=== PATIENT | female | born 1955 | race Caucasian/White ===

== ENCOUNTER 2017-08-18 11:45 | Emergency (ER) | payer OTHER ==
--- OUTSIDE RECORDS SUMMARY | 2017-08-18 11:47 | XMS REPORT | Clinical Summary ---
:1955 Author Organization [facility] Address [address] [place] [address] Care Team Providers Name Role Phone Rob Alonzo MD Primary Care Provider Allergies Active Allergy Reactions Severity Noted Date Comments Morphine 01/16/2016 Diazepam 01/16/2016 Midazolam 01/16/2016 Current Medications Prescription Sig. Disp. Refills Start End Date Status Date omeprazole (PriLOSEC) 20 Take by 3 Active MG capsule mouth once 6 daily. PREMARIN 0.3 mg tablet Take 0.3 mg 3 Active by mouth 6 once daily. clorazepate (TRANXENE) TAKE 1 1 Active 7.5 MG tablet TABLET EVERY 6 DAY NEEDED FOR ANXIETY3 linaclotide (LINZESS) Take 290 mcg Active 290 mcg capsule by mouth daily. magnesium oxide (MAG-OX) Take 400 mg Active 400 mg tablet by mouth daily. ascorbic acid, vitamin Take 1,500 Active C, (vitamin C) 100 MG mg by mouth tablet daily. omega-3 fatty acids Take 300 mg Active (FISH OIL) 300 mg by mouth capsule daily. CHOLECALCIFEROL, VITAMIN Take 2,000 Active D3, (D3-2000 ORAL) Units by mouth daily. multivitamin with Take 1 Active minerals tablet tablet by mouth daily. hydroCHLOROthiazide Take 12.5 mg 3 Active (HYDRODIURIL) 12.5 MG by mouth 7 tablet once daily. potassium chloride Take 10 mEq 0 Active (K-DUR,KLOR-CON) 10 MEQ by mouth 7 CR tablet daily. traMADol (ULTRAM) 50 mg Take 50 mg 1 Active tablet by mouth 2 7 (two) times a day as needed. CREON 12,000-38,000 TAKE ONE 270 capsule 2 Active -60,000 unit CAPSULE BY 8 capsule,delayed MOUTH 3 release(DR/EC) capsule TIMES A DAY WITH A MEAL pancrelipase, Take 1 270 capsule 3 10/12/19 [id number], capsule by 7 17 (CREON) 12,000-38,000 mouth 3 -60,000 unit (three) capsule,delayed times a day release(DR/EC) capsule with meals for 90 days. SUPREP BOWEL PREP KIT 1 bottle at 2 Bottle 0 04/14/20 Discontinued 17.5-3.13-1.6 gram recon 6PM, 1 7 17 soln bottle at 12AM (midnight) ondansetron (ZOFRAN) 4 Take 1 60 tablet 1 02/11/20 MG tablet tablet (4 mg 7 17 total) by mouth every 8 (eight) hours as needed for nausea or vomiting for up to 30 days. cholestyramine Take 1 05/24/19 Discontinued (QUESTRAN) 4 gram packet packet by 18 mouth as needed. chlordiazepoxide-clidini Take 1 60 capsule 0 06/23/19 um (LIBRAX, WITH capsule by 8 18 CLIDINIUM,) 5-2.5 mg per mouth 2 capsule (two) times a day for 30 days. Active Problems Problem Noted Date Right upper quadrant pain 07/26/2017 Left upper quadrant pain 07/26/2017 Epigastric pain 07/26/2017 Slow transit constipation 07/26/2017 History of cholecystectomy 07/26/2017 Essential hypertension 07/26/2017 Splenic artery aneurysm 07/26/2017 Anxiety 07/26/2017 Encounters Date Type Specialty Care Team Description 08/01/2017 Refill Gastroenterology Ky De Guzman MD 07/28/2017 Hospital Radiology Jose Heath Slow transit constipation; Encounter MD Diane Right upper quadrant pain; Left upper quadrant pain; Epigastric pain 07/26/2017 Lab Lab Jose Heath Slow transit constipation; MD Diane Right upper quadrant pain; Left upper quadrant pain; Epigastric pain 07/26/2017 Office Visit Gastroenterology Jose Heath Slow transit constipation (Primary Dx); MD Diane Right upper quadrant pain; Left upper quadrant pain; Epigastric pain; History of cholecystectomy; Splenic artery aneurysm 05/24/2017 Office Visit Gastroenterology Gege, Adenomatous polyp of colon, unspecified part of colon (Primary Dx); Ky Contreras MD Family history of colon cancer; Diverticulosis of large intestine without hemorrhage; Epigastric pain; Pancreatitis, recurrent; Splenic artery aneurysm; Essential hypertension; Nonulcer dyspepsia; Slow transit constipation; Calculus of gallbladder without cholecystitis without obstruction 05/13/2017 Telephone Gastroenterology Linnea Olguin MA 05/06/2017 Telephone Gastroenterology Ky De Guzman MD 05/05/2017 Telephone Gastroenterology Linnea Olguin MA 04/14/2017 Office Visit Gastroenterology Gege, Splenic artery aneurysm ( Primary Dx); Ky Contreras MD Slow transit constipation; Gastroesophageal reflux disease, esophagitis presence not specified; Essential hypertension; History of colon polyps; History of pancreatitis; Family history of colon cancer; Calculus of gallbladder without cholecystitis without obstruction 04/13/2017 Telephone Gastroenterology Doris Haas RN 01/11/2017 Office Visit Gastroenterology [place], Colon polyp (Primary Dx); Ky Contreras MD Calculus of gallbladder without cholecystitis without obstruction; Essential hypertension; Family history of colon cancer; Idiopathic acute pancreatitis without infection or necrosis; Dyspepsia after 08/17/2016 Family History Medical History Relation Name Comments Liver cancer Father Alona Kwong Liver disease Father Alona Kwong Lung cancer Father Alona Colon cancer Mother Herminia Ovarian cancer Mother Herminia Stomach cancer Mother Herminia Kwong Relation Name Status Comments Father Alona Hope Social History Tobacco Use Types Packs/Day Years Used Date Never Smoker Smokeless Tobacco: Never Used Alcohol Use Drinks/Week oz/Week Comments No Sex Assigned at Date Recorded Not on file Last Filed Vital Signs Vital Sign Reading Time Taken Blood Pressure 137/71 05/24/2017 3:23 PM [employer]LTRY [employer]TER Pulse 63 05/24/2017 3:23 PM [employer]OUL[employer] Temperature 36.6 C (97.8 F) 01/11/2017 11:04 AM CDT Respiratory Rate - - Oxygen Saturation - - Inhaled Oxygen Concentration - - Weight 69.9 kg (154 lb) 07/28/2017 12:04 PM CDT Height 167.6 cm (5' 6") 07/28/2017 12:04 PM CDT Body Mass Index 24.86 07/28/2017 12:04 PM CDT Plan of Treatment Date Type Specialty Care Team Description 08/30/2017 Office Visit Gastroenterology Jose Heath MD [address] [facility] [address] [place] [address] Health Maintenance Due Date Last Done Comments PAP SMEAR 1974 COLONOSCOPY 12/10/2003 MAMMOGRAM 12/10/2003 ZOSTER VACCINE 2013 INFLUENZA VACCINE 12/01/[address] Enterography (07/28/2017 1:16 PM) [facility]imen [facility] [address] [place] [address] Narrative EXAMINATION:CT ENTEROGRAPHY CLINICAL HISTORY:K59.01 Slow transit constipation, R10.11 Right upper quadrant pain, abdominal painanorexia and weight loss TECHNIQUE: Multiple axial images of the abdomen and pelvis were obtained during intravenous administration of iodinated contrast. Low density oral contrast was administered (CT enterography protocol). Sagittal and coronal computerized reformatted images were also obtained. Radiation dose reduction technique was utilized. COMPARISON:None. FINDINGS: Abdomen: 1. Bowel loops are not dilated. No areas of bowel wall thickening or abnormal enhancement noted. No extraluminal fluid collections or significant inflammatory changes identified. 2.There has been a cholecystectomy. No focal lesions are noted in the liver , spleen, pancreas, kidneys, or adrenal glands. 3.The abdominal aorta is of normal caliber. There are no enlarged retroperitoneal lymph nodes. Pelvis: 1. No mass, fluid collection, or adenopathy isn't 5 the pelvis. 2.There are no CT findings of acute diverticulitis. IMPRESSION: Unremarkable CT enterography examination. [facility]-[id number] Procedure Note Interface, Radiology Results Incoming - 07/28/2017 3:19 PM CDT EXAMINATION: CT ENTEROGRAPHY CLINICAL HISTORY: K59.01 Slow transit constipation, R10.11 Right upper quadrant pain, abdominal pain anorexia and weight loss TECHNIQUE: Multiple axial images of the abdomen and pelvis were obtained during intravenous administration of iodinated contrast. Low density oral contrast was administered (CT enterography protocol). Sagittal and coronal computerized reformatted images were also obtained. Radiation dose reduction technique was utilized. COMPARISON: None. FINDINGS: Abdomen: 1. Bowel loops are not dilated. No areas of bowel wall thickening or abnormal enhancement noted. No extraluminal fluid collections or significant inflammatory changes identified. 2. There has been a cholecystectomy. No focal lesions are noted in the liver, spleen, pancreas, kidneys, or adrenal glands. 3. The abdominal aorta is of normal caliber. There are no enlarged retroperitoneal lymph nodes. Pelvis: 1. No mass, fluid collection, or adenopathy isn't 5 the pelvis. 2. There are no CT findings of acute diverticulitis. IMPRESSION: Unremarkable CT enterography examination. [facility]-[id number] CBC with platelet and differential (07/26/2017 11:59 AM) Component Value Ref Range WBC 6.4 3.8 - 10.8 Thousand/uL RBC 4.63 3.80 - 5.10 Million/uL HGB 14.4 11.7 - 15.5 g/dL HCT 42.7 35.0 - 45.0 % MCV 92.2 80.0 - 100.0 fL MCH 31.1 27.0 - 33.0 pg MCHC 33.7 32.0 - 36.0 g/dL RDW 12.0 11.0 - 15.0 % Platelet count 305 140 - 400 Thousand/uL MPV 10.1 7.5 - 12.5 fL Neutrophils, absolute 3,334 1,500 - 7,800 cells/uL Lymphocytes, absolute 2,502 850 - 3,900 cells/uL Monocytes, absolute 493 200 - 950 cells/uL Eosinophils, absolute 38 15 - 500 cells/uL Basophils, absolute 32 0 - 200 cells/uL Neutrophils 52.1 % Lymphocytes 39.1 % Monocytes 7.7 % Eosinophils 0.6 % Basophils + RC 0.5 % Specimen Performing Laboratory [facility] CRP high sensitivity (07/26/2017 11:59 AM) Component Value Ref Range CRP, high sensitivity 7.4 (H) mg/L Comment: Higher relative cardiovascular risk according to AHA/CDC guidelines. Consider retesting in 1 to 2 weeks to exclude a benign transient elevation in the baseline CRP value secondary to infection or inflammation. For ages >17 Years: hs-CRP mg/LRisk According to AHA/CDC Guidelines <1.0 Lower relative cardiovascular risk. 1.0-3.0Average relative cardiovascular risk. 3.1-10.0 Higher relative cardiovascular risk. Consider retesting in 1 to 2 weeks to exclude a benign transient elevation in the baseline CRP value secondary to infection or inflammation. >10.0Persistent elevation, upon retesting, may be associated with infection and inflammation. Specimen Performing Laboratory [facility] Comprehensive metabolic panel (07/26/2017 11:59 AM) Component Value Ref Range Glucose 90 65 - 99 mg/dL Comment: Fasting reference interval BUN, whole blood 20 7 - 25 mg/dL Creatinine 0.89 0.50 - 0.99 mg/dL Comment: For patients >49 years of age, the reference limit for Creatinine is approximately 13% higher for people identified as -[place]. EGFR Non-Afr. [place] 69 > OR=60 mL/min/1.73m2 EGFR 80 > OR=60 mL/min/1.73m2 BUN/creatinine ratio NOT APPLICABLE 6 - 22 (calc) Sodium 141 135 - 146 mmol/L Potassium 4.7 3.5 - 5.3 mmol/L Chloride 101 98 - 110 mmol/L CO2 31 20 - 31 mmol/L Calcium 9.8 8.6 - 10.4 mg/dL Protein 7.6 6.1 - 8.1 g/dL Albumin, S 4.7 3.6 - 5.1 g/dL Globulin, total 2.9 1.9 - 3.7 g/dL (calc) Albumin/globulin ratio 1.6 1.0 - 2.5 (calc) Total bilirubin 0.5 0.2 - 1.2 mg/dL Alkaline phosphatase 96 33 - 130 U/L AST 14 10 - 35 U/L ALT 12 6 - 29 U/L Specimen Performing Laboratory [facility] after 08/17/2016 Insurance Payer Benefit Plan / Group Subscriber ID Type Phone Address [facility] xxxxxxxxxxx O Home: [address] [phone] [place], [place] [id number]
[2017-08-18] MEDS ORDERED: FENTANYL CITR 100 MCG/2 ML ONE ×2 (12:40→14:42)
[2017-08-18] MEDS ORDERED: ONDANSETRON 4 MG/2 ML VIAL ONE (12:41)
[2017-08-18 12:56] LABS: Absolute Lymphocytes (CBC) 1.9 K/uL (0.7-4.9); Absolute Monocytes 0.5 K/uL (0.1-1.3); Absolute Neutrophil 3.6 K/uL (1.8-8.0); Basophils % 1.5 % (0-1.3); Eosinophils % 0.5 % (0-4.4); Hematocrit 41.8 % (36.0-45.0); Lymphocytes % 31.2 % (15.3-44.8); MPV 8.7 fL (7.6-11.3); Monocytes % 7.9 % (3.3-12.3); RBC Red Blood Cell Count 4.65 M/uL (3.86-4.86)
[2017-08-18 13:07] LABS: Potassium 3.7 mEq/L (3.6-5.0)
[2017-08-18 13:13] LABS: Albumin 4.5 g/dL (3.2-5.5); Bilirubin Direct 0.1 mg/dL (0-0.2); Bilirubin Total 0.7 mg/dL (0.3-1.2)
--- NOTE | 2017-08-18 16:00 | RAD REPORT ---
EXAM DESCRIPTION: CT - Abdomen Pelvis W Contrast - 08/18/2017 3:32 pm CLINICAL HISTORY: Abdominal pain, fever COMPARISON: April 2017 TECHNIQUE: Biphasic, helical CT imaging of the abdomen and pelvis was performed following 100 ml non -ionic IV contrast. Oral contrast was given. All CT scans are performed using dose optimization technique as appropriate and may include automated exposure control or mA/KV adjustment according to patient size. FINDINGS: No suspicious findings in the lung bases. The liver, spleen, and pancreas show no suspicious findings. Liver shows a mild fatty infiltration pa ttern similar to April study. Cholecystectomy clips are present. No biliary tree dilatation. Symmetric renal function is seen with no hydronephrosis or suspicious renal mass. No pyelonephritis o r acute renal parenchymal process. No acute findings seen in a contracted urinary bladder. Uterus is absent. Ovaries are absent or atrophic. No dilated bowel loops or bowel wall thickening. No diverticulitis, appendicitis or other acute proce ss identifiable. No free air, free fluid or inflammatory stranding. No hernia, mass or bulky lymphad enopathy. No adrenal abnormality. Bony degenerative changes are present. No acute bone finding. IMPRESSION: Contrast enhanced CT abdomen and pelvis showing no acute finding. No abnormality seen t o explain patient's pain and fever pattern. CT findings are not substantially different from April 2017.
--- NOTE | 2017-08-18 16:40 | ER ---
Nurse's Notes [facility] Name: Haley Porter Age: 61 yrs Sex: Female : 1955 Arrival Date: 08/18/2017 Time: 11:46 Bed 16 Private MD: Rob Alonzo Diagnosis: Abdominal and pelvic pain Presentation: 08/18 11:56 Presenting complaint: Patient states: last Wednesday i started having abd pain all over hj and is moving to the back; reports nausea, vomiting, diarrhea; reports fever;. Transition of care: patient was not received from another setting of care. Onset of symptoms was August 18, 2017. Care prior to arrival: None. 11:56 Method Of Arrival: Ambulatory 11:56 Acuity: RADHA 3 15:05 Initial Sepsis Screen: Does the patient meet any 2 criteria? No. Patient's initial aj1 sepsis screen is negative. Does the patient have a suspected source of infection? No. Patient's initial sepsis screen is negative. Triage Assessment: 12:00 General: Appears in no apparent distress. uncomfortable, Behavior is cooperative, hj appropriate for age, crying. Pain: Complains of pain in abdomen. GI: Reports lower abdominal pain, upper abdominal pain, nausea, vomiting. Historical: - Allergies: 12:00 Morphine; hj 12:00 Valium; 12:00 Versed; hj - Home Meds: 12:05 Tramadol Oral [Active]; Zofran Oral [Active]; hydrochlorothiazide Oral [Active]; hj quinalapril [Active]; Clonazepam Oral [Active]; Potassium Chloride Oral [Active]; Premarin Oral [Active]; Ursodiol Oral [Active]; Omeprazole Oral [Active]; Voltaren Oral [Active]; - PMHx: 12:00 Anxiety; Hypertension; Pancreatitis; TMJ; hj - PSHx: 12:00 TMJ; Disc surgery; Bladder suspension; wrist; hj - Immunization history:: Adult Immunizations up to date. - Social history:: Smoking status: unknown. Screenin:34 Abuse screen: Denies threats or abuse. Denies injuries from another. Nutritional aj1 screening: No deficits noted. Tuberculosis screening: No symptoms or risk factors identified. 18:09 Fall Risk None identified. aj1 Assessment: 12:00 GI: Bowel sounds present X 4 quads. 12:34 General: Appears distressed, uncomfortable, Behavior is anxious, crying, restless. aj1 Pain: Complains of pain in abdomen diffusely Pain radiates to back Pain currently is 10 out of 10 on a pain scale. Quality of pain is described as stabbing, Pain began one week ago Is intermittent, Alleviated by nothing. Aggravated by eating, drinking, Noted to be crying, moaning, restless. Neuro: Level of Consciousness is awake, alert, obeys commands, Oriented to person, place, time, situation. Cardiovascular: Patient's skin is warm and dry. Respiratory: Airway is patent Respiratory effort is even, unlabored, Respiratory pattern is regular, symmetrical. GI: Abdomen is flat, non-distended, Bowel sounds present X 4 quads. Abd is soft X 4 quads Abdomen is tender to palpation X 4 quads. Reports nausea, Patient currently denies diarrhea, vomiting. : No signs and/or symptoms were reported regarding the genitourinary system. EENT: No signs and/or symptoms were reported regarding the EENT system. Derm: No signs and/or symptoms reported regarding the dermatologic system. Skin is pink, warm \T\ dry. normal. Musculoskeletal: No signs and/or symptoms reported regarding the musculoskeletal system. Circulation, motion, and sensation intact. 13:54 Reassessment: Patient appears in no apparent distress at this time. No changes from aj1 previously documented assessment. Patient and/or family updated on plan of care and expected duration. Pain level reassessed. Patient is alert, oriented x 3, equal unlabored respirations, skin warm/dry/pink. 14:40 Reassessment: Patient states that her pain has returned and is getting worse. Notified aj1 ELPIDIO Alvarez Order received. 15:04 Reassessment: Patient appears in no apparent distress at this time. No changes from aj1 previously documented assessment. Patient and/or family updated on plan of care and expected duration. Pain level reassessed. Patient is alert, oriented x 3, equal unlabored respirations, skin warm/dry/pink. Patient states that she is feeling better. 16:00 Reassessment: Patient appears in no apparent distress at this time. No changes from aj1 previously documented assessment. Patient and/or family updated on plan of care and expected duration. Pain level reassessed. Patient is alert, oriented x 3, equal unlabored respirations, skin warm/dry/pink. 16:55 Reassessment: Patient discharge pending finishing IV fluids. aj1 17:03 Reassessment: Patient appears in no apparent distress at this time. No changes from 1 previously documented assessment. Patient and/or family updated on plan of care and expected duration. Pain level reassessed. Patient is alert, oriented x 3, equal unlabored respirations, skin warm/dry/pink. 17:51 Reassessment: Patient appears in no apparent distress at this time. No changes from aj1 previously documented assessment. Patient and/or family updated on plan of care and expected duration. Pain level reassessed. Patient is alert, oriented x 3, equal unlabored respirations, skin warm/dry/pink. Vital Signs: 12:01 BP 140 / 76; Pulse 89; Resp 18; Temp 98.2; Pulse Ox 98% on R/A; Weight 68.04 kg; Height 5 ft. 6 in. (167.64 cm); Pain 10/10; 12:34 BP 144 / 96; Pulse 86; Resp 20; Pulse Ox 98% on R/A; aj1 13:44 BP 128 / 74; Pulse 65; Resp 20; Pulse Ox 98% ; 5 15:06 BP 130 / 73; Pulse 59; Resp 16; Pulse Ox 100% on R/A; aj1 16:00 BP 130 / 73; Pulse 61; Resp 18; Pulse Ox 98% on R/A; aj1 17:03 BP 126 / 75; Pulse 53; Resp 18; Pulse Ox 100% on R/A; aj1 12:01 Body Mass Index 24.21 (68.04 kg, 167.64 cm) ED Course: 11:46 Patient arrived in ED. mr 11:46 Rob Alonzo MD is Private Physician. mr 11:58 Triage completed. hj 12:00 Arm band placed on right wrist. hj 12:20 Marilee Talbot RN is Primary Nurse. aj1 12:26 Gray Ovalle PA is PHCP. jr8 12:26 Cisco Wayne MD is Attending Physician. jr8 12:34 Patient has correct armband on for positive identification. Bed in low position. Call [facility] light in reach. Side rails up X 1. 12:34 No provider procedures requiring assistance completed. Initial lab(s) drawn, by , ajSol sent to lab. Inserted saline lock: 22 gauge in right forearm, using aseptic technique. Blood collected. 15:[address] via wheelchair. jj2 15:27 CT completed. Patient tolerated procedure well. Patient moved back from CT. jj2 15:32 CT Abd/Pelvis - W/Contrast In Process Unspecified. EDMS 16:39 Rob Alonzo MD is Referral Physician. jr8 17:52 IV discontinued, intact, bleeding controlled, No redness/swelling at site. Pressure aj1 dressing applied. Administered Medications: 12:46 Drug: fentaNYL (PF) 75 mcg Route: IVP; Site: right forearm; aj1 15:17 Follow up: Response: No adverse reaction aj1 12:48 Drug: Zofran 4 mg Route: IVP; Site: right forearm; aj1 15:18 Follow up: Response: No adverse reaction aj1 14:45 Drug: fentaNYL (PF) 50 mcg Route: IVP; Site: right antecubital; aj1 15:18 Follow up: Response: No adverse reaction aj1 16:54 Drug: NS 0.9% 500 ml Route: IV; Rate: bolus; Site: right forearm; aj1 18:07 Follow up: IV Status: Completed infusion; IV Intake: 500ml aj1 Intake: 18:07 IV: 500ml; Total: 500ml. aj1 Outcome: 16:39 Discharge ordered by . jr8 18:08 Discharged to home ambulatory. aj1 18:08 Condition: good 18:08 Discharge instructions given to patient, Instructed on discharge instructions, follow up and referral plans. no drinking with medication, no driving heavy equipment, medication usage, Demonstrated understanding of instructions, follow-up care, medications, Prescriptions given X 1. 18:10 Patient left the ED. aj1 Signatures: Dispatcher [employer] EDID Marilee Talbot RN RN aj1 Rivera, Maria Cottrell, Gray Llamas PA PA jr8 Joaquin, Henry, RN RN hj Martinez, Maria [facility] Corrections: (The following items were deleted from the chart) 12:01 12:00 General: Appears in no apparent distress. uncomfortable, Behavior is calm, hj cooperative, appropriate for age, hj 12:02 12:01 68.04 kg; Height 5 ft. 6 in.; BMI: 24.2; Pain 10/10; hj hj
--- NOTE | 2017-08-18 16:40 | EDPHYS ---
Physician Documentation [facility] Name: Haley Porter Age: 61 yrs Sex: Female : 1955 Arrival Date: 08/18/2017 Time: 11:46 Bed 16 Private MD: Rob Alonzo ED Physician Cisco Wayne HPI: 08/18 16:33 This 61 yrs old Female presents to ER via Ambulatory with complaints of jr8 Abdominal Pain, Back Pain. 16:33 The patient presents with abdominal pain in the lower abdomen. Onset: The jr8 symptoms/episode began/occurred acutely, yesterday. The symptoms radiate to back. Associated signs and symptoms: Pertinent positives: nausea, vomiting, and diarrhea. The symptoms are described as vague. Modifying factors: The symptoms are alleviated by nothing, the symptoms are aggravated by food. Severity of pain: At its worst the pain was moderate in the emergency department the pain is unchanged. The patient has experienced similar episodes in the past, chronically. The patient has been recently seen by a physician:. Patient was at PCP's office earlier today in pain from abdomen. Was sent to ED for further evaluation. Stated that she has had abdominal pain for about 6 years. Has seen a couple of GI doctors with no findings. Suppose to see another GI for second opinion on Wednesday but could not control her pain . Historical: - Allergies: 12:00 Morphine; hj 12:00 Valium; hj 12:00 Versed; hj - Home Meds: 12:05 Tramadol Oral [Active]; Zofran Oral [Active]; hydrochlorothiazide Oral [Active]; hj quinalapril [Active]; Clonazepam Oral [Active]; Potassium Chloride Oral [Active]; Premarin Oral [Active]; Ursodiol Oral [Active]; Omeprazole Oral [Active]; Voltaren Oral [Active]; - PMHx: 12:00 Anxiety; Hypertension; Pancreatitis; TMJ; hj - PSHx: 12:00 TMJ; Disc surgery; Bladder suspension; wrist; hj - Immunization history:: Adult Immunizations up to date. - Social history:: Smoking status: unknown. ROS: 16:33 Eyes: Negative for injury, pain, redness, and discharge, ENT: Negative for injury, jr8 pain, and discharge, Neck: Negative for injury, pain, and swelling, Cardiovascular: Negative for chest pain, palpitations, and edema, Respiratory: Negative for shortness of breath, cough, wheezing, and pleuritic chest pain, Back: Negative for injury and pain, MS/Extremity: Negative for injury and deformity, Skin: Negative for injury, rash, and discoloration, Neuro: Negative for headache, weakness, numbness, tingling, and seizure. 16:33 Abdomen/GI: Positive for abdominal pain, nausea, vomiting, and diarrhea, Negative for abdominal cramps, abdominal distension, anorexia, dysphagia, hematemesis, black/tarry stool, rectal pain, rectal bleeding, bowel incontinence, flatulence. Exam: 16:33 Eyes: Pupils equal round and reactive to light, extra-ocular motions intact. Lids and jr8 lashes normal. Conjunctiva and sclera are non-icteric and not injected. Cornea within normal limits. Periorbital areas with no swelling, redness, or edema. ENT: Nares patent. No nasal discharge, no septal abnormalities noted. Tympanic membranes are normal and external auditory canals are clear. Oropharynx with no redness, swelling, or masses, exudates, or evidence of obstruction, uvula midline. Mucous membranes moist. Neck: Trachea midline, no thyromegaly or masses palpated, and no cervical lymphadenopathy. Supple, full range of motion without nuchal rigidity, or vertebral point tenderness. No Meningismus. Cardiovascular: Regular rate and rhythm with a normal S1 and S2. No gallops, murmurs, or rubs. Normal PMI, no JVD. No pulse deficits. Respiratory: Lungs have equal breath sounds bilaterally, clear to auscultation and percussion. No rales, rhonchi or wheezes noted. No increased work of breathing, no retractions or nasal flaring. Back: No spinal tenderness. No costovertebral tenderness. Full range of motion. Skin: Warm, dry with normal turgor. Normal color with no rashes, no lesions, and no evidence of cellulitis. MS/ Extremity: Pulses equal, no cyanosis. Neurovascular intact. Full, normal range of motion. Neuro: Awake and alert, GCS 15, oriented to person, place, time, and situation. Cranial nerves II-XII grossly intact. Motor strength 5/5 in all extremities. Sensory grossly intact. Cerebellar exam normal. Normal gait. 16:33 Abdomen/GI: Inspection: abdomen appears normal, Bowel sounds: active, all quadrants, Palpation: soft, in all quadrants, mild abdominal tenderness, in the right lower quadrant and mid abdomen , mass, is not appreciated, rebound tenderness, is not appreciated, voluntary guarding, is not appreciated, involuntary guarding, is not appreciated, no appreciated organomegaly, Indicators: McBurney's point is not tender, Lainez's sign is negative, Rovsing's sign is negative, Liver: no appreciated palpable abnormalities, tenderness, is not appreciated. Vital Signs: 12:01 BP 140 / 76; Pulse 89; Resp 18; Temp 98.2; Pulse Ox 98% on R/A; Weight 68.04 kg; Height 5 ft. 6 in. (167.64 cm); Pain 10/10; 12:34 BP 144 / 96; Pulse 86; Resp 20; Pulse Ox 98% on R/A; aj1 13:44 BP 128 / 74; Pulse 65; Resp 20; Pulse Ox 98% ; mh5 15:06 BP 130 / 73; Pulse 59; Resp 16; Pulse Ox 100% on R/A; aj1 16:00 BP 130 / 73; Pulse 61; Resp 18; Pulse Ox 98% on R/A; aj1 17:03 BP 126 / 75; Pulse 53; Resp 18; Pulse Ox 100% on R/A; aj1 12:01 Body Mass Index 24.21 (68.04 kg, 167.64 cm) MDM: 12:26 Patient medically screened. [facility] 16:38 Data reviewed: vital signs, nurses notes, lab test result(s), radiologic studies, CT jr scan, and as a result, I will discharge patient. Data interpreted: Pulse oximetry: on room air is 100 %. Interpretation: normal. 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 ED course: Patient with normal vital signs. In no acute distress. No acute abdomen noted on physical exam. After talking with Dr. Alonzo after results recommended discharge and she can follow up with new GI on Wednesday . 08/18 12:29 Order name: Basic Metabolic Panel; Complete Time: 13:52 jr8 08/18 12:29 Order name: CBC with Diff; Complete Time: 13:52 08/18 12:29 Order name: Creatinine for Radiology; Complete Time: 13:52 08/18 12:29 Order name: Hepatic Function; Complete Time: 13:52 08/18 12:29 Order name: Lipase; Complete Time: 13:52 08/18 15:14 Order name: CT Abd/Pelvis - W/Contrast; Complete Time: 16:08 08/18 12:29 Order name: IV Saline Lock; Complete Time: 12:33 08/18 12:29 Order name: Labs collected and sent; Complete Time: 12:33 Administered Medications: 12:46 Drug: fentaNYL (PF) 75 mcg Route: IVP; Site: right forearm; aj1 15:17 Follow up: Response: No adverse reaction aj1 12:48 Drug: Zofran 4 mg Route: IVP; Site: right forearm; aj1 15:18 Follow up: Response: No adverse reaction aj1 14:45 Drug: fentaNYL (PF) 50 mcg Route: IVP; Site: right antecubital; aj1 15:18 Follow up: Response: No adverse reaction aj1 16:54 Drug: NS 0.9% 500 ml Route: IV; Rate: bolus; Site: right forearm; aj1 18:07 Follow up: IV Status: Completed infusion; IV Intake: 500ml aj Disposition: 08/18/17 16:39 Discharged to Home. Impression: Abdominal and pelvic pain. - Condition is Stable. - Discharge Instructions: Abdominal Pain, Adult. - Prescriptions for Tylenol- Codeine #3 300-30 mg Oral Tablet - take 2 tablet by ORAL route every 6 hours As needed; 30 tablet. - Medication Reconciliation Form, Thank You Letter, Antibiotic Education, Prescription Opioid Use form. - Follow up: Rob Alonzo MD; When: 10 - 14 days; Reason: Recheck today's complaints, Continuance of care, Re-evaluation by your physician. - Problem is new. - Symptoms have improved. Addendum: 08/21/2017 06:17 Co-signature as Attending Physician, Cisco Wayne MD Available for consultation at p s1 all times. . Signatures: Dispatcher [employer] EDMarilee Corral RN RN aj1 Gray Ovalle PA PA jr8 Alec Rodas RN RN Cisco Dumas MD MD ps1
[2017-08-18] MEDS ORDERED: NA CHLORIDE 0.9% 500 ML ONE (16:45)
[2017-08-18 18:16] VITALS: TEMP 98.2
[2017-08-18 18:22] VITALS: BP 126/75; O2SAT 100
== END 2017-08-18 18:10 | disposition home or self-care (01) ==
LOC: ER 11:45
DX: R10.2 Pelvic and perineal pain (principal); I10 Essential (primary) hypertension; F41.9 Anxiety disorder, unspecified; Z88.5 Allergy status to narcotic agent; Z88.8 Allergy status to other drugs, medicaments and biological substances
CPT/HCPCS: 36415; 74177; 80048; 80076; 83690; 85025; 99284; J2405; J3010; Q9967

== ENCOUNTER 2017-09-30 00:47 | Emergency (ER) | payer OTHER ==
--- OUTSIDE RECORDS SUMMARY | 2017-09-30 00:49 | XMS REPORT | Clinical Summary ---
:1955 Author Organization [facility] Address [address] [place] [address] Care Team Providers Name Role Phone Rob [...] TABLET EVERY 6 DAY NEEDED FOR ANXIETY3 magnesium oxide (MAG-OX) Take 400 mg Active [...] MEQ by mouth 7 CR tablet daily. CREON 12,000-38,000 TAKE ONE 270 capsule 2 Active -60,000 unit CAPSULE BY 8 capsule,delayed MOUTH 3 release(DR/EC) capsule TIMES A DAY WITH A MEAL acetaminophen-codeine Take 1-2 Active (TYLENOL WITH CODEINE tablets by #4) 300-60 mg per tablet mouth every 6 (six) hours as needed for moderate pain. amitriptyline (ELAVIL) Take 1 30 tablet 11 08/31/19 Active 10 MG tablet tablet (10 8 19 mg total) by mouth nightly. plecanatide (TRULANCE) 3 Take 1 30 tablet 3 08/31/19 Active mg tablet tablet (3 mg 8 19 total) by mouth daily. Can be taken with or without food. linaclotide (LINZESS) Take 290 mcg 08/31/19 Discontinued 290 mcg capsule by mouth 18 daily. pancrelipase, Take 1 270 capsule 3 10/12/19 axvxad-zuedpjtr-vzijnrp, capsule by 7 17 (CREON) 12,000-38,000 mouth [...] packet packet by 18 mouth as needed. traMADol (ULTRAM) 50 mg Take 50 mg 1 08/31/19 Discontinued tablet by mouth 2 7 18 (two) times a day as needed. chlordiazepoxide-clidini Take 1 60 capsule 0 06/23/19 um (LIBRAX, WITH capsule by 8 18 CLIDINIUM,) 5-2.5 mg per mouth 2 capsule (two) times a day for 30 days. Active Problems Problem Noted Date Generalized abdominal pain 08/30/2017 Right upper quadrant pain 07/26/2017 Slow transit constipation 07/26/2017 History of cholecystectomy 07/26/2017 Essential hypertension 07/26/2017 Splenic artery aneurysm 07/26/2017 Anxiety 07/26/2017 Resolved Problems Problem Noted Date Resolved Date Left upper quadrant pain 07/26/2017 08/30/2017 Epigastric pain 07/26/2017 08/30/2017 Encounters Date Type Specialty Care Team Description 09/23/2017 [facility] Radiology Jose Heath Elevated C-reactive Encounter MD Diane protein (CRP) 09/23/2017 Orders Only Jose Arreola MD 09/23/2017 Telephone GastroenterJose Almaguer MD 09/21/2017 Orders Only GastroenterRobert Aguilera LVN 09/21/2017 Orders Only Jose Arreola Elevated C-reactive MD Diane protein (CRP) (Primary Dx) 09/07/2017 Orders Only Jose Arreola Elevated C-reactive MD Diane protein (CRP) (Primary Dx) 08/30/2017 Lab Lab Jose Heath Generalized abdominal pain; MD Diane Right upper quadrant pain 08/30/2017 Office Visit GastroenterJose Almaguer Slow transit constipation (Primary Dx); MD Diane Generalized abdominal pain; History of cholecystectomy; Right upper quadrant pain; Anxiety 08/19/2017 Telephone GastroenterRobert Aguilera LVN 08/01/2017 Refill Gastroenterology Ky De Guzman MD 07/28/2017 [facility] Radiology Jose Heath Slow transit constipation; Encounter MD Diane Right upper quadrant pain; Left upper quadrant pain; Epigastric pain 07/26/2017 Lab Lab Jose Heath Slow transit constipation; MD Diane Right upper quadrant pain; Left upper quadrant pain; Epigastric pain 07/26/2017 Office Visit Jose Arreola Slow transit constipation (Primary Dx); MD Diane Right upper quadrant pain; Left upper quadrant pain; Epigastric pain; History of cholecystectomy; Splenic artery aneurysm 05/24/2017 Office Visit Cisco De Guzman, Adenomatous polyp of colon, unspecified part of [...] pancreatitis without infection or necrosis; Dyspepsia after 09/29/2016 Family History Medical History Relation Name Comments Liver cancer Father Alona Kwong Liver disease Father Alona Kwong Lung cancer Father Alona Colon cancer Mother Herminia Ovarian cancer Mother Herminia Stomach cancer Mother Herminia Kwong Relation Name Status Comments Father Alona Mother Herminia Social History Tobacco Use Types Packs/Day Years Used Date Never Smoker Smokeless Tobacco: Never Used Alcohol Use Drinks/Week oz/Week Comments No Sex Assigned at Date Recorded Not on file Last Filed Vital Signs Vital Sign Reading Time Taken Blood Pressure 152/79 08/30/2017 9:05 AM CDT Pulse 62 08/30/2017 9:05 AM CDT Temperature 36.6 C (97.8 F) 08/30/2017 9:05 AM CDT Respiratory Rate - - Oxygen Saturation - - Inhaled Oxygen Concentration - - Weight 66.7 kg (147 lb) 08/30/2017 9:05 AM CDT Height 167.6 cm (5' 6") 08/30/2017 9:05 AM CDT Body Mass Index 23.73 08/30/2017 9:05 AM CDT Plan of Treatment Date Type Specialty Care Team Description 10/26/2017 Office Visit Gastroenterology Jose Heath MD [address] [facility] [address] [place] [id number] Health Maintenance Due Date Last Done Comments CERVICAL CANCER SCREENING 1974 BREAST CANCER SCREENING 12/10/2003 COLON CANCER SCREENING 12/10/2003 SHINGRIX VACCINE (#1) 12/10/2003 ZOSTER VACCINE 2013 INFLUENZA VACCINE 12/01/2017 Results XR Chest 2 Vw (09/23/2017 2:52 PM) Specimen Performing Laboratory [facility] [address] [place] [address] Narrative EXAMINATION:XR CHEST 2 VW CLINICAL HISTORY: R79.82 Elevated C-reactive protein (CRP), chest pain elevated CRP COMPARISON:None IMPRESSION: No active disease in the chest. Lungs are clear. Cardiomediastinal silhouette is within normal limits. No effusion or pneumothorax noted. There is hardware in the cervical spine. There are spondylotic changes in the thoracic spine. [facility]-[id number] Procedure Note Interface, Radiology Results Incoming - 09/23/2017 2:57 PM CDT EXAMINATION: XR CHEST 2 VW CLINICAL HISTORY: R79.82 Elevated C-reactive protein (CRP), chest pain elevated CRP COMPARISON: None IMPRESSION: No active disease in the chest. Lungs are clear. Cardiomediastinal silhouette is within normal limits. No effusion or pneumothorax noted. There is hardware in the cervical spine. There are spondylotic changes in the thoracic spine. [facility]-[id number] ARLENE SCREEN W IFA W REFLEX TO TITER (09/23/2017 1:28 PM) Component Value Ref Range ARLENE screen NEGATIVE NEGATIVE Comment: ARLENE IFA is a first line screen for detecting the presence of up to approximately 150 autoantibodies in various autoimmune diseases. A negative ARLENE IFA result suggests ARLENE-associated autoimmune diseases are not present at this time. Visit Physician FAQs for interpretation of all antibodies in the [place], prevalence, and association with diseases at http://education.Phenomix/ faq/APF622 Specimen Performing Laboratory [facility] Narrative FASTING:NO FASTING: NO CRP high sensitivity (09/15/2017 8:19 AM)Only the most recent of3 resultswithin the time period is included. Component Value Ref Range CRP, high sensitivity 9.6 (H) mg/L Comment: Higher relative cardiovascular risk [...] and inflammation. Specimen Performing Laboratory [facility] Narrative FASTING:YES FASTING: YES Cortisol level, AM (08/30/2017 9:54 AM) Component Value Ref Range Cortisol, AM 15.0 mcg/dL Comment: Reference Range 8 a.m. (7-9 a.m.) Specimen: 4.0-22.0 Specimen Performing Laboratory [facility] Chromogranin A (08/30/2017 9:54 AM) Component Value Ref Range Chromogranin A 124 25 - 140 ng/mL Comment: This test was performed using a laboratory developed DANICA method. Values obtained with different assay methods cannot be used interchangeably. Chromogranin A levels, regardless of value, should not be interpreted as absolute evidence of the presence or absence of disease. This test was developed and its analytical performance characteristics have been determined by [facility]. It has not been cleared or approved by FDA. This assay has been validated pursuant to the CLIA regulations and is used for clinical purposes. Specimen Performing Laboratory [facility] CT Enterography (07/28/2017 1:16 PM) Specimen Performing Laboratory [address] [address] Narrative EXAMINATION:CT ENTEROGRAPHY CLINICAL HISTORY:K59.01 Slow transit [...] acute diverticulitis. IMPRESSION: Unremarkable CT enterography examination. [facility]-[id number] Procedure Note [facility], Radiology Results Incoming - 07/28/2017 3:19 PM [...] acute diverticulitis. IMPRESSION: Unremarkable CT enterography examination. [facility]-[id number] CBC with platelet and differential (07/26/2017 11:59 [...] 0.5 % Specimen Performing Laboratory [facility] Comprehensive metabolic panel (07/26/2017 11:59 AM) Component Value Ref Range Glucose 90 65 - 99 mg/dL Comment: Fasting reference interval BUN, whole blood 20 7 - 25 mg/dL Creatinine 0.89 0.50 - 0.99 mg/dL Comment: For patients >49 years of age, the reference limit for Creatinine is approximately 13% higher for people identified as -Gibral[place]arian. EGFR Non-Afr. [place]arian 69 > OR=60 mL/min/1.73m2 EGFR 80 > [...] U/L Specimen Performing Laboratory [facility] after 09/29/2016 Insurance Payer Benefit Plan / Group Subscriber ID Type Phone Address [facility] xxxxxxxxxxx O Home: [place] ZAFAR [phone] [place], [place] [phone]
[2017-09-30] MEDS ORDERED: MAGNE/ALUM HYDROXD 30 ML UCUP ONE (01:12)
[2017-09-30] MEDS ORDERED: LIDOCAINE VISCOUS 2% SOLN 15 ML UDC ONE (01:12)
[2017-09-30] MEDS ORDERED: MEPERIDINE HCL 50 MG/ML AMP ONE ×2 (01:17→03:36)
[2017-09-30] MEDS ORDERED: ONDANSETRON 4 MG/2 ML VIAL ONE (01:17)
[2017-09-30 01:42] LABS: Absolute Lymphocytes (CBC) 2.8 K/uL (0.7-4.9); Absolute Monocytes 0.7 K/uL (0.1-1.3); Absolute Neutrophil 2.8 K/uL (1.8-8.0); Basophils % 0.5 % (0-1.3); Eosinophils % 1.7 % (0-4.4); Hematocrit 38.7 % (36.0-45.0); Lymphocytes % 43.3 % (15.3-44.8); MCH 30.9 pg (27.0-35.0); MCV 93.4 fL (80-100); MPV 8.5 fL (7.6-11.3); Monocytes % 10.5 % (3.3-12.3); RBC Red Blood Cell Count 4.14 M/uL (3.86-4.86)
[2017-09-30 01:51] LABS: Bicarbonate 28 mEq/L (21-31); Glucose Level 169 mg/dL (65-120); Lipase 26 U/L (22-51); Potassium 3.2 mEq/L (3.6-5.0); Sodium Level 138 mEq/L (135-145)
[2017-09-30 01:58] LABS: ALT/SGPT 24 IU/L (10-60); AST/SGOT 26 IU/L (10-42); Albumin 4.1 g/dL (3.2-5.5); Alkaline Phosphatase 62 IU/L (42-121); BUN Blood Urea Nitrogen 17 mg/dL (6-20); Bilirubin Direct < 0.1 mg/dL (0-0.2); Bilirubin Total 0.6 mg/dL (0.3-1.2); Protein, Total 6.6 g/dL (6.0-8.3)
--- NOTE | 2017-09-30 03:33 | ER ---
Nurse's Notes [facility] Name: Haley Porter Age: 61 yrs Sex: Female : 1955 Arrival Date: 09/30/2017 Time: 00:48 Bed 5 Private MD: Diagnosis: Upper abdominal pain, unspecified Presentation: 09/30 01:02 Presenting complaint: Patient states: I've had chronic stomach problems for 6 years and tl2 no one can ever tell me what's wrong. Report RUQ pain that feels like a knife stabbing through to her back. Reports nausea and pain after eating. Transition of care: patient was not received from another setting of care. Onset of symptoms was September 30, 2017. Risk Assessment: Do you want to hurt yourself or someone else? Patient reports no desire to harm self or others. Initial Sepsis Screen: Does the patient meet any 2 criteria? No. Patient's initial sepsis screen is negative. Does the patient have a suspected source of infection? No. Patient's initial sepsis screen is negative. Care prior to arrival: None. 01:02 Method Of Arrival: Ambulatory tl2 01:02 Acuity: RADHA 3 tl2 Triage Assessment: 01:05 General: Appears in no apparent distress. uncomfortable, Behavior is anxious, crying. tl2 Pain: Complains of pain in right upper quadrant Pain radiates to back Pain currently is 10 out of 10 on a pain scale. Quality of pain is described as sharp, stabbing, Aggravated by eating, drinking. GI: Abdomen is flat, non-distended, Abd is soft Abdomen is tender to palpation in right upper quadrant. Historical: - Allergies: 01:05 Morphine; tl2 01:05 Valium; tl2 01:05 Versed; tl2 - Home Meds: 01:05 Hydrochlorothiazide Oral [Active]; Omeprazole Oral [Active]; Premarin Oral [Active]; tl2 quinalapril [Active]; Clonazepam Oral [Active]; Potassium Chloride Oral [Active]; Tramadol Oral [Active]; Ursodiol Oral [Active]; Voltaren Oral [Active]; Zofran Oral [Active]; gabapentin 100 mg oral cap 3 caps 3 times per day [Active]; - PMHx: 01:05 Anxiety; Hypertension; Pancreatitis; TMJ; tl2 - PSHx: 01:05 Cholecystectomy; tl2 - Immunization history:: Adult Immunizations up to date. - Social history:: Smoking status: Patient/guardian denies using tobacco. - Family history:: not pertinent. - Ebola Screening: : No symptoms or risks identified at this time. - Hospitalizations: : No recent hospitalization is reported. Screenin:06 Abuse screen: Denies threats or abuse. Nutritional screening: No deficits noted. tl2 Tuberculosis screening: No symptoms or risk factors identified. Fall Risk None identified. Assessment: 01:00 General: Appears uncomfortable, Behavior is crying. Pain: Complains of pain in right lp1 upper quadrant Pain radiates to back Pain currently is 10 out of 10 on a pain scale. Quality of pain is described as sharp, stabbing. Neuro: Level of Consciousness is awake, alert, obeys commands, Oriented to person, place, time, situation. Cardiovascular: Patient's skin is warm and dry. Respiratory: Respiratory effort is even, unlabored, Respiratory pattern is regular, Breath sounds are clear bilaterally. GI: Abdomen is non-distended, Bowel sounds present X 4 quads. Abdomen is tender to palpation in right upper quadrant Reports upper abdominal pain, nausea, Patient currently denies constipation, diarrhea. : No signs and/or symptoms were reported regarding the genitourinary system. EENT: No signs and/or symptoms were reported regarding the EENT system. Derm: Skin is pink, warm \T\ dry. Musculoskeletal: Circulation, motion, and sensation intact. 01:15 Reassessment: CT notified of patient completing oral contrast at this time. lp1 02:30 Reassessment: Patient resting, eyes closed, respirations unlabored. lp1 03:30 Reassessment: Patient states pain returning at this time; Provider notified. lp1 Vital Signs: 01:05 BP 160 / 85; Pulse 74; Resp 18; Temp 99.2(O); Pulse Ox 96% on R/A; Weight 72.57 kg; tl2 Height 5 ft. 6 in. (167.64 cm); Pain 10/10; 02:00 BP 124 / 71; Pulse 64; Resp 18; Pulse Ox 97% on R/A; lp1 02:30 BP 118 / 59; Pulse 60; Resp 18; Pulse Ox 98% on R/A; lp1 03:30 BP 124 / 71; Pulse 58; Resp 16; Pulse Ox 97% on R/A; lp1 01:05 Body Mass Index 25.82 (72.57 kg, 167.64 cm) tl2 ED Course: 00:48 Patient arrived in ED. ds1 00:50 Jatin Greenberg MD is Attending Physician. rn 01:04 Triage completed. tl2 01:05 Arm band placed on right wrist. tl2 01:05 Inserted saline lock: 20 gauge in right forearm, using aseptic technique. Blood lp1 collected. 01:06 Patient has correct armband on for positive identification. Placed in gown. Bed in low tl2 position. Call light in reach. Side rails up X 1. Adult w/ patient. 01:21 Asiya Hernandez RN is Primary Nurse. lp1 02:[address] via wheelchair. lp1 03:02 CT completed. Patient tolerated procedure well. Patient moved back from CT. kw1 03:08 CT Abd/Pelvis - W/Contrast In Process Unspecified. EDMS 03:46 No provider procedures requiring assistance completed. lp1 04:11 IV discontinued, No redness/swelling at site. Pressure dressing applied. lp1 Administered Medications: 01:22 Drug: Zofran 4 mg Route: IVP; Site: right forearm; lp1 02:14 Follow up: Response: Nausea is decreased lp1 01:22 Drug: GI Cocktail without - (Maalox Suspension 30 ml, Lidocaine Liquid 2 % 15 lp1 ml) Route: PO; 02:14 Follow up: Response: No adverse reaction lp1 01:22 Drug: Demerol 50 mg Route: IVP; Site: right forearm; lp1 02:14 Follow up: Response: Pain is decreased lp1 03:45 Drug: Demerol 50 mg Route: IVP; Site: right forearm; lp1 04:12 Follow up: Response: Pain is decreased lp1 Outcome: 03:33 Discharge ordered by . rn 04:11 Discharged to home ambulatory, with significant other. lp1 04:11 Condition: stable 04:11 Discharge instructions given to patient, significant other, Instructed on discharge instructions, follow up and referral plans. Demonstrated understanding of instructions, follow-up care. 04:12 Patient left the ED. lp1 Signatures: Dispatcher [facility] Swapna Fung ds1 Jatin Greenberg MD MD rn Asiya Hernandez RN RN lp1 Joanne Yao RN RN tl2 Pricila Louise [facility]
--- NOTE | 2017-09-30 03:34 | EDPHYS ---
Physician Documentation [facility] Name: Haley Porter Age: 61 yrs Sex: Female : 1955 Arrival Date: 09/30/2017 Time: 00:48 Bed 5 Private MD: ED Physician Jatin Greenberg HPI: 09/30 01:00 This 61 yrs old Female presents to ER via Unassigned with complaints of rn Abdominal Pain. 01:00 The patient presents with abdominal pain in the upper abdomen. Onset: The rn symptoms/episode began/occurred at an unknown time. The symptoms do not radiate. Severity of pain: At its worst the pain was moderate in the emergency department the pain is unchanged. The patient has experienced similar episodes in the past, chronically. The patient has been recently seen at the [facility] Emergency Department. Reports 6 years of abd pain, states daily, worse if eats certain foods, has seen multiple GI doctors in past as well as pcp, no clear diagnosis, on antacids, no fever, + nausea and vomiting, states worse today when ate chex and ice cream. Pain identical to previous episodes. . Historical: - Allergies: 01:05 Morphine; tl2 01:05 Valium; tl2 01:05 Versed; tl2 - Home Meds: 01:05 Hydrochlorothiazide Oral [Active]; Omeprazole Oral [Active]; Premarin Oral [Active]; tl2 quinalapril [Active]; Clonazepam Oral [Active]; Potassium Chloride Oral [Active]; Tramadol Oral [Active]; Ursodiol Oral [Active]; Voltaren Oral [Active]; Zofran Oral [Active]; gabapentin 100 mg oral cap 3 caps 3 times per day [Active]; - PMHx: 01:05 Anxiety; Hypertension; Pancreatitis; TMJ; tl2 - PSHx: 01:05 Cholecystectomy; tl2 - Immunization history:: Adult Immunizations up to date. - Social history:: Smoking status: Patient/guardian denies using tobacco. - Family history:: not pertinent. - Ebola Screening: : No symptoms or risks identified at this time. - Hospitalizations: : No recent hospitalization is reported. ROS: 01:00 Constitutional: Negative for fever, chills, and weight loss, Eyes: Negative for injury, rn pain, redness, and discharge, Cardiovascular: Negative for chest pain, palpitations, and edema, Respiratory: Negative for shortness of breath, cough, wheezing, and pleuritic chest pain, Abdomen/GI: Negative for diarrhea, and constipation, MS/Extremity: Negative for injury and deformity, Skin: Negative for injury, rash, and discoloration, Neuro: Negative for headache, weakness, numbness, tingling, and seizure. Exam: 01:00 Constitutional: This is a well developed, well nourished patient who is awake, alert, rn crying Head/Face: Normocephalic, atraumatic. Eyes: Pupils equal round and reactive to light, extra-ocular motions intact. Lids and lashes normal. Conjunctiva and sclera are non-icteric and not injected. Cornea within normal limits. Periorbital areas with no swelling, redness, or edema. Cardiovascular: Regular rate and rhythm with a normal S1 and S2. No gallops, murmurs, or rubs. Normal PMI, no JVD. No pulse deficits. Respiratory: Lungs have equal breath sounds bilaterally, clear to auscultation and percussion. No rales, rhonchi or wheezes noted. No increased work of breathing, no retractions or nasal flaring. Abdomen/GI: soft, + mild epigastric and ruq tenderness, no rebound MS/ Extremity: Pulses equal, no cyanosis. Neurovascular intact. Full, normal range of motion. Equal circumference. Neuro: Awake and alert, GCS 15, oriented to person, place, time, and situation. Cranial nerves II-XII grossly intact. Motor strength 5/5 in all extremities. Sensory grossly intact. Vital Signs: 01:05 BP 160 / 85; Pulse 74; Resp 18; Temp 99.2(O); Pulse Ox 96% on R/A; Weight 72.57 kg; tl2 Height 5 ft. 6 in. (167.64 cm); Pain 10/10; 02:00 BP 124 / 71; Pulse 64; Resp 18; Pulse Ox 97% on R/A; lp1 02:30 BP 118 / 59; Pulse 60; Resp 18; Pulse Ox 98% on R/A; lp1 03:30 BP 124 / 71; Pulse 58; Resp 16; Pulse Ox 97% on R/A; lp1 01:05 Body Mass Index 25.82 (72.57 kg, 167.64 cm) tl2 MDM: 00:51 Patient medically screened. rn 01:58 Response to treatment: the patient's symptoms have mildly improved after treatment. rn 03:31 Differential diagnosis: gastritis, gastroesophageal reflux disease, non-specific abd rn pain, pancreatitis, Peptic Ulcer Disease, urinary tract infection. Data reviewed: vital signs, nurses notes, lab test result(s), radiologic studies, CT scan, and as a result, I will discharge patient. Counseling: I had a detailed discussion with the patient and/or guardian regarding: the historical points, exam findings, and any diagnostic results supporting the discharge/admit diagnosis, lab results, radiology results, the need for outpatient follow up, to return to the emergency department if symptoms worsen or persist or if there are any questions or concerns that arise at home. Special discussion: I discussed with the patient/guardian in detail that at this point there is no indication for admission to the hospital. It is understood, however, that if the symptoms persist or worsen the patient needs to return immediately for re-evaluation. 09/30 01:00 Order name: Basic Metabolic Panel; Complete Time: 02:12 rn 09/30 01:00 Order name: CBC with Diff; Complete Time: 01:51 rn 09/30 01:00 Order name: Hepatic Function; Complete Time: 02:12 rn 09/30 01:00 Order name: Lipase; Complete Time: 02:12 rn 09/30 01:00 Order name: Urine Microscopic Only 09/30 03:16 Order name: Urine Dipstick--Ancillary (enter results) eb 09/30 01:00 Order name: IV Saline Lock; Complete Time: :22 rn 09/30 01:00 Order name: Labs collected and sent; Complete Time: :22 rn 09/30 01:00 Order name: Urine Dipstick-Ancillary (obtain specimen); Complete Time: 03:52 rn 09/30 01:00 Order name: CT Abd/Pelvis - W/Contrast rn Administered Medications: :22 Drug: Zofran 4 mg Route: IVP; Site: right forearm; lp1 02:14 Follow up: Response: Nausea is decreased lp1 01:22 Drug: GI Cocktail without - (Maalox Suspension 30 ml, Lidocaine Liquid 2 % 15 lp1 ml) Route: PO; 02:14 Follow up: Response: No adverse reaction lp1 01:22 Drug: Demerol 50 mg Route: IVP; Site: right forearm; lp1 02:14 Follow up: Response: Pain is decreased lp1 03:45 Drug: Demerol 50 mg Route: IVP; Site: right forearm; lp1 04:12 Follow up: Response: Pain is decreased lp1 Disposition: 09/30/17 03:33 Discharged to Home. Impression: Upper abdominal pain, unspecified. - Condition is Stable. - Discharge Instructions: Abdominal Pain, Adult, Pain Without a Known Cause. - Medication Reconciliation Form, Thank You Letter, Antibiotic Education, Prescription Opioid Use form. - Follow up: Private Physician; When: As needed; Reason: Recheck today's complaints, Re-evaluation by your physician. - Problem is new. - Symptoms have improved. Signatures: Dispatcher [employer] EDMS Jatin Greenberg MD MD rn Pena, Laura, RN RN lp1 Joanne Yao RN RN tl2 Corrections: (The following items were deleted from the chart) 04:12 03:33 09/30/2017 03:33 Discharged to Home. Impression: Upper abdominal pain, lp1 unspecified. Condition is Stable. Forms are Medication Reconciliation Form, Thank You Letter, Antibiotic Education, Prescription Opioid Use. Follow up: Private Physician; When: As needed; Reason: Recheck today's complaints, Re-evaluation by your physician. Problem is new. Symptoms have improved. rn
[2017-09-30 04:03] LABS: Urine Bacteria <20 /HPF (<20); Urine Culture Reflex Order NOT NEEDED; Urine RBC NONE SEEN /HPF (NONE SEEN)
[2017-09-30 04:04] LABS: Urine Blood NEGATIVE (NEG); Urine Glucose NEGATIVE (NEG); Urine Protein NEGATIVE (NEG); Urine pH 6.5 (5.0-7.0)
[2017-09-30 04:16] VITALS: TEMP 99.2
[2017-09-30 04:19] VITALS: BP 124/71; O2SAT 97
--- NOTE | 2017-09-30 08:14 | RAD REPORT ---
EXAM DESCRIPTION: CT - Abdomen Pelvis W Contrast - 09/30/2017 7:48 am CLINICAL HISTORY: Abdominal pain./epigastric pain COMPARISON: August 2017 TECHNIQUE: Computed axial tomography of the abdomen and pelvis was obtained. 100 cc Isovue-300 is ad ministered intravenously. Oral contrast was given.A preliminary report was generated by [employer] and reviewed prior to this dictation All CT scans are performed using dose optimization technique as appropriate and may include automated exposure control or mA/KV adjustment according to patient size. FINDINGS: The liver, spleen, pancreas, adrenals and kidneys appear unremarkable. The gallbladder has been removed. There is no evidence of diverticulitis An adnexal mass is not visualized. A hysterectomy has been performed IMPRESSION: No acute abnormality is displayed
== END 2017-09-30 04:12 | disposition home or self-care (01) ==
LOC: ER 00:47
DX: R10.10 Upper abdominal pain, unspecified (principal); I10 Essential (primary) hypertension; F41.9 Anxiety disorder, unspecified; Z88.5 Allergy status to narcotic agent; Z88.8 Allergy status to other drugs, medicaments and biological substances
CPT/HCPCS: 36415; 74177; 80048; 80076; 81003; 81015; 83690; 85025; 96374; 96375; 99284; J2175; J2405; Q9967

== ENCOUNTER 2018-01-26 10:01 | Emergency (ER) | payer OTHER ==
--- OUTSIDE RECORDS SUMMARY | 2018-01-26 10:04 | XMS REPORT | Clinical Summary ---
:1955 Author Organization [facility] Address [address] [place] [address] Care Team Providers Name Role Phone Rob [...] capsule TIMES A DAY WITH A MEAL amitriptyline (ELAVIL) Take 1 30 tablet 11 08/31/19 Active 10 MG tablet tablet (10 8 19 mg total) by mouth nightly. plecanatide (TRULANCE) 3 Take 1 30 tablet 3 08/31/19 Active mg tablet tablet (3 mg 8 19 total) by mouth daily. Can be taken with or without food. linaclotide (LINZESS) Take 145 mcg Active 145 mcg capsule by mouth as needed. linaclotide (LINZESS) Take 290 mcg 08/31/19 Discontinued 290 mcg capsule by mouth 18 daily. SUPREP BOWEL PREP KIT 1 bottle at [...] (two) times a day for 30 days. acetaminophen-codeine Take 1-2 10/07/19 Discontinued (TYLENOL WITH CODEINE tablets by 18 #4) 300-60 mg per tablet mouth every 6 (six) hours as needed for moderate pain. acetaminophen-codeine Take 1-2 30 tablet 0 11/06/19 (TYLENOL WITH CODEINE tablets by 8 18 #4) 300-60 mg per tablet mouth every 6 (six) hours as needed for moderate pain for up to 30 days. Active Problems Problem Noted Date Chronic back pain 10/05/2017 Generalized abdominal pain 08/30/2017 Right upper quadrant pain 07/26/2017 Slow transit constipation 07/26/2017 History of cholecystectomy 07/26/2017 Essential hypertension 07/26/2017 Splenic artery aneurysm 07/26/2017 Anxiety 07/26/2017 Resolved Problems Problem Noted Date Resolved Date Left upper quadrant pain 07/26/2017 08/30/2017 Epigastric pain 07/26/2017 08/30/2017 Encounters Date Type Specialty Care Team Description 10/14/2017 Orders Only Gastroenterology Shae, Lower abdominal pain LAI Jones (Primary Dx) 10/13/2017 [facility] Radiology Jose Heath Right upper quadrant pain; Encounter MD Diane Generalized abdominal pain 10/12/2017 Telephone GastroenterJose Almaguer MD 10/06/2017 Orders Only GastroenterRobert Aguilera LVN 10/05/2017 Office Visit GastroenterJose Almaguer Slow transit constipation (Primary Dx); MD Diane Right upper quadrant pain; Generalized abdominal pain; History of cholecystectomy; Anxiety 10/05/2017 Procedure Pass Radiology 10/04/2017 Telephone Gastroenterology Doris Haas RN 09/23/2017 [facility] Radiology Jose Heath Elevated C-reactive Encounter MD Diane protein (CRP) 09/23/2017 Orders Only Jose Arreola MD 09/23/2017 Telephone Jose Arreola MD 09/21/2017 Orders Only GastroenterRobert Aguilera LVN 09/21/2017 Orders Only Jose Arreola Elevated C-reactive MD Diane protein (CRP) (Primary Dx) 09/07/2017 Orders Only Jose Arreola Elevated C-reactive MD Diane protein (CRP) (Primary Dx) 08/30/2017 Lab Lab Jose Heath Generalized abdominal pain; MD Daine Right upper quadrant pain 08/30/2017 Office Visit Jose Arreola Slow transit constipation (Primary Dx); MD Diane Generalized abdominal pain; History of cholecystectomy; Right upper quadrant pain; Anxiety 08/19/2017 Telephone Gastroenterology Robert Kaufman LVN 08/01/2017 Refill Ky Aviles MD 07/28/2017 Hospital Radiology Jose Heath Slow [...] Linnea Olguin MA 04/14/2017 Office Visit Gastroenterology Gege Splenic artery aneurysm ( Primary Dx); Ky Contreras MD Slow transit constipation; Gastroesophageal reflux disease, esophagitis presence not specified; Essential hypertension; History of colon polyps; History of pancreatitis; Family history of colon cancer; Calculus of gallbladder without cholecystitis without obstruction 04/13/2017 Telephone Gastroenterology Doris Haas RN after 01/25/2017 Family History Medical History Relation Name Comments [...] - Inhaled Oxygen Concentration - - Weight 68.9 kg (152 lb) 10/13/2017 10:55 AM CDT Height 167.6 cm (5' 6") 10/13/2017 10:55 AM CDT Body Mass Index 24.53 10/13/2017 10:55 AM CDT Plan of Treatment Health Maintenance Due Date Last Done Comments CERVICAL CANCER SCREENING 1974 BREAST CANCER SCREENING 12/10/2003 COLON CANCER SCREENING 12/10/2003 SHINGRIX VACCINE (#1) 12/10/2003 ZOSTER VACCINE 2013 INFLUENZA VACCINE 12/01/2017 Procedures Procedure Name Priority Date/Time Associated Comments Diagnosis MRI THORACIC SPINE W Routine 10/13/2017 11:40 Right upper Results for this WO CONTRAST AM CDT quadrant pain procedure are in Generalized the results abdominal pain section. ESTIMATED GFR Routine 10/13/2017 11:00 Results for this AM CDT procedure are in the results section. POC CREATININE Routine 10/13/2017 11:00 Results for this AM CDT procedure are in the results section. XR CHEST 2 VW Routine 09/23/2017 2:52 Elevated C-reactive Results for this PM CDT protein (CRP) procedure are in the results section. ARLENE SCREEN W IFA W Routine 09/23/2017 1:28 Results for this REFLEX TO TITER PM CDT procedure are in the results section. CRP HIGH SENSITIVITY Routine 09/15/2017 8:19 Elevated C-reactive Results for this AM CDT protein (CRP) procedure are in the results section. CORTISOL LEVEL, AM Routine 08/30/2017 9:54 Generalized Results for this AM CDT abdominal pain procedure are in Right upper the results quadrant pain section. CRP HIGH SENSITIVITY Routine 08/30/2017 9:54 Generalized Results for this AM CDT abdominal pain procedure are in Right upper the results quadrant pain section. CHROMOGRANIN A Routine 08/30/2017 9:54 Generalized Results for this AM CDT abdominal pain procedure are in Right upper the results quadrant pain section. CT ENTEROGRAPHY Routine 07/28/2017 1:16 Slow transit Results for this PM CDT constipation procedure are in Right upper the results quadrant pain section. Left upper quadrant pain Epigastric pain CRP HIGH SENSITIVITY Routine 07/26/2017 11:59 Slow transit Results for this AM CDT constipation procedure are in Right upper the results quadrant pain section. Left upper quadrant pain Epigastric pain COMPREHENSIVE Routine 07/26/2017 11:59 Slow transit Results for this METABOLIC PANEL AM CDT constipation procedure are in Right upper the results quadrant pain section. Left upper quadrant pain Epigastric pain CBC WITH PLATELET AND Routine 07/26/2017 11:59 Slow transit Results for this DIFFERENTIAL AM CDT constipation procedure are in Right upper the results quadrant pain section. Left upper quadrant pain Epigastric pain after 01/25/2017 Results MRI Thoracic Spine W Wo Contrast (10/13/2017 11:40 AM) Narrative Performed At EXAMINATION: MRI THORACIC SPINE W WO CONTRAST [facility] CLINICAL HISTORY: R10.11 Right upper quadrant pain, R10.84 Generalized abdominal pain, back pain radiating to abdomen COMPARISON:None TECHNIQUE: Multiplanar multisequence pre and post contrast enhanced examination was performed of the thoracic spine. FINDINGS: No vertebral fracture. No subluxation. No suspicious osseous lesions. No degenerative marrow signal abnormality. No suspicious enhancement. No abnormal spinal cord signal. Disc desiccation and small anterior endplate osteophytes throughout the mid to upper thoracic spine, without evidence of significant posterior disc disease. No significant spinal canal or neural foraminal stenosis throughout the thoracic spine. There is no mass, adenopathy or aneurysm of the visualized soft tissues. Azygos lobe is present. IMPRESSION: 1. Minimal degenerative change without significant spinal canal or neural foraminal stenosis. [id number] Procedure Note Hm Interface, Radiology Results Incoming - 10/13/2017 1:07 PM CDT EXAMINATION: MRI THORACIC SPINE W WO CONTRAST CLINICAL HISTORY: R10.11 Right upper quadrant pain, R10.84 Generalized abdominal pain, back pain radiating to abdomen COMPARISON: None TECHNIQUE: Multiplanar multisequence pre and post contrast enhanced examination was performed of the thoracic spine. FINDINGS: No vertebral fracture. No subluxation. No suspicious osseous lesions. No degenerative marrow signal abnormality. No suspicious enhancement. No abnormal spinal cord signal. Disc desiccation and small anterior endplate osteophytes throughout the mid to upper thoracic spine, without evidence of significant posterior disc disease. No significant spinal canal or neural foraminal stenosis throughout the thoracic spine. There is no mass, adenopathy or aneurysm of the visualized soft tissues. Azygos lobe is present. IMPRESSION: 1. Minimal degenerative change without significant spinal canal or neural foraminal stenosis. [id number] Performing Organization Address City/State/[facility] Phone Number [facility] [address] [place] [phone] Estimated GFR (10/13/2017 11:00 AM) GFR Non Af Amer 84 mL/min/1.73 m2 [facility] DEPARTMENT OF PATHOLOGY AND GENOMIC MEDICINE GFR Af Amer >90 mL/min/1.73 m2 [facility] DEPARTMENT OF Comment: PATHOLOGY AND GENOMIC Chronic kidney disease: <60 mL/min/1.73m2 MEDICINE Kidney failure: <15 mL/min/1.73m2 The estimated GFR is calculated from the IDMS-traceable Modification of Diet in Renal Disease Equation. The accuracy of the calculation is poor when the creatinine is normal. Calculated values >90 mL/min/1.73m2 are not reported. This equation has not been validated in children (<18 years), women, the elderly (>70 years), or ethnic groups other than Caucasians and Americans. Specimen Blood Performing Organization Address [facility] Phone Number [facility] DEPARTMENT OF PATHOLOGY AND [address] [place], [place] [id number] [facility] POC creatinine (10/13/2017 11:00 AM) POC creatinine 0.7 0.5 - 0.9 mg/dl [facility] DEPARTMENT OF PATHOLOGY Comment: AND [facility] Meter ID: [id number] Coordinator Of Evaluation: Kiarra Regalado Specimen Blood Performing Organization Address [facility] Phone Number [facility] DEPARTMENT OF PATHOLOGY AND [address] [place] [phone] [facility] MEDICINE XR Chest 2 Vw (09/23/2017 2:52 PM) Narrative Performed At EXAMINATION:XR CHEST 2 VW [facility] CLINICAL HISTORY: R79.82 Elevated C-reactive protein (CRP), chest painelevated CRP COMPARISON:None IMPRESSION: No active disease in the chest. Lungs are clear. Cardiomediastinal silhouette is within normal limits. No effusion or pneumothorax noted. There is hardware in the cervical spine. There are spondylotic changes in the thoracic spine. [facility]-[id number] Procedure Note Hm Interface, Radiology Results Incoming - 09/23/2017 2:57 PM CDT EXAMINATION: XR CHEST 2 VW CLINICAL HISTORY: R79.82 Elevated C-reactive protein (CRP), chest pain elevated CRP COMPARISON: None IMPRESSION: No active disease in the chest. Lungs are clear. Cardiomediastinal silhouette is within normal limits. No effusion or pneumothorax noted. There is hardware in the cervical spine. There are spondylotic changes in the thoracic spine. [facility]-[id number] Performing Organization Address City/State/Zipcode Phone Number [facility] [address] [place] [address] ARLENE SCREEN W IFA W REFLEX TO TITER (09/23/2017 1:28 PM) ARLENE screen NEGATIVE NEGATIVE [employer] [employer] Comment: ARLENE IFA is a first line screen for detecting the presence of up to approximately 150 autoantibodies in various autoimmune diseases. A negative ARLENE IFA result suggests ARLENE-associated autoimmune diseases are not present at this time. Visit Physician FAQs for interpretation of all antibodies in the [place], prevalence, and association with diseases at http://education.[employer]/ faq/QAL366 Narrative Performed At FASTING:NO [facility] FASTING: NO Other Results Text Performing Organization Information: Site ID: [id number] Name: [facility] Address: [address] [place] [phone] Director: Dr. Bryan Carpenter Performing Organization Address [facility]code Phone Number [employer] [address] [place] [phone] CRP high sensitivity (09/15/2017 8:19 AM)Only the most recent of3 resultswithin the time period is included. CRP, high sensitivity 9.6 (H) mg/L [employer] Comment: II Higher relative cardiovascular risk according to AHA/CDC [...] be associated with infection and inflammation. Specimen Blood Narrative Performed At FASTING:YES [facility] FASTING: YES Other Results Text Performing Organization Information: Site ID: [id number] Name: [facility] Address: [address] [place] [address] Director: Dr. Bryan Carpenter Performing Organization Address [facility]code Phone Number [facility] [address] [place] [address] Cortisol level, AM (08/30/2017 9:54 AM) Cortisol, AM 15.0 mcg/dL [facility] [place] Comment: Reference Range 8 a.m. (7-9 a.m.) Specimen: 4.0-22.0 Specimen Blood Other Results Text Performing Organization Information: Site ID: [id number] Name: [facility] Address: [address] [place] [address] Director: Monika Alicea Performing Organization Address [facility] Phone Number [employer] [address] [address] Chromogranin A (08/30/2017 9:54 AM) Chromogranin A 124 25 - 140 ng/mL [facility] Comment: DIAGNOSTICS/[facility] This test was performed using a laboratory developed DANICA method. Values obtained with different assay methods cannot be used interchangeably. Chromogranin A levels, regardless of value, should not be interpreted as absolute evidence of the presence or absence of disease. This test was developed and its analytical performance characteristics have been determined by [facility]. It has not been cleared or approved by FDA. This assay has been validated pursuant to the CLIA regulations and is used for clinical purposes. Specimen Blood Other Results Text Performing Organization Information: Site ID: [id number] Name: [facility], Address: [address] [place] [phone] Director: Ena Gallego MD,PhD,LILIANE Performing Organization Address City/[facility] Phone Number [facility] [address] [place] [address] [phone] [facility] [place] Enterography (07/28/2017 1:16 PM) Narrative Performed At EXAMINATION:CT ENTEROGRAPHY [facility] CLINICAL HISTORY:K59.01 Slow transit constipation, R10.11 Right [...] liver, spleen, pancreas, kidneys, or adrenal glands. 3.The abdominal aorta is of normal caliber. There are no enlarged retroperitoneal lymph nodes. Pelvis: 1. No mass, fluid collection, or adenopathy isn't 5 the pelvis. 2.There are no CT findings of acute diverticulitis. IMPRESSION: Unremarkable CT enterography examination. [facility]-[id number] Procedure Note Interface, Radiology Results Incoming - [...] acute diverticulitis. IMPRESSION: Unremarkable CT enterography examination. [facility]-[id number] Performing Organization Address City/State/Zipcode Phone Number [facility] [address] [place] [address] CBC with platelet and differential (07/26/2017 11:59 AM) WBC 6.4 3.8 - 10.8 Thousand/uL [facility] [place] RBC 4.63 3.80 - 5.10 Million/uL [facility] [place] HGB 14.4 11.7 - 15.5 g/dL [facility] [place] HCT 42.7 35.0 - 45.0 % [facility] [place] MCV 92.2 80.0 - 100.0 fL [facility] [place] MCH 31.1 27.0 - 33.0 pg [facility] [place] MCHC 33.7 32.0 - 36.0 g/dL [facility] [place] RDW 12.0 11.0 - 15.0 % [facility] [place] Platelet count 305 140 - 400 Thousand/uL [facility] [place] MPV 10.1 7.5 - 12.5 fL [facility] [place] Neutrophils, absolute 3,334 1,500 - 7,800 cells/uL [facility] [place] Lymphocytes, absolute 2,502 850 - 3,900 cells/uL [facility] [place] Monocytes, absolute 493 200 - 950 cells/uL [facility] [place] Eosinophils, absolute 38 15 - 500 cells/uL [facility] [place] Basophils, absolute 32 0 - 200 cells/uL [facility] [place] Neutrophils 52.1 % [facility] [place] Lymphocytes 39.1 % [facility] [place] Monocytes 7.7 % [facility] [place] Eosinophils 0.6 % [facility] [place] Basophils + RC 0.5 % [facility] [place] Specimen Blood Other Results Text Performing Organization Information: Site ID: [id number] Name: [facility] Address: [address] [place] [phone] Director: Monika Alicea MD Performing Organization Address City/State/Zipcode Phone Number [facility] [employer] [place] [phone] Comprehensive metabolic panel (07/26/2017 11:59 AM) Glucose 90 65 - 99 mg/dL [facility] Comment: [place] Fasting reference interval BUN, whole blood 20 7 - 25 mg/dL [facility] [place] Creatinine 0.89 0.50 - 0.99 [facility] Comment: mg/dL [place] For patients >49 years of age, the reference limit for Creatinine is approximately 13% higher for people identified as -Moroccan. EGFR Non-Afr. Moroccan 69 > OR=60 [facility] mL/min/1.73m2 [place] EGFR 80 > OR=60 [facility] mL/min/1.73m2 [place] BUN/creatinine ratio NOT APPLICABLE 6 - 22 (calc) [facility] [place] Sodium 141 135 - 146 mmol/L [facility] [place] Potassium 4.7 3.5 - 5.3 mmol/L [facility] [place] Chloride 101 98 - 110 mmol/L [facility] [place] CO2 31 20 - 31 mmol/L [facility] [place] Calcium 9.8 8.6 - 10.4 mg/dL [facility] [place] Protein 7.6 6.1 - 8.1 g/dL [facility] [place] Albumin, S 4.7 3.6 - 5.1 g/dL [facility] [place] Globulin, total 2.9 1.9 - 3.7 g/dL [facility] [employer] (calc) [place] Albumin/globulin ratio 1.6 1.0 - 2.5 (calc) [facility] [place] Total bilirubin 0.5 0.2 - 1.2 mg/dL [facility] [place] Alkaline phosphatase 96 33 - 130 U/L [facility] [place] AST 14 10 - 35 U/L [facility] [place] ALT 12 6 - 29 U/L [facility] [place] Specimen Blood Other Results Text Performing Organization Information: Site ID: [id number] Name: [facility] Address: [address] [place] [phone] Director: Monika Alicea MD Performing Organization Address City/State/Zipcode Phone Number [facility] [place] [address] [place] [address] [phone] after 01/25/2017 Insurance Payer Benefit Plan / Group Subscriber ID Type Phone Address [facility] xxxxxxxxxxx HMO Work: [address] [phone] [place], [place] [address] Home:
[2018-01-26] MEDS ORDERED: NA CHLORIDE 0.9% 1,000 ML ONE (10:25)
[2018-01-26 10:27] LABS: Absolute Lymphocytes (CBC) 1.8 K/uL (0.7-4.9); Absolute Monocytes 0.4 K/uL (0.1-1.3); Basophils % 0.7 % (0-1.3); Eosinophils % 0.3 % (0-4.4); Lymphocytes % 28.2 % (15.3-44.8); MCV 92.4 fL (80-100); MPV 8.4 fL (7.6-11.3); RBC Red Blood Cell Count 4.44 M/uL (3.86-4.86)
--- NOTE | 2018-01-26 10:29 | RAD REPORT ---
EXAM DESCRIPTION: CT - Head Brain Wo Cont - 01/26/2018 10:19 am CLINICAL HISTORY: SYNCOPE Head injury COMPARISON: SINUS W O CONTRAST dated 01/21/2012 TECHNIQUE: All CT scans are performed using dose optimization technique as appropriate and may inclu de automated exposure control or mA/KV adjustment according to patient size. FINDINGS: No intracranial hemorrhage, hydrocephalus or extra-axial fluid collection.No areas of brai n edema or evidence of midline shift. The paranasal sinuses and mastoids are clear with postsurgical changes evident. The calvarium is inta ct. IMPRESSION: No acute intracranial abnormality.
[2018-01-26 10:33] LABS: Protime INR 0.99
[2018-01-26 10:49] LABS: BUN Blood Urea Nitrogen 18 mg/dL (7-18); Bicarbonate 21 mmol/L (21-32); CKMB Creatine Kinase MB < 1.0 ng/mL (0.3-3.6); Creatine Phosphokinase 70 U/L (26-192); Glucose Level 169 mg/dL (74-106); Potassium 3.4 mmol/L (3.5-5.1); Sodium Level 136 mmol/L (136-145); Troponin (Emerg Dept Use Only) < 0.02 ng/mL (0.0-0.045)
[2018-01-26] MEDS ORDERED: POTASSIUM CL SA 10 MEQ TAB PO ONE (11:19)
[2018-01-26] MEDS ORDERED: MAGNESIUM SULFATE 1 gm IVPB 1 GM/100 ML BAG IV ONE (11:32)
--- NOTE | 2018-01-26 11:44 | EDPHYS ---
Physician Documentation [facility] Name: Haley Porter Age: 62 yrs Sex: Female : 1955 Arrival Date: 01/26/2018 Time: 10:03 Bed 8 Private MD: ED Physician Jatin Greenberg HPI: 01/26 11:18 This 62 yrs old Female presents to ER via Ambulatory with complaints of rn Anxiety. 11:18 The patient has experienced syncope. Onset: The symptoms/episode began/occurred just rn prior to arrival. Duration: This was a single episode. Associated injury: The patient did not suffer any apparent associated injury. The patient has experienced similar episodes in the past. The patient has not recently seen a physician. Reports working outside, passed out, single episode, no trauma injuries, when woke up took a shower, then began to panic, breathing fast, tingling of both arms with cramps, didn't want to call 911 or bring her to hospital so patient drove herself. . 11:18 Reports chronic GI issues with chronically low potassium and magnesium. . rn Historical: - Allergies: 10:07 Morphine; sg 10:07 Valium; sg 10:07 Versed; sg - Home Meds: 10:07 Clonazepam Oral [Active]; gabapentin 100 mg Oral cap 3 caps 3 times per day [Active]; sg Hydrochlorothiazide Oral [Active]; Omeprazole Oral [Active]; Potassium Chloride Oral [Active]; Premarin Oral [Active]; quinalapril [Active]; Tramadol Oral [Active]; Ursodiol Oral [Active]; Voltaren Oral [Active]; Zofran Oral [Active]; - PMHx: 10:07 Anxiety; Hypertension; Pancreatitis; TMJ; sg - PSHx: 10:07 Cholecystectomy; sg - Immunization history:: Adult Immunizations up to date. - Social history:: Smoking status: Patient/guardian denies using tobacco. - Ebola Screening: : Patient negative for fever greater than or equal to 101.5 degrees Fahrenheit, and additional compatible Ebola Virus Disease symptoms Patient denies exposure to infectious person Patient denies travel to an Ebola-affected area in the 21 days before illness onset No symptoms or risks identified at this time. - Family history:: not pertinent. - Hospitalizations: : No recent hospitalization is reported. ROS: 11:18 Constitutional: Negative for fever, chills, and weight loss, Eyes: Negative for injury, rn pain, redness, and discharge, Neck: Negative for injury, pain, and swelling, Cardiovascular: + palpitations, no chest pain Respiratory: + sob, no cough Abdomen/GI: Negative for abdominal pain, nausea, vomiting, diarrhea, and constipation, MS/Extremity: Negative for injury and deformity, Skin: Negative for injury, rash, and discoloration, Neuro: + tingling and headache Exam: 11:18 Constitutional: This is a well developed, well nourished patient who is awake, alert, rn + hyperventilating and tearful Head/Face: Normocephalic, atraumatic. Eyes: Pupils equal round and reactive to light, extra-ocular motions intact. Lids and lashes normal. Conjunctiva and sclera are non-icteric and not injected. Cornea within normal limits. Periorbital areas with no swelling, redness, or edema. ENT: dry MM, no stridor Cardiovascular: tachycardic, regular, no murmur Respiratory: + clear bilaterla breath sounds, + tachypnea, no retractions, crying Abdomen/GI: Soft, non-tender, with normal bowel sounds. No distension or tympany. No guarding or rebound. No evidence of tenderness throughout. Skin: Warm, dry with normal turgor. Normal color with no rashes, no lesions, and no evidence of cellulitis. MS/ Extremity: Pulses equal, no cyanosis. Neurovascular intact. Full, normal range of motion. Equal circumference. Neuro: Awake and alert, GCS 15, oriented to person, place, time, and situation. Cranial nerves II-XII grossly intact. Motor strength 5/5 in all extremities. Sensory grossly intact. Cerebellar exam normal. Vital Signs: 10:08 Pulse 97; Resp 36 S; Temp 97.4; Pulse Ox 100% on R/A; Pain 0/10; sg 10:14 BP 132 / 76; Resp 19; sg 10:14 Pulse 78 MON; sg 10:40 BP 129 / 77; Pulse 66; Resp 19; Pulse Ox 100% on R/A; Pain 0/10; sg 10:14 Sinus Rhythm sg MDM: 10:07 Patient medically screened. rn 11:42 Differential Diagnosis: idiopathic syncope, vasovagal episode, dehydration, electrolyte rn disorder. Data reviewed: vital signs, nurses notes, lab test result(s), EKG, radiologic studies, CT scan, and as a result, I will discharge patient. Counseling: I had a detailed discussion with the patient and/or guardian regarding: the historical points, exam findings, and any diagnostic results supporting the discharge/admit diagnosis, lab results, radiology results, the need for outpatient follow up, to return to the emergency department if symptoms worsen or persist or if there are any questions or concerns that arise at home. Response to treatment: the patient's condition has returned to base line, the patient is now symptom free, and as a result, I will discharge patient. Special discussion: I discussed with the patient/guardian in detail that at this point there is no indication for admission to the hospital. It is understood, however, that if the symptoms persist or worsen the patient needs to return immediately for re-evaluation. 01/26 10:08 Order name: Basic Metabolic Panel; Complete Time: :01/26 10:08 Order name: CBC with Diff; Complete Time: 01/26 10:08 Order name: Ckmb; Complete Time: 01/26 10:08 Order name: CPK; Complete Time: 01/26 10:08 Order name: Protime (+inr); Complete Time: 01/26 10:08 Order name: Ptt, Activated; Complete Time: 01/26 10:08 Order name: CT Head Brain wo Cont; Complete Time: :01/26 10:08 Order name: Troponin (emerg Dept Use Only); Complete Time: :01/26 10:08 Order name: EKG; Complete Time: :01/26 10:08 Order name: Cardiac monitoring; Complete Time: :01/26 10:08 Order name: EKG - Nurse/Tech; Complete Time: 01/26 10:08 Order name: IV Saline Lock; Complete Time: 01/26 10:08 Order name: Labs collected and sent; Complete Time: 01/26 10:08 Order name: NPO; Complete Time: 01/26 10:08 Order name: O2 Per Protocol; Complete Time: 10: rn 01/26 10:08 Order name: O2 Sat Monitoring; Complete Time: 10:10 rn Administered Medications: 10:34 Drug: NS 0.9% 1000 ml Route: IV; Rate: 1000 ml; Site: right antecubital; sg 11:20 Drug: Potassium Chloride 40 mEq Route: PO; sg 11:32 Follow up: Response: No adverse reaction sg 11:32 Drug: Magnesium Sulfate 1 grams Route: IVPB; Infused Over: 1 hrs; Site: right sg antecubital; Disposition: 01/26/18 11:43 Discharged to Home. Impression: Hyperventilation, Syncope and collapse. - Condition is Stable. - Discharge Instructions: Hyperventilation, Syncope, Hypokalemia. - Medication Reconciliation Form, Thank You Letter, Antibiotic Education, Prescription Opioid Use form. - Follow up: Private Physician; When: As needed; Reason: Recheck today's complaints, Re-evaluation by your physician. - Problem is new. - Symptoms have improved. Signatures: Dispatcher [employer] EDJuanjo Bunn RN RN Jatin Greenberg MD MD boat garnisher: (The following items were deleted from the chart) 13:58 11:43 01/26/2018 11:43 Discharged to Home. Impression: Hyperventilation; Syncope and sg collapse. Condition is Stable. Forms are Medication Reconciliation Form, Thank You Letter, Antibiotic Education, Prescription Opioid Use. Follow up: Private Physician; When: As needed; Reason: Recheck today's complaints, Re-evaluation by your physician. Problem is new. Symptoms have improved. rn
--- NOTE | 2018-01-26 11:44 | ER ---
Nurse's Notes [facility] Name: Haley Porter Age: 62 yrs Sex: Female : 1955 Arrival Date: 01/26/2018 Time: 10:03 Bed 8 Private MD: Diagnosis: Hyperventilation;Syncope and collapse Presentation: 01/26 10:09 Presenting complaint: Patient states: I was out doing yard work, and I guess I got too sg hot or something. So I went inside the house and told my I need to go to the hospital because I didn't feel right, but then I took a shower. I drove here and now my head still feels funny and my hands feel like they have aaron horses in them. Transition of care: patient was not received from another setting of care. Onset of symptoms was January 26, 2018. Risk Assessment: Do you want to hurt yourself or someone else? Patient reports no desire to harm self or others. Initial Sepsis Screen: Does the patient meet any 2 criteria? RR > 20 per min. HR > 90 bpm. Does the patient have a suspected source of infection? No. Patient's initial sepsis screen is negative. Care prior to arrival: None. 10:09 Method Of Arrival: Ambulatory sg 10:09 Acuity: RADHA 4 sg Historical: - Allergies: 10:07 Morphine; sg 10:07 Valium; sg 10:07 Versed; sg - Home Meds: 10:07 Clonazepam Oral [Active]; gabapentin 100 mg Oral cap 3 caps 3 times per day [Active]; sg Hydrochlorothiazide Oral [Active]; Omeprazole Oral [Active]; Potassium Chloride Oral [Active]; Premarin Oral [Active]; quinalapril [Active]; Tramadol Oral [Active]; Ursodiol Oral [Active]; Voltaren Oral [Active]; Zofran Oral [Active]; - PMHx: 10:07 Anxiety; Hypertension; Pancreatitis; TMJ; sg - PSHx: 10:07 Cholecystectomy; sg - Immunization history:: Adult Immunizations up to date. - Social history:: Smoking status: Patient/guardian denies using tobacco. - Ebola Screening: : Patient negative for fever greater than or equal to 101.5 degrees Fahrenheit, and additional compatible Ebola Virus Disease symptoms Patient denies exposure to infectious person Patient denies travel to an Ebola-affected area in the 21 days before illness onset No symptoms or risks identified at this time. - Family history:: not pertinent. - Hospitalizations: : No recent hospitalization is reported. Screenin:14 Abuse screen: Denies threats or abuse. Denies injuries from another. Nutritional sg screening: No deficits noted. Tuberculosis screening: No symptoms or risk factors identified. Never had TB. Fall Risk None identified. Assessment: 10:05 General: Appears in no apparent distress. well developed, well nourished, Behavior is sg cooperative, agitated, anxious, crying, fussy. 10:11 Reassessment: pt placed to NRB, resp rate encouraged to slow down, now RR 17 02 remains sg 100 percent, HR of 78 bpm Sinus Rhythm pt appears more calm at this time. IV access established. Neuro: Level of Consciousness is awake, alert, obeys commands, Oriented to person, place, time, situation, [employer] T[employer] are equal bilaterally Moves all extremities. Full function Speech is normal, Facial symmetry appears normal. Respiratory: Airway is patent Respiratory effort is even, unlabored, shallow, Respiratory pattern is tachypnea. Derm: Skin is pink, warm \T\ dry. 10:38 Reassessment: Patient appears in no apparent distress at this time. Patient and/or sg family updated on plan of care and expected duration. Pain level reassessed. Patient states feeling better. Patient states symptoms have improved. Respiratory: Airway is patent Respiratory effort is even, unlabored, Respiratory pattern is regular, symmetrical. Vital Signs: 10:08 Pulse 97; Resp 36 S; Temp 97.4; Pulse Ox 100% on R/A; Pain 0/10; sg 10:14 BP 132 / 76; Resp 19; sg 10:14 Pulse 78 MON; sg 10:40 BP 129 / 77; Pulse 66; Resp 19; Pulse Ox 100% on R/A; Pain 0/10; sg 10:14 Sinus Rhythm sg ED Course: 10:03 Patient arrived in ED. bd 10:07 Jatin Greenberg MD is Attending Physician. rn 10:08 Arm band placed on. sg 10:11 Triage completed. sg 10:15 Initial lab(s) drawn, by ED staff, sent to lab. Inserted saline lock: 20 gauge in right sg antecubital area, using aseptic technique. Blood collected. IV inserted by Deedee RAVI. 10:16 Juanjo Kay, RN is Primary Nurse. sg 10:17 Patient has correct armband on for positive identification. Bed in low position. Call sg light in reach. Side rails up X2. potline monitor on. Pulse ox on. NIBP on. Warm blanket given. Head of bed elevated. 10:18 CT completed. Patient tolerated procedure well. Patient moved to CT via stretcher. Patient moved back from CT. 10:19 CT Head Brain wo Cont In Process Unspecified. EDMS 10:27 EKG done, by mechanical technical service specialist. reviewed by Jatin Greenberg MD. at1 13:55 No provider procedures requiring assistance completed. sg 13:56 IV discontinued, intact, bleeding controlled, No redness/swelling at site. Pressure sg dressing applied. Administered Medications: 10:34 Drug: NS 0.9% 1000 ml Route: IV; Rate: 1000 ml; Site: right antecubital; sg 11:20 Drug: Potassium Chloride 40 mEq Route: PO; sg 11:32 Follow up: Response: No adverse reaction sg 11:32 Drug: Magnesium Sulfate 1 grams Route: IVPB; Infused Over: 1 hrs; Site: right sg antecubital; Outcome: 11:43 Discharge ordered by . rn 13:55 Admitted to Med/surg accompanied by tech, via stretcher, room 408, with chart. sg 13:55 Condition: stable 13:55 Instructed on the need for admit, safety practices, Demonstrated understanding of instructions, follow-up care. 13:58 Patient left the ED. sg Signatures: Dispatcher [employer] EDDE Lauryn Walker Steven, RN Debra Raymundo Roman, MD MD rn Gonzales, Amanda, stage driver EKG Tat1 Corrections: (The following items were deleted from the chart) 10:39 10:11 Respiratory: Airway is patent Respiratory effort is even, unlabored, shallow, sg Respiratory pattern is regular, tachypnea sg
--- NOTE | 2018-01-26 13:31 | EKG ---
Test Date: 2018-01-26 Test Time: 10:26:14 Director Strategic Account Management: KACEY MEASUREMENT RESULTS: Intervals: Rate: 67 [place]: 168 QRSD: 86 QT: 394 QTc: 416 [place]: P: 36 [place]: 168 QRS: 67 T: 61 INTERPRETIVE STATEMENTS: Normal sinus rhythm Normal ECG Compared to ECG 04/06/2017 17:39:57 Sinus bradycardia no longer present Electronically Signed On 01-26-18 13:30:37 CDT by Bob Avalos
[2018-01-26 14:23] VITALS: TEMP 97.4; O2SAT 100
[2018-01-26 14:25] VITALS: BP 129/77
== END 2018-01-26 13:58 | disposition home or self-care (01) ==
LOC: ER 10:01
DX: R06.4 Hyperventilation (principal); I10 Essential (primary) hypertension; Z88.5 Allergy status to narcotic agent; Z88.8 Allergy status to other drugs, medicaments and biological substances
CPT/HCPCS: 36415; 70450; 80048; 82550; 82553; 84484; 85025; 85610; 85730; 93005; 96374; 99285; J3475; J7030

== ENCOUNTER 2018-04-01 10:23 | Emergency (ER) | payer OTHER ==
--- OUTSIDE RECORDS SUMMARY | 2018-04-01 10:26 | XMS REPORT ---
:1955 Author [facility] Address [address] [place] [address] Care Team Providers Name Role Phone Unavailable Unavailable Unavailable Payers Payer Name Policy Type Policy Number Effective Date Expiration Date Problems This patient has no known problems. Allergies, Adverse Reactions, Alerts Allergy Allergy Status Severity Reaction(s) Onset Inactive Treating Comments Name Type Date Date Clinician midazolam DA Active SV 2010-03 00:00:0 0 diazepam DA Active SV 2010-03 00:00:0 0 morphine DA Active MO 2010-03 00:00:0 0 Medications This patient has no known medications.
--- OUTSIDE RECORDS SUMMARY | 2018-04-01 10:26 | XMS REPORT | Clinical Summary ---
:1955 Author Organization [facility] Address [address] [place] [address] Care Team Providers Name Role Phone Rob Alonzo MD Primary Care Provider Allergies Active Allergy Reactions Severity Noted Date Comments Morphine 01/16/2016 Diazepam 01/16/2016 Midazolam 01/16/2016 Medications Medication Sig Dispensed Refills Start End Date Status Date omeprazole (PriLOSEC) Take by 3 Active 20 MG capsule mouth once 6 daily. PREMARIN 0.3 mg tablet Take 0.3 mg 3 Active by mouth 6 once daily. clorazepate (TRANXENE) TAKE 1 1 Active 7.5 MG tablet TABLET EVERY 6 DAY NEEDED FOR ANXIETY3 magnesium oxide Take 400 mg 0 Active (MAG-OX) 400 mg tablet by mouth daily. ascorbic acid, vitamin Take 1,500 0 Active C, (vitamin C) 100 MG mg by mouth tablet daily. omega-3 fatty acids Take 300 mg 0 Active (FISH OIL) 300 mg by mouth capsule daily. CHOLECALCIFEROL, Take 2,000 0 Active VITAMIN D3, (D3-2000 Units by ORAL) mouth daily. multivitamin with Take 1 0 Active minerals tablet tablet by mouth daily. [...] mg total) by mouth nightly. plecanatide (TRULANCE) Take 1 30 tablet 3 08/31/19 Active 3 mg tablet tablet (3 mg 8 19 total) by mouth daily. Can be taken with or without food. linaclotide (LINZESS) Take 145 mcg 0 Active 145 mcg capsule by mouth as needed. linaclotide (LINZESS) Take 290 mcg 0 08/31/19 Discontinued 290 mcg capsule by mouth 18 daily. SUPREP BOWEL PREP KIT 1 bottle at 2 Bottle 0 04/14/20 Discontinued 17.5-3.13-1.6 gram 6PM, 1 7 17 recon soln bottle at 12AM (midnight) cholestyramine Take 1 0 05/24/19 Discontinued (QUESTRAN) 4 gram packet by 18 packet mouth as needed. traMADol (ULTRAM) 50 mg Take 50 mg 1 08/31/19 Discontinued tablet by mouth 2 7 18 (two) times a day as needed. chlordiazepoxide-clidin Take 1 60 capsule 0 06/23/19 ium (LIBRAX, WITH capsule by 8 18 CLIDINIUM,) 5-2.5 mg mouth 2 per capsule (two) times a day for 30 days. acetaminophen-codeine Take 1-2 0 10/07/19 Discontinued (TYLENOL WITH CODEINE tablets by 18 #4) 300-60 mg per mouth every tablet 6 (six) hours as needed for moderate pain. acetaminophen-codeine Take 1-2 30 tablet 0 11/06/19 (TYLENOL WITH CODEINE tablets by 8 18 #4) 300-60 mg per mouth every tablet 6 (six) hours as needed for moderate [...] abdominal pain LAI Jones (Primary Dx) 10/13/2017 Hospital Radiology Jose Heath Right upper quadrant pain; Encounter MD Diane Generalized abdominal pain 10/12/2017 Telephone GastroenterJose Almaguer MD 10/06/2017 Orders Only Gastroenterology Robert Kaufman LVN 10/05/2017 Office Visit Gastroenterology Jose Heath Slow transit constipation (Primary Dx); MD Diane Right upper quadrant pain; Generalized abdominal pain; History of cholecystectomy; Anxiety 10/04/2017 Telephone Gastroenterology Doris Haas RN 09/23/2017 [facility] Radiology Jose Heath Elevated C-reactive Encounter MD Diane protein (CRP) 09/23/2017 Orders Only Jose Arreola MD 09/23/2017 Telephone Jose Arreola MD 09/21/2017 Orders Only Gastroenterology Robert Kaufman LVN 09/21/2017 Orders Only GastroenterJose Almgauer Elevated C-reactive MD Diane protein (CRP) (Primary [...] Telephone Gastroenterology Robert Kaufman LVN 08/01/2017 Refill Gastroenterology Ky De Guzman [...] cholecystitis without obstruction 04/13/2017 Telephone Gastroenterology Doris Haas, TRAV after 03/31/2017 Family History Medical History Relation Name Comments [...] Assigned at Date Recorded Not on file Job Start Date Occupation Industry Not on file Not on file Not on file Travel History Travel Start Travel End No recent travel history available. Last Filed Vital Signs Vital Sign Reading [...] 12/10/2003 COLON CANCER SCREENING 12/10/2003 SHINGRIX VACCINE (1 of 2) 12/10/2003 ZOSTER VACCINE 2013 INFLUENZA VACCINE 12/01/2017 [...] Left upper quadrant pain Epigastric pain after 03/31/2017 Results MRI Thoracic Spine W Wo Contrast (10/13/2017 11:40 AM CDT) Narrative Performed At EXAMINATION: MRI THORACIC SPINE W WO CONTRAST [facility] CLINICAL HISTORY: R10.11 Right upper quadrant [...] significant spinal canal or neural foraminal stenosis. [id number] Procedure Note Hm Interface, Radiology Results Incoming [...] significant spinal canal or neural foraminal stenosis. [id number] Performing Organization Address City/State/Zipcode Phone Number [facility] [address] [place] [address] Estimated GFR (10/13/2017 11:00 AM CDT) GFR Non Af Amer 84 mL/min/1.73 m2 [facility] DEPARTMENT OF PATHOLOGY AND GENOMIC MEDICINE GFR Af Amer >90 mL/min/1.73 m2 [facility] DEPARTMENT OF Comment: PATHOLOGY AND GENOMIC [...] and Americans. Specimen Blood Performing Organization Address City/State/Zipcode Phone Number [facility] DEPARTMENT OF PATHOLOGY AND [address] [place] [address] [employer] MEDICINE POC creatinine (10/13/2017 11:00 AM CDT) POC creatinine 0.7 0.5 - 0.9 mg/dl [facility] DEPARTMENT OF PATHOLOGY Comment: AND [employer] MEDICINE Meter ID: [id number] Computing Tutor: Kiarra Regalado Specimen Blood Performing Organization Address City/[facility]/Zipcode Phone Number [facility] DEPARTMENT OF PATHOLOGY AND [address] [phone] [employer] XR Chest 2 Vw (09/23/2017 2:52 PM CDT) Narrative Performed At EXAMINATION:XR CHEST 2 VW [facility] CLINICAL HISTORY: R79.82 Elevated C-reactive protein (CRP), chest painelevated CRP COMPARISON:None IMPRESSION: No active disease in the chest. Lungs are clear. Cardiomediastinal silhouette is within normal limits. No effusion or pneumothorax noted. There is hardware in the cervical spine. There are spondylotic changes in the thoracic spine. [facility]-[id number] Procedure Note Hm Interface, Radiology Results Incoming [...] are spondylotic changes in the thoracic spine. [facility]-[id number] Performing Organization Address City/State/Zipcode Phone Number [facility] [address] [place] [address] ARLENE SCREEN W IFA W REFLEX TO TITER (09/23/2017 1:28 PM CDT) ARLENE screen NEGATIVE NEGATIVE [facility] Comment: ARLENE IFA is a first line screen for detecting the presence of up to approximately 150 autoantibodies in various autoimmune diseases. A negative ARLENE IFA result suggests ARLENE-associated autoimmune diseases are not present at this time. Visit Physician FAQs for interpretation of all antibodies in the [place], prevalence, and association with diseases at http://education.[employer]/ faq/NCD674 Narrative Performed At FASTING:NO [facility] FASTING: NO Resulting Agency Comment Performing Organization Information: Site ID: [id number] Name: [facility] Address: [address] [place] [phone] Director: Dr. Bryan Carpenter Performing Organization Address City/[facility] Phone Number [facility] [address] [place] [phone] CRP high sensitivity (09/15/2017 8:19 AM CDT)Only the most recent of3 resultswithin the time period is included. CRP, high sensitivity 9.6 (H) mg/L [facility] Comment: II Higher relative cardiovascular risk according [...] Narrative Performed At FASTING:YES [facility] FASTING: YES Resulting Agency Comment Performing Organization Information: Site ID: [id number] Name: [facility] Address: [address] [place] [phone] Director: Dr. Bryan Carpenter Performing Organization Address [facility]/Zipcode Phone Number [facility] [address] [place] [address] Cortisol level, AM (08/30/2017 9:54 AM CDT) Cortisol, AM 15.0 mcg/dL [facility] [place] Comment: Reference Range 8 a.m. (7-9 a.m.) Specimen: 4.0-22.0 Specimen Blood Resulting Agency Comment Performing Organization Information: Site ID: [id number] Name: [facility] Address: [address] [place] [phone] Director: Monika Alicea Performing Organization Address [facility] Hospitalcon[facility] Phone Number [facility] [address] [address] Chromogranin A (08/30/2017 9:54 AM CDT) Chromogranin A 124 25 - 140 ng/mL [facility] Comment: [facility] This test was performed using a laboratory developed DANICA method. Values obtained with different assay methods cannot be used interchangeably. Chromogranin A levels, regardless of value, should not be interpreted as absolute evidence of the presence or absence of disease. This test was developed and its analytical performance characteristics have been determined by [facility]. It has not been cleared or approved by FDA. This assay has been validated pursuant to the CLIA regulations and is used for clinical purposes. Specimen Blood Resulting Agency Comment Performing Organization Information: Site ID: [id number] Name: [facility], Address: [address] [place] [phone] Director: Ena Gallego MD,PhD,LILIANE Performing Organization Address [facility] Hospitalcode Phone Number [facility] [address] [place] [address] [facility] CT Enterography (07/28/2017 1:16 PM CDT) Narrative Performed At EXAMINATION:CT ENTEROGRAPHY HM [facility] [...] acute diverticulitis. IMPRESSION: Unremarkable CT enterography examination. [facility]-[id number] Procedure Note Interface, Radiology Results Incoming - [...] acute diverticulitis. IMPRESSION: Unremarkable CT enterography examination. [facility]-[id number] Performing Organization Address City/State/Zipcode Phone Number [facility] [address] [place] [address] CBC with platelet and differential (07/26/2017 11:59 AM CDT) WBC 6.4 3.8 - 10.8 Thousand/uL [facility] [place] RBC 4.63 3.80 - 5.10 Million/uL [facility] [place] HGB 14.4 11.7 - 15.5 g/dL [facility] [place] HCT 42.7 35.0 - 45.0 % [facility] [place] MCV 92.2 80.0 - 100.0 fL [facility] [place] MCH 31.1 27.0 - 33.0 pg [facility] [place] MCHC 33.7 32.0 - 36.0 g/dL [facility] [place] RDW 12.0 11.0 - 15.0 % [facility] [place] Platelet count 305 140 - 400 Thousand/uL [facility] [place] MPV 10.1 7.5 - 12.5 fL [facility] [place] Neutrophils, absolute 3,334 1,500 - 7,800 cells/uL [facility] [place] Lymphocytes, absolute 2,502 850 - 3,900 cells/uL [facility] [place] Monocytes, absolute 493 200 - 950 cells/uL [facility] [place] Eosinophils, absolute 38 15 - 500 cells/uL [facility] [place] Basophils, absolute 32 0 - 200 cells/uL [facility] [place] Neutrophils 52.1 % [facility] [place] Lymphocytes 39.1 % [facility] [place] Monocytes 7.7 % [facility] [place] Eosinophils 0.6 % [facility] [place] Basophils + RC 0.5 % [facility] [place] Specimen Blood Resulting Agency Comment Performing Organization Information: Site ID: [id number] Name: [facility] Address: [address] [place] [phone] Director: Monika Alicea MD Performing Organization Address City/State/Zipcode Phone Number [facility] [address] [address] Comprehensive metabolic panel (07/26/2017 11:59 AM CDT) Glucose 90 65 - 99 mg/dL [facility] Comment: [place] Fasting reference interval BUN, whole blood 20 7 - 25 mg/dL [facility] [place] Creatinine 0.89 0.50 - 0.99 [facility] Comment: mg/dL [place] For patients >49 years of age, the reference limit for Creatinine is approximately 13% higher for people identified as -Togolese. EGFR Non-Afr. Togolese 69 > OR=60 [facility] mL/min/1.73m2 [place] EGFR 80 > OR=60 [facility] mL/min/1.73m2 [place] BUN/creatinine ratio NOT APPLICABLE 6 - 22 (calc) [facility] [place] Sodium 141 135 - 146 mmol/L [facility] [place] Potassium 4.7 3.5 - 5.3 mmol/L [facility] [place] Chloride 101 98 - 110 mmol/L [facility] [place] CO2 31 20 - 31 mmol/L [facility] [place] Calcium 9.8 8.6 - 10.4 mg/dL [facility] [place] Protein 7.6 6.1 - 8.1 g/dL [facility] [place] Albumin, S 4.7 3.6 - 5.1 g/dL [facility] [place] Globulin, total 2.9 1.9 - 3.7 g/dL [facility] (calc) [place] Albumin/globulin ratio 1.6 1.0 - 2.5 (calc) [facility] [place] Total bilirubin 0.5 0.2 - 1.2 mg/dL [facility] Alkaline phosphatase 96 33 - 130 U/L [facility] AST 14 10 - 35 U/L [facility] ALT 12 6 - 29 U/L [facility] [place] Specimen Blood Resulting Agency Comment Performing Organization Information: Site ID: [id number] Name: [facility] Address: [address] [place] [phone] Director: Monika Alicea MD Performing Organization Address City/State/Zipcode Phone Number [facility] [place] [address] [place] [address] after 03/31/2017 Insurance Payer Benefit Plan / Group Subscriber ID Type Phone Address [facility] xxxxxxxxxxx HMO [phone] (Work) Advance Directives Patient has advance care planning documents on file. For more information, please contact:Yoo Iex[address] [place] [phone]
--- NOTE | 2018-04-01 10:52 | EDPHYS ---
Physician Documentation [facility] Name: Haley Porter Age: 62 yrs Sex: Female : 1955 Arrival Date: 04/01/2018 Time: 10:24 Bed 2 Private MD: Kevin Alonzo C ED Physician Arsen Lewis HPI: 04/01 10:44 This 62 yrs old Female presents to ER via Ambulatory with complaints of kb Numbness - Took wrong medication. 10:44 The patient presents to the emergency department with a known poisoning, aspercreme kb with lidocaine . Context: Method: the patient has a confirmed or suspected ingestion, aspercreme with lidocaine, Time: 30 minute(s) ago. Associated signs and symptoms: Pertinent positives: anxiety, numbness , Pertinent negatives: apnea, auditory hallucinations, burning of skin, decreased level of consciousness, depression, diaphoresis, diarrhea, dizziness, incontinence, loss of consciousness, nausea, palpitations, shortness of breath, tearfulness, visual hallucinations, vomiting. Severity of symptoms: At their worst the symptoms were moderate in the emergency department the symptoms are unchanged. The patient has not experienced similar symptoms in the past. The patient has not recently seen a physician. Pt reports she has a tooth that needs a root canal done on it. States she normally puts anbesol on it when it hurts. Today grabbed what she thought was anbesol and placed it in her mouth all around the bad tooth. States she noticed that it felt and tasted different so she checked the bottle and it was aspercreme with lidocaine. Reports she rinsed her mouth out and called the pharmacy. They told her to come to the ER right away. Reports numbness to mouth, esophagus, chest and right side of head. Pt appears anxious. States "the pharmacist scared me.". Historical: - Allergies: 10:36 Morphine; ph 10:36 Valium; ph 10:36 Versed; ph - PMHx: 10:46 Anxiety; Hypertension; Pancreatitis; TMJ; sv - PSHx: 10:46 Cholecystectomy; sv - Immunization history:: Adult Immunizations up to date. - Social history:: Smoking status: Patient/guardian denies using tobacco. - Ebola Screening: : No symptoms or risks identified at this time. ROS: 10:42 Constitutional: Negative for fever, chills, and weight loss, Eyes: Negative for injury, kb pain, redness, and discharge, ENT: Negative for injury, pain, and discharge, Neck: Negative for injury, pain, and swelling, Cardiovascular: Negative for chest pain, palpitations, and edema, Respiratory: Negative for shortness of breath, cough, wheezing, and pleuritic chest pain, Abdomen/GI: Negative for abdominal pain, nausea, vomiting, diarrhea, and constipation, MS/Extremity: Negative for injury and deformity, Skin: Negative for injury, rash, and discoloration, Neuro: Negative for headache, weakness, tingling, and seizure. numbness of mouth and esophagus after applying aspercreme with lidocaine to tooth Exam: 10:43 Head/Face: Normocephalic, atraumatic. Eyes: Pupils equal round and reactive to light, kb extra-ocular motions intact. Lids and lashes normal. Conjunctiva and sclera are non-icteric and not injected. Cornea within normal limits. Periorbital areas with no swelling, redness, or edema. ENT: Nares patent. No nasal discharge, no septal abnormalities noted. Tympanic membranes are normal and external auditory canals are clear. Oropharynx with no redness, swelling, or masses, exudates, or evidence of obstruction, uvula midline. Mucous membranes moist. Neck: Trachea midline, no thyromegaly or masses palpated, and no cervical lymphadenopathy. Supple, full range of motion without nuchal rigidity, or vertebral point tenderness. No Meningismus. Chest/axilla: Normal chest wall appearance and motion. Nontender with no deformity. No lesions are appreciated. Cardiovascular: Regular rate and rhythm with a normal S1 and S2. No gallops, murmurs, or rubs. Normal PMI, no JVD. No pulse deficits. Respiratory: Lungs have equal breath sounds bilaterally, clear to auscultation and percussion. No rales, rhonchi or wheezes noted. No increased work of breathing, no retractions or nasal flaring. Abdomen/GI: Soft, non-tender, with normal bowel sounds. No distension or tympany. No guarding or rebound. No evidence of tenderness throughout. Skin: Warm, dry with normal turgor. Normal color with no rashes, no lesions, and no evidence of cellulitis. MS/ Extremity: Pulses equal, no cyanosis. Neurovascular intact. Full, normal range of motion. Neuro: Awake and alert, GCS 15, oriented to person, place, time, and situation. Cranial nerves II-XII grossly intact. Motor strength 5/5 in all extremities. Sensory grossly intact. Cerebellar exam normal. Normal gait. 10:43 Constitutional: The patient appears alert, awake, anxious. kb Vital Signs: 10:35 BP 139 / 72; Pulse 73; Resp 18; Temp 97.8; Pulse Ox 100% on R/A; Weight 72.57 kg; ph Height 5 ft. 6 in. (167.64 cm); 10:58 BP 115 / 56; Pulse 72; Resp 17; Pulse Ox 100% on R/A; mh5 10:35 Body Mass Index 25.82 (72.57 kg, 167.64 cm) ph MDM: 10:28 Patient medically screened. kb 10:42 Data reviewed: vital signs, nurses notes. Data interpreted: Pulse oximetry: on room air kb is 100 %. Interpretation: normal. Counseling: I had a detailed discussion with the patient and/or guardian regarding: the historical points, exam findings, and any diagnostic results supporting the discharge/admit diagnosis, the need for outpatient follow up, a family practitioner, to return to the emergency department if symptoms worsen or persist or if there are any questions or concerns that arise at home. 04/01 10:34 Order [place]: [facility] Order: Consult Poison Control; Complete Time: 10:43 kb Administered Medications: No medications were administered Disposition: 16:04 Co-signature as Attending Physician, Arsen Lewis MD I agree with the assessment and kdr plan of care. Disposition: 04/01/18 10:51 Discharged to Home. Impression: Numbness s/p lidocaine use. - Condition is Stable. - Medication Reconciliation Form, Thank You Letter, Antibiotic Education, Prescription Opioid Use form. - Follow up: Emergency Department; When: As needed; Reason: Worsening of condition. Follow up: Private Physician; When: 2 - 3 days; Reason: Recheck today's complaints, Continuance of care, Re-evaluation by your physician. - Notes: Poison Control Signatures: Bonita Victor, NURYS-C NURYS-Deedee Brenner RN RN sv Rittger, Kevin, MD MD [facility] Flor Licona RN RN ss [place], Patricia, RN RN ph Corrections: (The following items were deleted from the chart) 10:43 10:43 Constitutional: This is a well developed, well nourished patient who is awake, kb alert, and in no acute distress. Head/Face: Normocephalic, atraumatic. Eyes: Pupils equal round and reactive to light, extra-ocular motions intact. Lids and lashes normal. Conjunctiva and sclera are non-icteric and not injected. Cornea within normal limits. Periorbital areas with no swelling, redness, or edema. ENT: Nares patent. No nasal discharge, no septal abnormalities noted. Tympanic membranes are normal and external auditory canals are clear. Oropharynx with no redness, swelling, or masses, exudates, or evidence of obstruction, uvula midline. Mucous membranes moist. Neck: Trachea midline, no thyromegaly or masses palpated, and no cervical lymphadenopathy. Supple, full range of motion without nuchal rigidity, or vertebral point tenderness. No Meningismus. Chest/axilla: Normal chest wall appearance and motion. Nontender with no deformity. No lesions are appreciated. Cardiovascular: Regular rate and rhythm with a normal S1 and S2. No gallops, murmurs, or rubs. Normal PMI, no JVD. No pulse deficits. Respiratory: Lungs have equal breath sounds bilaterally, clear to auscultation and percussion. No rales, rhonchi or wheezes noted. No increased work of breathing, no retractions or nasal flaring. Abdomen/GI: Soft, non-tender, with normal bowel sounds. No distension or tympany. No guarding or rebound. No evidence of tenderness throughout. Skin: Warm, dry with normal turgor. Normal color with no rashes, no lesions, and no evidence of cellulitis. MS/ Extremity: Pulses equal, no cyanosis. Neurovascular intact. Full, normal range of motion. Neuro: Awake and alert, GCS 15, oriented to person, place, time, and situation. Cranial nerves II-XII grossly intact. Motor strength 5/5 in all extremities. Sensory grossly intact. Cerebellar exam normal. Normal gait. kb 11:11 10:51 04/01/2018 10:51 Discharged to Home. Impression: Numbness s/p lidocaine use. ss Condition is Stable. Forms are Medication Reconciliation Form, Thank You Letter, Antibiotic Education, Prescription Opioid Use. Follow up: Emergency Department; When: As needed; Reason: Worsening of condition. Follow up: Private Physician; When: 2 - 3 days; Reason: Recheck today's complaints, Continuance of care, Re-evaluation by your physician. kb
--- NOTE | 2018-04-01 10:52 | ER ---
Nurse's Notes [facility] Name: Haley Porter Age: 62 yrs Sex: Female : 1955 Arrival Date: 04/01/2018 Time: 10:24 Bed 2 Private MD: Kevin Alonzo C Diagnosis: Numbness s/p lidocaine use Presentation: 04/01 10:30 Initial Sepsis Screen: Does the patient meet any 2 criteria? No. Patient's initial sv sepsis screen is negative. Does the patient have a suspected source of infection? No. Patient's initial sepsis screen is negative. 10:32 Presenting complaint: Patient states: " I thought I had grabbed to Anbesol to put on my ph tooth but I accidentally grabbed Aspercreme and didn't realize it until I put it in my mouth. I called the pharmacy and they said to come to the ED." Pt reports numbness in chest, face, and head, denies SOB, dizziness or N/V. Transition of care: patient was not received from another setting of care. Onset of symptoms was April 01, 2018. Risk Assessment: Do you want to hurt yourself or someone else? Patient reports no desire to harm self or others. Care prior to arrival: None. 10:32 Method Of Arrival: Ambulatory ph 10:32 Acuity: RADHA 3 ph Triage Assessment: 10:30 General: Appears uncomfortable, well developed, Behavior is cooperative, appropriate sv for age, anxious. General: Reports "I feel weird in my head and in my chest.". Pain: Denies pain. Neuro: Level of Consciousness is awake, alert, obeys commands, Oriented to person, place, time, situation, Moves all extremities. Full function Gait is steady. Respiratory: Airway is patent Respiratory effort is even, unlabored, Respiratory pattern is regular, symmetrical. Derm: Skin is pink, warm \\T\\ dry. Historical: - Allergies: 10:36 Morphine; ph 10:36 Valium; ph 10:36 Versed; ph - PMHx: 10:46 Anxiety; Hypertension; Pancreatitis; TMJ; sv - PSHx: 10:46 Cholecystectomy; sv - Immunization history:: Adult Immunizations up to date. - Social history:: Smoking status: Patient/guardian denies using tobacco. - Ebola Screening: : No symptoms or risks identified at this time. Screenin:30 Abuse screen: Denies threats or abuse. Denies injuries from another. Nutritional sv screening: No deficits noted. Tuberculosis screening: No symptoms or risk factors identified. Fall Risk None identified. Assessment: 10:38 Reassessment: Spoke with Michelle at [facility] poison control. Recommend rinsing sv her mouth, not eating until the numbness goes away, sips of fluids. May cause mild drowsiness, nausea and anxiety. Give reassurance. Vital Signs: 10:35 BP 139 / 72; Pulse 73; Resp 18; Temp 97.8; Pulse Ox 100% on R/A; Weight 72.57 kg; ph Height 5 ft. 6 in. (167.64 cm); 10:58 BP 115 / 56; Pulse 72; Resp 17; Pulse Ox 100% on R/A; mh5 10:35 Body Mass Index 25.82 (72.57 kg, 167.64 cm) ph ED Course: 10:24 Patient arrived in ED. as 10:24 Kevin Alonzo MD is Private Physician. as 10:28 Bonita Victor FNP-C is [facility]. kb 10:28 Arsen Lewis MD is Attending Physician. kb 10:30 Patient has correct armband on for positive identification. Bed in low position. Door sv closed. Head of bed elevated. 10:33 Deedee Max RN is Primary Nurse. sv 10:35 Triage completed. ph 10:36 Arm band placed on Patient placed in an exam room, on a stretcher, on oxygen, on pulse ph oximetry. 10:45 No provider procedures requiring assistance completed. Patient did not have IV access sv during this emergency room visit. Administered Medications: No medications were administered Outcome: 10:51 Discharge ordered by MD. kb 11:10 Discharged to home ambulatory, with family. sv 11:10 Condition: stable 11:10 Discharge instructions given to patient, Instructed on discharge instructions, follow up and referral plans. Demonstrated understanding of instructions, follow-up care. 11:11 Patient left the ED. Signatures: Bonita Victor FNP-C FNP-Ckb Verde, Stephanie, RN RN sv Martinez, Amelia as Smirch, Shelby, RN RN Kayla Alfonso RN RN Connie Olguin [facility]
[2018-04-01 11:17] VITALS: TEMP 97.8; O2SAT 100
[2018-04-01 11:18] VITALS: BP 115/56
== END 2018-04-01 11:11 | disposition home or self-care (01) ==
LOC: ER 10:23
DX: R20.0 Anesthesia of skin (principal); T41.3X5A Adverse effect of local anesthetics, initial encounter; I10 Essential (primary) hypertension; Z88.5 Allergy status to narcotic agent; Z88.8 Allergy status to other drugs, medicaments and biological substances
CPT/HCPCS: 99284

== ENCOUNTER 2019-04-14 13:03 | Emergency (ER) | payer OTHER ==
--- OUTSIDE RECORDS SUMMARY | 2019-04-14 13:06 | XMS REPORT ---
:1955 [facility] Address [address] [place] [address] Care Team Providers Name Role Phone Unavailable [...]
[2019-04-14] MEDS ORDERED: MEPERIDINE HCL 50 MG/ML ONE (15:05)
[2019-04-14] MEDS ORDERED: ONDANSETRON 4 MG (ODT) TAB ONE (15:06)
--- NOTE | 2019-04-14 15:46 | RAD REPORT ---
EXAM DESCRIPTION: RAD - Humerus Right - 04/14/2019 3:11 pm CLINICAL HISTORY: Right arm and shoulder pain, trauma COMPARISON: None. FINDINGS: No fracture is identified. There is no dislocation or periosteal reaction noted. No foreig n body or other soft tissue abnormality. Mild degenerative change seen along the undersurface of the AC joint and undersurface of the acromion. Faint curvilinear calcifications at the greater tuberosity may be chronic tendon or rotator cuff calcifications. No suspicious soft tissue finding. IMPRESSION: Degenerative change as detailed at shoulder joint. No acute right humerus finding.
[2019-04-14] MEDS ORDERED: LORazepam 2 MG/ML VIAL ONE (16:00)
--- NOTE | 2019-04-14 17:02 | RAD REPORT ---
EXAM DESCRIPTION: MRI - Shoulder Rt Wo Cont - 04/14/2019 4:44 pm CLINICAL HISTORY: Right shoulder pain COMPARISON: None. TECHNIQUE: Axial proton density fat saturation, parasagittal T1 weighted and para coronal proton den sity, T2 and T2 fat saturation weighted sequences were obtained. FINDINGS: No fracture or dislocation. No pathologic bone process. A 15 millimeter area of hypointens e T1 and hyperintense T2 signal is present in the anterior aspect of the humeral head. Subcortical fo cus is most likely degenerative cystic change. Overlying cortex is intact. AC joint degenerative changes are present. Edema is seen in the clavicle and acromion at the joint wi th an inferiorly directed spur. This 6 millimeter spur contacts the supraspinatus musculotendinous ju nction. Glenoid labrum degenerative change present. Labrum tear is not confirmed. Exam has motion degradation which limits assessment. No biceps tendon abnormality seen. Infraspinatus tendon is intact. subscapularis degenerative changes are present. An acute tear is not seen. Fluid is seen in the subacromion-subdeltoid bursa. There is heterogeneous signal in the supraspinatus tendon with suspected small full-thickness tear along the anterior leading edge. No large tear or te ndon retraction. No muscle belly atrophy. No abnormal joint effusion or loose body. IMPRESSION: Small anterior leading edge supraspinatus tendon rotator cuff tear. AC joint degenerative change with a 6 millimeter size spur flattening the superior contour of the sup raspinatus musculotendinous junction.
--- NOTE | 2019-04-14 17:24 | EDPHYS ---
Physician Documentation [facility] Name: Haley Porter Age: 63 yrs Sex: Female : 1955 Arrival Date: 04/14/2019 Time: 13:06 Bed 28 Private MD: Rob Alonzo ED Physician Leland Roa HPI: 04/14 14:55 This 63 yrs old Female presents to ER via Ambulatory with complaints of Arm pkl Pain. 14:55 The patient or guardian complains of pain, that is acute. The complaints affect the pkl right sroulder and arm. Context: Patient said she make 70 baskets with the basketball yesterday and today she complained of severe pain in her right shoulder and arm. Seen at Urgent Care and was sent here for MRI of the right shoulder. Onset: The symptoms/episode began/occurred today. Historical: - Allergies: 13:26 Morphine; ss 13:26 Valium; ss 13:26 Versed; ss - PMHx: 13:26 Anxiety; Hypertension; Pancreatitis; TMJ; ss - PSHx: 13:26 Cholecystectomy; ss - Immunization history:: Adult Immunizations up to date. - Social history:: Smoking status: Patient/guardian denies using tobacco. - Ebola Screening: : Patient denies exposure to infectious person Patient denies travel to an Ebola-affected area in the 21 days before illness onset. ROS: 14:55 Eyes: Negative for injury, pain, redness, and discharge, ENT: Negative for injury, pkl pain, and discharge, Neck: Negative for injury, pain, and swelling, Cardiovascular: Negative for chest pain, palpitations, and edema, Respiratory: Negative for shortness of breath, cough, wheezing, and pleuritic chest pain, Abdomen/GI: Negative for abdominal pain, nausea, vomiting, diarrhea, and constipation, Back: Negative for injury and pain, : Negative for injury, bleeding, discharge, and swelling. 14:55 MS/extremity: Positive for decreased range of motion, pain, of the right shoulder. 14:55 Skin: Negative for acute changes. 14:55 Neuro: Negative for altered mental status, loss of consciousness. Exam: 14:55 Head/Face: Normocephalic, atraumatic. Eyes: Pupils equal round and reactive to light, pkl extra-ocular motions intact. Lids and lashes normal. Conjunctiva and sclera are non-icteric and not injected. Cornea within normal limits. Periorbital areas with no swelling, redness, or edema. ENT: Nares patent. No nasal discharge, no septal abnormalities noted. Tympanic membranes are normal and external auditory canals are clear. Oropharynx with no redness, swelling, or masses, exudates, or evidence of obstruction, uvula midline. Mucous membranes moist. Neck: Trachea midline, no thyromegaly or masses palpated, and no cervical lymphadenopathy. Supple, full range of motion without nuchal rigidity, or vertebral point tenderness. No Meningismus. Chest/axilla: Normal chest wall appearance and motion. Nontender with no deformity. No lesions are appreciated. Cardiovascular: Regular rate and rhythm with a normal S1 and S2. No gallops, murmurs, or rubs. Normal PMI, no JVD. No pulse deficits. Respiratory: Lungs have equal breath sounds bilaterally, clear to auscultation and percussion. No rales, rhonchi or wheezes noted. No increased work of breathing, no retractions or nasal flaring. Abdomen/GI: Soft, non-tender, with normal bowel sounds. No distension or tympany. No guarding or rebound. No evidence of tenderness throughout. Back: No spinal tenderness. No costovertebral tenderness. Full range of motion. Skin: Warm, dry with normal turgor. Normal color with no rashes, no lesions, and no evidence of cellulitis. Neuro: Awake and alert, GCS 15, oriented to person, place, time, and situation. Cranial nerves II-XII grossly intact. Motor strength 5/5 in all extremities. Sensory grossly intact. Cerebellar exam normal. Normal gait. 14:55 Musculoskeletal/extremity: Extremities: grossly normal except: noted in the right shoulder: decreased ROM, pain. Vital Signs: 13:26 BP 143 / 81; Pulse 87; Resp 16; Temp 98.4(TE); Pulse Ox 95% on R/A; Weight 85.28 kg; ss Height 5 ft. 5 in. (165.10 cm); Pain 3/10; 15:00 BP 144 / 78; Pulse 84; Resp 18; Pulse Ox 96% on R/A; rv 16:30 BP 148 / 84; Pulse 88; Resp 16; Pulse Ox 96% on R/A; rv 17:45 BP 146 / 75; Pulse 76; Resp 16; Pulse Ox 97% on R/A; rv 13:26 Body Mass Index 31.28 (85.28 kg, 165.10 cm) MDM: 14:36 Patient medically screened. pkl 17:22 Data reviewed: vital signs, nurses notes, radiologic studies, MRI, plain films. pkl 17:23 ED course: Discussed MRI result with patient. Advised to follow up with Dr. Schwab in 2 pkl to 3 days. Patient understood instructions. Advised patient to take her Hydrocodone for pain. 04/14 14:55 Order name: Humerus Right XRAY; Complete Time: 15:56 pkl 04/14 15:02 Order name: Shoulder Rt Wo Cont; Complete Time: 17:15 EDMS 04/14 17:21 Order name: Shoulder Immobilizer; Complete Time: 17:34 pkl Administered Medications: 15:07 Drug: Demerol 50 mg {Note: rass 0.} Route: IM; Site: left deltoid; rv 17:34 Follow up: Response: No adverse reaction; Pain is decreased; RASS: Alert and Calm (0) rv 15:07 Drug: Zofran 4 mg Route: PO; rv 17:34 Follow up: Response: No adverse reaction; Marked relief of symptoms rv 16:15 Drug: Ativan 1 mg Route: IVP; Site: left antecubital; rv 17:34 Follow up: Response: No adverse reaction rv Disposition: 04/14/19 17:23 Discharged to Home. Impression: Rotater cuff tear right shoulder. - Condition is Stable. - Medication Reconciliation Form, Thank You Letter, Antibiotic Education, Prescription Opioid Use form. - Follow up: Cecil Schwab MD; When: 2 - 3 days; Reason: Re-evaluation by your physician. - Problem is new. - Symptoms have improved. Signatures: Dispatcher [employer] EDMS Leland Roa MD MD pkl Flor Licona RN RN Juan Hassan RN RN rv Corrections: (The following items were deleted from the chart) 17:55 17:23 04/14/2019 17:23 Discharged to Home. Impression: Rotater cuff tear right rv shoulder. Condition is Stable. Forms are Medication Reconciliation Form, Thank You Letter, Antibiotic Education, Prescription Opioid Use. Follow up: Dr. Cecil Schwab; When: 2 - 3 days; Reason: Re-evaluation by your physician. Problem is new. Symptoms have improved. pkl
--- NOTE | 2019-04-14 17:24 | ER ---
Nurse's Notes [facility] Name: Haley Porter Age: 63 yrs Sex: Female : 1955 Arrival Date: 04/14/2019 Time: 13:06 Bed 28 Private MD: Rob Alonzo Diagnosis: Rotater cuff tear right shoulder Presentation: 04/14 13:24 Presenting complaint: Patient states: "I have two grandsons that were doing science ss experiments Wednesday that have to do with basketball. We had to make 70 baskets and the next morning my R arm hurt so bad." Pt c/o R shoulder pain that radiates towards R upper back and down to R elbow as well as decreased ROM to R shoulder. Sent by urgent care for possible MRI of R shoulder. Transition of care: patient was not received from another setting of care. Onset of symptoms was April 09, 2019. Risk Assessment: Do you want to hurt yourself or someone else? Patient reports no desire to harm self or others. Initial Sepsis Screen: Does the patient meet any 2 criteria? No. Patient's initial sepsis screen is negative. Does the patient have a suspected source of infection? No. Patient's initial sepsis screen is negative. Care prior to arrival: None. 13:24 Method Of Arrival: Ambulatory ss 13:24 Acuity: RADHA 4 ss Historical: - Allergies: 13:26 Morphine; ss 13:26 Valium; ss 13:26 Versed; ss - PMHx: 13:26 Anxiety; Hypertension; Pancreatitis; TMJ; ss - PSHx: 13:26 Cholecystectomy; ss - Immunization history:: Adult Immunizations up to date. - Social history:: Smoking status: Patient/guardian denies using tobacco. - Ebola Screening: : Patient denies exposure to infectious person Patient denies travel to an Ebola-affected area in the 21 days before illness onset. Screenin:56 Abuse screen: Denies threats or abuse. Denies injuries from another. Nutritional rv screening: No deficits noted. Tuberculosis screening: No symptoms or risk factors identified. Fall Risk None identified. Assessment: 14:55 General: Appears in no apparent distress. comfortable, Behavior is calm, cooperative. rv Pain: Complains of pain in right arm. Neuro: Level of Consciousness is awake, alert, obeys commands, Oriented to person, place, time, situation. Cardiovascular: Patient's skin is warm and dry. Respiratory: Reports. Respiratory: Airway is patent. GI: No signs and/or symptoms were reported involving the gastrointestinal system. : No signs and/or symptoms were reported regarding the genitourinary system. EENT: No signs and/or symptoms were reported regarding the EENT system. Derm: Skin is intact. Musculoskeletal: Swelling absent. 16:19 Reassessment: patinet is in MRI and unable to keep the arm still for the procedure. rv referred to Dr Roa and ordered Ativan IV. Vital Signs: 13:26 BP 143 / 81; Pulse 87; Resp 16; Temp 98.4(TE); Pulse Ox 95% on R/A; Weight 85.28 kg; ss Height 5 ft. 5 in. (165.10 cm); Pain 3/10; 15:00 BP 144 / 78; Pulse 84; Resp 18; Pulse Ox 96% on R/A; rv 16:30 BP 148 / 84; Pulse 88; Resp 16; Pulse Ox 96% on R/A; rv 17:45 BP 146 / 75; Pulse 76; Resp 16; Pulse Ox 97% on R/A; rv 13:26 Body Mass Index 31.28 (85.28 kg, 165.10 cm) ss ED Course: 13:06 Patient arrived in ED. as 13:06 Rob Alonzo MD is Private Physician. as 13:26 Triage completed. ss 13:26 Arm band placed on right wrist. ss 14:36 Leland Roa MD is Attending Physician. pkl 14:53 Juan Hassan, TRAV is Primary Nurse. rv 14:57 Patient has correct armband on for positive identification. Call light in reach. Side rv rails up X 1. Pulse ox on. NIBP on. 14:59 No provider procedures requiring assistance completed. rv 15:12 Humerus Right XRAY In Process Unspecified. EDMS 15:34 Shoulder Rt Wo Cont In Process Unspecified. EDMS 16:17 Inserted saline lock: 24 gauge in left antecubital area, using aseptic technique. rv Missed attempt(s): 22 gauge in left forearm. 17:22 Cecil Schwab MD is Referral Physician. pkl 17:53 IV discontinued, intact, bleeding controlled, No redness/swelling at site. Pressure rv dressing applied. Administered Medications: 15:07 Drug: Demerol 50 mg {Note: rass 0.} Route: IM; Site: left deltoid; rv 17:34 Follow up: Response: No adverse reaction; Pain is decreased; RASS: Alert and Calm (0) rv 15:07 Drug: Zofran 4 mg Route: PO; rv 17:34 Follow up: Response: No adverse reaction; Marked relief of symptoms rv 16:15 Drug: Ativan 1 mg Route: IVP; Site: left antecubital; rv 17:34 Follow up: Response: No adverse reaction rv Outcome: 17:23 Discharge ordered by . vikki 17:53 Discharged to home ambulatory, with family. rv 17:53 Condition: good 17:53 Discharge instructions given to patient, family, Instructed on discharge instructions, follow up and referral plans. Demonstrated understanding of instructions, follow-up care. 17:55 Patient left the ED. rv Signatures: Dispatcher [employer] EDMS Leland Roa MD MD pkl Martinez, Amelia as Smirch, Shelby, TRAV RN Juan Hassan RN RN rv
[2019-04-14 18:16] VITALS: TEMP 98.4
[2019-04-14 18:22] VITALS: BP 146/75; O2SAT 97
== END 2019-04-14 17:55 | disposition home or self-care (01) ==
LOC: ER 13:03
DX: M75.101 Unspecified rotator cuff tear or rupture of right shoulder, not specified as traumatic (principal); Z88.6 Allergy status to analgesic agent; X50.3XXA Overexertion from repetitive movements, initial encounter; Y93.67 Activity, basketball
CPT/HCPCS: 73060; 73221; 96372; 96374; 99284; J2175

== ENCOUNTER 2019-10-30 16:33 | Emergency (ER) | payer OTHER ==
--- OUTSIDE RECORDS SUMMARY | 2019-10-30 17:17 | XMS REPORT | Clinical Summary ---
:1955 Author Organization [facility] Address [address] [place] [address] Care Team Providers Name Role Phone Nayla Alonzo MD Primary Care Provider Allergies Active Allergy Reactions Severity Noted Date Comments Morphine Other (See Comments) 01/16/2016 Makes h er loud and crazy Diazepam Other (See Comments) 01/16/2016 Makes h er crazy and wild Midazolam Other (See Comments) 01/16/2016 Makes h er crazy and loud Medications Medication Sig Dispensed Refills Start End Status Date Date omeprazole (PriLOSEC) Take by 3 12/16/19 Active 20 MG capsule mouth once 16 daily. clorazepate (TRANXENE) TAKE 1 1 11/21/19 Active 7.5 MG tablet TABLET EVERY 16 DAY NEEDED FOR ANXIETY3 hydroCHLOROthiazide Take 12.5 mg 3 06/18/19 Active (HYDRODIURIL) 12.5 MG by mouth 17 tablet once daily. pregabalin (LYRICA) 100 Take 100 mg 0 Active MG capsule by mouth 3 (three) times a day. quinapril (ACCUPRIL) 20 Take 20 mg 0 Active MG tablet by mouth nightly. HYDROcodone-acetaminoph Take 1 0 Active en (NORCO) 10-325 mg tablet by per tabletIndications: mouth 3 acute pain (three) times a day .acute pain. MELATONIN ORAL Take 5 mg by 0 Ac tive mouth daily. estrogens, conjugated, Take 0.3 mg 0 Active (PREMARIN) 0.3 MG by mouth tablet daily. Take daily for 21 days then do not take for 7 days. oxyCODone-acetaminophen Take 1 0 Active (LYNOX) 7.5-300 mg per tablet by tabletIndications: mouth every acute pain 4 (four) hours as needed for moderate pain .acute pain. tiZANidine (ZANAFLEX) 4 Take 4 mg by 0 Active MG tablet mouth 2 (two) times a day as needed for muscle spasms. PREMARIN 0.3 mg tablet Take 0.3 mg 3 10/31/1908/01 Discontinued by mouth 16 020 once daily. magnesium oxide Take 400 mg 0 Di scontinued (MAG-OX) 400 mg tablet by mouth 020 (Therapy daily. completed) ascorbic acid, vitamin Take 1,500 0 Discontinued C, (vitamin C) 100 MG mg by mouth 020 (Therapy tablet daily. completed) omega-3 fatty acids Take 300 mg 0 Discontinued (FISH OIL) 300 mg by mouth 020 (T herapy capsule daily. completed) CHOLECALCIFEROL, Take 2,000 0 Di scontinued VITAMIN D3, (D3-2000 Units by 020 (Therapy ORAL) mouth daily. complet ed) multivitamin with Take 1 0 Di scontinued minerals tablet tablet by 020 (The rapy mouth daily. complet ed) potassium chloride Take 10 mEq 0 04/09/20 Discontinued (K-DUR,KLOR-CON) 10 MEQ by mouth 17 020 (Therapy CR tablet daily. completed) CREON 12,000-38,000 TAKE ONE 270 capsule 2 08/03/19 Discontinued -60,000 unit CAPSULE BY 18 020 (Thera py capsule,delayed MOUTH 3 comp leted) release(DR/EC) capsule TIMES A DAY WITH A MEAL linaclotide (LINZESS) Take 145 mcg 0 08/01 Discontinued 145 mcg capsule by mouth as 020 needed. doxycycline Take 100 mg 0 Discon tinued (VIBRAMYCIN) 100 MG by mouth 020 (Stop Taking at capsule daily. Discharge) amitriptyline (ELAVIL) 20 mg = 2 0 08/19/19 Discontinued 10 MG tablet tab, PO, Bedtime, # 180 tab, 3 Refill(s), Pharmacy: [facility]/pharmacy #[id number] buprenorphine (BELBUCA) 150 0 10/20/19 Discontinued 150 mcg film buccal microgram = 19 020 film 1 ea, BUC, BID, 0 Refill(s) ondansetron (Zofran) 4 FOUR TIMES 0 01/13/20 Discontinued MG tablet DAILY PRN 16 020 For Nausea / Vomiting Active Problems Problem Noted Date Follow-up examination following surgery 10/19/2019 S/P lumbar laminectomy 09/19/2019 DDD (degenerative disc disease), lumbar 08/14/2019 Spinal stenosis of lumbar region with neurogenic julieth ication 08/14/2019 Thoracic radiculopathy 08/14/2019 Claudication 07/04/2019 Bilateral carotid artery stenosis 06/06/2019 PAD (peripheral artery disease) 06/06/2019 Chronic back pain 10/05/2017 Generalized abdominal pain 08/30/2017 Right upper quadrant pain 07/26/2017 Slow transit constipation 07/26/2017 History of cholecystectomy 07/26/2017 Essential hypertension 07/26/2017 Splenic artery aneurysm 07/26/2017 Anxiety 07/26/2017 Encounters Date Type Specialty Care Team Description 10/19/2019 Office Visit Neurosurgery Triston Noel Follow-up exami nation following surgery (Primary Dx); MD Cehl S/P lumbar lami nectomy 10/19/2019 Travel 09/26/2019 Travel 09/19/2019 Anesthesia Event General Surgery Douglas [place]more MD [place], Stacy Joan, VIK 09/19/2019 Surgery General Surgery Triston Noel LUMBAR JAQUI ECTOMY MD Chel FOR DECOMRESSIO N, POSSIBLE DISCEC JAH, BILATERAL L3-S1 09/19/2019 - Hospital Encounter Neurosurgery Triston Noel S/Maryjane lumba r laminectomy; 09/22/2019 MD Chel Spinal stenosis , lumbar region with neurogenic claudication 09/11/2019 Pre-Admit Testing Pre-Admission Triston Noel Preop mary ting Appointment Testing MD Chel (Primary Dx) 09/11/2019 Office Visit Neurosurgery Triston Noel Spinal stenosis of lumbar region with neurogenic claudication (Primary Dx); MD Chel DDD (degenerati ve disc disease), lumbar 09/11/2019 Travel 09/08/2019 Telephone Radiology Torrie Cobb BUSINESS ANALYTICS ANALYST 09/06/2019 Hospital Encounter Radiology Triston Noel Thoracic MD Chel radiculopathy 09/06/2019 Hospital Encounter Radiology Triston Noel Spinal st enosis of G., MD lumbar region, unspecified whe ther neurogenic claudication pr esent 09/06/2019 Hospital Encounter Radiology Triston Noel Lumbar st enosis with neurogenic claudication; MD Chel Radiculopathy o f thoracic region 09/06/2019 Travel 09/04/2019 Travel 09/04/2019 Telephone Radiology Sonam Arroyo RN 08/30/2019 Telephone Radiology Sonam Arroyo RN 08/29/2019 Telephone Radiology Sonam Arroyo RN 08/29/2019 Orders Only Neurosurgery Wanda Cotter, Lumbar stenosis with neurogenic claudication (Primary Dx); ENGINE DESIGNER Radiculopathy o f thoracic region 08/22/2019 Orders Only Neurosurgery Wanda Cotter, Thoracic radicu lopathy (Primary Dx); ENGINE DESIGNER Spinal stenosis of lumbar region, unspecified whether neurogenic claudication present 08/14/2019 Hospital Encounter Radiology Triston Noel MD 08/14/2019 Hospital Encounter Radiology Triston Noel MD 08/14/2019 Office Visit Triston Brown 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 (Primary Dx); MD Chel DDD (degenerati ve disc disease), lumbar; Spinal stenosis of lumbar region with neurogenic claudication; Claudication (H CC); Thoracic radicu lopathy 08/14/2019 Hospital Encounter Triston Harper Lumbar ra diculopathy MD Chel 08/14/2019 Hospital Encounter Radiology Triston Noel Lumbar ra diculbessie Milligan MD 08/14/2019 Travel 08/10/2019 Travel 08/07/2019 Travel 08/02/2019 Abstract Neurosurgery Wanda Cotter, ENGINE DESIGNER 07/27/2019 Travel 07/04/2019 Office Visit Cardiology Ibis Torres Essential hyper tension (Primary Dx); MD Danitza Claudication (H CC) 07/04/2019 Orders Only Triston Brown Lumbar radiculo tr MD Chel (Primary Dx) 06/06/2019 Lab Lab Ibis Torres PAD (peripheral R., MD artery disease) (HCC) 06/06/2019 Office Visit Cardiology Ibis Torres PAD (peripheral artery disease) (HCC) (Primary Dx); MD Danitza Bilateral carot id artery stenosis after 10/29/2018 Family History Medical History Relation Name Comments Cancer Father Alona Liver cancer Father Alona Kwong Liver disease Father Alona Kwong Lung cancer Father Alona Heart disease Maternal Grandfather Hypertension Maternal Grandfather Heart disease Maternal Grandmother Hypertension Maternal Grandmother Cancer Mother Herminia Colon cancer Mother Herminia Ovarian cancer Mother Herminia Stomach cancer Mother Herminia Kwong Relation Name Status Comments Father Alona Maternal Grandfather Maternal Grandmother Mother Herminia Social History Tobacco Use Types Packs/Day Years Used Date Never Smoker 0 0 Smokeless Tobacco: Never Used Alcohol Use Drinks/Week oz/Week Comments No Sex Assigned at Date Recorded Not on file Job Start Date Occupation Industry Not on file Not on file Not on file Travel History Travel Start Travel End No recent travel history available. COVID-19 Exposure Response Date Recorded In the last month, have you been in contact with No / Unsure 10/19/2019 10:11 AM CDT someone who was confirmed or suspected to have Coronavirus / COVID-19? Last Filed Vital Signs Vital Sign Reading Time Taken Comments Blood Pressure 153/70 09/22/2019 7:44 AM CDT Pulse 65 09/22/2019 7:44 AM CDT Temperature 36.8 C (98.2 F) 09/22/2019 7:44 AM CDT Respiratory Rate 18 09/22/2019 7:44 AM CDT Oxygen Saturation 97% 09/22/2019 7:44 AM CDT Inhaled Oxygen Concentration - - Weight 80.2 kg (176 lb 14.4 oz) 09/19/2019 10:00 AM CDT Height 167.6 cm (5' 6") 09/19/2019 10:00 AM CDT Body Mass Index 28.55 09/19/2019 10:00 AM CDT Plan of Treatment Health Maintenance Due Date Last Done Comments CERVICAL CANCER SCREENING 1974 BREAST CANCER SCREENING 12/10/2003 COLONOSCOPY SCREENING 12/10/2003 SHINGLES VACCINES (#1) 12/10/2003 65+ PNEUMOCOCCAL VACCINE (1 of 2 - PCV13) 2018 INFLUENZA VACCINE 12/02/2019 Implants Implanted Type Area Language Assistant Device Shelf Model / Identifier Expiration Serial / Date Lot System Spine Selnt For Dural Selng Exact 5ml Duraseal - [id number] Cardiovascular N/A: [employer] 11/[id number] / Implanted: Qty: 1 on 09/19/2019 by Triston Noel MD at [facility] Implants N/A [employer] / NEURO [id number] Procedures Procedure Name Priority Date/Time Associated Diagnosis Comme nts URINE CULTURE STAT 09/20/2019 7:30 Results fo r this PM CDT procedure are i n the results section. CT CERVICAL SPINE WO Routine 09/20/2019 6:46 Res ults for this CONTRAST PM CDT procedure are i n the results section. CT HEAD WO CONTRAST STAT 09/20/2019 6:45 Resu lts for this PM CDT procedure are i n the results section. CT LUMBAR SPINE WO Routine 09/20/2019 6:43 Resul ts for this CONTRAST PM CDT procedure are i n the results section. HC COMPLETE BLD COUNT Routine 09/20/2019 5:36 Re sults for this W/AUTO DIFF PM CDT procedure are i n the results section. AMMONIA LEVEL Routine 09/20/2019 5:36 Results fo r this PM CDT procedure are i n the results section. URINALYSIS SCREEN AND STAT 09/20/2019 5:30 Re sults for this MICROSCOPY, WITH PM CDT procedure a re in REFLEX TO CULTURE the result s section. URINE DRUGS OF ABUSE Routine 09/20/2019 5:30 Res ults for this SCREEN PM CDT procedure are i n the results section. ESTIMATED GFR STAT 09/20/2019 5:20 Results fo r this PM CDT procedure are i n the results section. TROPONIN STAT 09/20/2019 5:20 Results for this PM CDT procedure are i n the results section. PHOSPHORUS LEVEL STAT 09/20/2019 5:20 Results for this PM CDT procedure are i n the results section. MAGNESIUM LEVEL STAT 09/20/2019 5:20 Results for this PM CDT procedure are i n the results section. IONIZED CALCIUM STAT 09/20/2019 5:20 Results for this PM CDT procedure are i n the results section. BASIC METABOLIC PANEL STAT 09/20/2019 5:20 Re sults for this PM CDT procedure are i n the results section. PARTIAL THROMBOPLASTIN STAT 09/20/2019 5:20 R esults for this TIME (PTT) PM CDT procedure are i n the results section. PROTHROMBIN TIME WITH STAT 09/20/2019 5:20 Re sults for this INR PM CDT procedure are i n the results section. ECG 12-LEAD STAT 09/20/2019 4:27 Results for this PM CDT procedure are i n the results section. POC GLUCOSE Routine 09/20/2019 4:25 Results for this PM CDT procedure are i n the results section. ANESTHESIA INTUBATION Routine 09/19/2019 3:59 Re sults for this PM CDT procedure are i n the results section. FL AN ELECTIVE Routine 09/19/2019 3:51 Results f or this ENDOTRACHEAL AIRWAY PM CDT procedur e are in the results section. ARTERIAL LINE Routine 09/19/2019 3:50 Results fo r this PM CDT procedure are i n the results section. XR LUMBAR SPINE 1 VW Routine 09/19/2019 3:40 S/P lumbar Res ults for this PM CDT laminectomy procedure are i n the results section. LAMINECTOMY, LUMBAR 09/19/2019 1:55 Spinal stenosis, PM CDT lumbar region with neurogenic claudication Case Notes EXTENDED RECOVERY NEEDED, MT CROSCOPE, KARISHMA FRAME Special Needs EXTENDED RECOVERY NEEDED, MT CROSCOPE, KARISHMA FRAME SURGICAL PATHOLOGY Routine 09/19/2019 8:26 Resul ts for this REQUEST AM CDT procedure are i n the results section. COVID BIOREF (NCOVB) Routine 09/11/2019 12:19 Preop testing Re sults for this PM CDT procedure are i n the results section. ESTIMATED GFR Routine 09/11/2019 12:11 Results fo r this PM CDT procedure are i n the results section. COMPREHENSIVE Routine 09/11/2019 12:11 Preop testing Results f or this METABOLIC PANEL PM CDT procedure ar e in the results section. HC COMPLETE BLD COUNT Routine 09/11/2019 12:01 Preop testing R esults for this W/AUTO DIFF PM CDT procedure are i n the results section. CT POST MYELOGRAM Routine 09/06/2019 12:33 Thoracic Result s for this THORACIC PM CDT radiculopathy procedure are in the results section. CT POST MYELOGRAM Routine 09/06/2019 12:32 Spinal stenosis of Results for this LUMBAR PM CDT lumbar region, procedure are in unspecified whether the resu lts neurogenic section. claudication present IR MYELOGRAM 2+REG Routine 09/06/2019 11:12 Lumbar stenosis wi th Results for this INCL INJ W S&I AM CDT neurogenic procedure are in claudication the results Radiculopathy of section. thoracic region XR LUMBAR SPINE Routine 08/14/2019 11:06 Lumbar radiculopathy Results for this COMPLETE W BENDING AM CDT procedure are in the results section. XR SPINE SCOLIOSIS Routine 08/14/2019 11:06 Lumbar radiculopat hy Results for this 2-3 VIEWS AM CDT procedure are i n the results section. US CAROTID DUPLEX Routine 06/13/2019 10:00 PAD (peripheral Res ults for this BILATERAL AM MANAGER TAX artery disease) ([facility]) proced ure are in the results section. CT ANGIOGRAM Routine 06/06/2019 5:02 PAD (peripheral Results for this ABDOMINAL AORTA AND PM MANAGER TAX artery disease) ([facility]) procedure are in BILATERAL ILIOFEMORAL the re sults RUNOFF W WO CONTRAST section . ESTIMATED GFR Routine 06/06/2019 3:21 Results fo r this PM MANAGER TAX procedure are i n the results section. POC CREATININE Routine 06/06/2019 3:21 Results f or this PM MANAGER TAX procedure are i n the results section. COPY RECEIVED FROM: Routine 06/06/2019 11:02 Resu lts for this AM MANAGER TAX procedure are i n the results section. COPY(IES) SENT TO: Routine 06/06/2019 11:02 Resul ts for this AM MANAGER TAX procedure are i n the results section. BASIC METABOLIC PANEL Routine 06/06/2019 11:02 PAD (peripheral Results for this AM MANAGER TAX artery disease) ([facility]) proced ure are in the results section. ECG 12-LEAD Routine 06/06/2019 9:55 Bilateral carotid Result s for this AM MANAGER TAX artery stenosis procedure ar e in the results section. MRI SPINE EXTERNAL Routine 03/06/2019 3:47 Resul ts for this STUDY PM MANAGER TAX procedure are i n the results section. after 10/29/2018 Results Urine culture (09/20/2019 7:30 PM CDT) Pathologist Sig nature Urine culture SEE COMMENTComment: [facility] Bacteriuria screen HOSPITAL negative. Specimen Performing Organization Address City/State/Zipcode Phone Number [facility] DEPARTMENT OF PATHOLOGY AND [address] [place], [place] [address] GENOMIC MEDICINE [facility] [address] [place] [id number] Cervical Spine Wo Contrast (09/20/2019 6:46 PM CDT) Specimen Narrative Performed At EXAMINATION: CT CERVICAL SPINE WO CONT RAST [facility] CLINICAL HISTORY: postop mechanical fa ll COMPARISON: None. TECHNIQUE: CT imaging was performed with iterative rec onstruction technique and/or automated exposure cont rol to reduce radiation dose. Findings: Spinal canal contents and ligamentous structures are s uboptimally evaluated on CT. No acute fractures of the cervical spine . Grade 1 anterolisthesis at C4-5. C6-C7 anterior fusion with interbody screws, surgical plate and disc spacer. No evidence of hardware loosenin g or failure. No moderate or severe central canal narr owing. IMPRESSION: No acute fractures of the cervical spine . [facility] Procedure Note Interface, Radiology Results Incoming - 09/20/2019 7:16 PM CDT EXAMINATION: CT CERVICAL SPINE WO CONTRAST CLINICAL HISTORY: postop mechanical fal l COMPARISON: None. TECHNIQUE: CT imaging was performed with iterative reconstruction technique and/or automated exposure control to reduce radiation dose. Findings: Spinal canal contents and ligamentous st ructures are suboptimally evaluated on CT. No acute fractures of the cervical spine . Grade 1 anterolisthesis at C4-5. C6-C7 anterior fusion with interbody scr ews, surgical plate and disc spacer. No evidence of hardware loosening or failure. No moderate or severe central canal narr owing. IMPRESSION: No acute fractures of the cervical spine . [facility] Performing Organization Address City/State/Zipcode Phone Number [facility] [address] [place] [address] CT Head Wo Contrast (09/20/2019 6:45 PM CDT) Specimen Narrative Performed At EXAMINATION: CT HEAD WO CONTRAST [facility] CLINICAL HISTORY: Altered level of consc iousness (LOC) unexplained COMPARISON: None TECHNIQUE: Noncontrast CT of the brain was performed f rom the skull base to the vertex. Both soft tissue and bone reconstructio n algorithms are interpreted. CT imaging was performed with iterative reconstruction techniques and/or automated exposure control to reduce rad iation dose. FINDINGS: No intracranial hemorrhage, extra-axial collection, or mass-effect is seen. No acute cortical infarct is identified. No hy perdense vessel is seen. Mild chronic small vessel ischemic changes are noted i n the cerebral white matter. No air-fluid level is seen in the visualized portions of the paranasal sinuses. Mastoid air cells are clear. IMPRESSION: No acute intracranial abnormality identi fied. [id number] Procedure Note Interface, Radiology Results Incoming - 09/20/2019 6:52 PM CDT EXAMINATION: CT HEAD WO CONTRAST CLINICAL HISTORY: Altered level of consc iousness (LOC) unexplained COMPARISON: None TECHNIQUE: Noncontrast CT of the brain w as performed from the skull base to the vertex. Both soft tissue and bone reconstruction algorithms are interpreted. CT imaging was performed with iterative reconstruction techniques and/or automated exposure control to reduce radiation dose. FINDINGS: No intracranial hemorrhage, extra-axial collection, or mass-effect is seen. No acute cortical infarct is identified. No hyperdense vessel is seen. Mild chronic small vessel ischemic chatman es are noted in the cerebral white matter. No air-fluid level is seen in the visual ized portions of the paranasal sinuses. Mastoid air cells are clear. IMPRESSION: No acute intracranial abnormality identi fied. [id number] Performing Organization Address City/State/Zipcode Phone Number [facility] [address] [facility] [place] [address] CT Lumbar Spine Wo Contrast (09/20/2019 6:43 PM CDT) Specimen Narrative Performed At EXAMINATION: CT LUMBAR SPINE WO CONTRA ST [facility] CLINICAL HISTORY: postop mechanical fa ll COMPARISON: September 06, 2019 TECHNIQUE: CT imaging was performed with iterative rec onstruction technique and/or automated exposure cont rol to reduce radiation dose. IMPRESSION: 5 nonrib-bearing lumbar type vertebrae. Lumbar spine alignment is within normal limits. No fractures or aggressive bony lesions. Interval laminectomy changes at L4 and L5 with recent postsurgical changes in the epidural space and overly ing soft tissues. No moderate or severe central canal narr owing. Stable spondylotic foraminal narrowing a t L5-S1 bilaterally. [facility] Procedure Note Interface, Radiology Results Incoming - 09/20/2019 7:20 PM CDT EXAMINATION: CT LUMBAR SPINE WO CONTRAST CLINICAL HISTORY: postop mechanical fal l COMPARISON: September 06, 2019 TECHNIQUE: CT imaging was performed with iterative reconstruction technique and/or automated exposure control to reduce radiation dose. IMPRESSION: 5 nonrib-bearing lumbar type vertebrae. Lumbar spine alignment is within normal limits. No fractures or aggressive bony lesions. Interval laminectomy changes at L4 and L 5 with recent postsurgical changes in the epidural space and overlying soft tissues. No moderate or severe central canal narr owing. Stable spondylotic foraminal narrowing a t L5-S1 bilaterally. [facility] Performing Organization Address City/[facility]/Zipcode Phone Number [facility] [address] [place] [address] CBC with platelet and differential (09/20/2019 5:36 PM CDT)Only the most recent of2 resultswithin the time period is included. WBC 13.52 (H) 4.50 - 11.00 [facility] k/uL HOSPITAL RBC 4.10 (L) 4.20 - 5.50 [facility] m/uL HOSPITAL HGB 12.9 12.0 - 16.0 [facility] g/dL HOSPITAL HCT 39.3 37.0 - 47.0 % [facility] MCV 95.9 82.0 - 100.0 [facility] MCH 31.5 27.0 - 34.0 pg [facility] MCHC 32.8 31.0 - 37.0 [facility] gdL [facility] RDW - [place] 42.5 37.0 - 55.0 fL [facility] MPV 10.4 8.8 - 13.2 fL [facility] Platelet count 229 150 - 400 k/uL [facility] Nucleated RBC 0.00 /100 WBC [facility] Neutrophils 78.5 (H) 39.0 - 69.0 % [facility] Lymphocytes 11.5 (L) 25.0 - 45.0 % [facility] Monocytes 9.4 0.0 - 10.0 % [facility] Eosinophils 0.0 0.0 - 5.0 % [facility] Basophils 0.2 0.0 - 1.0 % [facility] Immature granulocytes 0.4Comment: 0.0 - 1.0 % [facility] "Immature HOSPITAL granulocytes" (promyelocytes , myelocytes, metamyelocytes ) Specimen Blood Performing Organization Address City/[facility]/Zipcode Phone Number [facility] DEPARTMENT OF PATHOLOGY AND [address] [place] [phone] GENOMIC MEDICINE [address] [address] Ammonia level (09/20/2019 5:36 PM CDT) Pathologist Sig nature Ammonia 19 11 - 51 umol/L [facility] Specimen Blood Performing Organization Address City/[facility]/Zipcode Phone Number [facility] DEPARTMENT OF PATHOLOGY AND [address] [place] [phone] [place] [id number] [place] [address] Urinalysis screen and microscopy, with reflex to culture (09/20/2019 5:30 PM CDT) Specimen site Clean catch [facility] Color, UA Straw [facility] Appearance, UA Clear [facility] Specific gravity, UA 1.003 1.001 - 1.035 [facility] pH, UA 7.0 5.0 - 8.5 [facility] Protein, UA Negative Negative [facility] Glucose, UA Negative Negative [facility] Ketones, UA Negative Negative [facility] Bilirubin, UA Negative Negative [facility] Blood, UA Negative Negative [facility] Nitrite, UA Negative Negative [facility] Urobilinogen, UA <2.0 <2.0 [facility] Leukocyte esterase, Negative Negative [facility] Epithelial cells, UA 5 /HPF [facility] WBC, UA 1 0 - 4 /HPF [facility] RBC, UA 1 0 - 5 /HPF [facility] Bacteria, UA Few None seen [facility] Yeast, UA None seen [facility] Yeast with None seen [facility] pseudohyphae, HOSPITAL Specimen Urine Performing Organization Address City/State/Zipcode Phone Number [facility] DEPARTMENT OF PATHOLOGY AND [address] [place], [place] [phone] [address] [address] Urine drugs of abuse screen (09/20/2019 5:30 PM CDT) Amphetamine screen, Negative [place] urine [facility] Barbiturate screen, Negative [place] urine [facility] Benzodiazepine Negative [place] screen, urine [facility] Cocaine screen, urine Negative [facility] Methadone metabolite Negative [place] (EDDP), urine [facility] Opiates screen, urine Negative [facility] Oxycodone screen, Positive (A) [place] urine [facility] Phencyclidine screen, Negative [place] [facility] Tricyclic screen, Negative [place] [facility] Cannabinoid screen, Negative [place] urine Comment: [facility] Drug screen minimum concentration of detectability HOSPITAL Amphetamines 1000 ng/mL Barbiturates 200 ng/mL Benzodiazepines 300 ng/mL Cocaine 300 ng/mL Methadone 300 ng/mL Opiates 300 ng/mL Oxycodone 300 ng/mL Phencyclidine 25 ng/mL Cannabinoids 50 ng/mL Tricyclics 1000 ng/mL Results are from screening tests and should only be used for medical evaluation. Drug testing for legal purposes requires definitive (or confirmatory) testing methods, which are available upon request. Contact the laboratory if definitive testing is requir ed. Specimen Urine Performing Organization Address City/State/Zipcode Phone Number [facility] DEPARTMENT OF PATHOLOGY AND [address] [phone] [address] Estimated GFR (09/20/2019 5:20 PM CDT)Only the most recent of3 resultswithin the time period is included. Estimated GFR 82 mL/min/1.73 [facility] Comment: m2 HOSPITAL Catergory Units Interpretation G1 >=90 Normal or high G2 60-89 Mildly decreased G3a 45-59 Mildly to moderately decreas ed G3b 30-44 Moderately to severely decre ased G4 15-29 Severely decreased G5 <15 Kidney failure The eGFR was calculated using the Chronic Kidney Disea se Epidemiology Collaboration (CKD-EPI) equation. Interpretation is based on recommendations of the National Kidney Foundation-Kidney Disease Outcomes Mike lity Initiative (NKF-KDOQI) published in 2014. Specimen Performing Organization Address City/State/Zipcode Phone Number [facility] DEPARTMENT OF PATHOLOGY AND [phone] [address] Troponin (09/20/2019 5:20 PM CDT) Troponin 0.013 0.000 - 0.040 [facility] Comment: ng/mL HOSPITAL In patients suspected of having a myocardial infarctio n, along with all other appropriate clinical measures and actions includ ing ECG and other diagnostics as appropriate, measure Ultra TnI at 0 hrs and at 3 hrs. Myocardial infarction VERY LIKELY The 0 hr TnI level is > 0.10 ng/mL Myocardial infarction LIKELY The 0 hr TnI level is > 0.04 ng/mL and 3 hr level is i ncreased or decreased by at least 0.020 ng/mL Myocardial infarction VERY UNLIKELY Both the 0 hr and 3 hr TnI levels <= 0.04 ng/mL(within normal limits) OR 0 hr is > 0.04 ng/mL and 3 hr is increased OR decreased by less than 0.020 ng/mL Specimen Blood Performing Organization Address City/[facility] Phone Number [facility] DEPARTMENT OF PATHOLOGY AND [address] [place], [place] [phone] [address] [place] [phone] Partial thromboplastin time, activated (09/20/2019 5:20 PM CDT) [facility] PTT 24.7 23.0 - 36.0 [facility] Comment: [facility] PTT therapeutic range for unfractionated heparin is 61.0-112.0 seconds which corresponds to Anti-Xa 0.3-0.7 U/ml. Specimen Blood Performing Organization Address [facility] Phone Number [facility] DEPARTMENT OF PATHOLOGY AND [address] [place] [address] [phone] [address] Prothrombin time with INR (09/20/2019 5:20 PM CDT) [facility] Prothrombin time 13.3 11.5 - 14.5 [facility] INR 1.0 [place] Comment: [facility] International Normalized Ratio (INR) is a therapeu [facility] HOSPITAL monitoring tool for patients who are stable on oral anticoagulant therapy. An INR of 2.0-3.0 is suggested for deep vein thrombosis/pulmonary embolism. Specimen Blood Performing Organization Address City/[facility] [place] [facility] Cent[facility] Phone Number [facility] DEPARTMENT OF PATHOLOGY AND [address] [place] [address] [phone] [address] Phosphorus level (09/20/2019 5:20 PM CDT) Pathologist Sig nature Phosphorus 2.6 2.4 - 4.5 mg/dL [facility] Specimen Blood Performing Organization Address City/[facility] [place] [facility] Cent[facility]ode Phone Number [facility] DEPARTMENT OF PATHOLOGY AND [address] [place] [address] [phone] [address] Magnesium level (09/20/2019 5:20 PM CDT) Pathologist Sig nature Magnesium 1.8 1.6 - 2.4 mg/dL [facility] Specimen Blood Performing Organization Address City/[facility] [place] [facility] Cent[facility]ode Phone Number [facility] DEPARTMENT OF PATHOLOGY AND [address] [place] [address] [phone] [address] Ionized calcium (09/20/2019 5:20 PM CDT) Pathologist Sig [facility] pH 7.52 [facility] Ionized calcium 1.13 1.11 - 1.32 mmol/L [facility] Specimen Blood Performing Organization Address [facility] Phone Number [facility] DEPARTMENT OF PATHOLOGY AND [address] [place] [address] [phone] [address] Basic metabolic panel (09/20/2019 5:20 PM CDT)Only the most recent of2 results within the time period is included. Pathologist Sig nature Sodium 145 135 - 148 mEq/L [facility] Potassium 3.5 3.5 - 5.0 mEq/L [facility] Chloride 105 98 - 112 mEq/L [facility] CO2 23 (L) 24 - 31 mEq/L [facility] Anion gap 17@ANIO (H) 7 - 15 mEq/L [facility] BUN 9 8 - 23 mg/dL [facility] Creatinine 0.76 0.50 - 0.90 mg/dL [facility] Glucose 142 (H) 65 - 99 mg/dL [facility] Calcium 9.5 8.8 - 10.2 mg/dL [facility] Specimen Blood Performing Organization Address City/[facility] [place] [facility] Phone Number [facility] DEPARTMENT OF PATHOLOGY AND [address] [place] [address] [phone] [address] ECG 12 lead (09/20/2019 4:27 PM CDT)Only the most recent of2 resultswithin the time period is included. Pathologist Sig nature Ventricular rate 88 [facility] Atrial rate 88 [facility] FL interval 164 [facility] QRSD interval 90 [facility] QT interval 356 [facility] QTC interval 430 [facility] P axis 1 58 [facility] QRS axis 1 64 [facility] T wave axis 59 [facility] EKG impression Normal sinus [facility] rhythm-Normal ECG-In automated comparison with ECG of 06-JUN-2019 09:55,-No significant change was found- Specimen Narrative Performed At This result has an attachment that is no t available. Performing Organization Address City/State/Zipcode Phone Number [facility] MUSE [address] [place] [address] POC glucose (09/20/2019 4:25 PM CDT) Pathologist Sig nature POC glucose 133 (H) 65 - 99 mg/dL [facility] Comment: HOSPITAL Bevel Operator Name: Zion Crump Device ID: [id number] Chartable: [facility] Notified RN Specimen Blood Performing Organization Address City/State/Zipcode Phone Number [facility] DEPARTMENT OF PATHOLOGY AND [address] [place] [phone] GENOMIC MEDICINE [address] [address] Airway (09/19/2019 3:59 PM CDT) Narrative Performed At Douglas Gilmore MD 09/19/2019 4:00 PM Airway Performed by: Douglas Gilmore MD Authorized by: Douglas Gilmore MD Duplicate note Airway (09/19/2019 3:51 PM CDT) Narrative Performed At Douglas Gilmore MD 09/19/2019 3:59 PM Airway Date/Time: 09/19/2019 3:51 PM Performed by: Douglas Gilmore MD Authorized by: Douglas Gilmore MD Location: OR Urgency: Elective Difficult Airway: Yes Anesthesiologist: Douglas Gilmore MD Performed by: anesthesiologist Preoxygenated with 100% O2: Yes Mask Ventilation: Easy mask Final Airway Type: Endotracheal airway Technique Used: Flexible bronchoscopy (intubated suc cessfully using FOB. ) Insertion Site: Oral Blade Type: Olson (attempt by Dr gilmore and dr Jose guzman, with Olson 2 and cricoid pressure could not visualize glottis, only abl e to see epiglottis. ) Laryngoscope Blade/Videolaryngoscope Jerardo de Size: 2 Measured from: Lips ETT to Lips (cm): 23 Placement Verified by: CO2 detection, direct visualiza tion, equal breath sounds and fiber optic visualization Number of Attempts at Approach: 2 Arterial line (09/19/2019 3:50 PM CDT) Narrative Performed At Douglas Gilmore MD 09/19/2019 3:51 PM Arterial line Performed by: Douglas Gilmore MD Authorized by: Douglas Gilmore MD Start Time: 09/19/2019 2:21 PM End Time: 09/19/2019 2:25 PM Staff: Anesthesiologist: Bo Gilmore MD Performed by: Anesthesiologist Pre-procedure: patient identified, IV ch ecked, site and side verified, risks and benefits discussed, procedure verified, surgical consent complete, patient position confirmed, mo nitors and equipment checked, pre-op evaluation complete and timeout p erformed prior to procedure MSBT: antiseptic used, all elements of maximal sterile barrier technique followed, hand hygiene performed, cap/go wn used by other personnel and solutions labeled Indications: Indications: hemodynamic monitoring Anesthesia: Anesthesia: General Procedure Details: Arterial Line placement: Placed pos t induction Line placement site: Radial Line placement side: Left Arterial line gauge: 20 G Number of attempts: 1 Ultrasound guidance used: No Post-procedure: Post-procedure: Sterile dressing ap plied Post procedure circulation, sensation , movement: Unchanged Patient tolerance: Patient tolerate d the procedure well with no immediate complications XR Lumbar Spine 1 Vw (09/19/2019 3:40 PM CDT) Specimen Narrative Performed At EXAMINATION: XR LUMBAR SPINE 1 [facility] CLINICAL HISTORY: Z98.890 Other specifie d postprocedural states COMPARISON: Lumbar radiograph 0 IMPRESSION: Single lateral intraoperative radiograph of the lumbar spine in bone and soft tissue filters demonstrates a posterior approach surgical instrument tip directed towards the L4-L5 level with t ip projecting along the inferior aspect of the L4 spin ous process. [id number] Procedure Note Hm Interface, Radiology Results Incoming - 09/19/2019 3:51 PM CDT EXAMINATION: XR LUMBAR SPINE 1 VW CLINICAL HISTORY: Z98.890 Other specifie d postprocedural states COMPARISON: Lumbar radiograph 08/14/2019 IMPRESSION: Single lateral intraoperative radiograph of the lumbar spine in bone and soft tissue filters demonstrates a posterior approach surgical instrument tip directed towards the L4-L5 level with tip projecting along the inferior aspect of the L4 spinous process. [id number] Performing Organization Address City/[facility]/Zipcode Phone Number [facility] [address] [place] [address] Surgical pathology request (09/19/2019 8:26 AM CDT) [facility] DEPARTMENT OF PATHOLOGY AND GENOMIC MEDICINE Surgical pathology See link below [facility] DEPARTMENT OF report for PDF Lab PATHOLOGY AND Report GENOMIC MEDICINE Result status This is Final [facility] DEPARTMENT OF Report for PATHOLOGY AND [id number] GENOMIC MEDICINE Specimen Performing Organization Address [facility] [place] [facility] Cent[facility]ode Phone Number [facility] DEPARTMENT OF PATHOLOGY AND [address] [place] [phone] GENOMIC MEDICINE COVID BioRef (NCOVB) (09/11/2019 12:19 PM CDT) COVID BioRef Not Detected Not Detected [facility] ([facility]OV[facility]) Comment: Source Nasopharyngeal Swab Testing performed at [facility] [address] [place] [id number] NOTE: Please consider re-collection of a new specimen, if clinically indicated. NOTE: The COVID-19 assay has been cleared by the U.S. Food and Drug Administration under the Emergency Use Authorization ( EUA). [employer] is designated as a high complexity labora tory by the Clinical Laboratory Improvement Amendments of 1988(CLIA) and is qualified to perform this test. ASSAY INFORMATION: Real Time RT-PCR REVISED REPORT, Previously reported as: NOTE: Please c onsider re-collection of a new specimen, if clinically indicated. NOTE: The COVID-19 assay has been cleared by the U.S. Food and Drug Administration under the Emergency Use Authorization ( EUA). [facility] is designated as a high complexity labora tory by the Clinical Laboratory Improvement Amendments of 1988(CLIA) and is qualified to perform this test. ASSAY INFORMATION: Real Time RT-PCR (Reported 2019 12:29) Specimen Nasopharyngeal Performing Organization Address City/[facility]/Zipcode Phone Number [facility] DEPARTMENT OF PATHOLOGY [address] [place] [address] AND [email or web address] [facility] [address] [address] Comprehensive metabolic panel (09/11/2019 12:11 PM CDT) Sodium 142 135 - 148 [facility] mEq/L [facility] Potassium 4.0 3.5 - 5.0 [facility] mEq/L [facility] Chloride 100 98 - 112 [facility] mEq/L [facility] CO2 26 24 - 31 mEq/L [facility] Anion gap 16@ANIO (H) 7 - 15 mEq/L [facility] BUN 26 (H) 8 - 23 mg/dL [facility] Creatinine 0.90 0.50 - 0.90 [facility] mg/dL HOSPITAL Glucose 111 (H) 65 - 99 mg/dL [facility] Calcium 10.5 (H) 8.8 - 10.2 [facility] mg/dL [facility] Protein 7.6 6.3 - 8.3 [facility] Comment: g/dL HOSPITAL - 4.6-7.0 g/dL 1 week 4.4-7.6 g/dL 7 months-1year 5.1-7.3 g/dL 1-2 years 5.6-7.5 g/dL >3 years 6.0-8.0 g/dL 18-150 6.3-8.3 g/dL Albumin 4.0 3.5 - 5.0 [facility] g/dL HOSPITAL A/G ratio 1.1 0.7 - 3.8 [facility] Alkaline phosphatase 82 35 - 104 U/L [facility] AST 20 10 - 35 U/L [facility] ALT 17 5 - 50 U/L [facility] Total bilirubin 0.3 0.0 - 1.2 [facility] mg/dL HOSPITAL Specimen Blood Performing Organization Address City/[facility]/Zipcode Phone Number [facility] DEPARTMENT OF PATHOLOGY AND [address] [place] [address] [place] [address] CT Post Myelogram Thoracic (09/06/2019 12:33 PM CDT) Specimen Narrative Performed At EXAMINATION: CT POST MYELOGRAM THORACI C [facility] CLINICAL HISTORY: M54.14 Radiculopathy thoracic re gion, thoracic radiculopathy COMPARISON: None. TECHNIQUE: Axial helical CT images throughout the THORACIC spin e were performed after intrathecal contrast. Sagittal and coronal ref ormatted images were generated. CT scans are performed using radiation dose reduction techniques. Technical factors are evaluated and adjusted to ensure appropriate moderation of exposure. Automated dose management rep nology is applied to adjust radiation exposure while achie ving a highly diagnostic quality image. FINDINGS: Sagittal and coronal image reconstructions demonstrate mild disc space narrowing with anterior. There is no significant central canal st enosis. There is no cord compression. T8-9: There is a shallow right paracentral protrusion without cord compression. There is no definite nerve root impingement. The remainder of the thoracic subarachnoid space shows no extrinsic compression or root sleeve defects. There are no paravertebral abnormalities . IMPRESSION: Shallow right paracentral protrusion at T8-9 without d efinite cord compression or nerve root impingement. However clinica l correlation for right C6 radiculopathy is recommended. [facility]-[id number] Procedure Note Interface, Radiology Results [facility] - 09/06/2019 12:44 PM CDT EXAMINATION: CT POST MYELOGRAM THORACIC CLINICAL HISTORY: M54.14 Radiculopathy thoracic region, thoracic radiculopathy COMPARISON: None. TECHNIQUE: Axial helical CT images throughout the THORACIC spine were performed after intrathecal contrast. Sagittal and coronal reformatted images were generated. CT scans are performed using radiation dose reduction techniques. Technical factors are evaluated and adjusted to ensure appropriate moderation of exposure. Automated dose management technology is applied to adjust radiation exposure while achievin g a highly diagnostic quality image. FINDINGS: Sagittal and coronal image reconstructio ns demonstrate mild disc space narrowing with anterior. There is no significant central canal st enosis. There is no cord compression. T8-9: There is a shallow right paracentr al protrusion without cord compression. There is no definite nerve root impingement. The remainder of the thoracic subarachno id space shows no extrinsic compression or root sleeve defects. There are no paravertebral abnormalities . IMPRESSION: Shallow right paracentral protrusion at T8-9 without definite cord compression or nerve root impingement. However clinical correlation for right C6 radiculopathy is recommended. [facility]-[id number] Performing Organization Address City/State/Zipcode Phone Number [facility] [address] [place] [address] CT Post Myelogram Lumbar (09/06/2019 12:32 PM CDT) Specimen Addenda Addendum by Ally Leong MD on 2019 5:14 PM ADDENDUM #1 Correction of typographical error Foraminal protrusion at L3-4 on the left with impingement on the left L3 nerve root Narrative Performed At EXAMINATION: CT POST MYELOGRAM LUMBAR [facility] CLINICAL HISTORY: M48.061 Spinal stenosis lumbar r egion without neurogenic claudication, lumbar stenosis COMPARISON: None. TECHNIQUE: Axial helical CT images throughout the LUMBAR spine were performed after intrathecal contrast. Sagittal and coronal ref ormatted images were generated. CT scans are performed using radiation dose reduction techniques. Technical factors are evaluated and adjusted to ensure appropriate moderation of exposure. Automated dose management rep nology is applied to adjust radiation exposure while achie ving a highly diagnostic quality image. FINDINGS: Sagittal and coronal image reconstructions demonstrate degenerative disc space narrowing at L5-S1 and to lesser extent at L3-4 and L4-5 with separation of the lordotic curvature. There is no sign ificant spondylolisthesis or compression fractur e. Sacroiliac joint: There are bilateral sacroiliac degen erative changes worse on the right. L5-S1: There is narrowing of the disc space. There are bilateral facet joint hypertrophic and sclerotic changes in the right bulging with bilateral foraminal stenosis with suspected impingemen t on the bilateral foraminal. L4-5: There is disc bulging with annular bulging, sukhdev tment flavum thickening and facet hypertrophic changes. There is bi lateral foraminal stenosis slightly more pronounced on the left. There i s no significant central canal stenosis. L3-4 there is annular bulging. There is extra foramina l protrusion on the left impinging on the left L3 nerve root. Facet adela int degenerative changes and ligamentum flavum thickening without signi ficant central canal stenosis. L2-3: There is no significant disc bulge or stenosis. L1-2: There is no significant disc bulge or stenosis. T12-L1: There is no significant disc bul ge or stenosis. T11-12: There is no significant disc bul ge or stenosis. IMPRESSION: Relatively severe disc space narrowing at L5-S1 with s pondylotic changes and bilateral foraminal stenosis likely relevant for b ilateral L5 radiculopathy. Annular bulging and spondylotic changes at L4-5 with f oraminal stenosis slightly more pronounced on the left. Extraforaminal protrusion at L3-4 on the left with imp ingement on the right L3 nerve root. [facility]-[id number] Procedure Note Hm Interface, Radiology Results - 09/06/2019 12:43 PM CDT EXAMINATION: CT POST MYELOGRAM LUMBAR CLINICAL HISTORY: M48.061 Spinal stenos is lumbar region without neurogenic claudication, lumbar stenosis COMPARISON: None. TECHNIQUE: Axial helical CT images throughout the LUMBAR spine were performed after intrathecal contrast. Sagittal and coronal reformatted images were generated. CT scans are performed using radiation dose reduction techniques. Technical factors are evaluated and adjusted to ensure appropriate moderation of exposure. Automated dose management technology is applied to adjust radiation exposure while achievin g a highly diagnostic quality image. FINDINGS: Sagittal and coronal image reconstructio ns demonstrate degenerative disc space narrowing at L5-S1 and to lesser extent at L3-4 and L4-5 with separation of the lordotic curvature. There is no significant spondylolisthesis or compression fracture. Sacroiliac joint: There are bilateral sa croiliac degenerative changes worse on the right. L5-S1: There is narrowing of the disc sp brian. There are bilateral facet joint hypertrophic and sclerotic changes in the right bulging with bilateral foraminal stenosis with suspected impingement on the bilateral foraminal. L4-5: There is disc bulging with annular bulging, treatment flavum thickening and facet hypertrophic changes. There is bilateral foraminal stenosis slightly more pronounced on the left. There is no significant central canal stenosis. L3-4 there is annular bulging. There is extra foraminal protrusion on the left impinging on the left L3 nerve root. Facet joint degenerative changes and ligamentum flavum thickening without significant central canal stenosis. L2-3: There is no significant disc bulge or stenosis. L1-2: There is no significant disc bulge or stenosis. T12-L1: There is no significant disc bul ge or stenosis. T11-12: There is no significant disc bul ge or stenosis. IMPRESSION: Relatively severe disc space narrowing a t L5-S1 with spondylotic changes and bilateral foraminal stenosis likely relevant for bilateral L5 radiculopathy. Annular bulging and spondylotic changes at L4-5 with foraminal stenosis slightly more pronounced on the left. Extraforaminal protrusion at L3-4 on the left with impingement on the right L3 nerve root. [facility]-[id number] Performing Organization Address City/State/Zipcode Phone Number [facility] [address] [place] [address] IR Myelogram 2+Reg Incl Inj W S&I (09/06/2019 11:12 AM CDT) Specimen Narrative Performed At EXAMINATION: IR MYELOGRAM 2 REG INCL I NJ W S&I [facility] CLINICAL HISTORY: M48.062 Spinal stenosis lumbar r egion with neurogenic claudication, M54.14 Radiculopathy thorac ic region, lumbar stenosis COMPARISON: None. PROCEDURE After informed consent was obtained, the patient was p laced in the prone position on the fluoroscopy table. The low back was prepped and draped in usual manner an d local anesthesia was made by infiltration with 1% Xylocai ne. Under sterile technique and utilizing fluoroscopic linda dance, lumbar puncture was made at the level of the L2-3 level , uti lizing a 22 Gauge spinal needle. After confirming the subarachnoid locat ion of the tip of the needle by obtaining small amount of CSF the hub of the needle, approximately 10 ml of Omni paque 240 were injected intrathecally. The following findings were noted: 1. Lumbar: Lateral view demonstrates small ventral ext radural indentations on the thecal sac at L3-4 a nd L4-5. There is no significant lumbar thecal sac compression or obvious root sleeve defects. 2. Thoracic: There is no gross extrinsic compression o f the thecal sac. The thoracic area was however not well evaluated and w ill be better evaluated with CT examination. Contrast flowed into the cervical region showing post ACDF changes at C6-7. The root sleeves opacified normally on the right . There is some blunting of the left C6 root sleeve. There were no side effects or competitio ns. 16 images were saved. IMPRESSION: Uneventful thoracolumbar myelography. Mild ventral indentations at L3-4 to L5-S1 without sig nificant stenosis or obvious root sleeve defects. No gross thoracic abnormalities. Mild blunting of the left C6 root sleeve . [facility]-[id number] Procedure Note Interface, Radiology Results Incoming - 09/08/2019 2:49 PM CDT EXAMINATION: IR MYELOGRAM 2 REG INCL INJ W S&I CLINICAL HISTORY: M48.062 Spinal stenos is lumbar region with neurogenic claudication, M54.14 Radiculopathy thoracic region, lumbar stenosis COMPARISON: None. PROCEDURE After informed consent was obtained, the patient was placed in the prone position on the fluoroscopy table. The low back was prepped and draped in u sual manner and local anesthesia was made by infiltration with 1% Xylocaine. Under sterile technique and utilizing fl uoroscopic guidance, lumbar puncture was made at the level of the L2-3 level , utilizing a 22 Gauge spinal needle. After confirming the subarachnoid location of the tip of the needle by obtaining small amount of CSF the hub of the needle, approximately 10 ml of Omnipaque 240 were injected intrathecally. The following findings were noted: 1. Lumbar: Lateral view demonstrates sma ll ventral extradural indentations on the thecal sac at L3-4 and L4-5. There is no significant lumbar thecal sa c compression or obvious root sleeve defects. 2. Thoracic: There is no gross extrinsic compression of the thecal sac. The thoracic area was however not well evaluated and will be better evaluated with CT examination. Contrast flowed into the cervical region showing post ACDF changes at C6-7. The root sleeves opacified normally on the right. There is some blunting of the left C6 root sleeve. There were no side effects or competitio ns. 16 images were saved. IMPRESSION: Uneventful thoracolumbar myelography. Mild ventral indentations at L3-4 to L5- S1 without significant stenosis or obvious root sleeve defects. No gross thoracic abnormalities. Mild blunting of the left C6 root sleeve . [facility]-[id number] Performing Organization Address City/State/Zipcode Phone Number [facility] [address] [place] [address] XR Lumbar Spine Complete W Flex and Ext (08/14/2019 11:06 AM CDT) Specimen Narrative Performed At EXAMINATION: XR LUMBAR SPINE COMPLETE W FLEX & EXTEND [facility] CLINICAL HISTORY: M54.16 Radiculopathy lumbar region, radiculopathy COMPARISON: CTA abdominal aorta 06/06/19 20. FINDINGS:: 6 views of the lumbar spine are obtained, including fl exion and extension images. The lowest functional disc space is assumed to be L5-S1. No evidence of acute fracture or suspici ous osseous lesion. There is minimal grade 1 anterolisthesis at L3-4 on th e neutral view which is very slightly accentuated in flexion but not significant changed in extension. There is also slight retrolisthesis at L2-3 and L1-2 o n the neutral view which are minimally reduced in flexion. There is marked disc space narrowing, mild spondylosis and degenerative change in the disc at L5-S1. . Moderate facet arthropathy at L3-4, L4 -L5 and L5-S1. There are multiple small coils projected anterior to t he spine at L5-S1 on the left. There are surgical clips in the right upper quadrant. IMPRESSION: Degenerative changes without acute abnor mality. [facility]-[id number] Dictated and approved by radiology resid ent/fellow: Cari Thomson M.D. I, Marilyn Charles MD, personally reviewed the images and resident's/fellow's findings and agree with the final report. Procedure Note [facility], Radiology Results Incoming - 08/14/2019 11:37 AM CDT EXAMINATION: XR LUMBAR SPINE COMPLETE W FLEX & EXTEND CLINICAL HISTORY: M54.16 Radiculopathy lumbar region, radiculopathy COMPARISON: CTA abdominal aorta 0. FINDINGS:: 6 views of the lumbar spine are obtained , including flexion and extension images. The lowest functional disc space is assumed to be L5-S1. No evidence of acute fracture or suspici ous osseous lesion. There is minimal grade 1 anterolisthesis at L3-4 on the neutral view which is very slightly accentuated in flexion but not significant changed in extension. There is also slight retrolisthesis at L 2-3 and L1-2 on the neutral view which are minimally reduced in flexion. There is marked disc space narrowing, mi ld spondylosis and degenerative change in the disc at L5-S1. . Moderate facet arthropathy at L3-4, L4 -L5 and L5-S1. There are multiple small coils projected anterior to the spine at L5-S1 on the left. There are surgical clips in the right upper quadrant. IMPRESSION: Degenerative changes without acute abnor mality. [facility]-[id number] Dictated and approved by radiology resid ent/fellow: Cari Thomson M.D. I, Marilyn Charles MD, personally review ed the images and resident's/fellow's findings and agree with the final report. Performing Organization Address City/State/Zipcode Phone Number [facility] [address] [place] [address] XR Spine Scoliosos 2-3 Views (08/14/2019 11:06 AM CDT) Specimen Narrative Performed At EXAMINATION: XR SPINE [facility]OSIS 2-3 [facility] CLINICAL HISTORY: M54.16 Radiculopathy lumbar region, radiculopathy COMPARISON: None IMPRESSION: 12 rib-bearing thoracic vertebrae and 5 lumbar vertebrae. Mild left convex upper thoracic curvature with Luong an gle measuring 9 degrees from the superior endplate of T1 to the inferior endplate of T4. Minor curvatures of the remainder of the thoracic and lumbar spine with Luong angles measuring 5 degrees or less. A coronal benjie line drawn inferiorly from the mid C7 vertebral body terminates approximately 8 mm to the rig ht of the mid S1 level. A sagittal benjie line drawn inferiorly from the mid C7 vertebral body terminates approximately 3 cm anterior to the posterio r aspect of the superior endplate of S1. Mild thoracic kyphosis and mild exaggeration of the carine mbar lordosis superiorly. No significant pelvic tilt. Anterior spinal fusion C6-C7 with anterior plate and s crew fixation and interbody graft. [id number] Procedure Note Interface, Radiology Results Incoming - 08/14/2019 11:14 AM CDT EXAMINATION: XR SPINE SCOLIOSIS 2-3 VIEWS CLINICAL HISTORY: M54.16 Radiculopathy lumbar region, radiculopathy COMPARISON: None IMPRESSION: 12 rib-bearing thoracic vertebrae and 5 lumbar vertebrae. Mild left convex upper thoracic curvatur e with Luong angle measuring 9 degrees from the superior endplate of T1 to the inferior endplate of T4. Minor curvatures of the remainder of the thoracic and lumbar spine with Luong angles measuring 5 degrees or less. A coronal benjie line drawn inferiorly fr om the mid C7 vertebral body terminates approximately 8 mm to the right of the mid S1 level. A sagittal benjie line drawn inferiorly f rom the mid C7 vertebral body terminates approximately 3 cm anterior to the posterior aspect of the superior endplate of S1. Mild thoracic kyphosis and mild exaggera tion of the lumbar lordosis superiorly. No significant pelvic tilt. Anterior spinal fusion C6-C7 with anteri or plate and screw fixation and interbody graft. [id number] Performing Organization Address City/State/Zipcode Phone Number [facility] [address] [place] [address] Us carotid duplex (06/13/2019 10:00 AM MANAGER TAX) Specimen Narrative Performed At [facility] Carotid Tonya ry Ultrasound Report Pat.Name: HALEY PORTER Pat.ID: [id number] .Date: 06/13/2019 Refer.MD: IBIS TORRES MD Exam Time: 9:13:00 AM Study Type:C arotid Age: 8 1955,63Y Sex: FEMALE Sonogrphr: Cyn Montoya RVT Pat. Stat.:[facility] ol: SD, CPT - 4: 07316 Echo Shira nt ID:[id number] Order ID: [id number] Reason for Study:Carotid artery disease, Hx of PAD, Essential HTN SUMMARY: CAROTID ARTERY SCAN RIGHT: There is smooth intimal lining in the common carotid artery. There is hard and calcified plaque not ed in the bulb extending into the proximal internal carotid artery. Colorflow is undisturbed. There is antegrade flow in the vertebral artery. LEFT: There is smooth intimal lining in the common carotid artery. There is hard and calcified plaque not ed in the bulb extending into the proximal internal carotid artery. Colorflow is undisturbed. There is antegrade flow in the vertebral artery. PRELIMINARY FINDINGS 1. <50% stenosis in the bulb/internal carotid artery, bilaterally. 2. There is antegrade flow in the bilate ral vertebral artery. PHYSICIAN INTERPRETATION Bilateral carotid duplex examination dem onstrated atherosclerotic plaques in the bulbs/internal carotid ar teries. Less than 50% stenosis in the bulb and i nternal carotid artery, bilaterally. Both vertebral arteries are antegrade. FINDINGS: Carotid Findings: Right Left Verteb.Flw Antegrade Antegrade Subclavian Triphasic Biphasic MEASUREMENTS: DOPPLER Right CCA Dist CCA Dist PSV 59.1 cm/s CCA Dist EDV 18.6 cm/s Right CCA Mid CCA Mid PSV 73.9 cm/s CCA Mid EDV 15.3 cm/s Right CCA Prox CCA Prox PSV 93.3 cm/s CCA Prox EDV 13.1 cm/s Right Bulb Bulb PSV 52.5 cm/s Bulb EDV 18.6 cm/s Right ECA Prox ECA Prox PSV 68.9 cm/s ECA Prox EDV 5.47 cm/s Right ICA Dist ICA Dist PSV 77.5 cm/s ICA Dist EDV 27.7 cm/s Right ICA Mid ICA Mid PSV 86.6 cm/s ICA Mid EDV 35.6 cm/s Right ICA Prox ICA Prox PSV 48.5 cm/s ICA Prox EDV 17.7 cm/s Right Vertebral Vertebral PSV 50.3 cm/s Vertebral EDV 13.1 cm/s Right SCA Prox SCA Prox PSV 109 cm/s SCA Prox EDV 0 cm/s Left CCA Dist CCA Dist PSV 64.5 cm/s CCA Dist EDV 19.7 cm/s Left CCA Mid CCA Mid PSV 77.1 cm/s CCA Mid EDV 20.6 cm/s Left CCA Prox CCA Prox PSV 103 cm/s CCA Prox EDV 18.9 cm/s Left Bulb Bulb PSV 84.2 cm/s Bulb EDV 24.1 cm/s Left ECA Prox ECA Prox PSV 78.9 cm/s ECA Prox EDV 8.57 cm/s Left ICA Dist ICA Dist PSV 94.9 cm/s ICA Dist EDV 34.9 cm/s Left ICA Mid ICA Mid PSV 69.6 cm/s ICA Mid EDV 22.3 cm/s Left ICA Prox ICA Prox PSV 64.5 cm/s ICA Prox EDV 18.6 cm/s Left Vertebral Vertebral PSV 47.1 cm/s Vertebral EDV 10.9 cm/s Left SCA Prox SCA Prox PSV 147 cm/s SCA Prox EDV 0 cm/s Right ICA/CCA Ratio ICA/CCA PSV 0.656 Left ICA/CCA Ratio ICA/CCA PSV 0.837 Signed 06/14/2019 06:00 AM Ibis Torres MD Procedure Note Interface, Radiology Results In - 2019 6:01 AM MANAGER TAX [facility] Carotid Artery Ultras ound Report Pat.Name: HALEY PORTER Pat.I D: [id number] .Date: 06/13/2019 Refer .MD: IBIS TORRES MD Exam Time: 9:13:00 AM Study Type:Carotid Age: 8 1955,63Y Sex: FEMALE Sonogrphr: Cyn Montoya RVT Pat. Stat.:Outpatient Room: [facility] Vol: SD, CPT - 4: 98847 Echo Event ID:[id number] Order ID: [id number] Reason for Study:Carotid artery disease, Hx of PAD, Essential HTN SUMMARY: CAROTID ARTERY SCAN RIGHT: There is smooth intimal lining i n the common carotid artery. There is hard and calcified plaque note d in the bulb extending into the proximal internal carotid artery. C olorflow is undisturbed. There is antegrade flow in the vertebral artery. LEFT: There is smooth intimal lining i n the common carotid artery. There is hard and calcified plaque note d in the bulb extending into the proximal internal carotid artery. C olorflow is undisturbed. There is antegrade flow in the vertebral artery. PRELIMINARY FINDINGS 1. <50% stenosis in the bulb/internal c arotid artery, bilaterally. 2. There is antegrade flow in the bilate ral vertebral artery. PHYSICIAN INTERPRETATION Bilateral carotid duplex examination dem onstrated atherosclerotic plaques in the bulbs/internal carotid ar teries. Less than 50% stenosis in the bulb and i nternal carotid artery, bilaterally. Both vertebral arteries are antegrade. FINDINGS: Carotid Findings: Right Left Verteb.Flw Antegrade Antegrade Subclavian Triphasic Biphasic MEASUREMENTS: DOPPLER Right CCA Dist CCA Dist PSV 59.1 cm/s CCA Dist EDV 18.6 cm/s Right CCA Mid CCA Mid PSV 73.9 cm/s CCA Mid EDV 15.3 cm/s Right CCA Prox CCA Prox PSV 93.3 cm/s CCA Prox EDV 13.1 cm/s Right Bulb Bulb PSV 52.5 cm/s Bulb EDV 18.6 cm/s Right ECA Prox ECA Prox PSV 68.9 cm/s ECA Prox EDV 5.47 cm/s Right ICA Dist ICA Dist PSV 77.5 cm/s ICA Dist EDV 27.7 cm/s Right ICA Mid ICA Mid PSV 86.6 cm/s ICA Mid EDV 35.6 cm/s Right ICA Prox ICA Prox PSV 48.5 cm/s ICA Prox EDV 17.7 cm/s Right Vertebral Vertebral PSV 50.3 cm/s Vert ebral EDV 13.1 cm/s Right SCA Prox SCA Prox PSV 109 cm/s SCA Prox EDV 0 cm/s Left CCA Dist CCA Dist PSV 64.5 cm/s CCA Dist EDV 19.7 cm/s Left CCA Mid CCA Mid PSV 77.1 cm/s CCA Mid EDV 20.6 cm/s Left CCA Prox CCA Prox PSV 103 cm/s CCA Prox EDV 18.9 cm/s Left Bulb Bulb PSV 84.2 cm/s Bulb EDV 24.1 cm/s Left ECA Prox ECA Prox PSV 78.9 cm/s ECA Prox EDV 8.57 cm/s Left ICA Dist ICA Dist PSV 94.9 cm/s ICA Dist EDV 34.9 cm/s Left ICA Mid ICA Mid PSV 69.6 cm/s ICA Mid EDV 22.3 cm/s Left ICA Prox ICA Prox PSV 64.5 cm/s ICA Prox EDV 18.6 cm/s Left Vertebral Vertebral PSV 47.1 cm/s Vert ebral EDV 10.9 cm/s Left SCA Prox SCA Prox PSV 147 cm/s SCA Prox EDV 0 cm/s Right ICA/CCA Ratio ICA/CCA PSV 0.656 Left ICA/CCA Ratio ICA/CCA PSV 0.837 Signed 06/14/2019 06:00 AM Ibis Torres MD Performing Organization Address City/State/Zipcode Phone Number [facility] [address] [place] [address] CTA Abdominal Aorta And Bilateral Iliofemoral Runoff W Wo Contrast (06/06/2019 5:02 PM MANAGER TAX) Specimen Narrative Performed At EXAMINATION: CT ANGIOGRAM ABDOMINAL AORTA AND BILATE RAL ILIOFEMORAL [facility] RUNOFF W WO CONTRAST CLINICAL HISTORY: I73.9 Peripheral vas cular disease unspecified, PAD TECHNIQUE: Multiple CT angiographic images of the abdo men, pelvis, and bilateral lower extremities were obtained during intra venous administration of iodinated contrast. Multiple compute rized reformatted images as well as 3-D volume rendered im ages were also obtained. CT imaging was performed with iterative reconstruction techniques and/or automated exposure control to reduce rad iation dose. COMPARISON: None. FINDINGS: Abdomen/Pelvis CTA: Status post cholecystectomy and hystere ctomy. Small hiatal hernia is noted. Moderate amount of retained stool is not ed throughout the colon. Abdominal aorta is of normal course, caliber, and cont our without aneurysmal dilatation or focal dissection. A few scatt ered vascular calcifications are seen. The immediate aortic branch vessels to include the yarelis iac, superior mesenteric, bilateral renal, and inferior mesenteric a rteries are well-opacified. Mild stenosis may be present at the le asia of the SMA origin. The pelvic vasculature to include the bilateral common iliac, internal iliac, and external iliac arteries are also normal js meter with additional scattered vascular calcificat ions. The remainder of the visualized aspects of the lung ba ses, liver, stomach, pancreas, adrenals, kidneys, spleen, GI tract , bony and soft tissue structures is unremarkable, apart from degenera tive changes of the spine. Right lower extremity CTA: The right common femoral, superficial femoral, profund a femoris, popliteal, anterior tibialis, posterior tibialis, and peroneal arteries are well-opacified to the level of the a nkle. Left lower extremity CTA: The left common femoral, superficial femoral, profunda femoris, popliteal, anterior tibialis, posterior tibialis, and peroneal arteries are well-opacified to the level of the a nkle. IMPRESSION: Negative exam without identification of an acute intra -abdominal or pelvic process. Intact three-vessel runoff of the bilate ral lower extremities. [facility]-[id number] Procedure Note Hm Interface, Radiology Results Incoming - 06/06/2019 5:24 PM MANAGER TAX EXAMINATION: CT ANGIOGRAM ABDOMINAL AORTA AND BILATERAL ILIOFEMORAL RUNOFF W WO CONTRAST CLINICAL HISTORY: I73.9 Peripheral vasc ular disease unspecified, PAD TECHNIQUE: Multiple CT angiographic imag es of the abdomen, pelvis, and bilateral lower extremities were obtained during intravenous administration of iodinated contrast. Multiple computerized reformatted images as well as 3-D volume rendered im ages were also obtained. CT imaging was performed with iterative reconstruction techniques and/or automated exposure control to reduce radiation dose. COMPARISON: None. FINDINGS: Abdomen/Pelvis CTA: Status post cholecystectomy and hystere ctomy. Small hiatal hernia is noted. Moderate amount of retained stool is not ed throughout the colon. Abdominal aorta is of normal course, ion iber, and contour without aneurysmal dilatation or focal dissection. A few scattered vascular calcifications are seen. The immediate aortic branch vessels to i nclude the celiac, superior mesenteric, bilateral renal, and inferior mesenteric arteries are well-opacified. Mild stenosis may be present at the level of the SMA origin. The pelvic vasculature to include the bi lateral common iliac, internal iliac, and external iliac arteries are also normal diameter with additional scattered vascular calcifications. The remainder of the visualized aspects of the lung bases, liver, stomach, pancreas, adrenals, kidneys, spleen, GI tract, bony and soft tissue structures is unremarkable, apart from degenerative changes of the spine. Right lower extremity CTA: The right common femoral, superficial fe moral, profunda femoris, popliteal, anterior tibialis, posterior tibialis, and peroneal arteries are well-opacified to the level of the ankle. Left lower extremity CTA: The left common femoral, superficial fem oral, profunda femoris, popliteal, anterior tibialis, posterior tibialis, and peroneal arteries are well-opacified to the level of the ankle. IMPRESSION: Negative exam without identification of an acute intra-abdominal or pelvic process. Intact three-vessel runoff of the bilate ral lower extremities. [facility]-[id number] Performing Organization Address City/[facility]/Zipcode Phone Number [facility] [address] [place] [address] POC creatinine (06/06/2019 3:21 PM MANAGER TAX) Pathologist [facility] POC creatinine 0.8 0.5 - 0.9 [facility] Comment: mg/dl HOSPITAL Meter ID: [id number] Bevel Operator ID: Bayron Valencia Specimen Blood - Antecubital, left Performing Organization Address City/[facility]/Zipcode Phone Number [facility] DEPARTMENT OF PATHOLOGY AND [address] [place], [place] [address] GENOMIC MEDICINE [facility] [address] [place] [address] COPY RECEIVED FROM: (06/06/2019 11:02 AM MANAGER TAX) Pathologist Sig nature Copy received from: [facility] Comment: [address] [facility] [address] [place] [address] Specimen Performing Organization Address City/[facility]/Zipcode Phone Number [facility] COPY(IES) SENT TO: (06/06/2019 11:02 AM MANAGER TAX) Pathologist Sig nature Copies/mL [facility] Comment: [address] [facility] [address] [place] [address] Specimen Performing Organization Address City/[facility]/Zipcode Phone Number [facility] MRI Spine External Study (03/06/2019 3:47 PM MANAGER TAX) Specimen Narrative Performed At This exam was not acquired at a [facility] facility and has not been [facility] interpreted by a [facility] Provider. T he exam was imported into our imaging system. Performing Organization Address City/State/Zipcode Phone Number [facility] [address] [place] [address] after 10/29/2018 Insurance Payer Benefit Plan / Subscriber ID Effective Phone Address T ype Group Dates MEDICARE MEDICARE PART A xxxxxxxxxxx 2018-[employer] [place], [place] Medicare AND B ent COMMERCIAL MISC MISC COMMERCIAL xxxxxxxxx 2009-[facility] Commercial ent [phone] (Work) Advance Directives For more information, please contact: [phone] Type Date Recorded Patient Operation Agent Explanati on Advance Directives, Living Will and Medical Power of Regional Sales Associate
--- OUTSIDE RECORDS SUMMARY | 2019-10-30 17:20 | XMS REPORT | Continuity of Care Document ---
:1955 Author Organization [facility] Information [place] Care Team Providers Name Role Phone [facility] Unavailable Un available Problems Problem Status Onset Classification Date Comments Sourc e Date Reported Unspecified 05/09/2017 abdominal pain 018 Radha and ABDOMINAL PAIN/LOSS Active [facility] 018 Agus SURGERY THIS Active [facility] MORNING, PROBLEMS 013 Ga dical BREATHING Center POST FOLLOW UP Active [address] BDDC-WEIGHT LOSS Active [address] 783.21 - ABNORMAL Active OPID LOSS O 576.0 - 013 Radha and POSTCHO ABD PAIN Active [address] Gastroesophageal Resolved Problem 08/06/2019 [place] reflux disease Neuro , (disorder) [place] 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 Cervical Active Problem 08/06/2019 [place] spondylosis Neuro (disorder) Acid reflux Resolved Problem 01/25/2013 [facility] HTN - Hypertension Resolved Problem 01/25/2013 [facility] Ulcer of lower Active Problem 08/06/2019 [facility] her extremity Neuro (disorder) ABDMNAL PAIN UNSPCF Active [facility] Medications Medication Details Route Status Patient Ordering Order Source Instructions Provider Date Aspirin 81 MG 81 mg = 1 tab, Active 05/05/ Mis mckenzie Enteric Coated PO, Daily, # 2020 Neur o Tablet 90 tab, 3 Refill(s) cefdinir 300 MG 300 mg = 1 Active 05/05/ Misch er Oral Capsule cap, PO, BID, 2020 Neuro # 20 cap, 0 Refill(s) Estrogens, 0.3 mg = 1 Active cher Conjugated tab, PO, 2019 Neuro (LONG-TERM) 0.3 MG Daily, # 30 Oral Tablet tab, 0 [Premarin] Refill(s) Acetaminophen 1 tab, PO, Active 12/22/ Mischer 325 MG / Q6H, 0 2019 Neuro Hydrocodone Refill(s) Bitartrate 10 MG Oral Tablet Belbuca BUC, Q12H, 0 Active cher Refill(s) 2019 Neuro Buprenorphine 150 microgram Active c her 0.15 MG Buccal = 1 ea, BUC, 2019 Neur o Film [Belbuca] BID, 0 Refill(s) amitriptyline 20 mg = 2 tab, Active mckenzie 10 mg oral PO, Bedtime, # 2019 Neuro tablet 180 tab, 3 Refill(s), Pharmacy: [facility]/pharmacy #[id number] Acetaminophen 1 tab, PO, Active 300 MG / TID, PRN Pain, 2017 [place] Codeine X 4 day, # 12 Phosphate 30 MG tab, 0 Oral Tablet Refill(s) [Tylenol with Codeine #3] acetaminophen-c Notes: Do not Inactive 01// M H odeine #3 exceed 4gm/day [facility] (Same as: Tylenol with Codeine # 3) Ondansetron Notes: (Same Inactive as: Zofran) 2017 [place] MEDICATION WASTE Product Size: 4 mg Product Wasted: ___ mg Sodium Chloride 1,000 mL, 1000 Inactive 0.9% (Bolus) IV ml/hr, Infuse 2017 [facility] Over: 1 hr, Route: IV, 1,000, Drug form: INJ, ONCE, Priority: STAT, Dosing Weight 61.364 kg, Start date: 05/06/17 12:46:00 MC KAY STITCHER, Stop date: 05/06/17 12:46:00 MC KAY STITCHER Saline Flush Notes: (Same Inactive 0.9% as: BD 2017 [place] Posiflush) hyoscyamine 0.125 mg, 1 PO No Longer Sajja Monster as tab, Route: Active 2012 Medical PO, Drug form: [place] TAB, QID-Before Meals, Dosing Weight 65, kg, Start date: 01/23/13 11:30:00, Duration: 30 day, Stop date: 02/22/13 7:30:00 tramadol 50 mg 50 mg, 1 tab, PO Active [facility] [place] oral tablet PO, Q8H, PRN, 2012 Medica l 30 tab, as Center needed for pain, Substitution Allowed, TAB tramadol 50 mg 50 mg, 1 tab, PO No Longer [facility] [place] oral tablet PO, Q8H, PRN, Active 2012 Medica l 10 tab, as Center needed for pain, Substitution Allowed, TAB [place] 10/325 1 tab, Route: PO No Longer [facility] oral tablet PO, Drug Form: Active 2012 Medic al TAB, Dosing Center Weight 65, kg, Q6H, PRN Pain, Start date: 01/22/13 21:22:00, Duration: 30 day, Stop date: 02/21/13 21:21:00 Omnipaque 100 mL, Route: IVP No Longer [facility] [place] 350mg/ml IVP, Drug Active 2012 Medical Form: SOLN, [place] Dosing Weight 65, kg, ONCALL, STAT, Start date: 01/22/13 13:12:00, Duration: 1 doses or times, Dose = 2.2ml/kg, Max dose = 100ml -- "To be infused by Radiology Staff ONLY"Dose = 2.2ml/kg, Max dose = 100ml -- "To be infused by Radiology Staff ONLY" Dilaudid 0.5 mg, 0.25 IV No Longer [facility] [place] mL, Route: IV, Active 2012 Medical Drug form: Center INJ, Q4H, Dosing Weight 65, kg, PRN as needed for pain, Start date: 01/22/13 12:17:00, Duration: 30 day, Stop date: 02/21/13 12:16:00 [place] 10/325 1 tab, Route: PO No Longer [facility] [place] oral tablet PO, Drug Form: Active 2012 Medic al TAB, Dosing Center Weight 65, kg, Q4H, PRN Pain, NOW, Start date: 01/22/13 2:14:00, Duration: 30 day, Stop date: 02/21/13 2:13:00 Remeron 15 mg, 1 tab, PO No Longer [facility] Route: PO, Active 2012 Medical Drug form: [place] TAB, Bedtime, Dosing Weight 65, kg, Start date: 01/21/13 21:00:00, Duration: 30 day, Stop date: 02/19/13 21:00:00 hyoscyamine 0.125 mg, 1 PO No Longer [facility] [place] tab, Route: Active 2012 Medical PO, Drug form: [place] TAB, TID, Dosing Weight 65, kg, Start date: 01/21/13 17:00:00, Duration: 30 day, Stop date: 02/20/13 13:00:00 D5W 1/2NS 1,000 1,000 mL, IV No Longer [facility] [place] mL Rate: 75 Active 2012 Medical ml/hr, Infuse Center over: 13.3 hr, Route: IV, Dosing Weight 65 kg, Total Volume: 1,000, Start date: 01/21/13 15:44:00, Duration: 30 day, Stop date: 02/20/13 15:43:00 Dilaudid 0.5 mg, 0.25 IV No Longer [facility] 01/21[facility] mL, Route: IV, 2012 Medical Drug form: [place] INJ, ONCE, Dosing Weight 65, kg, Start date: 01/21/13 14:32:00, Stop date: 01/21/13 14:32:00 Dilaudid 0.5 mg, 0.25 IV No Longer [facility] 01/21[facility] mL, Route: IV, Active 2012 Medical Drug form: [place] INJ, Q8H, Dosing Weight 65, kg, PRN as needed for pain, Start date: 01/21/13 9:39:00, Duration: 30 day, Stop date: 02/20/13 9:38:00 senna 8.6 mg 8.6 mg, 1 tab, PO No Longer [facility] oral tablet Route: PO, Active 2012 Medical Drug Form: [place] TAB, Dosing Weight 65, kg, BID, PRN as needed for constipation, Start date: 01/21/13 9:39:00, Duration: 30 day, Stop date: 02/20/13 9:38:00 MiraLax 17 gm, 1 pkt, PO No Longer [facility] 01/21[facility] Route: PO, Active 2012 Medical Drug form: [place] PWDR, Daily, Dosing Weight 65, kg, PRN Constipation, Start date: 01/21/13 9:38:00, Duration: 30 day, Stop date: 02/20/13 9:37:00 tramadol 50 mg 50 mg, 1 tab, PO No Longer [facility] 01/21[facility] oral tablet Route: PO, Active 2012 Medical Drug form: [place] TAB, Q8H, Dosing Weight 65, kg, PRN as needed for pain, Start date: 01/21/13 9:38:00, Duration: 30 day, Stop date: 02/20/13 9:37:00 Protonix 40 mg, 1 tab, PO No Longer [facility] Route: PO, Active 2012 Medical Drug form: [place] ECTAB, Daily, Dosing Weight 65, kg, Start date: 01/21/13 9:00:00, Duration: 30 day, Stop date: 02/19/13 9:00:00 Dilaudid 0.5 mg, 0.25 IV No Longer [place] 01/21[facility] s mL, Route: IV, Active 2012 Medical Drug form: [place] INJ, ONCE, Dosing Weight 65, kg, PRN as needed for pain, Start date: 01/20/13 22:21:00 Zosyn 3.375 gm, IVPB No Longer [facility] 01/20[facility] Route: IVPB, Active 2012 Medical Drug form: [place] PDR/INJ, [id number], Start date: 01/20/13 11:00:00, Stop date: 02/19/13 2:00:00 enoxaparin 40 mg, 0.4 mL, SUB-Q No Longer [place] [facility] Route: SUB-Q, Active 2012 Medical Drug form: [place] INJ, [id number], Dosing Weight 65, kg, Start date: 01/20/13 6:00:00, Duration: 30 day, Stop date: 02/18/13 6:00:00 NS + KCL 1,000 mL, IV No Longer [place] [facility] 20mEq/L 1000ml Rate: 125 Active 2012 Medical (Premix) 1,000 ml/hr, Infuse Reva ter mL over: 8 hr, Route: IV, Dosing Weight 65 kg, Total Volume: 1,000, Start date: 01/20/13 5:25:00, Duration: 30 day, Stop date: 02/19/13 5:24:00 Zosyn 3.375 gm, IVPB No Longer [place] [facility] Route: IVPB, Active 2012 Medical Drug form: [place] INJ, Q6H, Dosing Weight 65, kg, Priority: STAT, Start date: 01/20/13 5:24:00, Duration: 30 day, Stop date: 02/19/13 0:00:00 Dilaudid 0.5 mg, 0.25 IV No Longer [facility] mL, Route: IV, Active 2012 Medical Drug form: [place] INJ, Q4H, Dosing Weight 65, kg, PRN as needed for pain, Start date: 01/20/13 5:23:00, Duration: 30 day, Stop date: 02/19/13 5:22:00 docusate Substitution Active [place] Allowed 2012 Medical [place] ondansetron 4 mg, 2 mL, IVP No Longer [place] Route: IVP, Active 2012 Medical Drug form: [place] INJ, Q8H, Dosing Weight 65, kg, PRN Nausea & Vomiting, Start date: 01/20/13 5:15:00, Duration: 30 day, Stop date: 02/19/13 5:14:00 NS 1,000 mL 1,000 mL, IV No Longer [facility] Rate: 75 Active 2012 Medical ml/hr, Infuse Center over: 13.3 hr, Route: IV, Dosing Weight 65 kg, Total Volume: 1,000, Start date: 01/20/13 4:41:00, Duration: 30 day, Stop date: 02/19/13 4:40:00 Zosyn 3.375 gm, IVPB No Longer [facility] Route: IVPB, Active 2012 Medical Drug form: [place] PDR/INJ, ONCE, Dosing Weight 65, kg, Priority: STAT, Start date: 01/20/13 3:51:00, Stop date: 01/20/13 3:51:00 fentanyl 50 microgram, IVP No Longer Catherine Monstera s Route: IVP, Active 2012 Medical ONCE, Dosing Center Weight 65, kg, Priority: STAT, Start date: 01/20/13 3:43:00, Stop date: 01/20/13 3:43:00 Zofran 4 mg, 2 mL, IVP No Longer [facility] Route: IVP, Active 2012 Medical Drug form: Center INJ, ONCE, Dosing Weight 65, kg, Priority: STAT, Start date: 01/20/13 1:32:00, Stop date: 01/20/13 1:32:00 fentanyl 50 microgram, IVP No Longer Catherine Monstera s Route: IVP, Active 2012 Medical ONCE, Dosing Center Weight 65, kg, Priority: STAT, Start date: 01/19/13 23:31:00, Stop date: 01/19/13 23:31:00 Omnipaque 78 mL, Route: IVP No Longer Catherine [place] 350mg/ml IVP, Drug Active 2012 Medical Form: SOL, [place] Dosing Weight 65, kg, ONCALL, STAT, Start date: 01/19/13 22:40:00, Duration: 1 doses or times, Weight = 60 - 74kg -- "To be infused by Radiology Staff ONLY"Weight = 60 - 74kg -- "To be infused by Radiology Staff ONLY" NS (Bolus) IV 1,000 mL, IV No Longer Catherine Monster as 1000 mL Rate: 1,000 2012 [facility] ml/hr, Infuse Center over: 1 hr, Route: IV, Dosing Weight 65 kg, Total Volume: 1,000, Priority: STAT, Start date: 01/19/13 22:38:00, Duration: 1 doses or times, Stop date: 01/19/13 23:37:00, Bolus DoseBolus Dose fentanyl 50 microgram, IVP No Longer [place] 1 mL, Route: Active 2012 Medical IVP, Drug Center form: INJ, ONCE, Dosing Weight 65, kg, Priority: STAT, Start date: 01/19/13 22:13:00, Stop date: 01/19/13 22:13:00 Caltrate 600 + Substitution Active [place] Allowed, 2012 [facility] clorazepate Substitution [place] [facility] Symax Duotab Substitution Active [place] as Allowed 2012 [facility] Prilosec Substitution Active [place] Allowed 2012 [facility] Premarin Substitution Active [place] Allowed 2012 [facility] Allergies, Adverse Reactions, Alerts Substance Category Reaction Severity Reaction Status Date Comments S ource type Reported diazepam<dove Assertion Drug Active Data [place] p>1</sup> allergy 2 migrated Neuro from [facility] on 12/24/14. Originally documented as VALIUM. midazolam<s Assertion Drug Active Data [place] up>2</sup> allergy 2 migrated Neur o from [facility] on 12/24/14. Originally documented as VERSED. morphine<dove Assertion Drug Active Data [place] p>3</sup> allergy 2 migrated Neuro from [facility] on 12/24/14. Originally documented as MORPHINE. Valium Assertion Drug Active [place] allergy Neuro morphine drug Allergy [place] [facility] cortisone drug Allergy Active [facility] as allergy Medical Center Immunizations No Data Provided for This Section Results Order Name Results Value Reference Date Interpretation Comments [facility] [facility] HEMATOLOGY Sed Rate 2 < OR = 30 03/15 Result [place] mm/hr /2018 Comment: Neuro
Lab test performed by:
[facility]
[address]
[place] [address]
Bryan Carpenter HEMATOLOGY SS-A (Ro) Ab <1.0 NEG <1.0 NEG 03/15 Result Mische r Comment: Neuro
Lab test performed by:
[facility]
[address]
[place] [address]
Dr. Bryan Carpenter HEMATOLOGY SS-B ([place]) Ab <1.0 NEG <1.0 NEG 03/15 M[place] Neuro HEMATOLOGY Varicella 775.20 03/15 Result [place] IgG Comment: Neuro Index Interpretatio n
--------- ---------<br/ > <135.00 Negative - Antibody not detected
135.00 - 164.99 Equivocal<br/ > > or = 165.00 Positive - Antibody detected

A positive result indicates that the patient
has antibody to VZV but does not differentiate
between an active or past infection.
The clinical diagnosis must be interpreted in
conjunction with the clinical signs and symptoms of
the patient. This assay reliably measures immunity
due to previous infection but may not be
sensitive enough to detect antibodies induced by
vaccination. Thus, a negative result in a vaccinated
individual does not necessarily indicate
susceptibilit y to VZV infection. A more sensitive<br/ > test for vaccination-i nduced immunity is Varicella<br/ > Zoster Virus Antibody Immunity Screen, ACIF.

Lab test performed by:
[facility]
[place] [id number]
[address] Bryan Carpenter HEMATOLOGY EBV VCA IgM 62.60 03/15 Result Mischer /2018 Comment: Neuro U/mL Interpretatio n
---- -
<36.00 Negative
36.00-43.99 Equivocal<br/ > >43.99 Positive

Lab test performed by:
[facility]
[address]
[place] [address]
[address]. Bryan Carpenter HEMATOLOGY ANGIOTENSIN 9 9 - 67 03/15 Result [place] CONVERTING Comment: Neuro ENZYME
Lab test performed by:
[facility]
[address]
[place] [address]
Dr. Bryan Carpenter HEMATOLOGY Varicella 0.69 03/15 Result [place] IgM /2018 Comment: Neuro Value Interpretatio n
-
0.00-0.90 Negative
0.91-1.09 Equivocal
>=1.10 Positive

Results from any one IgM assay should not be used
as a sole determinant of a current or recent
in fection. Because an IgM test can yield false
pos itive results and low levels of IgM antibody may
persi st for more than 12 months post infection,
reliance on a single test result could be misleading.<b r/>If an acute infection is suspected, consider
obtaining a new specimen and submit for both
IgG and IgM testing in two or more weeks.

FASTING: YES
<br/& gt;FASTING: YES

Lab test performed by:
[facility]
[address]
[place] [address]
Dr. Bryan Carpenter URINE AND UA Blood Negative Negative 05/06 [place] (05/06/17 3:21 PM) [place] URINE AND UA Nitrite Negative Negative 05/06 [place] (05/06/17 3:21 PM) [place] URINE AND UA Bili Negative Negative 05/06 [facility] *NA* /2017 [place] (05/06/17 3:21 PM) URINE AND UA Leuk Est Negative Negative 05/06 [place] (05/06/17 3:21 PM) [place] URINE AND UA Sq Epi Few /LPF Few /LPF 05/06 STOOL [place] URINE AND UA Protein 30 mg/dL Negative 05/06 [facility] mg/dL /2017 [place] URINE AND UA Ketones 20 mg/dL Negative 05/06 [facility] mg/dL [place] URINE AND UA Glucose Negative Negative 05/06 [facility] mg/dL mg/dL [place] URINE AND UA <=1.0 0.1 - 1.0 05/06 [facility] Urobilinogen mg/dL [place] URINE AND UA RBC 1 0 - 2 05/06 STOOL [place] URINE AND UA Mucus Few /LPF None Seen 05/06 MH STOOL /LPF [place] URINE AND UA WBC 2 0 - 5 05/06 STOOL [place] URINE AND UA Color Yellow Yellow 05/06 [facility] *NA* /2017 [place] (05/06/17 3:21 PM) URINE AND UA Spec Grav 1.019 <=1.030 05/06 STOOL [place] URINE AND UA pH 5.0 5.0 - 8.0 05/06 STOOL [place] URINE AND UA Turbidity Slight Clear 05/06 [facility] *ABN* [place] (05/06/17 3:21 PM) CHEM PANEL Lipase Lvl 166 73 - 393 05/06 [place] CHEM PANEL Amylase Lvl 42 25 - 115 05/06 [place] ELECTROLYTE Chloride Lvl 100 95 - 109 05/06 S [place] ELECTROLYTE Sodium Lvl 139 135 - 145 05/06 S [place] ELECTROLYTE Potassium 4.0 3.5 - 5.1 05/06 S Lvl [place] ELECTROLYTE eGFR 41 05/06 Result S Comment: The [place] eGFR is calculated using the CKD-EPI formula. In most young, healthy individuals the eGFR will be >90 mL/min/1.73m2 . The eGFR declines with age. An eGFR of 60-89 may be normal in some populations, particularly the elderly, for whom the CKD-EPI formula has not been extensively validated. Use of the eGFR is not recommended in the following populations:< br/>
Rain viduals with unstable creatinine concentration s, including patients and those with serious co-morbid conditions.<b r/>
Patie nts with extremes in muscle mass or diet.

The data above are obtained from the National Kidney Disease Education Program (NKDEP) which additionally recommends that when the eGFR is used in patients with extremes of body mass index for purposes of drug dosing, the eGFR should be multiplied by the estimated BMI. ELECTROLYTE Bili Total 0.7 0.2 - 1.3 05/06 S [place] ELECTROLYTE Alk Phos 82 39 - 136 05/06 MH S [place] ELECTROLYTE A/G Ratio 1.0 0.7 - 1.6 05/06 S [place] ELECTROLYTE ALT 19 0 - 65 05/06 S [place] ELECTROLYTE AST 15 0 - 37 05/06 S [place] ELECTROLYTE Globulin 4.1 2.7 - 4.2 05/06 S [place] ELECTROLYTE Albumin Lvl 4.3 3.5 - 5.0 05/06 S [place] ELECTROLYTE B/C Ratio 18 6 - 25 05/06 S [place] ELECTROLYTE Calcium Lvl 9.4 8.5 - 10.5 05/06 S [place] ELECTROLYTE Total 8.4 6.4 - 8.4 05/06 MH S [place] ELECTROLYTE CO2 27 24 - 32 05/06 MH S [place] ELECTROLYTE AGAP 16.0 10.0 - 05/06 MH S 20.0 [place] ELECTROLYTE Creatinine 1.36 0.50 - 05/06 MH S Lvl 1.40 /2017 [place] ELECTROLYTE BUN 24 7 - 22 05/06 S [place] ELECTROLYTE Glucose Lvl 77 70 - 99 05/06 S [place] HEMATOLOGY Lymphocytes 2.3 1.0 - 5.5 05/06 MH # [place] HEMATOLOGY Monocytes # 0.8 0.0 - 0.8 05/06 [place] HEMATOLOGY Eosinophils 0.2 0.0 - 4.0 05/06 [place] HEMATOLOGY Basophils 0.4 0.0 - 1.0 05/06 [place] HEMATOLOGY Segs-Bands # 6.4 1.5 - 8.1 05/06 [place] HEMATOLOGY Lymphocytes 24.4 20.0 - 05/06 MH 40.0 [place] HEMATOLOGY Monocytes 8.1 2.0 - 12.0 05/06 [place] HEMATOLOGY Segs 66.9 45.0 - 05/06 MH 75.0 [place] HEMATOLOGY MPV 8.4 7.4 - 10.4 05/06 [place] HEMATOLOGY Platelet 287 133 - 450 05/06 [place] HEMATOLOGY MCH 32.4 27.0 - 05/06 31.0 [place] HEMATOLOGY RDW 12.5 11.5 - 05/06 14.5 [place] HEMATOLOGY MCV 91.5 80.0 - 05/06 98.0 [place] HEMATOLOGY MCHC 35.4 32.0 - 05/06 36.0 [place] HEMATOLOGY Hct 42.5 36.0 - 05/06 48.0 [place] HEMATOLOGY WBC 9.6 3.7 - 10.4 05/06 [place] HEMATOLOGY Hgb 15.1 12.0 - 05/06 16.0 [place] HEMATOLOGY RBC 4.65 4.20 - 05/06 5.40 [place] CHEMISTRY eGFR 95 01/23 NA <sup>1</sup>R esult Medical Comment: The Center eGFR is calculated using the CKD-EPI formula. In most young, healthy individuals the eGFR will be >90 mL/min/1.73m2 . The eGFR declines with age. An eGFR of 60-89 may be normal in some populations, particularly the elderly, for whom the CKD-EPI formula has not been extensively validated. Use of the eGFR is not recommended in the following populations:& lt;br/>
I ndividuals with unstable creatinine concentration s, including patients and those with serious co-morbid conditions.<b r/>
Patie nts with extremes in muscle mass or diet.

The data above are obtained from the National Kidney Disease Education Program (NKDEP) which additionally recommends that when the eGFR is used in patients with extremes of body mass index for purposes of drug dosing, the eGFR should be multiplied by the estimated BMI. CHEMISTRY AGAP 12.9 10.0 - 01/23 Normal 20. [facility] CHEMISTRY Calcium Lvl 8.5 8.5 - 10.5 01/23 Normal [facility] CHEMISTRY Glucose Lvl 75 70 - 99 01/23 Normal <sup>4</sup>I T ex nterpretive Medical Data: Adult Center reference range values reflect the clinical guidelines
of the [place] [employer]. CHEMISTRY CO2 28 24 - 32 01/23 Normal [facility] CHEMISTRY Chloride Lvl 106 95 - 109 01/23 Normal [facility] CHEMISTRY Potassium 3.9 3.5 - 5.1 01/23 Normal [place] [facility] CHEMISTRY BUN 5 7 - 22 01/23 LOW [facility] CHEMISTRY Creatinine 0.7 0.5 - 1.4 01/23 Normal [place] [facility] CHEMISTRY Sodium Lvl 143 135 - 145 01/23 Normal [facility] HEMATOLOGY MPV 8.4 7.4 - 10.4 01/23 Normal [facility] HEMATOLOGY RBC 3.95 4.20 - 01/23 LOW [place] 5.40 /2012 [facility] HEMATOLOGY WBC 5.7 3.7 - 10.4 01/23 Normal [facility] HEMATOLOGY MCH 33.0 27.0 - 01/23 HI [place] 31.0 /2012 [facility] HEMATOLOGY Hct 37.4 36.0 - 01/23 Normal [place] 48.0 /2012 [facility] HEMATOLOGY Hgb 13.0 12.0 - 01/23 Normal [place] 16.0 /2012 [facility] HEMATOLOGY MCV 94.8 81.0 - 01/23 Normal [place] 99.0 /2012 [facility] HEMATOLOGY RDW 12.6 11.5 - 01/23 Normal [place] 14.5 /2012 [facility] HEMATOLOGY MCHC 34.8 32.0 - 01/23 Normal [place] 36.0 /2012 [facility] HEMATOLOGY Platelet 203 133 - 450 01/23 Normal [facility] HEMATOLOGY Segs 50.9 45.0 - 01/23 Normal [place] 75.0 /2012 [facility] HEMATOLOGY Lymphocytes 36.5 20.0 - 01/23 Normal [place] 40.0 /2012 [facility] HEMATOLOGY Monocytes 10.0 2.0 - 12.0 01/23 Normal [facility] HEMATOLOGY Monocytes # 0.6 0.0 - 0.8 01/23 [place] HEMATOLOGY Eosinophils 0.1 0.0 - 0.5 01/23 [place] # /2012 [facility] HEMATOLOGY Segs-Bands # 2.9 1.5 - 8.1 01/23 Normal [place] [facility] /2012 [facility] HEMATOLOGY Lymphocytes 2.1 1.0 - 5.5 01/23 [place] # /2012 [facility] HEMATOLOGY Eosinophils 2.2 0.0 - 4.0 01/23 [facility] HEMATOLOGY Basophils 0.4 0.0 - 1.0 01/23 [facility] CHEMISTRY Lipase Lvl 109 73 - 393 01/22 [facility] CHEMISTRY Globulin 3.1 2.0 - 4.0 01/22 Normal [facility] CHEMISTRY A/G Ratio 1.0 0.7 - 1.6 01/22 [facility] CHEMISTRY B/C Ratio 4 6 - 25 01/22 [facility] CHEMISTRY AGAP 11.9 10.0 - 01/22 [facility] 20.0 [facility] CHEMISTRY eGFR 95 01/22 NA <sup>2</sup>R esult Medical Comment: The Center eGFR is calculated using the CKD-EPI formula. In most young, healthy individuals the eGFR will be >90 mL/min/1.73m2 . The eGFR declines with age. An eGFR of 60-89 may be normal in some populations, particularly the elderly, for whom the CKD-EPI formula has not been extensively validated. Use of the eGFR is not recommended in the following populations:& lt;br/>
I ndividuals with unstable creatinine concentration s, including patients and those with serious co-morbid conditions.<b r/>
Patie nts with extremes in muscle mass or diet.

The data above are obtained from the National Kidney Disease Education Program (NKDEP) which additionally recommends that when the eGFR is used in patients with extremes of body mass index for purposes of drug dosing, the eGFR should be multiplied by the estimated BMI. CHEMISTRY AST 16 0 - 37 01/22 Normal [facility] CHEMISTRY CO2 26 24 - 32 01/22 [facility] CHEMISTRY Calcium Lvl 8.0 8.5 - 10.5 01/22 [facility] CHEMISTRY Total 6.1 6.4 - 8.4 01/22 [facility] Protein [facility] CHEMISTRY Bili Total 0.5 0.2 - 1.3 01/22 [facility] CHEMISTRY Creatinine 0.7 0.5 - 1.4 01/22 Normal [facility] Lvl [facility] CHEMISTRY Sodium Lvl 140 135 - 145 01/22 Normal [facility] CHEMISTRY Chloride Lvl 106 95 - 109 01/22 Normal [facility] CHEMISTRY Potassium 3.9 3.5 - 5.1 01/22 Normal [facility] [place] Lvl /2012 [facility] CHEMISTRY ALT 20 0 - 65 01/22 Normal [facility] CHEMISTRY BUN 3 7 - 22 01/22 LOW [facility] CHEMISTRY Glucose Lvl 115 70 - 99 01/22 [place] <sup>5</sup>I [facility] [place] nterpretive Medical Data: Adult Center reference range values reflect the clinical guidelines
of the [place] [employer]. CHEMISTRY Alk Phos 74 39 - 136 01/22 Normal [facility] CHEMISTRY Albumin Lvl 3.0 3.5 - 5.0 01/22 LOW [facility] Center HEMATOLOGY Eosinophils 0.1 0.0 - 0.5 01/22 [place] [facility] HEMATOLOGY Basophils 0.3 0.0 - 1.0 01/22 Normal [facility] HEMATOLOGY Segs-Bands # 2.8 1.5 - 8.1 01/22 Normal [place] /2012 [facility] HEMATOLOGY Lymphocytes 2.0 1.0 - 5.5 01/22 [place] # /[place] [facility] HEMATOLOGY Monocytes # 0.6 0.0 - 0.8 01/22 [place] [facility] HEMATOLOGY Lymphocytes 35.5 20.0 - 01/22 Normal [place] 40.0 /2012 [facility] Center HEMATOLOGY Monocytes 11.0 2.0 - 12.0 01/22 Normal [facility] HEMATOLOGY Eosinophils 2.1 0.0 - 4.0 01/22 [place] [facility] HEMATOLOGY Segs 51.1 45.0 - 01/22 Normal [place] 75.0 /2012 [facility] Center HEMATOLOGY Sed Rate 15 0 - 20 01/22 Normal [facility] HEMATOLOGY MCHC 34.6 32.0 - 01/22 Normal [place] 36.0 /2012 Medical Center HEMATOLOGY MCH 32.8 27.0 - 01/22 HI [facility] [place] 31.0 /2012 Medical Center HEMATOLOGY RDW 12.3 11.5 - 01/22 Normal [place] 14.5 /2012 Medical Center HEMATOLOGY MPV 8.2 7.4 - 10.4 01/22 Normal [facility] HEMATOLOGY Platelet 189 133 - 450 01/22 Normal [facility] HEMATOLOGY RBC 3.63 4.20 - 01/22 [facility] 5.40 /2012 [facility] HEMATOLOGY WBC 5.5 3.7 - 10.4 01/22 Normal [facility] HEMATOLOGY Hgb 11.9 12.0 - 01/22 [facility] 16.0 [facility] HEMATOLOGY Hct 34.5 36.0 - 01/22 [facility] 48.0 [facility] HEMATOLOGY MCV 94.9 81.0 - 01/22 [facility] 99.0 [facility] TUMOR CA 19-9 7.0 0.0 - 35.0 01/22 [facility] CHEMISTRY Lactic Acid 0.9 0.5 - 2.2 01/21 [facility] l [facility] CHEMISTRY eGFR 95 01/21 NA <sup>3</sup>R esult Medical Comment: The Center eGFR is calculated using the CKD-EPI formula. In most young, healthy individuals the eGFR will be >90 mL/min/1.73m2 . The eGFR declines with age. An eGFR of 60-89 may be normal in some populations, particularly the elderly, for whom the CKD-EPI formula has not been extensively validated. Use of the eGFR is not recommended in the following populations:& lt;br/>
I ndividuals with unstable creatinine concentration s, including patients and those with serious co-morbid conditions.<b r/>
Patie nts with extremes in muscle mass or diet.

The data above are obtained from the National Kidney Disease Education Program (NKDEP) which additionally recommends that when the eGFR is used in patients with extremes of body mass index for purposes of drug dosing, the eGFR should be multiplied by the estimated BMI. CHEMISTRY Potassium 4.1 3.5 - 5.1 01/21 Normal [facility] Lvl [facility] CHEMISTRY Chloride Lvl 107 95 - 109 01/21 Normal [facility] CHEMISTRY Sodium Lvl 140 135 - 145 01/21 [facility] CHEMISTRY Glucose Lvl 102 70 - 99 01/21 [place] <sup>6</sup>I T ex nterpretive Medical Data: Adult Center reference range values reflect the clinical guidelines
of the [place] [employer]. CHEMISTRY BUN 7 7 - 22 01/21 Normal [facility] CHEMISTRY CO2 25 24 - 32 01/21 Normal [facility] CHEMISTRY Calcium Lvl 8.2 8.5 - 10.5 01/21 LOW [facility] CHEMISTRY Creatinine 0.7 0.5 - 1.4 01/21 Normal [facility] CHEMISTRY AGAP 12.1 10.0 - 01/21 Normal [place] 20.0 [facility] Center CHEMISTRY Ketone 1.38 <=0.27 01/21 [facility] CHEMISTRY Magnesium 1.8 1.8 - 2.4 01/21 Normal [facility] CHEMISTRY Lipase Lvl 119 73 - 393 01/21 Normal [facility] CHEMISTRY Alk Phos 66 39 - 136 01/21 Normal [facility] CHEMISTRY ALT 18 0 - 65 01/21 Normal [facility] CHEMISTRY Albumin Lvl 2.9 3.5 - 5.0 01/21 LOW [facility] CHEMISTRY AST 24 0 - 37 01/21 Normal [facility] CHEMISTRY Bili Total 0.7 0.2 - 1.3 01/21 Normal [facility] CHEMISTRY Total 5.7 6.4 - 8.4 01/21 LOW Protein [facility] Center CHEMISTRY B/C Ratio 22 6 - 25 01/21 Normal [facility] CHEMISTRY A/G Ratio 1.0 0.7 - 1.6 01/21 Normal [facility] CHEMISTRY Globulin 2.8 2.0 - 4.0 01/21 Normal [facility] HEMATOLOGY Monocytes 8.6 2.0 - 12.0 01/21 Normal [facility] HEMATOLOGY Lymphocytes 23.8 20.0 - 01/21 Normal [place] 40.0 Medical Center HEMATOLOGY Eosinophils 0.6 0.0 - 4.0 01/21 Normal [facility] HEMATOLOGY Segs 66.4 45.0 - 01/21 Normal [place] 75.0 Medical Center HEMATOLOGY Monocytes # 0.8 0.0 - 0.8 01/[place] [facility] HEMATOLOGY Lymphocytes 2.1 1.0 - 5.5 01/21 [place] # /2012 [facility] HEMATOLOGY Basophils 0.6 0.0 - 1.0 01/21 Normal [place] /2012 [facility] Center HEMATOLOGY Segs-Bands # 5.9 1.5 - 8.1 01/21 Normal [place] /2012 [facility] HEMATOLOGY Eosinophils 0.1 0.0 - 0.5 01/21 [place] # /2012 [facility] HEMATOLOGY Basophils # 0.1 0.0 - 0.2 01/21 [place] [facility] HEMATOLOGY RDW 12.7 11.5 - 01/21 Normal [place] 14.5 /2012 Medical Center HEMATOLOGY MCHC 34.1 32.0 - 01/21 Normal [place] 36.0 /2012 Medical Center HEMATOLOGY MCV 95.7 81.0 - 01/21 Normal [place] 99.0 /2012 Medical Center HEMATOLOGY Hgb 11.5 12.0 - 01/21 LOW [place] 16.0 /2012 [facility] HEMATOLOGY Hct 33.6 36.0 - 01/21 LOW [place] 48.0 /2012 [facility] Center HEMATOLOGY MCH 32.6 27.0 - 01/21 HI [place] 31.0 /2012 Medical Center HEMATOLOGY MPV 8.5 7.4 - 10.4 01/21 Normal /2012 Medical Center HEMATOLOGY Platelet 168 133 - 450 01/21 Normal /2012 Medical Center HEMATOLOGY RBC 3.52 4.20 - 01/21 LOW [place] 5.40 /2012 Medical Center HEMATOLOGY WBC 8.9 3.7 - 10.4 01/21 Normal /2012 Medical Center URINALYSIS Micro? Performed 01/20 Normal [facility] (01/19/2013 23:30:05) Ga dical Center URINALYSIS UA WBC None Seen None Seen 01/20 Normal [facility] (01/19/2013 23:30:05) Ga dical Center URINALYSIS UA Sq Epi Few /LPF Few 01/20 Normal [facility] (01/19/2013 23:30:05) Ga dical Center URINALYSIS UA RBC None Seen 0 - 2 01/20 Normal [facility] (01/19/2013 23:30:05) Ga dical Center URINALYSIS UA Blood Negative Negative 01/20 Normal [facility] (01/19/2013 23:30:05) Ga dical Center URINALYSIS UA 0.2 0.1 - 1.0 01/20 Normal [facility] Urobilinogen /2012 Medical Center URINALYSIS UA Bili Negative Negative 01/20 NA *NA* Medical (01/19/2013 23:30:05) Ce nter URINALYSIS UA Nitrite Negative Negative 01/20 Normal [facility] (01/19/2013 23:30:05) Ga dical Center URINALYSIS UA Leuk Est Negative Negative [place]19[place] 23:30:05[place] Ga dical Center URINALYSIS UA Glucose Negative mg/dL Negative 01/20 Normal [facility] (01/19/2013 23:30:05) Ga dical Center URINALYSIS UA Ketones Negative mg/dL Negative 01/20 NA *NA* Medical (01/19/2013 23:30:05) Ce nter URINALYSIS UA pH 8.0 5.0 - 8.0 01/20 Normal [facility] Center URINALYSIS UA Protein Negative mg/dL Negative 01/20 Normal [facility] (01/19/2013 23:30:05) Ga dical Center URINALYSIS UA Turbidity Clear Clear 01/20 Normal [facility] (01/19/2013 23:30:05) Ga dical Center URINALYSIS UA Spec Grav 1.015 <=1.030 01/20 Normal [facility] Center URINALYSIS UA Color Yellow Yellow 01/20 NA *NA* Medical (01/19/2013 23:30:05) Ce nter CHEMISTRY Lipase Lvl 345 73 - 393 01/20 Normal [facility] CHEMISTRY Total 7.3 6.4 - 8.4 01/20 Normal [facility] Center CHEMISTRY Bili Total 0.5 0.2 - 1.3 01/20 Normal [facility] CHEMISTRY Albumin Lvl 3.8 3.5 - 5.0 01/20 Normal [facility] CHEMISTRY ALT 30 0 - 65 01/20 Normal [facility] Center CHEMISTRY Alk Phos 81 39 - 136 01/20 Normal [facility] CHEMISTRY Bili Direct 0.1 0.0 - 0.3 01/20 Normal [facility] CHEMISTRY AST 23 0 - 37 01/20 Normal [facility] CHEMISTRY Globulin 3.5 2.0 - 4.0 01/20 Normal [facility] CHEMISTRY A/G Ratio 1.1 0.7 - 1.6 01/20 Normal [facility] CHEMISTRY Bili 0.4 0.0 - 1.0 01/20 Normal [facility] HEMATOLOGY Basophils # 0.1 0.0 - 0.2 01/20 [place] [facility] Pathology Reports No Data Provided for This Section Diagnostic Reports Report Value Date Source ED Abdomen/Pelvis IV Clinical indication: - hx o f pancreatitis, unable to tolerate pain since last admission in DLP:1306.16mGy-cm 05/06/2017 [facility] contrast only CT Comparison: CT abdomen pelvis 01/22/2013 TECHNIQUE: Volumetric CT acq uisition of the abdomen and pelvis after the intravenous administration contrast. Axial, coronal and sagittal reconstructions. IV contrast: Visipaque 320 Enteric contrast: None. CT Dose: DLP= 1306.16 mGy-cm FINDINGS: LOWER THORAX: Clear. LIVER: The liver is unremarkable. BILIARY TREE: No intra- or extrahepatic biliary ductal dilation. GALLBLADDER: The gallbladder is surgically absen t. PANCREAS: Normal CT appearan ce of the pancreas. No evidence of peripancreatic inflammatory change. SPLEEN: The spleen is normal in size and enhance ment ADRENALS: Normal. KIDNEYS AND URETERS: The lef t kidney is asymmetrically small, not significantly changed. No hydronephrosis. GASTROINTESTINAL TRACT: The stomach is unremarkable. The small bowel is normal in caliber. Normal CT appearance of the colon. APPENDIX: The appendix is not definitively visua lized. PELVIS: The urinary bladder is unremarkable. The uterus is surgically absent. PERITONEUM AND RETROPERITONE UM: No ascites or free air. No other fluid collection. LYMPH NODES: No abdominal or pelvic lymphadenopa thy. VASCULATURE: Mild atheromato us changes are present in the abdominal aorta, without evidence of aneurysm. BONES: No acute abnormality. Degenerative disc disease is present at L5-S1. Multilevel facet arthropathy is present in the lumbar spine. SOFT TISSUES: Normal. IMPRESSION: 1. No acute abnormality visualized in the abdom en or pelvis. 2. Unchanged mild asymmetry in the renal size. SL: [id number] Abdomen/Pelvis CTA EXAM: CTA ABDOMEN. 01/22/2013 [facility] edical EXAM: CTA PELVIS. Center DATE: January 22, 2013 at 1426 hours. INDICATION: Acute on chroni c abdominal pain of unknown etiology, history of ERCP . TECHNIQUE: Rapid acquisition axially oriented images were obtained from the level of the upper abdomen through ischial tuberosities during the infusion of intravenous contrast the purposes of angiograph y. Venous phase imaging was also performed. Sagittal and coronal reformat images are provided in multiple series. The intravenous contrast administration was without complication. FINDINGS: The abdominal and pelvic aor ta is normal in caliber and contour, measuring 2.3 cm at the aortic hiatus, 1.7 cm at the renal arteries, and 1.4 cm just proximal to the iliac bifurcation. 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 There is a small amount of atherosclerotic plaqu e. There is a small hiatal myles ia. The left kidney is noted to be smaller compared to the right and exhibits cortical thinning with a lobulated contour. The gallbladder is surgicall y absent. The liver, spleen, pancreas, adrenal glands, and right kidney are otherwise unremarkable. The bowel is unremarkable. No acute pulmonary or cardia c abnormality is identified in the visualized portions of the lungs and heart. No acute osseous abnormality is identified. IMPRESSION: 1. No acute abnormality. 2. Mild atherosclerotic disease. 3. Asymmetric renal size. Abdomen/Pelvis wo EXAM: CT ABDOMEN AND PELVIS, W/O CONTRAST 01/02 [facility] contrast CT Center DATE: 01/20/2013 at 0314hours INDICATION: Concern for duod enal perforation on the prior study. To look for contrast extravasation from the duodenum. COMPARISON: 01/20/2013 at 12:09 a.m. Without administration of in travenous contrast, axially oriented images were obtained from the lung bases through the ischial tuberosities. Sagittal and coronal reformat images of the entire torso are p rovided in multiple series. Positive oral contra st was administered. FINDINGS: Positive oral contrast was administered to opaci fy the bowel loops. There is adequate opacificat ion of the duodenum. No active extravasation of contrast seen into the retroperitoneum. Small pocket of gas posteromedial to the second portion of the duodenum, image 34 on s eries 3, is unchanged from t he prior study. There may be mild wall thickening at the junction of the second and third portions of the duodenum. Rest of the findings are unchanged from the prio r study. IMPRESSION: No active extravasation of c ontrast from the duodenum is identified. Rest of the findings are unchanged from the prior study. Abdomen/Pelvis w EXAM: CT ABDOMEN AND PELVIS, W/ CONTRAST, 01/19 [facility] contrast CT Center DATE: 01/20/2013 at 12 09 a.m. INDICATION: Acute abdominal pain. Patient had ER CP yesterday. Following intravenous admini stration of 86 cc of Omnipaque 350 mg/mL , axially oriented images were obtained from the lung bases through the ischial tuberosities. Delayed imaging was then performed thr ough the kidneys, using a ra diation reduction technique. Sagittal and coronal reformat images of the entire torso are provided in multiple series. The intravenous contrast administration was without c omplication. No positive oral contrast was admin istered. FINDINGS: Visualized lung bases show n o acute abnormality. No basilar pneumothorax or pleural effusion or pericardial effusion present. Liver: Normal size and atte nuation. A tiny hypodense lesion is seen in the dome of the liver, on image 7 on series 5, which is too small to characterize on this study. Hepatic veins and portal veins are unremarkable. Gallbladder: Surgically absent.. Common bile duct and intrahe patic biliary radicles: Minimal prominence of intrahepatic biliary radicals is probably secondary to post cholecystectomy status. Pancreas: Pancreatic head ap pears slightly bulky. However, there is normal enhancement with no pancreatic necrosis. A small pocket of gas is see n in the pancreaticoduodenal groove, posteromedial to the second portion of duodenum, image 37 on series 5, image 37 on series 6 B, image 53 on series 7 be. There is a small amount of fluid (does this a ttenuation values up to 26 Hounsfield units) in the anterior pararenal space, along the a posterior aspect of the second portion of duodenum, and posterior and inferior aspect of the third portion of the duodenum. Small bowel and colon: No raultio wel dilatation is seen. Appendix is not identified. Spleen: Normal size and attenuation . Adrenals: Unremarkable . Intra-abdominal aorta and IV C and other vascular structures: Scattered atherosclerotic calcification noted. Kidneys: The left kidney is slightly smaller and has a lobulated contour. However, both kidneys show symmetric enhancement and excretion of contrast. The right ureter is mildly dilated, and shows urothelial enhancement. Urinary bladder: Not well-distended. Uterus and adnexa: Uterus is not visualized. Free intraperitoneal fluid: None.. Free intraperitoneal air: None.. Abdominal wall and soft tissues: Unremarkable . Bony pelvis and spine: No ac manzanita abnormality . L5-S1 disc degenerative change and facet arthropathy noted, with bilateral neuroforaminal narrowing. IMPRESSION: 1. A small pocket of gas is seen in the pancreaticoduodenal groove, posteromedial to the second portion of duodenum, probably extraluminal. There is a small amount of low-intermediate density fluid surr ounding the third and the di stal second portions of the duodenum. Findings concern for a duodenal perforation. Study with positive oral contrast is recommended for more definitive evaluation. 2. Slight bulkiness of the p ancreatic head is questionable for early focal pancreatitis. Correlation with pancreatic enzymes recommended. 3. The right ureter is mildl y dilated, and shows urothelial enhancement. This could be reactive in nature or unrelated in etiology. 4. Tiny hypodense lesion in the dome of the liver is too small to characterize. 5. L5-S1 degenerative change with bilateral neur oforaminal narrowing. Chest 1view EXAM: CHEST 1 VIEW 01/19/2013 [facility] DATE: January 19, 2013 at 2244 INDICATION: Dyspnea COMPARISON: None TECHNIQUE: A single AP radiograph of the chest w as obtained. FINDINGS: There is no focal consolidation. The costophrenic sulci are clear without evidence of pleural effusion. The cardiomediastinal silhouette is unremarkable. Cervical fusion hardware is partially seen. IMPRESSION: No acute cardiopulmonary abnormality. Consultation Notes No Data Provided for This Section Discharge Summaries No Data Provided for This Section History and Physicals No Data Provided for This Section Vital Signs Vital Sign Value Date Comments Source Systolic (mm Hg) 118 05/05/2019 [facility] [place] [facility] Diastolic (mm Hg) 70 05/05/2019 [facility] [place] [place] Heart Rate 96 05/05/2019 [facility] Respitory Rate 16 05/05/2019 [facility] Height 165.1 cm 05/05/2019 [facility] Weight 83.636 05/05/2019 [facility] BMI Calculated 30.68 05/05/2019 [facility] Systolic (mm Hg) 135 03/22/2019 [facility] [place] Diastolic (mm Hg) 86 03/22/2019 [facility] [place] [place] Heart Rate 81 03/22/2019 [facility] Respitory Rate 16 03/22/2019 [facility] Height 165.1 cm 03/22/2019 [facility] Weight 84.545 03/22/2019 [facility] BMI Calculated 31.02 03/22/2019 [facility] Systolic (mm Hg) 136 03/15/2019 [facility] [place] Diastolic (mm Hg) 84 03/15/2019 [facility] Heart Rate 73 03/15/2019 [facility] Respitory Rate 16 03/15/2019 [facility] Height 165.1 cm 03/15/2019 [facility] Weight 85.455 03/15/2019 [facility] BMI Calculated 31.35 03/15/2019 [facility] Systolic (mm Hg) 125 12/21/2018 [facility] [place] Diastolic (mm Hg) 76 12/21/2018 [facility] Heart Rate 75 [facility]21[facility] Resp[facility] Rate 16 12/21/2018 [facility] Height 165.1 cm 12/21/2018 [facility] Weight 85 12/21/2018 [facility] BMI Calculated 31.18 12/21/2018 [facility] BMI Calculated 29.6 10/19/2018 [facility] Height 167.64 cm 10/19/2018 [facility] Weight 83.182 10/19/2018 [facility] Systolic (mm Hg) 106 10/19/2018 [facility] [place] Diastolic (mm Hg) 70 10/19/2018 [facility] Respitory Rate 16 10/19/2018 [facility] Heart Rate 74 10/19/2018 [facility] BMI Calculated 27.5 09/08/2018 [facility] Weight 77.273 09/08/2018 [facility] Height 167.64 cm 09/08/2018 [facility] Respitory Rate 16 09/08/2018 [facility] Heart Rate 87 09/08/2018 [facility] Systolic (mm Hg) 105 09/08/2018 [facility] [place] Diastolic (mm Hg) 68 09/08/2018 [facility] [place] Rate 72 05/07/2017 [place] Systolic (mm Hg) 115 05/07/2017 [place] Diastolic (mm Hg) 68 05/07/2017 [place] Respitory Rate 16 05/07/2017 [place] Temperature Oral (F) 98.0 F 05/07/2017 [place] Temperature Oral (F) 97.7 F 05/07/2017 [place] Systolic (mm Hg) 111 05/07/2017 [facility] [place] Diastolic (mm Hg) 65 05/07/2017 [place] Heart Rate 70 05/07/2017 [place] Respitory Rate 17 05/07/2017 [facility] [place] Weight 61.364 05/06/2017 [place] Temperature Oral (F) 98.2 F 05/06/2017 [place] Heart Rate 83 05/06/2017 [place] Respitory Rate 18 05/06/2017 [facility] [place] Systolic (mm Hg) 102 05/06/2017 [place] Diastolic (mm Hg) 55 05/06/2017 [place] Heart [facility] Temperature Oral (F) 98.1 F 01/23/2013 [facility] Respitory Rate 18 01/23/2013 [facility] ion Center Systolic (mm Hg) 133 01/23/2013 [facility] dical Center Diastolic (mm Hg) 69 01/23/2013 [facility] edical Center Diastolic (mm Hg) 68 01/23/2013 [facility] edical Center Systolic (mm Hg) 129 01/23/2013 [facility] dical Center Heart Rate 67 01/23/2013 [facility] Center Respitory Rate 18 01/23/[address] [facility] Center Temperature Oral (F) 98.4 F 01/23/2013 [facility] Heart Rate 65 01/[facility] Systolic (mm Hg) 106 01/23/2013 [facility] dical Center Respitory Rate 18 01/23/2013 [facility] ion Center Diastolic (mm Hg) 59 01/23/2013 [facility] edical Center Temperature Oral (F) 98.5 F 01/23/2013 [facility] Height 158.4 cm [facility] Height 160.02 cm 01/20/2013 [place] [facility] Weight 65 01/20/2013 [facility] l Center Weight 65 01/16/2013 [facility] Center Diastolic (mm Hg) 78 01/16/2013 [facility] edical Center Systolic (mm Hg) 119 01/16/2013 [facility] dical Center Temperature Oral (F) 98.5 F 01/16/2013 [facility] Center Respitory Rate 18 01/16/2013 [facility] Heart Rate 87 01/16/2013 [facility] Encounters Location Location Encounter Encounter Reason Attending ADM DC Stat us Source Details Type Number For Provider Date Date Visit [facility] Outpatient [id number] ABD ATILLA 01/16 Activ e [facility] Medical PAIN ERTAN /2012 [facility] RAULITO [id number] ATILLA 01/19 01/19 Discharg [facility] Medical ERTAN /2012 ed [facility] Inpatient [id number] HILARY 01/20 01/23 Discha rg [facility] Medical SAJJA /2012 ed [facility] Emergency [id number] Bryan 05/06 05/07 [facility] [id number] ANGELA 07/15 Active [facility] Agus Outpatient [id number] ANGELA 07/15 Active [facility] [place] [facility] [id number] Angela 08/03 Active [facility] Agus Outpatient [id number] ANGELA 08/03 Active [facility] [place] MNA Phone [id number] 08/18 08/20 [facility] [place] [id number] Angela 09/08 Active [facility] Agus MNA Outpatient [id number] Angela 09/08 09/09 [facility] [place] [id number] Angela 10/19 Active [facility] Agus [facility]NA Outpatient [id number] Angela 10/19 10/20 [facility] [place] [facility] [id number] Angela 12/21 Active [facility] [place] [facility] [id number] Angela 12/21 12/22 [facility] [place] [facility] [id number] Angela 03/15 Active [facility] [place] [facility] [id number] Angela 03/15 03/16 [facility] [place] [facility] [id number] Angela 03/22 Active [facility] [place] [facility] [id number] Angela 03/22 03/23 [facility] [place] [facility] [id number] Angela 05/05 [facility] [place] [facility] [id number] Angela 05/05 05/06 [facility]2019 [facility] [place] [facility] [id number] Angela 08/03 [facility] [place] [facility] [id number] Angela 08/03 08/03 [facility] [place] [facility] Outpatient [id number] POST CONNIE Bain larry [facility] Procedures Procedure Code Date Perfomer Comments Source cholecys<sup>1< [id number] gall bladder 2012 [place] /sup> minicus in right knee 201 1 Neuro, bladder repair [place] appendectomy 1992 total hysterectomy 1980 reptured disk 2003 C6-C7 TMJ both jaw cholecys [id number] 1gall bladder 2012 [facility] <sup>1</sup> minicus in right knee 2 011 Medical bladder repair [place] appendectomy 1992 total hysterectomy 1979 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 Assessment and Plan No Data Provided for This Section Plan of Care No Data Provided for This Section Social History Social History Date Source Social History TypeResponse 07/18/2018 [facility] Employment/School 1 Smoking Status Never smoker; Exposure to Tobacco Smoke None; Cigarette Smoking Last 365 Days No; Reg Smoking Cessation Counseling No entered on: 05/05/19 1May reledase medical information to Tao Hernandez ouse No data available for this 05/07/2017 [facility] section Family History No Data Provided for This Section Advance Directives No Data Provided for This Section Functional Status No Data Provided for This Section
--- OUTSIDE RECORDS SUMMARY | 2019-10-30 17:21 | XMS REPORT | Summary of Care ---
:1955 Author Organization [facility] [place] Address [address] [place] [address]- phone Encounter [facility] [employer]_chey(FIN) [id number] Date(s): 08/04/19 - 08/04/19 [facility] [address] [place] [address]- [phone] Attending Physician: Felice Palacios MD Referring Physician: Felice Palacios MD Vital Signs No data available for this section Problem List Condition Effective Dates Status Health Status Informant Acid reflux(Confirmed) Resolved Cervical spondylosis(Confirmed) Active HTN - Hypertension(Confirmed) Active Lumbosacral plexopathy(Confirmed) Resolved Meralgia paresthetica(Confirmed) Active Pituitary adenoma1 Active Leg ulcer(Confirmed) Active 1Data migrated from [employer] on 12/25/14. Allergies, Adverse Reactions, Alerts Substance Reaction Severity Status diazepam1 Active midazolam2 Active morphine3 Active Valium Active 1Data migrated from [employer] on 12/24/14. Originally documented as VALIUM.[email or web address] Data migrated from [employer] on 12/24/14. Originally documented as VERSED.[email or web address] Data migrated from [employer] on 12/24/14. Originally documented as MORPHINE. Medications No data available for this section Results No data available for this section Immunizations No data available for this section Procedures Procedure Date Related Diagnosis Body Site Status cholecys1 Completed 1gall bladder 2012 minicus in right knee 2011 bladder repair appendectomy 1992 total hysterectomy 1979 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 Social History Social History Type Response Employment/School 1 Smoking Status Never smoker; Exposure to To bacco Smoke None; Cigarette Smoking Last 365 Days No; Reg Smoking Cessation Counseling No entered on: 05/05/19 1May reledase medical information to Tao Porter-Spouse Assessment and Plan No data available for this section
--- OUTSIDE RECORDS SUMMARY | 2019-10-30 17:24 | XMS REPORT | Continuity of Care Document ---
:1955 Author Organization [facility] t Address [address] [place] [place] [address] Care Team Providers Name Role Phone Nayla Alonzo MD Primary Care Physician Chel Florian MD Attending Clinician Danae TAYLOR Attending Clinician Wanda Suarez NP Attending Clinician Reza CHERY, S. Attending Clinician Chaparro RAVI Attending Clinician Unavailable Vahe HOYT Attending Clinician Unavailable Tulio Palacios Attending Clinician Kevin Stiles Attending Clinician [address] Attending Clinician Unavailable Danitza Sotelo MD Attending Clinician Tima Melton Jr Attending Clinician ANIVAL Admitting Clinician Unavailable Payers Payer Name Policy Policy Number Effective Expiration Source Type Date Date MEDICAREMEDICARE PART xxxxxxxxxxx 2018 Francisco J Brown AND 00:00:00 Adrian Bernabexxxxxxxxxx2018- ANGELICA BellMediliban COMMERCIAL MISCMISC xxxxxxxxx 2009 [place] COMMERCIALxxxxxxxxx1/ 00:00:00 Met alba 05/2009-PresentCommerc ial Problems Condition Condition Condition Status Onset Resolution Last Treating Co mments Source Name Details Category Date Date Treatment Clinician Date Follow-up Follow-up Disease Active Lacho romero examinatio examinatio 6-18 Me thodi n n 00:00: st following following 00 surgery surgery S/P lumbar S/P lumbar Disease Active H dany laminectom laminectom 5-19 Me thodi y y 00:00: st 00 DDD DDD Disease Active [facility] (degenerat (degenerat 4-13 Me odi jhon disc jhon disc 00:00: st disease), disease), 00 lumbar lumbar Spinal Spinal Disease Active [facility] stenosis stenosis 4-13 Method i of lumbar of lumbar 00:00: st region region 00 with with neurogenic neurogenic claudicati claudicati on on Thor[facility] Me odi thy thy 00:00: st 00 Claudicati Claudicati Disease Active H dany on on 3-03 Methodi 00:00: st 00 Bilateral Bilateral Disease Active Lacho romero carotid carotid 2-04 Methodi artery artery 00:00: st stenosis stenosis 00 PAD PAD Disease Active [facility] (periphera (periphera 2-04 Me odi l artery l artery 00:00: st disease) disease) 00 Chronic Chronic Disease Active [facility] back pain back pain 6-05 Meth nik 00:00: st 00 Generalize Generalize Disease Active H dany d d 4-30 Methodi abdominal abdominal 00:00: st pain pain 00 Right Right Disease Active [facility] upper upper 3-26 Methodi quadrant quadrant 00:00: st pain pain 00 Slow Slow Disease Active [facility] transit transit 3-26 Methodi constipati constipati 00:00: st on on 00 History of History of Disease Active H dany cholecyste cholecyste 3-26 Me odi ctomy ctomy 00:00: st 00 Essential Essential Disease Active Lacho romero hypertensi hypertensi 3-26 Me thodi on on 00:00: st 00 Splenic Splenic Disease Active [facility] artery artery 3-26 Methodi aneurysm aneurysm 00:00: st 00 Anxiety Anxiety Disease Active [facility] 3-26 Methodi 00:00: st 00 ABDOMINAL Diagnosis Active 2017-05-06 Memoria PAIN/LOSS 1-04 18:11:00 l OF 00:00: Cross APPETITE ABDOMINAL 00 PAIN/LOSS OF APPETITE Active 05/06/2017 [facility] SURGERY Diagnosis Active 2013-01-20 Me moria THIS 01-19 08:28:00 l MORNING, SURGERY 00:00: Maria E nn PROBLEMS THIS 00 BREATHING MORNING, PROBLEMS BREATHING Active 01/19/2013 [facility] POST Diagnosis Active 2013-03-05 Mem oria FOLLOW UP 01-19 15:20:00 l POST 00:00: Cross FOLLOW UP 00 Active 01/19/2013 [facility] BDDC-WEIGH Diagnosis Active 2013-01-19 Memoria T LOSS 01-17 08:37:00 l 00:00: Cross BDDC-WEIGH 00 T LOSS Active 01/17/2013 [facility] 783.21 - Diagnosis Active 2013-12-25 M emoria ABNORMAL 01-16 02:47:00 l LOSS O 783.21 - 00:01: Dwight n 576.0 - ABNORMAL 00 POSTCHO LOSS O 576.0 - POSTCHO Active 01/16/2013 FARHANAD Walton ABD PAIN Diagnosis Active 2013-01-16 M emoria 01-11 13:45:00 l ABD PAIN 00:00: Dwight n 00 Active 01/11/2013 [facility] Gastroesop Problem Resolve 2019-08-06 Memoria hageal d 21:13:32 l reflux Cross disease Gastroesop (disorder) hageal reflux disease (disorder) Resolved Problem 08/06/2019 [facility] Lumbosacra Problem Resolve 2019-08-06 Memoria l plexus d 21:13:32 l neuropathy Dwight n (disorder) Lumbosacra l plexus neuropathy (disorder) Resolved Problem 08/06/2019 [facility] Acid Problem Resolve 2013-01-25 Abdiel leigh ann reflux d 21:01:15 l Acid Cross reflux Resolved Problem 01/25/2013 [facility] HTN - Problem Resolve 2013-01-25 Abdiel leigh ann Hypertensi d 21:01:15 l on HTN - Cross Hypertensi on Resolved Problem 01/25/2013 [facility] Hypertensi Problem Active 2019-08-06 M emoria ve 21:13:32 l disorder, Cross systemic Hypertensi arterial ve (disorder) disorder, systemic arterial (disorder) Active Problem 08/06/2019 [facility] Meralgia Problem Active 2019-08-06 Mem oria parestheti 21:13:32 l ca Meralgia Dwight n (disorder) parestheti ca (disorder) Active Problem 08/06/2019 [facility] Pituitary Problem Active 2019-08-06 Me moria adenoma 21:13:32 l (disorder) Dwight n Pituitary adenoma (disorder) Active Problem 08/06/2019 Data migrated from [facility] on 12/25/14. [facility] Cervical Problem Active 2019-08-06 Mem oria spondylosi 21:13:32 l s Cervical Dwight n (disorder) spondylosi s (disorder) Active [facility] Ulcer of Problem Active 2019-08-06 Mem oria lower 21:13:32 l extremity Ulcer of Her melendez (disorder) lower extremity (disorder) Active Problem 08/06/2019 [facility] ABDMNAL Diagnosis Active 2013-01-20 Me moria PAIN 08:28:00 l UNSPCF ABDMNAL Agus SITE PAIN UNSPCF SITE Active [facility] Unspecifie Problem 2017-05-09 2017-05-09 Memoria d 1-04 05:06:50 05:06:50 l abdominal 06:00: Cross pain Unspecifie 00 d abdominal pain 05/06/2017 05/09/2017 [facility] Allergies, Adverse Reactions, Alerts Allergy Allergy Status Severity Reaction(s) Onset Inactive Treating Comm ents Source Name Type Date Date Clinician Morphine Propensi Active Other (See Makes her Yoo ty to Comments) 01-15 loud and Metho di adverse 00:00: crazy st reaction 00 s to drug Diazepam Propensi Active Other (See Makes her Yoo ty to Comments) 01-15 crazy and Meth nik adverse 00:00: wild st reaction 00 s to drug Midazola Propensi Active Other (See Makes her Yoo m ty to Comments) 01-15 crazy and Meth nik adverse 00:00: loud st reaction 00 s to drug midazola midazola Active 2011-05 Memori a m<sup>2< m<sup>2< 0-23 l /sup> /sup> 05:00: morphine morphine Active 2011-05 Memori a <sup>3</ <sup>3</ 0-23 l sup> sup> 05:00: midazola DA Active SV 2009-05 [facility] m HCl 05-13 00:00: [address] diazepam DA Active SV 2009-05 [facility] 05-13 00:00: [address] morphine DA Active MO 2009-05 [facility] 05-13 00:00: [address] Valium Valium Active Sung Goldsmith morphine morphine Active Eldon Goldsmith cortison cortison Active Memdakota a e e l Agus Family History Family Member Diagnosis Comments Start Date Stop Date Source Natural father Cancer [facility] thodist Natural father Liver cancer [facility] Natural father Liver disease [facility] Natural father Lung cancer [facility] ethodist Maternal grandfather Heart disease [place] Maternal grandfather Hypertension [place] Maternal grandmother Heart disease [place] Maternal grandmother Hypertension [place] Natural mother Cancer [facility] thodist Natural mother Colon cancer [place] Natural mother Ovarian cancer [place] Natural mother Stomach cancer [place] Social History Social Habit Start Date Stop Date Quantity Comments Source Sex Assigned At [facility] ethodist Exposure to Not sure [facility] Metho dist SARS-CoV-2 (event) Alcohol intake 2019-09-20 2019-09-20 Current [facility] thodist 00:00:00 00:00:00 non-drinker of alcohol (finding) Social History 2017-05-07 2017-05-07 [facility] 04:13:00 04:13:00 Smoking Status Start Date Stop Date Source Never smoker [facility] Methodis t Medications Ordered Filled Start Stop Current Ordering Indication Dosage Frequency Signature Comments Components Source Medication Medication Date Date Medication? Clinician (SIG) Name Name doxycycline 2020 No 100mg QD Take 100 Yoo (VIBRAMYCIN 5-22 05-22 mg by Method i ) 100 MG 11:10: 00:[address] capsule 38 :00 daily. pregabalin Yes 100mg Q.[id number] Take 100 Yoo (LYRICA) 5-22 [id number] mg by Meth nik 100 MG 11:10: 3D mouth 3 st capsule 32 (three) times a day. quinapril 2020-0 Yes 20mg QD Take 20 mg [place] (ACCUPRIL) 5-22 by mouth Metho di 20 MG 11:10: nightly. st tablet 32 HYDROcodone 2020-0 Yes acute pain 1{tbl} Q.[id number] Take 1 Yoo -acetaminop 5-22 [id number] tablet by Methodpatt hen (NORCO) 11:10: 3D mouth 3 st 10-325 mg 32 (three) per tablet times a day .acute pain. MELATONIN 2020-0 Yes 5mg QD Take 5 mg Lacho ston ORAL 5-22 by mouth Methodi 11:10: daily. st 32 estrogens, 2020-0 Yes .3mg QD Take 0.3 Lacho ston conjugated, 5-22 mg by Methodi (PREMARIN) 11:10: mouth st 0.3 MG 32 daily. tablet Take daily for 21 days then do not take for 7 days. oxyCODone-a 2020-0 Yes acute pain 1{tbl} Q4H Take 1 Yoo cetaminophe 5-22 tablet by Met hina n (LYNOX) 11:10: mouth st 7.5-300 mg 32 every 4 per tablet (four) hours as needed for moderate pain .acute pain. tiZANidine 2020-0 Yes 4mg Q.5D Take 4 mg [place] (ZANAFLEX) 5-22 by mouth 2 Met hodi 4 MG tablet 11:10: (two) st 32 times a day as needed for muscle spasms. linaclotide 2020-0 2020- No 145ug Take 145 Yoo (LINZESS) 4-01 04-01 mcg by Methodi 145 mcg 15:15: 00:[address] capsule 12 :00 needed. omega-3 2020-0 2020- No 300mg QD Take 300 [place] fatty acids 2-04 02-04 mg by Method i (FISH OIL) 09:49: 00:[address] 300 mg 29 :00 daily. capsule magnesium 2019-0 2020- No 400mg QD Take 400 [place] oxide 2-04 02-04 mg by Methodi (MAG-OX) 09:49: 00:[address] 400 mg 25 :00 daily. tablet CHOLECALCIF 2020-0 2020- No 2000U QD Take 2,000 Yoo MONICA, 2- 02-04 Units by Methodi VITAMIN D3, 09:48: 00:[address] (D3-2000 48 :00 daily. ORAL) multivitami 2019- No 1{tbl} QD Take 1 [place] with 2-04 02-04 tablet by Methodi minerals 09:48: 00:[address] tablet 21 :00 daily. ascorbic 2019- No 1500mg QD Take 1,500 Yoo acid, 2- 02-04 mg by Methodi vitamin C, 09:48: 00:[address] (vitamin C) 17 :00 daily. 100 MG tablet Aspirin 81 Yes 81 mg = 1 Me moria MG Enteric 1-03 tab, PO, l Coated 17:17: Daily, # Agus Tablet 00 90 tab, 3 Refill(s) cefdinir Yes 300 mg = 1 Mem oria 300 MG Oral 1-03 cap, PO, l Capsule 16:58: BID, # 20 Maria E nn 00 cap, 0 Refill(s) Estrogens, Yes 0.3 mg = 1 M emoria Conjugated 8-22 tab, PO, l (ALF) 0.3 13:52: Daily, # Herm emmett MG Oral 00 30 tab, 0 Tablet Refill(s) [Premarin] Acetaminoph Yes 1 tab, PO, Memoria en 325 MG / 8-22 Q6H, 0 l Hydrocodone 13:52: Refill(s) [facility] Bitartrate 00 10 MG Oral Tablet Belbuca Yes BUC, Q12H, Abdiel leigh ann 6-19 0 l 16:41: Refill(s) Agus 00 Buprenorphi Yes 150 Memori a ne 0.15 MG 6-19 microgram l Buccal Film 16:41: = 1 ea, Her melendez [Belbuca] 00 BUC, BID, 0 Refill(s) buprenorphi No 150 [place] ne 6-19 04-01 microgram Methodi (BELBUCA) 00:00: 00:00 = 1 ea, st 150 mcg 00 :00 BUC, BID, film buccal 0 film Refill(s) amitriptyli Yes 20 mg = 2 M emoria ne 10 mg 4-18 tab, PO, l oral tablet 15:16: Bedtime, # Cross 24 180 tab, 3 Refill(s), Pharmacy: [id number] amitriptyli 2019- No 20 mg = 2 Yoo ne (ELAVIL) 4-18 05-11 tab, PO, Met hodi 10 MG 00:00: 00:00 Bedtime, # st tablet 00 :00 180 tab, 3 Refill(s), Pharmacy: [facility] #[id number] CREON 2019- No TAKE ONE [facility] 12,000-38,0 02 -04 CAPSULE BY Fabian domingo 00 -60,000 00:00: 00:[address] unit 00 :00 TIMES A capsule,del DAY WITH A ayed MEAL release(DR/ EC) capsule Acetaminoph Yes 1 tab, PO, Memoria en 300 MG / 1-05 TID, PRN l Codeine 03:39: Pain, X 4 Maria E nn Phosphate 00 day, # 12 30 MG Oral tab, 0 Tablet Refill(s) [Tylenol with Codeine #3] acetaminoph No Notes: Do M emoria en-codeine 1-05 not exceed l #3 03:38: 4gm/day of acetaminop hen. 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 MEQ CR tablet hydroCHLORO Yes 12.5mg QD Take 12.5 Yoo thiazide 2-16 mg by Methodi (HYDRODIURI 00:00: mouth once st L) 12.5 MG 00 daily. tablet ondansetron 2019- No FOUR TIMES Yoo (Zofran) 4 9-12 05-11 DAILY PRN Met hodi MG tablet 00:00: 00:00 For Nausea s t 00 :00 / Vomiting omeprazole Yes QD Take by [place] (PriLOSEC) 8-15 mouth once Met hodi 20 MG 00:00: daily. st capsule 00 clorazepate Yes TAKE 1 [place] (TRANXENE) 7-21 TABLET Methodi 7.5 MG 00:00: EVERY DAY st tablet 00 NEEDED FOR ANXIETY3 PREMARIN 2019- No .3mg QD Take 0.3 [place] 0.3 mg 6-30 04-01 mg by Methodi tablet 00:00: 00:[address] 00 :00 daily. hyoscyamine No [place] 0.125 mg, Memoria 01-23 Sajja 1 tab, l 16:30: Route: PO, Cross 00 Drug form: TAB, QID-Before Meals, Dosing Weight 65, kg, Start date: 01/23/13 11:30:00, Duration: 30 day, Stop date: 02/22/13 7:30:00 tramadol 50 Yes [place] 50 mg, 1 Memoria mg oral 01-23 Sajja tab, PO, l tablet 16:09: Q8H, PRN, Dw[place] n 57 30 tab, as needed for pain, Substituti on Allowed, TAB tramadol 50 No [place] 50 mg, 1 Memoria mg oral - Sajja tab, PO, l tablet 16:02: Q8H, PRN, Dwight n 01 10 tab, as needed for pain, Substituti on Allowed, TAB [place] No [place] 1 tab, Memoria 10/325 oral 01-23 Sajja Route: PO, l tablet 02:22: Drug Form: Maria E nn 00 TAB, Dosing Weight 65, kg, Q6H, PRN Pain, Start date: 01/22/13 21:22:00, Duration: 30 day, Stop date: 02/21/13 21:21:00 Omnipaque 2012- No [place] 100 mL, Mem oria 350mg/ml 01-22 Route: l 18:12: IVP, Drug Form: SOLN, Dosing Weight 65, kg, ONCALL, STAT, Start date: 01/22/13 13:12:00, Duration: 1 doses or times, Dose = 2.2ml/kg, Max dose = 100ml -- "To be infused by Radiology Staff ONLY"Dose = 2.2ml/kg, Max dose = 100ml -- "To be infused by Radiology Staff ONLY" Dilaudid No [place] 0.5 mg, Abdiel leigh ann 01-22 Sajja 0.25 mL, l 17:17: Route: IV, Drug form: INJ, Q4H, Dosing Weight 65, kg, PRN as needed for pain, Start date: 01/22/13 12:17:00, Duration: 30 day, Stop date: 02/21/13 12:16:00 [place] 2012-0 No [place] 1 tab, Memoria 10/325 oral 01-22 Route: PO, l tablet 07:14: Drug Form: Maria E nn 00 TAB, Dosing Weight 65, kg, Q4H, PRN Pain, NOW, Start date: 01/22/13 2:14:00, Duration: 30 day, Stop date: 02/21/13 2:13:00 Remeron 2012- No [place] 15 mg, 1 Abdiel leigh ann 01-22 Sajja tab, l 02:00: Route: PO, Drug form: TAB, Bedtime, Dosing Weight 65, kg, Start date: 01/21/13 21:00:00, Duration: 30 day, Stop date: 02/19/13 21:00:00 hyoscyamine 0 No [place] 0.125 mg, Memoria 01-21 Sajja 1 tab, l 22:00: Route: PO, Drug form: TAB, TID, Dosing Weight 65, kg, Start date: 01/21/13 17:00:00, Duration: 30 day, Stop date: 02/20/13 13:00:00 D5W 1/2NS No [place] 1,000 mL, M emoria 1,000 mL 01-21 Sajja Rate: 75 l 20:44: ml/hr, Infuse over: 13.3 hr, Route: IV, Dosing Weight 65 kg, Total Volume: 1,000, Start date: 01/21/13 15:44:00, Duration: 30 day, Stop date: 02/20/13 15:43:00 Dilaudid 2012- No [place] 0.5 mg, Abdiel leigh ann 01-21 Sajja 0.25 mL, l 19:32: Route: IV, Drug form: INJ, ONCE, Dosing Weight 65, kg, Start date: 01/21/13 14:32:00, Stop date: 01/21/13 14:32:00 Dilaudid 2012- No [place] 0.5 mg, Abdiel leigh ann 01-21 Sajja 0.25 mL, l 14:39: Route: IV, Drug form: INJ, Q8H, Dosing Weight 65, kg, PRN as needed for pain, Start date: 01/21/13 9:39:00, Duration: 30 day, Stop date: 02/20/13 9:38:00 senna 8.6 No [place] 8.6 mg, 1 M emoria mg oral 01-21 Sajja tab, l tablet 14:39: Route: PO, Drug Form: TAB, Dosing Weight 65, kg, BID, PRN as needed for constipati on, Start date: 01/21/13 9:39:00, Duration: 30 day, Stop date: 02/20/13 9:38:00 MiraLax 2012- No [place] 17 gm, 1 Abdiel leigh ann 01-21 Sajja pkt, l 14:38: Route: PO, Agus 00 Drug form: PWDR, Daily, Dosing Weight 65, kg, PRN Constipati on, Start date: 01/21/13 9:38:00, Duration: 30 day, Stop date: 02/20/13 9:37:00 tramadol 50 2013-0 No [place] 50 mg, 1 Memoria mg oral 01-21 Sajja tab, l tablet 14:38: Route: PO, Maria E nn Drug form: TAB, Q8H, Dosing Weight 65, kg, PRN as needed for pain, Start date: 01/21/13 9:38:00, Duration: 30 day, Stop date: 02/20/13 9:37:00 Protonix 2012-0 No [place] 40 mg, 1 Mem oria 01-21 Sajja tab, l 14:00: Route: PO, Cross Drug form: ECTAB, Daily, Dosing Weight 65, kg, Start date: 01/21/13 9:00:00, Duration: 30 day, Stop date: 02/19/13 9:00:00 Dilaudid 2012-0 No Elyssa 0.5 mg, Abdiel leigh ann 01-21 Luis 0.25 mL, l 03:21: Route: IV, Cross 00 Drug form: INJ, ONCE, Dosing Weight 65, kg, PRN as needed for pain, Start date: 01/20/13 22:21:00 Zosyn 2012-0 No [place] 3.375 gm, Memor ia 01-20 Sajja Route: l 16:00: IVPB, Drug form: PDR/INJ, ABXQ8H, Start date: 01/20/13 11:00:00, Stop date: 02/19/13 2:00:00 enoxaparin 2012- No Elyssa 40 mg, 0.4 Memoria -20 Luis mL, Route: l 11:00: SUB-Q, Cross 00 Drug form: INJ, [id number], Dosing Weight 65, kg, Start date: 01/20/13 6:00:00, Duration: 30 day, Stop date: 02/18/13 6:00:00 NS + KCL 2012-0 No Elyssa 1,000 mL, Me moria 20mEq/L 01-20 Luis Rate: 125 l 1000ml 10:25: ml/hr, Agus (Premix) 00 Infuse 1,000 mL over: 8 hr, Route: IV, Dosing Weight 65 kg, Total Volume: 1,000, Start date: 01/20/13 5:25:00, Duration: 30 day, Stop date: 02/19/13 5:24:00 Zosyn No Elyssa 3.375 gm, Memor ia 9-20 Luis Route: l 10:24: IVPB, Drug form: INJ, Q6H, Dosing Weight 65, kg, Priority: STAT, Start date: 01/20/13 5:24:00, Duration: 30 day, Stop date: 02/19/13 0:00:00 Dilaudid No [place] 0.5 mg, Abdiel leigh ann 9-20 Sajja 0.25 mL, l 10:23: Route: IV, Drug form: INJ, Q4H, Dosing Weight 65, kg, PRN as needed for pain, Start date: 01/20/13 5:23:00, Duration: 30 day, Stop date: 02/19/13 5:22:00 docusate Yes Substituti Mem oria -20 on Allowed l 10:21: Cross 15 ondansetron No Elyssa 4 mg, 2 M emoria 9-20 Luis mL, Route: l 10:15: IVP, Drug form: INJ, Q8H, Dosing Weight 65, kg, PRN Nausea & Vomiting, Start date: 01/20/13 5:15:00, Duration: 30 day, Stop date: 02/19/13 5:14:00 NS 1,000 mL No Willian 1,000 mL, Memoria -20 Hardeep Rate: 75 l 09:41: Catherine ml/hr, Infuse over: 13.3 hr, Route: IV, Dosing Weight 65 kg, Total Volume: 1,000, Start date: 01/20/13 4:41:00, Duration: 30 day, Stop date: 02/19/13 4:40:00 Zosyn No [place] 3.375 gm, Memor ia 9-20 Sajja Route: l 08:51: IVPB, Drug form: PDR/INJ, ONCE, Dosing Weight 65, kg, Priority: STAT, Start date: 01/20/13 3:51:00, Stop date: 01/20/13 3:51:00 fentanyl No Willian 50 Memoria 9-20 Hardeep microgram, l 08:43: Catherine Route: Cross 00 IVP, ONCE, Dosing Weight 65, kg, Priority: STAT, Start date: 01/20/13 3:43:00, Stop date: 01/20/13 3:43:00 Zofran No Willian 4 mg, 2 Memoria 9-20 Hardeep mL, Route: l 06:32: Catherine IVP, Drug Maria E nn 00 form: INJ, ONCE, Dosing Weight 65, kg, Priority: STAT, Start date: 01/20/13 1:32:00, Stop date: 01/20/13 1:32:00 fentanyl No Willian 50 Memoria 9-20 Hardeep microgram, l 04:31: Catherine Route: Agus 00 IVP, ONCE, Dosing Weight 65, kg, Priority: STAT, Start date: 01/19/13 23:31:00, Stop date: 01/19/13 23:31:00 Omnipaque No Willian 78 mL, Memor ia 350mg/ml 01-20 Hardeep Route: l 03:40: Catherine IVP, Drug Maria E nn 00 Form: SOLN, Dosing Weight 65, kg, ONCALL, STAT, Start date: 01/19/13 22:40:00, Duration: 1 doses or times, Weight = 60 - 74kg -- "To be infused by Radiology Staff ONLY"Weigh t = 60 - 74kg -- "To be infused by Radiology Staff ONLY" NS (Bolus) Cinthya Dorsey 1,000 mL, Fabian chavezria IV 1000 mL -20 Hardeep Rate: l 03:38: Catherine 1,000 Agus 00 ml/hr, Infuse over: 1 hr, Route: IV, Dosing Weight 65 kg, Total Volume: 1,000, Priority: STAT, Start date: 01/19/13 22:38:00, Duration: 1 doses or times, Stop date: 01/19/13 23:37:00, Bolus DoseBolus Dose fentanyl No Willian 50 Memoria 9-20 Hardeep microgram, l 03:13: Catherine 1 mL, Agus 00 Route: IVP, Drug form: INJ, ONCE, Dosing Weight 65, kg, Priority: STAT, Start date: 01/19/13 22:13:00, Stop date: 01/19/13 22:13:00 Caltrate Yes Substituti Mem oria 600 + D 9-16 on l 19:03: Allowed, Agus 12 Maintenanc e clorazepate Yes Substituti Memoria 9-16 on Allowed l 19:03: Agus 02 Symax Yes Substituti Memori a Duotab 9-16 on Allowed l 19:02: Agus 52 Prilosec Yes Substituti Mem oria 9-16 on Allowed l 19:02: Agus 32 Premarin Yes Substituti Mem oria 9-16 on Allowed l 19:02: Agus 20 Vital Signs Vital Name Observation Time Observation Value Comments Source Systolic blood 2019-09-22 07:44:14 153 mm[Hg] [place] [facility] pressure Diastolic blood 2019-09-22 07:44:14 70 mm[Hg] [place] [facility] pressure Heart rate 2019-09-22 07:44:14 65 /min [place] [facility] Body temperature 2019-09-22 07:44:14 36.78 Radha [place] Respiratory rate 2019-09-22 07:44:14 18 /min [place] [facility] Oxygen saturation in 2019-09-22 07:44:14 97 /min [facility] Arterial blood by Pulse oximetry Body height 2019-09-19 10:00:00 167.6 cm [facility] Body weight 2019-09-19 10:00:00 80.241 kg [facility] BMI 2019-09-19 10:00:00 28.55 kg/m2 [facility] Systolic (mm Hg) 2019-05-05 16:51:00 Abdiel rial Agus Diastolic (mm Hg) 2019-05-05 16:51:00 Mem orial Agus Heart Rate 2019-05-05 16:51:00 [facility] Respitory Rate 2019-05-05 16:51:00 Memori al Agus Height 2019-05-05 16:51:00 [facility] Weight 2019-05-05 16:51:00 [facility] BMI Calculated 2019-05-05 16:51:00 Memori al Cross Systolic (mm Hg) 2019-03-22 17:27:00 Abdiel rial Agus Diastolic (mm Hg) 2019-03-22 17:27:00 Mem orial Agus Heart Rate 2019-03-22 17:27:00 [facility] Agus Respitory Rate 2019-03-22 17:27:00 Memori al Cross Height 2019-03-22 17:27:00 165.1 cm [facility] Agus Weight 2019-03-22 17:27:00 [facility] BMI Calculated 2019-03-22 17:27:00 Memori al Agus Systolic (mm Hg) 2019-03-15 17:56:00 Abdiel rial Agus Diastolic (mm Hg) 2019-03-15 17:56:00 Mem orial Cross Heart Rate 2019-03-15 17:56:00 [facility] Respitory Rate 2019-03-15 17:56:00 Memori al Cross Height 2019-03-15 17:56:00 165.1 cm [facility] Weight 2019-03-15 17:56:00 [facility] Agus BMI Calculated 2019-03-15 17:56:00 Memori al Agus Systolic (mm Hg) 2018-12-21 16:44:00 Abdiel rial Cross Diastolic (mm Hg) 2018-12-21 16:44:00 Mem orial Cross Heart Rate 2018-12-21 16:44:00 [facility] Agus Respitory Rate 2018-12-21 16:44:00 Memori al Cross Height 2018-12-21 16:44:00 165.1 cm [facility] Agus Weight 2018-12-21 16:44:00 [facility] BMI Calculated 2018-12-21 16:44:00 Memori al Cross BMI Calculated 2018-10-19 16:19:00 Memori al Cross Height 2018-10-19 16:19:00 167.64 cm [facility] Weight 2018-10-19 16:19:00 [facility] Systolic (mm Hg) 2018-10-19 16:19:00 Abdiel rial Cross Diastolic (mm Hg) 2018-10-19 16:19:00 Mem orial Agus Respitory Rate 2018-10-19 16:19:00 Memori al Agus Heart Rate 2018-10-19 16:19:00 [facility] BMI Calculated 2018-09-08 19:24:00 Memori al Agus Weight 2018-09-08 19:24:00 [facility] Height 2018-09-08 19:24:00 167.64 cm [facility] Respitory Rate 2018-09-08 19:24:00 Memori al Cross Heart Rate 2018-09-08 19:24:00 [facility] Agus Systolic (mm Hg) 2018-09-08 19:24:00 Abdiel rial Agus Diastolic (mm Hg) 2018-09-08 19:24:00 Mem orial Cross Heart Rate 2017-05-07 04:11:00 [facility] Agus Systolic (mm Hg) 2017-05-07 04:11:00 Abdiel rial Agus Diastolic (mm Hg) 2017-05-07 04:11:00 Mem orial Agus Respitory Rate 2017-05-07 04:11:00 [facility] Temperature Oral (F) 2017-05-07 04:11:00 98.0 F [facility] Temperature Oral (F) 2017-05-07 02:30:00 97.7 F [facility] Systolic (mm Hg) 2017-05-07 02:30:00 Abdiel [facility] Diastolic (mm Hg) 2017-05-07 02:30:00 [facility] Heart Rate 2017-05-07 02:30:00 [facility] Respitory Rate 2017-05-07 02:30:00 [facility] Weight 2017-05-06 18:43:00 [facility] Temperature Oral (F) 2017-05-06 18:43:00 98.2 F [facility] Heart Rate 2017-05-06 18:43:00 [facility] Respitory Rate 2017-05-06 18:43:00 [facility] Systolic (mm Hg) 2017-05-06 18:43:00 Abdiel [facility] Cross Diastolic (mm Hg) 2017-05-06 18:43:00 [facility] Heart Rate 2013-01-23 12:37:00 [facility] Temperature Oral (F) 2013-01-23 12:37:00 98.1 F [facility] Respitory Rate 2013-01-23 12:37:00 [facility] Systolic (mm Hg) 2013-01-23 12:37:00 Abdiel [facility] Cross Diastolic (mm Hg) 2013-01-23 12:37:00 [facility] Diastolic (mm Hg) 2013-01-23 10:13:00 [facility] Systolic (mm Hg) 2013-01-23 10:13:00 Abdiel [facility] Heart Rate 2013-01-23 10:13:00 [facility] Respitory Rate 2013-01-23 10:13:00 [facility] Temperature Oral (F) 2013-01-23 10:13:00 98.4 F [facility] Heart Rate 2013-01-23 00:10:00 [facility] Systolic (mm Hg) 2013-01-23 00:10:00 [facility]iel [facility] Respitory Rate 2013-01-23 00:10:00 [facility] Diastolic (mm Hg) 2013-01-23 00:10:00 [facility] Temperature Oral (F) 2013-01-23 00:10:00 98.5 F [facility] Height 2013-01-20 14:20:00 158.4 cm [facility] Height 2013-01-20 01:53:00 160.02 cm [facility] Weight 2013-01-20 01:53:00 [facility] Weight 2013-01-16 19:03:00 [facility] Diastolic (mm Hg) 2013-01-16 19:03:00 [facility] Systolic (mm Hg) 2013-01-16 19:03:00 Abdiel [facility] Temperature Oral (F) 2013-01-16 19:03:00 98.5 F [facility] Respitory Rate 2013-01-16 19:03:00 [facility] Heart Rate 2013-01-16 19:03:00 [facility] Procedures Procedure Date / Time Performing Clinician Source Performed URINE CULTURE 2019-09-20 19:30:[address] CERVICAL SPINE WO 2019-09-20 18:46:[address] HEAD WO CONTRAST 2019-09-20 18:45:[address] LUMBAR SPINE WO 2019-09-20 18:43:36 Jose White ethodist CONTRAST AMMONIA LEVEL 2019-09-20 17:36:00 Moni Holm Meth odist HC COMPLETE BLD COUNT 2019-09-20 17:36:00 Moni Holm n [facility] W/AUTO DIFF URINE DRUGS OF ABUSE 2019-09-20 17:30:00 MihaiMoni [facility] SCREEN URINALYSIS SCREEN AND 2019-09-20 17:30:00 Lucy Gonzalez [facility] MICROSCOPY, WITH REFLEX TO CULTURE PROTHROMBIN TIME WITH INR 2019-09-20 17:20:00 CoraBenita Fredo Campbell PARTIAL THROMBOPLASTIN 2019-09-20 17:20:00 Benita Shepherdu stotalita [facility] TIME (PTT) BASIC METABOLIC PANEL 2019-09-20 17:20:00 Benita Shepherd b[place]on [facility] IONIZED CALCIUM 2019-09-20 17:20:00 Candicebenitomegan Benita Yoo Me thodist MAGNESIUM LEVEL 2019-09-20 17:20:00 Benita Shepherd Me th[facility]ist PHOSPHORUS LEVEL 2019-09-20 17:20:00 Benita Shepherd M ethodist TROPONIN 2019-09-20 17:20:00 Cora Benita Yoo Me [facility]ist ESTIMATED GFR 2019-09-20 17:20:00 Benita Shepherd [facility] ECG 12-LEAD 2019-09-20 16:27:56 CandicebenitoeBnita guzman Me thodist POC GLUCOSE 2019-09-20 16:25:00 Raffi Florian odist ANESTHESIA INTUBATION 2019-09-19 15:59:28 Douglas Gilmore [place] [facility] ME AN ELECTIVE 2019-09-19 15:51:07 Douglas Gilmore ENDOTRACHEAL AIRWAY ARTERIAL LINE 2019-09-19 15:50:10 Douglas Gilmore XR LUMBAR SPINE 1 VW 2019-09-19 15:40:00 Raffi Florian LAMINECTOMY, LUMBAR 2019-09-19 13:55:00 Raffi Florian SURGICAL PATHOLOGY 2019-09-19 08:26:00 Raffi Florian ethodist REQUEST COVID BIOREF (NCOVB) 2019-09-11 12:19:00 Raffi Florian COMPREHENSIVE METABOLIC 2019-09-11 12:11:00 Gabrielle Suarez PANEL ESTIMATED GFR 2019-09-11 12:11:00 Gabrielle Suarez HC COMPLETE BLD COUNT 2019-09-11 12:01:00 Raffi Florian W/AUTO DIFF CT POST MYELOGRAM 2019-09-06 12:33:08 Raffi Florian Me thodist THORACIC CT POST MYELOGRAM LUMBAR 2019-09-06 12:32:32 Raffi Florian IR MYELOGRAM 2+REG INCL 2019-09-06 11:12:24 Raffi Florian INJ W S&I XR LUMBAR SPINE COMPLETE 2019-08-14 11:06:30 Raffi Florian W BENDING XR SPINE SCOLIOSIS 2-3 2019-08-14 11:06:00 Raffi Florian on [facility] VIEWS US CAROTID DUPLEX 2019-06-13 10:00:00 Silvio Sotelo Dc thodist BILATERAL CT ANGIOGRAM ABDOMINAL 2019-06-06 17:02:20 Silvio Sotelo on [facility] AORTA AND BILATERAL ILIOFEMORAL RUNOFF W WO CONTRAST POC CREATININE 2019-06-06 15:21:00 Jose Moreno ESTIMATED GFR 2019-06-06 15:21:00 Jose Moreno BASIC METABOLIC PANEL 2019-06-06 11:02:00 Silvio Sotelo COPY(IES) SENT TO: 2019-06-06 11:02:00 Silvio Sotelo M ethodist COPY RECEIVED FROM: 2019-06-06 11:02:00 Silvio Sotelo ECG 12-LEAD 2019-06-06 09:55:18 Silvio Sotelo Meth odist MRI SPINE EXTERNAL STUDY 2019-03-06 15:47:00 Raffi Florian cholecys<sup>1</sup> [facility] rmann cholecys <sup>1</sup> [facility] ermann Plan of Care Planned Activity Planned Date Details Comments Source Future Scheduled 2019-12-02 INFLUENZA VACCINE [facility] Test 00:00:00 [code = INFLUENZA VACCINE] Future Scheduled 2018 65+ PNEUMOCOCCAL [place] [facility] Test 00:00:00 VACCINE (1 of 2 - PCV13) [code = 65+ PNEUMOCOCCAL VACCINE (1 of 2 - PCV13)] Future Scheduled 2003-12-10 BREAST CANCER [facility] thodist Test 00:00:00 SCREENING [code = BREAST CANCER SCREENING] Future Scheduled 2003-12-10 COLONOSCOPY SCREENING Ho alex [facility] Test 00:00:00 [code = COLONOSCOPY SCREENING] Future Scheduled 2003-12-10 SHINGLES VACCINES (#1) H dany [facility] Test 00:00:00 [code = SHINGLES VACCINES (#1)] Future Scheduled 1976 [facility]00 malignant neoplasm of cervix (procedure) [code = 163613083] Encounters Start End Encounter Admission Attending Care Care Encounter Source Date/Time Date/Time Type Type Clinicians Facility Department ID 2019-10-19 2019-10-19 Outpatient [facility] [id number] [place] 00:00:00 00:00:00 RAFFI [address] 2019-09-19 2019-09-22 Inpatient [facility] [id number] [place] 00:00:00 00:00:00 RAFFI [address] 2019-09-11 2019-09-11 Outpatient [facility] [id number] [place] 00:00:00 00:00:00 RAFFI [address] 2019-09-11 2019-09-11 Outpatient [facility] [id number] [place] 00:00:00 00:00:00 RAFFI [address] 2019-09-06 2019-09-06 Outpatient [facility] [id number] [place] 00:00:00 00:00:00 RAFFI [address] 2019-09-06 2019-09-06 Outpatient [facility] [id number] [place] 00:00:00 00:00:00 RAFFI [address] 2019-09-06 2019-09-06 Outpatient [facility] [id number] [place] 00:00:00 00:00:00 RAFFI [address] 2019-08-14 2019-08-14 Outpatient [facility] [id number] [place] 00:00:00 00:00:00 RAFFI 894 [facility] 2019-08-14 2019-08-14 Outpatient FLORIAN, [facility] [id number] [place] 00:00:00 00:00:00 RAFFI 895 [facility] 2019-08-14 2019-08-14 Outpatient FLORIAN, [facility] [id number] [place] 00:00:00 00:00:00 RAFFI 630 [facility] 2019-08-14 2019-08-14 Outpatient FLORIAN, [facility] [id number] [place] 00:00:00 00:00:00 RAFFI 198 [facility] 2019-08-14 2019-08-14 Outpatient FLORIAN, [facility] [id number] [place] 00:00:00 00:00:00 RAFFI 226 [facility] 2019-08-04 2019-08-04 Outpatient ALEJA PalaciosSCHER MHMISCHER [id number] 09:15:00 09:15:00 Felice 10 [facility] 2019-07-28 2019-07-28 [facility] [id number] 17:09:00 23:59:00 Encounter [place] [id number] [place] 4.2.7.2.686 [place] [id number] 2019-07-28 2019-07-28 Urgent Pob1, Acute [facility] [id number] 15:30:08 17:04:14 [facility] [id number] [place] 4.2.7.2.686 [facility] [id number] [address]al [address] 2019-07-04 2019-07-04 Outpatient MELISSA, [facility] [id number] [place] 00:00:00 00:00:00 SILVIO 741 [facility] 2019-05-05 2019-05-05 Outpatient ALEJA PalaciosSCHER MHMISCHER [id number] 11:45:00 23:59:59 Felice 09 [facility] 2019-03-22 2019-03-22 Outpatient ALEJA PalaciosSCHER MHMISCHER [id number] 11:30:00 23:59:59 Felice 08 [facility] 2019-03-15 2019-03-15 Outpatient ALEJA PalaciosSCHER MISCHER [id number] 11:15:00 23:59:59 Felice 07 [place] 2018-12-21 2018-12-21 Outpatient ALEJA PalaciosSCHER MISCHER [id number] 11:30:00 23:59:59 Felice 06 [place] 2018-10-19 2018-10-19 Outpatient Suzanne ALKASCHER ALKASCHER [id number] 11:45:00 23:59:59 Felice 05 [place] 2018-09-08 2018-09-08 Outpatient ALEJA PalaciosSCHER MISCHER [id number] 14:30:00 23:59:59 Felice Tulio 2018-08-18 2018-08-19 Outpatient MHMISCHER MHMISCHER [id number] 10:14:00 23:59:59 00 2017-05-06 2017-05-06 Outpatient Linh, [place] [id number] 12:16:00 22:13:00 Bryan Alfred Results Test Description Test Time Test Comments Results Result Comments Source Surgical pathology request 2019-09-21 17:07:26 Test Item Value Reference Range Interpretation Comme nts Case number (test code = [id number]) [id number] Surgical pathology report (test code = See link below for PDF Lab R eport 5115) Result status (test code = 4954005) This is Final Report for [id number] [id number] 15:18:08 Test Item Value Reference Range Interpretation Comments Ventricular rate (test 88 code = 253) Atrial rate (test code 88 = 255) ME interval (test code 164 = 266) QRSD interval (test 90 code = 260) QT interval (test code 356 = 264) QTC interval (test code 430 = 265) P axis 1 (test code = 58 267) QRS axis 1 (test code = 64 268) T wave axis (test code 59 = 270) EKG impression (test Normal sinus code = 273) rhythm-Normal ECG-In automated comparison with ECG of 06-JUN-2019 09:55,-No significant change was found- Fredo Becerra drugs of abuse [id number] 22:23:33 Test Item Value Reference Interpretation Comments Range Amphetamine screen, Negative urine (test code = 3349-8) Barbiturate screen, Negative urine (test code = 3377-9) Benzodiazepine Negative screen, urine (test code = 3390-2) Cocaine screen, Negative urine (test code = 3397-7) Methadone Negative metabolite (EDDP), urine (test code = 26227-3) Opiates screen, Negative urine (test code = 3879-4) Oxycodone screen, Positive A urine (test code = 39446-1) Phencyclidine Negative screen, urine (test code = 3936-2) Tricyclic screen, Negative urine (test code = 96213-7) Cannabinoid screen, Negative Drug scr een minimum urine (test code = concentra tion of 3427-2) detectabilityAm phetamines 1000 ng/mLBarbiturat es 200 ng/mLBe nzodiazepines 300 ng/mLCocaine 300 ng/mLMethadone 300 ng/mLOp iates 300 ng/mLOxycodone 300 ng/mLPh encyclidine 25 ng/mLCannabinoi ds 50 ng/mLTr icyclics 1000 ng/mLResults are from screen ing tests and should only be used for medical evaluat ion. Drug testing for leg al purposes requires defini tive (or confirmatory) t esting methods, which are available upon request. C ontact the laboratory if d efinitive testing is requ ired. Lab Interpretation Abnormal (test code = 19939-9) Yoo MethodistUrinalysis screen and microscopy, with reflex to culture 2019-09-20 20:48:08 Test Item Value Reference Range Interpretation Comments Specimen site (test code = Clean catch 0164645) Color, UA (test code = 5778-6) Straw Appearance, UA (test code = Clear 5767-9) Specific gravity, UA (test code = 1.003 1.001-1.035 5811-5) pH, UA (test code = 5803-2) 7.0 5.0-8.5 Protein, UA (test code = 38750-8) Negative Negative Glucose, UA (test code = 26214-5) Negative Negative Ketones, UA (test code = 2514-8) Negative Negative Bilirubin, UA (test code = Negative Negative 5770-3) Blood, UA (test code = 5794-3) Negative Negative Nitrite, UA (test code = 5802-4) Negative Negative Urobilinogen, UA (test code = <2.0 <2.0 85628-8) Leukocyte esterase, UA (test code Negative Negative = 5799-2) Epithelial cells, UA (test code = 5 /HPF 5787-7) WBC, UA (test code = 5821-4) 1 0- 4 /HPF RBC, UA (test code = 37394-5) 1 0- 5 /HPF Bacteria, UA (test code = Few None seen 08136-3) Yeast, UA (test code = 34138-4) None seen Yeast with pseudohyphae, UA (test None seen code = 24144-1) [place] MethodistUrine [id number] 20:45:55 Test Item Value Reference Range Interpretation Comments Urine culture (test SEE COMMENT Bacteriu leigh ann screen code = 9991921) negative. [place] MethodistCT Lumbar Spine Wo [id number] 19:17:16Hm Interface, Radiology Results 09/20/2019 7:20 PM CDTEXAMINATION: CT LUMBAR SPINE WO CONTRASTCLINICAL HISTORY: postop mechanical fallCOMPARISON: September 06, 2019TECHNIQUE: CT imaging was performed with iterative reconstruction technique and/or automated exposure control to reduce radiation dose.IMPRESSION:5 nonrib- bearing lumbar type vertebrae.Lumbar spine alignment is within normal limits.No fractures or aggressive bony lesions.Interval laminectomy changes at L4 and L5 with recent postsurgical changes in the epidural space and overlying soft tissues.No moderate or severe central canal narrowing.Stable spondylotic foraminal narrowing at L5-S1 bilaterally.[facility]WPHYRRSH[facility] MethodistCT Cervical Spine Wo Vouhaqwf9642-07-09 19:13:36Hm Interface, Radiology Results 09/20/2019 7:16 PM CDTEXAMINATION: CT CERVICAL SPINE WO CONTRASTCLINICAL HISTORY: postop mechanical fallCOMPARISON: None.TECHNIQUE: CT imaging was performed with iterative reconstruction technique and/or automated exposure control to reduce radiation dose.Findings:Spinal canal contents and ligamentous structures are suboptimally evaluated on CT.No acute fractures of the cervical spine.Grade 1 anterolisthesis at C4-5.C6-C7 anterior fusion with interbody screws, surgical plate and disc spacer. No evidence of hardware loosening or failure.No moderate or severe central canal narrowing.IMPRESSION:No acute fractures of the cervical spine.HMRM-WPHYRRSHouston MethodistAmmonia level 2019-09-20 19:03:26 Test Item Value Reference Range Interpretation Comments Ammonia (test code = 1841-6) 19 umol/L 11-51 [place] MethodistCT Head Wo [id number] 18:49:46Hm Interface, Radiology Results 09/20/2019 6:52 PM CDTEXAMINATION: CT HEAD WO CONTRASTCLI NICAL HISTORY: Altered level of consciousness (LOC) unexplainedCOMPARISON: NoneTECHNIQUE: Noncontrast CT of the brain was performed from the skull base to the vertex. Both soft tissue and bone reconstruction algorithms are interpreted.CT imaging was performed with iterative reconstruction techniques and/or automated exposure control to reduce radiation dose.FINDINGS:No intracranial hemorrhage, extra-axial collection, or mass-effect is seen. No acute cortical infarct is identified. No hyperdense vessel is seen.Mild chronic small vessel ischemic changes are noted in the cerebral white matter.No air- fluid level is seen in the visualized portions of the paranasal sinuses. Mastoid air cells are clear.IMPRESSION:No acute intracranial abnormality identified.[id number] MethodistIonized [id number] 18:34:40 Test Item Value Reference Range Interpretation Comments pH (test code = 2753-2) 7.52 Ionized calcium (test code = 1.13 mmol/L 1.11-1.32 ) [place] ZlkopurhuSgkhhprx4004-39-07 18:28:56 Test Item Value Reference Range Interpretation Comments Troponin (test code 0.013 ng/mL 0-0.04 In patie nts suspected = 96337-2) of having a alpa cardial infarction, eder farrell with all other appro priate clinical measur es and actions includi ng ECG and other diagn ostics as appropriate, measure Ultra TnI at 0 hrs and at 3 hrs.Myocar dial infarction VERY LIKELYThe 0 hr TnI level is > 0.10 ng/mL -------- -------- -------- --------Myocard ial infarction LIKE LYThe 0 hr TnI level is > 0.04 ng/mL and 3 hr level is increased or de creased by at least 0.0 20 ng/mL -------- -------- -------- ---Myocardial infarction VERY UNLIKELYBoth th e 0 hr and 3 hr TnI le vels <= 0.04 ng/mL(with in normal limits) OR 0 hr is > 0.04 ng/mL and 3 hr is increased OR decreased by le ss than 0.020 ng/mL [place] MethodistBasic metabolic [id number] 18:27:26 Test Item Value Reference Range Interpretation Comments Sodium (test code = 2951-2) 145 135- 148 mEq/L Potassium (test code = 2823-3) 3.5 3.5- 5.0 mEq/L Chloride (test code = 2075-0) 105 98- 112 mEq/L CO2 (test code = 2027-9) 23 24- 31 mEq/L L Anion gap (test code = 06979-9) 17@ANIO 7- 15 mEq/L H BUN (test code = 3094-0) 9 mg/dL 8-23 Creatinine (test code = 2160-0) 0.76 mg/dL 0.5-0.9 Glucose (test code = 2345-7) 142 mg/dL 65-99 H Calcium (test code = 57395-5) 9.5 mg/dL 8.8-10.2 Lab Interpretation (test code = Abnormal 50266-2) [place] MethodistMagnesium [id number] 18:27:26 Test Item Value Reference Range Interpretation Comments Magnesium (test code = 51193-7) 1.8 mg/dL 1.6-2.4 [place] MethodistEstimated [id number] 18:27:25 Test Item Value Reference Range Interpretation Comments Estimated GFR (test 82 mL/min/1.73 m2 Caterg ory Units code = 5488) InterpretationG 1 >=90 Normal or highG2 60-89 Mildly iwwmvtmysT7v 45-59 Mildly to mode rately ewhyehnoeW9p 30-44 Moderately to severely decreasedG4 15-29 Severely decre asedG5 <15 Kidn ey failureThe eGFR was calculated usin g the Chronic Kidney Disease Epidemiology Co llaboration (CKD-EPI) equat ion. Interpretation is based on recommendations of the National Kidney Foundation-Kidn ey Disease Outcomes Qualit y Initiative (NKF-KDOQI) pub lished in 2014. [facility] MethodistPhosphorus [id number] 18:27:24 Test Item Value Reference Range Interpretation Comments Phosphorus (test code = 2777-1) 2.6 mg/dL 2.4-4.5 [place] MethodistPartial thromboplastin time, [id number] 18:15:11 Test Item Value Reference Range Interpretation Comments PTT (test code = 24.7 23.0- 36.0 [place] [address]-3) unfractionated heparin is61.0-112.0 se conds which corresponds to Anti-Xa0.3-0.7 U/ml. [place] MethodistProthrombin time with [id number] 18:13:49 Test Item Value Reference Range Interpretation Comments Prothrombin time (test 13.3 11.5- 14.5 sec code = 5902-2) INR (test code = 1.0 The Interna tional 82194-8) Normalized Rati o (INR) is a therapeutic m onitoring tool for patien ts who are stable on oral anticoagulant t herapy. An INR of 2.0-3.0 is suggested for d eep vein thrombosis/pulm onary embolism. [place] MethodistCBC with platelet and zdxehczwyyjq2986-06-79 18:04:23 Test Item Value Reference Range Interpretation Comments WBC (test code = 71162-8) 13.52 4.50- 11.00 k/uL H RBC (test code = 71816-2) 4.10 m/uL 4.2-5.5 L HGB (test code = 718-7) 12.9 g/dL 12-16 HCT (test code = 4544-3) 39.3 % 37-47 MCV (test code = 787-2) 95.9 fL 82-100 MCH (test code = 785-6) 31.5 pg 27-34 MCHC (test code = 786-4) 32.8 g/dL 31-37 RDW - SD (test code = 42.5 fL 37-55 64327-0) MPV (test code = 81162-2) 10.4 fL 8.8-13.2 Platelet count (test code 229 150- 400 k/uL = 06016-1) Nucleated RBC (test code 0.00 /100 WBC = 87139-8) Neutrophils (test code = 78.5 % 39-69 H 47515-6) Lymphocytes (test code = 11.5 % 25-45 L 09680-2) Monocytes (test code = 9.4 % 0-10 22170-9) Eosinophils (test code = 0.0 % 0-5 97793-5) Basophils (test code = 0.2 % 0-1 99898-9) Immature granulocytes 0.4 % 0-1 "Immat ure (test code = 41265-6) granul ocytes" (promyelocytes, myelocytes, metamyelocytes) Lab Interpretation (test Abnormal code = 77809-5) [facility] [id number] 16:26:11 Test Item Value Reference Range Interpretation Comments POC glucose (test code = 133 mg/dL 65-99 H Ope rator Name: Zion 28035-8) HeidiDevice ID: [id number] able: [facility] 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 Interpretation (test Abnormal code = 88022-8) [facility]EfzxwxoaiMdkfbe5185-77-04 15:59:28Douglas Gilmore MD 09/19/2019 4:00 PMAirwayPerformed by: Douglas Gilmore MDAuthorized by: Douglas Gilmore MD Duplicate noteFairview MgfhtjlbnRpdyfb7457-71-04 15:51:07 Douglas Gilmore MD 09/19/2019 3:59 PMAirwayDate/Time: 09/19/2019 3:51 PMPerformed by: Douglas Gilmore MDAuthorized by: Douglas Gilmore MD Location: ORUrgency: ElectiveDifficult Airway: Yes Anesthesiologist: Douglas Gilmore MDPerformed by: anesthesiologistPreoxygenated with 100% O2: Yes Mask Ventilation: Easy maskFinal Airway Type: Endotracheal airwayTechnique Used: Flexible bronchoscopy (intubated successfully using FOB. )Insertion Site: OralBlade Type: Olson (attempt by Dr gilmore and dr Pitts, with Olson 2 and cricoid pressure could not visualize glottis, only able to see epiglottis. )Laryngoscope Blade/Videolaryngoscope Blade Size: 2Measured from: LipsETT to Lips (cm): 23Placement Verified by: CO2 detection, direct visualization, equal breath sounds and fiber optic visualization Number of Attempts at Approach: 2 [facility] MethodistArterial [id number] 15:50:10Douglas Gilmore MD 09/19/2019 3:51 PMArterial linePerformed by: Douglas Gilmore MDAuthorized by: Douglas Gilmore MD Start Time: 09/19/2019 2:21 PMEnd Time: 09/19/2019 2:25 PMStaff: Anesthesiologist: Douglas Gilmore MD Performed by: AnesthesiologistPre-procedure: patient identified, IV checked, site and side verified, risks and benefits discussed, procedure verified, surgical consent complete, patient position confirmed, monitors and equipment checked, pre-op evaluation complete and timeout performed prior to procedure MSBT: antiseptic used, all elements of maximal sterile barrier technique followed, hand hygiene performed, cap/gown used by other personnel and solutions labeled Indications: Indications: hemodynamic monitoring Anesthesia: Anesthesia: GeneralProc edure Details: Arterial Line placement: Placed post induction Line placement site: RadialLine placement side: Left Arterial line gauge: 20 GNumber of attempts: 1Ultrasound guidance used: No Post-procedure: Post-procedure: Sterile dressing applied Post procedure circulation, sensation, movement: Unchanged Patient tolerance: Patient tolerated the procedure well with no immediate complicationsFredo CardosoistXR Lumbar Spine 1 [id number] 15:48:20 Hm Interface, Radiology Results - 09/19/2019 3:51 PM CDTEXAMINATION: XR LUMBAR SPINE 1 VWCLINICAL HISTORY: Z98.890 Other specified postprocedural statesCOMPARISON: Lumbar radiograph 08/14/2019IMPRESSION:Single lateral intraoperative radiograph of the lumbar spine in bone and soft tissue filters demonstrates a posterior approach surgical instrument tip directed towards the L4-L5 level with tip projecting along the inferior aspect of the L4 spinous process.[id number] MethodistCOVID BioRef (NCOVB)2019-09-13 13:20:03 Test Item Value Reference Range Interpretation Comments COVID BioRef Not Detected Not Detected Source Nasophar yngeal (NCOVB) SwabTesting per formed at (test code = [facility] [address] [address]-1) [place] [address] NOTE: Ple ase consider re-collection o f a new specimen, if cl inically indicated. NOTE : The COVID-19 assay has been cleared by the U.S. Food and DrugAdministrat ion under the Emergency Use A uthorization (EUA). [employer] CompanyLE[facility] HospitalCldi Inc[facility] is designated as a high complexity labo ratory by the ClinicalLaborat ory Improvement Amendments of 1 988(CLIA) and is qualified to performthis test. ASSAY INF ORMATION: Real Time RT-PCRREVI SED REPORT, Previously repo rted as: NOTE: Please consider re-collection of a new specim en, if clinically ceferino cated. NOTE: The COVID-19 as say has been cleared by the U.S. Food and Drug Administra tion under the Emergency Use A uthorization (EUA). [facility] is designated as a high complexi ty laboratory by the Clinical Laboratory Improvement Nina ndments of 1988(CLIA) and is qualified to perform this te st. ASSAY INFORMATION: Re al Time RT-PCR (Reported 09/12 12:29) Fredo MethodistComprehensive metabolic [id number] 13:47:39 Test Item Value Reference Range Interpretation Comments Sodium (test code = 142 135- 148 mEq/L 2951-2) Potassium (test code = 4.0 3.5- 5.0 mEq/L 2823-3) Chloride (test code = 100 98- 112 mEq/L 5-0) CO2 (test code = 2028-9) 26 24- 31 mEq/L Anion gap (test code = 16@ANIO 7- 15 mEq/L H 55714-8) BUN (test code = 3094-0) 26 mg/dL 8-23 H Creatinine (test code = 0.90 mg/dL 0.5-0.9 2160-0) Glucose (test code = 111 mg/dL 65-99 H 2345-7) Calcium (test code = 10.5 mg/dL 8.8-10.2 H 70923-2) Protein (test code = 7.6 g/dL 6.3-8.3 -[place] n 2885-2) 4.6-7.0 g/dL1 week 4.4-7 .6 g/dL7 months-1y ear 5.1-7 .3 g/dL1-2 years 5.6-7 .5 g/dL>3 years 6.0-8 .0 g/dS89-681 6.3-8 .3 g/dL Albumin (test code = 4.0 g/dL 3.5-5 1751-7) A/G ratio (test code = 1.1 0.7-3.8 1759-0) Alkaline phosphatase 82 U/L 35-104 (test code = 6768-6) AST (test code = 1920-8) 20 U/L 10-35 ALT (test code = 1742-6) 17 U/L 5-50 Total bilirubin (test 0.3 mg/dL 0-1.2 code = 1975-2) Lab Interpretation (test Abnormal code = 22042-9) [facility] Myelogram 2+Reg Incl Inj W S&U3735-02-86 14:46:39Hm Interface, Radiology Results 09/08/2019 2:49 PM CDTEXAMINATION: IR MYELOGRAM 2 REG INCL INJ W S&ICLINICAL HISTORY: M48.062 Spinal stenosis lumbar region with neurogenic claudication, M54.14 Radiculopathy thoracic region, lumbar stenosisCOMPARISON: None.PROCEDUREAfter informed consent was obtained, the patient was placed in the prone position on the fluoroscopy table.The low back was prepped and draped in usual manner and local anesthesia was made by infiltration with 1% Xylocaine.Under sterile technique and utilizing fluoroscopic guidance, lumbar puncture was made at the level of the L2-3 level , utilizing a 22 Gauge spinal needle. After confirming the subarachnoid locationof the tip of the needle by obtaining small amount of CSF the hub of the needle, approximately 10 mlof Omnipaque 240 were injected intrathecally.The following findings were noted:1. Lumbar: Lateral view demonstrates small ventral extradural indentations on the thecal sac at L3-4 and L4-5.There is no s ignificant lumbar thecal sac compression or obvious root sleeve defects.2. Thoracic: There is no gross extrinsic compression of the thecal sac. The thoracic area was however not well evaluated and willbe better evaluated with CT examination.Contrast flowed into the cervical region showing post ACDF changes at C6-7. The root sleeves opacified normally on the right. There is some blunting of the left C6 root sleeve.There were no side effects or competitions.16 images were saved.IMPRESSION:Uneventful thoracolumbar myelography.Mild ventral indentations at L3-4 to L5-S1 without significant stenosis or obvious root sleeve defects.No gross thoracic abnormalities.Mild blunting of the left C6 root sleeve.[facility]-[id number] MethodistCT Post Myelogram Ttisugqw1762-04-86 12:41:37Hm Interface, Radiology Results 09/06/2019 12:44 PM CDTEXAMINATION: CT POST MYELOGRAM THORACICCLINICAL HISTORY: M54.14 Radiculopathy thoracic region, thoracic radiculopathyCOMPARISON: Non e.TECHNIQUE:Axial helical CT images throughout the THORACIC spine were performed after intrathecalcontrast. Sagittal and coronal reformatted images were generated. CT scans are performed using radiation dose reduction techniques. Technical factors are evaluated and adjusted to ensure appropriate moderation of exposure. Automated dose management technology is applied to adjust radiation exposure while achieving a highly diagnostic quality image.FINDINGS:Sagittal and coronal image reconstructions demonstrate mild disc space narrowing with anterior.There is no significant central canal stenosis.There is no cord compression.T8-9: There is a shallow right paracentral protrusion without cord compression. There is no definite nerve root impingement.The remainder of the thoracic subarachnoid space shows no extrinsic compression or root sleeve defects.There are no paravertebral abnormalities.IMPRESSION:Shallow right paracentral protrusion at T8-9 without definite cord compression or nerve root impingement. However clinical correlation for right C6 radiculopathy is recommended. [facility]-[id number] MethodistCT Post Myelogram Xbylec5229-75-02 12:39:59Addendum by Ally Leong MD on 09/06/2019 5:14 PM ADDENDUM #1 Correctionof typographical error Foraminal protrusion at L3-4 on the left with impingement on the left L3 nerve rootHm Interface, Radiology Results 09/06/2019 12:43 PM CDTEXAMINATION: CT POST MYELOGRAM LUMBARCLINICAL HISTORY: M48.061 Spinal stenosis lumbar region without neurogenic claudication, lumbar stenosisCOMPARISON: None.TECHNIQUE:Axial helical CT images throughout the LUMBAR spine were performed after intrathecal contrast. Sagittal and coronal reformatted images were generated. CT scans are performed using radiation dose reduction techniques. Technical factors are evaluated and adjusted to ensure appropriate moderation of exposure. Automated dose management technology is applied to adjust radiation exposure while achieving a highly diagnostic quality image.FINDINGS:Sagittal and coronal image reconstructions demonstrate degenerative disc space narrowing at L5-S1 and to lesser extentat L3-4 and L4-5 with separation of the lordotic curvature. There is no significant spondylolisthesis or compression fracture.Sacroiliac joint: There are bilateral sacroiliac degenerative changes worseon the right.L5-S1: There is narrowing of the disc space. There are bilateral facet joint hypertrophic and sclerotic changes in the right bulging with bilateral foraminal stenosis with suspected impingement on the bilateral foraminal.L4-5: There is disc bulging with annular bulging, treatment flavum thickening and facet hypertrophic changes. There is bilateral foraminal stenosis slightly more pronounced on the left. There is no significant central canal stenosis.L3-4 there is annular bulging. There is extra foraminal protrusion on the left impinging on the left L3 nerve root. Facet joint degenerative changes and ligamentum flavum thickening without significant central canal stenosis.L2-3: There isno significant disc bulge or stenosis.L1-2: There is no significant disc bulge or stenosis.T12-L1: There is no significant disc bulge or stenosis.T11-12: There is no significant disc bulge or stenosis.I MPRESSION:Relatively severe disc space narrowing at L5-S1 with spondylotic changes and bilateral foraminal stenosis likely relevant for bilateral L5 radiculopathy.Annular bulging and spondylotic changes at L4-5 with foraminal stenosis slightly more pronounced on the left.Extraforaminal protrusion at L3-4 on the left with impingement on the right L3 nerve root. [facility]-[id number] Medical Center Spine External Gyrgy8858-28-49 12:29:05This exam was not acquired at a Protestant facility and has not been interpreted by a Protestant Provider. The exam was imported into our imaging system.[facility] MethodistXR Lumbar Spine Complete W Flex and Dyo4144-13-16 11:34:25Hm Interface, Radiology Results 08/14/2019 11:37 AM CDTEXAMINATION: XR LUMBAR SPINE COMPLETE W FLEX & EXTENDCLINICAL HISTORY: M54.16 Radiculopathy lumbar region, radiculopathyCOMPARISON: CTA abdominal aorta 06/06/2019.FINDINGS::6 views of the lumbar spine are obtained, including flexion and extension images. The lowest functional disc space is assumed to be L5-S1.No evidence of acutefracture or suspicious osseous lesion.There is minimal grade 1 anterolisthesis at L3-4 on the neutral view which is very slightly accentuated in flexion but not significant changed in extension.There is also slight retrolisthesis at L2-3 and L1-2 on the neutral view which are minimally reduced in flexion.There is marked disc space narrowing, mild spondylosis and degenerative change in the disc at L5-S1.. Moderate facet arthropathy at L3-4, L4-L5 and L5-S1.There are multiple small coils projected anterior to the spine at L5-S1 on the left. There are surgical clips in the right upper quadrant.IMPRESSION:Degenerative changes without acute abnormality.[facility]-[id number] and approved by radiology re sident/fellow: Cari Thomson M.D.I, Marilyn Charles MD, personally reviewed the images and resident's/fellow's findings and agree with the final report.[facility] MethodistXR Spine Scoliosos 2-3 Licbo4039-89-13 11:11:25Hm Interface, Radiology Results 08/14/2019 11:14 AM CDTEXAMINATION: XR SPINE SCOLIOSIS 2-3 VIEWSCLINICAL HISTORY: M54.16 Radiculopathy lumbar region, radiculopathyCOMPARISON: NoneIMPRESSION:12 rib-bearing thoracic vertebrae and 5 lumbar vertebrae.Mild left convex upper thoracic curvature with Luong angle measuring 9 degrees from the superior endplate of T1 to the inferior endplate of T4.Minor curvatures of the remainder of the thoracic and lumbar spine with Luong angles measuring 5 degrees or less.A coronal benjie line drawn inferiorly from the mid C7 vertebral body terminates approximately 8 mm to the right of the mid S1 level. A sagittal benjie line drawn inferiorly from the mid C7 vertebral body terminates approximately 3 cm anterior to the posterior aspect of the superior endplate ofS1. Mild thoracic kyphosis and mild exaggeration of the lumbar lordosis superiorly.No significant pelvic tilt.Anterior spinal fusion C6-C7 with anterior plate and screw fixation and interbody graft.[id number] MethodistCOPY(IES) SENT TO:2019-06-07 05:40:00Copies/mLComment: TEVIN CARRASCO CARDIO [address] [facility] [address] [place] [address] [facility] MethodistCOPY RECEIVED FROM:2019-06-07 05:40:00Copy received from:Comment: TEVIN CARLOSAILEEN CARDIO [address] [facility] [address] [place] [address] [facility] EtwbfflduEGIWSTTGTA7259-50-22 18:52:002 [facility] EbenoupFTJXFXXULO5766-64-79 18:52:79761.20[facility]ann[facility]MATOLOGY 2019-03-15 18:52:0062.60[facility] WlmdfnhBRJAHZMVHI3499-85-60 18:52:009[facility] MscsfvvDAKYVTQOPZ0980-13-69 18:52:00 Test Item Value Reference Range Interpretation Comments Varicella IgM (test code = Varicella 0.69 1 IgM) [facility] AND NGZUU9428-73-26 21:21:00Negative (05/06/17 3:21 PM) [facility] AND JJEBA9458-37-40 21:21:00Negative (05/06/17 3:21 PM) [facility] GWFIQ8832-60-69 21:21:00Negative *NA*(05/06/17 3:21 PM) [facility] ADBRJ6256-59-90 21:21:00Negative (05/06/17 3:21 PM) [facility] PDGXV0022-75-56 21:21:001[facility] PGJGD1100-96-71 21:21:002[facility] DJAPF0587-28-06 21:21:00 Yellow *NA*(05/06/17 3:21 PM)[facility] WGDNS0810-03-35 21:21:00 1.019[facility] AND FZGPZ4647-50-76 21:21:005.0[facility] AND EVVGA7756-03-94 21:21:00Slight *ABN*(05/06/17 3:21 PM)[facility]annCHEM JLSVT5459-33-56 20:57:53517Ovxcgszl HermannCHEM XWPCD8504-55-46 20:57:0042 [facility] UwwmrjvNCRUXFBUFORR2712-33-76 20:57:72950Wmijmhip HermannELECTROLYTES 2017-05-06 20:57:85393Anfvqwfv EurcmteKTQVFSTWIJLG0154-04-79 20:57:004.0[facility] SrmsiufTGLCNXLPZIYU3677-03-67 20:57:0041[facility] MgmomhkMOBPKRJFRMGY3334-57-47 20:57:000.7[facility] PlmnwcqQNWBNVEVMTBJ4699-59-32 20:57:0082[facility] SUQWJMRNXANJ5043-50-22 20:57:001.0[facility] NvywnoiQLJVFWBJNPZN8573-08-22 20:57:0019[facility] IggbwioUKFHRMUFFSOE9884-53-59 20:57:0015[facility] MXOAUZFGWQBG8953-81-30 20:57:004.1[facility] RdallzuFWNGBXDHAYAU0553-62-42 20:57:004.3[facility] PxmakvlSEMMGLUHLTCK4427-05-51 20:57:0018[facility] INLKEEVUXNIN4092-06-99 20:57:009.4[facility] GfkyyzbEPEFTBGPQNEI0702-06-49 20:57:008.4[facility] IrcxljmRMNONNRPBLFG5264-48-86 20:57:0027[facility] IBXMEIORZGHX3205-81-46 20:57:0016.0[facility] GgkdetxSSEUQEUUYCHG6038-95-72 20:57:001.36[facility] SdcbrrjDSJMXACHFNNM2612-17-83 20:57:0024[facility] OVPGVSIENAWR0727-09-22 20:57:0077[facility] JxpatjuBGGVZYFBEF5617-19-64 20:57:00 2.3[facility] QpeelfmVWQMWUQCAK9031-68-94 20:57:000.8[facility]annHEMATOLOGY 2017-05-06 20:57:000.2[facility] WxxrorsJLSUVICASO3627-68-06 20:57:000.4[facility] HhbmbrtNIZIZJSLJY8253-18-42 20:57:006.4[facility] AlmtskjYNZWLSACDO9478-02-44 20:57:0024.4[facility] EzgrurtAXYXGFKMIH5573-50-28 20:57:008.1[facility] XVXEZDUKGI0438-38-36 20:57:0066.9[facility] RqjsysoBUVXAZGPJK7947-90-29 20:57:00 8.4[facility] LrdkxvfZOJLGGYGKJ4449-64-35 20:57:83731Nvamjhtj HermannHEMATOLOGY 2017-05-06 20:57:00 Test Item Value Reference Range Interpretation Comments MCH (test code = MCH) 32.4 pg 27.0-31.0 [facility] HjezcibCOPMCDPLIU7687-83-00 20:57:0012.5[facility] HermannHEMATOLOGY 2017-05-06 20:57:0091.5[facility] UsijkirHCJEBFHODS5330-46-33 20:57:0035.4[facility] GepmyuoJHFTIAEKSE1580-85-55 20:57:0042.5[facility] EcbtxftELZXPUFNFW7506-21-51 20:57:009.6[facility] NzjtfnbXJUVGUEKUS8996-62-05 20:57:0015.1[facility] NZKTFPPJQU6113-99-58 20:57:004.65[facility] WutnfptBOGHPJALJ9518-62-45 05:00:0095 [facility] CkwdhjcIDHUQLFEM7436-72-27 05:00:0012.9[facility] HermannCHEMISTRY 2013-01-23 05:00:008.5[facility] DspoqzrOFEOJHOXB5034-77-88 05:00:0075[facility] ShtajghSQJQJIPNI0048-66-02 05:00:0028[facility] UccemkbIJVYXOQEY2337-94-57 05:00:05036Crtvbxlx XcshctxPCGUPVUTL1299-02-97 05:00:003.9[facility] GLZGTMBHD2035-00-31 05:00:005[facility] OhkthebRMFBFMGDR6483-57-14 05:00:000.7 [facility] OoggmzwCJSCCZPTW7767-38-37 05:00:47141Awiahxaa HermannHEMATOLOGY 2013-01-23 05:00:008.4[facility] CvbmqszFMMUZRTICO1458-39-53 05:00:003.95[facility] CanyhdqIBNZHZODIQ8988-98-36 05:00:005.7[facility] EyudewiQVTOJNWHKT1099-90-31 05:00:00 Test Item Value Reference Range Interpretation Comments MCH (test code = MCH) 33.0 pg 27.0-31.0 H [facility] IepfvnoXVWWNCWYCP4922-85-42 05:00:0037.4[facility] HermannHEMATOLOGY 2013-01-23 05:00:0013.0[facility] TfejmwtHREWPEFZZE5885-26-00 05:00:0094.8[facility] UzpazzmPGPHJTCWMZ2225-39-83 05:00:0012.6[facility] OojqrjcIVNOENPZOA7302-45-12 05:00:0034.8[facility] JpzgfbcEMKLNSRSRP4313-71-76 05:00:44383Iehdmkwf Cross IIZADFILQZ8227-26-13 05:00:0050.9[facility] KjqfgzgJTDBTYILMP8894-88-97 05:00:00 36.5[facility] YzguszzIUSUHLSKOK9764-58-17 05:00:0010.0[facility] HermannHEMATOLOGY 2013-01-23 05:00:000.6[facility] XgiqhzxAJUMJHOHFP8893-28-73 05:00:000.1[facility] ZgxyjenDBIDAMBDSP9579-16-21 05:00:002.9[facility] MnrazimPMULUEFAUR1556-44-06 05:00:002.1[facility] XfynaleODIMJIOVNU5106-60-60 05:00:002.2[facility] NGVNRDDZGS0699-62-13 05:00:000.4[facility] AkujwvdRSNZGBVLU9475-89-68 08:45:67568 [facility] PockwmvFOOIAVQBW8258-67-10 08:45:003.1[facility] HermannCHEMISTRY 2013-01-22 08:45:001.0[facility] MdqblfmKUPRQDTAP5769-75-91 08:45:004[facility] MkfluedAUPCNHZNA3619-88-71 08:45:0011.9[facility] TgfqbxcGRVMKZXAD0803-88-40 08:45:0095[facility] OqnsjqiDNHLESTTP4084-92-76 08:45:0016[facility] QDCPKZXOW1124-71-06 08:45:0026[facility] MlnpfeiHSZHLFUOO8625-53-64 08:45:008.0 [facility] IqrxbwsPHLBGSESO0375-19-18 08:45:006.1[facility] HermannCHEMISTRY 2013-01-22 08:45:000.5[facility] BvkqswhAFICMJORC8531-19-34 08:45:000.7[facility] MfximxdMLZARNQCH3278-91-09 08:45:02069Wdbyshcu KgqqcmaVROUYVGSM8774-92-17 08:45:39908Kotkwgnl HzzoxjjSQYMVYGDL6976-73-69 08:45:003.9[facility] CFLZJZKJN1074-12-28 08:45:0020[facility] PhswummVMOFCSPFF2315-00-00 08:45:003 [facility] UllxzduGPXIFIGGR2322-96-10 08:45:89608Waemqgyf HermannCHEMISTRY 2013-01-22 08:45:0074[facility] HwngvbxUPMRFXUYL1229-24-56 08:45:003.0[facility] YnajfdeJSMUNHDRTH9892-85-96 08:45:000.1[facility] OrtwurtFIVLGERNHO8340-28-11 08:45:000.3[facility] JwafxqvPXLJFEEZXG5493-12-61 08:45:002.8[facility] CNMLEDKWFP5726-70-70 08:45:002.0[facility] XsnibphGBSSWIOLBE9728-42-03 08:45:000.6 [facility] KgemwfpQGGRGAXITQ2657-45-96 08:45:0035.5[facility] HermannHEMATOLOGY 2013-01-22 08:45:0011.0[facility] YqpmlocLHOQRARWYS8338-02-76 08:45:002.1[facility] QaaqlfaECGHYJYWUI8901-72-03 08:45:0051.1[facility] YsqvxjjHRTSSLTDOO8816-92-91 08:45:0015[facility] WrxbtuqGCFNXEAAEN5349-33-17 08:45:0034.6[facility] DOWKVLGFBK0167-74-63 08:45:00 Test Item Value Reference Range Interpretation Comments MCH (test code = MCH) 32.8 pg 27.0-31.0 H [facility] HgjwnuoESAISRKBXE3995-33-78 08:45:0012.3[facility] HermannHEMATOLOGY 2013-01-22 08:45:008.2[facility] FynnikxEOFSBAKAQB7109-70-95 08:45:46420Akvexfpe BubnxbnJSTMOBHLRF6033-79-81 08:45:003.63[facility] EbceevoGQWKMKUWPI2681-77-15 08:45:005.5[facility] BvgapvnQSYEXNGIQU2599-43-61 08:45:0011.9[facility] SLJCTWXQRE1446-41-84 08:45:0034.5[facility] UkqwgsjGUFJCTWSYN3708-94-22 08:45:00 94.9[facility] HermannTUMOR ZEZABQY3370-59-76 08:45:007.0[facility] HermannCHEMISTRY 2013-01-21 16:51:550.9[facility] QwbrazdXIABDHJZT8742-87-10 16:51:0095[facility] GbvhorwJNKRQUYRI9663-82-00 16:51:004.1[facility] YnupqmqDXOTHOVJJ5572-69-04 16:51:55210Finzmudv XptvjpzORDQHDLNV1354-41-51 16:51:38055Gkioajvs Cross IKMLAKZQA8514-11-76 16:51:22278Bygslrht LvdxbohSVPJMNNWW0164-64-59 16:51:007 [facility] VijbglwHZQMYJRBB7544-28-50 16:51:0025[facility] HermannCHEMISTRY 2013-01-21 16:51:008.2[facility] EbdezjrNPTSUFLCU6269-98-65 16:51:000.7[facility] FhkiwpeFVCVDEVZM8034-59-44 16:51:0012.1[facility] ZwvmvueHMKFHAUUP1761-56-80 16:51:001.38[facility] UoeloyaZVFGCTQGE3209-24-45 07:55:001.8[facility] LGXNEHHGL7519-08-62 07:55:96282Uuxcuuyu BzgoluxVAOBZAEMY1991-48-48 07:55:0066 [facility] PbzhaejYCNYBGAAG2625-26-25 07:55:0018[facility] HermannCHEMISTRY 2013-01-21 07:55:002.9[facility] MbuhrobWMQHMGOCQ7305-33-07 07:55:0024[facility] VxxqsclTHNDKLIFF8570-41-22 07:55:000.7[facility] EygzvnqWSSSTKPBK3318-88-88 07:55:005.7[facility] TayfioqZNORTSJDA4323-61-58 07:55:0022[facility] IVEQNPFOW0097-77-28 07:55:001.0[facility] RpktphxDLQQIFLIG0705-53-20 07:55:002.8 [facility] TsaywvlJKKQJJEWCF2021-61-97 07:55:008.6[facility] HermannHEMATOLOGY 2013-01-21 07:55:0023.8[facility] FfvllrxDQIBBSKYSY0534-57-51 07:55:000.6[facility] UdzqqcoUAKNLKRZIH4307-70-30 07:55:0066.4[facility] ArwseyfWEEMZLTZQV1301-09-07 07:55:000.8[facility] PtzkttkHQVPHUWWHG1657-70-55 07:55:002.1[facility] BLKDTFWVTJ8513-32-26 07:55:000.6[facility] UedfewbGPIEVXMWMO0621-65-71 07:55:005.9 [facility] TcifupaDFAJORTXLJ6544-86-82 07:55:000.1[facility] HermannHEMATOLOGY 2013-01-21 07:55:000.1[facility] VsnkmdaRLIQSMCXKL9344-62-75 07:55:0012.7[facility] ZemftmmBTRIVTGCNO5052-95-42 07:55:0034.1[facility] KetznitXXKPKCNGUS0554-80-45 07:55:0095.7[facility] PbxqenrRGUDXBBQSE9808-27-59 07:55:0011.5[facility] ELLPFADOJX8976-93-81 07:55:0033.6[facility] VllcwfsEKRPQQHWJW8536-00-58 07:55:00 Test Item Value Reference Range Interpretation Comments MCH (test code = MCH) 32.6 pg 27.0-31.0 H [facility] LzaorddPVPMXHRRQD9011-53-17 07:55:008.5[facility] HermannHEMATOLOGY 2013-01-21 07:55:41895Cexuxrai QlovryaUMJPBQQPUE4243-66-04 07:55:003.52[facility] HhfurtjSXPRHUIRYA8073-17-29 07:55:008.9[facility] LhyyyjcDDVSGDFTLA7433-64-75 04:30:05Performed (01/19/2013 23:30:05)[facility] UhfmolwJHULRIHQSQ1657-14-14 04:30:05None Seen (01/19/2013 23:30:05)[facility] IfkehwlMGATNSTZZO2190-31-58 04:30:05Few /LPF (01/19/2013 23:30:05)[facility] VekuaolHWTZWNZRII6408-12-35 04:30:05None Seen (01/19/2013 23:30:05)[facility] NeessgmGMYZNRZZHB4417-07-42 04:30:05Negative (01/19/2013 23:30:05)[facility] RbvvvkqSHSMHXNIJN3667-48-34 04:30:050.2[facility] MdyfkbyOGIKIGYKAG9138-11-57 04:30:05Negative *NA*(01/19/2013 23:30:05)[facility] IckaunaOMPGWRBNLG9485-87-10 04:30:05Negative (01/19/2013 23:30:05)[facility] NwdilgdJKJZRGNZAJ8460-53-15 04:30:05Negative (01/19/2013 23:30:05)[facility] BpnlbzwGKKGBWWPRB1420-11-13 04:30:05Negative mg/dL (01/19/2013 23:30:05)[facility] BiwdvpzBUXXNSRZCE7388-45-52 04:30:05Negative mg/dL *NA*(01/19/2013 23:30:05)[facility] GnhrvcdDJJOGUCQIA9665-69-22 04:30:05 Test Item Value Reference Range Interpretation Comments UA pH (test code = UA pH) 8.0 1 5.0-8.0 N [facility] GhfqxxwKGATRNOSMS7521-01-83 04:30:05Negative mg/dL (01/19/2013 23:30:05)[facility] JbcziwxPPFEBUDSOE8351-54-88 04:30:05Clear (01/19/2013 23:30:05)[facility] RgpoeapKJOGIJCHID8805-07-89 04:30:05 Test Item Value Reference Range Interpretation Comments UA Spec Grav (test code = UA Spec 1.015 1 N Grav) [facility] KhkjdvrXTPSHDAQVA7283-22-45 04:30:05Yellow *NA*(01/19/2013 23:30:05) [facility] IzssubhLMTASQXUM4901-85-95 03:30:98757Qhknkoyy HermannCHEMISTRY 2013-01-20 03:30:007.3[facility] YrncpusABYDFWKBX2485-58-33 03:30:000.5[facility] YvgjgqpWQGYZGAKR9977-30-96 03:30:003.8[facility] WqgcbfiNNUOAEGUG8009-93-64 03:30:0030[facility] GdqwtnyNFPGDQBOF3879-57-11 03:30:0081[facility] TQWEJKVCR8650-24-65 03:30:000.1[facility] IyamkqwPZZAFCXDJ2322-00-07 03:30:0023 [facility] EucqstaCCQFABKYA1976-64-49 03:30:003.5[facility] HermannCHEMISTRY 2013-01-20 03:30:001.1[facility] FulnczpKKBLOODJH5756-84-57 03:30:000.4[facility] JoxlpmzTJIKUTGMTB9334-60-04 03:30:000.1[facility]
[2019-10-30] MEDS ORDERED: ASPIRIN EC 81 MG TAB PO ONE (18:07)
[2019-10-30] MEDS ORDERED: NA CHLORIDE 0.9% 1,000 ML ONE (18:07)
[2019-10-30 18:40] LABS: Absolute Lymphocytes (CBC) 2.1 K/uL (0.7-4.9); Basophils % 1.1 % (0-1.3); Hematocrit 38.8 % (36.0-45.0); MPV 8.7 fL (7.6-11.3); RBC Red Blood Cell Count 4.17 M/uL (3.86-4.86)
[2019-10-30 18:47] LABS: Urine Blood NEGATIVE (NEG); Urine Glucose NEGATIVE (NEG); Urine Protein NEGATIVE (NEG); Urine pH 5.5 (5.0-7.0)
[2019-10-30 19:03] LABS: ALT/SGPT 20 U/L (12-78); AST/SGOT 19 U/L (15-37); Albumin 3.7 g/dL (3.4-5.0); Alkaline Phosphatase 108 U/L (45-117); BUN Blood Urea Nitrogen 18 mg/dL (7-18); Bicarbonate 28 mmol/L (21-32); Bilirubin Direct < 0.1 mg/dL (0-0.2); Bilirubin Total 0.3 mg/dL (0.2-1.0); Glucose Level 103 mg/dL (74-106); Lipase 119 U/L (73-393); Magnesium 2.2 mg/dL (1.8-2.4); NT PRO-BNP 182 pg/mL (<125); Potassium 3.8 mmol/L (3.5-5.1); Protein, Total 7.6 g/dL (6.4-8.2); Sodium Level 141 mmol/L (136-145); Troponin (Emerg Dept Use Only) < 0.02 ng/mL (0.0-0.045)
--- NOTE | 2019-10-30 19:16 | RAD REPORT ---
EXAM DESCRIPTION: RAD - Chest Single View - 10/30/2019 6:37 pm CLINICAL HISTORY: Chest pain;Dyspnea COMPARISON: Portable January 2016 TECHNIQUE: AP portable chest image was obtained 10/30/2019 6:37 pm . FINDINGS: Lung volumes are decreased. Focal airspace infiltrate is present in the mid right lung fie ld. Lung markings are accentuated by the lower lung volumes than comparison. Heart and vasculature ar e normal. No measurable pleural effusion and no pneumothorax. No acute bony abnormality seen. No acut e aortic findings suspected. IMPRESSION: Right midlung field pneumonia
--- NOTE | 2019-10-30 19:20 | RAD REPORT ---
EXAM DESCRIPTION: CT - Chest For Pe Angio - 10/30/2019 6:59 pm CLINICAL HISTORY: DYSPNEA COMPARISON: Chest Single View dated 10/30/2019 TECHNIQUE: Dynamically enhanced 3 mm thick images of the chest were obtained during administration o f approximately 150mL Isovue 370 IV contrast. Coronal and oblique MIP reconstruction images were gene rated and reviewed. Exam utilizes a protocol to evaluate the pulmonary arterial tree. All CT scans are performed using dose optimization technique as appropriate and may include automated exposure control or mA/KV adjustment according to patient size. FINDINGS: Large pulmonary emboli filled the right lower lobe pulmonary artery and several segmental branches. In the posterolateral mid portion of the right lower lobe there is airspace opacification. This is in the distribution of 1 of the involve segmental pulmonary arteries. This is most likely pul monary hemorrhage related to the embolus rather than an pneumonia. No cavitation is present. Emboli e xtend into the right middle lobe as well. No right upper lobe embolic disease confirmed. Left lung fi eld is clear. No suspicious mass of the lung parenchyma. There is scattered hazy areas of ground-glass opacificatio n that are probably atelectasis rather than infiltrate. The aorta as imaged shows no acute or suspicious finding. No pericardial thickening or effusion. No pleural effusion or pleural thickening. No mediastinal or hilar suspicious masses. No chest wall masses or abnormal axillary lymphadenopathy. IMPRESSION: Right lower lobe and right middle lobe pulmonary emboli with a 5 centimeter area of pulm onary hemorrhage in the midportion of the right lower lobe. Hazy ground-glass opacities scattered elsewhere in the lung gay believed to be atelectasis. Infilt rate etiologies are not suspected. There is no classic COVID infection pattern.
--- NOTE | 2019-10-30 19:24 | RAD REPORT ---
EXAM DESCRIPTION: CT - Soft Tissue Neck W/Contr - 10/30/2019 6:59 pm CLINICAL HISTORY: PAIN COMPARISON: SOFT TISSUE NECK W CONTRAST dated 02/18/2014 TECHNIQUE: During dynamic enhancement using 100 milliliters nonionic IV contrast, axial 5 millimeter thick images of the neck were obtained. All CT scans are performed using dose optimization technique as appropriate and may include automated exposure control or mA/KV adjustment according to patient size. FINDINGS: Intracranial portion of the examination is unremarkable. Mastoid air cells and paranasal s inuses as imaged are clear. Globes and orbits are too obscured to allow assessment. No pharyngeal mucosal mass or asymmetry. No tonsillar or tongue base mass. Dental spray artifact is s omewhat limiting. Epiglottis is normal. No laryngeal abnormality. The parotid and submandibular glands show no suspicious findings. The thyroid suspicious finding. No vascular abnormality. No mass or lymphadenopathy in the neck soft tissues. C6-7 fusion changes are present appearing well h ealed. Significant degenerative disc disease at C5-6. IMPRESSION: CT neck imaging shows no acute or suspicious finding. Nonacute findings detailed in the body of the report.
--- NOTE | 2019-10-30 19:49 | ER ---
Nurse's Notes [facility] Name: Haley Porter Age: 63 yrs Sex: Female : 1955 Arrival Date: 10/30/2019 Time: 16:37 Bed 19 Private MD: Rob Alonzo Diagnosis: Other chest pain;Chest pain on breathing;Pulmonary embolism-right lower and right middle lower, associated 5 cm pulmonary hemorrhage;Acute embolism and thrombosis of deep veins of lower extremity-left leg, superificial femoral Presentation: 10/29 16:38 Chief complaint: Patient states: chest pain, sore throat, SOB with exertion, headache x sv 1 month. Reports that she had surgery a month ago and since waking up from the surgery she has had these problems. Coronavirus screen: Surgical mask placed on patient. Patient moved to private room, placed in contact and droplet isolation with eye protection until further assessment. Patient denies a cough. Patient reports shortness of breath or difficulty breathing. Patient denies measured and/or subjective temperature greater than 100.4F prior to today's visit. Patient denies travel on a cruise ship or to a country [facility] currently lists as an affected area. Patient denies contact with known and/or suspected case of COVID-19. Ebola Screen: No symptoms or risks identified at this time. Risk Assessment: Do you want to hurt yourself or someone else? Patient reports no desire to harm self or others. Onset of symptoms was September 2019. 16:38 Method Of Arrival: Ambulatory sv 16:38 Acuity: RADHA 3 sv 16:40 Initial Sepsis Screen: Does the patient meet any 2 criteria? No. Patient's initial sv sepsis screen is negative. Does the patient have a suspected source of infection? No. Patient's initial sepsis screen is negative. Triage Assessment: 16:40 General: Appears in no apparent distress. uncomfortable, Behavior is cooperative, sv appropriate for age, anxious. Pain: Complains of pain in chest. Neuro: Level of Consciousness is awake, alert, obeys commands, Oriented to person, place, time, situation, Gait is steady. Respiratory: Respiratory effort is even, unlabored. Derm: Skin is normal. Historical: - Allergies: 16:40 Morphine; sv 16:40 Valium; sv 16:40 Versed; sv 16:40 Oral steroids; sv - PMHx: 16:40 Anxiety; Hypertension; Pancreatitis; TMJ; sv - PSHx: 16:40 Cholecystectomy; sv - Immunization history:: Adult Immunizations unknown. - Family history:: not pertinent. - Social history:: Smoking status: Patient/guardian denies using. Screenin:36 Abuse screen: Denies threats or abuse. Nutritional screening: No deficits noted. Tuberculosis screening: No symptoms or risk factors identified. 22:15 Fall Risk None identified. Assessment: 17:00 General: Appears uncomfortable, Behavior is calm, cooperative, appropriate for age. Pain: Complains of pain in chest and throat Pain does not radiate. Pain began 1 month. Neuro: Level of Consciousness is awake, alert, obeys commands, Oriented to person, place, time, situation, Appropriate for age. Cardiovascular: Reports chest pain, Capillary refill < 3 seconds Patient's skin is warm and dry. Rhythm is sinus rhythm Chest pain is described as mild, is located in substernal area. Respiratory: Airway is patent Respiratory effort is even, unlabored, Respiratory pattern is regular, symmetrical, Breath sounds are clear bilaterally. GI: Bowel sounds present X 4 quads. Derm: Skin is intact, is healthy with good turgor. 18:00 Reassessment: pt sitting in bed resting with no needs voiced at this time. 18:53 Reassessment: Pt to radiology via for CT scan. 19:15 Reassessment: Pt returned from CT and c/o pain when she takes a deep breath to her right side. Unable to get Pt comfortable at this time. notified. 19:40 Reassessment: Dr Sanchez in room to explain findings on CT scan. Pt is tearful and anxious at this time. 20:00 Reassessment: Pt medicated for pain at this time. 21:00 Reassessment: Ultrasound in room at this time for bilateral LE dopplers. 21:51 Reassessment: [facility]. Man states that he does not have bed assignment yet and cannot take report at this time. He states they will call back. 22:15 Reassessment: Patient appears in no apparent distress at this time. Patient and/or family updated on plan of care and expected duration. Pain level reassessed. Patient is alert, oriented x 3, equal unlabored respirations, skin warm/dry/pink. 22:49 Reassessment: 3rd time recollect requested by Lab, notified Charge Nurse. 10/30 00:00 Reassessment: Patient appears in no apparent distress at this time. No changes from previously documented assessment. Patient and/or family updated on plan of care and expected duration. Pain level reassessed. Patient is alert, oriented x 3, equal unlabored respirations, skin warm/dry/pink. 01:15 Reassessment: Patient appears in no apparent distress at this time. No changes from previously documented assessment. Patient and/or family updated on plan of care and expected duration. Pain level reassessed. Patient is alert, oriented x 3, equal unlabored respirations, skin warm/dry/pink. Vital Signs: 10/29 16:40 BP 129 / 72; Pulse 73; Resp 18; Temp 98.1; Pulse Ox 98% ; Weight 78.93 kg; Height 5 ft. sv 6 in. (167.64 cm); 18:12 BP 140 / 81; Pulse 103; Resp 18; Pulse Ox 99% ; ah 19:15 BP 136 / 73; Pulse 64; Resp 18; Pulse Ox 100% ; ah 20:15 BP 152 / 89; Pulse 66; Resp 20; Pulse Ox 96% ; ah 21:15 BP 141 / 69; Pulse 61; Resp 21; Pulse Ox 97% ; ah 22:00 BP 152 / 70; Pulse 66; Resp 18; Pulse Ox 94% on R/A; 23:30 BP 150 / 72; Pulse 62; Resp 18; Pulse Ox 98% on R/A; 10/30 01:00 BP 151 / 69; Pulse 66; Resp 18; Pulse Ox 98% on R/A; 10/29 16:40 Body Mass Index 28.09 (78.93 kg, 167.64 cm) sv ED Course: 10/29 16:37 Patient arrived in ED. mr 16:37 Rob Alonzo MD is Private Physician. mr 16:40 Triage completed. sv 16:40 Arm band placed on. sv 16:55 Zain Sanchez MD is Attending Physician. [facility] 17:55 Fernanda Avalos, RN is Primary Nurse. ah 18:15 Placed in gown. Bed in low position. Call light in reach. Side rails up X 1. Warm jp3 blanket given. Verbal reassurance given. phototypesetting equipment monitor on. Pulse ox on. NIBP on. 18:30 Initial lab(s) drawn, by me, sent to lab. Inserted saline lock: 20 gauge in right jp3 antecubital area, using aseptic technique. Blood collected. 18:30 Patient maintains SpO2 saturation greater than 95% on room air. jp3 18:37 XRAY Chest (1 view) In Process Unspecified. EDMS 18:59 CT Soft Tissue Neck W/contr In Process Unspecified. EDMS 18:59 CT Chest For PE Angio In Process Unspecified. EDMS 20:30 Inserted POWERGLIDE 18 X 10, MIDLINE, LEFT UPPER ARM. rv 21:06 US Extremity Venous W Compression Rolly In Process Unspecified. EDMS 21:30 Dr. Sanchez spoke with Kristy Osorio at [facility] in regards to tt3 transferring a pt. Kristy Osorio gave admin approval at [id number]. The accepting physician is Dr. Mihir Hannah. Report to be called to . Face Sheet and MOT to be faxed to [phone]. 10/30 01:21 No provider procedures requiring assistance completed. Patient transferred, IV remains wh in place. 02:07 Attending Physician role handed off by Zain Sanchez MD tt3 02:07 Primary Nurse role handed off by Fernanda Avalos RN tt3 Administered Medications: 10/29 18:27 Drug: Aspirin 81 mg Route: PO; 20:29 Follow up: Response: No adverse reaction ah 19:00 Drug: NS 0.9% 1000 ml Route: IV; Rate: 1 bolus; Site: right antecubital; ah 21:22 Follow up: Response: No adverse reaction; IV Status: Completed infusion ah 22:24 Follow up: Response: No adverse reaction; IV Status: Completed infusion ah 20:05 Drug: fentaNYL (PF) 25 mcg Route: IVP; Site: right antecubital; ah 21:21 Follow up: Response: No adverse reaction ah 20:05 Drug: Zofran (Ondansetron) 4 mg Route: IVP; Site: right antecubital; 21:21 Follow up: Response: No adverse reaction 20:50 Drug: fentaNYL (PF) 25 mcg Route: IVP; Site: right antecubital; 21:21 Follow up: Response: No adverse reaction 20:54 CANCELLED (Duplicate Order): Heparin (HI-Bolus No thrombolytic) - HEParin 60 units/kg dorian IVP once; Max 5000 units 21:00 Drug: levofloxacin 500 mg Volume: 100 ml; Route: IVPB; Infused Over: 60 mins; Site: right antecubital; 22:02 Follow up: Response: No adverse reaction; IV Status: Completed infusion 21:30 Drug: fentaNYL (PF) 25 mcg Route: IVP; Site: right antecubital; 22:02 Follow up: Response: No adverse reaction 22:23 Follow up: Response: No adverse reaction 21:35 Drug: Pepcid 20 mg Route: IVP; Site: left antecubital; 22:24 Follow up: Response: No adverse reaction 10/30 00:12 Drug: Heparin (HI-Bolus No thrombolytic) - HEParin 60 units/kg {Co-Signature: vc (Sanjuana Jeffrey RN).} Route: IVP; Site: right antecubital; : Follow up: Response: No adverse reaction 00:14 Drug: Heparin (HI Drip) 12 units/kg/hr - (HEParin 39740 units, D5W 500 ml) {Co-Signature: vc (Sanjuana Jeffrey RN).} Route: IV; Rate: calculated rate; Site: right antecubital; 01:25 Follow up: Response: No adverse reaction; IV Status: Infusion continued upon transfer 01:00 Drug: fentaNYL (PF) 25 mcg {Note: RASS 0.} Route: IVP; Site: right antecubital; 01:25 Follow up: Response: No adverse reaction; Pain is decreased; RASS: Alert and Calm (0) Outcome: 10/29 19:48 ER care complete, transfer ordered by . dorian 10/30 01:21 Transferred by ground EMS to [facility], Transfer form completed. X-rays sent w/ patient. Note: Report given to [facility] and Mark Preciado RN Condition: stable Instructed on the need for transfer, Demonstrated understanding of instructions. 01:26 Patient left the ED. 02:09 Patient left the ED. lp1 Signatures: [facility] Deedee Maharaj RN RN sv Anderson, Corey, MD MD cha Rivera, Lakia mr David, Asiya, RN RN lp1 Tee Benitez Ronaldo, RN RN rv Jamie Garrett jp3 Fernanda Avalos RN RN ah Trim, Tyler tt3 Sanjuana Jeffrey RN vc Corrections: (The following items were deleted from the chart) 10/29 16:43 16:38 Chief complaint: Patient states: chest pain, sore throat, SOB with exertion x 1 sv month. Reports that she had surgery a month ago and since waking up from the surgery she has had these problems. sv 16:43 16:40 Pulse 73bpm; Resp 18bpm; Pulse Ox 98%; Temp 98.1F; 78.93 kg; Height 5 ft. 6 in.; sv BMI: 28.0; sv
--- NOTE | 2019-10-30 19:49 | EDPHYS ---
Physician Documentation [facility] Name: Haley Porter Age: 63 yrs Sex: Female : 1955 Arrival Date: 10/30/2019 Time: 16:37 Bed 19 Private MD: Rob Alonzo ED Physician HPI: 10/29 17:48 This 63 yrs old Female presents to ER via Ambulatory with complaints of Chest dorian Pain, Sore Throat. 17:48 The patient or guardian reports chest pain that is located primarily in the substernal dorian area, anterior chest wall, bilaterally. Onset: 1 day(s) ago. The pain does not radiate. Associated signs and symptoms: The patient has no apparent associated signs or symptoms. The chest pain is described as a heaviness. Duration: The patient or guardian reports a single episode, that is still ongoing. Modifying factors: The symptoms are alleviated by nothing. the symptoms are aggravated by nothing. Severity of pain: At its worst the pain was mild moderate in the emergency department the pain is unchanged. 17:51 The patient has shortness of breath at rest, with light activity. Onset: The dorian symptoms/episode began/occurred 1 month(s) ago. Duration: The symptoms are continuous, and are steadily getting worse. The patient's shortness of breath has no apparent modifying factors. The patient or guardian complains of decreased range of motion, an injury, pain. The symptoms are located on the chin, right jaw and left jaw. Context: The problem was sustained at an unknown location, at a possible with intubation related. Historical: - Allergies: 16:40 Morphine; sv 16:40 Valium; sv 16:40 Versed; sv 16:40 Oral steroids; sv - PMHx: 16:40 Anxiety; Hypertension; Pancreatitis; TMJ; sv - PSHx: 16:40 Cholecystectomy; sv - Immunization history:: Adult Immunizations unknown. - Family history:: not pertinent. - Social history:: Smoking status: Patient/guardian denies using. ROS: 17:51 Constitutional: Negative for fever, chills, and weight loss, Eyes: Negative for injury, dorian pain, redness, and discharge, Neck: Negative for injury, pain, and swelling, Respiratory: Negative for shortness of breath, cough, wheezing, and pleuritic chest pain, Abdomen/GI: Negative for abdominal pain, nausea, vomiting, diarrhea, and constipation, Back: Negative for injury and pain, : Negative for injury, bleeding, discharge, and swelling, MS/Extremity: Negative for injury and deformity, Skin: Negative for injury, rash, and discoloration, Neuro: Negative for headache, weakness, numbness, tingling, and seizure. 17:51 ENT: Positive for sore throat. 17:51 Cardiovascular: Positive for chest pain, of the chest. Exam: 17:51 Constitutional: This is a well developed, well nourished patient who is awake, alert, dorian and in no acute distress. Head/Face: Normocephalic, atraumatic. Eyes: Pupils equal round and reactive to light, extra-ocular motions intact. Lids and lashes normal. Conjunctiva and sclera are non-icteric and not injected. Cornea within normal limits. Periorbital areas with no swelling, redness, or edema. Neck: Trachea midline, no thyromegaly or masses palpated, and no cervical lymphadenopathy. Supple, full range of motion without nuchal rigidity, or vertebral point tenderness. No Meningismus. Chest/axilla: Normal chest wall appearance and motion. Nontender with no deformity. No lesions are appreciated. Cardiovascular: Regular rate and rhythm with a normal S1 and S2. No gallops, murmurs, or rubs. Normal PMI, no JVD. No pulse deficits. Respiratory: Lungs have equal breath sounds bilaterally, clear to auscultation and percussion. No rales, rhonchi or wheezes noted. No increased work of breathing, no retractions or nasal flaring. Abdomen/GI: Soft, non-tender, with normal bowel sounds. No distension or tympany. No guarding or rebound. No evidence of tenderness throughout. Back: No spinal tenderness. No costovertebral tenderness. Full range of motion. Female : Normal external genitalia. Skin: Warm, dry with normal turgor. Normal color with no rashes, no lesions, and no evidence of cellulitis. MS/ Extremity: Pulses equal, no cyanosis. Neurovascular intact. Full, normal range of motion. Neuro: Awake and alert, GCS 15, oriented to person, place, time, and situation. Cranial nerves II-XII grossly intact. Motor strength 5/5 in all extremities. Sensory grossly intact. Cerebellar exam normal. Normal gait. Psych: Awake, alert, with orientation to person, place and time. Behavior, mood, and affect are within normal limits. 17:51 ENT: Mouth: Lips: normal, moist, Oral mucosa: normal, pink and intact, moist, Gums: normal with healthy appearance, Tongue: is normal, drooling, is not appreciated, that is mild, Posterior pharynx: Airway: normal, no evidence of obstruction, Tonsils: are normal in appearance, Uvula: normal, midline, swelling, is not appreciated. Vital Signs: 16:40 BP 129 / 72; Pulse 73; Resp 18; Temp 98.1; Pulse Ox 98% ; Weight 78.93 kg; Height 5 ft. sv 6 in. (167.64 cm); 18:12 BP 140 / 81; Pulse 103; Resp 18; Pulse Ox 99% ; ah 19:15 BP 136 / 73; Pulse 64; Resp 18; Pulse Ox 100% ; ah 20:15 BP 152 / 89; Pulse 66; Resp 20; Pulse Ox 96% ; ah 21:15 BP 141 / 69; Pulse 61; Resp 21; Pulse Ox 97% ; ah 22:00 BP 152 / 70; Pulse 66; Resp 18; Pulse Ox 94% on R/A; wh 23:30 BP 150 / 72; Pulse 62; Resp 18; Pulse Ox 98% on R/A; 10/30 01:00 BP 151 / 69; Pulse 66; Resp 18; Pulse Ox 98% on R/A; 10/29 16:40 Body Mass Index 28.09 (78.93 kg, 167.64 cm) sv MDM: 10/29 16:55 Patient medically screened. [facility] 17:55 Data reviewed: vital signs, nurses notes, lab test result(s), EKG, radiologic studies. [facility] 17:55 Antibiotic administration: Not indicated. Differential diagnosis: CHF exacerbation, dorian abnormal EKG, acute pericarditis, anxiety, coronary artery disease costochondritis, esophagitis, hiatal hernia, peptic ulcer disease, stable angina, cervical strain, Neck Contusion pulmonary edema, Pulmonary Embolism Unstable Angina. HEART Score: History: Slightly Suspicious (0), ECG: Age: > or = 65 years (2), Risk Factors: 1 or 2 risk factors (1), [Hypertension] Troponin: < or = 1 x Normal Limit (0). The patient was given aspirin in the Emergency Department. The patient's deep vein thrombosis risk score was calculated as follows: Total Score: 0. This patient was found to be at low risk for a deep vein thrombosis by using the Well's assessment criteria Imm/Surg in last 4 wks (1.5 Pts) Total Score: 0-2 Pts- Low Risk. The patient's pulmonary embolism risk score was calculated as follows: patient has experienced immobilization or surgery in the last four weeks (1.5 Pts) Total Score: 0-2 points. This patient was found to be at low risk for a pulmonary embolism by using the Well's assessment criteria Total Score: 0-2 points. This patient was found to be at low risk for a pulmonary embolism by using the Well's assessment criteria. PRAVEENA Risk Score: TOTAL SCORE = 0. 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 20:51 Physician consultation: Roberto Mckeon MD was called at 20:50, regarding patient's dorian condition, heparin vs no heparin in light of pe's, hepairn unfractionated ok, not contraindicated. 21:01 ED course: pt pain is better controlled, heparin 5000/[address] rigoberto cha awaiting transfer to [facility], pt aware of diagnosis and plan to transfer. 21:51 ED course: pt going to [facility], no beds at [facility]. pt ok with plan. [facility] 10/29 17:48 Order name: Basic Metabolic Panel; Complete Time: 19:33 [facility] 10/29 17:48 Order name: CBC with Diff; Complete Time: 19:33 [facility] 10/29 17:48 Order name: LFT's; Complete Time: 19:33 [facility] 10/29 17:48 Order name: Magnesium; Complete Time: 19:33 [facility] 10/29 17:48 Order name: NT PRO-BNP; Complete Time: 19:33 [facility] 10/29 17:48 Order name: Troponin (emerg Dept Use Only); Complete Time: 19:33 [facility] 10/29 17:48 Order name: XRAY Chest (1 view); Complete Time: 19:33 [facility] 10/29 17:48 Order name: Lipase; Complete Time: 19:33 [facility] 10/29 17:48 Order name: CT Soft Tissue Neck W/contr; Complete Time: 19:33 [facility] 10/29 18:40 Order name: Urine Dipstick--Ancillary (enter results); Complete Time: 19:33 10/29 19:36 Order name: Blood Culture Adult (2) [facility] 10/29 21:01 Order name: Ptt, Activated [facility] 10/29 21:01 Order name: PT-INR [facility] 10/29 22:14 Order name: CREATININE WHOLE BLOOD [facility] 10/29 17:48 Order name: EKG; Complete Time: 17:49 [facility] 10/29 17:48 Order name: Cardiac monitoring; Complete Time: 18:36 [facility] 10/29 17:48 Order name: CT Chest For PE Angio; Complete Time: 19:33 [facility] 10/29 20:10 Order name: US Extremity Venous W Compression Rolly [facility] 10/29 17:48 Order name: EKG - Nurse/Tech; Complete Time: 18:36 [facility] 10/29 17:48 Order name: IV Saline Lock; Complete Time: 18:36 [facility] 10/29 17:48 Order name: Labs collected and sent; Complete Time: 18:36 [facility] 10/29 17:48 Order name: O2 Per Protocol; Complete Time: 18:36 [facility] 10/29 17:48 Order name: O2 Sat Monitoring; Complete Time: 18:36 [facility] 10/29 17:48 Order name: Urine Dipstick-Ancillary (obtain specimen); Complete Time: 18:35 [facility] Administered Medications: 18:27 Drug: Aspirin 81 mg Route: PO; 20:29 Follow up: Response: No adverse reaction 19:00 Drug: NS 0.9% 1000 ml Route: IV; Rate: 1 bolus; Site: right antecubital; 21:22 Follow up: Response: No adverse reaction; IV Status: Completed infusion 22:24 Follow up: Response: No adverse reaction; IV Status: Completed infusion 20:05 Drug: fentaNYL (PF) 25 mcg Route: IVP; Site: right antecubital; 21:21 Follow up: Response: No adverse reaction 20:05 Drug: Zofran (Ondansetron) 4 mg Route: IVP; Site: right antecubital; 21:21 Follow up: Response: No adverse reaction 20:50 Drug: fentaNYL (PF) 25 mcg Route: IVP; Site: right antecubital; 21:21 Follow up: Response: No adverse reaction 20:54 CANCELLED (Duplicate Order): Heparin (SD-Bolus No thrombolytic) - HEParin 60 units/kg dorian IVP once; Max 5000 units 21:00 Drug: levofloxacin 500 mg Volume: 100 ml; Route: IVPB; Infused Over: 60 mins; Site: right antecubital; 22:02 Follow up: Response: No adverse reaction; IV Status: Completed infusion 21:30 Drug: fentaNYL (PF) 25 mcg Route: IVP; Site: right antecubital; 22:02 Follow up: Response: No adverse reaction 22:23 Follow up: Response: No adverse reaction 21:35 Drug: Pepcid 20 mg Route: IVP; Site: left antecubital; 22:24 Follow up: Response: No adverse reaction 10/30 00:12 Drug: Heparin (SD-Bolus No thrombolytic) - HEParin 60 units/kg {Co-Signature: vc (Sanjuana Jeffrey RN).} Route: IVP; Site: right antecubital; 01:26 Follow up: Response: No adverse reaction 00:14 Drug: Heparin (SD Drip) 12 units/kg/hr - (HEParin 55497 units, D5W 500 ml) {Co-Signature: vc (Sanjuana Jeffrey RN).} Route: IV; Rate: calculated rate; Site: right antecubital; 01:25 Follow up: Response: No adverse reaction; IV Status: Infusion continued upon transfer 01:00 Drug: fentaNYL (PF) 25 mcg {Note: RASS 0.} Route: IVP; Site: right antecubital; 01:25 Follow up: Response: No adverse reaction; Pain is decreased; RASS: Alert and Calm (0) Disposition: 10/29 21:51 Critical Care:. [facility] Disposition: 10/30/19 19:48 Transfer ordered to [facility]. Diagnosis are Other chest pain, Chest pain on breathing, Pulmonary embolism - right lower and right middle lower, associated 5 cm pulmonary hemorrhage, Acute embolism and thrombosis of deep veins of lower extremity - left leg, superificial femoral. - Reason for transfer: Higher level of care. - Accepting physician is Niotaze. - Condition is Fair. - Problem is new. - Symptoms have improved. Critical care time excluding procedures: 21:51 Critical care time: Bedside Care: 30 minutes, Consultation: 15 minutes, Family dorian Intervention: 10 minutes. Total time: 55 minutes Signatures: Dispatcher [employer] Deedee Maharaj RN RN sv Anderson, Corey, MD MD cha Pena, Laura, RN RN lp1 Yamile, Gray, PA PA jr8 Tee Benitez Sanjuana Jeffrey RN RN vc Harris, Amy, RN RN Sanjuana Jeffrey RN, vc Corrections: (The following items were deleted from the chart) 20:54 20:51 Heparin (SD-Bolus No thrombolytic) - HEParin 60 units/kg IVP once; Max 5000 units dorian ordered. [facility] 21:05 19:48 10/30/2019 19:[address] [facility]. [facility] Diagnosis is Other chest pain; Chest pain on breathing; Pulmonary embolism - right lower and right middle lower, associated 5 cm pulmonary hemorrhage. Reason for transfer: Higher level of care. Accepting physician is to [facility]. Condition is Fair. Problem is new. Symptoms have improved. [facility] 10/30 01:26 10/29 21:05 10/30/2019 19:[address] [facility]. Diagnosis is Other chest pain; Chest pain on breathing; Pulmonary embolism - right lower and right middle lower, associated 5 cm pulmonary hemorrhage; Acute embolism and thrombosis of deep veins of lower extremity - left leg, superificial femoral. Reason for transfer: Higher level of care. Accepting physician is to [facility]. Condition is Fair. Problem is new. Symptoms have improved. [facility] 10/30 02:07 01:26 10/30/2019 19:[address] [facility]. jr8 Diagnosis is Other chest pain; Chest pain on breathing; Pulmonary embolism - right lower and right middle lower, associated 5 cm pulmonary hemorrhage; Acute embolism and thrombosis of deep veins of lower extremity - left leg, superificial femoral. Reason for transfer: Higher level of care. Accepting physician is to [facility]. Condition is Fair. Problem is new. Symptoms have improved. 02:09 02:07 10/30/2019 19:48 Transfer ordered to [facility]. Diagnosis is Other lp1 chest pain; Chest pain on breathing; Pulmonary embolism - right lower and right middle lower, associated 5 cm pulmonary hemorrhage; Acute embolism and thrombosis of deep veins of lower extremity - left leg, superificial femoral. Reason for transfer: Higher level of care. Accepting physician is Agus. Condition is Fair. Problem is new. Symptoms have improved. jr8
[2019-10-30] MEDS ORDERED: FENTANYL CITR 100 MCG/2 ML ONE ×3 (20:06→21:33)
[2019-10-30] MEDS ORDERED: ONDANSETRON 4 MG/2 ML VIAL ONE (20:06)
[2019-10-30] MEDS ORDERED: Levofloxacin500mg IV 500 MG/100 ML BAG IV ONE (20:47)
--- NOTE | 2019-10-30 21:19 | RAD REPORT ---
EXAM DESCRIPTION: US - Extrem Venous W Compress Rolly - 10/30/2019 9:06 pm CLINICAL HISTORY: Pain;Swelling COMPARISON: None. TECHNIQUE: Real-time sonographic evaluation of the bilateral lower extremity common femoral, superfi cial femoral, popliteal and posterior tibial veins was performed. FINDINGS: Normal compressibility, flow augmentation, phasic flow and spontaneous flow are identified in the right lower extremity common femoral, superficial femoral, popliteal and posterior tibial vei ns. No intraluminal filling defects seen. Normal compressibility seen in the left common femoral vein. Thrombus is present in the left superfic ial femoral vein from proximal to distal. Left posterior tibial and popliteal vein show good compress ion. IMPRESSION: Acute deep venous thrombosis in the left femoral vein.
[2019-10-30] MEDS ORDERED: FAMOTIDINE 20 MG/2 ML VIAL IV ONE (21:33)
[2019-10-30] MEDS ORDERED: LACTULOSE 20 GM/30 ML UCUP ONE (21:49)
[2019-10-30 23:08] LABS: Protime INR 0.94
[2019-10-30] MEDS ORDERED: HEPARIN/D5W 25,000 UNIT/500 ML BAG IV ONE (23:59)
[2019-10-30] MEDS ORDERED: HEPARIN 5000 UNIT/ML 1 ML VIAL ONE (23:59)
[2019-10-31] MEDS ORDERED: FENTANYL CITR 100 MCG/2 ML ONE (01:01)
[2019-10-31 01:48] VITALS: TEMP 98.1
[2019-10-31 02:36] VITALS: BP 152/70; O2SAT 94
--- NOTE | 2019-11-01 07:20 | EKG ---
Test Date: 2019-10-30 Test Time: 18:09:03 Restaurant Line Server: SRINI MEASUREMENT RESULTS: Intervals: Rate: 60 MN: 168 QRSD: 80 QT: 410 QTc: 410 [place]: P: 20 MN: 168 QRS: 25 T: 24 INTERPRETIVE STATEMENTS: Normal sinus rhythm Normal ECG Compared to ECG 01/26/2018 10:26:14 No significant changes Electronically Signed On 11-01-19 07:16:11 CDT by Miguelito Hidalgo
== END 2019-10-31 02:09 | disposition short-term general hospital (02) ==
LOC: ER 16:33
DX: I26.99 Other pulmonary embolism without acute cor pulmonale (principal); I82.412 Acute embolism and thrombosis of left femoral vein; R07.1 Chest pain on breathing; I10 Essential (primary) hypertension; Z88.5 Allergy status to narcotic agent; Z88.8 Allergy status to other drugs, medicaments and biological substances
CPT/HCPCS: 96365; 96367; 96361; 93005; 87040 ×2; 85025; 80048; 36415; 83735; 85610; 82565; 80076; 85730; 81003; 84484; 83690; 83880; 70491; 71275; 71045; 93970; 96375; 99285; Q9967; J1644; J3010 ×4; J7030; J2405

== ENCOUNTER 2019-11-02 09:46 | Emergency (ER) | payer OTHER ==
[2019-11-02 11:02] LABS: Absolute Lymphocytes (CBC) 1.5 K/uL (0.7-4.9); Basophils % 1.3 % (0-1.3); Hematocrit 36.3 % (36.0-45.0); Lymphocytes % 18.6 % (15.3-44.8); MPV 8.8 fL (7.6-11.3); RBC Red Blood Cell Count 3.94 M/uL (3.86-4.86)
[2019-11-02 11:06] LABS: Arterial Blood Carboxyhemoglob 1.5 % (0-1.5); Blood Gas Oxyhemoglobin 93.2 % (94-97); Blood O2 Saturation 95.2 % (92-98.5)
[2019-11-02 11:07] LABS: Protime INR 1.49
[2019-11-02 11:22] LABS: ALT/SGPT 15 U/L (12-78); AST/SGOT 15 U/L (15-37); Albumin 3.3 g/dL (3.4-5.0); Alkaline Phosphatase 110 U/L (45-117); BUN Blood Urea Nitrogen 17 mg/dL (7-18); Bicarbonate 26 mmol/L (21-32); Bilirubin Direct < 0.1 mg/dL (0-0.2); Bilirubin Total 0.2 mg/dL (0.2-1.0); Glucose Level 118 mg/dL (74-106); NT PRO-BNP 197 pg/mL (<125); Potassium 3.9 mmol/L (3.5-5.1); Protein, Total 6.9 g/dL (6.4-8.2); Sodium Level 141 mmol/L (136-145); Troponin (Emerg Dept Use Only) < 0.02 ng/mL (0.0-0.045)
--- NOTE | 2019-11-02 11:27 | RAD REPORT ---
EXAM DESCRIPTION: RAD - Chest Single View - 11/02/2019 11:16 am CLINICAL HISTORY: shortness of breath, history of pulmonary embolism COMPARISON: CT chest October 29, portable chest October 29 TECHNIQUE: AP portable chest image was obtained 11/02/2019 11:16 am . FINDINGS: The right midlung field airspace opacification, believed to be pulmonary hemorrhage relate d to known pulmonary embolism, has not clearly changed since October 29. There is been no progression. Elsewhere in the right lung field there is no new or progressive lung parenchymal process. Interstiti al pattern is fractionally improved. Trachea is midline. Heart and vasculature are normal. No measura ble pleural effusion and no pneumothorax. No acute bony abnormality seen. No acute aortic findings dove spected. IMPRESSION: Right midlung field opacification, believed to be pulmonary hemorrhage rather than pneum onia due to the right-side pulmonary embolism, has not change from October 29. No new or progressive finding.
--- OUTSIDE RECORDS SUMMARY | 2019-11-02 12:22 | XMS REPORT | Clinical Summary ---
:1955 Author Organization [facility] Address [address] [place] [address] Care Team Providers Name Role Phone Nayla Alonzo MD Primary Care Provider Allergies Not on File Medications Not on file Active Problems Not on file Encounters Date Type Specialty Care Team Description 10/30/2019 Telephone Critical Care Medicine Jan Fountain MD 10/30/2019 Hospital Encounter after 11/01/2018 Social History Tobacco Use Types Packs/Day Years Used Date Never Assessed Sex Assigned at Date Recorded Not on file Job Start Date Occupation Industry Not on file Not on file Not on file Travel History Travel Start Travel End No recent travel history available. Last Filed Vital Signs Not on file Plan of Treatment Not on file Results Not on fileafter 11/01/2018 Insurance Payer Benefit Plan / Group Subscriber ID Type Phone A ddress [employer] - [employer] CARE CIGNA HMO/POS/OPEN ACCESS xxxxxxxxx HMO/POS [phone] [id number] (Work)
--- OUTSIDE RECORDS SUMMARY | 2019-11-02 12:22 | XMS REPORT | Clinical Summary ---
:1955 Author Organization [facility] Address [address] [place] [address] Care Team Providers Name Role Phone Nayla [...] Bedtime, # 180 tab, 3 Refill(s), Pharmacy: [facility]/pharmacy #[id number] buprenorphine (BELBUCA) 150 0 10/20/19 Discontinued 150 [...] exami nation following surgery (Primary Dx); MD Chel S/P lumbar lami nectomy 10/19/2019 Travel 09/26/2019 [...] 09/11/2019 Travel 09/08/2019 Telephone Radiology Torrie Cobb PILLAR MAN 09/06/2019 Hospital Encounter Radiology Triston Noel Thoracic [...] Lumbar stenosis with neurogenic claudication (Primary Dx); DIRECTOR OF SCIENTIFIC RESEARCH Radiculopathy o f thoracic region 08/22/2019 Orders Only Neurosurgery Wanda Cotter, Thoracic radicu lopathy (Primary Dx); DIRECTOR OF SCIENTIFIC RESEARCH Spinal stenosis of lumbar region, unspecified whether [...] 08/07/2019 Travel 08/02/2019 Abstract Neurosurgery Wanda Cotter, DIRECTOR OF SCIENTIFIC RESEARCH 07/27/2019 Travel 07/04/2019 Office Visit Cardiology Ibis Torres Essential hyper tension (Primary Dx); MD Danitza Claudication (H CC) 07/04/2019 Orders Only Triston Brown Lumbar radiculo tr MD Chel (Primary Dx) 06/06/2019 Lab Lab Ibis Torres PAD (peripheral R., MD artery disease) (HCC) 06/06/2019 Office Visit Cardiology Ibis Torres PAD (peripheral artery disease) (HCC) (Primary Dx); MD Danitza Bilateral carot id artery stenosis after 11/01/2018 Family History Medical History Relation Name Comments [...] INFLUENZA VACCINE 12/02/2019 Implants Implanted Type Area Mental Health Assistant Device Shelf Model / Identifier Expiration Serial / Date Lot System Spine Selnt For Dural Selng Exact 5ml Duraseal - [id number] Cardiovascular N/A: [employer] [id number] / Implanted: Qty: 1 on 09/19/2019 by Triston Noel MD at [facility] Implants N/A [employer] / NEURO [id number] Procedures Procedure Name Priority Date/Time Associated Diagnosis [...] procedure are i n the results section. HI AN ELECTIVE Routine 09/19/2019 3:51 Results f [...] (peripheral Res ults for this BILATERAL AM BOOK PUBLISHER artery disease) ([facility]) proced ure are in the results section. CT ANGIOGRAM Routine 06/06/2019 5:02 PAD (peripheral Results for this ABDOMINAL AORTA AND PM BOOK PUBLISHER artery disease) ([facility]) procedure are in BILATERAL ILIOFEMORAL the re sults RUNOFF W WO CONTRAST section . ESTIMATED GFR Routine 06/06/2019 3:21 Results fo r this PM BOOK PUBLISHER procedure are i n the results section. POC CREATININE Routine 06/06/2019 3:21 Results f or this PM BOOK PUBLISHER procedure are i n the results section. COPY RECEIVED FROM: Routine 06/06/2019 11:02 Resu lts for this AM BOOK PUBLISHER procedure are i n the results section. COPY(IES) SENT TO: Routine 06/06/2019 11:02 Resul ts for this AM BOOK PUBLISHER procedure are i n the results section. BASIC METABOLIC PANEL Routine 06/06/2019 11:02 PAD (peripheral Results for this AM BOOK PUBLISHER artery disease) ([facility]) proced ure are in the results section. ECG 12-LEAD Routine 06/06/2019 9:55 Bilateral carotid Result s for this AM BOOK PUBLISHER artery stenosis procedure ar e in the results section. MRI SPINE EXTERNAL Routine 03/06/2019 3:47 Resul ts for this STUDY PM BOOK PUBLISHER procedure are i n the results section. after 11/01/2018 Results Urine culture (09/20/2019 7:30 PM CDT) Pathologist Sig nature Urine culture SEE COMMENTComment: [facility] Bacteriuria screen HOSPITAL negative. Specimen Performing Organization Address City/State/Zipcode Phone Number [facility] DEPARTMENT OF PATHOLOGY AND [address] [place], [place] [address] GENOMIC MEDICINE [facility] [address] [place] [address] Cervical Spine Wo Contrast (09/20/2019 6:46 [...] acute fractures of the cervical spine . [facility] Procedure Note Interface, Radiology Results Incoming - [...] acute fractures of the cervical spine . [facility] Performing Organization Address City/State/Zipcode Phone Number [facility] [address] [place] [address] CT Head Wo Contrast (09/20/2019 6:45 PM [...] IMPRESSION: No acute intracranial abnormality identi fied. [id number] Procedure Note Interface, Radiology Results Incoming - [...] IMPRESSION: No acute intracranial abnormality identi fied. [id number] Performing Organization Address City/State/Zipcode Phone Number [facility] [address] [place] [address] CT Lumbar Spine Wo Contrast (09/20/2019 6:43 [...] t L5-S1 bilaterally. [id number] Performing Organization Address City/[facility]/Zipcode Phone Number [facility] [address] [place] [address] CBC with platelet and differential (09/20/2019 5:36 PM CDT)Only the most recent of2 resultswithin the time period is included. WBC 13.52 (H) 4.50 - 11.00 [facility] k/uL HOSPITAL RBC 4.10 (L) 4.20 - 5.50 [facility] m/uL HOSPITAL HGB 12.9 12.0 - 16.0 [facility] g/dL HOSPITAL HCT 39.3 37.0 - 47.0 % [facility] MCV 95.9 82.0 - 100.0 [facility] MCH 31.5 27.0 - 34.0 pg [facility] MCHC 32.8 31.0 - 37.0 [facility] gdL [facility] RDW - SD 42.5 37.0 - 55.0 fL [facility] MPV 10.4 8.8 - 13.2 fL [facility] Platelet count 229 150 - 400 k/uL [facility] Nucleated RBC 0.00 /100 WBC [facility] Neutrophils 78.5 (H) 39.0 - 69.0 % [facility] Lymphocytes 11.5 (L) 25.0 - 45.0 % [facility] Monocytes 9.4 0.0 - 10.0 % [facility] Eosinophils 0.0 0.0 - 5.0 % [facility] Basophils 0.2 0.0 - 1.0 % [facility] Immature granulocytes 0.4Comment: 0.0 - 1.0 % [facility] "Immature HOSPITAL granulocytes" (promyelocytes , myelocytes, metamyelocytes ) Specimen Blood Performing Organization Address City/[facility]/Zipcode Phone Number [facility] DEPARTMENT OF PATHOLOGY AND [address] [place] [phone] GENOMIC MEDICINE [address] [address] Ammonia level (09/20/2019 5:36 PM CDT) Pathologist Sig nature Ammonia 19 11 - 51 umol/L [facility] Specimen Blood Performing Organization Address City/[facility]/Zipcode Phone Number [facility] DEPARTMENT OF PATHOLOGY AND [address] [place] [address] [id number] [place] [address] Urinalysis screen and microscopy, with reflex to culture (09/20/2019 5:30 PM CDT) Specimen site Clean catch [facility] Color, UA Straw [facility] Appearance, UA Clear [facility] Specific gravity, UA 1.003 1.001 - 1.035 [facility] pH, UA 7.0 5.0 - 8.5 [facility] Protein, UA Negative Negative [facility] Glucose, UA Negative Negative [facility] Ketones, UA Negative Negative [facility] Bilirubin, UA Negative Negative [facility] Blood, UA Negative Negative [facility] Nitrite, UA Negative Negative [facility] Urobilinogen, UA <2.0 <2.0 [facility] Leukocyte esterase, Negative Negative [facility] Epithelial cells, UA 5 /HPF [facility] WBC, UA 1 0 - 4 /HPF [facility] RBC, UA 1 0 - 5 /HPF [facility] Bacteria, UA Few None seen [facility] Yeast, UA None seen [facility] Yeast with None seen [facility] pseudohyphae, HOSPITAL Specimen Urine Performing Organization Address City/State/Zipcode Phone Number [facility] DEPARTMENT OF PATHOLOGY AND [address] [place], [place] [phone] [address] [address] Urine drugs of abuse screen (09/20/2019 5:30 PM CDT) Amphetamine screen, Negative [place] urine [facility] Barbiturate screen, Negative [place] urine [facility] Benzodiazepine Negative [place] screen, urine [facility] Cocaine screen, urine Negative [facility] Methadone metabolite Negative [place] (EDDP), urine [facility] Opiates screen, urine Negative [facility] Oxycodone screen, Positive (A) [place] urine [facility] Phencyclidine screen, Negative [place] urine [facility] Tricyclic screen, Negative [place] urine [facility] Cannabinoid screen, Negative [place] urine Comment: [facility] Drug screen minimum concentration of detectability HOSPITAL [...] Urine Performing Organization Address City/State/Zipcode Phone Number [facility] DEPARTMENT OF PATHOLOGY AND [address] [phone] [address] Estimated GFR (09/20/2019 5:20 PM CDT)Only the [...] Specimen Performing Organization Address City/State/Zipcode Phone Number [facility] DEPARTMENT OF PATHOLOGY AND [address] [address] Troponin (09/20/2019 5:20 PM CDT) Troponin 0.013 [...] 0.020 ng/mL Specimen Blood Performing Organization Address City/[facility] Phone Number [facility] DEPARTMENT OF PATHOLOGY AND [address] [place], [place] [phone] [address] [place] [address] Partial thromboplastin time, activated (09/20/2019 5:20 PM CDT) [facility] PTT 24.7 23.0 - 36.0 [facility] Comment: [place] [facility] PTT therapeutic range for unfractionated heparin is 61.0-112.0 seconds which corresponds to Anti-Xa 0.3-0.7 U/ml. Specimen Blood Performing Organization Address [facility] Phone Number [facility] DEPARTMENT OF PATHOLOGY AND [address] [place] [address] [phone] [address] Prothrombin time with INR (09/20/2019 5:20 PM CDT) [facility] Prothrombin time 13.3 11.5 - 14.5 [facility] INR 1.0 [place] Comment: [facility] International Normalized Ratio (INR) is a therapeu [facility] HOSPITAL monitoring tool for patients who are stable on oral anticoagulant therapy. An INR of 2.0-3.0 is suggested for deep vein thrombosis/pulmonary embolism. Specimen Blood Performing Organization Address City/[facility] Phone Number [facility] DEPARTMENT OF PATHOLOGY AND [address] [place] [address] [phone] [address] Phosphorus level (09/20/2019 5:20 PM CDT) Pathologist Sig nature Phosphorus 2.6 2.4 - 4.5 mg/dL [facility] Specimen Blood Performing Organization Address City/[facility] Phone Number [facility] DEPARTMENT OF PATHOLOGY AND [address] [place] [address] [phone] [address] Magnesium level (09/20/2019 5:20 PM CDT) Pathologist Sig nature Magnesium 1.8 1.6 - 2.4 mg/dL [facility] Specimen Blood Performing Organization Address City/[facility] Phone Number [facility] DEPARTMENT OF PATHOLOGY AND [address] [place] [address] [phone] [address] Ionized calcium (09/20/2019 5:20 PM CDT) Pathologist Sig [facility] pH 7.52 [facility] Ionized calcium 1.13 1.11 - 1.32 mmol/L [facility] Specimen Blood Performing Organization Address [facility] Phone Number [facility] DEPARTMENT OF PATHOLOGY AND [address] [place] [address] [phone] [address] Basic metabolic panel (09/20/2019 5:20 PM CDT)Only the most recent of2 results within the time period is included. Pathologist Sig nature Sodium 145 135 - 148 mEq/L [facility] Potassium 3.5 3.5 - 5.0 mEq/L [facility] Chloride 105 98 - 112 mEq/L [facility] CO2 23 (L) 24 - 31 mEq/L [facility] Anion gap 17@ANIO (H) 7 - 15 mEq/L [facility] BUN 9 8 - 23 mg/dL [facility] Creatinine 0.76 0.50 - 0.90 mg/dL [facility] Glucose 142 (H) 65 - 99 mg/dL [facility] Calcium 9.5 8.8 - 10.2 mg/dL [facility] Specimen Blood Performing Organization Address City/[facility] Phone Number [facility] DEPARTMENT OF PATHOLOGY AND [address] [place] [address] [phone] [address] ECG 12 lead (09/20/2019 4:27 PM CDT)Only the most recent of2 resultswithin the time period is included. Pathologist Sig nature Ventricular rate 88 [facility] Atrial rate 88 [facility] HI interval 164 [facility] QRSD interval 90 [...] available. Performing Organization Address City/State/Zipcode Phone Number [facility] MUSE [address] [place] [address] POC glucose (09/20/2019 4:25 PM CDT) Pathologist Sig nature POC glucose 133 (H) 65 - 99 mg/dL [facility] Comment: HOSPITAL Mold Breaker Name: Zion Crump Device ID: [id number] Chartable: [facility] Notified RN Specimen Blood Performing Organization Address City/State/Zipcode Phone Number [facility] DEPARTMENT OF PATHOLOGY AND [address] [place] [phone] GENOMIC MEDICINE [address] [address] Airway (09/19/2019 3:59 PM CDT) Narrative Performed [...] aspect of the L4 spin ous process. [id number] Procedure Note Hm Interface, Radiology Results Incoming [...] inferior aspect of the L4 spinous process. [id number] Performing Organization Address City/[facility]/Zipcode Phone Number [facility] [address] [place] [address] Surgical pathology request (09/19/2019 8:26 AM CDT) [facility] DEPARTMENT OF PATHOLOGY AND GENOMIC MEDICINE Surgical pathology See link below [facility] DEPARTMENT OF report for PDF Lab PATHOLOGY AND Report GENOMIC MEDICINE Result status This is Final [facility] DEPARTMENT OF Report for PATHOLOGY AND [id number] GENOMIC MEDICINE Specimen Performing Organization Address [facility] Phone Number [facility] DEPARTMENT OF PATHOLOGY AND [address] [place] [phone] GENOMIC MEDICINE COVID BioRef (NCOVB) (09/11/2019 12:19 PM CDT) COVID BioRef Not Detected Not Detected [facility] (NCOVB) Comment: Source Nasopharyngeal Swab Testing performed at [facility] [address] [place] [address] NOTE: Please consider re-collection of a new specimen, if clinically indicated. NOTE: The COVID-19 assay has been cleared by the U.S. Food and Drug Administration under the Emergency Use Authorization ( EUA). [employer] is designated as a high complexity labora [...] under the Emergency Use Authorization ( EUA). [facility] is designated as a high complexity labora tory by the Clinical Laboratory Improvement Amendments of 1988(CLIA) and is qualified to perform this test. ASSAY INFORMATION: Real Time RT-PCR (Reported 2019 12:29) Specimen Nasopharyngeal Performing Organization Address City/[facility]/Zipcode Phone Number [facility] DEPARTMENT OF PATHOLOGY [address] [place] [address] AND [employer] [facility] [address] [address] Comprehensive metabolic panel (09/11/2019 12:11 PM CDT) Sodium 142 135 - 148 [facility] mEq/L [facility] Potassium 4.0 3.5 - 5.0 [facility] mEq/L [facility] Chloride 100 98 - 112 [facility] mEq/L [facility] CO2 26 24 - 31 mEq/L [facility] Anion gap 16@ANIO (H) 7 - 15 mEq/L [facility] BUN 26 (H) 8 - 23 mg/dL [facility] Creatinine 0.90 0.50 - 0.90 [facility] mg/dL HOSPITAL Glucose 111 (H) 65 - 99 mg/dL [facility] Calcium 10.5 (H) 8.8 - 10.2 [facility] mg/dL [facility] Protein 7.6 6.3 - 8.3 [facility] Comment: g/dL [facility] [place] 4.6-7.0 g/dL 1 week 4.4-7.6 g/dL 7 months-1year 5.1-7.3 g/dL 1-2 years 5.6-7.5 g/dL >3 years 6.0-8.0 g/dL 18-150 6.3-8.3 g/dL Albumin 4.0 3.5 - 5.0 [facility] g/dL HOSPITAL A/G ratio 1.1 0.7 - 3.8 [facility] Alkaline phosphatase 82 35 - 104 U/L [facility] AST 20 10 - 35 U/L [facility] ALT 17 5 - 50 U/L [facility] Total bilirubin 0.3 0.0 - 1.2 [facility] mg/dL HOSPITAL Specimen Blood Performing Organization Address City/[facility]/Zipcode Phone Number [facility] DEPARTMENT OF PATHOLOGY AND [address] [place], [place] [address] [place] [address] CT Post Myelogram Thoracic (09/06/2019 12:33 PM [...] ensure appropriate moderation of exposure. Automated dose waste management recycling technician nology is applied to adjust radiation exposure [...] for right C6 radiculopathy is recommended. [id number] Procedure Note Interface, Radiology Results [facility] - 09/06/2019 12:44 PM CDT EXAMINATION: CT [...] for right C6 radiculopathy is recommended. [id number] Performing Organization Address City/State/Zipcode Phone Number [facility] [address] [place] [address] CT Post Myelogram Lumbar (09/06/2019 12:32 PM [...] ensure appropriate moderation of exposure. Automated dose waste management recycling technician nology is applied to adjust radiation exposure [...] ingement on the right L3 nerve root. [id number] Procedure Note Hm Interface, Radiology Results - [...] on the right L3 nerve root. [id number] Performing Organization Address City/State/Zipcode Phone Number [facility] [address] [place] [address] IR Myelogram 2+Reg Incl Inj W S&I [...] of the left C6 root sleeve . [id number] Procedure Note Interface, Radiology Results Incoming - [...] of the left C6 root sleeve . [id number] Performing Organization Address City/State/Zipcode Phone Number [facility] [address] [place] [address] XR Lumbar Spine Complete W Flex and [...] IMPRESSION: Degenerative changes without acute abnor mality. [id number] Dictated and approved by radiology resid ent/fellow: Cari Thomson M.D. I, Marilyn Charles MD, personally reviewed the images and resident's/fellow's findings and agree with the final report. Procedure Note [facility], Radiology Results Incoming - 08/14/2019 11:37 AM [...] IMPRESSION: Degenerative changes without acute abnor mality. [id number] Dictated and approved by radiology resid ent/fellow: Cari Thomson M.D. I, Marilyn Charles MD, personally review ed the images and resident's/fellow's findings and agree with the final report. Performing Organization Address City/State/Zipcode Phone Number [facility] [address] [place] [address] XR Spine Scoliosos 2-3 Views (08/14/2019 11:06 AM CDT) Specimen Narrative Performed At EXAMINATION: XR SPINE SCOLIOSIS 2-3 VIEW S [facility] CLINICAL HISTORY: M54.16 Radiculopathy lumbar region, radiculopathy [...] and s crew fixation and interbody graft. [id number] Procedure Note Interface, Radiology Results Incoming - [...] plate and screw fixation and interbody graft. [id number] Performing Organization Address City/State/Zipcode Phone Number [facility] [address] [place] [address] Us carotid duplex (06/13/2019 10:00 AM BOOK PUBLISHER) Specimen Narrative Performed At [facility] Carotid Tonya ry Ultrasound Report Pat.Name: HALEY PORTER Pat.ID: [id number] .Date: 06/13/2019 Refer.MD: IBIS TORRES MD Exam Time: 9:13:00 AM Study Type:C arotid Age: 8 1955,63Y Sex: FEMALE Sonogrphr: Cyn Montoya RVT Pat. Stat.:[facility]p [facility] Room: [facility] ol: SD, CPT - 4: 13784 Echo Shira nt ID:[id number] Order ID: [id number] Reason for Study:Carotid artery disease, Hx of [...] Radiology Results In - 2019 6:01 AM BOOK PUBLISHER [facility] Carotid Artery Ultras ound Report Pat.Name: HALEY PORTER Pat.I D: [id number] .Date: 06/13/2019 Refer .MD: IBIS TORRES MD Exam Time: 9:13:00 AM Study Type:Carotid Age: 8 1955,63Y Sex: FEMALE Sonogrphr: Cyn Montoya RVT Pat. Stat.:Outpatient Room: [facility] Vol: SD, CPT - 4: 65788 Echo Event ID:[id number] Order ID: [id number] Reason for Study:Carotid artery disease, Hx of [...] Organization Address City/State/Zipcode Phone Number [facility] [address] [place] [address] CTA Abdominal Aorta And Bilateral Iliofemoral Runoff W Wo Contrast (06/06/2019 5:02 PM BOOK PUBLISHER) Specimen Narrative Performed At EXAMINATION: CT ANGIOGRAM [...] runoff of the bilate ral lower extremities. [id number] Procedure Note Hm Interface, Radiology Results Incoming - 06/06/2019 5:24 PM BOOK PUBLISHER EXAMINATION: CT ANGIOGRAM ABDOMINAL AORTA AND BILATERAL [...] runoff of the bilate ral lower extremities. [id number] Performing Organization Address City/[facility]/Zipcode Phone Number [facility] [address] [place] [address] POC creatinine (06/06/2019 3:21 PM BOOK PUBLISHER) Pathologist [facility] POC creatinine 0.8 0.5 - 0.9 [facility] Comment: mg/dl HOSPITAL Meter ID: [id number] Mold Breaker ID: Bayron Valencia Specimen Blood - Antecubital, left Performing Organization Address City/[facility]/Zipcode Phone Number [facility] DEPARTMENT OF PATHOLOGY AND [address] [place], [place] [address] GENOMIC MEDICINE [facility] [address] [place] [address] COPY RECEIVED FROM: (06/06/2019 11:02 AM BOOK PUBLISHER) Pathologist Sig nature Copy received from: [facility] Comment: [address] [facility] [address] [place] [address] Specimen Performing Organization Address City/[facility]/Zipcode Phone Number [facility] COPY(IES) SENT TO: (06/06/2019 11:02 AM BOOK PUBLISHER) Pathologist Sig nature Copies/mL [facility] Comment: [address] [facility] [address] [place] [address] Specimen Performing Organization Address City/[facility]/Zipcode Phone Number [facility] MRI Spine External Study (03/06/2019 3:47 PM BOOK PUBLISHER) Specimen Narrative Performed At This exam was not acquired at a Methodis t facility and has not been [facility] interpreted by a [facility] Provider. T he exam was imported into our imaging system. Performing Organization Address City/State/Zipcode Phone Number [facility] [address] [place] [address] after 11/01/2018 Insurance Payer Benefit Plan / Subscriber ID Effective Phone Address T ype Group Dates MEDICARE MEDICARE PART A xxxxxxxxxxx 2018-Pres [place], [place] Medicare AND B ent COMMERCIAL MISC MISC COMMERCIAL xxxxxxxxx 2009-[facility] Commercial ent [phone] [id number] (Work) Advance Directives For more information, please contact: [phone] Type Date Recorded Patient Kinder Teacher Explanati on Advance Directives, Living Will and Medical Power of Mica Inspector
--- OUTSIDE RECORDS SUMMARY | 2019-11-02 12:25 | XMS REPORT | Continuity of Care Document ---
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 [address] [place] [address] Unspecified 05/09/2017 abdominal pain 018 Radha and ABDOMINAL PAIN/LOSS Active [place] [address] [place] SURGERY THIS Active Melanie duque MORNING, PROBLEMS 013 [place] dical BREATHING Center POST FOLLOW UP Active [address] BDDC-WEIGHT LOSS Active [address] 783.21 - ABNORMAL Active OPID LOSS O 576.0 - 013 Radha and POSTCHO ABD PAIN Active [address] Gastroesophageal Resolved Problem 08/06/2019 Mi elizabeth reflux disease Neuro , (disorder) [facility] 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 Cervical Active Problem 08/06/2019 [facility] spondylosis Neuro (disorder) Acid reflux Resolved Problem 01/25/2013 [facility] [place] HTN - Hypertension Resolved Problem 01/25/2013 [facility] Ulcer of lower Active Problem 08/06/2019 [facility] her extremity Neuro (disorder) ABDMNAL PAIN UNSPCF Active [facility] Medications Medication Details Route Status Patient Ordering Order Source Instructions Provider Date Aspirin 81 MG 81 mg = 1 tab, Active mckenzie Enteric Coated PO, Daily, # 2020 Neur o Tablet 90 tab, 3 Refill(s) cefdinir 300 MG 300 mg = 1 Active ch er Oral Capsule cap, PO, BID, 2019 Neuro # 20 cap, 0 Refill(s) Estrogens, 0.3 mg = 1 Active cher Conjugated tab, PO, 2019 Neuro (FCI) 0.3 MG Daily, # 30 Oral Tablet tab, 0 [Premarin] Refill(s) Acetaminophen 1 tab, PO, Active cher 325 MG / Q6H, 0 2019 Neuro [...] Neuro tablet 180 tab, 3 Refill(s), Pharmacy: [facility]/pharmacy #[id number] Acetaminophen 1 tab, PO, Active 300 MG / TID, PRN Pain, 2017 [facility] Codeine X 4 day, # 12 Phosphate 30 MG tab, 0 Oral Tablet Refill(s) [Tylenol with Codeine #3] acetaminophen-c Notes: Do not Inactive 05/07/ M H odeine #3 exceed 4gm/day 2017 [facility] d of acetaminophen. 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[employer] Saline Flush Notes: (Same Inactive 0.9% as: BD 2017 [facility] Posiflush) hyoscyamine 0.125 mg, 1 PO No Longer Sajja Mnoster as tab, Route: Active 2012 Medical PO, Drug form: [place] TAB, QID-Before Meals, Dosing Weight 65, kg, Start date: 01/23/13 11:30:00, Duration: 30 day, Stop date: 02/22/13 7:30:00 tramadol 50 mg 50 mg, 1 tab, PO Active [facility] [place] oral tablet PO, Q8H, PRN, 2012 Medica l 30 tab, as Center needed for pain, Substitution Allowed, TAB tramadol 50 mg 50 mg, 1 tab, PO No Longer [facility] [place] oral tablet PO, Q8H, PRN, Active 2012 Medica l 10 tab, as Center needed for pain, Substitution Allowed, TAB Mckean 10/325 1 tab, Route: PO No Longer [facility] [place] oral tablet PO, Drug Form: Active 2012 Medic al TAB, Dosing Center Weight 65, kg, Q6H, PRN Pain, Start date: 01/22/13 21:22:00, Duration: 30 day, Stop date: 02/21/13 21:21:00 Omnipaque 100 mL, Route: IVP No Longer [facility] [place] 350mg/ml IVP, Drug Active 2012 Medical Form: SOL, [place] Dosing Weight 65, kg, ONCALL, STAT, Start date: 01/22/13 13:12:00, Duration: 1 doses or times, Dose = 2.2ml/kg, Max dose = 100ml -- "To be infused by Radiology Staff ONLY"Dose = 2.2ml/kg, Max dose = 100ml -- "To be infused by Radiology Staff ONLY" Dilaudid 0.5 mg, 0.25 IV No Longer [facility] [place] mL, Route: IV, Active 2012 Medical Drug form: Center INJ, Q4H, Dosing Weight 65, kg, PRN as needed for pain, Start date: 01/22/13 12:17:00, Duration: 30 day, Stop date: 02/21/13 12:16:00 Mckean 10/325 1 tab, Route: PO No Longer [facility] [place] oral tablet PO, Drug Form: Active 2012 Medic al TAB, Dosing Center Weight 65, kg, Q4H, PRN Pain, NOW, Start date: 01/22/13 2:14:00, Duration: 30 day, Stop date: 02/21/13 2:13:00 Remeron 15 mg, 1 tab, PO No Longer [facility] Route: PO, Active 2012 Medical Drug form: [place] TAB, Bedtime, Dosing Weight 65, kg, Start date: 01/21/13 21:00:00, Duration: 30 day, Stop date: 02/19/13 21:00:00 hyoscyamine 0.125 mg, 1 PO No Longer [facility] [place] tab, Route: Active 2012 Medical PO, Drug form: [place] TAB, TID, Dosing Weight 65, kg, Start date: 01/21/13 17:00:00, Duration: 30 day, Stop date: 02/20/13 13:00:00 D5W 1/2NS 1,000 1,000 mL, IV No Longer [facility] [place] mL Rate: 75 Active 2012 Medical ml/hr, Infuse [place] over: 13.3 hr, Route: IV, Dosing Weight 65 kg, Total Volume: 1,000, Start date: 01/21/13 15:44:00, Duration: 30 day, Stop date: 02/20/13 15:43:00 Dilaudid 0.5 mg, 0.25 IV No Longer [facility] 01/21[facility] mL, Route: IV, Active 2012 Medical Drug form: [place] INJ, ONCE, Dosing Weight 65, kg, Start date: 01/21/13 14:32:00, Stop date: 01/21/13 14:32:00 Dilaudid 0.5 mg, 0.25 IV No Longer [facility] 01/21[facility] mL, Route: IV, Active 2012 Medical Drug form: [place] INJ, Q8H, Dosing Weight 65, kg, PRN as needed for pain, Start date: 01/21/13 9:39:00, Duration: 30 day, Stop date: 02/20/13 9:38:00 senna 8.6 mg 8.6 mg, 1 tab, PO No Longer [facility] oral tablet Route: PO, Active 2012 Medical Drug Form: [place] TAB, Dosing Weight 65, kg, BID, PRN as needed for constipation, Start date: 01/21/13 9:39:00, Duration: 30 day, Stop date: 02/20/13 9:38:00 MiraLax 17 gm, 1 pkt, PO No Longer [facility] Route: PO, Active 2012 Medical Drug form: [place] PWDR, Daily, Dosing Weight 65, kg, PRN Constipation, Start date: 01/21/13 9:38:00, Duration: 30 day, Stop date: 02/20/13 9:37:00 tramadol 50 mg 50 mg, 1 tab, PO No Longer [facility] 01/21[facility] oral tablet Route: PO, Active 2012 Medical Drug form: [place] TAB, Q8H, Dosing Weight 65, kg, PRN as needed for pain, Start date: 01/21/13 9:38:00, Duration: 30 day, Stop date: 02/20/13 9:37:00 Protonix 40 mg, 1 tab, PO No Longer [facility] Route: PO, Active 2012 Medical Drug form: [place] ECTAB, Daily, Dosing Weight 65, kg, Start date: 01/21/13 9:00:00, Duration: 30 day, Stop date: 02/19/13 9:00:00 Dilaudid 0.5 mg, 0.25 IV No Longer [facility] s mL, Route: IV, Active 2012 Medical Drug form: [place] INJ, ONCE, Dosing Weight 65, kg, PRN as needed for pain, Start date: 01/20/13 22:21:00 Zosyn 3.375 gm, IVPB No Longer [facility] 01/20[facility] Route: IVPB, Active 2012 Medical Drug form: [place] PDR/INJ, ABXQ8H, Start date: 01/20/13 11:00:00, Stop date: 02/19/13 2:00:00 enoxaparin 40 mg, 0.4 mL, SUB-Q No Longer [place] [facility] Route: SUB-Q, Active 2012 Medical Drug form: [place] INJ, [id number], Dosing Weight 65, kg, Start date: 01/20/13 6:00:00, Duration: 30 day, Stop date: 02/18/13 6:00:00 NS + KCL 1,000 mL, IV No Longer [place] [facility] 20mEq/L 1000ml Rate: 125 Active 2012 Medical (Premix) 1,000 ml/hr, Infuse Reva ter mL over: 8 hr, Route: IV, Dosing Weight 65 kg, Total Volume: 1,000, Start date: 01/20/13 5:25:00, Duration: 30 day, Stop date: 02/19/13 5:24:00 Zosyn 3.375 gm, IVPB No Longer [place] [facility] Route: IVPB, Active 2012 Medical Drug form: [place] INJ, Q6H, Dosing Weight 65, kg, Priority: STAT, Start date: 01/20/13 5:24:00, Duration: 30 day, Stop date: 02/19/13 0:00:00 Dilaudid 0.5 mg, 0.25 IV No Longer [facility] mL, Route: IV, Active 2012 Medical Drug form: [place] INJ, Q4H, Dosing Weight 65, kg, PRN as needed for pain, Start date: 01/20/13 5:23:00, Duration: 30 day, Stop date: 02/19/13 5:22:00 docusate Substitution Active [place] Allowed 2012 Medical [place] ondansetron 4 mg, 2 mL, IVP No Longer [place] Route: IVP, Active 2012 Medical Drug form: [place] INJ, Q8H, Dosing Weight 65, kg, PRN Nausea & Vomiting, Start date: 01/20/13 5:15:00, Duration: 30 day, Stop date: 02/19/13 5:14:00 NS 1,000 mL 1,000 mL, IV No Longer [facility] Rate: 75 Active 2012 Medical ml/hr, Infuse Center over: 13.3 hr, Route: IV, Dosing Weight 65 kg, Total Volume: 1,000, Start date: 01/20/13 4:41:00, Duration: 30 day, Stop date: 02/19/13 4:40:00 Zosyn 3.375 gm, IVPB No Longer [facility] Route: IVPB, Active 2012 Medical Drug form: Center PDR/INJ, ONCE, Dosing Weight 65, kg, Priority: STAT, Start date: 01/20/13 3:51:00, Stop date: 01/20/13 3:51:00 fentanyl 50 microgram, IVP No Longer [place] Route: IVP, Active 2012 Medical ONCE, Dosing Center Weight 65, kg, Priority: STAT, Start date: 01/20/13 3:43:00, Stop date: 01/20/13 3:43:00 Zofran 4 mg, 2 mL, IVP No Longer [facility] Route: IVP, Active 2012 Medical Drug form: Center INJ, ONCE, Dosing Weight 65, kg, Priority: STAT, Start date: 01/20/13 1:32:00, Stop date: 01/20/13 1:32:00 fentanyl 50 microgram, IVP No Longer [place] Route: IVP, Active 2012 Medical ONCE, Dosing Center Weight 65, kg, Priority: STAT, Start date: 01/19/13 23:31:00, Stop date: 01/19/13 23:31:00 Omnipaque 78 mL, Route: IVP No Longer [place] 350mg/ml IVP, Drug Active 2012 Medical Form: [facility] Dosing Weight 65, kg, ONCALL, STAT, Start date: 01/19/13 22:40:00, Duration: 1 doses or times, Weight = 60 - 74kg -- "To be infused by Radiology Staff ONLY"Weight = 60 - 74kg -- "To be infused by Radiology Staff ONLY" NS (Bolus) IV 1,000 mL, IV No Longer [place] 1000 mL Rate: 1,000 Active 2012 Medical ml/hr, Infuse Center over: 1 hr, Route: [...] Active [place] Allowed, 2012 Medical [facility] clorazepate Substitution [place] 2012 [facility] Symax Duotab Substitution Active [place] Allowed 2012 Medical Center Prilosec Substitution Active [place] Allowed 2012 [facility] Center Premarin Substitution Active [place] Allowed 2012 [facility] Allergies, Adverse Reactions, Alerts Substance Category Reaction Severity Reaction Status Date Comments S ource type Reported diazepam<dove Assertion Drug Active Data Mischer p>1</sup> allergy 2 migrated Neuro from [employer] on 12/24/14. Originally documented as VALIUM. midazolam<s Assertion Drug Active Data Mischer up>2</sup> allergy 2 migrated Neur o from [employer] on 12/24/14. Originally documented as VERSED. morphine<dove Assertion Drug Active Data Mischer p>3</sup> allergy 2 migrated Neuro from [employer] on 12/24/14. Originally documented as MORPHINE. Valium Assertion Drug Active [place] r allergy Neuro morphine drug Allergy [place] [facility] cortisone drug Allergy Active [place] as allergy Medical Center Immunizations No Data Provided for This Section Results Order Name Results Value Reference Date Interpretation Comments Chi[place] Range HEMATOLOGY Sed Rate 2 < OR = 30 03/15 Result Mischer mm/hr Comment: Neuro
Lab test performed by:
[facility]
[address]
[place] [address]
Bryan Carpenter HEMATOLOGY SS-A (Ro) Ab <1.0 NEG <1.0 NEG 03/15 Result Mische r Comment: Neuro
Lab test performed by:
[facility]
[address]
[place] [address]
Dr. Bryan Carpenter HEMATOLOGY SS-B (La) Ab <1.0 NEG <1.0 NEG 03/15che r Neuro HEMATOLOGY Varicella 775.20 03/15 Result [...] Immunity Screen, ACIF.

Lab test performed by:
[email or web address]
[place] [id number]
[address] Bryan Carpenter HEMATOLOGY EBV VCA IgM 62.60 03/15 Result Mischer /2018 Comment: Neuro U/mL Interpretatio n
---- -
<36.00 Negative
36.00-43.99 Equivocal<br/ > >43.99 Positive

Lab test performed by:
[facility]
[id number]
[place] [address]
Dr. Bryan Carpenter HEMATOLOGY ANGIOTENSIN 9 9 - 67 03/15 Result Mischer CONVERTING Comment: Neuro ENZYME
Lab test performed by:
[facility]
[address]
[place] [address]
Dr. Bryan Carpenter HEMATOLOGY Varicella 0.69 03/15 [...]
<br/& gt;FASTING: YES

Lab test performed by:
[facility]
[address]
[place] [address]
Dr. Bryan Carpenter URINE AND UA Blood Negative Negative 05/06 STOOL (05/06/17 3:21 PM) [place] URINE AND UA Nitrite Negative Negative 05/06 STOOL (05/06/17 3:21 PM) [place] URINE AND UA Bili Negative Negative 05/06 STOOL *NA* /2017 [place] (05/06/17 3:21 PM) URINE AND UA Leuk Est Negative Negative 05/06 STOOL (05/06/17 3:21 PM) [place] URINE AND UA Sq Epi Few /LPF Few /LPF 05/06 STOOL /2017 [place] URINE AND UA Protein 30 mg/dL Negative 05/06 STOOL mg/dL [place] URINE AND UA Ketones 20 mg/dL Negative 05/06 STOOL mg/dL [place] URINE AND UA Glucose Negative Negative 05/06 STOOL mg/dL mg/dL [place] URINE AND UA <=1.0 0.1 - 1.0 05/06 STOOL Urobilinogen mg/dL [place] URINE AND UA RBC 1 0 - 2 05/06 STOOL [place] URINE AND UA Mucus Few /LPF None Seen 05/06 MH STOOL /LPF [place] URINE AND UA WBC 2 0 - 5 05/06 STOOL [place] URINE AND UA Color Yellow Yellow 05/06 STOOL *NA* [place] (05/06/17 3:21 PM) URINE AND UA Spec Grav 1.019 <=1.030 05/06 STOOL [place] URINE AND UA pH 5.0 5.0 - 8.0 05/06 STOOL [place] URINE AND UA Turbidity Slight Clear 05/06 STOOL *ABN* [place] (05/06/17 3:21 PM) CHEM PANEL Lipase Lvl 166 73 - 393 05/06 [facility] CHEM PANEL Amylase Lvl 42 25 - 115 05/06 [facility] ELECTROLYTE Chloride Lvl 100 95 - 109 05/06 S [place] ELECTROLYTE Sodium Lvl 139 135 - 145 05/06 S [place] ELECTROLYTE Potassium 4.0 3.5 - 5.1 05/06 S Lvl [place] ELECTROLYTE eGFR 41 05/06 Result Comment: The [facility] eGFR is calculated using the CKD-EPI formula. [...] Bili Total 0.7 0.2 - 1.3 05/06 MH S [place] ELECTROLYTE Alk Phos 82 39 - 136 05/06 MH S [place] ELECTROLYTE A/G Ratio 1.0 0.7 - 1.6 05/06 S [place] ELECTROLYTE ALT 19 0 - 65 05/06 MH S [place] ELECTROLYTE AST 15 0 - 37 05/06 MH S [place] ELECTROLYTE Globulin 4.1 2.7 - 4.2 05/06 MH S [place] ELECTROLYTE Albumin Lvl 4.3 3.5 - 5.0 05/06 MH S [place] ELECTROLYTE B/C Ratio 18 6 - 25 05/06 MH S [place] ELECTROLYTE Calcium Lvl 9.4 8.5 - 10.5 05/06 S [place] ELECTROLYTE Total 8.4 6.4 - 8.4 05/06 MH S [place] ELECTROLYTE CO2 27 24 - 32 05/06 MH S [place] ELECTROLYTE AGAP 16.0 10.0 - 05/06 MH S 20.0 [place] ELECTROLYTE Creatinine 1.36 0.50 - 05/06 MH S Lvl 1.40 /2017 [place] ELECTROLYTE BUN 24 7 - 22 05/06 MH S [place] ELECTROLYTE Glucose Lvl 77 70 - 99 05/06 MH S [place] HEMATOLOGY Lymphocytes 2.3 1.0 - 5.5 05/06 MH # /2017 [place] HEMATOLOGY Monocytes # 0.8 0.0 - 0.8 05/06 [place] HEMATOLOGY Eosinophils 0.2 0.0 - 4.0 05/06 MH [place] HEMATOLOGY Basophils 0.4 0.0 - 1.0 05/06 MH [place] HEMATOLOGY Segs-Bands # 6.4 1.5 - 8.1 05/06 [place] HEMATOLOGY Lymphocytes 24.4 20.0 - 05/06 MH 40.0 [place] HEMATOLOGY Monocytes 8.1 2.0 - 12.0 05/06 [place] HEMATOLOGY Segs 66.9 45.0 - 05/06 MH 75.0 [place] HEMATOLOGY MPV 8.4 7.4 - 10.4 05/06 [place] HEMATOLOGY Platelet 287 133 - 450 05/06 [place] HEMATOLOGY MCH 32.4 27.0 - 05/06 31.0 [place] HEMATOLOGY RDW 12.5 11.5 - 05/06 14.5 [place] HEMATOLOGY MCV 91.5 80.0 - 05/06 98.0 [place] HEMATOLOGY MCHC 35.4 32.0 - 05/06 36.0 [place] HEMATOLOGY Hct 42.5 36.0 - 05/06 48.0 [facility] HEMATOLOGY WBC 9.6 3.7 - 10.4 05/06 [facility] HEMATOLOGY Hgb 15.1 12.0 - 05/06 16.0 [facility] HEMATOLOGY RBC 4.65 4.20 - 05/06 5.40 [facility] CHEMISTRY eGFR 95 01/23 NA <sup>1</sup>R esult [...] CHEMISTRY AGAP 12.9 10.0 - 01/23 Normal . [facility] CHEMISTRY Calcium Lvl 8.5 8.5 - 10.5 01/23 Normal [facility] CHEMISTRY Glucose Lvl 75 70 - 99 01/23 Normal <sup>4</sup>I T ex nterpretive Medical Data: Adult Center reference range values reflect the clinical guidelines
of the [place] [employer]. CHEMISTRY CO2 28 24 - 32 01/23 Normal [facility] CHEMISTRY Chloride Lvl 106 95 - 109 01/23 Normal Medical [facility] CHEMISTRY Potassium 3.9 3.5 - 5.1 01/23 Normal [place] [facility] CHEMISTRY BUN 5 7 - 22 01/23 LOW [facility] CHEMISTRY Creatinine 0.7 0.5 - 1.4 01/23 Normal [place] [facility] CHEMISTRY Sodium Lvl 143 135 - 145 01/23 Normal [facility] HEMATOLOGY MPV 8.4 7.4 - 10.4 01/23 Normal [facility] HEMATOLOGY RBC 3.95 4.20 - 01/23 LOW [place] 5.40 /2012 Medical [facility] HEMATOLOGY WBC 5.7 3.7 - 10.4 01/23 Normal [facility] HEMATOLOGY MCH 33.0 27.0 - 01/23 HI [place] 31.0 Medical Center HEMATOLOGY Hct 37.4 36.0 - [...] Lymphocytes 2.1 1.0 - 5.5 01/23 [facility] HEMATOLOGY Eosinophils 2.2 0.0 - 4.0 01/23 Normal [facility] HEMATOLOGY Basophils 0.4 0.0 - 1.0 01/23 Normal [facility] CHEMISTRY Lipase Lvl 109 73 - 393 01/22 Normal [facility] CHEMISTRY Globulin 3.1 2.0 - 4.0 01/22 Normal [facility] CHEMISTRY A/G Ratio 1.0 0.7 - 1.6 01/22 Normal [facility] CHEMISTRY B/C Ratio 4 6 - 25 01/22 LOW [facility] CHEMISTRY AGAP 11.9 10.0 - 01/22 Normal [facility] 20.0 [facility] CHEMISTRY eGFR 95 01/22 NA <sup>2</sup>R esult [...] AST 16 0 - 37 01/22 Normal [facility] CHEMISTRY CO2 26 24 - 32 01/22 Normal [facility] CHEMISTRY Calcium Lvl 8.0 8.5 - 10.5 01/22 LOW [facility] CHEMISTRY Total 6.1 6.4 - 8.4 01/22 LOW [facility] CHEMISTRY Bili Total 0.5 0.2 - 1.3 01/22 Normal [facility] CHEMISTRY Creatinine 0.7 0.5 - 1.4 01/22 Normal [place] Lvl /2012 Medical Center CHEMISTRY Sodium Lvl 140 135 - 145 01/22 Normal Medical [facility] CHEMISTRY Chloride Lvl 106 95 - 109 01/22 Normal [facility] CHEMISTRY Potassium 3.9 3.5 - 5.1 01/22 Normal [place] [facility] CHEMISTRY ALT 20 0 - 65 01/22 Normal [facility] CHEMISTRY BUN 3 7 - 22 01/22 LOW [facility] CHEMISTRY Glucose Lvl 115 70 - 99 01/22 [place] <sup>5</sup>I [place] nterpretive Medical Data: Adult Center reference range values reflect the clinical guidelines
of the [place] [employer]. CHEMISTRY Alk Phos 74 39 - 136 01/22 Normal [facility] Center CHEMISTRY Albumin Lvl 3.0 3.5 - 5.0 01/22 LOW Medical [facility] HEMATOLOGY Eosinophils 0.1 0.0 - 0.5 01/22 [place] # /2012 [facility] HEMATOLOGY Basophils 0.3 0.0 - 1.0 01/22 Normal [facility] HEMATOLOGY Segs-Bands # 2.8 1.5 - 8.1 01/22 Normal [facility] HEMATOLOGY Lymphocytes 2.0 1.0 - 5.5 01/22 Normal [place] # /2012 [facility] HEMATOLOGY Monocytes # 0.6 0.0 - 0.8 01/22 [place] /2012 [facility] HEMATOLOGY Lymphocytes 35.5 20.0 - 01/22 Normal [place] 40.0 Medical Center HEMATOLOGY Monocytes 11.0 2.0 - 12.0 01/22 Normal [facility] HEMATOLOGY Eosinophils 2.1 0.0 - 4.0 01/22 [place] /2012 [facility] HEMATOLOGY Segs 51.1 45.0 - 01/22 Normal [place] 75.0 /2012 Medical Center HEMATOLOGY Sed Rate 15 0 - 20 01/22 Normal [facility] HEMATOLOGY MCHC 34.6 32.0 - 01/22 Normal [place] 36.0 Medical Center HEMATOLOGY MCH 32.8 27.0 - 01/22 HI [place] 31.0 Medical Center HEMATOLOGY RDW 12.3 11.5 - 01/22 Normal [place] 14.5 /2012 Medical Center HEMATOLOGY MPV 8.2 7.4 - 10.4 01/22 Normal [facility] HEMATOLOGY Platelet 189 133 - 450 01/22 Normal [facility] HEMATOLOGY RBC 3.63 4.20 - 01/22 [facility] [place] 5.40 /2012 [facility] HEMATOLOGY WBC 5.5 3.7 - 10.4 01/22 Normal [facility] HEMATOLOGY Hgb 11.9 12.0 - 01/22 [facility] 16.0 /2012 [facility] HEMATOLOGY Hct 34.5 36.0 - 01/22 [facility] 48.0 /2012 [facility] HEMATOLOGY MCV 94.9 81.0 - 01/22 [facility] 99.0 [facility] TUMOR CA 19-9 7.0 0.0 - 35.0 01/22 [facility] CHEMISTRY Lactic Acid 0.9 0.5 - 2.2 01/21 Normal [facility] CHEMISTRY eGFR 95 01/21 NA <sup>3</sup>R esult [...] Potassium 4.1 3.5 - 5.1 01/21 Normal [facility] CHEMISTRY Chloride Lvl 107 95 - 109 01/21 Normal [facility] CHEMISTRY Sodium Lvl 140 135 - 145 01/21 [facility] CHEMISTRY Glucose Lvl 102 70 - 99 01/21 [place] <sup>6</sup>I [place] /2013 nterpretive Medical Data: Adult Center reference range values reflect the clinical guidelines
of the [place] [employer]. CHEMISTRY BUN 7 7 - 22 01/21 Normal [facility] CHEMISTRY CO2 25 24 - 32 01/21 Normal [facility] CHEMISTRY Calcium Lvl 8.2 8.5 - 10.5 01/21 LOW [facility] CHEMISTRY Creatinine 0.7 0.5 - 1.4 01/21 Normal l [facility] CHEMISTRY AGAP 12.1 10.0 - 01/21 Normal [place] 20.0 Medical Center CHEMISTRY Ketone 1.38 <=0.27 01/21 HI [facility] CHEMISTRY Magnesium 1.8 1.8 - 2.4 01/21 Normal Medical [facility] CHEMISTRY Lipase Lvl 119 73 [...] Total 0.7 0.2 - 1.3 01/21 Normal [facility] Center CHEMISTRY Total 5.7 6.4 - 8.4 01/21 LOW [facility] CHEMISTRY B/C Ratio 22 6 - [...] # 0.8 0.0 - 0.8 01/21 [place] [facility] HEMATOLOGY Lymphocytes 2.1 1.0 - 5.5 01/21 [place] # /2012 [facility] HEMATOLOGY Basophils 0.6 0.0 - 1.0 01/21 Normal /2012 Medical [place] HEMATOLOGY Segs-Bands # 5.9 1.5 - 8.1 [...] WBC 8.9 3.7 - 10.4 01/21 Normal Medical Center URINALYSIS Micro? Performed 01/20 Normal [facility] (01/19/2013 23:30:05) [facility] URINALYSIS UA WBC None Seen None Seen 01/20 Normal [facility] (01/19/2013 23:30:05) [facility] URINALYSIS UA Sq Epi Few /LPF Few 01/20 Normal [facility] (01/19/2013 23:30:05) [facility] URINALYSIS UA RBC None Seen 0 - 2 01/20 Normal [facility] (01/19/2013 23:30:05) [facility] URINALYSIS UA Blood Negative Negative 01/20 Normal [facility] (01/19/2013 23:30:05) [facility] URINALYSIS UA 0.2 0.1 - 1.0 01/20 Normal [facility] Urobilinogen /2012 Medical Center URINALYSIS UA Bili Negative Negative 01/20 NA *NA* Medical (01/19/2013 23:30:05) Ce nter URINALYSIS UA Nitrite Negative Negative 01/20 Normal [facility] (01/19/2013 23:30:05) [facility] Center URINALYSIS UA Leuk Est Negative Negative 01/20 [place] (01/19/2013 23:30:05) [facility] URINALYSIS UA Glucose Negative mg/dL Negative 01/20 Normal [facility] (01/19/2013 23:30:05) Wa dical Center URINALYSIS UA Ketones Negative mg/dL Negative 01/20 NA *NA* Medical (01/19/2013 23:30:05) Ce nter URINALYSIS UA pH 8.0 5.0 - 8.0 01/20 [facility] URINALYSIS UA Protein Negative mg/dL Negative 01/20 Normal [facility] (01/19/2013 23:30:05) [facility] URINALYSIS UA Turbidity Clear Clear 01/20 Normal [facility] (01/19/2013 23:30:05) [facility] URINALYSIS UA Spec Grav 1.015 <=1.030 01/20 [facility] URINALYSIS UA Color Yellow Yellow 01/20 NA Medical (01/19/2013 23:30:05) Ce nter CHEMISTRY Lipase Lvl 345 73 - 393 01/20 Normal [facility] CHEMISTRY Total 7.3 6.4 - 8.4 01/20 Normal [facility] [place] CHEMISTRY Bili Total 0.5 0.2 - 1.3 01/20 [facility] CHEMISTRY Albumin Lvl 3.8 3.5 - 5.0 01/20 Normal [facility] [place] CHEMISTRY ALT 30 0 - 65 01/20 Normal [facility] [place] CHEMISTRY Alk Phos 81 39 - 136 01/20 Normal [facility] [place] CHEMISTRY Bili Direct 0.1 0.0 - 0.3 01/20 [facility] CHEMISTRY AST 23 0 - 37 01/20 Normal [facility] CHEMISTRY Globulin 3.5 2.0 - 4.0 01/20 Normal [facility] CHEMISTRY A/G Ratio 1.1 0.7 - 1.6 01/20 Normal [facility] CHEMISTRY Bili 0.4 0.0 - 1.0 01/20 Normal [facility] Indirect [facility] HEMATOLOGY Basophils # 0.1 0.0 - 0.2 01/20 [place] [facility] Pathology Reports No Data Provided for This Section Diagnostic Reports Report Value Date Source Chest 1 v for EXAM: XR CHEST 1 VIEW 10/30/2019 [facility] edical Placement DX DATE: 10/31/2019 3:29 CDT Center INDICATION: Line Placement - Chest 1 view for li ne placement COMPARISON: 10/30/2019 TECHNIQUE: AP chest IMPRESSION: 1. No definite lines or tubes identified in the current field of view. 2. Minimal left basilar ate lectatic changes. Otherwise, lungs are clear. Costophrenic recesses are sharp. Cardiomediastinal silhouette within normal limits. 3. Osseous structures are s table. Again seen is hardware fixation of the lower cervical spine. ED Abdomen/Pelvis IV Clinical indication: - hx o f pancreatitis, unable to tolerate pain since last admission in march/DLP:1306.16mGy-cm 05/06/2017 [facility] contrast only CT Comparison: CT abdomen pelvis [...] mild asymmetry in the renal size. SL: [id number] Abdomen/Pelvis CTA EXAM: CTA ABDOMEN. 01/22/2013 [facility] edical EXAM: CTA PELVIS. Center DATE: [...] CT ABDOMEN AND PELVIS, W/O CONTRAST 01/02 [facility] contrast CT Center DATE: 01/20/2013 at [...] CT ABDOMEN AND PELVIS, W/ CONTRAST, 01/[address] [facility] [address] Center DATE: 01/20/2013 at 12 09 [...] the duodenum. Small bowel and colon: No raulito wel dilatation is seen. Appendix is not [...] . Bony pelvis and spine: No ac [place] abnormality . L5-S1 disc degenerative change and [...] Chest 1view EXAM: CHEST 1 VIEW 01/19/2013 [facility] DATE: January 19, 2013 at 2244 INDICATION: [...] Comments Source Systolic (mm Hg) 118 05/05/2019 [facility] Diastolic (mm Hg) 70 05/05/2019 [facility] Heart Rate 96 05/05/2019 [facility] Respitory Rate 16 05/05/2019 [facility] Height 165.1 cm 05/05/2019 [facility] Weight 83.636 05/05/2019 [facility] BMI Calculated 30.68 05/05/2019 [facility] Systolic (mm Hg) 135 03/22/2019 [facility] [place] [facility] Diastolic (mm Hg) 86 03/22/2019 [facility] Heart Rate 81 03/22/2019 [facility] Respitory Rate 16 03/22/2019 [facility] Height 165.1 cm 03/22/2019 [facility] Weight 84.545 03/22/2019 [facility] BMI Calculated 31.02 03/22/2019 [facility] Systolic (mm Hg) 136 03/15/2019 [facility] [place] [facility] Diastolic (mm Hg) 84 03/15/2019 [facility] Heart Rate 73 03/15/2019 [facility] Respitory Rate 16 03/15/2019 [facility] Height 165.1 cm 03/15/2019 [facility] Weight 85.455 03/15/2019 [facility] BMI Calculated 31.35 03/15/2019 [facility] Systolic (mm Hg) 125 12/21/2018 [facility] Diastolic (mm Hg) 76 12/21/2018 [facility] Heart Rate 75 12/21/2018 [facility] Respitory Rate 16 12/21/2018 [facility] Height 165.1 cm 12/21/2018 [facility] Weight 85 12/21/2018 [facility] BMI Calculated 31.18 12/21/2018 [facility] BMI Calculated 29.6 10/19/2018 [facility] Height 167.64 cm 10/19/2018 [facility] Weight 83.182 10/19/2018 [facility] Systolic (mm Hg) 106 10/19/2018 [facility] Diastolic (mm Hg) 70 10/19/2018 [facility] Respitory Rate 16 10/19/2018 [facility] Heart Rate 74 10/19/2018 [facility] BMI Calculated 27.5 09/08/2018 [facility] Weight 77.273 09/08/2018 [facility] Height 167.64 cm 09/08/2018 [facility] Respitory Rate 16 09/08/2018 [facility] Heart Rate 87 09/08/2018 [facility] Systolic (mm Hg) 105 09/08/2018 [facility] Diastolic (mm Hg) 68 09/08/2018 [facility] Heart Rate 72 05/07/2017 [place] Systolic (mm Hg) 115 05/07/2017 [facility] Diastolic (mm Hg) 68 05/07/2017 [facility] [place] Respitory Rate 16 05/07/2017 [facility] [place] Temperature Oral (F) 98.0 F 05/07/2017 [place] Temperature Oral (F) 97.7 F 05/07/2017 [facility] [place] Systolic (mm Hg) 111 05/07/2017 [facility] Diastolic (mm Hg) 65 05/07/2017 [facility] [place] Heart Rate 70 05/07/2017 [facility] Respitory Rate 17 05/07/2017 [facility] Weight 61.364 05/06/2017 [facility] Temperature Oral (F) 98.2 F 05/06/2017 [place] Heart Rate 83 05/06/2017 [facility] Respitory Rate 18 05/06/2017 [facility] Systolic (mm Hg) 102 05/06/2017 [facility] Diastolic (mm Hg) 55 05/06/2017 [place] Heart Rate 79 01/23/2013 [facility] Temperature Oral (F) 98.1 F 01/23/2013 [facility] Respitory Rate 18 01/23/2013 [facility] Systolic (mm Hg) 133 01/23/2013 [facility] dical Center Diastolic (mm Hg) 69 01/23/2013 [facility] edical Center Diastolic (mm Hg) 68 01/23/2013 [facility] edical Center Systolic (mm Hg) 129 01/23/2013 [facility] dical Center Heart Rate 67 01/23/2013 [facility] Respitory Rate 18 01/23/2013 [facility] Temperature Oral (F) 98.4 F 01/23/2013 [facility] Heart Rate 65 01/23/2013 [facility] Systolic (mm Hg) 106 01/23/2013 [facility] dical Center Respitory Rate 18 01/23/2013 [facility] ion Center Diastolic (mm Hg) 59 [facility]/23/[facility] [place] Temperature Oral (F) 98.5 F 01/23/2013 [facility] Height 158.4 cm 01/20/2013 [facility] Height 160.02 cm 01/20/2013 [facility] Weight 65 01/20/2013 [facility] [place] Weight 65 01/16/2013 [facility] [place] Diastolic (mm Hg) 78 01/16/2013 [facility] Systolic (mm Hg) 119 01/16/2013 [facility] dical [place] Temperature Oral (F) 98.5 F 01/16/2013 [facility] Respitory Rate 18 01/16/2013 [facility] Heart Rate 87 01/16/2013 [facility] Encounters Location Location Encounter Encounter Reason Attending ADM DC Stat us Source Details Type Number For Provider Date Date Visit [facility] Outpatient [id number] ABD ATILLA 01/16 Activ e [facility] PAIN ERT [facility] RAULITO [id number] ATILLA 01/19 01/19 Discharg [facility] Medical ERTAN [facility]2012 [facility] Inpatient [id number] HILARY 01/20 01/23 Discha rg [facility] SAJJA /2012 ed [facility] Emergency [id number] [place] 05/06 05/07 [place] /2017 [facility] maty [facility] Outpatient [id number] ANGELA 07/15 Active [facility] [place] Outpatient [id number] ANGELA 07/15 [facility] Outpatient [id number] Angela 08/03 [facility] Outpatient [id number] ANGELA 08/03 Active [facility]NA Phone [id number] 08/18 08/20 Misc her [facility] [place] [facility] [id number] Angela 09/[address] [facility] [place] [facility] Outpatient [id number] Angela 09/08 09/09 [facility] [place] Outpatient [id number] Angela 10/[address] [facility] [place] [facility] Outpatient [id number] Angela 10/19 10/20 [facility] [place] Outpatient [id number] Angela 12/21 [facility] [place] [facility] [id number] Angela 12/21 12/22 [facility] [place] Outpatient [id number] Angela 03/15 [facility] [place] [facility] [id number] Angela 03/15 03/16 [facility] [place] Outpatient [id number] Angela 03/22 [facility] [place] [facility] Outpatient [id number] Angela 03/22 03/23 [facility] [place] Outpatient [id number] Angela 05/05 [facility] [place] [facility]patient [id number] Angela 05/05 05/06 [facility] [place] [facility]2019 [facility] [place] Outpatient [id number] Angela 08/03 [facility] [place] [facility] Ambulatory [id number] Angela 08/03 08/03 [facility] Pre-Reg [facility] [place] [facility] Outpatient [id number] POST CONNIE juarez [facility] Center Procedures Procedure Code Date Perfomer Comments Source cholecys<sup>1< [id number] gall bladder 2012 [place] elizabeth /sup> minicus in right knee 201 1 Neuro, bladder repair [place] appendectomy 1992 total hysterectomy 1979 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 cholecys [id number] 1gall bladder 2012 [facility] <sup>1</sup> minicus in right knee 2 011 Medical bladder repair [place] appendectomy 1992 total hysterectomy 1979 reptured disk [...] ouse No data available for this 05/07/2017 [facility] [place] section Family History No Data Provided for This Section Advance Directives No Data Provided for This Section Functional Status No Data Provided for This Section
--- OUTSIDE RECORDS SUMMARY | 2019-11-02 12:30 | XMS REPORT | Continuity of Care Document ---
:1955 Author Organization [facility] t Address [address] [place] [address] Care Team Providers Name Role Phone Nayla Alonzo MD Primary Care Physician Lauryn Fountain MD Attending Clinician Chel Florian MD Attending Clinician Danae TAYLOR Attending Clinician Wanda Suarez NP Attending Clinician Reza CHERY SManjit Attending Clinician Chaparro RAVI Attending Clinician Unavailable Vahe HOYT Attending Clinician Unavailable Tulio Palacios Attending Clinician Kevin Stiles Attending Clinician [facility] Attending Clinician Unavailable Danitza Sotelo MD Attending Clinician Tima Melton Jr Attending Clinician ANIVAL Admitting Clinician Unavailable Payers Payer Name Policy Policy Number Effective Expiration Source Type Date Date CIGNA - MGD CARECIGNA xxxxxxxxx [facility] HMO/POS/OPEN - Medical ACCESSxxxxxxxxxHMO/PO Reva ter S MEDICAREMEDICARE PART xxxxxxxxxxx 2018 Francisco J Brown AND 00:00:00 [place] Bxxxxxxxxxxx2018- ANGELICA BlelMedicare COMMERCIAL MISCMISC xxxxxxxxx 2009 [place] COMMERCIALxxxxxxxxx1/ 00:00:00 Met anjali 05/2009-Liam ial Problems Condition Condition Condition Status Onset Resolution Last Treating Co mments Source Name Details Category Date Date Treatment Clinician Date PE, Diagnosis Active 2019-11-01 Mem oria PULMONARY 10-29 14:09:00 l DVT LEFT PE, 00:00: Agus LEG PULMONARY 00 DVT LEFT LEG Active 10/30/2019 [facility] Follow-up Follow-up Disease Active Lacho romero examinatio examinatio 6-18 Me thodi n n 00:00: st following following 00 surgery surgery S/P lumbar S/P lumbar Disease Active H dany laminectom laminectom 5-19 Me thodi y y 00:00: st 00 DDD DDD Disease Active [place] (degenerat (degenerat 4-13 Me thodi jhon disc jhon disc 00:00: st disease), disease), 00 lumbar lumbar Spinal Spinal Disease Active [place] stenosis stenosis 4-13 Method i of lumbar of lumbar 00:00: st region region 00 with with neurogenic neurogenic claudicati claudicati on on Thoracic Thoracic Disease Active [place] radiculopa radiculopa 4-13 Me thodi thy thy 00:00: st 00 Claudicati Claudicati Disease Active H dany on on 3-03 Methodi 00:00: st 00 Bilateral Bilateral Disease Active Lacho romero carotid carotid 2-04 Methodi artery artery 00:00: st stenosis stenosis 00 PAD PAD Disease Active [place] (periphera (periphera 2-04 Me thodi l artery l artery 00:00: st disease) disease) 00 Chronic Chronic Disease Active [place] back pain back pain 6-05 Meth nik 00:00: st 00 Generalize Generalize Disease Active H dany d d 4-30 Methodi abdominal abdominal 00:00: st pain pain 00 Right Right Disease Active [place] upper upper 3-26 Methodi quadrant quadrant 00:00: st pain pain 00 Slow Slow Disease Active [place] transit transit 3-26 Methodi constipati constipati 00:00: st on on 00 History of History of Disease Active [place] cholecyste cholecyste - Me odi ctomy ctomy 00:00: st 00 Essential Essential Disease Active Lacho ston hypertensi hypertensi - Me thodi on on 00:00: st 00 Splenic Splenic Disease Active [place] artery artery - Methodi aneurysm aneurysm 00:00: st 00 Anxiety Anxiety Disease Active Yoo - Methodi 00:00: st 00 ABDOMINAL Diagnosis Active 2017-05-06 Memoria PAIN/LOSS 1-04 18:11:00 l OF 00:00: Agus APPETITE ABDOMINAL 00 PAIN/LOSS OF APPETITE Active 05/06/2017 [facility] SURGERY Diagnosis Active 2013-01-20 Me moria THIS 01-19 08:28:00 l MORNING, SURGERY 00:00: Maria E nn PROBLEMS THIS 00 BREATHING MORNING, PROBLEMS BREATHING Active 01/19/2013 [facility] POST Diagnosis Active 2013-03-05 Mem oria FOLLOW UP 01-19 15:20:00 l POST 00:00: Agus FOLLOW UP 00 Active 01/19/2013 [facility] BDDC-WEIGH Diagnosis Active 2013-01-19 Memoria T LOSS 01-17 08:37:00 l 00:00: [place] BDDC-WEIGH 00 T LOSS Active 01/17/2013 [facility] 783.21 - Diagnosis Active 2013-12-25 M emoria ABNORMAL 01-16 02:47:00 l LOSS O 783.21 - 00:01: Dwight sanon 576.0 - ABNORMAL 00 POSTCHO LOSS O 576.0 - POSTCHO Active 01/16/2013 MARIA VICTORIA Leland ABD PAIN Diagnosis Active 2013-01-16 M emoria 01-11 13:45:00 l ABD PAIN 00:00: Dwight n 00 Active 01/11/2013 [facility] Gastroesop Problem Resolve 2019-08-06 Memoria hageal d 21:13:32 l reflux [place] disease Gastroesop (disorder) hageal reflux disease (disorder) Resolved Problem 08/06/2019 [facility] Lumbosacra Problem Resolve 2019-08-06 Memoria l plexus d 21:13:32 l neuropathy Dwight n (disorder) Lumbosacra l plexus neuropathy (disorder) [facility] Acid Problem Resolve 2013-01-25 Abdiel leigh ann reflux d 21:01:15 l Acid Agus reflux Resolved Problem 01/25/2013 [facility] HTN - Problem Resolve 2013-01-25 Abdiel leigh ann Hypertensi d 21:01:15 l on HTN - Agus Hypertensi on Resolved Problem 01/25/2013 [facility] Hypertensi Problem Active 2019-08-06 M emoria ve 21:13:32 l disorder, [place] systemic Hypertensi arterial ve (disorder) disorder, systemic arterial (disorder) Active [facility] Meralgia Problem Active 2019-08-06 Mem oria parestheti 21:13:32 l ca Meralgia Dwight n (disorder) parestheti ca (disorder) Active [facility] Pituitary Problem Active 2019-08-06 Me moria adenoma 21:13:32 l (disorder) Dwight n Pituitary adenoma (disorder) Active Problem 08/06/2019 Data migrated from [facility] on 12/25/14. [facility] Cervical Problem Active 2019-08-06 Mem oria spondylosi 21:13:32 l s Cervical Dwight n (disorder) spondylosi s (disorder) Active Problem 08/06/2019 [facility] Ulcer of Problem Active 2019-08-06 Mem oria lower 21:13:32 l extremity Ulcer of Her melendez (disorder) lower extremity (disorder) Active Problem 08/06/2019 [facility] ABDMNAL Diagnosis Active 2013-01-20 Me moria PAIN 08:28:00 l UNSPCF ABDMNAL Agus SITE PAIN UNSPCF SITE Active [facility] Unspecifie Problem 2017-05-09 2017-05-09 Memoria d 1-04 05:06:50 05:06:50 l abdominal 06:00: [place] pain Unspecifie 00 d abdominal pain 05/06/2017 05/09/2017 [facility] Allergies, Adverse Reactions, Alerts Allergy Allergy Status Severity Reaction(s) Onset Inactive Treating Comm ents Source Name Type Date Date Clinician Morphine Propensi Active Other (See Makes her Yoo ty to Comments) 9-15 loud and Metho di adverse 00:00: crazy st reaction 00 s to drug Diazepam Propensi Active Other (See Makes her [place] ty to Comments) 01-15 crazy and Meth nik adverse 00:00: wild st reaction 00 s to drug Midazola Propensi Active Other (See Makes her [facility] ty to Comments) 01-15 crazy and Meth nik adverse 00:00: loud st reaction 00 s to drug midazola midazola Active 2011-05 Memori a m<sup>2< m<sup>2< 0-23 l /sup> /sup> 05:00: Agus 00 morphine morphine Active 2011-05 Memori a <sup>3</ <sup>3</ 0-23 l sup> sup> 05:00: [place] 00 midazola DA Active SV 2009-05 [facility] m HCl 05-13 00:00: [address] diazepam DA Active SV 2009-05 [facility] 05-13 00:00: [address] morphine DA Active MO 2009-05 [facility] 05-13 00:00: [address] Valium Valium Active Memoria l Agus morphine morphine Active Memori a l [place] cortison cortison Active Memori a e e l [place] Family History Family Member Diagnosis Comments Start Date Stop Date Source Natural father Cancer [facility] thodist Natural father Liver cancer [place] [facility] Natural father Liver disease [place] [facility] Natural father Lung cancer [facility] ethodist Maternal grandfather Heart disease [place] Maternal grandfather Hypertension [place] Maternal grandmother Heart disease [place] Maternal grandmother Hypertension [place] Natural mother Cancer [facility]odist Natural mother Colon cancer [place] [facility] Natural mother Ovarian cancer [place] Natural mother Stomach cancer [place] Social History Social Habit Start Date Stop Date Quantity Comments Source Sex Assigned At [facility] ethodist Exposure to Not sure [place] Metho dist SARS-CoV-2 (event) Alcohol intake 2019-09-20 2019-09-20 Current [facility] thodist 00:00:00 00:00:00 non-drinker of alcohol (finding) Social History 2017-05-07 2017-05-07 [facility] 04:13:00 04:13:00 Smoking Status Start Date Stop Date Source Never smoker [place] Methodis t Medications Ordered Filled Start Stop Current Ordering Indication Dosage Frequency Signature Comments Components Source Medication Medication Date Date Medication? Clinician (SIG) Name Name doxycycline 2020-0 2020- No 100mg QD Take 100 Yoo (VIBRAMYCIN 5-22 05-22 mg by Method i ) 100 MG 11:10: 00:[address] capsule 38 :00 daily. pregabalin 2020-0 Yes 100mg [id number] Take 100 Yoo (LYRICA) 5-22 [id number] mg by Meth nik 100 MG 11:10: 3D mouth 3 st capsule 32 (three) times a day. quinapril 2020-0 Yes 20mg QD Take 20 mg [place] (ACCUPRIL) 5-22 by mouth Metho di 20 MG 11:10: nightly. st tablet 32 HYDROcodone 2020-0 Yes acute pain 1{tbl} [id number] Take 1 Yoo -acetaminop 5-22 [id number] tablet by Methodpatt hen (NORCO) 11:10: 3D [...] Yoo cetaminophe 5-22 tablet by Met hina sanon (LYNOX) 11:10: mouth st 7.5-300 mg 32 every 4 per tablet (four) hours as needed for moderate pain .acute pain. tiZANidine 2020-0 Yes 4mg Q.5D Take 4 mg [place] (ZANAFLEX) 5-22 by mouth 2 Met hina 4 MG tablet 11:10: (two) st 32 times a day as needed for muscle spasms. linaclotide 2020-0 2020- No 145ug Take 145 Yoo (LINZESS) 4-01 04-01 mcg by Methodi 145 mcg 15:15: 00:[address] capsule 12 :00 needed. omega-3 2020- 2020- No 300mg QD Take 300 [place] fatty acids 2-04 02-04 mg by Method i (FISH OIL) 09:49: 00:[address] 300 mg 29 :00 daily. capsule magnesium 2019-2019- No 400mg QD Take 400 [place] oxide 2-04 02-04 mg by Methodi (MAG-OX) 09:49: 00:[address] 400 mg 25 :00 daily. tablet CHOLECALCIF 2019-2019- No 2000U QD Take 2,000 Yoo MONICA, 2-04 02-04 Units by Methodi VITAMIN D3, 09:48: 00:[address] (D3-2000 48 :00 daily. ORAL) multivitami 2019- 2020- No 1{tbl} QD Take 1 [place] with 2-04 02-04 tablet by Methodi minerals 09:48: 00:[address] tablet 21 :00 daily. ascorbic 2019-2019- No 1500mg QD Take 1,500 Yoo acid, 2-04 02-04 mg by Methodi vitamin C, 09:48: [...] M emoria Conjugated 8-22 tab, PO, l (FCI) 0.3 13:52: Daily, # Herm emmett MG Oral 00 30 tab, 0 Tablet Refill(s) [Premarin] Acetaminoph Yes 1 tab, PO, Memoria en 325 MG / 8-22 Q6H, 0 l Hydrocodone 13:52: Refill(s) H ermann Bitartrate 00 10 MG Oral Tablet Belbuca Yes BUC, Q12H, Abdiel leigh ann 6-19 0 l 16:41: Refill(s) [place] 00 Buprenorphi Yes 150 Memori a ne 0.15 MG 6-19 microgram l Buccal Film 16:41: = 1 belem, Her melendez [Belbuca] 00 BUC, BID, 0 Refill(s) buprenorphi 2019- No 150 [place] ne 10-19 04-01 microgram Methodi (BELBUCA) 00:00: 00:00 = 1 ea, st 150 mcg 00 :00 BUC, BID, film buccal 0 film Refill(s) amitriptyli Yes 20 mg = 2 Fabian grier ne 10 mg 4-18 tab, PO, l oral tablet 15:16: Bedtime, # [place] 24 180 tab, 3 Refill(s), Pharmacy: [facility] #[id number] amitriptyli 2019- No 20 mg = 2 Fredo rosales (ELAVIL) 4-18 05-11 tab, PO, Met hodi 10 MG 00:00: 00:00 Bedtime, # st tablet 00 :00 180 tab, 3 Refill(s), Pharmacy: [facility] #[id number] CREON 2020- No TAKE ONE [place] 12,000-38,0 02 02-04 CAPSULE BY Fabian domingo 00 60,000 00:00: 00:[address] unit 00 :00 TIMES A capsule,del DAY WITH A ayed MEAL release(DR/ EC) capsule Acetaminoph Yes 1 tab, PO, Memoria en 300 MG / 1-05 TID, PRN l Codeine 03:39: Pain, X 4 Maria E nn Phosphate 00 day, # 12 30 MG Oral tab, 0 Tablet Refill(s) [Tylenol with Codeine #3] acetaminoph No Notes: Do M chavezrikevin en-codeine -05 not exceed l #3 03:38: 4gm/day of acetaminop hen. (Same as: Tylenol with Codeine # 3) Ondansetron No Notes: Abdiel leigh ann -04 (Same as: l 18:46: Zofran) MEDICATION WASTE Product Size: 4 mg Product Wasted: ___ mg Sodium No 1,000 mL, Memori a Chloride 04 1000 l 0.9% 18:46: ml/hr, [place] (Bolus) IV 00 Infuse Over: 1 hr, Route: IV, 1,000, Drug form: INJ, ONCE, Priority: STAT, Dosing Weight 61.364 kg, Start date: 05/06/17 12:46:00 RESOURCE FORESTER, Stop date: 05/06/17 12:46:00 RESOURCE FORESTER Saline No Notes: Memoria Flush 0.9% 05-06 [...] Sajja 1 tab, l 16:30: Route: PO, Agus 00 Drug form: TAB, QID-Before Meals, Dosing Weight 65, kg, Start date: 01/23/13 11:30:00, Duration: 30 day, Stop date: 02/22/13 7:30:00 tramadol 50 Yes [place] 50 mg, 1 Memoria mg oral 01-23 Sajja tab, PO, l tablet 16:09: Q8H, PRN, Wdight n 57 30 tab, as needed for pain, Substituti on Allowed, TAB tramadol 50 No [place]on 50 mg, 1 Memoria mg oral 01-23 Sajja tab, PO, l tablet 16:02: Q8H, PRN, Dwight n 01 10 tab, as needed for pain, Substituti on Allowed, TAB Yale No Weston 1 tab, Memoria 10/325 oral 01-23 Sajja Route: PO, l tablet 02:22: Drug Form: Maria E nn 00 TAB, Dosing Weight 65, kg, Q6H, PRN Pain, Start date: 01/22/13 21:22:00, Duration: 30 day, Stop date: 02/21/13 21:21:00 Omnipaque 2012- No [place]on 100 mL, Mem oria 350mg/ml 01-22 Sajja Route: l 18:12: IVP, Drug Form: SOLN, [...] Duration: 30 day, Stop date: 02/21/13 12:16:00 Yale 0 No Weston 1 tab, Memoria 10/325 oral 01-22 Sajja Route: PO, l tablet 07:14: Drug Form: Maria E nn 00 TAB, Dosing Weight 65, kg, Q4H, PRN Pain, NOW, Start date: 01/22/13 2:14:00, Duration: 30 day, Stop date: 02/21/13 2:13:00 Remeron 0 No [place] 15 mg, 1 Abdiel leigh ann 01-22 Sajja tab, l 02:00: Route: PO, Drug form: TAB, Bedtime, Dosing Weight 65, kg, Start date: 01/21/13 21:00:00, Duration: 30 day, Stop date: 02/19/13 21:00:00 hyoscyamine No [place] 0.125 mg, Memoria 01-21 Sajja [...] 30 day, Stop date: 02/20/13 15:43:00 Dilaudid No [place] 0.5 mg, Abdiel leigh ann 01-21 Sajja 0.25 mL, l 19:32: Route: IV, Drug form: INJ, ONCE, Dosing Weight 65, kg, Start date: 01/21/13 14:32:00, Stop date: 01/21/13 14:32:00 Dilaudid No [place] 0.5 mg, Abdiel leigh ann 01-21 Sajja 0.25 mL, l 14:39: Route: IV, Drug form: INJ, Q8H, Dosing Weight 65, kg, PRN as needed for pain, Start date: 01/21/13 9:39:00, Duration: 30 day, Stop date: 02/20/13 9:38:00 senna 8.6 2012- No [place]on 8.6 mg, 1 M emoria mg oral 01-21 Sajja tab, l tablet 14:39: Route: PO, Drug Form: TAB, Dosing Weight 65, kg, BID, PRN as needed for constipati on, Start date: 01/21/13 9:39:00, Duration: 30 day, Stop date: 02/20/13 9:38:00 MiraLax 2012-0 No [place]on 17 gm, 1 Abdiel leigh ann 01-21 Sajja pkt, l 14:38: Route: PO, [place] 00 Drug form: PWDR, Daily, Dosing Weight 65, kg, PRN Constipati on, Start date: 01/21/13 9:38:00, Duration: 30 day, Stop date: 02/20/13 9:37:00 tramadol 50 2012-0 No [place] 50 mg, 1 Memoria mg oral 01-21 Sajja tab, l tablet 14:38: Route: PO, Maria E nn Drug form: TAB, Q8H, Dosing Weight 65, kg, PRN as needed for pain, Start date: 01/21/13 9:38:00, Duration: 30 day, Stop date: 02/20/13 9:37:00 Protonix 2012- No [place] 40 mg, 1 Mem oria 01-21 Sajja tab, l 14:00: Route: PO, Drug form: ECTAB, Daily, Dosing Weight 65, kg, Start date: 01/21/13 9:00:00, Duration: 30 day, Stop date: 02/19/13 9:00:00 Dilaudid 2012-0 No Elyssa 0.5 mg, Abdiel leigh ann 01-21 Luis 0.25 mL, l 03:21: Route: IV, Drug form: INJ, ONCE, Dosing Weight 65, kg, PRN as needed for pain, Start date: 01/20/13 22:21:00 Zosyn 2012-0 No [place] 3.375 gm, Memor ia 01-20 Sajja Route: l 16:00: IVPB, Drug form: PDR/INJ, [id number], Start date: 01/20/13 11:00:00, Stop date: 02/19/13 2:00:00 enoxaparin 2012-0 No Elyssa 40 mg, 0.4 Memoria - Luis mL, Route: l 11:00: SUB-Q, Drug form: INJ, [id number], Dosing Weight 65, kg, Start date: 01/20/13 6:00:00, Duration: 30 day, Stop date: 02/18/13 6:00:00 NS + KCL No Elyssa 1,000 mL, Me moria 20mEq/L 01-20 Luis Rate: 125 l 1000ml 10:25: ml/hr, Agus (Premix) Infuse 1,000 mL over: 8 hr, Route: IV, Dosing Weight 65 kg, Total Volume: 1,000, Start date: 01/20/13 5:25:00, Duration: 30 day, Stop date: 02/19/13 5:24:00 Zosyn No Elyssa 3.375 gm, Memor ia 01-20 Luis Route: l 10:24: IVPB, Drug form: INJ, Q6H, Dosing Weight 65, kg, Priority: STAT, Start date: 01/20/13 5:24:00, Duration: 30 day, Stop date: 02/19/13 0:00:00 Dilaudid No [place] 0.5 mg, Abdiel leigh ann 01-20 Sajja 0.25 mL, l 10:23: Route: IV, Drug form: INJ, Q4H, Dosing Weight 65, kg, PRN as needed for pain, Start date: 01/20/13 5:23:00, Duration: 30 day, Stop date: 02/19/13 5:22:00 docusate Yes Substituti Mem oria -20 on Allowed l 10:21: [place] 15 ondansetron No Elyssa 4 mg, 2 M emoria 20 Luis mL, Route: l 10:15: IVP, Drug form: INJ, Q8H, Dosing Weight 65, kg, PRN Nausea & Vomiting, Start date: 01/20/13 5:15:00, Duration: 30 day, Stop date: 02/19/13 5:14:00 NS 1,000 mL No Peter 1,000 mL, Memoria 9-20 Hardeep Rate: 75 l 09:41: Catherine ml/hr, [place] Infuse over: 13.3 hr, Route: IV, Dosing Weight 65 kg, Total Volume: 1,000, Start date: 01/20/13 4:41:00, Duration: 30 day, Stop date: 02/19/13 4:40:00 Zosyn No [place] 3.375 gm, Memor ia 01-20 Sajja Route: l 08:51: IVPB, Drug [place] 00 form: PDR/INJ, ONCE, Dosing Weight 65, kg, Priority: STAT, Start date: 01/20/13 3:51:00, Stop date: 01/20/13 3:51:00 fentanyl No Willian 50 Memoria 9-20 Hardeep microgram, l 08:43: Catherine Route: [place] 00 IVP, ONCE, Dosing Weight 65, kg, Priority: STAT, Start date: 01/20/13 3:43:00, Stop date: 01/20/13 3:43:00 Zofran No Willian 4 mg, 2 Memoria -20 Hardeep mL, Route: l 06:32: Catherine IVP, Drug Maria E nn form: INJ, ONCE, Dosing Weight 65, kg, Priority: STAT, Start date: 01/20/13 1:32:00, Stop date: 01/20/13 1:32:00 fentanyl No Willian 50 Memoria -20 Hardeep microgram, l 04:31: Catherine Route: Agus [...] infused by Radiology Staff ONLY" NS (Bolus) No Willian 1,000 mL, M emoria IV 1000 mL -20 Hardeep Rate: l 03:38: Florin 1,000 [place] 00 ml/hr, Infuse over: 1 hr, Route: [...] blood 2019-09-22 07:44:14 153 mm[Hg] Baoto n Moravian pressure Diastolic blood 2019-09-22 07:44:14 70 mm[Hg] Baot on Moravian pressure Heart rate 2019-09-22 07:44:14 65 /min Fredo Cardosoist Body temperature 2019-09-22 07:44:14 36.78 Radha Bao [place] Respiratory rate 2019-09-22 07:44:14 18 /min [place] Oxygen saturation in 2019-09-22 07:44:14 97 /min Fredo Campbell Arterial blood by Pulse oximetry Body height 2019-09-19 10:00:00 167.6 cm Fredo Campbell Body weight 2019-09-19 10:00:00 80.241 kg Fredo Campbell BMI 2019-09-19 10:00:00 28.55 kg/m2 Fredo Campbell Systolic (mm Hg) 2019-05-05 16:51:00 Abdiel Goldsmith Diastolic (mm Hg) 2019-05-05 16:51:00 Mem orial Agus Heart Rate 2019-05-05 16:51:00 Memorial Agus Respitory Rate 2019-05-05 16:51:00 Memori al Agus Height 2019-05-05 16:51:00 165.1 cm Memorial Agus Weight 2019-05-05 16:51:00 Memorial [place] BMI Calculated 2019-05-05 16:51:00 Memori al Agus Systolic (mm Hg) 2019-03-22 17:27:00 Abdiel rial Agus Diastolic (mm Hg) 2019-03-22 17:27:00 Mem orial [place] Heart Rate 2019-03-22 17:27:00 Memorial [place] Respitory Rate 2019-03-22 17:27:00 Memori al [place] Height 2019-03-22 17:27:00 165.1 cm Memorial Agus Weight 2019-03-22 17:27:00 Memorial Agus BMI Calculated 2019-03-22 17:27:00 Memori al [place] Systolic (mm Hg) 2019-03-15 17:56:00 Abdiel rial [place] Diastolic (mm Hg) 2019-03-15 17:56:00 Mem orial Agus Heart Rate 2019-03-15 17:56:00 Memorial Agus Respitory Rate 2019-03-15 17:56:00 Memori al Agus Height 2019-03-15 17:56:00 165.1 cm Memorial [place] Weight 2019-03-15 17:56:00 Memorial Agus BMI Calculated 2019-03-15 17:56:00 Memori al [place] Systolic (mm Hg) 2018-12-21 16:44:00 Abdiel rial [place] Diastolic (mm Hg) 2018-12-21 16:44:00 Mem orial [place] Heart Rate 2018-12-21 16:44:00 Memorial [place] Respitory Rate 2018-12-21 16:44:00 Memori al [place] Height 2018-12-21 16:44:00 165.1 cm Memorial Agus Weight 2018-12-21 16:44:00 Memorial [place] BMI Calculated 2018-12-21 16:44:00 Memori al Agus BMI Calculated 2018-10-19 16:19:00 Memori al [place] Height 2018-10-19 16:19:00 167.64 cm Memorial Agus Weight 2018-10-19 16:19:00 Memorial Agus Systolic (mm Hg) 2018-10-19 16:19:00 Abdiel rial Agus Diastolic (mm Hg) 2018-10-19 16:19:00 Mem orial Agus Respitory Rate 2018-10-19 16:19:00 Memori al [place] Heart Rate 2018-10-19 16:19:00 Memorial Agus BMI Calculated 2018-09-08 19:24:00 Memori al Agus Weight 2018-09-08 19:24:00 Memorial [place] Height 2018-09-08 19:24:00 167.64 cm Memorial [place] Respitory Rate 2018-09-08 19:24:00 Memori al Agus Heart Rate 2018-09-08 19:24:00 Memorial [place] Systolic (mm Hg) 2018-09-08 19:24:00 Abdiel rial Agus Diastolic (mm Hg) 2018-09-08 19:24:00 Mem orial Agus Heart Rate 2017-05-07 04:11:00 Memorial [place] Systolic (mm Hg) 2017-05-07 04:11:00 Abdiel rial Agus Diastolic (mm Hg) 2017-05-07 04:11:00 Mem orial Agus Respitory Rate 2017-05-07 04:11:00 Memori al [place] Temperature Oral (F) 2017-05-07 04:11:00 98.0 F Memorial [place] Temperature Oral (F) 2017-05-07 02:30:00 97.7 F Memorial [place] Systolic (mm Hg) 2017-05-07 02:30:00 Abdiel rial Agus Diastolic (mm Hg) 2017-05-07 02:30:00 Mem orial [place] Heart Rate 2017-05-07 02:30:00 Memorial Agus Respitory Rate 2017-05-07 02:30:00 Memori al [place] Weight 2017-05-06 18:43:00 Memorial [place] Temperature Oral (F) 2017-05-06 18:43:00 98.2 F Memorial [place] Heart Rate 2017-05-06 18:43:00 Memorial [place] Respitory Rate 2017-05-06 18:43:00 Memori al Agus Systolic (mm Hg) 2017-05-06 18:43:00 Abdiel rial [place] Diastolic (mm Hg) 2017-05-06 18:43:00 Mem orial [place] Heart Rate 2013-01-23 12:37:00 Memorial Agus Temperature Oral (F) 2013-01-23 12:37:00 98.1 F [facility] [place] Respitory Rate 2013-01-23 12:37:00 Memori al [place] Systolic (mm Hg) 2013-01-23 12:37:00 Abdiel rial [place] Diastolic (mm Hg) 2013-01-23 12:37:00 Mem orial [place] Diastolic (mm Hg) 2013-01-23 10:13:00 Mem orial Agus Systolic (mm Hg) 2013-01-23 10:13:00 Abdiel rial [place] Heart Rate 2013-01-23 10:13:00 Memorial Agus Respitory Rate 2013-01-23 10:13:00 Memori al [place] Temperature Oral (F) 2013-01-23 10:13:00 98.4 F Memorial Agus Heart Rate 2013-01-23 00:10:00 [facility] [place] Systolic (mm Hg) 2013-01-23 00:10:00 Abdiel rial [place] Respitory Rate 2013-01-23 00:10:00 Memori al [place] Diastolic (mm Hg) 2013-01-23 00:10:00 Mem orial Agus Temperature Oral (F) 2013-01-23 00:10:00 98.5 F Memorial Agus Height 2013-01-20 14:20:00 158.4 cm Memorial Agus Height 2013-01-20 01:53:00 160.02 cm [facility] [place] Weight 2013-01-20 01:53:00 [facility] [place] Weight 2013-01-16 19:03:00 Memorial Agus Diastolic (mm Hg) 2013-01-16 19:03:00 Mem orial [place] Systolic (mm Hg) 2013-01-16 19:03:00 Abdiel rial [place] Temperature Oral (F) 2013-01-16 19:03:00 98.5 F [facility] [place] Respitory Rate 2013-01-16 19:03:00 Memori al Agus Heart Rate 2013-01-16 19:03:00 [facility] [place] Procedures Procedure Date / Time Performing Clinician Source Performed URINE CULTURE 2019-09-20 19:30:[address] odist CT CERVICAL SPINE WO 2019-09-20 18:46:[address] HEAD WO CONTRAST 2019-09-20 18:45:[address] LUMBAR SPINE WO 2019-09-20 18:43:36 Jose White M ethodist CONTRAST AMMONIA LEVEL 2019-09-20 17:36:00 Moni Holm Yoo Meth odist HC COMPLETE BLD COUNT 2019-09-20 17:36:00 Veenaimelda Moni sanon [facility]avian W/AUTO DIFF URINE DRUGS OF ABUSE 2019-09-20 17:30:00 Moni Holm Fredo Campbell SCREEN URINALYSIS SCREEN AND 2019-09-20 17:30:00 Lucy Gonzalez MICROSCOPY, WITH REFLEX TO CULTURE PROTHROMBIN TIME WITH INR 2019-09-20 17:20:00 Cora Benitablessing Campbell PARTIAL THROMBOPLASTIN 2019-09-20 17:20:00 Cora Benita Lacho stotalita [facility] TIME (PTT) BASIC METABOLIC PANEL 2019-09-20 17:20:00 Ananyamegan Benita Bao farris [facility] IONIZED CALCIUM 2019-09-20 17:20[facility] MAGNESI[facility] LEV[facility] 2019-09-20 17:20:00 [facility] [facility] Me thodist PHOSPHORUS LEVEL 2019-09-20 17:20:00 [facility] TROPONIN 2019-09-20 17:20:00 [facility] ESTIMATED GFR 2019-09-20 17:20:00 [facility] ECG 12-LEAD 2019-09-20 16:27:56 [facility] POC GLUCOSE 2019-09-20 16:25:00 Raffi Florian odist ANESTHESIA INTUBATION 2019-09-19 15:59:28 Douglas Gilmore NE AN ELECTIVE 2019-09-19 15:51:07 Douglas Gilmore ENDOTRACHEAL [...] SCOLIOSIS 2-3 2019-08-14 11:06:00 Raffi Florian on [facility] VIEWS US CAROTID DUPLEX 2019-06-13 10:00:00 Silvio Sotelo Il thodist BILATERAL CT ANGIOGRAM ABDOMINAL 2019-06-06 17:02:20 Silvio Sotelo on [facility] AORTA AND BILATERAL ILIOFEMORAL RUNOFF W WO CONTRAST POC CREATININE 2019-06-06 15:21:00 Jose Moreno ESTIMATED GFR 2019-06-06 15:21:00 Jose Moreno BASIC METABOLIC PANEL 2019-06-06 11:02:00 Silvio Sotelo [facility] COPY(IES) SENT TO: 2019-06-06 11:02:00 Silvio Sotelo ethodist COPY RECEIVED FROM: 2019-06-06 11:02:00 Silvio Sotelo [facility] ECG 12-LEAD 2019-06-06 09:55:18 Sivlio Sotelo Meth odist MRI SPINE EXTERNAL STUDY 2019-03-06 15:47:00 Raffi Florian [facility] cholecys<sup>1</sup> [facility] rmann cholecys <sup>1</sup> [facility] Plan of Care Planned Activity Planned Date Details Comments Source Future Scheduled 2019-12-02 INFLUENZA VACCINE [place] [facility] Test 00:00:00 [code = INFLUENZA VACCINE] Future Scheduled 2018 65+ PNEUMOCOCCAL [place] [facility] Test 00:00:00 VACCINE (1 of 2 - PCV13) [code = 65+ PNEUMOCOCCAL VACCINE (1 of 2 - PCV13)] Future Scheduled 2003-12-10 BREAST CANCER [facility] thodist Test 00:00:00 SCREENING [code = BREAST CANCER SCREENING] Future Scheduled 2003-12-10 COLONOSCOPY SCREENING [facility] Test 00:00:00 [code = COLONOSCOPY SCREENING] Future Scheduled 2003-12-10 SHINGLES VACCINES (#1) [place] [facility] Test 00:00:00 [code = SHINGLES VACCINES (#1)] Future Scheduled 1974 Screening for [facility] thodist Test 00:00:00 malignant neoplasm of cervix (procedure) [code = 021110397] Encounters Start End Encounter Admission Attending Care Care Encounter Source Date/Time Date/Time Type Type Clinicians Facility Department ID 2019-10-31 2019-10-31 Outpatient [facility] MED [id number] [facility] 02:06:00 02:06:00 2019-10-19 2019-10-19 Outpatient [facility] [id number] [place] 00:00:00 00:00:00 RAFFI [address] 2019-09-19 2019-09-22 Inpatient [facility] [id number] [place] 00:00:00 00:00:00 RAFFI [address] 2019-09-11 2019-09-11 Outpatient [facility] [id number] [place] 00:00:00 00:00:00 RAFFI [address] 2019-09-11 2019-09-11 Outpatient [facility] [id number] [place] 00:00:00 00:00:00 RAFFI [address] 2019-09-06 2019-09-06 Outpatient FLORIAN, [facility] [id number] [place] 00:00:00 00:00:00 RAFFI 828 Method i 2019-09-06 2019-09-06 Outpatient FLORIAN, [facility] [id number] [place] 00:00:00 00:00:00 RAFFI 475 Method i 2019-09-06 2019-09-06 Outpatient FLORIAN, [facility] [id number] [place] 00:00:00 00:00:00 RAFFI 226 Method i 2019-08-14 2019-08-14 Outpatient FLORIAN, [facility] [id number] [place] 00:00:00 00:00:00 RAFFI 894 Method i 2019-08-14 2019-08-14 Outpatient FLORIAN, [facility] [id number] [place] 00:00:00 00:00:00 RAFFI 895 Method i 2019-08-14 2019-08-14 Outpatient FLORIAN, [facility] [id number] [place] 00:00:00 00:00:00 RAFFI 630 Method i 2019-08-14 2019-08-14 Outpatient FLORIAN, [facility] [id number] [place] 00:00:00 00:00:00 RAFFI 198 Method i 2019-08-14 2019-08-14 Outpatient FLORIAN, [facility] [id number] [place] 00:00:00 00:00:00 RAFFI 226 Method i 2019-08-04 2019-08-[address] [facility] [id number] 09:15:00 09:15:00 Felice Antunez 2019-07-28 2019-07-28 [facility] [id number] 17:09:00 23:59:00 Encounter Gila [place] [id number] [place] [id number] [place] [id number] 2019-07-28 2019-07-28 Urgent Pob1, Acute [facility] [id number] 15:30:08 17:04:14 [facility] [id number] [place] 4.2.7.2.686 [facility] [id number] nal [address] 2019-07-04 2019-07-04 Outpatient MELISSA [facility] [id number] [place] 00:00:00 00:00:00 SILVIO Benjamin[address] [facility] 2019-05-05 2019-05-05 Outpatient Melvninathan, MHMISCHER MHMISCHER [id number] 11:45:00 23:59:59 Felice Tulio 2019-03-22 2019-03-22 Outpatient Suzanne, MHMISCHER MHMISCHER [id number] 11:30:00 23:59:59 Felice 08 Tulio 2019-03-15 2019-03-15 Outpatient Suzanne, MHMISCHER MHMISCHER [id number] 11:15:00 23:59:59 Felice 07 Tulio 2018-12-21 2018-12-21 Outpatient Suzanne, MHMISCHER MHMISCHER [id number] 11:30:00 23:59:59 Felice [facility] 2018-10-19 2018-10-19 Outpatient Suzanne, MHMISCHER MHMISCHER [id number] 11:45:00 23:59:59 Felice 05 Tulio 2018-09-08 2018-09-08 Outpatient Suzanne, MHMISCHER MHMISCHER [id number] 14:30:00 23:59:59 Felice 04 [facility] 2018-08-18 2018-08-19 Outpatient MHMISCHER MHMISCHER [id number] 10:14:00 23:59:59 2017-05-06 2017-05-06 Outpatient Linh, JOSELUISPL [facility] [id number] 12:16:00 22:13:00 Bryan Alfred Results Test Description Test Time Test Comments Results Result Comments Source Surgical pathology request 2019-09-21 17:07:26 Test Item Value Reference Range Interpretation Comme nts Case number (test code = 8386092) [id number] Surgical pathology report (test code = See link below for PDF Lab R eport 0220) Result status (test code = 5056861) This is Final Report for [id number] 5282-3 [place] [facility] 12 biat9686-80-42 15:18:08 Test Item Value Reference Range Interpretation Comments Ventricular rate (test 88 code = 253) Atrial rate (test code 88 = 255) NE interval (test code 164 = 266) QRSD [...] was found- Fredo Becerra drugs of abuse mzhwly7401-74-71 22:23:33 Test Item Value Reference Interpretation Comments Range Amphetamine screen, Negative urine (test code = 3349-8) Barbiturate screen, Negative urine (test code = 3377-9) Benzodiazepine Negative screen, urine (test code = 3390-2) Cocaine screen, Negative urine (test code = 3397-7) Methadone Negative metabolite (EDDP), urine (test code = 18866-4) Opiates screen, Negative urine (test code = 3879-4) Oxycodone screen, Positive A urine (test code = 25535-7) Phencyclidine Negative screen, urine (test code = 3936-2) Tricyclic screen, Negative urine (test code = 43567-1) Cannabinoid screen, Negative Drug scr een minimum [...] ired. Lab Interpretation Abnormal (test code = 49013-8) Fredo MethodistUrinalysis screen and microscopy, with reflex to culture 2019-09-20 20:48:08 Test Item Value Reference Range Interpretation Comments Specimen site (test code = Clean catch 3835311) Color, UA (test code = 5778-6) Straw Appearance, UA (test code = Clear 5767-9) Specific gravity, UA (test code = 1.003 1.001-1.035 5811-5) pH, UA (test code = 5803-2) 7.0 5.0-8.5 Protein, UA (test code = 74961-6) Negative Negative Glucose, UA (test code = 01700-3) Negative Negative Ketones, UA (test code = 2514-8) Negative Negative Bilirubin, UA (test code = Negative Negative 5770-3) Blood, UA (test code = 5794-3) Negative Negative Nitrite, UA (test code = 5802-4) Negative Negative Urobilinogen, UA (test code = <2.0 <2.0 96594-3) Leukocyte esterase, UA (test code Negative Negative = 5799-2) Epithelial cells, UA (test code = 5 /HPF 5787-7) WBC, UA (test code = 5821-4) 1 0- 4 /HPF RBC, UA (test code = 44061-5) 1 0- 5 /HPF Bacteria, UA (test code = Few None seen 94906-2) Yeast, UA (test code = 64203-1) None seen Yeast with pseudohyphae, UA (test None seen code = 27988-8) [facility] nqssrsn6450-34-60 20:45:55 Test Item Value Reference Range Interpretation Comments Urine culture (test SEE COMMENT Bacteriu leigh ann screen code = 3526853) negative. Fredo Wallace Lumbar Spine Wo Bquwmpnu5315-17-84 19:17:16Hm Interface, Radiology Results 09/20/2019 7:20 PM [...] canal narrowing.Stable spondylotic foraminal narrowing at L5-S1 bilaterally.HMRM-WPHYRRSHouston MethodistCT Cervical Spine Wo Mhwnbwun1263-32-24 19:13:36Hm Interface, Radiology Results 09/20/2019 7:16 PM [...] canal narrowing.IMPRESSION:No acute fractures of the cervical spine.[facility]-WPHYRRSHouston MethodistAmmonia level 2019-09-20 19:03:26 Test Item Value Reference Range Interpretation Comments Ammonia (test code = 1841-6) 19 umol/L 11-51 [place] MethodistCT Head Wo Ygnabxga6436-94-87 18:49:46Hm Interface, Radiology Results 09/20/2019 6:52 PM [...] air cells are clear.IMPRESSION:No acute intracranial abnormality identified.[id number] MethodistIonized lfyikvg3557-98-77 18:34:40 Test Item Value Reference Range Interpretation Comments pH (test code = 2753-2) 7.52 Ionized calcium (test code = 1.13 mmol/L 1.11-1.32 ) [place] SndihboecKczuhxgy6348-24-88 18:28:56 Test Item Value Reference Range Interpretation Comments Troponin (test code 0.013 ng/mL 0-0.04 In patie nts suspected = 91891-9) of having a alpa cardial infarction, eder [...] decreased by le ss than 0.020 ng/mL Fredo MethodistBasic metabolic otdgd4320-15-38 18:27:26 Test Item Value Reference Range Interpretation Comments Sodium (test code = 2951-2) 145 135- 148 mEq/L Potassium (test code = 2823-3) 3.5 3.5- 5.0 mEq/L Chloride (test code = 5-0) 105 98- 112 mEq/L CO2 (test code = 2027-) 23 24- 31 mEq/L L Anion gap (test code = 13109-1) 17@ANIO 7- 15 mEq/L H BUN (test code = 3094-0) 9 mg/dL 8-23 Creatinine (test code = 2160-0) 0.76 mg/dL 0.5-0.9 Glucose (test code = 2345-7) 142 mg/dL 65-99 H Calcium (test code = 60394-7) 9.5 mg/dL 8.8-10.2 Lab Interpretation (test code = Abnormal 87924-4) Fredo MethodistMagnesium brzlp2715-56-80 18:27:26 Test Item Value Reference Range Interpretation Comments Magnesium (test code = 31682-5) 1.8 mg/dL 1.6-2.4 Yoo MethodistEstimated ULS7850-18-66 18:27:25 Test Item Value Reference Range Interpretation Comments Estimated GFR (test 82 mL/min/1.73 m2 [facility] code = 5488) InterpretationG 1 >=90 Normal or highG2 60-89 Mildly cdmgjikboT6n 45-59 Mildly to mode rately trctooatdM0b 30-44 Moderately to severely decreasedG4 15-29 Severely decre asedG5 <15 Kidn ey failureThe eGFR was calculated adam killian the Chronic Kidney Disease Epidemiology Co llaboration (CKD-EPI) equat ion. Interpretation is based on recommendations of the National Kidney Foundation-Kidn ey Disease Outcomes Qualit y Initiative (NKF-KDOQI) pub lished in 2014. Yoo MethodistPhosphorus baqql9443-52-08 18:27:24 Test Item Value Reference Range Interpretation Comments Phosphorus (test code = 2777-1) 2.6 mg/dL 2.4-4.5 [place] MethodistPartial thromboplastin time, zasnjtnrl3241-10-01 18:15:11 Test Item Value Reference Range Interpretation Comments PTT (test code = 24.7 23.0- 36.0 [place] [address]-5) unfractionated heparin is61.0-112.0 se conds which corresponds to Anti-Xa0.3-0.7 U/ml. [place] MethodistProthrombin time with YDK3039-37-60 18:13:49 Test Item Value Reference Range Interpretation Comments Prothrombin time (test 13.3 11.5- 14.5 sec code = 5902-2) INR (test code = 1.0 The Interna tional 08795-0) Normalized Rati o (INR) is a therapeutic m onitoring tool for patien ts who are stable on oral anticoagulant t herapy. An INR of 2.0-3.0 is suggested for d eep vein thrombosis/pulm onary embolism. [facility] with platelet and trymbipapgzh4011-51-88 18:04:23 Test Item Value Reference Range Interpretation Comments WBC (test code = 11634-3) 13.52 4.50- 11.00 k/uL H RBC (test code = 84990-8) 4.10 m/uL 4.2-5.5 L HGB (test code = 718-7) 12.9 g/dL 12-16 HCT (test code = 4544-3) 39.3 % 37-47 MCV (test code = 787-2) 95.9 fL 82-100 MCH (test code = 785-6) 31.5 pg 27-34 MCHC (test code = 786-4) 32.8 g/dL 31-37 RDW - SD (test code = 42.5 fL 37-55 68084-8) MPV (test code = 80878-1) 10.4 fL 8.8-13.2 Platelet count (test code 229 150- 400 k/uL = 74118-1) Nucleated RBC (test code 0.00 /100 WBC = 03809-0) Neutrophils (test code = 78.5 % 39-69 H 73095-8) Lymphocytes (test code = 11.5 % 25-45 L 56308-0) Monocytes (test code = 9.4 % 0-10 70045-8) Eosinophils (test code = 0.0 % 0-5 86287-6) Basophils (test code = 0.2 % 0-1 46938-9) Immature granulocytes 0.4 % 0-1 "Immat ure (test code = 88416-5) granul ocytes" (promyelocytes, myelocytes, metamyelocytes) Lab Interpretation (test Abnormal code = 89608-2) [facility] cagengo6666-68-37 16:26:11 Test Item Value Reference Range Interpretation Comments POC glucose (test code = 133 mg/dL 65-99 H Ope rator Name: Zion 78159-9) HeidiDevice ID: [id number] able: [facility] Notified process mechanic Interpretation (test Abnormal code = 70390-7) [facility] StationSrbpjroawXfnsjc2625-63-05 15:59:28Douglas Gilmore MD 09/19/2019 4:00 PMAirwayPerformed by: Douglas Gilmore MDAuthorized by: Douglas Gilmore MD [facility] HcnrsbkzdCvvzun6277-87-85 15:51:07 Douglas Gilmore MD 09/19/2019 3:59 PMAirwayDate/Time: [...] of Attempts at Approach: 2 Yoo MethodistArterial miqp6775-92-66 15:50:10Douglas Gilmore MD 09/19/2019 3:51 PMArterial linePerformed [...] tolerated the procedure well with no immediate complicationsHoulahey hospital & medical center MethodistXR Lumbar Spine 1 Xz2415-23-74 15:48:20 Hm Interface, Radiology Results 09/19/2019 3:51 PM CDTEXAMINATION: XR LUMBAR SPINE 1 VWCLINICAL HISTORY: Z98.890 Other specified postprocedural statesCOMPARISON: Lumbar radiograph 08/14/2019IMPRESSION:Single lateral intraoperative radiograph of the lumbar spine in bone and soft tissue filters demonstrates a posterior approach surgical instrument tip directed towards the L4-L5 level with tip projecting along the inferior aspect of the L4 spinous process.[id number] MethodistCOVID BioRef (NCOVB)2019-09-13 13:20:03 Test Item Value Reference Range Interpretation Comments COVID BioRef Not Detected Not Detected Source Nasophar yngeal (NCOVB) SwabTesting per formed at (test code = [address] [facility] [facility] [address]-8) [place] [address] NOTE: Ple ase consider re-collection o f a new specimen, if cl inically indicated. NOTE : The COVID-19 assay has been cleared by the U.S. Food and DrugAdministrat ion under the Emergency Use A uthorization (EUA). [employer] is designated as a high complexity labo [...] under the Emergency Use A uthorization (EUA). [employer] is designated as a high complexi ty laboratory by the Clinical Laboratory Improvement Nina ndments of 1987(CLIA) and is qualified to perform this te st. ASSAY INFORMATION: Re al Time RT-PCR (Reported 09/12 12:29) Fredo CardosoistComprehensive metabolic proqa4852-85-97 13:47:39 Test Item Value Reference Range Interpretation Comments Sodium (test code = 142 135- 148 mEq/L 2951-2) Potassium (test code = 4.0 3.5- 5.0 mEq/L 2823-3) Chloride (test code = 100 98- 112 mEq/L 2074-0) CO2 (test code = 2027-9) 26 24- 31 mEq/L Anion gap (test code = 16@ANIO 7- 15 mEq/L H 32084-8) BUN (test code = 3094-0) 26 mg/dL 8-23 H Creatinine (test code = 0.90 mg/dL 0.5-0.9 2160-0) Glucose (test code = 111 mg/dL 65-99 H 2345-7) Calcium (test code = 10.5 mg/dL 8.8-10.2 H 10949-7) Protein (test code = 7.6 g/dL 6.3-8.3 -[place] n 2885-2) 4.6-7.0 g/dL1 week 4.4-7 .6 g/dL7 months-1y ear 5.1-7 .3 g/dL1-2 years 5.6-7 .5 g/dL>3 years 6.0-8 .0 g/lF67-041 6.3-8 .3 g/dL Albumin (test code = 4.0 g/dL 3.5-5 1751-7) A/G ratio (test code = 1.1 0.7-3.8 1759-0) Alkaline phosphatase 82 U/L 35-104 (test code = 6768-6) AST (test code = 1920-8) 20 U/L 10-35 ALT (test code = 1742-6) 17 U/L 5-50 Total bilirubin (test 0.3 mg/dL 0-1.2 code = 1974-2) Lab Interpretation (test Abnormal code = 58807-7) Fredo MethodistIR Myelogram 2+Reg Incl Inj W S&H4446-09-69 14:46:39Hm Interface, Radiology Results 09/08/2019 2:49 PM [...] abnormalities.Mild blunting of the left C6 root sleeve.[facility]-[id number] MethodistCT Post Myelogram Techirqa8239-70-78 12:41:37Hm Interface, Radiology Results 09/06/2019 12:44 PM [...] correlation for right C6 radiculopathy is recommended. [facility]-[id number] MethodistCT Post Myelogram Dvazuf7229-01-44 12:39:59Addendum by Ally Leong MD on 09/06/2019 5:14 PM ADDENDUM #1 Correctionof typographical error Foraminal protrusion at L3-4 on the left with impingement on the left L3 nerve rootHm Interface, Radiology Results [facility] 09/06/2019 12:43 PM CDTEXAMINATION: CT POST MYELOGRAM [...] impingement on the right L3 nerve root. [facility]-[id number] [facility] Spine External Ahhmf8642-94-64 12:29:05This exam was not acquired at a [facility] facility and has not been interpreted by a [facility] Provider. The exam was imported into our imaging system.[place] MethodistXR Lumbar Spine Complete W Flex and Qfm6524-58-87 11:34:25Hm Interface, Radiology Results 08/14/2019 11:37 AM [...] the right upper quadrant.IMPRESSION:Degenerative changes without acute abnormality.[facility]-[id number] and approved by radiology re sident/fellow: Cari Thomson M.D.I, Marilyn Charles MD, personally reviewed the images and resident's/fellow's findings and agree with the final report.[place] MethodistXR Spine Scoliosos 2-3 Swbmq1426-40-24 11:11:25Hm Interface, Radiology Results 08/14/2019 11:14 AM [...] anterior plate and screw fixation and interbody graft.[id number] MethodistCOPY(IES) SENT TO:2019-06-07 05:40:00Copies/mLComment: TEVIN CARRASCO CARDIO [address] [facility] [address] [place] [address] Critical access hospital MethodistCOPY RECEIVED FROM:2019-06-07 05:40:00Copy received from:Comment: TEVIN [address] [facility] [address] [place] [address] Critical access hospital UcbxbiohrYIPNZGOUDR9482-25-51 18:52:002 [facility] QhcxgbdZXRPGNHAIV3784-33-87 18:52:71661.20Metnrial HermannHEMATOLOGY 2019-03-15 18:52:0062.60Memorial PzdanlmPWEYTOHUWG7552-22-60 18:52:009Memorial VktcwjlVCCZMMZJQC9126-11-40 18:52:00 Test Item Value Reference Range Interpretation Comments Varicella IgM (test code = Varicella 0.69 1 IgM) [facility]annUR[facility] AND DGOCA6900-80-32 21:21:00Negative (05/06/17 3:21 PM) [facility] PRRWC3647-36-63 21:21:00Negative (05/06/17 3:21 PM) [facility] GBUCO0308-46-22 21:21:00Negative *NA*(05/06/17 3:21 PM) [facility] SRWIK2163-09-94 21:21:00Negative (05/06/17 3:21 PM) [facility] JIVWG0973-98-03 21:21:001[facility] HermannURINE AND YVURG1173-58-21 21:21:002[facility]annURINE AND CMSDD7167-45-42 21:21:00 Yellow *NA*(05/06/17 3:21 PM)[facility] AND VGYGW3621-37-08 21:21:00 1.019Mem[facility] HermannURINE AND VCISK4219-21-25 21:21:005.0[facility]annURINE AND IGEDY8853-43-06 21:21:00Slight *ABN*(05/06/17 3:21 PM)Memorial HermannCHEM BOODN3170-26-51 20:57:54327Jxtjgmay HermannCHEM OJXLB3692-57-16 20:57:0042 Memorial WunzyrdMIKDIKQBTXHH1079-15-09 20:57:12945Hhjdwvgj HermannELECTROLYTES 2017-05-06 20:57:83524Dtjiyxgo RqskxaoWCNCFUUIYBXQ9382-97-64 20:57:004.0Memorial RwbvzraPDZXACOZIDNO6408-89-69 20:57:0041Memorial RcokjejHFGEGVUWJJES8340-92-14 20:57:000.7Memorial AlxzsvnDJWSQARFIRRK8488-76-35 20:57:0082[facility] UVWATRHDZHIK7112-21-15 20:57:001.0Memorial AxivjvoHVMRYODZRRQC2099-49-18 20:57:0019Memorial IxvzbwvCOODNAQDWIXC3414-79-30 20:57:0015[facility] EWUAPRBXCTSB9027-47-96 20:57:004.1Memorial RtmbsosLOXVAQIQTJOX3110-18-20 20:57:004.3Memorial DtywsahYUDJYEBRJFSB3945-16-72 20:57:0018Mem[facility] Agus JTTPWPCVKRII4838-98-66 20:57:009.4Memorial XktinzqRQNXDOPBMGES2191-94-41 20:57:008.4Memorial JipgdarXFWOCEHRFDTR9740-22-95 20:57:0027[facility] TTQIGVLRPJNM0795-48-74 20:57:0016.0Memorial IurktcuEXILMRTUYHAG4762-71-40 20:57:001.36Memorial GijsaczSXIZEMRYQIVM6900-90-37 20:57:0024[facility] DXOVMTCIRAUH1818-02-41 20:57:0077Memorial ZohpbykNJHJSOREWI2670-41-06 20:57:00 2.3Memorial CndkbosOGVKUIGLXO6448-94-88 20:57:000.8Memorial HermannHEMATOLOGY 2017-05-06 20:57:000.2Memorial VydcbwtTQTUZGKCRH3134-22-43 20:57:000.4Memorial XwgfltpNFJMFYSUDE3083-52-44 20:57:006.4Memorial LfkusbmWFVHCGHLKS7535-63-93 20:57:0024.4Memorial LlptneaKUVELKYFMH6880-65-57 20:57:008.1[facility] MNDTBKGUUS9063-94-19 20:57:0066.9Memorial NljkkatAINBXBPYSI2235-15-72 20:57:00 8.4Memorial XksijoyQKUTSOJFVJ0214-57-55 20:57:44224Utwosjbb HermannHEMATOLOGY 2017-05-06 20:57:00 Test Item Value Reference Range Interpretation Comments MCH (test code = MCH) 32.4 pg 27.0-31.0 Memorial MnigggbOJKDEXYJMU2904-14-20 20:57:0012.5Memorial HermannHEMATOLOGY 2017-05-06 20:57:0091.5Memorial RgvkrcpNJANPKTUTE1307-92-28 20:57:0035.4Memorial BtptustUGHFHAHPZN5329-35-82 20:57:0042.5Memorial LqiqbvjOZXCFSLTSO2342-94-15 20:57:009.6Memorial NkkprhcPXBZCDPTAB0103-61-74 20:57:0015.1[facility] BAMCAHAVOF0454-21-13 20:57:004.65Memorial WlwxfgrPPUSBFIRP3291-11-00 05:00:0095 Memorial JyxmofrQJCARVFWE8361-71-70 05:00:0012.9Memorial HermannCHEMISTRY 2013-01-23 05:00:008.5Memorial JncpoczSFJJZKHKG0755-52-31 05:00:0075Memorial VwwbpotKYUZCGZHE3849-83-59 05:00:0028Memorial SxzjbkjTGXUSAJLT2029-64-39 05:00:72766Sjzahcwt AdwipvpSQFFEIWWM0854-97-56 05:00:003.9[facility] Agus KQVVCJEJH5333-12-55 05:00:005Memorial UawathlHZKVYXJNY8816-43-41 05:00:000.7 Memorial PriusadWRNBUHNTX5490-17-55 05:00:05818Tgkdvgjl HermannHEMATOLOGY 2013-01-23 05:00:008.4Memorial WluzwhmGXVCWTBKMM7551-23-32 05:00:003.95Memorial IbkyzxhDPTNJGDKMU0287-40-87 05:00:005.7Memorial ShtbkraAZLXEYIGAD8475-60-56 05:00:00 Test Item Value Reference Range Interpretation Comments MCH (test code = MCH) 33.0 pg 27.0-31.0 H Memorial BbrzjbgTMWXQHRCOQ3629-86-20 05:00:0037.4[facility]HEMATOLOGY 2013-01-23 05:00:0013.0[facility] MxucekcYEOQIXSYVQ6237-49-44 05:00:0094.8[facility] BhjijlvJTQRWRQMNG7436-41-25 05:00:0012.6[facility] RashpsbGQEMCZTUHL1951-29-81 05:00:0034.8[facility] HomqpeaMTORJEIWPP2055-76-24 05:00:47287Cwdjqqhu Alzada GQESLEBZCZ5863-08-43 05:00:0050.9[facility] HdpaikzIAEAIFMGQB1602-80-32 05:00:00 36.5[facility] HypyfnjVEMSUIETRE3104-33-45 05:00:0010.0[facility]annHEMATOLOGY 2013-01-23 05:00:000.6[facility] NaoaznkFBBQEQRHNP3602-29-58 05:00:000.1[facility] YinosbkCKYQMQPSCH2544-30-73 05:00:002.9[facility] PftsoicRMVNEPRNJW7567-95-17 05:00:002.1[facility] CpbwsorTZKTSOEMSC2898-96-42 05:00:002.2[facility] VIWANWFLGH4476-55-21 05:00:000.4[facility] HzeycraCZOAGTDJJ0250-63-42 08:45:20336 [facility] UldbthlQPBYZUBUW3112-90-81 08:45:003.1[facility]annCHEMISTRY 2013-01-22 08:45:001.0[facility] AnhcdzsHDTREMHQU5056-66-08 08:45:004[facility] KfhvkdjHYBTXMWEH8300-87-48 08:45:0011.9[facility] MhjaxvtXKKJQLMCA8097-80-47 08:45:0095[facility] RtjbexdIUCQTVBDY3604-50-68 08:45:0016[facility] JGNZCFGRE5647-28-60 08:45:0026[facility] OnuiwyqVMPTPKPXJ3886-37-16 08:45:008.0 [facility] LzltvixRRCVGGMWD9417-76-78 08:45:006.1[facility]annCHEMISTRY 2013-01-22 08:45:000.5[facility] RotbgsmRONYRSFUZ0816-59-35 08:45:000.7[facility] TawtkalYBOJEBKVP6642-21-94 08:45:72981Vpyjxnra CehqfppFEASVOSVN1058-14-13 08:45:85572Wevmmbjk UnujogeLIXLYPTDT3232-36-23 08:45:003.9[facility] GXTJIFIOG1524-35-34 08:45:0020[facility] PnbnfioCSJJYHHKX7342-79-35 08:45:003 [facility] LvgfhznNDVKCWCHQ2252-03-30 08:45:25371Cowtsceu HermannCHEMISTRY 2013-01-22 08:45:0074[facility] RdqcnpsSPJQLOTWE7504-85-88 08:45:003.0[facility] AykzmslRKKSBGFMCV0620-17-68 08:45:000.1[facility] MpzfquvWLTXXDCWAQ9457-56-01 08:45:000.3[facility] ChtwhptLCDHMTUVDG7499-40-00 08:45:002.8[facility] VWNWEYYTAV5943-40-38 08:45:002.0[facility] TrdbugsJFNLBNNEQU8338-45-94 08:45:000.6 [facility] RfhmkicDKUSKYASXL5720-94-07 08:45:0035.5[facility] HermannHEMATOLOGY 2013-01-22 08:45:0011.0[facility] OghtynqKZOGOIRUFW5435-80-85 08:45:002.1[facility] NqsbxasSCLKCJBVKR1570-54-21 08:45:0051.1[facility] ZfmqryjKQOSPWVBTI4445-82-78 08:45:0015[facility] EmhudpoUHRTAVNWQC9419-46-09 08:45:0034.6[facility] KIFIEFRVCV1895-46-56 08:45:00 Test Item Value Reference Range Interpretation Comments MCH (test code = MCH) 32.8 pg 27.0-31.0 H [facility] GxmngajKIYIGRLGBI2189-67-63 08:45:0012.3[facility] HermannHEMATOLOGY 2013-01-22 08:45:008.2[facility] KfeqnfmLOZZUNTNCV4102-75-87 08:45:55742Ytderlzn DeabwjcPFHNPIOKZR9981-82-61 08:45:003.63[facility] GhapqiqTDGORXZFFX2723-79-04 08:45:005.5[facility] XrbjoigGIDZBCHPNG2898-99-59 08:45:0011.9[facility] UYWKTYOBOZ9255-20-93 08:45:0034.5[facility] NyfliotGOXVUGVOGH8664-17-63 08:45:00 94.9[facility] HermannTUMOR CWDRUDP6069-27-42 08:45:007.0[facility] HermannCHEMISTRY 2013-01-21 16:51:550.9[facility] HrwfsgzRZAAAQKII0887-52-81 16:51:0095[facility] UdtgkxhZQNJJIDLJ7983-67-63 16:51:004.1[facility] IlzsblcSHONEKLHN8825-65-98 16:51:47203Dmqsvrqq BunhmqrATIUBRNBE5405-46-48 16:51:96407Rfywhvxk Agus CUPDGBOXM2347-42-31 16:51:09377Gzcncenp ClvbxssBCRVSZGUZ6124-34-20 16:51:007 [facility] WaaakacYQGKMRTQD4436-77-60 16:51:0025[facility] HermannCHEMISTRY 2013-01-21 16:51:008.2[facility] PwenbqqMDFNAVULU6070-07-65 16:51:000.7[facility] MpxjkobHXOEZQYAO0594-67-14 16:51:0012.1[facility] KkqvdlcSPDIRGSKS0610-10-34 16:51:001.38[facility] TptcgygZWJXDXSHS6640-98-32 07:55:001.8[facility] QGRYDRQID0706-90-92 07:55:65706Quozrjji XueustyVVLABFIDK6272-05-49 07:55:0066 [facility] GmdqvcrERXIBMJML6574-51-26 07:55:0018[facility] HermannCHEMISTRY 2013-01-21 07:55:002.9[facility] MmbajrxKBOHZUXEN1476-67-62 07:55:0024[facility] TuedecnECNEBPPNJ0393-44-26 07:55:000.7[facility] DfmsshyADNSHYBIH0577-18-30 07:55:005.7[facility] HrpsophHMUFCZSAG6551-09-63 07:55:0022[facility] KRSNFCVMM0510-33-62 07:55:001.0[facility] NpeczydZDUWUWOTT9756-42-28 07:55:002.8 [facility] PcbrgjvUIOBJADJEY0881-85-36 07:55:008.6[facility] HermannHEMATOLOGY 2013-01-21 07:55:0023.8[facility] MbsswnmBKYQRWTRJD8831-39-78 07:55:000.6[facility] EdbamsgWLPUWNLUPO6776-66-65 07:55:0066.4[facility] GhbwwggCIWNZGFIDU7252-94-50 07:55:000.8[facility] XhnruheYSHJXWHYNW2815-61-09 07:55:002.1[facility] OEXKAVDKEI2999-22-79 07:55:000.6[facility] NjccfctWPMNEXKHQM4800-33-73 07:55:005.9 [facility] JsvssciMYWBCPXKEZ0335-11-46 07:55:000.1[facility] HermannHEMATOLOGY 2013-01-21 07:55:000.1[facility] BnffskbKLIXCXAZHK6481-64-41 07:55:0012.7[facility] WmqewdmVELVNVAZTW3938-46-78 07:55:0034.1[facility] DxxaxrwDKKIMBQDGD4676-97-70 07:55:0095.7[facility] KwmktufUVMZHXXGOU9907-99-70 07:55:0011.5[facility] WCFMBQPGGJ6071-86-95 07:55:0033.6[facility] HpmtdhuCLWKNWCDVK2359-36-86 07:55:00 Test Item Value Reference Range Interpretation Comments MCH (test code = MCH) 32.6 pg 27.0-31.0 H [facility] LlyefwoGWXYDUMZFL9187-79-59 07:55:008.5[facility] HermannHEMATOLOGY 2013-01-21 07:55:11398Mtkmmhsv UjhmvbzEGBBDVWBAU3782-39-23 07:55:003.52[facility] EjbjoruJLHULQDDPO7479-92-44 07:55:008.9[facility] PrjduleWAQSYBZNRH3054-89-71 04:30:05Performed (01/19/2013 23:30:05)[facility]WbsmhseRMWGCYBYMB6811-53-65 04:30:05None Seen (01/19/2013 23:30:05)[facility] SystemXuzpsigBEOYWWLKEF8169-93-34 04:30:05Few /LPF (01/19/2013 23:30:05)[facility] SystemTbhdyqbLDYOZJIBEN6112-26-52 04:30:05None Seen (01/19/2013 23:30:05)[facility] SystemSgqwpryRZCVITNMZS3628-25-95 04:30:05Negative (01/19/2013 23:30:05)[facility] SystemLkwpfotBLFZBOTLON5441-43-27 04:30:050.2[facility] DhvjryeQLJHCUYEMQ6321-86-84 04:30:05Negative *NA*(01/19/2013 23:30:05)[facility] SystemQahfapiQMCJIEKDDW3402-03-80 04:30:05Negative (01/19/2013 23:30:05)[facility] SystemSxnxunzOXHLMTMOOY4474-51-98 04:30:05Negative (01/19/2013 23:30:05)[facility] SystemSfwbidiAHMBFVTWGU0495-83-86 04:30:05Negative mg/dL (01/19/2013 23:30:05)[facility] SystemIghysvlWXWTSUCQNU9467-83-75 04:30:05Negative mg/dL *NA*(01/19/2013 23:30:05)[facility] SystemRwfmndkMIFXOHRPMT8544-46-35 04:30:05 Test Item Value Reference Range Interpretation Comments UA pH (test code = UA pH) 8.0 1 5.0-8.0 N [facility] SystemKyybbybSOHVWJAZYK9293-55-29 04:30:05Negative mg/dL (01/19/2013 23:30:05)[facility]ilhwxpNWWQBWFXGA3793-57-25 04:30:05Clear (01/19/2013 23:30:05)[facility] CenterJcfuhzuXGEJRMFXVU7848-08-79 04:30:05 Test Item Value Reference Range Interpretation Comments UA Spec Grav (test code = UA Spec 1.015 1 N Grav) [facility] SystemXzcrryoHRHMVYQBMV2384-07-52 04:30:05Yellow *NA*(01/19/2013 23:30:05) [facility] OjwyjrkTVWZBDJRR8132-75-22 03:30:57558Qkphavsy HermannCHEMISTRY 2013-01-20 03:30:007.3[facility] GvdzxqiNIRVDWJMX7640-64-06 03:30:000.5[facility] MxkzvxdAGMEJCKAE0445-02-60 03:30:003.8[facility] DsmhewiMZVSATVKU7278-56-73 03:30:0030[facility] EhjkhnkYSXWYTXYL5787-21-87 03:30:0081[facility] FYHIJFQII2319-54-14 03:30:000.1[facility] FzqdbgrYPSVSAJFR3075-15-66 03:30:0023 [facility] BdlvuxkLJGTAYFDE0762-44-20 03:30:003.5[facility] HermannCHEMISTRY 2013-01-20 03:30:001.1[facility] CqcwqmcXFQURZGAX5680-88-60 03:30:000.4[facility] LguvvnnRAFEBTFCLG6831-69-97 03:30:000.1[facility]
--- NOTE | 2019-11-02 12:42 | RAD REPORT ---
EXAM DESCRIPTION: CT - Chest For Pe Angio - 11/02/2019 12:30 pm CLINICAL HISTORY: Chest pain. shortness of breath COMPARISON: Chest For Pe Angio dated 10/30/2019; Abdomen Pelvis W Contrast dated 11/02/2019 TECHNIQUE: CT angiogram of the pulmonary arteries was performed with MIP. All CT scans are performed using dose optimization technique as appropriate and may include automated exposure control or mA/KV adjustment according to patient size. FINDINGS: The previously described pulmonary embolism in the with posterior right lower lobe and rig ht middle lobe pulmonary arterial tree remains present although slightly reduced in size since compar ative study. No new pulmonary embolism is seen. No acute aortic finding demonstrated. Patchy opacity in the superior segment right lower lobe is again seen, unchanged. A small right pleur al effusion has developed. A mild interstitial pulmonary edema pattern is present. No concerning bony finding. IMPRESSION: Fractional decrease in size of right-sided pulmonary emboli since prior study. No significant change in patchy opacity in the superior segment right lower lobe which may represent pulmonary hemorrhage or infarct. Mild interstitial pulmonary edema seen with development of a small right pleural effusion.
--- NOTE | 2019-11-02 12:51 | RAD REPORT ---
EXAM DESCRIPTION: CTAbdomen Pelvis W Contrast - 11/02/2019 12:30 pm CLINICAL HISTORY: Abdominal pain. PAIN COMPARISON: Abdomen Pelvis W Contrast dated 09/30/2017; Abdomen Pelvis W Contrast dated 08/18/2017 ; Abdomen Pelvis W Contrast dated 04/06/2017; CT ABD PELVIS W CONTRAST dated 02/24/2012 TECHNIQUE: Biphasic CT imaging of the abdomen and pelvis was performed with 100 ml non-ionic IV cont rast. All CT scans are performed using dose optimization technique as appropriate and may include automated exposure control or mA/KV adjustment according to patient size. FINDINGS: Mild linear atelectasis is present in the left lung base. A small right pleural effusion.C holecystectomy. The liver, spleen, pancreas, adrenal glands and kidneys are within normal limits. No bowel obstruction, free air, free fluid or abscess. The appendix is not identified as a discrete structure, however, no secondary findings of appendicitis are identified. No evidence of significan t lymphadenopathy. No suspicious bony findings. IMPRESSION: No acute intra-abdominal or pelvic finding.
--- NOTE | 2019-11-02 13:09 | EDPHYS ---
Physician Documentation [facility] Name: Haley Porter Age: 63 yrs Sex: Female : 1955 Arrival Date: 11/02/2019 Time: 09:48 Bed 8 Private MD: Rob Alonzo ED Physician Zain Sanchez HPI: 11/01 10:40 This 63 yrs old Female presents to ER via Ambulatory with complaints of jmm Breathing Difficulty, Pain, Blood Clots. 10:40 The patient has shortness of breath at rest, with light activity. Onset: The jmm symptoms/episode began/occurred gradually, 2 week(s) ago. Duration: The symptoms are continuous. The patient's shortness of breath is aggravated by light activity. Associated signs and symptoms: Pertinent positives: chest pain. This is a 63 year old female with a history of htn that presents to the ED with complaints of worsening chest pain, shortness of breath beginning approx 2 weeks ago. Patient was evaluated in the ED on 10/29 and diagnosed with PE and DVT. Patient was discharged after transfer with rx for eliquis. Patient states today she developed increased shortness of breath. . Historical: - Allergies: 10:16 Morphine; jl7 10:16 Oral steroids; jl7 10:16 Valium; jl7 10:16 Versed; jl7 - Home Meds: 10:16 Eliquis oral oral [Active]; jl7 - PMHx: 10:16 Anxiety; Hypertension; Pancreatitis; TMJ; jl7 - PSHx: 10:16 Cholecystectomy; jl7 - Immunization history:: Adult Immunizations not up to date. - Social history:: Smoking status: Patient denies any tobacco usage or history of. ROS: 10:40 Abdomen/GI: Negative for abdominal pain, nausea, vomiting, diarrhea, and constipation, jmm Back: Negative for injury and pain. 10:40 Cardiovascular: Positive for chest pain. 10:40 Respiratory: Positive for shortness of breath. 10:40 All other systems are negative. Exam: 10:40 Constitutional: This is a well developed, well nourished patient who is awake, alert, jmm and in no acute distress. Head/Face: atraumatic. Eyes: EOMI, no conjunctival erythema appreciated ENT: Moist Mucus Membranes Neck: Trachea midline, Supple Chest/axilla: Normal chest wall appearance and motion. Cardiovascular: Regular rate and rhythm. No edema appreciated Respiratory: Normal respirations, no respiratory distress appreciated Abdomen/GI: Non distended, soft Back: Normal ROM Skin: General appearance color normal MS/ Extremity: Moves all extremities, no obvious deformities appreciated, no edema noted to the lower extremities Neuro: Awake and alert, normal gait Psych: Behavior is normal, Mood is normal, Patient is cooperative and pleasant 10:52 ECG was reviewed by the Attending Physician. [facility] Vital Signs: 10:11 BP 110 / 56; Pulse 71; Resp 15; Temp 98.2; Pulse Ox 98% ; Weight 78.47 kg; Height 5 ft. jl7 6 in. (167.64 cm); Pain 10/10; 11:27 BP 112 / 58; Pulse 60; Resp 17; Pulse Ox 100% ; bp 12:12 BP 114 / 62; Pulse 60; Resp 13; Pulse Ox 97% ; bp 13:12 BP 117 / 67; Pulse 61; Resp 16; Pulse Ox 100% ; rb1 10:11 Body Mass Index 27.92 (78.47 kg, 167.64 cm) 7 MDM: 10:25 Patient medically screened. [facility] 13:06 Data reviewed: vital signs, nurses notes. Counseling: I had a detailed discussion with [facility] the patient and/or guardian regarding: the historical points, exam findings, and any diagnostic results supporting the discharge/admit diagnosis, lab results, radiology results, the need for outpatient follow up, to return to the emergency department if symptoms worsen or persist or if there are any questions or concerns that arise at home. ED course: I discussed the patient with Dr. Mckeon whom will follow up with the patient. Patient was also discussed with Dr. Alonzo whom recommened reimaging. CT reveals improving PE. Results were discussed with Dr. Alonzo whom recommended lasix daily along with potassium supplementation. . 11/01 10:30 Order name: Basic Metabolic Panel; Complete Time: 11:24 [facility] 11/01 10:30 Order name: CBC with Diff; Complete Time: 11:08 [facility] 11/01 10:30 Order name: LFT's; Complete Time: 11:24 [facility] 11/01 10:30 Order name: Magnesium; Complete Time: 11:24 [facility] 11/01 10:30 Order name: NT PRO-BNP; Complete Time: 11:24 [facility] 11/01 10:30 Order name: PT-INR; Complete Time: 11:24 [facility] 11/01 10:30 Order name: Troponin (emerg Dept Use Only); Complete Time: 11:24 [facility] 11/01 10:30 Order name: XRAY Chest (1 view); Complete Time: 11:28 [facility] 11/01 10:30 Order name: EKG; Complete Time: 10:31 [facility] 11/01 10:30 Order name: Cardiac monitoring; Complete Time: 10:53 [facility] 11/01 10:30 Order name: EKG - Nurse/Tech; Complete Time: 10:53 [facility] 11/01 10:33 Order name: ABG; Complete Time: 11:24 [facility] 11/01 12:09 Order name: CT Chest For PE Angio; Complete Time: 12:46 [facility] 11/01 12:24 Order name: Abdomen ; Complete Time: 12:53 [facility] 11/01 10:30 Order name: IV Saline Lock; Complete Time: 10:53 [facility] 11/01 10:30 Order name: Labs collected and sent; Complete Time: 10:53 [facility] 11/01 10:30 Order name: O2 Per Protocol; Complete Time: 10:53 [facility] 11/01 10:30 Order name: O2 Sat Monitoring; Complete Time: 10:54 [facility] 11/01 11:25 Order name: Misc. Order: ambulate with pulse ox reading; Complete Time: 12:03 jmm EC:52 Rate is 74 beats/min. Rhythm is regular. QRS [place] is Normal. [place] interval is normal. QRS jmm interval is normal. QT interval is normal. No Q waves. T waves are Normal. No ST changes noted. Reviewed by me. Administered Medications: No medications were administered Disposition: 11/02 08:49 Co-signature as Attending Physician, Zain Sanchez MD I agree with the assessment and dorian plan of care. Disposition: 11/02/19 13:08 Discharged to Home. Impression: Pulmonary embolism. - Condition is Stable. - Discharge Instructions: Pulmonary Embolism. - Prescriptions for Lasix 40 mg Oral Tablet - take 1 tablet by ORAL route once daily for 7 days; 7 tablet. Potassium Chloride 20 meq Oral Packet - take 1 packet by ORAL route once daily for 7 days 1 packet in 6 (six) ounces of water or juice; Take after meal; 7 packet. - Medication Reconciliation Form, Thank You Letter, Antibiotic Education, Prescription Opioid Use form. - Follow up: Rob Alonzo MD; When: 1 week; Reason: Recheck today's complaints, Continuance of care, Re-evaluation by your physician. Signatures: Dispatcher [employer] EDMS Zain Sanchez MD MD cha Mickail, Joel, PA PA jmm Barber, Rebecca, RN RN rb1 Sam Enriquez RN RN jl7 Corrections: (The following items were deleted from the chart) 11/01 13:33 13:08 11/02/2019 13:08 Discharged to Home. Impression: Pulmonary embolism. Condition is rb1 Stable. Forms are Medication Reconciliation Form, Thank You Letter, Antibiotic Education, Prescription Opioid Use. Follow up: Rob Alonzo; When: 1 week; Reason: Recheck today's complaints, Continuance of care, Re-evaluation by your physician. kristi
--- NOTE | 2019-11-02 13:09 | ER ---
Nurse's Notes [facility] Name: Haley Porter Age: 63 yrs Sex: Female : 1955 Arrival Date: 11/02/2019 Time: 09:48 Bed 8 Private MD: Rob Alonzo Diagnosis: Pulmonary embolism Presentation: 11/01 10:11 Chief complaint: Patient states: "Transferred from here on Wednesday to [place], jl7 discharged on Wednesday and was told they needed the floor for the virus and that if I got worse to go back to the hospital." Reports difficulty breathing, dx with 3 PE's and DVT in left leg, and constant right sided sharp chest pain, non radiating, rated 10/10. Coronavirus screen: Proceed with normal triage. Patient denies a cough. Patient reports shortness of breath or difficulty breathing. Patient denies measured and/or subjective temperature greater than 100.4F prior to today's visit. Patient denies travel on a cruise ship or to a country the [facility] currently lists as an affected area. Patient denies contact with known and/or suspected case of COVID-19. Ebola Screen: No symptoms or risks identified at this time. Initial Sepsis Screen: Does the patient meet any 2 criteria? No. Patient's initial sepsis screen is negative. Does the patient have a suspected source of infection? No. Patient's initial sepsis screen is negative. Risk Assessment: Do you want to hurt yourself or someone else? Patient reports no desire to harm self or others. Onset of symptoms was October 30, 2019. Care prior to arrival: None. 10:11 Method Of Arrival: Ambulatory [facility] 10:11 Acuity: RADHA 2 jl7 Triage Assessment: 10:16 General: Appears in no apparent distress. uncomfortable, ill, Behavior is cooperative, jl7 anxious. Pain: Complains of pain in anterior aspect of right upper chest Pain does not radiate. Pain currently is 10 out of 10 on a pain scale. Quality of pain is described as sharp, Pain began 2-3 days ago. Is continuous. Respiratory: Reports shortness of breath Onset: The symptoms/episode began/occurred gradually, the patient has mild shortness of breath. Historical: - Allergies: 10:16 Morphine; jl7 10:16 Oral steroids; jl7 10:16 Valium; jl7 10:16 Versed; jl7 - Home Meds: 10:16 Eliquis oral oral [Active]; jl7 - PMHx: 10:16 Anxiety; Hypertension; Pancreatitis; TMJ; jl7 - PSHx: 10:16 Cholecystectomy; jl7 - Immunization history:: Adult Immunizations not up to date. - Social history:: Smoking status: Patient denies any tobacco usage or history of. Screenin:15 Abuse screen: Denies threats or abuse. Denies injuries from another. Nutritional bp screening: No deficits noted. Tuberculosis screening: No symptoms or risk factors identified. Fall Risk None identified. Assessment: 10:15 General: SEE TRIAGE NOTE. bp 11:28 Reassessment: ORDERS IN PROCESS. Cardiovascular: Rhythm is sinus rhythm. Respiratory: bp Airway is patent Respiratory effort is even, unlabored, Breath sounds are clear bilaterally. 12:12 Reassessment: PT AMBULATED ON ROOM AIR. SPO2 REMAINED ABOVE 96. bp 13:12 Reassessment: Patient appears in no apparent distress at this time. Patient and/or rb1 family updated on plan of care and expected duration. Pain level reassessed. Patient is alert, oriented x 3, equal unlabored respirations, skin warm/dry/pink. Vital Signs: 10:11 BP 110 / 56; Pulse 71; Resp 15; Temp 98.2; Pulse Ox 98% ; Weight 78.47 kg; Height 5 ft. jl7 6 in. (167.64 cm); Pain 10/10; 11:27 BP 112 / 58; Pulse 60; Resp 17; Pulse Ox 100% ; bp 12:12 BP 114 / 62; Pulse 60; Resp 13; Pulse Ox 97% ; bp 13:12 BP 117 / 67; Pulse 61; Resp 16; Pulse Ox 100% ; rb1 10:11 Body Mass Index 27.92 (78.47 kg, 167.64 cm) jl7 ED Course: 09:48 Patient arrived in ED. ag5 09:49 Rob Alonzo MD is Private Physician. ag5 10:15 Triage completed. jl7 10:15 Patient has correct armband on for positive identification. Bed in low position. Call bp light in reach. Side rails up X2. 10:16 Arm band placed on right wrist. jl7 10:20 Hesham Gomez PA is PHCP. conradm 10:20 Zain Sanchez MD is Attending Physician. [facility] 10:21 Trey Peñaloza, RN is Primary Nurse. bp 10:39 EKG done, by ED staff, reviewed by Hesham MAGALLANES. [facility] 10:49 Initial lab(s) drawn, by wa. Inserted saline lock: 20 gauge in right forearm, using 3 aseptic technique. Blood collected. 11:17 XRAY Chest (1 view) In Process Unspecified. EDMS 12:[address] Scan. 12:30 CT Chest For PE Angio In Process Unspecified. EDMS 12:31 Abdomen In Process Unspecified. EDMS 13:08 oRb Alonzo MD is Referral Physician. [facility] 13:32 No provider procedures requiring assistance completed. IV discontinued, intact, rb1 bleeding controlled, No redness/swelling at site. Pressure dressing applied. Administered Medications: No medications were administered Outcome: 13:08 Discharge ordered by MD. [facility] 13:32 Discharged to home ambulatory. rb1 13:32 Condition: stable 13:32 Discharge instructions given to patient, Instructed on discharge instructions, follow up and referral plans. medication usage, Demonstrated understanding of instructions, follow-up care, medications, Prescriptions given X 2. 13:33 Patient left the ED. rb1 Signatures: Dispatcher [employer] EDAZ Deedee Max RN Hesham Wasserman PA PA [facility] Xochitl Vergara, RN RN rb1 Sam Enriquez RN RN jlRegina Witt [facility] Trey Peñaloza, RN RN Virgen Denney 5
[2019-11-02 13:42] VITALS: TEMP 98.2
[2019-11-02 13:57] VITALS: BP 117/67; O2SAT 100
== END 2019-11-02 13:33 | disposition home or self-care (01) ==
LOC: ER 09:46
DX: I26.99 Other pulmonary embolism without acute cor pulmonale (principal); I10 Essential (primary) hypertension; F41.9 Anxiety disorder, unspecified; Z88.5 Allergy status to narcotic agent; Z88.8 Allergy status to other drugs, medicaments and biological substances; Z79.01 Long term (current) use of anticoagulants
CPT/HCPCS: 93005; 85025; 80048; 36415; 83735; 85610; 80076; 84484; 83880; 71275; 74177; 71045; 82805; 99284; Q9967

== ENCOUNTER 2019-11-04 07:57 | Emergency (ER) | payer OTHER ==
--- OUTSIDE RECORDS SUMMARY | 2019-11-04 08:02 | XMS REPORT | Clinical Summary ---
:1955 Author Organization [facility] Address [address] [place] [address] Care Team Providers Name Role Phone Nayla Alonzo MD Primary Care Provider Allergies Not on File Medications Not on file Active Problems Not on file Encounters Date Type Specialty Care Team Description 10/30/2019 Telephone Critical Care Medicine Jan Fountain MD 10/30/2019 Hospital Encounter after 11/03/2018 Social History Tobacco Use Types Packs/Day Years Used Date Never Assessed Sex Assigned at Date Recorded Not on file Job Start Date Occupation Industry Not on file Not on file Not on file Travel History Travel Start Travel End No recent travel history available. Last Filed Vital Signs Not on file Plan of Treatment Not on file Results Not on fileafter 11/03/2018 Insurance Payer Benefit Plan / Group Subscriber ID Type Phone A ddress [employer] - [employer] CARE C[employer] HMO/POS/OPEN ACCESS xxxxxxxxx HMO/POS [phone] [id number] (Work)
--- OUTSIDE RECORDS SUMMARY | 2019-11-04 08:02 | XMS REPORT | Clinical Summary ---
:1955 Author Organization [facility] Address [address] [place] [address] Care Team Providers Name Role Phone Nayla [...] Bedtime, # 180 tab, 3 Refill(s), Pharmacy: [facility]/pharmacy #[id number] buprenorphine (BELBUCA) 150 0 10/20/19 Discontinued 150 [...] 09/11/2019 Travel 09/08/2019 Telephone Radiology Torrie Cobb SUBWAREHOUSE SUPERVISOR 09/06/2019 Hospital Encounter Radiology Triston Noel Thoracic [...] Radiology Sonam Arroyo RN 08/29/2019 Telephone Radiology Sonma Arroyo RN 08/29/2019 Orders Only Neurosurgery Wanda Cotter, Lumbar stenosis with neurogenic claudication (Primary Dx); DEXIGRAPH OPERATOR Radiculopathy o f thoracic region 08/22/2019 Orders Only Neurosurgery Wanda Cotter, Thoracic radicu lopathy (Primary Dx); DEXIGRAPH OPERATOR Spinal stenosis of lumbar region, unspecified whether [...] 08/07/2019 Travel 08/02/2019 Abstract Neurosurgery Wanda Cotter, DEXIGRAPH OPERATOR 07/27/2019 Travel 07/04/2019 Office Visit Cardiology Ibis Torres Essential hyper tension (Primary Dx); MD Danitza Claudication (H CC) 07/04/2019 Orders Only Triston Brown Lumbar radiculo tr MD Chel (Primary Dx) 06/06/2019 Lab Lab Ibis Torres PAD (peripheral R., MD artery disease) (HCC) 06/06/2019 Office Visit Cardiology Ibis Torres PAD (peripheral artery disease) (HCC) (Primary Dx); MD Danitza Bilateral carot id artery stenosis after 11/03/2018 Family History Medical History Relation Name Comments [...] INFLUENZA VACCINE 12/02/2019 Implants Implanted Type Area Internet Database Specialist Device Shelf Model / Identifier Expiration Serial / Date Lot System Spine Selnt For Dural Selng Exact 5ml Duraseal - [id number] Cardiovascular N/A: [employer] 11/30/[id number] / Implanted: Qty: 1 on 09/19/2019 by Triston Noel MD at [facility] Implants N/A LIFESCIENCE / NEURO [id number] Procedures Procedure Name Priority Date/Time Associated Diagnosis [...] procedure are i n the results section. [place] AN ELECTIVE Routine 09/19/2019 3:51 Results f [...] neurogenic claudication Case Notes EXTENDED RECOVERY NEEDED, SD CROSCOPE, KARISHMA FRAME Special Needs EXTENDED RECOVERY NEEDED, SD CROSCOPE, KARISHMA FRAME SURGICAL PATHOLOGY Routine 09/19/2019 [...] (peripheral Res ults for this BILATERAL AM COMMERCIAL HVAC SERVICE TECHNICIAN artery disease) ([facility]LY [facility]) proced ure are in the results section. CT ANGIOGRAM Routine 06/06/2019 5:02 PAD (peripheral Results for this ABDOMINAL AORTA AND PM COMMERCIAL HVAC SERVICE TECHNICIAN artery disease) ([facility]) procedure are in BILATERAL ILIOFEMORAL the re sults RUNOFF W WO CONTRAST section . ESTIMATED GFR Routine 06/06/2019 3:21 Results fo r this PM COMMERCIAL HVAC SERVICE TECHNICIAN procedure are i n the results section. POC CREATININE Routine 06/06/2019 3:21 Results f or this PM COMMERCIAL HVAC SERVICE TECHNICIAN procedure are i n the results section. COPY RECEIVED FROM: Routine 06/06/2019 11:02 Resu lts for this AM COMMERCIAL HVAC SERVICE TECHNICIAN procedure are i n the results section. COPY(IES) SENT TO: Routine 06/06/2019 11:02 Resul ts for this AM COMMERCIAL HVAC SERVICE TECHNICIAN procedure are i n the results section. BASIC METABOLIC PANEL Routine 06/06/2019 11:02 PAD (peripheral Results for this AM COMMERCIAL HVAC SERVICE TECHNICIAN artery disease) ([facility]) proced ure are in the results section. ECG 12-LEAD Routine 06/06/2019 9:55 Bilateral carotid Result s for this AM COMMERCIAL HVAC SERVICE TECHNICIAN artery stenosis procedure ar e in the results section. MRI SPINE EXTERNAL Routine 03/06/2019 3:47 Resul ts for this STUDY PM COMMERCIAL HVAC SERVICE TECHNICIAN procedure are i n the results section. after 11/03/2018 Results Urine culture (09/20/2019 7:30 PM CDT) Pathologist Sig nature Urine culture SEE COMMENTComment: [facility] Bacteriuria screen HOSPITAL negative. Specimen Performing Organization Address City/State/Zipcode Phone Number [facility] DEPARTMENT OF PATHOLOGY AND [address] [place], [place] [address] GENOMIC MEDICINE [facility] [address] [place] [address] Cervical Spine Wo Contrast (09/20/2019 6:46 [...] of the cervical spine . [facility] Performing Organization Address City/State/Zipcode Phone Number [facility] [address] [place] [address] CT Head Wo Contrast (09/20/2019 6:45 PM [...] IMPRESSION: No acute intracranial abnormality identi fied. [id number] Procedure Note Interface, Radiology Results Incoming - [...] IMPRESSION: No acute intracranial abnormality identi fied. [id number] Performing Organization Address City/State/Zipcode Phone Number [facility] [address] [facility] [place] [address] CT Lumbar Spine Wo Contrast (09/20/2019 6:43 [...] t L5-S1 bilaterally. [id number]-[id number] Performing Organization Address City/[facility]/Zipcode Phone Number [facility] [address] [place] [address] CBC with platelet and differential (09/20/2019 5:36 PM CDT)Only the most recent of2 resultswithin the time period is included. WBC 13.52 (H) 4.50 - 11.00 [facility] k/uL HOSPITAL RBC 4.10 (L) 4.20 - 5.50 [facility] m/uL HOSPITAL HGB 12.9 12.0 - 16.0 [facility] g/dL HOSPITAL HCT 39.3 37.0 - 47.0 % [facility] MCV 95.9 82.0 - 100.0 [facility] MCH 31.5 27.0 - 34.0 pg [facility] MCHC 32.8 31.0 - 37.0 [facility] gdL [facility] RDW - SD 42.5 37.0 - 55.0 fL [facility] MPV 10.4 8.8 - 13.2 fL [facility] Platelet count 229 150 - 400 k/uL [facility] Nucleated RBC 0.00 /100 WBC [facility] Neutrophils 78.5 (H) 39.0 - 69.0 % [facility] Lymphocytes 11.5 (L) 25.0 - 45.0 % [facility] Monocytes 9.4 0.0 - 10.0 % [facility] Eosinophils 0.0 0.0 - 5.0 % [facility] Basophils 0.2 0.0 - 1.0 % [facility] Immature granulocytes 0.4Comment: 0.0 - 1.0 % [facility] "Immature HOSPITAL granulocytes" (promyelocytes , myelocytes, metamyelocytes ) Specimen Blood Performing Organization Address City/[facility]/Zipcode Phone Number [facility] DEPARTMENT OF PATHOLOGY AND [address] [place] [phone] GENOMIC MEDICINE [address] [address] Ammonia level (09/20/2019 5:36 PM CDT) Pathologist Sig nature Ammonia 19 11 - 51 umol/L [facility] Specimen Blood Performing Organization Address City/[facility]/Zipcode Phone Number [facility] DEPARTMENT OF PATHOLOGY AND [address] [place] [phone] [place] [id number] [place] [address] Urinalysis screen and microscopy, with reflex to culture (09/20/2019 5:30 PM CDT) Specimen site Clean catch [facility] Color, UA Straw [facility] Appearance, UA Clear [facility] Specific gravity, UA 1.003 1.001 - 1.035 [facility] pH, UA 7.0 5.0 - 8.5 [facility] Protein, UA Negative Negative [facility] Glucose, UA Negative Negative [facility] Ketones, UA Negative Negative [facility] Bilirubin, UA Negative Negative [facility] Blood, UA Negative Negative [facility] Nitrite, UA Negative Negative [facility] Urobilinogen, UA <2.0 <2.0 [facility] Leukocyte esterase, Negative Negative [facility] Epithelial cells, UA 5 /HPF [facility] WBC, UA 1 0 - 4 /HPF [facility] RBC, UA 1 0 - 5 /HPF [facility] Bacteria, UA Few None seen [facility] Yeast, UA None seen [facility] Yeast with None seen [facility] pseudohyphae, HOSPITAL Specimen Urine Performing Organization Address City/State/Zipcode Phone Number [facility] DEPARTMENT OF PATHOLOGY AND [address] [place], [place] [address] [address] [address] Urine drugs of abuse screen (09/20/2019 5:30 PM CDT) Amphetamine screen, Negative [place] urine [facility] Barbiturate screen, Negative [place] urine [facility] Benzodiazepine Negative [place] screen, urine [facility] Cocaine screen, urine Negative [facility] Methadone metabolite Negative [place] (EDDP), urine [facility] Opiates screen, urine Negative [facility] Oxycodone screen, Positive (A) [place] urine [facility] Phencyclidine screen, Negative [place] urine [facility] Tricyclic screen, Negative [place] urine [facility] Cannabinoid screen, Negative [place] urine Comment: DENOMINATIONAL Drug screen minimum concentration of detectability HOSPITAL [...] Urine Performing Organization Address City/State/Zipcode Phone Number [facility] DEPARTMENT OF PATHOLOGY AND [phone] [address] Estimated GFR (09/20/2019 5:20 PM CDT)Only the [...] Specimen Performing Organization Address City/State/Zipcode Phone Number [facility] DEPARTMENT OF PATHOLOGY AND [phone] [address] Troponin (09/20/2019 5:20 PM CDT) Troponin 0.013 [...] 0.020 ng/mL Specimen Blood Performing Organization Address City/[facility] Cent[facility] Phone Number [facility] DEPARTMENT OF PATHOLOGY AND [address] [place], [place] [address] [address] [place] [address] Partial thromboplastin time, activated (09/20/2019 5:20 PM CDT) [facility] PTT 24.7 23.0 - 36.0 [facility] Comment: [facility] PTT therapeutic range for unfractionated heparin is 61.0-112.0 seconds which corresponds to Anti-Xa 0.3-0.7 U/ml. Specimen Blood Performing Organization Address [facility] Phone Number [facility] DEPARTMENT OF PATHOLOGY AND [address] [place] [address] [phone] [address] Prothrombin time with INR (09/20/2019 5:20 PM CDT) [facility] Prothrombin time 13.3 11.5 - 14.5 [facility] INR 1.0 [place] Comment: [facility] International Normalized Ratio (INR) is a therapeu [facility] HOSPITAL monitoring tool for patients who are stable on oral anticoagulant therapy. An INR of 2.0-3.0 is suggested for deep vein thrombosis/pulmonary embolism. Specimen Blood Performing Organization Address City/[facility] Centercode Phone Number [facility] DEPARTMENT OF PATHOLOGY AND [address] [place] [address] [phone] [address] Phosphorus level (09/20/2019 5:20 PM CDT) Pathologist Sig nature Phosphorus 2.6 2.4 - 4.5 mg/dL [facility] Specimen Blood Performing Organization Address City/[facility] Cent[facility]ode Phone Number [facility] DEPARTMENT OF PATHOLOGY AND [address] [place] [address] [phone] [address] Magnesium level (09/20/2019 5:20 PM CDT) Pathologist Sig nature Magnesium 1.8 1.6 - 2.4 mg/dL [facility] Specimen Blood Performing Organization Address City/[facility] Cent[facility]ode Phone Number [facility] DEPARTMENT OF PATHOLOGY AND [address] [place] [address] [phone] [address] Ionized calcium (09/20/2019 5:20 PM CDT) Pathologist Sig [facility] pH 7.52 [facility] Ionized calcium 1.13 1.11 - 1.32 mmol/L [facility] Specimen Blood Performing Organization Address [facility] Phone Number [facility] DEPARTMENT OF PATHOLOGY AND [address] [place] [address] [phone] [address] Basic metabolic panel (09/20/2019 5:20 PM CDT)Only the most recent of2 results within the time period is included. Pathologist Sig nature Sodium 145 135 - 148 mEq/L [facility] Potassium 3.5 3.5 - 5.0 mEq/L [facility] Chloride 105 98 - 112 mEq/L [facility] CO2 23 (L) 24 - 31 mEq/L [facility] Anion gap 17@ANIO (H) 7 - 15 mEq/L [facility] BUN 9 8 - 23 mg/dL [facility] Creatinine 0.76 0.50 - 0.90 mg/dL [facility] Glucose 142 (H) 65 - 99 mg/dL [facility] Calcium 9.5 8.8 - 10.2 mg/dL [facility] Specimen Blood Performing Organization Address City/[facility] Centerconh Phone Number [facility] DEPARTMENT OF PATHOLOGY AND [address] [place] [address] [phone] [address] ECG 12 lead (09/20/2019 4:27 PM CDT)Only the most recent of2 resultswithin the time period is included. Pathologist Sig nature Ventricular rate 88 [facility] Atrial rate 88 [facility] M[facility] [place] interval 164 [facility] QRSD interval 90 [...] available. Performing Organization Address City/State/Zipcode Phone Number [facility] MUSE [address] [place] [address] POC glucose (09/20/2019 4:25 PM CDT) Pathologist Sig nature POC glucose 133 (H) 65 - 99 mg/dL [facility] Comment: HOSPITAL Egg Producer Name: Zion Crump Device ID: [id number] Chartable: [facility] Notified RN Specimen Blood Performing Organization Address City/State/Zipcode Phone Number [facility] DEPARTMENT OF PATHOLOGY AND [address] [place] [phone] GENOMIC MEDICINE [address] [address] Airway (09/19/2019 3:59 PM CDT) Narrative Performed [...] aspect of the L4 spin ous process. [id number] Procedure Note Hm Interface, Radiology Results Incoming [...] inferior aspect of the L4 spinous process. [id number] Performing Organization Address City/[facility]/Zipcode Phone Number [facility] [address] [place] [address] Surgical pathology request (09/19/2019 8:26 AM CDT) [facility] DEPARTMENT OF PATHOLOGY AND GENOMIC MEDICINE Surgical pathology See link below [facility] DEPARTMENT OF report for PDF Lab PATHOLOGY AND Report GENOMIC MEDICINE Result status This is Final [facility] DEPARTMENT OF Report for PATHOLOGY AND [id number] GENOMIC MEDICINE Specimen Performing Organization Address [facility] Centercode Phone Number [facility] DEPARTMENT OF PATHOLOGY AND [address] [place] [phone] GENOMIC MEDICINE COVID BioRef (NCOVB) (09/11/2019 12:19 PM CDT) COVID BioRef Not Detected Not Detected [facility] (NCOVB) Comment: Source Nasopharyngeal Swab Testing performed at [facility] [address] [place] [address] NOTE: Please consider re-collection of a new specimen, if clinically indicated. NOTE: The COVID-19 assay has been cleared by the U.S. Food and Drug Administration under the Emergency Use Authorization ( EUA). [employer] is designated as a high complexity labora [...] under the Emergency Use Authorization ( EUA). [employer] is designated as a high complexity labora tory by the Clinical Laboratory Improvement Amendments of 1988(CLIA) and is qualified to perform this test. ASSAY INFORMATION: Real Time RT-PCR (Reported 2019 12:29) Specimen Nasopharyngeal Performing Organization Address City/[facility]/Zipcode Phone Number [facility] DEPARTMENT OF PATHOLOGY [address] [place] [address] AND [facility] [address] [address] Comprehensive metabolic panel (09/11/2019 12:11 PM CDT) Sodium 142 135 - 148 [facility] mEq/L [facility] Potassium 4.0 3.5 - 5.0 [facility] mEq/L [facility] Chloride 100 98 - 112 [facility] mEq/L [facility] CO2 26 24 - 31 mEq/L [facility] Anion gap 16@ANIO (H) 7 - 15 mEq/L [facility] BUN 26 (H) 8 - 23 mg/dL [facility] Creatinine 0.90 0.50 - 0.90 [facility] mg/dL HOSPITAL Glucose 111 (H) 65 - 99 mg/dL [facility] Calcium 10.5 (H) 8.8 - 10.2 [facility] mg/dL [facility] Protein 7.6 6.3 - 8.3 [facility] Comment: g/dL [facility] [place] 4.6-7.0 g/dL 1 week 4.4-7.6 g/dL 7 months-1year 5.1-7.3 g/dL 1-2 years 5.6-7.5 g/dL >3 years 6.0-8.0 g/dL 18-150 6.3-8.3 g/dL Albumin 4.0 3.5 - 5.0 [facility] g/dL HOSPITAL A/G ratio 1.1 0.7 - 3.8 [facility] Alkaline phosphatase 82 35 - 104 U/L [facility] AST 20 10 - 35 U/L [facility] ALT 17 5 - 50 U/L [facility] Total bilirubin 0.3 0.0 - 1.2 [facility] mg/dL HOSPITAL Specimen Blood Performing Organization Address City/[facility]/Zipcode Phone Number [facility] DEPARTMENT OF PATHOLOGY AND [address], [place] [address] [place] [address] CT Post Myelogram Thoracic (09/06/2019 12:33 PM [...] ensure appropriate moderation of exposure. Automated dose agency sales management assistant nology is applied to adjust radiation exposure [...] correlation for right C6 radiculopathy is recommended. [facility]-[id number] Procedure Note Interface, Radiology Results [facility] - 09/06/2019 12:44 PM CDT EXAMINATION: [...] correlation for right C6 radiculopathy is recommended. [facility]-[id number] Performing Organization Address City/State/Zipcode Phone Number [facility] [address] [place] [address] CT Post Myelogram Lumbar (09/06/2019 12:32 PM [...] ensure appropriate moderation of exposure. Automated dose agency sales management assistant nology is applied to adjust radiation exposure [...] ingement on the right L3 nerve root. [facility]-[id number] Procedure Note Hm Interface, Radiology Results - [...] impingement on the right L3 nerve root. [facility]-[id number] Performing Organization Address City/State/Zipcode Phone Number [facility] [address] [place] [address] IR Myelogram 2+Reg Incl Inj W S&I [...] of the left C6 root sleeve . [id number] Procedure Note Interface, Radiology Results Incoming - [...] of the left C6 root sleeve . [facility]-[id number] Performing Organization Address City/State/Zipcode Phone Number [facility] [address] [place] [address] XR Lumbar Spine Complete W Flex and [...] IMPRESSION: Degenerative changes without acute abnor mality. [facility]-[id number] Dictated and approved by radiology resid ent/fellow: Cari Thomson M.D. I, Marilyn Charles MD, personally reviewed the images and resident's/fellow's findings and agree with the final report. Procedure Note [facility], Radiology Results Incoming - 08/14/2019 11:37 [...] IMPRESSION: Degenerative changes without acute abnor mality. [facility]-[id number] Dictated and approved by radiology resid ent/fellow: Cari Thomson M.D. I, Marilyn Charles MD, personally review ed the images and resident's/fellow's findings and agree with the final report. Performing Organization Address City/State/Zipcode Phone Number [facility] [address] [place] [address] XR Spine Scoliosos 2-3 Views (08/14/2019 11:06 AM CDT) Specimen Narrative Performed At EXAMINATION: XR SPINE SCOLIOSIS 2-3 VIEW S [facility] CLINICAL H[facility]ORY: M54.16 Radiculopathy lumbar region, radiculopathy [...] and s crew fixation and interbody graft. [id number] Procedure Note Interface, Radiology Results Incoming - [...] plate and screw fixation and interbody graft. [id number] Performing Organization Address City/State/Zipcode Phone Number [facility] [address] [place] [address] Us carotid duplex (06/13/2019 10:00 AM COMMERCIAL HVAC SERVICE TECHNICIAN) Specimen Narrative Performed At [facility] Carotid Tonya ry Ultrasound Report Pat.Name: HALEY PORTER Pat.ID: [id number] .Date: 06/13/2019 Refer.MD: IBIS TORRES MD Exam Time: 9:13:00 AM Study Type:C arotid Age: 8 1955,63Y Sex: FEMALE Sonogrphr: Cyn Montoya RVT Pat. Stat.:[facility] ol: SD, CPT - 4: 14563 Echo Shira nt ID:[id number] Order ID: [id number] Reason for Study:Carotid artery disease, Hx of [...] Radiology Results In - 2019 6:01 AM COMMERCIAL HVAC SERVICE TECHNICIAN [facility] Carotid Artery Ultras ound Report Pat.Name: HALEY PORTER Pat.I D: [id number] .Date: 06/13/2019 Refer .MD: IBIS TORRES MD Exam Time: 9:13:00 AM Study Type:Carotid Age: 8 1955,63Y Sex: FEMALE Sonogrphr: Cyn Montoya RVT Pat. Stat.:Outpatient Room: [facility] Vol: SD, CPT - 4: 52556 Echo Event ID:[id number] Order ID: [id number] Reason for Study:Carotid artery disease, Hx of [...] Organization Address City/State/Zipcode Phone Number [facility] [address] [place] [address] CTA Abdominal Aorta And Bilateral Iliofemoral Runoff W Wo Contrast (06/06/2019 5:02 PM COMMERCIAL HVAC SERVICE TECHNICIAN) Specimen Narrative Performed At EXAMINATION: CT ANGIOGRAM [...] runoff of the bilate ral lower extremities. [facility]-[id number] Procedure Note Hm Interface, Radiology Results Incoming - 06/06/2019 5:24 PM COMMERCIAL HVAC SERVICE TECHNICIAN EXAMINATION: CT ANGIOGRAM ABDOMINAL AORTA AND BILATERAL [...] runoff of the bilate ral lower extremities. [facility]-[id number] Performing Organization Address City/[facility]/Zipcode Phone Number [facility] [address] [place] [address] POC creatinine (06/06/2019 3:21 PM COMMERCIAL HVAC SERVICE TECHNICIAN) Pathologist [facility] POC creatinine 0.8 0.5 - 0.9 [facility] Comment: mg/dl HOSPITAL Meter ID: [id number] Egg Producer ID: Bayron Valencia Specimen Blood - Antecubital, left Performing Organization Address City/[facility]/Zipcode Phone Number [facility] DEPARTMENT OF PATHOLOGY AND [address] [place], [place] [address] GENOMIC MEDICINE [facility] [address] [place] [address] COPY RECEIVED FROM: (06/06/2019 11:02 AM COMMERCIAL HVAC SERVICE TECHNICIAN) Pathologist Sig nature Copy received from: [facility] Comment: [address] [facility] [address] [place] [address] Specimen Performing Organization Address City/[facility]/Zipcode Phone Number [facility] COPY(IES) SENT TO: (06/06/2019 11:02 AM COMMERCIAL HVAC SERVICE TECHNICIAN) Pathologist Sig nature Copies/mL [facility] Comment: [address] [facility] [address] [place] [address] Specimen Performing Organization Address City/[facility]/Zipcode Phone Number [facility] MRI Spine External Study (03/06/2019 3:47 PM COMMERCIAL HVAC SERVICE TECHNICIAN) Specimen Narrative Performed At This exam was not acquired at a Methodis t facility and has not been [facility] interpreted by a Christian Provider. T he exam was imported into our imaging system. Performing Organization Address City/State/Zipcode Phone Number [facility] [address] [place] [address] after 11/03/2018 Insurance Payer Benefit Plan / Subscriber ID Effective Phone Address T ype Group Dates MEDICARE MEDICARE PART A xxxxxxxxxxx 2018-[facility] [place], [place] Medicare AND B ent COMMERCIAL MISC MISC COMMERCIAL xxxxxxxxx 2009-[facility] Commercial ent Guarantor Name Account Type Relation to Date of Phone Billing Patient Address Haley Porter Personal/Family Self 1955 [address] (Home) [place], [place] [phone] [id number] (Work) Advance Directives For more information, please contact: [phone] Type Date Recorded 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
--- OUTSIDE RECORDS SUMMARY | 2019-11-04 08:07 | XMS REPORT | Continuity of Care Document ---
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 018 [place] SURGERY THIS Active [facility] MORNING, PROBLEMS 013 Al dical BREATHING Center POST FOLLOW UP Active [address] BDDC-WEIGHT LOSS Active [address] 783.21 - ABNORMAL Active OPID LOSS O 576.0 - 013 Radha and POSTCHO ABD PAIN Active [address] Acid reflux Resolved Problem 01/25/2013 [facility] HTN - Hypertension Resolved Problem 01/25/2013 [facility] Gastroesophageal Resolved Problem 11/02/2019 [facility] reflux disease Neuro , (disorder) [facility] Cervical Active Problem 11/02/2019 [facility] spondylosis Neuro, (disorder) [facility] 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 Fabian Barrera [place] Ulcer of lower Active Problem 11/02/2019 [facility] her extremity Neuro, (disorder) [facility] ABDMNAL PAIN UNSPCF Active [facility] Medications Medication Details Route Status Patient Ordering Order Source Instructions Provider Date remove patch Notes: Remove No Longer [place] patch 12 hours Active 2019 Medical after Center application each day. edwina, RETIREMENT Notes: (Same Inactive [place] as: [place]) [address] [place] [address] Center tramadol Notes: Not to Inactive [place] hydrochloride exceed 2020 Medical 50 MG Oral 400mg/day. Center Tablet (Same As: Ultram) Lidocaine 1 patch, TOP, Active [place] Hydrochloride Daily, Remove 2020 Medi ion 0.05 MG/MG after 12 hours, Cente r Transdermal # 30 patch, 0 Patch Refill(s), [Lidoderm] [id number], 167.64, cm, 10/31/19 2:23:00 CDT, Height, 79.091, kg, 10/31/19 2:23:00 CDT, Weight {74 (apixaban 5 5 mg = 1 tab, Active [place] MG Oral Tablet PO, BID, # 60 2019 Med ical [Eliquis]) } tab, 0 Center Pack [Eliquis Refill(s), 30-Day Starter Pharmacy: Pack] [facility]/pharmacy #[id number], 167.64, cm, 10/31/19 2:23:00 CDT, Height, 79.091, kg, 10/31/19 2:23:00 CDT, Weight Lidocaine Notes: Apply Inactive [place] Hydrochloride only once for 2019 Medi ion 0.05 MG/MG up to 12 hours Center Transdermal in a 24-hour Patch period (12 [Lidoderm] hours on and 12 hours off). (Same as: Lidoderm) "Remove old patch before application of new patch" clorazepate 7.5 7.5 mg = 1 tab, Active [place] mg oral tablet PO, Daily, 0 2019 Medi ion Refill(s) Center omeprazole 20 20 mg = 1 cap, Active [place] mg oral delayed PO, Daily, 0 2019 Med ical release capsule Refill(s) Center Acetaminophen 1 tab, PO, Q6H, Active [place] 325 MG / PRN for pain, 0 2020 Medical Oxycodone Refill(s) Center Hydrochloride 10 MG Oral Tablet POLYETHYLENE Notes: Dissolve Inactive [facility] GLYCOL 3350 in 8 oz of [address] [place] [address] water or juice. Center (Same as: Miralax) Aspirin 81 MG Notes: Do not Inactive [facility] Enteric Coated crush or chew. [facility] Me dical Tablet (Same As: Center Ecotrin) Prilosec 20 mg, Route: Inactive Cecilia PO, Daily, [facility] Medical Dosing Weight Center 83.636, kg, Start date: 10/31/19 9:00:00 CDT, Duration: 30 day, Stop date: 11/29/19 9:00:00 CDT pregabalin Notes: (Same Inactive [place] as: Lyrica) [address] [place] [address] quinapril 20 mg, 1 tab, Inactive Monstera s Route: PO, Drug [facility] Medical form: TAB, Center Daily, Dosing Weight 83.636, kg, Start date: 10/31/19 9:00:00 CDT, Duration: 30 day, Stop date: 11/29/19 9:00:00 CDT Protonix Notes: Tablet Inactive [facility] should not be [address] [place] [address] chewed or [place] crushed. (Same as: Protonix) Acetaminophen Notes: (Same Inactive [place] 325 MG / as: Mul[place] [address] [place] [address] Hydrocodone 325/5) Do not Cente r Bitartrate 5 MG exceed 4gm/day Oral Tablet of [Mulga 5/325] acetaminophen. Hydromorphone Notes: Same as Inactive [facility] Dilaudid [address] [place] [address] Heparin 80 Route: IVP, Inactive [facility] unit/kg Bolus PRN, 5,400 2019 [facility] (Heparin Dosing unit, 5.4 mL, Ce nter Weight) Drug form: INJ, PRN, Heparin Protocol, Start date: 10/31/19 2:25:00 CDT Stop date: 11/30/19 2:24:00 CDT, 30 day, 0 Heparin 40 Route: IVP, Inactive Cecilia unit/kg Bolus PRN, 2,[address] [place] [address] (Heparin Dosing unit, 2.7 mL, Ce nter Weight) Drug form: INJ, PRN, Heparin Protocol, Start date: 10/31/19 2:25:00 CDT Stop date: 11/30/19 2:24:00 CDT, 30 day, 0 heparin Notes: Total Inactive [facility] additive 25,000 Concentration = 2019 Medical unit [18 50 unit/ ml Center unit/kg/hr] + Total volume = Premix Diluent 500 ml Send [facility] Sodium Chloride Request 2 hours 0.45% 500 mL prior to next bag Acetaminophen Notes: Do not Inactive [facility] 325 MG / exceed 4gm/day 2019 Medical Hydrocodone of [place] Bitartrate 10 acetaminophen. MG Oral Tablet (Same as: Mulga 325/10) clorazepate Notes: (Same Inactive Monster as As: Tranxene-T) [address] [place] [address] tizanidine Notes: (Same Inactive [place] As: Zanaflex) [address] [place] [address] pregabalin 100 100 mg = 1 cap, Active [place] mg oral capsule PO, QID, # 90 2019 Al dical cap, 0 Center Refill(s) tizanidine 4 mg 4 mg = 1 tab, Inactive [facility] oral tablet PO, Q8H, PRN 2019 [facility] for muscle [place] spasms, # 90 tab, 0 Refill(s) clorazepate 7.5 7.5 mg = 1 tab, Inactive [facility] mg oral tablet PO, TID, PRN 2019 [facility] ion Anxiety, 0 Center Refill(s) linaclotide 145 microgram = Active [facility] exas 0.145 MG Oral 1 cap, PO, 2019 Medical Capsule Daily, 30 Center [Linzess] minutes prior to the first meal of the day, # 30 cap, 0 Refill(s) Dextrose 50% 12.5 gm, 25 mL, Inactive [facility] Syringe (D50W) Route: IVP, 2019 Medic al Drug Form: INJ, Center Dosing Weight 83.636, kg, PRN, PRN Blood Glucose Results, Start date: 10/31/19 2:06:00 CDT, Duration: 30 day, Stop date: 11/30/19 2:05:00 CDT, 0 Glucagon 1 mg, Route: Inactive [facility] IM, Drug form: [facility] Medical PDR/INJ, PRN, Center Dosing Weight 83.636, kg, PRN Blood Glucose Results, Start date: 10/31/19 2:06:00 CDT, Duration: 30 day, Stop date: 11/30/19 2:05:00 CDT, 0 Ondansetron Notes: (Same Inactive [place] as as: Zofran) 2019 Medical MEDICATION Center WASTE Product Size: 4 mg Product Wasted: ___ mg Melatonin Notes: (Same Inactive [place] as: Melatonin) 2019 [facility] Aspirin 81 MG 81 mg = 1 tab, Active 05/05/ mckenzie Enteric Coated PO, Daily, # 90 2019 N euro Tablet tab, 3 Refill(s) cefdinir 300 MG 300 mg = 1 cap, Active 05/05/ cher Oral Capsule PO, BID, # 20 2019 Neuro cap, 0 Refill(s) Estrogens, 0.3 mg = 1 tab, Active 12/22/ ch er Conjugated PO, Daily, # 30 2019 Neuro (RETIREMENT) 0.3 MG tab, 0 Oral Tablet Refill(s) [Premarin] Acetaminophen 1 tab, PO, Q6H, Active elizabeth 325 MG / 0 Refill(s) 2019 Neuro Hydrocodone Bitartrate 10 MG Oral Tablet [place] BUC, Q12H, 0 Active cher Refill(s) 2019 Neuro Buprenorphine 150 microgram = Active elizabeth 0.15 MG Buccal 1 ea, BUC, BID, 2019 N euro Film [Belbuca] 0 Refill(s) amitriptyline 20 mg = 2 tab, Active 08/18/ mckenzie 10 mg oral PO, Bedtime, # 2019 Neuro tablet 180 tab, 3 Refill(s), Pharmacy: [facility]/pharmacy #[id number] Acetaminophen 1 tab, PO, TID, Active 300 MG / PRN Pain, X 4 2017 [place] Codeine day, # 12 tab, Phosphate 30 MG 0 Refill(s) Oral Tablet [Tylenol with Codeine #3] acetaminophen-c Notes: Do not Inactive 05/07/ M H odeine #3 exceed 4gm/day 2018 [place] of acetaminophen. (Same as: Tylenol with Codeine # 3) Ondansetron Notes: (Same Inactive as: Evita) 2017 [place] MEDICATION WASTE Product Size: 4 mg Product Wasted: ___ mg Sodium Chloride 1,000 mL, 1000 Inactive 0.9% (Bolus) IV ml/hr, [facility]: 1 hr, Route: IV, 1,000, Drug form: INJ, ONCE, Priority: STAT, Dosing Weight 61.364 kg, Start date: 05/06/17 12:46:00 OFFICE ASSISTANCE, Stop date: 05/06/17 12:46:00 OFFICE ASSISTANCE Saline Flush Notes: (Same Inactive 0.9% as: BD 2017 [place] Posiflush) hyoscyamine 0.125 mg, 1 PO No Longer [facility] Monster as tab, Route: PO, Active 2012 Medical Drug form: TAB, Center QID-Before Meals, Dosing Weight 65, kg, Start date: 01/23/13 11:30:00, Duration: 30 day, Stop date: 02/22/13 7:30:00 tramadol 50 mg 50 mg, 1 tab, PO Active [place] oral tablet PO, Q8H, PRN, 2012 Medica l 30 tab, as Center needed for pain, Substitution Allowed, TAB tramadol 50 mg 50 mg, 1 tab, PO No Longer [facility] H [place] oral tablet PO, Q8H, PRN, Active 2012 Medica l 10 tab, as Center needed for pain, Substitution Allowed, TAB Mulga 10/325 1 tab, Route: PO No Longer [place] oral tablet PO, Drug Form: Active 2012 Medic al TAB, Dosing Center Weight 65, kg, Q6H, PRN Pain, Start date: 01/22/13 21:22:00, Duration: 30 day, Stop date: 02/21/13 21:21:00 Omnipaque 100 mL, Route: IVP No Longer [facility] [place] 350mg/ml IVP, Drug Form: Active 2012 Medical SOLN, Dosing Center Weight 65, kg, ONCALL, STAT, Start date: 01/22/13 13:12:00, Duration: 1 doses or times, Dose = 2.2ml/kg, Max dose = 100ml -- "To be infused by Radiology Staff ONLY"Dose = 2.2ml/kg, Max dose = 100ml -- "To be infused by Radiology Staff ONLY" Dilaudid 0.5 mg, 0.25 IV No Longer [facility] mL, Route: IV, 2012 Medical Drug form: INJ, Center Q4H, Dosing Weight 65, kg, PRN as needed for pain, Start date: 01/22/13 12:17:00, Duration: 30 day, Stop date: 02/21/13 12:16:00 Mulga 10/325 1 tab, Route: PO No Longer [facility] oral tablet PO, Drug Form: 2012 Medic al TAB, Dosing Center Weight 65, kg, Q4H, PRN Pain, NOW, Start date: 01/22/13 2:14:00, Duration: 30 day, Stop date: 02/21/13 2:13:00 Remeron 15 mg, 1 tab, PO No Longer [facility] Route: PO, Drug Active 2012 Medical form: TAB, Center Bedtime, Dosing Weight 65, kg, Start date: 01/21/13 21:00:00, Duration: 30 day, Stop date: 02/19/13 21:00:00 hyoscyamine 0.125 mg, 1 PO No Longer [facility] Monster as tab, Route: PO, 2012 Medical Drug form: TAB, Center TID, Dosing Weight 65, kg, Start date: 01/21/13 17:00:00, Duration: 30 day, Stop date: 02/20/13 13:00:00 D5W 1/2NS 1,000 1,000 mL, Rate: IV No Longer [facility] mL 75 ml/hr, Active 2012 Medical Infuse over: Center 13.3 hr, Route: IV, Dosing Weight 65 kg, Total Volume: 1,000, Start date: 01/21/13 15:44:00, Duration: 30 day, Stop date: 02/20/13 15:43:00 Dilaudid 0.5 mg, 0.25 IV No Longer [facility] mL, Route: IV, Active 2012 Medical Drug form: INJ, Center ONCE, Dosing Weight 65, kg, Start date: 01/21/13 14:32:00, Stop date: 01/21/13 14:32:00 Dilaudid 0.5 mg, 0.25 IV No Longer [facility] mL, Route: IV, Active 2012 Medical Drug form: INJ, Center Q8H, Dosing Weight 65, kg, PRN as needed for pain, Start date: 01/21/13 9:39:00, Duration: 30 day, Stop date: 02/20/13 9:38:00 senna 8.6 mg 8.6 mg, 1 tab, PO No Longer [facility] oral tablet Route: PO, Drug Active 2012 [facility] ion Form: TAB, Center Dosing Weight 65, kg, BID, PRN as needed for constipation, Start date: 01/21/13 9:39:00, Duration: 30 day, Stop date: 02/20/13 9:38:00 MiraLax 17 gm, 1 pkt, PO No Longer [facility] Route: PO, Drug Active 2012 Medical form: PWDR, Center Daily, Dosing Weight 65, kg, PRN Constipation, Start date: 01/21/13 9:38:00, Duration: 30 day, Stop date: 02/20/13 9:37:00 tramadol 50 mg 50 mg, 1 tab, PO No Longer [facility] oral tablet Route: PO, Drug Active 2012 Medi ion form: TAB, Q8H, Center Dosing Weight 65, kg, PRN as needed for pain, Start date: 01/21/13 9:38:00, Duration: 30 day, Stop date: 02/20/13 9:37:00 Protonix 40 mg, 1 tab, PO No Longer [facility] Route: PO, Drug Active 2012 Medical form: ECTAB, Center Daily, Dosing Weight 65, kg, Start date: 01/21/13 9:00:00, Duration: 30 day, Stop date: 02/19/13 9:00:00 Dilaudid 0.5 mg, 0.25 IV [facility] Long[facility], [facility]: IV, Active 2012 Medical Drug form: INJ, Center ONCE, Dosing Weight 65, kg, PRN as needed for pain, Start date: 01/20/13 22:21:00 Zosyn 3.375 gm, IVPB No Longer [facility] Route: IVPB, Active 2012 Medical Drug form: Center PDR/INJ, ABXQ8H, Start date: 01/20/13 11:00:00, Stop date: 02/19/13 2:00:00 enoxaparin 40 mg, 0.4 mL, SUB-Q No Longer [place] Route: SUB-Q, Active 2012 Medical Drug form: INJ, Center [id number], Dosing Weight 65, kg, Start date: 01/20/13 6:00:00, Duration: 30 day, Stop date: 02/18/13 6:00:00 NS + KCL 1,000 mL, Rate: IV No Longer [place] 20mEq/L 1000ml 125 ml/hr, Active 2012 Medica l (Premix) 1,000 Infuse over: 8 Ce nter mL hr, Route: IV, Dosing Weight 65 kg, Total Volume: 1,000, Start date: 01/20/13 5:25:00, Duration: 30 day, Stop date: 02/19/13 5:24:00 Zosyn 3.375 gm, IVPB No Longer [place] [facility] Route: IVPB, Active 2012 Medical Drug form: INJ, Center Q6H, Dosing Weight 65, kg, Priority: STAT, Start date: 01/20/13 5:24:00, Duration: 30 day, Stop date: 02/19/13 0:00:00 Dilaudid 0.5 mg, 0.25 IV No Longer [facility] mL, Route: IV, Active 2012 Medical Drug form: INJ, Center Q4H, Dosing Weight 65, kg, PRN as needed for pain, Start date: 01/20/13 5:23:00, Duration: 30 day, Stop date: 02/19/13 5:22:00 docusate Substitution Active [place] Allowed 2012 Medical Center ondansetron 4 mg, 2 mL, IVP No Longer [place] Route: IVP, Active 2012 Medical Drug form: INJ, Center Q8H, Dosing Weight 65, kg, PRN Nausea & Vomiting, Start date: 01/20/13 5:15:00, Duration: 30 day, Stop date: 02/19/13 5:14:00 NS 1,000 mL 1,000 mL, Rate: IV No Longer Catherine Cecilia 75 ml/hr, Active 2012 Medical Infuse over: Center 13.3 hr, Route: IV, Dosing Weight 65 kg, Total Volume: 1,000, Start date: 01/20/13 4:41:00, Duration: 30 day, Stop date: 02/19/13 4:40:00 Zosyn 3.375 gm, IVPB No Longer Sajja [place] Route: IVPB, Active 2012 Medical Drug form: Center PDR/INJ, ONCE, Dosing Weight 65, kg, Priority: STAT, Start date: 01/20/13 3:51:00, Stop date: 01/20/13 3:51:00 fentanyl 50 microgram, IVP No Longer Catherine Monstera s Route: IVP, Active 2012 Medical ONCE, Dosing Center Weight 65, kg, Priority: STAT, Start date: 01/20/13 3:43:00, Stop date: 01/20/13 3:43:00 Zofran 4 mg, 2 mL, IVP No Longer Catherine Cecilia Route: IVP, Active 2012 Medical Drug form: INJ, Center ONCE, Dosing Weight 65, kg, Priority: STAT, Start date: 01/20/13 1:32:00, Stop date: 01/20/13 1:32:00 fentanyl 50 microgram, IVP No Longer Catherine Monstera s Route: IVP, Active 2012 Medical ONCE, Dosing Center Weight 65, kg, Priority: STAT, Start date: 01/19/13 23:31:00, Stop date: 01/19/13 23:31:00 Omnipaque 78 mL, Route: IVP No Longer Catherine Monster as 350mg/ml IVP, Drug Form: Active 2012 Medical SOLN, Dosing Center Weight 65, kg, ONCALL, STAT, Start date: 01/19/13 22:40:00, Duration: 1 doses or times, Weight = 60 - 74kg -- "To be infused by Radiology Staff ONLY"Weight = 60 - 74kg -- "To be infused by Radiology Staff ONLY" NS (Bolus) IV 1,000 mL, Rate: IV No Longer [facility] 1000 mL 1,000 ml/hr, Active 2012 Medical Infuse over: 1 Center hr, Route: IV, Dosing Weight 65 kg, Total Volume: 1,000, Priority: STAT, Start date: 01/19/13 22:38:00, Duration: 1 doses or times, Stop date: 01/19/13 23:37:00, Bolus DoseBolus Dose fentanyl 50 microgram, 1 IVP No Longer [place] mL, Route: IVP, Active 2012 Medical Drug form: INJ, Center ONCE, Dosing Weight 65, kg, Priority: STAT, Start date: 01/19/13 22:13:00, Stop date: 01/19/13 22:13:00 Caltrate 600 + Substitution Active [place] Allowed, 2012 [facility] clorazepate Substitution Active [place] Allowed 2012 [facility] Symax Duotab Substitution Active Monster as Allowed 2012 [facility] Prilosec Substitution Active [place] Allowed 2012 [facility] Premarin Substitution Active [place] Allowed 2012 [facility] Center Allergies, Adverse Reactions, Alerts Substance Category Reaction Severity Reaction Status Date Comments S ource type Reported diazepam<dove Assertion Drug Active Data [facility] p>1</sup> allergy 2 migrated Medic al from [facility] on 12/24/14. Originally documented as VALIUM. midazolam<s Assertion Drug Active Data [facility] up>2</sup> allergy 2 migrated Medi ion from [facility] on 12/24/14. Originally documented as VERSED. morphine<dove Assertion Drug Active Data [facility] p>3</sup> allergy 2 migrated Medic al from [facility] on 12/24/14. Originally documented as MORPHINE. Valium Assertion Drug Active [place] as allergy [facility] morphine drug Allergy Active [place] allergy [facility] cortisone drug Allergy Active [place] as allergy Medical [place] Immunizations No Data Provided for This Section Results Order Name Results Value Reference Date Interpretation Comments Chioma rce Range HEMATOLOGY PT 14.3 12.0 - 10/30 [facility] 14.7 /2019 [facility] HEMATOLOGY INR 1.11 0.85 - 10/30 [facility] 1.17 [facility] HEMATOLOGY PTT 94.8 22.9 - 10/30 [facility] 35.8 /2019 [facility] HEMATOLOGY PT 14.4 12.0 - 10/30 [facility] 14.7 /2019 [facility] HEMATOLOGY INR 1.11 0.85 - 10/30 [facility] 1.17 [facility] HEMATOLOGY PTT 86.8 22.9 - 10/30 [facility] 35.8 /2019 [facility] BLOOD BANK ABO/Rh O POS 10/30 [facility] RESULTS /2019 [facility] BLOOD BANK Antibody Negative 10/30 [facility] RESULTS Scrn (10/31/19 2:51 AM) /2019 [facility] CHEM PANEL Glucose Lvl 91 70 - 99 10/[address] CHEM PANEL BUN 13 7 - 22 10/[address] CHEM PANEL Creatinine 0.70 0.50 - 10/30 [facility] Lvl 1.40 [facility] CHEM PANEL Sodium Lvl 142 135 - 145 10/[address] CHEM PANEL Potassium 4.0 3.5 - 5.1 10/30 [facility] [place] [address] CHEM PANEL Chloride Lvl 108 95 - 109 10/[address] CHEM PANEL CO2 24 24 - 32 10/[address] CHEM PANEL Calcium Lvl 8.5 8.5 - 10.5 10/30 [facility] /[address] [place] [address] CHEM PANEL Total 6.6 6.4 - 8.4 10/30 [facility] Protein [address] CHEM PANEL Albumin Lvl 3.0 3.5 - 5.0 10/[address] CHEM PANEL ALT 16 0 - 65 10/[address] CHEM PANEL AST 20 0 - 37 10/[address] CHEM PANEL Alk Phos 102 39 - 136 10/[address] CHEM PANEL Bili Total 0.4 0.2 - 1.3 10/[address] CHEM PANEL AGAP 14.0 10.0 - 10/30 [place] 20.0 /2019 [facility] CHEM PANEL B/C Ratio 19 6 - 25 10/[address] CHEM PANEL Globulin 3.6 2.7 - 4.2 10/[address] CHEM PANEL A/G Ratio 0.8 0.7 - 1.6 10/[address] CHEM PANEL eGFR 91 10/30 Result [facility] Comment: The Medical eGFR is Center calculated using the CKD-EPI formula. In most [...] should be multiplied by the estimated BMI. HEMATOLOGY WBC 8.0 3.7 - 10.4 10/[address] HEMATOLOGY RBC 3.97 4.20 - 10/30 [place] 5.40 [facility] HEMATOLOGY Hgb 12.5 12.0 - 10/30 [facility] 16.0 [facility] HEMATOLOGY Hct 37.6 36.0 - 10/30 [facility] 48.0 [facility] HEMATOLOGY MCV 94.8 80.0 - 10/30 [facility] 98.0 [facility] HEMATOLOGY MCH 31.4 27.0 - 10/30 [facility] 31.0 [facility] HEMATOLOGY MCHC 33.1 32.0 - 10/30 [place] 36.0 [facility] HEMATOLOGY RDW 13.0 11.5 - 10/30 [facility] 14.5 [facility] HEMATOLOGY Platelet 229 133 - 450 10/[address] HEMATOLOGY MPV 8.8 7.4 - 10.4 10/[address] HEMATOLOGY PT 14.2 12.0 - 10/30 [facility] 14.7 /2019 [facility] HEMATOLOGY INR 1.10 0.85 - 10/30 [place] 1.17 [facility] HEMATOLOGY PTT 64.7 22.9 - 10/30 [facility] 35.8 /2020 [facility] HEMATOLOGY Segs 63.4 45.0 - 10/30 [facility] 75.0 /2020 [facility] Center HEMATOLOGY Lymphocytes 26.0 20.0 - 10/30 [facility] 40.0 /2020 [facility] Center HEMATOLOGY Monocytes 8.5 2.0 - 12.0 10/30 [employer] HEMATOLOGY Eosinophils 1.6 0.0 - 4.0 10/30 [place] /2020 [facility] Center HEMATOLOGY Basophils 0.5 0.0 - 1.0 10/30 [employer]2020 [facility] HEMATOLOGY Neutrophils 5.1 1.5 - 8.1 10/30 [place] # /2020 [facility] HEMATOLOGY Lymphocytes 2.1 1.0 - 5.5 10/30 [facility] # /2020 [facility] HEMATOLOGY Monocytes # 0.7 0.0 - 0.8 10/30 [facility] HEMATOLOGY Eosinophils 0.1 0.0 - 0.5 10/30 [facility] # /2020 [facility] Center HEMATOLOGY Sed Rate 2 < OR = 30 03/15 Result June mm/hr Comment: Neuro
Lab test performed by:
[facility]
[address]
[place] [address]
Bryan Carpenter HEMATOLOGY SS-A (Ro) Ab <1.0 NEG <1.0 NEG 03/15 [facility] Comment: [facility]
Lab test performed by:
[facility]
[address]
[place] [address]
[address]. Bryan Carpenter HEMATOLOGY SS-B ([place]) Ab <1.0 NEG <1.0 NEG 03/15 Mische r Neuro HEMATOLOGY Varicella 775.20 03/15 Result June IgG Comment: Neuro Index Interpretatio n
--------- [...] Immunity Screen, ACIF.

Lab test performed by:
[facility]
[address]
[place] [address]
Dr. Bryan Carpenter HEMATOLOGY EBV VCA IgM 62.60 03/15 Result [facility] Comment: Neuro U/mL Interpretatio n
---- -
<36.00 Negative
36.00-43.99 Equivocal<br/ > >43.99 Positive

Lab test performed by:
[facility]
[address]
[place] [address]
Dr. Bryan Carpenter HEMATOLOGY ANGIOTENSIN 9 9 - 67 03/15 Result [facility] CONVERTING Comment: Neuro ENZYME
Lab test performed by:
[facility]
[address]
[place] [address]
Dr. Bryan Carpenter HEMATOLOGY Varicella 0.69 03/15 Result [facility] Comment: Neuro Value Interpretatio n
-
0.00-0.90 [...]
<br/& gt;FASTING: YES

Lab test performed by:
[facility]
[address]
[place] [id number]
[address] Bryan Carpenter URINE AND UA Blood Negative Negative 05/06 STOOL (05/06/17 3:21 PM) [place] URINE AND UA Nitrite Negative Negative 05/06 STOOL (05/06/17 3:21 PM) [place] URINE AND UA Bili Negative Negative 05/06 STOOL *NA* /2017 [place] (05/06/17 3:21 PM) URINE AND UA Leuk Est Negative Negative 05/06 [facility] (05/06/17 3:21 PM) [place] URINE AND UA Sq Epi Few /LPF Few /LPF 05/06 STOOL [facility] URINE AND UA Protein 30 mg/dL Negative 05/06 [facility]OOL mg/dL [place] URINE AND UA Ketones 20 mg/dL Negative 05/06 STOOL mg/dL [place] URINE AND UA Glucose Negative Negative 05/06 [facility] mg/dL mg/dL [place] URINE AND UA <=1.0 0.1 - 1.0 05/06 STOOL Urobilinogen mg/dL [place] URINE AND UA RBC 1 0 - 2 05/06 STOOL [place] URINE AND UA Mucus Few /LPF None Seen 05/06 MH STOOL /LPF [place] URINE AND UA WBC 2 0 - 5 05/06 STOOL [place] URINE AND UA Color Yellow Yellow 05/06 [facility] *NA* /2017 [facility] (05/06/17 3:21 PM) URINE AND UA Spec Grav 1.019 <=1.030 05/06 STOOL [place] URINE AND UA pH 5.0 5.0 - 8.0 05/06 STOOL [place] URINE AND UA Turbidity Slight Clear 05/06 STOOL *ABN* /2017 [facility] (05/06/17 3:21 PM) CHEM PANEL Lipase Lvl 166 73 - 393 05/06 [facility] CHEM PANEL Amylase Lvl 42 25 - 115 05/06 [facility] ELECTROLYTE Chloride Lvl 100 95 - 109 05/06 S [facility] ELECTROLYTE Sodium Lvl 139 135 - 145 05/06 S [place] ELECTROLYTE Potassium 4.0 3.5 - 5.1 05/06 S Lvl [place] ELECTROLYTE eGFR 41 05/06 MH Comment: The [facility] eGFR is calculated using the CKD-EPI formula. [...] Total 0.7 0.2 - 1.3 05/06 S [place] ELECTROLYTE Alk Phos 82 39 - 136 05/06 S [place] ELECTROLYTE A/G Ratio 1.0 0.7 - 1.6 05/06 S [place] ELECTROLYTE ALT 19 0 - 65 05/06 S [place] ELECTROLYTE AST 15 0 - 37 / MH S [place] ELECTROLYTE Globulin 4.1 2.7 - 4.2 01/ MH S /2017 [facility] ELECTROLYTE Albumin Lvl 4.3 3.5 - 5.0 05/06 MH S [place] ELECTROLYTE B/C Ratio 18 6 - 25 01 MH S [place] ELECTROLYTE Calcium Lvl 9.4 8.5 - 10.5 01 MH S [place] ELECTROLYTE Total 8.4 6.4 - 8.4 05/06 MH S [place] ELECTROLYTE CO2 27 24 - 32 05/06 MH S [place] ELECTROLYTE AGAP 16.0 10.0 - 05/06 MH S 20.0 [place] ELECTROLYTE Creatinine 1.36 0.50 - 05/06 MH S Lvl 1.40 [place] ELECTROLYTE BUN 24 7 - 22 05/06 MH S [place] ELECTROLYTE Glucose Lvl 77 70 - 99 05/06 MH S [place] HEMATOLOGY Lymphocytes 2.3 1.0 - 5.5 05/06 MH # /2017 [facility] HEMATOLOGY Monocytes # 0.8 0.0 - 0.8 05/06 [facility] HEMATOLOGY Eosinophils 0.2 0.0 - 4.0 05/06 MH [place] HEMATOLOGY Basophils 0.4 0.0 - 1.0 05/06 [facility] HEMATOLOGY Segs-Bands # 6.4 1.5 - 8.1 05/06 [facility] HEMATOLOGY Lymphocytes 24.4 20.0 - 05/06 MH 40.0 [facility] HEMATOLOGY Monocytes 8.1 2.0 - 12.0 05/06 [facility] HEMATOLOGY Segs 66.9 45.0 - 05/06 MH 75.0 [facility] HEMATOLOGY MPV 8.4 7.4 - 10.4 05/06 [facility] HEMATOLOGY Platelet 287 133 - 450 05/06 [facility] HEMATOLOGY MCH 32.4 27.0 - 05/06 MH 31.0 [facility] HEMATOLOGY RDW 12.5 11.5 - 05/06 MH 14.5 [facility] HEMATOLOGY MCV 91.5 80.0 - 05/06 MH 98.0 [facility] HEMATOLOGY MCHC 35.4 32.0 - 05/06 MH 36.0 [facility] HEMATOLOGY Hct 42.5 36.0 - 01 48.0 /2017 [facility] HEMATOLOGY WBC 9.6 3.7 - 10.4 05/06 [facility] HEMATOLOGY Hgb 15.1 12.0 - 05/06 16.0 [facility] HEMATOLOGY RBC 4.65 4.20 - 05/06 5.40 /2017 [facility] CHEMISTRY eGFR 95 01/23 NA <sup>1</sup>R esult [...] CHEMISTRY AGAP 12.9 10.0 - 01/23 Normal [facility] 20.0 [facility] CHEMISTRY Calcium Lvl 8.5 8.5 - 10.5 01/23 Normal a [facility] CHEMISTRY Glucose Lvl 75 70 - 99 01/23 Normal <sup>4</sup>I T nterpretive Medical Data: Adult Center reference range values reflect the clinical guidelines
of the [place] [employer]. CHEMISTRY CO2 28 24 - 32 01/23 Normal [facility] CHEMISTRY Chloride Lvl 106 95 - 109 01/23 Normal [facility] CHEMISTRY Potassium 3.9 3.5 - 5.1 01/23 Normal [facility] CHEMISTRY BUN 5 7 - 22 01/23 LOW [facility] CHEMISTRY Creatinine 0.7 0.5 - 1.4 01/23 Normal [facility] CHEMISTRY Sodium Lvl 143 135 - 145 01/23 Normal [facility] HEMATOLOGY MPV 8.4 7.4 - 10.4 01/23 Normal [facility] HEMATOLOGY RBC 3.95 4.20 - 01/23 LOW [facility] [place] 5.40 /2012 [facility] HEMATOLOGY WBC [...] 36.5 20.0 - 01/23 Normal [place] 40.0 [facility] Center HEMATOLOGY Monocytes 10.0 2.0 - 12.0 01/23 Normal Medical [facility] HEMATOLOGY Monocytes # 0.6 0.0 - 0.8 01/23 Normal a [facility] HEMATOLOGY Eosinophils 0.1 0.0 - 0.5 01/23 [place] [facility] HEMATOLOGY Segs-Bands # 2.9 1.5 - 8.1 01/23 Normal [facility] /2012 [facility] HEMATOLOGY Lymphocytes 2.1 1.0 - 5.5 01/23 [place] # /2012 [facility] HEMATOLOGY Eosinophils 2.2 0.0 - 4.0 01/23 [place] [facility] HEMATOLOGY Basophils 0.4 0.0 - 1.0 01/23 Normal [facility] CHEMISTRY Lipase Lvl 109 73 - 393 01/22 Normal [facility] CHEMISTRY Globulin 3.1 2.0 - 4.0 01/22 Normal [facility] CHEMISTRY A/G Ratio 1.0 0.7 - 1.6 01/22 [facility] CHEMISTRY B/C Ratio 4 6 - 25 01/22 [facility] CHEMISTRY AGAP 11.9 10.0 - 01/22 [facility] 20.0 [facility] CHEMISTRY eGFR 95 01/22 NA <sup>2</sup>R esult [...] CHEMISTRY AST 16 0 - 37 01/22 [facility] CHEMISTRY CO2 26 24 - 32 01/22 [facility] CHEMISTRY Calcium Lvl 8.0 8.5 - 10.5 01/22 [facility] [place] [facility] CHEMISTRY Total 6.1 6.4 - 8.4 01/22 [facility] Protein [facility] CHEMISTRY Bili Total 0.5 0.2 - 1.3 01/22 [facility] CHEMISTRY Creatinine 0.7 0.5 - 1.4 01/22 [facility] CHEMISTRY Sodium Lvl 140 135 - 145 01/22 [facility] CHEMISTRY Chloride Lvl 106 95 - 109 01/22 [facility] CHEMISTRY Potassium 3.9 3.5 - 5.1 01/22 [facility] CHEMISTRY ALT 20 0 - 65 01/22 [facility] CHEMISTRY BUN 3 7 - 22 01/22 [facility] CHEMISTRY Glucose Lvl 115 70 - 99 01/22 [place] <sup>5</sup>I MH T ex nterpretive Medical Data: Adult Center reference range values reflect the clinical guidelines
of the [place] [employer]. CHEMISTRY Alk Phos 74 39 - 136 01/22 Normal [facility] CHEMISTRY Albumin Lvl 3.0 3.5 - 5.0 01/22 LOW [facility] HEMATOLOGY Eosinophils 0.1 0.0 - 0.5 01/22 [place] HEMATOLOGY Basophils 0.3 0.0 - 1.0 01/22 Normal [facility] HEMATOLOGY Segs-Bands # 2.8 1.5 - 8.1 01/22 Normal [facility] HEMATOLOGY Lymphocytes 2.0 1.0 - 5.5 01/22 [place] # /2012 [facility] HEMATOLOGY Monocytes # 0.6 0.0 - 0.8 01/22 [place] [facility] HEMATOLOGY Lymphocytes 35.5 20.0 - 01/22 Normal [place] 40.0 Medical Center HEMATOLOGY Monocytes 11.0 2.0 - 12.0 01/22 Normal [facility] HEMATOLOGY Eosinophils 2.1 0.0 - 4.0 01/22 Normal a s [facility] HEMATOLOGY Segs 51.1 45.0 - 01/22 Normal [place] 75.0 /2012 Medical Center HEMATOLOGY Sed Rate 15 0 - 20 01/22 Normal [facility] HEMATOLOGY MCHC 34.6 32.0 - 01/22 Normal [place] 36.0 /2012 [facility] Center HEMATOLOGY MCH 32.8 27.0 - 01/22 HI [place] 31.0 /2012 [facility] HEMATOLOGY RDW 12.3 11.5 - 01/22 Normal [place] 14.5 /2012 Medical Center HEMATOLOGY MPV 8.2 7.4 - 10.4 01/22 Normal [facility] HEMATOLOGY Platelet 189 133 - 450 01/22 Normal [facility] HEMATOLOGY RBC 3.63 4.20 - 01/22 LOW [place] 5.40 /2012 Medical Center HEMATOLOGY WBC 5.5 3.7 - 10.4 01/22 Normal [facility] HEMATOLOGY Hgb 11.9 12.0 - 01/22 LOW [place] 16.0 /2012 Medical Center HEMATOLOGY Hct 34.5 36.0 - 09/22 LOW [facility] 48.0 [facility] HEMATOLOGY MCV 94.9 81.0 - 01/22 Normal [facility] 99.0 [facility] TUMOR CA 19-9 7.0 0.0 - 35.0 01/22 Normal [facility] CHEMISTRY Lactic Acid 0.9 0.5 - 2.2 01/21 Normal [facility] CHEMISTRY eGFR 95 01/21 NA <sup>3</sup>R esult [...] Potassium 4.1 3.5 - 5.1 01/21 Normal [facility] CHEMISTRY Chloride Lvl 107 95 - 109 01/21 [facility] CHEMISTRY Sodium Lvl 140 135 - 145 01/21 [facility] CHEMISTRY Glucose Lvl 102 70 - 99 01/21 [place] <sup>6</sup>I T ex nterpretive Medical Data: Adult Center reference range values reflect the clinical guidelines
of the [place] [employer]. CHEMISTRY BUN 7 7 - 22 01/21 Normal [facility] CHEMISTRY CO2 25 24 - 32 01/21 Normal [facility] CHEMISTRY Calcium Lvl 8.2 8.5 - 10.5 01/21 [place] [facility] CHEMISTRY Creatinine 0.7 0.5 - 1.4 01/21 Normal [facility] CHEMISTRY AGAP 12.1 10.0 - 01/21 Normal [place] 20.0 /2012 Medical Center CHEMISTRY Ketone 1.38 <=0.27 01/21 [facility] [place] [facility] CHEMISTRY Magnesium 1.8 1.8 - 2.4 01/21 Normal [place] Lvl [facility] CHEMISTRY Lipase Lvl 119 73 - 393 01/21 Normal [facility] CHEMISTRY Alk Phos 66 39 - 136 01/21 Normal [facility] CHEMISTRY ALT 18 0 - 65 01/21 Normal [facility] CHEMISTRY Albumin Lvl 2.9 3.5 - 5.0 01/21 LOW [facility] CHEMISTRY AST 24 0 - 37 01/21 Normal [facility] CHEMISTRY Bili Total 0.7 0.2 - 1.3 01/21 Normal [facility] CHEMISTRY Total 5.7 6.4 - 8.4 01/21 LOW [facility] CHEMISTRY B/C Ratio 22 6 - 25 01/21 Normal [facility] CHEMISTRY A/G Ratio 1.0 0.7 - 1.6 01/21 Normal [facility] CHEMISTRY Globulin 2.8 2.0 - 4.0 01/21 Normal [facility] HEMATOLOGY Monocytes 8.6 2.0 - 12.0 01/21 Normal [facility] HEMATOLOGY Lymphocytes 23.8 20.0 - 01/21 Normal [place] 40.0 /2012 Medical Center HEMATOLOGY Eosinophils 0.6 0.0 - 4.0 01/21 Normal s [facility] HEMATOLOGY Segs 66.4 45.0 - 01/21 Normal [place] 75.0 Medical Center HEMATOLOGY Monocytes # 0.8 0.0 - 0.8 01/21 Normal a s [facility] HEMATOLOGY Lymphocytes 2.1 1.0 - 5.5 01/21 [place] # /2012 [facility] HEMATOLOGY Basophils 0.6 0.0 - 1.0 01/21 Normal [facility] HEMATOLOGY Segs-Bands # 5.9 1.5 - 8.1 01/21 Normal [facility] HEMATOLOGY Eosinophils 0.1 0.0 - [...] MPV 8.5 7.4 - 10.4 01/21 Normal [facility] HEMATOLOGY Platelet 168 133 - 450 01/21 Normal /2012 [facility] Center HEMATOLOGY RBC 3.52 4.20 - 01/21 LOW [place] 5.40 /2012 Medical Center HEMATOLOGY WBC 8.9 3.7 - 10.4 01/21 Normal Medical [facility] URINALYSIS Micro? Performed 01/20 Normal [facility] (01/19/2013 23:30:05) Al dical Center URINALYSIS UA WBC None Seen None Seen 01/20 Normal [facility] (01/19/2013 23:30:05) Al dical Center URINALYSIS UA Sq Epi Few /LPF Few 01/20 Normal [facility] (01/19/2013 23:30:05) Al dical Center URINALYSIS UA RBC None Seen 0 - 2 01/20 Normal [facility] (01/19/2013 23:30:05) Me dical Center URINALYSIS UA Blood Negative Negative 01/20 Normal [facility] (01/19/2013 23:30:05) Al dical Center URINALYSIS UA 0.2 0.1 - 1.0 01/20 Normal [facility] Urobilinogen /2012 Medical Center URINALYSIS UA Bili Negative Negative 01/20 NA [place] *NA* /2012 Medical (01/19/2013 23:30:05) Ce nter URINALYSIS UA Nitrite Negative Negative 01/20 Normal [facility] (01/19/2013 23:30:05) Me dical Center URINALYSIS UA Leuk Est Negative Negative 01/20 Normal [facility] (01/19/2013 23:30:05) Al dical Center URINALYSIS UA Glucose Negative mg/dL Negative 01/20 Normal [facility] (01/19/2013 23:30:05) Al dical Center URINALYSIS UA Ketones Negative mg/dL Negative 01/20 NA *NA* Medical (01/19/2013 23:30:05) Ce nter URINALYSIS UA pH 8.0 5.0 - 8.0 01/20 Normal [facility] URINALYSIS UA Protein Negative mg/dL Negative 01/20 Normal [facility] (01/19/2013 23:30:05) Al dical Center URINALYSIS UA Turbidity Clear Clear 01/20 Normal [facility] (01/19/2013 23:30:05) Al dical Center URINALYSIS UA Spec Grav 1.015 <=1.030 01/20 Normal [facility] URINALYSIS UA Color Yellow Yellow 01/20 NA /2012 Medical (01/19/2013 23:30:05) Ce nter CHEMISTRY Lipase Lvl 345 73 - 393 01/20 Normal [facility] CHEMISTRY Total 7.3 6.4 - 8.4 01/20 Normal [facility] CHEMISTRY Bili Total 0.5 0.2 - 1.3 01/20 Normal [facility] CHEMISTRY Albumin Lvl 3.8 3.5 - 5.0 01/20 Normal [facility] CHEMISTRY ALT 30 0 - 65 01/20 Normal [facility] CHEMISTRY Alk Phos 81 39 - 136 01/20 Normal [facility] CHEMISTRY Bili Direct 0.1 0.0 - 0.3 01/20 Normal [facility] CHEMISTRY AST 23 0 - 37 01/20 Normal [facility] CHEMISTRY Globulin 3.5 2.0 - 4.0 01/20 Normal [facility] CHEMISTRY A/G Ratio 1.1 0.7 - 1.6 01/20 Normal [facility] CHEMISTRY Bili 0.4 0.0 - 1.0 01/20 Normal [facility] HEMATOLOGY Basophils # 0.1 0.0 - 0.2 01/20 Normal [place] [facility] /2012 Medical Center Pathology Reports No Data Provided for This Section Diagnostic Reports Report Value Date Source Chest 1 v for EXAM: XR CHEST 1 VIEW 10/30/2019 Cecilia Peralta edical Placement DX DATE: 10/31/2019 3:29 CDT [...] pain since last admission in march/DLP:1306.16mGy-cm 05/06/2017 [facility] contrast only CT Comparison: [...] mild asymmetry in the renal size. SL: [id number] Abdomen/Pelvis CTA EXAM: CTA ABDOMEN. 01/22/2013 [facility] edical EXAM: CTA PELVIS. Center DATE: January [...] CT ABDOMEN AND PELVIS, W/O CONTRAST 01/02 [facility] contrast CT Center DATE: 01/20/2013 at 0314hours [...] CT ABDOMEN AND PELVIS, W/ CONTRAST, 01/19 [facility] contrast CT Center DATE: 01/20/2013 at 12 [...] . Bony pelvis and spine: No ac [place] abnormality . L5-S1 disc degenerative change and [...] Chest 1view EXAM: CHEST 1 VIEW 01/19/2013 [facility] DATE: January 19, 2013 at [...] Signs Vital Sign Value Date Comments Source Temperature Oral (F) 98.1 F 10/31/2019 [facility] Heart Rate 73 10/31/2019 [facility] Respitory Rate 20 10/31/2019 [facility] Systolic (mm Hg) 140 10/31/2019 [facility] dical [facility] Diastolic (mm Hg) 84 10/31/2019 [facility] Temperature Oral (F) 98.2 F 10/31/2019 [facility] Heart Rate 80 10/31/2019 [facility] Respitory Rate 20 10/31/2019 [facility] ion Center Systolic (mm Hg) 160 10/31/2019 [facility] dical Center Diastolic (mm Hg) 90 10/[facility] Temperature Oral (F) 97.9 F 10/31/2019 [facility] Heart Rate 66 10/31/2019 [facility] Respitory Rate 20 10/31/2019 [facility] Center Systolic (mm Hg) 137 10/31/2019 [facility] dical Center Diastolic (mm Hg) 70 10/31/2019 [facility] Height 167.64 cm 10/31/2019 [facility] Weight 79.091 10/31/2019 [facility] BMI Calculated 28.14 10/31/2019 [facility] ion Center Systolic (mm Hg) 118 05/05/2019 [facility] [...] [facility] Heart Rate 81 03/22/2019 [facility] [...] [facility] Heart Rate 75 12/21/2018 [facility] Respitory Rate 16 12/21/2018 [facility] Height 165.1 cm 12/21/2018 [facility] Weight 85 12/21/2018 [facility] BMI Calculated 31.18 12/21/2018 [facility] BMI Calculated 29.6 10/19/2018 [facility] Height 167.64 cm 10/19/2018 [facility] Weight 83.182 10/19/2018 [facility] Systolic (mm Hg) 106 10/19/2018 [facility] Diastolic (mm Hg) 70 10/19/2018 [facility] Respitory Rate 16 10/19/2018 [facility] Heart Rate 74 10/19/2018 [facility] BMI Calculated 27.5 09/08/2018 [facility] Weight 77.273 09/08/2018 [facility] Height 167.64 cm 09/08/2018 [facility] Respitory Rate 16 09/08/2018 [facility] Heart Rate 87 09/08/2018 [facility] Systolic (mm Hg) 105 09/08/2018 [facility] Diastolic (mm Hg) 68 09/08/2018 [facility] Heart Rate 72 05/07/2017 [facility] Systolic (mm Hg) 115 05/07/2017 [facility] [place] Diastolic (mm Hg) 68 05/07/2017 [facility] [place] Respitory Rate 16 05/07/2017 [facility] [place] Temperature Oral (F) 98.0 F 05/07/2017 [facility] [place] Temperature Oral (F) 97.7 F 05/07/2017 [facility] [place] Systolic (mm Hg) 111 05/07/2017 [facility] [place] Diastolic (mm Hg) 65 05/07/2017 [facility] [place] Heart Rate 70 05/07/2017 [facility] [place] Respitory Rate 17 05/07/2017 [facility] Weight 61.364 05/06/2017 [facility] Temperature Oral (F) 98.2 F 05/06/2017 [facility] [place] Heart Rate 83 05/06/2017 [facility] [place] Respitory Rate 18 05/06/2017 [facility] [place] Systolic (mm Hg) 102 05/06/2017 [facility] [place] Diastolic (mm Hg) 55 05/06/2017 [facility] [place] Heart Rate 79 01/23/2013 [facility] Temperature Oral (F) 98.1 F 01/23/2013 [facility] Respitory Rate 18 01/23/2013 [facility] ion Center Systolic (mm Hg) 133 01/23/2013 [facility] dical Center Diastolic (mm Hg) 69 01/23/2013 [facility] edical Center Diastolic (mm Hg) 68 01/23/2013 [facility] edical Center Systolic (mm Hg) 129 01/23/2013 [facility] dical Center Heart Rate 67 01/23/2013 [facility] Medica l Center Respitory Rate 18 01/23/2013 [facility] ion Center Temperature Oral (F) 98.4 F 01/23/2013 [facility] Heart Rate 65 01/23/2013 [facility] Systolic (mm Hg) 106 01/23/2013 [facility] dical Center Respitory Rate 18 01/23/2013 [facility] ion Center Diastolic (mm Hg) 59 01/23/2013 [facility] edical Center Temperature Oral (F) 98.5 F 01/23/2013 [facility] Center Height 158.4 cm 01/20/2013 [facility] Height 160.02 cm 01/20/2013 [facility] Center Weight 65 01/20/2013 [facility] Weight 65 01/16/2013 [facility] Diastolic (mm Hg) 78 01/16/2013 [facility] edical Center Systolic (mm Hg) 119 01/16/2013 [facility] dical Center Temperature Oral (F) 98.5 F 01/16/2013 [facility] Center Respitory Rate 18 01/16/2013 [facility] ion Center Heart Rate 87 01/16/2013 [facility] Encounters Location Location Encounter Encounter Reason Attending ADM SD Stat us Source Details Type Number For Provider Date Date Visit [facility] Outpatient [id number] ABD ATILLA 01/16 Active [facility] 0 [facility]IN [facility] RAULITO [id number] ATILLA 01/19 01/19 Discharg [facility] 1 ERTAN /2012 [facility] Center [facility] Inpatient [id number] HILARY 01/20 01/23 Dischar g [facility] Medical 3 SAJJA /2012 [facility] Emergency [id number] [place] 05/06 05/07 [facility] 4 [place] /2017 [place] [facility] Outpatient [id number] ANGELA 07/15 [facility] [id number] ANGELA 07/15 [facility] [place] [facility] [id number] Angela 08/03 [facility] [id number] ANGELA / Active [facility] Phone [id number] 08/18 08/20 [facility] [place] Out[facility] [id number] Angela 09/08 [facility] Outpatient [id number] Angela 09/08 09/09 [facility] 4 [facility] [place] Outpatient [id number] Angela 10/19 [facility] Outpatient [id number] Angela 10/19 10/20 [facility] 5 [facility] [place] Outpatient [id number] Angela 12/21 Active [facility] Outpatient [id number] Angela 12/21 12/22 [facility] 6 [facility] [place] Outpatient [id number] Angela 03/15 Active [facility] [place] [facility] Outpatient [id number] Angela 03/15 03/16 [facility] 7 [facility] [place] Outpatient [id number] Angela 03/22 Active [facility] Outpatient [id number] Angela 03/22 03/23 [facility] 8 [facility] [place] Outpatient [id number] Angela 05/05 Active [facility] Outpatient [id number] Angela 05/05 05/06 [facility] 9 [facility] [place] Outpatient [id number] Angela 08/03 Active [facility] 0 [facility] Ambulatory [id number] Angela 08/03 08/03 [facility] Pre-Reg 0 [facility] [place] [facility] [id number] Afnan 10/30 10/[address] /2019 [facility] Outpatient [id number] POST ATILLA Cancel [facility] [address] 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 Patient likely has provoked PE with pulm onary infarction and hemorrhage, DVT in setting of recent lumbosacral plexopathy. Patient also noted to be on estrogen for her history of menopausal symptoms. PES I score is 65, reflecting class I (very low risk group) with a 30 day mortality of 0-1.6%. 1.Pulmonary embolus and infarction(I26.99) Ordered: Admit/Condition, 10/31/19 2:06:00 Alf DOE: Out Patient with Observation Services, Telemetry Capable Location, Location: [address] [place] [address], Expected LOS: 2 Midnights, Yung Busch DO, Admit Review /Approve Yes, Isolation: No Isolation/Standard Precautions, Acute... 2.DVT of lower limb, acute(I82.409) -provoked in setting of recent surgery and estrogen use -hold estrogen for now -c/w heparin gtt given pulmonary infarct ion, transition to NOAC if demonstrates further clinical stability -PESI score as above -patient counseled on risks/benefits of anticoagulation which she expressed understanding of, will need at least 3-6 months of AC as no prior history of VTE 3.Cervical spondylosis(M47.812) -CT neck at OSH without acute abnormalities 4.HTN - Hypertension(I10) -hold quinapril for now as normotensive 5.Meralgia paresthetica(G57.10) -resume home pain medications including 6.Acute pain(R52) -already on MMP, add IV dilaudid for breakthrough pain 7.Menopause syndrome(N95.1) -hold estrogen, patient counseled on increased risk of throm bosis heparin gtt Monitor overnight due to pulmonary inf arction and hemorrhage, patient is very low risk category so she can potentially be discharged later in the day versus next day pending clinical stabililty Addendum by Smith Estevez DO on 10/31/2019 06:18 CDT Patient has LUE midline. Not PICC. Plan of Care No Data Provided for This Section Social History Social History Date Source Social History TypeResponse 10/31/2019 [facility] Alcohol Never Employment/School 1 Substance Abuse Use: None. Smoking Status Never smoker; Exposure to Tobacco Smoke None; Cigarette Smoking Last 365 Days No; Reg Smoking Cessation Counseling No entered on: 10/31/19 1May reledase medical information to Tao Hernandez ouse Social History TypeResponse 07/18/2018 [employer] [facility] o Employment/School 1 Smoking Status Never smoker; Exposure to Tobacco Smoke None; Cigarette Smoking Last 365 Days No; Reg Smoking Cessation Counseling No entered on: 05/05/19 1May reledase medical information to Tao Hernandez ouse No data available for this 05/07/2017 [place] section Family History No Data Provided for This Section Advance Directives No Data Provided for This Section Functional Status No Data Provided for This Section
--- OUTSIDE RECORDS SUMMARY | 2019-11-04 08:07 | XMS REPORT | Summary of Care ---
:1955 Author Organization [facility] Address [address] [place] [id number]- Encounter HQ Jam_chey(DAVID) [id number] Date(s): 10/31/19 - 10/31/[address] Professional Services provided by [facility] [place] [address]- Discharge Disposition: Home or Self Care Attending Physician: Yung Busch DO Admitting Physician: Mihir Hannah MD Referring Physician: Zain Sanchez MD Vital Signs Most recent to oldest 1 2 3 [Reference Range]: Height 167.64 cm (10/31/19 2:23 AM) Temperature Oral [96.4-99.1 98.1 DegF 98.2 DegF 97.9 DegF DegF] (10/31/19 3:24 PM) (10/31/19 11:12 AM) (10/31/19 7: 25 AM) Blood Pressure [90-140/60-90 140/84 mmHg 160/90 mmHg 137 /70 mmHg mmHg] (10/31/19 3:24 PM) *HI* (10/31/19 7:25 AM) (10/31/19 11:12 AM) Respiratory Rate [14-20 BRMIN] 20 BRMIN 20 BRMIN 2 0 BRMIN (10/31/19 3:24 PM) (10/31/19 11:12 AM) (10/31/19 7: 25 AM) Peripheral Pulse Rate [60-100 73 bpm 80 bpm 66 bpm bpm] (10/31/19 3:24 PM) (10/31/19 11:12 AM) (10/31/19 7: 25 AM) Weight 79.091 kg (10/31/19 2:23 AM) Body Mass Index 28.14 m2 (10/31/19 2:23 AM) Problem List Condition Effective Dates Status Health Status Informant Acid reflux(Confirmed) Resolved Cervical spondylosis(Confirmed) Active HTN - Hypertension(Confirmed) Active Lumbosacral plexopathy(Confirmed) Resolved Menopause syndrome(Confirmed) Active Meralgia paresthetica(Confirmed) Active Pituitary adenoma1 Active Leg ulcer(Confirmed) Active 1Data migrated from Surgient on 12/25/14. Allergies, Adverse Reactions, Alerts Substance Reaction Severity Status diazepam1 Active midazolam2 Active morphine3 Active Valium Active 1Data migrated from Surgient on 12/24/14. Originally documented as VALIUM.2 Data migrated from Surgient on 12/24/14. Originally documented as VERSED.3 Data migrated from Surgient on 12/24/14. Originally documented as MORPHINE. Medications acetaminophen-hydrocodone 325 mg-10 mg oral tablet 1 tab, Route: PO, Drug Form: TAB, Dosing Weight 83.636, kg, Q6H, PRN Pain Score 7-10, Start date: 10/31/19 2:17:00 CDT, Duration: 30 day, Stop date: 11/30/19 2:16:00 CDT, 0 Notes: Do not exceed 4gm/day of acetaminophen. (Same as: [place] 325/10) Start Date: 10/31/19 Stop Date: 10/31/19 Status: Discontinuedacetaminophen-oxycodone 325 mg-10 mg oral tablet 1 tab, PO, Q6H, PRN for pain, 0 Refill(s) Start Date: 10/31/19 Status: Orderedaspirin 81 mg tablet, enteric coated 81 mg, 1 tab, Route: PO, Drug form: ECTAB, Daily, Dosing Weight 83.636, kg, Start date: 10/31/19 9:00:00 CDT, Duration: 30 day, Stop date: 11/29/19 9:00:00 CDT, 0 Notes: Do not crush or chew.(Same As: Ecotrin) Start Date: 10/31/19 Stop Date: 10/31/19 Status: Discontinuedclorazepate 7.5 mg, 2 tab, Route: PO, Drug form: TAB, TID, Dosing Weight 83.636, kg, PRN Anxiety, Start date: 10/31/19 2:17:00 CDT, Duration: 30 day, Stop date: 11/30/19 2:16:00 CDT, 0 Notes: (Same As: Tranxene-T) Start Date: 10/31/19 Stop Date: 10/31/19 Status: Discontinuedclorazepate 7.5 mg oral tablet 7.5 mg = 1 tab, PO, Daily, 0 Refill(s) Start Date: 10/31/19 Status: Orderedclorazepate 7.5 mg oral tablet 7.5 mg = 1 tab, PO, TID, PRN Anxiety, 0 Refill(s) Start Date: 10/31/19 Stop Date: 10/31/19 Status: DiscontinuedDextrose 50% Syringe (D50W) 12.5 gm, 25 mL, Route: IVP, Drug Form: INJ, Dosing Weight 83.636, kg, PRN, PRN Blood Glucose Results, Start date: 10/31/19 2:06:00 CDT, Duration: 30 day, Stop date: 11/30/19 2:05:00 CDT, 0 Start Date: 10/31/19 Stop Date: 10/31/19 Status: DiscontinuedDextrose 50% Syringe (D50W) 25 gm, 50 mL, Route: IVP, Drug Form: INJ, Dosing Weight 83.636, kg, PRN, PRN Blood Glucose Results, Start date: 10/31/19 2:06:00 CDT, Duration: 30 day, Stop date: 11/30/19 2:05:00 CDT, 0 Start Date: 10/31/19 Stop Date: 10/31/19 Status: DiscontinuedEliquis Starter Pack 5 mg oral tablet 5 mg = 1 tab, PO, BID, # 60 tab, 0 Refill(s), Pharmacy: [facility]/pharmacy #[id number], 167.64, cm, 10/31/19 2:23:00 CDT, Height, 79.091, kg, 10/31/19 2:23:00 CDT, Weight Start Date: 10/31/19 Stop Date: 11/30/19 Status: Orderedglucagon 1 mg, Route: IM, Drug form: PDR/INJ, PRN, Dosing Weight 83.636, kg, PRN Blood Glucose Results, Startdate: 10/31/19 2:06:00 CDT, Duration: 30 day, Stop date: 11/30/19 2:05:00 CDT, 0 Start Date: 10/31/19 Stop Date: 10/31/19 Status: DiscontinuedHeparin 40 unit/kg Bolus (Heparin Dosing Weight) Route: IVP, PRN, 2,700 unit, 2.7 mL, Drug form: INJ, PRN, Heparin Protocol, Start date: 10/31/19 2:25:00 CDT Stop date: 11/30/19 2:24:00 CDT, 30 day, 0 Start Date: 10/31/19 Stop Date: 10/31/19 Status: DiscontinuedHeparin 80 unit/kg Bolus (Heparin Dosing Weight) Route: IVP, PRN, 5,400 unit, 5.4 mL, Drug form: INJ, PRN, Heparin Protocol, Start date: 10/31/19 2:25:00 CDT Stop date: 11/30/19 2:24:00 CDT, 30 day, 0 Start Date: 10/31/19 Stop Date: 10/31/19 Status: Discontinuedheparin additive 25,000 unit [18 unit/kg/hr] + Premix Diluent Sodium Chloride 0.45% 500 mL 500 mL, Rate: 24.2 ml/hr, Infuse over: 20.7 hr, Route: IV, Dosing Weight 67.22 kg, Total Volume: 500mL, Start date: 10/31/19 2:25:00 CDT, Duration: 30 day, Stop date: 11/30/19 2:24:00 CDT, 1.78, m2, 0 Notes: Total Concentration = 50 unit/ ml Total volume = 500 mlSend Med Request 2 hours prior to next bag Start Date: 10/31/19 Stop Date: 10/31/19 Status: Discontinuedhydromorphone 0.5 mg, 0.25 mL, Route: IVP, Drug form: INJ, Q4H, Dosing Weight 79.091, kg, PRN Pain Score 7-10, Start date: 10/31/19 3:16:00 CDT, Duration: 5 day, Stop date: 11/05/19 3:15:00 CDT, 0 Notes: Same as Dilaudid Start Date: 10/31/19 Stop Date: 10/31/19 Status: DiscontinuedLidoderm 5% topical film (patch) 1 patch, Route: TOP, Daily, Drug form: FILM, Start date: 10/31/19 12:40:00 CDT, Duration: 30 day, Stop date: 11/30/19 9:00:00 CDT, Remove after 12 hours, 0 Notes: Apply only once for up to 12 hours in [id number] period (12 hours on and 12 hours off).(Same as: Lidoderm)"Remove old patch before application of new patch" Start Date: 10/31/19 Stop Date: 10/31/19 Status: DiscontinuedLidoderm 5% topical film (patch) 1 patch, TOP, Daily, Remove after 12 hours, # 30 patch, 0 Refill(s), Pharmacy: [facility]/pharmacy #[id number], 167.64, cm, 10/31/19 2:23:00 CDT, Height, 79.091, kg, 10/31/19 2:23:00 CDT, Weight Start Date: 10/31/19 Stop Date: 11/30/19 Status: OrderedLinzess 145 mcg oral capsule 145 microgram = 1 cap, PO, Daily, 30 minutes prior to the first meal of the day, # 30 cap, 0 Refill(s) Start Date: 10/31/19 Status: Orderedmelatonin 3 mg, 1 tab, Route: PO, Drug form: TAB, Bedtime, Dosing Weight 83.636, kg, PRN Insomnia, Start date:10/31/19 2:06:00 CDT, Duration: 30 day, Stop date: 11/30/19 2:05:00 CDT, 0 Notes: (Same as: Melatonin) Start Date: 10/31/19 Stop Date: 10/31/19 Status: DiscontinuedNorco 5/325 oral tablet 1 tab, Route: PO, Drug Form: TAB, Dosing Weight 79.091, kg, Q4H, PRN Pain Score 4-6, Start date: 10/31/19 3:17:00 CDT, Duration: 30 day, Stop date: 11/30/19 3:16:00 CDT, 0 Notes: (Same as: [place] 325/5) Do not exceed 4gm/day of acetaminophen. Start Date: 10/31/19 Stop Date: 10/31/19 Status: Discontinuedomeprazole 20 mg oral delayed release capsule 20 mg = 1 cap, PO, Daily, 0 Refill(s) Start Date: 10/31/19 Status: Orderedondansetron 4 mg, 2 mL, Route: IVP, Drug form: INJ, Q8H, Dosing Weight 83.636, kg, PRN Nausea & Vomiting, Start date: 10/31/19 2:06:00 CDT, Duration: 30 day, Stop date: 11/30/19 2:05:00 CDT, 0 Notes: (Same as: Evita) MEDICATION WASTE Product Size: 4 mgProduct Wasted: ___ mg Start Date: 10/31/19 Stop Date: 10/31/19 Status: Discontinuedpolyethylene glycol 3350 17 gm, Route: PO, Drug form: PWDR, Daily, Dosing Weight 83.636, kg, Start date: 10/31/19 9:00:00 CDT, Duration: 30 day, Stop date: 11/29/19 9:00:00 CDT, 0 Notes: Dissolve in 8 oz of water or juice.(Same as: Miralax) Start Date: 10/31/19 Stop Date: 10/31/19 Status: Discontinuedpregabalin 100 mg, 1 cap, Route: PO, Drug form: CAP, QID, Dosing Weight 83.636, kg, Start date: 10/31/19 9:00:00 CDT, Duration: 30 day, Stop date: 11/29/19 21:00:00 CDT, 0 Notes: (Same as: Lyrica) Start Date: 10/31/19 Stop Date: 10/31/19 Status: Discontinuedpregabalin 100 mg oral capsule 100 mg = 1 cap, PO, QID, # 90 cap, 0 Refill(s) Start Date: 10/31/19 Status: OrderedPrilosec 20 mg, Route: PO, Daily, Dosing Weight 83.636, kg, Start date: 10/31/19 9:00:00 CDT, Duration: 30 day, Stop date: 11/29/19 9:00:00 CDT Start Date: 10/31/19 Stop Date: 10/31/19 Status: DeletedProtonix 40 mg, 1 tab, Route: PO, Drug form: ECTAB, Daily, Start date: 10/31/19 9:00:00 CDT, Duration: 30 day, Stop date: 11/29/19 9:00:00 CDT, 0 Notes: Tablet should not be chewed or crushed.(Same as: Protonix) Start Date: 10/31/19 Stop Date: 10/31/19 Status: Discontinuedquinapril 20 mg, 1 tab, Route: PO, Drug form: TAB, Daily, Dosing Weight 83.636, kg, Start date: 10/31/19 9:00:00 CDT, Duration: 30 day, Stop date: 11/29/19 9:00:00 CDT Start Date: 10/31/19 Stop Date: 10/31/19 Status: Discontinuedremove patch 1 patch, Route: TOP, Bedtime, Drug form: ERFILM, Start date: 11/01/19 0:40:00 CDT, Duration: 30 day,Stop date: 11/30/19 0:40:00 CDT, 0 Notes: Remove patch 12 hours after application each day. Start Date: 11/01/19 Stop Date: 10/31/19 Status: Canceledsenna 17.2 mg, 2 tab, Route: PO, Drug Form: TAB, Dosing Weight 83.636, kg, Bedtime, Start date: 10/31/19 21:00:00 CDT, Duration: 30 day, Stop date: 11/29/19 21:00:00 CDT, 0 Notes: (Same as: Senokot) Start Date: 10/31/19 Stop Date: 10/31/19 Status: Canceledtizanidine 4 mg, 1 tab, Route: PO, Drug form: TAB, Q8H, Dosing Weight 83.636, kg, PRN Muscle Spasms, Start date: 10/31/19 2:17:00 CDT, Duration: 30 day, Stop date: 11/30/19 2:16:00 CDT, 0 Notes: (Same As: Zanaflex) Start Date: 10/31/19 Stop Date: 10/31/19 Status: Discontinuedtizanidine 4 mg oral tablet 4 mg = 1 tab, PO, Q8H, PRN for muscle spasms, # 90 tab, 0 Refill(s) Start Date: 10/31/19 Stop Date: 10/31/19 Status: Discontinuedtramadol 50 mg oral tablet 50 mg, 1 tab, Route: PO, Drug form: TAB, Q6H-02, Dosing Weight 79.091, kg, Start date: 10/31/19 14:00:00 CDT, Duration: 30 day, Stop date: 11/30/19 8:00:00 CDT, 0 Notes: Not to exceed 400mg/day. (Same As: Ultram) Start Date: 10/31/19 Stop Date: 10/31/19 Status: Discontinued Results Most recent to oldest 1 2 3 [Reference Range]: Neutrophils # [1.5-8.1 5.1 K/CMM K/CMM] (10/31/19 2:51 AM) Lymphocytes # [1.0-5.5 2.1 K/CMM K/CMM] (10/31/19 2:51 AM) Monocytes # [0.0-0.8 K/CMM] 0.7 K/CMM (10/31/19 2:51 AM) Eosinophils # [0.0-0.5 0.1 K/CMM K/CMM] (10/31/19 2:51 AM) eGFR 91 mL/min/1.73m2 1 *NA* (10/31/19 2:51 AM) ABO/Rh O POS *Unknown* (10/31/19 2:51 AM) A/G Ratio [0.7-1.6] 0.8 (10/31/19 2:51 AM) Antibody Scrn Negative (10/31/19 2:51 AM) Albumin Lvl [3.5-5.0 g/dL] 3.0 g/dL *LOW* (10/31/19 2:51 AM) Alk Phos [39-136 unit/L] 102 unit/L (10/31/19 2:51 AM) ALT [0-65 unit/L] 16 unit/L (10/31/19 2:51 AM) AGAP [10.0-20.0 mEq/L] 14.0 mEq/L (10/31/19 2:51 AM) AST [0-37 unit/L] 20 unit/L (10/31/19 2:51 AM) B/C Ratio [6-25] 19 (10/31/19 2:51 AM) Basophils [0.0-1.0 %] 0.5 % (10/31/19 2:51 AM) BUN [7-22 mg/dL] 13 mg/dL (10/31/19 2:51 AM) Calcium Lvl [8.5-10.5 mg/dL] 8.5 mg/dL (10/31/19 2:51 AM) Chloride Lvl [95-109 mEq/L] 108 mEq/L (10/31/19 2:51 AM) CO2 [24-32 mEq/L] 24 mEq/L (10/31/19 2:51 AM) Creatinine Lvl [0.50-1.40 0.70 mg/dL mg/dL] (10/31/19 2:51 AM) Eosinophils [0.0-4.0 %] 1.6 % (10/31/19 2:51 AM) Globulin [2.7-4.2 g/dL] 3.6 g/dL (10/31/19 2:51 AM) Glucose Lvl [70-99 mg/dL] 91 mg/dL (10/31/19 2:51 AM) Hct [36.0-48.0 %] 37.6 % (10/31/19 2:51 AM) Hgb [12.0-16.0 g/dL] 12.5 g/dL (10/31/19 2:51 AM) INR [0.85-1.17] 1.11 1.11 1.10 (10/31/19 3:36 PM) (10/31/19 9:58 AM) (10/31/19 2:5 1 AM) Potassium Lvl [3.5-5.1 4.0 mEq/L mEq/L] (10/31/19 2:51 AM) Lymphocytes [20.0-40.0 %] 26.0 % (10/31/19 2:51 AM) MCH [27.0-31.0 pg] 31.4 pg *HI* (10/31/19 2:51 AM) MCHC [32.0-36.0 g/dL] 33.1 g/dL (10/31/19 2:51 AM) MCV [80.0-98.0 fL] 94.8 fL (10/31/19 2:51 AM) Monocytes [2.0-12.0 %] 8.5 % (10/31/19 2:51 AM) MPV [7.4-10.4 fL] 8.8 fL (10/31/19 2:51 AM) Sodium Lvl [135-145 mEq/L] 142 mEq/L (10/31/19 2:51 AM) Platelet [133-450 K/CMM] 229 K/CMM (10/31/19 2:51 AM) Segs [45.0-75.0 %] 63.4 % (10/31/19 2:51 AM) Total Protein [6.4-8.4 g/dL] 6.6 g/dL (10/31/19 2:51 AM) PT [12.0-14.7 seconds] 14.3 seconds 14.4 seconds 14.2 seco nds (10/31/19 3:36 PM) (10/31/19 9:58 AM) (10/31/19 2:5 1 AM) PTT [22.9-35.8 seconds] 94.8 seconds 86.8 seconds 64.7 sec onds *HI* *HI* *HI* (10/31/19 3:36 PM) (10/31/19 9:58 AM) (10/31/19 2:5 1 AM) RBC [4.20-5.40 M/CMM] 3.97 M/CMM *LOW* (10/31/19 2:51 AM) RDW [11.5-14.5 %] 13.0 % (10/31/19 2:51 AM) Bili Total [0.2-1.3 mg/dL] 0.4 mg/dL (10/31/19 2:51 AM) WBC [3.7-10.4 K/CMM] 8.0 K/CMM (10/31/19 2:51 AM) 1Result Comment: The eGFR is calculated using the CKD-EPI formula. In most young, healthy individualsthe eGFR will be >90 mL/min/1.73m2. The eGFR declines with age. An eGFR of 60-89 may be normal insome populations, particularly the elderly, for whom the CKD-EPI formula has not been extensively validated. Use of the eGFR is not recommended in the following populations: Individuals with unstable creatinine concentrations, including patients and those with serious co-morbid conditions. Patients with extremes in muscle mass or diet. The data above are obtained from the National Kidney Disease Education Program (NKDEP) which additionally recommends that when the eGFR is used in patients with extremes of body mass index for purposesof drug dosing, the eGFR should be multiplied by the estimated BMI. Immunizations No data available for this section Procedures Procedure Date Related Diagnosis Body Site Status [email or web address] Completed 1gall bladder 2011 minicus in right knee 2011 bladder repair appendectomy 1992 total hysterectomy 1979 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 Social History Social History Type Response Alcohol Never Employment/School 1 Substance Abuse Use: None. Smoking Status Never smoker; Exposure to To bacco Smoke None; Cigarette Smoking Last 365 Days No; Reg Smoking Cessation Counseling No entered on: 10/31/19 1May reledase medical information to Tao Porter-Spouse Assessment and Plan Extracted from: Title: History and Physical Author: Smith Estevez DO Date: 10/31/19 The patient is a 63 year old woman with PMH of HTN, meralgia paresthetica s/p recent lumbosacral plexopathy on 08/2019, cervical spondylosis who was transferred from [facility] to findings of PE and pulmonary infarction [...] day mortality of 0-1.6%. 1.Pulmonary embolus and infarction(I 26.99) Ordered: Admit/Condition, 10/31/19 2:06:00 Alf DOE tatus: Out Patient with Observation Services, Telemetry Capable Location, Location: [address] [place] [address], Expected LOS: 2 Midnights, Ynug Busch DO, Admit Review /Approve Yes, Isolation: No Isolation/St andard Precautions, Acute... 2.DVT of lower limb, acute(I82.409) -provoked in setting of recent surgery a nd estrogen use -hold estrogen for now -c/w heparin gtt given pulmonary infarct ion, transition to NOAC if demonstrates further clinical stability -PESI score as above -patient counseled on risks/benefits of anticoagulation which she expressed understanding of, will need at least 3-6 months of AC as no prior history of VTE 3.Cervical spondylosis(M47.812) -CT neck at OSH without acute abnormalit ies 4.HTN - Hypertension(I10) -hold quinapril for now as normotensive 5.Meralgia paresthetica(G57.10) -resume home pain medications including 6.Acute pain(R52) -already on MMP, add IV dilaudid for eliza akthrough pain 7.Menopause syndrome(N95.1) -hold estrogen, patient counseled on inc reased risk of thrombosis heparin gtt Monitor overnight due to pulmonary inf arction and hemorrhage, patient is very low risk category so she can potentially be discharged later in the day versus next day pending clinical stabililty Addendum by Smith Estevez DO on 10/31/2019 06:18 CDT Patient has LUE midline. Not PICC.
--- OUTSIDE RECORDS SUMMARY | 2019-11-04 08:13 | XMS REPORT | Continuity of Care Document ---
:1955 Author Organization [facility] t Address [address] [place] [address] Care Team Providers Name Role Phone Nayla Alonzo MD Primary Care Physician Florentin Busch Attending Clinician Lauryn Fountain MD Attending Clinician Chel Florian MD Attending Clinician Danae TAYLOR Attending Clinician Wanda Suarez NP Attending Clinician Reza CHERY, S. Attending Clinician Chaparro RAVI Attending Clinician Unavailable Vahe HOYT Attending Clinician Unavailable Tulio Palacios Attending Clinician Kevin Stiles Attending Clinician [facility] Attending Clinician Unavailable Danitza Torres MD Attending Clinician Tima Melton Jr Attending Clinician Mike Hannah Admitting Clinician ANIVAL Admitting Clinician Unavailable Payers Payer Name Policy Policy Number Effective Expiration Source Type Date Date CIGNA - MGD CARECIGNA xxxxxxxxx [facility] HMO/POS/OPEN - Medical ACCESSxxxxxxxxxHMO/PO Reva ter S MEDICAREMEDICARE PART xxxxxxxxxxx 2018 Francisco J alex Brown AND 00:00:00 Yarsani Bxxxxxxxxxxx2018- [place] COMMERCIAL MISCMISC xxxxxxxxx 2009 [place] COMMERCIALxxxxxxxxx1/ 00:00:00 Met anjali 05/2009-PresentCommerc ial Problems Condition Condition Condition Status Onset Resolution Last Treating Co mments Source Name Details Category Date Date Treatment Clinician Date PE, Diagnosis Active 2019-11-01 Mem oria PULMONARY 10-29 14:09:00 l DVT LEFT PE, 00:00: [place] LEG PULMONARY 00 DVT LEFT LEG Active 10/30/2019 [facility] Follow-up Follow-up Disease Active Lacho romero examinatio examinatio 6-18 Me thodi n n 00:00: st following following 00 surgery surgery S/P lumbar S/P lumbar Disease Active H dany laminectom laminectom 5-19 Me thodi y y 00:00: st 00 DDD DDD Disease Active [place] (degenerat (degenerat 4-13 Me thodi jhon disc jhon disc 00:00: st disease), disease), 00 lumbar lumbar Spinal Spinal Disease Active [place] stenosis stenosis 4-13 Method i of lumbar of lumbar 00:00: st region region 00 with with neurogenic neurogenic claudicati claudicati on on Thoracic Thoracic Disease Active [place] on radiculopa radiculopa 4-13 Me thodi thy thy 00:00: st 00 Claudicati Claudicati Disease Active H dany on on 3-03 Methodi 00:00: st 00 Bilateral Bilateral Disease Active Lacho romero carotid carotid 2-04 Methodi artery artery 00:00: st stenosis stenosis 00 PAD PAD Disease Active [place] (periphera (periphera 2-04 Me thodi l artery l artery 00:00: st disease) disease) 00 Chronic Chronic Disease Active [place] back pain back pain 6-05 Meth nik 00:00: st 00 Generalize Generalize Disease Active H dany d d 4-30 Methodi abdominal abdominal 00:00: st pain pain 00 Right Right Disease Active [place] upper upper 07-26 Methodi quadrant quadrant 00:00: st pain pain 00 Slow Slow Disease Active [place] transit transit 07-26 Methodi constipati constipati 00:00: st on on 00 History of History of Disease Active H dany cholecyste cholecyste 07-26 Me thodi ctomy ctomy 00:00: st 00 Essential Essential Disease Active Lacho ston hypertensi hypertensi 07-26 Me thodi on on 00:00: st 00 Splenic Splenic Disease Active [place] artery artery 07-26 Methodi aneurysm aneurysm 00:00: st 00 Anxiety Anxiety Disease Active [place] 07-26 Methodi 00:00: st 00 ABDOMINAL Diagnosis Active 2017-05-06 Memoria PAIN/LOSS 05-06 18:11:00 l OF 00:00: Agus APPETITE ABDOMINAL 00 PAIN/LOSS OF APPETITE Active 05/06/2017 [facility] SURGERY Diagnosis Active 2013-01-20 Me moria THIS 01-19 08:28:00 l MORNING, SURGERY 00:00: Maria E nn PROBLEMS THIS 00 BREATHING MORNING, PROBLEMS BREATHING Active 01/19/2013 [facility] POST Diagnosis Active 2013-03-05 Mem oria FOLLOW UP 01-19 15:20:00 l POST 00:00: Agus FOLLOW UP 00 Active 01/19/2013 [facility] BDDC-WEIGH Diagnosis Active 2013-01-19 Memoria T LOSS 01-17 08:37:00 l 00:00: Agus BDDC-WEIGH 00 T LOSS Active 01/17/2013 [facility] 783.21 - Diagnosis Active 2013-12-25 M emoria ABNORMAL 01-16 02:47:00 l LOSS O 783.21 - 00:01: Dwight n 576.0 - ABNORMAL 00 POSTCHO LOSS O 576.0 - POSTCHO Active 01/16/2013 MARIA VICTORIA Sauer ABD PAIN Diagnosis Active 2013-01-16 M emoria 01-11 13:45:00 l ABD PAIN 00:00: Dwight n 00 Active 01/11/2013 [facility] Acid Problem Resolve 2013-01-25 Abdiel leigh ann reflux d 21:01:15 l Acid [place] reflux Resolved Problem 01/25/2013 [facility] HTN - Problem Resolve 2013-01-25 Abdiel leigh ann Hypertensi d 21:01:15 l on HTN - [place] Hypertensi on Resolved Problem 01/25/2013 [facility] Gastroesop Problem Resolve 2019-11-02 Memoria hageal d 22:38:04 l reflux Agus disease Gastroesop (disorder) hageal reflux disease (disorder) Resolved Problem 11/02/2019 [facility] Lumbosacra Problem Resolve 2019-11-02 Memoria l plexus d 22:38:04 l neuropathy Dwight n (disorder) Lumbosacra l plexus neuropathy (disorder) Resolved Problem 11/02/2019 [facility] Cervical Problem Active 2019-11-02 Mem oria spondylosi 22:38:04 l s Cervical Dwight n (disorder) spondylosi s (disorder) Active Problem 11/02/2019 [facility] Hypertensi Problem Active 2019-11-02 M emoria ve 22:38:04 l disorder, Agus systemic Hypertensi arterial ve (disorder) disorder, systemic arterial (disorder) Active Problem 11/02/2019 [facility] Menopausal Problem Active 2019-11-02 M emoria syndrome 22:38:04 l (disorder) Dwight n Menopausal syndrome (disorder) Active Problem 11/02/2019 [facility] Meralgia Problem Active 2019-11-02 Mem oria parestheti 22:38:04 l ca Meralgia Dwight n (disorder) parestheti ca (disorder) Active Problem 11/02/2019 [facility] Pituitary Problem Active 2019-11-02 Me moria adenoma 22:38:04 l (disorder) Dwight n Pituitary adenoma (disorder) Active Problem 11/02/2019 Data migrated from [facility] on 12/25/14. [facility] Ulcer of Problem Active 2019-11-02 Mem oria lower 22:38:04 l extremity Ulcer of Her melendez (disorder) lower extremity (disorder) Active Problem 11/02/2019 [facility] ABDMNAL Diagnosis Active 2013-01-20 Me moria PAIN 08:28:00 l UNSPCF ABDMNAL [place] SITE PAIN UNSPCF SITE Active [facility] Unspecifie Problem 2017-2017-05-09 2017-05-09 Memoria d 1-04 05:06:50 05:06:50 l abdominal 06:00: Agus pain Unspecifie 00 d abdominal pain 05/06/2017 05/09/2017 [facility] Allergies, Adverse Reactions, Alerts Allergy Allergy Status Severity Reaction(s) Onset Inactive Treating Comm ents Source Name Type Date Date Clinician Morphine Propensi Active Other (See Makes her [place] ty to Comments) 01-15 loud and Metho di adverse 00:00: crazy st reaction 00 s to drug Diazepam Propensi Active Other (See Makes her [place] ty to Comments) 01-15 crazy and Meth nik adverse 00:00: wild st reaction 00 s to drug Midazola Propensi Active Other (See Makes her [facility] ty to Comments) 01-15 crazy and Meth nik adverse 00:00: loud st reaction 00 s to drug midazola midazola Active 2011-05 Memori a m<sup>2< m<sup>2< 0-23 l /sup> /sup> 05:00: morphine morphine Active 2011-05 Memori a <sup>3</ <sup>3</ 0-23 l sup> sup> 05:00: 00 midazola DA Active SV 2009-05 [facility] 05-13 00:00: [address] diazepam DA Active SV 2009-05 [facility] 05-13 00:00: [address] morphine DA Active MO 2009-05 [facility] 05-13 00:00: [address] Valium Valium Active Memoria l [place] morphine morphine Active Memori a l Agus cortison cortison Active Memori a e e l Agus Family History Family Member Diagnosis Comments Start Date Stop Date Source Natural father Cancer [place] [facility] Natural father Liver cancer [place] Yarsani Natural father Liver disease [place] Yarsani Natural father Lung cancer [facility] ethodist Maternal grandfather Heart disease H dany Yarsani Maternal grandfather Hypertension [place] Yarsani Maternal grandmother Heart disease H dany Yarsani Maternal grandmother Hypertension Ho a[place] Yarsani Natural mother Cancer [place] [facility] Natural mother Colon cancer [place] Yarsani Natural mother Ovarian cancer [place] Yarsani Natural mother Stomach cancer [place] Yarsani Social History Social Habit Start Date Stop Date Quantity Comments Source Sex Assigned At [place] M ethodist Exposure to Not sure [place] Metho dist SARS-CoV-2 (event) Alcohol intake 2019-09-20 2019-09-20 Current [facility] thodist 00:00:00 00:00:00 non-drinker of alcohol (finding) Social History 2017-05-07 2017-05-07 [facility] ermann 04:13:00 04:13:00 Smoking Status Start Date Stop Date Source Never smoker [place] Methodis t Medications Ordered Filled Start Stop Current Ordering Indication Dosage Frequency Signature Comments Components Source Medication Medication Date Date Medication? Clinician (SIG) Name Name remove No Notes: Memoria patch 10-31 Remove l 05:40: patch 12 [place] 00 hours after applicatio n each day. sennosides, No Notes: Abdiel leigh ann MCC 10-31 (Same as: l 02:00: Senokot) [place] 00 tramadol No Notes: Not Mem oria hydrochlori 6-30 to exceed l de 50 MG 19:00: 400mg/day. Her melendez Oral Tablet 00 (Same As: Ultram) Lidocaine Yes 1 patch, Abdiel leigh ann Hydrochlori 6-30 TOP, l de 0.05 17:45: Daily, Agus MG/MG 00 Remove Transdermal after 12 Patch hours, # [Lidoderm] 30 patch, 0 Refill(s), Pharmacy: [facility] #[id number], 167.64, cm, 10/31/19 2:23:00 CDT, Height, 79.091, kg, 10/31/19 2:23:00 CDT, Weight {74 Yes 5 mg = 1 Memoria (apixaban 5 6-30 tab, PO, l MG Oral 17:45: BID, # 60 Maria E nn Tablet 00 tab, 0 [Eliquis]) Refill(s), } Pack Pharmacy: [Eliquis [facility] #[id number], Starter 167.64, Pack] cm, 10/31/19 2:23:00 CDT, Height, 79.091, kg, 10/31/19 2:23:00 CDT, Weight Lidocaine 2020-0 No Notes: Memori a Hydrochlori 6-30 Apply only l de 0.05 17:40: once for Dwight n MG/MG 00 up to 12 Transdermal hours in a Patch 24-hour [Lidoderm] period (12 hours on and 12 hours off). (Same as: Lidoderm) "Remove old patch before applicatio n of new patch" clorazepate 2020-0 Yes 7.5 mg = 1 Memoria 7.5 mg oral 6-30 tab, PO, l tablet 16:11: Daily, 0 [place] 00 Refill(s) omeprazole 2020-0 Yes 20 mg = 1 Me moria 20 mg oral 6-30 cap, PO, l delayed 16:11: Daily, 0 Dwight n release 00 Refill(s) capsule Acetaminoph 2019-0 Yes 1 tab, PO, Memoria en 325 MG / 6-30 Q6H, PRN l Oxycodone 16:11: for pain, Her melendez Hydrochlori 00 0 de 10 MG Refill(s) Oral Tablet POLYETHYLEN 2019-0 No Notes: Abdiel leigh ann E GLYCOL 6-30 Dissolve l 3350 14:00: in 8 oz of water or juice. (Same as: Miralax) Aspirin 81 2019-0 No Notes: Do Me moria MG Enteric 6-30 not crush l Coated 14:00: or chew. [place] Tablet 00 (Same As: Ecotrin) Prilosec 2019-0 No 20 mg, Memoria 6-30 Route: PO, l 14:00: Daily, Dosing Weight 83.636, kg, Start date: 10/31/19 9:00:00 CDT, Duration: 30 day, Stop date: 11/29/19 9:00:00 CDT pregabalin 2019-0 No Notes: Memor ia 6-30 (Same as: l 14:00: Lyrica) quinapril 2019-0 No 20 mg, 1 Abdiel leigh ann 6-30 tab, l 14:00: Route: PO, Agus 00 Drug form: TAB, Daily, Dosing Weight 83.636, kg, Start date: 10/31/19 9:00:00 CDT, Duration: 30 day, Stop date: 11/29/19 9:00:00 CDT Protonix No Notes: Memoria 6-30 Tablet l 14:00: should not [place] 00 be chewed or crushed. (Same as: Protonix) Acetaminoph No Notes: Abdiel leigh ann en 325 MG / 6-30 (Same as: l Hydrocodone 08:17: Paton Maria E nn Bitartrate 00 325/5) Do 5 MG Oral not exceed Tablet 4gm/day of [Paton acetaminop 5/325] hen. Hydromorpho No Notes: Abdiel leigh ann ne 6-30 Same as l 08:16: Dilaudid Agus 00 Heparin 80 No Route: Memor ia unit/kg 6-30 IVP, PRN, l Bolus 07:25: 5,400 [place] (Heparin 00 unit, 5.4 Dosing mL, Drug Weight) form: INJ, PRN, Heparin Protocol, Start date: 10/31/19 2:25:00 CDT Stop date: 11/30/19 2:24:00 CDT, 30 day, 0 Heparin 40 No Route: Memor ia unit/kg 6-30 IVP, PRN, l Bolus 07:25: 2,700 Agus (Heparin 00 unit, 2.7 Dosing mL, Drug Weight) form: INJ, PRN, Heparin Protocol, Start date: 10/31/19 2:25:00 CDT Stop date: 11/30/19 2:24:00 CDT, 30 day, 0 heparin No Notes: Memoria additive 6-30 Total l 25,000 unit 07:25: Concentrat Agus [18 00 ion = 50 unit/kg/hr] unit/ ml + Premix Total Diluent volume = Sodium 500 ml Chloride Send Med 0.45% 500 Request 2 mL hours prior to next bag Acetaminoph No Notes: Do M emoria en 325 MG / 6-30 not exceed l Hydrocodone 07:17: 4gm/day of [place] Bitartrate 00 acetaminop 10 MG Oral hen. Tablet (Same as: Paton 325/10) clorazepate No Notes: Abdiel leigh ann 6-30 (Same As: l 07:17: Tranxene-T Agus 00 ) tizanidine 2020-0 No Notes: Memor ia 6-30 (Same As: l 07:17: Zanaflex) pregabalin 2020-0 Yes 100 mg = 1 M emoria 100 mg oral 6-30 cap, PO, l capsule 07:11: QID, # 90 Maria E nn 00 cap, 0 Refill(s) tizanidine 2020-0 No 4 mg = 1 Mem oria 4 mg oral 6-30 tab, PO, l tablet 07:11: Q8H, PRN for muscle spasms, # 90 tab, 0 Refill(s) clorazepate 2020-0 No 7.5 mg = 1 Memoria 7.5 mg oral 6-30 tab, PO, l tablet 07:11: TID, PRN Anxiety, 0 Refill(s) linaclotide 2019-0 Yes 145 Memori a 0.145 MG 6-30 microgram l Oral 07:11: = 1 cap, [place] Capsule 00 PO, Daily, [Linzess] 30 minutes prior to the first meal of the day, # 30 cap, 0 Refill(s) Dextrose 2020-0 No 12.5 gm, Memor ia 50% Syringe 6-30 25 mL, l (D50W) 07:06: Route: IVP, Drug Form: INJ, Dosing Weight 83.636, kg, PRN, PRN Blood Glucose Results, Start date: 10/31/19 2:06:00 CDT, Duration: 30 day, Stop date: 11/30/19 2:05:00 CDT, 0 Glucagon 2019-0 No 1 mg, Memoria 6-30 Route: IM, l 07:06: Drug form: PDR/INJ, PRN, Dosing Weight 83.636, kg, PRN Blood Glucose Results, Start date: 10/31/19 2:06:00 CDT, Duration: 30 day, Stop date: 11/30/19 2:05:00 CDT, 0 Ondansetron 2019-0 No Notes: Abdiel leigh ann 6-30 (Same as: l 07:06: Zofran) MEDICATION WASTE Product Size: 4 mg Product Wasted: ___ mg Melatonin 2019-0 No Notes: Memori a 6-30 (Same as: l 07:06: Melatonin) Agus 00 doxycycline 2020-0 2020- No 100mg QD Take 100 Yoo (VIBRAMYCIN 5-22 05-22 mg by Method i ) 100 MG 11:10: 00:[address] capsule 38 :00 daily. pregabalin 2020-0 Yes 100mg [id number] Take 100 Yoo (LYRICA) 5-22 [id number] mg by Meth nik 100 MG 11:10: 3D mouth 3 st capsule 32 (three) times a day. quinapril 2020-0 Yes 20mg QD Take 20 mg [place] (ACCUPRIL) 5-22 by mouth Metho di 20 MG 11:10: nightly. st tablet 32 HYDROcodone 2020-0 Yes acute pain 1{tbl} Q.[id number] Take 1 Yoo -acetaminop 5-22 [id number] tablet by Methodi hen (NORCO) 11:10: 3D mouth 3 st [...] M emoria Conjugated 8-22 tab, PO, l (MCC) 0.3 13:52: Daily, # Herm emmett MG Oral 00 30 tab, 0 Tablet Refill(s) [Premarin] Acetaminoph Yes 1 tab, PO, Memoria en 325 MG / 8-22 Q6H, 0 l Hydrocodone 13:52: Refill(s) H ermann Bitartrate 00 10 MG Oral Tablet Belbuca Yes BUC, Q12H, Abdiel leigh ann 6-19 0 l 16:41: Refill(s) [place] 00 Buprenorphi Yes 150 Memori a ne 0.15 MG 6-19 microgram l Buccal Film 16:41: = 1 Her nora patricia [Belbuca] 00 BUC, BID, 0 Refill(s) buprenorphi 2019- No 150 [place] ne 10-19 04-01 microgram Methodi (BELBUCA) 00:00: 00:00 = 1 ea, st 150 mcg 00 :00 BUC, BID, film buccal 0 film Refill(s) amitriptyli Yes 20 mg = 2 M cherrie ne 10 mg 4-18 tab, PO, l oral tablet 15:16: Bedtime, # Agus 24 180 tab, 3 Refill(s), Pharmacy: [facility] #[id number] amitriptyli 2019- No 20 mg = 2 [place] ne (ELAVIL) 4-18 05-11 tab, PO, Met hodi 10 MG 00:00: 00:00 Bedtime, # st tablet 00 :00 180 tab, 3 Refill(s), Pharmacy: [facility] #[id number] CREON 2020- No TAKE ONE [place] 12,000-38,0 08-02 02-04 CAPSULE BY Fabian domingo 60 00:00: 00:[address] unit 00 :00 TIMES A capsule, DAY WITH A ayed MEAL release(DR/ EC) capsule Acetaminoph Yes 1 tab, PO, Memoria en 300 MG / 1-05 TID, PRN l Codeine 03:39: Pain, X 4 Maria E nn Phosphate 00 day, # 12 30 MG Oral tab, 0 Tablet Refill(s) [Tylenol with Codeine #3] acetaminoph No Notes: Do M emoria en-codeine -05 not exceed l #3 03:38: 4gm/day of acetaminop hen. 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, Stop date: 05/06/17 12:46:00 LOSS PREVENTION SUPERVISOR Saline No Notes: Memoria Flush 0.9% -04 (Same as: l 18:46: BD [place] 00 Posiflush) potassium 2016-05- No 10meq QD [...] needed for pain, Substituti on Allowed, TAB Paton No Weston 1 tab, Memoria 10/325 oral 01-23 Sajja Route: PO, l tablet 02:22: Drug Form: Maria E nn 00 TAB, Dosing Weight 65, kg, Q6H, PRN Pain, Start date: 01/22/13 21:22:00, Duration: 30 day, Stop date: 02/21/13 21:21:00 Omnipaque No Weston 100 mL, Mem oria 350mg/ml [...] Duration: 30 day, Stop date: 02/21/13 12:16:00 Paton No Weston 1 tab, Memoria 10/325 oral 01-22jja Route: PO, l tablet 07:14: Drug Form: Maria E nn 00 TAB, Dosing Weight 65, kg, Q4H, PRN Pain, NOW, Start date: 01/22/13 2:14:00, Duration: 30 day, Stop date: 02/21/13 2:13:00 Remeron No Weston 15 mg, 1 Abdiel leigh ann 01-22 Sajja tab, l 02:00: Route: PO, [place] Drug form: TAB, Bedtime, Dosing Weight 65, kg, Start date: 01/21/13 21:00:00, Duration: 30 day, Stop date: 02/19/13 21:00:00 hyoscyamine 2012- No Weston 0.125 mg, Memoria 01-21 Sajja [...] 30 day, Stop date: 02/20/13 9:38:00 MiraLax No Weston 17 gm, 1 Abdiel leigh ann 01-21 Sajja pkt, l 14:38: Route: PO, [place] 00 Drug form: PWDR, Daily, Dosing Weight 65, kg, PRN Constipati on, Start date: 01/21/13 9:38:00, Duration: 30 day, Stop date: 02/20/13 9:37:00 tramadol 50 2012- No Weston 50 mg, 1 Memoria mg oral 01-21 Sajja tab, l tablet 14:38: Route: PO, Maria E Drug form: TAB, Q8H, Dosing Weight 65, kg, PRN as needed for pain, Start date: 01/21/13 9:38:00, Duration: 30 day, Stop date: 02/20/13 9:37:00 Protonix 2012- No Weston 40 mg, 1 Mem oria 01-21 Sajja tab, l 14:00: Route: PO, [place] 00 Drug form: ECTAB, Daily, Dosing Weight 65, kg, Start date: 01/21/13 9:00:00, Duration: 30 day, Stop date: 02/19/13 9:00:00 Dilaudid 2012- No Elyssa 0.5 mg, Abdiel leigh ann 01-21 Luis 0.25 mL, l 03:21: Route: IV, Drug form: INJ, ONCE, Dosing Weight 65, kg, PRN as needed for pain, Start date: 01/20/13 22:21:00 Zosyn 2012-0 No Weston 3.375 gm, Memor ia 01-20j Route: l 16:00: IVPB, Drug form: PDR/INJ, ABXQ8H, Start date: 01/20/13 11:00:00, Stop date: 02/19/13 2:00:00 enoxaparin 2012- No Elyssa 40 mg, 0.4 Memoria - Luis mL, Route: l 11:00: SUB-Q, Drug form: INJ, [id number], Dosing Weight 65, kg, Start date: 01/20/13 [...] Sajja 0.25 mL, l 10:23: Route: IV, Agus 00 Drug form: INJ, Q4H, Dosing Weight 65, kg, PRN as needed for pain, Start date: 01/20/13 5:23:00, Duration: 30 day, Stop date: 02/19/13 5:22:00 docusate Yes Substituti Mem oria 20 on Allowed l 10:21: Agus 15 ondansetron No Elyssa 4 mg, 2 M emoria 20 Luis mL, Route: l 10:15: IVP, Drug form: INJ, Q8H, Dosing Weight 65, kg, PRN Nausea & Vomiting, Start date: 01/20/13 5:15:00, Duration: 30 day, Stop date: 02/19/13 5:14:00 NS 1,000 mL No Peter 1,000 mL, Memoria 01-20 Hardeep Rate: 75 l 09:41: Catherine ml/hr, [place] 00 Infuse over: 13.3 hr, Route: IV, Dosing Weight 65 kg, Total Volume: 1,000, Start date: 01/20/13 4:41:00, Duration: 30 day, Stop date: 02/19/13 4:40:00 Zosyn No Weston 3.375 gm, Memor ia 01-20 Sajja Route: l 08:51: IVPB, Drug [place] 00 form: PDR/INJ, ONCE, Dosing Weight 65, kg, Priority: STAT, Start date: 01/20/13 3:51:00, Stop date: 01/20/13 3:51:00 fentanyl No Willian 50 Memoria 9-20 Hardeep microgram, l 08:43: Catherine Route: Agus 00 IVP, ONCE, Dosing Weight 65, kg, Priority: STAT, Start date: 01/20/13 3:43:00, Stop date: 01/20/13 3:43:00 Zofran No Willian 4 mg, 2 Memoria 20 Hardeep mL, Route: l 06:32: Catherine IVP, Drug Maria E nn form: INJ, ONCE, Dosing Weight 65, kg, Priority: STAT, Start date: 01/20/13 1:32:00, Stop date: 01/20/13 1:32:00 fentanyl No Willian 50 Memoria -20 Hardeep microgram, l 04:31: Catherine Route: [place] 00 IVP, ONCE, Dosing Weight 65, kg, Priority: STAT, Start date: 01/19/13 23:31:00, Stop date: 01/19/13 23:31:00 Omnipaque No Willian 78 mL, Memor ia 350mg/ml 01-20 Hardeep Route: l 03:40: Catherine IVP, Drug Maria E nn Form: SOLN, Dosing Weight 65, kg, ONCALL, STAT, Start date: 01/19/13 22:40:00, Duration: 1 doses or times, Weight = 60 - 74kg -- "To be infused by Radiology Staff ONLY"Weigh t = 60 - 74kg -- "To be infused by Radiology Staff ONLY" NS (Bolus) Cinthya Dorsey 1,000 mL, Fabian emoria IV 1000 mL 01-20 Hardeep Rate: l 03:38: Florin 1,000 S[place]ry 00 ml/hr, Infuse over: 1 hr, Route: IV, Dosing Weight 65 kg, Total Volume: 1,000, Priority: STAT, Start date: 01/19/13 22:38:00, Duration: 1 doses or times, Stop date: 01/19/13 23:37:00, Bolus DoseBolus Dose fentanyl No Willian 50 Memoria -20 Hardeep microgram, l 03:13: Catherine 1 mL, [place] 00 Route: IVP, Drug form: INJ, ONCE, [...] Name Observation Time Observation Value Comments Source Temperature Oral (F) 2019-10-31 20:24:00 98.1 F [facility] [place] Heart Rate 2019-10-31 20:24:00 [facility] Agus Respitory Rate 2019-10-31 20:24:00 Memori al [place] Systolic (mm Hg) 2019-10-31 20:24:00 Abdiel rial [place] Diastolic (mm Hg) 2019-10-31 20:24:00 Mem orial [place] Temperature Oral (F) 2019-10-31 16:12:00 98.2 F [facility] Agus Heart Rate 2019-10-31 16:12:00 [facility] Agus Respitory Rate 2019-10-31 16:12:00 Memori al Agus Systolic (mm Hg) 2019-10-31 16:12:00 Abdiel rial [place] Diastolic (mm Hg) 2019-10-31 16:12:00 Mem orial Agus Temperature Oral (F) 2019-10-31 12:25:00 97.9 F [facility] [place] Heart Rate 2019-10-31 12:25:00 [facility] Agus Respitory Rate 2019-10-31 12:25:00 Memori al Agus Systolic (mm Hg) 2019-10-31 12:25:00 Abdiel rial [place] Diastolic (mm Hg) 2019-10-31 12:25:00 Mem orial Agus Height 2019-10-31 07:23:00 167.64 cm [facility] Agus Weight 2019-10-31 07:23:00 [facility] [place] BMI Calculated 2019-10-31 07:23:00 Memori al Agus Systolic blood 2019-09-22 07:44:14 153 mm[Hg] [place] Yarsani pressure Diastolic blood 2019-09-22 07:44:14 70 mm[Hg] [place] Yarsani pressure Heart rate 2019-09-22 07:44:14 65 /min [place] Yarsani Body temperature 2019-09-22 07:44:14 36.78 Radha [place] Yarsani Respiratory rate 2019-09-22 07:44:14 18 /min [place] Yarsani Oxygen saturation in 2019-09-22 07:44:14 97 /min [place] Yarsani Arterial blood by Pulse oximetry Body height 2019-09-19 10:00:00 167.6 cm [place] Yarsani Body weight 2019-09-19 10:00:00 80.241 kg Yoo Yarsani BMI 2019-09-19 10:00:00 28.55 kg/m2 Yoo Yarsani Systolic (mm Hg) 2019-05-05 16:51:00 Abdiel rial [place] Diastolic (mm Hg) 2019-05-05 16:51:00 Mem orial [place] Heart Rate 2019-05-05 16:51:00 [facility] [place] Respitory Rate 2019-05-05 16:51:00 Memori al Agus Height 2019-05-05 16:51:00 165.1 cm [facility] Agus Weight 2019-05-05 16:51:00 [facility] Agus BMI Calculated 2019-05-05 16:51:00 Memori al [place] Systolic (mm Hg) 2019-03-22 17:27:00 Abdiel rial [place] Diastolic (mm Hg) 2019-03-22 17:27:00 Mem orial [place] Heart Rate 2019-03-22 17:27:00 [facility] [place] Respitory Rate 2019-03-22 17:27:00 Memori al [place] Height 2019-03-22 17:27:00 165.1 cm [facility] [place] Weight 2019-03-22 17:27:00 [facility] [place] BMI Calculated 2019-03-22 17:27:00 Memori al [place] Systolic (mm Hg) 2019-03-15 17:56:00 Abdiel rial [place] Diastolic (mm Hg) 2019-03-15 17:56:00 Mem orial [place] Heart Rate 2019-03-15 17:56:00 [facility] Agus Respitory Rate 2019-03-15 17:56:00 Memori al Agus Height 2019-03-15 17:56:00 165.1 cm [facility] Agus Weight 2019-03-15 17:56:00 [facility] [place] BMI Calculated 2019-03-15 17:56:00 Memori al Agus Systolic (mm Hg) 2018-12-21 16:44:00 Abdiel rial Sper[facility] Diastolic (mm Hg) 2018-12-21 16:44:00 [facility] Heart Rate 2018-12-21 16:44:00 [facility] Respitory Rate 2018-12-21 16:44:00 [facility] Height 2018-12-21 16:44:00 165.1 cm [facility] Weight 2018-12-21 16:44:00 [facility] BMI Calculated 2018-12-21 16:44:00 [facility] BMI Calculated 2018-10-19 16:19:00 [facility] Height 2018-10-19 16:19:00 167.64 cm [facility] Weight 2018-10-19 16:19:00 [facility] Systolic (mm Hg) 2018-10-19 16:19:00 Abdiel rial Sperry Diastolic (mm Hg) 2018-10-19 16:19:00 Mem o[facility] Respitory Rate 2018-10-19 16:19:00 [facility] Heart Rate 2018-10-19 16:19:00 [facility] BMI Calculated 2018-09-08 19:24:00 [facility] Weight 2018-09-08 19:24:00 [facility] Height 2018-09-08 19:24:00 167.64 cm [facility] Respitory Rate 2018-09-08 19:24:00 [facility] Heart Rate 2018-09-08 19:24:00 [facility] Systolic (mm Hg) 2018-09-08 19:24:00 Abdiel rial Sper[place] Diastolic (mm Hg) 2018-09-08 19:24:00 [facility] Heart Rate 2017-05-07 04:11:00 [facility] Systolic (mm Hg) 2017-05-07 04:11:00 Abdiel rial Agus Diastolic (mm Hg) 2017-05-07 04:11:00 [facility] Respitory Rate 2017-05-07 04:11:00 [facility] Temperature Oral (F) 2017-05-07 04:11:00 98.0 F [facility] Temperature Oral (F) 2017-05-07 02:30:00 97.7 F [facility] Systolic (mm Hg) 2017-05-07 02:30:00 Abdiel rial [place] Diastolic (mm Hg) 2017-05-07 02:30:00 [facility] Heart Rate 2017-05-07 02:30:00 [facility] Respitory Rate 2017-05-07 02:30:00 [facility] Weight 2017-05-06 18:43:00 [facility] Temperature Oral (F) 2017-05-06 18:43:00 98.2 F [facility] Heart Rate 2017-05-06 18:43:00 [facility] Respitory Rate 2017-05-06 18:43:00 [facility] Systolic (mm Hg) 2017-05-06 18:43:00 Abdiel rial Sper[place] Diastolic (mm Hg) 2017-05-06 18:43:00 [facility] Heart Rate 2013-01-23 12:37:00 [facility] Temperature Oral (F) 2013-01-23 12:37:00 98.1 F [facility] Respitory Rate 2013-01-23 12:37:00 [facility] Systolic (mm Hg) 2013-01-23 12:37:00 Abdiel rial Agus Diastolic (mm Hg) 2013-01-23 12:37:00 [facility] Diastolic (mm Hg) 2013-01-23 10:13:00 [facility] Systolic (mm Hg) 2013-01-23 10:13:00 Abdiel rial [place] Heart Rate 2013-01-23 10:13:00 [facility] Respitory Rate 2013-01-23 10:13:00 Memori al [place] Temperature Oral (F) 2013-01-23 10:13:00 98.4 F [facility] Heart Rate 2013-01-23 00:10:00 [facility] Systolic (mm Hg) 2013-01-23 00:10:00 Abdiel rial S[facility] Respitory Rate 2013-01-23 00:10:00 Memori al [facility] Diastolic (mm Hg) 2013-01-23 00:10:00 [facility] Temperature Oral (F) 2013-01-23 00:10:00 98.5 F [facility] Height 2013-01-20 14:20:00 158.4 cm [facility] Height 2013-01-20 01:53:00 160.02 cm [facility] Weight 2013-01-20 01:53:00 [facility] Weight 2013-01-16 19:03:00 [facility] Diastolic (mm Hg) 2013-01-16 19:03:00 [facility] Systolic (mm Hg) 2013-01-16 19:03:00 Abdiel rial Agus Temperature Oral (F) 2013-01-16 19:03:00 98.5 F [facility] Respitory Rate 2013-01-16 19:03:00 [facility] Heart Rate 2013-01-16 19:03:00 [facility] Procedures Procedure Date / Time Performing Clinician Source Performed URINE CULTURE 2019-09-20 19:30:[address] CERVICAL SPINE WO 2019-09-20 18:46:[address] HEAD WO CONTRAST 2019-09-20 18:45:[address] LUMBAR SPINE WO 2019-09-20 18:43:36 Jose White ethodist CONTRAST AMMONIA LEVEL 2019-09-20 17:36:00 Moni Holm Meth odist HC COMPLETE BLD COUNT 2019-09-20 17:36:00 Moni Holm W/AUTO DIFF URINE DRUGS OF ABUSE 2019-09-20 17:30:00 Moni Holm SCREEN URINALYSIS SCREEN AND 2019-09-20 17:30:00 Lucy Gonzalez MICROSCOPY, WITH REFLEX TO CULTURE PROTHROMBIN TIME WITH INR 2019-09-20 17:20:00 Benita Shepherd Yarsani PARTIAL THROMBOPLASTIN 2019-09-20 17:20:00 Benita Shepherd Yarsani TIME (PTT) BASIC METABOLIC PANEL 2019-09-20 17:20:00 Benita Shepherd brenton Campbell IONIZED CALCIUM 2019-09-20 17:20:00 Benita Shepherd Me thodist MAGNESIUM LEVEL 2019-09-20 17:20:00 Benita Shepherd Me thodist PHOSPHORUS LEVEL 2019-09-20 17:20:00 Benita Shepherd M ethodist TROPONIN 2019-09-20 17:20:00 Benita Shepherd Me [facility]odist ESTIMATED GFR 2019-09-20 17:20:00 Benita Shepherd Me thodist ECG 12-LEAD 2019-09-20 16:27:56 Benita Shepherd Me thodist POC GLUCOSE 2019-09-20 16:25:00 Raffi Florian Meth odist ANESTHESIA INTUBATION 2019-09-19 15:59:28 Douglas Gilmore uston Yarsani ID AN ELECTIVE 2019-09-19 15:51:07 Douglas Gilmore ENDOTRACHEAL [...] CT POST MYELOGRAM 2019-09-06 12:33:08 Raffi Florian Sc thodist THORACIC CT POST MYELOGRAM LUMBAR 2019-09-06 12:32:32 Raffi Florian IR MYELOGRAM 2+REG INCL 2019-09-06 11:12:24 Raffi Florian INJ W S&I XR LUMBAR SPINE COMPLETE 2019-08-14 11:06:30 Raffi Florian W BENDING XR SPINE SCOLIOSIS 2-3 2019-08-14 11:06:00 Raffi Florian on Yarsani VIEWS US CAROTID DUPLEX 2019-06-13 10:00:00 Silvio Torres Sc thodist BILATERAL CT ANGIOGRAM ABDOMINAL 2019-06-06 17:02:20 Silvio Torrse on Yarsani AORTA AND BILATERAL ILIOFEMORAL RUNOFF W WO CONTRAST POC CREATININE 2019-06-06 15:21:00 Jose Moreno ESTIMATED GFR 2019-06-06 15:21:00 Jose Moreno BASIC METABOLIC PANEL 2019-06-06 11:02:00 Silvio Torres COPY(IES) SENT TO: 2019-06-06 11:02:00 Silvio Torres ethodist COPY RECEIVED FROM: 2019-06-06 11:02:00 Silvio Torres ECG 12-LEAD 2019-06-06 09:55:18 Silvio Torres Meth odist MRI SPINE EXTERNAL STUDY 2019-03-06 15:47:00 Raffi Florian cholecys <sup>1</sup> [facility] ermann cholecys<sup>1</sup> [facility] Plan of Care Planned Activity Planned Date Details Comments Source Future Scheduled 2019-12-02 INFLUENZA VACCINE Anita Campbell Test 00:00:00 [code = INFLUENZA VACCINE] Future Scheduled 2018 65+ PNEUMOCOCCAL Fredo Campbell Test 00:00:00 VACCINE (1 of 2 - PCV13) [code = 65+ PNEUMOCOCCAL VACCINE (1 of 2 - PCV13)] Future Scheduled 2003-12-10 BREAST CANCER [facility] thodist Test 00:00:00 SCREENING [code = BREAST CANCER SCREENING] Future Scheduled 2003-12-10 COLONOSCOPY SCREENING Ho alxe Yarsani Test 00:00:00 [code = COLONOSCOPY SCREENING] Future Scheduled 2003-12-10 SHINGLES VACCINES (#1) H dany Yarsani Test 00:00:00 [code = SHINGLES VACCINES (#1)] Future Scheduled 1974 Screening for [place] [facility]odist Test 00:00:00 malignant neoplasm of cervix (procedure) [code = 911361525] Encounters Start End Encounter Admission Attending Care Care Encounter Source Date/Time Date/Time Type Type Clinicians Facility Department ID 2019-10-31 2019-10-31 Outpatient Guid[place]rie, [facility] [id number] 02:06:00 16:58:00 Yung Lerma 2019-10-31 2019-10-31 Outpatient U [facility] MED [id number] [facility] 02:06:00 02:06:00 2019-10-19 2019-10-19 Outpatient [facility] [id number] [place] 00:00:00 00:00:00 RAFFI [address] 2019-09-19 2019-09-22 Inpatient [facility] [id number] [place] 00:00:00 00:00:00 RAFFI [address] 2019-09-11 2019-09-11 Outpatient [facility] [id number] [place] 00:00:00 00:00:00 RAFFI [address] 2019-09-11 2019-09-11 Outpatient [facility] [id number] [place] 00:00:00 00:00:00 RAFFI [address] 2019-09-06 2019-09-06 [facility] [id number] [place] 00:00:00 00:00:00 RAFFI [address] 2019-09-06 2019-09-06 Outpatient [facility] [id number] [place] 00:00:00 00:00:00 RAFFI [address] 2019-09-06 2019-09-06 [facility] [id number] [place] 00:00:00 00:00:00 RAFFI [address] 2019-08-14 2019-08-14 Outpatient [facility] [id number] [place] 00:00:00 00:00:00 RAFFI [address] 2019-08-14 2019-08-14 Outpatient FLORIAN, [facility] [id number] [place] 00:00:00 00:00:00 RAFFI [address] 2019-08-14 2019-08-14 Outpatient FLORIAN, [facility] [id number] [place] 00:00:00 00:00:00 RAFFI [address] 2019-08-14 2019-08-14 Outpatient FLORIAN, [facility] [id number] [place] 00:00:00 00:00:00 RAFFI [address] 2019-08-14 2019-08-14 Outpatient FLORIAN, [facility] [id number] [place] 00:00:00 00:00:00 RAFFI [address] 2019-08-04 2019-08-04 Outpatient JOSELUIS PalaciosMISCHER MHMISCHER [id number] 09:15:00 09:15:00 Felice 10 [facility] 2019-07-28 2019-07-28 [facility] [id number] 17:09:00 23:59:00 Encounter Gila [place] [id number] [place] 4.2.7.2.686 [place] [id number] 2019-07-28 2019-07-28 Urgent Pob1, Acute [facility] [id number] 15:30:08 17:04:14 [facility] [id number] [place] 4.2.7.2.686 Profess [id number] nal [address] 2019-07-04 2019-07-04 Outpatient TORRES, [facility] [id number] [place] 00:00:00 00:00:[address] SILVIO [address] 2019-05-05 2019-05-05 Outpatient ALEJA PalaciosSCHER MHMISCHER [id number] 11:45:00 23:59:59 Felice 09 [facility] 2019-03-22 2019-03-22 Outpatient ALEJA PalaciosSCHER MHMISCHER [id number] 11:30:00 23:59:59 Felice 08 [facility] 2019-03-15 2019-03-15 Outpatient Krell, MHMISCHER MHMISCHER [id number] 11:15:00 23:59:59 Felice 07 [facility] 2018-12-21 2018-12-21 Outpatient JOSELUIS PalaciosMISCHER MHMISCHER [id number] 11:30:00 23:59:59 Felice 06 Tulio 2018-10-19 2018-10-19 Outpatient ALEJA PalaciosSCHER MHMISCHER [id number] 11:45:00 23:59:59 Felice 05 Tul[place] 2018-09-08 2018-09-08 Outpatient JOSELUIS PalaciosMISCHER MHMISCHER [id number] 14:30:00 23:59:59 Felice 04 [facility] 2018-08-18 2018-08-19 Outpatient MHMISCHER MHMISCHER [id number] 10:14:00 23:59:59 00 2017-05-06 2017-05-06 Outpatient Linh, [facility] [id number] 12:16:00 22:13:00 Bryan Alfred Results Test Description Test Time Test Comments Results Result Comments Source HEMATOLOGY 2019-10-31 20:36:00 Test Item Value Reference Range Interpretation Comme nts PT (test code = PT) 14.3 s 12.0-14.7 [facility]NH[facility]IVTAJL2244-03-00 20:36:00 Test Item Value Reference Range Interpretation Comments INR (test code = INR) 1.11 1 0.85-1.17 [facility] 20:36:00 Test Item Value Reference Range Interpretation Comments PTT (test code = PTT) 94.8 s 22.9-35.8 [facility] CenterFuedjzpCMXDTHKVVD1941-60-21 14:58:00 Test Item Value Reference Range Interpretation Comments PT (test code = PT) 14.4 s 12.0-14.7 [facility] CenterOjltgtzIOYRCVPANS4320-96-37 14:58:00 Test Item Value Reference Range Interpretation Comments INR (test code = INR) 1.11 1 0.85-1.17 [facility]PsnjuhlWAUQFPYVJB3732-46-27 14:58:00 Test Item Value Reference Range Interpretation Comments PTT (test code = PTT) 86.8 s 22.9-35.8 [facility] Ge.tt [facility] QRXKOGS2338-45-17 07:51:00Negative (10/31/19 2:51 AM) [facility] EYMSX2470-14-02 07:51:0091[facility]annCHEM PANEL 2019-10-31 07:51:0013[facility]annCHEM MEJCZ4144-28-62 07:51:000.70[facility]annCHEM XTCHW6759-39-61 07:51:02283Vlpmatuh HermannCHEM UGXID8135-99-48 07:51:004.0[facility]annCHEM NDUAI7193-29-79 07:51:98508Qnpqrgps HermannCHEM ILIGE0887-26-89 07:51:0024[facility]annCHEM DIJML8787-75-78 07:51:008.5 [facility]ann[facility] STMVL7076-80-51 07:51:006.[facility] HermannCHEM PANEL 2019-10-31 07:51:003.0[facility]annCHEM JWNAR9445-79-90 07:51:0016[facility]annCHEM EUCAQ9904-50-01 07:51:0020[facility]annCHEM MGOXA1994-86-55 07:51:15978Vapwoyzz HermannCHEM OBVCX2551-30-97 07:51:000.4[facility]annCHEM KTYLQ8134-71-95 07:51:0014.0[facility]annCHEM VCLNT9441-54-48 07:51:00 Test Item Value Reference Range Interpretation Comments B/C Ratio (test code = B/C Ratio) 19 1 6-25 [facility] DHRNZ4282-88-53 07:51:003.[facility] HermannCHEM PANEL 2019-10-31 07:51:00 Test Item Value Reference Range Interpretation Comments A/G Ratio (test code = A/G Ratio) 0.8 1 0.7-1.6 [facility] WADRH0323-37-02 07:51:0091[facility] HermannHEMATOLOGY 2019-10-31 07:51:008.0[facility] UsaiwccJWKJRELTUM8508-15-53 07:51:003.97[facility]orial ZjzzjvpQCODGBPPZP9259-35-36 07:51:0012.5[facility]orial QrenrbhWORJTLKJHN1640-20-45 07:51:0037.6[facility]orial JboentfVUHUDUMFSR0903-48-61 07:51:0094.8[facility] JHYFQVIBTL6067-09-01 07:51:00 Test Item Value Reference Range Interpretation Comments MCH (test code = MCH) 31.4 pg 27.0-31.0 [facility] LzhbbpaEKWVZIIWTR4079-42-43 07:51:0033.1[facility] HermannHEMATOLOGY 2019-10-31 07:51:0013.0[facility]orial GbehbipRLLRUNBAFB5819-49-96 07:51:04279Gpvtgojz IblnsaxYHPMDPVKBU8656-28-64 07:51:008.8[facility]orial MblnqofMQHLLMMNSJ0166-14-85 07:51:00 Test Item Value Reference Range Interpretation Comments PT (test code = PT) 14.2 s 12.0-14.7 [facility] QzaoobtFSYTUCMOEV1367-55-25 07:51:00 Test Item Value Reference Range Interpretation Comments INR (test code = INR) 1.10 1 0.85-1.17 [facility] YlotmkzURQNCVBCZV5949-42-98 07:51:00 Test Item Value Reference Range Interpretation Comments PTT (test code = PTT) 64.7 s 22.9-35.8 [facility] YvlquxbJUMOOKEVGN2514-57-35 07:51:0063.4[facility] HermannHEMATOLOGY 2019-10-31 07:51:0026.0[facility]orial WqlmorxBILQVKMWSJ3735-73-85 07:51:008.5[facility]orial VusrsvfAGJAMGYZBL0980-03-40 07:51:001.6[facility] KddbpbwUHSQQOCTGB4317-61-51 07:51:000.5[facility]orial QndwufqDMHWSCNDLK7069-99-28 07:51:005.1[facility] XFETZIZPIQ6490-22-99 07:51:002.1[facility]orial JjpxmsrFXVIYBZUHK3399-42-14 07:51:000.7 Memorial BjiodzcNAYMKBUZEN8495-05-25 07:51:000.1[facility] HermannSurgical pathology krzdvom0367-46-22 17:07:26 Test Item Value Reference Range Interpretation Comments Case number (test code = [id number]) Surgical pathology See link below for report (test code = PDF Lab Report 2253) Result status (test code This is Final Report = [id number]) for [id number] Fredo BrockG 12 egzf7109-34-96 15:18:08 Test Item Value Reference Range Interpretation Comments Ventricular rate (test 88 code = 253) Atrial rate (test code 88 = 255) ID interval (test code 164 = 266) QRSD [...] was found- Fredo Becerra drugs of abuse kszqyh4758-13-26 22:23:33 Test Item Value Reference Interpretation Comments Range Amphetamine screen, Negative urine (test code = 3349-8) Barbiturate screen, Negative urine (test code = 3377-9) Benzodiazepine Negative screen, urine (test code = 3390-2) Cocaine screen, Negative urine (test code = 3397-7) Methadone Negative metabolite (EDDP), urine (test code = 02528-2) Opiates screen, Negative urine (test code = 3879-4) Oxycodone screen, Positive A urine (test code = 66396-4) Phencyclidine Negative screen, urine (test code = 3936-2) Tricyclic screen, Negative urine (test code = 34256-7) Cannabinoid screen, Negative Drug scr een minimum [...] ired. Lab Interpretation Abnormal (test code = 21560-8) Fredo MethodistUrinalysis screen and microscopy, with reflex to culture 2019-09-20 20:48:08 Test Item Value Reference Range Interpretation Comments Specimen site (test code = Clean catch 4600987) Color, UA (test code = 5778-6) Straw Appearance, UA (test code = Clear 5767-9) Specific gravity, UA (test code = 1.003 1.001-1.035 5811-5) pH, UA (test code = 5803-2) 7.0 5.0-8.5 Protein, UA (test code = 63747-3) Negative Negative Glucose, UA (test code = 89297-5) Negative Negative Ketones, UA (test code = 2514-8) Negative Negative Bilirubin, UA (test code = Negative Negative 5770-3) Blood, UA (test code = 5794-3) Negative Negative Nitrite, UA (test code = 5802-4) Negative Negative Urobilinogen, UA (test code = <2.0 <2.0 23153-3) Leukocyte esterase, UA (test code Negative Negative = 5799-2) Epithelial cells, UA (test code = 5 /HPF 5787-7) WBC, UA (test code = 5821-4) 1 0- 4 /HPF RBC, UA (test code = 62254-4) 1 0- 5 /HPF Bacteria, UA (test code = Few None seen 05215-2) Yeast, UA (test code = 17424-8) None seen Yeast with pseudohyphae, UA (test None seen code = 88304-8) Fredo MethodistUrine tmkckvz6180-03-61 20:45:55 Test Item Value Reference Range Interpretation Comments Urine culture (test SEE COMMENT Bacteriu leigh ann screen code = 4721293) negative. Fredo MethodistCT Lumbar Spine Wo Rrceiyny5405-07-71 19:17:16Hm Interface, Radiology Results 09/20/2019 7:20 PM [...] canal narrowing.Stable spondylotic foraminal narrowing at L5-S1 bilaterally.[facility]-WPHYRRSHouston MethodistCT Cervical Spine Wo Thsogiqm0665-40-80 19:13:36Hm Interface, Radiology Results 09/20/2019 7:16 PM [...] canal narrowing.IMPRESSION:No acute fractures of the cervical spine.[facility]-WPHYRRSHouston MethodistAmmonia level 2019-09-20 19:03:26 Test Item Value Reference Range Interpretation Comments Ammonia (test code = 1841-6) 19 umol/L 11-51 [place] MethodistCT Head Wo Jbocluvq7618-05-72 18:49:46Hm Interface, Radiology Results 09/20/2019 6:52 PM [...] air cells are clear.IMPRESSION:No acute intracranial abnormality identified.[id number] MethodistIonized fkzpukk5725-66-57 18:34:40 Test Item Value Reference Range Interpretation Comments pH (test code = 2753-2) 7.52 Ionized calcium (test code = 1.13 mmol/L 1.11-1.32 ) Yoo LdkcygjloAqyqksef2505-54-81 18:28:56 Test Item Value Reference Range Interpretation Comments Troponin (test code 0.013 ng/mL 0-0.04 In patie nts suspected = 22289-2) of having a alpa cardial infarction, eder ng with all other appro priate clinical measur [...] decreased by le ss than 0.020 ng/mL [facility] metabolic iwjmt0810-09-77 18:27:26 Test Item Value Reference Range Interpretation Comments Sodium (test code = 2951-2) 145 135- 148 mEq/L Potassium (test code = 2823-3) 3.5 3.5- 5.0 mEq/L Chloride (test code = 2075-0) 105 98- 112 mEq/L CO2 (test code = 8-9) 23 24- 31 mEq/L L Anion gap (test code = 43529-2) 17@ANIO 7- 15 mEq/L H BUN (test code = 3094-0) 9 mg/dL 8-23 Creatinine (test code = 2160-0) 0.76 mg/dL 0.5-0.9 Glucose (test code = 2345-7) 142 mg/dL 65-99 H Calcium (test code = 21941-1) 9.5 mg/dL 8.8-10.2 Lab Interpretation (test code = Abnormal 12177-5) Yoo MethodistMagnesium nbgeh4755-25-98 18:27:26 Test Item Value Reference Range Interpretation Comments Magnesium (test code = 40431-5) 1.8 mg/dL 1.6-2.4 Yoo MethodistEstimated SRC3054-37-41 18:27:25 Test Item Value Reference Range Interpretation Comments Estimated GFR (test 82 mL/min/1.73 m2 [facility] code = 5488) InterpretationG 1 >=90 Normal or highG2 60-89 Mildly egnhlrloxK1d 45-59 Mildly to mode rately ywaaxfaccW8l 30-44 Moderately to severely decreasedG4 15-29 Severely decre asedG5 <15 Kidn ey failureThe eGFR was calculated adam killian the Chronic Kidney Disease Epidemiology Co llaboration (CKD-EPI) equat ion. Interpretation is based on recommendations of the National Kidney Foundation-Kidn ey Disease Outcomes Qualit y Initiative (NKF-KDOQI) pub lished in 2014. Fredo MethodistPhosphorus frdoi2752-55-96 18:27:24 Test Item Value Reference Range Interpretation Comments Phosphorus (test code = 2777-1) 2.6 mg/dL 2.4-4.5 Fredo MethodistPartial thromboplastin time, vibltqrgt6301-16-24 18:15:11 Test Item Value Reference Range Interpretation Comments PTT (test code = 24.7 23.0- 36.0 [place] [address]-2) unfractionated heparin is61.0-112.0 se conds which corresponds to Anti-Xa0.3-0.7 U/ml. Fredo MethodistProthrombin time with MBG7595 18:13:49 Test Item Value Reference Range Interpretation Comments Prothrombin time (test 13.3 11.5- 14.5 sec code = 5902-2) INR (test code = 1.0 The Interna tional 68332-4) Normalized Rati o (INR) is a therapeutic m onitoring tool for patien ts who are stable on oral anticoagulant t herapy. An INR of 2.0-3.0 is suggested for d eep vein thrombosis/pulm onary embolism. [place] MethodistCBC with platelet and znqxglvfjlzb4285-47-01 18:04:23 Test Item Value Reference Range Interpretation Comments WBC (test code = 69169-1) 13.52 4.50- 11.00 k/uL H RBC (test code = 87620-1) 4.10 m/uL 4.2-5.5 L HGB (test code = 718-7) 12.9 g/dL 12-16 HCT (test code = 4544-3) 39.3 % 37-47 MCV (test code = 787-2) 95.9 fL 82-100 MCH (test code = 785-6) 31.5 pg 27-34 MCHC (test code = 786-4) 32.8 g/dL 31-37 RDW - SD (test code = 42.5 fL 37-55 25609-0) MPV (test code = 20585-0) 10.4 fL 8.8-13.2 Platelet count (test code 229 150- 400 k/uL = 55529-3) Nucleated RBC (test code 0.00 /100 WBC = 78520-3) Neutrophils (test code = 78.5 % 39-69 H 89042-2) Lymphocytes (test code = 11.5 % 25-45 L 40516-2) Monocytes (test code = 9.4 % 0-10 01396-9) Eosinophils (test code = 0.0 % 0-5 77151-0) Basophils (test code = 0.2 % 0-1 42834-8) Immature granulocytes 0.4 % 0-1 "Immat ure (test code = 37031-0) granul ocytes" (promyelocytes, myelocytes, metamyelocytes) Lab Interpretation (test Abnormal code = 40834-5) Yoo [facility] ilhgmhg1469-35-17 16:26:11 Test Item Value Reference Range Interpretation Comments POC glucose (test code = 133 mg/dL 65-99 H Ope rator Name: Zion [id number]) HeidiDevice ID: [id number] able: [facility] Notified is project manager Interpretation (test Abnormal code = 03085-3) Fredo TybubazroIuwxla1034-83-29 15:59:28Douglas Gilmore MD 09/19/2019 4:00 PMAirwayPerformed by: Douglas Gilmore MDAuthorized by: Douglas Gilmore MD Duplicate noteHoutaravista behavioral health center AufujpmoyKcangc3352-93-85 15:51:07 Douglas Gilmore MD 09/19/2019 3:59 PMAirwayDate/Time: [...] visualization Number of Attempts at Approach: 2 Fredo MethodistArterial aita6886-33-41 15:50:10Douglas Gilmore MD 09/19/2019 3:51 PMArterial linePerformed [...] tolerated the procedure well with no immediate complicationsHouston MethodistXR Lumbar Spine 1 Rc8894-31-46 15:48:20 Hm Interface, Radiology Results 09/19/2019 3:51 PM CDTEXAMINATION: XR LUMBAR SPINE 1 VWCLINICAL HISTORY: Z98.890 Other specified postprocedural statesCOMPARISON: Lumbar radiograph 08/14/2019IMPRESSION:Single lateral intraoperative radiograph of the lumbar spine in bone and soft tissue filters demonstrates a posterior approach surgical instrument tip directed towards the L4-L5 level with tip projecting along the inferior aspect of the L4 spinous process.[id number] MethodistCOVID BioRef (NCOVB)2019-09-13 13:20:03 Test Item Value Reference Range Interpretation Comments COVID BioRef Not Detected Not Detected Source Nasophar yngeal (NCOVB) SwabTesting per formed at (test code = [facility] [address] [id number]) [place] [address] NOTE: Ple ase consider re-collection o f a new specimen, if cl inically indicated. NOTE : The COVID-19 assay has been cleared by the U.[place]. Food and DrugAdministrat ion under the Emergency Use A uthorization (EUA). [facility] is designated as a high complexity labo [...] under the Emergency Use A uthorization (EUA). [facility] is designated as a high complexi ty laboratory by the Clinical Laboratory Improvement Nina ndments of 1987(CLIA) and is qualified to perform this te st. ASSAY INFORMATION: Re al Time RT-PCR (Reported 09/12 12:29) [place] [id number] 13:47:39 Test Item Value Reference Range Interpretation Comments Sodium (test code = 142 135- 148 mEq/L 2951-2) Potassium (test code = 4.0 3.5- 5.0 mEq/L 2823-3) Chloride (test code = 100 98- 112 mEq/L 2075-0) CO2 (test code = 2027-9) 26 24- 31 mEq/L Anion gap (test code = 16@ANIO 7- 15 mEq/L H 33721-6) BUN (test code = 3094-0) 26 mg/dL 8-23 H Creatinine (test code = 0.90 mg/dL 0.5-0.9 2160-0) Glucose (test code = 111 mg/dL 65-99 H 2345-7) Calcium (test code = 10.5 mg/dL 8.8-10.2 H 76112-4) Protein (test code = 7.6 g/dL 6.3-8.3 -[place] n 2885-2) 4.6-7.0 g/dL1 week 4.4-7 .6 g/dL7 months-1y ear 5.1-7 .3 g/dL1-2 years 5.6-7 .5 g/dL>3 years 6.0-8 .0 g/uW20-434 6.3-8 .3 g/dL Albumin (test code = 4.0 g/dL 3.5-5 1751-7) A/G ratio (test code = 1.1 0.7-3.8 1759-0) Alkaline phosphatase 82 U/L 35-104 (test code = 6768-6) AST (test code = 1920-8) 20 U/L 10-35 ALT (test code = 1742-6) 17 U/L 5-50 Total bilirubin (test 0.3 mg/dL 0-1.2 code = 1975-2) Lab Interpretation (test Abnormal code = 15973-8) [facility]+Reg Incl Inj W S&C2571-94-36 14:46:39Hm Interface, Radiology Results 09/08/2019 2:49 PM [...] abnormalities.Mild blunting of the left C6 root sleeve.[facility]-[id number] MethodistCT Post Myelogram Ezvhbmga1681-98-75 12:41:37Hm Interface, Radiology Results 09/06/2019 12:44 PM [...] correlation for right C6 radiculopathy is recommended. [facility]-[id number] MethodistCT Post Myelogram Qecsgj4162-03-59 12:39:59Addendum by Ally Leong MD on 09/06/2019 5:14 PM ADDENDUM #1 Correctionof typographical error Foraminal protrusion at L3-4 on the left with impingement on the left L3 nerve root Interface, Radiology Results 09/06/2019 12:43 PM CDTEXAMINATION: [...] impingement on the right L3 nerve root. [facility]-[id number] External Mvtnb5547-91-63 12:29:05This exam was not acquired at a [facility] facility and has not been interpreted by a [facility] Provider. The exam was imported into our imaging system.[facility] W Flex and Ssl9577-00-60 11:34:25Hm Interface, Radiology Results 08/14/2019 11:37 AM [...] the right upper quadrant.IMPRESSION:Degenerative changes without acute abnormality.[facility]-[id number] and approved by radiology re sident/fellow: Aaron Garcia, Marilyn Charles MD, personally reviewed the images and resident's/fellow's findings and agree with the final report.[facility]ine Scoliosos 2-3 Extrv7189-40-13 11:11:25Hm Interface, Radiology Results 08/14/2019 11:14 AM [...] anterior plate and screw fixation and interbody graft.[id number] MethodistCOPY(IES) SENT TO:2019-06-07 05:40:00Copies/mLComment: TEVIN CARRASCO [address]ARD[address] [facility] [address] [place] [address] [facility] MethodistCOPY RECEIVED FROM:2019-06-07 05:40:00Copy received from:Comment: TEVIN [address]ARRASCO [address] [facility] [address] [place] [address] [facility] MdnoosimsMNEWAGXXJK0443-61-38 18:52:002 [facility] QqbhrbxDOWOOVRVMR3608-54-01 18:52:59244.20[facility]annHEMATOLOGY 2019-03-15 18:52:0062.60[facility] QklyeicEKUZOYKTQS6852-81-76 18:52:009[facility] LbxurnqIAYJBZHRGT5158-91-01 18:52:00 Test Item Value Reference Range Interpretation Comments Varicella IgM (test code = Varicella 0.69 1 IgM) [facility] GCRFA1965-42-15 21:21:00Negative (05/06/17 3:21 PM) [facility] LGAGX9449-26-60 21:21:00Negative (05/06/17 3:21 PM) [facility] KMKTZ3305-69-84 21:21:00Negative *NA*(05/06/17 3:21 PM) [facility] NCMXE0795-00-44 21:21:00Negative (05/06/17 3:21 PM) [facility] QVXDX9745-41-18 21:21:001[facility] KFJEH3715-84-90 21:21:002[facility] HBYJO2517-91-21 21:21:00 Yellow *NA*(05/06/17 3:21 PM)[facility] WOFQF7742-04-36 21:21:00 1.019[facility] BMWTQ8763-62-29 21:21:005.0[facility] AND QFQEJ5683-09-12 21:21:00Slight *ABN*(05/06/17 3:21 PM)[facility] HermannCHEM OGRDU0862-18-50 20:57:23252Uitpeltr HermannCHEM MEVVY8565-02-46 20:57:0042 [facility] GacomgpEEWHUUVLZNNC2091-43-99 20:57:27446Oenbzwse HermannELECTROLYTES 2017-05-06 20:57:11162Mdiugwcd UzmgjbyJLZKBDENIGVC5288-41-45 20:57:004.0[facility] CypnsyvVEPEUXHALJWT9070-83-11 20:57:0041[facility] KfbhwdgYGIVQPKZZIQI7390-39-84 20:57:000.7[facility] MegnwxtKNVUNYYYMLEZ5671-47-41 20:57:0082[facility] UALOUPDROQMI3686-85-24 20:57:001.0[facility] CaprzogFILRTCBZACFV2764-13-62 20:57:0019[facility] CttskteJPVMHWCXYGWD0181-84-54 20:57:0015[facility] MQDHLUSWTIUZ5150-94-87 20:57:004.1[facility] JjevewqUVSWXFDJYTJT6594-94-40 20:57:004.3[facility] CrdnlwqJAVGWROHHCLQ5377-40-73 20:57:0018[facility] RRVHCDXNSYPH4497-63-76 20:57:009.4[facility] UvinwuuJNFOEMNQYWVT1365-42-35 20:57:008.4[facility] XrigwdxMNAXJFIHNWXP8926-28-83 20:57:0027[facility] OPUOMCEPOLBY1697-04-96 20:57:0016.0[facility] CraupfvUDPCWTSQQGKO4589-11-25 20:57:001.36[facility] TrylkemJXATBTEPHITK0701-29-52 20:57:0024[facility] QXRTDSAIZLOY0453-92-09 20:57:0077[facility] WtbdgoeNXWEXUUUZX8686-38-24 20:57:00 2.3[facility] NmfjcpxSCGGXGOOYE4932-57-48 20:57:000.8[facility] HermannHEMATOLOGY 2017-05-06 20:57:000.2[facility] OvqvqloFJFPLRLYFL3909-25-89 20:57:000.4[facility] GuxsdzxVTUVGUAACV8900-84-90 20:57:006.4[facility] QmnypnqRGZYMMWMIY3588-54-54 20:57:0024.4[facility] EsifluvCIJYURTNXZ5637-86-39 20:57:008.1[facility] WBJWEMFSEX3050-36-82 20:57:0066.9[facility] MprublpPVJCOPWUOK7603-12-86 20:57:00 8.4[facility] DburkrpCDNHKECKWX7836-96-00 20:57:63534Lkgjqgtg HermannHEMATOLOGY 2017-05-06 20:57:00 Test Item Value Reference Range Interpretation Comments MCH (test code = MCH) 32.4 pg 27.0-31.0 [facility] ZqchfeeXNEWDXAJCY0332-43-02 20:57:0012.5[facility] HermannHEMATOLOGY 2017-05-06 20:57:0091.5[facility] KilgrbiHDVYJDGQUS3953-49-96 20:57:0035.4[facility] UunaluzFOBGCOYARP0109-72-84 20:57:0042.5[facility] MbosvtvIBTKZGRIVQ9265-09-12 20:57:009.6[facility] RhzjrddNVVTRFAMPC9467-22-61 20:57:0015.1[facility] MCIVDIXBTV8095-01-95 20:57:004.65[facility] NcnzupaAAZXBRJUH9415-85-47 05:00:0095 [facility] MsgbamvETOISHKAH1113-19-15 05:00:0012.9[facility] HermannCHEMISTRY 2013-01-23 05:00:008.5[facility] KrmijsoBSRZKFNXA1169-14-62 05:00:0075[facility] VsbtbjzSONXBCOMF4036-02-90 05:00:0028[facility] NmqrjkeOETONUTLX8717-62-27 05:00:00629Hcnxgunp QtudtemCNWDADTOS3652-33-33 05:00:003.9[facility] SRKDXZWNP2865-59-80 05:00:005[facility] GeinufbCWZAXADCM6863-52-33 05:00:000.7 [facility] YyfzxsfMCWNYCTOZ9770-29-02 05:00:61828Jclwgyxu HermannHEMATOLOGY 2013-01-23 05:00:008.4[facility] YthuluvVLZQHGBEQX9204-33-13 05:00:003.95[facility] FszmstwHPQDFHRZKM0930-45-01 05:00:005.7[facility] XdxmywoFMBBFDETHW4014-92-66 05:00:00 Test Item Value Reference Range Interpretation Comments MCH (test code = MCH) 33.0 pg 27.0-31.0 H Memorial PtcldqsEYKVWVSKAT5607-13-85 05:00:0037.4[facility] HermannHEMATOLOGY 2013-01-23 05:00:0013.0[facility] BguycjkJSVMIPUIVN2922-78-01 05:00:0094.8[facility] QxstgmjAGURPSHXIX4654-62-70 05:00:0012.6[facility] QohpynsHHEJONVZBP4687-96-48 05:00:0034.8[facility] QjsephhMKDYRQHSCV0046-27-71 05:00:26685Kwclevnh [facility] RIHYHCHQJW0550-29-11 05:00:0050.9[facility] LhhljnaPSKZQCUWUQ3160-76-05 05:00:00 36.5[facility] SgsmvatJSEIDOXUBQ6941-11-44 05:00:0010.0[facility] HermannHEMATOLOGY 2013-01-23 05:00:000.6[facility] MehbbzgNKWIJQWOOA5538-97-20 05:00:000.1[facility] CyeltkjFKOXUITXUP8450-23-16 05:00:002.9[facility] FstsuskBVYFUCDUEL0233-43-40 05:00:002.1[facility] FnlepnlZAXLANLZMA5895-80-12 05:00:002.2[facility] BIAJEQYJEK1244-32-37 05:00:000.4[facility] RhyeyqqEWMFMENPC4765-55-15 08:45:31481 [facility] JiwideoWJQLDPXBQ7236-03-15 08:45:003.1[facility] HermannCHEMISTRY 2013-01-22 08:45:001.0[facility] OgxvuifCOPOCKUTQ2600-39-30 08:45:004[facility] ApdmtstBZTLKZFPU0806-02-96 08:45:0011.9[facility] CzmrwfrYUUCZRLKE6900-75-73 08:45:0095[facility] NcleytuHPWBLBFYA1469-82-03 08:45:0016[facility] NWELDBXMR6268-33-21 08:45:0026[facility] UodlfgvDRVOGTKTX6860-58-83 08:45:008.0 [facility] FgdvrupWLUQQZLWT8851-89-93 08:45:006.1[facility] HermannCHEMISTRY 2013-01-22 08:45:000.5[facility] OhdbsbsAXXTMFQSC2490-00-90 08:45:000.7[facility] FjucljbZWJIPLBXS6144-30-61 08:45:60713Lrrlimno TgayvrfKGXZEBIIR0797-48-91 08:45:72197Mnggrgkc IaasjcdVVPXBWZGG3208-14-04 08:45:003.9[facility] XJVIOMJQC0332-87-96 08:45:0020[facility] QcittckHJKVBCBWD9781-17-92 08:45:003 [facility] ZkmniahHEXIGZMLG0296-03-96 08:45:93037Werbvuso HermannCHEMISTRY 2013-01-22 08:45:0074[facility] JozhxwvLDZSYODYQ8654-03-80 08:45:003.0[facility] RmbyzdkOPLPHBAVED8003-58-62 08:45:000.1[facility] JjbjndtBITCRRHWKV4143-31-49 08:45:000.3[facility] XfewtuuQAZWABGELW3280-50-76 08:45:002.8[facility] SKPGVREYXR3589-20-55 08:45:002.0[facility] QdjumjnMNYUPWXSQB1316-33-35 08:45:000.6 [facility] YkkkduoWJVITDIEBL6618-81-84 08:45:0035.5[facility] HermannHEMATOLOGY 2013-01-22 08:45:0011.0[facility] DpifufrDGWTSSYKLJ7343-98-35 08:45:002.1[facility] HkzvmxoSXQOSKZZPO1005-11-14 08:45:0051.1[facility] IjjaiqvAWGSNVWWOA8905-97-73 08:45:0015[facility] OtbugdfNVVXLWSGIS9748-66-84 08:45:0034.6[facility] ZFFCLSWVVO7080-20-90 08:45:00 Test Item Value Reference Range Interpretation Comments MCH (test code = MCH) 32.8 pg 27.0-31.0 H [facility] GdhovzuVZNEJTYDXM2410-23-85 08:45:0012.3[facility] HermannHEMATOLOGY 2013-01-22 08:45:008.2[facility] KfmfhftDAUTYAXDID6474-33-86 08:45:54175Pyuryyhv YfqevkkCAQQUITXZD5470-53-00 08:45:003.63[facility] MtndvjnYOPDJKFZCX9508-73-64 08:45:005.5[facility] FsxzqlmFEPDHJQPUW0234-01-95 08:45:0011.9[facility] JTBMQPVERK5008-87-78 08:45:0034.5[facility] TmfnjfiYLOCNZWIBQ8333-29-39 08:45:00 94.9[facility] HermannTUMOR KTMNIYB8907-60-55 08:45:007.0[facility] HermannCHEMISTRY 2013-01-21 16:51:550.9[facility] YbtlbkvGHFUIYTOK5637-27-80 16:51:0095[facility] MyvuzhiQLBKPMMXV2592-30-99 16:51:004.1[facility] DrlrwbdQPACMZZLG4897-18-34 16:51:78253Msqqivqc JsoapusJYDJMNJOE4739-43-96 16:51:41438Hivwiefs Agus ZVXPGMSPE9265-76-86 16:51:06045Tikxbrwj OcttjilZOTFRPIVZ6233-57-60 16:51:007 [facility] BknlcxwNMZIICQBY3145-83-77 16:51:0025[facility] HermannCHEMISTRY 2013-01-21 16:51:008.2[facility] WnzizewZZZHFOUDD8502-90-17 16:51:000.7[facility] SfwdqzzGQUXGJLVZ0838-10-79 16:51:0012.1[facility] AjrygugNLTFQBGNH1190-16-87 16:51:001.38[facility] HqnoiymWZMYWEMDG4022-03-37 07:55:001.8[facility] SWVSOIHOA4222-14-50 07:55:82306Scndzlbs RkjrpvlMVYQCJFGX7437-73-26 07:55:0066 [facility] IezjdiuKWIVMODVT1901-91-10 07:55:0018[facility] HermannCHEMISTRY 2013-01-21 07:55:002.9[facility] NxjpnkvXWTVZLVSB2421-33-35 07:55:0024[facility] KqvyxvxWUPGQTZBZ3066-50-91 07:55:000.7[facility] WfgwpdiWIRLBZLBI8285-73-77 07:55:005.7[facility] BggpgqzNYFHQHOUM8355-37-88 07:55:0022[facility] VUUWRFEKC8154-21-68 07:55:001.0[facility] AwwarxwUZJEHMCUY7169-48-83 07:55:002.8 [facility] VllqvxgBKAVKIALYG0677-49-18 07:55:008.6[facility]annHEMATOLOGY 2013-01-21 07:55:0023.8[facility] KbpxtzhVECECTZHOL3424-24-70 07:55:000.6[facility] EjzzfbnTFSWPIJRYN1241-58-27 07:55:0066.4[facility] KtqjrnzUJZXPINXFF1621-43-39 07:55:000.8[facility] JhqvffsLGUIMFLDKZ7692-92-19 07:55:002.1[facility] FZRGYBBXJU5297-63-23 07:55:000.6[facility] CixeowtIYNPDTKQWC9754-81-33 07:55:005.9 [facility] UvomfrkUFSTREGZQU4982-25-47 07:55:000.1[facility] HermannHEMATOLOGY 2013-01-21 07:55:000.1[facility] CdrkfqnXDCMAATKAH9785-11-96 07:55:0012.7[facility] JqqbhayEZKVUPZFVO7659-25-96 07:55:0034.1[facility] VymqrrzAEYRPYODVY5814-99-74 07:55:0095.7[facility] HiilftgZXKGCBSAVC2312-82-90 07:55:0011.5[facility] DZQBNWIAUZ7369-52-23 07:55:0033.6[facility] OadfplsXQGGTFPXYD4975-17-42 07:55:00 Test Item Value Reference Range Interpretation Comments MCH (test code = MCH) 32.6 pg 27.0-31.0 H [facility] KemwspjOPLGAXTCEZ9605-76-52 07:55:008.5[facility] HermannHEMATOLOGY 2013-01-21 07:55:52173Kinrwwiv ZbwqgkbPAEMBHEWRI4924-34-37 07:55:003.52[facility] UjxfevkNNANPSBOOX7244-34-75 07:55:008.9[facility] AlitbczPCJGIDNLVM4083-44-48 04:30:05Performed (01/19/2013 23:30:05)[facility] UmpvpngECPAHHKYWD5418-11-02 04:30:05None Seen (01/19/2013 23:30:05)[facility]nnjmffNVULHAXBGB5207-80-78 04:30:05Few /LPF (01/19/2013 23:30:05)[facility] CenterUhoifujXOWZRFHBEN8042-92-59 04:30:05None Seen (01/19/2013 23:30:05)[facility] CenterNcalpuvWDNJAGQNMG1547-04-97 04:30:05Negative (01/19/2013 23:30:05)[facility] CenterGhknxcfUFQJIOJNEX8547-15-76 04:30:050.2[facility] CezryhjWIYZADWFZL3095-49-10 04:30:05Negative *NA*(01/19/2013 23:30:05)[facility] CenterQqplfpyXEILYNEYNN0916-50-19 04:30:05Negative (01/19/2013 23:30:05)[facility] CenterGidqwzcGSZVZHEWBY7933-99-25 04:30:05Negative (01/19/2013 23:30:05)[facility] CenterKduqlrkMTMBGXYIFT1760-92-04 04:30:05Negative mg/dL (01/19/2013 23:30:05)[facility] CenterKkeipyaVYBJCFQTKK4480-28-47 04:30:05Negative mg/dL *NA*(01/19/2013 23:30:05)[facility] CenterExbdujpOVBFSJNTRM1404-51-96 04:30:05 Test Item Value Reference Range Interpretation Comments UA pH (test code = UA pH) 8.0 1 5.0-8.0 N [facility] CenterHtczjpeUIABVEJJCC6654-33-72 04:30:05Negative mg/dL (01/19/2013 23:30:05)[facility] CenterOdqouvmLQEWTSMPFW6970-86-97 04:30:05Clear (01/19/2013 23:30:05)[facility] XyrvjkdCYBGPKSAIG6726-89-03 04:30:05 Test Item Value Reference Range Interpretation Comments UA Spec Grav (test code = UA Spec 1.015 1 N Grav) [facility] OioxrgtYGHRAUEBXC5126-42-18 04:30:05Yellow *NA*(01/19/2013 23:30:05) [facility] YbwrpccCQEVMLDOK5383-72-65 03:30:73916Dgnlesia HermannCHEMISTRY 2013-01-20 03:30:007.3[facility] DiccfljZUPFHYCFE8664-04-80 03:30:000.5[facility] NrdiheoHAIHOFWXV0663-08-67 03:30:003.8[facility] SfvitliJGGMSQNAU3661-07-23 03:30:0030[facility] HwwvbymEKRKICXOU7732-22-44 03:30:0081[facility] CHSOGVFUU7304-70-87 03:30:000.1[facility] EphpumrCKFLLTUYH2227-61-96 03:30:0023 [facility] GoumgqgOTEQFZPMO2347-64-29 03:30:003.5[facility] HermannCHEMISTRY 2013-01-20 03:30:001.1[facility] MsvpreaZOFNTPVRD7526-27-27 03:30:000.4[facility] NbhhoelRIFJHOJGAQ5296-44-88 03:30:000.1[facility]
[2019-11-04 08:47] LABS: Absolute Lymphocytes (CBC) 1.8 K/uL (0.7-4.9); Basophils % 0.9 % (0-1.3); Lymphocytes % 22.5 % (15.3-44.8); Protime INR 1.73; RBC Red Blood Cell Count 4.32 M/uL (3.86-4.86)
--- NOTE | 2019-11-04 08:55 | EKG ---
Test Date: 2019-11-04 Test Time: 08:10:48 Agricultural Production Engineer: MARISSA MEASUREMENT RESULTS: Intervals: Rate: 79 WV: 128 QRSD: 84 QT: 380 QTc: 435 Lutz: P: 46 WV: 128 QRS: 18 T: 14 INTERPRETIVE STATEMENTS: Normal sinus rhythm Normal ECG Compared to ECG 11/02/2019 10:39:35 No significant changes Electronically Signed On 11-04-19 08:55:05 CDT by Miguelito Hidalgo
[2019-11-04 09:04] LABS: ALT/SGPT 18 U/L (12-78); AST/SGOT 15 U/L (15-37); Albumin 3.6 g/dL (3.4-5.0); Alkaline Phosphatase 117 U/L (45-117); BUN Blood Urea Nitrogen 16 mg/dL (7-18); Bicarbonate 28 mmol/L (21-32); Bilirubin Direct < 0.1 mg/dL (0-0.2); Bilirubin Total 0.3 mg/dL (0.2-1.0); Glucose Level 158 mg/dL (74-106); Magnesium 1.7 mg/dL (1.8-2.4); NT PRO-BNP 66 pg/mL (<125); Potassium 3.6 mmol/L (3.5-5.1); Protein, Total 7.8 g/dL (6.4-8.2); Sodium Level 140 mmol/L (136-145); Troponin (Emerg Dept Use Only) < 0.02 ng/mL (0.0-0.045)
[2019-11-04] MEDS ORDERED: ONDANSETRON 4 MG/2 ML VIAL ONE (09:57)
[2019-11-04] MEDS ORDERED: HYDROMORPHONE HCL 1 MG/ML INJ ONE (09:57)
--- NOTE | 2019-11-04 11:28 | EDPHYS ---
Physician Documentation [facility] Name: Haley Porter Age: 63 yrs Sex: Female : 1955 Arrival Date: 11/04/2019 Time: 08:00 Bed 4 Private MD: Rob Alonzo ED Physician Suzy Goss HPI: 11/03 08:50 This 63 yrs old Female presents to ER via Ambulatory with complaints of Chest pm1 Pain. 08:50 The patient or guardian reports chest pain that is located primarily in the anterior pm1 aspect of right lower chest. 08:50 Onset: 6 day(s) ago. The pain does not radiate. Associated signs and symptoms: pm1 Pertinent positives: dizziness, shortness of breath, Pertinent negatives: abdominal pain, cough, nausea, near syncope, vomiting. The chest pain is described as sharp. Duration: The patient or guardian reports a single episode, that is still ongoing. Modifying factors: the symptoms are aggravated by activity, deep breath, running. Severity of pain: in the emergency department the pain is unchanged despite patient's prescription oxycodone. The patient has been recently seen at the [facility] Emergency Department, for similar complaints 10/30 diagnosed with PE and transferred to [facility]. Patient was discharged home the following day. On 11/19 patient was seen here for the same complaint and had cardiac work up with CT chest, abdomen, pelvis. 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 Historical: - Allergies: 08:16 Morphine; ph 08:16 Oral steroids; ph 08:16 Valium; ph 08:16 Versed; ph - Home Meds: 08:16 omeprazole 20 mg Oral TbEC [Active]; quinapril 20 mg Oral tab 1 tab once daily ph [Active]; clorazepate dipotassium 7.5 mg oral tab 1 tab daily [Active]; Lyrica 100 mg oral cap 1 cap four times a day [Active]; oxycodone-acetaminophen 10-325 mg Oral tab 1 tab every 6 hours [Active]; furosemide 40 mg Oral tab 1 tab once daily [Active]; Eliquis oral oral instructed to take 10 mg BID for 1 week, then decrease to 5 mg [Active]; potassium chloride 20 mEq Oral TbTQ 1 tab once daily [Active]; Linzess 290 mcg oral cap 2 cap as needed [Active]; - PMHx: 08:16 Anxiety; Hypertension; Pancreatitis; TMJ; pulmonary emboli; ph - Immunization history:: Adult Immunizations unknown. - Social history:: Smoking status: Patient denies any tobacco usage or history of. ROS: 08:50 Constitutional: Negative for fever, chills, and weight loss, Neck: Negative for injury, pm1 pain, and swelling. 08:50 Abdomen/GI: Negative for abdominal pain, nausea, vomiting, diarrhea, and constipation, Back: Negative for injury and pain, : Negative for injury, bleeding, discharge, and swelling, MS/Extremity: Negative for injury and deformity, Skin: Negative for injury, rash, and discoloration, Neuro: Negative for headache, weakness, numbness, tingling, and seizure. 08:50 Cardiovascular: Positive for chest pain, of the anterior aspect of right lower chest, Negative for edema, palpitations. 08:50 Respiratory: Positive for shortness of breath, Negative for cough, sputum production, wheezing. Exam: 08:50 Constitutional: This is a well developed, well nourished patient who is awake, alert, pm1 and in no acute distress. Head/Face: Normocephalic, atraumatic. 08:50 Back: No spinal tenderness. No costovertebral tenderness. Full range of motion. Skin: Warm, dry with normal turgor. Normal color with no rashes, no lesions, and no evidence of cellulitis. MS/ Extremity: Pulses equal, no cyanosis. Neurovascular intact. Full, normal range of motion. 08:50 Chest/axilla: Inspection: normal, Palpation: tenderness, of the anterior aspect of right lower chest below breat. 08:50 Cardiovascular: Rate: normal, Rhythm: regular, Pulses: no pulse deficits are appreciated, Edema: is not appreciated. 08:50 Respiratory: Exam negative for acute changes, respiratory distress, shortness of breath, wheezing. 08:50 Abdomen/GI: Exam negative for acute changes, Inspection: abdomen appears normal, Palpation: abdomen is soft and non-tender, in all quadrants, mass, is not appreciated, rebound tenderness, is not appreciated. 08:50 Neuro: Exam negative for acute changes, Orientation: is normal, Motor: is normal, moves all fours, Sensation: is normal, no obvious gross deficits. Vital Signs: 08:09 BP 95 / 56; Pulse 84; Resp 20; Temp 97.3(TE); Pulse Ox 95% on R/A; Weight 81.19 kg; ph Height 5 ft. 6 in. (167.64 cm); Pain 10/10; 09:04 BP 104 / 60; Pulse 78; Resp 15; Pulse Ox 96% ; sv 10:17 BP 101 / 65; Pulse 64; Resp 12; Pulse Ox 94% on R/A; ph 11:30 BP 106 / 65; Pulse 67; Resp 18; Temp 97.6; Pulse Ox 96% on R/A; ph 08:09 Body Mass Index 28.89 (81.19 kg, 167.64 cm) ph MDM: 08:09 Patient medically screened. pm1 09:20 Counseling: I had a detailed discussion with the patient and/or guardian regarding: the pm1 historical points, exam findings, and any diagnostic results supporting the discharge/admit diagnosis, lab results, the need for outpatient follow up. 09:20 Special discussion: I discussed with the patient/guardian in detail that at this point pm1 there is no indication for admission to the hospital. It is understood, however, that if the symptoms persist or worsen the patient needs to return immediately for re-evaluation. Dr. Campbell and I discussed with the patient her labs, ECG, x-ray results and excepted course of treatment together. Patient requested for an additional CT chest, but we explain to her that it is not medically necessary. Patient is on the appropriate blood thinners and her prior CT on 11/02/2019 revealed improving PE. She wanted to be admitted but we explained to here that there is no indications for admission. 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 09:34 Data reviewed: vital signs. Data interpreted: Pulse oximetry: on room air is 96 %. pm1 Interpretation: normal. 11/03 08:16 Order name: Basic Metabolic Panel pm1 11/03 08:16 Order name: CBC with Diff; Complete Time: 08:50 pm1 11/03 08:16 Order name: LFT's; Complete Time: 09:06 pm1 11/03 08:16 Order name: Magnesium; Complete Time: 09:06 pm1 11/03 08:16 Order name: NT PRO-BNP; Complete Time: 09:06 pm1 11/03 08:16 Order name: PT-INR; Complete Time: 08:50 pm1 11/03 08:16 Order name: Troponin (emerg Dept Use Only); Complete Time: 09:06 pm1 11/03 08:16 Order name: XRAY Chest (1 view); Complete Time: 11:53 pm1 11/03 08:16 Order name: EKG; Complete Time: 08:17 pm1 11/03 08:16 Order name: Cardiac monitoring; Complete Time: 08:20 pm1 11/03 08:16 Order name: EKG - Nurse/Tech; Complete Time: 08:20 pm1 11/03 08:17 Order name: Basic Metabolic Panel; Complete Time: 09:06 EDMS 11/03 08:16 Order name: IV Saline Lock; Complete Time: 08:23 pm1 11/03 08:16 Order name: Labs collected and sent; Complete Time: 08:23 pm1 11/03 08:16 Order name: O2 Per Protocol; Complete Time: 08:20 pm1 11/03 08:16 Order name: O2 Sat Monitoring; Complete Time: 08:20 pm1 Administered Medications: 09:49 Drug: Zofran (Ondansetron) 4 mg Route: IVP; Site: left antecubital; ph 12:01 Follow up: Response: No adverse reaction ph 09:52 Drug: Dilaudid 1 mg Route: IVP; Site: left antecubital; ph 10:30 Follow up: Response: No adverse reaction; Pain is decreased; RASS: Alert and Calm (0) ph Disposition: 18:35 Co-signature as Attending Physician, Suzy Goss MD. ma2 Disposition: 11/04/19 11:28 Discharged to Home. Impression: Pulmonary embolism. - Condition is Stable. - Discharge Instructions: Pulmonary Embolism. - Medication Reconciliation Form, Thank You Letter, Antibiotic Education, Prescription Opioid Use form. - Follow up: Emergency Department; When: As needed; Reason: Worsening of condition. Follow up: Private Physician; When: 2 - 3 days; Reason: Recheck today's complaints, Continuance of care, Re-evaluation by your physician. - Problem is new. - Symptoms have improved. Signatures: Dispatcher [employer] Kayla Toledo RN RN ph Lenny Andres, CORROSION CONTROL TECHNICIAN CORROSION CONTROL TECHNICIAN pm1 Suzy Goss MD MD ma2 Corrections: (The following items were deleted from the chart) 12:01 11:28 11/04/2019 11:28 Discharged to Home. Impression: Pulmonary embolism. Condition is ph Stable. Discharge Instructions: Pulmonary Embolism. Forms are Medication Reconciliation Form, Thank You Letter, Antibiotic Education, Prescription Opioid Use. Follow up: Emergency Department; When: As needed; Reason: Worsening of condition. Follow up: Private Physician; When: 2 - 3 days; Reason: Recheck today's complaints, Continuance of care, Re-evaluation by your physician. Problem is new. Symptoms have improved. pm1
--- NOTE | 2019-11-04 11:28 | ER ---
Nurse's Notes [facility] Name: Haley Porter Age: 63 yrs Sex: Female : 1955 Arrival Date: 11/04/2019 Time: 08:00 Bed 4 Private MD: Rob Alonzo Diagnosis: Pulmonary embolism Presentation: 11/03 08:09 Chief complaint: Patient states: Mid sternal chest pain radiating to R chest, also c/o ph SOB, recently seen in [place] and dx w/ blood clots in R lung, is currently taking Eliquis, denies fever, N/V. Coronavirus screen: Patient denies a cough. Patient reports shortness of breath or difficulty breathing. Patient denies measured and/or subjective temperature greater than 100.4F prior to today's visit. Patient denies travel on a cruise ship or to a country the [facility] currently lists as an affected area. Patient denies contact with known and/or suspected case of COVID-19. Ebola Screen: No symptoms or risks identified at this time. Initial Sepsis Screen: Does the patient meet any 2 criteria? No. Patient's initial sepsis screen is negative. Does the patient have a suspected source of infection? No. Patient's initial sepsis screen is negative. Risk Assessment: Do you want to hurt yourself or someone else? Patient reports no desire to harm self or others. Onset of symptoms was November 04, 2019. 08:09 Method Of Arrival: Ambulatory ph 08:09 Acuity: RADHA 3 ph Historical: - Allergies: 08:16 Morphine; ph 08:16 Oral steroids; ph 08:16 Valium; ph 08:16 Versed; ph - Home Meds: 08:16 omeprazole 20 mg Oral TbEC [Active]; quinapril 20 mg Oral tab 1 tab once daily ph [Active]; clorazepate dipotassium 7.5 mg oral tab 1 tab daily [Active]; Lyrica 100 mg oral cap 1 cap four times a day [Active]; oxycodone-acetaminophen 10-325 mg Oral tab 1 tab every 6 hours [Active]; furosemide 40 mg Oral tab 1 tab once daily [Active]; Eliquis oral oral instructed to take 10 mg BID for 1 week, then decrease to 5 mg [Active]; potassium chloride 20 mEq Oral TbTQ 1 tab once daily [Active]; Linzess 290 mcg oral cap 2 cap as needed [Active]; - PMHx: 08:16 Anxiety; Hypertension; Pancreatitis; TMJ; pulmonary emboli; ph - Immunization history:: Adult Immunizations unknown. - Social history:: Smoking status: Patient denies any tobacco usage or history of. Screenin:17 Abuse screen: Denies threats or abuse. Denies injuries from another. Nutritional ph screening: No deficits noted. Tuberculosis screening: No symptoms or risk factors identified. Fall Risk None identified. Assessment: 08:18 General: Appears in no apparent distress. uncomfortable, Behavior is cooperative, ph appropriate for age, anxious, Denies fever, feeling ill. Pain: Complains of pain in mid-sternal area Pain radiates to anterior aspect of right upper chest Pain currently is 10 out of 10 on a pain scale. Neuro: Level of Consciousness is awake, alert, obeys commands, Oriented to person, place, time, situation. Cardiovascular: Reports chest pain, shortness of breath, Denies nausea, palpitations, vomiting, Capillary refill < 3 seconds in bilateral fingers Patient's skin is warm and dry. Rhythm is sinus rhythm Chest pain is located in right anterior chest wall substernal area. Respiratory: Reports shortness of breath at rest Airway is patent Respiratory effort is even, unlabored, Respiratory pattern is regular, symmetrical, Denies cough. GI: No signs and/or symptoms were reported involving the gastrointestinal system. Derm: Skin is intact, is healthy with good turgor, Skin is pink, warm \\T\\ dry. Musculoskeletal: Circulation, motion, and sensation intact. Range of motion: intact in all extremities. 10:35 Reassessment: Patient appears in no apparent distress at this time. Patient and/or ph family updated on plan of care and expected duration. Pain level reassessed. Patient is alert, oriented x 3, equal unlabored respirations, skin warm/dry/pink. Pt states that pain has decreased after IV Dilaudid, rates pain 6/10, down from 10/10, denies nausea at at this time. 11:54 Reassessment: Patient appears in no apparent distress at this time. Patient and/or ph family updated on plan of care and expected duration. Pain level reassessed. Patient is alert, oriented x 3, equal unlabored respirations, skin warm/dry/pink. Pt tearful upon d/c, asked pt if she was worried about being d/c pt states " I'm not worried about that, I'm just still in pain." Pt states that she does have pain medication at home. Asked pt if she would like to speak w/ provider again, pt states, " No, I'm just going to go home, don't worry, y'all won't see me again." Pt offered wheelchair, pt declined, states, " I can walk out.". Vital Signs: 08:09 BP 95 / 56; Pulse 84; Resp 20; Temp 97.3(TE); Pulse Ox 95% on R/A; Weight 81.19 kg; ph Height 5 ft. 6 in. (167.64 cm); Pain 10/10; 09:04 BP 104 / 60; Pulse 78; Resp 15; Pulse Ox 96% ; sv 10:17 BP 101 / 65; Pulse 64; Resp 12; Pulse Ox 94% on R/A; ph 11:30 BP 106 / 65; Pulse 67; Resp 18; Temp 97.6; Pulse Ox 96% on R/A; ph 08:09 Body Mass Index 28.89 (81.19 kg, 167.64 cm) ph ED Course: 08:00 Patient arrived in ED. mr 08:00 Rob Alonzo MD is Private Physician. mr 08:07 Lenny Andres NP is PHCP. pm1 08:07 Suzy Goss MD is Attending Physician. pm1 08:10 Triage completed. ph 08:13 EKG done, by ED staff, reviewed by Lenny Andres NP. em1 08:17 Arm band placed on Patient placed in an exam room, on a stretcher, on cafeteria monitor, ph on pulse oximetry. 08:17 Patient has correct armband on for positive identification. Placed in gown. Bed in low ph position. Call light in reach. Side rails up X 1. cafeteria monitor on. Pulse ox on. NIBP on. Door closed. Noise minimized. Warm blanket given. 08:19 Patient maintains SpO2 saturation greater than 95% on room air. ph 08:20 Kayla Alfonso RN is Primary Nurse. ph 08:22 Basic Metabolic Panel Sent. sv 08:28 Initial lab(s) drawn, by me, sent to lab. Inserted saline lock: 20 gauge in left kj1 antecubital area, using aseptic technique. Blood collected. 08:42 Basic Metabolic Panel Sent. [email or web address] 08:42 CBC with Diff Sent. kj1 08:42 LFT's Sent. kj1 08:42 Magnesium Sent. kj1 08:42 NT PRO-BNP Sent. kj1 08:45 X-ray(s) taken. 08:57 XRAY Chest (1 view) In Process Unspecified. EDMS 10:17 No provider procedures requiring assistance completed. ph 12:01 IV discontinued, intact, bleeding controlled, No redness/swelling at site. Pressure ph dressing applied. Administered Medications: 09:49 Drug: Zofran (Ondansetron) 4 mg Route: IVP; Site: left antecubital; ph 12:01 Follow up: Response: No adverse reaction ph 09:52 Drug: Dilaudid 1 mg Route: IVP; Site: left antecubital; ph 10:30 Follow up: Response: No adverse reaction; Pain is decreased; RASS: Alert and Calm (0) ph Outcome: 11:28 Discharge ordered by MD. pm1 12:00 Discharged to home ambulatory. ph 12:00 Condition: good 12:00 Discharge instructions given to patient, Instructed on discharge instructions, follow up and referral plans. Demonstrated understanding of instructions, follow-up care. 12:01 Patient left the ED. ph Signatures: Dispatcher [employer] Deedee Maharaj RN RN sv Rivera, Prabhakar Sánchez em1 Kayla Alfonso RN RN ph Marinas, Patrick, VIK PHOTO FINISHER pm1 Radha Victor kj1
--- NOTE | 2019-11-04 11:50 | RAD REPORT ---
EXAM DESCRIPTION: RAD - Chest Single View - 11/04/2019 8:57 am CLINICAL HISTORY: CHEST PAIN Chest pain. COMPARISON: Chest Single View dated 11/02/2019; Chest Single View dated 10/30/2019; Chest Single View d ated 01/11/2016; Chest Single View dated 09/19/2015 FINDINGS: Portable technique limits examination quality. Right mid lung opacity is again noted, unchanged. The lungs are otherwise clear. The heart is normal in size. Cervical spine hardware noted. IMPRESSION: Stable chest since 11/02/2019.
[2019-11-04 12:10] VITALS: BP 106/65; TEMP 97.6; O2SAT 96
== END 2019-11-04 12:01 | disposition home or self-care (01) ==
LOC: ER 07:57
DX: I26.99 Other pulmonary embolism without acute cor pulmonale (principal); I10 Essential (primary) hypertension; F41.9 Anxiety disorder, unspecified; Z88.5 Allergy status to narcotic agent; Z88.8 Allergy status to other drugs, medicaments and biological substances
CPT/HCPCS: 93005; 85025; 80048; 36415; 83735; 85610; 80076; 84484; 83880; 71045; 96375; 96374; 99285; J1170; J2405

== ENCOUNTER 2019-11-16 10:17 | Emergency (ER) | payer OTHER ==
--- OUTSIDE RECORDS SUMMARY | 2019-11-16 11:00 | XMS REPORT | Clinical Summary ---
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 Radiculopathy o f thoracic region 08/22/2019 Orders Only Neurosurgery Wanda Cotter, Thoracic radicu lopathy (Primary Dx); [employer]ACILITY OPERATOR Spinal stenosis of lumbar region, unspecified [...] 08/07/2019 Travel 08/02/2019 Abstract Neurosurgery Wanda Cotter, [employer]ILITY OPERATOR 07/27/2019 Travel 07/04/2019 Office Visit Cardiology [...] Danitza Bilateral carot id artery stenosis after 11/15/2018 Family History Medical History Relation Name Comments [...] INFLUENZA VACCINE 12/02/2019 Implants Implanted Type Area Software Developer Consultant Device Shelf Model / Identifier Expiration Serial / Date Lot System Spine Selnt For Dural Selng Exact 5ml Duraseal - [id number] Cardiovascular N/A: [employer] 11/30/[id number] / Implanted: Qty: 1 on 09/19/2019 by Triston Noel MD at [facility] Implants N/A LIFESCIENCE / NEURO [id number] Procedures Procedure Name Priority Date/Time Associated Diagnosis [...] procedure are i n the results section. MT AN ELECTIVE Routine 09/19/2019 3:51 Results f [...] neurogenic claudication Case Notes EXTENDED RECOVERY NEEDED, SC CROSCOPE, KARISHMA FRAME Special Needs EXTENDED RECOVERY NEEDED, SC CROSCOPE, KARISHMA FRAME SURGICAL PATHOLOGY Routine 09/19/2019 [...] (peripheral Res ults for this BILATERAL AM [facility]ICE artery disease) ([facility] proced ure are in the results section. CT ANGIOGRAM Routine 06/06/2019 5:02 PAD (peripheral Results for this ABDOMINAL AORTA AND PM [facility] JUSTICE artery disease) ([facility]) procedure are in BILATERAL ILIOFEMORAL the re sults RUNOFF W WO CONTRAST section . ESTIMATED GFR Routine 06/06/2019 3:21 Results fo r this PM [facility] procedure are i n the results section. POC CREATININE Routine 06/06/2019 3:21 Results f or this PM [facility] procedure are i n the results section. COPY RECEIVED FROM: Routine 06/06/2019 11:02 Resu lts for this AM [facility] procedure are i n the results section. COPY(IES) SENT TO: Routine 06/06/2019 11:02 Resul ts for this AM [facility] procedure are i n the results section. BASIC METABOLIC PANEL Routine 06/06/2019 11:02 PAD (peripheral Results for this AM [facility] artery disease) ([facility]) proced ure are in the results section. ECG 12-LEAD Routine 06/06/2019 9:55 Bilateral carotid Result s for this AM [facility] artery stenosis procedure ar e in the results section. MRI SPINE EXTERNAL Routine 03/06/2019 3:47 Resul ts for this STUDY [facility] procedure are i n the results section. after 11/15/2018 Results Urine culture (09/20/2019 7:30 PM CDT) Pathologist Sig nature Urine culture SEE COMMENTComment: [facility] Bacteriuria screen HOSPITAL negative. Specimen Performing Organization Address City/State/Zipcode Phone Number [facility] DEPARTMENT OF PATHOLOGY AND [address], [place] [address] GENOMIC MEDICINE [facility] [address] [place] [address] Cervical Spine Wo Contrast (09/20/2019 6:46 [...] acute fractures of the cervical spine . [facility] Procedure Note Interface, Radiology Results Incoming [...] acute fractures of the cervical spine . [facility] Performing Organization Address City/State/Zipcode Phone Number [facility] [address] [place] [address] CT Head Wo Contrast (09/20/2019 6:45 PM [...] IMPRESSION: No acute intracranial abnormality identi fied. [id number] Procedure Note Interface, Radiology Results Incoming - [...] IMPRESSION: No acute intracranial abnormality identi fied. [id number] Performing Organization Address City/State/Zipcode Phone Number [facility] [address] [facility] [place] [address] CT Lumbar Spine Wo Contrast (09/20/2019 6:43 [...] t L5-S1 bilaterally. [facility] Performing Organization Address City/[facility]/Zipcode Phone Number [facility] [address] [place] [address] CBC with platelet and differential (09/20/2019 5:36 PM CDT)Only the most recent of2 resultswithin the time period is included. WBC 13.52 (H) 4.50 - 11.00 [facility] k/uL HOSPITAL RBC 4.10 (L) 4.20 - 5.50 [facility] m/uL HOSPITAL HGB 12.9 12.0 - 16.0 [facility] g/dL HOSPITAL HCT 39.3 37.0 - 47.0 % [facility] MCV 95.9 82.0 - 100.0 [facility] MCH 31.5 27.0 - 34.0 pg [facility] MCHC 32.8 31.0 - 37.0 [facility] gdL [facility] RDW - SD 42.5 37.0 - 55.0 fL [facility] MPV 10.4 8.8 - 13.2 fL [facility] Platelet count 229 150 - 400 k/uL [facility] Nucleated RBC 0.00 /100 WBC [facility] Neutrophils 78.5 (H) 39.0 - 69.0 % [facility] Lymphocytes 11.5 (L) 25.0 - 45.0 % [facility] Monocytes 9.4 0.0 - 10.0 % [facility] Eosinophils 0.0 0.0 - 5.0 % [facility] Basophils 0.2 0.0 - 1.0 % [facility] Immature granulocytes 0.4Comment: 0.0 - 1.0 % [facility] "Immature HOSPITAL granulocytes" (promyelocytes , myelocytes, metamyelocytes ) Specimen Blood Performing Organization Address City/[facility]/Zipcode Phone Number [facility] DEPARTMENT OF PATHOLOGY AND [address] [place] [phone] GENOMIC MEDICINE [address] [address] Ammonia level (09/20/2019 5:36 PM CDT) Pathologist Sig nature Ammonia 19 11 - 51 umol/L [facility] Specimen Blood Performing Organization Address City/[facility]/Zipcode Phone Number [facility] DEPARTMENT OF PATHOLOGY AND [address] [place] [id number] [place] [address] Urinalysis screen and microscopy, with reflex to culture (09/20/2019 5:30 PM CDT) Specimen site Clean catch [facility] Color, UA Straw [facility] Appearance, UA Clear [facility] Specific gravity, UA 1.003 1.001 - 1.035 [facility] pH, UA 7.0 5.0 - 8.5 [facility] Protein, UA Negative Negative [facility] Glucose, UA Negative Negative [facility] Ketones, UA Negative Negative [facility] Bilirubin, UA Negative Negative [facility] Blood, UA Negative Negative [facility] Nitrite, UA Negative Negative [facility] Urobilinogen, UA <2.0 <2.0 [facility] Leukocyte esterase, Negative Negative [facility] Epithelial cells, UA 5 /HPF [facility] WBC, UA 1 0 - 4 /HPF [facility] RBC, UA 1 0 - 5 /HPF [facility] Bacteria, UA Few None seen [facility] Yeast, UA None seen [facility] Yeast with None seen [facility] pseudohyphae, HOSPITAL Specimen Urine Performing Organization Address City/State/Zipcode Phone Number [facility] DEPARTMENT OF PATHOLOGY AND [address] [place], [place] [address] [address] [address] Urine drugs of abuse screen (09/20/2019 5:30 PM CDT) Amphetamine screen, Negative [facility] urine [facility] Barbiturate screen, Negative PRUDEN urine [facility] Benzodiazepine Negative [facility] screen, urine [facility] Cocaine screen, urine Negative [facility] Methadone metabolite Negative [facility]UDEN (EDDP), urine [facility] Opiates screen, urine Negative [facility] Oxycodone screen, Positive (A) [facility]UDEN urine [facility] Phencyclidine screen, Negative [facility]UDEN urine [facility] Tricyclic screen, Negative [facility]UDEN urine [facility] Cannabinoid screen, Negative [facility]UD[facility] urine Comment: [facility] Drug screen minimum concentration of detectability HOSPITAL [...] Organization Address City/State/Zipcode Phone Number [facility] DEPARTMENT OF PATHOLOGY AND [address] [phone] [address] Estimated GFR (09/20/2019 5:20 PM CDT)Only the [...] Organization Address City/State/Zipcode Phone Number [facility] DEPARTMENT OF PATHOLOGY AND [address] [address] Troponin (09/20/2019 5:20 PM CDT) Troponin 0.013 [...] 0.020 ng/mL Specimen Blood Performing Organization Address City/[facility] Phone Number [facility] DEPARTMENT OF PATHOLOGY AND [address] [place], [place] [address] [address] [place] [address] Partial thromboplastin time, activated (09/20/2019 5:20 PM CDT) [facility] PTT 24.7 23.0 - 36.0 [facility] Comment: [facility] PTT therapeutic range for unfractionated heparin is 61.0-112.0 seconds which corresponds to Anti-Xa 0.3-0.7 U/ml. Specimen Blood Performing Organization Address [facility] Phone Number [facility] DEPARTMENT OF PATHOLOGY AND [address] [place] [address] [phone] [address] Prothrombin time with INR (09/20/2019 5:20 PM CDT) [facility] Prothrombin time 13.3 11.5 - 14.5 [facility] INR 1.0 [facility] Comment: [facility] International Normalized Ratio (INR) is a therapeu [facility] monitoring tool for patients who are stable on oral anticoagulant therapy. An INR of 2.0-3.0 is suggested for deep vein thrombosis/pulmonary embolism. Specimen Blood Performing Organization Address City/[facility] Phone Number [facility] DEPARTMENT OF PATHOLOGY AND [address] [place] [address] [phone] [address] Phosphorus level (09/20/2019 5:20 PM CDT) Pathologist Sig nature Phosphorus 2.6 2.4 - 4.5 mg/dL [facility] Specimen Blood Performing Organization Address City/[facility] Phone Number [facility] DEPARTMENT OF PATHOLOGY AND [address] [place] [address] [phone] [address] Magnesium level (09/20/2019 5:20 PM CDT) Pathologist Sig nature Magnesium 1.8 1.6 - 2.4 mg/dL [facility] Specimen Blood Performing Organization Address City/[facility] Phone Number [facility] DEPARTMENT OF PATHOLOGY AND [address] [place] [address] [phone] [address] Ionized calcium (09/20/2019 5:20 PM CDT) Pathologist Sig [facility] pH 7.52 [facility] Ionized calcium 1.13 1.11 - 1.32 mmol/L [facility] Specimen Blood Performing Organization Address [facility] Phone Number [facility] DEPARTMENT OF PATHOLOGY AND [address] [place] [address] [phone] [address] Basic metabolic panel (09/20/2019 5:20 PM CDT)Only the most recent of2 results within the time period is included. Pathologist Sig nature Sodium 145 135 - 148 mEq/L [facility] Potassium 3.5 3.5 - 5.0 mEq/L [facility] Chloride 105 98 - 112 mEq/L [facility] CO2 23 (L) 24 - 31 mEq/L [facility] Anion gap 17@ANIO (H) 7 - 15 mEq/L [facility] BUN 9 8 - 23 mg/dL [facility] Creatinine 0.76 0.50 - 0.90 mg/dL [facility] Glucose 142 (H) 65 - 99 mg/dL [facility] Calcium 9.5 8.8 - 10.2 mg/dL [facility] Specimen Blood Performing Organization Address City/[facility] Phone Number [facility] DEPARTMENT OF PATHOLOGY AND [address] [place] [address] [phone] [address] ECG 12 lead (09/20/2019 4:27 PM CDT)Only the most recent of2 resultswithin the time period is included. Pathologist Sig nature Ventricular rate 88 [facility] Atrial rate 88 [facility] MT interval 164 [facility] QRSD interval 90 [...] Organization Address City/State/Zipcode Phone Number [facility] MUSE [address] [place] [address] POC glucose (09/20/2019 4:25 PM CDT) Pathologist Sig nature POC glucose 133 (H) 65 - 99 mg/dL [facility] Comment: HOSPITAL Curbing Stonecutter Name: Zion Crump Device ID: [id number] Chartable: [facility] Notified RN Specimen Blood Performing Organization Address City/State/Zipcode Phone Number [facility] DEPARTMENT OF PATHOLOGY AND [address] [place] [phone] GENOMIC MEDICINE [address] [address] Airway (09/19/2019 3:59 PM CDT) Narrative Performed [...] aspect of the L4 spin ous process. [id number] Procedure Note Hm Interface, Radiology Results Incoming [...] inferior aspect of the L4 spinous process. [id number] Performing Organization Address City/[facility]/Zipcode Phone Number [facility] [address] [place] [address] Surgical pathology request (09/19/2019 8:26 AM CDT) [facility] DEPARTMENT OF PATHOLOGY AND GENOMIC MEDICINE Surgical pathology See link below [facility] DEPARTMENT OF report for PDF Lab PATHOLOGY AND Report GENOMIC MEDICINE Result status This is Final [facility] DEPARTMENT OF Report for PATHOLOGY AND [id number] GENOMIC MEDICINE Specimen Performing Organization Address [facility] Phone Number [facility] DEPARTMENT OF PATHOLOGY AND [address] [place] [phone] GENOMIC MEDICINE COVID BioRef (NCOVB) (09/11/2019 12:19 PM CDT) COVID BioRef Not Detected Not Detected [facility] (NCOVB) Comment: Source Nasopharyngeal Swab Testing performed at [facility] [address] [place] [address] NOTE: Please consider re-collection of a new specimen, if clinically indicated. NOTE: The COVID-19 assay has been cleared by the U.S. Food and Drug Administration under the Emergency Use Authorization ( EUA). [employer] is designated as a high complexity labora [...] under the Emergency Use Authorization ( EUA). [employer] is designated as a high complexity labora tory by the Clinical Laboratory Improvement Amendments of 1988(CLIA) and is qualified to perform this test. ASSAY INFORMATION: Real Time RT-PCR (Reported 2019 12:29) Specimen Nasopharyngeal Performing Organization Address City/[facility]/Zipcode Phone Number [facility] DEPARTMENT OF PATHOLOGY [address] [place] [address] AND [facility] [address] [address] Comprehensive metabolic panel (09/11/2019 12:11 PM CDT) Sodium 142 135 - 148 [facility] mEq/L [facility] Potassium 4.0 3.5 - 5.0 [facility] mEq/L [facility] Chloride 100 98 - 112 [facility] mEq/L [facility] CO2 26 24 - 31 mEq/L [facility] Anion gap 16@ANIO (H) 7 - 15 mEq/L [facility] BUN 26 (H) 8 - 23 mg/dL [facility] Creatinine 0.90 0.50 - 0.90 [facility] mg/dL HOSPITAL Glucose 111 (H) 65 - 99 mg/dL [facility] Calcium 10.5 (H) 8.8 - 10.2 [facility] mg/dL [facility] Protein 7.6 6.3 - 8.3 [facility] Comment: g/dL HOSPITAL - 4.6-7.0 g/dL 1 week 4.4-7.6 g/dL 7 months-1year 5.1-7.3 g/dL 1-2 years 5.6-7.5 g/dL >3 years 6.0-8.0 g/dL 18-150 6.3-8.3 g/dL Albumin 4.0 3.5 - 5.0 [facility] g/dL HOSPITAL A/G ratio 1.1 0.7 - 3.8 [facility] Alkaline phosphatase 82 35 - 104 U/L [facility] AST 20 10 - 35 U/L [facility] ALT 17 5 - 50 U/L [facility] Total bilirubin 0.3 0.0 - 1.2 [facility] mg/dL HOSPITAL Specimen Blood Performing Organization Address City/[facility]/Zipcode Phone Number [facility] DEPARTMENT OF PATHOLOGY AND [address], [place] [address] [place] [address] CT Post Myelogram Thoracic (09/06/2019 12:33 PM [...] ensure appropriate moderation of exposure. Automated dose vendor management specialist nology is applied to adjust radiation exposure [...] right C6 radiculopathy is recommended. [id number] Procedure Note Interface, Radiology Results [facility] - 09/06/2019 12:44 PM CDT EXAMINATION: [...] right C6 radiculopathy is recommended. [id number] Performing Organization Address City/State/Zipcode Phone Number [facility] [address] [place] [address] CT Post Myelogram Lumbar (09/06/2019 12:32 PM [...] ensure appropriate moderation of exposure. Automated dose vendor management specialist nology is applied to adjust radiation exposure [...] the right L3 nerve root. [id number] Procedure Note Hm Interface, Radiology Results - [...] the right L3 nerve root. [id number] Performing Organization Address City/State/Zipcode Phone Number [facility] [address] [place] [address] IR Myelogram 2+Reg Incl Inj W S&I [...] of the left C6 root sleeve . [id number] Procedure Note Interface, Radiology Results Incoming - [...] of the left C6 root sleeve . [id number] Performing Organization Address City/State/Zipcode Phone Number [facility] [address] [place] [address] XR Lumbar Spine Complete W Flex and [...] changes without acute abnor mality. [id number] Dictated and approved by radiology resid ent/fellow: Cari Thomson M.D. I, Marilyn Charles MD, personally reviewed the images and resident's/fellow's findings and agree with the final report. Procedure Note [facility], Radiology Results Incoming - 08/14/2019 11:37 AM [...] changes without acute abnor mality. [id number] Dictated and approved by radiology resid ent/fellow: Cari Thomson M.D. I, Marilyn Charles MD, personally review ed the images and resident's/fellow's findings and agree with the final report. Performing Organization Address City/State/Zipcode Phone Number [facility] [address] [place] [address] XR Spine Scoliosos 2-3 Views (08/14/2019 11:06 AM CDT) Specimen Narrative Performed At EXAMINATION: XR SPINE SCOLIOSIS 2-3 [facility]: M54.16 Radiculopathy lumbar region, [...] and s crew fixation and interbody graft. [id number] Procedure Note Interface, Radiology Results Incoming - [...] plate and screw fixation and interbody graft. [id number] Performing Organization Address City/State/Zipcode Phone Number [facility] [address] [place] [address] Us carotid duplex (06/13/2019 10:[address] JUSTICE) Specimen Narrative Performed At [facility] Carotid Tonya ry Ultrasound Report Pat.Name: HALEY PORTER Pat.ID: [id number] .Date: 06/13/2019 Refer.MD: IBIS TORRES MD Exam Time: 9:13:00 AM Study Type:C arotid Age: 8 1955,63Y Sex: FEMALE Sonogrphr: Cyn Montoya RVT Pat. Stat.:[facility] ol: SD, CPT - 4: 99073 Echo Shira nt ID:[id number] Order ID: [id number] Reason for Study:Carotid artery disease, Hx of [...] Radiology Results In - 2019 6:[address] JUSTICE [facility] Carotid Artery Ultras ound Report Pat.Name: HALEY PORTER Pat.I D: [id number] .Date: 06/13/2019 Refer .MD: IBIS TORRES MD Exam Time: 9:13:00 AM Study Type:Carotid Age: 8 1955,63Y Sex: FEMALE Sonogrphr: Cyn Montoya RVT Pat. Stat.:Outpatient Room: [facility] Vol: SD, CPT - 4: 47179 Echo Event ID:[id number] Order ID: [id number] Reason for Study:Carotid artery disease, Hx of [...] Organization Address City/State/Zipcode Phone Number [facility] [address] [place] [address] CTA Abdominal Aorta And Bilateral Iliofemoral Runoff W Wo Contrast (06/06/2019 5:[address] JUSTICE) Specimen Narrative Performed At EXAMINATION: CT ANGIOGRAM [...] runoff of the bilate ral lower extremities. [facility]-[id number] Procedure Note Hm Interface, Radiology Results Incoming - 06/06/2019 5:[address] JUSTICE EXAMINATION: CT ANGIOGRAM ABDOMINAL AORTA AND BILATERAL [...] runoff of the bilate ral lower extremities. [facility]-[id number] Performing Organization Address City/[facility]/Zipcode Phone Number [facility] [address] [place] [address] POC creatinine (06/06/2019 3:[address] JUSTICE) Pathologist [facility] POC creatinine 0.8 0.5 - 0.9 [facility] Comment: mg/dl HOSPITAL Meter ID: [id number] Curbing Stonecutter ID: Bayron Valencia Specimen Blood - Antecubital, left Performing Organization Address City/[facility]/Zipcode Phone Number [facility] DEPARTMENT OF PATHOLOGY AND [address] [place], [place] [address] GENOMIC MEDICINE [facility] [address] [place] [address] COPY RECEIVED FROM: (06/06/2019 11:[address] JUSTICE) Pathologist Sig nature Copy received from: [facility] Comment: [address] [facility] [address] [place] [address] Specimen Performing Organization Address City/[facility]/Zipcode Phone Number [facility] COPY(IES) SENT TO: (06/06/2019 11:[address] JUSTICE) Pathologist Sig nature Copies/mL [facility] Comment: [address] [facility] [address] [place] [address] Specimen Performing Organization Address City/[facility]/Zipcode Phone Number [facility] MRI Spine External Study (03/06/2019 3:[address] JUSTICE) Specimen Narrative Performed At This exam was not acquired at a Methodis t facility and has not been [facility] interpreted by a [facility] Provider. T he exam was imported into our imaging system. Performing Organization Address City/State/Zipcode Phone Number [facility] [address] [place] [address] after 11/15/2018 Insurance Payer Benefit Plan / Subscriber ID Effective Phone Address T ype Group Dates MEDICARE MEDICARE PART A xxxxxxxxxxx 2018-[facility] [place] Medicare AND B ent COMMERCIAL MISC MISC COMMERCIAL xxxxxxxxx 2009-[facility] Commercial ent [phone] [id number] (Work) Advance Directives For more information, please contact: [phone] Type Date Recorded Patient Telecom Engineer Explanati on Advance Directives, Living Will and Medical Power of Block Breaker Operator
--- OUTSIDE RECORDS SUMMARY | 2019-11-16 11:00 | XMS REPORT | Clinical Summary ---
:1955 Author Organization [facility] Address [address] [place] [address] Care Team Providers Name Role Phone Nayla Alonzo MD Primary Care Provider Allergies Not on File Medications Not on file Active Problems Not on file Encounters Date Type Specialty Care Team Description 10/30/2019 Telephone Critical Care Medicine Jan Fountain MD 10/30/2019 Hospital Encounter after 11/15/2018 Social History Tobacco Use Types Packs/Day Years Used Date Never Assessed Sex Assigned at Date Recorded Not on file Job Start Date Occupation Industry Not on file Not on file Not on file Travel History Travel Start Travel End No recent travel history available. Last Filed Vital Signs Not on file Plan of Treatment Not on file Results Not on fileafter 11/15/2018 Insurance Payer Benefit Plan / Group Subscriber ID Type Phone A ddress [employer] - [employer] CARE C[employer] HMO/POS/OPEN ACCESS xxxxxxxxx HMO/POS [phone] (Work)
[2019-11-16 11:03] LABS: Absolute Lymphocytes (CBC) 2.2 K/uL (0.7-4.9); Basophils % 0.9 % (0-1.3); RBC Red Blood Cell Count 4.07 M/uL (3.86-4.86)
--- OUTSIDE RECORDS SUMMARY | 2019-11-16 11:04 | XMS REPORT | Continuity of Care Document ---
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 [address] [place] [address] Unspecified 05/09/2017 abdominal pain 018 Radha and ABDOMINAL PAIN/LOSS Active [facility] 018 Agus SURGERY THIS Active [facility] MORNING, PROBLEMS 013 Ut dical BREATHING Center POST FOLLOW UP Active [address] BDDC-WEIGHT LOSS Active [address] 783.21 - ABNORMAL Active OPID LOSS O 576.0 - 013 Radha and POSTCHO ABD PAIN Active [address] Acid reflux Resolved Problem 01/25/2013 [facility] HTN - Hypertension Resolved Problem 01/25/2013 [facility] Gastroesophageal Resolved Problem 11/02/2019 Me elizabeth reflux disease Neuro , (disorder) 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 Lumbosacral plexus Resolved Problem 11/02/2019 [facility] neuropathy Neuro, (disorder) [facility] Menopausal syndrome Active Problem 11/02/2019 [facility] (disorder) [facility] Meralgia Active Problem 11/02/2019 [facility] paresthetica Neuro,M H (disorder) [facility] Pituitary adenoma Active Problem 11/02/2019 Data M sandeep (disorder) migrated Neuro, from [facility] on 12/25/14. Fabian Barrera [place] Ulcer of lower Active Problem 11/02/2019 [facility] her extremity Neuro, (disorder) [facility] ABDMNAL PAIN UNSPCF Active [facility] Medications Medication Details Route Status Patient Ordering Order Source Instructions Provider Date remove patch Notes: Remove No Longer [place] patch 12 hours Active 2019 Medical after Center application each day. edwina, FDC Notes: (Same Inactive [place] as: [place]) [address] [place] [address] Center tramadol Notes: Not to Inactive [place] hydrochloride exceed 2020 Medical 50 MG Oral 400mg/day. Center Tablet (Same As: Ultram) Lidocaine 1 patch, TOP, Active [place] Hydrochloride Daily, Remove 2020 Medi ion 0.05 MG/MG after 12 hours, Cente r Transdermal # 30 patch, 0 Patch Refill(s), [Lidoderm] [id number], 167.64, cm, 10/31/19 2:23:00 CDT, Height, 79.091, kg, 10/31/19 2:23:00 CDT, Weight {74 (apixaban 5 5 mg = 1 tab, Active [place] MG Oral Tablet PO, BID, # 60 2019 Med ical [Eliquis]) } tab, 0 Center Pack [Eliquis Refill(s), 30-Day Starter Pharmacy: Pack] [facility]/pharmacy #[id number], 167.64, cm, 10/31/19 2:23:00 CDT, Height, [...] MG Oral Tablet POLYETHYLENE Notes: Dissolve Inactive [facility] GLYCOL 3350 in 8 oz of [address] [place] [address] water or juice. Center (Same as: Miralax) Aspirin 81 MG Notes: Do not Inactive [facility] Enteric Coated crush or chew. [facility] Me dical Tablet (Same As: Center Ecotrin) Prilosec 20 mg, Route: Inactive [place] PO, Daily, [facility] Medical Dosing Weight Center 83.636, kg, Start date: 10/31/19 9:00:00 CDT, Duration: 30 day, Stop date: 11/29/19 9:00:00 CDT pregabalin Notes: (Same Inactive Monster[place] s as: Lyrica) [address] [place] [address] quinapril 20 mg, 1 tab, Inactive Monstera s Route: PO, Drug [facility] Medical form: TAB, Center Daily, Dosing Weight 83.636, kg, Start date: 10/31/19 9:00:00 CDT, Duration: 30 day, Stop date: 11/29/19 9:00:00 CDT Protonix Notes: Tablet Inactive [facility] should not be [address] [place] [address] chewed or [place] crushed. (Same as: Protonix) Acetaminophen Notes: (Same Inactive [place] 325 MG / as: Icard [address] [place] [address] Hydrocodone 325/5) Do not Cente r Bitartrate 5 MG exceed 4gm/day Oral Tablet of [Icard 5/325] acetaminophen. Hydromorphone Notes: Same as Inactive [facility] Dilaudid [address] [place] [address] Heparin 80 Route: IVP, Inactive [facility] unit/kg Bolus PRN, 5,400 2019 [facility] (Heparin Dosing unit, 5.4 mL, Ce nter Weight) Drug form: INJ, PRN, Heparin Protocol, Start date: 10/31/19 2:25:00 CDT Stop date: 11/30/19 2:24:00 CDT, 30 day, 0 Heparin 40 Route: IVP, Inactive [place] unit/kg Bolus PRN, 2,[address] [place] [address] (Heparin Dosing unit, 2.7 mL, Ce nter Weight) Drug form: INJ, PRN, Heparin Protocol, Start date: 10/31/19 2:25:00 CDT Stop date: 11/30/19 2:24:00 CDT, 30 day, 0 heparin Notes: Total Inactive [facility] additive 25,000 Concentration = 2019 Medical unit [18 50 unit/ ml Center unit/kg/hr] + Total volume = Premix Diluent 500 ml Send [facility] Sodium Chloride Request 2 hours 0.45% 500 mL prior to next bag Acetaminophen Notes: Do not Inactive [facility] 325 MG / exceed 4gm/day 2019 Medical Hydrocodone of [place] Bitartrate 10 acetaminophen. MG Oral Tablet (Same as: Icard 325/10) clorazepate Notes: (Same Inactive [place] as As: Tranxene-T) [address] [place] [address] tizanidine Notes: (Same [place]active [place] As: Zanaflex) [address] [place] [address] pregabalin 100 100 mg = 1 cap, Active H [place] mg oral capsule PO, QID, # 90 2019 [address] cap, 0 Center Refill(s) tizanidine 4 mg 4 mg = 1 tab, Inactive [facility] oral tablet PO, Q8H, PRN 2019 [facility] for muscle [place] spasms, # 90 tab, 0 Refill(s) clorazepate 7.5 7.5 mg = 1 tab, Inactive [facility] mg oral tablet PO, TID, PRN 2019 [facility] ion Anxiety, 0 Center Refill(s) linaclotide 145 microgram = Active [facility] exas 0.145 MG Oral 1 cap, PO, 2019 Medical Capsule Daily, 30 Center [Linzess] minutes prior to the first meal of the day, # 30 cap, 0 Refill(s) Dextrose 50% 12.5 gm, 25 mL, Inactive [facility] Syringe (D50W) Route: IVP, 2019 Medic al Drug Form: INJ, Center Dosing Weight 83.636, kg, PRN, PRN Blood Glucose Results, Start date: 10/31/19 2:06:00 CDT, Duration: 30 day, Stop date: 11/30/19 2:05:00 CDT, 0 Glucagon 1 mg, Route: Inactive [facility] IM, Drug form: [facility] Medical PDR/INJ, PRN, Center Dosing Weight 83.636, kg, PRN Blood Glucose Results, Start date: 10/31/19 2:06:00 CDT, Duration: 30 day, Stop date: 11/30/19 2:05:00 CDT, 0 Ondansetron Notes: (Same Inactive [place] as as: Zofran) 2019 Medical MEDICATION Center WASTE Product Size: 4 mg Product Wasted: ___ mg Melatonin Notes: (Same Inactive [place] as: Melatonin) 2019 [facility] Aspirin 81 MG 81 mg = 1 tab, Active 05/05/ [facility] Coated PO, Daily, # 90 2019 N euro Tablet tab, 3 Refill(s) cefdinir 300 MG 300 mg = 1 cap, Active 05/05/ cher Oral Capsule PO, BID, # 20 2019 Neuro cap, 0 Refill(s) Estrogens, 0.3 mg = 1 tab, Active 12/22/ ch er Conjugated PO, Daily, # 30 2019 Neuro (FDC) 0.3 MG tab, 0 Oral Tablet Refill(s) [...] 180 tab, 3 Refill(s), Pharmacy: [facility]/pharmacy #[id number] Acetaminophen 1 tab, PO, TID, Active 300 MG / PRN Pain, X 4 2017 [place] Codeine day, # 12 tab, Phosphate 30 MG 0 Refill(s) Oral Tablet [Tylenol with Codeine #3] acetaminophen-c Notes: Do not Inactive 05/07/ M H odeine #3 exceed 4gm/day 2018 [place] of acetaminophen. (Same as: Tylenol with Codeine # 3) Ondansetron Notes: (Same Inactive as: Evita) 2017 [place] MEDICATION WASTE Product Size: 4 mg Product Wasted: ___ mg Sodium Chloride 1,000 mL, 1000 Inactive 0.9% (Bolus) IV ml/hr, Infuse 2017 [facility] Over: 1 hr, Route: IV, 1,000, Drug form: INJ, ONCE, Priority: STAT, Dosing Weight 61.364 kg, Start date: 05/06/17 12:46:00 CRYSTALIZER TENDER, Stop date: 05/06/17 12:46:00 CRYSTALIZER TENDER Saline Flush Notes: (Same Inactive 0.9% as: BD 2017 [place] Posiflush) hyoscyamine 0.125 mg, 1 PO No Longer [facility] Monster as tab, Route: PO, Active 2012 [...] 50 mg, 1 tab, PO No Longer [facility] [place] oral tablet PO, Q8H, PRN, Active 2012 Medica l 10 tab, as Center needed for pain, Substitution Allowed, TAB Icard 10/325 1 tab, Route: PO No Longer [place] oral tablet PO, Drug Form: Active 2012 Medic al TAB, Dosing Center Weight 65, kg, Q6H, PRN Pain, Start date: 01/22/13 21:22:00, Duration: 30 day, Stop date: 02/21/13 21:21:00 Omnipaque 100 mL, Route: IVP No Longer [facility] [place] 350mg/ml IVP, Drug Form: Active 2012 Medical SOLN, Dosing Center Weight 65, kg, ONCALL, STAT, Start date: 01/22/13 13:12:00, Duration: 1 doses or times, Dose = 2.2ml/kg, Max dose = 100ml -- "To be infused by Radiology Staff ONLY"Dose = 2.2ml/kg, Max dose = 100ml -- "To be infused by Radiology Staff ONLY" Dilaudid 0.5 mg, 0.25 IV No Longer [facility] mL, Route: IV, 2012 Medical Drug form: INJ, Center Q4H, Dosing Weight 65, kg, PRN as needed for pain, Start date: 01/22/13 12:17:00, Duration: 30 day, Stop date: 02/21/13 12:16:00 Icard 10/325 1 tab, Route: PO No Longer [facility] oral tablet PO, Drug Form: 2012 Medic al TAB, Dosing Center Weight 65, kg, Q4H, PRN Pain, NOW, Start date: 01/22/13 2:14:00, Duration: 30 day, Stop date: 02/21/13 2:13:00 Remeron 15 mg, 1 tab, PO No Longer [facility] Route: PO, Drug Active 2012 Medical form: TAB, Center Bedtime, Dosing Weight 65, kg, Start date: 01/21/13 21:00:00, Duration: 30 day, Stop date: 02/19/13 21:00:00 hyoscyamine 0.125 mg, 1 PO No Longer [facility] Monster as tab, Route: PO, 2012 Medical Drug form: TAB, Center TID, Dosing Weight 65, kg, Start date: 01/21/13 17:00:00, Duration: 30 day, Stop date: 02/20/13 13:00:00 D5W 1/2NS 1,000 1,000 mL, Rate: IV No Longer [facility] mL 75 ml/hr, Active 2012 Medical Infuse over: Center 13.3 hr, Route: IV, Dosing Weight 65 kg, Total Volume: 1,000, Start date: 01/21/13 15:44:00, Duration: 30 day, Stop date: 02/20/13 15:43:00 Dilaudid 0.5 mg, 0.25 IV No Longer [facility] mL, Route: IV, Active 2012 Medical Drug form: INJ, Center ONCE, Dosing Weight 65, kg, Start date: 01/21/13 14:32:00, Stop date: 01/21/13 14:32:00 Dilaudid 0.5 mg, 0.25 IV No Longer [facility] mL, Route: IV, Active 2012 Medical Drug form: INJ, Center Q8H, Dosing Weight 65, kg, PRN as needed for pain, Start date: 01/21/13 9:39:00, Duration: 30 day, Stop date: 02/20/13 9:38:00 senna 8.6 mg 8.6 mg, 1 tab, PO No Longer [facility] oral tablet Route: PO, Drug Active 2012 [facility] ion Form: TAB, Center Dosing Weight 65, kg, BID, PRN as needed for constipation, Start date: 01/21/13 9:39:00, Duration: 30 day, Stop date: 02/20/13 9:38:00 MiraLax 17 gm, 1 pkt, PO No Longer [facility] Route: PO, Drug Active 2012 Medical form: PWDR, Center Daily, Dosing Weight 65, kg, PRN Constipation, Start date: 01/21/13 9:38:00, Duration: 30 day, Stop date: 02/20/13 9:37:00 tramadol 50 mg 50 mg, 1 tab, PO No Longer [facility] oral tablet Route: PO, Drug Active 2012 Medi ion form: TAB, Q8H, Center Dosing Weight 65, kg, PRN as needed for pain, Start date: 01/21/13 9:38:00, Duration: 30 day, Stop date: 02/20/13 9:37:00 Protonix 40 mg, 1 tab, PO No Longer [facility] Route: PO, Drug Active 2012 Medical form: ECTAB, Center Daily, Dosing Weight 65, kg, Start date: 01/21/13 9:00:00, Duration: 30 day, Stop date: 02/19/13 9:00:00 Dilaudid 0.5 mg, 0.25 IV [facility], [facility]: IV, Active 2012 Medical Drug form: INJ, Center ONCE, Dosing Weight 65, kg, PRN as needed for pain, Start date: 01/20/13 22:21:00 Zosyn 3.375 gm, IVPB No Longer [facility] Route: IVPB, Active 2012 Medical Drug form: Center PDR/INJ, ABXQ8H, Start date: 01/20/13 11:00:00, Stop date: 02/19/13 2:00:00 enoxaparin 40 mg, 0.4 mL, SUB-Q No Longer [facility] [place] Route: SUB-Q, Active 2012 Medical Drug form: INJ, Center [id number], Dosing Weight 65, kg, Start date: 01/20/13 6:00:00, Duration: 30 day, Stop date: 02/18/13 6:00:00 NS + KCL 1,000 mL, Rate: IV No Longer [facility] [place] 20mEq/L 1000ml 125 ml/hr, Active 2012 Medica l (Premix) 1,000 Infuse over: 8 Ce nter mL hr, Route: IV, Dosing Weight 65 kg, Total Volume: 1,000, Start date: 01/20/13 5:25:00, Duration: 30 day, Stop date: 02/19/13 5:24:00 Zosyn 3.375 gm, IVPB No Longer [facility] Route: IVPB, Active 2012 Medical Drug form: INJ, Center Q6H, Dosing Weight 65, kg, Priority: STAT, Start date: 01/20/13 5:24:00, Duration: 30 day, Stop date: 02/19/13 0:00:00 Dilaudid 0.5 mg, 0.25 IV No Longer [facility] mL, Route: IV, Active 2012 Medical Drug form: INJ, Center Q4H, Dosing Weight 65, kg, PRN as needed for pain, Start date: 01/20/13 5:23:00, Duration: 30 day, Stop date: 02/19/13 5:22:00 docusate Substitution Active [place] Allowed 2012 [facility] Center ondansetron 4 mg, 2 mL, IVP No Longer [facility] [place] Route: IVP, Active 2012 Medical [...] Zosyn 3.375 gm, IVPB No Longer Saj[facility] [place] Route: IVPB, Active 2012 Medical Drug form: [...] IV 1,000 mL, Rate: IV No Longer [facility] 1000 mL 1,000 ml/hr, Active 2012 Medical [...] Substitution Active [place] Allowed, 2012 [facility] clorazepate Substitution [place] Allowed 2012 [facility] Symax Duotab Substitution Active Monster as Allowed 2012 [facility] Prilosec Substitution Active [place] Allowed 2012 [facility] Premarin Substitution Active [place] Allowed 2012 [facility] Center Allergies, Adverse Reactions, Alerts Substance Category Reaction Severity Reaction Status Date Comments S ource type Reported diazepam<dove Assertion Drug Active Data [facility] p>1</sup> allergy 2 migrated Medic al from [facility] on 12/24/14. Originally documented as VALIUM. midazolam<s Assertion Drug Active Data [facility] up>2</sup> allergy 2 migrated Medi ion from [facility] on 12/24/14. Originally documented as VERSED. morphine<dove Assertion Drug Active Data [facility] p>3</sup> allergy 2 migrated Medic al from [facility] on 12/24/14. Originally documented as MORPHINE. Valium Assertion Drug Active [place] [facility] allergy Medical Center morphine drug Allergy [place] allergy Medical [facility] cortisone drug Allergy Active [place] as allergy Medical [place] Immunizations No Data Provided for This Section Results Order Name Results Value Reference Date Interpretation Comments Chioma rce Range HEMATOLOGY PT 14.3 12.0 - 10/30 [facility] 14.7 /2019 [facility] HEMATOLOGY INR 1.11 0.85 - 10/30 [facility] 1.17 [facility] HEMATOLOGY PTT 94.8 22.9 - 10/30 [facility] 35.8 /2019 [facility] HEMATOLOGY PT 14.4 12.0 - 10/30 [facility] 14.7 /2019 [facility] HEMATOLOGY INR 1.11 0.85 - 10/30 [facility] 1.17 [facility] HEMATOLOGY PTT 86.8 22.9 - 10/30 [facility] 35.8 /2019 [facility] BLOOD BANK ABO/Rh O POS 10/30 [facility] RESULTS /2019 [facility] BLOOD BANK Antibody Negative 10/30 [facility] RESULTS Scrn (10/31/19 2:51 AM) /2019 [facility] CHEM PANEL Glucose Lvl 91 70 - 99 10/[address] CHEM PANEL BUN 13 7 - 22 10/[address] CHEM PANEL Creatinine 0.70 0.50 - 10/30 [facility] Lvl 1.40 [facility] CHEM PANEL Sodium Lvl 142 135 - 145 10/[address] CHEM PANEL Potassium 4.0 3.5 - 5.1 10/30 [facility] [place] [facility] /[address] [place] [address] CHEM PANEL Chloride Lvl 108 95 - 109 10/[address] CHEM PANEL CO2 24 24 - 32 10/[address] CHEM PANEL Calcium Lvl 8.5 8.5 - 10.5 10/30 [facility] /[address] [place] [address] CHEM PANEL Total 6.6 6.4 - 8.4 10/30 [facility] Protein [address] CHEM PANEL Albumin Lvl 3.0 3.5 - 5.0 10/[address] CHEM PANEL ALT 16 0 - 65 10/[address] CHEM PANEL AST 20 0 - 37 10/[address] CHEM PANEL Alk Phos 102 39 - 136 10/[address] CHEM PANEL Bili Total 0.4 0.2 - 1.3 10/[address] CHEM PANEL AGAP 14.0 10.0 - 10/30 [place] 20.0 /2019 [facility] CHEM PANEL B/C Ratio 19 6 - 25 10/[address] CHEM PANEL Globulin 3.6 2.7 - 4.2 10/[address] CHEM PANEL A/G Ratio 0.8 0.7 - 1.6 10/[address] CHEM PANEL eGFR 91 10/30 Result [facility] Comment: The Medical eGFR is Center calculated [...] HEMATOLOGY WBC 8.0 3.7 - 10.4 10/[address] HEMATOLOGY RBC 3.97 4.20 - 10/30 [place] 5.40 [facility] HEMATOLOGY Hgb 12.5 12.0 - 10/30 [facility] 16.0 [facility] HEMATOLOGY Hct 37.6 36.0 - 10/30 [facility] 48.0 [facility] HEMATOLOGY MCV 94.8 80.0 - 10/30 [facility] 98.0 [facility] HEMATOLOGY MCH 31.4 27.0 - 10/30 [facility] 31.0 [facility] HEMATOLOGY MCHC 33.1 32.0 - 10/30 [place] 36.0 [facility] HEMATOLOGY RDW 13.0 11.5 - 10/30 [facility] 14.5 [facility] HEMATOLOGY Platelet 229 133 - 450 10/[address] HEMATOLOGY MPV 8.8 7.4 - 10.4 10/[address] HEMATOLOGY PT 14.2 12.0 - 10/30 [facility] 14.7 /2019 [facility] HEMATOLOGY INR 1.10 0.85 - 10/30 [place] 1.17 [facility] HEMATOLOGY PTT 64.7 22.9 - 10/30 [facility] 35.8 /2020 [facility] HEMATOLOGY Segs 63.4 45.0 - 10/30 [facility] 75.0 /2020 Medical Center HEMATOLOGY Lymphocytes 26.0 20.0 - 10/30 [facility] 40.0 /2020 [facility] HEMATOLOGY Monocytes 8.5 2.0 - 12.0 10/30 [facility]2020 [facility] HEMATOLOGY Eosinophils 1.6 0.0 - 4.0 10/30 [place] /2020 [facility] HEMATOLOGY Basophils 0.5 0.0 - 1.0 10/30 [facility]2020 [facility] HEMATOLOGY Neutrophils 5.1 1.5 - 8.1 10/30 [place] # /2020 [facility] HEMATOLOGY Lymphocytes 2.1 1.0 - 5.5 10/30 [facility] # /2020 [facility] HEMATOLOGY Monocytes # 0.7 0.0 - 0.8 10/30 [facility] HEMATOLOGY Eosinophils 0.1 0.0 - 0.5 10/30 [facility] # /2020 [facility] HEMATOLOGY Sed Rate 2 < OR = 30 03/15 Result June mm/hr Comment: Neuro
Lab test performed by:
[facility]
[address]
[place] [address]
Bryan Carpenter HEMATOLOGY SS-A (Ro) Ab <1.0 NEG <1.0 NEG 03/15 [facility]: [facility]
Lab test performed by:
[facility]
[address]
[place] [address]
Dr. Bryan Carpenter HEMATOLOGY SS-B (La) Ab [...] Immunity Screen, ACIF.

Lab test performed by:
[facility]
[address]
[place] [address]
Dr. Bryan Carpenter HEMATOLOGY EBV VCA IgM 62.60 03/15 Result [facility] Comment: Neuro U/mL Interpretatio n
---- -
<36.00 Negative
36.00-43.99 Equivocal<br/ > >43.99 Positive

Lab test performed by:
[facility]
[address]
[place] [address]
Dr. Bryan Carpenter HEMATOLOGY ANGIOTENSIN 9 9 - 67 03/15 Result [facility] CONVERTING Comment: Neuro ENZYME
Lab test performed by:
[facility]
[address]
[place] [address]
Dr. Bryan Carpenter HEMATOLOGY Varicella 0.69 03/15 [...]
<br/& gt;FASTING: YES

Lab test performed by:
[facility]
[address]
[place] [address]
[address] Bryan Carpenter URINE AND UA Blood Negative Negative 05/06 STOOL (05/06/17 3:21 PM) [place] URINE AND UA Nitrite Negative Negative 05/06 [facility] (05/06/17 3:21 PM) [place] URINE AND UA Bili Negative Negative 05/06 STOOL *NA* /2017 [place] (05/06/17 3:21 PM) URINE AND UA Leuk Est Negative Negative 05/06 [facility] (05/06/17 3:21 PM) [place] URINE AND UA Sq Epi Few /LPF Few /LPF 05/06 STOOL [place] URINE AND UA Protein 30 mg/dL Negative 05/06 STOOL mg/dL [place] URINE AND UA Ketones 20 mg/dL Negative 05/06 STOOL mg/dL [place] URINE AND UA Glucose Negative Negative 05/06 STOOL mg/dL mg/dL [place] URINE AND UA <=1.0 0.1 - 1.0 05/06 STOOL Urobilinogen mg/dL [place] URINE AND UA RBC 1 0 - 2 05/06 STOOL [place] URINE AND UA Mucus Few /LPF None Seen 05/06 MH STOOL /LPF [place] URINE AND UA WBC 2 0 - 5 05/06 STOOL [place] URINE AND UA Color Yellow Yellow 05/06 STOOL *NA* /2017 [place] (05/06/17 3:21 PM) URINE AND UA Spec Grav 1.019 <=1.030 05/06 STOOL [place] URINE AND UA pH 5.0 5.0 - 8.0 05/06 STOOL [place] URINE AND UA Turbidity Slight Clear 05/06 STOOL *ABN* /2017 [place] (05/06/17 3:21 PM) CHEM PANEL Lipase Lvl 166 73 - 393 05/06 [place] CHEM PANEL Amylase Lvl 42 25 - 115 05/06 [place] ELECTROLYTE Chloride Lvl 100 95 - 109 05/06 S [place] ELECTROLYTE Sodium Lvl 139 135 - 145 05/06 S [place] ELECTROLYTE Potassium 4.0 3.5 - 5.1 05/06 S Lvl [place] ELECTROLYTE eGFR 41 05/06 MH Comment: The [place] eGFR is calculated using the CKD-EPI formula. [...] Total 0.7 0.2 - 1.3 05/06 S [place] ELECTROLYTE Alk Phos 82 39 - 136 05/06 S [place] ELECTROLYTE A/G Ratio 1.0 0.7 - 1.6 05/06 S [place] ELECTROLYTE ALT 19 0 - 65 05/06 S [place] ELECTROLYTE AST 15 0 - 37 / MH S [place] ELECTROLYTE Globulin 4.1 2.7 - 4.2 01/ MH S /2017 [place] ELECTROLYTE Albumin Lvl 4.3 3.5 - 5.0 05/06 MH S [place] ELECTROLYTE B/C Ratio 18 6 - 25 01 MH S [place] ELECTROLYTE Calcium Lvl 9.4 8.5 - 10.5 01 MH S [place] ELECTROLYTE Total 8.4 6.4 - 8.4 05/06 MH S [place] ELECTROLYTE CO2 27 24 - 32 05/06 MH S [place] ELECTROLYTE AGAP 16.0 10.0 - 05/06 MH S 20.0 [place] ELECTROLYTE Creatinine 1.36 0.50 - 05/06 MH S Lvl 1.40 [place] ELECTROLYTE BUN 24 7 - 22 05/06 MH S [place] ELECTROLYTE Glucose Lvl 77 70 - 99 05/06 MH S [place] HEMATOLOGY Lymphocytes 2.3 1.0 - 5.5 05/06 MH # /2017 [place] HEMATOLOGY Monocytes # 0.8 0.0 - 0.8 05/06 [place] HEMATOLOGY Eosinophils 0.2 0.0 - 4.0 05/06 MH [place] HEMATOLOGY Basophils 0.4 0.0 - 1.0 05/06 [place] HEMATOLOGY Segs-Bands # 6.4 1.5 - 8.1 05/06 [place] HEMATOLOGY Lymphocytes 24.4 20.0 - 05/06 MH 40.0 [place] HEMATOLOGY Monocytes 8.1 2.0 - 12.0 05/06 [place] HEMATOLOGY Segs 66.9 45.0 - 05/06 MH 75.0 [place] HEMATOLOGY MPV 8.4 7.4 - 10.4 05/06 [place] HEMATOLOGY Platelet 287 133 - 450 05/06 [place] HEMATOLOGY MCH 32.4 27.0 - 05/06 MH 31.0 [place] HEMATOLOGY RDW 12.5 11.5 - 05/06 MH 14.5 [place] HEMATOLOGY MCV 91.5 80.0 - 05/06 MH 98.0 [place] HEMATOLOGY MCHC 35.4 32.0 - 05/06 MH 36.0 [place] HEMATOLOGY Hct 42.5 36.0 - 01 48.0 /2017 [place] HEMATOLOGY WBC 9.6 3.7 - 10.4 05/06 [place] HEMATOLOGY Hgb 15.1 12.0 - 05/06 16.0 [place] HEMATOLOGY RBC 4.65 4.20 - 05/06 5.40 /2017 [place] CHEMISTRY eGFR 95 01/23 NA <sup>1</sup>R esult [...] CHEMISTRY AGAP 12.9 10.0 - 01/23 Normal [facility] 20.0 [facility] CHEMISTRY Calcium Lvl 8.5 8.5 - 10.5 01/23 Normal a [facility] CHEMISTRY Glucose Lvl 75 70 - 99 01/23 Normal <sup>4</sup>I T nterpretive Medical Data: Adult Center reference range values reflect the clinical guidelines
of the Citizen [place] [employer]. CHEMISTRY CO2 28 24 - 32 01/23 Normal [facility] CHEMISTRY Chloride Lvl 106 95 - 109 01/23 Normal [facility] CHEMISTRY Potassium 3.9 3.5 - 5.1 01/23 Normal [facility] CHEMISTRY BUN 5 7 - 22 01/23 LOW [facility] CHEMISTRY Creatinine 0.7 0.5 - 1.4 01/23 Normal [facility] CHEMISTRY Sodium Lvl 143 135 [...] 10.0 2.0 - 12.0 01/23 Normal [facility] [place] HEMATOLOGY Monocytes # 0.6 0.0 - 0.8 [...] Lvl 109 73 - 393 01/22 Normal [facility] CHEMISTRY Globulin 3.1 2.0 - 4.0 01/22 Normal [facility] CHEMISTRY A/G Ratio 1.0 0.7 - 1.6 01/22 [facility] CHEMISTRY B/C Ratio 4 6 - 25 01/22 [facility] CHEMISTRY AGAP 11.9 10.0 - 01/22 [facility] 20.0 [facility] CHEMISTRY eGFR 95 01/22 NA <sup>2</sup>R esult [...] CHEMISTRY AST 16 0 - 37 01/22 [facility] CHEMISTRY CO2 26 24 - 32 01/22 [facility] CHEMISTRY Calcium Lvl 8.0 8.5 - 10.5 01/22 [facility] [place] [facility] CHEMISTRY Total 6.1 6.4 - 8.4 01/22 [facility] Protein [facility] CHEMISTRY Bili Total 0.5 0.2 - 1.3 01/22 [facility] CHEMISTRY Creatinine 0.7 0.5 - 1.4 01/22 [facility] CHEMISTRY Sodium Lvl 140 135 - 145 01/22 [facility] CHEMISTRY Chloride Lvl 106 95 - 109 01/22 [facility] CHEMISTRY Potassium 3.9 3.5 - 5.1 01/22 [facility] CHEMISTRY ALT 20 0 - 65 01/22 [facility] CHEMISTRY BUN 3 7 - 22 01/22 [facility] CHEMISTRY Glucose Lvl 115 70 - 99 01/22 [place] <sup>5</sup>I MH T ex nterpretive Medical Data: Adult Center reference range values reflect the clinical guidelines
of the Citizen [place] [employer]. CHEMISTRY Alk Phos 74 39 - 136 01/22 Normal [facility] CHEMISTRY Albumin Lvl 3.0 3.5 - 5.0 01/22 LOW [facility] HEMATOLOGY Eosinophils 0.1 0.0 - 0.5 01/[place] HEMATOLOGY Basophils 0.3 0.0 - 1.0 01/22 Normal [facility] HEMATOLOGY Segs-Bands # 2.8 1.5 - 8.1 01/22 Normal [place] [facility] HEMATOLOGY Lymphocytes 2.0 1.0 - 5.5 01/[place] /[place] [facility] HEMATOLOGY Monocytes # 0.6 0.0 - 0.8 01/22 [place] [facility] HEMATOLOGY Lymphocytes 35.5 20.0 - 01/22 Normal [place] 40.0 [facility] HEMATOLOGY Monocytes 11.0 2.0 - 12.0 01/22 Normal [facility] HEMATOLOGY Eosinophils 2.1 0.0 - 4.0 01/22 Normal a s [facility] HEMATOLOGY Segs 51.1 45.0 - 01/22 Normal [place] 75.0 /2012 [facility] Center HEMATOLOGY Sed Rate 15 0 - 20 01/22 Normal [facility] HEMATOLOGY MCHC 34.6 32.0 - 01/22 Normal [place] 36.0 /2012 Medical Center HEMATOLOGY MCH 32.8 27.0 - 01/22 HI [place] 31.0 /2012 Medical [facility] HEMATOLOGY RDW 12.3 11.5 - 01/22 Normal [place] 14.5 /2012 Medical Center HEMATOLOGY MPV 8.2 7.4 - 10.4 01/22 Normal [facility] HEMATOLOGY Platelet 189 133 - 450 01/22 Normal [facility] HEMATOLOGY RBC 3.63 4.20 - 01/22 LOW [place] 5.40 /2012 Medical Center HEMATOLOGY WBC 5.5 3.7 - 10.4 01/22 Normal [facility] HEMATOLOGY Hgb 11.9 12.0 - 01/22 LOW [place] 16.0 /2012 Medical Center HEMATOLOGY Hct 34.5 36.0 - 09/22 LOW [facility] 48.0 [facility] HEMATOLOGY MCV 94.9 81.0 - 01/22 Normal [facility] 99.0 [facility] TUMOR CA 19-9 7.0 0.0 - 35.0 01/22 Normal [facility] CHEMISTRY Lactic Acid 0.9 0.5 - 2.2 01/21 Normal [facility] CHEMISTRY eGFR 95 01/21 NA <sup>3</sup>R esult [...] Potassium 4.1 3.5 - 5.1 01/21 Normal [facility] CHEMISTRY Chloride Lvl 107 95 - 109 01/21 [facility] CHEMISTRY Sodium Lvl 140 135 - 145 01/21 [facility] CHEMISTRY Glucose Lvl 102 70 - 99 01/21 [place] <sup>6</sup>I T ex nterpretive Medical Data: Adult Center reference range values reflect the clinical guidelines
of the Citizen [place] [employer]. CHEMISTRY BUN 7 7 - 22 01/21 Normal [facility] CHEMISTRY CO2 25 24 - 32 01/21 Normal [facility] CHEMISTRY Calcium Lvl 8.2 8.5 - 10.5 01/21 [place] [facility] CHEMISTRY Creatinine 0.7 0.5 - 1.4 01/21 Normal [facility] CHEMISTRY AGAP 12.1 10.0 - [...] Lvl 2.9 3.5 - 5.0 01/21 LOW [facility] CHEMISTRY AST 24 0 - 37 01/21 Normal [facility] CHEMISTRY Bili Total 0.7 0.2 - 1.3 01/21 Normal [facility] CHEMISTRY Total 5.7 6.4 - 8.4 01/21 LOW [facility] CHEMISTRY B/C Ratio 22 6 - 25 01/21 Normal [facility] CHEMISTRY A/G Ratio 1.0 0.7 - 1.6 01/21 Normal [facility] CHEMISTRY Globulin 2.8 2.0 - 4.0 01/21 Normal [facility] HEMATOLOGY Monocytes 8.6 2.0 - 12.0 01/21 Normal [facility] HEMATOLOGY Lymphocytes 23.8 20.0 - 01/21 [...] Medical Center URINALYSIS Micro? Performed 01/20 Normal [facility] (01/19/2013 23:30:05) Ut dical Center URINALYSIS UA WBC None Seen None Seen 01/20 Normal [facility] (01/19/2013 23:30:05) Ut dical Center URINALYSIS UA Sq Epi Few /LPF Few 01/20 Normal [facility] (01/19/2013 23:30:05) Ut dical Center URINALYSIS UA RBC None Seen 0 - 2 01/20 Normal [facility] (01/19/2013 23:30:05) Me dical Center URINALYSIS UA Blood Negative Negative 01/20 Normal [facility] (01/19/2013 23:30:05) Ut dical Center URINALYSIS UA 0.2 0.1 - 1.0 01/20 Normal [facility] Urobilinogen /2012 Medical Center URINALYSIS UA Bili Negative Negative 01/20 NA [place] *NA* /2012 Medical (01/19/2013 23:30:05) Ce nter URINALYSIS UA Nitrite Negative Negative 01/20 Normal [facility] (01/19/2013 23:30:05) Me dical Center URINALYSIS UA Leuk Est Negative Negative 01/20 Normal [facility] (01/19/2013 23:30:05) Ut dical Center URINALYSIS UA Glucose Negative mg/dL Negative 01/20 Normal [facility] (01/19/2013 23:30:05) Ut dical Center URINALYSIS UA Ketones Negative mg/dL Negative 01/20 NA *NA* Medical (01/19/2013 23:30:05) Ce nter URINALYSIS UA pH 8.0 5.0 - 8.0 01/20 Normal [facility] URINALYSIS UA Protein Negative mg/dL Negative 01/20 Normal [facility] (01/19/2013 23:30:05) Ut dical Center URINALYSIS UA Turbidity Clear Clear 01/20 Normal [facility] (01/19/2013 23:30:05) Ut dical Center URINALYSIS UA Spec Grav 1.015 <=1.030 01/20 Normal [facility] URINALYSIS UA Color Yellow Yellow 01/20 NA /2012 Medical (01/19/2013 23:30:05) Ce nter CHEMISTRY Lipase Lvl 345 73 - 393 01/20 Normal [facility] CHEMISTRY Total 7.3 6.4 - 8.4 01/20 Normal [facility] CHEMISTRY Bili Total 0.5 0.2 - 1.3 01/20 Normal [facility] CHEMISTRY Albumin Lvl 3.8 3.5 - 5.0 01/20 Normal [facility] CHEMISTRY ALT 30 0 - 65 01/20 Normal [facility] CHEMISTRY Alk Phos 81 39 - 136 01/20 Normal [facility] CHEMISTRY Bili Direct 0.1 0.0 - 0.3 01/20 Normal [facility] CHEMISTRY AST 23 0 - 37 01/20 Normal [facility] CHEMISTRY Globulin 3.5 2.0 - 4.0 01/20 Normal [facility] CHEMISTRY A/G Ratio 1.1 0.7 - 1.6 01/20 Normal [facility] CHEMISTRY Bili 0.4 0.0 - 1.0 01/20 Normal [facility] HEMATOLOGY Basophils # 0.1 0.0 - [...] pain since last admission in march/DLP:1306.16mGy-cm 05/06/2017 [facility] contrast only CT Comparison: CT abdomen pelvis [...] mild asymmetry in the renal size. SL: [id number] Abdomen/Pelvis CTA EXAM: CTA ABDOMEN. 01/22/2013 [facility] edical EXAM: CTA PELVIS. Center DATE: January [...] CT ABDOMEN AND PELVIS, W/O CONTRAST 01/02 [facility] contrast CT Center DATE: 01/20/2013 at 0314hours [...] CT ABDOMEN AND PELVIS, W/ CONTRAST, 01/19 [facility] contrast CT Center DATE: 01/20/2013 at 12 [...] . Bony pelvis and spine: No ac mohegan abnormality . L5-S1 disc degenerative change and [...] Chest 1view EXAM: CHEST 1 VIEW 01/19/2013 [facility] DATE: January 19, 2013 at 2244 INDICATION: [...] Source Temperature Oral (F) 98.1 F 10/31/2019 [facility] Heart Rate 73 10/31/2019 [facility] Respitory Rate 20 10/31/2019 [facility] Systolic (mm Hg) 140 10/31/2019 [facility] dical [place] Diastolic (mm Hg) 84 10/31/2019 [facility] Temperature Oral (F) 98.2 F 10/31/2019 [facility] Heart Rate 80 10/31/2019 [facility] Respitory Rate 20 10/31/[address] [facility] ion Center Systolic (mm Hg) 160 10/31/2019 [facility] dical Center Diastolic (mm Hg) 90 [facility] [place] Temperature Oral (F) 97.9 F 10/31/2019 [facility] Heart Rate 66 10/31/2019 [facility] Respitory Rate 20 10/31/2019 [facility] Systolic (mm Hg) 137 10/31/2019 [facility] dical Center Diastolic (mm Hg) 70 10/31/2019 [facility] Height 167.64 cm 10/31/2019 [facility] Weight 79.091 10/31/2019 [facility] BMI Calculated 28.14 10/31/[address] [facility] ion Center Systolic (mm Hg) 118 [...] 12/21/2018 [facility] BMI Calculated 31.18 12/21/[facility] BMI Calculated 29.6 10/19/2018 [facility] Height 167.64 cm 10/19/2018 [facility] Weight 83.182 10/19/2018 [facility] Systolic (mm Hg) 106 10/19/2018 [facility] Diastolic (mm Hg) 70 10/19/2018 [facility] Respitory Rate 16 10/19/2018 [facility] Heart Rate 74 10/19/2018 [facility] BMI Calculated 27.5 09/08/2018 [facility] Weight 77.273 09/08/2018 [facility] Height 167.64 cm 09/08/2018 [facility] Respitory Rate 16 09/08/2018 [facility] Heart Rate 87 09/08/2018 [facility] Systolic (mm Hg) 105 09/08/2018 [facility] Diastolic (mm Hg) 68 09/08/2018 [facility] Heart Rate 72 05/07/2017 [facility] [place] Systolic (mm Hg) 115 05/07/2017 [facility] [place] Diastolic (mm Hg) 68 05/07/2017 [facility] [place] Respitory Rate 16 05/07/2017 [facility] [place] Temperature Oral (F) 98.0 F 05/07/2017 [facility] [place] Temperature Oral (F) 97.7 F 05/07/2017 [facility] [place] Systolic (mm Hg) 111 05/07/2017 [facility] [place] Diastolic (mm Hg) 65 05/07/2017 [facility] [place] Heart Rate 70 05/07/2017 [facility] [place] Respitory Rate 17 05/07/2017 [facility] [place] Weight 61.364 05/06/2017 [facility] [place] Temperature Oral (F) 98.2 F 05/06/2017 [facility] [place] Heart Rate 83 05/06/2017 [facility] [place] Respitory Rate 18 05/06/2017 [facility] [place] Systolic (mm Hg) 102 05/06/2017 [facility] [place] Diastolic (mm Hg) 55 05/06/2017 [facility] [place] Heart Rate 79 01/23/2013 [facility] Temperature Oral (F) 98.1 F 01/23/2013 [facility] Respitory Rate 18 01/23/[address] [facility] ion Center Systolic (mm Hg) 133 01/23/2013 [facility] dical Center Diastolic (mm Hg) 69 01/23/2013 [facility] edical Center Diastolic (mm Hg) 68 01/23/2013 [facility] edical Center Systolic (mm Hg) 129 01/23/2013 [facility] dical Center Heart Rate 67 01/23/2013 [facility] Respitory Rate 18 01/23/[address] [facility] Center Temperature Oral (F) 98.4 F 01/23/2013 [facility] Heart Rate 65 01/23/2013 [facility] Systolic (mm Hg) 106 01/23/2013 [facility] dical Center Respitory Rate 18 01/23/[address] [facility] Center Diastolic (mm Hg) 59 01/23/2013 [facility] edical Center Temperature Oral (F) 98.5 F 01/23/2013 [facility] Height 158.4 cm 01/20/2013 [facility] Height 160.02 cm 01/20/2013 [facility] Weight 65 01/20/2013 [facility] Weight 65 01/16/2013 [facility] Diastolic (mm Hg) 78 01/16/2013 [facility] edical Center Systolic (mm Hg) 119 01/16/2013 [facility] dical Center Temperature Oral (F) 98.5 F 01/16/2013 [facility] Center Respitory Rate 18 01/16/[address] [facility] Center Heart Rate 87 01/16/2013 [facility] Encounters Location Location Encounter Encounter Reason Attending ADM MO Stat us Source Details Type Number For Provider Date Date Visit [facility] [id number] ABD ATILLA 01/16 Active [facility] RAULITO [id number] ATILLA 01/19 01/19 Discharg [facility] 1 ERTAN [facility] Inpatient [id number] HILARY 01/20 01/23 Dischar g [facility] 3 SAJJA [facility] Emergency [id number] Bryan 05/06 05/07 [facility] 4 Linh /[address] [facility] [facility] Outpatient [id number] ANGELA 07/15 [facility] [place] [facility] [id number] ANGELA 07/15 [facility] [place] [facility] [id number] Angela 08/03 [facility] [id number] ANGELA / Active [facility] Phone [id number] 08/18 08/20 [facility] Message [facility] [facility] [id number] Angela 09/08 [facility] [place] [facility] Outpatient [id number] Angela 09/08 09/09 [facility] 4 [facility] [place] Outpatient [id number] Angela 10/19 Active [facility] Outpatient [id number] Angela 10/19 10/20 [facility] 5 [facility] [place] Outpatient [id number] Angela 12/21 [facility] [place] [facility] Outpatient [id number] Angela 12/21 12/22 [facility] 6 [facility] [place] Outpatient [id number] Angela 03/15 [facility] [place] [facility] Outpatient [id number] Angela 03/15 03/16 [facility] 7 [facility] [place] Outpatient [id number] Angela 03/22 Active [facility] Outpatient [id number] Angela 03/22 03/23 [facility] 8 [facility] [place] Outpatient [id number] Angela 05/05 Active [facility] Outpatient [id number] Angela 05/05 05/06 [facility] 9 [facility] [place] Outpatient [id number] Angela 08/03 Active [facility] Ambulatory [id number] Angela 08/03 08/03 [facility] Pre-Reg 0 [facility] [id number] Afnan 10/30 10/[address] /[address] [facility] Outpatient [id number] POST ATILLA Cancel [facility] 2 FOLLOW [facility] Center Procedures Procedure Code Date Perfomer Comments Source cholecys [id number] 1gall bladder 2011 [facility] as <sup>1</sup> minicus in right knee 2 011 Medical bladder repair [place] appendectomy 1992 total hysterectomy 1979 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 cholecys<sup>1< [id number] gall bladder 2011 Mi elizabeth /sup> minicus in right knee 201 1 Neuro, bladder repair [facility] appendectomy 1992 [place], total hysterectomy 1979 [place] 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 Assessment and Plan Assessment and Plan Date Source Extracted from:Title: History and Physical 10/31/2019 [facility] Author: Smith Estevez DO Date: 10/31/19 The patient is a 63 year old woman with PMH of HTN, meralgia paresthetica s/p recent lumbosacral plexopathy on 08/2019, cervical spondylosis who was transferred from [facility] to findings of PE and pulmonary infarction [...] with Observation Services, Telemetry Capable Location, Location: [address] [place] [address], Expected LOS: 2 Midnights, Yung Busch DO, [...] History Date Source Social History TypeResponse 10/31/2019 [facility] Alcohol Never Employment/School 1 Substance Abuse Use: [...]
[2019-11-16 11:05] LABS: Protime INR 1.16
--- OUTSIDE RECORDS SUMMARY | 2019-11-16 11:10 | XMS REPORT | Continuity of Care Document ---
:1955 Author Organization [facility] t Address [address] [place] [address] Care Team Providers Name Role Phone Nayla Alonzo MD Primary Care Physician Florentin Busch Attending Clinician Lauryn Fountain MD Attending Clinician Chel Florian MD Attending Clinician Danae TAYLOR Attending Clinician Wanda Suarez NP Attending Clinician Reza CHERY, S. Attending Clinician Chaparro RAVI Attending Clinician Unavailable Vahe HOYT Attending Clinician Unavailable Tulio Palacios Attending Clinician Kevin Stiles Attending Clinician [facility] Attending Clinician Unavailable Danitza Torres MD Attending Clinician Tima Melton Jr Attending Clinician Mike Hannah Admitting Clinician ANIVAL Admitting Clinician Unavailable Payers Payer Name Policy Policy Number Effective Expiration Source Type Date Date CIGNA - MGD CARECIGNA xxxxxxxxx [facility] HMO/POS/OPEN - Medical ACCESSxxxxxxxxxHMO/PO Reva ter S MEDICAREMEDICARE PART xxxxxxxxxxx 2018 Francisco J alex Brown AND 00:00:00 Faith Bxxxxxxxxxxx2018- Arabella NEMedicare COMMERCIAL MISCMISC xxxxxxxxx 2009 [place] COMMERCIALxxxxxxxxx1/ 00:00:00 Met anjali 05/2009-PresentCommerc ial Problems Condition Condition Condition Status Onset Resolution Last Treating Co mments Source Name Details Category Date Date Treatment Clinician Date PE, Diagnosis Active 2019-11-01 Mem oria PULMONARY 10-29 14:09:00 l DVT LEFT PE, 00:00: Agus LEG PULMONARY 00 DVT LEFT LEG Active 10/30/2019 [facility] Follow-up Follow-up Disease Active Lacho romero examinatio examinatio 6-18 Me thodi n n 00:00: st following following 00 surgery surgery S/P lumbar S/P lumbar Disease Active H dany laminectom laminectom 5-19 Me thodi y y 00:00: st 00 DDD DDD Disease Active [place] (degenerat (degenerat 4-13 Me thodi jhon disc jhon disc 00:00: st disease), disease), 00 lumbar lumbar Spinal Spinal Disease Active [place] stenosis stenosis 4-13 Method i of lumbar [...] stenosis stenosis 00 PAD PAD Disease Active [place] (periphera (periphera 2-04 Me thodi l artery l artery 00:00: st disease) disease) 00 Chronic Chronic Disease Active [place] back pain back pain 6-05 Meth nik 00:00: st 00 Generalize Generalize Disease Active H dany d d 4-30 Methodi abdominal abdominal 00:00: st pain pain 00 Right Right Disease Active [place] upper upper 07-26 Methodi quadrant quadrant 00:00: st pain pain 00 Slow Slow Disease Active [place] transit transit 07-26 Methodi constipati constipati 00:00: st on on 00 History of History of Disease Active H dany cholecyste cholecyste 07-26 Me thodi ctomy ctomy 00:00: st 00 Essential Essential Disease Active Lacho ston hypertensi hypertensi 07-26 Me thodi on on 00:00: st 00 Splenic Splenic Disease Active [place] artery artery 07-26 Methodi aneurysm aneurysm 00:00: st 00 Anxiety Anxiety Disease Active [place] 07-26 Methodi 00:00: st 00 ABDOMINAL Diagnosis Active 2017-05-06 Memoria PAIN/LOSS 05-06 18:11:00 l OF 00:00: Agus APPETITE ABDOMINAL 00 PAIN/LOSS OF APPETITE Active 05/06/2017 [facility] SURGERY Diagnosis Active 2013-01-20 Me moria THIS 01-19 08:28:00 l MORNING, SURGERY 00:00: Maria E nn PROBLEMS THIS 00 BREATHING MORNING, PROBLEMS BREATHING Active 01/19/2013 [facility] POST Diagnosis Active 2013-03-05 Mem oria FOLLOW UP 01-19 15:20:00 l POST 00:00: Agus FOLLOW UP 00 Active 01/19/2013 [facility] BDDC-WEIGH Diagnosis Active 2013-01-19 Memoria T LOSS 01-17 08:37:00 l 00:00: [place] BDDC-WEIGH 00 T LOSS Active 01/17/2013 [facility] 783.21 - Diagnosis Active 2013-12-25 M emoria ABNORMAL 01-16 02:47:00 l LOSS O 783.21 - 00:01: Dwight n 576.0 - ABNORMAL 00 POSTCHO LOSS O 576.0 - POSTCHO Active 01/16/2013 MARIA VICTORIA Sauer ABD PAIN Diagnosis Active 2013-01-16 M emoria 01-11 13:45:00 l ABD PAIN 00:00: Dwight n 00 Active 01/11/2013 [facility] Acid Problem Resolve 2013-01-25 Abdiel leigh ann reflux d 21:01:15 l Acid Agus reflux Resolved Problem 01/25/2013 [facility] HTN - Problem Resolve 2013-01-25 Abdiel leigh ann Hypertensi d 21:01:15 l on HTN - Agus Hypertensi on Resolved Problem 01/25/2013 [facility] Gastroesop Problem Resolve 2019-11-02 Memoria hageal d 22:38:04 l reflux Agus disease Gastroesop (disorder) hageal reflux disease (disorder) Resolved Problem 11/02/2019 [facility] Lumbosacra Problem Resolve 2019-11-02 Memoria l plexus d 22:38:04 l neuropathy Dwight n (disorder) Lumbosacra l plexus neuropathy (disorder) Resolved Problem 11/02/2019 [facility] Cervical Problem Active 2019-11-02 Mem oria spondylosi 22:38:04 l s Cervical Dwight n (disorder) spondylosi s (disorder) Active Problem 11/02/2019 [facility] Hypertensi Problem Active 2019-11-02 M emoria ve 22:38:04 l disorder, Agus systemic Hypertensi arterial ve (disorder) disorder, systemic arterial (disorder) Active Problem 11/02/2019 [facility] Menopausal Problem Active 2019-11-02 M emoria syndrome 22:38:04 l (disorder) Dwight n Menopausal syndrome (disorder) Active Problem 11/02/2019 [facility] Meralgia Problem Active 2019-11-02 Mem oria parestheti 22:38:04 l ca Meralgia Dwight n (disorder) parestheti ca (disorder) Active Problem 11/02/2019 [facility] Pituitary Problem Active 2019-11-02 Me moria adenoma 22:38:04 l (disorder) Dwight n Pituitary adenoma (disorder) Active Problem 11/02/2019 Data migrated from [facility] on 12/25/14. [facility] Ulcer of Problem Active 2019-11-02 Mem oria lower 22:38:04 l extremity Ulcer of Her melendez (disorder) lower extremity (disorder) Active Problem 11/02/2019 [facility] ABDMNAL Diagnosis Active 2013-01-20 Me moria PAIN 08:28:00 l UNSPCF ABDMNAL Agus SITE PAIN UNSPCF SITE Active [facility] Unspecifie Problem 2017-2017-05-09 2017-05-09 Memoria d 1-04 05:06:50 05:06:50 l abdominal 06:00: Agus pain Unspecifie 00 d abdominal pain 05/06/2017 05/09/2017 [facility] Allergies, Adverse Reactions, Alerts Allergy Allergy Status Severity Reaction(s) Onset Inactive Treating Comm ents Source Name Type Date Date Clinician Morphine Propensi Active Other (See Makes her [place] ty to Comments) 01-15 loud and Metho di adverse 00:00: crazy st reaction 00 s to drug Diazepam Propensi Active Other (See Makes her [place] ty to Comments) 01-15 crazy and Meth nik adverse 00:00: wild st reaction 00 s to drug Midazola Propensi Active Other (See Makes her [facility] ty to Comments) 01-15 crazy and Meth nik adverse 00:00: loud st reaction 00 s to drug midazola midazola Active 2011-05 Memori a m<sup>2< m<sup>2< 0-23 l /sup> /sup> 05:00: morphine morphine Active 2011-05 Memori a <sup>3</ <sup>3</ 0-23 l sup> sup> 05:00: 00 midazola DA Active SV 2009-05 [facility] 05-13 00:00: [address] diazepam DA Active SV 2009-05 [facility] 05-13 00:00: [address] morphine DA Active MO 2009-05 [facility] 05-13 00:00: [address] Valium Valium Active Memoria l [place] morphine morphine Active Memori a l Agsu cortison cortison Active Memori a e e l Agus Family History Family Member Diagnosis Comments Start Date Stop Date Source Natural father Cancer [place] [facility] thodist Natural father Liver cancer [place] Faith Natural father Liver disease [place] Faith Natural father Lung cancer [facility] ethodist Maternal grandfather Heart disease H [place] Faith Maternal grandfather Hypertension Ho a[place] Faith Maternal grandmother Heart disease [place] Faith Maternal grandmother Hypertension Ho a[place] Faith Natural mother Cancer [place] [facility] thodist Natural mother Colon cancer [place] Faith Natural mother Ovarian cancer [place] Natural mother Stomach cancer [place] Social History Social Habit Start Date Stop Date Quantity Comments Source Sex Assigned At [place] M ethodist Exposure to Not sure [place] Metho dist SARS-CoV-2 (event) Alcohol intake 2019-09-20 2019-09-[address] [facility] thodist 00:00:00 00:00:00 non-drinker of alcohol (finding) Social History 2017-05-07 2017-05-07 [facility] ermann 04:13:00 04:13:00 Smoking Status Start Date Stop Date Source Never smoker [place] Methodis t Medications Ordered Filled Start Stop Current Ordering Indication Dosage Frequency Signature Comments Components Source Medication Medication Date Date Medication? Clinician (SIG) Name Name remove No Notes: Memoria patch 10-31 Remove l 05:40: patch 12 Agus 00 hours after applicatio n each day. sennosides, No Notes: Abdiel leigh ann ASSISTED 10-31 (Same as: l 02:00: Senokot) [place] 00 tramadol No Notes: Not Mem oria hydrochlori 6-30 to exceed l de 50 MG 19:00: 400mg/day. Her melendez Oral Tablet 00 (Same As: Ultram) Lidocaine Yes 1 patch, Abdiel leigh ann Hydrochlori 6-30 TOP, l de 0.05 17:45: Daily, [place] MG/MG 00 Remove Transdermal after 12 Patch hours, # [Lidoderm] 30 patch, 0 Refill(s), Pharmacy: [facility] #[id number], 167.64, cm, 10/31/19 2:23:00 CDT, [...] tab, PO, l tablet 16:11: Daily, 0 Agus 00 Refill(s) omeprazole 2020-0 Yes 20 mg [...] not crush l Coated 14:00: or chew. Agus Tablet 00 (Same As: Ecotrin) Prilosec 2019-0 [...] Memoria 6-30 Tablet l 14:00: should not [place] 00 be chewed or crushed. (Same as: Protonix) Acetaminoph No Notes: Abdiel leigh ann en 325 MG / 6-30 (Same as: l Hydrocodone 08:17: [place] Maria E nn Bitartrate 00 325/5) Do 5 MG Oral not exceed Tablet 4gm/day of [[place] acetaminop 5/325] hen. Hydromorpho No Notes: Abdiel leigh ann ne 6-30 Same as l 08:16: Dilaudid [place] 00 Heparin 80 No Route: Memor ia unit/kg 6-30 IVP, PRN, l Bolus 07:25: 5,400 [place] (Heparin 00 unit, 5.4 Dosing mL, Drug [...] not exceed l Hydrocodone 07:17: 4gm/day of Agus Bitartrate 00 acetaminop 10 MG Oral hen. Tablet (Same as: [place] 325/10) clorazepate No Notes: Abdiel leigh ann 6-30 (Same As: l 07:17: Tranxene-T [place] 00 ) tizanidine 2020-0 No Notes: Memor [...] microgram l Oral 07:11: = 1 cap, Agus Capsule 00 PO, Daily, [Linzess] 30 minutes [...] 38 :00 daily. pregabalin 2020-0 Yes 100mg [id number] Take 100 Yoo (LYRICA) 5-22 [id number] mg by Meth nik 100 MG 11:10: 3D mouth 3 st capsule 32 (three) times a day. quinapril 2020-0 Yes 20mg QD Take 20 mg Ho [place] (ACCUPRIL) 5-22 by mouth Metho di 20 MG 11:10: nightly. st tablet 32 HYDROcodone 2020-0 Yes acute pain 1{tbl} [id number] Take 1 Yoo -acetaminop 5-22 [id number] tablet by Methodi hen (NORCO) 11:10: 3D [...] tab, PO, l Coated 17:17: Daily, # [place] Tablet 00 90 tab, 3 Refill(s) cefdinir Yes 300 mg = 1 Mem oria 300 MG Oral 1-03 cap, PO, l Capsule 16:58: BID, # 20 Maria E nn 00 cap, 0 Refill(s) Estrogens, Yes 0.3 mg = 1 M emoria Conjugated 8-22 tab, PO, l (ASSISTED) 0.3 13:52: Daily, # Herm emmett MG Oral 00 30 tab, 0 Tablet Refill(s) [Premarin] Acetaminoph Yes 1 tab, PO, Memoria en 325 MG / 8-22 Q6H, 0 l Hydrocodone 13:52: Refill(s) H ermann Bitartrate 00 10 MG Oral Tablet Belbuca Yes BUC, Q12H, Abdiel leigh ann 6-19 0 l 16:41: Refill(s) [place] 00 Buprenorphi Yes 150 Memori a ne [...] PO, l oral tablet 15:16: Bedtime, # [place] 24 180 tab, 3 Refill(s), Pharmacy: [facility] #[id number] amitriptyli 2019- No 20 mg = 2 [place] ne (ELAVIL) 4-18 05-11 tab, PO, Met hodi 10 MG 00:00: 00:00 Bedtime, # st tablet 00 :00 180 tab, 3 Refill(s), Pharmacy: [facility] #[id number] CREON 2020- No TAKE ONE [place] 12,000-38,0 08-02 02-04 CAPSULE BY Fabian domingo [...] 3) Ondansetron No Notes: Abdiel leigh ann - (Same as: l 18:46: Zofran) MEDICATION WASTE Product Size: 4 mg Product Wasted: ___ mg Sodium No 1,000 mL, Memori a Chloride 04 1000 l 0.9% 18:46: ml/hr, Agus (Bolus) IV 00 Infuse Over: 1 hr, Route: IV, 1,000, Drug form: INJ, ONCE, Priority: STAT, Dosing Weight 61.364 kg, Start date: 05/06/17 12:46:00 PUDDLER HELPER, Stop date: 05/06/17 12:46:00 PUDDLER HELPER Saline No Notes: Memoria Flush 0.9% -04 (Same as: l 18:46: BD [place] 00 Posiflush) potassium 2016-05- No 10meq QD [...] needed for pain, Substituti on Allowed, TAB [place] No Weston 1 tab, Memoria 10/325 oral [...] Duration: 30 day, Stop date: 02/21/13 12:16:00 [place] No Weston 1 tab, Memoria 10/325 oral 01-22jja Route: PO, l tablet 07:14: Drug Form: Maria E nn 00 TAB, Dosing Weight 65, kg, Q4H, PRN Pain, NOW, Start date: 01/22/13 2:14:00, Duration: 30 day, Stop date: 02/21/13 2:13:00 Remeron No Weston 15 mg, 1 Abdiel leigh ann 01-22 Sajja tab, l 02:00: Route: PO, Agus Drug form: TAB, Bedtime, Dosing Weight 65, [...] 01-21 Sajja pkt, l 14:38: Route: PO, Leoti 00 Drug form: PWDR, Daily, Dosing Weight [...] 01-21 Sajja tab, l 14:00: Route: PO, Agus 00 Drug form: ECTAB, Daily, Dosing Weight [...] Route: l 11:00: SUB-Q, Drug form: INJ, [id number], Dosing Weight 65, kg, Start date: 01/20/13 6:00:00, Duration: 30 day, Stop date: 02/18/13 6:00:00 NS + KCL No Elyssa 1,000 mL, Me moria 20mEq/L 01-20 Luis Rate: 125 l 1000ml 10:25: ml/hr, [place] (Premix) Infuse 1,000 mL over: 8 hr, [...] Mem oria 20 on Allowed l 10:21: [place] 15 ondansetron No Elyssa 4 mg, 2 M emoria 20 Luis mL, Route: l 10:15: IVP, Drug form: INJ, Q8H, Dosing Weight 65, kg, PRN Nausea & Vomiting, Start date: 01/20/13 5:15:00, Duration: 30 day, Stop date: 02/19/13 5:14:00 NS 1,000 mL No Peter 1,000 mL, Memoria 01-20 Hardeep Rate: 75 l 09:41: Catherine ml/hr, Agus 00 Infuse over: 13.3 hr, Route: IV, Dosing Weight 65 kg, Total Volume: 1,000, Start date: 01/20/13 4:41:00, Duration: 30 day, Stop date: 02/19/13 4:40:00 Zosyn No Weston 3.375 gm, Memor ia 01-20 Sajja Route: l 08:51: IVPB, Drug [place] 00 form: PDR/INJ, ONCE, Dosing Weight 65, kg, Priority: STAT, Start date: 01/20/13 3:51:00, Stop date: 01/20/13 3:51:00 fentanyl No Willian 50 Memoria 9-20 Hardeep microgram, l 08:43: Catherine Route: [place] 00 IVP, ONCE, Dosing Weight 65, kg, [...] -20 Hardeep microgram, l 04:31: Catherine Route: [place] 00 IVP, ONCE, Dosing Weight 65, kg, [...] 01-20 Hardeep Rate: l 03:38: Florin 1,000 [place] 00 ml/hr, Infuse over: 1 hr, Route: IV, Dosing Weight 65 kg, Total Volume: 1,000, Priority: STAT, Start date: 01/19/13 22:38:00, Duration: 1 doses or times, Stop date: 01/19/13 23:37:00, Bolus DoseBolus Dose fentanyl No Willian 50 Memoria -20 Hardeep microgram, l 03:13: Catherine 1 mL, Le[place] 00 Route: IVP, Drug form: INJ, ONCE, [...] Oral (F) 2019-10-31 20:24:00 98.1 F Memorial Agus Heart Rate 2019-10-31 20:24:00 Memorial Agus Respitory Rate 2019-10-31 20:24:00 Memori al Agus Systolic (mm Hg) 2019-10-31 20:24:00 Abdiel rial [place] Diastolic (mm Hg) 2019-10-31 20:24:00 Mem orial [place] Temperature Oral (F) 2019-10-31 16:12:00 98.2 F [facility] [place] Heart Rate 2019-10-31 16:12:00 Memorial Agus Respitory Rate 2019-10-31 16:12:00 Memori al [place] Systolic (mm Hg) 2019-10-31 16:12:00 Abdiel rial [place] Diastolic (mm Hg) 2019-10-31 16:12:00 Mem orial [place] Temperature Oral (F) 2019-10-31 12:25:00 97.9 F [facility] [place] Heart Rate 2019-10-31 12:25:00 Memorial Agus Respitory Rate 2019-10-31 12:25:00 Memori al Agus Systolic (mm Hg) 2019-10-31 12:25:00 Abdiel rial Agus Diastolic (mm Hg) 2019-10-31 12:25:00 Mem orial [place] Height 2019-10-31 07:23:00 167.64 cm Memorial Agus Weight 2019-10-31 07:23:00 [facility] [place] BMI Calculated 2019-10-31 07:23:00 Memori al Agus Systolic blood 2019-09-22 07:44:14 153 mm[Hg] [place] pressure Diastolic blood 2019-09-22 07:44:14 70 mm[Hg] [place] pressure Heart rate 2019-09-22 07:44:14 65 /min [place] [facility] Body temperature 2019-09-22 07:44:14 36.78 Radha [place] Respiratory rate 2019-09-22 07:44:14 18 /min [place] Oxygen saturation in 2019-09-22 07:44:14 97 /min [place] Faith Arterial blood by Pulse oximetry Body height 2019-09-19 10:00:00 167.6 cm [place] Faith Body weight 2019-09-19 10:00:00 80.241 kg Yoo Faith BMI 2019-09-19 10:00:00 28.55 kg/m2 Yoo Faith Systolic (mm Hg) 2019-05-05 16:51:00 Abdiel rial Agus Diastolic (mm Hg) 2019-05-05 16:51:00 Mem orial [place] Heart Rate 2019-05-05 16:51:00 [facility] [place] Respitory Rate 2019-05-05 16:51:00 Memori al [place] Height 2019-05-05 16:51:00 165.1 cm [facility] [place] Weight 2019-05-05 16:51:00 Memorial Agus BMI Calculated 2019-05-05 16:51:00 Memori al Agus Systolic (mm Hg) 2019-03-22 17:27:00 Abdiel rial Agus Diastolic (mm Hg) 2019-03-22 17:27:00 Mem orial [place] Heart Rate 2019-03-22 17:27:00 [facility] [place] Respitory Rate 2019-03-22 17:27:00 Memori al Agus Height 2019-03-22 17:27:00 165.1 cm [facility] [place] Weight 2019-03-22 17:27:00 [facility] [place] BMI Calculated 2019-03-22 17:27:00 Memori al [place] Systolic (mm Hg) 2019-03-15 17:56:00 Abdiel rial [place] Diastolic (mm Hg) 2019-03-15 17:56:00 Mem orial Agus Heart Rate 2019-03-15 17:56:00 [facility] [place] Respitory Rate 2019-03-15 17:56:00 Memori al [place] Height 2019-03-15 17:56:00 165.1 cm Memorial [place] Weight 2019-03-15 17:56:00 Memorial Agus BMI Calculated 2019-03-15 17:56:00 Memori al [place] Systolic (mm Hg) 2018-12-21 16:44:00 Abdiel rial [place] Diastolic (mm Hg) 2018-12-21 16:44:00 Mem orial [place] Heart Rate 2018-12-21 16:44:00 Memorial Agus Respitory Rate 2018-12-21 16:44:00 Memori al Agus Height 2018-12-21 16:44:00 165.1 cm Memorial Agus Weight 2018-12-21 16:44:00 Memorial Agus BMI Calculated 2018-12-21 16:44:00 Memori al Agus BMI Calculated 2018-10-19 16:19:00 Memori al [place] Height 2018-10-19 16:19:00 167.64 cm Memorial Agus Weight 2018-10-19 16:19:00 [facility] [place] Systolic (mm Hg) 2018-10-19 16:19:00 Abdiel rial [place] Diastolic (mm Hg) 2018-10-19 16:19:00 Mem orial Agus Respitory Rate 2018-10-19 16:19:00 Memori al Agus Heart Rate 2018-10-19 16:19:00 Memorial Agus BMI Calculated 2018-09-08 19:24:00 Memori al [place] Weight 2018-09-08 19:24:00 Memorial Agus Height 2018-09-08 19:24:00 167.64 cm [facility] [place] Respitory Rate 2018-09-08 19:24:00 Memori al [place] Heart Rate 2018-09-08 19:24:00 [facility] [place] Systolic (mm Hg) 2018-09-08 19:24:00 Abdiel rial [place] Diastolic (mm Hg) 2018-09-08 19:24:00 Mem orial [place] Heart Rate 2017-05-07 04:11:00 [facility] [place] Systolic (mm Hg) 2017-05-07 04:11:00 Abdiel rial Agus Diastolic (mm Hg) 2017-05-07 04:11:00 Mem orial [place] Respitory Rate 2017-05-07 04:11:00 Memori al [place] Temperature Oral (F) 2017-05-07 04:11:00 98.0 F [facility] [place] Temperature Oral (F) 2017-05-07 02:30:00 97.7 F Memorial Agus Systolic (mm Hg) 2017-05-07 02:30:00 Abdiel rial [place] Diastolic (mm Hg) 2017-05-07 02:30:00 Mem orial [place] Heart Rate 2017-05-07 02:30:00 [facility] [place] Respitory Rate 2017-05-07 02:30:00 Memori al Agus Weight 2017-05-06 18:43:00 [facility] [place] Temperature Oral (F) 2017-05-06 18:43:00 98.2 F Memorial Agus Heart Rate 2017-05-06 18:43:00 Memorial Agus Respitory Rate 2017-05-06 18:43:00 Memori al Agus Systolic (mm Hg) 2017-05-06 18:43:00 Abdiel rial [place] Diastolic (mm Hg) 2017-05-06 18:43:00 Mem orial Agus Heart Rate 2013-01-23 12:37:00 [facility] [place] Temperature Oral (F) 2013-01-23 12:37:00 98.1 F Memorial Agus Respitory Rate 2013-01-23 12:37:00 Memori al [place] Systolic (mm Hg) 2013-01-23 12:37:00 Abdiel rial [place] Diastolic (mm Hg) 2013-01-23 12:37:00 Mem orial [place] Diastolic (mm Hg) 2013-01-23 10:13:00 Mem orial Agus Systolic (mm Hg) 2013-01-23 10:13:00 Abdiel rial [place] Heart Rate 2013-01-23 10:13:00 [facility] [place] Respitory Rate 2013-01-23 10:13:00 Memori al Agus Temperature Oral (F) 2013-01-23 10:13:00 98.4 F [facility] [place] Heart Rate 2013-01-23 00:10:00 Memorial Agus Systolic (mm Hg) 2013-01-23 00:10:00 Abdiel rial Agus Respitory Rate 2013-01-23 00:10:00 Memori al [place] Diastolic (mm Hg) 2013-01-23 00:10:00 Mem orial [place] Temperature Oral (F) 2013-01-23 00:10:00 98.5 F Memorial Agus Height 2013-01-20 14:20:00 158.4 cm Memorial Agus Height 2013-01-20 01:53:00 160.02 cm [facility] [place] Weight 2013-01-20 01:53:00 [facility] [place] Weight 2013-01-16 19:03:00 [facility] [place] Diastolic (mm Hg) 2013-01-16 19:03:00 Mem orial [place] Systolic (mm Hg) 2013-01-16 19:03:00 Abdiel rial [place] Temperature Oral (F) 2013-01-16 19:03:00 98.5 F [facility] Agus Respitory Rate 2013-01-16 19:03:00 Memori al [place] Heart Rate 2013-01-16 19:03:00 [facility] [place] Procedures Procedure Date / Time Performing Clinician [...] TIME WITH INR 2019-09-20 17:20:00 Benita Shepherd Faith PARTIAL THROMBOPLASTIN 2019-09-20 17:20:00 Benita Shepherd Faith TIME (PTT) BASIC METABOLIC PANEL 2019-09-20 17:20:00 [...] ANESTHESIA INTUBATION 2019-09-19 15:59:28 Douglas Gilmore uston Faith [place] AN ELECTIVE 2019-09-19 15:51:07 Douglas Gilmore ENDOTRACHEAL [...] CT POST MYELOGRAM 2019-09-06 12:33:08 Raffi Florian Or thodist THORACIC CT POST MYELOGRAM LUMBAR 2019-09-06 12:32:32 Raffi Florian IR MYELOGRAM 2+REG INCL 2019-09-06 11:12:24 Raffi Florian INJ W S&I XR LUMBAR SPINE COMPLETE 2019-08-14 11:06:30 Raffi Florian W BENDING XR SPINE SCOLIOSIS 2-3 2019-08-14 11:06:00 Raffi Florian on Faith VIEWS US CAROTID DUPLEX 2019-06-13 10:00:00 Silvio Torres Or thodist BILATERAL CT ANGIOGRAM ABDOMINAL 2019-06-06 17:02:20 Silvio Torres on Faith AORTA AND BILATERAL ILIOFEMORAL RUNOFF W WO CONTRAST POC CREATININE 2019-06-06 15:21:00 Jose Moreno ESTIMATED GFR 2019-06-06 15:21:00 Jose Moreno BASIC METABOLIC PANEL 2019-06-06 11:02:00 Silvio Torres COPY(IES) SENT TO: 2019-06-06 11:02:00 Silvio Torres ethodist COPY RECEIVED FROM: 2019-06-06 11:02:00 Silvio Torres ECG 12-LEAD 2019-06-06 09:55:18 Silvio Torres Meth odist MRI SPINE EXTERNAL STUDY 2019-03-06 15:47:00 Raffi Florian cholecys <sup>1</sup> [facility] ermann cholecys<sup>1</sup> [facility] of Care Planned Activity Planned Date Details Comments Source Future Scheduled 2019-12-02 INFLUENZA VACCINE Anita Campbell Test 00:00:00 [code = INFLUENZA VACCINE] Future Scheduled 2018 65+ PNEUMOCOCCAL Fredo Campbell Test 00:00:00 VACCINE (1 of 2 - PCV13) [code = 65+ PNEUMOCOCCAL VACCINE (1 of 2 - PCV13)] Future Scheduled 2003-12-[address] [facility] thodist Test 00:00:00 SCREENING [code = BREAST CANCER SCREENING] Future Scheduled 2003-12-10 COLONOSCOPY SCREENING Ho alex Faith Test 00:00:00 [code = COLONOSCOPY SCREENING] Future Scheduled 2003-12-10 SHINGLES VACCINES (#1) H dany Faith Test 00:00:00 [code = SHINGLES VACCINES (#1)] Future Scheduled 1974 Screening for [place] [facility]ist Test 00:00:00 malignant neoplasm of cervix (procedure) [code = 387488982] Encounters Start End Encounter Admission Attending Care Care Encounter Source Date/Time Date/Time Type Type Clinicians Facility Department ID 2019-10-31 2019-10-31 Outpatient [place] [id number] 02:06:00 16:58:00 Yung Lerma 2019-10-31 2019-10-31 Outpatient [facility] [id number] 02:06:00 02:06:00 2019-10-19 2019-10-19 Outpatient [facility] [id number] [place] 00:00:00 00:00:[address]FF[address] 2019-09-19 2019-09-22 Inpatient [facility] [id number] [place] 00:00:00 00:00:[address] RAFFI [address] 2019-09-11 2019-09-11 Outpatient [facility] [id number] [place] 00:00:00 00:00:00 RAFFI [address] 2019-09-11 2019-09-11 Outpatient [facility] [id number] [place] 00:00:00 00:00:00 RAFFI [address] 2019-09-06 2019-09-06 [id number] [place] 00:00:00 00:00:00 RAFFI [address] 2019-09-06 2019-09-06 Outpatient [facility] [id number] [place] 00:00:00 00:00:00 RAFFI [address] 2019-09-06 2019-09-06 [facility] [id number] [place] 00:00:00 00:00:00 RAFFI [address] 2019-08-14 2019-08-14 [facility] [facility] [id number] [place] 00:00:00 00:00:00 RAFFI [address] 2019-08-14 2019-08-14 Outpatient FLORIAN, [facility] [id number] [place] 00:00:00 00:00:00 RAFFI [address] 2019-08-14 2019-08-14 Outpatient FLORIAN, [facility] [id number] [place] 00:00:00 00:00:00 RAFFI [address] 2019-08-14 2019-08-14 Outpatient FLORIAN, [facility] [id number] [place] 00:00:00 00:00:00 RAFFI [address] 2019-08-14 2019-08-14 Outpatient FLORIAN, [facility] [id number] [place] 00:00:00 00:00:00 RAFFI [address] 2019-08-04 2019-08-04 Outpatient JOSELUIS PlaaciosMISCHER MHMISCHER [id number] 09:15:00 09:15:00 Felice 10 [facility] 2019-07-28 2019-07-28 [facility] [id number] 17:09:00 23:59:00 Encounter [place] [id number] [place] 4.2.7.2.686 [place] [id number] 2019-07-28 2019-07-28 Urgent Pob1, Acute [facility] [id number] 15:30:08 17:04:14 [facility] [id number] [place] 4.2.7.2.686 Profess [id number] nal [address] 2019-07-04 2019-07-04 Outpatient TORRES, [facility] [id number] [place] 00:00:00 00:00:00 SILVIO [address] 2019-05-05 2019-05-05 Outpatient ALEJA PalaciosSCHER MHMISCHER [id number] 11:45:00 23:59:59 Felice 09 [facility] 2019-03-22 2019-03-22 Outpatient ALEJA PalaciosSCHER MHMISCHER [id number] 11:30:00 23:59:59 Felice 08 [facility] 2019-03-15 2019-03-15 Outpatient Krell, MHMISCHER MHMISCHER [id number] 11:15:00 23:59:59 Felice 07 [facility] 2018-12-21 2018-12-21 Outpatient JOSELUIS PalaciosMISCHER MHMISCHER [id number] 11:30:00 23:59:59 Felice 06 Tulio 2018-10-19 2018-10-19 Outpatient ALEJA PalaciosSCHER MHMISCHER [id number] 11:45:00 23:59:59 Felice 05 Tulio 2018-09-08 2018-09-08 Outpatient JOSELUIS PalaciosMISCHER MHMISCHER [id number] 14:30:00 23:59:59 Felice 04 [facility] 2018-08-18 2018-08-19 Outpatient MHMISCHER MHMISCHER [id number] 10:14:00 23:59:59 00 2017-05-06 2017-05-06 Outpatient Linh, [facility] [id number] 12:16:00 22:13:00 Bryan Alfred Results Test Description Test Time Test Comments Results Result Comments Source HEMATOLOGY 2019-10-31 20:36:00 Test Item Value Reference Range Interpretation Comme nts PT (test code = PT) 14.3 s 12.0-14.7 [facility]QdrqybgPETABTSTVY3360-23-30 20:36:00 Test Item Value Reference Range Interpretation Comments INR (test code = INR) 1.11 1 0.85-1.17 [facility]HW[facility]XZFQ6027-84-23 20:36:00 Test Item Value Reference Range Interpretation Comments PTT (test code = PTT) 94.8 s 22.9-35.8 [facility] ChildrenFtuupknIZOBUUTMIQ7390-04-66 14:58:00 Test Item Value Reference Range Interpretation Comments PT (test code = PT) 14.4 s 12.0-14.7 [facility] ChildrenRlvjqxeHCJYKQKTJX1758-12-19 14:58:00 Test Item Value Reference Range Interpretation Comments INR (test code = INR) 1.11 1 0.85-1.17 [facility] HospitalCngivfvHQEBXMOMCL2672-12-57 14:58:00 Test Item Value Reference Range Interpretation Comments PTT (test code = PTT) 86.8 s 22.9-35.8 [facility] [employer] [facility] JZIABBX0689-00-34 07:51:00Negative (10/31/19 2:51 AM) [facility] VRZOF1881-48-97 07:51:0091[facility]annCHEM PANEL 2019-10-31 07:51:0013[facility]annCHEM MJGZV1650-88-53 07:51:000.70[facility]annCHEM JOXRE5908-00-12 07:51:16731Wocrpdpj HermannCHEM SDCQJ0274-59-05 07:51:004.0[facility]annCHEM EYMQS8292-88-60 07:51:80527Eeagkmvr HermannCHEM VJOJO6266-54-60 07:51:0024[facility]annCHEM TXHDM8060-90-19 07:51:008.5 [facility]annCHE[facility] QTLOR9640-13-48 07:51:006.[facility] HermannCHEM PANEL 2019-10-31 07:51:003.0[facility]annCHEM MZBIZ1902-82-39 07:51:0016[facility]annCHEM PCUMH1910-03-31 07:51:0020[facility] HermannCHEM PMARN5751-53-89 07:51:78100Dhtiwfow HermannCHEM VOTQT5439-37-72 07:51:000.4[facility]annCHEM EZJOH3071-62-38 07:51:0014.0[facility]annCHEM LRZPZ1520-20-03 07:51:00 Test Item Value Reference Range Interpretation Comments B/C Ratio (test code = B/C Ratio) 19 1 6-25 [facility]annCHE[facility] EXMIQ7958-12-01 07:51:003.[facility] HermannCHEM PANEL 2019-10-31 07:51:00 Test Item Value Reference Range Interpretation Comments A/G Ratio (test code = A/G Ratio) 0.8 1 0.7-1.6 [facility]annCHE[facility] PBSZF2635-28-31 07:51:0091[facility] HermannHEMATOLOGY 2019-10-31 07:51:008.0[facility] AylujbfDAXUGNJTBP9847-28-77 07:51:003.97[facility] CwlnuatGURJCZRKCI1452-48-23 07:51:0012.5[facility]orial WzqmfriZAEZBNCTDH1123-36-92 07:51:0037.6[facility] QrkqafrEXWNQNBKPC8334-14-13 07:51:0094.8[facility] MIAUSBBPAA0232-42-79 07:51:00 Test Item Value Reference Range Interpretation Comments MCH (test code = MCH) 31.4 pg 27.0-31.0 [facility] CncjpgsJZBPNCRBES7160-36-01 07:51:0033.1[facility] HermannHEMATOLOGY 2019-10-31 07:51:0013.0[facility] HzasmwtWUQVUWCVJM1169-26-22 07:51:40798Rpkdnbif WxdycyeIFCXRIPYEM6467-62-79 07:51:008.8[facility]orial RjlzxmrCHLZEJBBAJ7767-38-83 07:51:00 Test Item Value Reference Range Interpretation Comments PT (test code = PT) 14.2 s 12.0-14.7 [facility] OhmvtinJBLAIRAIQU8800-28-53 07:51:00 Test Item Value Reference Range Interpretation Comments INR (test code = INR) 1.10 1 0.85-1.17 [facility] VztszchMKHFMXJEIZ3587-72-04 07:51:00 Test Item Value Reference Range Interpretation Comments PTT (test code = PTT) 64.7 s 22.9-35.8 [facility] WeictssASQHZFAEVF5768-15-38 07:51:0063.4[facility] HermannHEMATOLOGY 2019-10-31 07:51:0026.0[facility] HrfidurMMWHMTIKRT4439-74-77 07:51:008.5[facility] SlwtjtpFMYNWPCQUP9093-24-22 07:51:001.6[facility] HjqmsmbCFDHIIAIHX9557-41-55 07:51:000.5[facility] BeiczeeUOFZPESXDF8430-81-95 07:51:005.1[facility] SBJZENZPLH3008-61-59 07:51:002.1[facility] RwrliusANMPRDNVVI9197-32-00 07:51:000.7 Memorial NmiffryTHGXASWUZV8305-31-12 07:51:000.1[facility] HermannSurgical pathology unfvzdt6616-88-17 17:07:26 Test Item Value Reference Range Interpretation Comments Case number (test code = [id number]) Surgical pathology See link below for report (test code = PDF Lab Report [id number]) Result status (test code This is Final Report = [id number]) for [id number] Fredo BrockG 12 yidb0852-09-77 15:18:08 Test Item Value Reference Range Interpretation Comments Ventricular rate (test 88 code = 253) Atrial rate (test code 88 = 255) WA interval (test code 164 = 266) QRSD [...] was found- Fredo Becerra drugs of abuse yrfgps2322-88-28 22:23:33 Test Item Value Reference Interpretation Comments Range Amphetamine screen, Negative urine (test code = 3349-8) Barbiturate screen, Negative urine (test code = 3377-9) Benzodiazepine Negative screen, urine (test code = 3390-2) Cocaine screen, Negative urine (test code = 3397-7) Methadone Negative metabolite (EDDP), urine (test code = 52347-0) Opiates screen, Negative urine (test code = 3879-4) Oxycodone screen, Positive A urine (test code = 53869-6) Phencyclidine Negative screen, urine (test code = 3936-2) Tricyclic screen, Negative urine (test code = 72650-3) Cannabinoid screen, Negative Drug scr een minimum [...] ired. Lab Interpretation Abnormal (test code = 55874-9) Fredo MethodistUrinalysis screen and microscopy, with reflex to culture 2019-09-20 20:48:08 Test Item Value Reference Range Interpretation Comments Specimen site (test code = Clean catch 1533301) Color, UA (test code = 5778-6) Straw Appearance, UA (test code = Clear 5767-9) Specific gravity, UA (test code = 1.003 1.001-1.035 5811-5) pH, UA (test code = 5803-2) 7.0 5.0-8.5 Protein, UA (test code = 87244-7) Negative Negative Glucose, UA (test code = 84592-0) Negative Negative Ketones, UA (test code = 2514-8) Negative Negative Bilirubin, UA (test code = Negative Negative 5770-3) Blood, UA (test code = 5794-3) Negative Negative Nitrite, UA (test code = 5802-4) Negative Negative Urobilinogen, UA (test code = <2.0 <2.0 91889-7) Leukocyte esterase, UA (test code Negative Negative = 5799-2) Epithelial cells, UA (test code = 5 /HPF 5787-7) WBC, UA (test code = 5821-4) 1 0- 4 /HPF RBC, UA (test code = 54520-7) 1 0- 5 /HPF Bacteria, UA (test code = Few None seen 48475-8) Yeast, UA (test code = 71763-5) None seen Yeast with pseudohyphae, UA (test None seen code = 40129-3) Fredo MethodistUrine rnqpgww8173-42-27 20:45:55 Test Item Value Reference Range Interpretation Comments Urine culture (test SEE COMMENT Bacteriu leigh ann screen code = 3845987) negative. Fredo MethodistCT Lumbar Spine Wo Qzpjhptf0756-86-49 19:17:16Hm Interface, Radiology Results 09/20/2019 7:20 PM [...] canal narrowing.Stable spondylotic foraminal narrowing at L5-S1 bilaterally.[facility]-WPHYRRSHouston MethodistCT Cervical Spine Wo Ttwebvhp6492-74-75 19:13:36Hm Interface, Radiology Results 09/20/2019 7:16 PM [...] canal narrowing.IMPRESSION:No acute fractures of the cervical spine.[facility]-WPHYRRSHouston MethodistAmmonia level 2019-09-20 19:03:26 Test Item Value Reference Range Interpretation Comments Ammonia (test code = 1841-6) 19 umol/L 11-51 [place] MethodistCT Head Wo Ikmjlzvy4391-35-37 18:49:46Hm Interface, Radiology Results 09/20/2019 6:52 PM [...] air cells are clear.IMPRESSION:No acute intracranial abnormality identified.[id number] MethodistIonized abngtob4591-11-96 18:34:40 Test Item Value Reference Range Interpretation Comments pH (test code = 2753-2) 7.52 Ionized calcium (test code = 1.13 mmol/L 1.11-1.32 ) Yoo NjvvqgwcmFuyiumug3987-44-59 18:28:56 Test Item Value Reference Range Interpretation Comments Troponin (test code 0.013 ng/mL 0-0.04 In patie nts suspected = 94771-3) of having a alpa cardial infarction, eder [...] decreased by le ss than 0.020 ng/mL [facility] CenterBasic [facility] ofdnr5096-34-65 18:27:26 Test Item Value Reference Range Interpretation Comments Sodium (test code = 2951-2) 145 135- 148 mEq/L Potassium (test code = 2823-3) 3.5 3.5- 5.0 mEq/L Chloride (test code = 2075-0) 105 98- 112 mEq/L CO2 (test code = 8-9) 23 24- 31 mEq/L L Anion gap (test code = 23127-1) 17@ANIO 7- 15 mEq/L H BUN (test code = 3094-0) 9 mg/dL 8-23 Creatinine (test code = 2160-0) 0.76 mg/dL 0.5-0.9 Glucose (test code = 2345-7) 142 mg/dL 65-99 H Calcium (test code = 48466-7) 9.5 mg/dL 8.8-10.2 Lab Interpretation (test code = Abnormal 35317-5) Yoo MethodistMagnesium chqtv9123-06-94 18:27:26 Test Item Value Reference Range Interpretation Comments Magnesium (test code = 17764-5) 1.8 mg/dL 1.6-2.4 Yoo MethodistEstimated XUR5054-39-52 18:27:25 Test Item Value Reference Range Interpretation Comments Estimated GFR (test 82 mL/min/1.73 m2 [facility] Units code = 5488) InterpretationG 1 >=90 Normal or highG2 60-89 Mildly dbwvrwowjH2p 45-59 Mildly to mode rately mknxkgmxoP4a 30-44 Moderately to severely decreasedG4 15-29 Severely decre asedG5 <15 Kidn ey failureThe eGFR was calculated adam killian the Chronic Kidney Disease Epidemiology Co llaboration (CKD-EPI) equat ion. Interpretation is based on recommendations of the National Kidney Foundation-Kidn ey Disease Outcomes Qualit y Initiative (NKF-KDOQI) pub lished in 2014. Fredo MethodistPhosphorus tqloq5674-06-63 18:27:24 Test Item Value Reference Range Interpretation Comments Phosphorus (test code = 2777-1) 2.6 mg/dL 2.4-4.5 Fredo MethodistPartial thromboplastin time, dmhutprcf5452-76-13 18:15:11 Test Item Value Reference Range Interpretation Comments PTT (test code = 24.7 23.0- 36.0 [place] [address]-9) unfractionated heparin is61.0-112.0 se conds which corresponds to Anti-Xa0.3-0.7 U/ml. Fredo MethodistProthrombin time with JHH6683-22-15 18:13:49 Test Item Value Reference Range Interpretation Comments Prothrombin time (test 13.3 11.5- 14.5 sec code = 5902-2) INR (test code = 1.0 The Interna tional 74382-6) Normalized Rati o (INR) is a therapeutic m onitoring tool for patien ts who are stable on oral anticoagulant t herapy. An INR of 2.0-3.0 is suggested for d eep vein thrombosis/pulm onary embolism. [place] MethodistCBC with platelet and pdawyjasnajv3059-78-16 18:04:23 Test Item Value Reference Range Interpretation Comments WBC (test code = 27097-1) 13.52 4.50- 11.00 k/uL H RBC (test code = 81424-1) 4.10 m/uL 4.2-5.5 L HGB (test code = 718-7) 12.9 g/dL 12-16 HCT (test code = 4544-3) 39.3 % 37-47 MCV (test code = 787-2) 95.9 fL 82-100 MCH (test code = 785-6) 31.5 pg 27-34 MCHC (test code = 786-4) 32.8 g/dL 31-37 RDW - SD (test code = 42.5 fL 37-55 35185-4) MPV (test code = 99284-6) 10.4 fL 8.8-13.2 Platelet count (test code 229 150- 400 k/uL = 31733-6) Nucleated RBC (test code 0.00 /100 WBC = 29992-4) Neutrophils (test code = 78.5 % 39-69 H 32108-1) Lymphocytes (test code = 11.5 % 25-45 L 18599-9) Monocytes (test code = 9.4 % 0-10 66735-1) Eosinophils (test code = 0.0 % 0-5 93582-5) Basophils (test code = 0.2 % 0-1 95131-6) Immature granulocytes 0.4 % 0-1 "Immat ure (test code = 00351-9) granul ocytes" (promyelocytes, myelocytes, metamyelocytes) Lab Interpretation (test Abnormal code = 56515-8) 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 Interpretation (test Abnormal code = 13574-3) Fredo CsxvxqieuVahfad3899-26-68 15:59:28Douglas Gilmore MD 09/19/2019 4:00 PMAirwayPerformed by: Douglas Gilmore MDAuthorized by: Douglas Gilmore MD Duplicate noteHoubaldpate hospital GnzspfyjvVoxrpi4414-60-24 15:51:07 Douglas Gilmore MD 09/19/2019 3:59 PMAirwayDate/Time: [...] of Attempts at Approach: 2 Fredo MethodistArterial xeqq4583-19-92 15:50:10Douglas Gilmore MD 09/19/2019 3:51 PMArterial linePerformed [...] no immediate complicationsHouston MethodistXR Lumbar Spine 1 Gk2034-35-11 15:48:20 Hm Interface, Radiology Results 09/19/2019 3:51 PM CDTEXAMINATION: XR LUMBAR SPINE 1 VWCLINICAL HISTORY: Z98.890 Other specified postprocedural statesCOMPARISON: Lumbar radiograph 08/14/2019IMPRESSION:Single lateral intraoperative radiograph of the lumbar spine in bone and soft tissue filters demonstrates a posterior approach surgical instrument tip directed towards the L4-L5 level with tip projecting along the inferior aspect of the L4 spinous process.HMTW-8AS1327OHPKgwudjn MethodistCOVID BioRef (NCOVB)2019-09-13 13:20:03 Test Item Value Reference Range Interpretation Comments COVID BioRef Not Detected Not Detected Source Nasophar yngeal (NCOVB) SwabTesting per formed at (test code = [facility] [address]-5) [place] [address] NOTE: Ple ase consider re-collection o f a new specimen, if cl inically indicated. NOTE : The COVID-19 assay has been cleared by the U.S. Food and DrugAdministrat ion under the Emergency Use A uthorization (EUA). [facility] infirmaryyaima is designated as a high complexity labo [...] under the Emergency Use A uthorization (EUA). [facility] is designated as a high complexi ty laboratory by the Clinical Laboratory Improvement Nina ndments of 1987(CLIA) and is qualified to perform this te st. ASSAY INFORMATION: Re al Time RT-PCR (Reported 09/12 12:29) [place] MethodistComprehensive metabolic nxebu7672-87-74 13:47:39 Test Item Value Reference Range Interpretation Comments Sodium (test code = 142 135- 148 mEq/L 2951-2) Potassium (test code = 4.0 3.5- 5.0 mEq/L 2823-3) Chloride (test code = 100 98- 112 mEq/L 2075-0) CO2 (test code = 2027-9) 26 24- 31 mEq/L Anion gap (test code = 16@ANIO 7- 15 mEq/L H 96695-1) BUN (test code = 3094-0) 26 mg/dL 8-23 H Creatinine (test code = 0.90 mg/dL 0.5-0.9 2160-0) Glucose (test code = 111 mg/dL 65-99 H 2345-7) Calcium (test code = 10.5 mg/dL 8.8-10.2 H 36521-6) Protein (test code = 7.6 g/dL 6.3-8.3 -[place] n 2885-2) 4.6-7.0 g/dL1 week 4.4-7 .6 g/dL7 months-1y ear 5.1-7 .3 g/dL1-2 years 5.6-7 .5 g/dL>3 years 6.0-8 .0 g/jX40-456 6.3-8 .3 g/dL Albumin (test code = 4.0 g/dL 3.5-5 1751-7) A/G ratio (test code = 1.1 0.7-3.8 1759-0) Alkaline phosphatase 82 U/L 35-104 (test code = 6768-6) AST (test code = 1920-8) 20 U/L 10-35 ALT (test code = 1742-6) 17 U/L 5-50 Total bilirubin (test 0.3 mg/dL 0-1.2 code = 1975-2) Lab Interpretation (test Abnormal code = 15937-5) [place] MethodistIR Myelogram 2+Reg Incl Inj W S&I0056-30-05 14:46:39Hm Interface, Radiology Results 09/08/2019 2:49 PM [...] abnormalities.Mild blunting of the left C6 root sleeve.[facility]-[id number] MethodistCT Post Myelogram Kzgdevzn1522-46-36 12:41:37Hm Interface, Radiology Results 09/06/2019 12:44 PM [...] correlation for right C6 radiculopathy is recommended. [facility]-[id number] MethodistCT Post Myelogram Eysnil3288-23-36 12:39:59Addendum by Ally Leong MD on 09/06/2019 [...] impingement on the right L3 nerve root. [facility]-[id number] Children's Hospital Spine External Bjfdc4005-09-89 12:29:05This exam was not acquired at a [facility] facility and has not been interpreted by a [facility] Provider. The exam was imported into our imaging system.[facility] CenterXR Lum[facility] Spine Complete W Flex and Gqm6269-51-81 11:34:25Hm Interface, Radiology Results 08/14/2019 11:37 AM [...] the right upper quadrant.IMPRESSION:Degenerative changes without acute abnormality.[facility]-[id number] and approved by radiology re sident/fellow: Aaron Garcia, Marilyn Charles MD, personally reviewed the images and resident's/fellow's findings and agree with the final report.[place] MethodistXR Spine Scoliosos 2-3 Fixnk1171-83-01 11:11:25Hm Interface, Radiology Results 08/14/2019 11:14 AM [...] anterior plate and screw fixation and interbody graft.[id number] MethodistCOPY(IES) SENT TO:2019-06-07 05:40:00Copies/mLComment: TEVIN CARRASCO [address] [facility] [address] [place] [address] [facility] MethodistCOPY RECEIVED FROM:2019-06-07 05:40:00Copy received from:Comment: TEVIN [address] [facility] [address] [place] [address] [facility] NecngotprUUMCZZSLYO3536-22-06 18:52:002 Memorial JkolputPYMCBQWVPM8621-45-96 18:52:49979.20[facility] HermannHEMATOLOGY 2019-03-15 18:52:0062.60[facility] FpauzacGBYGCKMIDW6221-54-20 18:52:009[facility] ZlphwphPZHGAPUTDW5750-65-59 18:52:00 Test Item Value Reference Range Interpretation Comments Varicella IgM (test code = Varicella 0.69 1 IgM) [facility]annURINE AND DQLZA7673-54-89 21:21:00Negative (05/06/17 3:21 PM) [facility] TQFOP0283-15-15 21:21:00Negative (05/06/17 3:21 PM) [facility] WQGZX6727-42-62 21:21:00Negative *NA*(05/06/17 3:21 PM) [facility] CXXTE9401-08-02 21:21:00Negative (05/06/17 3:21 PM) [facility] PBCRU9363-86-15 21:21:001[facility]annURINE AND YANNW7245-37-27 21:21:002[facility]annURINE AND HLKGA1013-13-84 21:21:00 Yellow *NA*(05/06/17 3:21 PM)[facility] AND WXIZC1183-53-17 21:21:00 1.019[facility]annURINE AND FHMRS8197-21-93 21:21:005.0[facility]annUR[facility] AND HWCJL4843-76-46 21:21:00Slight *ABN*(05/06/17 3:21 PM)[facility] HermannCHEM QNDWI9666-18-98 20:57:15613Oibitdup HermannCHEM SKHEM9368-69-44 20:57:0042 Memorial AklsttpISOFRKGPKYKI2322-63-45 20:57:76990Zjvqkjkk HermannELECTROLYTES 2017-05-06 20:57:77286Jgjgxeda AdyvrygSICGMYOALQTW3997-22-88 20:57:004.0Memorial VrxheuhRORSCRRMDOPF5062-09-29 20:57:0041Memorial QcdztktDMLBVXTXFFHU6342-87-47 20:57:000.7Memorial SrbjcucDTPGSNEFNJLA8015-77-68 20:57:0082[facility] MHSVUFCFSTYO0093-98-91 20:57:001.0Memorial ChzgukoPKNBQNHNZSNA7972-09-54 20:57:0019Memorial UgnzazgROQXVMHTPCVK9399-39-88 20:57:0015[facility] EZEKETNOXSHH1045-26-52 20:57:004.1Memorial AqiaduoERRTLFDPTITJ6063-87-76 20:57:004.3Memorial SbimygyCJDFTSNTHGIK5897-97-71 20:57:0018[facility] QAUSDWOCLYUK1619-73-21 20:57:009.4Memorial QdevzusXGAXUPKNYFSK5884-65-95 20:57:008.4Memorial CyibciaSRDKEFSSRKRT3249-79-47 20:57:0027[facility] AJQKMMPUGZOI4040-27-99 20:57:0016.0Memorial EdvkwnkVZQFOVLGNMZN7773-73-95 20:57:001.36Memorial ZwpnbwhUKZCGUDDWVND6301-03-49 20:57:0024[facility] TFCYGRGUJEKM8473-32-50 20:57:0077Memorial YkvficgPELVGYLGUZ9838-69-36 20:57:00 2.3Memorial ScwxrueRTSYAEGVYC7345-64-89 20:57:000.8[facility] HermannHEMATOLOGY 2017-05-06 20:57:000.2Memorial NxqwxzlEUZOSLTHFD3882-47-74 20:57:000.4Memorial TtjbwccCHPJWFAGVS2296-71-28 20:57:006.4Memorial KqkudvoVBPVVXUPUF4936-83-83 20:57:0024.4Memorial ZeggpkmWQHUTRQZTD3342-38-58 20:57:008.1[facility] TQWAJPUYVZ3509-14-06 20:57:0066.9Memorial PbmqystRGWHHUCJWX9763-83-69 20:57:00 8.4Memorial YxhusiyOFLXVVHJXQ6533-89-69 20:57:50949Vpjencfi HermannHEMATOLOGY 2017-05-06 20:57:00 Test Item Value Reference Range Interpretation Comments MCH (test code = MCH) 32.4 pg 27.0-31.0 Memorial ZknllihQKAUXYJOYQ4984-70-90 20:57:0012.5[facility] HermannHEMATOLOGY 2017-05-06 20:57:0091.5Memorial KikkmpzJZBRCNKVKF3733-30-04 20:57:0035.4Memorial NxqizwxYDAUZCURLG7852-39-48 20:57:0042.5Memorial AbwqewkTIXZWPZAVJ2026-54-01 20:57:009.6Memorial CffdkqxMZDXGLQFXS9185-54-91 20:57:0015.1[facility] SDOHPANAZA3043-30-15 20:57:004.65Memorial WpgxdlgQDZUBGALZ0986-16-56 05:00:0095 Memorial KuddpguPOASXUZXE9541-96-71 05:00:0012.9[facility] HermannCHEMISTRY 2013-01-23 05:00:008.5Memorial GftslumCXLIGPAGR2156-43-80 05:00:0075Memorial KfhhxyiLSBEIIOEL6472-38-45 05:00:0028Memorial NcrbtqdVFJXRKROD4596-84-84 05:00:17412Ozrxhkwl SddbumgOPTBRWZER7124-64-93 05:00:003.9[facility] TXGCLKVOG8529-69-33 05:00:005[facility] GtomitvNDWNDLIYS7150-71-69 05:00:000.7 [facility] MfplgkxILJMISBHC0876-89-87 05:00:79137Tageagrf HermannHEMATOLOGY 2013-01-23 05:00:008.4[facility] LezhvzgEVXGDSHOUD1824-57-57 05:00:003.95[facility] UuqhovfYRFRDXCBMY1803-44-67 05:00:005.7[facility] NiamsasWODSKLZFBP5149-58-18 05:00:00 Test Item Value Reference Range Interpretation Comments MCH (test code = MCH) 33.0 pg 27.0-31.0 H [facility] PffqzmnVTNRRWNKDG6049-38-88 05:00:0037.4[facility] HermannHEMATOLOGY 2013-01-23 05:00:0013.0[facility] UbkzyghZJJZYATWBI6343-18-64 05:00:0094.8[facility] UcaomalDEICEDJBQI5941-33-67 05:00:0012.6[facility] OdmqdgmFVEZBPYRJV0886-20-86 05:00:0034.8[facility] BjyhhcbVKQCQLUBIM5226-44-96 05:00:94448Vyxiiumi Agus RUFUWVZEXU7539-12-63 05:00:0050.9[facility] ZkezfxkPXVZWIDGPR1824-19-78 05:00:00 36.5[facility] SlakssfMIRXUKGGHB2728-92-59 05:00:0010.0[facility] HermannHEMATOLOGY 2013-01-23 05:00:000.6[facility] KvqvghiSYCUSLNWGH9554-53-61 05:00:000.1[facility] UjecchwIYYRUPIREF7127-99-15 05:00:002.9[facility] QcbkffwHWRUPNTFRJ9801-00-65 05:00:002.1[facility] PlbenbeIQKHIHOYFF2368-54-50 05:00:002.2[facility] FWDPKDWWGB0492-56-50 05:00:000.4[facility] KdqhlonFUYDQJCBR1818-98-48 08:45:23403 [facility] BbznmutLFILYMCIN1390-71-90 08:45:003.1[facility] HermannCHEMISTRY 2013-01-22 08:45:001.0[facility] GkeflzmUQVMWUFST7369-76-28 08:45:004[facility] EqiyhprNKHQXTXUU1211-64-99 08:45:0011.9[facility] SsjqezyQBAOTTOQW8183-24-02 08:45:0095[facility] SvwllfkCDCBJODJG3070-42-42 08:45:0016[facility] Agus KZIHDRNBT0518-52-69 08:45:0026[facility] TpkmhraTQCXFYMUF3755-13-15 08:45:008.0 [facility] SxanajbBMCFTYPDB7727-58-89 08:45:006.1[facility] HermannCHEMISTRY 2013-01-22 08:45:000.5[facility] TpncjokRZFLFNNXW2232-92-68 08:45:000.7[facility] NofmdpyHOYZIZIJY7711-04-95 08:45:50932Bxcysciq AkoiyavQVAGCKWRS4604-92-04 08:45:55253Khtspggm RpbfkaaFETPOTPFL3799-40-07 08:45:003.9[facility] KHCWKKUJL7463-25-08 08:45:0020[facility] KpfhjcrMNCWLJGEV2287-06-78 08:45:003 [facility] LhkfptuOPNHMIPNX4554-10-54 08:45:52494Fnlhgcsr HermannCHEMISTRY 2013-01-22 08:45:0074[facility] RpyrcmzUSGFOLOIJ1897-77-23 08:45:003.0[facility] KmqitdsAWKYGDQLLA5794-23-92 08:45:000.1[facility] YirnyuaSMORROWLVP7804-09-06 08:45:000.3[facility] ExqmeetQWHVROMHMV7436-68-21 08:45:002.8[facility] WBDIMVFSIM5720-32-97 08:45:002.0[facility] JvxdlscZUDLVMNIWZ2288-25-92 08:45:000.6 [facility] OakyrbhXZDUDRHOZE7489-77-27 08:45:0035.5[facility]annHEMATOLOGY 2013-01-22 08:45:0011.0[facility] HtrdbnbSCXERRPQXI8824-49-97 08:45:002.1[facility] YameyfrOCVRZFMVRW0473-73-38 08:45:0051.1[facility] HnufunfSBNMFSWWJF8283-15-14 08:45:0015[facility] RcgwaliLTAOJHTGCK0906-26-28 08:45:0034.6[facility] TCVXHSAFAV1331-49-41 08:45:00 Test Item Value Reference Range Interpretation Comments MCH (test code = MCH) 32.8 pg 27.0-31.0 H [facility] QehmspxNFYQWZEJHJ5535-12-69 08:45:0012.3[facility] HermannHEMATOLOGY 2013-01-22 08:45:008.2[facility] SagdwfnDKAAHSWUOG4944-94-71 08:45:35751Dlghfdik WvfehajYTBFOVMELW8245-04-76 08:45:003.63[facility] FutrkaiPAXOZSXEZL5737-40-05 08:45:005.5[facility] KsubicwPOFVTOAOAE6149-24-33 08:45:0011.9[facility] AEXPCTCIRX8863-65-04 08:45:0034.5[facility] MtlijdaGHUKPQCLJI3911-00-67 08:45:00 94.9[facility] HermannTUMOR YFRYBBU9734-54-83 08:45:007.0[facility] HermannCHEMISTRY 2013-01-21 16:51:550.9[facility] DtoibceUBUREKYHC5963-34-33 16:51:0095[facility] ZbbyuopTRMONRKTB0970-64-98 16:51:004.1[facility] TylyqoeUALXDUWMR5532-66-96 16:51:98864Cjbvnuiu BbirucuRULQNZNLU1932-61-00 16:51:68885Kipkzyme Agus DUJHVLUOB3929-82-25 16:51:50177Zozaldom VmoyliyRMPKVLBGZ5108-33-86 16:51:007 [facility] ZjwsbjfSZUTRWFHV3517-39-20 16:51:0025[facility] HermannCHEMISTRY 2013-01-21 16:51:008.2[facility] NztzazeWLLYSETBL1136-06-44 16:51:000.7[facility] OtxkgrtZLTYJZUZP1647-27-90 16:51:0012.1[facility] AsbzkgvLJSTFRFGQ3033-93-80 16:51:001.38[facility] WboqjtdQFCZTBONO6003-09-18 07:55:001.8[facility] JPTIQVRJY9388-17-86 07:55:92311Xrivfngx AemadqpKEYYIHNKQ0238-03-41 07:55:0066 [facility] VnnqbhmSPSTRKGLO6341-16-16 07:55:0018[facility] HermannCHEMISTRY 2013-01-21 07:55:002.9[facility] QjytnyvRLYEFOXNP8895-04-23 07:55:0024[facility] WmrxovhMMTIAXQNK6685-92-63 07:55:000.7[facility] PtuchixRQWGNXOHJ2643-37-73 07:55:005.7[facility] MvogrovTQIIPIRVJ3377-96-88 07:55:0022[facility] INUUAIEDC3558-70-63 07:55:001.0[facility] WzwnznkOAYSXYFJN2378-24-75 07:55:002.8 [facility] WsmcyetKBCYCJGPBV7889-61-87 07:55:008.6[facility]annHEMATOLOGY 2013-01-21 07:55:0023.8[facility] EjazvsvQSJOZUJTTK5130-77-30 07:55:000.6[facility] AllmedfAVCDTAEEZU8984-46-62 07:55:0066.4[facility] TxobktkTPKMYIYBEN9814-47-11 07:55:000.8[facility] RzjgfzaLYEDGKHCBE8820-51-47 07:55:002.1[facility] JANUOJZGCQ8016-97-74 07:55:000.6[facility] UldnltnCSCSWJPXTF7764-25-90 07:55:005.9 [facility] NydgnbaQNVDFKZIFT6173-31-72 07:55:000.1[facility] HermannHEMATOLOGY 2013-01-21 07:55:000.1[facility] UsdlueyTKPXNJIAXM5196 07:55:0012.7[facility] IyircihYVREAUODJE2324-60-38 07:55:0034.1[facility] GwdqrimYMGBVKWVPI1730-07-65 07:55:0095.7[facility] RxclgdlNBOCDDJSXE4266-38-87 07:55:0011.5[facility] KVYBSAERQY6368-04-74 07:55:0033.6[facility] QwbsnmyRTLNNZRHIT8919-67-66 07:55:00 Test Item Value Reference Range Interpretation Comments MCH (test code = MCH) 32.6 pg 27.0-31.0 H [facility] RferrmrQDIQYQFZEP8420-32-68 07:55:008.5[facility] HermannHEMATOLOGY 2013-01-21 07:55:34078Ixlxgtdm KzuvvooWPGNLKHOHM5594-94-47 07:55:003.52[facility] ZlczdrmZPHEMLTXRH8230-86-79 07:55:008.9[facility] RxckndpWZEXLLVEYH1487-42-51 04:30:05Performed (01/19/2013 23:30:05)[facility] SnfktcrVLXZGOIPAW4931-95-23 04:30:05None Seen (01/19/2013 23:30:05)[facility]villeCaxhiocUYBODJQLPG9120-71-06 04:30:05Few /LPF (01/19/2013 23:30:05)[facility]villeSrazhtzQMZAXIEPMV9977-39-16 04:30:05None Seen (01/19/2013 23:30:05)[facility]villeEfgdpujWSYMYIMDKZ3158-65-10 04:30:05Negative (01/19/2013 23:30:05)[facility]villeNdfkhoqSVTHILAFLR0728-80-39 04:30:050.2[facility] HvpzqnxJNLMUKMGPW3481-88-23 04:30:05Negative *NA*(01/19/2013 23:30:05)[facility] GreenvilleLrcqcxpLBJWKQHTIC9851-40-10 04:30:05Negative (01/19/2013 23:30:05)[facility] GreenvilleUucypmcRSNWGWXANP4215-00-75 04:30:05Negative (01/19/2013 23:30:05)[facility]villeDqzvbqyQIAKHGCKHP2255-04-70 04:30:05Negative mg/dL (01/19/2013 23:30:05)[facility]villePvzqtaqTHAMAJXRJE6926-06-27 04:30:05Negative mg/dL *NA*(01/19/2013 23:30:05)[facility]DpuxwfpGGTHXFVYUD9709-05-89 04:30:05 Test Item Value Reference Range Interpretation Comments UA pH (test code = UA pH) 8.0 1 5.0-8.0 N [facility] GreenvilleEmwuriuZQFPQVTAUO6302-13-35 04:30:05Negative mg/dL (01/19/2013 23:30:05)[facility] ChildrenQdghwnjMZNOYTBGTH3509-18-62 04:30:05Clear (01/19/2013 23:30:05)[facility] PlvlitnIXKVMXNFUS0114-58-63 04:30:05 Test Item Value Reference Range Interpretation Comments UA Spec Grav (test code = UA Spec 1.015 1 N Grav) [facility] QwswcvrTJACXHKOGJ5820-56-35 04:30:05Yellow *NA*(01/19/2013 23:30:05) [facility] YzpmgfpLLYMQLRKU0339-61-79 03:30:53962Ehdubqwk HermannCHEMISTRY 2013-01-20 03:30:007.3[facility] WjsicqmNCQDIILPF0220-14-53 03:30:000.5[facility] EhbndxnDICXIQUOL4317-17-12 03:30:003.8[facility] CwscwznFQFIHCVKR0388-30-90 03:30:0030[facility] LbmxeiiQNPQMOYKW5262-61-71 03:30:0081[facility] NNQHAZCTO2458-66-00 03:30:000.1[facility] BfuaesmVHYJYEPYF4980-04-05 03:30:0023 [facility] WwogchkEEYZUIVCJ7257-57-84 03:30:003.5[facility] HermannCHEMISTRY 2013-01-20 03:30:001.1[facility] MijezupWDPDDGJDL3514-98-27 03:30:000.4[facility] ZsbtjdwQNHMCILJUC3275-27-77 03:30:000.1[facility]
[2019-11-16 11:17] LABS: BUN Blood Urea Nitrogen 19 mg/dL (7-18); Bicarbonate 24 mmol/L (21-32); Glucose Level 106 mg/dL (74-106); Potassium 3.7 mmol/L (3.5-5.1); Sodium Level 143 mmol/L (136-145); Troponin (Emerg Dept Use Only) < 0.02 ng/mL (0.0-0.045)
--- NOTE | 2019-11-16 11:58 | RAD REPORT ---
EXAM DESCRIPTION: RAD - Chest Single View - 11/16/2019 11:40 am CLINICAL HISTORY: DYSPNEA COMPARISON: Portable November 03 TECHNIQUE: AP portable chest image was obtained 11/16/2019 11:40 am . FINDINGS: Lung volumes are similar to comparison. Right midlung field opacification has partially re solved. No new lung parenchymal process. No failure or volume overload. Heart and vasculature are normal. No measurable pleural effusion and no pneumothorax. No acute bony abnormality seen. No acute aortic findings suspected. IMPRESSION: Partial clearing of right mid lung field opacification that was believed to be pulmonary hemorrhage from prior pulmonary embolism. No new or progressive finding.
--- NOTE | 2019-11-16 12:12 | RAD REPORT ---
EXAM DESCRIPTION: CT - Chest For Pe Angio - 11/16/2019 11:47 am CLINICAL HISTORY: recent PE, feels worse COMPARISON: Chest For Pe Angio dated 11/02/2019; Chest For Pe Angio dated 10/30/2019 TECHNIQUE: Dynamically enhanced 3 mm thick images of the chest were obtained during administration o f approximately 150mL Isovue 370 IV contrast. Coronal and oblique MIP reconstruction images were gene rated and reviewed. Exam utilizes a protocol to evaluate the pulmonary arterial tree. All CT scans are performed using dose optimization technique as appropriate and may include automated exposure control or mA/KV adjustment according to patient size. FINDINGS: Right middle lobe pulmonary embolism has resolved since the prior imaging. The right lower lobe pulmonary embolic disease has shown continued reduction. There is some remnant thrombus still p resent. No new pulmonary embolic disease. The aorta as imaged shows no acute or suspicious finding. No pericardial thickening or effusion. The superior segment right lower lobe pulmonary hemorrhage has a more consolidated appearance with de crease in overall diameter. No cavitation. No new or progressive lung parenchymal process. No pleural effusion or pleural thickening. No mediastinal or hilar suspicious masses. No chest wall masses or abnormal axillary lymphadenopathy. IMPRESSION: Continued resolution of the pulmonary embolic disease detailed on prior imaging studies. There is no new or progressive pulmonary embolism. Partial resolution of the right lower lobe pulmonary hemorrhage detailed on the prior studies. No new or progressive lung parenchymal process.
--- NOTE | 2019-11-16 13:08 | EDPHYS ---
Physician Documentation [facility] Name: Haley Porter Age: 63 yrs Sex: Female : 1955 Arrival Date: 11/16/2019 Time: 10:19 Bed 6 Private MD: ED Physician Jatin Greenberg HPI: 11/15 12:10 This 63 yrs old Female presents to ER via Wheelchair with complaints of rn Breathing Difficulty. 12:10 The patient has shortness of breath at rest, with light activity. rn 12:10 Onset: The symptoms/episode began/occurred yesterday. Duration: The symptoms are rn continuous. The patient's shortness of breath is aggravated by nothing, is alleviated by focusing on her breathing. Severity of symptoms: At their worst the symptoms were moderate in the emergency department the symptoms have improved. The patient has experienced similar episodes in the past. Reports multiple visits recently after diagnosed with PE, last 2 visits showed improvement of pulmonary hemorrhage assoc with PE, is taking blood thinners, returns today because having trouble breathing once again since yesterday, doesn't know what is causing it, assoc with lightheadedness and tingling of extremities. Reports rapid breathing that she can control when tries to slow it down, but then feels like might forget to breath, so allows herself to breath fast again. No hemoptysis. No fever. Does not feel ill. Has appt this afternoon with Dr. Alonzo.. Historical: - Allergies: 10:33 Morphine; ca1 10:33 Valium; ca1 10:33 Versed; ca1 10:33 Oral steroids; ca1 - Home Meds: 10:39 omeprazole 20 mg Oral TbEC daily [Active]; quinapril 20 mg Oral tab 1 tab once daily iw [Active]; Lyrica 100 mg Oral cap 1 cap four times a day [Active]; oxycodone-acetaminophen 10-325 mg Oral tab 1 tab every 6 hours [Active]; Eliquis 5 mg oral tab 2 times per day [Active]; Linzess 290 mcg Oral cap 2 cap as needed [Active]; clorazepate dipotassium 7.5 mg Oral tab 1 tab daily [Active]; - PMHx: 10:33 Anxiety; Hypertension; Pancreatitis; pulmonary emboli; TMJ; ca1 - Immunization history:: Adult Immunizations not up to date. - Social history:: Smoking status: Patient denies any tobacco usage or history of. - Family history:: not pertinent. - Hospitalizations: : Patient was recently seen at. ROS: 12:10 Constitutional: Negative for fever, chills, and weight loss, Eyes: Negative for injury, rn pain, redness, and discharge, Neck: Negative for injury, pain, and swelling, Cardiovascular: Negative for palpitations, and edema, Respiratory: Negative for wheezing, and pleuritic chest pain, Abdomen/GI: Negative for abdominal pain, nausea, vomiting, diarrhea, and constipation, MS/Extremity: Negative for injury and deformity, Skin: Negative for injury, rash, and discoloration, Neuro: Negative for headache, weakness, numbness, tingling, and seizure. Exam: 12:01 ECG was reviewed by the Attending Physician. rn 12:10 Constitutional: This is a well developed, well nourished patient who is awake, alert, rn hyperventilating Head/Face: Normocephalic, atraumatic. ENT: No stridor, MMM, no swelling, uvula midline and without swelling. Cardiovascular: Regular rate and rhythm. No pulse deficits. Respiratory: + tachypnea, able to slow down breathing, no stridor or wheezing Abdomen/GI: soft, non-tender Skin: Warm, dry MS/ Extremity: Pulses equal, no cyanosis. Neurovascular intact. Full, normal range of motion. Equal circumference. Neuro: Awake and alert, GCS 15, oriented to person, place, time, and situation. Cranial nerves II-XII grossly intact. Motor strength 5/5 in all extremities. Sensory grossly intact. Cerebellar exam normal. Vital Signs: 10:30 BP 172 / 96; Pulse 74; Resp 26 S; Temp 99.6(TE); Pulse Ox 97% on R/A; ca1 10:39 Weight 80.74 kg; Height 5 ft. 6 in. (167.64 cm); iw 11:00 BP 152 / 78; Pulse 74; Resp 20; Pulse Ox 94% ; bp 12:00 BP 162 / 91; Pulse 95; Resp 20; Pulse Ox 96% ; bp 13:00 BP 155 / 78; Pulse 65; Resp 20; Pulse Ox 100% ; bp 10:39 Body Mass Index 28.73 (80.74 kg, 167.64 cm) iw MDM: 10:24 Patient medically screened. rn 13:06 Differential diagnosis: Pulmonary Embolism PE, anxiety, infection. Data reviewed: vital rn signs, nurses notes, lab test result(s), EKG, radiologic studies, CT scan, plain films, and as a result, I will discharge patient. Counseling: I had a detailed discussion with the patient and/or guardian regarding: the historical points, exam findings, and any diagnostic results supporting the discharge/admit diagnosis, lab results, radiology results, the need for outpatient follow up, to return to the emergency department if symptoms worsen or persist or if there are any questions or concerns that arise at home. Response to treatment: the patient's symptoms have mildly improved after treatment, and as a result, I will discharge patient. Special discussion: I discussed with the patient/guardian in detail that at this point there is no indication for admission to the hospital. It is understood, however, that if the symptoms persist or worsen the patient needs to return immediately for re-evaluation. 11/15 10:33 Order name: CBC with Diff; Complete Time: 11:20 rn 11/15 10:33 Order name: Basic Metabolic Panel; Complete Time: 11:20 rn 11/15 10:33 Order name: XRAY Chest (1 view); Complete Time: 12:06 11/15 10:33 Order name: Troponin (emerg Dept Use Only); Complete Time: 11:20 11/15 10:35 Order name: Protime (+inr); Complete Time: 11:20 11/15 10:35 Order name: Ptt, Activated; Complete Time: 11:20 11/15 10:33 Order name: IV Start; Complete Time: 11:23 11/15 10:33 Order name: EKG; Complete Time: 10:33 rn 11/15 10:33 Order name: EKG - Nurse/Tech; Complete Time: 11:59 rn 11/15 11:20 Order name: CT Chest For PE Angio; Complete Time: 13:08 rn EC:01 Rate is 65 beats/min. Rhythm is regular. QRS [place] is Normal. MS interval is normal. QRS rn interval is normal. QT interval is normal. No Q waves. T waves are Normal. No ST changes noted. Clinical impression: Normal ECG. Interpreted by me. Reviewed by me. Administered Medications: No medications were administered Disposition: 11/16/19 13:07 Discharged to Home. Impression: Dyspnea, unspecified, Anxiety disorder, unspecified. - Condition is Stable. - Discharge Instructions: Pulmonary Embolism, Shortness of Breath, Generalized Anxiety Disorder. - Prescriptions for buspirone 5 mg Oral tablet - take 1 tablet by ORAL route 3 times per day; 60 tablet. - Medication Reconciliation Form, Thank You Letter, Antibiotic Education, Prescription Opioid Use form. - Follow up: Private Physician; When: As needed; Reason: Recheck today's complaints, Re-evaluation by your physician. - Problem is an ongoing problem. - Symptoms have improved. Signatures: Dispatcher [employer] EDMS Mya Toth RN RN iw Jatin Greenberg MD MD rn Acob, TRAV Tavarez RN ca1 Corrections: (The following items were deleted from the chart) 13:34 13:07 11/16/2019 13:07 Discharged to Home. Impression: Dyspnea, unspecified; Anxiety iw disorder, unspecified. Condition is Stable. Forms are Medication Reconciliation Form, Thank You Letter, Antibiotic Education, Prescription Opioid Use. Follow up: Private Physician; When: As needed; Reason: Recheck today's complaints, Re-evaluation by your physician. Problem is an ongoing problem. Symptoms have improved. rn
--- NOTE | 2019-11-16 13:08 | ER ---
Nurse's Notes [facility] Name: Haley Porter Age: 63 yrs Sex: Female : 1955 Arrival Date: 11/16/2019 Time: 10:19 Bed 6 Private MD: Diagnosis: Dyspnea, unspecified;Anxiety disorder, unspecified Presentation: 11/15 10:30 Chief complaint: Patient states: Diagnosed with 3 blood clots in lungs on the October. Difficulty breathing and SOB with exertion started yesterday, woke up this morning with worsening SOB. Onset of symptoms was November 16, 2019. 10:30 Method Of Arrival: Wheelchair ca1 10:30 Acuity: RADHA 2 ca1 Triage Assessment: 10:35 General: Appears distressed, comfortable, Behavior is agitated, anxious, crying. Pain: bp Denies pain. EENT: No deficits noted. Neuro: No deficits noted. Cardiovascular: Rhythm is sinus rhythm. Respiratory: Reports shortness of breath Onset: The symptoms/episode began/occurred just prior to arrival, the patient has mild shortness of breath. GI: No signs and/or symptoms were reported involving the gastrointestinal system. : No signs and/or symptoms were reported regarding the genitourinary system. Derm: No deficits noted. Musculoskeletal: No deficits noted. Historical: - Allergies: 10:33 Morphine; ca1 10:33 Valium; ca1 10:33 Versed; ca1 10:33 Oral steroids; ca1 - Home Meds: 10:39 omeprazole 20 mg Oral TbEC daily [Active]; quinapril 20 mg Oral tab 1 tab once daily iw [Active]; Lyrica 100 mg Oral cap 1 cap four times a day [Active]; oxycodone-acetaminophen 10-325 mg Oral tab 1 tab every 6 hours [Active]; Eliquis 5 mg oral tab 2 times per day [Active]; Linzess 290 mcg Oral cap 2 cap as needed [Active]; clorazepate dipotassium 7.5 mg Oral tab 1 tab daily [Active]; - PMHx: 10:33 Anxiety; Hypertension; Pancreatitis; pulmonary emboli; TMJ; ca1 - Immunization history:: Adult Immunizations not up to date. - Social history:: Smoking status: Patient denies any tobacco usage or history of. - Family history:: not pertinent. - Hospitalizations: : Patient was recently seen at. Screenin:52 Abuse screen: Denies threats or abuse. Denies injuries from another. Nutritional bp screening: No deficits noted. Tuberculosis screening: No symptoms or risk factors identified. Fall Risk None identified. Assessment: 10:35 General: SEE TRIAGE NOTE. Cardiovascular: Rhythm is sinus rhythm. Respiratory: Airway bp is patent Respiratory effort is even, unlabored, Respiratory pattern is hyperventilation Breath sounds are clear bilaterally. 12:00 Reassessment: PT RETURNED FROM CT. INSISTING ON USING BEDPAN RATHER THAN AMBULATING TO bp RESTROOM. 13:00 Reassessment: MD AT B/S FOR RE-EVAL. bp Vital Signs: 10:30 BP 172 / 96; Pulse 74; Resp 26 S; Temp 99.6(TE); Pulse Ox 97% on R/A; ca1 10:39 Weight 80.74 kg; Height 5 ft. 6 in. (167.64 cm); iw 11:00 BP 152 / 78; Pulse 74; Resp 20; Pulse Ox 94% ; bp 12:00 BP 162 / 91; Pulse 95; Resp 20; Pulse Ox 96% ; bp 13:00 BP 155 / 78; Pulse 65; Resp 20; Pulse Ox 100% ; bp 10:39 Body Mass Index 28.73 (80.74 kg, 167.64 cm) iw ED Course: 10:19 Patient arrived in ED. ag5 10:24 Trey Peñaloza, RN is Primary Nurse. bp 10:24 Jatin Greenberg MD is Attending Physician. rn 10:32 Triage completed. ca1 10:33 Arm band placed on right wrist. ca1 10:50 Inserted saline lock: 22 gauge in right forearm, using aseptic technique. Blood bp collected. 10:52 Patient has correct armband on for positive identification. Bed in low position. Call bp light in reach. Side rails up X2. 11:40 XRAY Chest (1 view) In Process Unspecified. EDMS 11:47 CT Chest For PE Angio In Process Unspecified. EDMS Administered Medications: No medications were administered Outcome: 13:07 Discharge ordered by MD. rn 13:34 Discharged to home via wheelchair, with family. iw 13:34 Condition: good 13:34 Discharge instructions given to patient, Instructed on discharge instructions, follow up and referral plans. medication usage, Demonstrated understanding of instructions, follow-up care, medications, Prescriptions given X 1. 13:34 Patient left the ED. iw Signatures: Dispatcher [employer] Mya Almeida, Jatin Stiles RN, MD MD rn Peltier, Brian, RN RN bp Acob, Cheryl, RN RN Virgen Harvey ag5
[2019-11-16 15:30] VITALS: TEMP 99.6
[2019-11-16 15:34] VITALS: BP 155/78; O2SAT 100
== END 2019-11-16 13:34 | disposition home or self-care (01) ==
LOC: ER 10:17
DX: F41.9 Anxiety disorder, unspecified (principal); R06.00 Dyspnea, unspecified; I10 Essential (primary) hypertension; Z86.711 Personal history of pulmonary embolism; Z79.01 Long term (current) use of anticoagulants
CPT/HCPCS: 93005; 85025; 80048; 36415; 85610; 85730; 84484; 71275; 71045; 99284; Q9967

== ENCOUNTER 2020-01-07 12:14 | Emergency (ER) | payer OTHER ==
--- OUTSIDE RECORDS SUMMARY | 2020-01-07 12:17 | XMS REPORT | Clinical Summary ---
:1955 Author Organization [facility] Address [address] [place] [address] Care Team Providers Name Role Phone Nayla [...] Bedtime, # 180 tab, 3 Refill(s), Pharmacy: [facility]/pharmacy #[id number] buprenorphine (BELBUCA) 150 0 10/20/19 Discontinued 150 [...] Team Description 10/19/2019 Office Visit Neurosurgery Triston Neol Follow-up exami nation following surgery (Primary Dx); [...] 09/11/2019 Travel 09/08/2019 Telephone Radiology Torrie Cobb [employer]VAS CUTTER HAND 09/06/2019 Hospital Encounter Radiology Triston Noel Thoracic [...] Lumbar stenosis with neurogenic claudication (Primary Dx); APPLIED PSYCHOLOGY TEACHER Radiculopathy o f thoracic region 08/22/2019 Orders Only Neurosurgery Wanda Cotter, Thoracic radicu lopathy (Primary Dx); APPLIED PSYCHOLOGY TEACHER Spinal stenosis of lumbar region, unspecified whether [...] 08/07/2019 Travel 08/02/2019 Abstract Neurosurgery Wanda Cotter, APPLIED PSYCHOLOGY TEACHER 07/27/2019 Travel 07/04/2019 Office Visit Cardiology Ibis Torres Essential hyper tension (Primary Dx); MD Danitza Claudication (H CC) 07/04/2019 Orders Only Triston Brown Lumbar radiculo tr MD Chel (Primary Dx) 06/06/2019 Lab Lab Ibis Torres PAD (peripheral R., MD artery disease) (HCC) 06/06/2019 Office Visit Cardiology Ibis Torres PAD (peripheral artery disease) (HCC) (Primary Dx); MD Danitza Bilateral carot id artery stenosis after 01/06/2019 Family History Medical History Relation Name Comments [...] Health Maintenance Due Date Last Done Comments BREAST CANCER SCREENING 12/10/2003 COLONOSCOPY SCREENING 12/10/2003 SHINGLES VACCINES (#1) 12/10/2003 65+ PNEUMOCOCCAL VACCINE (1 of 2 - PCV13) 2018 INFLUENZA VACCINE 02/01/2020 Implants Implanted Type Area Manager Of Tires Sales Device Shelf Model / Identifier Expiration Serial / Date Lot System Spine Selnt For Dural Selng Exact 5ml Duraseal - [id number] Cardiovascular N/A: [employer] [id number] / Implanted: Qty: 1 on 09/19/2019 by Triston Noel MD at [facility] Implants N/A [employer] / NEURO [id number] Procedures Procedure Name Priority Date/Time Associated Diagnosis [...] procedure are i n the results section. [place] AN ELECTIVE Routine 09/19/2019 3:51 Results f [...] neurogenic claudication Case Notes EXTENDED RECOVERY NEEDED, MA CROSCOPE, KARISHMA FRAME Special Needs EXTENDED RECOVERY NEEDED, MA CROSCOPE, KARISHMA FRAME SURGICAL PATHOLOGY Routine 09/19/2019 [...] (peripheral Res ults for this BILATERAL AM COMPUTER SYSTEMS SECURITY ANALYST artery disease) ([facility]) proced ure are in the results section. CT ANGIOGRAM Routine 06/06/2019 5:02 PAD (peripheral Results for this ABDOMINAL AORTA AND PM COMPUTER SYSTEMS SECURITY ANALYST artery disease) ([facility]) procedure are in BILATERAL ILIOFEMORAL the re sults RUNOFF W WO CONTRAST section . ESTIMATED GFR Routine 06/06/2019 3:21 Results fo r this PM COMPUTER SYSTEMS SECURITY ANALYST procedure are i n the results section. POC CREATININE Routine 06/06/2019 3:21 Results f or this PM COMPUTER SYSTEMS SECURITY ANALYST procedure are i n the results section. COPY RECEIVED FROM: Routine 06/06/2019 11:02 Resu lts for this AM COMPUTER SYSTEMS SECURITY ANALYST procedure are i n the results section. COPY(IES) SENT TO: Routine 06/06/2019 11:02 Resul ts for this AM COMPUTER SYSTEMS SECURITY ANALYST procedure are i n the results section. BASIC METABOLIC PANEL Routine 06/06/2019 11:02 PAD (peripheral Results for this AM COMPUTER SYSTEMS SECURITY ANALYST artery disease) ([facility]) proced ure are in the results section. ECG 12-LEAD Routine 06/06/2019 9:55 Bilateral carotid Result s for this AM COMPUTER SYSTEMS SECURITY ANALYST artery stenosis procedure ar e in the results section. MRI SPINE EXTERNAL Routine 03/06/2019 3:47 Resul ts for this STUDY PM COMPUTER SYSTEMS SECURITY ANALYST procedure are i n the results section. after 01/06/2019 Results Urine culture (09/20/2019 7:30 PM CDT) Pathologist Sig nature Urine culture SEE COMMENTComment: [facility] Bacteriuria screen HOSPITAL negative. Specimen Performing Organization Address City/State/Zipcode Phone Number [facility] DEPARTMENT OF PATHOLOGY AND [address], [place] [address] GENOM[address] [address] [address] Cervical Spine Wo Contrast (09/20/2019 6:46 [...] acute fractures of the cervical spine . [facility] Procedure Note Interface, Radiology Results Incoming 09/20/2019 7:16 PM CDT EXAMINATION: CT CERVICAL [...] acute fractures of the cervical spine . [facility] Performing Organization Address City/State/Zipcode Phone Number [facility] [address] [place] [address] CT Head Wo Contrast (09/20/2019 6:45 PM [...] IMPRESSION: No acute intracranial abnormality identi fied. [id number] Procedure Note Interface, Radiology Results Incoming - [...] IMPRESSION: No acute intracranial abnormality identi fied. [id number] Performing Organization Address [facility]/Zipcode Phone Number [facility] [address] [place] [address] CT Lumbar Spine Wo Contrast (09/20/2019 6:43 [...] spondylotic foraminal narrowing a t L5-S1 bilaterally. [id number] Procedure Note Hm Interface, Radiology Results Incoming - 09/20/2019 7:20 [...] spondylotic foraminal narrowing a t L5-S1 bilaterally. [id number] Performing Organization Address [facility]/Zipcode Phone Number [facility] [address] [place] [address] CBC with platelet and differential (09/20/2019 5:36 PM CDT)Only the most recent of2 resultswithin the time period is included. WBC 13.52 (H) 4.50 - 11.00 [facility] k/uL HOSPITAL RBC 4.10 (L) 4.20 - 5.50 [facility] m/uL HOSPITAL HGB 12.9 12.0 - 16.0 [facility] g/dL [facility] HCT 39.3 37.0 - 47.0 % [facility] MCV 95.9 82.0 - 100.0 [facility] MCH 31.5 27.0 - 34.0 pg [facility] MCHC 32.8 31.0 - 37.0 [facility] gdL [facility] RDW - SD 42.5 37.0 - 55.0 fL [facility] MPV 10.4 8.8 - 13.2 fL [facility] Platelet count 229 150 - 400 k/uL [facility] Nucleated RBC 0.00 /100 WBC [facility] Neutrophils 78.5 (H) 39.0 - 69.0 % [facility] Lymphocytes 11.5 (L) 25.0 - 45.0 % [facility] Monocytes 9.4 0.0 - 10.0 % [facility] Eosinophils 0.0 0.0 - 5.0 % [facility] Basophils 0.2 0.0 - 1.0 % [facility] Immature granulocytes 0.4Comment: 0.0 - 1.0 % [facility] "[facility] granulocytes" (promyelocytes , myelocytes, metamyelocytes ) Specimen Blood Performing Organization Address City/State/Zipcode Phone Number [facility] DEPARTMENT OF PATHOLOGY AND [address] [place] [address] [phone] [address] Ammonia level (09/20/2019 5:36 PM CDT) Pathologist Sig nature Ammonia 19 11 - 51 umol/L [facility] Specimen Blood Performing Organization Address City/[facility]/Zipcode Phone Number [facility] DEPARTMENT OF PATHOLOGY AND [address] [place] [address] [phone] [address] Urinalysis screen and microscopy, with reflex to culture (09/20/2019 5:30 PM CDT) Specimen site Clean catch [facility] Color, UA Straw [facility] Appearance, UA Clear [facility] Specific gravity, UA 1.003 1.001 - 1.035 [facility] pH, UA 7.0 5.0 - 8.5 [facility] Protein, UA Negative Negative [facility] Glucose, UA Negative Negative [facility] Ketones, UA Negative Negative [facility] Bilirubin, UA Negative Negative [facility] Blood, UA Negative Negative [facility] Nitrite, UA Negative Negative [facility] Urobilinogen, UA <2.0 <2.0 [facility] Leukocyte esterase, Negative Negative [facility] Epithelial cells, UA 5 /HPF [facility] WBC, UA 1 0 - 4 /HPF [facility] RBC, UA 1 0 - 5 /HPF [facility] Bacteria, UA Few None seen [facility] Yeast, UA None seen [facility] Yeast with None seen [facility] pseudohyphae, HOSPITAL Specimen Urine Performing Organization Address City/State/Zipcode Phone Number [facility] DEPARTMENT OF PATHOLOGY AND [address] [place] [phone] GENOMIC MEDICINE [address] [address] Urine drugs of abuse screen (09/20/2019 5:30 PM CDT) Amphetamine screen, Negative [facility] urine [facility] Barbiturate screen, Negative [facility] urine [facility] Benzodiazepine Negative [facility] screen, urine [facility] Cocaine screen, urine Negative [facility] Methadone metabolite Negative [facility] (EDDP), urine [facility] Opiates screen, urine Negative [facility] Oxycodone screen, Positive (A) [facility] urine [facility] Phencyclidine screen, Negative [facility] urine [facility] Tricyclic screen, Negative [facility] urine [facility] Cannabinoid screen, Negative [facility] urine Comment: JAIN Drug screen minimum concentration of detectability HOSPITAL [...] Urine Performing Organization Address City/State/Zipcode Phone Number [facility] DEPARTMENT OF PATHOLOGY AND [address], [place] [address] [address] Estimated GFR (09/20/2019 5:20 PM CDT)Only the [...] published in 2014. Specimen Performing Organization Address City/[facility]/Zipcode Phone Number [facility] DEPARTMENT OF PATHOLOGY AND [address] [place] [address] [phone] [address] Troponin (09/20/2019 5:20 PM CDT) Troponin 0.013 [...] 0.020 ng/mL Specimen Blood Performing Organization Address [facility] Phone Number [facility] DEPARTMENT OF PATHOLOGY AND [address] [place] [phone] Partial thromboplastin time, activated (09/20/2019 5:20 PM CDT) Pathologist [facility] PTT 24.7 23.0 - 36.0 [facility] Comment: [facility] PTT therapeutic range for unfractionated heparin is 61.0-112.0 seconds which corresponds to Anti-Xa 0.3-0.7 U/ml. Specimen Blood Performing Organization Address [facility] Phone Number [facility] DEPARTMENT OF PATHOLOGY AND [address] [place] [address] [place] [phone] Prothrombin time with INR (09/20/2019 5:20 PM CDT) [facility] Prothrombin time 13.3 11.5 - 14.5 [facility] INR 1.0 [facility] Comment: JAIN The International Normalized Ratio (INR) is a [facility] HOSPITAL monitoring tool for patients who are stable on oral anticoagulant therapy. An INR of 2.0-3.0 is suggested for deep vein thrombosis/pulmonary embolism. Specimen Blood Performing Organization Address [facility] Centercode Phone Number [facility] DEPARTMENT OF PATHOLOGY AND [address] [place] [phone] [place] [phone] Phosphorus level (09/20/2019 5:20 PM CDT) Pathologist [facility] nature Phosphorus 2.6 2.4 - 4.5 mg/dL [facility] L Specimen Blood Performing Organization Address [facility] Cent[facility]ode Phone Number [facility] DEPARTMENT OF PATHOLOGY AND [address] [place] [address] [phone] [address] Magnesium level (09/20/2019 5:20 PM CDT) Pathologist Sig [facility] Magnesium 1.8 1.6 - 2.4 mg/dL [facility] L Specimen Blood Performing Organization Address [facility] Cent[facility]oky Phone Number [facility] DEPARTMENT OF PATHOLOGY AND [address] [place] [address] [address] Ionized calcium (09/20/2019 5:20 PM CDT) Pathologist Sig [facility] pH 7.52 [facility] Ionized calcium 1.13 1.11 - 1.32 mmol/L [facility] Specimen Blood Performing Organization Address [facility] Phone Number [facility] DEPARTMENT OF PATHOLOGY AND [address] [place] [address] [address] Basic metabolic panel (09/20/2019 5:20 PM CDT)Only the most recent of2 results within the time period is included. Pathologist Sig [facility] Sodium 145 135 - 148 mEq/L [facility] Potassium 3.5 3.5 - 5.0 mEq/L [facility] Chloride 105 98 - 112 mEq/L [facility] CO2 23 (L) 24 - 31 mEq/L [facility] Anion gap 17@ANIO (H) 7 - 15 mEq/L [facility] BUN 9 8 - 23 mg/dL [facility] Creatinine 0.76 0.50 - 0.90 mg/dL [facility] Glucose 142 (H) 65 - 99 mg/dL [facility] Calcium 9.5 8.8 - 10.2 mg/dL [facility] Specimen Blood Performing Organization Address [facility] Phone Number [facility] DEPARTMENT OF PATHOLOGY AND [address] [place] [phone] ECG 12 lead (09/20/2019 4:27 PM CDT)Only the most recent of2 resultswithin the time period is included. Pathologist Sig nature Ventricular rate 88 [facility] MUSE Atrial rate 88 HM MUSE [place] interval 164 [facility] MUSE QRSD interval 90 [facility] MUSE QT interval 356 [facility] MUSE QTC interval 430 [facility] MUSE P axis 1 58 [facility] MUSE QRS axis 1 64 [facility] MUSE T wave axis 59 [facility] MUSE EKG impression Normal sinus [facility] MUSE rhythm-Normal ECG-In automated comparison with ECG of 06-JUN-2019 09:55,-No significant change was found- Specimen Narrative Performed At This result has an attachment that is no t available. Performing Organization Address City/State/Zipcode Phone Number [facility] MUSE [address] [place] [address] POC glucose (09/20/2019 4:25 PM CDT) [facility] POC glucose 133 (H) 65 - 99 mg/dL [facility] Comment: HOSPITAL Greenhouse Laborer Name: Zion Crump Device ID: [id number] Chartable: [facility] Notified RN Specimen Blood Performing Organization Address City/[facility]/Zipcode Phone Number [facility] DEPARTMENT OF PATHOLOGY AND [address] [place] [phone] GENOMIC MEDICINE [facility] [address] [place] [address] Airway (09/19/2019 3:59 PM CDT) Narrative Performed [...] At EXAMINATION: XR LUMBAR SPINE 1 VW [facility] CLINICAL HISTORY: Z98.890 Other specifie d postprocedural states COMPARISON: Lumbar radiograph 0 IMPRESSION: Single lateral intraoperative radiograph of the lumbar spine in bone and soft tissue filters demonstrates a posterior approach surgical instrument tip directed towards the L4-L5 level with t ip projecting along the inferior aspect of the L4 spin ous process. [id number] Procedure Note Hm Interface, Radiology Results Incoming [...] inferior aspect of the L4 spinous process. [id number] Performing Organization Address City/[facility] Phone Number [facility] [address] [place] [address] Surgical pathology request (09/19/2019 8:26 AM CDT) [facility] DEPARTMENT OF PATHOLOGY AND GENOMIC MEDICINE Surgical pathology See link below [facility] DEPARTMENT OF report for PDF Lab PATHOLOGY AND Report GENOMIC MEDICINE Result status This is Final [facility] DEPARTMENT OF Report for PATHOLOGY AND [id number] GENOMIC MEDICINE Specimen Performing Organization Address [facility] Phone Number [facility] DEPARTMENT OF PATHOLOGY AND [address], [place] [address] GENOMIC MEDICINE COVID BioRef (NCOVB) (09/11/2019 12:19 PM CDT) COVID BioRef Not Detected Not Detected [facility] TechnologiesABRA[facility] WEST CAMPUSSass[facility] (NCOV[facility]) Comment: Source Nasopharyngeal Swab Testing performed at [facility] [address] [place] [address] NOTE: Please consider re-collection of a new specimen, if clinically indicated. NOTE: The COVID-19 assay has been cleared by the U.S. Food and Drug Administration under the Emergency Use Authorization ( EUA). [employer] is designated as a high complexity labora [...] under the Emergency Use Authorization ( EUA). [employer] is designated as a high complexity labora tory by the Clinical Laboratory Improvement Amendments of 1988(CLIA) and is qualified to perform this test. ASSAY INFORMATION: Real Time RT-PCR (Reported 2019 12:29) Specimen Nasopharyngeal Performing Organization Address City/State/Zipcode Phone Number [facility] DEPARTMENT OF PATHOLOGY [address] [place] [address] AND [employer] [facility] [address] [place] [address] Comprehensive metabolic panel (09/11/2019 12:11 PM CDT) Sodium 142 135 - 148 [facility] mEq/L [facility] Potassium 4.0 3.5 - 5.0 [facility] mEq/L [facility] Chloride 100 98 - 112 [facility] mEq/L [facility] CO2 26 24 - 31 mEq/L [facility] Anion gap 16@ANIO (H) 7 - 15 mEq/L [facility] BUN 26 (H) 8 - 23 mg/dL [facility] Creatinine 0.90 0.50 - 0.90 [facility] mg/dL [facility] Glucose 111 (H) 65 - 99 mg/dL [facility] Calcium 10.5 (H) 8.8 - 10.2 [facility] mg/dL [facility] Protein 7.6 6.3 - 8.3 [facility] Comment: g/dL [facility] [place] 4.6-7.0 g/dL 1 week 4.4-7.6 g/dL 7 months-1year 5.1-7.3 g/dL 1-2 years 5.6-7.5 g/dL >3 years 6.0-8.0 g/dL 18-150 6.3-8.3 g/dL Albumin 4.0 3.5 - 5.0 [facility] g/dL [facility] A/G ratio 1.1 0.7 - 3.8 [facility] Alkaline phosphatase 82 35 - 104 U/L [facility] AST 20 10 - 35 U/L [facility] ALT 17 5 - 50 U/L [facility] Total bilirubin 0.3 0.0 - 1.2 [facility] mg/dL HOSPITAL Specimen Blood Performing Organization Address City/[facility]/Zipcode Phone Number [facility] DEPARTMENT OF PATHOLOGY AND [address], [place] [address] [address] [address] Post Myelogram Thoracic (09/06/2019 12:33 PM [...] ensure appropriate moderation of exposure. Automated dose business management analyst nology is applied to adjust radiation exposure [...] correlation for right C6 radiculopathy is recommended. [facility]-[id number] Procedure Note Interface, Radiology Results - 09/06/2019 12:44 PM CDT EXAMINATION: CT [...] correlation for right C6 radiculopathy is recommended. [facility]-[id number] Performing Organization Address City/State/Zipcode Phone Number [facility] [address] [place] [address] CT Post Myelogram Lumbar (09/06/2019 12:32 PM [...] ensure appropriate moderation of exposure. Automated dose business management analyst nology is applied to adjust radiation exposure [...] ingement on the right L3 nerve root. [facility]-[id number] Procedure Note Hm Interface, Radiology Results 09/06/2019 12:43 PM CDT EXAMINATION: CT POST [...] impingement on the right L3 nerve root. [facility]-[id number] Performing Organization Address City/State/Zipcode Phone Number [facility] [address] [place] [address] IR Myelogram 2+Reg Incl Inj W S&I (09/06/2019 11:12 AM CDT) Specimen Narrative Performed At EXAMINATION: IR MYELOGRAM 2 REG INCL I [place] W S&I HM [facility] CLINICAL HISTORY: M48.062 Spinal stenosis lumbar [...] of the left C6 root sleeve . [facility]-[id number] Procedure Note Interface, Radiology Results Incoming - [...] of the left C6 root sleeve . [facility]-[id number] Performing Organization Address City/State/Zipcode Phone Number [facility] [address] [place] [address] XR Lumbar Spine Complete W Flex and [...] IMPRESSION: Degenerative changes without acute abnor mality. [facility]-[id number] Dictated and approved by radiology resid ent/fellow: Cari Thomson M.D. I, Marilyn Charles MD, personally reviewed the images and resident's/fellow's findings and agree with the final report. Procedure Note [facility], Radiology Results Incoming - 08/14/2019 11:37 AM [...] IMPRESSION: Degenerative changes without acute abnor mality. [facility]-[id number] Dictated and approved by radiology resid ent/fellow: Cari Thomson M.D. I, Marilyn Charles MD, personally review ed the images and resident's/fellow's findings and agree with the final report. Performing Organization Address City/State/Zipcode Phone Number [facility] [address] [place] [address] XR Spine Scoliosos 2-3 Views (08/14/2019 11:06 AM CDT) Specimen Narrative Performed At EXAMINATION: XR SPINE SCOLIOSIS 2-3 VIEW S [facility] CLINICAL HISTORY: M54.16 Radiculopathy lumbar region, [...] and s crew fixation and interbody graft. [id number] Procedure Note Interface, Radiology Results Incoming - [...] plate and screw fixation and interbody graft. [id number] Performing Organization Address City/State/Zipcode Phone Number [facility] [address] [place] [address] carotid duplex (06/13/2019 10:00 AM COMPUTER SYSTEMS SECURITY ANALYST) Specimen Narrative Performed At [facility] Carotid Tonya ry Ultrasound Report Pat.Name: HALEY PORTER Pat.ID: [id number] .Date: 06/13/2019 Refer.MD: IBIS TORRES MD Exam Time: 9:13:00 AM Study Type:C arotid Age: 8 1955,63Y Sex: FEMALE Sonogrphr: Cyn Montoya RVT Pat. Stat.:Outp atient Room: [facility] ol: LUCINA, CPT - 4: 28642 Echo Shira nt ID:[id number] Order ID: [id number] Reason for Study:Carotid artery disease, Hx of [...] Radiology Results In - 2019 6:01 AM COMPUTER SYSTEMS SECURITY ANALYST [facility] Carotid Artery Ultras ound Report Pat.Name: HALEY PORTER Pat.I D: [id number] St.Date: 06/13/2019 Refer .MD: IBIS TORRES MD Exam Time: 9:13:00 AM Study Type:Carotid Age: 8 1955,63Y Sex: FEMALE Sonogrphr: Cyn Montoya RVT Pat. Stat.:Outpatient Room: [facility] Vol: SD, CPT - 4: 44311 Echo Event ID:[id number] Order ID: [id number] Reason for Study:Carotid artery disease, Hx of [...] Organization Address City/State/Zipcode Phone Number [facility] [address] [place] [address] CTA Abdominal Aorta And Bilateral Iliofemoral Runoff W Wo Contrast (06/06/2019 5:02 PM COMPUTER SYSTEMS SECURITY ANALYST) Specimen Narrative Performed At EXAMINATION: CT ANGIOGRAM [...] runoff of the bilate ral lower extremities. [facility]-[id number] Procedure Note Hm Interface, Radiology Results Incoming - 06/06/2019 5:24 PM COMPUTER SYSTEMS SECURITY ANALYST EXAMINATION: CT ANGIOGRAM ABDOMINAL AORTA AND BILATERAL [...] runoff of the bilate ral lower extremities. [facility]-[id number] Performing Organization Address City/State/Zipcode Phone Number [facility] [address] [place] [address] POC creatinine (06/06/2019 3:21 PM COMPUTER SYSTEMS SECURITY ANALYST) POC creatinine 0.8 0.5 - 0.9 [facility] Comment: mg/dl HOSPITAL Meter ID: [id number] Greenhouse Laborer ID: Bayron Valencia Specimen Blood - Antecubital, left Performing Organization Address City/State/Zipcode Phone Number [facility] DEPARTMENT OF PATHOLOGY AND [address] [place], [place] [address] GENOMIC MEDICINE [facility] [address] [place] [id number] COPY RECEIVED FROM: (06/06/2019 11:02 AM COMPUTER SYSTEMS SECURITY ANALYST) Pathologist Sig nature Copy received from: [facility] Comment: [facility] [place] [address] Specimen Performing Organization Address City/[facility]/Zipcode Phone Number [facility] COPY(IES) SENT TO: (06/06/2019 11:02 AM COMPUTER SYSTEMS SECURITY ANALYST) Pathologist Sig nature Copies/mL [facility] Comment: ALEC [facility] [facility] [address] [place] [address] Specimen Performing Organization Address City/[facility]/Zipcode Phone Number [facility] MRI Spine External Study (03/06/2019 3:47 PM COMPUTER SYSTEMS SECURITY ANALYST) Specimen Narrative Performed At This exam was not acquired at a [facility] t facility and has not been [facility] interpreted by a [facility] Provider. T he exam was imported into our imaging system. Performing Organization Address City/[facility]/Zipcode Phone Number [facility] [address] [place] [address] after 01/06/2019 Insurance Payer Benefit Plan / Subscriber ID Effective Phone Address T ype Group Dates MEDICARE MEDICARE PART A xxxxxxxxxxx 2018-[place], [place] Medicare AND B ent COMMERCIAL MISC MISC COMMERCIAL xxxxxxxxx 2009-[facility] Commercial ent [phone] (Work) Advance Directives For more information, please contact: [phone] Type Date Recorded Patient Taxicab Dispatcher Explanati on Advance Directives, Living Will and Medical Power of Ticket Manager
--- OUTSIDE RECORDS SUMMARY | 2020-01-07 12:17 | XMS REPORT | Clinical Summary ---
:1955 Author Organization [facility] Address [address] [place] [address] Care Team Providers Name Role Phone Nayla Alonzo MD Primary Care Provider Allergies Not on File Medications Not on file Active Problems Not on file Encounters Date Type Specialty Care Team Description 10/30/2019 Telephone Critical Care Medicine Jan Fountain MD 10/30/2019 Hospital Encounter after 01/06/2019 Social History Tobacco Use Types Packs/Day Years Used Date Never Assessed Sex Assigned at Date Recorded Not on file Job Start Date Occupation Industry Not on file Not on file Not on file Travel History Travel Start Travel End No recent travel history available. Last Filed Vital Signs Not on file Plan of Treatment Not on file Results Not on fileafter 01/06/2019 Insurance Payer Benefit Plan / Group Subscriber ID Type Phone A ddress [employer] - [employer] CARE C[employer] HMO/POS/OPEN ACCESS xxxxxxxxx HMO/POS [phone] (Work)
--- OUTSIDE RECORDS SUMMARY | 2020-01-07 12:19 | XMS REPORT | Continuity of Care Document ---
:[address] [facility] Information [place] Care Team Providers Name Role Phone 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 [address] [place] [address] Unspecified 05/09/2017 abdominal pain 018 Radha and ABDOMINAL PAIN/LOSS Active [facility] 018 [place] SURGERY THIS Active [facility] MORNING, PROBLEMS 013 Nh dical BREATHING Center POST FOLLOW UP Active [address] BDDC-WEIGHT LOSS Active [address] 783.21 - ABNORMAL Active OPID LOSS O 576.0 - 013 Radha and POSTCHO ABD PAIN Active [address] Acid reflux Resolved Problem 01/25/2013 [facility] HTN - Hypertension Resolved Problem 01/25/2013 [facility] Gastroesophageal Resolved Problem 11/02/2019 Ne elizabeth reflux disease Neuro , (disorder) [facility] Cervical Active Problem 11/02/2019 [place] spondylosis Neuro, (disorder) 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 Lumbosacral plexus Resolved Problem 11/02/2019 [facility] neuropathy Neuro, (disorder) [facility] Menopausal syndrome Active Problem 11/02/2019 [facility] (disorder) [facility] Meralgia Active Problem 11/02/2019 [facility] paresthetica Neuro,M H (disorder) [facility] Pituitary adenoma Active Problem 11/02/2019 Data M sandeep (disorder) migrated Neuro, from [facility] on 12/25/14. Fabian Barrera [place] Ulcer of lower Active Problem 11/02/2019 [facility] her extremity Neuro, (disorder) [facility] ABDMNAL PAIN UNSPCF Active [facility] Medications Medication Details Route Status Patient Ordering Order Source Instructions Provider Date remove patch Notes: Remove No Longer [place] patch 12 hours Active 2019 Medical after Center application each day. edwina, RESIDENTIAL Notes: (Same Inactive [place] as: [place]) [address] [place] [address] Center tramadol Notes: Not to Inactive [place] hydrochloride exceed 2020 Medical 50 MG Oral 400mg/day. Center Tablet (Same As: Ultram) Lidocaine 1 patch, TOP, Active [place] Hydrochloride Daily, Remove 2020 Medi ion 0.05 MG/MG after 12 hours, Cente r Transdermal # 30 patch, 0 Patch Refill(s), [Lidoderm] [id number], 167.64, cm, 10/31/19 2:23:00 CDT, Height, 79.091, kg, 10/31/19 2:23:00 CDT, Weight {74 (apixaban 5 5 mg = 1 tab, Active [place] MG Oral Tablet PO, BID, # 60 2019 Med ical [Eliquis]) } tab, 0 Center Pack [Eliquis Refill(s), 30-Day Starter Pharmacy: Pack] [facility]/pharmacy #[id number], 167.64, cm, 10/31/19 2:23:00 CDT, Height, [...] MG Oral Tablet POLYETHYLENE Notes: Dissolve Inactive [facility] GLYCOL 3350 in 8 oz of [address] [place] [address] water or juice. Center (Same as: Miralax) Aspirin 81 MG Notes: Do not Inactive [facility] Enteric Coated crush or chew. [facility] Me dical Tablet (Same As: Center Ecotrin) Prilosec 20 mg, Route: Inactive [place] PO, Daily, [facility] Medical Dosing Weight Center 83.636, kg, Start date: 10/31/19 9:00:00 CDT, Duration: 30 day, Stop date: 11/29/19 9:00:00 CDT pregabalin Notes: (Same Inactive [place] as: Lyrica) [address] [place] [address] quinapril 20 mg, 1 tab, Inactive [place] s Route: PO, Drug [facility] Medical form: TAB, Center Daily, Dosing Weight 83.636, kg, Start date: 10/31/19 9:00:00 CDT, Duration: 30 day, Stop date: 11/29/19 9:00:00 CDT Protonix Notes: Tablet Inactive [facility] should not be [address] [place] [address] chewed or [place] crushed. (Same as: Protonix) Acetaminophen Notes: (Same Inactive [place] 325 MG / as: [place] [address] [place] [address] Hydrocodone 325/5) Do not Cente r Bitartrate 5 MG exceed 4gm/day Oral Tablet of [[place] 5/325] acetaminophen. Hydromorphone Notes: Same as Inactive [facility] Dilaudid [address] [place] [address] Heparin 80 Route: IVP, Inactive [facility] unit/kg Bolus PRN, 5,400 2019 [facility] (Heparin Dosing unit, 5.4 mL, Ce nter Weight) Drug form: INJ, PRN, Heparin Protocol, Start date: 10/31/19 2:25:00 CDT Stop date: 11/30/19 2:24:00 CDT, 30 day, 0 Heparin 40 Route: IVP, Inactive [place] unit/kg Bolus PRN, 2,[address] [place] [address] (Heparin Dosing unit, 2.7 mL, Ce nter Weight) Drug form: INJ, PRN, Heparin Protocol, Start date: 10/31/19 2:25:00 CDT Stop date: 11/30/19 2:24:00 CDT, 30 day, 0 heparin Notes: Total Inactive [facility] additive 25,000 Concentration = 2019 Medical unit [18 50 unit/ ml Center unit/kg/hr] + Total volume = Premix Diluent 500 ml Send [facility] Sodium Chloride Request 2 hours 0.45% 500 mL prior to next bag Acetaminophen Notes: Do not Inactive [facility] 325 MG / exceed 4gm/day 2019 Medical Hydrocodone of [place] Bitartrate 10 acetaminophen. MG Oral Tablet (Same as: [place] 325/10) clorazepate Notes: (Same Inactive [place] as As: Tranxene-T) [address] [place] [address] tizanidine Notes: (Same Inactive [place] As: Zanaflex) [address] [place] [address] pregabalin 100 100 mg = 1 cap, Active H [place] mg oral capsule PO, QID, # 90 2019 Nh dical cap, 0 Center Refill(s) tizanidine 4 mg 4 mg = 1 tab, Inactive [facility] oral tablet PO, Q8H, PRN 2019 [facility] for muscle [place] spasms, # 90 tab, 0 Refill(s) clorazepate 7.5 7.5 mg = 1 tab, Inactive [facility] mg oral tablet PO, TID, PRN 2019 [facility] ion Anxiety, 0 Center Refill(s) linaclotide 145 microgram = Active [facility] exas 0.145 MG Oral 1 cap, PO, 2019 Medical Capsule Daily, 30 Center [Linzess] minutes prior to the first meal of the day, # 30 cap, 0 Refill(s) Dextrose 50% 12.5 gm, 25 mL, Inactive [facility] Syringe (D50W) Route: IVP, 2019 Medic al Drug Form: INJ, Center Dosing Weight 83.636, kg, PRN, PRN Blood Glucose Results, Start date: 10/31/19 2:06:00 CDT, Duration: 30 day, Stop date: 11/30/19 2:05:00 CDT, 0 Glucagon 1 mg, Route: Inactive [facility] IM, Drug form: [facility] Medical PDR/INJ, PRN, Center Dosing Weight 83.636, kg, PRN Blood Glucose Results, Start date: 10/31/19 2:06:00 CDT, Duration: 30 day, Stop date: 11/30/19 2:05:00 CDT, 0 Ondansetron Notes: (Same Inactive [place] as: Zofran) 2019 Medical MEDICATION Center WASTE Product Size: 4 mg Product Wasted: ___ mg Melatonin Notes: (Same Inactive [place] as: Melatonin) 2019 [facility] Aspirin 81 MG 81 mg = 1 tab, Active 05/05/ mckenzie Enteric Coated PO, Daily, # 90 2019 N euro Tablet tab, 3 Refill(s) cefdinir 300 MG 300 mg = 1 cap, Active 05/05/ cher Oral Capsule PO, BID, # 20 2019 Neuro cap, 0 Refill(s) Estrogens, 0.3 mg = 1 tab, Active 12/22/ ch er Conjugated PO, Daily, # 30 2019 Neuro (RESIDENTIAL) 0.3 MG tab, 0 Oral Tablet Refill(s) [...] Neuro tablet 180 tab, 3 Refill(s), Pharmacy: [facility]/pharmacy #[id number] Acetaminophen 1 tab, PO, TID, Active 300 MG / PRN Pain, X 4 2017 [place] Codeine day, # 12 tab, Phosphate 30 MG 0 Refill(s) Oral Tablet [Tylenol with Codeine #3] acetaminophen-c Notes: Do not Inactive 05/07/ M H odeine #3 exceed 4gm/day 2018 [place] of acetaminophen. 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 Saline Flush Notes: (Same Inactive 0.9% as: BD 2017 [place] Posiflush) hyoscyamine 0.125 mg, 1 PO No Longer [facility] Monster as tab, Route: PO, Active 2012 [...] 50 mg, 1 tab, PO No Longer [facility] [place] oral tablet PO, Q8H, PRN, Active 2012 Medica l 10 tab, as Center needed for pain, Substitution Allowed, TAB [place] 10/325 1 tab, Route: PO No Longer [place] oral tablet PO, Drug Form: Active 2012 Medic al TAB, Dosing Center Weight 65, kg, Q6H, PRN Pain, Start date: 01/22/13 21:22:00, Duration: 30 day, Stop date: 02/21/13 21:21:00 Omnipaque 100 mL, Route: IVP No Longer [facility] [place] 350mg/ml IVP, Drug Form: Active 2012 Medical SOLN, Dosing Center Weight 65, kg, ONCALL, STAT, Start date: 01/22/13 13:12:00, Duration: 1 doses or times, Dose = 2.2ml/kg, Max dose = 100ml -- "To be infused by Radiology Staff ONLY"Dose = 2.2ml/kg, Max dose = 100ml -- "To be infused by Radiology Staff ONLY" Dilaudid 0.5 mg, 0.25 IV No Longer [facility] mL, Route: IV, 2012 Medical Drug form: INJ, Center Q4H, Dosing Weight 65, kg, PRN as needed for pain, Start date: 01/22/13 12:17:00, Duration: 30 day, Stop date: 02/21/13 12:16:00 [place] 10/325 1 tab, Route: PO No Longer [facility] oral tablet PO, Drug Form: 2012 Medic al TAB, Dosing Center Weight 65, kg, Q4H, PRN Pain, NOW, Start date: 01/22/13 2:14:00, Duration: 30 day, Stop date: 02/21/13 2:13:00 Remeron 15 mg, 1 tab, PO No Longer [facility] Route: PO, Drug Active 2012 Medical form: TAB, Center Bedtime, Dosing Weight 65, kg, Start date: 01/21/13 21:00:00, Duration: 30 day, Stop date: 02/19/13 21:00:00 hyoscyamine 0.125 mg, 1 PO No Longer [facility] Monster as tab, Route: PO, 2012 Medical Drug form: TAB, Center TID, Dosing Weight 65, kg, Start date: 01/21/13 17:00:00, Duration: 30 day, Stop date: 02/20/13 13:00:00 D5W 1/2NS 1,000 1,000 mL, Rate: IV No Longer [facility] mL 75 ml/hr, Active 2012 Medical Infuse over: Center 13.3 hr, Route: IV, Dosing Weight 65 kg, Total Volume: 1,000, Start date: 01/21/13 15:44:00, Duration: 30 day, Stop date: 02/20/13 15:43:00 Dilaudid 0.5 mg, 0.25 IV No Longer [facility] mL, Route: IV, Active 2012 Medical Drug form: INJ, Center ONCE, Dosing Weight 65, kg, Start date: 01/21/13 14:32:00, Stop date: 01/21/13 14:32:00 Dilaudid 0.5 mg, 0.25 IV No Longer [facility] mL, Route: IV, Active 2012 Medical Drug form: INJ, Center Q8H, Dosing Weight 65, kg, PRN as needed for pain, Start date: 01/21/13 9:39:00, Duration: 30 day, Stop date: 02/20/13 9:38:00 senna 8.6 mg 8.6 mg, 1 tab, PO No Longer [facility] oral tablet Route: PO, Drug Active 2012 [facility] ion Form: TAB, Center Dosing Weight 65, kg, BID, PRN as needed for constipation, Start date: 01/21/13 9:39:00, Duration: 30 day, Stop date: 02/20/13 9:38:00 MiraLax 17 gm, 1 pkt, PO No Longer [facility] Route: PO, Drug Active 2012 Medical form: PWDR, Center Daily, Dosing Weight 65, kg, PRN Constipation, Start date: 01/21/13 9:38:00, Duration: 30 day, Stop date: 02/20/13 9:37:00 tramadol 50 mg 50 mg, 1 tab, PO No Longer [facility] oral tablet Route: PO, Drug Active 2012 Medi ion form: TAB, Q8H, Center Dosing Weight 65, kg, PRN as needed for pain, Start date: 01/21/13 9:38:00, Duration: 30 day, Stop date: 02/20/13 9:37:00 Protonix 40 mg, 1 tab, PO No Longer [facility] Route: PO, Drug Active 2012 Medical form: ECTAB, Center Daily, Dosing Weight 65, kg, Start date: 01/21/13 9:00:00, Duration: 30 day, Stop date: 02/19/13 9:00:00 Dilaudid 0.5 mg, 0.25 IV No Long[facility], Route: IV, Active 2012 Medical Drug form: INJ, Center ONCE, Dosing Weight 65, kg, PRN as needed for pain, Start date: 01/20/13 22:21:00 Zosyn 3.375 gm, IVPB No Longer [facility] Route: IVPB, Active 2012 Medical Drug form: Center PDR/INJ, [id number], Start date: 01/20/13 11:00:00, Stop date: 02/19/13 2:00:00 enoxaparin 40 mg, 0.4 mL, SUB-Q No Longer [place] Route: SUB-Q, Active 2012 Medical Drug form: INJ, Center [id number], Dosing Weight 65, kg, Start date: 01/20/13 6:00:00, Duration: 30 day, Stop date: 02/18/13 6:00:00 NS + KCL 1,000 mL, Rate: IV No Longer [place] 20mEq/L 1000ml 125 ml/hr, Active 2012 Medica l (Premix) 1,000 Infuse over: 8 Ce nter mL hr, Route: IV, Dosing Weight 65 kg, Total Volume: 1,000, Start date: 01/20/13 5:25:00, Duration: 30 day, Stop date: 02/19/13 5:24:00 Zosyn 3.375 gm, IVPB No Longer [place] [facility] Route: IVPB, Active 2012 Medical Drug form: INJ, Center Q6H, Dosing Weight 65, kg, Priority: STAT, Start date: 01/20/13 5:24:00, Duration: 30 day, Stop date: 02/19/13 0:00:00 Dilaudid 0.5 mg, 0.25 IV No Longer [facility] mL, Route: IV, Active 2012 Medical Drug form: INJ, Center Q4H, Dosing Weight 65, kg, PRN as needed for pain, Start date: 01/20/13 5:23:00, Duration: 30 day, Stop date: 02/19/13 5:22:00 docusate Substitution Active [place] Allowed 2012 Medical Center ondansetron 4 mg, 2 mL, IVP No Longer [place] Route: IVP, Active 2012 Medical [...] Zosyn 3.375 gm, IVPB No Longer Sajja [place] Route: IVPB, Active 2012 Medical Drug form: [...] IV 1,000 mL, Rate: IV No Longer [facility] 1000 mL 1,000 ml/hr, Active 2012 Medical [...] Substitution Active [place] Allowed, 2012 [facility] clorazepate Substitution [place] Allowed 2012 [facility] Symax Duotab Substitution Active [place] as Allowed 2012 [facility] Prilosec Substitution Active [place] Allowed 2012 [facility] Premarin Substitution Active [place] Allowed 2012 [facility] Allergies, Adverse Reactions, Alerts Substance Category Reaction Severity Reaction Status Date Comments S ource type Reported diazepam<dove Assertion Drug Active Data [facility] p>1</sup> allergy 2 migrated Medic al from [facility] on 12/24/14. Originally documented as VALIUM. midazolam<s Assertion Drug Active Data [facility] up>2</sup> allergy 2 migrated Medi ion from [facility] on 12/24/14. Originally documented as VERSED. morphine<dove Assertion Drug Active Data [facility] p>3</sup> allergy 2 migrated Medic al from [facility] on 12/24/14. Originally documented as MORPHINE. Valium Assertion Drug Active [place] as allergy Medical Center morphine drug Allergy Active [place] allergy Medical Center cortisone drug Allergy Active [place] as allergy Medical [place] Immunizations No Data Provided for This Section Results Order Name Results Value Reference Date Interpretation Comments [facility] [facility] HEMATOLOGY PT 14.3 12.0 - 10/30 [facility] 14.7 /2019 [facility] HEMATOLOGY INR 1.11 0.85 - 10/30 [facility] 1.17 [facility] HEMATOLOGY PTT 94.8 22.9 - 10/30 [facility] 35.8 /2019 [facility] HEMATOLOGY PT 14.4 12.0 - 10/30 [facility] 14.7 /2019 [facility] HEMATOLOGY INR 1.11 0.85 - 10/30 [facility] 1.17 [facility] HEMATOLOGY PTT 86.8 22.9 - 10/30 [facility] 35.8 /2019 [facility] BLOOD BANK ABO/Rh O POS 10/30 [facility] RESULTS /2019 [facility] BLOOD BANK Antibody Negative 10/30 [facility] RESULTS Scrn (10/31/19 2:51 AM) /2019 [facility] CHEM PANEL Glucose Lvl 91 70 - 99 10/[address] CHEM PANEL BUN 13 7 - 22 10/[address] CHEM PANEL Creatinine 0.70 0.50 - 10/30 [facility] Lvl 1.40 [facility] CHEM PANEL Sodium Lvl 142 135 - 145 10/[address] CHEM PANEL Potassium 4.0 3.5 - 5.1 10/30 [facility] /[address] [place] [address] CHEM PANEL Chloride Lvl 108 95 - 109 10/[address] CHEM PANEL CO2 24 24 - 32 10/[address] CHEM PANEL Calcium Lvl 8.5 8.5 - 10.5 10/30 [facility] /[address] [place] [address] CHEM PANEL Total 6.6 6.4 - 8.4 10/30 [facility] Protein [address] CHEM PANEL Albumin Lvl 3.0 3.5 - 5.0 10/[address] CHEM PANEL ALT 16 0 - 65 10/[address] CHEM PANEL AST 20 0 - 37 10/[address] CHEM PANEL Alk Phos 102 39 - 136 10/[address] CHEM PANEL Bili Total 0.4 0.2 - 1.3 10/[address] CHEM PANEL AGAP 14.0 10.0 - 10/30 [place] 20.0 /2019 [facility] CHEM PANEL B/C Ratio 19 6 - 25 10/[address] CHEM PANEL Globulin 3.6 2.7 - 4.2 10/[address] CHEM PANEL A/G Ratio 0.8 0.7 - 1.6 10/[address] CHEM PANEL eGFR 91 10/30 Result [facility] Comment: The Medical eGFR is Center calculated [...] HEMATOLOGY WBC 8.0 3.7 - 10.4 10/[address] HEMATOLOGY RBC 3.97 4.20 - 10/30 [place] 5.40 [facility] HEMATOLOGY Hgb 12.5 12.0 - 10/30 [facility] 16.0 [facility] HEMATOLOGY Hct 37.6 36.0 - 10/30 [facility] 48.0 [facility] HEMATOLOGY MCV 94.8 80.0 - 10/30 [facility] 98.0 [facility] HEMATOLOGY MCH 31.4 27.0 - 10/30 [facility] 31.0 [facility] HEMATOLOGY MCHC 33.1 32.0 - 10/30 [place] 36.0 [facility] HEMATOLOGY RDW 13.0 11.5 - 10/30 [facility] 14.5 [facility] HEMATOLOGY Platelet 229 133 - 450 10/[address] HEMATOLOGY MPV 8.8 7.4 - 10.4 10/[address] HEMATOLOGY PT 14.2 12.0 - 10/30 [facility] 14.7 /2019 [facility] HEMATOLOGY INR 1.10 0.85 - 10/30 [place] 1.17 [facility] HEMATOLOGY PTT 64.7 22.9 - 10/30 [facility] 35.8 /2020 [facility] HEMATOLOGY Segs 63.4 45.0 - 10/30 [facility] 75.0 /2020 Medical Center HEMATOLOGY Lymphocytes 26.0 20.0 - 10/30 [facility] 40.0 /2020 [facility] HEMATOLOGY Monocytes 8.5 2.0 - 12.0 10/30 [facility]2020 [facility] HEMATOLOGY Eosinophils 1.6 0.0 - 4.0 10/30 [place] /2020 [facility] HEMATOLOGY Basophils 0.5 0.0 - 1.0 10/30 [facility]2020 [facility] HEMATOLOGY Neutrophils 5.1 1.5 - 8.1 10/30 [place] # /2020 [facility] HEMATOLOGY Lymphocytes 2.1 1.0 - 5.5 10/30 [facility] # /2020 [facility] HEMATOLOGY Monocytes # 0.7 0.0 - 0.8 10/30 [facility] HEMATOLOGY Eosinophils 0.1 0.0 - 0.5 10/30 [facility] # /2020 [facility] HEMATOLOGY Sed Rate 2 < OR = 30 03/15 Result June mm/hr Comment: Neuro
Lab test performed by:
[facility]
[address]
[place] [address]
Bryan Carpenter HEMATOLOGY SS-A ([place]) Ab <1.0 NEG <1.0 NEG 03/15 Result [facility] Comment: Neuro
Lab test performed by:
[facility]
[address]
[place] [address]
Dr. Bryan Carpenter HEMATOLOGY SS-B ([place]) Ab [...] Immunity Screen, ACIF.

Lab test performed by:
[facility]
[address]
[place] [address]
Dr. Bryan Carpenter HEMATOLOGY EBV VCA IgM 62.60 03/15 Result [facility] Comment: Neuro U/mL Interpretatio n
---- -
<36.00 Negative
36.00-43.99 Equivocal<br/ > >43.99 Positive

Lab test performed by:
[facility]
[address]
[place] [address]
Dr. Bryan Carpenter HEMATOLOGY ANGIOTENSIN 9 9 - 67 03/15 Result [facility] CONVERTING Comment: Neuro ENZYME
Lab test performed by:
[facility]
[address]
[place] [address]
Dr. Bryan Carpenter HEMATOLOGY Varicella 0.69 03/15 [...]
<br/& gt;FASTING: YES

Lab test performed by:
[facility]
[address]
[place] [address]
[address] Bryan Carpenter URINE AND UA Blood Negative Negative 05/06 STO[place] (05/06/17 3:21 PM) [place] URINE AND UA Nitrite Negative Negative 05/06 [place] (05/06/17 3:21 PM) [place] URINE AND UA Bili Negative Negative 05/06 [place]OOL *NA* /2017 [place] (05/06/17 3:21 PM) URINE AND UA Leuk Est Negative Negative 05/06 [place] (05/06/17 3:21 PM) [place] URINE AND UA Sq Epi Few /LPF Few /LPF 05/06 STOOL [place] URINE AND UA Protein 30 mg/dL Negative 05/06 [facility] mg/dL [place] URINE AND UA Ketones 20 mg/dL Negative 05/06 [facility]OOL mg/dL [place] URINE AND UA Glucose Negative Negative 05/06 [facility] mg/dL mg/dL [place] URINE AND UA <=1.0 0.1 - 1.0 05/06 STOOL Urobilinogen mg/dL [place] URINE AND UA RBC 1 0 - 2 05/06 STOOL [place] URINE AND UA Mucus Few /LPF None Seen 05/06 MH STOOL /LPF [place] URINE AND UA WBC 2 0 - 5 05/06 STOOL [place] URINE AND UA Color Yellow Yellow 05/06 STOOL *NA* /2017 [place] (05/06/17 3:21 PM) URINE AND UA Spec Grav 1.019 <=1.030 05/06 STOOL [place] URINE AND UA pH 5.0 5.0 - 8.0 05/06 STOOL [place] URINE AND UA Turbidity Slight Clear 05/06 STOOL *ABN* /2017 [place] (05/06/17 3:21 PM) CHEM PANEL Lipase Lvl 166 73 - 393 05/06 [place] CHEM PANEL Amylase Lvl 42 25 - 115 05/06 [place] ELECTROLYTE Chloride Lvl 100 95 - 109 05/06 S [place] ELECTROLYTE Sodium Lvl 139 135 - 145 05/06 S [place] ELECTROLYTE Potassium 4.0 3.5 - 5.1 05/06 S Lvl [place] ELECTROLYTE eGFR 41 05/06 MH Comment: The [place] eGFR is calculated using the CKD-EPI formula. [...] Total 0.7 0.2 - 1.3 05/06 S [place] ELECTROLYTE Alk Phos 82 39 - 136 05/06 S [place] ELECTROLYTE A/G Ratio 1.0 0.7 - 1.6 05/06 S [place] ELECTROLYTE ALT 19 0 - 65 05/06 S [place] ELECTROLYTE AST 15 0 - 37 / MH S [place] ELECTROLYTE Globulin 4.1 2.7 - 4.2 01/ MH S /2017 [place] ELECTROLYTE Albumin Lvl 4.3 3.5 - 5.0 05/06 MH S [place] ELECTROLYTE B/C Ratio 18 6 - 25 01 MH S [place] ELECTROLYTE Calcium Lvl 9.4 8.5 - 10.5 01 MH S [place] ELECTROLYTE Total 8.4 6.4 - 8.4 05/06 MH S [place] ELECTROLYTE CO2 27 24 - 32 05/06 [facility] [place] ELECTROLYTE AGAP 16.0 10.0 - 05/06 MH S 20.0 [place] ELECTROLYTE Creatinine 1.36 0.50 - 05/06 MH S Lvl 1.40 [place] ELECTROLYTE BUN 24 7 - 22 05/06 [facility] [place] ELECTROLYTE Glucose Lvl 77 70 - 99 05/06 [facility] [place] HEMATOLOGY Lymphocytes 2.3 1.0 - 5.5 05/06 MH # /2017 [place] HEMATOLOGY Monocytes # 0.8 0.0 - 0.8 05/06 [place] HEMATOLOGY Eosinophils 0.2 0.0 - 4.0 05/06 [facility] [place] HEMATOLOGY Basophils 0.4 0.0 - 1.0 05/06 [place] HEMATOLOGY Segs-Bands # 6.4 1.5 - 8.1 05/06 [place] HEMATOLOGY Lymphocytes 24.4 20.0 - 05/06 MH 40.0 [place] HEMATOLOGY Monocytes 8.1 2.0 - 12.0 05/06 [place] HEMATOLOGY Segs 66.9 45.0 - 05/06 MH 75.0 [place] HEMATOLOGY MPV 8.4 7.4 - 10.4 05/06 [place] HEMATOLOGY Platelet 287 133 - 450 05/06 [place] HEMATOLOGY MCH 32.4 27.0 - 05/06 MH 31.0 [place] HEMATOLOGY RDW 12.5 11.5 - 05/06 MH 14.5 [place] HEMATOLOGY MCV 91.5 80.0 - 05/06 MH 98.0 [place] HEMATOLOGY MCHC 35.4 32.0 - 05/06 MH 36.0 [place] HEMATOLOGY Hct 42.5 36.0 - 01 48.0 /2017 [place] HEMATOLOGY WBC 9.6 3.7 - 10.4 05/06 [place] HEMATOLOGY Hgb 15.1 12.0 - 05/06 16.0 [place] HEMATOLOGY RBC 4.65 4.20 - 05/06 5.40 /2017 [place] CHEMISTRY eGFR 95 01/23 NA <sup>1</sup>R esult [...] CHEMISTRY AGAP 12.9 10.0 - 01/23 Normal [facility] 20.0 [facility] CHEMISTRY Calcium Lvl 8.5 8.5 - 10.5 01/23 Normal a [facility] CHEMISTRY Glucose Lvl 75 70 - 99 01/23 Normal <sup>4</sup>I T nterpretive Medical Data: Adult Center reference range values reflect the clinical guidelines
of the [place] [employer]. CHEMISTRY CO2 28 24 - 32 01/23 Normal [facility] CHEMISTRY Chloride Lvl 106 95 - 109 01/23 Normal [facility] CHEMISTRY Potassium 3.9 3.5 - 5.1 01/23 Normal [facility] CHEMISTRY BUN 5 7 - 22 01/23 LOW [facility] CHEMISTRY Creatinine 0.7 0.5 - 1.4 01/23 Normal [facility] CHEMISTRY Sodium Lvl 143 135 [...] 10.0 2.0 - 12.0 01/23 Normal Medical [place] HEMATOLOGY Monocytes # 0.6 0.0 - 0.8 [...] 109 73 - 393 01/22 Normal [facility] CHEMISTRY Globulin 3.1 2.0 - 4.0 01/22 Normal [facility] CHEMISTRY A/G Ratio 1.0 0.7 - 1.6 01/22 [facility] CHEMISTRY B/C Ratio 4 6 - 25 01/22 [facility] CHEMISTRY AGAP 11.9 10.0 - 01/22 [facility] 20.0 [facility] CHEMISTRY eGFR 95 01/22 NA [...] CHEMISTRY AST 16 0 - 37 01/22 [facility] CHEMISTRY CO2 26 24 - 32 01/22 [facility] CHEMISTRY Calcium Lvl 8.0 8.5 - 10.5 01/22 [facility] [place] [facility] CHEMISTRY Total 6.1 6.4 - 8.4 01/22 [facility] Protein [facility] CHEMISTRY Bili Total 0.5 0.2 - 1.3 01/22 [facility] CHEMISTRY Creatinine 0.7 0.5 - 1.4 01/22 [facility] CHEMISTRY Sodium Lvl 140 135 - 145 01/22 [facility] CHEMISTRY Chloride Lvl 106 95 - 109 01/22 [facility] CHEMISTRY Potassium 3.9 3.5 - 5.1 01/22 [facility] CHEMISTRY ALT 20 0 - 65 01/22 [facility] CHEMISTRY BUN 3 7 - 22 01/22 [facility] CHEMISTRY Glucose Lvl 115 70 - 99 01/22 [place] <sup>5</sup>I MH T ex nterpretive Medical Data: Adult Center reference range values reflect the clinical guidelines
of the [place] [employer]. CHEMISTRY Alk Phos 74 39 - 136 01/22 Normal [facility] CHEMISTRY Albumin Lvl 3.0 3.5 - 5.0 01/22 LOW [facility] HEMATOLOGY Eosinophils 0.1 0.0 - 0.5 01/22 [place] [facility] HEMATOLOGY Basophils 0.3 0.0 - 1.0 01/22 Normal [facility] HEMATOLOGY Segs-Bands # 2.8 1.5 - 8.1 01/22 Normal [place] [facility] HEMATOLOGY Lymphocytes 2.0 1.0 - 5.5 01/22 [place] # /2012 [facility] HEMATOLOGY Monocytes # 0.6 0.0 - 0.8 01/22 [place] [facility] HEMATOLOGY Lymphocytes 35.5 20.0 - 01/22 Normal [place] 40.0 Medical Center HEMATOLOGY Monocytes 11.0 2.0 - 12.0 01/22 Normal [facility] HEMATOLOGY Eosinophils 2.1 0.0 - 4.0 01/22 Normal a s [facility] HEMATOLOGY Segs 51.1 45.0 - 01/22 Normal [place] 75.0 /2012 [facility] Center HEMATOLOGY Sed Rate 15 0 - 20 01/22 Normal [facility] HEMATOLOGY MCHC 34.6 32.0 - 01/22 Normal [place] 36.0 /2012 [facility] Center HEMATOLOGY MCH 32.8 27.0 - 01/22 HI [place] 31.0 /2012 [facility] Center HEMATOLOGY RDW 12.3 11.5 - 01/22 Normal [place] 14.5 /2012 Medical Center HEMATOLOGY MPV 8.2 7.4 - 10.4 01/22 Normal [facility] HEMATOLOGY Platelet 189 133 - 450 01/22 Normal [facility] HEMATOLOGY RBC 3.63 4.20 - 01/22 LOW [place] 5.40 /2012 Medical Center HEMATOLOGY WBC 5.5 3.7 - 10.4 01/22 Normal [facility] HEMATOLOGY Hgb 11.9 12.0 - 01/22 LOW [place] 16.0 /2012 Medical Center HEMATOLOGY Hct 34.5 36.0 - 09/22 LOW [facility] 48.0 [facility] HEMATOLOGY MCV 94.9 81.0 - 01/22 Normal [facility] 99.0 [facility] TUMOR CA 19-9 7.0 0.0 - 35.0 01/22 Normal [facility] CHEMISTRY Lactic Acid 0.9 0.5 - 2.2 01/21 Normal [facility] CHEMISTRY eGFR 95 01/21 NA [...] Potassium 4.1 3.5 - 5.1 01/21 Normal [facility] CHEMISTRY Chloride Lvl 107 95 - 109 01/21 [facility] CHEMISTRY Sodium Lvl 140 135 - 145 01/21 [facility] CHEMISTRY Glucose Lvl 102 70 - 99 01/21 [place] <sup>6</sup>I T ex nterpretive Medical Data: Adult Center reference range values reflect the clinical guidelines
of the [place] [employer]. CHEMISTRY BUN 7 7 - 22 01/21 Normal [facility] CHEMISTRY CO2 25 24 - 32 01/21 Normal [facility] CHEMISTRY Calcium Lvl 8.2 8.5 - 10.5 01/21 [place] [facility] CHEMISTRY Creatinine 0.7 0.5 - 1.4 01/21 Normal [facility] CHEMISTRY AGAP 12.1 10.0 - [...] Lvl 2.9 3.5 - 5.0 01/21 LOW [facility] CHEMISTRY AST 24 0 - 37 01/21 Normal [facility] CHEMISTRY Bili Total 0.7 0.2 - 1.3 01/21 Normal [facility] CHEMISTRY Total 5.7 6.4 - 8.4 01/21 [facility]OW [facility] CHEMISTRY B/C Ratio 22 6 - 25 01/21 Normal [facility] CHEMISTRY A/G Ratio 1.0 0.7 - 1.6 01/21 Normal [facility] CHEMISTRY Globulin 2.8 2.0 - 4.0 01/21 Normal [facility] HEMATOLOGY Monocytes 8.6 2.0 - 12.0 01/21 Normal [facility] HEMATOLOGY Lymphocytes 23.8 20.0 - [...] Medical Center URINALYSIS Micro? Performed 01/20 Normal [facility] (01/19/2013 23:30:05) Nh dical Center URINALYSIS UA WBC None Seen None Seen 01/20 Normal [facility] (01/19/2013 23:30:05) Nh dical Center URINALYSIS UA Sq Epi Few /LPF Few 01/20 Normal [facility] (01/19/2013 23:30:05) Nh dical Center URINALYSIS UA RBC None Seen 0 - 2 01/20 Normal [facility] (01/19/2013 23:30:05) Me dical Center URINALYSIS UA Blood Negative Negative 01/20 Normal [facility] (01/19/2013 23:30:05) Nh dical Center URINALYSIS UA 0.2 0.1 - 1.0 01/20 Normal [facility] Urobilinogen /2012 Medical Center URINALYSIS UA Bili Negative Negative 01/20 NA [place] *NA* /2012 Medical (01/19/2013 23:30:05) Ce nter URINALYSIS UA Nitrite Negative Negative 01/20 Normal [facility] (01/19/2013 23:30:05) Me dical Center URINALYSIS UA Leuk Est Negative Negative 01/20 Normal [facility] (01/19/2013 23:30:05) Nh dical Center URINALYSIS UA Glucose Negative mg/dL Negative 01/20 Normal [facility] (01/19/2013 23:30:05) Nh dical Center URINALYSIS UA Ketones Negative mg/dL Negative 01/20 NA *NA* Medical (01/19/2013 23:30:05) Ce nter URINALYSIS UA pH 8.0 5.0 - 8.0 01/20 Normal Medical Center URINALYSIS UA Protein Negative mg/dL Negative 01/20 Normal [facility] (01/19/2013 23:30:05) Nh dical Center URINALYSIS UA Turbidity Clear Clear 01/20 Normal [facility] (01/19/2013 23:30:05) Nh dical Center URINALYSIS UA Spec Grav 1.015 <=1.030 01/20 Normal [facility] URINALYSIS UA Color Yellow Yellow 01/20 NA /2012 Medical (01/19/2013 23:30:05) Ce nter CHEMISTRY Lipase Lvl 345 73 - 393 01/20 Normal [facility] CHEMISTRY Total 7.3 6.4 - 8.4 01/20 Normal [facility] CHEMISTRY Bili Total 0.5 0.2 - 1.3 01/20 Normal [facility] CHEMISTRY Albumin Lvl 3.8 3.5 - 5.0 01/20 Normal [facility] CHEMISTRY ALT 30 0 - 65 01/20 Normal [facility] CHEMISTRY Alk Phos 81 39 - 136 01/20 Normal [facility] CHEMISTRY Bili Direct 0.1 0.0 - 0.3 01/20 Normal [facility] CHEMISTRY AST 23 0 - 37 01/20 Normal [facility] CHEMISTRY Globulin 3.5 2.0 - 4.0 01/20 Normal [facility] CHEMISTRY A/G Ratio 1.1 0.7 - 1.6 01/20 Normal [facility] CHEMISTRY Bili 0.4 0.0 - 1.0 01/20 Normal [facility] HEMATOLOGY Basophils # 0.1 0.0 [...] pain since last admission in march/DLP:1306.16mGy-cm 05/06/[address] [facility] contrast only CT Comparison: CT [...] mild asymmetry in the renal size. SL: [id number] Abdomen/Pelvis CTA EXAM: CTA ABDOMEN. 01/22/2013 [facility] edical EXAM: CTA PELVIS. Center DATE: January [...] CT ABDOMEN AND PELVIS, W/O CONTRAST 01/02 [facility] contrast CT Center DATE: 01/20/2013 at [...] CT ABDOMEN AND PELVIS, W/ CONTRAST, 01/19 [facility] contrast CT Center DATE: 01/20/2013 at [...] . Bony pelvis and spine: No ac nishant abnormality . L5-S1 disc degenerative change and [...] Chest 1view EXAM: CHEST 1 VIEW 01/19/2013 [facility] DATE: January 19, 2013 at 2244 INDICATION: [...] Source Temperature Oral (F) 98.1 F 10/31/2019 [facility] Heart Rate 73 10/31/2019 [facility] Respitory Rate 20 10/31/2019 [facility] Systolic (mm Hg) 140 10/31/2019 [facility] dical [place] Diastolic (mm Hg) 84 10/31/2019 [facility] Temperature Oral (F) 98.2 F 10/31/2019 [facility] Heart Rate 80 10/31/2019 [facility] Respitory Rate 20 10/31/2019 [facility] ion Center Systolic (mm Hg) 160 10/31/2019 [facility] dical Center Diastolic (mm Hg) 90 10/31/2019 [facility] [place] Temperature Oral (F) 97.9 F 10/31/2019 [facility] Heart Rate 66 10/31/2019 [facility] Respitory Rate 20 10/31/2019 [facility] Center Systolic (mm Hg) 137 10/31/2019 [facility] dical Center Diastolic (mm Hg) 70 10/31/2019 [facility] Height 167.64 cm 10/31/2019 [facility] Weight 79.091 10/31/2019 [facility] BMI Calculated 28.14 10/31/2019 [facility] ion Center Systolic (mm Hg) 118 [...] 12/21/2018 [facility] BMI Calculated 31.18 12/21/2018 [facility] BMI Calculated 29.6 10/19/2018 [facility] Height 167.64 cm 10/19/2018 [facility] Weight 83.182 10/19/2018 [facility] Systolic (mm Hg) 106 10/19/2018 [facility] Diastolic (mm Hg) 70 10/19/2018 [facility] Respitory Rate 16 10/19/2018 [facility] Heart Rate 74 10/19/2018 [facility] BMI Calculated 27.5 09/08/2018 [facility] Weight 77.273 09/08/2018 [facility] Height 167.64 cm 09/08/2018 [facility] Respitory Rate 16 09/08/2018 [facility] Heart Rate 87 09/08/2018 [facility] Systolic (mm Hg) 105 09/08/2018 [facility] [place] [facility] Diastolic (mm Hg) 68 09/08/2018 [facility] Heart Rate 72 05/07/2017 [facility] [place] Systolic (mm Hg) 115 05/07/2017 [facility] [place] Diastolic (mm Hg) 68 05/07/2017 [facility] [place] Respitory Rate 16 05/07/2017 [facility] [place] Temperature Oral (F) 98.0 F 05/07/2017 [facility] [place] Temperature Oral (F) 97.7 F 05/07/2017 [facility] [place] Systolic (mm Hg) 111 05/07/2017 [facility] [place] Diastolic (mm Hg) 65 05/07/2017 [facility] [place] Heart Rate 70 05/07/2017 [facility] [place] Respitory Rate 17 05/07/2017 [facility] [place] Weight 61.364 05/06/2017 [facility] [place] Temperature Oral (F) 98.2 F 05/06/2017 [facility] [place] Heart Rate 83 05/06/2017 [facility] [place] Respitory Rate 18 05/06/2017 [facility] [place] Systolic (mm Hg) 102 05/06/2017 [facility] [place] Diastolic (mm Hg) 55 05/06/2017 [facility] [place] Heart Rate 79 01/23/2013 [facility] Temperature Oral (F) 98.1 F 01/23/2013 [facility] Respitory Rate 18 01/23/2013 [facility] ion Center Systolic (mm Hg) 133 01/23/2013 [facility] dical Center Diastolic (mm Hg) 69 01/23/2013 [facility] edical Center Diastolic (mm Hg) 68 01/23/2013 [facility] edical Center Systolic (mm Hg) 129 01/23/2013 [facility] dical Center Heart Rate 67 01/23/2013 [facility] l Center Respitory Rate 18 01/23/2013 [facility] ion Center Temperature Oral (F) 98.4 F 01/23/2013 [facility] Heart Rate 65 01/23/2013 [facility] Systolic (mm Hg) 106 01/23/2013 [facility] dical Center Respitory Rate 18 01/23/2013 [facility] ion Center Diastolic (mm Hg) 59 01/23/2013 [facility] edical Center Temperature Oral (F) 98.5 F 01/23/2013 [facility] Height 158.4 cm 01/20/2013 [facility] Height 160.02 cm 01/20/2013 [facility] Medica l Center Weight 65 01/20/2013 [facility] Weight 65 01/16/2013 [facility] Diastolic (mm Hg) 78 01/16/2013 [facility] edical Center Systolic (mm Hg) 119 01/16/2013 [facility] dical Center Temperature Oral (F) 98.5 F 01/16/2013 [facility] Respitory Rate 18 01/16/2013 [facility] Center Heart Rate 87 01/16/2013 [facility] Encounters Location Location Encounter Encounter Reason Attending ADM RI Stat us Source Details Type Number For Provider Date Date Visit [facility] Outpatient [id number] ABD ATILLA 01/16 Active [facility] Medical 0 [facility] RAULITO [id number] ATILLA 01/19 01/19 Discharg M [facility] Medical 1 ERTAN /2012 [facility] Center [facility] Inpatient [id number] HILARY 01/20 01/23 Dischar g [facility] Medical 3 SAJJA /[facility] [id number] Bryan 05/06 05/07 [facility] 4 [place] /[address] [place] [facility] [place] [id number] ANGELA 07/15 [facility] [place] [facility] [id number] ANGELA 07/15 [facility] [id number] Angela 08/03 Active [facility] [place] Outpatient [id number] ANGELA / Active [facility] Phone [id number] 08/18 08/20 [facility] [place] [facility] [id number] Angela 09/08 [facility] Outpatient [id number] Angela 09/08 09/09 [facility] 4 [facility] [place] Outpatient [id number] Angela 10/19 Active [facility] [place] [facility] Outpatient [id number] Angela 10/19 10/20 [facility] 5 [facility] [place] Outpatient [id number] Angela 12/21 Active [facility] Outpatient [id number] Angela 12/21 12/22 [facility] 6 [facility] [place] Outpatient [id number] Angela 03/15 Active [facility] Outpatient [id number] Angela 03/15 03/16 [facility] [place] Outpatient [id number] Angela 03/22 Active [facility] [place] [facility] Outpatient [id number] Angela 03/22 03/23 [facility] 8 [facility] [place] Outpatient [id number] Angela 05/05 Active [facility] Outpatient [id number] Angela 05/05 05/06 [facility] 9 [facility] [place] Outpatient [id number] Angela 08/03 Active [facility] Ambulatory [id number] Angela 08/03 08/03 [facility] Pre-Reg 0 [facility] [id number] Afnan 10/30 10/[address] /2019 [facility] Outpatient [id number] POST ATILLA Cancel [facility] 2 FOLLOW [facility] Center Procedures Procedure Code Date Perfomer Comments Source cholecys [id number] 1gall bladder 2011 [facility] as <sup>1</sup> minicus in right knee 2 011 Medical bladder repair [place] appendectomy 1992 total hysterectomy 1979 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 cholecys<sup>1< [id number] gall bladder 2011 [place] elizabeth /sup> minicus in right knee 201 1 Neuro, bladder repair [facility] appendectomy 1992 [place], total hysterectomy 1979 P [place] 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 Assessment and Plan Assessment and Plan Date Source Extracted from:Title: History and Physical 10/31/2019 [facility] Author: Smith Estevez DO Date: 10/31/19 The patient is a 63 year old woman with PMH of HTN, meralgia paresthetica s/p recent lumbosacral plexopathy on 08/2019, cervical spondylosis who was transferred from [facility] to findings of PE and pulmonary [...] with Observation Services, Telemetry Capable Location, Location: [address] [place] [address], Expected LOS: 2 Midnights, Yung Busch DO, [...] History Date Source Social History TypeResponse 10/31/2019 [facility] Alcohol Never Employment/School 1 Substance Abuse Use: [...]
--- OUTSIDE RECORDS SUMMARY | 2020-01-07 12:21 | XMS REPORT | Continuity of Care Document ---
:1955 Author Organization [facility] t Address [address] [place] [address] Care Team Providers Name Role Phone Nayla Alonzo MD Primary Care Physician Florentin Busch Attending Clinician Lauryn Fountain MD Attending Clinician Chel Florian MD Attending Clinician Danae TAYLOR Attending Clinician Wanda Suarez NP Attending Clinician Reza CHERY, S. Attending Clinician Chaparro RAVI Attending Clinician Unavailable Vahe HOYT Attending Clinician Unavailable Tulio Palacios Attending Clinician Kevin Stiles Attending Clinician [facility] Attending Clinician Unavailable Danitza Sotelo MD Attending Clinician Tima Melton Jr Attending Clinician Mike Hannah Admitting Clinician ANIVAL Admitting Clinician Unavailable Payers Payer Name Policy Policy Number Effective Expiration Source Type Date Date CIGNA - MGD CARECIGNA xxxxxxxxx [facility] HMO/POS/OPEN - Medical ACCESSxxxxxxxxxHMO/PO Reva ter S MEDICAREMEDICARE PART xxxxxxxxxxx 2018 Francisco J alex Brown AND 00:00:00 Christian Bxxxxxxxxxxx2018- Arabella PAMedicare COMMERCIAL MISCMISC xxxxxxxxx 2009 [place] COMMERCIALxxxxxxxxx1/ 00:00:00 Met anjali 05/2009-PresentCommerc ial Problems Condition Condition Condition Status Onset Resolution Last Treating Co mments Source Name Details Category Date Date Treatment Clinician Date PE, Diagnosis Active 2019-11-01 Mem oria PULMONARY 10-29 14:09:00 l DVT LEFT PE, 00:00: [place] LEG PULMONARY 00 DVT LEFT LEG Active 10/30/2019 [facility] Follow-up Follow-up Disease Active Lacho romero examinatio examinatio 6-18 Me thodi n n 00:00: st following following 00 surgery surgery S/P lumbar S/P lumbar Disease Active H dany laminectom laminectom 5-19 Me thodi y y 00:00: st 00 DDD DDD Disease Active [place] (degenerat (degenerat 4-13 Me thodi jhon disc jhon disc 00:00: st disease), disease), 00 lumbar lumbar Spinal Spinal Disease Active [place] stenosis stenosis 4-13 Method i of lumbar [...] stenosis stenosis 00 PAD PAD Disease Active [place] (periphera (periphera 2-04 Me thodi l artery l artery 00:00: st disease) disease) 00 Chronic Chronic Disease Active [place] back pain back pain 6-05 Meth nik 00:00: st 00 Generalize Generalize Disease Active H dany d d 4-30 Methodi abdominal abdominal 00:00: st pain pain 00 Right Right Disease Active [place] upper upper 07-26 Methodi quadrant quadrant 00:00: st pain pain 00 Slow Slow Disease Active [place] transit transit 07-26 Methodi constipati constipati 00:00: st on on 00 History of History of Disease Active H dany cholecyste cholecyste 07-26 Me thodi ctomy ctomy 00:00: st 00 Essential Essential Disease Active Lacho ston hypertensi hypertensi 07-26 Me thodi on on 00:00: st 00 Splenic Splenic Disease Active [place] artery artery 07-26 Methodi aneurysm aneurysm 00:00: st 00 Anxiety Anxiety Disease Active [place] 07-26 Methodi 00:00: st 00 ABDOMINAL Diagnosis Active 2017-05-06 Memoria PAIN/LOSS 05-06 18:11:00 l OF 00:00: Agus APPETITE ABDOMINAL 00 PAIN/LOSS OF APPETITE Active 05/06/2017 [facility] SURGERY Diagnosis Active 2013-01-20 Me moria THIS 01-19 08:28:00 l MORNING, SURGERY 00:00: Maria E nn PROBLEMS THIS 00 BREATHING MORNING, PROBLEMS BREATHING Active 01/19/2013 [facility] POST Diagnosis Active 2013-03-05 Mem oria FOLLOW UP 01-19 15:20:00 l POST 00:00: [place] FOLLOW UP 00 Active 01/19/2013 [facility] BDDC-WEIGH Diagnosis Active 2013-01-19 Memoria T LOSS 01-17 08:37:00 l 00:00: Agus BDDC-WEIGH 00 T LOSS Active 01/17/2013 [facility] 783.21 - Diagnosis Active 2013-12-25 M emoria ABNORMAL 01-16 02:47:00 l LOSS O 783.21 - 00:01: Dwight n 576.0 - ABNORMAL 00 POSTCHO LOSS O 576.0 - POSTCHO Active 01/16/2013 MARIA VICTORIA Sauer ABD PAIN Diagnosis Active 2013-01-16 M emoria 01-11 13:45:00 l ABD PAIN 00:00: Dwight n 00 Active 01/11/2013 [facility] Acid Problem Resolve 2013-01-25 Abdiel leigh ann reflux d 21:01:15 l Acid [place] reflux Resolved Problem 01/25/2013 [facility] HTN - Problem Resolve 2013-01-25 Abdiel leigh ann Hypertensi d 21:01:15 l on HTN - [place] Hypertensi on Resolved Problem 01/25/2013 [facility] Gastroesop Problem Resolve 2019-11-02 Memoria hageal d 22:38:04 l reflux [place] disease Gastroesop (disorder) hageal reflux disease (disorder) Resolved Problem 11/02/2019 [facility] Lumbosacra Problem Resolve 2019-11-02 Memoria l plexus d 22:38:04 l neuropathy Dwight n (disorder) Lumbosacra l plexus neuropathy (disorder) Resolved Problem 11/02/2019 [facility] Cervical Problem Active 2019-11-02 Mem oria spondylosi 22:38:04 l s Cervical Dwight n (disorder) spondylosi s (disorder) Active Problem 11/02/2019 [facility] Hypertensi Problem Active 2019-11-02 M emoria ve 22:38:04 l disorder, Agus systemic Hypertensi arterial ve (disorder) disorder, systemic arterial (disorder) Active Problem 11/02/2019 [facility] Menopausal Problem Active 2019-11-02 M emoria syndrome 22:38:04 l (disorder) Dwight n Menopausal syndrome (disorder) Active Problem 11/02/2019 [facility] Meralgia Problem Active 2019-11-02 Mem oria parestheti 22:38:04 l ca Meralgia Dwight n (disorder) parestheti ca (disorder) Active Problem 11/02/2019 [facility] Pituitary Problem Active 2019-11-02 Me moria adenoma 22:38:04 l (disorder) Dwight n Pituitary adenoma (disorder) Active Problem 11/02/2019 Data migrated from [facility] on 12/25/14. [facility] Ulcer of Problem Active 2019-11-02 Mem oria lower 22:38:04 l extremity Ulcer of Her melendez (disorder) lower extremity (disorder) Active Problem 11/02/2019 [facility] ABDMNAL Diagnosis Active 2013-01-20 Me moria PAIN 08:28:00 l UNSPCF ABDMNAL Agus SITE PAIN UNSPCF SITE Active [facility] Unspecifie Problem 2017-2017-05-09 2017-05-09 Memoria d 1-04 05:06:50 05:06:50 l abdominal 06:00: Agus pain Unspecifie 00 d abdominal pain 05/06/2017 05/09/2017 [facility] Allergies, Adverse Reactions, Alerts Allergy Allergy Status Severity Reaction(s) Onset Inactive Treating Comm ents Source Name Type Date Date Clinician Morphine Propensi Active Other (See Makes her [place] ty to Comments) 01-15 loud and Metho di adverse 00:00: crazy st reaction 00 s to drug Diazepam Propensi Active Other (See Makes her [place] ty to Comments) 01-15 crazy and Meth [...] midazola DA Active SV 2009-05 [facility] 05-13 00:00: [address] diazepam DA Active SV 2009-05 [facility] 05-13 00:00: [address] morphine DA Active MO 2009-05 [facility] 05-13 00:00: [address] Valium Valium Active Memoria l [place] morphine morphine Active Memori a l Agus cortison cortison Active Memori a e e l Agus Family History Family Member Diagnosis Comments Start Date Stop Date Source Natural father Cancer [place] Me thodist Natural father Liver cancer [place] Christian Natural father Liver disease [place] Christian Natural father Lung cancer [facility] ethodist Maternal grandfather Heart disease H dany Christian Maternal grandfather Hypertension [place] Christian Maternal grandmother Heart disease H dany Christian Maternal grandmother Hypertension Ho a[place] Christian Natural mother Cancer [place] Me thodist Natural mother Colon cancer [place] Natural mother Ovarian cancer [place] Natural mother Stomach cancer [place] Social History Social Habit Start Date Stop Date Quantity Comments Source Sex Assigned At [facility] ethodist Alcohol intake 2019-09-20 2019-09-20 Current [facility] thodist 00:00:00 00:00:00 non-drinker of alcohol (finding) Social History 2017-05-07 2017-05-07 [facility] ermann 04:13:00 04:13:00 Smoking Status Start Date Stop Date Source Never smoker [place] Autumn t Medications Ordered Filled Start Stop Current Ordering Indication Dosage Frequency Signature Comments Components Source Medication Medication Date Date Medication? Clinician (SIG) Name Name remove No Notes: Memoria patch 10-31 Remove l 05:40: patch 12 Agus 00 hours after applicatio n each day. sennosides, No Notes: Abdiel leigh ann [facility] 10-31 (Same as: l 02:00: Senokot) [place] 00 tramadol No Notes: Not Mem oria hydrochlori 6-30 to exceed l de 50 MG 19:00: 400mg/day. Her melendez Oral Tablet 00 (Same As: Ultram) Lidocaine Yes 1 patch, Abdiel leigh ann Hydrochlori 6-30 TOP, l de 0.05 17:45: Daily, [place] MG/MG 00 Remove Transdermal after 12 Patch hours, # [Lidoderm] 30 patch, 0 Refill(s), Pharmacy: [facility] [address] [id number], 167.64, cm, 10/31/19 2:23:00 CDT, [...] 79.091, kg, 10/31/19 2:23:00 CDT, Weight Lidocaine No Notes: Memori a Hydrochlori 6-30 Apply [...] Dwight n release 00 Refill(s) capsule Acetaminoph 2020-0 Yes 1 tab, PO, Memoria en 325 MG / 6-30 Q6H, PRN l Oxycodone 16:11: for pain, Her melendez Hydrochlori 00 0 de 10 MG Refill(s) Oral Tablet POLYETHYLEN 2019-0 No Notes: Abdiel leigh ann E GLYCOL 6-30 Dissolve l 3350 14:00: in 8 oz of water or juice. (Same as: Miralax) Aspirin 81 2020-0 No Notes: Do Me moria MG Enteric 6-30 not crush l Coated 14:00: or chew. [place] Tablet 00 (Same As: Ecotrin) Prilosec 2020-0 No 20 mg, Memoria 6-30 Route: PO, l 14:00: Daily, Agus 00 Dosing Weight 83.636, kg, Start date: 10/31/19 9:00:00 CDT, Duration: 30 day, Stop date: 11/29/19 9:00:00 CDT pregabalin 2020-0 No Notes: Memor ia 6-30 (Same as: l 14:00: Lyrica) [place] 00 quinapril 2020-0 No 20 mg, 1 Abdiel leigh ann 6-30 tab, l 14:00: Route: PO, [place] 00 Drug form: TAB, Daily, Dosing Weight 83.636, kg, Start date: 10/31/19 9:00:00 CDT, Duration: 30 day, Stop date: 11/29/19 9:00:00 CDT Protonix 2019-0 No Notes: Memoria 6-30 Tablet l 14:00: should not Agus 00 be chewed or crushed. (Same as: Protonix) Acetaminoph No Notes: Abdiel leigh ann en 325 MG / 6-30 (Same as: l Hydrocodone 08:17: [place] Maria E nn Bitartrate 00 325/5) Do 5 MG Oral not exceed Tablet 4gm/day of [[place] acetaminop 5/325] hen. Hydromorpho No Notes: Abdiel leigh ann ne 6-30 Same as l 08:16: Dilaudid [place] 00 Heparin 80 No Route: Memor ia unit/kg 6-30 IVP, PRN, l Bolus 07:25: 5,400 [place] (Heparin 00 unit, 5.4 Dosing mL, Drug [...] 6-30 Total l 25,000 unit 07:25: Concentrat [place] [18 00 ion = 50 unit/kg/hr] unit/ ml + Premix Total Diluent volume = Sodium 500 ml Chloride Send Med 0.45% 500 Request 2 mL hours prior to next bag Acetaminoph No Notes: Do M emoria en 325 MG / 6-30 not exceed l Hydrocodone 07:17: 4gm/day of [place] Bitartrate 00 acetaminop 10 MG Oral hen. Tablet (Same as: [place] 325/10) clorazepate No Notes: Abdiel leigh ann 6-30 (Same As: l 07:17: Tranxene-T [place] 00 ) tizanidine No Notes: Memor ia 6-30 (Same As: l 07:17: Zanaflex) [place] 00 pregabalin 2020-0 Yes 100 mg = 1 M emoria 100 mg oral 6-30 cap, PO, l capsule 07:11: QID, # 90 Maria E nn 00 cap, 0 Refill(s) tizanidine 2020-0 No 4 mg = 1 Mem oria 4 mg oral 6-30 tab, PO, l tablet 07:11: Q8H, PRN for muscle spasms, # 90 tab, 0 Refill(s) clorazepate 2019-0 No 7.5 mg = 1 Memoria 7.5 mg oral 6-30 tab, PO, l tablet 07:11: TID, PRN Anxiety, 0 Refill(s) linaclotide 2019-0 Yes 145 Memori a 0.145 MG 6-30 microgram l Oral 07:11: = 1 cap, Agus Capsule 00 PO, Daily, [Linzess] 30 minutes prior to the first meal of the day, # 30 cap, 0 Refill(s) Dextrose 2019-0 No 12.5 gm, Memor ia 50% Syringe [...] Notes: Abdiel leigh ann 6-30 (Same as: larry 07:06: Zofran) MEDICATION WASTE Product Size: 4 mg Product Wasted: ___ mg Melatonin 2019-0 No Notes: Memori a 6-30 (Same as: larry 07:06: Melatonin) doxycycline 2020-0 2020- No 100mg QD Take 100 Yoo (VIBRAMYCIN 5-22 05-22 mg by Method i ) 100 MG 11:10: 00:[address] capsule 38 :00 daily. pregabalin 2020-0 Yes 100mg [id number] Take 100 Yoo (LYRICA) 5-22 [id number] mg by Meth nik 100 MG 11:10: 3D mouth 3 st capsule 32 (three) times a day. quinapril 2020-0 Yes 20mg QD Take 20 mg [place] (ACCUPRIL) 5-22 by mouth Metho di 20 MG 11:10: nightly. st tablet 32 HYDROcodone 2020-0 Yes acute pain 1{tbl} [id number] Take 1 Yoo -acetaminop 5-22 [id number] tablet by Methodi hen (NORCO) 11:10: 3D [...] 300 mg 29 :00 daily. capsule magnesium 2019- No 400mg QD Take 400 [place] oxide 2-04 02-04 mg by Methodi (MAG-OX) 09:49: 00:[address] 400 mg 25 :00 daily. tablet CHOLECALCIF 2019- No 2000U QD Take 2,000 Yoo MONICA, 2-04 02-04 Units by Methodi VITAMIN D3, 09:48: 00:[address] (D3-2000 48 :00 daily. ORAL) multivitami 2019-2019- No 1{tbl} QD Take 1 [place] [...] M emoria Conjugated 8-22 tab, PO, l (CH[facility]) 0.3 13:52: Daily, # Herm emmett MG [...] PO, l oral tablet 15:16: Bedtime, # [place] 24 180 tab, 3 Refill(s), Pharmacy: [facility] #[id number] amitriptyli 2019- No 20 mg = 2 [place] ne (ELAVIL) 4-18 05-11 tab, PO, Met hodi 10 MG 00:00: 00:00 Bedtime, # st tablet 00 :00 180 tab, 3 Refill(s), Pharmacy: [facility] #[id number] CREON 2019- No TAKE ONE [place] 12,000-38,0 4-02 02-04 CAPSULE BY Fabian domingo 00 -60,000 00:00: [...] 3) Ondansetron No Notes: Abdiel leigh ann 05-06 (Same as: l 18:46: Zofran) MEDICATION WASTE Product Size: 4 mg Product Wasted: ___ mg Sodium No 1,000 mL, Memori a Chloride 05-06 1000 l 0.9% 18:46: ml/hr, Agus (Bolus) IV 00 Infuse Over: 1 hr, Route: IV, 1,000, Drug form: INJ, ONCE, Priority: STAT, Dosing Weight 61.364 kg, Start date: 05/06/17 12:46:00 [employer]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, Stop date: 05/06/17 12:46:00 [employer]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 Saline No Notes: Memoria Flush 0.9% -04 (Same as: l 18:46: BD [place] 00 Posiflush) potassium 2016-05- No 10meq QD [...] oral - Sajja tab, PO, l tablet 16:09: Q8H, PRN, Dwight n 57 30 tab, as needed for pain, Substituti on Allowed, TAB tramadol 50 No [place] 50 mg, 1 Memoria mg oral 01-23 Sajja tab, PO, l tablet 16:02: Q8H, PRN, Dwight n 01 10 tab, as needed for pain, Substituti on Allowed, TAB [place] No [place] 1 tab, Memoria 10/325 oral [...] Duration: 30 day, Stop date: 02/21/13 12:16:00 [place] 0 No [place] 1 tab, Memoria 325 oral 01-22 Sajja Route: PO, l tablet 07:14: Drug Form: Maria E nn 00 TAB, Dosing Weight 65, kg, Q4H, PRN Pain, NOW, Start date: 01/22/13 2:14:00, Duration: 30 day, Stop date: 02/21/13 2:13:00 Remeron No [place] 15 mg, 1 Abdiel leigh ann 01-22 Sajja tab, l 02:00: Route: PO, [place] 00 Drug form: TAB, Bedtime, Dosing Weight 65, [...] 30 day, Stop date: 02/20/13 15:43:00 Dilaudid 2012-0 No [place] 0.5 mg, Abdiel leigh ann 01-21 Sajja 0.25 mL, l 19:32: Route: IV, Drug form: INJ, ONCE, Dosing Weight 65, kg, Start date: 01/21/13 14:32:00, Stop date: 01/21/13 14:32:00 Dilaudid 2012-0 No [place] 0.5 mg, Abdiel leigh ann 01-21 Sajja 0.25 mL, l 14:39: Route: IV, Drug form: INJ, Q8H, Dosing Weight 65, kg, PRN as needed for pain, Start date: 01/21/13 9:39:00, Duration: 30 day, Stop date: 02/20/13 9:38:00 senna 8.6 2012-0 No [place] 8.6 mg, 1 M emoria mg oral 01-21 Sajja tab, l tablet 14:39: Route: PO, Drug Form: TAB, Dosing Weight 65, kg, BID, PRN as needed for constipati on, Start date: 01/21/13 9:39:00, Duration: 30 day, Stop date: 02/20/13 9:38:00 MiraLax 2012-0 No [place] 17 gm, 1 Abdiel leigh ann 01-21 Sajja pkt, l 14:38: Route: PO, Drug form: PWDR, Daily, Dosing Weight 65, kg, PRN Constipati on, Start date: 01/21/13 9:38:00, Duration: 30 day, Stop date: 02/20/13 9:37:00 tramadol 50 2012- No [place] 50 mg, 1 Memoria mg oral 01-21 tab, l tablet 14:38: Route: PO, Maria [...] 30 day, Stop date: 02/19/13 9:00:00 Dilaudid No Elyssa 0.5 mg, Abdiel leigh ann 01-21 Luis 0.25 mL, l 03:21: Route: IV, Drug form: INJ, ONCE, Dosing Weight 65, kg, PRN as needed for pain, Start date: 01/20/13 22:21:00 Zosyn 2012- No [place] 3.375 gm, Memor ia 01-20 Route: l 16:00: IVPB, Drug form: PDR/INJ, ABXQ8H, Start date: 01/20/13 11:00:00, Stop date: 02/19/13 2:00:00 enoxaparin No Elyssa 40 mg, 0.4 Memoria 01-20 Luis mL, Route: l 11:00: SUB-Q, Drug form: INJ, [id number], Dosing Weight 65, kg, Start date: 01/20/13 6:00:00, Duration: 30 day, Stop date: 02/18/13 6:00:00 NS + KCL No Elyssa 1,000 mL, Me moria 20mEq/L 9-20 Luis Rate: 125 l 1000ml 10:25: ml/hr, [place] (Premix) 00 Infuse 1,000 mL over: 8 hr, Route: IV, Dosing Weight 65 kg, Total Volume: 1,000, Start date: 01/20/13 5:25:00, Duration: 30 day, Stop date: 02/19/13 5:24:00 Zosyn No Elyssa 3.375 gm, Memor ia -20 Luis Route: l 10:24: IVPB, Drug form: INJ, Q6H, Dosing Weight 65, kg, Priority: STAT, Start date: 01/20/13 5:24:00, Duration: 30 day, Stop date: 02/19/13 0:00:00 Dilaudid No [place] 0.5 mg, Abdiel leigh ann -20 Sajja 0.25 mL, l 10:23: Route: IV, Drug form: INJ, Q4H, Dosing Weight 65, kg, PRN as needed for pain, Start date: 01/20/13 5:23:00, Duration: 30 day, Stop date: 02/19/13 5:22:00 docusate Yes Substituti Mem oria 20 on Allowed l 10:21: Agus 15 ondansetron No Elyssa 4 mg, 2 M emoria -20 Luis mL, Route: l 10:15: IVP, Drug form: INJ, Q8H, Dosing Weight 65, kg, PRN Nausea & Vomiting, Start date: 01/20/13 5:15:00, Duration: 30 day, Stop date: 02/19/13 5:14:00 NS 1,000 mL No Peter 1,000 mL, Memoria 9-20 Hardeep Rate: 75 l 09:41: Catherine ml/hr, Agus Infuse over: 13.3 hr, Route: IV, Dosing Weight 65 kg, Total Volume: 1,000, Start date: 01/20/13 4:41:00, Duration: 30 day, Stop date: 02/19/13 4:40:00 Zosyn No [place] 3.375 gm, Memor ia 9-20 Sajja Route: l 08:51: IVPB, Drug [place] 00 form: PDR/INJ, ONCE, Dosing Weight 65, [...] -20 Hardeep microgram, l 04:31: Catherine Route: [place] 00 IVP, ONCE, Dosing Weight 65, kg, [...] ONLY" NS (Bolus) Cinthya Dorsey 1,000 mL, M emoria IV 1000 mL 01-20 Hardeep Rate: l 03:38: Catherine 1,000 Agus 00 ml/hr, Infuse over: 1 hr, Route: IV, Dosing Weight 65 kg, Total Volume: 1,000, Priority: STAT, Start date: 01/19/13 22:38:00, Duration: 1 doses or times, Stop date: 01/19/13 23:37:00, Bolus DoseBolus Dose fentanyl No Peter 50 Memoria 9-20 Hardeep microgram, l 03:13: Catherine 1 mL, [place] 00 Route: IVP, Drug form: INJ, ONCE, [...] Systolic (mm Hg) 2019-10-31 20:24:00 Abdiel rial Agus Diastolic (mm Hg) 2019-10-31 20:24:00 Mem orial [place] Temperature Oral (F) 2019-10-31 16:12:00 98.2 F Memorial Agus Heart Rate 2019-10-31 16:12:00 Memorial Agus Respitory Rate 2019-10-31 16:12:00 Memori al [place] Systolic (mm Hg) 2019-10-31 16:12:00 Abdiel rial [place] Diastolic (mm Hg) 2019-10-31 16:12:00 Mem orial Agus Temperature Oral (F) 2019-10-31 12:25:00 97.9 F [facility] [place] Heart Rate 2019-10-31 12:25:00 Memorial Agus Respitory Rate 2019-10-31 12:25:00 Memori al Agus Systolic (mm Hg) 2019-10-31 12:25:00 Abdiel rial Agus Diastolic (mm Hg) 2019-10-31 12:25:00 Mem orial [place] Height 2019-10-31 07:23:00 167.64 cm Memorial Agus Weight 2019-10-31 07:23:00 Memorial Agus BMI Calculated 2019-10-31 07:23:00 Memori al [place] Systolic blood 2019-09-22 07:44:14 153 mm[Hg] [place] pressure Diastolic blood 2019-09-22 07:44:14 70 mm[Hg] [place] pressure Heart rate 2019-09-22 07:44:14 65 /min [place] Christian Body temperature 2019-09-22 07:44:14 36.78 Radha [place] Respiratory rate 2019-09-22 07:44:14 18 /min [place] Oxygen saturation in 2019-09-22 07:44:14 97 /min Yoo Christian Arterial blood by Pulse oximetry Body height 2019-09-19 10:00:00 167.6 cm Yoo Christian Body weight 2019-09-19 10:00:00 80.241 kg Yoo Christian BMI 2019-09-19 10:00:00 28.55 kg/m2 Yoo Christian Systolic (mm Hg) 2019-05-05 16:51:00 Abdiel rial [place] Diastolic (mm Hg) 2019-05-05 16:51:00 Mem orial Agus Heart Rate 2019-05-05 16:51:00 Memorial Agus Respitory Rate 2019-05-05 16:51:00 Memori al Agus Height 2019-05-05 16:51:00 165.1 cm [facility] [place] Weight 2019-05-05 16:51:00 Memorial Agus BMI Calculated 2019-05-05 16:51:00 Memori al [place] Systolic (mm Hg) 2019-03-22 17:27:00 Abdiel rial Agus Diastolic (mm Hg) 2019-03-22 17:27:00 Mem orial [place] Heart Rate 2019-03-22 17:27:00 [facility] [place] Respitory Rate 2019-03-22 17:27:00 Memori al Agus Height 2019-03-22 17:27:00 165.1 cm Memorial Agus Weight 2019-03-22 17:27:00 [facility] [place] BMI Calculated 2019-03-22 17:27:00 Memori al Agus Systolic (mm Hg) 2019-03-15 17:56:00 Abdiel rial [place] Diastolic (mm Hg) 2019-03-15 17:56:00 Mem orial [place] Heart Rate 2019-03-15 17:56:00 Memorial Agus Respitory Rate 2019-03-15 17:56:00 Memori al Agus Height 2019-03-15 17:56:00 165.1 cm [facility] Agus Weight 2019-03-15 17:56:00 [facility] [place] BMI Calculated 2019-03-15 17:56:00 Memori al Agus Systolic (mm Hg) 2018-12-21 16:44:00 Abdiel rial [place] Diastolic (mm Hg) 2018-12-21 16:44:00 Mem orial Agus Heart Rate 2018-12-21 16:44:00 [facility] Agus Respitory Rate 2018-12-21 16:44:00 Memori al [place] Height 2018-12-21 16:44:00 165.1 cm Memorial Agus Weight 2018-12-21 16:44:00 [facility] Agus BMI Calculated 2018-12-21 16:44:00 Memori al Agus BMI Calculated 2018-10-19 16:19:00 Memori al [place] Height 2018-10-19 16:19:00 167.64 cm [facility] [place] Weight 2018-10-19 16:19:00 [facility] Agus Systolic (mm Hg) 2018-10-19 16:19:00 Abdiel rial [place] Diastolic (mm Hg) 2018-10-19 16:19:00 Mem orial [place] Respitory Rate 2018-10-19 16:19:00 Memori al Agus Heart Rate 2018-10-19 16:19:00 [facility] Agus BMI Calculated 2018-09-08 19:24:00 Memori al Agus Weight 2018-09-08 19:24:00 [facility] Agus Height 2018-09-08 19:24:00 167.64 cm [facility] Agus Respitory Rate 2018-09-08 19:24:00 Memori al [place] Heart Rate 2018-09-08 19:24:00 [facility] [place] Systolic (mm Hg) 2018-09-08 19:24:00 Abdiel rial [place] Diastolic (mm Hg) 2018-09-08 19:24:00 Mem orial Agus Heart Rate 2017-05-07 04:11:00 [facility] [place] Systolic (mm Hg) 2017-05-07 04:11:00 Abdiel rial [place] Diastolic (mm Hg) 2017-05-07 04:11:00 Mem orial Agus Respitory Rate 2017-05-07 04:11:00 Memori al [place] Temperature Oral (F) 2017-05-07 04:11:00 98.0 F [facility] Agus Temperature Oral (F) 2017-05-07 02:30:00 97.7 F [facility] Agus Systolic (mm Hg) 2017-05-07 02:30:00 Abdiel rial Agus Diastolic (mm Hg) 2017-05-07 02:30:00 Mem orial Agus Heart Rate 2017-05-07 02:30:00 [facility] [place] Respitory Rate 2017-05-07 02:30:00 Memori al Agus Weight 2017-05-06 18:43:00 [facility] [place] Temperature Oral (F) 2017-05-06 18:43:00 98.2 F [facility] Agus Heart Rate 2017-05-06 18:43:00 [facility] Agus Respitory Rate 2017-05-06 18:43:00 Memori al Agus Systolic (mm Hg) 2017-05-06 18:43:00 Abdiel rial Agus Diastolic (mm Hg) 2017-05-06 18:43:00 Mem orial Agus Heart Rate 2013-01-23 12:37:00 [facility] [place] Temperature Oral (F) 2013-01-23 12:37:00 98.1 F [facility] Agus Respitory Rate 2013-01-23 12:37:00 Memori al Agus Systolic (mm Hg) 2013-01-23 12:37:00 Abdiel rial [place] Diastolic (mm Hg) 2013-01-23 12:37:00 Mem orial [place] Diastolic (mm Hg) 2013-01-23 10:13:00 Mem orial [place] Systolic (mm Hg) 2013-01-23 10:13:00 Abdiel rial Agus Heart Rate 2013-01-23 10:13:00 [facility] Agus Respitory Rate 2013-01-23 10:13:00 Memori al Agus Temperature Oral (F) 2013-01-23 10:13:00 98.4 F [facility] [place] Heart Rate 2013-01-23 00:10:00 [facility] [place] Systolic (mm Hg) 2013-01-23 00:10:00 Abdiel rial Agus Respitory Rate 2013-01-23 00:10:00 Memori al [place] Diastolic (mm Hg) 2013-01-23 00:10:00 Mem orial Agus Temperature Oral (F) 2013-01-23 00:10:00 98.5 F [facility] [place] Height 2013-01-20 14:20:00 158.4 cm Memorial Agus Height 2013-01-20 01:53:00 160.02 cm [facility] Agus Weight 2013-01-20 01:53:00 [facility] Agus Weight 2013-01-16 19:03:00 [facility] Agus Diastolic (mm Hg) 2013-01-16 19:03:00 Mem orial Agus Systolic (mm Hg) 2013-01-16 19:03:00 Abdiel rial [place] Temperature Oral (F) 2013-01-16 19:03:00 98.5 F [facility] Agus Respitory Rate 2013-01-16 19:03:00 Memori al [place] Heart Rate 2013-01-16 19:03:00 [facility] Agus Procedures [...] TIME WITH INR 2019-09-20 17:20:00 Benita Shepherd PARTIAL THROMBOPLASTIN 2019-09-20 17:20:00 Benita Shepherd Christian TIME (PTT) BASIC METABOLIC PANEL 2019-09-20 17:20:00 Benita Shepherd brenton Cardosoist IONIZED CALCIUM 2019-09-20 17:20:00 Benita Shepherd Me thodist MAGNESIUM LEVEL 2019-09-20 17:20:00 Benita Shepherd Me thodist PHOSPHORUS LEVEL 2019-09-20 17:20:00 Benita Shepherd M ethodist TROPONIN 2019-09-20 17:20:00 Benita Shepherd [facility] ESTIMATED GFR 2019-09-20 17:20:00 Benita Shepherd [facility] ECG 12-LEAD 2019-09-20 16:27:56 Benita Shepherd [facility] POC GLUCOSE 2019-09-20 16:25:00 Raffi Florian Meth odist ANESTHESIA INTUBATION 2019-09-19 15:59:28 Douglas Gilmore uston Christian [place] AN ELECTIVE 2019-09-19 15:51:07 Douglas Gilmore [...] CT POST MYELOGRAM 2019-09-06 12:33:08 Raffi Florian Dc thodist THORACIC CT POST MYELOGRAM LUMBAR 2019-09-06 12:32:32 Raffi Florian IR MYELOGRAM 2+REG INCL 2019-09-06 11:12:24 Raffi Florian INJ W S&I XR LUMBAR SPINE COMPLETE 2019-08-14 11:06:30 Raffi Florian W BENDING XR SPINE SCOLIOSIS 2-3 2019-08-14 11:06:00 Raffi Florian on Christian VIEWS US CAROTID DUPLEX 2019-06-13 10:00:00 Silvio Sotelo Dc thodist BILATERAL CT ANGIOGRAM ABDOMINAL 2019-06-06 17:02:20 Silvio Sotelo on Christian AORTA AND BILATERAL ILIOFEMORAL RUNOFF W WO CONTRAST POC CREATININE 2019-06-06 15:21:00 Jose Moreno ESTIMATED GFR 2019-06-06 15:21:00 Jose Moreno BASIC METABOLIC PANEL 2019-06-06 11:02:00 Silvio Sotelo COPY(IES) SENT TO: 2019-06-06 11:02:00 Silvio Sotelo M ethodist COPY RECEIVED FROM: 2019-06-06 11:02:00 Silvio Sotelo ECG 12-LEAD 2019-06-06 09:55:18 Silvio Sotelo Meth odist MRI SPINE EXTERNAL STUDY 2019-03-06 15:47:00 Raffi Florian cholecys <sup>1</sup> [facility] ermann cholecys<sup>1</sup> [facility] rmann Plan of Care Planned Activity Planned Date Details Comments Source Future Scheduled 2020-02-01 INFLUENZA VACCINE Anita Campbell Test 00:00:00 [code = INFLUENZA VACCINE] Future Scheduled 2018 65+ PNEUMOCOCCAL Fredo Campbell Test 00:00:00 VACCINE (1 of 2 - PCV13) [code = 65+ PNEUMOCOCCAL VACCINE (1 of 2 - PCV13)] Future Scheduled 2003-12-10 BREAST CANCER Fredo Dc thodist Test 00:00:00 SCREENING [code = BREAST CANCER SCREENING] Future Scheduled 2003-12-10 COLONOSCOPY SCREENING Francisco J johnson Christian Test 00:00:00 [code = COLONOSCOPY SCREENING] Future Scheduled 2003-12-10 SHINGLES VACCINES (#1) Dean saenz Christian Test 00:00:00 [code = SHINGLES VACCINES (#1)] Encounters Start End Encounter Admission Attending Care Care Encounter Source Date/Time Date/Time Type Type Clinicians Facility Department ID 2019-10-31 2019-10-31 Outpatient Narayan, [facility] [id number] 02:06:00 16:58:00 Yung Robert Florentin 2019-10-31 2019-10-31 Outpatient U [facility] MED [id number] [facility] 02:06:00 02:06:00 2019-10-19 2019-10-19 Outpatient FLORIAN, [facility] [id number] [place] 00:00:00 00:00:00 RAFFI [address] 2019-09-19 2019-09-22 Inpatient [facility] [id number] [place] 00:00:00 00:00:00 RAFFI [address] 2019-09-11 2019-09-11 [facility] [id number] [place] 00:00:00 00:00:00 RAFFI [address] 2019-09-11 2019-09-11 [facility] [id number] [place] 00:00:00 00:00:00 RAFFI [address] 2019-09-06 2019-09-06 [facility] [id number] [place] 00:00:00 00:00:00 RAFFI [address] 2019-09-06 2019-09-06 [facility] [id number] [place] 00:00:00 00:00:00 RAFFI [address] 2019-09-06 2019-09-06 Outpatient FLORIAN, [facility] [id number] [place] 00:00:00 00:00:00 RAFFI [address] 2019-08-14 2019-08-14 [facility] [id number] [place] 00:00:00 00:00:00 RAFFI [address] 2019-08-14 2019-08-14 [facility] [id number] [place] 00:00:00 00:00:00 RAFFI [address] 2019-08-14 2019-08-14 Outpatient FLORIAN, [facility] [id number] [place] 00:00:00 00:00:00 RAFFI 630 [facility] 2019-08-14 2019-08-14 Outpatient FLORIAN, [facility] [id number] [place] 00:00:00 00:00:00 RAFFI 198 [facility] 2019-08-14 2019-08-14 Outpatient FLORIAN, [facility] [id number] [place] 00:00:00 00:00:00 RAFFI 226 [facility] 2019-08-04 2019-08-04 Outpatient Suzanne, M[facility] M[facility]ISCH[facility] [id number] 09:15:00 09:15:00 Felice 10 [facility] 2019-07-28 2019-07-28 [facility] [id number] 17:09:00 23:59:00 Encounter [place] [id number] [place] [id number] [place] [id number] 2019-07-28 2019-07-28 Urgent Pob1, Acute [facility] [id number] 15:30:08 17:04:14 [facility] [id number] [place] [id number] [facility] [id number] [address]al [address] 2019-07-04 2019-07-04 Outpatient MELISSA [facility] [id number] [place] 00:00:00 00:00:00 SILVIO 741 [facility] 2019-05-05 2019-05-05 Outpatient Suzanne, M[facility]ISCHER M[facility]ISCHER [id number] 11:45:00 23:59:59 Felice 09 [facility] 2019-03-22 2019-03-22 Outpatient Suzanne [facility] MHMISCHER [id number] 11:30:00 23:59:59 Felice 08 [facility] 2019-03-15 2019-03-15 Outpatient Suzanne, MHMISCHER MHMISCHER [id number] 11:15:00 23:59:59 Felice 07 [facility] 2018-12-21 2018-12-21 Outpatient Suzanne MHMISCHER MHMISCHER [id number] 11:30:00 23:59:59 Felice 06 Tulio 2018-10-19 2018-10-19 Outpatient Suzanne MHMISCHER MHMISCHER [id number] 11:45:00 23:59:59 Felice 05 Tulio 2018-09-08 2018-09-08 Outpatient JOSELUIS PalaciosMISCHER MHMISCHER [id number] 14:30:00 23:59:59 Felice 04 Tulio 2018-08-18 2018-08-19 Outpatient MHMISCHER MHMISCHER [id number] 10:14:00 23:59:59 00 2017-05-06 2017-05-06 Outpatient Linh, [place] [id number] 12:16:00 22:13:00 Bryan Alfred Results Test Description Test Time Test Comments Results Result Comments Source HEMATOLOGY 2019-10-31 20:36:00 Test Item Value Reference Range Interpretation Comme nts PT (test code = PT) 14.3 s 12.0-14.7 [facility]bq[facility]AYN1365-18-43 20:36:00 Test Item Value Reference Range Interpretation Comments INR (test code = INR) 1.11 1 0.85-1.17 [facility]KjpuzqpNYCXZABZMX0977-37-57 20:36:00 Test Item Value Reference Range Interpretation Comments PTT (test code = PTT) 94.8 s 22.9-35.8 [facility] HospitalCbagqzfQEBPDXIUJP6264-74-49 14:58:00 Test Item Value Reference Range Interpretation Comments PT (test code = PT) 14.4 s 12.0-14.7 [facility]NnnwxycOHKBJVHQMM7900-23-98 14:58:00 Test Item Value Reference Range Interpretation Comments INR (test code = INR) 1.11 1 0.85-1.17 [facility] HospitalBilwdwxMNXMYYMEWL9696-84-02 14:58:00 Test Item Value Reference Range Interpretation Comments PTT (test code = PTT) 86.8 s 22.9-35.8 [facility] CenterIdeabove [facility] RPTRKRA6107-82-06 07:51:00Negative (10/31/19 2:51 AM) [facility] Fluentify JZMTD3614-46-33 07:51:0091Memoriwa QterosannCHEM PANEL 2019-10-31 07:51:0013Memorial QterosannCHEM OODGC4793-72-90 07:51:000.70[facility]orial HermannCHEM JSBEF1014-21-26 07:51:00825Eixjdmqv HermannCHEM RPIXH6253-85-22 07:51:004.0Mem[facility] HermannCHEM NBZVC4311-25-09 07:51:08754Ncafgfsr HermannCHEM CGBZQ0963-71-07 07:51:0024Memorial HermannCHEM SBKKY1156-68-76 07:51:008.5 [facility] HermannCHEM VGPPA3654-71-83 07:51:006.6Mem[facility] HermannCHEM PANEL 2019-10-31 07:51:003.0Memorial HermannCHEM RXHNG2445-79-23 07:51:0016Memorial HermannCHEM MXZUW3738-15-95 07:51:0020Mem[facility] HermannCHEM GFDQD7656-08-75 07:51:58592Jmcfyhwl HermannCHEM KSZFW2852-57-77 07:51:000.4Memorial HermannCHEM GLXKO6441-46-25 07:51:0014.0Mem[facility] HermannCHEM JMRES5960-20-23 07:51:00 Test Item Value Reference Range Interpretation Comments B/C Ratio (test code = B/C Ratio) 19 1 -25 [facility] HermannCHEM ZDUOP4295-16-13 07:51:003.6Memorial HermannCHEM PANEL 2019-10-31 07:51:00 Test Item Value Reference Range Interpretation Comments A/G Ratio (test code = A/G Ratio) 0.8 1 0.7-1.6 Memorial HermannCHEM KSOGE7113-94-89 07:51:0091Mem[facility] HermannHEMATOLOGY 2019-10-31 07:51:008.0Memorial PkvihnfHHGAZWHUMA4179-76-78 07:51:003.97Memorial AivzzeaFBTMHLBCEI6366-83-20 07:51:0012.5Memorial UtwevakEOQLLPUJRU2650-56-20 07:51:0037.6Memorial XqnlcpcGRWRNYHBSR2998-50-06 07:51:0094.8[facility]orial Agus SSAHGGNAOR3987-77-52 07:51:00 Test Item Value Reference Range Interpretation Comments MCH (test code = MCH) 31.4 pg 27.0-31.0 [facility] ZjujipxDQPNADZEXN7504-82-01 07:51:0033.1[facility] HermannHEMATOLOGY 2019-10-31 07:51:0013.0Memorial EyfudyyRTKHVDYZVS5483-66-03 07:51:84508Mpimhpuw QkcuozqKBHUDDNMCQ3758-54-56 07:51:008.8Memorial ZduzglcGBOLIVFWGJ8071-72-08 07:51:00 Test Item Value Reference Range Interpretation Comments PT (test code = PT) 14.2 s 12.0-14.7 Memorial VzxoklfCXOSNAIAKD8915-20-81 07:51:00 Test Item Value Reference Range Interpretation Comments INR (test code = INR) 1.10 1 0.85-1.17 [facility] DjegnrfAIWTMFHWYM6362-34-72 07:51:00 Test Item Value Reference Range Interpretation Comments PTT (test code = PTT) 64.7 s 22.9-35.8 Memorial ZwumxkiKPRNOOKWBN0658-41-78 07:51:0063.4Memorial HermannHEMATOLOGY 2019-10-31 07:51:0026.0Memorial UjvgxfyVDMJJNMQPO9297-67-41 07:51:008.5Memorial QnowijxQNHYFMFBKY4344-11-22 07:51:001.6Memorial IrjenlyMUBNCGDSWQ1378-34-71 07:51:000.5Memorial DkhikknKBORXNKUCJ0387-56-79 07:51:005.1[facility] Agus RTJBUZIOHD2651-27-03 07:51:002.1Memorial QreumfoOCLRJAYLDP7604-32-49 07:51:000.7 Memorial YieuivmPBXTQBNQHS2700-43-27 07:51:000.1Memorial HermannSurgical pathology peujzdn1951-[birth year] 17:07:26 Test Item Value Reference Range Interpretation Comments Case number (test code = [id number]) Surgical pathology See link below for report (test code = PDF Lab Report [id number]) Result status (test code This is Final Report = [id number]) for [id number]2020-05-21 15:18:08 Test Item Value Reference Range Interpretation [...] was found- Fredo Becerra drugs of abuse nylqrh8959-55-22 22:23:33 Test Item Value Reference Interpretation Comments Range Amphetamine screen, Negative urine (test code = 3349-8) Barbiturate screen, Negative urine (test code = 3377-9) Benzodiazepine Negative screen, urine (test code = 3390-2) Cocaine screen, Negative urine (test code = 3397-7) Methadone Negative metabolite (EDDP), urine (test code = 48869-8) Opiates screen, Negative urine (test code = 3879-4) Oxycodone screen, Positive A urine (test code = 85675-3) Phencyclidine Negative screen, urine (test code = 3936-2) Tricyclic screen, Negative urine (test code = 71390-7) Cannabinoid screen, Negative Drug scr een minimum [...] ired. Lab Interpretation Abnormal (test code = 99076-9) [place] MethodistUrinalysis screen and microscopy, with reflex to culture 2019-09-20 20:48:08 Test Item Value Reference Range Interpretation Comments Specimen site (test code = Clean catch 3536418) Color, UA (test code = 5778-6) Straw Appearance, UA (test code = Clear 5767-9) Specific gravity, UA (test code = 1.003 1.001-1.035 5811-5) pH, UA (test code = 5803-2) 7.0 5.0-8.5 Protein, UA (test code = 99102-2) Negative Negative Glucose, UA (test code = 57502-0) Negative Negative Ketones, UA (test code = 2514-8) Negative Negative Bilirubin, UA (test code = Negative Negative 5770-3) Blood, UA (test code = 5794-3) Negative Negative Nitrite, UA (test code = 5802-4) Negative Negative Urobilinogen, UA (test code = <2.0 <2.0 72733-9) Leukocyte esterase, UA (test code Negative Negative = 5799-2) Epithelial cells, UA (test code = 5 /HPF 5787-7) WBC, UA (test code = 5821-4) 1 0- 4 /HPF RBC, UA (test code = 87338-4) 1 0- 5 /HPF Bacteria, UA (test code = Few None seen 96252-8) Yeast, UA (test code = 56897-4) None seen Yeast with pseudohyphae, UA (test None seen code = 76515-8) [place] MethodistUrine vibflbv7314-64-15 20:45:55 Test Item Value Reference Range Interpretation Comments Urine culture (test SEE COMMENT Bacteriu leigh ann screen code = 6887614) negative. [place] MethodistCT Lumbar Spine Wo Rkbsoxwb9538-31-80 19:17:16Hm Interface, Radiology Results 09/20/2019 7:20 PM [...] [facility]-WPHYRRSHouston MethodistCT Cervical Spine Wo Wezdfrjk3690-09-26 19:13:36Hm Interface, Radiology Results 09/20/2019 7:16 PM [...] of the cervical spine.[facility]-HYRRSHouston MethodistAmmonia level 2019-09-20 19:03:26 Test Item Value Reference Range Interpretation Comments Ammonia (test code = 1841-6) 19 umol/L 11-51 [place] MethodistCT Head Wo Svjvgsfq1643-69-46 18:49:46Hm Interface, Radiology Results 09/20/2019 6:52 PM [...] air cells are clear.IMPRESSION:No acute intracranial abnormality identified.[id number] MethodistIonized wwdolrn0400-31-65 18:34:40 Test Item Value Reference Range Interpretation Comments pH (test code = 2753-2) 7.52 Ionized calcium (test code = 1.13 mmol/L 1.11-1.32 ) [place] MvrnzpletUprfjuek5607-17-88 18:28:56 Test Item Value Reference Range Interpretation Comments Troponin (test code 0.013 ng/mL 0-0.04 In patie nts suspected = 50058-2) of having a alpa cardial infarction, ederftio farrell with all other appro priate clinical [...] decreased by le ss than 0.020 ng/mL [place] MethodistBasic metabolic vontl8674-75-75 18:27:26 Test Item Value Reference Range Interpretation Comments Sodium (test code = 2951-2) 145 135- 148 mEq/L Potassium (test code = 2823-3) 3.5 3.5- 5.0 mEq/L Chloride (test code = 2075-0) 105 98- 112 mEq/L CO2 (test code = 2027-) 23 24- 31 mEq/L L Anion gap (test code = 08960-2) 17@ANIO 7- 15 mEq/L H BUN (test code = 3094-0) 9 mg/dL 8-23 Creatinine (test code = 2160-0) 0.76 mg/dL 0.5-0.9 Glucose (test code = 2345-7) 142 mg/dL 65-99 H Calcium (test code = 50079-9) 9.5 mg/dL 8.8-10.2 Lab Interpretation (test code = Abnormal 58982-0) Fredo MethodistMagnesium hwwlj6365-56-37 18:27:26 Test Item Value Reference Range Interpretation Comments Magnesium (test code = 80297-6) 1.8 mg/dL 1.6-2.4 Yoo MethodistEstimated XNE7323-74-29 18:27:25 Test Item Value Reference Range Interpretation Comments Estimated GFR (test 82 mL/min/1.73 m2 [facility] Units code = 5488) InterpretationG 1 >=90 Normal or highG2 60-89 Mildly wuykthresH9h 45-59 Mildly to mode rately rgjfglwnoB1x 30-44 Moderately to severely decreasedG4 15-29 Severely decre asedG5 <15 Kidn ey failureThe eGFR was calculated adam killian the Chronic Kidney Disease Epidemiology Co llaboration (CKD-EPI) equat ion. Interpretation is based on recommendations of the National Kidney Foundation-Kidn ey Disease Outcomes Qualit y Initiative (NKF-KDOQI) pub lished in 2014. Fredo MethodistPhosphorus ovmpu5095-10-16 18:27:24 Test Item Value Reference Range Interpretation Comments Phosphorus (test code = 2777-1) 2.6 mg/dL 2.4-4.5 Yoo MethodistPartial thromboplastin time, omacbklem5831-26-70 18:15:11 Test Item Value Reference Range Interpretation Comments PTT (test code = 24.7 23.0- 36.0 [place] [address]-3) unfractionated heparin is61.0-112.0 se conds which corresponds to Anti-Xa0.3-0.7 U/ml. Yoo MethodistProthrombin time with ZXF6865-00-42 18:13:49 Test Item Value Reference Range Interpretation Comments Prothrombin time (test 13.3 11.5- 14.5 sec code = 5902-2) INR (test code = 1.0 The Interna tional 65603-1) Normalized Rati o (INR) is a therapeutic m onitoring tool for patien ts who are stable on oral anticoagulant t herapy. An INR of 2.0-3.0 is suggested for d eep vein thrombosis/pulm onary embolism. [place] [facility] with platelet and pfmkmndqlkae4420-84-38 18:04:23 Test Item Value Reference Range Interpretation Comments WBC (test code = 11831-9) 13.52 4.50- 11.00 k/uL H RBC (test code = 34834-7) 4.10 m/uL 4.2-5.5 L HGB (test code = 718-7) 12.9 g/dL 12-16 HCT (test code = 4544-3) 39.3 % 37-47 MCV (test code = 787-2) 95.9 fL 82-100 MCH (test code = 785-6) 31.5 pg 27-34 MCHC (test code = 786-4) 32.8 g/dL 31-37 RDW - SD (test code = 42.5 fL 37-55 64179-2) MPV (test code = 80882-5) 10.4 fL 8.8-13.2 Platelet count (test code 229 150- 400 k/uL = 33011-8) Nucleated RBC (test code 0.00 /100 WBC = 16001-9) Neutrophils (test code = 78.5 % 39-69 H 43567-3) Lymphocytes (test code = 11.5 % 25-45 L 94725-1) Monocytes (test code = 9.4 % 0-10 88906-8) Eosinophils (test code = 0.0 % 0-5 36690-5) Basophils (test code = 0.2 % 0-1 35873-4) Immature granulocytes 0.4 % 0-1 "Immat ure (test code = 16802-8) granul ocytes" (promyelocytes, myelocytes, metamyelocytes) Lab Interpretation (test Abnormal code = 65761-2) [facility] tgepdlf9087-32-93 16:26:11 Test Item Value Reference Range Interpretation Comments POC glucose (test code = 133 mg/dL 65-99 H Ope rator Name: [place] 07938-5) HeidiDevice ID: [id number] able: [facility] 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 chef & owner Interpretation (test Abnormal code = 59470-7) Fredo VxjcpcbrfSotfcj7514-55-06 15:59:28Douglas Gilmore MD 09/19/2019 4:00 PMAirwayPerformed by: Douglas Gilmore MDAuthorized by: Douglas Gilmore MD Duplicate noteH[facility]hillcrest hospital UeadblybwPnjhgt2461-73-41 15:51:07 Douglas Gilmore MD 09/19/2019 3:59 PMAirwayDate/Time: [...] of Attempts at Approach: 2 Fredo MethodistArterial wlgl1471-54-19 15:50:10Douglas Gilmore MD 09/19/2019 3:51 PMArterial linePerformed [...] no immediate complicationsHouston MethodistXR Lumbar Spine 1 Tk3192-58-08 15:48:20 Hm Interface, Radiology Results 09/19/2019 3:51 PM CDTEXAMINATION: XR LUMBAR SPINE 1 VWCLINICAL HISTORY: Z98.890 Other specified postprocedural statesCOMPARISON: Lumbar radiograph 08/14/2019IMPRESSION:Single lateral intraoperative radiograph of the lumbar spine in bone and soft tissue filters demonstrates a posterior approach surgical instrument tip directed towards the L4-L5 level with tip projecting along the inferior aspect of the L4 spinous process.[id number] MethodistCOVID BioRef (NCOVB)2019-09-13 13:20:03 Test Item Value Reference Range Interpretation Comments COVID BioRef Not Detected Not Detected Source Nasophar yngeal (NCOVB) SwabTesting per formed at (test code = Bioreference [address] [address]-6) [place] [address] NOTE: Ple ase consider re-collection o f a new specimen, if cl inically indicated. NOTE : The COVID-19 assay has been cleared by the U.S. Food and DrugAdministrat ion under the Emergency Use A uthorization (EUA). [facility]mal[facility] hospitalies is designated as a high complexity labo [...] under the Emergency Use A uthorization (EUA). [facility] is designated as a high complexi ty laboratory by the Clinical Laboratory Improvement Nina ndments of 1987(CLIA) and is qualified to perform this te st. ASSAY INFORMATION: Re al Time RT-PCR (Reported 09/12 12:29) Yoo MethodistComprehensive metabolic jfayw2721-44-83 13:47:39 Test Item Value Reference Range Interpretation Comments Sodium (test code = 142 135- 148 mEq/L 2951-2) Potassium (test code = 4.0 3.5- 5.0 mEq/L 2823-3) Chloride (test code = 100 98- 112 mEq/L 2075-0) CO2 (test code = 2027-9) 26 24- 31 mEq/L Anion gap (test code = 16@ANIO 7- 15 mEq/L H 24872-7) BUN (test code = 3094-0) 26 mg/dL 8-23 H Creatinine (test code = 0.90 mg/dL 0.5-0.9 2160-0) Glucose (test code = 111 mg/dL 65-99 H 2345-7) Calcium (test code = 10.5 mg/dL 8.8-10.2 H 99530-2) Protein (test code = 7.6 g/dL 6.3-8.3 -[place] n 2885-2) 4.6-7.0 g/dL1 week 4.4-7 .6 g/dL7 months-1y ear 5.1-7 .3 g/dL1-2 years 5.6-7 .5 g/dL>3 years 6.0-8 .0 g/sY42-220 6.3-8 .3 g/dL Albumin (test code = 4.0 g/dL 3.5-5 1751-7) A/G ratio (test code = 1.1 0.7-3.8 1759-0) Alkaline phosphatase 82 U/L 35-104 (test code = 6768-6) AST (test code = 1920-8) 20 U/L 10-35 ALT (test code = 1742-6) 17 U/L 5-50 Total bilirubin (test 0.3 mg/dL 0-1.2 code = 1974-) Lab Interpretation (test Abnormal code = 88610-3) [place] MethodistIR Myelogram 2+Reg Incl Inj W S&A9916-92-97 14:46:39Hm Interface, Radiology Results Incoming 09/08/2019 2:49 PM CDTEXAMINATION: IR MYELOGRAM 2 [...] abnormalities.Mild blunting of the left C6 root sleeve.[facility]-[id number] MethodistCT Post Myelogram Tuwlwzza2375-64-87 12:41:37Hm Interface, Radiology Results 09/06/2019 12:44 PM [...] correlation for right C6 radiculopathy is recommended. [facility]-[id number] MethodistCT Post Myelogram Lobbcf1469-12-59 12:39:59Addendum by Ally Leong MD on 09/06/2019 [...] impingement on the right L3 nerve root. [facility]-[id number] [facility] Spine External Ibuhw9544-85-17 12:29:05This exam was not acquired at a Christian facility and has not been interpreted by a Christian Provider. The exam was imported into our imaging system.[facility] CenterXR Lumbar Spine Complete W Flex and Kkw7231-41-73 11:34:25Hm Interface, Radiology Results 08/14/2019 11:37 AM [...] the right upper quadrant.IMPRESSION:Degenerative changes without acute abnormality.[facility]-[id number] and approved by radiology re sident/fellow: Aaron Garcia, Marilyn Charles MD, personally reviewed the images and resident's/fellow's findings and agree with the final report.[place] MethodistXR Spine Scoliosos 2-3 Hftvs6686-04-30 11:11:25Hm Interface, Radiology Results 08/14/2019 11:14 AM [...] anterior plate and screw fixation and interbody graft.HMTW-[id number] MethodistCOPY(IES) SENT TO:2019-06-07 05:40:00Copies/mLComment: TEVIN CARRASCO CARDIO [address] [facility] [address] [place] [address] [facility] MethodistCOPY RECEIVED FROM:2019-06-07 05:40:00Copy received from:Comment: TEVIN CARRASCO [address] [place] [address] [facility] CenterWqnapmnzgPDNYWMJEJO9190-15-72 18:52:002 [facility] HospitalLxdcaosWVGXNADSON4167-26-45 18:52:74780.20[facility] HermannHEMATOLOGY 2019-03-15 18:52:0062.60Memorial TaiqmicHZHXBOIQZU7207-48-08 18:52:009Memorial CqvjrezKKYDKHJDNN6829-34-43 18:52:00 Test Item Value Reference Range Interpretation Comments Varicella IgM (test code = Varicella 0.69 1 IgM) [facility]annURINE AND FAZRQ6395-96-87 21:21:00Negative (05/06/17 3:21 PM) [facility] AND TXEVW3133-55-13 21:21:00Negative (05/06/17 3:21 PM) [facility] AND QMFXB6188-73-42 21:21:00Negative *NA*(05/06/17 3:21 PM) [facility] AND FTOTJ7431-85-99 21:21:00Negative (05/06/17 3:21 PM) [facility] AND UJCEJ1042-13-67 21:21:001[facility] HermannURINE AND FYEXK4162-87-21 21:21:002[facility]annURINE AND WNTOT2368-98-29 21:21:00 Yellow *NA*(05/06/17 3:21 PM)[facility]annURINE AND RJXWT4588-99-42 21:21:00 1.019[facility] CWRDS6252-72-99 21:21:005.0[facility] IRQNY1700-84-04 21:21:00Slight *ABN*(05/06/17 3:21 PM)[facility]annCHEM OZNTH7280-42-19 20:57:15726Truogawp HermannCHEM KWPKG9896-48-68 20:57:0042 [facility] PgxuheiXLROYRUFJNSX0584-25-34 20:57:50401Lvupwsuv HermannELECTROLYTES 2017-05-06 20:57:82059Nvxduhoj BtylkfaACDQGWVNXLTF9335-42-69 20:57:004.0[facility] ZeiutxvJXXJAGHGSNPR2205-79-66 20:57:0041[facility] IjqkgngFHGLXHCCGBDR8542-56-74 20:57:000.7[facility] DlrsxshARHNIQRDMEDJ5423-17-42 20:57:0082[facility] THRYRUFWWTKS3966-61-59 20:57:001.0[facility] SxbpyngMFUCNXTJCHQJ8154-12-74 20:57:0019[facility] VvpdjirHUNWRDWHLQYB8075-01-07 20:57:0015[facility] XLFZTVXBXYSJ7342-48-46 20:57:004.1[facility] BqyuumvBBAZUXWQTGDZ3161-24-17 20:57:004.3[facility] OniucrjLVFMDOPJEWJF5653-35-08 20:57:0018[facility] BXHCGVMJUNOH4522-65-81 20:57:009.4[facility] BrwpicpKXSZFFIBANDU0158-42-83 20:57:008.4[facility] TuzxzwyGOJHPOLMIJUF7803-78-73 20:57:0027[facility] TLAFTIOPSMQX0859-53-83 20:57:0016.0[facility] ApbvxzcEODEACWNESPA9579-11-23 20:57:001.36[facility] ArmjdrlSNTIMCDGWXSP0550-62-28 20:57:0024[facility] KEZGADYQAFTZ0504-29-85 20:57:0077[facility] WltxngaKPTXDPAMNS0925-49-06 20:57:00 2.3[facility] BijqvryYUXLDWESPR0205-08-60 20:57:000.8[facility]annHEMATOLOGY 2017-05-06 20:57:000.2[facility] PneobuiQTNSVHZDAF0139-18-82 20:57:000.4[facility] UqgcozaULESUVIIUM3877-77-08 20:57:006.4[facility] WnzwpbeDSIKYNEKWK4295-77-15 20:57:0024.4[facility] DfyiyerGUQETTJXEH4731-91-41 20:57:008.1[facility] JIUXYHOHXO9185-86-03 20:57:0066.9[facility] BvxdamoSJIUOZTBNX4311-15-15 20:57:00 8.4[facility] OxpuqxoJHNFPGNYIH3087-98-70 20:57:42400Vegfsmus HermannHEMATOLOGY 2017-05-06 20:57:00 Test Item Value Reference Range Interpretation Comments MCH (test code = MCH) 32.4 pg 27.0-31.0 [facility] WyiiolgOGTEQEWSON7419-00-30 20:57:0012.5[facility] HermannHEMATOLOGY 2017-05-06 20:57:0091.5[facility] YwkhjmjDAEQJWMUYD0194-11-81 20:57:0035.4[facility] MifsidcJQJAYTICUJ9125-98-08 20:57:0042.5[facility] LhtxnowKMBEEWHREI5736-21-28 20:57:009.6[facility] DtpzstqPRVZFJSZAT0572-41-11 20:57:0015.1[facility] CKLTYHDKSL6629-08-26 20:57:004.65[facility] PwursukXPQNVXJAZ4225-07-28 05:00:0095 [facility] MwfxaqvSVECXDTLI2973-53-06 05:00:0012.9[facility] HermannCHEMISTRY 2013-01-23 05:00:008.5[facility] EsnhfugUBPUMQAPF2740-39-23 05:00:0075[facility] HdleheyTXUPAHIIS5232-69-25 05:00:0028[facility] VfrudqkGIMOQKUWM8495-67-75 05:00:20002Psxeyajw XgkqnmhVXPRGGVCP2582-38-01 05:00:003.9[facility] LQKYORBXO8263-65-57 05:00:005[facility] TldgaocYNPAXKYVV3538-63-41 05:00:000.7 [facility] JsnmsfvRBDVFVDYP5863-57-90 05:00:82284Afuvnpxr HermannHEMATOLOGY 2013-01-23 05:00:008.4[facility] KqlrecjZLVDHTSXNX8237-38-28 05:00:003.95[facility] KybptorPCTWZQVNVJ4099-70-87 05:00:005.7[facility] YztblfdBGVRTSHZDX9110-01-00 05:00:00 Test Item Value Reference Range Interpretation Comments MCH (test code = MCH) 33.0 pg 27.0-31.0 H [facility] OrfdoyePRDGRLNICI5710-20-89 05:00:0037.4[facility] HermannHEMATOLOGY 2013-01-23 05:00:0013.0[facility] HvrvffnHGIQQWBCFH3947-54-93 05:00:0094.8[facility] ImwrhauVZHDYLRHEZ1554-79-65 05:00:0012.6[facility] BtxgfeyNQTLJJUOXN2944-29-81 05:00:0034.8[facility] YpvzzblJLBHJJKRMK1605-93-38 05:00:95925Rkcfdnid [place] ZIGDGFMHLQ9509-70-64 05:00:0050.9[facility] GmubhvlJHQIEGHSSU4793-36-53 05:00:00 36.5[facility] WtvwjlzHXPQLOCBUJ2374-60-47 05:00:0010.0[facility] HermannHEMATOLOGY 2013-01-23 05:00:000.6[facility] CpscalkEPGNQHJCHU6802-56-91 05:00:000.1[facility] OipzsunSXRCAZEWVV6155-17-71 05:00:002.9[facility] HokkyxcCJEKDXHVZY1961-60-58 05:00:002.1[facility] FatmwavGGFALQBYGM9343-02-06 05:00:002.2[facility] IICDQZFHIO9287-51-53 05:00:000.4[facility] YfezxnyBBEBLOANB9473-49-27 08:45:21059 [facility] LzvteqiPQOUUEYCT0520-94-86 08:45:003.1[facility] HermannCHEMISTRY 2013-01-22 08:45:001.0[facility] NczeuvnVHQUDQYPU4570-38-69 08:45:004[facility] RmcxvukAEZYXIZZR8027-11-56 08:45:0011.9[facility] HfauyihXNIKYUBQK7742-69-47 08:45:0095[facility] MvgnnpnIDOGEGFVR7082-52-98 08:45:0016[facility] LADBXZXVB8937-58-97 08:45:0026[facility] ElyzgwuAHUCKWXOF8326-84-46 08:45:008.0 [facility] WbljztnBJVTUHMKV0785-16-67 08:45:006.1[facility] HermannCHEMISTRY 2013-01-22 08:45:000.5[facility] QuemmgrVEGVLUQPQ9483-81-65 08:45:000.7[facility] BkjbvfuSVDPMEVXI6248-44-31 08:45:55980Ujmxofas MjdzpusDOLVFEXED0434-48-82 08:45:55847Rygqhiyn LbnphqxOVYBHPKWD7346-66-09 08:45:003.9[facility] MIGFPYIFE4506-51-87 08:45:0020[facility] VbgxhgxJSVPGDBTX0945-07-70 08:45:003 [facility] LvnsjrzHWGYWMLDR7126-66-63 08:45:12215Gouzzucd HermannCHEMISTRY 2013-01-22 08:45:0074[facility] GjrnewiGRKPVOCPV5391-98-52 08:45:003.0[facility] QtsnspmRBBHRIESTH5648-58-78 08:45:000.1[facility] PntkosmNNRVLAYBIG8249-14-14 08:45:000.3[facility] DpslwjfAFHAAHFVUF5065-01-88 08:45:002.8[facility] HKTOZTUFYV7184-98-81 08:45:002.0[facility] WhmyukrAODOXJAETX7243-32-50 08:45:000.6 [facility] RdvcvowLHQLQQAWIL9130-09-65 08:45:0035.5[facility] HermannHEMATOLOGY 2013-01-22 08:45:0011.0[facility] KnaudsvGUDREVGBKC0767-27-73 08:45:002.1[facility] IgaiazgLMJMAWCZFI2823-15-60 08:45:0051.1[facility] MbcdalcSVEWNETUOV0284-15-99 08:45:0015[facility] HgplzvjZYMRSMZWDB8915-27-72 08:45:0034.6[facility] GWGFVETJVA3205-45-48 08:45:00 Test Item Value Reference Range Interpretation Comments MCH (test code = MCH) 32.8 pg 27.0-31.0 H [facility] YjiozfoZQSQLJMTQL4030-76-26 08:45:0012.3[facility] HermannHEMATOLOGY 2013-01-22 08:45:008.2[facility] QholjxhXMXXTQPDOH0757-56-54 08:45:76540Ythcxgjy DfhhaeeLEDWZZCCPN1699-51-66 08:45:003.63[facility] KdxbtriIKHQMSNQBX7338-15-84 08:45:005.5[facility] FvgmgoqNCHOPLVIRQ2192-28-15 08:45:0011.9[facility] JBJQFRJWHC8031-82-83 08:45:0034.5[facility] BpqpqyxULKYXWXJBE0321-94-30 08:45:00 94.9[facility] HermannTUMOR CZEEBJS0299-23-06 08:45:007.0[facility] HermannCHEMISTRY 2013-01-21 16:51:550.9[facility] LavzpigOSDGGOROZ0106-76-26 16:51:0095[facility] TdgpaodIQLREVUOR0248-27-15 16:51:004.1[facility] InxymnaGBIEOREIH8666-06-22 16:51:63880Usuvtquk NtqdhqbYAIEUNREU6358-30-39 16:51:31719Trqzkpku [facility] LNWRRGIJP0568-45-29 16:51:42702Lsfpvbbp EojmxblBGJGQRCXO7397-69-88 16:51:007 [facility] DdykddcHWPINLOFX4580-36-96 16:51:0025[facility] HermannCHEMISTRY 2013-01-21 16:51:008.2[facility] UcnzauuFYMVMJGRF9072-74-04 16:51:000.7[facility] XqbwbzjCDPXIBFCG9799-89-57 16:51:0012.1[facility] HrwdmoaDJOTZGLMB4291-55-87 16:51:001.38[facility] BdpmjxfZUPNZZNYE5829-90-28 07:55:001.8[facility] CMFITRNUK7205-10-48 07:55:67323Lczgatwd YvcoycjOETYBWKNZ7050-43-57 07:55:0066 [facility] XyqymunXOSEGQTJS4106-79-52 07:55:0018[facility] HermannCHEMISTRY 2013-01-21 07:55:002.9[facility] DwzdszbEWCGPKUJL4755-28-01 07:55:0024[facility] DscflvwQOTYPGNWS1974-48-91 07:55:000.7[facility] OtmxdrqFMZYULHTS9167-45-28 07:55:005.7[facility] ZhsxigfHTJPKUXGS1947-31-58 07:55:0022[facility] QQZSERQAP3015-32-91 07:55:001.0[facility] AbnqgpiQLAQBQXKV3878-84-86 07:55:002.8 [facility] QjqwelvBGZUILZQHK3796-07-52 07:55:008.6[facility] HermannHEMATOLOGY 2013-01-21 07:55:0023.8[facility] OozeahjVFGDKENDNX9603-54-17 07:55:000.6[facility] LcdhvzvIUNFIGWHEX2353-85-21 07:55:0066.4[facility] XcrcmdjSFFSGNVDVJ0265-11-77 07:55:000.8[facility] QweyuddFXMYNNWDNY9909-44-61 07:55:002.1[facility] OTORJQQVNQ1105-44-80 07:55:000.6[facility] FkdgyfqPUZREEBFHI0549-57-65 07:55:005.9 [facility] NcwmnbhPTELFHUEUY2389-65-10 07:55:000.1[facility] HermannHEMATOLOGY 2013-01-21 07:55:000.1[facility] EeqyitmAAQGVYDSKG4289-03-12 07:55:0012.7[facility] ArpcuxqBGLFXVSMGP5153-37-82 07:55:0034.1[facility] SyxgegqLWYYAPXSJE3913-00-02 07:55:0095.7[facility] MviuegtGPMWPNFCHS0194-73-82 07:55:0011.5[facility] SQULHJKUBV3204-72-91 07:55:0033.6[facility] HrrcryeLHCYZDXLOJ9700-80-69 07:55:00 Test Item Value Reference Range Interpretation Comments MCH (test code = MCH) 32.6 pg 27.0-31.0 H [facility] OihayfvZWAFLCMKCF9003-16-69 07:55:008.5[facility] HermannHEMATOLOGY 2013-01-21 07:55:90503Issyjlku BdnglpzPMJCGFRTIQ6443-10-63 07:55:003.52[facility] ScptibxMIRAQDXPNU5050-27-50 07:55:008.9[facility] AhbjdivHOYPKXAXSR0573-41-17 04:30:05Performed (01/19/2013 23:30:05)[facility] TnvikziPGMRVFEXWA8108-11-38 04:30:05None Seen (01/19/2013 23:30:05)[facility] CpjmecxRRILXZCSMP8163-58-14 04:30:05Few /LPF (01/19/2013 23:30:05)[facility] ZokihcwEGVXVFBWIE2606-14-76 04:30:05None Seen (01/19/2013 23:30:05)[facility] QpvqmkiZNQTQDMCGM2661-64-45 04:30:05Negative (01/19/2013 23:30:05)[facility] PulxnllUCTECKRVSU0295-59-85 04:30:050.2[facility] WellfctHLMDIMYASD5574-39-85 04:30:05Negative *NA*(01/19/2013 23:30:05)[facility] AkkqmoiAYLCKHDUCQ2429-52-09 04:30:05Negative (01/19/2013 23:30:05)[facility] BjznsisRLEWNRETZO8772-67-39 04:30:05Negative (01/19/2013 23:30:05)[facility] HqnrhjdPDDXFPNRGV8239-21-95 04:30:05Negative mg/dL (01/19/2013 23:30:05)[facility] LquhsjtESCMRIVTJU9194-89-91 04:30:05Negative mg/dL *NA*(01/19/2013 23:30:05)[facility] IpoaophHXVLKXOAAC7076-17-23 04:30:05 Test Item Value Reference Range Interpretation Comments UA pH (test code = UA pH) 8.0 1 5.0-8.0 N [facility] CshfsmzUDRNMPSDQH3491-14-75 04:30:05Negative mg/dL (01/19/2013 23:30:05)[facility] WsbezmrOFXIEUHTDM5845-21-55 04:30:05Clear (01/19/2013 23:30:05)[facility] MexmfqjVMMISRYDEH8066-57-30 04:30:05 Test Item Value Reference Range Interpretation Comments UA Spec Grav (test code = UA Spec 1.015 1 N Grav) [facility] CenterNkrieisGNNSSHABTS8394-64-63 04:30:05Yellow *NA*(01/19/2013 23:30:05) [facility] DawkhgbOUPIPWJEA3861-83-63 03:30:50496Wnynhqos HermannCHEMISTRY 2013-01-20 03:30:007.3[facility] GogaideNGGKVJIVJ0869-94-59 03:30:000.5[facility] ArewefpGISFCNGQX2595-04-06 03:30:003.8[facility] AhnsiljDHZQFMWDF8551-59-22 03:30:0030[facility] CesziesAOWBBCYAT7916-19-22 03:30:0081[facility] ZPDFZBNLF7130-39-80 03:30:000.1[facility] TmutuaaEIYVSMZNZ8058-76-73 03:30:0023 [facility] GopztvuLEZOHRHSI9460-80-18 03:30:003.5[facility] HermannCHEMISTRY 2013-01-20 03:30:001.1[facility] CsuszkdQPYMSTMBG3928-51-21 03:30:000.4[facility] LkwtxdqVMJLTFMXQY3004-26-60 03:30:000.1[facility]
[2020-01-07] MEDS ORDERED: METOCLOPRAMIDE 10 MG/2mL INJ ONE (13:14)
[2020-01-07] MEDS ORDERED: DIPHENHYDRAMINE 50 MG/ML VIAL ONE (13:15)
[2020-01-07] MEDS ORDERED: KETOROLAC 30 MG/ML INJ ONE ×2 (13:15→14:51)
[2020-01-07] MEDS ORDERED: NA CHLORIDE 0.9% 1,000 ML ONE (13:15)
--- NOTE | 2020-01-07 13:28 | RAD REPORT ---
EXAM DESCRIPTION: CT - Head C Spine Mpr Wo Con - 01/07/2020 1:09 pm CLINICAL HISTORY: Head and neck injury status post fall. Head and neck pain. Headaches COMPARISON: 2012 TECHNIQUE: Computed axial tomography of the head and cervical spine was obtained. Sagittal and coronal reconstruction was performed. All CT scans are performed using dose optimization technique as appropriate and may include automated exposure control or mA/KV adjustment according to patient size. FINDINGS: An intracranial bleed is not seen. Mild to moderate low-density areas within periventricul ar, deep subcortical white matter probably ischemic changes secondary to small vessel disease. The ventricles are normal in caliber. An extra-axial fluid collection is not noted.Fluid within the v isualized sinuses and mastoids is not seen A cervical fracture is not visualized. No dislocation is noted. Anterior fusion C6 and C7. IMPRESSION: No acute intracranial abnormality is seen. A cervical fracture is not visualized. If the patient continues to have symptoms to suggest intracra nial /spinal cord pathology then MRI would be recommended
[2020-01-07 13:35] LABS: Absolute Lymphocytes (CBC) 1.8 K/uL (0.7-4.9); Basophils % 1.3 % (0-1.3); Hematocrit 39.3 % (36.0-45.0); Lymphocytes % 26.4 % (15.3-44.8); MPV 8.2 fL (7.6-11.3); RBC Red Blood Cell Count 4.36 M/uL (3.86-4.86)
[2020-01-07 13:38] LABS: Protime INR 1.16
[2020-01-07 13:56] LABS: ALT/SGPT 29 U/L (12-78); AST/SGOT 18 U/L (15-37); Albumin 3.8 g/dL (3.4-5.0); Alkaline Phosphatase 109 U/L (45-117); BUN Blood Urea Nitrogen 19 mg/dL (7-18); Bicarbonate 27 mmol/L (21-32); Bilirubin Direct < 0.1 mg/dL (0-0.2); Bilirubin Total 0.4 mg/dL (0.2-1.0); CKMB Creatine Kinase MB < 1.0 ng/mL (0.3-3.6); Creatine Phosphokinase 35 U/L (26-192); Glucose Level 93 mg/dL (74-106); Lipase 123 U/L (73-393); Magnesium 2.6 mg/dL (1.8-2.4); Potassium 3.9 mmol/L (3.5-5.1); Protein, Total 7.8 g/dL (6.4-8.2); Sodium Level 142 mmol/L (136-145); Troponin (Emerg Dept Use Only) < 0.02 ng/mL (0.0-0.045)
--- NOTE | 2020-01-07 14:41 | ER ---
Nurse's Notes [facility] Name: Haley Porter Age: 64 yrs Sex: Female : 1955 Arrival Date: 01/07/2020 Time: 12:16 Bed 16 Private MD: Rob Alonzo Diagnosis: Headache Presentation: 01/06 12:38 Chief complaint: Patient states: Headache to top of head "for a long time". Pt states aa5 "It just keeps getting worse and I can't take it anymore". Pt denies fever, denies nausea, denies vomiting. Pt states "they keep telling me that is a side effect from the Eliquis that I am taking for a blood clot in my lung and I keep telling myself I only have one more week on the Eliquis". Pt also reports frequent falls, multiple greenish bruising noted to left arm and farhad legs. No neuro deficits noted in triage. 12:38 Coronavirus screen: Client denies travel out of the [place] in the last 14 days. At this aa5 time, the client does not indicate any symptoms associated with coronavirus-19. Ebola Screen: Patient negative for fever greater than or equal to 101.5 degrees Fahrenheit, and additional compatible Ebola Virus Disease symptoms. Initial Sepsis Screen: Does the patient meet any 2 criteria? No. Patient's initial sepsis screen is negative. Does the patient have a suspected source of infection? No. Patient's initial sepsis screen is negative. Risk Assessment: Do you want to hurt yourself or someone else? Patient reports no desire to harm self or others. Onset of symptoms was 2019. 12:38 Acuity: RADHA 3 aa5 12:38 Method Of Arrival: Ambulatory aa5 Triage Assessment: 12:40 Headache History: The patient has had previous headaches and this one is similar to bp previous episodes, and this one is more severe than previous episodes. General: Appears distressed, uncomfortable, obese, Behavior is cooperative, appropriate for age, anxious, crying. Pain: Complains of pain in head Pain currently is 10 out of 10 on a pain scale. Pain began 2-3 days ago. Also complains of photophobia. EENT: No deficits noted. Neuro: Reports headache. Cardiovascular: No deficits noted. Respiratory: No deficits noted. GI: No signs and/or symptoms were reported involving the gastrointestinal system. : No signs and/or symptoms were reported regarding the genitourinary system. Derm: No deficits noted. Musculoskeletal: No deficits noted. Historical: - Allergies: 12:40 Morphine; aa5 12:40 Oral steroids; aa5 12:40 Valium; aa5 12:40 Versed; aa5 - PMHx: 12:40 Anxiety; Hypertension; Pancreatitis; pulmonary emboli; TMJ; aa5 - Immunization history:: Adult Immunizations up to date. - Social history:: Smoking status: Patient denies any tobacco usage or history of. - Family history:: not pertinent. Screenin:40 Abuse screen: Denies threats or abuse. Denies injuries from another. Nutritional bp screening: No deficits noted. Tuberculosis screening: No symptoms or risk factors identified. Fall Risk None identified. Assessment: 12:40 General: SEE TRIAGE NOTE. bp 13:37 Reassessment: PT RETURNED FROM CT. IVF INFUSING. VS STABLE. bp 14:23 Reassessment: ALL CURRENT ORDERS COMPLETED, VS STABLE ON MONITOR. bp 14:53 Reassessment: D/C ON HOLD FOR DILAUDID REQUESTED BY PT. bp 15:40 Reassessment: PT D/C HOME AMBULATORY, DX WITH HEADACHE. bp Vital Signs: 12:38 BP 151 / 81; Pulse 89; Resp 20 S; Temp 98.6(O); Pulse Ox 97% on R/A; aa5 13:40 BP 133 / 70; Pulse 72; Resp 16; Pulse Ox 98% ; bp 14:23 BP 130 / 74; Pulse 78; Resp 16; Pulse Ox 100% ; bp 15:42 BP 135 / 71; Pulse 72; Resp 16; Temp 98.6; Pulse Ox 100% ; bp ED Course: 12:16 Patient arrived in ED. ag5 12:16 Rob Alonzo MD is Private Physician. ag5 12:38 Arm band placed on. aa5 12:40 Patient has correct armband on for positive identification. Bed in low position. Call bp light in reach. Side rails up X2. 12:42 Trey Peñaloza, TRAV is Primary Nurse. bp 12:49 Triage completed. aa5 12:49 Suzy Goss MD is Attending Physician. ma2 13:09 CT Head C Spine In Process Unspecified. EDMS 13:09 CT completed. Patient tolerated procedure well. Patient moved back from CT. bq 13:10 Inserted saline lock: 20 gauge in left forearm, using aseptic technique. Blood bp collected. 15:42 No provider procedures requiring assistance completed. IV discontinued, intact, bp bleeding controlled, No redness/swelling at site. Pressure dressing applied. Administered Medications: 13:10 Drug: NS 0.9% 1000 ml Route: IV; Rate: 1 bolus; Site: left forearm; bp 13:10 Drug: Reglan 20 mg Route: IVP; Site: left forearm; bp 15:40 Follow up: Response: No adverse reaction bp 13:10 Drug: Benadryl 50 mg Route: IVP; Site: left forearm; bp 14:22 Follow up: Response: Marked relief of symptoms bp 13:10 Drug: TORadol 30 mg Route: IVP; Site: left forearm; bp 14:22 Follow up: Response: No adverse reaction; Marked relief of symptoms bp 14:22 Follow up: Response: Marked relief of symptoms bp 14:30 Drug: TORadol 30 mg Route: IVP; Site: left forearm; bp 14:52 Follow up: Response: No adverse reaction bp 14:59 Drug: HYDROmorphone 1 mg Route: IVP; Site: left forearm; bp 15:40 Follow up: Response: No adverse reaction; Pain is decreased bp Outcome: 14:40 Discharge ordered by MD. diggs 15:41 Discharged to home ambulatory. bp 15:41 Condition: stable 15:41 Discharge instructions given to patient, Instructed on discharge instructions, follow up and referral plans. medication usage, Demonstrated understanding of instructions, follow-up care, medications. 15:43 Patient left the ED. bp Signatures: Dispatcher [employer] EDMS Ignacia Gutierres bq Sierra Carballo RN RN aa5 Trey Peñaloza RN RN bp Suzy Goss MD MD ma2 Virgen Patel ag5 Corrections: (The following items were deleted from the chart) 12:52 12:38 Chief complaint: Patient states: Headache to top of head "for a long time". Pt aa5 states "It just keeps getting worse and I can't take it anymore". Pt denies fever, denies nausea, denies vomiting. Pt states "they keep telling me that is a side effect from the Eliquis that I am taking for a blood clot in my lung and I keep telling myself I only have one more week on the Eliquis". Pt also reports frequent falls, multiple greenish bruising noted to left arm and farhad legs. aa5 13:05 13:03 To radiology for Head Brain Wo Cont+CT.RAD.BRZ. bp EDMS
--- NOTE | 2020-01-07 14:41 | EDPHYS ---
Physician Documentation [facility] Name: Haley Porter Age: 64 yrs Sex: Female : 1955 Arrival Date: 01/07/2020 Time: 12:16 Bed 16 Private MD: Rob Alonzo ED Physician Suzy Goss HPI: 01/06 14:39 This 64 yrs old Female presents to ER via Ambulatory with complaints of ma2 Headache, Worst Ever. 14:39 The patient complains of pain to the forehead. Onset: The symptoms/episode ma2 began/occurred gradually, 2 day(s) ago. Associated signs and symptoms: Pertinent negatives: dizziness, nausea, neck stiffness. Severity of symptoms: At its worst the pain was mild, moderate, in the emergency department the pain is unchanged. Headache History: The patient has had previous headaches and this one is similar to previous episodes. The patient has experienced similar episodes in the past. Historical: - Allergies: 12:40 Morphine; aa5 12:40 Oral steroids; aa5 12:40 Valium; aa5 12:40 Versed; aa5 - PMHx: 12:40 Anxiety; Hypertension; Pancreatitis; pulmonary emboli; TMJ; aa5 - Immunization history:: Adult Immunizations up to date. - Social history:: Smoking status: Patient denies any tobacco usage or history of. - Family history:: not pertinent. ROS: 14:39 Constitutional: Negative for fever, chills, and weight loss. ma2 14:39 All other systems are negative. Exam: 14:39 Constitutional: This is a well developed, well nourished patient who is awake, alert, ma2 and in no acute distress. Head/Face: Normocephalic, atraumatic. Eyes: Pupils equal round and reactive to light, extra-ocular motions intact. Lids and lashes normal. Conjunctiva and sclera are non-icteric and not injected. Cornea within normal limits. Periorbital areas with no swelling, redness, or edema. ENT: Nares patent. No nasal discharge, no septal abnormalities noted. Tympanic membranes are normal and external auditory canals are clear. Oropharynx with no redness, swelling, or masses, exudates, or evidence of obstruction, uvula midline. Mucous membranes moist. Neck: Trachea midline, no thyromegaly or masses palpated, and no cervical lymphadenopathy. Supple, full range of motion without nuchal rigidity, or vertebral point tenderness. No Meningismus. Chest/axilla: Normal chest wall appearance and motion. Nontender with no deformity. No lesions are appreciated. Cardiovascular: Regular rate and rhythm with a normal S1 and S2. No gallops, murmurs, or rubs. Normal PMI, no JVD. No pulse deficits. Respiratory: Lungs have equal breath sounds bilaterally, clear to auscultation and percussion. No rales, rhonchi or wheezes noted. No increased work of breathing, no retractions or nasal flaring. Abdomen/GI: Soft, non-tender, with normal bowel sounds. No distension or tympany. No guarding or rebound. No evidence of tenderness throughout. Back: No spinal tenderness. No costovertebral tenderness. Full range of motion. Skin: Warm, dry with normal turgor. Normal color with no rashes, no lesions, and no evidence of cellulitis. MS/ Extremity: Pulses equal, no cyanosis. Neurovascular intact. Full, normal range of motion. Neuro: Awake and alert, GCS 15, oriented to person, place, time, and situation. Cranial nerves II-XII grossly intact. Motor strength 5/5 in all extremities. Sensory grossly intact. Cerebellar exam normal. Normal gait. Vital Signs: 12:38 BP 151 / 81; Pulse 89; Resp 20 S; Temp 98.6(O); Pulse Ox 97% on R/A; aa5 13:40 BP 133 / 70; Pulse 72; Resp 16; Pulse Ox 98% ; bp 14:23 BP 130 / 74; Pulse 78; Resp 16; Pulse Ox 100% ; bp 15:42 BP 135 / 71; Pulse 72; Resp 16; Temp 98.6; Pulse Ox 100% ; bp MDM: 12:49 Patient medically screened. ma2 14:39 Differential diagnosis: herpes zoster, otitis, sinusitis, uremia. Data reviewed: vital ma2 signs, nurses notes. Counseling: I had a detailed discussion with the patient and/or guardian regarding: the historical points, exam findings, and any diagnostic results supporting the discharge/admit diagnosis, the presence of at least one elevated blood pressure reading (>120/80) during this emergency department visit, the need for outpatient follow up. Response to treatment: the patient's symptoms have resolved after treatment. 01/06 12:59 Order name: Basic Metabolic Panel; Complete Time: 14:37 ma2 01/06 12:59 Order name: CBC with Diff; Complete Time: 14:03 ma2 01/06 12:59 Order name: Ckmb; Complete Time: 14:37 ma2 01/06 12:59 Order name: CPK; Complete Time: 14:37 ma2 01/06 12:59 Order name: Hepatic Function; Complete Time: 14:37 ma2 01/06 12:59 Order name: Lipase; Complete Time: 14:37 ma2 01/06 12:59 Order name: CT Head C Spine; Complete Time: 13:29 ma2 01/06 12:59 Order name: Magnesium; Complete Time: 14:37 ma2 01/06 12:59 Order name: Protime (+inr); Complete Time: 14:03 ma2 01/06 12:59 Order name: Ptt, Activated; Complete Time: 14:03 ma2 01/06 12:59 Order name: Troponin (emerg Dept Use Only); Complete Time: 14:37 ma2 01/06 12:59 Order name: EKG; Complete Time: 13:00 ma2 01/06 12:59 Order name: Cardiac monitoring; Complete Time: 13:33 ma2 01/06 12:59 Order name: EKG - Nurse/Tech; Complete Time: 13:33 ma2 01/06 12:59 Order name: IV Saline Lock; Complete Time: 13:33 ma2 01/06 12:59 Order name: Labs collected and sent; Complete Time: 13:33 ma2 01/06 12:59 Order name: NPO; Complete Time: 13:33 ma2 01/06 12:59 Order name: O2 Per Protocol; Complete Time: 13:33 ma2 01/06 12:59 Order name: O2 Sat Monitoring; Complete Time: 13:33 ma2 Administered Medications: 13:10 Drug: NS 0.9% 1000 ml Route: IV; Rate: 1 bolus; Site: left forearm; bp 13:10 Drug: Reglan 20 mg Route: IVP; Site: left forearm; bp 15:40 Follow up: Response: No adverse reaction bp 13:10 Drug: Benadryl 50 mg Route: IVP; Site: left forearm; bp 14:22 Follow up: Response: Marked relief of symptoms bp 13:10 Drug: TORadol 30 mg Route: IVP; Site: left forearm; bp 14:22 Follow up: Response: No adverse reaction; Marked relief of symptoms bp 14:22 Follow up: Response: Marked relief of symptoms bp 14:30 Drug: TORadol 30 mg Route: IVP; Site: left forearm; bp 14:52 Follow up: Response: No adverse reaction bp 14:59 Drug: HYDROmorphone 1 mg Route: IVP; Site: left forearm; bp 15:40 Follow up: Response: No adverse reaction; Pain is decreased bp Disposition: 01/07/20 14:40 Discharged to Home. Impression: Headache. - Condition is Stable. - Discharge Instructions: General Headache Without Cause. - Prescriptions for Reglan 10 mg Oral Tablet - take 1 tablet by ORAL route every 6 hours . take 30 minutes before meals and at bedtime; 100 tablet. - Medication Reconciliation Form, Thank You Letter, Antibiotic Education, Prescription Opioid Use form. - Follow up: Private Physician; When: Tomorrow; Reason: Continuance of care. Signatures: Dispatcher [employer] [facility] Sierra Carballo RN RN aa5 Trey Peñaloza RN RN bp Suzy Goss MD MD ma2 Corrections: (The following items were deleted from the chart) 13:05 12:17 Head Brain Wo Cont+CT.RAD.BRZ ordered. [facility] 15:43 14:40 01/07/2020 14:40 Discharged to Home. Impression: Headache. Condition is Stable. bp Prescriptions for Reglan 10 mg Oral Tablet - take 1 tablet by ORAL route every 6 hours . take 30 minutes before meals and at bedtime; 100 tablet. and Forms are Medication Reconciliation Form, Thank You Letter, Antibiotic Education, Prescription Opioid Use. Follow up: Private Physician; When: Tomorrow; Reason: Continuance of care. ma2
[2020-01-07] MEDS ORDERED: HYDROMORPHONE HCL 1 MG/ML INJ ONE (15:07)
[2020-01-08 15:03] VITALS: TEMP 98.6
[2020-01-08 15:05] VITALS: O2SAT 100
[2020-01-08 15:07] VITALS: BP 135/71
--- NOTE | 2020-01-09 20:04 | EKG ---
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
== END 2020-01-07 15:43 | disposition home or self-care (01) ==
LOC: ER 12:14
DX: R51 Headache (principal); I10 Essential (primary) hypertension; Z86.711 Personal history of pulmonary embolism; Z88.5 Allergy status to narcotic agent; Z88.8 Allergy status to other drugs, medicaments and biological substances
CPT/HCPCS: 93005; 85025; 80048; 36415; 83735; 82550; 85610; 80076; 85730; 84484; 82553; 83690; 70450; 72125; 96375; 96374; 99284; J2765; J1200; J1170; J7030

== ENCOUNTER 2020-03-11 08:39 | Emergency (ER) | payer OTHER ==
--- OUTSIDE RECORDS SUMMARY | 2020-03-11 09:04 | XMS REPORT | Clinical Summary ---
:1955 Author Organization [facility] Address [address] [place] [address] Care Team Providers Name Role Phone Nayla Alonzo MD Primary Care Provider Allergies Not on File Medications Not on file Active Problems Not on file Encounters Date Type Specialty Care Team Description 10/30/2019 Telephone Critical Care Medicine Jan Fountain MD 10/30/2019 Hospital Encounter after 03/11/2019 Social History Tobacco Use Types Packs/Day Years Used Date Never Assessed Sex Assigned at Date Recorded Not on file Last Filed Vital Signs Not on file Plan of Treatment Not on file Results Not on fileafter 03/11/2019 Insurance Payer Benefit Plan / Subscriber ID Effective Dates Phone Addre ss Type Group [employer] - MGD CIG[employer] [id number] 2012-Present HMO/POS CARE HMO/POS/OPEN ACCESS [phone] (Work)
--- OUTSIDE RECORDS SUMMARY | 2020-03-11 09:04 | XMS REPORT | Clinical Summary ---
:1955 Author Organization [employer] Address [address] [place] [address] Care Team Providers Name Role Phone Nayla [...] Bedtime, # 180 tab, 3 Refill(s), Pharmacy: [facility]/pharmacy #[id number] buprenorphine (BELBUCA) 150 0 10/20/19 Discontinued 150 [...] 09/11/2019 Travel 09/08/2019 Telephone Radiology Torrie Cobb CHIEF TECHNICIAN X RAY 09/06/2019 Hospital Encounter Radiology Triston Noel Thoracic [...] Lumbar stenosis with neurogenic claudication (Primary Dx); SHIP BOAT OR BARGE MATE Radiculopathy o f thoracic region 08/22/2019 Orders Only Neurosurgery Wanda Cotter, Thoracic radicu lopathy (Primary Dx); SHIP [employer]AT [employer] BARGE MATE Spinal stenosis of lumbar region, unspecified whether [...] 08/07/2019 Travel 08/02/2019 Abstract Neurosurgery Wanda Cotter, SHIP BOAT OR BARGE MATE 07/27/2019 Travel 07/04/2019 Office Visit Cardiology Ibis Torres Essential hyper tension (Primary Dx); MD Danitza Claudication (H CC) 07/04/2019 Orders Only Triston Brown Lumbar radiculo tr MD Chel (Primary Dx) 06/06/2019 Lab Lab Ibis Torres PAD (peripheral R., MD artery disease) (HCC) 06/06/2019 Office Visit Cardiology Ibis Torres PAD (peripheral artery disease) (HCC) (Primary Dx); MD Danitza Bilateral carot id artery stenosis after 03/11/2019 Surgical History Surgery Date Site/Laterality Comments HYSTERECTOMY BLADDER REPAIR APPENDECTOMY TMJ DISLOCATION CLOSED MANIPULATION CHOLECYSTECTOMY COLONOSCOPY UPPER GASTROINTESTINAL ENDOSCOPY ERCP US UPPER GI TRACT, ENDOSCOPIC 01/31/2016 N/A Pr ocedure: PANCREATIC EUS; Surgeon: Steve merrill MD; Location: [facility] ENDOSCOPY; Serv ice: Gastroenterology ; Laterality: N/A; HERNIA REPAIR ENDOSCOPIC ULTRASOUND (UPPER) HEMORRHOID SURGERY CERVICAL DISC SURGERY SPINE SURGERY ABDOMINAL SURGERY BACK SURGERY Neck LAMINECTOMY, LUMBAR 09/19/2019 Back/Posterior Procedure: L UMBAR LAMINECTOMY FOR DECOMRESSION, PO SSIBLE DISCECTOMY, BILA TERAL L3-S1; Surgeon: Triston Noel MD; Loc ation: [facility]; Servic e: Neurosurgery; L aterality: Posterior; Medical devices from this surgery are in t he Implants section. Medical History Medical History Date Comments Complication of anesthesia Colon polyp Gall stone Hemorrhoids Hypertension Pancreatitis GERD (gastroesophageal reflux disease) Dyspepsia Family history of colon cancer Splenic artery aneurysm (HCC) Anesthesia no chest pain or sob , no routine exercise ca n not climb 2 flights of stairs npap/nfhap TMJ dysfunction Survey on both jaws Depression ((Pt Qnr Sub: no dep ression has anxiety takes tranx karl)) ((Pt Qnr Sub: no depressi on has anxiety takes tranxe ze)) Neck pain Plate in neck Upper back pain T8 Lower back pain L3-4,l4-5,l5-s1 Vision loss Glasses Decreased ROM of neck Plate in neck can move neck some decrease range of motion Family History Medical History Relation Name Comments Cancer Father Alona Liver cancer Father Alona Kwong Liver disease Father Alona Kwong Lung cancer Father Alona Heart disease Maternal Grandfather Hypertension Maternal Grandfather Heart disease Maternal Grandmother Hypertension Maternal Grandmother Cancer Mother Herminia Colon cancer Mother Herminia Ovarian cancer Mother Herminia Stomach cancer Mother Herminia Kwong Relation Name Status Comments Father Aolna Maternal Grandfather Maternal Grandmother Mother Herminia Social [...] (#1) 12/10/2003 65+ PNEUMOCOCCAL VACCINE (1 of 1 - PPSV23) 2018 INFLUENZA VACCINE 12/02/2019 Implants Implanted Type Area [place]ta Roofer Device Shelf Model / Identifier Expiration Serial / Date Lot System Spine Selnt For Dural Selng Exact 5ml Duraseal - [id number] Cardiovascular N/A: [employer] [id number] / Implanted: Qty: 1 on 09/19/2019 by Triston Noel MD at [facility] Implants N/A [employer] / NEURO [id number] Procedures Procedure Name Priority Date/Time Associated Diagnosis [...] procedure are i n the results section. WY AN ELECTIVE Routine 09/19/2019 3:51 Results f [...] neurogenic claudication Case Notes EXTENDED RECOVERY NEEDED, CO CROSCOPE, KARISHMA FRAME Special Needs EXTENDED RECOVERY NEEDED, CO CROSCOPE, KARISHMA FRAME SURGICAL PATHOLOGY Routine 09/19/2019 [...] (peripheral Res ults for this BILATERAL AM FISHING HAND artery disease) (HCC) proced ure are in the results section. CT ANGIOGRAM Routine 06/06/2019 5:02 PAD (peripheral Results for this ABDOMINAL AORTA AND PM FISHING HAND artery disease) (HCC) procedure are in BILATERAL ILIOFEMORAL the re sults RUNOFF W WO CONTRAST section . ESTIMATED GFR Routine 06/06/2019 3:21 Results fo r this PM [facility] HAND procedure are i n the results section. POC CREATININE Routine 06/06/2019 3:21 Results f or this PM [facility] procedure are i n the results section. COPY RECEIVED FROM: Routine 06/06/2019 11:02 Resu lts for this AM FISHING HAND procedure are i n the results section. COPY(IES) SENT TO: Routine 06/06/2019 11:02 Resul ts for this AM [facility] HAND procedure are i n the results section. BASIC METABOLIC PANEL Routine 06/06/2019 11:02 PAD (peripheral Results for this AM FISHING HAND artery disease) (HCC) proced ure are in the results section. ECG 12-LEAD Routine 06/06/2019 9:55 Bilateral carotid Result s for this AM FISHING HAND artery stenosis procedure ar e in the results section. after 03/11/2019 Results Urine culture (09/20/2019 7:30 PM CDT) Pathologist Sig nature Urine culture SEE COMMENTComment: [facility] Bacteriuria screen [facility] negative. Specimen Performing Organization Address [facility] Code Phon e Number [facility] DEPARTMENT OF PATHOLOGY AND [address], [place] [address] [address] [facility] [address] [place] [address] CT Cervical Spine Wo Contrast (09/20/2019 6:46 [...] acute fractures of the cervical spine . [id number] Procedure Note Hm Interface, Radiology Results Incoming - 09/20/2019 7:16 [...] acute fractures of the cervical spine . [id number] Performing Organization Address City/State/ZIP Code Phon e Number [facility] [address] [place] [address] CT Head Wo Contrast (09/20/2019 6:45 PM CDT) Specimen Narrative Performed At EXAMINATION: CT HEAD WO CONTRAST [facility] CLINICAL HISTORY: Altered level of consc [...] IMPRESSION: No acute intracranial abnormality identi fied. [id number] Procedure Note Hm Interface, Radiology Results Incoming - 09/20/2019 6:52 [...] IMPRESSION: No acute intracranial abnormality identi fied. [id number] Performing Organization Address City/State/ZIP Code Phon e Number [facility] [address] [place] [address] CT Lumbar Spine Wo Contrast (09/20/2019 6:43 PM CDT) Specimen Narrative Performed At EXAMINATION: CT LUMBAR SPINE WO CONTRA ST [facility] CLINICAL HISTORY: postop mechanical fa [...] spondylotic foraminal narrowing a t L5-S1 bilaterally. [facility] Performing Organization Address City/State/ZIP Code Phon e Number [facility] [address] [place] [address] CBC with platelet and differential (09/20/2019 5:36 PM CDT)Only the most recent of2 resultswithin the time period is included. WBC 13.52 (H) 4.50 - 11.00 [facility] k/uL [facility] RBC 4.10 (L) 4.20 - 5.50 [facility] HGB 12.9 12.0 - 16.0 [facility] g/dL [facility] HCT 39.3 37.0 - 47.0 % [facility] MCV 95.9 82.0 - 100.0 [facility] MCH 31.5 27.0 - 34.[address] [facility] MCHC 32.8 31.0 - 37.0 [facility] gdL [facility] RDW - SD 42.5 37.0 - 55.[address] [facility] MPV 10.4 8.8 - 13.[address] [facility] Platelet count 229 150 - 400 k/uL [facility] Nucleated RBC 0.00 /[address] [facility] Neutrophils 78.5 (H) 39.0 - 69.0 % [facility] Lymphocytes 11.5 (L) 25.0 - 45.0 % [facility] Monocytes 9.4 0.0 - 10.0 % [facility] Eosinophils 0.0 0.0 - 5.0 % [facility] Basophils 0.2 0.0 - 1.0 % [facility] Immature granulocytes 0.4Comment: 0.0 - 1.0 % [facility] "Immature HOSPITAL granulocytes" (promyelocytes , myelocytes, metamyelocytes ) Specimen Blood Performing Organization Address [facility] Phon e Number [facility] DEPARTMENT OF PATHOLOGY AND [address] [place] [address] [phone] [address] Ammonia level (09/20/2019 5:36 PM CDT) Pathologist Sig nature Ammonia 19 11 - 51 umol/L [facility] Specimen Blood Performing Organization Address [facility] Phon e Number [facility] DEPARTMENT OF PATHOLOGY AND [address] [place] [address] [phone] [address] Urinalysis screen and microscopy, with reflex to culture (09/20/2019 5:30 PM CDT) Specimen site Clean catch [facility] Color, UA Straw [facility] Appearance, UA Clear [facility] Specific gravity, UA 1.003 1.001 - 1.[address] [facility] pH, UA 7.0 5.0 - 8.[address] [facility] Protein, UA Negative Negative [facility] Glucose, UA Negative Negative [facility] Ketones, UA Negative Negative [facility] Bilirubin, UA Negative Negative [facility] Blood, UA Negative Negative [facility] Nitrite, UA Negative Negative [facility] Urobilinogen, UA <2.0 <2.[address] [facility] Leukocyte esterase, Negative Negative [facility] Epithelial cells, UA 5 /HPF [facility] WBC, UA 1 0 - 4 /HPF [facility] RBC, UA 1 0 - 5 /HPF [facility] Bacteria, UA Few None seen [facility] Yeast, UA None seen [facility] Yeast with None seen [facility] pseudohyphae, UA HOSPITAL Specimen Urine Performing Organization Address [facility]/State/[facility] Phon e Number [facility] DEPARTMENT OF PATHOLOGY AND [address] [place] [address] [phone] [address] Urine drugs of abuse screen (09/20/2019 5:30 PM CDT) Amphetamine screen, Negative [place] urine [facility] Barbiturate screen, Negative [place] urine [facility] Benzodiazepine Negative [place] screen, urine [facility] Cocaine screen, urine Negative [facility] Methadone metabolite Negative [place] (EDDP), urine [facility] Opiates screen, urine Negative [facility] Oxycodone screen, Positive (A) [place] urine [facility] Phencyclidine screen, Negative [place] urine [facility] Tricyclic screen, Negative [place] urine [facility] Cannabinoid screen, Negative [place] urine Comment: JAIN Drug screen minimum concentration [...] requir ed. Specimen Urine Performing Organization Address City/[facility] Phon e Number [facility] DEPARTMENT OF PATHOLOGY AND [address] [place] [address] [phone] [address] Estimated GFR (09/20/2019 5:20 PM CDT)Only the most recent of3 resultswithin the time period is included. Pathologist [facility] Estimated GFR 82 mL/min/1.73 [facility] Comment: m2 HOSPITAL Catergory Units Interpretation G1 [...] published in 2014. Specimen Performing Organization Address City/State/[facility] Phon e Number [facility] DEPARTMENT OF PATHOLOGY AND [address], [place] [address] [facility] [address] [place] [address] Troponin (09/20/2019 5:20 PM CDT) Pathologist [facility] Troponin 0.013 0.000 - 0.040 [facility] Comment: ng/mL HOSPITAL In patients suspected of [...] Organization Address City/[facility] Phon e Number [facility] DEPARTMENT OF PATHOLOGY AND [address], [place] [address] [facility] [address] [place] [address] Partial thromboplastin time, activated (09/20/2019 5:20 PM CDT) Pathologist [facility] PTT 24.7 23.0 - 36.0 [facility] Comment: [facility] HOSPITAL PTT therapeutic range for unfractionated heparin is 61.0-112.0 seconds which corresponds to Anti-Xa 0.3-0.7 U/ml. Specimen Blood Performing Organization Address City/[facility]/ZIP Code Phon e Number [facility] DEPARTMENT OF PATHOLOGY AND [address] [place] [address] [phone] [address] Prothrombin time with INR (09/20/2019 5:20 PM CDT) Prothrombin time 13.3 11.5 - 14.5 [facility] INR 1.0 [place] Comment: [facility] International Normalized Ratio (INR) is a [facility] monitoring tool for patients who are stable on oral anticoagulant therapy. An INR of 2.0-3.0 is suggested for deep vein thrombosis/pulmonary embolism. Specimen Blood Performing Organization Address City/[facility]/ZIP [facility] Phon e Number [facility] DEPARTMENT OF PATHOLOGY AND [address] [place] [address] [phone] [address] Phosphorus level (09/20/2019 5:20 PM CDT) Pathologist Sig nature Phosphorus 2.6 2.4 - 4.5 mg/dL [facility] Specimen Blood Performing Organization Address City/[facility]/ZIP [facility] Phon e Number [facility] DEPARTMENT OF PATHOLOGY AND [address] [place] [address] [phone] [address] Magnesium level (09/20/2019 5:20 PM CDT) Pathologist Sig nature Magnesium 1.8 1.6 - 2.4 mg/dL [facility] Specimen Blood Performing Organization Address City/[facility]/ZIP [facility] Phon e Number [facility] DEPARTMENT OF PATHOLOGY AND [address] [place] [address] [phone] [address] Ionized calcium (09/20/2019 5:20 PM CDT) Pathologist Sig nature pH 7.[address] [facility] Ionized calcium 1.13 1.11 - 1.32 mmol/L [facility] Specimen Blood Performing Organization Address City/[facility]/ZIP Code Phon e Number [facility] DEPARTMENT OF PATHOLOGY AND [address] [place] [address] [phone] [address] Basic metabolic panel (09/20/2019 5:20 PM CDT)Only the most recent of2 results within the time period is included. Pathologist Sig nature Sodium 145 135 - 148 mEq/L [facility] Potassium 3.5 3.5 - 5.0 mEq/L [facility] Chloride 105 98 - 112 mEq/L [facility] CO2 23 (L) 24 - 31 mEq/L [facility] Anion gap 17@ANIO (H) 7 - 15 mEq/L [facility] BUN 9 8 - 23 mg/dL [facility] Creatinine 0.76 0.50 - 0.90 mg/dL [facility] Glucose 142 (H) 65 - 99 mg/dL [facility] Calcium 9.5 8.8 - 10.2 mg/dL [facility] Specimen Blood Performing Organization Address [facility] Phon e Number [facility] DEPARTMENT OF PATHOLOGY AND [address], [place] [address] GENOM[address] [address] ECG 12 lead (09/20/2019 4:27 PM CDT)Only the most recent of2 resultswithin the time period is included. Pathologist Sig nature Ventricular rate 88 [facility] Atrial rate 88 [facility] WY interval 164 [facility] QRSD interval 90 [...] is no t available. Performing Organization Address City/[facility] Phon e Number [facility] MUSE [address] [place] [address] POC glucose (09/20/2019 4:25 PM CDT) Pathologist Sig nature POC glucose 133 (H) 65 - 99 mg/dL [facility] Comment: HOSPITAL Embosser Operator Name: Zion Crump Device ID: [id number] Chartable: [facility] Notified RN Specimen Blood Performing Organization Address City/[facility] Phon e Number [facility] DEPARTMENT OF PATHOLOGY AND [address], [place] [address] [address] [facility] [address] [place] [phone] Airway (09/19/2019 3:59 PM CDT) Narrative Performed [...] aspect of the L4 spin ous process. [id number] Procedure Note Hm Interface, Radiology Results Incoming [...] inferior aspect of the L4 spinous process. [id number] Performing Organization Address City/[facility]/ZIP Code Phon e Number [facility] [address] [place] [address] Surgical pathology request (09/19/2019 8:26 AM CDT) [facility] DEPARTMENT OF PATHOLOGY AND GENOMIC MEDICINE Surgical pathology See link below [facility] DEPARTMENT OF report for PDF Lab PATHOLOGY AND Report GENOMIC MEDICINE Result status This is Final [facility] DEPARTMENT OF Report for PATHOLOGY AND [id number] GENOMIC MEDICINE Specimen Performing Organization Address City/[facility]/ZIP Code Phon e Number [facility] DEPARTMENT OF PATHOLOGY AND [address], [place] [address] GENOMIC MEDICINE COVID BioRef (NCOVB) (09/11/2019 12:19 PM CDT) Pathologist [facility] BioRe Not Detected Not Detected [facility] (NCOVB) Comment: Source Nasopharyngeal [place] [address] NOTE: Please consider re-collection of a new specimen, if clinically indicated. NOTE: The COVID-19 assay has been cleared by the U.S. Food and Drug Administration under the Emergency Use Authorization ( EUA). [facility] [employer] is designated as a high complexity labora [...] under the Emergency Use Authorization ( EUA). [facility] is designated as a high complexity labora tory by the Clinical Laboratory Improvement Amendments of 1988(CLIA) and is qualified to perform this test. ASSAY INFORMATION: Real Time RT-PCR (Reported 2019 12:29) Specimen Nasopharyngeal Performing Organization Address City/State/ZIP Code Phon e Number [facility] DEPARTMENT OF PATHOLOGY [address] [place] [address] [address] [place] [address] [address] Comprehensive metabolic panel (09/11/2019 12:11 PM CDT) [facility] Sodium 142 135 - 148 [facility] mEq/L [facility] Potassium 4.0 3.5 - 5.0 [facility] mEq/L HOSPITAL Chloride 100 98 - 112 [facility] mEq/L HOSPITAL CO2 26 24 - 31 mEq/L [facility] Anion gap 16@ANIO (H) 7 - 15 mEq/L [facility] BUN 26 (H) 8 - 23 mg/dL [facility] Creatinine 0.90 0.50 - 0.90 [facility] mg/dL HOSPITAL Glucose 111 (H) 65 - 99 mg/dL [facility] Calcium 10.5 (H) 8.8 - 10.2 [facility] mg/dL HOSPITAL Protein 7.6 6.3 - 8.3 [facility] Comment: g/dL HOSPITAL - 4.6-7.0 g/dL 1 week 4.4-7.6 g/dL 7 months-1year 5.1-7.3 g/dL 1-2 years 5.6-7.5 g/dL >3 years 6.0-8.0 g/dL 18-150 6.3-8.3 g/dL Albumin 4.0 3.5 - 5.0 [facility] g/dL HOSPITAL A/G ratio 1.1 0.7 - 3.[address] [facility] Alkaline phosphatase 82 35 - 104 U/L [facility] AST 20 10 - 35 U/L [facility] ALT 17 5 - 50 U/L [facility] Total bilirubin 0.3 0.0 - 1.2 [facility] mg/dL HOSPITAL Specimen Blood Performing Organization Address City/State/ZIP Code Phon e Number [facility] DEPARTMENT OF PATHOLOGY AND [address], [place] [address] [address] [facility] [address] [place] [address] CT Post Myelogram Thoracic (09/06/2019 12:33 PM [...] appropriate moderation of exposure. Automated dose management intern nology is applied to adjust radiation exposure [...] correlation for right C6 radiculopathy is recommended. [facility]-[id number] Procedure Note Hm Interface, Radiology Results Incoming - 09/06/2019 12:44 PM CDT EXAMINATION: CT [...] correlation for right C6 radiculopathy is recommended. [facility]-[id number] Performing Organization Address City/State/ZIP Code Phon e Number [facility] [address] [place] [address] CT Post Myelogram Lumbar (09/06/2019 12:32 PM CDT) Specimen Addenda Addendum by Ally Leong MD on 2019 5:14 PM ADDENDUM #1 Correction of typographical error Foraminal protrusion at L3-4 on the left with impingement on the left L3 nerve root Narrative Performed At EXAMINATION: CT POST MYELOGRAM LUMBAR [facility] CLINICAL HISTORY: M48.061 Spinal stenosis lumbar r egion without neurogenic claudication, lumbar stenosis COMPARISON: None. TECHNIQUE: Axial helical CT images throughout the LUMBAR spine were performed after intrathecal contrast. Sagittal and coronal ref ormatted images were generated. CT scans are performed using radiation dose reduction techniques. Technical factors are evaluated and adjusted to ensure appropriate moderation of exposure. Automated dose management intern nology is applied to adjust radiation exposure [...] ingement on the right L3 nerve root. [facility]-[id number] Procedure Note [facility], Radiology Results Incoming - 09/06/2019 12:43 PM CDT EXAMINATION: CT [...] impingement on the right L3 nerve root. [facility]-[id number] Performing Organization Address City/State/ZIP Code Phon e Number [facility] [address] [place] [address] IR Myelogram 2+Reg Incl Inj W S&I [...] of the left C6 root sleeve . [id number] Procedure Note Hm Interface, Radiology Results Incoming - 09/08/2019 2:49 [...] of the left C6 root sleeve . [id number] Performing Organization Address City/State/ZIP Code Phon e Number [facility] [address] [place] [address] XR Lumbar Spine Complete W Flex and Ext (08/14/2019 11:06 AM CDT) Specimen Narrative Performed At EXAMINATION: XR LUMBAR SPINE COMPLETE W FLEX & EXTEND [facility] CLINICAL HISTORY: M54.16 Radiculopathy lumbar region, radiculopathy COMPARISON: CTA abdominal aorta 06/06/19. FINDINGS:: 6 views of the lumbar spine [...] IMPRESSION: Degenerative changes without acute abnor mality. [facility]-[id number] Dictated and approved by radiology resid ent/fellow: Cari Thomson M.D. I, Marilyn Charles MD, personally reviewed the images and resident's/fellow's findings and agree with the final report. Procedure Note Interface, Radiology Results Incoming - 08/14/2019 11:37 AM [...] IMPRESSION: Degenerative changes without acute abnor mality. [facility]-[id number] Dictated and approved by radiology resid ent/fellow: Cari Thomson M.D. I, Marilyn Charles MD, personally review ed the images and resident's/fellow's findings and agree with the final report. Performing Organization Address City/State/ZIP Code Phon e Number [facility] [address] [place] [address] XR Spine Scoliosos 2-3 Views (08/14/2019 11:06 [...] and s crew fixation and interbody graft. [facility]-[id number] Procedure Note Interface, Radiology Results Incoming - [...] plate and screw fixation and interbody graft. [facility]-[id number] Performing Organization Address City/State/ZIP Code Phon e Number [facility] [address] carotid duplex (06/13/2019 10:00 AM FISHING HAND) Specimen Narrative Performed At [facility] Carotid Tonya ry Ultrasound Report Pat.Name: REGINA PORTERKevin Bain Pat.ID: [id number] .Date: 06/13/2019 Refer.MD: IBIS TORRES MD Exam Time: 9:13:00 AM Study Type:C arotid Age: 8 1955,63Y Sex: FEMALE Sonogrphr: Cyn Montoya RVT Pat. Stat.:Outp atient Room: [facility] ol: [place], CPT - 4: 59622 Echo Shira nt ID:[id number] Order ID: [id number] Reason for Study:Carotid artery disease, Hx of [...] Radiology Results In - 2019 6:01 AM FISHING HAND [facility] Carotid Artery Ultras ound Report Pat.Name: HALEY PORTER Pat.I D: [id number] St.Date: 06/13/2019 Refer .MD: IBIS TORRES MD Exam Time: 9:13:00 AM Study Type:Carotid Age: 8 1955,63Y Sex: FEMALE Sonogrphr: Cyn Montoya RVT Pat. Stat.:Outpatient Room: [facility] Vol: [place], [facility] - 4: [address]4635 Echo Event ID:[id number] Order ID: [id number] Reason for Study:Carotid artery disease, Hx of [...] AM Ibis Torres MD Performing Organization Address City/State/ZIP Code Phon e Number [facility] [address] [place] [address] CTA Abdominal Aorta And Bilateral Iliofemoral Runoff W Wo Contrast (06/06/2019 5:02 PM FISHING HAND) Specimen Narrative Performed At EXAMINATION: CT ANGIOGRAM [...] runoff of the bilate ral lower extremities. [id number] Procedure Note Interface, Radiology Results Incoming - 06/06/2019 5:24 PM FISHING HAND EXAMINATION: CT ANGIOGRAM ABDOMINAL AORTA AND BILATERAL [...] runoff of the bilate ral lower extremities. [facility]-[id number] Performing Organization Address City/State/ZIP Code Phon e Number [facility] [address] [place] [address] POC creatinine (06/06/2019 3:21 PM FISHING HAND) POC creatinine 0.8 0.5 - 0.9 [facility] Comment: mg/dl HOSPITAL Meter ID: [id number] Embosser Operator ID: Bayron Valencia Specimen Blood - Antecubital, left Performing Organization Address City/State/ZIP Code Phon e Number [facility] DEPARTMENT OF PATHOLOGY AND [address] [place], [place] [address] [address] [facility] [address] [place] [address] COPY RECEIVED FROM: (06/06/2019 11:02 AM FISHING HAND) Pathologist Sig nature Copy received from: [facility] Comment: [address] [facility] [address] [place] [address] Specimen Performing Organization Address City/State/ZIP Code Phon e Number [facility] COPY(IES) SENT TO: (06/06/2019 11:02 AM FISHING HAND) Pathologist Sig nature Copies/mL [facility] Comment: [facility] [address] [facility] [address] [place] [address] Specimen Performing Organization Address City/[facility]/ZIP Code Phon e Number [facility] after 03/11/2019 Insurance Payer Benefit Plan / Subscriber ID Effective Phone Address T ype Group Dates MEDICARE MEDICARE PART A [id number] 2018-[facility] [place], [place] Medicare AND B ent COMMERCIAL MISC MISC COMMERCIAL [id number] 2009-[facility] Commercial ent Guarantor Name Account Type Relation to Date of Phone Billing Patient Address Haley Porter Personal/Family Self 1955 [address] [place] (Home) [place], [place] [phone] (Work) Advance Directives For more information, please contact: [phone] Type Date Recorded 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
--- OUTSIDE RECORDS SUMMARY | 2020-03-11 09:07 | XMS REPORT | Continuity of Care Document ---
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 [address] [place] [address] Unspecified 05/09/2017 abdominal pain 018 Radha and ABDOMINAL PAIN/LOSS Active [facility] 018 Agus SURGERY THIS Active [facility] MORNING, PROBLEMS 013 Dc dical BREATHING Center POST FOLLOW UP Active [address] BDDC-WEIGHT LOSS Active [address] 783.21 - ABNORMAL Active OPID LOSS O 576.0 - 013 Radha and POSTCHO ABD PAIN Active [address] Acid reflux Resolved Problem 01/25/2013 [facility] HTN - Hypertension Resolved Problem 01/25/2013 [facility] Gastroesophageal Resolved Problem 11/02/2019 Md elizabeth reflux disease Neuro , (disorder) [facility] Cervical Active Problem 11/02/2019 [facility] spondylosis Neuro, (disorder) [facility] 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 Fabian Barrera [place] Ulcer of lower Active Problem 11/02/2019 [facility] her extremity Neuro, (disorder) [facility] ABDMNAL PAIN UNSPCF Active [facility] Medications Medication Details Route Status Patient Ordering Order Source Instructions Provider Date remove patch Notes: Remove No Longer [place] patch 12 hours Active 2019 Medical after Center application each day. edwina, [facility] Notes: (Same Inactive [place] as: [place]) [address] [place] [address] Center tramadol Notes: Not to Inactive [place] hydrochloride exceed 2020 Medical 50 MG Oral 400mg/day. Center Tablet (Same As: Ultram) Lidocaine 1 patch, TOP, Active [place] Hydrochloride Daily, Remove 2020 Medi ion 0.05 MG/MG after 12 hours, Cente r Transdermal # 30 patch, 0 Patch Refill(s), [Lidoderm[id number] 167.64, cm, 10/31/19 2:23:00 CDT, Height, 79.091, kg, 10/31/19 2:23:00 CDT, Weight {74 (apixaban 5 5 mg = 1 tab, Active [place] MG Oral Tablet PO, BID, # 60 2019 Med ical [Eliquis]) } tab, 0 Center Pack [Eliquis Refill(s), 30-Day Starter Pharmacy: Pack] [facility]/pharmacy #[id number], 167.64, cm, 10/31/19 2:23:00 CDT, [...] MG Oral Tablet POLYETHYLENE Notes: Dissolve Inactive [facility] GLYCOL 3350 in 8 oz of [address] [place] [address] water or juice. Center (Same as: Miralax) Aspirin 81 MG Notes: Do not Inactive [facility] Enteric Coated crush or chew. [facility] Me dical Tablet (Same As: Center Ecotrin) Prilosec 20 mg, Route: Inactive [place] PO, Daily, [facility] Medical Dosing Weight Center 83.636, kg, Start date: 10/31/19 9:00:00 CDT, Duration: 30 day, Stop date: 11/29/19 9:00:00 CDT pregabalin Notes: (Same Inactive [place] as: Lyrica) [address] [place] [address] quinapril 20 mg, 1 tab, Inactive [place] Route: PO, Drug [facility] Medical form: TAB, Center Daily, Dosing Weight 83.636, kg, Start date: 10/31/19 9:00:00 CDT, Duration: 30 day, Stop date: 11/29/19 9:00:00 CDT Protonix Notes: Tablet Inactive [facility] should not be [address] [place] [address] chewed or [place] crushed. (Same as: Protonix) Acetaminophen Notes: (Same Inactive [place] 325 MG / as: [place] [address] [place] [address] Hydrocodone 325/5) Do not Cente r Bitartrate 5 MG exceed 4gm/day Oral Tablet of [[place] 5/325] acetaminophen. Hydromorphone Notes: Same as Inactive [facility] Dilaudid [address] [place] [address] Heparin 80 Route: IVP, Inactive [facility] unit/kg Bolus PRN, 5,400 2019 [facility] (Heparin Dosing unit, 5.4 mL, Ce nter Weight) Drug form: INJ, PRN, Heparin Protocol, Start date: 10/31/19 2:25:00 CDT Stop date: 11/30/19 2:24:00 CDT, 30 day, 0 Heparin 40 Route: IVP, Inactive [place] unit/kg Bolus PRN, 2,[address] [place] [address] (Heparin Dosing unit, 2.7 mL, Ce nter Weight) Drug form: INJ, PRN, Heparin Protocol, Start date: 10/31/19 2:25:00 CDT Stop date: 11/30/19 2:24:00 CDT, 30 day, 0 heparin Notes: Total Inactive [facility] additive 25,000 Concentration = 2019 Medical unit [18 50 unit/ ml Center unit/kg/hr] + Total volume = Premix Diluent 500 ml Send [facility] Sodium Chloride Request 2 hours 0.45% 500 mL prior to next bag Acetaminophen Notes: Do not Inactive [facility] 325 MG / exceed 4gm/day 2019 Medical Hydrocodone of [place] Bitartrate 10 acetaminophen. MG Oral Tablet (Same as: [place] 325/10) clorazepate Notes: (Same Inactive [place] as As: Tranxene-T) [address] [place] [address] tizanidine Notes: (Same [place]active [place] As: Zanaflex) [address] [place] [address] pregabalin 100 100 mg = 1 cap, Active H [place] mg oral capsule PO, QID, # 90 2019 Dc dical cap, 0 Center Refill(s) tizanidine 4 mg 4 mg = 1 tab, Inactive [facility] oral tablet PO, Q8H, PRN 2019 [facility] for muscle [place] spasms, # 90 tab, 0 Refill(s) clorazepate 7.5 7.5 mg = 1 tab, Inactive [facility] mg oral tablet PO, TID, PRN 2019 [facility] ion Anxiety, 0 Center Refill(s) linaclotide 145 microgram = Active [facility] exas 0.145 MG Oral 1 cap, PO, 2019 Medical Capsule Daily, 30 Center [Linzess] minutes prior to the first meal of the day, # 30 cap, 0 Refill(s) Dextrose 50% 12.5 gm, 25 mL, Inactive [facility] Syringe (D50W) Route: IVP, 2019 Medic al Drug Form: INJ, Center Dosing Weight 83.636, kg, PRN, PRN Blood Glucose Results, Start date: 10/31/19 2:06:00 CDT, Duration: 30 day, Stop date: 11/30/19 2:05:00 CDT, 0 Glucagon 1 mg, Route: Inactive [facility] IM, Drug form: [facility] Medical PDR/INJ, PRN, Center Dosing Weight 83.636, kg, PRN Blood Glucose Results, Start date: 10/31/19 2:06:00 CDT, Duration: 30 day, Stop date: 11/30/19 2:05:00 CDT, 0 Ondansetron Notes: (Same Inactive [place] as: Zofran) 2019 Medical MEDICATION Center WASTE Product Size: 4 mg Product Wasted: ___ mg Melatonin Notes: (Same Inactive [place] as: Melatonin) 2019 [facility] Aspirin 81 MG 81 mg = 1 tab, Active 05/05/ [place] Enteric Coated PO, Daily, # 90 2019 N euro Tablet tab, 3 Refill(s) cefdinir 300 MG 300 mg = 1 cap, Active 05/05/ cher Oral Capsule PO, BID, # 20 2019 Neuro cap, 0 Refill(s) Estrogens, 0.3 mg = 1 tab, Active 12/22/ ch er Conjugated PO, Daily, # 30 2019 Neuro ([facility]) 0.3 MG tab, 0 Oral Tablet Refill(s) [...] [facility]ENTER/[facility]acy #[id number] Acetaminophen 1 tab, PO, TID, Active 300 MG / PRN Pain, X 4 2017 [place] Codeine day, # 12 tab, Phosphate 30 MG 0 Refill(s) Oral Tablet [Tylenol with Codeine #3] acetaminophen-c Notes: Do not Inactive 05/07/ M H odeine #3 exceed 4gm/day 2018 [place] of acetaminophen. (Same as: Tylenol with Codeine # 3) Ondansetron Notes: (Same Inactive as: Evita) 2017 [place] MEDICATION WASTE Product Size: 4 mg Product Wasted: ___ mg Sodium Chloride 1,000 mL, 1000 Inactive 0.9% (Bolus) IV ml/hr, Infuse [facility] Over: 1 hr, Route: IV, 1,000, Drug form: INJ, ONCE, Priority: STAT, Dosing Weight 61.364 kg, Start date: 05/06/17 12:46:00 GENERAL REPAIRER, Stop date: 05/06/17 12:46:00 GENERAL REPAIRER Saline Flush Notes: (Same Inactive 0.9% as: BD 2017 [place] Posiflush) hyoscyamine 0.125 mg, 1 PO No Longer [facility] Monster as tab, Route: PO, Active 2012 [...] 50 mg, 1 tab, PO No Longer [facility] H [place] oral tablet PO, Q8H, PRN, Active 2012 Medica l 10 tab, as Center needed for pain, Substitution Allowed, TAB [place] 10/325 1 tab, Route: PO No Longer [place] oral tablet PO, Drug Form: Active 2012 Medic al TAB, Dosing Center Weight 65, kg, Q6H, PRN Pain, Start date: 01/22/13 21:22:00, Duration: 30 day, Stop date: 02/21/13 21:21:00 Omnipaque 100 mL, Route: IVP No Longer [facility] [place] 350mg/ml IVP, Drug Form: Active 2012 Medical SOLN, Dosing Center Weight 65, kg, ONCALL, STAT, Start date: 01/22/13 13:12:00, Duration: 1 doses or times, Dose = 2.2ml/kg, Max dose = 100ml -- "To be infused by Radiology Staff ONLY"Dose = 2.2ml/kg, Max dose = 100ml -- "To be infused by Radiology Staff ONLY" Dilaudid 0.5 mg, 0.25 IV No Longer [facility] mL, Route: IV, 2012 Medical Drug form: INJ, Center Q4H, Dosing Weight 65, kg, PRN as needed for pain, Start date: 01/22/13 12:17:00, Duration: 30 day, Stop date: 02/21/13 12:16:00 [place] 10/325 1 tab, Route: PO No Longer [facility] oral tablet PO, Drug Form: 2012 Medic al TAB, Dosing Center Weight 65, kg, Q4H, PRN Pain, NOW, Start date: 01/22/13 2:14:00, Duration: 30 day, Stop date: 02/21/13 2:13:00 Remeron 15 mg, 1 tab, PO No Longer [facility] Route: PO, Drug Active 2012 Medical form: TAB, Center Bedtime, Dosing Weight 65, kg, Start date: 01/21/13 21:00:00, Duration: 30 day, Stop date: 02/19/13 21:00:00 hyoscyamine 0.125 mg, 1 PO No Longer [facility] Monster as tab, Route: PO, 2012 Medical Drug form: TAB, Center TID, Dosing Weight 65, kg, Start date: 01/21/13 17:00:00, Duration: 30 day, Stop date: 02/20/13 13:00:00 D5W 1/2NS 1,000 1,000 mL, Rate: IV No Longer [facility] mL 75 ml/hr, Active 2012 Medical Infuse over: Center 13.3 hr, Route: IV, Dosing Weight 65 kg, Total Volume: 1,000, Start date: 01/21/13 15:44:00, Duration: 30 day, Stop date: 02/20/13 15:43:00 Dilaudid 0.5 mg, 0.25 IV No Longer [facility] mL, Route: IV, Active 2012 Medical Drug form: INJ, Center ONCE, Dosing Weight 65, kg, Start date: 01/21/13 14:32:00, Stop date: 01/21/13 14:32:00 Dilaudid 0.5 mg, 0.25 IV No Longer [facility] mL, Route: IV, Active 2012 Medical Drug form: INJ, Center Q8H, Dosing Weight 65, kg, PRN as needed for pain, Start date: 01/21/13 9:39:00, Duration: 30 day, Stop date: 02/20/13 9:38:00 senna 8.6 mg 8.6 mg, 1 tab, PO No Longer [facility] oral tablet Route: PO, Drug Active 2012 [facility] ion Form: TAB, Center Dosing Weight 65, kg, BID, PRN as needed for constipation, Start date: 01/21/13 9:39:00, Duration: 30 day, Stop date: 02/20/13 9:38:00 MiraLax 17 gm, 1 pkt, PO No Longer [facility] Route: PO, Drug Active 2012 Medical form: PWDR, Center Daily, Dosing Weight 65, kg, PRN Constipation, Start date: 01/21/13 9:38:00, Duration: 30 day, Stop date: 02/20/13 9:37:00 tramadol 50 mg 50 mg, 1 tab, PO No Longer [facility] oral tablet Route: PO, Drug Active 2012 Medi ion form: TAB, Q8H, Center Dosing Weight 65, kg, PRN as needed for pain, Start date: 01/21/13 9:38:00, Duration: 30 day, Stop date: 02/20/13 9:37:00 Protonix 40 mg, 1 tab, PO No Longer [facility] Route: PO, Drug Active 2012 Medical form: ECTAB, Center Daily, Dosing Weight 65, kg, Start date: 01/21/13 9:00:00, Duration: 30 day, Stop date: 02/19/13 9:00:00 Dilaudid 0.5 mg, 0.25 IV No Longer [facility], Route: IV, Active 2012 Medical Drug form: INJ, Center ONCE, Dosing Weight 65, kg, PRN as needed for pain, Start date: 01/20/13 22:21:00 Zosyn 3.375 gm, IVPB No Longer [facility] Route: IVPB, Active 2012 Medical Drug form: Center PDR/INJ, ABXQ8H, Start date: 01/20/13 11:00:00, Stop date: 02/19/13 2:00:00 enoxaparin 40 mg, 0.4 mL, SUB-Q No Longer [place]one [place] Route: SUB-Q, Active 2012 Medical Drug form: INJ, Center [id number], Dosing Weight 65, kg, Start date: 01/20/13 6:00:00, Duration: 30 day, Stop date: 02/18/13 6:00:00 NS + KCL 1,000 mL, Rate: IV No Longer [place] 20mEq/L 1000ml 125 ml/hr, Active 2012 Medica l (Premix) 1,000 Infuse over: 8 Ce nter mL hr, Route: IV, Dosing Weight 65 kg, Total Volume: 1,000, Start date: 01/20/13 5:25:00, Duration: 30 day, Stop date: 02/19/13 5:24:00 Zosyn 3.375 gm, IVPB No Longer Tyrone [facility] Route: IVPB, Active 2012 Medical Drug form: INJ, Center Q6H, Dosing Weight 65, kg, Priority: STAT, Start date: 01/20/13 5:24:00, Duration: 30 day, Stop date: 02/19/13 0:00:00 Dilaudid 0.5 mg, 0.25 IV No Longer [facility] mL, Route: IV, Active 2012 Medical Drug form: INJ, Center Q4H, Dosing Weight 65, kg, PRN as needed for pain, Start date: 01/20/13 5:23:00, Duration: 30 day, Stop date: 02/19/13 5:22:00 docusate Substitution Active [place] Allowed 2012 Medical Center ondansetron 4 mg, 2 mL, IVP No Longer [place] Route: IVP, Active 2012 Medical [...] 3.375 gm, IVPB No Longer Sajja [place] Route: IVPB, Active 2012 Medical Drug form: [...] IV 1,000 mL, Rate: IV No Longer [facility] 1000 mL 1,000 ml/hr, Active 2012 [...] Substitution Active [place] Allowed, 2012 [facility] Center clorazepate Substitution [place]owed 2012 [facility] Symax Duotab Substitution Active [place] as Allowed 2012 [facility] Prilosec Substitution Active [place] Allowed 2012 [facility] Premarin Substitution Active [place] Allowed 2012 [facility] Center Allergies, Adverse Reactions, Alerts Substance Category Reaction Severity Reaction Status Date Comments S ource type Reported diazepam<dove Assertion Drug Active Data [facility] p>1</sup> allergy 2 migrated Medic al from [facility] on 12/24/14. Originally documented as VALIUM. midazolam<s Assertion Drug Active Data [facility] up>2</sup> allergy 2 migrated Medi ion from [facility] on 12/24/14. Originally documented as VERSED. morphine<dove Assertion Drug Active Data [facility] p>3</sup> allergy 2 migrated Medic al from [facility] on 12/24/14. Originally documented as MORPHINE. Valium Assertion Drug Active [place] [facility] allergy Medical Center morphine drug Allergy [place] allergy [facility] cortisone drug Allergy Active [place] as allergy Medical [place] Immunizations No Data Provided for This Section Results Order Name Results Value Reference Date Interpretation Comments [facility] HEMATOLOGY PT 14.3 12.0 - 10/30 [facility] 14.7 /2019 [facility] HEMATOLOGY INR 1.11 0.85 - 10/30 [facility] 1.17 [facility] HEMATOLOGY PTT 94.8 22.9 - 10/30 [facility] 35.8 /2019 [facility] HEMATOLOGY PT 14.4 12.0 - 10/30 [facility] 14.7 /2019 [facility] HEMATOLOGY INR 1.11 0.85 - 10/30 [facility] 1.17 [facility] HEMATOLOGY PTT 86.8 22.9 - 10/30 [facility] 35.8 /2019 [facility] BLOOD BANK ABO/Rh O POS 10/30 [facility] RESULTS /2019 [facility] BLOOD BANK Antibody Negative 10/30 [facility] RESULTS Scrn (10/31/19 2:51 AM) /2019 [facility] CHEM PANEL Glucose Lvl 91 70 - 99 10/[address] CHEM PANEL BUN 13 7 - 22 10/[address] CHEM PANEL Creatinine 0.70 0.50 - 10/30 [facility] Lvl 1.40 [facility] CHEM PANEL Sodium Lvl 142 135 - 145 10/[address] CHEM PANEL Potassium 4.0 3.5 - 5.1 10/30 [facility] [place] [address] CHEM PANEL Chloride Lvl 108 95 - 109 10/[address] CHEM PANEL CO2 24 24 - 32 10/[address] CHEM PANEL Calcium Lvl 8.5 8.5 - 10.5 10/30 [facility] /[address] [place] [address] CHEM PANEL Total 6.6 6.4 - 8.4 10/30 [facility] Protein [address] CHEM PANEL Albumin Lvl 3.0 3.5 - 5.0 10/[address] CHEM PANEL ALT 16 0 - 65 10/[address] CHEM PANEL AST 20 0 - 37 10/[address] CHEM PANEL Alk Phos 102 39 - 136 10/[address] CHEM PANEL Bili Total 0.4 0.2 - 1.3 10/[address] CHEM PANEL AGAP 14.0 10.0 - 10/30 [place] 20.0 /2019 [facility] CHEM PANEL B/C Ratio 19 6 - 25 10/[address] CHEM PANEL Globulin 3.6 2.7 - 4.2 10/[address] CHEM PANEL A/G Ratio 0.8 0.7 - 1.6 10/[address] CHEM PANEL eGFR 91 10/30 Result [facility] Comment: The Medical eGFR is Center [...] HEMATOLOGY WBC 8.0 3.7 - 10.4 10/[address] HEMATOLOGY RBC 3.97 4.20 - 10/30 [place] 5.40 [facility] HEMATOLOGY Hgb 12.5 12.0 - 10/30 [facility] 16.0 [facility] HEMATOLOGY Hct 37.6 36.0 - 10/30 [facility] 48.0 [facility] HEMATOLOGY MCV 94.8 80.0 - 10/30 [facility] 98.0 [facility] HEMATOLOGY MCH 31.4 27.0 - 10/30 [facility] 31.0 [facility] HEMATOLOGY MCHC 33.1 32.0 - 10/30 [place] 36.0 [facility] HEMATOLOGY RDW 13.0 11.5 - 10/30 [facility] 14.5 [facility] HEMATOLOGY Platelet 229 133 - 450 10/[address] HEMATOLOGY MPV 8.8 7.4 - 10.4 10/[address] HEMATOLOGY PT 14.2 12.0 - 10/30 [facility] 14.7 /2019 [facility] HEMATOLOGY INR 1.10 0.85 - 10/30 [place] 1.17 [facility] HEMATOLOGY PTT 64.7 22.9 - 10/30 [facility] 35.8 /2020 [facility] HEMATOLOGY Segs 63.4 45.0 - 10/30 [facility] 75.0 /2020 Medical Center HEMATOLOGY Lymphocytes 26.0 20.0 - 10/30 [facility] 40.0 /2020 [facility] HEMATOLOGY Monocytes 8.5 2.0 - 12.0 10/30 [facility]2020 [facility] HEMATOLOGY Eosinophils 1.6 0.0 - 4.0 10/30 [place] /2020 [facility] HEMATOLOGY Basophils 0.5 0.0 - 1.0 10/30 [facility] HEMATOLOGY Neutrophils 5.1 1.5 - 8.1 10/30 [place] # /2020 [facility] HEMATOLOGY Lymphocytes 2.1 1.0 - 5.5 10/30 [facility] # /2020 [facility] HEMATOLOGY Monocytes # 0.7 0.0 - 0.8 10/30 [facility] HEMATOLOGY Eosinophils 0.1 0.0 - 0.5 10/30 [facility] # /2020 [facility] HEMATOLOGY Sed Rate 2 < OR = 30 03/15 Result June mm/hr Comment: Neuro
Lab test performed by:
[facility]
[address]
[place] [address]
Bryan Carpenter HEMATOLOGY SS-A (Ro) Ab <1.0 NEG <1.0 NEG 03/15 Result [facility] Comment: Neuro
Lab test performed by:
[facility]
[address]
[place] [address]
Dr. Bryan Carpenter HEMATOLOGY SS-B ([place]) Ab [...] Immunity Screen, ACIF.

Lab test performed by:
[id number]
[address]
[place] [address]
Dr. Bryan Carpenter HEMATOLOGY EBV VCA IgM 62.60 03/15 Result [facility] Comment: Neuro U/mL Interpretatio n
---- -
<36.00 Negative
36.00-43.99 Equivocal<br/ > >43.99 Positive

Lab test performed by:
[id number]
[address]
[place] [address]
Dr. Bryan Carpenter HEMATOLOGY ANGIOTENSIN 9 9 - 67 03/15 Result [facility] CONVERTING Comment: Neuro ENZYME
Lab test performed by:
[facility]
[address]
[place] [address]
Dr. Bryan Carpenter HEMATOLOGY Varicella 0.69 03/15 [...]
<br/& gt;FASTING: YES

Lab test performed by:
[email or web address]
[address]
[place] [address]
[address] Bryan Carpenter URINE AND UA Blood Negative Negative 05/06 STOOL (05/06/17 3:21 PM) [place] URINE AND UA Nitrite Negative Negative 05/06 [facility] (05/06/17 3:21 PM) [place] URINE AND UA Bili Negative Negative 05/06 [facility] *NA* /2017 [place] (05/06/17 3:21 PM) URINE AND UA Leuk Est Negative Negative 05/06 [facility] (05/06/17 3:21 PM) [place] URINE AND UA Sq Epi Few /LPF Few /LPF 05/06 STOOL [place] URINE AND UA Protein 30 mg/dL Negative 05/06 [facility] mg/dL [place] URINE AND UA Ketones 20 mg/dL Negative 05/06 [facility] mg/dL [place] URINE AND UA Glucose Negative Negative 05/06 [facility] mg/dL mg/dL [place] URINE AND UA <=1.0 0.1 - 1.0 05/06 [facility] Urobilinogen mg/dL [place] URINE AND UA RBC 1 0 - 2 05/06 STOOL [place] URINE AND UA Mucus Few /LPF None Seen 05/06 MH STOOL /LPF [place] URINE AND UA WBC 2 0 - 5 05/06 STOOL [place] URINE AND UA Color Yellow Yellow 05/06 STOOL *NA* /2017 [place] (05/06/17 3:21 PM) URINE AND UA Spec Grav 1.019 <=1.030 05/06 STOOL [place] URINE AND UA pH 5.0 5.0 - 8.0 05/06 STOOL [place] URINE AND UA Turbidity Slight Clear 05/06 STOOL *ABN* /2017 [place] (05/06/17 3:21 PM) CHEM PANEL Lipase Lvl 166 73 - 393 05/06 [place] CHEM PANEL Amylase Lvl 42 25 - 115 05/06 [place] ELECTROLYTE Chloride Lvl 100 95 - 109 05/06 S [place] ELECTROLYTE Sodium Lvl 139 135 - 145 05/06 S [place] ELECTROLYTE Potassium 4.0 3.5 - 5.1 05/06 S Lvl [place] ELECTROLYTE eGFR 41 05/06 MH Comment: The [place] eGFR is calculated using the CKD-EPI formula. [...] Total 0.7 0.2 - 1.3 05/06 S [place] ELECTROLYTE Alk Phos 82 39 - 136 05/06 S [place] ELECTROLYTE A/G Ratio 1.0 0.7 - 1.6 05/06 S [place] ELECTROLYTE ALT 19 0 - 65 05/06 S [place] ELECTROLYTE AST 15 0 - 37 / MH S [place] ELECTROLYTE Globulin 4.1 2.7 - 4.2 01/ MH S /2017 [place] ELECTROLYTE Albumin Lvl 4.3 3.5 - 5.0 05/06 MH S [place] ELECTROLYTE B/C Ratio 18 6 - 25 01 MH S [place] ELECTROLYTE Calcium Lvl 9.4 8.5 - 10.5 01 MH S [place] ELECTROLYTE Total 8.4 6.4 - 8.4 05/06 MH S [place] ELECTROLYTE CO2 27 24 - 32 05/06 MH S [place] ELECTROLYTE AGAP 16.0 10.0 - 05/06 MH S 20.0 [place] ELECTROLYTE Creatinine 1.36 0.50 - 05/06 MH S Lvl 1.40 [place] ELECTROLYTE BUN 24 7 - 22 05/06 MH S [place] ELECTROLYTE Glucose Lvl 77 70 - 99 05/06 MH S [place] HEMATOLOGY Lymphocytes 2.3 1.0 - 5.5 05/06 MH # /2017 [place] HEMATOLOGY Monocytes # 0.8 0.0 - 0.8 05/06 [place] HEMATOLOGY Eosinophils 0.2 0.0 - 4.0 05/06 MH [place] HEMATOLOGY Basophils 0.4 0.0 - 1.0 05/06 [place] HEMATOLOGY Segs-Bands # 6.4 1.5 - 8.1 05/06 [place] HEMATOLOGY Lymphocytes 24.4 20.0 - 05/06 MH 40.0 [place] HEMATOLOGY Monocytes 8.1 2.0 - 12.0 05/06 [place] HEMATOLOGY Segs 66.9 45.0 - 05/06 MH 75.0 [place] HEMATOLOGY MPV 8.4 7.4 - 10.4 05/06 [place] HEMATOLOGY Platelet 287 133 - 450 05/06 [place] HEMATOLOGY MCH 32.4 27.0 - 05/06 MH 31.0 [place] HEMATOLOGY RDW 12.5 11.5 - 05/06 MH 14.5 [place] HEMATOLOGY MCV 91.5 80.0 - 05/06 MH 98.0 [place] HEMATOLOGY MCHC 35.4 32.0 - 05/06 MH 36.0 [place] HEMATOLOGY Hct 42.5 36.0 - 01 48.0 /2017 [place] HEMATOLOGY WBC 9.6 3.7 - 10.4 05/06 [place] HEMATOLOGY Hgb 15.1 12.0 - 05/06 16.0 [place] HEMATOLOGY RBC 4.65 4.20 - 05/06 5.40 /2017 [place] CHEMISTRY eGFR 95 01/23 NA <sup>1</sup>R esult [...] CHEMISTRY AGAP 12.9 10.0 - 01/23 Normal [facility] 20.0 [facility] CHEMISTRY Calcium Lvl 8.5 8.5 - 10.5 01/23 Normal a [facility] CHEMISTRY Glucose Lvl 75 70 - 99 01/23 Normal <sup>4</sup>I T nterpretive Medical Data: Adult Center reference range values reflect the clinical guidelines
of the [employer]. CHEMISTRY CO2 28 24 - 32 01/23 Normal [facility] CHEMISTRY Chloride Lvl 106 95 - 109 01/23 Normal [facility] CHEMISTRY Potassium 3.9 3.5 - 5.1 01/23 Normal [facility] CHEMISTRY BUN 5 7 - 22 01/23 LOW [facility] CHEMISTRY Creatinine 0.7 0.5 - 1.4 01/23 Normal [facility] CHEMISTRY Sodium Lvl 143 [...] 10.0 2.0 - 12.0 01/23 Normal [facility] [place] HEMATOLOGY Monocytes # 0.6 0.0 - 0.8 [...] Lvl 109 73 - 393 01/22 Normal [facility] CHEMISTRY Globulin 3.1 2.0 - 4.0 01/22 Normal [facility] CHEMISTRY A/G Ratio 1.0 0.7 - 1.6 01/22 [facility] CHEMISTRY B/C Ratio 4 6 - 25 01/22 [facility] CHEMISTRY AGAP 11.9 10.0 - 01/22 [facility] 20.0 [facility] CHEMISTRY eGFR 95 01/22 NA <sup>2</sup>R esult [...] CHEMISTRY AST 16 0 - 37 01/22 [facility] CHEMISTRY CO2 26 24 - 32 01/22 [facility] CHEMISTRY Calcium Lvl 8.0 8.5 - 10.5 01/22 [facility] [place] [facility] CHEMISTRY Total 6.1 6.4 - 8.4 01/22 [facility] Protein [facility] CHEMISTRY Bili Total 0.5 0.2 - 1.3 01/22 [facility] CHEMISTRY Creatinine 0.7 0.5 - 1.4 01/22 [facility] CHEMISTRY Sodium Lvl 140 135 - 145 01/22 [facility] CHEMISTRY Chloride Lvl 106 95 - 109 01/22 [facility] CHEMISTRY Potassium 3.9 3.5 - 5.1 01/22 [facility] CHEMISTRY ALT 20 0 - 65 01/22 [facility] CHEMISTRY BUN 3 7 - 22 01/22 [facility] CHEMISTRY Glucose Lvl 115 70 - 99 01/22 [place] <sup>5</sup>I MH T ex nterpretive Medical Data: Adult Center reference range values reflect the clinical guidelines
of the [employer]. CHEMISTRY Alk Phos 74 39 - 136 01/22 Normal [facility] CHEMISTRY Albumin Lvl 3.0 3.5 - 5.0 01/22 LOW [facility] HEMATOLOGY Eosinophils 0.1 0.0 - 0.5 01[place] HEMATOLOGY Basophils 0.3 0.0 - 1.0 01/22 Normal [facility] HEMATOLOGY Segs-Bands # 2.8 1.5 - 8.1 01/22 Normal [facility] HEMATOLOGY Lymphocytes 2.0 1.0 - 5.5 01/22 [place] [facility] HEMATOLOGY Monocytes # 0.6 0.0 - 0.8 01/22 [place] [facility] HEMATOLOGY Lymphocytes 35.5 20.0 - 01/22 Normal [place] 40.0 [facility] HEMATOLOGY Monocytes 11.0 2.0 - 12.0 01/22 Normal [facility] HEMATOLOGY Eosinophils 2.1 0.0 - 4.0 01/22 Normal a s [facility] HEMATOLOGY Segs 51.1 45.0 - 01/22 Normal [place] 75.0 /2012 [facility] HEMATOLOGY Sed Rate 15 0 - 20 01/22 Normal [facility] HEMATOLOGY MCHC 34.6 32.0 - 01/22 Normal [place] 36.0 /2012 [facility] Center HEMATOLOGY MCH 32.8 27.0 - 01/22 HI [place] 31.0 /2012 Medical Center HEMATOLOGY RDW 12.3 11.5 - 01/22 Normal [place] 14.5 /2012 Medical Center HEMATOLOGY MPV 8.2 7.4 - 10.4 01/22 Normal [facility] HEMATOLOGY Platelet 189 133 - 450 01/22 Normal [facility] HEMATOLOGY RBC 3.63 4.20 - 01/22 LOW [place] 5.40 /2012 Medical Center HEMATOLOGY WBC 5.5 3.7 - 10.4 01/22 Normal [facility] HEMATOLOGY Hgb 11.9 12.0 - 01/22 LOW [place] 16.0 /2012 Medical Center HEMATOLOGY Hct 34.5 36.0 - 09/22 LOW [facility] 48.0 [facility] HEMATOLOGY MCV 94.9 81.0 - 01/22 Normal [facility] 99.0 [facility] TUMOR CA 19-9 7.0 0.0 - 35.0 01/22 Normal [facility] CHEMISTRY Lactic Acid 0.9 0.5 - 2.2 01/21 Normal [facility] CHEMISTRY eGFR 95 01/21 NA <sup>3</sup>R esult [...] Potassium 4.1 3.5 - 5.1 01/21 Normal [facility] CHEMISTRY Chloride Lvl 107 95 - 109 01/21 [facility] CHEMISTRY Sodium Lvl 140 135 - 145 01/21 [facility] CHEMISTRY Glucose Lvl 102 70 - 99 01/21 [place] <sup>6</sup>I T ex nterpretive Medical Data: Adult Center reference range values reflect the clinical guidelines
of the [place] [employer]. CHEMISTRY BUN 7 7 - 22 01/21 Normal [facility] CHEMISTRY CO2 25 24 - 32 01/21 Normal [facility] CHEMISTRY Calcium Lvl 8.2 8.5 - 10.5 01/21 [place] [facility] CHEMISTRY Creatinine 0.7 0.5 - 1.4 01/21 Normal [facility] CHEMISTRY AGAP 12.1 10.0 [...] Lvl 2.9 3.5 - 5.0 01/21 LOW [facility] CHEMISTRY AST 24 0 - 37 01/21 Normal [facility] CHEMISTRY Bili Total 0.7 0.2 - 1.3 01/21 Normal [facility] CHEMISTRY Total 5.7 6.4 - 8.4 01/21 [facility] CHEMISTRY B/C Ratio 22 6 - 25 01/21 [facility] CHEMISTRY A/G Ratio 1.0 0.7 - 1.6 01/21 Normal [facility] CHEMISTRY Globulin 2.8 2.0 - 4.0 01/21 Normal [facility] HEMATOLOGY Monocytes 8.6 2.0 - 12.0 01/21 Normal [facility] HEMATOLOGY Lymphocytes 23.8 20.0 - [...] Medical Center URINALYSIS Micro? Performed 01/20 Normal [facility] (01/19/2013 23:30:05) Dc dical Center URINALYSIS UA WBC None Seen None Seen 01/20 Normal [facility] (01/19/2013 23:30:05) Dc dical Center URINALYSIS UA Sq Epi Few /LPF Few 01/20 Normal [facility] (01/19/2013 23:30:05) Dc dical Center URINALYSIS UA RBC None Seen 0 - 2 01/20 Normal [facility] (01/19/2013 23:30:05) Me dical Center URINALYSIS UA Blood Negative Negative 01/20 Normal [facility] (01/19/2013 23:30:05) Dc dical Center URINALYSIS UA 0.2 0.1 - 1.0 01/20 Normal [facility] Urobilinogen /2012 Medical Center URINALYSIS UA Bili Negative Negative 01/20 NA [place] *NA* /2012 Medical (01/19/2013 23:30:05) Ce nter URINALYSIS UA Nitrite Negative Negative 01/20 Normal [facility] (01/19/2013 23:30:05) Me dical Center URINALYSIS UA Leuk Est Negative Negative 01/20 Normal [facility] (01/19/2013 23:30:05) Dc dical Center URINALYSIS UA Glucose Negative mg/dL Negative 01/20 Normal [facility] (01/19/2013 23:30:05) Dc dical Center URINALYSIS UA Ketones Negative mg/dL Negative 01/20 NA *NA* Medical (01/19/2013 23:30:05) Ce nter URINALYSIS UA pH 8.0 5.0 - 8.0 01/20 Normal [facility] URINALYSIS UA Protein Negative mg/dL Negative 01/20 Normal [facility] (01/19/2013 23:30:05) Dc dical Center URINALYSIS UA Turbidity Clear Clear 01/20 Normal [facility] (01/19/2013 23:30:05) Dc dical Center URINALYSIS UA Spec Grav 1.015 <=1.030 01/20 Normal [facility] URINALYSIS UA Color Yellow Yellow 01/20 NA /2012 Medical (01/19/2013 23:30:05) Ce nter CHEMISTRY Lipase Lvl 345 73 - 393 01/20 Normal [facility] CHEMISTRY Total 7.3 6.4 - 8.4 01/20 Normal [facility] CHEMISTRY Bili Total 0.5 0.2 - 1.3 01/20 Normal [facility] CHEMISTRY Albumin Lvl 3.8 3.5 - 5.0 01/20 Normal [facility] CHEMISTRY ALT 30 0 - 65 01/20 Normal [facility] CHEMISTRY Alk Phos 81 39 - 136 01/20 Normal [facility] CHEMISTRY Bili Direct 0.1 0.0 - 0.3 01/20 Normal [facility] CHEMISTRY AST 23 0 - 37 01/20 Normal [facility] CHEMISTRY Globulin 3.5 2.0 - 4.0 01/20 Normal [facility] CHEMISTRY A/G Ratio 1.1 0.7 - 1.6 01/20 Normal [facility] CHEMISTRY Bili 0.4 0.0 - 1.0 01/20 Normal [facility] HEMATOLOGY Basophils # 0.1 0.0 [...] pain since last admission in march/DLP:1306.16mGy-cm 05/06/2017 [facility] contrast only CT Comparison: CT abdomen pelvis [...] mild asymmetry in the renal size. SL: [id number] Abdomen/Pelvis CTA EXAM: CTA ABDOMEN. 01/22/2013 [facility] edical EXAM: CTA PELVIS. Center DATE: January [...] AND PELVIS, W/O CONTRAST 01/02 [facility] contrast CT Center DATE: 01/20/2013 at 0314hours [...] AND PELVIS, W/ CONTRAST, 01/19 [facility] contrast CT Center DATE: 01/20/2013 at 12 [...] [facility] DATE: January 19, 2013 at 2244 INDICATION: [...] Source Temperature Oral (F) 98.1 F 10/31/2019 [facility] Heart Rate 73 10/31/2019 [facility] Respitory Rate 20 10/31/2019 [facility] Systolic (mm Hg) 140 10/31/2019 [facility] dical [place] Diastolic (mm Hg) 84 10/31/2019 [facility] Temperature Oral (F) 98.2 F 10/31/2019 [facility] Heart Rate 80 10/31/2019 [facility] Respitory Rate 20 10/31/2019 [facility] Systolic (mm Hg) 160 10/31/2019 [facility] dical Center Diastolic (mm Hg) 90 10/31[facility] [place] Temperature Oral (F) 97.9 F 10/31/2019 [facility] Heart Rate 66 10/31/2019 [facility] Respitory Rate 20 10/31/2019 [facility] Systolic (mm Hg) 137 10/31/2019 [facility] dical Center Diastolic (mm Hg) 70 10/31/2019 [facility] Height 167.64 cm 10/31/2019 [facility] Weight 79.091 10/31/2019 [facility] BMI Calculated 28.14 10/31/2019 [facility] Systolic (mm Hg) 118 [...] 12/21/2018 [facility] BMI Calculated 31.18 12/21/2018 [facility] BMI Calculated 29.6 10/19/2018 [facility] Height 167.64 cm 10/19/2018 [facility] Weight 83.182 10/19/2018 [facility] Systolic (mm Hg) 106 10/19/2018 [facility] Diastolic (mm Hg) 70 10/19/2018 [facility] Respitory Rate 16 10/19/2018 [facility] Heart Rate 74 10/19/2018 [facility] BMI Calculated 27.5 09/08/2018 [facility] Weight 77.273 09/08/2018 [facility] Height 167.64 cm 09/08/2018 [facility] Respitory Rate 16 09/08/2018 [facility] Heart Rate 87 09/08/2018 [facility] Systolic (mm Hg) 105 09/08/2018 [facility] Diastolic (mm Hg) 68 09/08/2018 [facility] Heart Rate 72 05/07/2017 [facility] Systolic (mm Hg) 115 05/07/2017 [facility] Diastolic (mm Hg) 68 05/07/2017 [facility] [place] Respitory Rate 16 05/07/2017 [facility] Temperature Oral (F) 98.0 F 05/07/2017 [facility] [place] Temperature Oral (F) 97.7 F 05/07/2017 [facility] [place] Systolic (mm Hg) 111 05/07/2017 [facility] Diastolic (mm Hg) 65 05/07/2017 [facility] [place] Heart Rate 70 05/07/2017 [facility] Respitory Rate 17 05/07/2017 [facility] Weight 61.364 05/06/2017 [facility] Temperature Oral (F) 98.2 F 05/06/2017 [facility] [place] Heart Rate 83 05/06/2017 [facility] Respitory Rate 18 05/06/2017 [facility] [place] Systolic (mm Hg) 102 05/06/2017 [facility] [place] Diastolic (mm Hg) 55 05/06/2017 [facility] [place] Heart Rate 79 01/23/2013 [facility] Temperature Oral (F) 98.1 F 01/23/2013 [facility] Respitory Rate 18 01/23/2013 [facility] Systolic (mm Hg) 133 01/23/2013 [facility] dical Center Diastolic (mm Hg) 69 01/23/2013 [facility] edical Center Diastolic (mm Hg) 68 01/23/2013 [facility] edical Center Systolic (mm Hg) 129 01/23/2013 [facility] dical Center Heart Rate 67 01/23/2013 [facility] l Center Respitory Rate 18 01/23/2013 [facility] Temperature Oral (F) 98.4 F 01/23/2013 [facility] Heart Rate 65 01/23/2013 [facility] Systolic (mm Hg) 106 01/23/2013 [facility] dical Center Respitory Rate 18 01/23/2013 [facility] Diastolic (mm Hg) 59 01/23/2013 [facility] edical Center Temperature Oral (F) 98.5 F 01/23/[address] [facility] Height 158.4 cm 01/20/2013 [facility] Height 160.02 cm 01/20/2013 [facility] Center Weight 65 01/20/2013 [facility] Weight 65 01/16/2013 [facility] Diastolic (mm Hg) 78 01/16/2013 [facility] edical Center Systolic (mm Hg) 119 01/16/2013 [facility] dical Center Temperature Oral (F) 98.5 F 01/16/[address] [facility] Respitory Rate 18 01/16/2013 [facility] Heart Rate 87 01/16/2013 [facility] Encounters Location Location Encounter Encounter Reason Attending ADM NH Stat us Source Details Type Number For Provider Date Date Visit [facility] Outpatient [id number] ABD ATILLA 01/16 Active [facility] Medical 0 PAIN E[facility] Center [facility] RAULITO [id number] ATILLA 01/19 01/19 Discharg M [facility] [place] [facility] 1 ERTAN /2012 ed [facility] Center [facility] Inpatient [id number] HILARY 01/20 01/23 Dischar g [facility] Medical 3 SAJJA /2012 [facility] Emergency [id number] [place] 05/06 05/07 [facility] 4 [place] /2017 [place] [facility] Outpatient [id number] ANGELA 07/15 [facility] [place] [facility] [id number] ANGELA 07/15 [facility] [id number] Angela 08/03 [facility] [place] [facility] [id number] ANGELA / Active [facility] [place] [facility] Phone [id number] 08/18 08/20 [facility] [place] [facility] [id number] Angela 09/08 [facility] Outpatient [id number] Angela 09/08 09/09 [facility] 4 [facility] [place] Outpatient [id number] Angela 10/19 [facility] Outpatient [id number] Angela 10/19 10/20 [facility] 5 [facility] [place] Outpatient [id number] Angela 12/21 [facility] Outpatient [id number] Angela 12/21 12/22 [facility] 6 [facility] [place] Outpatient [id number] Angela 03/15 [facility] [place] [facility] Outpatient [id number] Angela 03/15 03/16 [facility] 7 [facility] [place] Outpatient [id number] Angela 03/22 [facility] Outpatient [id number] Angela 03/22 03/23 [facility] 8 [facility] [place] Outpatient [id number] Angela 05/05 Active [facility] Outpatient [id number] Angela 05/05 05/06 [facility] 9 [facility] [place] Outpatient [id number] Angela 08/03 Active [facility] Ambulatory [id number] Angela 08/03 08/03 [facility] Pre-Reg 0 [facility] [place] [facility]ation [id number] Afnan 10/30 10/[address] /[address] [facility] Outpatient [id number] POST ATILLA Cancel [facility] 2 FOLLOW [facility] Center Procedures Procedure Code Date Perfomer Comments Source cholecys [id number] 1gall bladder 2011 [facility] as <sup>1</sup> minicus in right knee 2 011 Medical bladder repair [place] appendectomy 1992 total hysterectomy 1979 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 cholecys<sup>1< [id number] gall bladder 2011 [place] elizabeth /sup> minicus in right knee 201 1 Neuro, bladder repair [facility] appendectomy 1992 [place], total hysterectomy 1979 P [place] 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 Assessment and Plan Assessment and Plan Date Source Extracted from:Title: History and Physical 10/31/2019 [facility] Author: Smith Estevez DO Date: 10/31/19 The patient is a 63 year old woman with PMH of HTN, meralgia paresthetica s/p recent lumbosacral plexopathy on 08/2019, cervical spondylosis who was transferred from [facility] to findings of PE and [...] with Observation Services, Telemetry Capable Location, Location: [address] [place] [address], Expected LOS: 2 Midnights, Yung Busch DO, [...] History Date Source Social History TypeResponse 10/31/2019 [facility] Alcohol Never Employment/School 1 Substance Abuse Use: [...]
--- OUTSIDE RECORDS SUMMARY | 2020-03-11 09:11 | XMS REPORT | Continuity of Care Document ---
:1955 Author Organization [facility] t Address [address] [place] [address] Care Team Providers Name Role Phone Nayla Alonzo MD Primary Care Physician Florentin Busch Attending Clinician Lauryn Fountain MD Attending Clinician Chel Florian MD Attending Clinician Danae TAYLOR Attending Clinician Wanda Suarez NP Attending Clinician eRza CHERY, SManjit Attending Clinician Chaparro RAVI Attending Clinician Unavailable Vahe HOYT Attending Clinician Unavailable Tulio Palacios Attending Clinician Kevin Stiles Attending Clinician [facility] Attending Clinician Unavailable Danitza Sotelo MD Attending Clinician Tima Melton Jr Attending Clinician Mike Hannah Admitting Clinician ANIVAL Admitting Clinician Unavailable Payers Payer Name Policy Type Policy Effective Date Expiration Date Sour ce Number [facility]IGNA [facility] [id number] [facility] HMO/POS/OPEN 00:00:00 - Medical [id number] Reva harding 013-PresentHMO/POS MEDICAREMEDICARE PART [id number] 2018 [place] J alex Brown AND 00:00:00 Synagogue [id number] 2018- [facility] CARESYDNEE SCMedicare COMMERCIAL MISCMISC [id number] [place] [id number] 00:00:00 Met anjali 05/2009-PresentCommer ial Problems Condition Condition Condition Status Onset Resolution Last Treating Co mments Source Name Details Category Date Date Treatment Clinician Date PE, Diagnosis Active 2019-2019-11-01 Mem oria PULMONARY 10-29 14:09:00 l DVT LEFT PE, 00:00: Agus LEG PULMONARY 00 DVT LEFT LEG Active 10/30/2019 [facility] Follow-up Follow-up Disease Active Lacho romero examinatio examinatio 6-18 Me thodi n n 00:00: st following following 00 surgery surgery S/P lumbar S/P lumbar Disease Active H dany laminectom laminectom 5-19 Me thodi y y 00:00: st 00 DDD DDD Disease Active 2019- [place] (degenerat (degenerat 4-13 Me thodi jhon disc jhon disc 00:00: st disease), disease), 00 lumbar lumbar Spinal Spinal Disease Active 2019- [place] stenosis stenosis 4-13 Method i of lumbar of lumbar 00:00: st region region 00 with with neurogenic neurogenic claudicati claudicati on on Thor[facility] Me thodi thy thy 00:00: st 00 Claudicati Claudicati Disease Active 2020- [place] on on 3-03 Methodi 00:00: st 00 Bilateral Bilateral Disease Active 2019- Lacho ston carotid carotid 2-04 Methodi artery artery 00:00: st stenosis stenosis 00 PAD PAD Disease Active [place] (periphera (periphera 2-04 Me thodi l artery l artery 00:00: st disease) disease) 00 Chronic Chronic Disease Active [place] back pain back pain 6-05 Meth nik 00:00: st 00 Generalize Generalize Disease Active H dany d d 4-30 Methodi abdominal abdominal 00:00: st pain pain 00 Right Right Disease Active [place] upper upper 07-26 Methodi quadrant quadrant 00:00: st pain pain 00 Slow Slow Disease Active [place] transit transit 07-26 Methodi constipati constipati 00:00: st on on History of History of Disease Active H dany cholecyste cholecyste 07-26 Ia thodi ctomy ctomy 00:00: st 00 Essential Essential Disease Active Lacho ston hypertensi hypertensi 07-26 Me thodi on on 00:00: st 00 Splenic Splenic Disease Active [place] artery artery 07-26 Methodi aneurysm aneurysm 00:00: st 00 Anxiety Anxiety Disease Active [place] 07-26 Methodi 00:00: st 00 ABDOMINAL Diagnosis Active 2017-05-06 Memoria PAIN/LOSS 05-06 18:11:00 l OF 00:00: Agus APPETITE ABDOMINAL 00 PAIN/LOSS OF APPETITE Active 05/06/2017 [facility] SURGERY Diagnosis Active 2013-01-20 Ia moria THIS 01-19 08:28:00 l MORNING, SURGERY 00:00: Maria E nn PROBLEMS THIS 00 BREATHING MORNING, PROBLEMS BREATHING Active 01/19/2013 [facility] POST Diagnosis Active 2013-03-05 Mem oria FOLLOW UP 01-19 15:20:00 l POST 00:00: [place] FOLLOW UP 00 Active 01/19/2013 [facility] BDDC-WEIGH Diagnosis Active 2013-01-19 Memoria T LOSS 01-17 08:37:00 l 00:00: Agus BDDC-WEIGH 00 T LOSS Active 01/17/2013 [facility] 783.21 - Diagnosis Active 2013-12-25 M emoria ABNORMAL 01-16 02:47:00 l LOSS O 783.21 - 00:01: Dwight sanon 576.0 - ABNORMAL 00 POSTCHO LOSS O 576.0 - POSTCHO Active 01/16/2013 MARIA VICTORIA Sauer ABD PAIN Diagnosis Active 2013-01-16 M emoria 01-11 13:45:00 l ABD PAIN 00:00: Dwight n 00 Active 01/11/2013 [facility] Acid Problem Resolve 2013-01-25 Abdiel leigh ann reflux d 21:01:15 l Acid Agus reflux Resolved Problem 01/25/2013 [facility] HTN - Problem Resolve 2013-01-25 Abdiel leigh ann Hypertensi d 21:01:15 l on HTN - [place] Hypertensi on Resolved Problem 01/25/2013 [facility] Gastroesop Problem Resolve 2019-11-02 Memoria hageal d 22:38:04 l reflux Agus disease Gastroesop (disorder) hageal reflux disease (disorder) Resolved Problem 11/02/2019 [facility] Lumbosacra Problem Resolve 2019-11-02 Memoria l plexus d 22:38:04 l neuropathy Dwight n (disorder) Lumbosacra l plexus neuropathy (disorder) Resolved Problem 11/02/2019 [facility] Cervical Problem Active 2019-11-02 Mem oria spondylosi 22:38:04 l s Cervical Dwight n (disorder) spondylosi s (disorder) Active Problem 11/02/2019 [facility] Hypertensi Problem Active 2019-11-02 M emoria ve 22:38:04 l disorder, Agus systemic Hypertensi arterial ve (disorder) disorder, systemic arterial (disorder) Active Problem 11/02/2019 [facility] Menopausal Problem Active 2019-11-02 M emoria syndrome 22:38:04 l (disorder) Dwight n Menopausal syndrome (disorder) Active Problem 11/02/2019 [facility] Meralgia Problem Active 2019-11-02 Mem oria parestheti 22:38:04 l ca Meralgia Dwight n (disorder) parestheti ca (disorder) Active Problem 11/02/2019 [facility] Pituitary Problem Active 2019-11-02 Me moria adenoma 22:38:04 l (disorder) Dwight n Pituitary adenoma (disorder) Active Problem 11/02/2019 Data migrated from [facility] on 12/25/14. [facility] Ulcer of Problem Active 2019-11-02 Mem oria lower 22:38:04 l extremity Ulcer of Her melendez (disorder) lower extremity (disorder) Active Problem 11/02/2019 [facility] ABDMNAL Diagnosis Active 2013-01-20 Me moria PAIN 08:28:00 l UNSPCF ABDMNAL [place] SITE PAIN UNSPCF SITE Active [facility] Unspecifie Problem 2017-05-09 2017-05-09 Memoria d 1-04 05:06:50 05:06:50 l abdominal 06:00: [place] pain Unspecifie 00 d abdominal pain 05/06/2017 05/09/2017 [facility] Allergies, Adverse Reactions, Alerts Allergy Allergy Status Severity Reaction(s) Onset Inactive Treating Comm ents Source Name Type Date Date Clinician Morphine Propensi Active Other (See Makes her [place] ty to Comments) 01-15 loud and Metho di adverse 00:00: crazy st reaction 00 s to drug Diazepam Propensi Active Other (See Makes her [place] ty to Comments) 01-15 crazy and Meth nik adverse 00:00: wild st reaction 00 s to drug Midazola Propensi Active Other (See Makes her [place] m ty to Comments) 01-15 crazy and Meth nik adverse 00:00: loud st reaction 00 s to drug midazola midazola Active 2011-05 Memori a m<sup>2< m<sup>2< 0-23 l /sup> /sup> 05:00: morphine morphine Active 2011-05 Memori a <sup>3</ <sup>3</ 0-23 l sup> sup> 05:00: midazola DA Active SV 2009-05 [facility] m HCl 05-13 00:00: [address] diazepam DA Active SV 2009-05 [facility] 05-13 00:00: [address] morphine DA Active MO 2009-05 [facility] 05-13 00:00: [address] Valium Valium Active Sung l Agus morphine morphine Active Eldon a larry Goldsmith cortison cortison Active Memdakota Goldsmith Family History Family Member Diagnosis Comments Start Date Stop Date Source Natural father Cancer [facility] thodist Natural father Liver cancer [place] [facility] Natural father Liver disease [place] [facility] Natural father Lung cancer [facility] ethodist Maternal grandfather Heart disease [facility] [place] [facility] Maternal grandfather [facility] Maternal grandmother Heart disease [place] [facility] Maternal grandmother Hypertension [place] [facility] Natural mother Cancer [facility] thodist Natural mother Colon cancer [place] [facility] Natural mother Ovarian cancer [place] [facility] Natural mother Stomach cancer [place] [facility] Social History Social Habit Start Date Stop Date Quantity Comments Source Sex Assigned At [facility] ethodist Tobacco use and 2019-09-20 2019-09-20 Never used [facility] ethodist exposure 00:00:00 00:00:00 Alcohol intake 2019-09-20 2019-09-20 Current [facility] thodist 00:00:00 00:00:00 non-drinker of alcohol (finding) Social History 2017-05-07 2017-05-07 [facility] ermann 04:13:00 04:13:00 Smoking Status Start Date Stop Date Source Never smoker [place] Autumn t Medications Ordered Filled Start Stop Current Ordering Indication Dosage Frequency Signature Comments Components Source Medication Medication Date Date Medication? Clinician (SIG) Name Name remove No Notes: Memoria patch 10-31 Remove l 05:40: patch 12 [place] 00 hours after applicatio n each day. sennosides, No Notes: Abdiel leigha nn SNF 10-31 (Same as: l 02:00: Senokot) [place] 00 tramadol No Notes: Not Mem oria hydrochlori 6-30 to exceed l de 50 MG 19:00: 400mg/day. Her melendez Oral Tablet 00 (Same As: Ultram) Lidocaine Yes 1 patch, Abdiel leigh ann Hydrochlori 6-30 TOP, l de 0.05 17:45: Daily, [place] MG/MG 00 Remove Transdermal after 12 Patch hours, # [Lidoderm] 30 patch, 0 Refill(s), Pharmacy: [facility] #[id number], 167.64, cm, 10/31/19 2:23:00 CDT, [...] 79.091, kg, 10/31/19 2:23:00 CDT, Weight Lidocaine 2019-0 No Notes: Memori a Hydrochlori 6-30 Apply [...] not crush l Coated 14:00: or chew. [place] Tablet (Same As: Ecotrin) Prilosec 2019-0 No 20 mg, Memoria 6-30 Route: PO, l 14:00: Daily, 00 Dosing Weight 83.636, kg, Start date: 10/31/19 9:00:00 CDT, Duration: 30 day, Stop date: 11/29/19 9:00:00 CDT pregabalin 2019-0 No Notes: Memor ia 6-30 (Same as: l 14:00: Lyrica) quinapril 2019-0 No 20 mg, 1 Abdiel leigh ann 6-30 tab, l 14:00: Route: PO, [place] 00 Drug form: TAB, Daily, Dosing Weight 83.636, kg, Start date: 10/31/19 9:00:00 CDT, Duration: 30 day, Stop date: 11/29/19 9:00:00 CDT Protonix No Notes: Memoria 6-30 Tablet l 14:00: should not [place] 00 be chewed or crushed. (Same as: Protonix) Acetaminoph No Notes: Abdiel leigh ann en 325 MG / 6-30 (Same as: l Hydrocodone 08:17: [place] Maria E nn Bitartrate 00 325/5) Do 5 MG Oral not exceed Tablet 4gm/day of [[place] acetaminop 5/325] hen. Hydromorpho No Notes: Abdiel leigh ann ne 6-30 Same as l 08:16: Dilaudid [place] 00 Heparin 80 No Route: Memor ia unit/kg 6-30 IVP, PRN, l Bolus 07:25: 5,400 Agus (Heparin 00 unit, 5.4 Dosing mL, Drug Weight) form: INJ, PRN, Heparin Protocol, Start date: 10/31/19 2:25:00 CDT Stop date: 11/30/19 2:24:00 CDT, 30 day, 0 Heparin 40 No Route: Memor ia unit/kg 6-30 IVP, PRN, l Bolus 07:25: 2,700 [place] (Heparin 00 unit, 2.7 Dosing mL, Drug [...] 10 MG Oral hen. Tablet (Same as: [place] 325/10) clorazepate No Notes: Abdiel leigh ann 6-30 (Same As: l 07:17: Tranxene-T ) tizanidine 2020-0 No Notes: Memor ia [...] 07:11: TID, PRN Anxiety, 0 Refill(s) linaclotide 2020-0 Yes 145 Memori a 0.145 MG 6-30 microgram l Oral 07:11: = 1 cap, [place] Capsule 00 PO, Daily, [Linzess] 30 minutes [...] Stop date: 11/30/19 2:05:00 CDT, 0 Glucagon 2020-0 No 1 mg, Memoria 6-30 Route: IM, l 07:06: Drug form: PDR/INJ, PRN, Dosing Weight 83.636, kg, PRN Blood Glucose Results, Start date: 10/31/19 2:06:00 CDT, Duration: 30 day, Stop date: 11/30/19 2:05:00 CDT, 0 Ondansetron 2020-0 No Notes: Abdiel leigh ann 6-30 (Same as: l 07:06: Zofran) MEDICATION WASTE Product Size: 4 mg Product Wasted: ___ mg Melatonin 2020-0 No Notes: Memori a 6-30 (Same as: l 07:06: Melatonin) [place] 00 doxycycline 2020-0 2020- No 100mg QD Take 100 [place] (VIBRAMYCIN 5-22 05-22 mg by Method i ) 100 MG 11:10: 00:[address] capsule 38 :00 daily. pregabalin 2020-0 Yes 100mg [id number] Take 100 [place] (LYRICA) 5-22 [id number] mg by Meth nik 100 MG 11:10: 3D mouth 3 st capsule 32 (three) times a day. quinapril 2020-0 Yes 20mg QD Take 20 mg [place] (ACCUPRIL) 5-22 by mouth Metho di 20 MG 11:10: nightly. st tablet 32 HYDROcodone 2020-0 Yes acute pain 1{tbl} [id number] Take 1 [place] -acetaminop 5-22 [id number] tablet by Methodpatt hen (NORCO) 11:10: 3D mouth 3 st 10-325 mg 32 (three) per tablet times a day .acute pain. MELATONIN 2019-0 Yes 5mg QD Take 5 mg Lacho [...] [place] (ZANAFLEX) 5-22 by mouth 2 Met kamari 4 MG tablet 11:10: (two) st 32 times a day as needed for muscle spasms. linaclotide 2020-0 2020- No 145ug Take 145 [place] (LINZESS) 4-01 04-01 mcg by Methodi 145 mcg 15:15: 00:[address] capsule 12 :00 needed. omega-3 2019-0 2020- No 300mg QD Take 300 [place] fatty acids 2-04 02-04 mg by Method i (FISH OIL) 09:49: 00:[address] 300 mg 29 :00 daily. capsule magnesium 2019-0 2019- No 400mg QD Take 400 [place] oxide 2-04 02-04 mg by Methodi (MAG-OX) 09:49: 00:[address] 400 mg 25 :00 daily. tablet CHOLECALCIF 2019-2019- No 2000U QD Take 2,000 Yoo MONICA, 2-04 02-04 Units by Methodi VITAMIN D3, 09:48: 00:[address] (D3-2000 48 :00 daily. ORAL) multivitami 2019-0 2020- No 1{tbl} QD Take 1 H [...] M emoria Conjugated 8-22 tab, PO, l (SNF) 0.3 13:52: Daily, # Herm emmett MG Oral 00 30 tab, 0 Tablet Refill(s) [Premarin] Acetaminoph Yes 1 tab, PO, Memoria en 325 MG / 8-22 Q6H, 0 l Hydrocodone 13:52: Refill(s) H ermann Bitartrate 00 10 MG Oral Tablet Belbuca Yes BUC, Q12H, Abdiel leigh ann 6-19 0 l 16:41: Refill(s) [place] 00 Buprenorphi Yes 150 Memori a ne 0.15 MG 6-19 microgram l Buccal Film 16:41: = 1 ea, Her melendez [[facility]] 00 BUC, BID, 0 Refill(s) buprenorphi 2019- No 150 [place] ne 6-19 04-01 microgram Methodi (BELBUCA) 00:00: 00:00 = 1 ea, st 150 mcg 00 :00 BUC, BID, film buccal 0 film Refill(s) amitriptyli Yes 20 mg = 2 Fabian grier ne 10 mg 4-18 tab, PO, l oral tablet 15:16: Bedtime, # Agus 24 180 tab, 3 Refill(s), Pharmacy: [facility] #[id number] amitriptyli 2019- No 20 mg = 2 Fredo ne (ELAVIL) 4-18 05-11 tab, PO, Met hodi 10 MG 00:00: 00:00 Bedtime, # st tablet 00 :00 180 tab, 3 Refill(s), Pharmacy: [facility] #[id number] CREON 2019- No TAKE ONE [place] 12,000-38,0 4-02 02-04 CAPSULE BY Fabian domingo [...] Weight 61.364 kg, Start date: 05/06/17 12:46:00 TISSUE COORDINATOR, Stop date: 05/06/17 12:46:00 TISSUE COORDINATOR Saline No Notes: Memoria Flush 0.9% 05-06 (Same as: l 18:46: BD [place] Posiflush) potassium 2016-05- No 10meq QD Take [...] Sajja 1 tab, l 16:30: Route: PO, [place] 00 Drug form: TAB, QID-Before Meals, Dosing [...] needed for pain, Substituti on Allowed, TAB [place] No [place] 1 tab, Memoria 10/325 oral 01-23 Sajja Route: PO, l tablet 02:22: Drug Form: Maria E nn 00 TAB, Dosing Weight 65, kg, Q6H, PRN Pain, Start date: 01/22/13 21:22:00, Duration: 30 day, Stop date: 02/21/13 21:21:00 Omnipaque No [place] 100 mL, Mem oria 350mg/ml 01-22j Route: l 18:12: IVP, Drug Form: SOLN, [...] Duration: 30 day, Stop date: 02/21/13 12:16:00 [place] No [place] 1 tab, Memoria 10/325 oral [...] 2012-0 No Elyssa 40 mg, 0.4 Memoria -20 Luis mL, Route: l 11:00: SUB-Q, Drug form: INJ, [id number], Dosing Weight 65, kg, Start date: 01/20/13 6:00:00, Duration: 30 day, Stop date: 02/18/13 6:00:00 NS + KCL No Elyssa 1,000 mL, Me moria 20mEq/L 20 Luis Rate: 125 l 1000ml 10:25: ml/hr, [...] Mem oria -20 on Allowed l 10:21: [place] 15 ondansetron No Elyssa 4 mg, 2 M emoria 20 Luis mL, Route: l 10:15: IVP, Drug form: INJ, Q8H, Dosing Weight 65, kg, PRN Nausea & Vomiting, Start date: 01/20/13 5:15:00, Duration: 30 day, Stop date: 02/19/13 5:14:00 NS 1,000 mL No Peter 1,000 mL, Memoria 9-20 Hardeep Rate: 75 l 09:41: Catherine ml/hr, [place] 00 Infuse over: 13.3 hr, Route: IV, Dosing Weight 65 kg, Total Volume: 1,000, Start date: 01/20/13 4:41:00, Duration: 30 day, Stop date: 02/19/13 4:40:00 Zosyn No [place] 3.375 gm, Memor ia 01-20 Sajja Route: l 08:51: IVPB, Drug Agus 00 form: PDR/INJ, ONCE, Dosing Weight 65, kg, Priority: STAT, Start date: 01/20/13 3:51:00, Stop date: 01/20/13 3:51:00 fentanyl No Willian 50 Memoria -20 Hardeep microgram, l 08:43: Catherine Route: Agus [...] 01-20 Hardeep Rate: l 03:38: Catherine 1,000 [place] 00 ml/hr, Infuse over: 1 hr, Route: [...] Oral (F) 2019-10-31 20:24:00 98.1 F [facility] [place] Heart Rate 2019-10-31 20:24:00 [facility] Agus Respitory Rate 2019-10-31 20:24:00 Memori al [place] Systolic (mm Hg) 2019-10-31 20:24:00 Abdiel rial [place] Diastolic (mm Hg) 2019-10-31 20:24:00 Mem orial [place] Temperature Oral (F) 2019-10-31 16:12:00 98.2 F [facility] [place] Heart Rate 2019-10-31 16:12:00 [facility] [place] Respitory Rate 2019-10-31 16:12:00 Memori al Agus Systolic (mm Hg) 2019-10-31 16:12:00 Abdiel rial [place] Diastolic (mm Hg) 2019-10-31 16:12:00 Mem orial Agus Temperature Oral (F) 2019-10-31 12:25:00 97.9 F [facility] [place] Heart Rate 2019-10-31 12:25:00 [facility] Agus Respitory Rate 2019-10-31 12:25:00 Memori al Agus Systolic (mm Hg) 2019-10-31 12:25:00 Abdiel rial Agus Diastolic (mm Hg) 2019-10-31 12:25:00 Mem orial Agus Height 2019-10-31 07:23:00 167.64 cm [facility] [place] Weight 2019-10-31 07:23:00 [facility] Agus BMI Calculated 2019-10-31 07:23:00 Memori al [place] Systolic blood 2019-09-22 07:44:14 153 mm[Hg] [place] [facility] pressure Diastolic blood 2019-09-22 07:44:14 70 mm[Hg] [place] [facility] pressure Heart rate 2019-09-22 07:44:14 65 /min [place] [facility] Body temperature 2019-09-22 07:44:14 36.78 Radha [place] [facility] Respiratory rate 2019-09-22 07:44:14 18 /min [place] [facility] Oxygen saturation in 2019-09-22 07:44:14 97 /min [place] [facility] Arterial blood by Pulse oximetry Body height 2019-09-19 10:00:00 167.6 cm [place] [facility] Body weight 2019-09-19 10:00:00 80.241 kg [place] [facility] BMI 2019-09-19 10:00:00 28.55 kg/m2 [place] [facility] Systolic (mm Hg) 2019-05-05 16:51:00 Abdiel rial Agus Diastolic (mm Hg) 2019-05-05 16:51:00 Mem orial Agus Heart Rate 2019-05-05 16:51:00 [facility] Respitory Rate 2019-05-05 16:51:00 Memori al Agus Height 2019-05-05 16:51:00 165.1 cm [facility] [place] Weight 2019-05-05 16:51:00 [facility] Agus BMI Calculated 2019-05-05 16:51:00 Memori al [place] Systolic (mm Hg) 2019-03-22 17:27:00 Abdiel rial [place] Diastolic (mm Hg) 2019-03-22 17:27:00 Mem orial [place] Heart Rate 2019-03-22 17:27:00 [facility] Agus Respitory Rate 2019-03-22 17:27:00 Memori al Agus Height 2019-03-22 17:27:00 165.1 cm [facility] Agus Weight 2019-03-22 17:27:00 [facility] [place] BMI Calculated 2019-03-22 17:27:00 Memori al Agus Systolic (mm Hg) 2019-03-15 17:56:00 Abdiel rial [place] Diastolic (mm Hg) 2019-03-15 17:56:00 Mem orial Agus Heart Rate 2019-03-15 17:56:00 [facility] [place] Respitory Rate 2019-03-15 17:56:00 Memori al [place] Height 2019-03-15 17:56:00 165.1 cm [facility] Agus Weight 2019-03-15 17:56:00 [facility] [place] BMI Calculated 2019-03-15 17:56:00 Memori al [place] Systolic (mm Hg) 2018-12-21 16:44:00 Abdiel rial Agus Diastolic (mm Hg) 2018-12-21 16:44:00 Mem orial Agus Heart Rate 2018-12-21 16:44:00 [facility] [place] Respitory Rate 2018-12-21 16:44:00 Memori al [place] Height 2018-12-21 16:44:00 165.1 cm [facility]us Weight 2018-12-21 16:44:00 [facility] [place] BMI Calculated 2018-12-21 16:44:00 Memori al [place] BMI Calculated 2018-10-19 16:19:00 Memori al [place] Height 2018-10-19 16:19:00 167.64 cm [facility] Agus Weight 2018-10-19 16:19:00 [facility] Systolic (mm Hg) 2018-10-19 16:19:00 Abdiel rial [place] Diastolic (mm Hg) 2018-10-19 16:19:00 Mem orial Agus Respitory Rate 2018-10-19 16:19:00 Memori al Agus Heart Rate 2018-10-19 16:19:00 [facility] BMI Calculated 2018-09-08 19:24:00 Memori al Agus Weight 2018-09-08 19:24:00 [facility] Height 2018-09-08 19:24:00 167.64 cm [facility] Respitory Rate 2018-09-08 19:24:00 Memori al Agus Heart Rate 2018-09-08 19:24:00 [facility] [place] Systolic (mm Hg) 2018-09-08 19:24:00 Abdiel rial Agus Diastolic (mm Hg) 2018-09-08 19:24:00 Mem orial [place] Heart Rate 2017-05-07 04:11:00 [facility]us Systolic (mm Hg) 2017-05-07 04:11:00 Abdiel rial [place] Diastolic (mm Hg) 2017-05-07 04:11:00 Mem orial [place] Respitory Rate 2017-05-07 04:11:00 Memori al [place] Temperature Oral (F) 2017-05-07 04:11:00 98.0 F [facility] [place] Temperature Oral (F) 2017-05-07 02:30:00 97.7 F [facility]us Systolic (mm Hg) 2017-05-07 02:30:00 Abdiel rial [place] Diastolic (mm Hg) 2017-05-07 02:30:00 Mem orial Agus Heart Rate 2017-05-07 02:30:00 [facility] [place] Respitory Rate 2017-05-07 02:30:00 Memori al Agus Weight 2017-05-06 18:43:00 [facility] [place] Temperature Oral (F) 2017-05-06 18:43:00 98.2 F [facility] [place] Heart Rate 2017-05-06 18:43:00 [facility] [place] Respitory Rate 2017-05-06 18:43:00 Memori al [place] Systolic (mm Hg) 2017-05-06 18:43:00 Abdiel rial [place] Diastolic (mm Hg) 2017-05-06 18:43:00 Mem orial Agus Heart Rate 2013-01-23 12:37:00 [facility] [place] Temperature Oral (F) 2013-01-23 12:37:00 98.1 F [facility] [place] Respitory Rate 2013-01-23 12:37:00 Memori al Agus Systolic (mm Hg) 2013-01-23 12:37:00 Abdiel rial [place] Diastolic (mm Hg) 2013-01-23 12:37:00 Mem orial [place] Diastolic (mm Hg) 2013-01-23 10:13:00 Mem orial Agus Systolic (mm Hg) 2013-01-23 10:13:00 Abdiel rial [place] Heart Rate 2013-01-23 10:13:00 [facility] [place] Respitory Rate 2013-01-23 10:13:00 Memori al Agus Temperature Oral (F) 2013-01-23 10:13:00 98.4 F [facility] [place] Heart Rate 2013-01-23 00:10:00 [facility] Agus Systolic (mm Hg) 2013-01-23 00:10:00 Abdiel rial [place] Respitory Rate 2013-01-23 00:10:00 Memori al [place] Diastolic (mm Hg) 2013-01-23 00:10:00 Mem orial [place] Temperature Oral (F) 2013-01-23 00:10:00 98.5 F [facility] [place] Height 2013-01-20 14:20:00 158.4 cm [facility] [place] Height 2013-01-20 01:53:00 160.02 cm [facility] Agus Weight 2013-01-20 01:53:00 [facility] [place] Weight 2013-01-16 19:03:00 [facility] Diastolic (mm Hg) 2013-01-16 19:03:00 Mem orial [place] Systolic (mm Hg) 2013-01-16 19:03:00 Abdiel rial Agus Temperature Oral (F) 2013-01-16 19:03:00 98.5 F [facility] Respitory Rate 2013-01-16 19:03:00 Memori al [place] Heart Rate 2013-01-16 19:03:00 [facility] Procedures [...] TIME WITH INR 2019-09-20 17:20:00 [facility] PARTIAL THROMBOPLASTIN 2019-09-20 17:20:00 [facility] TIME (PTT) BASIC METABOLIC PANEL 2019-09-20 17:20:00 Benita Shepherd Bao [place] IONIZED CALCIUM 2019-09-20 17:20:00 Benita Shepherd Me [facility]ist MAGNESIUM LEVEL 2019-09-20 17:20:00 Benita Shepherd [facility] PHOSPHORUS LEVEL 2019-09-20 17:20:00 Benita Shepherd M ethodist TROPONIN 2019-09-20 17:20:00 Benita Shepherd [facility] ESTIMATED GFR 2019-09-20 17:20:00 Benita Shepherd [facility] ECG 12-LEAD 2019-09-20 16:27:56 Benita Shepherd [facility] POC GLUCOSE 2019-09-20 16:25:00 Raffi Florian odist ANESTHESIA INTUBATION 2019-09-19 15:59:28 Douglas Gilmore ME AN ELECTIVE 2019-09-19 15:51:07 Douglas Gilmore ENDOTRACHEAL AIRWAY ARTERIAL LINE 2019-09-19 15:50:10 Douglsa Gilmore XR LUMBAR SPINE 1 VW 2019-09-19 15:40:00 Raffi Florian LAMINECTOMY, LUMBAR 2019-09-19 13:55:00 Raffi Florian SURGICAL PATHOLOGY 2019-09-19 08:26:00 Raffi Florian ethodist REQUEST COVID BIOREF (NCOVB) 2019-09-11 12:19:00 Raffi Florian COMPREHENSIVE METABOLIC 2019-09-11 12:11:00 Gabrielle Suarez PANEL ESTIMATED GFR 2019-09-11 12:11:00 Gabrielle Suarez HC COMPLETE BLD COUNT 2019-09-11 12:01:00 Raffi Florian W/AUTO DIFF CT POST MYELOGRAM 2019-09-06 12:33:08 Raffi Florian Ia thodist THORACIC CT POST MYELOGRAM LUMBAR 2019-09-06 12:32:32 Raffi Florian IR MYELOGRAM 2+REG INCL 2019-09-06 11:12:24 Raffi Florian INJ W S&I XR LUMBAR SPINE COMPLETE 2019-08-14 11:06:30 Raffi Florian W BENDING XR SPINE SCOLIOSIS 2-3 2019-08-14 11:06:00 Raffi Florian on [facility] VIEWS US CAROTID DUPLEX 2019-06-13 10:00:00 Silvio Sotelo Ia thodist BILATERAL CT ANGIOGRAM ABDOMINAL 2019-06-06 17:02:20 Silvio Sotelo AORTA AND BILATERAL ILIOFEMORAL RUNOFF W WO CONTRAST POC CREATININE 2019-06-06 15:21:00 Jose Moreno ESTIMATED GFR 2019-06-06 15:21:00 Jose Moreno BASIC METABOLIC PANEL 2019-06-06 11:02:00 Silvio Sotelo COPY(IES) SENT TO: 2019-06-06 11:02:00 Silvio Sotelo ethodist COPY RECEIVED FROM: 2019-06-06 11:02:00 Silvio Sotelo ECG 12-LEAD 2019-06-06 09:55:18 Silvio Sotelo Meth odist cholecys <sup>1</sup> [facility] ermann cholecys<sup>1</sup> [facility] Plan of Care Planned Activity Planned Date Details Comments Source Future Scheduled 2019-12-02 INFLUENZA VACCINE Anita Campbell Test 00:00:00 [code = INFLUENZA VACCINE] Future Scheduled 2018 65+ PNEUMOCOCCAL Fredo Campbell Test 00:00:00 VACCINE (1 of 1 - PPSV23) [code = 65+ PNEUMOCOCCAL VACCINE (1 of 1 - PPSV23)] Future Scheduled 2003-12-10 BREAST CANCER Yoo Me thodist Test 00:00:00 SCREENING [code = BREAST CANCER SCREENING] Future Scheduled 2003-12-10 COLONOSCOPY SCREENING Ho alex [facility] Test 00:00:00 [code = COLONOSCOPY SCREENING] Future Scheduled 2003-12-10 SHINGLES VACCINES (#1) H dany [facility] Test 00:00:00 [code = SHINGLES VACCINES (#1)] Encounters Start End Encounter Admission Attending Care Care Encounter Source Date/Time Date/Time Type Type Clinicians Facility Department ID 2019-10-31 2019-10-31 Outpatient Narayan [facility] [id number] 02:06:00 16:58:00 Yung Robert Lerma 2019-10-31 2019-10-31 Outpatient U [facility] MED [id number] [facility] 02:06:00 02:06:00 2019-10-19 2019-10-19 [facility] [id number] [place] 00:00:00 00:00:00 RAFFI [address] 2019-09-19 2019-09-22 Inpatient [facility] [id number] [place] 00:00:00 00:00:00 RAFFI [address] 2019-09-11 2019-09-11 [facility] [id number] [place] 00:00:00 00:00:00 RAFFI [address] 2019-09-11 2019-09-11 [facility] [id number] [place] 00:00:00 00:00:00 RAFFI [address] 2019-09-06 2019-09-06 [facility] [id number] [place] 00:00:00 00:00:00 RAFFI [address] 2019-09-06 2019-09-06 [facility] [id number] [place] 00:00:00 00:00:00 RAFFI [address] 2019-09-06 2019-09-06 [facility] [id number] [place] 00:00:00 00:00:00 RAFFI [address] 2019-08-14 2019-08-14 [facility] [id number] [place] 00:00:00 00:00:00 RAFFI [address] 2019-08-14 2019-08-14 [facility] [id number] [place] 00:00:00 00:00:00 RAFFI 895 [facility] i 2019-08-14 2019-08-14 Outpatient ANIVAL [facility] [id number] [place] 00:00:00 00:00:00 RAFFI 630 [facility] i 2019-08-14 2019-08-14 Outpatient ANIVAL [facility] [id number] [place] 00:00:00 00:00:00 RAFFI 198 [facility] i 2019-08-14 2019-08-14 Outpatient FLORIAN, [facility] [id number] [place] 00:00:00 00:00:00 RAFFI 226 Method i 2019-08-04 2019-08-04 Outpatient Suzanne MHMISCHER MHMISCHER [id number] 09:15:00 09:15:00 Felice 10 [facility] 2019-07-28 2019-07-28 [facility], [facility] [id number] 17:09:00 23:59:00 Nisreen [place] [id number] [place] [id number] [place] [id number] 2019-07-28 2019-07-28 Urgent Pob1, Acute [facility] [id number] 15:30:08 17:04:14 [facility] [id number] [place] 4.2.7.2.686 Professio [id number] nal [address] 2019-07-04 2019-07-04 Outpatient MELISSA [facility] [id number] [place] 00:00:00 00:00:00 SILVIO 741 Method i 2019-05-05 2019-05-05 Outpatient Suzanne, MHMISCHER MHMISCHER [id number] 11:45:00 23:59:59 Felice 09 [facility] 2019-03-22 2019-03-22 Outpatient Suzanne, MHMISCHER MHMISCHER [id number] 11:30:00 23:59:59 Felice 08 [facility] 2019-03-15 2019-03-15 Outpatient Suzanne MHMISCHER MHMISCHER [id number] 11:15:00 23:59:59 Felice 07 [facility] 2018-12-21 2018-12-21 Outpatient Suzanne, MHMISCHER MHMISCHER [id number] 11:30:00 23:59:59 Felice Tulio 2018-10-19 2018-10-19 Outpatient JOSELUIS PalaciosMISCHER MHMISCHER [id number] 11:45:00 23:59:59 Felice 05 Tulio 2018-09-08 2018-09-08 Outpatient JOSELUIS PalaciosMISCHER MHMISCHER [id number] 14:30:00 23:59:59 Felice 04 Tulio 2018-08-18 2018-08-19 Outpatient MHMISCHER MHMISCHER [id number] 10:14:00 23:59:59 00 2017-05-06 2017-05-06 Outpatient Linh, [place] [id number] 12:16:00 22:13:00 Bryan Alfred Results Test Description Test Time Test Comments Results Result Comments Source HEMATOLOGY 2019-10-31 20:36:00 Test Item Value Reference Range Interpretation Comme nts PT (test code = PT) 14.3 s 12.0-14.7 [facility] 20:36:00 Test Item Value Reference Range Interpretation Comments INR (test code = INR) 1.11 1 0.85-1.17 [facility]PB[facility]ELTFENR1506-[facility] 20:36:00 Test Item Value Reference Range Interpretation Comments PTT (test code = PTT) 94.8 s 22.9-35.8 [facility] CenterAxotzqdRAYDFTDYKP4888-67-22 14:58:00 Test Item Value Reference Range Interpretation Comments PT (test code = PT) 14.4 s 12.0-14.7 [facility] CenterCrvyfzbFIDIKGREHO4962-96-40 14:58:00 Test Item Value Reference Range Interpretation Comments INR (test code = INR) 1.11 1 0.85-1.17 [facility] CenterZffxclhEHJMGQQJFF6950-31-82 14:58:00 Test Item Value Reference Range Interpretation Comments PTT (test code = PTT) 86.8 s 22.9-35.8 [facility] ZMFDZRM2420-46-05 07:51:00Negative (10/31/19 2:51 AM) [facility] GYYOA8386-36-44 07:51:0091[facility]EL 2019-10-31 07:51:0013[facility] HermannCHEM WCVXW8968-44-98 07:51:000.70[facility] HermannCHEM FKWYZ2825-85-11 07:51:49449Tzstbydv HermannCHEM TFKGI3595-26-88 07:51:004.0[facility] HermannCHEM MBSRK4443-60-45 07:51:48157Bqqsokun HermannCHEM VQKYN3524-00-14 07:51:0024[facility] HermannCHEM WMMMW8560-35-49 07:51:008.5 [facility] HermannCHEM DRHZN5619-37-07 07:51:006.6[facility] HermannCHEM PANEL 2019-10-31 07:51:003.0[facility] HermannCHEM CHWIG8348-59-09 07:51:0016[facility] HermannCHEM CZNBF5307-75-45 07:51:0020[facility] HermannCHEM KNJIW6461-48-58 07:51:79598Pnqzflyq HermannCHEM YHLBZ3874-90-14 07:51:000.4[facility] HermannCHEM WEVIT5606-63-37 07:51:0014.0[facility] HermannCHEM IAWXG5991-15-38 07:51:00 Test Item Value Reference Range Interpretation Comments B/C Ratio (test code = B/C Ratio) 19 1 6-25 [facility] HermannCHEM WRSRY1288-05-22 07:51:003.6[facility] HermannCHEM PANEL 2019-10-31 07:51:00 Test Item Value Reference Range Interpretation Comments A/G Ratio (test code = A/G Ratio) 0.8 1 0.7-1.6 [facility] HermannCHEM PABDC1427-24-09 07:51:0091[facility] HermannHEMATOLOGY 2019-10-31 07:51:008.0[facility] AnnfyegJBHKJYZRZK3193-13-07 07:51:003.97[facility] UnnyeovQLKVWLAIUF5462-05-25 07:51:0012.5[facility] OgaljjmOWXSITCEXG4563-85-61 07:51:0037.6[facility]orial EjuvrdjYTABBINTNV0888-45-02 07:51:0094.8[facility] MQNEKQUIOO4633-66-60 07:51:00 Test Item Value Reference Range Interpretation Comments MCH (test code = MCH) 31.4 pg 27.0-31.0 [facility] UeqbwvcZEFTSOJQQX9349-19-82 07:51:0033.1[facility] HermannHEMATOLOGY 2019-10-31 07:51:0013.0Memorial GqsbozuGJFPXYUGMT4471-49-20 07:51:33213Qhslqyzv PyovcpeZCROJPQSKD3617-65-98 07:51:008.8Memorial QvxexhxGOWKCFLTYY5868-27-91 07:51:00 Test Item Value Reference Range Interpretation Comments PT (test code = PT) 14.2 s 12.0-14.7 Memorial CfmhqywGOAHCJKQCC7966-86-80 07:51:00 Test Item Value Reference Range Interpretation Comments INR (test code = INR) 1.10 1 0.85-1.17 Memorial EpioecxVWEIXYZTHK5991-41-31 07:51:00 Test Item Value Reference Range Interpretation Comments PTT (test code = PTT) 64.7 s 22.9-35.8 [facility] LdzqhedITSKUUSDXM9526-66-50 07:51:0063.4[facility] HermannHEMATOLOGY 2019-10-31 07:51:0026.0[facility]orial PxoucleQTHSACAVMR6499-56-77 07:51:008.5Memorial BkojpbgTXFSRWTHAF2050-98-56 07:51:001.6[facility]orial NprlfevSHSADUWJCW3004-84-97 07:51:000.5[facility]orial SdxpbtlPOVHVTIOPV4713-10-91 07:51:005.1[facility]us QZCXGXCEXF1929-49-09 07:51:002.1[facility]orial JqztqswQFEKPVAGPX1556-53-07 07:51:000.7 Memorial AhpsndiRCAXMTKIQF2401-73-86 07:51:000.1[facility] HermannSurgical pathology vjklnuk8631-12-95 17:07:26 Test Item Value Reference Range Interpretation Comments Case number (test code = [id number]) Surgical pathology See link below for report (test code = PDF Lab Report [id number]) Result status (test code This is Final Report = [id number]) for [id number] Fredo CampbellECG 12 jmtm7292-16-12 15:18:08 Test Item Value Reference Range Interpretation [...] was found- Fredo Becerra drugs of abuse bpljfw0855-67-05 22:23:33 Test Item Value Reference Interpretation Comments Range Amphetamine screen, Negative urine (test code = 3349-8) Barbiturate screen, Negative urine (test code = 3377-9) Benzodiazepine Negative screen, urine (test code = 3390-2) Cocaine screen, Negative urine (test code = 3397-7) Methadone Negative metabolite (EDDP), urine (test code = 77649-3) Opiates screen, Negative urine (test code = 3879-4) Oxycodone screen, Positive A urine (test code = 66999-7) Phencyclidine Negative screen, urine (test code = 3936-2) Tricyclic screen, Negative urine (test code = 47068-4) Cannabinoid screen, Negative Drug scr een minimum [...] ired. Lab Interpretation Abnormal (test code = 56399-6) Fredo MethodistUrinalysis screen and microscopy, with reflex to culture 2019-09-20 20:48:08 Test Item Value Reference Range Interpretation Comments Specimen site (test code = Clean catch 2397376) Color, UA (test code = 5778-6) Straw Appearance, UA (test code = Clear 5767-9) Specific gravity, UA (test code = 1.003 1.001-1.035 5811-5) pH, UA (test code = 5803-2) 7.0 5.0-8.5 Protein, UA (test code = 93004-2) Negative Negative Glucose, UA (test code = 78309-7) Negative Negative Ketones, UA (test code = 2514-8) Negative Negative Bilirubin, UA (test code = Negative Negative 5770-3) Blood, UA (test code = 5794-3) Negative Negative Nitrite, UA (test code = 5802-4) Negative Negative Urobilinogen, UA (test code = <2.0 <2.0 44665-9) Leukocyte esterase, UA (test code Negative Negative = 5799-2) Epithelial cells, UA (test code = 5 /HPF 5787-7) WBC, UA (test code = 5821-4) 1 0- 4 /HPF RBC, UA (test code = 20415-6) 1 0- 5 /HPF Bacteria, UA (test code = Few None seen 67496-2) Yeast, UA (test code = 99172-2) None seen Yeast with pseudohyphae, UA (test None seen code = 18663-8) Fredo CardosoistUrine mnosqdn8070-99-27 20:45:55 Test Item Value Reference Range Interpretation Comments Urine culture (test SEE COMMENT Bacteriu leigh ann screen code = 5277909) negative. Fredo MethodistCT Lumbar Spine Wo Gifqidob3186-37-35 19:17:16Hm Interface, Radiology Results 09/20/2019 7:20 PM [...] canal narrowing.Stable spondylotic foraminal narrowing at L5-S1 bilaterally.[facility]-WPHYRRSHouston MethodistCT Cervical Spine Wo Zvcvysfp3901-69-16 19:13:36Hm Interface, Radiology Results 09/20/2019 7:16 PM [...] canal narrowing.IMPRESSION:No acute fractures of the cervical spine.[facility]-HYRRSHouston MethodistAmmonia level 2019-09-20 19:03:26 Test Item Value Reference Range Interpretation Comments Ammonia (test code = 1841-6) 19 umol/L 11-51 [place] MethodistCT Head Wo Favzfglx3862-39-75 18:49:46Hm Interface, Radiology Results 09/20/2019 6:52 PM [...] air cells are clear.IMPRESSION:No acute intracranial abnormality identified.BOP-[id number] MethodistIonized nixzplr6774-34-23 18:34:40 Test Item Value Reference Range Interpretation Comments pH (test code = 2753-2) 7.52 Ionized calcium (test code = 1.13 mmol/L 1.11-1.32 ) [place] ZhhpctiwfBfstcxsr8711-66-96 18:28:56 Test Item Value Reference Range Interpretation Comments Troponin (test code 0.013 ng/mL 0-0.04 In patie nts suspected = 84308-7) of having a alpa cardial infarction, ederfito farrell with all other appro priate clinical [...] decreased by le ss than 0.020 ng/mL [place] [facility]oBasic metabolic wiiiv8436-36-99 18:27:26 Test Item Value Reference Range Interpretation Comments Sodium (test code = 2951-2) 145 135- 148 mEq/L Potassium (test code = 2823-3) 3.5 3.5- 5.0 mEq/L Chloride (test code = 2075-0) 105 98- 112 mEq/L CO2 (test code = 2027-) 23 24- 31 mEq/L L Anion gap (test code = 62693-6) 17@ANIO 7- 15 mEq/L H BUN (test code = 3094-0) 9 mg/dL 8-23 Creatinine (test code = 2160-0) 0.76 mg/dL 0.5-0.9 Glucose (test code = 2345-7) 142 mg/dL 65-99 H Calcium (test code = 31326-2) 9.5 mg/dL 8.8-10.2 Lab Interpretation (test code = Abnormal 33911-7) Yoo MethodistMagnesium lesld1232-75-21 18:27:26 Test Item Value Reference Range Interpretation Comments Magnesium (test code = 65733-0) 1.8 mg/dL 1.6-2.4 Yoo MethodistEstimated MPL5588-93-97 18:27:25 Test Item Value Reference Range Interpretation Comments Estimated GFR (test 82 mL/min/1.73 m2 [facility] code = 5488) InterpretationG 1 >=90 Normal or highG2 60-89 Mildly rvkhlwxqrR1y 45-59 Mildly to mode rately vbbfxfyyfP7n 30-44 Moderately to severely decreasedG4 15-29 Severely decre asedG5 <15 Kidn ey failureThe eGFR was calculated usjuan carlos g the Chronic Kidney Disease Epidemiology Co llaboration (CKD-EPI) equat ion. Interpretation is based on recommendations of the National Kidney Foundation-Kidn ey Disease Outcomes Qualit y Initiative (NKF-KDOQI) pub lished in 2014. Yoo MethodistPhosphorus cltwz1595-20-19 18:27:24 Test Item Value Reference Range Interpretation Comments Phosphorus (test code = 2777-1) 2.6 mg/dL 2.4-4.5 Fredo MethodistPartial thromboplastin time, topssxrqa8940-10-94 18:15:11 Test Item Value Reference Range Interpretation Comments PTT (test code = 24.7 23.0- 36.0 [place] [address]-8) unfractionated heparin is61.0-112.0 se conds which corresponds to Anti-Xa0.3-0.7 U/ml. Fredo MethodistProthrombin time with RXV7686-75-39 18:13:49 Test Item Value Reference Range Interpretation Comments Prothrombin time (test 13.3 11.5- 14.5 sec code = 5902-2) INR (test code = 1.0 The Interna tional 62636-6) Normalized Rati o (INR) is a therapeutic m onitoring tool for patien ts who are stable on oral anticoagulant t herapy. An INR of 2.0-3.0 is suggested for d eep vein thrombosis/pulm onary embolism. [place] MethodistC with platelet and poraagmwjupn0021-71-72 18:04:23 Test Item Value Reference Range Interpretation Comments WBC (test code = 64002-6) 13.52 4.50- 11.00 k/uL H RBC (test code = 64025-7) 4.10 m/uL 4.2-5.5 L HGB (test code = 718-7) 12.9 g/dL 12-16 HCT (test code = 4544-3) 39.3 % 37-47 MCV (test code = 787-2) 95.9 fL 82-100 MCH (test code = 785-6) 31.5 pg 27-34 MCHC (test code = 786-4) 32.8 g/dL 31-37 RDW - SD (test code = 42.5 fL 37-55 39871-1) MPV (test code = 72273-6) 10.4 fL 8.8-13.2 Platelet count (test code 229 150- 400 k/uL = 83359-8) Nucleated RBC (test code 0.00 /100 WBC = 28370-0) Neutrophils (test code = 78.5 % 39-69 H 46390-0) Lymphocytes (test code = 11.5 % 25-45 L 88996-1) Monocytes (test code = 9.4 % 0-10 17698-5) Eosinophils (test code = 0.0 % 0-5 03224-5) Basophils (test code = 0.2 % 0-1 65294-6) Immature granulocytes 0.4 % 0-1 "Immat ure (test code = 36941-3) granul ocytes" (promyelocytes, myelocytes, metamyelocytes) Lab Interpretation (test Abnormal code = 20443-1) [facility] ialwufk9065-31-95 16:26:11 Test Item Value Reference Range Interpretation Comments POC glucose (test code = 133 mg/dL 65-99 H Ope rator Name: Zion 48137-4) HeidiDevice ID: [id number] able: [facility] Notified supervisory investigative specialist Interpretation (test Abnormal code = 40580-6) Fredo CzmmsecdtHdtdvi7356-12-80 15:59:28Douglas Gilmore MD 09/19/2019 4:00 PMAirwayPerformed by: Douglas Gilmore MDAuthorized by: Douglas Gilmore MD [facility] EzcobdbrpMxaipw0552-59-43 15:51:07 Douglas Gilmore MD 09/19/2019 3:59 PMAirwayDate/Time: 09/19/2019 3:51 PMPerformed by: Douglas Gilmore MDAuthorized by: Douglas Gilmore MD Location: ORUrgency: ElectiveDifficult Airway: Yes Anesthesiologist: Douglas Gilmore MDPerformed by: anesthesiologistPreoxygenated with 100% O2: Yes Mask Ventilation: Easy maskFinal Airway Type: Endotracheal airwayTechnique Used: Flexible bronchoscopy (intubated successfully using FOB. )Insertion Site: OralBlade Type: Olson (attempt by Dr gilmore and dr Pitts, with Olsno 2 and cricoid pressure could not visualize glottis, only able to see epiglottis. )Laryngoscope Blade/Videolaryngoscope Blade Size: 2Measured from: LipsETT to Lips (cm): 23Placement Verified by: CO2 detection, direct visualization, equal breath sounds and fiber optic visualization Number of Attempts at Approach: 2 Fredo MethodistArterial qpgn4025-06-98 15:50:10Douglas Gilmore MD 09/19/2019 3:51 PMArterial linePerformed [...] no immediate complicationsHouston MethodistXR Lumbar Spine 1 Ui9735-97-88 15:48:20 Hm Interface, Radiology Results 09/19/2019 3:51 PM CDTEXAMINATION: XR LUMBAR SPINE 1 VWCLINICAL HISTORY: Z98.890 Other specified postprocedural statesCOMPARISON: Lumbar radiograph 08/14/2019IMPRESSION:Single lateral intraoperative radiograph of the lumbar spine in bone and soft tissue filters demonstrates a posterior approach surgical instrument tip directed towards the L4-L5 level with tip projecting along the inferior aspect of the L4 spinous process.[id number] MethodistCOVID BioRef (NCOVB)2019-09-13 13:20:03 Test Item Value Reference Range Interpretation Comments COVID BioRef Not Detected Not Detected Source Nasophar yngeal (NCOVB) SwabTesting per formed at (test code = [facility] 41 [address]-0) [place] [address] NOTE: Ple ase consider re-collection o f a new specimen, if cl inically indicated. NOTE : The COVID-19 assay has been cleared by the U.S. Food and DrugAdministrat ion under the Emergency Use A uthorization (EUA). [facility] is designated as a high complexity labo [...] under the Emergency Use A uthorization (EUA). [facility] is designated as a high complexi ty laboratory by the Clinical Laboratory Improvement Nina ndments of 1987(CLIA) and is qualified to perform this te st. ASSAY INFORMATION: Re al Time RT-PCR (Reported 09/12 12:29) Yoo MethodistComprehensive metabolic mwpox2164-82-89 13:47:39 Test Item Value Reference Range Interpretation Comments Sodium (test code = 142 135- 148 mEq/L 2951-2) Potassium (test code = 4.0 3.5- 5.0 mEq/L 2823-3) Chloride (test code = 100 98- 112 mEq/L 2075-0) CO2 (test code = 2027-9) 26 24- 31 mEq/L Anion gap (test code = 16@ANIO 7- 15 mEq/L H 52585-6) BUN (test code = 3094-0) 26 mg/dL 8-23 H Creatinine (test code = 0.90 mg/dL 0.5-0.9 2160-0) Glucose (test code = 111 mg/dL 65-99 H 2345-7) Calcium (test code = 10.5 mg/dL 8.8-10.2 H 08494-7) Protein (test code = 7.6 g/dL 6.3-8.3 -[place] n 2885-2) 4.6-7.0 g/dL1 week 4.4-7 .6 g/dL7 months-1y ear 5.1-7 .3 g/dL1-2 years 5.6-7 .5 g/dL>3 years 6.0-8 .0 g/bR45-611 6.3-8 .3 g/dL Albumin (test code = 4.0 g/dL 3.5-5 1751-7) A/G ratio (test code = 1.1 0.7-3.8 1759-0) Alkaline phosphatase 82 U/L 35-104 (test code = 6768-6) AST (test code = 1920-8) 20 U/L 10-35 ALT (test code = 1742-6) 17 U/L 5-50 Total bilirubin (test 0.3 mg/dL 0-1.2 code = 1975-2) Lab Interpretation (test Abnormal code = 70671-0) [place] MethodistIR Myelogram 2+Reg Incl Inj W S&I0595-31-60 14:46:39Hm Interface, Radiology Results 09/08/2019 2:49 PM [...] abnormalities.Mild blunting of the left C6 root sleeve.[facility]-[id number] MethodistCT Post Myelogram Gfusiqsu8458-07-43 12:41:37Hm Interface, Radiology Results 09/06/2019 12:44 PM [...] right C6 radiculopathy is recommended. [facility]-[id number] MethodistCT Post Myelogram Wwfpup1186-65-84 12:39:59Addendum by Ally Leong MD on 09/06/2019 [...] the right L3 nerve root. [facility]-[id number] MethodistXR Lumbar Spine Complete W Flex and Tac8789-89-72 11:34:25Hm Interface, Radiology Results 08/14/2019 11:37 AM [...] the right upper quadrant.IMPRESSION:Degenerative changes without acute abnormality.[facility]- [id number] and approved by radiology supervisor/fellow: Aaron Garcia, Marilyn Charles MD, personally reviewed the images and resident' s/fellow's findings and agree with the final report.[place] MethodistXR Spine Scoliosos 2-3 Jajqb5913-17-41 11:11:25Hm Interface, Radiology Results 08/14/2019 11:14 AM [...] anterior plate and screw fixation and interbody graft.[id number] [facility] COPY(IES) SENT TO:2019-06-07 05:40:00Copies/mLComment: TEVIN LUNA CARDIO [address] [place] [address] [place] [address] [facility] MethodistCOPY RECEIVED FROM:2019-06-07 05:40:00Copy received from:Comment: TEVIN CARLOSAILEEN CARDIO [address] [facility] [address] [place] [address] [facility] KoilardpxHLUAIUEPDS6543-62-48 18:52:002 [facility] SrkgzxnAZOQPKZQGQ4987-00-11 18:52:84930.20Mendriny HermannHEMATOLOGY 2019-03-15 18:52:0062.60Memorial TptczobQLEISKMFUF3052-74-18 18:52:009[facility]orial WxyaeluHOUKTGMENB7791-28-47 18:52:00 Test Item Value Reference Range Interpretation Comments Varicella IgM (test code = Varicella 0.69 1 IgM) [facility] HermannURINE AND QUJUG2802-98-62 21:21:00Negative (05/06/17 3:21 PM) [facility]ann[facility] AND PMFVE1323-98-78 21:21:00Negative (05/06/17 3:21 PM) [facility] AND UMRHA1173-63-60 21:21:00Negative *NA*(05/06/17 3:21 PM) [facility] AND JDRHR2000-18-03 21:21:00Negative (05/06/17 3:21 PM) [facility] AND PKTFY6798-54-44 21:21:001[facility] HermannURINE AND NSLFW0457-95-41 21:21:002Mem[facility] HermannURINE AND LRKAJ9148-29-36 21:21:00 Yellow *NA*(05/06/17 3:21 PM)[facility] HermannURINE AND BXPEH9009-63-91 21:21:00 1.019Mem[facility] HermannURINE AND STQWU5095-37-72 21:21:005.0[facility] HermannURINE AND KQLNR2526-75-73 21:21:00Slight *ABN*(05/06/17 3:21 PM)Memorial HermannCHEM KPPXT3535-14-46 20:57:05220Tzdxlbvt HermannCHEM AZWLP9450-67-06 20:57:0042 Memorial HzvkpmyUYBXBHPLTMOR7724-53-35 20:57:31754Rrbdpqmc HermannELECTROLYTES 2017-05-06 20:57:04856Vwapsbir HpwbhdaJZWEOBWNBMDI9678-70-80 20:57:004.0[facility] HhhditxECPYRNZVRAYR6147-37-66 20:57:0041[facility] OuucgxyQJANPHNIZTLG3056-61-30 20:57:000.7[facility] VruchvxAIMKRNNFXAVL1967-95-66 20:57:0082[facility] UDCEKPEFGFWQ0950-84-77 20:57:001.0[facility] FltfqrkHIZNZBMDPGZJ2396-67-95 20:57:0019[facility] CqirqifPMRUERCVIQJW8051-57-08 20:57:0015[facility] KKNOHYKCFWTJ5481-35-86 20:57:004.1[facility] FwbyfaoCECLFJFMYAYO2884-32-87 20:57:004.3[facility] InxjtidXMYXQWGXUTJW4709-36-43 20:57:0018[facility] XJHLXAZFPOVX3759-22-58 20:57:009.4[facility] YcqszkfJOWOTAFUKBTL0230-28-50 20:57:008.4[facility] MzdkdnjUNUFIRRUWMZL1142-15-58 20:57:0027[facility] RHKQWJNLTZDT3369-85-61 20:57:0016.0[facility] VfdggfpORWIEMZWDINT4442-07-39 20:57:001.36[facility] DmhmwknIWJSYIEEMRZL3138-33-81 20:57:0024[facility] KJVEROVGTLDE3098-96-83 20:57:0077[facility] WgpmzwbYODLEABCZL1181-77-22 20:57:00 2.3[facility] VlvslsfDSFDUHOXGD4905-23-17 20:57:000.8[facility]annHEMATOLOGY 2017-05-06 20:57:000.2[facility] FzslayzWDNRMQAYFE4389-29-23 20:57:000.4[facility] YtwkzrnHTUIWPUXPF4983-06-92 20:57:006.4[facility] VjvaiipRJLKWMQRYT1700-58-24 20:57:0024.4[facility] QfubfpyRZKKCMLWBH5329-90-35 20:57:008.1[facility] ASHCOCXXAA7887-98-83 20:57:0066.9[facility] GhafcllCBTJHPQXKY9087-58-81 20:57:00 8.4[facility] EpcxgadQCVXGCPHMP9442-45-18 20:57:42095Rdjkonqd HermannHEMATOLOGY 2017-05-06 20:57:00 Test Item Value Reference Range Interpretation Comments MCH (test code = MCH) 32.4 pg 27.0-31.0 [facility] TrnkvrfDNGMMYZVLS0024-71-14 20:57:0012.5[facility]annHEMATOLOGY 2017-05-06 20:57:0091.5[facility] OmynsifONVTLKSOJU7346-56-01 20:57:0035.4[facility] ShkelscHAWFOHLIHU8153-93-95 20:57:0042.5[facility] TwvjirfBCEVFRLVMW5676-13-13 20:57:009.6[facility] HnxiywcGGWELEFQHV7021-36-52 20:57:0015.1[facility] GFBVZHQMEN6123-23-28 20:57:004.65[facility] NsndlrcUJGTJHFTP7957-55-05 05:00:0095 [facility] GvrthlnZZXLRGSSV8926-67-00 05:00:0012.9[facility]annCHEMISTRY 2013-01-23 05:00:008.5[facility] XorvbtqERVNCHINM0532-27-27 05:00:0075[facility] FyedotcUHTDQENXV6766-42-13 05:00:0028[facility] XsecgskMRFHCEFVF1133-52-42 05:00:32554Dawaltad UuzjkyuKXTENTIKG3590-76-28 05:00:003.9[facility] DRNPRTSST1542-03-10 05:00:005[facility] SthrikzXQNVEIMAU8874-81-62 05:00:000.7 [facility] FqkhgysNAAMAVHGA5125-53-15 05:00:69975Zlisjkjv HermannHEMATOLOGY 2013-01-23 05:00:008.4[facility] DadfrrcAWQRUHGELT2956-99-42 05:00:003.95[facility] GyzopjeTTIMPKZOBU2158-39-49 05:00:005.7[facility] BlglsinVJLQJRUQTC1215-87-55 05:00:00 Test Item Value Reference Range Interpretation Comments MCH (test code = MCH) 33.0 pg 27.0-31.0 H [facility] AlbjjkqQQPMRLHFPM3742-73-75 05:00:0037.4[facility]annHEMATOLOGY 2013-01-23 05:00:0013.0[facility] HfuvbphBXTBQQIMXL8298-92-46 05:00:0094.8[facility] HxhyxybKAHAJVTUTC1304-67-78 05:00:0012.6[facility] QxriaonCAFQZGMWRQ5018-42-53 05:00:0034.8[facility] YooaihxUEZMHJOVII2938-03-92 05:00:14445Ayotkalg [place] BGYNKSGALX6255-88-69 05:00:0050.9[facility] KgbifygCTWXIAOATQ3169-49-59 05:00:00 36.5[facility] FtkwxrcZFCXJHYOAB5552-74-57 05:00:0010.0[facility]annHEMATOLOGY 2013-01-23 05:00:000.6[facility] ZxzdizlMVRQEAPGGZ6262-39-47 05:00:000.1[facility] OvzizsyPMCNVQUIHN6348-68-82 05:00:002.9[facility] QkeogihAAXQQIQTBL2986-58-05 05:00:002.1[facility] AzgidejAQUAPNGHRF2855-95-63 05:00:002.2[facility] HRKYGLXRAF4832-15-66 05:00:000.4[facility] NxzzxndJRZURIZMD9393-17-16 08:45:93373 [facility] SqvbywjCWIPDXTLE0912-13-64 08:45:003.1[facility] HermannCHEMISTRY 2013-01-22 08:45:001.0[facility] SxglbtyLVTUEULFT1554-29-92 08:45:004[facility] KxbteiiOWIZFWUTR5142-42-91 08:45:0011.9[facility] KsmmbeeQRJTFCHKB1916-71-76 08:45:0095[facility] IvbegstPNJSQJZIA0536-35-29 08:45:0016[facility] ICFKVZJPX9570-08-26 08:45:0026[facility] JfgdyasJKDRXDTBU1513-75-00 08:45:008.0 [facility] WjecojxFWLKOKXQV5143-49-42 08:45:006.1[facility]annCHEMISTRY 2013-01-22 08:45:000.5[facility] DrdhoweAFDJQAFRH1434-11-69 08:45:000.7[facility] FszdmatUIPJHEDQG0364-27-37 08:45:06364Dqzffjuz VenpilrYRAJBGGSV0904-02-29 08:45:47946Cflrfxxi PsvdnwiIPJMDZKQV9423-18-29 08:45:003.9[facility] KTTCCQVWV5690-19-22 08:45:0020[facility] HysspsiOFCBDAELT3998-52-16 08:45:003 [facility] DhofocxDEARZUVMS2876-76-62 08:45:44483Dpzirtcg HermannCHEMISTRY 2013-01-22 08:45:0074[facility] VedqnrsHHHMHLYYJ5997-00-66 08:45:003.0[facility] SdfuvxwAYREVPTLFM8004-40-90 08:45:000.1[facility] AuxsortGFGUKHVSKG7362-41-20 08:45:000.3[facility] TsynschQRDUKIDZTB4211-93-09 08:45:002.8[facility] SRGMHEANMA7783-18-73 08:45:002.0[facility] IdqjogsPJPUJJJABF2436-66-19 08:45:000.6 [facility] NdnccdqRLPQBVOAMJ6293-48-63 08:45:0035.5[facility]annHEMATOLOGY 2013-01-22 08:45:0011.0[facility] KgvlealAWMMYHPLRJ2021-85-61 08:45:002.1[facility] KcfoaqfGZCMYZDHFB8302-47-67 08:45:0051.1[facility] NorykliHNADOSHTOU1990-88-72 08:45:0015[facility] LwthtxwTRPIJGSAQO7436-22-10 08:45:0034.6[facility] LQKPQRQSHK9667-91-16 08:45:00 Test Item Value Reference Range Interpretation Comments MCH (test code = MCH) 32.8 pg 27.0-31.0 H [facility] RvwrdqvLRSZKKUOCO3224-07-45 08:45:0012.3[facility]annHEMATOLOGY 2013-01-22 08:45:008.2[facility] MyiubmdJGSHRFVSJM4217-47-60 08:45:00796Letzicrj ObuwliyRVXZOCNPCH3565-25-47 08:45:003.63[facility] GxsgflgDOTMCNXLMR7517-57-71 08:45:005.5[facility] CghfhliPYIDXQRFGV2265-78-16 08:45:0011.9[facility] YMKUMZMZJJ9795-22-21 08:45:0034.5[facility] HuoyazcZCUJVLBLRP3129-08-34 08:45:00 94.9[facility] HermannTUMOR DZVZLJU8887-69-45 08:45:007.0[facility] HermannCHEMISTRY 2013-01-21 16:51:550.9[facility] GsjrrzcGQNDDPYFT6872-24-75 16:51:0095[facility] OyltwbmMRBXRMHRU5247-80-74 16:51:004.1[facility] YsqlrynNBDUSULFY2897-70-76 16:51:06696Opyjmotm MnrthwkGKMDIIMUM3508-65-43 16:51:32354Xuqqpyzb [place] NZHCWTVYW6080-44-77 16:51:85383Dowvtwrc RsxwizpQVZLMWCRB8427-21-83 16:51:007 [facility] WhopgokEZAMUIHYQ1174-49-21 16:51:0025[facility]annCHEMISTRY 2013-01-21 16:51:008.2[facility] YenmfawRGGCBEMHB4709-55-63 16:51:000.7[facility] VaykbsbCVFFXJJWJ3869-40-77 16:51:0012.1[facility] RcqibxhBGOHWSDER1573-68-21 16:51:001.38[facility] IxdpzwkDUVFVLVTJ7166-46-09 07:55:001.8[facility] XKYQRSTHU8982-64-54 07:55:36803Sqsrtmsv QamjqeiVFLGRSLIN7139-91-94 07:55:0066 [facility] GpwjyarRHRSXMWZZ0364-95-66 07:55:0018[facility] HermannCHEMISTRY 2013-01-21 07:55:002.9[facility] FfrattiQDNNUZWAV1772-78-26 07:55:0024[facility] WezuyjmXQPVPDYBP5383-07-16 07:55:000.7[facility] SqdcczuPXKDSWABW7943-95-44 07:55:005.7[facility] SeuitqxRGJJTIOAH1069-04-44 07:55:0022[facility] LCVIHTAXC9374-42-06 07:55:001.0[facility] KuvztdtTTVAZZMKZ3471-65-50 07:55:002.8 [facility] RsfwbrwHLZXVLVZTU9534-85-42 07:55:008.6[facility]annHEMATOLOGY 2013-01-21 07:55:0023.8[facility] OituuezRHDHOZSZWZ9495-34-72 07:55:000.6[facility] NkrxxepEDNKHOLLQI9929-01-23 07:55:0066.4[facility] XzalgnjCDQTYUPJSH6297-95-63 07:55:000.8[facility] YxycipqMBEAXYVNIP8501-21-53 07:55:002.1[facility] PJOAVCOIKJ3079-92-52 07:55:000.6[facility] LsipwoeQKLDGLCXHE1429-58-13 07:55:005.9 [facility] GrhrdoyEDTTSHUKDB0833-54-71 07:55:000.1[facility]annHEMATOLOGY 2013-01-21 07:55:000.1[facility] DnkrqglFDWFOPIMOV9931-21-31 07:55:0012.7[facility] CemesxkBIEZNOPIAD7150-03-81 07:55:0034.1[facility] LmwupnmTGLEVHDLFL7681-36-19 07:55:0095.7[facility] QtqrksrUNCQIDUIPI5999-56-55 07:55:0011.5[facility] NLOXEBQGBV5163-69-14 07:55:0033.6[facility] LtkveiqGIZRJHJORG5832-80-85 07:55:00 Test Item Value Reference Range Interpretation Comments MCH (test code = MCH) 32.6 pg 27.0-31.0 H [facility] ZvxylgsBQANRXHXWA5194-37-34 07:55:008.5[facility]annHEMATOLOGY 2013-01-21 07:55:99438Gpngmylu OxpozqtOJOCCTQGTY6967-43-53 07:55:003.52[facility] DkslcbfAWPPTLHEMY5879-75-25 07:55:008.9[facility] XgsedazEBJRFBKQDC8311-00-75 04:30:05Performed (01/19/2013 23:30:05)[facility] YsluzugNQGPGLWPLP4763-62-46 04:30:05None Seen (01/19/2013 23:30:05)[facility]ccnhclKJHEQBDWVS6647-59-89 04:30:05Few /LPF (01/19/2013 23:30:05)[facility] HospitalAcmbtubNUTYUYHZPY6090-93-19 04:30:05None Seen (01/19/2013 23:30:05)[facility] HospitalUyfsjsgPGZCMCITNB4127-06-20 04:30:05Negative (01/19/2013 23:30:05)[facility] HospitalUrhylhiXMCMEZUMVQ2014-10-80 04:30:050.2[facility] NsunjsoZVIQENEGRC7944-75-35 04:30:05Negative *NA*(01/19/2013 23:30:05)[facility] HospitalUcgofiiWZDQGQGCAU9643-97-40 04:30:05Negative (01/19/2013 23:30:05)[facility] HospitalGzmpjkrRZMTHPGXEM1300-26-67 04:30:05Negative (01/19/2013 23:30:05)[facility]hlqwocLEASLCNRAZ2394-67-81 04:30:05Negative mg/dL (01/19/2013 23:30:05)[facility] HeightsJxgiyqiBBULHDNVUJ0336-76-25 04:30:05Negative mg/dL *NA*(01/19/2013 23:30:05)[facility] HeightsGmbppskGEFCQWACJW3158-03-93 04:30:05 Test Item Value Reference Range Interpretation Comments UA pH (test code = UA pH) 8.0 1 5.0-8.0 N [facility] HospitalKjtqtizCTGIOEZDLZ9989-78-24 04:30:05Negative mg/dL (01/19/2013 23:30:05)[facility] HeightsCeynknvFYCYMONNSM6416-73-09 04:30:05Clear (01/19/2013 23:30:05)[facility] CenterVooqqjiYEGXEVLIPG7680-90-73 04:30:05 Test Item Value Reference Range Interpretation Comments UA Spec Grav (test code = UA Spec 1.015 1 N Grav) [facility] HospitalDdsagttYCQHKYPHEF5011-82-72 04:30:05Yellow *NA*(01/19/2013 23:30:05) [facility] AiqzyziPHREONOGF3152-92-36 03:30:53079Wclzibkp HermannCHEMISTRY 2013-01-20 03:30:007.3[facility] RbjauhjXFGOLNLJX6966-58-59 03:30:000.5[facility] UglxxrtXFAIVYCFU1080-48-43 03:30:003.8[facility] MmctllqTKALUPUCM5545-77-13 03:30:0030[facility] FlvlpovJJGOBQQIO3329-11-08 03:30:0081[facility] BVTTJYGSO2284-09-35 03:30:000.1[facility] SmsovlrTMLWMWAOG5587-86-47 03:30:0023 [facility] HfxntowYUAMSQULX3156-65-74 03:30:003.5[facility] HermannCHEMISTRY 2013-01-20 03:30:001.1[facility] XxwgqshYQWRUFBDA3781-67-16 03:30:000.4[facility] ShxotrmHCBIGGXGGG0859-75-22 03:30:000.1[facility]
[2020-03-11] MEDS ORDERED: LORAZEPAM 1 MG TABLET ONE (09:24)
--- NOTE | 2020-03-11 10:26 | ER ---
Nurse's Notes [facility] Name: Haley Porter Age: 64 yrs Sex: Female : 1955 Arrival Date: 03/11/2020 Time: 08:41 Bed 7 Private MD: Diagnosis: Viral infection, unspecified Presentation: 03/11 09:05 Chief complaint: Patient states: woke up with a sore throat yesterday, also had a iw headache, dizziness no fever no cough or congestion, denies vomiting or diarrhea. Ebola Screen: Patient negative for fever greater than or equal to 101.5 degrees Fahrenheit, and additional compatible Ebola Virus Disease symptoms Patient denies exposure to infectious person. Patient denies travel to an Ebola-affected area in the 21 days before illness onset. No symptoms or risks identified at this time. Risk Assessment: Do you want to hurt yourself or someone else? Patient reports no desire to harm self or others. Onset of symptoms was March 10, 2020. 09:05 Method Of Arrival: Ambulatory iw 09:05 Acuity: RADHA 3 iw 09:10 Coronavirus screen: At this time, the client does not indicate any symptoms associated bp with coronavirus-19. Initial Sepsis Screen: Does the patient meet any 2 criteria? No. Patient's initial sepsis screen is negative. Does the patient have a suspected source of infection? No. Patient's initial sepsis screen is negative. Triage Assessment: 08:50 General: Appears distressed, Behavior is agitated, anxious, crying. Pain: Denies pain. bp EENT: Reports pain when swallowing. Neuro: Level of Consciousness is awake, alert, obeys commands, Oriented to Appropriate for age. Cardiovascular: No deficits noted. Respiratory: Respiratory pattern is tachypnea. GI: No signs and/or symptoms were reported involving the gastrointestinal system. : No signs and/or symptoms were reported regarding the genitourinary system. Derm: No deficits noted. Musculoskeletal: No deficits noted. Historical: - Allergies: 09:09 Morphine; iw 09:09 Oral steroids; iw 09:09 Valium; iw 09:09 Versed; iw - Home Meds: 09:09 clorazepate dipotassium 7.5 mg Oral tab 1 tab daily [Active]; Eliquis 5 mg Oral tab 2 iw times per day [Active]; Eliquis Oral instructed to take 10 mg BID for 1 week, then decrease to 5 mg [Active]; furosemide 40 mg Oral tab 1 tab once daily [Active]; Linzess 290 mcg Oral cap 2 cap as needed [Active]; Lyrica 100 mg Oral cap 1 cap four times a day [Active]; omeprazole 20 mg Oral TbEC daily [Active]; oxycodone-acetaminophen 10-325 mg Oral tab 1 tab every 6 hours [Active]; potassium chloride 20 mEq Oral TbTQ 1 tab once daily [Active]; quinapril 20 mg Oral tab 1 tab once daily [Active]; - PMHx: 09:09 Anxiety; Hypertension; Pancreatitis; pulmonary emboli; TMJ; iw - Immunization history:: Adult Immunizations not up to date. - Social history:: Smoking status: Patient denies any tobacco usage or history of. Screenin:52 Abuse screen: Denies threats or abuse. Denies injuries from another. Nutritional bp screening: No deficits noted. Tuberculosis screening: No symptoms or risk factors identified. Fall Risk None identified. Assessment: 08:52 General: SEE TRIAGE NOTE. Respiratory: Airway is patent Respiratory effort is even, bp unlabored, Respiratory pattern is tachypnea Breath sounds are clear bilaterally. 09:00 EENT: Throat is clear bilaterally. bp 10:15 Reassessment: PT AMBULATORY TO BATHROOM WITH FAMILY, NO ATAXIA OR GAIT DISTURBANCE bp NOTED. 11:00 Reassessment: PT REMAINS ANXIOUS, STATES "I DON'T WANT ANYTHING ASSOCIATED WITH COVID". bp PT RE-EVALUATED BY LMP AND STAFF. 11:15 Reassessment: PT D/C HOME VIA W/C WITH FAMILY, DX WITH VIRAL URI. bp Vital Signs: 09:05 BP 133 / 84; Pulse 66; Resp 24 S; Temp 97.65; Pulse Ox 98% on R/A; Weight 78.93 kg; iw Height 5 ft. 6 in. (167.64 cm); Pain 8/10; 10:00 BP 118 / 61; Pulse 70; Resp 17; Pulse Ox 98% ; bp 11:15 BP 102 / 90; Pulse 68; Resp 18; Pulse Ox 98% ; bp 09:05 Body Mass Index 28.08 (78.93 kg, 167.64 cm) iw ED Course: 08:41 Patient arrived in ED. as 08:50 Trey Peñaloza, RN is Primary Nurse. bp 08:51 Arm band placed on. bp 08:52 Patient has correct armband on for positive identification. Bed in low position. Call bp light in reach. Side rails up X2. Adult w/ patient. 08:59 Lindsey Borges [facility]-C [facility]. snw 08:59 Arsen Lewis MD is Attending Physician. snw 09:07 Triage completed. iw 11:15 No provider procedures requiring assistance completed. Patient did not have IV access bp during this emergency room visit. Administered Medications: 09:15 Drug: Ativan 1 mg Route: PO; bp 11:13 Follow up: Response: Anxiety unchanged bp 11:00 Drug: Zithromax 500 mg Route: PO; bp 11:14 Follow up: Response: No adverse reaction bp Outcome: 10:25 Discharge ordered by MD. snw 11:16 Discharged to home via wheelchair, with family. bp 11:16 Condition: stable 11:16 Discharge instructions given to patient, family, Instructed on discharge instructions, follow up and referral plans. medication usage, Demonstrated understanding of instructions, follow-up care, medications, Prescriptions given X 3. 11:17 Patient left the ED. bp Addendum: 03/14/2020 12:32 Addendum: COVID-19 Result: Negative result given to RN to notify pt. Contacted by: Mary Lopez. Notified pt of negative COVID 19 swab results. Pt advised that even with a negative test result they should remain in isolation until symptom free for 3 days without medication. Pt also advised to return to the ED for worsening symptoms. Signatures: Pricila Lopez RN RN Lindsey Borges FNP-C FNP-Carola Renita Olguin as Mya Toth RN RN Trey Peñaloza RN RN bp
--- NOTE | 2020-03-11 10:26 | EDPHYS ---
Physician Documentation [facility] Name: Haley Porter Age: 64 yrs Sex: Female : 1955 Arrival Date: 03/11/2020 Time: 08:41 Bed 7 Private MD: ED Physician Arsen Lewis HPI: 03/11 09:11 This 64 yrs old Female presents to ER via Ambulatory with complaints of Sore snw Throat, Dizziness, Anxiety, Shortness Of Breath. 09:11 The patient presents with sore throat. The patient describes throat pain as constant. snw Onset: The symptoms/episode began/occurred suddenly, 1 day(s) ago. Severity of symptoms: At their worst the symptoms were moderate. Associated signs and symptoms: Pertinent positives: Sore throat. The patient has experienced similar episodes in the past. It is unknown whether or not the patient has recently seen a physician, sees Dr. Alonzo. Historical: - Allergies: 09: Morphine; iw 09: Oral steroids; iw 09: Valium; iw 09: Versed; iw - Home Meds: 09:09 clorazepate dipotassium 7.5 mg Oral tab 1 tab daily [Active]; Eliquis 5 mg Oral tab 2 iw times per day [Active]; Eliquis Oral instructed to take 10 mg BID for 1 week, then decrease to 5 mg [Active]; furosemide 40 mg Oral tab 1 tab once daily [Active]; Linzess 290 mcg Oral cap 2 cap as needed [Active]; Lyrica 100 mg Oral cap 1 cap four times a day [Active]; omeprazole 20 mg Oral TbEC daily [Active]; oxycodone-acetaminophen 10-325 mg Oral tab 1 tab every 6 hours [Active]; potassium chloride 20 mEq Oral TbTQ 1 tab once daily [Active]; quinapril 20 mg Oral tab 1 tab once daily [Active]; - PMHx: 09:09 Anxiety; Hypertension; Pancreatitis; pulmonary emboli; TMJ; iw - Immunization history:: Adult Immunizations not up to date. - Social history:: Smoking status: Patient denies any tobacco usage or history of. ROS: 09:10 Constitutional: Negative for fever, chills, and weight loss, Eyes: Negative for injury, snw pain, redness, and discharge, ENT: Negative for injury and discharge, +pain Neck: Negative for injury, pain, and swelling, Cardiovascular: Negative for chest pain, palpitations, and edema, Respiratory: Negative for shortness of breath, cough, wheezing, and pleuritic chest pain, Abdomen/GI: Negative for abdominal pain, nausea, vomiting, diarrhea, and constipation, Back: Negative for injury and pain, : Negative for injury, bleeding, discharge, and swelling, MS/Extremity: Negative for injury and deformity, Skin: Negative for injury, rash, and discoloration, Neuro: Negative for headache, weakness, numbness, tingling, and seizure, Psych: Negative for depression, anxiety, suicide ideation, homicidal ideation, and hallucinations. Exam: 09:09 Head/Face: Normocephalic, atraumatic. Eyes: Pupils equal round and reactive to light, snw extra-ocular motions intact. Lids and lashes normal. Conjunctiva and sclera are non-icteric and not injected. Cornea within normal limits. Periorbital areas with no swelling, redness, or edema. Neck: Trachea midline, no thyromegaly or masses palpated, and no cervical lymphadenopathy. Supple, full range of motion without nuchal rigidity, or vertebral point tenderness. No Meningismus. Chest/axilla: Normal chest wall appearance and motion. Nontender with no deformity. No lesions are appreciated. Cardiovascular: Regular rate and rhythm with a normal S1 and S2. No gallops, murmurs, or rubs. Normal PMI, no JVD. No pulse deficits. Respiratory: Lungs have equal breath sounds bilaterally, clear to auscultation and percussion. No rales, rhonchi or wheezes noted. No increased work of breathing, no retractions or nasal flaring. Hyperventilating Abdomen/GI: Soft, non-tender, with normal bowel sounds. No distension or tympany. No guarding or rebound. No evidence of tenderness throughout. Back: No spinal tenderness. No costovertebral tenderness. Full range of motion. Skin: Warm, dry with normal turgor. Normal color with no rashes, no lesions, and no evidence of cellulitis. MS/ Extremity: Pulses equal, no cyanosis. Neurovascular intact. Full, normal range of motion. Neuro: Awake and alert, GCS 15, oriented to person, place, time, and situation. Cranial nerves II-XII grossly intact. Motor strength 5/5 in all extremities. Sensory grossly intact. Cerebellar exam normal. Normal gait. Psych: Awake, alert, with orientation to person, place and time. Behavior, mood, and affect are within normal limits. 09:09 Constitutional: The patient appears alert, awake, anxious. 09:09 ENT: External ear(s): are unremarkable, Nose: is normal, Mouth: is normal, Posterior pharynx: erythema, that is mild. Vital Signs: 09:05 BP 133 / 84; Pulse 66; Resp 24 S; Temp 97.65; Pulse Ox 98% on R/A; Weight 78.93 kg; iw Height 5 ft. 6 in. (167.64 cm); Pain 8/10; 10:00 BP 118 / 61; Pulse 70; Resp 17; Pulse Ox 98% ; bp 11:15 BP 102 / 90; Pulse 68; Resp 18; Pulse Ox 98% ; bp 09:05 Body Mass Index 28.08 (78.93 kg, 167.64 cm) iw MDM: 09:04 Patient medically screened. snw 10:24 Data reviewed: vital signs, nurses notes. Data interpreted: Pulse oximetry: on room air snw is 98 %. Interpretation: normal. Counseling: I had a detailed discussion with the patient and/or guardian regarding: the historical points, exam findings, and any diagnostic results supporting the discharge/admit diagnosis, lab results, the need for outpatient follow up, to return to the emergency department if symptoms worsen or persist or if there are any questions or concerns that arise at home. Special discussion: Based on the history and exam findings, there is no indication for further emergent testing or inpatient evaluation. I discussed with the patient/guardian the need to see the primary care provider for further evaluation of the symptoms. 03/11 09:00 Order name: Strep snw 03/11 09:00 Order name: Flu; Complete Time: 10:20 snw 03/11 09:00 Order name: COVID-19 snw 03/11 09:01 Order name: Group A Streptococcus Rapid Sc; Complete Time: 10:20 EDMS 03/11 10:21 Order name: Throat Culture EDMS Administered Medications: 09:15 Drug: Ativan 1 mg Route: PO; bp 11:13 Follow up: Response: Anxiety unchanged bp 11:00 Drug: Zithromax 500 mg Route: PO; bp 11:14 Follow up: Response: No adverse reaction bp Disposition: 14:42 Co-signature as Attending Physician, Arsen Lewis MD I agree with the assessment and kdr plan of care. Disposition: 03/11/20 10:25 Discharged to Home. Impression: Viral infection, unspecified. - Condition is Stable. - Discharge Instructions: Viral Respiratory Infection. - Prescriptions for orphenadrine citrate 100 mg Oral Tablet Sustained Release - take 1 tablet by ORAL route 2 times per day As needed; 20 tablet. promethazine 25 mg Oral Tablet - take 1 tablet by ORAL route every 6 hours As needed; 20 tablet. Zithromax 500 mg Oral Tablet - take 1 tablet by ORAL route once daily for 5 days; 5 tablet. - Work release form, Medication Reconciliation Form, Thank You Letter, Antibiotic Education, Prescription Opioid Use form. - Follow up: Emergency Department; When: As needed; Reason: Worsening of condition. Follow up: Private Physician; When: 2 - 3 days; Reason: Recheck today's complaints, Continuance of care, Re-evaluation by your physician. Signatures: Dispatcher [employer] EDVT Arsen Lewis MD MD kdr Waters, Shelly, TRANSMISSION AND COORDINATION ENGINEER-C TRANSMISSION AND COORDINATION ENGINEER-Csnw Mya Toth, TRAV RN iw Trey Peñaloza RN RN bp Corrections: (The following items were deleted from the chart) 11:17 10:25 03/11/2020 10:25 Discharged to Home. Impression: Viral infection, unspecified. bp Condition is Stable. Forms are Medication Reconciliation Form, Thank You Letter, Antibiotic Education, Prescription Opioid Use. Follow up: Emergency Department; When: As needed; Reason: Worsening of condition. Follow up: Private Physician; When: 2 - 3 days; Reason: Recheck today's complaints, Continuance of care, Re-evaluation by your physician. snw
[2020-03-11] MEDS ORDERED: AZITHROMYCIN 250 MG TAB ONE (10:54)
== END 2020-03-11 11:17 | disposition home or self-care (01) ==
LOC: ER 08:39
DX: B34.9 Viral infection, unspecified (principal); Z20.828 Contact with and (suspected) exposure to other viral communicable diseases; I10 Essential (primary) hypertension; F41.9 Anxiety disorder, unspecified; Z86.711 Personal history of pulmonary embolism; Z79.01 Long term (current) use of anticoagulants; Z88.5 Allergy status to narcotic agent; Z88.8 Allergy status to other drugs, medicaments and biological substances
CPT/HCPCS: 87070; 87081; 87804 ×2; 99283; U0002

== ENCOUNTER 2020-04-29 06:25 | Emergency (ER) | payer OTHER ==
--- OUTSIDE RECORDS SUMMARY | 2020-04-29 06:29 | XMS REPORT | Clinical Summary ---
:1955 Author Organization [facility] Address [address] [place] [address] Care Team Providers Name Role Phone Nayla Alonzo MD Primary Care Provider Allergies Not on File Medications Not on file Active Problems Not on file Encounters Date Type Specialty Care Team Description 10/30/2019 Telephone Critical Care Medicine Jan Fountain MD 10/30/2019 Hospital Encounter after 04/29/2019 Social History Tobacco Use Types Packs/Day Years Used Date Never Assessed Sex Assigned at Date Recorded Not on file Last Filed Vital Signs Not on file Plan of Treatment Not on file Results Not on fileafter 04/29/2019 Insurance Payer Benefit Plan / Subscriber ID Effective Dates Phone Addre ss Type Group CIGNA - MGD CIGNA [id number] 2012-Present HMO/POS CARE HMO/POS/OPEN ACCESS [phone] (Work)
--- OUTSIDE RECORDS SUMMARY | 2020-04-29 06:29 | XMS REPORT | Clinical Summary ---
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 Hospital Encounter Radiology Triston Noel Thoracic [...] Lumbar stenosis with neurogenic claudication (Primary Dx); [employer] Radiculopathy o f thoracic region 08/22/2019 Orders Only Neurosurgery Wanda Cotter, Thoracic radicu lopathy (Primary Dx); [employer] Spinal stenosis of lumbar region, unspecified whether [...] 08/07/2019 Travel 08/02/2019 Abstract Neurosurgery Wanda Cotter, [employer] 07/27/2019 Travel 07/04/2019 Office Visit Cardiology Ibis Torres Essential hyper tension (Primary Dx); MD Danitza Claudication (H CC) 07/04/2019 Orders Only Triston Brown Lumbar radiculo tr MD Chel (Primary Dx) 06/06/2019 Lab Lab Ibis Torres PAD (peripheral R., MD artery disease) (HCC) 06/06/2019 Office Visit Cardiology Ibis Torres PAD (peripheral artery disease) (HCC) (Primary Dx); MD Danitza Bilateral carot id artery stenosis after 04/29/2019 Surgical History Surgery Date Site/Laterality Comments HYSTERECTOMY [...] L3-S1; Surgeon: Triston Noel MD; Loc ation: [facility]; Servic e: Neurosurgery; L aterality: Posterior; Medical [...] Health Maintenance Due Date Last Done Comments COVID-19 VACCINE (#1) 1969 BREAST CANCER SCREENING 12/10/2003 COLONOSCOPY SCREENING 12/10/2003 SHINGLES VACCINES (#1) 12/10/2003 65+ PNEUMOCOCCAL VACCINE (1 of 1 - PPSV23) 2018 INFLUENZA VACCINE 12/02/2019 Implants Implanted Type Area National Sales Director Device Shelf Model / Identifier Expiration Serial / Date Lot System Spine Selnt For Dural Selng Exact 5ml Duraseal - [id number] Cardiovascular N/A: [employer] 11/30/2020 [id number] / Implanted: Qty: 1 on 09/19/2019 by Triston Noel MD at [facility] Implants N/A [employer] / NEURO [id number] Procedures Procedure Name Priority Date/Time Associated Diagnosis [...] procedure are i n the results section. [place] AN ELECTIVE Routine 09/19/2019 3:51 Results f [...] neurogenic claudication Case Notes EXTENDED RECOVERY NEEDED, ID CROSCOPE, KARISHMA FRAME Special Needs EXTENDED RECOVERY NEEDED, ID CROSCOPE, KARISHMA FRAME SURGICAL PATHOLOGY Routine 09/19/2019 [...] (peripheral Res ults for this BILATERAL AM GUN EXAMINER artery disease) ([facility]) proced ure are in the results section. CT ANGIOGRAM Routine 06/06/2019 5:02 PAD (peripheral Results for this ABDOMINAL AORTA AND PM GUN EXAMINER artery disease) ([facility]) procedure are in BILATERAL ILIOFEMORAL the re sults RUNOFF W WO CONTRAST section . ESTIMATED GFR Routine 06/06/2019 3:21 Results fo r this PM GUN EXAMINER procedure are i n the results section. POC CREATININE Routine 06/06/2019 3:21 Results f or this PM GUN EXAMINER procedure are i n the results section. COPY RECEIVED FROM: Routine 06/06/2019 11:02 Resu lts for this AM GUN EXAMINER procedure are i n the results section. COPY(IES) SENT TO: Routine 06/06/2019 11:02 Resul ts for this AM GUN EXAMINER procedure are i n the results section. BASIC METABOLIC PANEL Routine 06/06/2019 11:02 PAD (peripheral Results for this AM GUN EXAMINER artery disease) (HCC) proced ure are in the results section. ECG 12-LEAD Routine 06/06/2019 9:55 Bilateral carotid Result s for this AM GUN EXAMINER artery stenosis procedure ar e in the results section. after 04/29/2019 Results Urine culture (09/20/2019 7:30 PM CDT) Pathologist Sig nature Urine culture SEE COMMENTComment: [facility] Bacteriuria screen HOSPITAL negative. Specimen Performing Organization Address City/State/ZIP Code Phon e Number [facility] DEPARTMENT OF PATHOLOGY AND [address] [place], [place] [address] GENOMIC MEDICINE [facility] [address] [place] [address] CT Cervical Spine Wo Contrast (09/20/2019 6:46 [...] acute fractures of the cervical spine . [facility] Procedure Note Interface, Radiology Results Incoming [...] acute fractures of the cervical spine . [facility] Performing Organization Address City/State/ZIP Code Phon e Number [facility] [address] [place] [address] CT Head Wo Contrast (09/20/2019 6:45 PM [...] IMPRESSION: No acute intracranial abnormality identi fied. [id number] Procedure Note Hm Interface, Radiology Results Incoming [...] IMPRESSION: No acute intracranial abnormality identi fied. [id number] Performing Organization Address City/[facility]/ZIP Code Phon e Number [facility] [address] [place] [address] CT Lumbar Spine Wo Contrast (09/20/2019 6:43 [...] spondylotic foraminal narrowing a t L5-S1 bilaterally. [facility] Procedure Note Hm Interface, Radiology Results Incoming [...] spondylotic foraminal narrowing a t L5-S1 bilaterally. [facility] Performing Organization Address City/State/ZIP Code Phon e Number [facility] [address] [place] [address] CBC with platelet and differential (09/20/2019 5:36 PM CDT)Only the most recent of2 resultswithin the time period is included. WBC 13.52 (H) 4.50 - 11.00 [facility] k/uL [facility] RBC 4.10 (L) 4.20 - 5.50 [facility] HGB 12.9 12.0 - 16.0 [facility] g/dL [facility] HCT 39.3 37.0 - 47.0 % [facility] MCV 95.9 82.0 - 100.0 [facility] MCH 31.5 27.0 - 34.0 pg [facility] MCHC 32.8 31.0 - 37.0 [facility] g/dL [facility] RDW - SD 42.5 37.0 - 55.0 fL [facility] MPV 10.4 8.8 - 13.2 fL [facility] Platelet count 229 150 - 400 k/uL [facility] Nucleated RBC 0.00 /100 WBC [facility] Neutrophils 78.5 (H) 39.0 - 69.0 % [facility] Lymphocytes 11.5 (L) 25.0 - 45.0 % [facility] Monocytes 9.4 0.0 - 10.0 % [facility] Eosinophils 0.0 0.0 - 5.0 % [facility] Basophils 0.2 0.0 - 1.0 % [facility] Immature granulocytes 0.4Comment: 0.0 - 1.0 % [facility] "Immature [facility] granulocytes" (promyelocytes , myelocytes, metamyelocytes ) Specimen Blood Performing Organization Address City/[facility] Phon e Number [facility] DEPARTMENT OF PATHOLOGY AND [address] [place] [address] [phone] [address] Ammonia level (09/20/2019 5:36 PM CDT) Pathologist [facility] nature Ammonia 19 11 - 51 umol/L [facility] Specimen Blood Performing Organization Address City/[facility] Phon e Number [facility] DEPARTMENT OF PATHOLOGY AND [address] [place] [address] [phone] [address] Urinalysis screen and microscopy, with reflex to culture (09/20/2019 5:30 PM CDT) Specimen site Clean catch [facility] Color, UA Straw [facility] Appearance, UA Clear [facility] Specific gravity, UA 1.003 1.001 - 1.035 [facility] pH, UA 7.0 5.0 - 8.5 [facility] Protein, UA Negative Negative [facility] Glucose, UA Negative Negative [facility] Ketones, UA Negative Negative [facility] Bilirubin, UA Negative Negative [facility] Blood, UA Negative Negative [facility] Nitrite, UA Negative Negative [facility] Urobilinogen, UA <2.0 <2.0 [facility] Leukocyte esterase, Negative Negative [facility] Epithelial cells, UA 5 /HPF [facility] WBC, UA 1 0 - 4 /HPF [facility] RBC, UA 1 0 - 5 /HPF [facility] Bacteria, UA Few None seen [facility] Yeast, UA None seen [facility] Yeast with None seen [facility] pseudohyphae, UA HOSPITAL Specimen Urine Performing Organization Address City/[facility] Phon e Number [facility] DEPARTMENT OF PATHOLOGY AND [address] [place] [address] [phone] [address] Urine drugs of abuse screen (09/20/2019 5:30 PM CDT) Amphetamine screen, Negative [place] urine [facility] Barbiturate screen, Negative [place] urine [facility] Benzodiazepine Negative [place] screen, urine [facility] Cocaine screen, urine Negative [facility] Methadone metabolite Negative [place] (EDDP), urine [facility] Opiates screen, urine Negative [facility] Oxycodone screen, Positive (A) [place] urine [facility] Phencyclidine screen, Negative [place] urine [facility] Tricyclic screen, Negative [place] urine [facility] Cannabinoid screen, Negative [place] urine Comment: [facility]ST[facility]I Drug screen minimum concentration of detectability [facility] Amphetamines 1000 ng/mL Barbiturates 200 ng/mL Benzodiazepines [...] requir ed. Specimen Urine Performing Organization Address [facility] Phon e Number [facility] DEPARTMENT OF PATHOLOGY AND [address] [place], [place] [address] [address] [address] Estimated GFR (09/20/2019 5:20 PM CDT)Only the most recent of3 resultswithin the time period is included. Estimated GFR 82 mL/min/1.73 [facility] Comment: m2 HOSPITAL Catergory Units Interpretation G1 [...] published in 2014. Specimen Performing Organization Address [facility] Phon e Number [facility] DEPARTMENT OF PATHOLOGY AND [address], [place] [address] [address] Troponin (09/20/2019 5:20 PM CDT) Troponin 0.013 0.000 - 0.040 [facility] Comment: ng/mL HOSPITAL In patients suspected of [...] 0.020 ng/mL Specimen Blood Performing Organization Address City/[facility] Code Phon e Number [facility] DEPARTMENT OF PATHOLOGY AND [address], [place] [address] [facility] [address] [place] [address] Partial thromboplastin time, activated (09/20/2019 5:20 PM CDT) PTT 24.7 23.0 - 36.0 [facility] Comment: [facility] HOSPITAL PTT therapeutic range for unfractionated heparin is 61.0-112.0 seconds which corresponds to Anti-Xa 0.3-0.7 U/ml. Specimen Blood Performing Organization Address City/[facility]/ZIP Code Phon e Number [facility] DEPARTMENT OF PATHOLOGY AND [address] [place] [address] [place] [address] Prothrombin time with INR (09/20/2019 5:20 PM CDT) Prothrombin time 13.3 11.5 - 14.5 [facility] INR 1.0 [place] Comment: [facility] International Normalized Ratio (INR) is a [facility] monitoring tool for patients who are stable on oral anticoagulant therapy. An INR of 2.0-3.0 is suggested for deep vein thrombosis/pulmonary embolism. Specimen Blood Performing Organization Address [facility] Phon e Number [facility] DEPARTMENT OF PATHOLOGY AND [address] [place] [address] [phone] [address] Phosphorus level (09/20/2019 5:20 PM CDT) Pathologist Sig nature Phosphorus 2.6 2.4 - 4.5 mg/dL [facility] Specimen Blood Performing Organization Address City/[facility]/ZIP [facility] Phon e Number [facility] DEPARTMENT OF PATHOLOGY AND [address] [place] [address] [phone] [address] Magnesium level (09/20/2019 5:20 PM CDT) Pathologist Sig nature Magnesium 1.8 1.6 - 2.4 mg/dL [facility] Specimen Blood Performing Organization Address City/[facility]/ZIP [facility] Phon e Number [facility] DEPARTMENT OF PATHOLOGY AND [address] [place] [address] [phone] [address] Ionized calcium (09/20/2019 5:20 PM CDT) Pathologist Sig nature pH 7.52 [facility] Ionized calcium 1.13 1.11 - 1.32 mmol/L [facility] Specimen Blood Performing Organization Address City/[facility]/ZIP [facility] Phon e Number [facility] DEPARTMENT OF PATHOLOGY AND [address] [place] [address] [phone] [place] [address] Basic metabolic panel (09/20/2019 5:20 PM CDT)Only the most recent of2 results within the time period is included. Pathologist Sig nature Sodium 145 135 - 148 mEq/L [facility] Potassium 3.5 3.5 - 5.0 mEq/L [facility] Chloride 105 98 - 112 mEq/L [facility] CO2 23 (L) 24 - 31 mEq/L [facility] Anion gap 17@ANIO (H) 7 - 15 mEq/L [facility] BUN 9 8 - 23 mg/dL [facility] Creatinine 0.76 0.50 - 0.90 mg/dL [facility] Glucose 142 (H) 65 - 99 mg/dL [facility] Calcium 9.5 8.8 - 10.2 mg/dL [facility] Specimen Blood Performing Organization Address [facility] Phon e Number [facility] DEPARTMENT OF PATHOLOGY AND [address] [place] [phone] GENOMIC MEDICINE [address] [address] ECG 12 lead (09/20/2019 4:27 PM CDT)Only the most recent of2 resultswithin the time period is included. Pathologist Sig nature Ventricular rate 88 [facility] Atrial rate 88 [facility] [place] interval 164 [facility] QRSD interval 90 [facility] QT interval 356 [facility] QTC interval 430 [facility] P axis 1 58 [facility] QRS axis 1 64 [facility] T wave axis 59 [facility] EKG impression Normal sinus [facility] MUSE rhythm-Normal ECG-In automated comparison with ECG of 06-JUN-2019 09:55,-No significant change was found- Specimen Narrative Performed At This result has an attachment that is no t available. Performing Organization Address [facility] Phon e Number [address] [address] POC glucose (09/20/2019 4:25 PM CDT) Pathologist Sig nature POC glucose 133 (H) 65 - 99 mg/dL [facility] Comment: HOSPITAL Grader Meat Name: Zion Crump Device ID: [id number] Chartable: [facility] Notified RN Specimen Blood Performing Organization Address City/State/ZIP Code Phon e Number [facility] DEPARTMENT OF PATHOLOGY AND [address], [place] [address] GENOMIC MEDICINE [facility] [address] [place] [address] Airway (09/19/2019 3:59 PM CDT) Narrative Performed [...] aspect of the L4 spin ous process. [id number] Procedure Note Hm Interface, Radiology Results Incoming [...] inferior aspect of the L4 spinous process. [id number] Performing Organization Address City/[facility] Phon e Number [facility] [address] [place] [address] Surgical pathology request (09/19/2019 8:26 AM CDT) [facility] DEPARTMENT OF PATHOLOGY AND GENOMIC MEDICINE Surgical pathology See link below [facility] DEPARTMENT OF report for PDF Lab PATHOLOGY AND Report GENOMIC MEDICINE Result status This is Final [facility] DEPARTMENT OF Report for PATHOLOGY AND [id number] GENOMIC MEDICINE Specimen Performing Organization Address City/[facility] Phon e Number [facility] DEPARTMENT OF PATHOLOGY AND [address], [place] [address] [facility] BioRef (NCOVB) (09/11/2019 12:19 PM CDT) [facility] Not Detected Not Detected [facility] (NCOVB) Comment: Source Nasopharyngeal Swab Testing performed at [address] [address] NOTE: Please consider re-collection of a new specimen, if clinically indicated. NOTE: The COVID-19 assay has been cleared by the U.S. Food and Drug Administration under the Emergency Use Authorization ( EUA). [facility] is designated as a high complexity labora [...] under the Emergency Use Authorization ( EUA). [facility] is designated as a high complexity labora tory by the Clinical Laboratory Improvement Amendments of 1988(CLIA) and is qualified to perform this test. ASSAY INFORMATION: Real Time RT-PCR (Reported 2019 12:29) Specimen Nasopharyngeal Performing Organization Address City/State/ZIP Code Phon e Number [facility] DEPARTMENT OF PATHOLOGY [address] [place] [address] AND [employer] [facility] [address] [place] [address] [place] [address] Comprehensive metabolic panel (09/11/2019 12:11 PM CDT) [facility] Sodium 142 135 - 148 [facility] mEq/L [facility] Potassium 4.0 3.5 - 5.0 [facility] mEq/L [facility] Chloride 100 98 - 112 [facility] mEq/L HOSPITAL CO2 26 24 - 31 mEq/L [facility] Anion gap 16@ANIO (H) 7 - 15 mEq/L [facility] BUN 26 (H) 8 - 23 mg/dL [facility] Creatinine 0.90 0.50 - 0.90 [facility] mg/dL HOSPITAL Glucose 111 (H) 65 - 99 mg/dL [facility] Calcium 10.5 (H) 8.8 - 10.2 [facility] mg/dL HOSPITAL Protein 7.6 6.3 - 8.3 [facility] Comment: g/dL [facility] [place] 4.6-7.0 g/dL 1 week 4.4-7.6 g/dL 7 months-1year 5.1-7.3 g/dL 1-2 years 5.6-7.5 g/dL >3 years 6.0-8.0 g/dL 18-150 6.3-8.3 g/dL Albumin 4.0 3.5 - 5.0 [facility] g/dL [facility] A/G ratio 1.1 0.7 - 3.8 [facility] Alkaline phosphatase 82 35 - 104 U/L [facility] AST 20 10 - 35 U/L [facility] ALT 17 5 - 50 U/L [facility] Total bilirubin 0.3 0.0 - 1.2 [facility] mg/dL HOSPITAL Specimen Blood Performing Organization Address City/State/ZIP Code Phon e Number [facility] DEPARTMENT OF PATHOLOGY AND [address] [place], [place] [address] GENOMIC MEDICINE [facility] [address] [place] [address] CT Post Myelogram Thoracic (09/06/2019 12:33 PM [...] correlation for right C6 radiculopathy is recommended. [id number] Procedure Note Hm Interface, Radiology Results Incoming [...] correlation for right C6 radiculopathy is recommended. [id number] Performing Organization Address City/State/ZIP Code Phon e Number [facility] [address] [place] [address] CT Post Myelogram Lumbar (09/06/2019 12:32 PM CDT) Specimen Addenda Addendum by Ally eLong MD on 2019 5:14 PM ADDENDUM #1 [...] ingement on the right L3 nerve root. [id number] Procedure Note [facility], Radiology Results Incoming - 09/06/2019 12:43 PM [...] impingement on the right L3 nerve root. [id number] Performing Organization Address City/State/ZIP Code Phon e Number [facility] [address] [place] [address] IR Myelogram 2+Reg Incl Inj W S&I [...] of the left C6 root sleeve . [id number] Procedure Note Hm Interface, Radiology Results Incoming [...] of the left C6 root sleeve . [id number] Performing Organization Address City/State/ZIP Code Phon e Number [facility] [address] [place] [address] XR Lumbar Spine Complete W Flex and [...] IMPRESSION: Degenerative changes without acute abnor mality. [id number] Dictated and approved by radiology resid ent/fellow: [...] IMPRESSION: Degenerative changes without acute abnor mality. [facility]-[id number] Dictated and approved by radiology resid ent/fellow: Cari Thomson M.D. I, Marilyn Charles MD, personally review ed the images and resident's/fellow's findings and agree with the final report. Performing Organization Address City/State/ZIP Code Phon e Number [facility] [address] [place] [address] XR Spine Scoliosos 2-3 Views (08/14/2019 11:06 [...] crew fixation and interbody graft. [id number] Procedure Note Interface, Radiology Results Incoming - [...] screw fixation and interbody graft. [id number] Performing Organization Address City/State/ZIP Code Phon e Number [facility] [address] [place] [address] Us carotid duplex (06/13/2019 10:00 AM GUN EXAMINER) Specimen Narrative Performed At [facility] Carotid Tonya ry Ultrasound Report Pat.Name: LORETTAJELLYHALEY K Pat.ID: [id number]Date: 06/13/2019 Refer.MD: IBIS TORRES MD Exam Time: 9:13:00 AM Study Type:C arotid Age: 8 1955,63Y Sex: FEMALE Sonogrphr: Cyn Montoya RVT Pat. Stat.:Outp atient Room: [facility] ol: SD, CPT - 4: 82221 Echo Shira nt ID:[id number] Order ID: [id number] Reason for Study:Carotid artery disease, Hx of [...] Radiology Results In - 2019 6:01 AM GUN EXAMINER [facility] Carotid Artery Ultras ound Report Pat.Name: HALEY PORTER Pat.I D: [id number] St.Date: 06/13/2019 Refer .MD: IBIS TORRES MD Exam Time: 9:13:00 AM Study Type:Carotid Age: 8 1955,63Y Sex: FEMALE Sonogrphr: Cyn Montoya RVT Pat. Stat.:Outpatient Room: [facility] Vol: SD, CPT - 4: 73183 Echo Event ID:[id number] Order ID: [id number] Reason for Study:Carotid artery disease, Hx of [...] 0.656 Left ICA/CCA Ratio ICA/CCA PSV 0.837 [facility] 06/14/2019 06:00 AM Ibis Torres MD Performing Organization Address City/State/ZIP Code Phon e Number [facility] [address] [place] [address] CTA Abdominal Aorta And Bilateral Iliofemoral Runoff W Wo Contrast (06/06/2019 5:02 PM GUN EXAMINER) Specimen Narrative Performed At EXAMINATION: CT ANGIOGRAM [...] runoff of the bilate ral lower extremities. [id number] Procedure Note Hm Interface, Radiology Results Incoming - 06/06/2019 5:24 PM GUN EXAMINER EXAMINATION: CT ANGIOGRAM ABDOMINAL AORTA AND BILATERAL [...] runoff of the bilate ral lower extremities. [facility]-[id number] Performing Organization Address City/State/ZIP Code Phon e Number [facility] [address] [place] [address] POC creatinine (06/06/2019 3:21 PM GUN EXAMINER) POC creatinine 0.8 0.5 - 0.9 GILLIAM RASTAFARI Comment: mg/dl HOSPITAL Meter ID: [id number] Grader Meat ID: Bayron Valencia Specimen Blood - Antecubital, left Performing Organization Address City/[facility]/ZIP Code Phon e Number [facility] DEPARTMENT OF PATHOLOGY AND [address] [place], [place] [address] GENOMIC MEDICINE [facility] [address] [place] [address] COPY RECEIVED FROM: (06/06/2019 11:02 AM GUN EXAMINER) Pathologist Sig nature Copy received from: [facility] Comment: [address] [place] [address] Specimen Performing Organization Address City/State/ZIP Code Phon e Number [facility] COPY(IES) SENT TO: (06/06/2019 11:02 AM GUN EXAMINER) Pathologist Sig nature Copies/mL [facility] Comment: [address] [facility] [address] [place] [address] Specimen Performing Organization Address City/[facility]/ZIP Code Phon e Number [facility] after 04/29/2019 Insurance Payer Benefit Plan / Subscriber ID Effective Phone Address T ype Group Dates MEDICARE MEDICARE PART A [id number] 2018-Pres [place], [place] Medicare AND B ent COMMERCIAL MISC MISC COMMERCIAL [id number] 2009-Pres Commercial ent Guarantor Name Account Type Relation to Date of Phone Billing Patient Address Haley Porter Personal/Family Self 1955 [address] [place] (Home) [place], [place] [phone] (Work) Advance Directives For more information, please contact: [phone] Type Date Recorded 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
--- OUTSIDE RECORDS SUMMARY | 2020-04-29 06:33 | XMS REPORT | Continuity of Care Document ---
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 [address] [place] [address] Unspecified 05/09/2017 abdominal pain 018 Radha and ABDOMINAL PAIN/LOSS Active [facility] 018 [place] SURGERY THIS Active [facility] MORNING, PROBLEMS 013 Oh dical BREATHING Center POST FOLLOW UP Active [address] BDDC-WEIGHT LOSS Active [address] 783.21 - ABNORMAL Active OPID LOSS O 576.0 - 013 Radha and POSTCHO ABD PAIN Active [address] Acid reflux Resolved Problem 01/25/2013 [facility] HTN - Hypertension Resolved Problem 01/25/2013 [facility] Gastroesophageal Resolved Problem 11/02/2019 [place] reflux disease Neuro , (disorder) [facility] Cervical Active Problem 11/02/2019 [place] spondylosis Neuro, (disorder) [facility] 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 Fabian Barrera [place] Ulcer of lower Active Problem 11/02/2019 [facility] her extremity Neuro, (disorder) [facility] ABDMNAL PAIN UNSPCF Active [facility] Medications Medication Details Route Status Patient Ordering Order Source Instructions Provider Date remove patch Notes: Remove No Longer [place] patch 12 hours Active 2019 Medical after Center application each day. edwina, PRISON Notes: (Same Inactive [place] as: [place]) [address] [place] [address] Center tramadol Notes: Not to Inactive [place] hydrochloride exceed 2020 Medical 50 MG Oral 400mg/day. Center Tablet (Same As: Ultram) Lidocaine 1 patch, TOP, Active [place] Hydrochloride Daily, Remove 2020 Medi ion 0.05 MG/MG after 12 hours, Cente r Transdermal # 30 patch, 0 Patch Refill(s), [Lidoderm] [id number] 167.64, cm, 10/31/19 2:23:00 CDT, Height, [...] MG Oral Tablet POLYETHYLENE Notes: Dissolve Inactive [facility] GLYCOL 3350 in 8 oz of [address] [place] [address] water or juice. Center (Same as: Miralax) Aspirin 81 MG Notes: Do not Inactive [facility] Enteric Coated crush or chew. [facility] Me dical Tablet (Same As: Center Ecotrin) Prilosec 20 mg, Route: Inactive [place] PO, Daily, [facility] Medical Dosing Weight Center 83.636, kg, Start date: 10/31/19 9:00:00 CDT, Duration: 30 day, Stop date: 11/29/19 9:00:00 CDT pregabalin Notes: (Same Inactive [place] as: Lyrica) [address] [place] [address] quinapril 20 mg, 1 tab, Inactive [place] Route: PO, Drug [facility] Medical form: TAB, Center Daily, Dosing Weight 83.636, kg, Start date: 10/31/19 9:00:00 CDT, Duration: 30 day, Stop date: 11/29/19 9:00:00 CDT Protonix Notes: Tablet Inactive [facility] should not be [address] [place] [address] chewed or [place] crushed. (Same as: Protonix) Acetaminophen Notes: (Same Inactive [place] 325 MG / as: [place] [address] [place] [address] Hydrocodone 325/5) Do not Cente r Bitartrate 5 MG exceed 4gm/day Oral Tablet of [[place] 5/325] acetaminophen. Hydromorphone Notes: Same as Inactive [facility] Dilaudid [address] [place] [address] Heparin 80 Route: IVP, Inactive [facility] unit/kg Bolus PRN, 5,400 2019 [facility] (Heparin Dosing unit, 5.4 mL, Ce nter Weight) Drug form: INJ, PRN, Heparin Protocol, Start date: 10/31/19 2:25:00 CDT Stop date: 11/30/19 2:24:00 CDT, 30 day, 0 Heparin 40 Route: IVP, Inactive [place] unit/kg Bolus PRN, 2,[address] [place] [address] (Heparin Dosing unit, 2.7 mL, Ce nter Weight) Drug form: INJ, PRN, Heparin Protocol, Start date: 10/31/19 2:25:00 CDT Stop date: 11/30/19 2:24:00 CDT, 30 day, 0 heparin Notes: Total Inactive [facility] additive 25,000 Concentration = 2019 Medical unit [18 50 unit/ ml Center unit/kg/hr] + Total volume = Premix Diluent 500 ml Send [facility] Sodium Chloride Request 2 hours 0.45% 500 mL prior to next bag Acetaminophen Notes: Do not Inactive [facility] 325 MG / exceed 4gm/day 2019 Medical Hydrocodone of [place] Bitartrate 10 acetaminophen. MG Oral Tablet (Same as: [place] 325/10) clorazepate Notes: (Same Inactive [place] As: Tranxene-T) [address] [place] [address] tizanidine Notes: (Same [place]active [place] As: Zanaflex) [address] [place] [address] pregabalin 100 100 mg = 1 cap, Active [place] mg oral capsule PO, QID, # 90 2019 Oh dical cap, 0 Center Refill(s) tizanidine 4 mg 4 mg = 1 tab, Inactive [facility] oral tablet PO, Q8H, PRN 2019 [facility] for muscle [place] spasms, # 90 tab, 0 Refill(s) clorazepate 7.5 7.5 mg = 1 tab, Inactive [facility] mg oral tablet PO, TID, PRN 2019 [facility] ion Anxiety, 0 Center Refill(s) linaclotide 145 microgram = Active [facility] exas 0.145 MG Oral 1 cap, PO, 2019 Medical Capsule Daily, 30 Center [Linzess] minutes prior to the first meal of the day, # 30 cap, 0 Refill(s) Dextrose 50% 12.5 gm, 25 mL, Inactive [facility] Syringe (D50W) Route: IVP, 2019 Medic al Drug Form: INJ, Center Dosing Weight 83.636, kg, PRN, PRN Blood Glucose Results, Start date: 10/31/19 2:06:00 CDT, Duration: 30 day, Stop date: 11/30/19 2:05:00 CDT, 0 Glucagon 1 mg, Route: Inactive [facility] IM, Drug form: [facility] Medical PDR/INJ, PRN, Center Dosing Weight 83.636, kg, PRN Blood Glucose Results, Start date: 10/31/19 2:06:00 CDT, Duration: 30 day, Stop date: 11/30/19 2:05:00 CDT, 0 Ondansetron Notes: (Same Inactive [place] as: Zofran) 2019 Medical MEDICATION Center WASTE Product Size: 4 mg Product Wasted: ___ mg Melatonin Notes: (Same Inactive [place] as: Melatonin) 2019 [facility] Aspirin 81 MG 81 mg = 1 tab, Active 05/05/ [place]enzie Enteric Coated PO, Daily, # 90 2019 N euro Tablet tab, 3 Refill(s) cefdinir 300 MG 300 mg = 1 cap, Active 05/05/ cher Oral Capsule PO, BID, # 20 2019 Neuro cap, 0 Refill(s) Estrogens, 0.3 mg = 1 tab, Active 12/22/ ch er Conjugated PO, Daily, # 30 2019 Neuro (PRISON) 0.3 MG tab, 0 Oral Tablet Refill(s) [...] MG / PRN Pain, X 4 2017 [place] Codeine day, # 12 tab, Phosphate 30 MG 0 Refill(s) Oral Tablet [Tylenol with Codeine #3] acetaminophen-c Notes: Do not Inactive 05/07/ M H odeine #3 exceed 4gm/day 2018 [place] of acetaminophen. (Same as: Tylenol with Codeine # 3) Ondansetron Notes: (Same Inactive as: Evita) 2017 [place] MEDICATION WASTE Product Size: 4 mg Product Wasted: ___ mg Sodium Chloride 1,000 mL, 1000 Inactive 0.9% (Bolus) IV ml/hr, Infuse 2017 [facility] Over: 1 hr, Route: IV, 1,000, Drug form: INJ, ONCE, Priority: STAT, Dosing Weight 61.364 kg, Start date: 05/06/17 12:46:00 NURSE TRANSPLANT, Stop date: 05/06/17 12:46:00 NURSE TRANSPLANT Saline Flush Notes: (Same Inactive 0.9% as: BD 2017 [place] Posiflush) hyoscyamine 0.125 mg, 1 PO No Longer [facility] Monster as tab, Route: PO, Active 2012 [...] 50 mg, 1 tab, PO No Longer [facility] H [place] oral tablet PO, Q8H, PRN, Active 2012 Medica l 10 tab, as Center needed for pain, Substitution Allowed, TAB [place] 10/325 1 tab, Route: PO No Longer [place] oral tablet PO, Drug Form: Active 2012 Medic al TAB, Dosing Center Weight 65, kg, Q6H, PRN Pain, Start date: 01/22/13 21:22:00, Duration: 30 day, Stop date: 02/21/13 21:21:00 Omnipaque 100 mL, Route: IVP No Longer [facility] [place] 350mg/ml IVP, Drug Form: Active 2012 Medical SOLN, Dosing Center Weight 65, kg, ONCALL, STAT, Start date: 01/22/13 13:12:00, Duration: 1 doses or times, Dose = 2.2ml/kg, Max dose = 100ml -- "To be infused by Radiology Staff ONLY"Dose = 2.2ml/kg, Max dose = 100ml -- "To be infused by Radiology Staff ONLY" Dilaudid 0.5 mg, 0.25 IV No Longer [facility] mL, Route: IV, 2012 Medical Drug form: INJ, Center Q4H, Dosing Weight 65, kg, PRN as needed for pain, Start date: 01/22/13 12:17:00, Duration: 30 day, Stop date: 02/21/13 12:16:00 [place] 10/325 1 tab, Route: PO No Longer [facility] oral tablet PO, Drug Form: 2012 Medic al TAB, Dosing Center Weight 65, kg, Q4H, PRN Pain, NOW, Start date: 01/22/13 2:14:00, Duration: 30 day, Stop date: 02/21/13 2:13:00 Remeron 15 mg, 1 tab, PO No Longer [facility] Route: PO, Drug Active 2012 Medical form: TAB, Center Bedtime, Dosing Weight 65, kg, Start date: 01/21/13 21:00:00, Duration: 30 day, Stop date: 02/19/13 21:00:00 hyoscyamine 0.125 mg, 1 PO No Longer [facility] Monster as tab, Route: PO, 2012 Medical Drug form: TAB, Center TID, Dosing Weight 65, kg, Start date: 01/21/13 17:00:00, Duration: 30 day, Stop date: 02/20/13 13:00:00 D5W 1/2NS 1,000 1,000 mL, Rate: IV No Longer [facility] mL 75 ml/hr, Active 2012 Medical Infuse over: Center 13.3 hr, Route: IV, Dosing Weight 65 kg, Total Volume: 1,000, Start date: 01/21/13 15:44:00, Duration: 30 day, Stop date: 02/20/13 15:43:00 Dilaudid 0.5 mg, 0.25 IV No Longer [facility] mL, Route: IV, Active 2012 Medical Drug form: INJ, Center ONCE, Dosing Weight 65, kg, Start date: 01/21/13 14:32:00, Stop date: 01/21/13 14:32:00 Dilaudid 0.5 mg, 0.25 IV No Longer [facility] mL, Route: IV, Active 2012 Medical Drug form: INJ, Center Q8H, Dosing Weight 65, kg, PRN as needed for pain, Start date: 01/21/13 9:39:00, Duration: 30 day, Stop date: 02/20/13 9:38:00 senna 8.6 mg 8.6 mg, 1 tab, PO No Longer [facility] oral tablet Route: PO, Drug Active 2012 [facility] ion Form: TAB, Center Dosing Weight 65, kg, BID, PRN as needed for constipation, Start date: 01/21/13 9:39:00, Duration: 30 day, Stop date: 02/20/13 9:38:00 MiraLax 17 gm, 1 pkt, PO No Longer [facility] Route: PO, Drug Active 2012 Medical form: PWDR, Center Daily, Dosing Weight 65, kg, PRN Constipation, Start date: 01/21/13 9:38:00, Duration: 30 day, Stop date: 02/20/13 9:37:00 tramadol 50 mg 50 mg, 1 tab, PO No Longer [facility] oral tablet Route: PO, Drug Active 2012 Medi ion form: TAB, Q8H, Center Dosing Weight 65, kg, PRN as needed for pain, Start date: 01/21/13 9:38:00, Duration: 30 day, Stop date: 02/20/13 9:37:00 Protonix 40 mg, 1 tab, PO No Longer [facility] Route: PO, Drug Active 2012 Medical form: ECTAB, Center Daily, Dosing Weight 65, kg, Start date: 01/21/13 9:00:00, Duration: 30 day, Stop date: 02/19/13 9:00:00 Dilaudid 0.5 mg, 0.25 [facility], [facility]: IV, Active 2012 Medical Drug form: INJ, Center ONCE, Dosing Weight 65, kg, PRN as needed for pain, Start date: 01/20/13 22:21:00 Zosyn 3.375 gm, IVPB No Longer [facility] Route: IVPB, Active 2012 Medical Drug form: Center PDR/INJ, [id number], Start date: 01/20/13 11:00:00, Stop date: 02/19/13 2:00:00 enoxaparin 40 mg, 0.4 mL, SUB-Q No Longer [place] Route: SUB-Q, Active 2012 Medical Drug form: INJ, Center [id number], Dosing Weight 65, kg, Start date: 01/20/13 6:00:00, Duration: 30 day, Stop date: 02/18/13 6:00:00 NS + KCL 1,000 mL, Rate: IV No Longer [place] 20mEq/L 1000ml 125 ml/hr, Active 2012 Medica l (Premix) 1,000 Infuse over: 8 Ce nter mL hr, Route: IV, Dosing Weight 65 kg, Total Volume: 1,000, Start date: 01/20/13 5:25:00, Duration: 30 day, Stop date: 02/19/13 5:24:00 Zosyn 3.375 gm, IVPB No Longer [place] [facility] Route: IVPB, Active 2012 Medical Drug form: INJ, Center Q6H, Dosing Weight 65, kg, Priority: STAT, Start date: 01/20/13 5:24:00, Duration: 30 day, Stop date: 02/19/13 0:00:00 Dilaudid 0.5 mg, 0.25 IV No Longer [facility] mL, Route: IV, Active 2012 Medical Drug form: INJ, Center Q4H, Dosing Weight 65, kg, PRN as needed for pain, Start date: 01/20/13 5:23:00, Duration: 30 day, Stop date: 02/19/13 5:22:00 docusate Substitution Active [place] Allowed 2012 [facility] Center ondansetron 4 mg, 2 mL, IVP No Longer [place] Route: IVP, Active 2012 Medical [...] Zosyn 3.375 gm, IVPB No Longer Sajja [place] Route: IVPB, Active 2012 Medical Drug form: [...] IV 1,000 mL, Rate: IV No Longer [facility] 1000 mL 1,000 ml/hr, Active 2012 Medical [...] Substitution Active [place] Allowed, 2012 [facility] clorazepate Substitution [place] Allowed 2012 [facility] Symax Duotab Substitution Active [place] as Allowed 2012 [facility] Prilosec Substitution Active [place] Allowed 2012 [facility] Premarin Substitution Active [place] Allowed 2012 [facility] Center Allergies, Adverse Reactions, Alerts Substance Category Reaction Severity Reaction Status Date Comments S ource type Reported diazepam<dove Assertion Drug Active Data [facility] p>1</sup> allergy 2 migrated Medic al from [facility] on 12/24/14. Originally documented as VALIUM. midazolam<s Assertion Drug Active Data [facility] up>2</sup> allergy 2 migrated Medi ion from [facility] on 12/24/14. Originally documented as VERSED. morphine<dove Assertion Drug Active Data [facility] p>3</sup> allergy 2 migrated Medic al from [facility] on 12/24/14. Originally documented as MORPHINE. Valium Assertion Drug Active [place] allergy Medical Center morphine drug Allergy Active [place] allergy Medical Center cortisone drug Allergy Active [place] as allergy Medical [place] Immunizations No Data Provided for This Section Results Order Name Results Value Reference Date Interpretation Comments [facility] [facility] HEMATOLOGY PT 14.3 12.0 - 10/30 [facility] 14.7 /2019 [facility] HEMATOLOGY INR 1.11 0.85 - 10/30 [facility] 1.17 [facility] HEMATOLOGY PTT 94.8 22.9 - 10/30 [facility] 35.8 /2019 [facility] HEMATOLOGY PT 14.4 12.0 - 10/30 [facility] 14.7 /2019 [facility] HEMATOLOGY INR 1.11 0.85 - 10/30 [facility] 1.17 [facility] HEMATOLOGY PTT 86.8 22.9 - 10/30 [facility] 35.8 /2019 [facility] BLOOD BANK ABO/Rh O POS 10/30 [facility] RESULTS /2019 [facility] BLOOD BANK Antibody Negative 10/30 [facility] RESULTS Scrn (10/31/19 2:51 AM) /2019 [facility] CHEM PANEL Glucose Lvl 91 70 - 99 10/[address] CHEM PANEL BUN 13 7 - 22 10/[address] CHEM PANEL Creatinine 0.70 0.50 - 10/30 [facility] Lvl 1.40 [facility] CHEM PANEL Sodium Lvl 142 135 - 145 10/[address] CHEM PANEL Potassium 4.0 3.5 - 5.1 10/30 [facility] [place] [address] CHEM PANEL Chloride Lvl 108 95 - 109 10/[address] CHEM PANEL CO2 24 24 - 32 10/[address] CHEM PANEL Calcium Lvl 8.5 8.5 - 10.5 10/30 [facility] /[address] [place] [address] CHEM PANEL Total 6.6 6.4 - 8.4 10/30 [facility] Protein [address] CHEM PANEL Albumin Lvl 3.0 3.5 - 5.0 10/[address] CHEM PANEL ALT 16 0 - 65 10/[address] CHEM PANEL AST 20 0 - 37 10/[address] CHEM PANEL Alk Phos 102 39 - 136 10/[address] CHEM PANEL Bili Total 0.4 0.2 - 1.3 10/[address] CHEM PANEL AGAP 14.0 10.0 - 10/30 [place] 20.0 /2019 [facility] CHEM PANEL B/C Ratio 19 6 - 25 10/[address] CHEM PANEL Globulin 3.6 2.7 - 4.2 10/[address] CHEM PANEL A/G Ratio 0.8 0.7 - 1.6 10/[address] CHEM PANEL eGFR 91 10/30 Result [facility] Comment: The Medical eGFR is Center calculated [...] HEMATOLOGY WBC 8.0 3.7 - 10.4 10/[address] HEMATOLOGY RBC 3.97 4.20 - 10/30 [place] 5.40 [facility] HEMATOLOGY Hgb 12.5 12.0 - 10/30 [facility] 16.0 [facility] HEMATOLOGY Hct 37.6 36.0 - 10/30 [facility] 48.0 [facility] HEMATOLOGY MCV 94.8 80.0 - 10/30 [facility] 98.0 [facility] HEMATOLOGY MCH 31.4 27.0 - 10/30 [facility] 31.0 [facility] HEMATOLOGY MCHC 33.1 32.0 - 10/30 [place] 36.0 [facility] HEMATOLOGY RDW 13.0 11.5 - 10/30 [facility] 14.5 [facility] HEMATOLOGY Platelet 229 133 - 450 10/[address] HEMATOLOGY MPV 8.8 7.4 - 10.4 10/[address] HEMATOLOGY PT 14.2 12.0 - 10/30 [facility] 14.7 /2019 [facility] HEMATOLOGY INR 1.10 0.85 - 10/30 [place] 1.17 [facility] HEMATOLOGY PTT 64.7 22.9 - 10/30 [facility] 35.8 /2020 [facility] HEMATOLOGY Segs 63.4 45.0 - 10/30 [facility] 75.0 /2020 Medical Center HEMATOLOGY Lymphocytes 26.0 20.0 - 10/30 [facility] 40.0 /2020 [facility] HEMATOLOGY Monocytes 8.5 2.0 - 12.0 10/30 [facility]2020 [facility] HEMATOLOGY Eosinophils 1.6 0.0 - 4.0 10/30 [place] /2020 [facility] HEMATOLOGY Basophils 0.5 0.0 - 1.0 10/30 [facility]2020 [facility] HEMATOLOGY Neutrophils 5.1 1.5 - 8.1 10/30 [place] # /2020 [facility] HEMATOLOGY Lymphocytes 2.1 1.0 - 5.5 10/30 [facility] # /2020 [facility] HEMATOLOGY Monocytes # 0.7 0.0 - 0.8 10/[facility] HEMATOLOGY Eosinophils 0.1 0.0 - 0.5 10/30 [facility] /2020 [facility] HEMATOLOGY Sed Rate 2 < OR = 30 03/15 Result June mm/hr Comment: Neuro
Lab test performed by:
[facility]
[address]
[place] [address]
Bryan Carpenter HEMATOLOGY SS-A (Ro) Ab <1.0 NEG <1.0 NEG 03/15 [facility]: [facility]
Lab test performed by:
[facility]
[address]
[place] [address]
Dr. Bryan Carpenter HEMATOLOGY SS-B (La) Ab [...] Immunity Screen, ACIF.

Lab test performed by:
[facility]
[address]
[place] [address]
Dr. Bryan Carpenter HEMATOLOGY EBV VCA IgM 62.60 03/15 Result [facility] Comment: Neuro U/mL Interpretatio n
---- -
<36.00 Negative
36.00-43.99 Equivocal<br/ > >43.99 Positive

Lab test performed by:
[facility]
[address]
[place] [address]
Dr. Bryan Carpenter HEMATOLOGY ANGIOTENSIN 9 9 - 67 03/15 Result [facility] CONVERTING Comment: Neuro ENZYME
Lab test performed by:
[facility]
[address]
[place] [address]
Dr. Bryan Carpenter HEMATOLOGY Varicella 0.69 03/15 [...]
<br/& gt;FASTING: YES

Lab test performed by:
[facility]
[address]
[place] [address]
[address] Bryan Carpenter URINE AND UA Blood Negative Negative 05/06 STOOL (05/06/17 3:21 PM) [place] URINE AND UA Nitrite Negative Negative 05/06 [facility] (05/06/17 3:21 PM) [place] URINE AND UA Bili Negative Negative 05/06 [facility]OOL *NA* /2017 [place] (05/06/17 3:21 PM) URINE AND UA Leuk Est Negative Negative 05/06 [facility] (05/06/17 3:21 PM) [place] URINE AND UA Sq Epi Few /LPF Few /LPF 05/06 STOOL [place] URINE AND UA Protein 30 mg/dL Negative 05/06 [facility] mg/dL [place] URINE AND UA Ketones 20 mg/dL Negative 05/06 [facility] mg/dL [place] URINE AND UA Glucose Negative Negative 05/06 [facility] mg/dL mg/dL [place] URINE AND UA <=1.0 0.1 - 1.0 05/06 STOOL Urobilinogen mg/dL [place] URINE AND UA RBC 1 0 - 2 05/06 [place]OOL [place] URINE AND UA Mucus Few /LPF None Seen 05/06 MH STOOL /LPF [place] URINE AND UA WBC 2 0 - 5 05/06 [facility]OOL [place] URINE AND UA Color Yellow Yellow 05/06 [facility]OOL *NA* /2017 [place] (05/06/17 3:21 PM) URINE AND UA Spec Grav 1.019 <=1.030 05/06 STOOL [place] URINE AND UA pH 5.0 5.0 - 8.0 05/06 STOOL [place] URINE AND UA Turbidity Slight Clear 05/06 STOOL *ABN* /2017 [place] (05/06/17 3:21 PM) CHEM PANEL Lipase Lvl 166 73 - 393 05/06 [place] CHEM PANEL Amylase Lvl 42 25 - 115 05/06 [place] ELECTROLYTE Chloride Lvl 100 95 - 109 05/06 S [place] ELECTROLYTE Sodium Lvl 139 135 - 145 05/06 S [place] ELECTROLYTE Potassium 4.0 3.5 - 5.1 05/06 S Lvl [place] ELECTROLYTE eGFR 41 05/06 MH Comment: The [place] eGFR is calculated using the CKD-EPI formula. [...] Total 0.7 0.2 - 1.3 05/06 S [place] ELECTROLYTE Alk Phos 82 39 - 136 05/06 S [place] ELECTROLYTE A/G Ratio 1.0 0.7 - 1.6 05/06 S [place] ELECTROLYTE ALT 19 0 - 65 05/06 S [place] ELECTROLYTE AST 15 0 - 37 / MH S [place] ELECTROLYTE Globulin 4.1 2.7 - 4.2 01/ MH S /2017 [place] ELECTROLYTE Albumin Lvl 4.3 3.5 - 5.0 05/06 MH S [place] ELECTROLYTE B/C Ratio 18 6 - 25 01 MH S [place] ELECTROLYTE Calcium Lvl 9.4 8.5 - 10.5 01 MH S [place] ELECTROLYTE Total 8.4 6.4 - 8.4 05/06 MH S [place] ELECTROLYTE CO2 27 24 - 32 05/06 MH S [place] ELECTROLYTE AGAP 16.0 10.0 - 05/06 MH S 20.0 [place] ELECTROLYTE Creatinine 1.36 0.50 - 05/06 MH S Lvl 1.40 [place] ELECTROLYTE BUN 24 7 - 22 05/06 MH S [place] ELECTROLYTE Glucose Lvl 77 70 - 99 05/06 MH S [place] HEMATOLOGY Lymphocytes 2.3 1.0 - 5.5 05/06 MH # /2017 [place] HEMATOLOGY Monocytes # 0.8 0.0 - 0.8 05/06 [place] HEMATOLOGY Eosinophils 0.2 0.0 - 4.0 05/06 MH [place] HEMATOLOGY Basophils 0.4 0.0 - 1.0 05/06 [place] HEMATOLOGY Segs-Bands # 6.4 1.5 - 8.1 05/06 [place] HEMATOLOGY Lymphocytes 24.4 20.0 - 05/06 MH 40.0 [place] HEMATOLOGY Monocytes 8.1 2.0 - 12.0 05/06 [place] HEMATOLOGY Segs 66.9 45.0 - 05/06 MH 75.0 [place] HEMATOLOGY MPV 8.4 7.4 - 10.4 05/06 [place] HEMATOLOGY Platelet 287 133 - 450 05/06 [place] HEMATOLOGY MCH 32.4 27.0 - 05/06 MH 31.0 [place] HEMATOLOGY RDW 12.5 11.5 - 05/06 MH 14.5 [place] HEMATOLOGY MCV 91.5 80.0 - 05/06 MH 98.0 [place] HEMATOLOGY MCHC 35.4 32.0 - 05/06 MH 36.0 [place] HEMATOLOGY Hct 42.5 36.0 - 01 48.0 /2017 [place] HEMATOLOGY WBC 9.6 3.7 - 10.4 05/06 [place] HEMATOLOGY Hgb 15.1 12.0 - 05/06 16.0 [place] HEMATOLOGY RBC 4.65 4.20 - 05/06 5.40 /2017 [place] CHEMISTRY eGFR 95 01/23 NA <sup>1</sup>R esult [...] CHEMISTRY AGAP 12.9 10.0 - 01/23 Normal [facility] 20.0 [facility] CHEMISTRY Calcium Lvl 8.5 8.5 - 10.5 01/23 Normal a [facility] CHEMISTRY Glucose Lvl 75 70 - 99 01/23 Normal <sup>4</sup>I T nterpretive Medical Data: Adult Center reference range values reflect the clinical guidelines
of the [employer]. CHEMISTRY CO2 28 24 - 32 01/23 Normal [facility] CHEMISTRY Chloride Lvl 106 95 - 109 01/23 Normal [facility] CHEMISTRY Potassium 3.9 3.5 - 5.1 01/23 Normal [facility] CHEMISTRY BUN 5 7 - 22 01/23 LOW [facility] CHEMISTRY Creatinine 0.7 0.5 - 1.4 01/23 Normal [facility] CHEMISTRY Sodium Lvl 143 135 [...] 10.0 2.0 - 12.0 01/23 Normal [facility] [place] HEMATOLOGY Monocytes # 0.6 0.0 - 0.8 [...] Lvl 109 73 - 393 01/22 Normal [facility] CHEMISTRY Globulin 3.1 2.0 - 4.0 01/22 Normal [facility] CHEMISTRY A/G Ratio 1.0 0.7 - 1.6 01/22 [facility] CHEMISTRY B/C Ratio 4 6 - 25 01/22 [facility] CHEMISTRY AGAP 11.9 10.0 - 01/22 [facility] 20.0 [facility] CHEMISTRY eGFR 95 01/22 NA <sup>2</sup>R esult [...] CHEMISTRY AST 16 0 - 37 01/22 [facility] CHEMISTRY CO2 26 24 - 32 01/22 [facility] CHEMISTRY Calcium Lvl 8.0 8.5 - 10.5 01/22 [facility] [place] [facility] CHEMISTRY Total 6.1 6.4 - 8.4 01/22 [facility] Protein [facility] CHEMISTRY Bili Total 0.5 0.2 - 1.3 01/22 [facility] CHEMISTRY Creatinine 0.7 0.5 - 1.4 01/22 [facility] CHEMISTRY Sodium Lvl 140 135 - 145 01/22 [facility] CHEMISTRY Chloride Lvl 106 95 - 109 01/22 [facility] CHEMISTRY Potassium 3.9 3.5 - 5.1 01/22 [facility] CHEMISTRY ALT 20 0 - 65 01/22 [facility] CHEMISTRY BUN 3 7 - 22 01/22 [facility] CHEMISTRY Glucose Lvl 115 70 - 99 01/22 [place] <sup>5</sup>I MH T ex nterpretive Medical Data: Adult Center reference range values reflect the clinical guidelines
of the [employer]. CHEMISTRY Alk Phos 74 39 - 136 01/22 Normal [facility] CHEMISTRY Albumin Lvl 3.0 3.5 - 5.0 01/22 LOW [facility] HEMATOLOGY Eosinophils 0.1 0.0 - 0.5 01/[place] [facility] HEMATOLOGY Basophils 0.3 0.0 - 1.0 01/22 Normal [facility] HEMATOLOGY Segs-Bands # 2.8 1.5 - 8.1 01/22 Normal [place] [facility] HEMATOLOGY Lymphocytes 2.0 1.0 - 5.5 01/22 [place] # /2012 [facility] HEMATOLOGY Monocytes # 0.6 0.0 - 0.8 01/22 [place] [facility] HEMATOLOGY Lymphocytes 35.5 20.0 - 01/22 Normal [place] 40.0 [facility] Center HEMATOLOGY Monocytes 11.0 2.0 - 12.0 01/22 Normal [facility] HEMATOLOGY Eosinophils 2.1 0.0 - 4.0 01/22 Normal a s [facility] HEMATOLOGY Segs 51.1 45.0 - 01/22 Normal [place] 75.0 /2012 Medical Center HEMATOLOGY Sed Rate 15 0 - 20 01/22 Normal [facility] HEMATOLOGY MCHC 34.6 32.0 - 01/22 Normal [place] 36.0 /2012 Medical Center HEMATOLOGY MCH 32.8 27.0 - 01/22 HI [place] 31.0 /2012 Medical Center HEMATOLOGY RDW 12.3 11.5 - 01/22 Normal [place] 14.5 /2012 Medical Center HEMATOLOGY MPV 8.2 7.4 - 10.4 01/22 Normal [facility] HEMATOLOGY Platelet 189 133 - 450 01/22 Normal [facility] HEMATOLOGY RBC 3.63 4.20 - 01/22 LOW [place] 5.40 /2012 Medical Center HEMATOLOGY WBC 5.5 3.7 - 10.4 01/22 Normal [facility] HEMATOLOGY Hgb 11.9 12.0 - 01/22 LOW [place] 16.0 /2012 Medical Center HEMATOLOGY Hct 34.5 36.0 - 09/22 LOW [facility] 48.0 [facility] HEMATOLOGY MCV 94.9 81.0 - 01/22 Normal [facility] 99.0 [facility] TUMOR CA 19-9 7.0 0.0 - 35.0 01/22 Normal [facility] CHEMISTRY Lactic Acid 0.9 0.5 - 2.2 01/21 Normal [facility] CHEMISTRY eGFR 95 01/21 NA <sup>3</sup>R esult [...] Potassium 4.1 3.5 - 5.1 01/21 Normal [facility] CHEMISTRY Chloride Lvl 107 95 - 109 01/21 [facility] CHEMISTRY Sodium Lvl 140 135 - 145 01/21 [facility] CHEMISTRY Glucose Lvl 102 70 - 99 01/21 [place] <sup>6</sup>I T ex nterpretive Medical Data: Adult Center reference range values reflect the clinical guidelines
of the [employer]. CHEMISTRY BUN 7 7 - 22 01/21 Normal [facility] CHEMISTRY CO2 25 24 - 32 01/21 Normal [facility] CHEMISTRY Calcium Lvl 8.2 8.5 - 10.5 01/[place] [facility] CHEMISTRY Creatinine 0.7 0.5 - 1.4 01/21 Normal [facility] Center CHEMISTRY AGAP 12.1 10.0 - [...] Lvl 2.9 3.5 - 5.0 01/21 LOW [facility] CHEMISTRY AST 24 0 - 37 01/21 Normal [facility] CHEMISTRY Bili Total 0.7 0.2 - 1.3 01/21 Normal [facility] CHEMISTRY Total 5.7 6.4 - 8.4 01/21 LOW [facility] CHEMISTRY B/C Ratio 22 6 - 25 01/21 Normal [facility] CHEMISTRY A/G Ratio 1.0 0.7 - 1.6 01/21 Normal [facility] CHEMISTRY Globulin 2.8 2.0 - 4.0 01/21 Normal [facility] HEMATOLOGY Monocytes 8.6 2.0 - 12.0 01/21 Normal [facility] HEMATOLOGY Lymphocytes 23.8 20.0 - [...] Medical Center URINALYSIS Micro? Performed 01/20 Normal [facility] (01/19/2013 23:30:05) [place] dical Center URINALYSIS UA WBC None Seen None Seen 01/20 Normal [facility] (01/19/2013 23:30:05) [facility] dical Center URINALYSIS UA Sq Epi Few /LPF Few 01/20 Normal [facility] (01/19/2013 23:30:05) Oh dical Center URINALYSIS UA RBC None Seen 0 - 2 01/20 Normal [facility] (01/19/2013 23:30:05) Me dical Center URINALYSIS UA Blood Negative Negative 01/20 Normal [facility] (01/19/2013 23:30:05) Oh dical Center URINALYSIS UA 0.2 0.1 - 1.0 01/20 Normal [facility] Urobilinogen /2012 Medical Center URINALYSIS UA Bili Negative Negative 01/20 NA [place] *NA* /2012 Medical (01/19/2013 23:30:05) Ce nter URINALYSIS UA Nitrite Negative Negative 01/20 Normal [facility] (01/19/2013 23:30:05) Me dical Center URINALYSIS UA Leuk Est Negative Negative 01/20 Normal [facility] (01/19/2013 23:30:05) Oh dical Center URINALYSIS UA Glucose Negative mg/dL Negative 01/20 Normal [facility] (01/19/2013 23:30:05) Oh dical Center URINALYSIS UA Ketones Negative mg/dL Negative 01/20 NA *NA* Medical (01/19/2013 23:30:05) Ce nter URINALYSIS UA pH 8.0 5.0 - 8.0 01/20 Normal [facility] URINALYSIS UA Protein Negative mg/dL Negative 01/20 Normal [facility] (01/19/2013 23:30:05) Oh dical Center URINALYSIS UA Turbidity Clear Clear 01/20 Normal [facility] (01/19/2013 23:30:05) Oh dical Center URINALYSIS UA Spec Grav 1.015 <=1.030 01/20 Normal [facility] URINALYSIS UA Color Yellow Yellow 01/20 NA /2012 Medical (01/19/2013 23:30:05) Ce nter CHEMISTRY Lipase Lvl 345 73 - 393 01/20 Normal [facility] CHEMISTRY Total 7.3 6.4 - 8.4 01/20 Normal [facility] CHEMISTRY Bili Total 0.5 0.2 - 1.3 01/20 Normal [facility] CHEMISTRY Albumin Lvl 3.8 3.5 - 5.0 01/20 Normal [facility] CHEMISTRY ALT 30 0 - 65 01/20 Normal [facility] CHEMISTRY Alk Phos 81 39 - 136 01/20 Normal [facility] CHEMISTRY Bili Direct 0.1 0.0 - 0.3 01/20 Normal [facility] CHEMISTRY AST 23 0 - 37 01/20 Normal [facility] CHEMISTRY Globulin 3.5 2.0 - 4.0 01/20 Normal [facility] CHEMISTRY A/G Ratio 1.1 0.7 - 1.6 01/20 Normal [facility] CHEMISTRY Bili 0.4 0.0 - 1.0 01/20 Normal [facility] HEMATOLOGY Basophils # 0.1 0.0 [...] pain since last admission in march/DLP:1306.16mGy-cm 05/06/2017 [facility] contrast only CT Comparison: CT abdomen pelvis [...] mild asymmetry in the renal size. SL: [id number] Abdomen/Pelvis CTA EXAM: CTA ABDOMEN. 01/22/2013 [facility] edical EXAM: CTA PELVIS. Center DATE: January [...] AND PELVIS, W/O CONTRAST 01/02 [facility] contrast CT Center DATE: 01/20/2013 [...] CT ABDOMEN AND PELVIS, W/ CONTRAST, 01/19 [facility] contrast CT Center DATE: 01/20/2013 [...] Chest 1view EXAM: CHEST 1 VIEW 01/19/2013 [facility] DATE: January 19, 2013 at 2244 [...] [facility] Heart Rate 73 10/31/2019 [facility] Respitory Rate 20 10/31/2019 [facility] Systolic (mm Hg) 140 10/31/2019 [facility] dical [place] Diastolic (mm Hg) 84 10/31/2019 [facility] Temperature Oral (F) 98.2 F 10/31/2019 [facility] Heart Rate 80 10/31/2019 [facility] Respitory Rate 20 10/31/2019 [facility] ion Center Systolic (mm Hg) 160 10/31/2019 [facility] dical Center Diastolic (mm Hg) 90 10/31/2019 [facility] [place] Temperature Oral (F) 97.9 F 10/31/2019 [facility] Heart Rate 66 10/31/2019 [facility] Respitory Rate 20 10/31/2019 [facility] Center Systolic (mm Hg) 137 10/31/2019 [facility] dical Center Diastolic (mm Hg) 70 10/31/2019 [facility] Height 167.64 cm 10/31/2019 [facility] Weight 79.091 10/31/2019 [facility] BMI Calculated 28.14 10/31/2019 [facility] ion Center Systolic (mm Hg) 118 [...] 12/21/2018 [facility] BMI Calculated 31.18 12/21/[facility] BMI Calculated 29.6 10/19/2018 [facility] Height 167.64 cm 10/19/2018 [facility] Weight 83.182 10/19/2018 [facility] Systolic (mm Hg) 106 10/19/2018 [facility] Diastolic (mm Hg) 70 10/19/2018 [facility] Respitory Rate 16 10/19/2018 [facility] Heart Rate 74 10/19/2018 [facility] BMI Calculated 27.5 09/08/2018 [facility] Weight 77.273 09/08/2018 [facility] Height 167.64 cm 09/08/2018 [facility] Respitory Rate 16 09/08/2018 [facility] Heart Rate 87 09/08/2018 [facility] Systolic (mm Hg) 105 09/08/2018 [facility] [place] [facility] Diastolic (mm Hg) 68 09/08/2018 [facility] Heart Rate 72 05/07/2017 [facility] Systolic (mm Hg) 115 05/07/2017 [facility] Diastolic (mm Hg) 68 05/07/2017 [facility] [place] Respitory Rate 16 05/07/2017 [facility] Temperature Oral (F) 98.0 F 05/07/2017 [facility] [place] Temperature Oral (F) 97.7 F 05/07/2017 [facility] [place] Systolic (mm Hg) 111 05/07/2017 [facility] [place] Diastolic (mm Hg) 65 05/07/2017 [facility] [place] Heart Rate 70 05/07/2017 [facility] [place] Respitory Rate 17 05/07/2017 [facility] [place] Weight 61.364 05/06/2017 [facility] [place] Temperature Oral (F) 98.2 F 05/06/2017 [facility] [place] Heart Rate 83 05/06/2017 [facility] [place] Respitory Rate 18 05/06/2017 [facility] [place] Systolic (mm Hg) 102 05/06/2017 [facility] Diastolic (mm Hg) 55 05/06/2017 [facility] [place] Heart Rate 79 01/23/2013 [facility] Temperature Oral (F) 98.1 F 01/23/2013 [facility] Respitory Rate 18 01/23/2013 [facility] ion Center Systolic (mm Hg) 133 01/23/2013 [facility] dical Center Diastolic (mm Hg) 69 01/23/2013 [facility] edical Center Diastolic (mm Hg) 68 01/23/2013 [facility] edical Center Systolic (mm Hg) 129 01/23/2013 [facility] dical Center Heart Rate 67 01/23/2013 [facility] Medica l Center Respitory Rate 18 01/23/2013 [facility] ion Center Temperature Oral (F) 98.4 F 01/23/2013 [facility] Heart Rate 65 01/23/2013 [facility] Systolic (mm Hg) 106 01/23/2013 [facility] dical Center Respitory Rate 18 01/23/2013 [facility] ion Center Diastolic (mm Hg) 59 01/23/2013 [facility] edical Center Temperature Oral (F) 98.5 F 01/23/2013 [facility] Center Height 158.4 cm 01/20/2013 [facility] Height 160.02 cm 01/20/2013 [facility] Medica l Center Weight 65 01/20/2013 [facility] Weight 65 01/16/2013 [facility] Diastolic (mm Hg) 78 01/16/2013 [facility] edical Center Systolic (mm Hg) 119 01/16/2013 [facility] dical Center Temperature Oral (F) 98.5 F 01/16/2013 [facility] Center Respitory Rate 18 01/16/2013 [facility] ion Center Heart Rate 87 01/16/2013 [facility] Encounters Location Location Encounter Encounter Reason Attending ADM VA Stat us Source Details Type Number For Provider Date Date Visit [facility] Outpatient [id number] ABD ATILLA 01/16 Active [facility] Medical 0 [facility] RAULITO [id number] ATILLA 01/19 01/19 Discharg M [facility] Medical 1 ERTAN [facility] Inpatient [id number] HILARY 01/20 01/23 Dischar g [facility] Medical 3 SAJJA /2012 [facility] Emergency [id number] [place] 05/06 05/07 [facility] 4 [place] /[address] [facility] Outpatient [id number] ANGELA 07/15 [facility] [place] Out[facility] [id number] ANGELA 07/15 [facility] [id number] Angela 08/03 [facility] [place] Out[facility] [id number] ANGELA / Active [facility] Phone [id number] 08/18 08/20 [facility] [place] [facility] [id number] Angela 09/08 [facility] Outpatient [id number] Angela 09/08 09/09 [facility] 4 [facility] [place] [facility] [id number] Angela 10/19 Active [facility] [place] [facility] Outpatient [id number] Angela 10/19 10/20 [facility] 5 [facility] [place] [facility] [id number] Angela 12/21 [facility] Outpatient [id number] Angela 12/21 12/22 [facility] 6 [facility] [place] [facility] [id number] Angela 03/15 Active [facility] Outpatient [id number] Angela 03/15 03/16 [facility] 7 [facility] [place] Out[facility] [id number] Angela 03/22 Active [facility] [place] [facility] Outpatient [id number] Angela 03/22 03/23 [facility] 8 [facility] [place] Outpatient [id number] Angela 05/05 Active [facility] Outpatient [id number] Angela 05/05 05/06 [facility] 9 [facility] [place] Outpatient [id number] Angela 08/03 Active [facility] Ambulatory [id number] Angela 08/03 08/03 [facility] Pre-Reg 0 [facility] [place] [facility] [id number] Afnan 10/30 10/[address] /[address] [facility] Outpatient [id number] POST ATILLA Cancel [facility] 2 FOLLOW 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 Assessment and Plan Assessment and Plan Date Source Extracted from:Title: History and Physical 10/31/2019 [facility] Author: Smith Estevez DO Date: 10/31/19 The patient is a 63 year old woman with PMH of HTN, meralgia paresthetica s/p recent lumbosacral plexopathy on 08/2019, cervical spondylosis who was transferred from [facility] to findings of PE and pulmonary [...] with Observation Services, Telemetry Capable Location, Location: [address] [place] [address], Expected LOS: 2 Midnights, Yung Busch DO, [...] History Date Source Social History TypeResponse 10/31/2019 [facility] Alcohol Never Employment/School 1 Substance Abuse Use: [...]
--- OUTSIDE RECORDS SUMMARY | 2020-04-29 06:36 | XMS REPORT | Continuity of Care Document ---
:1955 Author Organization [facility] t Address [address] [place] [address] Care Team Providers Name Role Phone Nayla Alonzo MD Primary Care Physician Florentin Busch Attending Clinician Lauryn Fountain MD Attending Clinician Chel Florian MD Attending Clinician Danae TAYLOR Attending Clinician Wanda Suarez NP Attending Clinician Reza CHERY, SManjit Attending Clinician Chaparro RAVI Attending Clinician Unavailable Vahe HOYT Attending Clinician Unavailable Tulio Palacios Attending Clinician Kevin Stiles Attending Clinician [facility], [facility] Attending Clinician Unavailable Danitza Sotelo MD Attending Clinician Tima Melton Jr Attending Clinician Mike Hannah Admitting Clinician ANIVAL Admitting Clinician Unavailable Payers Payer Name Policy Type Policy Effective Date Expiration Date Sour ce Number CIGNA - MGD CARECIGNA [id number] [facility] HMO/POS/OPEN 00:00:00 - Medical [id number] Reva mehdi 013-PresentHMO/POS MEDICAREMEDICARE PART [id number] 2018 Francisco J Brown AND 00:00:00 Denominational [id number] 2018- [facility] SDMedicare COMMERCIAL MISCMISC [id number] [place] [id number] 00:00:00 Met anjali 05/2009-PresentCommer ial Problems Condition Condition Condition Status Onset Resolution Last Treating Co mments Source Name Details Category Date Date Treatment Clinician Date PE, Diagnosis Active 2019-2019-11-01 Mem oria PULMONARY 10-29 14:09:00 l DVT LEFT PE, 00:00: Agus LEG PULMONARY 00 DVT LEFT LEG Active 10/30/2019 [facility] Follow-up Follow-up Disease Active Lacho romero examinatio examinatio 6-18 Me thodi n n 00:00: st following following 00 surgery surgery S/P lumbar S/P lumbar Disease Active H dany laminectom laminectom 5-19 Me thodi y y 00:00: st 00 DDD DDD Disease Active [place] (degenerat (degenerat 4-13 Me thodi jhon disc jhon disc 00:00: st disease), disease), 00 lumbar lumbar Spinal Spinal Disease Active 2019- [place] stenosis stenosis 4-13 Method i of lumbar of lumbar 00:00: st region region 00 with with neurogenic neurogenic claudicati claudicati on on Thoracic Thor[facility] Me thodi thy thy 00:00: st 00 Claudicati Claudicati Disease Active 2020- [place] on on 3-03 Methodi 00:00: st 00 Bilateral Bilateral Disease Active 2019- Lacho ston carotid carotid 2-04 Methodi artery artery 00:00: st stenosis stenosis 00 PAD PAD Disease Active [place] (periphera (periphera 2-04 Me thodi l artery l artery 00:00: st disease) disease) 00 Chronic Chronic Disease Active [place] back pain back pain 6-05 Meth nik 00:00: st 00 Generalize Generalize Disease Active H dany d d 4-30 Methodi abdominal abdominal 00:00: st pain pain 00 Right Right Disease Active [place] upper upper 07-26 Methodi quadrant quadrant 00:00: st pain pain 00 Slow Slow Disease Active [place] transit transit 07-26 Methodi constipati constipati 00:00: st on on History of History of Disease Active H dany cholecyste cholecyste 07-26 Ar thodi ctomy ctomy 00:00: st 00 Essential Essential Disease Active Lacho ston hypertensi hypertensi 07-26 Me thodi on on 00:00: st 00 Splenic Splenic Disease Active [place] artery artery 07-26 Methodi aneurysm aneurysm 00:00: st 00 Anxiety Anxiety Disease Active [place] 07-26 Methodi 00:00: st 00 ABDOMINAL Diagnosis Active 2017-05-06 Memoria PAIN/LOSS - 18:11:00 l OF 00:00: Agus APPETITE ABDOMINAL 00 PAIN/LOSS OF APPETITE Active 05/06/2017 [facility] SURGERY Diagnosis Active 2013-01-20 Ar moria THIS 01-19 08:28:00 l MORNING, SURGERY 00:00: Maria E nn PROBLEMS THIS 00 BREATHING MORNING, PROBLEMS BREATHING Active 01/19/2013 [facility] POST Diagnosis Active 2013-03-05 Mem oria FOLLOW UP 01-19 15:20:00 l POST 00:00: Agus FOLLOW UP 00 Active 01/19/2013 [facility] BDDC-WEIGH Diagnosis Active 2013-01-19 Memoria T LOSS 01-17 08:37:00 l 00:00: Agus BDDC-WEIGH 00 T LOSS Active 01/17/2013 [facility] 783.21 - Diagnosis Active 2013-12-25 M emoria ABNORMAL 01-16 02:47:00 l LOSS O 783.21 - 00:01: Dwight sanon 576.0 - ABNORMAL 00 POSTCHO LOSS O 576.0 - POSTCHO Active 01/16/2013 MARIA VICTORIA Sauer ABD PAIN Diagnosis Active 2013-01-16 M emoria 01-11 13:45:00 l ABD PAIN 00:00: Dwight sanon 00 Active 01/11/2013 [facility] Acid Problem Resolve 2013-01-25 Abdiel leigh ann reflux d 21:01:15 l Acid Agus reflux Resolved Problem 01/25/2013 [facility] HTN - Problem Resolve 2013-01-25 Abdiel leigh ann Hypertensi d 21:01:15 l on HTN - Agus Hypertensi on Resolved Problem 01/25/2013 [facility] Gastroesop Problem Resolve 2019-11-02 Memoria hageal d 22:38:04 l reflux [place] disease Gastroesop (disorder) hageal reflux disease (disorder) Resolved Problem 11/02/2019 [facility] Lumbosacra Problem Resolve 2019-11-02 Memoria l plexus d 22:38:04 l neuropathy Dwight n (disorder) Lumbosacra l plexus neuropathy (disorder) Resolved Problem 11/02/2019 [facility] Cervical Problem Active 2019-11-02 Mem oria spondylosi 22:38:04 l s Cervical Dwight n (disorder) spondylosi s (disorder) Active Problem 11/02/2019 [facility] Hypertensi Problem Active 2019-11-02 M emoria ve 22:38:04 l disorder, Agus systemic Hypertensi arterial ve (disorder) disorder, systemic arterial (disorder) Active Problem 11/02/2019 [facility] Menopausal Problem Active 2019-11-02 M emoria syndrome 22:38:04 l (disorder) Dwight n Menopausal syndrome (disorder) Active Problem 11/02/2019 [facility] Meralgia Problem Active 2019-11-02 Mem oria parestheti 22:38:04 l ca Meralgia Dwight n (disorder) parestheti ca (disorder) Active Problem 11/02/2019 [facility] Pituitary Problem Active 2019-11-02 Me moria adenoma 22:38:04 l (disorder) Dwight n Pituitary adenoma (disorder) Active Problem 11/02/2019 Data migrated from [facility] on 12/25/14. [facility] Ulcer of Problem Active 2019-11-02 Mem oria lower 22:38:04 l extremity Ulcer of Her melendez (disorder) lower extremity (disorder) Active Problem 11/02/2019 [facility] ABDMNAL Diagnosis Active 2013-01-20 Me moria PAIN 08:28:00 l UNSPCF ABDMNAL Agus SITE PAIN UNSPCF SITE Active [facility] Unspecifie Problem 2017-05-09 2017-05-09 Memoria d 1-04 05:06:50 05:06:50 l abdominal 06:00: [place] pain Unspecifie 00 d abdominal pain 05/06/2017 05/09/[address] [facility] Allergies, Adverse Reactions, Alerts Allergy Allergy Status Severity Reaction(s) Onset Inactive Treating Comm ents Source Name Type Date Date Clinician Morphine Propensi Active Other (See Makes her [place] ty to Comments) 01-15 loud and Metho di adverse 00:00: crazy st reaction 00 s to drug Diazepam Propensi Active Other (See Makes her [place] ty to Comments) 01-15 crazy and Meth nik adverse 00:00: wild st reaction 00 s to drug Midazola Propensi Active Other (See Makes her [place] m ty to Comments) 01-15 crazy and Meth nik adverse 00:00: loud st reaction 00 s to drug midazola midazola Active 2011-05 Memori a m<sup>2< m<sup>2< 0-23 l /sup> /sup> 05:00: morphine morphine Active 2011-05 Memori a <sup>3</ <sup>3</ 0-23 l sup> sup> 05:00: midazola DA Active SV 2009-05 [facility] m HCl 05-13 00:00: [address] diazepam DA Active SV 2009-05 [facility] 05-13 00:00: [address] morphine DA Active MO 2009-05 [facility] 05-13 00:00: [address] Valium Valium Active Nikooria l Agus morphine morphine Active Eldon a larry Goldsmith cortison cortison Active Memdakota a philomena Goldsmith Family History Family Member Diagnosis Comments Start Date Stop Date Source Natural father Cancer [facility] thodist Natural father Liver cancer [place] Denominational Natural father Liver disease [place] Denominational Natural father Lung cancer [facility] ethodist Maternal grandfather Heart disease H dany Denominational Maternal grandfather Hypertension alex Denominational Maternal grandmother Heart disease H dany Denominational Maternal grandmother Hypertension [place] Denominational Natural mother Cancer [facility] thodist Natural mother Colon cancer [place] Denominational Natural mother Ovarian cancer [place] Denominational Natural mother Stomach cancer [place] Denominational Social History Social Habit Start Date Stop Date Quantity Comments Source Sex Assigned At [facility] ethodist Tobacco use and 2019-09-20 2019-09-20 Never used [facility] ethodist exposure 00:00:00 00:00:00 Alcohol intake 2019-09-20 2019-09-[address] [facility] thodist 00:00:00 00:00:00 non-drinker of alcohol (finding) Social History 2017-05-07 2017-05-07 [facility] ermann 04:13:00 04:13:00 Smoking Status Start Date Stop Date Source Never smoker [place] Autumn t Medications Ordered Filled Start Stop Current Ordering Indication Dosage Frequency Signature Comments Components Source Medication Medication Date Date Medication? Clinician (SIG) Name Name remove No Notes: Memoria patch 10-31 Remove l 05:40: patch 12 Agus 00 hours after applicatio n each day. sennosides, No Notes: Abdiel leigh ann HALF-WAY 10-31 (Same as: l 02:00: Senokot) [place] 00 tramadol No Notes: Not Mem oria hydrochlori 6-30 to exceed l de 50 MG 19:00: 400mg/day. Her melendez Oral Tablet 00 (Same As: Ultram) Lidocaine Yes 1 patch, Abdiel leigh ann Hydrochlori 6-30 TOP, l de 0.05 17:45: Daily, Agus MG/MG 00 Remove Transdermal after 12 Patch hours, # [Lidoderm] 30 patch, 0 Refill(s), Pharmacy: [id number], 167.64, cm, 10/31/19 2:23:00 CDT, [...] tab, PO, l tablet 16:11: Daily, 0 [place] 00 Refill(s) omeprazole 2020-0 Yes 20 mg [...] Memoria 6-30 Route: PO, l 14:00: Daily, [place] 00 Dosing Weight 83.636, kg, Start date: 10/31/19 9:00:00 CDT, Duration: 30 day, Stop date: 11/29/19 9:00:00 CDT pregabalin 2019-0 No Notes: Memor ia 6-30 (Same as: l 14:00: Lyrica) quinapril 2019-0 No 20 mg, 1 Abdiel leigh ann 6-30 tab, l 14:00: Route: PO, [place] Drug form: TAB, Daily, Dosing Weight 83.636, kg, Start date: 10/31/19 9:00:00 CDT, Duration: 30 day, Stop date: 11/29/19 9:00:00 CDT Protonix No Notes: Memoria 6-30 Tablet l 14:00: should not Agus 00 be chewed or crushed. (Same as: Protonix) Acetaminoph No Notes: Abdiel leigh ann en 325 MG / 6-30 (Same as: l Hydrocodone 08:17: [place] Maria E nn Bitartrate 00 325/5) Do 5 MG Oral not exceed Tablet 4gm/day of [[place] acetaminop 5/325] hen. Hydromorpho No Notes: Abdiel leigh ann ne 6-30 Same as l 08:16: Dilaudid [place] 00 Heparin 80 No Route: Memor ia [...] 6-30 Total l 25,000 unit 07:25: Concentrat [place] [18 00 ion = 50 unit/kg/hr] unit/ ml + Premix Total Diluent volume = Sodium 500 ml Chloride Send Med 0.45% 500 Request 2 mL hours prior to next bag Acetaminoph No Notes: Do M emoria en 325 MG / 6-30 not exceed l Hydrocodone 07:17: 4gm/day of Agus Bitartrate 00 acetaminop 10 MG Oral hen. Tablet (Same as: [place] 325/10) clorazepate No Notes: Abdiel leigh ann [...] 38 :00 daily. pregabalin 2020-0 Yes 100mg [id number] Take 100 [place] (LYRICA) 5-22 [id number] mg by Meth nik 100 MG 11:10: 3D mouth 3 st capsule 32 (three) times a day. quinapril 2020-0 Yes 20mg QD Take 20 mg [place] (ACCUPRIL) 5-22 by mouth Metho di 20 MG 11:10: nightly. st tablet 32 HYDROcodone 2020-0 Yes acute pain 1{tbl} [id number] Take 1 [place]oo -acetaminop 5-22 [id number] tablet by Methodpatt hen (NORCO) 11:10: 3D [...] do not take for 7 days. oxyCODone-a 2019-0 Yes acute pain 1{tbl} Q4H Take 1 [...] day as needed for muscle spasms. linaclotide 2019-0 2020- No 145ug Take 145 Yoo (LINZESS) [...] st tablet 21 :00 daily. ascorbic 2019- 2020- No 1500mg QD Take 1,500 [place] acid, 2-04 02-04 mg by Methodi vitamin C, 09:48: 00:[address] (vitamin C) 17 :00 daily. 100 MG tablet Aspirin 81 2019-0 Yes 81 mg = 1 Me moria [...] M emoria Conjugated 8-22 tab, PO, l (HALF-WAY) 0.3 13:52: Daily, # Herm emmett MG Oral 00 30 tab, 0 Tablet Refill(s) [Premarin] Acetaminoph Yes 1 tab, PO, Memoria en 325 MG / 8-22 Q6H, 0 l Hydrocodone 13:52: Refill(s) H ermann Bitartrate 00 10 MG Oral Tablet [place] Yes BUC, Q12H, Abdiel leigh ann 6-19 0 l 16:41: Refill(s) [place] 00 Buprenorphi Yes 150 Memori a ne 0.15 MG 6-19 microgram l Buccal Film 16:41: = 1 ea, Her melendez [[facility]] 00 BUC, BID, 0 Refill(s) buprenorphi 2019- No 150 [place] ne 6-19 04-01 microgram Methodi (BELBUCA) 00:00: 00:00 = 1 ea, st 150 mcg 00 :00 BUC, BID, film buccal 0 film Refill(s) amitriptyli Yes 20 mg = 2 Fabian grier ne 10 mg 4-18 tab, PO, l oral tablet 15:16: Bedtime, # [place] 24 180 tab, 3 Refill(s), Pharmacy: [id number] amitriptyli 2019- No 20 mg = 2 Fredo ne (ELAVIL) 4-18 05-11 tab, PO, Met hodi 10 MG 00:00: 00:00 Bedtime, # st tablet 00 :00 180 tab, 3 Refill(s), Pharmacy: [id number] CREON 2019- No TAKE ONE [place] 12,000-38,0 4-02 02-04 CAPSULE BY Fabian domingo 00 -60,000 00:00: 00:[address] unit 00 :00 TIMES A capsule,del DAY WITH A ayed MEAL release(DR/ EC) capsule Acetaminoph Yes 1 tab, PO, Memoria en 300 MG / 1-05 TID, PRN l Codeine 03:39: Pain, X 4 Maria E nn Phosphate day, # 12 30 MG Oral tab, [...] Sodium No 1,000 mL, Memori a Chloride -04 1000 l 0.9% 18:46: ml/hr, [place] (Bolus) IV 00 Infuse Over: 1 hr, Route: IV, 1,000, Drug form: INJ, ONCE, Priority: STAT, Dosing Weight 61.364 kg, Start date: 05/06/17 12:46:00 LINE AND FRAME POLER, Stop date: 05/06/17 12:46:00 LINE AND FRAME POLER Saline No Notes: Memoria Flush 0.9% 04 (Same as: l 18:46: BD Agus Posiflush) potassium 2016-05- No 10meq QD Take 10 Lacho ston chloride 2-08 02-04 mEq by Methodi (K-DUR,KLOR 00:00: 00:[address] -CON) 10 00 :00 daily. MEQ CR tablet hydroCHLORO Yes 12.5mg QD Take 12.5 [place] thiazide 2-16 mg by Methodi (HYDRODIURI 00:00: mouth once st L) 12.5 MG 00 daily. tablet ondansetron 2019- No FOUR TIMES [place] (Zofran) 4 9-12 05-11 DAILY PRN Met [...] Sajja 1 tab, l 16:30: Route: PO, [place] 00 Drug form: TAB, QID-Before Meals, Dosing [...] needed for pain, Substituti on Allowed, TAB [place] No [place] 1 tab, Memoria 10/325 oral [...] Duration: 30 day, Stop date: 02/21/13 12:16:00 [place] No [place] 1 tab, Memoria 10/325 oral [...] 01-21 Sajja pkt, l 14:38: Route: PO, [place] 00 Drug form: PWDR, Daily, Dosing Weight [...] Route: l 11:00: SUB-Q, Drug form: INJ, [id number], Dosing Weight 65, kg, Start date: 01/20/13 6:00:00, Duration: 30 day, Stop date: 02/18/13 6:00:00 NS + KCL No Elyssa 1,000 mL, Me moria 20mEq/L 20 Luis Rate: 125 l 1000ml 10:25: ml/hr, [place] (Premix) 00 Infuse 1,000 mL over: 8 [...] Mem oria -20 on Allowed l 10:21: Agus 15 ondansetron [...] 01-20 Sajja Route: l 08:51: IVPB, Drug [place] 00 form: PDR/INJ, ONCE, Dosing Weight 65, kg, Priority: STAT, Start date: 01/20/13 3:51:00, Stop date: 01/20/13 3:51:00 fentanyl No Willian 50 Memoria -20 Hardeep microgram, l 08:43: Catherine Route: [place] 00 IVP, ONCE, Dosing Weight 65, kg, [...] -20 Hardeep microgram, l 04:31: Catherine Route: [place] 00 IVP, ONCE, Dosing Weight 65, kg, [...] 01-20 Hardeep Rate: l 03:38: Catherine 1,000 [place] 00 ml/hr, Infuse over: 1 hr, Route: [...] Temperature Oral (F) 2019-10-31 20:24:00 98.1 F [facility] [place] Heart Rate 2019-10-31 20:24:00 [facility] [place] Respitory Rate 2019-10-31 20:24:00 Memori al Agus Systolic (mm Hg) 2019-10-31 20:24:00 Abdiel rial Agus Diastolic (mm Hg) 2019-10-31 20:24:00 Mem orial Agus Temperature Oral (F) 2019-10-31 16:12:00 98.2 F [facility] [place] Heart Rate 2019-10-31 16:12:00 [facility] Agus Respitory Rate 2019-10-31 16:12:00 Memori al Agus Systolic (mm Hg) 2019-10-31 16:12:00 Abdiel rial [place] Diastolic (mm Hg) 2019-10-31 16:12:00 Mem orial [place] Temperature Oral (F) 2019-10-31 12:25:00 97.9 F [facility] Agus Heart Rate 2019-10-31 12:25:00 [facility] [place] Respitory Rate 2019-10-31 12:25:00 Memori al [place] Systolic (mm Hg) 2019-10-31 12:25:00 Abdiel rial Agus Diastolic (mm Hg) 2019-10-31 12:25:00 Mem orial [place] Height 2019-10-31 07:23:00 167.64 cm [facility] Agus Weight 2019-10-31 07:23:00 [facility] Agus BMI Calculated 2019-10-31 07:23:00 Memori al [place] Systolic blood 2019-09-22 07:44:14 153 mm[Hg] [place] Denominational pressure Diastolic blood 2019-09-22 07:44:14 70 mm[Hg] [place] on Denominational pressure Heart rate 2019-09-22 07:44:14 65 /min [place] Denominational Body temperature 2019-09-22 07:44:14 36.78 Radha [place] Denominational Respiratory rate 2019-09-22 07:44:14 18 /min [place] Denominational Oxygen saturation in 2019-09-22 07:44:14 97 /min [place] Denominational Arterial blood by Pulse oximetry Body height 2019-09-19 10:00:00 167.6 cm [place] Denominational Body weight 2019-09-19 10:00:00 80.241 kg [place] Denominational BMI 2019-09-19 10:00:00 28.55 kg/m2 [place] Denominational Systolic (mm Hg) 2019-05-05 16:51:00 Abdiel rial [place] Diastolic (mm Hg) 2019-05-05 16:51:00 Mem orial Agus Heart Rate 2019-05-05 16:51:00 [facility] Agus Respitory Rate 2019-05-05 16:51:00 Memori al Agus Height 2019-05-05 16:51:00 165.1 cm [facility] [place] Weight 2019-05-05 16:51:00 [facility] [place] BMI Calculated 2019-05-05 16:51:00 Memori al Agus Systolic (mm Hg) 2019-03-22 17:27:00 Abdiel rial Agus Diastolic (mm Hg) 2019-03-22 17:27:00 Mem orial [place] Heart Rate 2019-03-22 17:27:00 [facility] [place] Respitory Rate 2019-03-22 17:27:00 Memori al [place] Height 2019-03-22 17:27:00 165.1 cm [facility] Agus Weight 2019-03-22 17:27:00 [facility] [place] BMI Calculated 2019-03-22 17:27:00 Memori al [place] Systolic (mm Hg) 2019-03-15 17:56:00 Abdiel rial [place] Diastolic (mm Hg) 2019-03-15 17:56:00 Mem orial [place] Heart Rate 2019-03-15 17:56:00 [facility] [place] Respitory Rate 2019-03-15 17:56:00 Memori al Agus Height 2019-03-15 17:56:00 165.1 cm [facility] [place] Weight 2019-03-15 17:56:00 [facility] Agus BMI Calculated 2019-03-15 17:56:00 Memori al [place] Systolic (mm Hg) 2018-12-21 16:44:00 Abdiel rial Agus Diastolic (mm Hg) 2018-12-21 16:44:00 Mem orial Agsu Heart Rate 2018-12-21 16:44:00 [facility] Agus Respitory Rate 2018-12-21 16:44:00 Memori al Agus Height 2018-12-21 16:44:00 165.1 cm [facility] [place] Weight 2018-12-21 16:44:00 [facility] Agus BMI Calculated 2018-12-21 16:44:00 Memori al Agus BMI Calculated 2018-10-19 16:19:00 Memori al Agus Height 2018-10-19 16:19:00 167.64 cm [facility] [place] Weight 2018-10-19 16:19:00 [facility] Agus Systolic (mm Hg) 2018-10-19 16:19:00 Abdiel rial Agus Diastolic (mm Hg) 2018-10-19 16:19:00 Mem orial [place] Respitory Rate 2018-10-19 16:19:00 Memori al [place] Heart Rate 2018-10-19 16:19:00 [facility] [place] BMI Calculated 2018-09-08 19:24:00 Memori al [place] Weight 2018-09-08 19:24:00 [facility] Agus Height 2018-09-08 19:24:00 167.64 cm [facility] [place] Respitory Rate 2018-09-08 19:24:00 Memori al [place] Heart Rate 2018-09-08 19:24:00 [facility] [place] Systolic (mm Hg) 2018-09-08 19:24:00 Abdiel rial [place] Diastolic (mm Hg) 2018-09-08 19:24:00 Mem orial Agus Heart Rate 2017-05-07 04:11:00 [facility] Agus Systolic (mm Hg) 2017-05-07 04:11:00 Abdiel rial [place] Diastolic (mm Hg) 2017-05-07 04:11:00 Mem orial [place] Respitory Rate 2017-05-07 04:11:00 Memori al [place] Temperature Oral (F) 2017-05-07 04:11:00 98.0 F [facility] Agus Temperature Oral (F) 2017-05-07 02:30:00 97.7 F [facility] [place] Systolic (mm Hg) 2017-05-07 02:30:00 Abdiel rial [place] Diastolic (mm Hg) 2017-05-07 02:30:00 Mem orial Agus Heart Rate 2017-05-07 02:30:00 [facility] Agus Respitory Rate 2017-05-07 02:30:00 Memori al Agus Weight 2017-05-06 18:43:00 [facility] Agus Temperature Oral (F) 2017-05-06 18:43:00 98.2 F [facility] Agus Heart Rate 2017-05-06 18:43:00 [facility] [place] Respitory Rate 2017-05-06 18:43:00 Memori al Agus Systolic (mm Hg) 2017-05-06 18:43:00 Abdiel rial [place] Diastolic (mm Hg) 2017-05-06 18:43:00 Mem orial [place] Heart Rate 2013-01-23 12:37:00 [facility] Agus Temperature Oral (F) 2013-01-23 12:37:00 98.1 F [facility] Agus Respitory Rate 2013-01-23 12:37:00 Memori al [place] Systolic (mm Hg) 2013-01-23 12:37:00 Abdiel rial Agus Diastolic (mm Hg) 2013-01-23 12:37:00 Mem orial [place] Diastolic (mm Hg) 2013-01-23 10:13:00 Mem orial Agus Systolic (mm Hg) 2013-01-23 10:13:00 Abdiel rial Agus Heart Rate 2013-01-23 10:13:00 [facility] [place] Respitory Rate 2013-01-23 10:13:00 Memori al Agus Temperature Oral (F) 2013-01-23 10:13:00 98.4 F [facility] Agus Heart Rate 2013-01-23 00:10:00 [facility] [place] Systolic (mm Hg) 2013-01-23 00:10:00 Abdiel rial Agus Respitory Rate 2013-01-23 00:10:00 Memori al Agus Diastolic (mm Hg) 2013-01-23 00:10:00 Mem orial [place] Temperature Oral (F) 2013-01-23 00:10:00 98.5 F [facility] Agus Height 2013-01-20 14:20:00 158.4 cm [facility] Agus Height 2013-01-20 01:53:00 160.02 cm [facility] Agus Weight 2013-01-20 01:53:00 [facility] Agus Weight 2013-01-16 19:03:00 [facility] Agus Diastolic (mm Hg) 2013-01-16 19:03:00 Mem orial [place] Systolic (mm Hg) 2013-01-16 19:03:00 Abdiel rial [place] Temperature Oral (F) 2013-01-16 19:03:00 98.5 F [facility] [place] Respitory Rate 2013-01-16 19:03:00 Memori al [place] Heart Rate 2013-01-16 19:03:00 [facility] Agus Procedures [...] TIME WITH INR 2019-09-20 17:20:00 Benita Shepherd Denominational PARTIAL THROMBOPLASTIN 2019-09-20 17:20:00 Benita Shepherd Denominational TIME (PTT) BASIC METABOLIC PANEL 2019-09-20 17:20:00 [...] odist ANESTHESIA INTUBATION 2019-09-19 15:59:28 Douglas Gilmore NC AN ELECTIVE 2019-09-19 15:51:07 Douglas Gilmore ENDOTRACHEAL [...] CT POST MYELOGRAM 2019-09-06 12:33:08 Raffi Florian Ar thodist THORACIC CT POST MYELOGRAM LUMBAR 2019-09-06 12:32:32 Raffi Florian IR MYELOGRAM 2+REG INCL 2019-09-06 11:12:24 Raffi Florian INJ W S&I XR LUMBAR SPINE COMPLETE 2019-08-14 11:06:30 Raffi Florian W BENDING XR SPINE SCOLIOSIS 2-3 2019-08-14 11:06:00 Raffi Florian on Denominational VIEWS US CAROTID DUPLEX 2019-06-13 10:00:00 Silvio Sotelo Ar thodist BILATERAL CT ANGIOGRAM ABDOMINAL 2019-06-06 17:02:20 Silvio Sotelo AORTA AND BILATERAL ILIOFEMORAL RUNOFF W WO CONTRAST POC CREATININE 2019-06-06 15:21:00 Jose Moreno ESTIMATED GFR 2019-06-06 15:21:00 Jose Moreno BASIC METABOLIC PANEL 2019-06-06 11:02:00 Silvio Sotelo COPY(IES) SENT TO: 2019-06-06 11:02:00 Silvio Sotelo ethodist COPY RECEIVED FROM: 2019-06-06 11:02:00 Silvio Sotelo ECG 12-LEAD 2019-06-06 09:55:18 Silvio Sotelo Meth odist cholecys <sup>1</sup> [facility] ermann cholecys<sup>1</sup> [facility] Planned Activity Planned Date Details Comments Source Future Scheduled 2019-12-02 INFLUENZA VACCINE Anita Campbell Test 00:00:00 [code = INFLUENZA VACCINE] Future Scheduled 2018 65+ PNEUMOCOCCAL Fredo Campbell Test 00:00:00 VACCINE (1 of 1 - PPSV23) [code = 65+ PNEUMOCOCCAL VACCINE (1 of 1 - PPSV23)] Future Scheduled 2003-12-[address] [facility] thodist Test 00:00:00 SCREENING [code = BREAST CANCER SCREENING] Future Scheduled 2003-12-10 COLONOSCOPY SCREENING Ho alex Denominational Test 00:00:00 [code = COLONOSCOPY SCREENING] Future Scheduled 2003-12-10 SHINGLES VACCINES (#1) H dany Denominational Test 00:00:00 [code = SHINGLES VACCINES (#1)] Future Scheduled 1969 COVID-19 VACCINE (#1) Ho ton Denominational Test 00:00:00 [code = COVID-19 VACCINE (#1)] Encounters Start End Encounter Admission Attending Care Care Encounter Source Date/Time Date/Time Type Type Clinicians Facility Department ID 2019-10-31 2019-10-31 Outpatient Narayan [facility] [id number] 02:06:00 16:58:00 Yung Lerma 2019-10-31 2019-10-31 Outpatient U [facility] [id number] [facility] 02:06:00 02:06:00 2019-10-19 2019-10-19 Outpatient [facility] [id number] [place] 00:00:00 00:00:00 RAFFI [address] 2019-09-19 2019-09-22 Inpatient [facility] [id number] [place] 00:00:00 00:00:00 RAFFI [address] 2019-09-11 2019-09-11 [facility] [id number] [place] 00:00:00 00:00:00 RAFFI [address] 2019-09-11 2019-09-11 Outpatient [facility] [id number] [place] 00:00:00 00:00:00 RAFFI [address] 2019-09-06 2019-09-06 [facility] [id number] [place] 00:00:00 00:00:00 RAFFI [address] 2019-09-06 2019-09-06 [facility] [id number] [place] 00:00:00 00:00:00 RAFFI [address] 2019-09-06 2019-09-06 [facility] [id number] [place] 00:00:00 00:00:00 RAFFI [address] 2019-08-14 2019-08-14 Outpatient FLORIAN, [facility] [id number] [place] 00:00:00 00:00:00 RAFFI 894 [address] [facility] 2019-08-14 2019-08-14 Outpatient FLORIAN, [facility] [id number] [place] 00:00:00 00:00:00 RAFFI 895 [address] [facility] 2019-08-14 2019-08-14 Outpatient FLORIAN, [facility] [id number] [place] 00:00:00 00:00:00 RAFFI 630 [facility] 2019-08-14 2019-08-14 Outpatient FLORIAN, [facility] [id number] [place] 00:00:00 00:00:00 RAFFI 198 [facility] 2019-08-14 2019-08-14 Outpatient FLORIAN, [facility] [id number] [place] 00:00:00 00:00:00 RAFFI [address] [facility] 2019-08-04 2019-08-04 Outpatient ALEJA PalaciosSCHER MHMISCHER [id number] 09:15:00 09:15:00 Felice 10 [facility] 2019-07-28 2019-07-28 [facility] [id number] 17:09:00 23:59:00 Encounter Gila Brown [place] [id number] [place] [id number] [place] [id number] 2019-07-28 2019-07-28 Urgent Pob1, Acute [facility] [id number] 15:30:08 17:04:14 [facility] [id number] [place] 4.2.7.2.686 [facility] [id number] [address]al [address] 2019-07-04 2019-07-04 Outpatient MELISSA, [facility] [id number] [place] 00:00:00 00:00:00 SILVIO 741 [address] 2019-05-05 2019-05-05 Outpatient ALEJA PalaciosSCHER MHMISCHER [id number] 11:45:00 23:59:59 Felice 09 [facility] 2019-03-22 2019-03-22 Outpatient ALEJA PalaciosSCHER MHMISCHER [id number] 11:30:00 23:59:59 Felice 08 [facility] 2019-03-15 2019-03-15 Outpatient Suzanne, MHMISCHER MHMISCHER [id number] 11:15:00 23:59:59 Felice 07 [facility] 2018-12-21 2018-12-21 Outpatient Suzanne, MHMISCHER MHMISCHER [id number] 11:30:00 23:59:59 Felice 06 [facility] 2018-10-19 2018-10-19 Outpatient Suzanne, MHMISCHER MHMISCHER [id number] 11:45:00 23:59:59 Felice 05 [facility] 2018-09-08 2018-09-08 Outpatient Suzanne, MHMISCHER MHMISCHER [id number] 14:30:00 23:59:59 Felice [facility] 2018-08-18 2018-08-19 Outpatient MHMISCHER MHMISCHER [id number] 10:14:00 23:59:59 00 2017-05-06 2017-05-06 Outpatient Linh, [facility] [id number] 12:16:00 22:13:00 Bryan Thurston [place] Results Test Description Test Time Test Comments Results Result Comments Source HEMATOLOGY 2019-10-31 20:36:00 Test Item Value Reference Range Interpretation Comme nts PT (test code = PT) 14.3 s 12.0-14.7 [facility]BSMUZBQAZA3997-28-49 20:36:00 Test Item Value Reference Range Interpretation Comments INR (test code = INR) 1.11 1 0.85-1.17 [facility] CenterDaqabadOPKBXSHGCU5141-25-15 20:36:00 Test Item Value Reference Range Interpretation Comments PTT (test code = PTT) 94.8 s 22.9-35.8 [facility] CenterBjbcjqySLZVQDINAN9425-90-12 14:58:00 Test Item Value Reference Range Interpretation Comments PT (test code = PT) 14.4 s 12.0-14.7 [facility] CenterVedzzuoALYBSXBGVT2033-02-41 14:58:00 Test Item Value Reference Range Interpretation Comments INR (test code = INR) 1.11 1 0.85-1.17 [facility] CenterVqhzqznIPOQWHCNYJ8884-79-63 14:58:00 Test Item Value Reference Range Interpretation Comments PTT (test code = PTT) 86.8 s 22.9-35.8 [facility] VDFWMWA5441-20-45 07:51:00Negative (10/31/19 2:51 AM) [facility] ZNAKT3134-12-91 07:51:0091[facility]annCHEM PANEL 2019-10-31 07:51:0013[facility]annCHEM WKJUG1547-99-66 07:51:000.70[facility]annCHE[facility] XGXKD5025-96-99 07:51:40203Vhxtimax HermannCHEM KFFWI9727-13-88 07:51:004.0[facility]annCHE[facility] ABHXO5802-61-14 07:51:58913Vyekfrmg HermannCHEM IPOSK6961-90-38 07:51:0024[facility]annCHE[facility] NEOIQ3456-24-53 07:51:008.5 [facility] YHCUQ5070-64-56 07:51:006.6[facility]annCHEM PANEL 2019-10-31 07:51:003.0[facility]annCHEM OJVZG7943-20-20 07:51:0016[facility]annCHEM VIEYH9481-41-66 07:51:0020[facility]annCHE[facility] FNLYD4428-72-63 07:51:29859Cngfaqjm HermannCHEM IEUTB0540-36-56 07:51:000.4[facility]annCHEM PTWIY5501-23-48 07:51:0014.0[facility]annCHEM WXASG9063-72-05 07:51:00 Test Item Value Reference Range Interpretation Comments B/C Ratio (test code = B/C Ratio) 19 1 -25 [facility] SHWGR5206-83-41 07:51:003.6[facility]annCHEM PANEL 2019-10-31 07:51:00 Test Item Value Reference Range Interpretation Comments A/G Ratio (test code = A/G Ratio) 0.8 1 0.7-1.6 [facility] QFNLR6356-19-87 07:51:0091[facility] HermannHEMATOLOGY 2019-10-31 07:51:008.0[facility] DqjnsgxYWLGRLXKHN3501-82-29 07:51:003.97[facility] OmwansuAPSBYGGLNU2790-09-30 07:51:0012.5[facility] PelyunjUAGNVTWLSU8623-75-47 07:51:0037.6[facility] PeqdyljMODGVEMXTQ0284-48-85 07:51:0094.8[facility] PPLLKKHYDB2297-30-55 07:51:00 Test Item Value Reference Range Interpretation Comments MCH (test code = MCH) 31.4 pg 27.0-31.0 [facility] MtmfpkhMLQLWTOHWG3709-72-37 07:51:0033.1[facility] HermannHEMATOLOGY 2019-10-31 07:51:0013.0[facility] JiheequKXUWFEDMNV3985-69-04 07:51:78171Dwjvwqhn FqjxynhZFWOTIOVPZ7536-15-12 07:51:008.8[facility] MyfuasuEDCZZREPNB8125-76-55 07:51:00 Test Item Value Reference Range Interpretation Comments PT (test code = PT) 14.2 s 12.0-14.7 Memorial HcdpvehDKZZBAVZQE1732-66-07 07:51:00 Test Item Value Reference Range Interpretation Comments INR (test code = INR) 1.10 1 0.85-1.17 [facility] SuhygkeJJXWNZPOVW2481-16-06 07:51:00 Test Item Value Reference Range Interpretation Comments PTT (test code = PTT) 64.7 s 22.9-35.8 [facility] GmktgabCSTBFVUUQJ2368-60-47 07:51:0063.4[facility]annHEMATOLOGY 2019-10-31 07:51:0026.0[facility]orial JqfujtxSWUBAXHIDA1272-06-22 07:51:008.5[facility] QhevbssDDLBODDKQD3422-99-90 07:51:001.6[facility]orial EwpmsyuATDZVITTUG7693-92-42 07:51:000.5[facility]orial NtqmppvJBQIDCQTTF2856-54-17 07:51:005.1[facility] VKCBIXHQMR3000-03-22 07:51:002.1[facility] CzqiaznXEMEAEWTOQ2885-43-71 07:51:000.7 Memorial JxewlcjQODWEVWIPF0405-01-61 07:51:000.1[facility] HermannSurgical pathology awilmmi5974-68-77 17:07:26 Test Item Value Reference Range Interpretation Comments Case number (test code = [id number]) Surgical pathology See link below for report (test code = PDF Lab Report 2257) Result status (test code This is Final Report = [id number]) for [id number] Fredo BrockG 12 txye0191-66-17 15:18:08 Test Item Value Reference Range Interpretation Comments Ventricular rate (test 88 code = 253) Atrial rate (test code 88 = 255) NC interval (test code 164 = 266) QRSD [...] was found- Fredo Becerra drugs of abuse inmtaq4552-53-00 22:23:33 Test Item Value Reference Interpretation Comments Range Amphetamine screen, Negative urine (test code = 3349-8) Barbiturate screen, Negative urine (test code = 3377-9) Benzodiazepine Negative screen, urine (test code = 3390-2) Cocaine screen, Negative urine (test code = 3397-7) Methadone Negative metabolite (EDDP), urine (test code = 99784-0) Opiates screen, Negative urine (test code = 3879-4) Oxycodone screen, Positive A urine (test code = 01471-7) Phencyclidine Negative screen, urine (test code = 3936-2) Tricyclic screen, Negative urine (test code = 85636-7) Cannabinoid screen, Negative Drug scr een minimum [...] ired. Lab Interpretation Abnormal (test code = 73485-2) Yoo MethodistUrinalysis screen and microscopy, with reflex to culture 2019-09-20 20:48:08 Test Item Value Reference Range Interpretation Comments Specimen site (test code = Clean catch 3175391) Color, UA (test code = 5778-6) Straw Appearance, UA (test code = Clear 5767-9) Specific gravity, UA (test code = 1.003 1.001-1.035 5811-5) pH, UA (test code = 5803-2) 7.0 5.0-8.5 Protein, UA (test code = 74926-7) Negative Negative Glucose, UA (test code = 75582-9) Negative Negative Ketones, UA (test code = 2514-8) Negative Negative Bilirubin, UA (test code = Negative Negative 5770-3) Blood, UA (test code = 5794-3) Negative Negative Nitrite, UA (test code = 5802-4) Negative Negative Urobilinogen, UA (test code = <2.0 <2.0 51222-5) Leukocyte esterase, UA (test code Negative Negative = 5799-2) Epithelial cells, UA (test code = 5 /HPF 5787-7) WBC, UA (test code = 5821-4) 1 0- 4 /HPF RBC, UA (test code = 85738-1) 1 0- 5 /HPF Bacteria, UA (test code = Few None seen 16383-0) Yeast, UA (test code = 66474-8) None seen Yeast with pseudohyphae, UA (test None seen code = 45636-0) Yoo MethodistUrine uiikcqm7023-25-51 20:45:55 Test Item Value Reference Range Interpretation Comments Urine culture (test SEE COMMENT Bacteriu leigh ann screen code = 0869359) negative. Fredo MethodistCT Lumbar Spine Wo Zokblovw9764-42-17 19:17:16Hm Interface, Radiology Results 09/20/2019 7:20 PM [...] canal narrowing.Stable spondylotic foraminal narrowing at L5-S1 bilaterally.[facility]-WPHYRRSHouston MethodistCT Cervical Spine Wo Gjkxaajs3255-71-49 19:13:36Hm Interface, Radiology Results 09/20/2019 7:16 PM [...] of the cervical spine.[facility]-WPHYRRSHouston MethodistAmmonia level 2019-09-20 19:03:26 Test Item Value Reference Range Interpretation Comments Ammonia (test code = 1841-6) 19 umol/L 11-51 [place] MethodistCT Head Wo Bjxxaega4992-53-18 18:49:46Hm Interface, Radiology Results 09/20/2019 6:52 PM [...] air cells are clear.IMPRESSION:No acute intracranial abnormality identified.BOP-[id number] MethodistIonized xsepwtl3140-51-66 18:34:40 Test Item Value Reference Range Interpretation Comments pH (test code = 2753-2) 7.52 Ionized calcium (test code = 1.13 mmol/L 1.11-1.32 ) Yoo IgnrgkzfxHolvrpjj1234-75-70 18:28:56 Test Item Value Reference Range Interpretation Comments Troponin (test code 0.013 ng/mL 0-0.04 In patie nts suspected = 02209-6) of having a alpa cardial infarction, eder [...] decreased by le ss than 0.020 ng/mL [facility] qtxpe8201-57-49 18:27:26 Test Item Value Reference Range Interpretation Comments Sodium (test code = 2951-2) 145 135- 148 mEq/L Potassium (test code = 2823-3) 3.5 3.5- 5.0 mEq/L Chloride (test code = 2075-0) 105 98- 112 mEq/L CO2 (test code = 2027-9) 23 24- 31 mEq/L L Anion gap (test code = 49426-5) 17@ANIO 7- 15 mEq/L H BUN (test code = 3094-0) 9 mg/dL 8-23 Creatinine (test code = 2160-0) 0.76 mg/dL 0.5-0.9 Glucose (test code = 2345-7) 142 mg/dL 65-99 H Calcium (test code = 18598-0) 9.5 mg/dL 8.8-10.2 Lab Interpretation (test code = Abnormal 92013-6) Fredo MethodistMagnesium tgnlb8991-98-92 18:27:26 Test Item Value Reference Range Interpretation Comments Magnesium (test code = 96517-2) 1.8 mg/dL 1.6-2.4 Fredo MethodistEstimated PAM3055-86-37 18:27:25 Test Item Value Reference Range Interpretation Comments Estimated GFR (test 82 mL/min/1.73 m2 [facility] Units code = 5488) InterpretationG 1 >=90 Normal or highG2 60-89 Mildly vwjpjxguvJ6n 45-59 Mildly to mode rately alkbqfjbmI0v 30-44 Moderately to severely decreasedG4 15-29 Severely decre asedG5 <15 Kidn ey failureThe eGFR was calculated adam killian the Chronic Kidney Disease Epidemiology Co llaboration (CKD-EPI) equat ion. Interpretation is based on recommendations of the National Kidney Foundation-Kidn ey Disease Outcomes Qualit y Initiative (NKF-KDOQI) pub lished in 2013. Fredo MethodistPhosphorus vqnrn6070-58-91 18:27:24 Test Item Value Reference Range Interpretation Comments Phosphorus (test code = 2777-1) 2.6 mg/dL 2.4-4.5 Fredo MethodistPartial thromboplastin time, qmmpqozoj1722-09-80 18:15:11 Test Item Value Reference Range Interpretation Comments PTT (test code = 24.7 23.0- 36.0 [place] [address]-2) unfractionated heparin is61.0-112.0 se conds which corresponds to Anti-Xa0.3-0.7 U/ml. Fredo MethodistProthrombin time with NFL6236-27-44 18:13:49 Test Item Value Reference Range Interpretation Comments Prothrombin time (test 13.3 11.5- 14.5 sec code = 5902-2) INR (test code = 1.0 The Interna tional 79367-7) Normalized Rati o (INR) is a therapeutic m onitoring tool for patien ts who are stable on oral anticoagulant t herapy. An INR of 2.0-3.0 is suggested for d eep vein thrombosis/pulm onary embolism. [place] MethodistCBC with platelet and qxnpdmahobfr2867-41-06 18:04:23 Test Item Value Reference Range Interpretation Comments WBC (test code = 86125-6) 13.52 4.50- 11.00 k/uL H RBC (test code = 29564-3) 4.10 m/uL 4.2-5.5 L HGB (test code = 718-7) 12.9 g/dL 12-16 HCT (test code = 4544-3) 39.3 % 37-47 MCV (test code = 787-2) 95.9 fL 82-100 MCH (test code = 785-6) 31.5 pg 27-34 MCHC (test code = 786-4) 32.8 g/dL 31-37 RDW - SD (test code = 42.5 fL 37-55 09129-8) MPV (test code = 86578-8) 10.4 fL 8.8-13.2 Platelet count (test code 229 150- 400 k/uL = 76179-1) Nucleated RBC (test code 0.00 /100 WBC = 09718-0) Neutrophils (test code = 78.5 % 39-69 H 45176-3) Lymphocytes (test code = 11.5 % 25-45 L 94180-8) Monocytes (test code = 9.4 % 0-10 51459-3) Eosinophils (test code = 0.0 % 0-5 65929-0) Basophils (test code = 0.2 % 0-1 16290-5) Immature granulocytes 0.4 % 0-1 "Immat ure (test code = 84447-6) granul ocytes" (promyelocytes, myelocytes, metamyelocytes) Lab Interpretation (test Abnormal code = 43452-2) Yoo MethodistPOC vajzxxr7195-96-25 16:26:11 Test Item Value Reference Range Interpretation Comments POC glucose (test code = 133 mg/dL 65-99 H Ope rator Name: [place] 34816-6) HeidiDevice ID: [id number] able: [facility] Notified c t tech Interpretation (test Abnormal code = 16573-7) Fredo CtcwpnscqPqzpjn8559-41-82 15:59:28Douglas Gilmore MD 09/19/2019 4:00 PMAirwayPerformed by: Douglas Gilmore MDAuthorized by: Douglas Gilmore MD Duplicate noteHousaint vincent hospital RfbfznepcLuhqpw7241-85-52 15:51:07 Douglas Gilmore MD 09/19/2019 3:59 PMAirwayDate/Time: [...] of Attempts at Approach: 2 Fredo MethodistArterial uhjf7018-45-09 15:50:10Douglas Gilmore MD 09/19/2019 3:51 PMArterial linePerformed [...] tolerated the procedure well with no immediate complicationsHousaint vincent hospital MethodistXR Lumbar Spine 1 Rq6351-65-42 15:48:20 Hm Interface, Radiology Results 09/19/2019 3:51 PM CDTEXAMINATION: XR LUMBAR SPINE 1 VWCLINICAL HISTORY: Z98.890 Other specified postprocedural statesCOMPARISON: Lumbar radiograph 08/14/2019IMPRESSION:Single lateral intraoperative radiograph of the lumbar spine in bone and soft tissue filters demonstrates a posterior approach surgical instrument tip directed towards the L4-L5 level with tip projecting along the inferior aspect of the L4 spinous process.[id number]-[id number] MethodistCOVID BioRef (NCOVB)2019-09-13 13:20:03 Test Item Value Reference Range Interpretation Comments COVID BioRef Not Detected Not Detected Source Nasophar yngeal (NCOVB) SwabTesting per formed at (test code = Bioreference [facility] 41 [address]2061-7) [place] [address] NOTE: Ple ase consider re-collection o f a new specimen, if cl inically indicated. NOTE : The COVID-19 assay has been cleared by the U.S. Food and DrugAdministrat ion under the Emergency Use A uthorization (EUA). [facility] is designated as a high complexity [...] under the Emergency Use A uthorization (EUA). [facility] is designated as a high complexi ty laboratory by the Clinical Laboratory Improvement Nina ndments of 1987(CLIA) and is qualified to perform this te st. ASSAY INFORMATION: Re al Time RT-PCR (Reported 09/12 12:29) [place] MethodistComprehensive metabolic vdvsd0358-48-65 13:47:39 Test Item Value Reference Range Interpretation Comments Sodium (test code = 142 135- 148 mEq/L 2951-2) Potassium (test code = 4.0 3.5- 5.0 mEq/L 2823-3) Chloride (test code = 100 98- 112 mEq/L 2075-0) CO2 (test code = 2027-9) 26 24- 31 mEq/L Anion gap (test code = 16@ANIO 7- 15 mEq/L H 66732-7) BUN (test code = 3094-0) 26 mg/dL 8-23 H Creatinine (test code = 0.90 mg/dL 0.5-0.9 2160-0) Glucose (test code = 111 mg/dL 65-99 H 2345-7) Calcium (test code = 10.5 mg/dL 8.8-10.2 H 33522-6) Protein (test code = 7.6 g/dL 6.3-8.3 -[place] n 2885-2) 4.6-7.0 g/dL1 week 4.4-7 .6 g/dL7 months-1y ear 5.1-7 .3 g/dL1-2 years 5.6-7 .5 g/dL>3 years 6.0-8 .0 g/rA60-381 6.3-8 .3 g/dL Albumin (test code = 4.0 g/dL 3.5-5 1751-7) A/G ratio (test code = 1.1 0.7-3.8 1759-0) Alkaline phosphatase 82 U/L 35-104 (test code = 6768-6) AST (test code = 1920-8) 20 U/L 10-35 ALT (test code = 1742-6) 17 U/L 5-50 Total bilirubin (test 0.3 mg/dL 0-1.2 code = 1975-2) Lab Interpretation (test Abnormal code = 08840-9) [place] MethodistIR Myelogram 2+Reg Incl Inj W S&M9836-36-78 14:46:39Hm Interface, Radiology Results 09/08/2019 2:49 PM [...] abnormalities.Mild blunting of the left C6 root sleeve.[facility]-2AO8720PUUWqlldwi MethodistCT Post Myelogram Leeidwyy5402-35-80 12:41:37Hm Interface, Radiology Results 09/06/2019 12:44 PM [...] correlation for right C6 radiculopathy is recommended. [facility]-[id number] MethodistCT Post Myelogram Sxtxdl9127-45-81 12:39:59Addendum by Ally Leong MD on 09/06/2019 [...] impingement on the right L3 nerve root. [facility]-[id number] MethodistXR Lumbar Spine Complete W Flex and Fso7272-25-72 11:34:25Hm Interface, Radiology Results 08/14/2019 11:37 AM [...] the right upper quadrant.IMPRESSION:Degenerative changes without acute abnormality.[facility]- [id number] and approved by residential remodeling subcontractor/fellow: Aaron Garcia, Marilyn Charles MD, personally reviewed the images and resident' s/fellow's findings and agree with the final report.[place] Methodtuba city regional health care corporationXR Spine Scoliosos 2-3 Xvbyi0081-65-23 11:11:25Hm Interface, Radiology Results 08/14/2019 11:14 AM [...] anterior plate and screw fixation and interbody graft.[id number] Denominational COPY(IES) SENT TO:2019-06-07 05:40:00Copies/mLComment: TEVIN CARRASCO CARDIO [address] [facility] [address] [place] [address] [facility] MethodistCOPY RECEIVED FROM:2019-06-07 05:40:00Copy received from:Comment: TEVIN CARRASCO [address] [place] [address] [facility] WxhfsrlaoUJTATANFGN7257-11-28 18:52:002 Memorial TddtsrdKXIFANMYFO5107-24-48 18:52:34010.20[facility] HermannHEMATOLOGY 2019-03-15 18:52:0062.60Memorial PajfoeyJNHCPJKYOG9340-35-02 18:52:009[facility]orial LximchmLMPJCONSUU9983-77-42 18:52:00 Test Item Value Reference Range Interpretation Comments Varicella IgM (test code = Varicella 0.69 1 IgM) [facility] HermannURINE AND IXFQB4496-28-72 21:21:00Negative (05/06/17 3:21 PM) [facility] AND UWUSM1874-05-75 21:21:00Negative (05/06/17 3:21 PM) [facility] AND OOQWG5652-17-89 21:21:00Negative *NA*(05/06/17 3:21 PM) [facility] AND KUWPR7137-78-90 21:21:00Negative (05/06/17 3:21 PM) [facility] AND NQLZU1054-39-26 21:21:001[facility] HermannURINE AND AOXTB6846-65-03 21:21:002[facility] HermannURINE AND MVNDC9881-33-14 21:21:00 Yellow *NA*(05/06/17 3:21 PM)[facility]annURINE AND BRAMM3483-33-83 21:21:00 1.019[facility] HermannURINE AND FAUAL5315-45-48 21:21:005.0[facility]annURINE AND KAONN8123-69-55 21:21:00Slight *ABN*(05/06/17 3:21 PM)Mem[facility] HermannCHEM GQRDX8969-94-36 20:57:67838Aahppuss HermannCHEM RZMSJ1735-53-96 20:57:0042 Memorial UlgahuqUMHPKEONZBPQ1699-73-34 20:57:46433Gxenpgma HermannELECTROLYTES 2017-05-06 20:57:55698Euzdhsdh KrgngfjWKFAWAHNQKQM2116-36-50 20:57:004.0Memorial ApdtbaqTOHJTKBHOLSD7909-25-26 20:57:0041Memorial IqrscbuHBCKJTCOPRWP1669-80-07 20:57:000.7Memorial KzzhvzePITMCLRMDWVN4906-73-72 20:57:0082[facility] WIMCTFGKOGIB1353-43-86 20:57:001.0Memorial VrtgnjsKDNMZUBRNJYK9865-73-11 20:57:0019Memorial CflhaxmJUTDIHANMSLN4520-90-59 20:57:0015[facility] BHWJEXZCSOOT9868-55-54 20:57:004.1Memorial NhmlakqQNJCZYCKQEIR4334-57-58 20:57:004.3Memorial EagxixqFDLLJWYYEWTF3849-76-57 20:57:0018[facility] BYFWKAKCPYFV2052-89-46 20:57:009.4Memorial AfepibwBDWLLEVZOZFA4559-07-48 20:57:008.4Memorial WceynfkJLUFMGQKZPBB6677-53-24 20:57:0027[facility] AMOZFJCFPIGD6877-97-15 20:57:0016.0Memorial DoklgtgPUHDUEALRMHJ8366-24-50 20:57:001.36Memorial RuovsruSUWCVLHEYRJS6104-75-91 20:57:0024[facility] DEIFIGJWYBCX2619-99-29 20:57:0077Memorial ZpqrfzwKXLQBSMPRZ6211-73-40 20:57:00 2.3Memorial LthcpzgMSPTOYDMZN2395-31-34 20:57:000.8[facility] HermannHEMATOLOGY 2017-05-06 20:57:000.2Memorial UukwfamZZUKZYFTEJ5950-74-07 20:57:000.4Memorial FkrbjodIQOAQWHKXI7544-24-05 20:57:006.4Memorial LryhnoaRPLFCXGJPV6218-31-89 20:57:0024.4Memorial GhvcmbiSJPBSRKDEL2512-91-33 20:57:008.1[facility] KBVLLVPDMA2634-38-49 20:57:0066.9Memorial CzvddwfHNRUZVJGWS4286-72-69 20:57:00 8.4Memorial FmyatenHZVBIPJHPX1538-64-92 20:57:75661Vetrcctz HermannHEMATOLOGY 2017-05-06 20:57:00 Test Item Value Reference Range Interpretation Comments MCH (test code = MCH) 32.4 pg 27.0-31.0 Memorial UljghiiCBDBTZUZNJ9206-11-72 20:57:0012.5[facility] HermannHEMATOLOGY 2017-05-06 20:57:0091.5[facility] MfsiaucARCNUVDFTA9615-24-08 20:57:0035.4[facility] KgkwpfpGGFKKOAHTY9163-40-11 20:57:0042.5[facility] QjrvwalYJIOUPMMFN8837-60-95 20:57:009.6[facility] DqocjaoQVTICOKCZS0193-30-78 20:57:0015.1[facility] AJKSVLOSMC8820-80-92 20:57:004.65[facility] NbuuvdrGCQUMPQBW1417-47-09 05:00:0095 [facility] NafbcsgJONLDVFWF9528-81-12 05:00:0012.9[facility] HermannCHEMISTRY 2013-01-23 05:00:008.5[facility] YkosjyrHAOEMHTGM8995-31-83 05:00:0075[facility] KfuuwgkEYGJBWUGW3228-43-06 05:00:0028[facility] InvzxufMJONZZAVN5745-44-98 05:00:52806Ojubscqv FgpkswjSMYFDOXZB9930-72-38 05:00:003.9[facility] DTZDTFCUB3832-90-91 05:00:005[facility] AjnhezcYFPMZAOZO1959-92-37 05:00:000.7 [facility] NttykrpJUUVIXEML9434-52-81 05:00:33974Rpbewjxa HermannHEMATOLOGY 2013-01-23 05:00:008.4[facility] QdhrehtWQDCNGRZRM1201-20-48 05:00:003.95[facility] NfwdatfXRTYEEORNJ6484-62-06 05:00:005.7[facility] QouwsopHECPCCMOCZ1459-27-90 05:00:00 Test Item Value Reference Range Interpretation Comments MCH (test code = MCH) 33.0 pg 27.0-31.0 H [facility] JxcaukiKXNYSTQQBT6184-45-88 05:00:0037.4[facility] HermannHEMATOLOGY 2013-01-23 05:00:0013.0[facility] HtkwkfhIHQZTONWUU3981-70-23 05:00:0094.8[facility] BsvcwjzZCMAUMKTFU2215-12-59 05:00:0012.6[facility] RiqijghNQZHDWJCBC1549-75-75 05:00:0034.8[facility] LeiuwnuLXZIWDXJZH0315-96-77 05:00:08384Hpnnmdbo [place] BGGCHQUFZX6999-08-21 05:00:0050.9[facility] SikjfjdZQOEYWIVAD7821-95-82 05:00:00 36.5[facility] EilbfkuTMOXCKIRXM6235-01-53 05:00:0010.0[facility]annHEMATOLOGY 2013-01-23 05:00:000.6[facility] FgatwuyLQLZFAVIYO0327-49-77 05:00:000.1[facility] JyyjfycXZQHWMFOYR4689-78-43 05:00:002.9[facility] ZyhhqjdQIBWXLIFVG2473-74-86 05:00:002.1[facility] IxvrlddPZDBJZWMMF0035-33-89 05:00:002.2[facility] [place] RPWKKBWSTT3378-09-69 05:00:000.4[facility] SmrfkktSAZDWLTPQ7027-62-82 08:45:38508 [facility] DwjkooxHSCKKNBLQ6018-80-04 08:45:003.1[facility] HermannCHEMISTRY 2013-01-22 08:45:001.0[facility] VqzpfylNDLNOXXQD2877-75-70 08:45:004[facility] EzlbphdXMPISIPLF1075-78-28 08:45:0011.9[facility] JttfhuuEVVXBWOFV0946-81-37 08:45:0095[facility] RqbxzznJJLGWBUSK3147-72-67 08:45:0016[facility] MONTGBNNM4165-06-55 08:45:0026[facility] DgcqjdeTNBIJJVXB0437-48-38 08:45:008.0 [facility] DfkugjyMKBUBMEJS3841-29-57 08:45:006.1[facility] HermannCHEMISTRY 2013-01-22 08:45:000.5[facility] EpaqrfkLVBJIEBXW0494-72-93 08:45:000.7[facility] CssjeviXYCCICBQK1840-57-37 08:45:06307Hpmyhzdq AlcvvdqCCGXFIVLF1843-70-46 08:45:86207Apjxvmqq AsundhgERRJGVSVR9670-13-83 08:45:003.9[facility] MCOCRDBOE5129-92-47 08:45:0020[facility] KvwzqxeLEFGDHBZE1152-38-78 08:45:003 [facility] ThapjfeYROOBPUWR4652-38-19 08:45:03718Iplwfdkh HermannCHEMISTRY 2013-01-22 08:45:0074[facility] AhypyamCDCMETEMX2438-04-19 08:45:003.0[facility] TtdjnrmUPYLBBCJKG0875-95-85 08:45:000.1[facility] UdiivhrNBALKDZGOI7302-24-06 08:45:000.3[facility] OajnvajEJKNHJYCKW5608-23-80 08:45:002.8[facility] XEPXWYBEWM6242-19-07 08:45:002.0[facility] OgxqwgfRGYDRRIUFH6939-25-55 08:45:000.6 [facility] GjgkfvhDIICAXTCRY8641-46-79 08:45:0035.5[facility] HermannHEMATOLOGY 2013-01-22 08:45:0011.0[facility] GkccrjqQIKKLPUBGH7159-69-06 08:45:002.1[facility] FzgzkuoAKMAJYRMKK6056-57-41 08:45:0051.1[facility] DlotdxeVKISQHGAND7624-52-13 08:45:0015[facility] BlghcugDYWZMOSTOI2549-51-46 08:45:0034.6[facility] UQVYRNOYUA8387-30-67 08:45:00 Test Item Value Reference Range Interpretation Comments MCH (test code = MCH) 32.8 pg 27.0-31.0 H [facility] WxdrhxpGKUBHUYDPA9817-00-38 08:45:0012.3[facility] HermannHEMATOLOGY 2013-01-22 08:45:008.2[facility] JzttnqzLVBDVKWKCB2644-87-17 08:45:27475Qliypjeu UtiujwnILDXTXOJAQ6550-15-77 08:45:003.63[facility] VwfqociBBBZMAWOIE4788-80-96 08:45:005.5[facility] MsdbqhzNZTGYYLJDB0912-51-84 08:45:0011.9[facility] VYZWFVRSAV9969-63-32 08:45:0034.5[facility] KtllsvaNWLFGXBCZA4048-78-18 08:45:00 94.9[facility] HermannTUMOR CWNDLVC1145-18-78 08:45:007.0[facility] HermannCHEMISTRY 2013-01-21 16:51:550.9[facility] IfkpzpkYNEFFPQEK7829-19-88 16:51:0095[facility] LiqhcmmYLPVFCSOZ3749-08-86 16:51:004.1[facility] DqzawhtHUDOTHRDG6548-85-61 16:51:73908Zsmaxwro XrlcumiQNHLZKZNO7377-04-45 16:51:34108Mjdrbndj [place] IJHOQKFBW5903-05-37 16:51:45232Yjzecnov YweftgfJPCIBRKCC7100-30-37 16:51:007 [facility] XpqvpfmVSBSVZVFP0417-74-89 16:51:0025[facility] HermannCHEMISTRY 2013-01-21 16:51:008.2[facility] GlhrsuvRFTZEHNTT4655-12-02 16:51:000.7[facility] TvyzzukEZUVBQTYQ6299-62-57 16:51:0012.1[facility] WnprvshHBJFMHYRC7357-84-95 16:51:001.38[facility] NrphoosQZWIQJSUR1650-10-34 07:55:001.8[facility] BRKDMHCNT4240-18-64 07:55:38020Ylchhvsr NetikgdVVRZBABOE8798-80-95 07:55:0066 [facility] QrryktuWOYVHLJNQ1234-58-17 07:55:0018[facility] HermannCHEMISTRY 2013-01-21 07:55:002.9[facility] YcfsbmaCFMDJALNM2569-01-55 07:55:0024[facility] XosctwqYZXWROCNA2537-36-41 07:55:000.7[facility] LanjfwzYTFFFXBFM2050-32-86 07:55:005.7[facility] GbimstfLLNZZRIAG3382-68-18 07:55:0022[facility] SGSULDCGF9332-69-65 07:55:001.0[facility] KcdesaqWXUPGXFWN7256-77-25 07:55:002.8 [facility] VeoqfpdDCOJPENSBD3432-98-34 07:55:008.6[facility] HermannHEMATOLOGY 2013-01-21 07:55:0023.8[facility] FqbpwetBWGCEPGDSZ7788-96-63 07:55:000.6[facility] LpolbbdPZVNPPGOJY6440-04-68 07:55:0066.4[facility] LcjptotHXSQLLNYHK6728-95-70 07:55:000.8[facility] FzqgrfqMCLJDYJKQN8839-77-74 07:55:002.1[facility] KNWECNNNPC5434-50-64 07:55:000.6[facility] TxnvepvSYSBJABHOA8089-97-21 07:55:005.9 [facility] ZtfrrryEGAGYRKDAD1765-32-97 07:55:000.1[facility] HermannHEMATOLOGY 2013-01-21 07:55:000.1[facility] SzjikdgXUQAQGJFDZ3705-64-22 07:55:0012.7[facility] VddcfltWPAHMNNMKN4460-94-13 07:55:0034.1[facility] UbbxompBFBQGJJFVI7057-44-66 07:55:0095.7[facility] WikjymhVNYSBFJDET8115-73-07 07:55:0011.5[facility] PNOHVXDYAF2641-92-27 07:55:0033.6[facility] EodvkmeUDSHQWYZLF8492-75-65 07:55:00 Test Item Value Reference Range Interpretation Comments MCH (test code = MCH) 32.6 pg 27.0-31.0 H [facility] JtpzjssMJPDVYLBXI1260-41-43 07:55:008.5[facility] HermannHEMATOLOGY 2013-01-21 07:55:36222Dbppavxf BtgtrvgCRSYHNYRIB0265-77-22 07:55:003.52[facility] YsekvxnSFOBYGMWWS7417-85-01 07:55:008.9[facility] ZwctlppZDWGPATJSH5133-56-73 04:30:05Performed (01/19/2013 23:30:05)[facility] CprvmevIUWNAHGEJX0310-34-48 04:30:05None Seen (01/19/2013 23:30:05)[facility]GCODMHGST8559[facility]56-49 04:30:05Few /LPF (01/19/2013 23:30:05)[facility] VyxswjxVEMASSGULM0761-68-87 04:30:05None Seen (01/19/2013 23:30:05)[facility] IxpgjmrIPOZWWCDAQ0109-22-56 04:30:05Negative (01/19/2013 23:30:05)[facility] RdabspqMZZKCCJVNP3097-62-64 04:30:050.2[facility] LxqpynhQHWPFLHWTA4888-26-57 04:30:05Negative *NA*(01/19/2013 23:30:05)[facility]CbnvcxzFFAQFXGZON8866-01-87 04:30:05Negative (01/19/2013 23:30:05)[facility] KlywmqxJETVMEDSMS3229-13-54 04:30:05Negative (01/19/2013 23:30:05)[facility] SouthIncqbapCXKMCQTSMZ7950-46-06 04:30:05Negative mg/dL (01/19/2013 23:30:05)[facility] SouthIzcnijzJROKWLYZQG3760-70-69 04:30:05Negative mg/dL *NA*(01/19/2013 23:30:05)[facility] SouthZdgkxilFWNKRCJHWH7071-47-33 04:30:05 Test Item Value Reference Range Interpretation Comments UA pH (test code = UA pH) 8.0 1 5.0-8.0 N [facility] QllaziaLTLCNCMHNT3530-48-19 04:30:05Negative mg/dL (01/19/2013 23:30:05)[facility] OmvjysjDIFLMISXZY0351-73-95 04:30:05Clear (01/19/2013 23:30:05)[facility] SouthAdffqafRDZVKNJQAK9570-45-50 04:30:05 Test Item Value Reference Range Interpretation Comments UA Spec Grav (test code = UA Spec 1.015 1 N Grav) [facility] BtptlwzRREGVHYIFC8355-13-32 04:30:05Yellow *NA*(01/19/2013 23:30:05) [facility] KgqzrbgTMRPYXEWY1059-46-13 03:30:56063Pyzysghi HermannCHEMISTRY 2013-01-20 03:30:007.3[facility] OeriyjtJITQMPKKJ1031-35-77 03:30:000.5[facility] QxdonwgCVTPSISAV7218-89-19 03:30:003.8[facility] ZjbgwqjRHUMUNKGD2209-44-48 03:30:0030[facility] KboystePODITHXQW0586-86-07 03:30:0081[facility] VEJLUAUCV6979-66-86 03:30:000.1[facility] CaawhmiGQISHKQTC7578-99-71 03:30:0023 [facility] JuloxlhFWKZEVWOQ6149-05-78 03:30:003.5[facility] HermannCHEMISTRY 2013-01-20 03:30:001.1[facility] NimcamuWRUXELQBB4456-70-89 03:30:000.4[facility] NoeqpxvGBCFHMUGKY3328-89-68 03:30:000.1[facility]
[2020-04-29] MEDS ORDERED: NA CHLORIDE 0.9% 1,000 ML ONE (07:21)
[2020-04-29 07:25] LABS: Absolute Lymphocytes (CBC) 1.9 K/uL (0.7-4.9); Basophils % 1.1 % (0-1.3); Hematocrit 40.4 % (36.0-45.0); Lymphocytes % 37.9 % (15.3-44.8); MPV 8.2 fL (7.6-11.3); RBC Red Blood Cell Count 4.46 M/uL (3.86-4.86)
[2020-04-29 07:26] LABS: Protime INR 1.43
[2020-04-29 07:41] LABS: ALT/SGPT 17 U/L (12-78); AST/SGOT 13 U/L (15-37); Alkaline Phosphatase 91 U/L (45-117); BUN Blood Urea Nitrogen 15 mg/dL (7-18); Bicarbonate 29 mmol/L (21-32); Bilirubin Direct < 0.1 mg/dL (0-0.2); Bilirubin Total 0.3 mg/dL (0.2-1.0); Glucose Level 111 mg/dL (74-106); Magnesium 2.2 mg/dL (1.8-2.4); NT PRO-BNP 84 pg/mL (<125); Potassium 3.7 mmol/L (3.5-5.1); Protein, Total 7.6 g/dL (6.4-8.2); Sodium Level 142 mmol/L (136-145); Troponin (Emerg Dept Use Only) < 0.02 ng/mL (0.0-0.045)
[2020-04-29] MEDS ORDERED: MEPERIDINE HCL 50 MG/ML ONE ×2 (08:07→08:49)
--- NOTE | 2020-04-29 08:17 | RAD REPORT ---
EXAM DESCRIPTION: CT - Head Brain Wo Cont - 04/29/2020 7:40 am CLINICAL HISTORY: HEADACHE Headache, drowsiness COMPARISON: Head Brain Wo Cont dated 01/26/2018; SINUS W O CONTRAST dated 01/21/2012 TECHNIQUE: All CT scans are performed using dose optimization technique as appropriate and may inclu de automated exposure control or mA/KV adjustment according to patient size. FINDINGS: No intracranial hemorrhage, hydrocephalus or extra-axial fluid collection.Mild periventric ular and deep white matter chronic microvascular ischemia.No areas of brain edema or evidence of midl ine shift. The paranasal sinuses and mastoids are clear. The calvarium is intact. IMPRESSION: No acute intracranial abnormality.
[2020-04-29] MEDS ORDERED: LIDOCAINE VISCOUS 2% SOLN 15 ML UDC ONE (08:49)
[2020-04-29] MEDS ORDERED: MAGNES/ALUMIN/SIMET 30ML UCUP ONE (08:49)
--- NOTE | 2020-04-29 08:51 | RAD REPORT ---
EXAM DESCRIPTION: RAD - Chest Single View - 04/29/2020 7:06 am CLINICAL HISTORY: CHEST PAIN Chest pain. COMPARISON: Chest Single View dated 11/16/2019; Chest Single View dated 11/04/2019; Chest Single View d ated 11/02/2019; Chest Single View dated 10/30/2019 FINDINGS: Portable technique limits examination quality. The lungs are grossly clear. The heart is normal in size. No displaced fractures.Cervical hardware pl ate. IMPRESSION: No acute intrathoracic process suspected.
--- NOTE | 2020-04-29 09:00 | ER ---
Nurse's Notes [facility] Name: Haley Porter Age: 64 yrs Sex: Female : 1955 Arrival Date: 04/29/2020 Time: 06:28 Bed 18 Private MD: Rob Alonzo Diagnosis: Dysphagia;Headache Presentation: 04/29 06:40 Acuity: RADHA 3 ll2 06:40 Coronavirus screen: Client denies travel out of the [place] in the last 14 days. At this ll2 time, the client does not indicate any symptoms associated with coronavirus-19. Ebola Screen: Patient negative for fever greater than or equal to 101.5 degrees Fahrenheit, and additional compatible Ebola Virus Disease symptoms. Initial Sepsis Screen: Does the patient meet any 2 criteria? No. Patient's initial sepsis screen is negative. Does the patient have a suspected source of infection? No. Patient's initial sepsis screen is negative. Risk Assessment: Do you want to hurt yourself or someone else? Patient reports no desire to harm self or others. Onset of symptoms was December 02, 2019. 06:40 Method Of Arrival: Ambulatory ll2 06:49 Chief complaint: Patient states: worse headache and chest pain jhon ever had. states hx ll2 of blood clots in lungs in November of 2019 and prior back surgery. also has a sensation of unable to swallow in throat. Triage Assessment: 07:02 Headache History: The patient has had previous headaches and this one is less severe ll2 than previous episodes. General: Appears distressed, uncomfortable, Behavior is anxious, crying. Pain: Complains of pain in forehead Pain currently is 10 out of 10 on a pain scale. Pain began 3 hours ago. Also complains of no other associated symptoms. Neuro: Level of Consciousness is awake, alert, obeys commands, Oriented to person, place, time, situation. Historical: - Allergies: 07:02 Morphine; ll2 07:02 Oral steroids; ll2 07:02 Valium; ll2 07:02 Versed; ll2 07:02 Metoclopramide; ll2 07:02 Singulair; ll2 - Home Meds: 07:02 pregabalin Oral [Active]; Eliquis 5 mg Oral tab 2 times per day [Active]; clorazepate ll2 dipotassium 7.5 mg Oral tab 1 tab daily [Active]; clorazepate dipotassium 7.5 mg oral tab 2 times per day [Active]; quinapril 20 mg Oral tab 1 tab once daily [Active]; omeprazole 20 mg Oral TbEC daily [Active]; oxycodone-acetaminophen 10-325 mg Oral tab 1 tab every 6 hours [Active]; - Immunization history:: Adult Immunizations not up to date. - Social history:: Smoking status: Patient denies any tobacco usage or history of. Screenin:04 Abuse screen: Denies threats or abuse. Nutritional screening: No deficits noted. ll2 Tuberculosis screening: No symptoms or risk factors identified. Fall Risk None identified. Assessment: 07:00 General: Appears in no apparent distress. uncomfortable, Behavior is cooperative, jl7 anxious, crying. Pain: Complains of pain in forehead Pain currently is 10 out of 10 on a pain scale. Neuro: Level of Consciousness is awake, alert, obeys commands, Oriented to person, place, time, situation, Moves all extremities. Full function Gait is steady, Speech is normal, Facial symmetry appears normal. Cardiovascular: Patient's skin is warm and dry. Respiratory: Airway is patent Respiratory effort is even, unlabored, Respiratory pattern is regular, symmetrical. EENT: Throat is clear. Derm: Skin is pink, warm \T\ dry. 08:00 Reassessment: Patient appears in no apparent distress at this time. No changes from [facility] previously documented assessment. Patient and/or family updated on plan of care and expected duration. Pain level reassessed. Patient is alert, oriented x 3, equal unlabored respirations, skin warm/dry/pink. 09:00 Reassessment: Patient appears in no apparent distress at this time. No changes from 7 previously documented assessment. Patient and/or family updated on plan of care and expected duration. Pain level reassessed. Patient is alert, oriented x 3, equal unlabored respirations, skin warm/dry/pink. 09:10 Reassessment: Dr. Greenberg at bedside discussing results and POC. [facility] Vital Signs: 06:40 BP 146 / 71; Pulse 80; Resp 20; Temp 98.3; Pulse Ox 100% on R/A; ll2 07:02 BP 146 / 71; Pulse 80; Resp 20; Temp 98.3; Pulse Ox 100% on R/A; ll2 08:00 BP 145 / 68; Pulse 63; Resp 17; Pulse Ox 100% ; jl7 Arvind Coma Score: 07:25 Eye Response: spontaneous(4). Verbal Response: oriented(5). Motor Response: obeys rn commands(6). Total: 15. ED Course: 06:28 Patient arrived in ED. am2 06:29 Rob Alonzo MD is Private Physician. am2 06:49 Cassandra Porter, TRAV is Primary Nurse. ll2 06:54 Triage completed. ll2 06:57 Primary Nurse role handed off by Cassandra Porter RN jl7 06:57 Sam Enriquez RN is Primary Nurse. jl7 07:00 Masoud Greco MD is Attending Physician. tw4 07:02 Arm band placed on right wrist. ll2 07:04 Patient has correct armband on for positive identification. Bed in low position. Call ll2 light in reach. Side rails up X 1. Report given to TRAV Vargas. groundwater monitoring technician on. Pulse ox on. 07:05 XRAY Chest (1 view) In Process Unspecified. EDMS 07:10 Attending Physician role handed off by Masoud Greco MD rn 07:10 Jatin Greenberg MD is Attending Physician. rn 07:18 Initial lab(s) drawn, by ar, sent to lab. Inserted saline lock: 22 gauge in right ll2 antecubital area, using aseptic technique. Blood collected. 07:41 CT Head Brain wo Cont In Process Unspecified. EDMS 07:49 Report received from TRAV Trujillo. jl7 09:24 No provider procedures requiring assistance completed. IV discontinued, intact, jl7 bleeding controlled, No redness/swelling at site. Pressure dressing applied. Administered Medications: 07:18 Drug: NS 0.9% 1000 ml Route: IV; Rate: 1 bolus; Site: right antecubital; ll2 08:50 Follow up: Response: No adverse reaction; IV Status: Completed infusion; IV Intake: jl7 1000ml 07:55 Drug: Demerol 50 mg Route: IVP; Site: right antecubital; jl7 08:20 Follow up: Response: No adverse reaction; Pain is unchanged, physician notified jl7 08:35 Drug: Demerol 50 mg Route: IVP; Site: right antecubital; jl7 09:00 Follow up: Response: No adverse reaction; Pain is unchanged, physician notified jl7 Intake: 08:50 IV: 1000ml; Total: 1000ml. jl7 Outcome: 08:58 Discharge ordered by . rn 09:24 Discharged to home via wheelchair, with family. jl7 09:24 Condition: stable 09:24 Discharge instructions given to patient, Instructed on discharge instructions, follow up and referral plans. Demonstrated understanding of instructions, follow-up care. 09:26 Patient left the ED. jl7 Signatures: Dispatcher [employer] EDJatin Ryan MD MD rn Leal, Jahala RN RN jl7 Mila Bermeo Terrence, MD MD tw4 Cassandra Porter RN RN ll2
--- NOTE | 2020-04-29 09:00 | EDPHYS ---
Physician Documentation [facility] Name: Haley Porter Age: 64 yrs Sex: Female : 1955 Arrival Date: 04/29/2020 Time: 06:28 Bed 18 Private MD: Rob Alonzo ED Physician Jatin Greenberg HPI: 04/29 07:00 This 64 yrs old Female presents to ER via Ambulatory with complaints of tw4 Headache, Worst Ever, Throat pain, Chest Pressure. 07:00 The patient complains of pain to the forehead. The patient describes the headache as a tw4 pressure. Onset: The symptoms/episode began/occurred 1 month(s) ago, and became worse today. Associated signs and symptoms: Pertinent positives: chest pain. Severity of symptoms: At its worst the pain was moderate, in the emergency department the pain is unchanged. Headache History: The patient has had previous headaches and this one is similar to previous episodes. The symptoms are alleviated by. The patient has not experienced similar symptoms in the past. Historical: - Allergies: 07:02 Morphine; ll2 07:02 Oral steroids; ll2 07:02 Valium; ll2 07:02 Versed; ll2 07:02 Metoclopramide; ll2 07:02 Singulair; ll2 - Home Meds: 07:02 pregabalin Oral [Active]; Eliquis 5 mg Oral tab 2 times per day [Active]; clorazepate ll2 dipotassium 7.5 mg Oral tab 1 tab daily [Active]; clorazepate dipotassium 7.5 mg oral tab 2 times per day [Active]; quinapril 20 mg Oral tab 1 tab once daily [Active]; omeprazole 20 mg Oral TbEC daily [Active]; oxycodone-acetaminophen 10-325 mg Oral tab 1 tab every 6 hours [Active]; - Immunization history:: Adult Immunizations not up to date. - Social history:: Smoking status: Patient denies any tobacco usage or history of. ROS: 07:00 Constitutional: Negative for fever, chills, and weight loss, Eyes: Negative for injury, tw4 pain, redness, and discharge, Neck: Negative for injury, pain, and swelling, Respiratory: Negative for shortness of breath, cough, wheezing, and pleuritic chest pain, Abdomen/GI: Negative for abdominal pain, nausea, vomiting, diarrhea, and constipation, Back: Negative for injury and pain, MS/Extremity: Negative for injury and deformity, Skin: Negative for injury, rash, and discoloration. 07:00 Cardiovascular: Positive for chest pain, CP with swallowing. 07:00 Neuro: Positive for headache. Exam: 07:00 Head/Face: Normocephalic, atraumatic. Eyes: Pupils equal round and reactive to light, tw4 extra-ocular motions intact. Lids and lashes normal. Conjunctiva and sclera are non-icteric and not injected. Cornea within normal limits. Periorbital areas with no swelling, redness, or edema. Chest/axilla: Normal chest wall appearance and motion. Nontender with no deformity. No lesions are appreciated. Cardiovascular: Regular rate and rhythm with a normal S1 and S2. No gallops, murmurs, or rubs. Normal PMI, no JVD. No pulse deficits. Respiratory: Lungs have equal breath sounds bilaterally, clear to auscultation and percussion. No rales, rhonchi or wheezes noted. No increased work of breathing, no retractions or nasal flaring. Abdomen/GI: Soft, non-tender, with normal bowel sounds. No distension or tympany. No guarding or rebound. No evidence of tenderness throughout. Back: No spinal tenderness. No costovertebral tenderness. Full range of motion. Skin: Warm, dry with normal turgor. Normal color with no rashes, no lesions, and no evidence of cellulitis. MS/ Extremity: Pulses equal, no cyanosis. Neurovascular intact. Full, normal range of motion. Neuro: Awake and alert, GCS 15, oriented to person, place, time, and situation. Cranial nerves II-XII grossly intact. Motor strength 5/5 in all extremities. Sensory grossly intact. Cerebellar exam normal. Normal gait. 07:00 Constitutional: The patient appears alert, anxious. 07:00 Psych: Behavior/mood is anxious, Affect is animated, Oriented to person, place, time, Patient has no thoughts/intents to harm self or others. Vital Signs: 06:40 BP 146 / 71; Pulse 80; Resp 20; Temp 98.3; Pulse Ox 100% on R/A; ll2 07:02 BP 146 / 71; Pulse 80; Resp 20; Temp 98.3; Pulse Ox 100% on R/A; ll2 08:00 BP 145 / 68; Pulse 63; Resp 17; Pulse Ox 100% ; jl7 Arvind Coma Score: 07:25 Eye Response: spontaneous(4). Verbal Response: oriented(5). Motor Response: obeys rn commands(6). Total: 15. MDM: 07:11 Patient medically screened. rn 07:25 Differential diagnosis: cluster headache, hypertensive headache, migraine, tension rn headache, vasomotor headache, GERD, stricture, dehydration, chronic pain. Data reviewed: vital signs, nurses notes. ED course: Pt evaluated after sign out by Dr. Greco, reports months of difficulty swallowing/chest pain/headache. Has been evaluated for these problems. States has difficulty swallowing spit sometimes yet can swallow pills and pain medication. No vomiting. Seen by ENT recently, told needs swallow study and GI scope. Headaches are daily and is "tired of them". No acute changes to bring her in. . 08:57 Counseling: I had a detailed discussion with the patient and/or guardian regarding: the rn historical points, exam findings, and any diagnostic results supporting the discharge/admit diagnosis, the presence of at least one elevated blood pressure reading (>120/80) during this emergency department visit, lab results, radiology results, the need for outpatient follow up, to return to the emergency department if symptoms worsen or persist or if there are any questions or concerns that arise at home. Special discussion: I discussed with the patient/guardian in detail that at this point there is no indication for admission to the hospital. It is understood, however, that if the symptoms persist or worsen the patient needs to return immediately for re-evaluation. Based on the history and exam findings, there is no indication for further emergent testing or inpatient evaluation. I discussed with the patient/guardian the need to see the insurance policy issue clerk for further evaluation of the symptoms. ED course: No acute findings on bloodwork or imaging, chronic symptoms, no acute changes in symptoms. Will dc home with GI f/u as planned. . 12 06:51 Order name: Basic Metabolic Panel; Complete Time: 07:45 tw4 04/29 06:51 Order name: CBC with Diff; Complete Time: 07:45 tw4 04/29 06:51 Order name: LFT's; Complete Time: 07:45 tw4 12/28 06:51 Order name: Magnesium; Complete Time: 07:45 04/29 06:51 Order name: NT PRO-BNP; Complete Time: 07:45 04/29 06:51 Order name: PT-INR; Complete Time: 07:45 04/29 06:51 Order name: Troponin (emerg Dept Use Only); Complete Time: 07:45 04/29 06:51 Order name: XRAY Chest (1 view); Complete Time: 08:57 04/29 06:51 Order name: EKG; Complete Time: 06:52 04/29 06:51 Order name: Cardiac monitoring; Complete Time: 07:53 04/29 07:03 Order name: CT Head Brain wo Cont; Complete Time: 08:29 04/29 06:51 Order name: EKG - Nurse/Tech; Complete Time: 07:53 04/29 06:51 Order name: IV Saline Lock; Complete Time: 07:53 04/29 06:51 Order name: Labs collected and sent; Complete Time: 07:53 04/29 06:51 Order name: O2 Per Protocol; Complete Time: 07:53 04/29 06:51 Order name: O2 Sat Monitoring; Complete Time: 07:53 4 EC:05 Rate is 74 beats/min. Rhythm is regular. QRS [place] is Normal. [place] interval is normal. QRS tw4 interval is normal. QT interval is normal. No Q waves. T waves are Normal. No ST changes noted. Clinical impression: Normal ECG. Interpreted by me. Reviewed by me. Administered Medications: 07:18 Drug: NS 0.9% 1000 ml Route: IV; Rate: 1 bolus; Site: right antecubital; 2 08:50 Follow up: Response: No adverse reaction; IV Status: Completed infusion; IV Intake: jl7 1000ml 07:55 Drug: Demerol 50 mg Route: IVP; Site: right antecubital; jl7 08:20 Follow up: Response: No adverse reaction; Pain is unchanged, physician notified jl7 08:35 Drug: Demerol 50 mg Route: IVP; Site: right antecubital; jl7 09:00 Follow up: Response: No adverse reaction; Pain is unchanged, physician notified jl7 Disposition: 04/29/20 08:58 Discharged to Home. Impression: Dysphagia, Headache. - Condition is Stable. - Discharge Instructions: Dysphagia, General Headache Without Cause, Hypertension. - Medication Reconciliation Form, Thank You Letter, Antibiotic Education, Prescription Opioid Use form. - Follow up: Private Physician; When: As needed; Reason: Recheck today's complaints, Re-evaluation by your physician. - Problem is chronic. - Symptoms have improved. Signatures: Dispatcher [employer] EDMS Jatin Greenberg MD MD rn Leal, Jahala RN RN jl7 Masoud Greco MD MD tw4 Cassandra Porter RN RN ll2 Corrections: (The following items were deleted from the chart) 09: 08:58 04/29/2020 08:58 Discharged to Home. Impression: Dysphagia; Headache. Condition jl7 is Stable. Forms are Medication Reconciliation Form, Thank You Letter, Antibiotic Education, Prescription Opioid Use. Follow up: Private Physician; When: As needed; Reason: Recheck today's complaints, Re-evaluation by your physician. Problem is chronic. Symptoms have improved. rn
[2020-04-29 09:32] VITALS: TEMP 98.3; O2SAT 100
[2020-04-29 09:34] VITALS: BP 145/68
--- NOTE | 2020-04-30 16:10 | EKG ---
Test Date: 2020-04-29 Test Time: 06:45:25 Distribution Associate: MARI MEASUREMENT RESULTS: Intervals: Rate: 74 [place]: 158 QRSD: 82 QT: 372 QTc: 412 [place]: P: 62 [place]: 158 QRS: 44 T: 42 INTERPRETIVE STATEMENTS: Normal sinus rhythm Normal ECG Compared to ECG 01/07/2020 13:22:01 No significant changes Electronically Signed On 04-30-20 16:05:48 SEX OFFENDER TREATMENT PROFESSIONAL by Miguelito Hidalgo
== END 2020-04-29 09:26 | disposition home or self-care (01) ==
LOC: ER 06:25
DX: R51.9 Headache, unspecified (principal); R13.10 Dysphagia, unspecified; Z79.01 Long term (current) use of anticoagulants; Z88.5 Allergy status to narcotic agent; Z88.8 Allergy status to other drugs, medicaments and biological substances
CPT/HCPCS: 96361; 93005; 85025; 80048; 36415; 83735; 85610; 80076; 84484; 83880; 70450; 71045; 96374; 99284; J2175 ×2; J7030

== ENCOUNTER 2020-05-20 09:28 | Emergency (ER) | payer OTHER ==
--- OUTSIDE RECORDS SUMMARY | 2020-05-20 09:37 | XMS REPORT | Clinical Summary ---
:[address] [facility] Address [address] [place] [address] Care Team Providers Name Role Phone Nayla Alonzo MD Primary Care Provider Allergies Not on File Medications Not on file Active Problems Not on file Encounters Date Type Specialty Care Team Description 10/30/2019 Telephone Critical Care Medicine Jan Fountain MD 10/30/2019 Hospital Encounter after 05/20/2019 Social History Tobacco Use Types Packs/Day Years Used Date Never Assessed Sex Assigned at Date Recorded Not on file Last Filed Vital Signs Not on file Plan of Treatment Not on file Results Not on fileafter 05/20/2019 Insurance Payer Benefit Plan / Subscriber ID Effective Dates Phone Addre ss Type Group [employer] - MGD CIGNA [id number] 2012-Present HMO/POS CARE HMO/POS/OPEN ACCESS [phone] [id number] (Work)
--- OUTSIDE RECORDS SUMMARY | 2020-05-20 09:37 | XMS REPORT | Clinical Summary ---
:1955 Author Organization [facility] Address [address] [place] [address] Care Team Providers Name Role Phone Nayla [...] Bedtime, # 180 tab, 3 Refill(s), Pharmacy: [facility]/pharmacy #[id number] buprenorphine (BELBUCA) 150 0 10/20/19 Discontinued 150 [...] Encounters Date Type Specialty Care Team Description 05/13/2020 Orders Only Neurosurgery Triston Noel Cervical MD Chel radiculopathy (Primary Dx) 05/13/2020 Travel 10/19/2019 Office Visit Triston Brown Follow-up exami nation following surgery (Primary Dx); MD Chel S/Maryjane lumbar lami nectomy 10/19/2019 Travel 09/26/2019 Travel 09/19/2019 Anesthesia Event General Surgery Douglas Gilmore MD [place], Stacy Joan, VIK 09/19/2019 Surgery General Surgery Triston Noel LUMBAR JAQUI ECTOMY MD Chel FOR DECOMRESSIO N, POSSIBLE DISCEC JAH, BILATERAL L3-S1 09/19/2019 - Hospital Encounter Triston Brown S/P lumba r laminectomy; 09/22/2019 MD Chel Spinal stenosis , lumbar region with neurogenic claudication 09/11/2019 Pre-Admit Testing Pre-Admission Triston Noel Preop mary ting Appointment Testing MD Chel (Primary Dx) 09/11/2019 Office Visit Triston Brown Spinal stenosis of lumbar region with neurogenic claudication (Primary Dx); MD Chel DDD (degenerati ve disc disease), lumbar 09/11/2019 Travel 09/08/2019 Telephone Radiology Torrie Cobb, SAND MOLDER 09/06/2019 Hospital Encounter Radiology Triston Noel Thoracic MD Chel radiculopathy 09/06/2019 Hospital Encounter Radiology Triston Noel Spinal st enosis fahad Milligan MD lumbar region, unspecified whe ther neurogenic claudication pr esent 09/06/2019 Hospital Encounter Radiology Triston Noel Lumbar st enosis with neurogenic claudication; MD Chel Radiculopathy o f thoracic region 09/06/2019 Travel 09/04/2019 Travel 09/04/2019 Telephone Radiology OpusSonam Holden RN 08/30/2019 Telephone Radiology OpusSonam Holden RN 08/29/2019 Telephone Radiology OpusSonam Holden RN 08/29/2019 Orders Only Neurosurgery Wanda Cotter, Lumbar stenosis with neurogenic claudication (Primary Dx); 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 Radiculopathy o f thoracic region 08/22/2019 Orders Only Neurosurgery Wanda Cotter, Thoracic radicu lopathy (Primary Dx); 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 Spinal stenosis of lumbar region, unspecified whether neurogenic claudication present 08/14/2019 Hospital Encounter Radiology Triston Noel MD 08/14/2019 Hospital Encounter Radiology Triston Noel MD 08/14/2019 Office Visit Neurosurgery Triston Noel 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 (Primary Dx); MD Chel DDD (degenerati ve disc disease), lumbar; Spinal stenosis of lumbar region with neurogenic claudication; Claudication (H CC); Thoracic radicu lopathy 08/14/2019 Hospital Encounter Radiology Triston Noel Lumbar ra diculopathy MD Chel 08/14/2019 Hospital Encounter Radiology Triston Noel Lumbar ra diculopathy MD Chel 08/14/2019 Travel 08/10/2019 Travel 08/07/2019 Travel 08/02/2019 Abstract Neurosurgery Wanda Cotter, 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 07/27/2019 Travel 07/04/2019 Office Visit Cardiology Ibis Torres Essential hyper tension (Primary Dx); MD Danitza Claudication (H CC) 07/04/2019 Orders Only Triston Brown Lumbar radiculo tr MD Chel (Primary Dx) 06/06/2019 Lab Lab Ibis Torres PAD (peripheral R., MD artery disease) (HCC) 06/06/2019 Office Visit Cardiology AshleighJacksonIbis PAD (peripheral artery disease) (HCC) (Primary Dx); MD Danitza Bilateral carot id artery stenosis after 05/20/2019 Surgical History Surgery Date Site/Laterality Comments HYSTERECTOMY BLADDER REPAIR APPENDECTOMY TMJ DISLOCATION CLOSED MANIPULATION CHOLECYSTECTOMY COLONOSCOPY UPPER GASTROINTESTINAL ENDOSCOPY ERCP US UPPER GI TRACT, ENDOSCOPIC 01/31/2016 N/A Pr ocedure: PANCREATIC EUS; Surgeon: Steve merrill MD; Location: [facility]; Serv ice: Gastroenterology ; Laterality: N/A; HERNIA REPAIR ENDOSCOPIC ULTRASOUND (UPPER) HEMORRHOID SURGERY CERVICAL DISC SURGERY SPINE SURGERY ABDOMINAL SURGERY BACK SURGERY Neck LAMINECTOMY, LUMBAR 09/19/2019 Back/Posterior Procedure: L UMBAR LAMINECTOMY FOR DECOMRESSION, PO SSIBLE DISCECTOMY, BILA TERAL L3-S1; Surgeon: Triston Noel MD; Loc ation: [facility] OR; Servic e: Neurosurgery; L aterality: Posterior; Medical [...] file Not on file Not on file COVID-19 Exposure Response Date Recorded In the last month, have you been in contact with No / Unsure 05/13/2020 11:05 AM APPARATUS REPAIR MECHANIC someone who was confirmed or suspected to [...] 09/19/2019 10:00 AM CDT Plan of Treatment Date Type Specialty Care Team Description 05/23/2020 Office Visit Neurosurgery Triston Noel MD [address] [facility] [address] [place], [place] [address] Health Maintenance Due Date Last Done Comments COVID-19 VACCINE (1 of 2) 1969 BREAST CANCER SCREENING 12/10/2003 COLONOSCOPY SCREENING 12/10/2003 SHINGLES VACCINES (#1) 12/10/2003 65+ PNEUMOCOCCAL VACCINE (1 of 1 - PPSV23) 2018 INFLUENZA VACCINE 12/02/2019 Implants Implanted Type 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 TX AN ELECTIVE Routine 09/19/2019 3:51 Results f [...] neurogenic claudication Case Notes EXTENDED RECOVERY NEEDED, [place] CROSCOPE, KARISHMA FRAME Special Needs EXTENDED RECOVERY NEEDED, [place] CROSCOPE, KARISHMA FRAME SURGICAL PATHOLOGY Routine 09/19/2019 [...] (peripheral Res ults for this BILATERAL AM APPARATUS REPAIR MECHANIC artery disease) ([facility]) proced ure are in the results section. CT ANGIOGRAM Routine 06/06/2019 5:02 PAD (peripheral Results for this ABDOMINAL AORTA AND PM APPARATUS REPAIR MECHANIC artery disease) ([facility]) procedure are in BILATERAL ILIOFEMORAL the re sults RUNOFF W WO CONTRAST section . ESTIMATED GFR Routine 06/06/2019 3:21 Results fo r this PM APPARATUS REPAIR MECHANIC procedure are i n the results section. POC CREATININE Routine 06/06/2019 3:21 Results f or this PM APPARATUS REPAIR MECHANIC procedure are i n the results section. COPY RECEIVED FROM: Routine 06/06/2019 11:02 Resu lts for this AM APPARATUS REPAIR MECHANIC procedure are i n the results section. COPY(IES) SENT TO: Routine 06/06/2019 11:02 Resul ts for this AM APPARATUS REPAIR MECHANIC procedure are i n the results section. BASIC METABOLIC PANEL Routine 06/06/2019 11:02 PAD (peripheral Results for this AM APPARATUS REPAIR MECHANIC artery disease) ([facility]) proced ure are in the results section. ECG 12-LEAD Routine 06/06/2019 9:55 Bilateral carotid Result s for this AM APPARATUS REPAIR MECHANIC artery stenosis procedure ar e in the results section. after 05/20/2019 Results Urine culture (09/20/2019 7:30 PM CDT) Pathologist Sig nature Urine culture SEE COMMENTComment: [facility] Bacteriuria screen HOSPITAL negative. Specimen Performing Organization Address City/State/ZIP Code Phon e Number [facility] DEPARTMENT OF PATHOLOGY AND [address] [place], [place] [address] GENOM[address] MED[address] [address] [address] Cervical Spine Wo Contrast (09/20/2019 6:46 [...] acute fractures of the cervical spine . [facility] Procedure Note Interface, Radiology Results Incoming - [...] acute fractures of the cervical spine . [facility] Performing Organization Address City/State/ZIP Code Phon e Number [facility] [address] [place] [address] CT Head Wo Contrast (09/20/2019 6:45 PM [...] IMPRESSION: No acute intracranial abnormality identi fied. [id number] Procedure Note Interface, Radiology Results Incoming - [...] IMPRESSION: No acute intracranial abnormality identi fied. [id number] Performing Organization Address [facility]/ZIP Code Phon e Number [facility] [address] [place] [address] CT Lumbar Spine Wo Contrast (09/20/2019 6:43 [...] a t L5-S1 bilaterally. [facility] Procedure Note Hm Interface, Radiology Results Incoming [...] t L5-S1 bilaterally. [facility] Performing Organization Address [facility]/ZIP Code Phon e Number [facility] [address] [place] [address] CBC with platelet and differential (09/20/2019 5:36 PM CDT)Only the most recent of2 resultswithin the time period is included. WBC 13.52 (H) 4.50 - 11.[address] [facility] RBC 4.10 (L) 4.20 - 5.50 [facility] m/uL HOSPITAL HGB 12.9 12.0 - 16.0 [facility] g/dL HOSPITAL HCT 39.3 37.0 - 47.0 % [facility] MCV 95.9 82.0 - 100.0 [facility] MCH 31.5 27.0 - 34.0 pg [facility] MCHC 32.8 31.0 - 37.0 [facility] g/dL [facility] RDW - SD 42.5 37.0 - 55.0 fL [facility] MPV 10.4 8.8 - 13.2 fL [facility] Platelet count 229 150 - 400 k/uL [facility] Nucleated RBC 0.00 /100 WBC [facility] Neutrophils 78.5 (H) 39.0 - 69.0 % [facility] Lymphocytes 11.5 (L) 25.0 - 45.0 % [facility] Monocytes 9.4 0.0 - 10.0 % [facility] Eosinophils 0.0 0.0 - 5.0 % [facility] Basophils 0.2 0.0 - 1.0 % [facility] Immature granulocytes 0.4Comment: 0.0 - 1.0 % [facility] "[facility] granulocytes" (promyelocytes , myelocytes, metamyelocytes ) Specimen Blood Performing Organization Address City/[facility] Phon e Number [facility] DEPARTMENT OF PATHOLOGY AND [address] [place], [place] [phone] [address] [address] Ammonia level (09/20/2019 5:36 PM CDT) Pathologist Sig nature Ammonia 19 11 - 51 umol/L [facility] Specimen Blood Performing Organization Address City/[facility] Phon e Number [facility] DEPARTMENT OF PATHOLOGY AND [address] [place] [address] [phone] [address] Urinalysis screen and microscopy, with reflex to culture (09/20/2019 5:30 PM CDT) Specimen site Clean catch [facility] Color, UA Straw [facility] Appearance, UA Clear [facility] Specific gravity, UA 1.003 1.001 - 1.035 [facility] pH, UA 7.0 5.0 - 8.5 [facility] Protein, UA Negative Negative [facility] Glucose, UA Negative Negative [facility] Ketones, UA Negative Negative [facility] Bilirubin, UA Negative Negative [facility] Blood, UA Negative Negative [facility] Nitrite, UA Negative Negative [facility] Urobilinogen, UA <2.0 <2.0 [facility] Leukocyte esterase, Negative Negative [facility] Epithelial cells, UA 5 /HPF [facility] WBC, UA 1 0 - 4 /HPF [facility] RBC, UA 1 0 - 5 /HPF [facility] Bacteria, UA Few None seen [facility] Yeast, UA None seen [facility] Yeast with None seen [facility] pseudohyphae, [facility] Specimen Urine Performing Organization Address City/[facility] Phon e Number [facility] DEPARTMENT OF PATHOLOGY AND [address] [place] [address] [phone] [address] Urine drugs of abuse screen (09/20/2019 5:30 PM CDT) Amphetamine screen, Negative [place] urine [facility] Barbiturate screen, Negative [place] urine [facility] Benzodiazepine Negative [place] screen, urine [facility] Cocaine screen, urine Negative [facility] Methadone metabolite Negative [place] (EDDP), urine [facility] Opiates screen, urine Negative [facility] Oxycodone screen, Positive (A) [place] urine [facility] Phencyclidine screen, Negative [place] urine [facility] Tricyclic screen, Negative [place] urine [facility] Cannabinoid screen, Negative [place] urine Comment: [facility] Drug screen minimum concentration of detectability HOSPITAL [...] requir ed. Specimen Urine Performing Organization Address City/[facility] Phon e Number [facility] DEPARTMENT OF PATHOLOGY AND [address] [place] [address] [phone] [place] [address] Estimated GFR (09/20/2019 5:20 PM CDT)Only the most recent of3 resultswithin the time period is included. Pathologist [facility] [place] Estimated GFR 82 mL/min/1.73 [facility] Comment: HOSPITAL Catergory Units Interpretation G1 >=90 Normal [...] published in 2014. Specimen Performing Organization Address City/State/ZIP Code Phon e Number [facility] DEPARTMENT OF PATHOLOGY AND [address] [place] [phone] GENOM[address] MED[address]INE [address] [address] Troponin (09/20/2019 5:20 PM CDT) Pathologist [facility] [place] Troponin 0.013 0.000 - 0.040 [place] Comment: ng/mL HOSPITAL In patients suspected of [...] 0.020 ng/mL Specimen Blood Performing Organization Address [facility] Phon e Number [facility] DEPARTMENT OF PATHOLOGY AND [address] [place] [address] [phone] [address] Partial thromboplastin time, activated (09/20/2019 5:20 PM CDT) PTT 24.7 23.0 - 36.0 [facility] Comment: [facility] PTT therapeutic range for unfractionated heparin is 61.0-112.0 seconds which corresponds to Anti-Xa 0.3-0.7 U/ml. Specimen Blood Performing Organization Address [facility] Phon e Number [facility] DEPARTMENT OF PATHOLOGY AND [address] [place] [address] [place] [address] Prothrombin time with INR (09/20/2019 5:20 PM CDT) Pathologist [facility] [place] Prothrombin time 13.3 11.5 - 14.5 [facility] INR 1.0 [place] Comment: [facility] International Normalized Ratio (INR) is a therapeu [facility] HOSPITAL monitoring tool for patients who are stable on oral anticoagulant therapy. An INR of 2.0-3.0 is suggested for deep vein thrombosis/pulmonary embolism. Specimen Blood Performing Organization Address [facility] Phon e Number [facility] DEPARTMENT OF PATHOLOGY AND [address] [place] [address] [phone] [address] Phosphorus level (09/20/2019 5:20 PM CDT) Pathologist Sig nature Phosphorus 2.6 2.4 - 4.5 mg/dL [facility] L Specimen Blood Performing Organization Address [facility] Phon e Number [facility] DEPARTMENT OF PATHOLOGY AND [address] [place] [address] [phone] [address] Magnesium level (09/20/2019 5:20 PM CDT) Pathologist Sig nature Magnesium 1.8 1.6 - 2.4 mg/dL [facility] Specimen Blood Performing Organization Address City/[facility] Phon e Number [facility] DEPARTMENT OF PATHOLOGY AND [address] [place] [address] [phone] [address] Ionized calcium (09/20/2019 5:20 PM CDT) Pathologist Sig nature pH 7.52 [facility] Ionized calcium 1.13 1.11 - 1.32 mmol/L [facility] Specimen Blood Performing Organization Address City/[facility] Phon e Number [facility] DEPARTMENT OF PATHOLOGY AND [address] [place] [address] [phone] [address] Basic metabolic panel (09/20/2019 5:20 PM CDT)Only the most recent of2 results within the time period is included. Pathologist [facility] Sodium 145 135 - 148 mEq/L [facility] Potassium 3.5 3.5 - 5.0 mEq/L [facility] Chloride 105 98 - 112 mEq/L [facility] CO2 23 (L) 24 - 31 mEq/L [facility] Anion gap 17@ANIO (H) 7 - 15 mEq/L [facility] BUN 9 8 - 23 mg/dL [facility] Creatinine 0.76 0.50 - 0.90 mg/dL [facility] Glucose 142 (H) 65 - 99 mg/dL [facility] Calcium 9.5 8.8 - 10.2 mg/dL [facility] Specimen Blood Performing Organization Address City/[facility] Phon e Number [facility] DEPARTMENT OF PATHOLOGY AND [address] [place] [address] [phone] [address] ECG 12 lead (09/20/2019 4:27 PM CDT)Only the most recent of2 resultswithin the time period is included. Pathologist Sig nature Ventricular rate 88 [facility]USE Atrial rate 88 [facility] MUSE TX interval 164 [facility] QRSD interval 90 [facility] QT interval 356 [facility] QTC interval 430 [facility] P axis 1 58 [facility] QRS axis 1 64 [facility] T wave axis 59 [facility] MUSE EKG impression Normal sinus [facility] MUSE rhythm-Normal ECG-In automated comparison with ECG of 06-JUN-2019 09:55,-No significant change was found- Specimen Narrative Performed At This result has an attachment that is no t available. Performing Organization Address City/[facility]/ZIP Code Phon e Number [facility] MUSE [address] [place] [address] POC glucose (09/20/2019 4:25 PM CDT) Pathologist Sig nature POC glucose 133 (H) 65 - 99 mg/dL [facility] Comment: HOSPITAL Gimp Tacker Name: Zion Crump Device ID: [id number] Chartable: [facility] Notified RN Specimen Blood Performing Organization Address [facility] Code Phon e Number [facility] DEPARTMENT OF PATHOLOGY AND [address] [place] [phone] GENOMIC MEDICINE [address] [address] Airway (09/19/2019 3:59 PM CDT) Narrative Performed [...] FOB. ) Insertion Site: Oral Blade Type: Wesley (attempt by Dr gilmore and dr Jose [...] aspect of the L4 spin ous process. [id number] Procedure Note Hm Interface, Radiology Results Incoming [...] inferior aspect of the L4 spinous process. [id number] Performing Organization Address City/[facility]/ZIP Code Phon e Number [facility] [address] [place] [address] Surgical pathology request (09/19/2019 8:26 AM CDT) [facility] DEPARTMENT OF PATHOLOGY AND GENOMIC MEDICINE Surgical pathology See link below [facility] DEPARTMENT OF report for PDF Lab PATHOLOGY AND Report GENOMIC MEDICINE Result status This is Final [facility] DEPARTMENT OF Report for PATHOLOGY AND [id number] GENOMIC MEDICINE Specimen Performing Organization Address [facility] Phon e Number [facility] DEPARTMENT OF PATHOLOGY AND [address] [place] [phone] GENOMIC MEDICINE COVID BioRef (NCOVB) (09/11/2019 12:19 PM CDT) COVID BioRef Not Detected Not Detected [facility] (NCOV[facility]) Comment: Source Nasopharyngeal Swab Testing performed at [facility] [address] [place] [address] NOTE: Please consider re-collection of a new specimen, if clinically indicated. NOTE: The COVID-19 assay has been cleared by the U.S. Food and Drug Administration under the Emergency Use Authorization ( EUA). [facility] is designated as a high complexity labora [...] under the Emergency Use Authorization ( EUA). [facility] is designated as a high complexity labora tory by the Clinical Laboratory Improvement Amendments of 1988(CLIA) and is qualified to perform this test. ASSAY INFORMATION: Real Time RT-PCR (Reported 2019 12:29) Specimen Nasopharyngeal Performing Organization Address City/[facility]/ZIP Code Phon e Number [facility] DEPARTMENT OF PATHOLOGY [address] [place] [address] AND [facility] [address] [place], [place] [address] [address] Comprehensive metabolic panel (09/11/2019 12:11 PM CDT) Sodium 142 135 - 148 [facility] mEq/L [facility] Potassium 4.0 3.5 - 5.0 [facility] mEq/L [facility] Chloride 100 98 - 112 [facility] mEq/L [facility] CO2 26 24 - 31 mEq/L [facility] Anion gap 16@ANIO (H) 7 - 15 mEq/L [facility] BUN 26 (H) 8 - 23 mg/dL [facility] Creatinine 0.90 0.50 - 0.90 [facility] mg/dL [facility] Glucose 111 (H) 65 - 99 mg/dL [facility] Calcium 10.5 (H) 8.8 - 10.2 [facility] mg/dL [facility] Protein 7.6 6.3 - 8.3 [facility] Comment: g/dL HOSPITAL - 4.6-7.0 g/dL 1 week 4.4-7.6 g/dL 7 months-1year 5.1-7.3 g/dL 1-2 years 5.6-7.5 g/dL >3 years 6.0-8.0 g/dL 18-150 6.3-8.3 g/dL Albumin 4.0 3.5 - 5.0 [facility] g/dL [facility] A/G ratio 1.1 0.7 - 3.8 [facility] Alkaline phosphatase 82 35 - 104 U/L [facility] AST 20 10 - 35 U/L [facility] ALT 17 5 - 50 U/L [facility] Total bilirubin 0.3 0.0 - 1.2 [facility] mg/dL HOSPITAL Specimen Blood Performing Organization Address City/State/ZIP Code Phon e Number [facility] DEPARTMENT OF PATHOLOGY AND [address] [place], [place] [phone] GENOMIC MEDICINE [address] [address] [address] Post Myelogram Thoracic (09/06/2019 12:33 PM CDT) Specimen Narrative Performed At EXAMINATION: CT POST MYELOGRAM THORACI C [facility] CLINICAL HISTORY: M54.14 Radiculopathy thoracic re gion, thoracic radiculopathy COMPARISON: None. TECHNIQUE: Axial helical CT images throughout the THORACIC spin e were performed after intrathecal contrast. Sagittal and coronal ref ormatted images were generated. CT scans are performed using radiation dose reduction techniques. Technical factors are evaluated and adjusted to ensure appropriate moderation of exposure. Automated dose director strategic account management nology is applied to adjust radiation exposure [...] correlation for right C6 radiculopathy is recommended. [facility]-[id number] Procedure Note Interface, Radiology Results - 09/06/2019 [...] correlation for right C6 radiculopathy is recommended. [facility]-[id number] Performing Organization Address City/State/ZIP Code Phon e Number [facility] [address] [place] [address] CT Post Myelogram Lumbar (09/06/2019 12:32 PM [...] ensure appropriate moderation of exposure. Automated dose director strategic account management nology is applied to adjust radiation exposure [...] ingement on the right L3 nerve root. [facility]-[id number] Procedure Note Hm Interface, Radiology Results 09/06/2019 [...] impingement on the right L3 nerve root. [facility]-[id number] Performing Organization Address City/State/ZIP Code Phon e Number [facility] [address] [place] [address] IR Myelogram 2+Reg Incl Inj W S&I [...] of the left C6 root sleeve . [facility]-[id number] Procedure Note Hm Interface, Radiology Results Incoming [...] of the left C6 root sleeve . [facility]-[id number] Performing Organization Address City/State/ZIP Code Phon e Number [facility] [address] [place] [address] XR Lumbar Spine Complete W Flex and [...] IMPRESSION: Degenerative changes without acute abnor mality. [facility]-[id number] Dictated and approved by radiology resid ent/fellow: Cari Thomson M.D. I, Marilyn Charles MD, personally reviewed the images and resident's/fellow's findings and agree with the final report. Procedure Note Hm Interface, Radiology Results Incoming - 08/14/2019 11:37 [...] IMPRESSION: Degenerative changes without acute abnor mality. [facility]-[id number] Dictated and approved by radiology resid ent/fellow: Cari Thomson M.D. I, Marilyn Charles MD, personally review ed the images and resident's/fellow's findings and agree with the final report. Performing Organization Address City/State/ZIP Code Phon e Number [facility] [address] [place] [address] XR Spine Scoliosos 2-3 Views (08/14/2019 11:06 [...] and s crew fixation and interbody graft. [id number] Procedure Note Interface, Radiology Results Incoming - [...] plate and screw fixation and interbody graft. [id number] Performing Organization Address City/State/ZIP Code Phon e Number [facility] [address] [place] [address] Us carotid duplex (06/13/2019 10:00 AM APPARATUS REPAIR MECHANIC) Specimen Narrative Performed At [facility] Carotid Tonya ry Ultrasound Report Pat.Name: HALEY PORTER Pat.ID: [id number] .Date: 06/13/2019 Refer.MD: IBIS TORRES MD Exam Time: 9:13:00 AM Study Type:C arotid Age: 8 1955,63Y Sex: FEMALE Sonogrphr: Cyn Montoya RVT Pat. Stat.:Outp atient Room: [facility] ol: [place], CPT - 4: 64159 Echo Shira nt ID:[id number] Order ID: [id number] Reason for Study:Carotid artery disease, Hx of [...] Radiology Results In - 2019 6:01 AM APPARATUS REPAIR MECHANIC [facility] Carotid Artery Ultras ound Report Pat.Name: HALEY PORTER Pat.I D: [id number] St.Date: 06/13/2019 Refer .MD: IBIS TORRES MD Exam Time: 9:13:00 AM Study Type:Carotid Age: 8 1955,63Y Sex: FEMALE Sonogrphr: Cyn Montoya RVT Pat. Stat.:Outpatient Room: [facility] Vol: [place], CPT - 4: 04410 Echo Event ID:[id number] Order ID: [id number] Reason for Study:Carotid artery disease, Hx of [...] City/State/ZIP Code Phon e Number [facility] [address] [place] [address] CTA Abdominal Aorta And Bilateral Iliofemoral Runoff W Wo Contrast (06/06/2019 5:02 PM APPARATUS REPAIR MECHANIC) Specimen Narrative Performed At EXAMINATION: CT ANGIOGRAM [...] runoff of the bilate ral lower extremities. [id number] Procedure Note Hm Interface, Radiology Results Incoming - 06/06/2019 5:24 PM APPARATUS REPAIR MECHANIC EXAMINATION: CT ANGIOGRAM ABDOMINAL AORTA AND BILATERAL [...] runoff of the bilate ral lower extremities. [id number] Performing Organization Address [facility] Phon e Number [facility] [address] [place] [address] POC creatinine (06/06/2019 3:21 PM APPARATUS REPAIR MECHANIC) POC creatinine 0.8 0.5 - 0.9 [facility] Comment: mg/dl HOSPITAL Meter ID: [id number] Gimp Tacker ID: Bayron Valencia Specimen Blood - Antecubital, left Performing Organization Address [facility] Phon e Number [facility] DEPARTMENT OF PATHOLOGY AND [address] [place], [place] [address] [facility]IC MEDIC[facility] [address] [place] [address] COPY RECEIVED FROM: (06/06/2019 11:02 AM APPARATUS REPAIR MECHANIC) Pathologist Sig nature Copy received from: [facility] Comment: [address] [place] [address] Specimen Performing Organization Address City/[facility] Phon e Number [facility] COPY(IES) SENT TO: (06/06/2019 11:02 AM APPARATUS REPAIR MECHANIC) Pathologist Sig nature Copies/mL [facility] Comment: [facility] [address] [facility] [address] [place] [address] Specimen Performing Organization Address City/[facility] Phon e Number [facility] after 05/20/2019 Insurance Payer Benefit Plan / Subscriber ID Effective Phone Address T ype Group Dates MEDICARE MEDICARE PART A [id number] 2018-[facility] [place], [place] Medicare AND B ent COMMERCIAL MISC MISC COMMERCIAL [id number] 2009-[facility] Commercial ent Guarantor Name Account Type Relation to Date of Phone Billing Patient Address Haley Porter Personal/Family Self 1955 [address] (Home) [place], [place] [phone] (Work) Advance Directives For more information, please contact: [phone] Type Date Recorded Patient Director Of Enrollment Explanati on Advance Directives, Living Will and Medical Power of Canvas Baster Jump[employer]asting
--- OUTSIDE RECORDS SUMMARY | 2020-05-20 09:40 | XMS REPORT | Continuity of Care Document ---
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 MORNING, PROBLEMS 013 Nd dical BREATHING Center POST FOLLOW UP Active [address] BDDC-WEIGHT LOSS Active [address] 783.21 - ABNORMAL Active OPID LOSS O 576.0 - 013 Radha and POSTCHO ABD PAIN Active [address] Acid reflux Resolved Problem 01/25/2013 [facility] HTN - Hypertension Resolved Problem 01/25/2013 [facility] [place] [facility] Gastroesophageal Resolved Problem 11/02/2019 [place] reflux disease Neuro , (disorder) [facility] Cervical Active Problem 11/02/2019 [facility] spondylosis Neuro, (disorder) [facility] 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 on 12/25/14. Center[facility]ian [place] Ulcer of lower Active Problem 11/02/2019 [facility] her extremity Neuro, (disorder) [facility] ABDMNAL PAIN UNSPCF Active [facility] [place] [facility] Medications Medication Details Route Status Patient Ordering Order Source Instructions Provider Date remove patch Notes: Remove No Longer [place] patch 12 hours Active 2019 Medical after Center application each day. edwina, ASSISTED Notes: (Same Inactive [facility] as: [place]) [address] [place] [address] Center tramadol Notes: Not to Inactive [place] hydrochloride exceed 2020 Medical 50 MG Oral 400mg/day. Center Tablet (Same As: Ultram) Lidocaine 1 patch, TOP, Active [place] Hydrochloride Daily, Remove 2020 Medi ion 0.05 MG/MG after 12 hours, Cente r Transdermal # 30 patch, 0 Patch Refill(s), [Lidoderm] [id number], 167.64, cm, 10/31/19 2:23:00 CDT, Height, 79.091, kg, 10/31/19 2:23:00 CDT, Weight {74 (apixaban 5 5 mg = 1 tab, Active [place] MG Oral Tablet PO, BID, # 60 2019 Med ical [Eliquis]) } tab, 0 Center Pack [Eliquis Refill(s), 30-Day Starter Pharmacy: Pack] [facility]/pharmacy #[id number], 167.64, cm, 10/31/19 2:23:00 [...] 20 20 mg = 1 cap, Active [facility] mg oral delayed PO, Daily, 0 2020 Med ical release capsule Refill(s) Center Acetaminophen 1 tab, PO, Q6H, Active [place] 325 MG / PRN for pain, 0 2020 Medical Oxycodone Refill(s) Center Hydrochloride 10 MG Oral Tablet POLYETHYLENE Notes: Dissolve Inactive [facility] GLYCOL 3350 in [address] [place] [address] water or juice. Center (Same as: Miralax) Aspirin 81 MG Notes: Do not Inactive [facility] Enteric Coated crush or chew. [facility] Me dical Tablet (Same As: Center Ecotrin) Prilosec 20 mg, Route: Inactive [place] PO, Daily, 2020 Medical Dosing Weight Center 83.636, kg, Start date: 10/31/19 9:00:00 CDT, Duration: 30 day, Stop date: 11/29/19 9:00:00 CDT pregabalin Notes: (Same Inactive [facility] as: Lyrica) [address] [place] [address] quinapril 20 mg, 1 tab, Inactive [facility] Route: PO, Drug [facility] Medical form: TAB, Center Daily, Dosing Weight 83.636, kg, Start date: 10/31/19 9:00:00 CDT, Duration: 30 day, Stop date: 11/29/19 9:00:00 CDT Protonix Notes: Tablet Inactive [facility] should not be [address] [place] [address] chewed or [place] crushed. (Same as: Protonix) Acetaminophen Notes: (Same Inactive [place] 325 MG / as: [place] [address] [place] [address] Hydrocodone 325/5) Do not Cente r Bitartrate 5 MG exceed 4gm/day Oral Tablet of [[place] 5/325] acetaminophen. Hydromorphone Notes: Same as Inactive [facility] Dilaudid [address] [place] [address] Heparin 80 Route: IVP, Inactive [facility] unit/kg Bolus PRN, 5,400 2019 [facility] (Heparin Dosing unit, 5.4 mL, Ce nter Weight) Drug form: INJ, PRN, Heparin Protocol, Start date: 10/31/19 2:25:00 CDT Stop date: 11/30/19 2:24:00 CDT, 30 day, 0 Heparin 40 Route: IVP, Inactive [place] unit/kg [place]us PRN, 2,700 2019 [facility] (Heparin Dosing unit, 2.7 mL, Ce nter Weight) Drug form: INJ, PRN, Heparin Protocol, Start date: 10/31/19 2:25:00 CDT Stop date: 11/30/19 2:24:00 CDT, 30 day, 0 heparin Notes: Total Inactive [facility] additive 25,000 Concentration = 2019 Medical unit [18 50 unit/ ml Center unit/kg/hr] + Total volume = Premix Diluent 500 ml Send [facility] Sodium Chloride Request 2 hours 0.45% 500 mL prior to next bag Acetaminophen Notes: Do not Inactive [facility] 325 MG / exceed 4gm/day 2019 Medical Hydrocodone of [place] Bitartrate 10 acetaminophen. MG Oral Tablet (Same as: [place] 325/10) clorazepate Notes: (Same Inactive [place] as As: Tranxene-T) [address] [place] [address] tizanidine Notes: (Same [place]active [place] As: Zanaflex) [address] [place] [address] pregabalin 100 100 mg = 1 cap, Active H [place] mg oral capsule PO, QID, # 90 2019 Nd dical cap, 0 Center Refill(s) tizanidine 4 mg 4 mg = 1 tab, Inactive [facility] oral tablet PO, Q8H, PRN 2019 [facility] for muscle [place] spasms, # 90 tab, 0 Refill(s) clorazepate 7.5 7.5 mg = 1 tab, Inactive [facility] mg oral tablet PO, TID, PRN 2019 [facility] ion Anxiety, 0 Center Refill(s) linaclotide 145 microgram = Active [facility] exas 0.145 MG Oral 1 cap, PO, 2019 Medical Capsule Daily, 30 Center [Linzess] minutes prior to the first meal of the day, # 30 cap, 0 Refill(s) Dextrose 50% 12.5 gm, 25 mL, Inactive [facility] Syringe (D50W) Route: IVP, 2019 Medic al Drug Form: INJ, Center Dosing Weight 83.636, kg, PRN, PRN Blood Glucose Results, Start date: 10/31/19 2:06:00 CDT, Duration: 30 day, Stop date: 11/30/19 2:05:00 CDT, 0 Glucagon 1 mg, Route: Inactive [facility] IM, Drug form: [facility] Medical PDR/INJ, PRN, Center Dosing Weight 83.636, kg, PRN Blood Glucose Results, Start date: 10/31/19 2:06:00 CDT, Duration: 30 day, Stop date: 11/30/19 2:05:00 CDT, 0 Ondansetron Notes: (Same Inactive [place] as: Zofran) 2019 Medical MEDICATION Center WASTE Product Size: 4 mg Product Wasted: ___ mg Melatonin Notes: (Same Inactive [place] as: Melatonin) 2019 [facility] Center Aspirin 81 MG 81 mg = [...] Conjugated PO, Daily, # 30 2019 Neuro (ASSISTED) 0.3 MG tab, 0 Oral Tablet Refill(s) [...] Neuro tablet 180 tab, 3 Refill(s), Pharmacy: [facility]/pharmacy #[id number] Acetaminophen 1 tab, PO, TID, Active 300 MG / PRN Pain, X 4 2017 [place] Codeine day, # 12 tab, Phosphate 30 MG 0 Refill(s) Oral Tablet [Tylenol with Codeine #3] acetaminophen-c Notes: Do not Inactive 05/07/ M H odeine #3 exceed 4gm/day 2017 [place] of acetaminophen. 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, Stop date: 05/06/17 12:46:00 [employer]MIN[employer] Saline Flush Notes: (Same Inactive 0.9% as: BD 2017 [place] Posiflush) hyoscyamine 0.125 mg, 1 PO No Longer [place] as tab, Route: PO, Active 2012 [...] 50 mg, 1 tab, PO No Longer H [place] oral tablet PO, Q8H, PRN, Active 2012 Medica l 10 tab, as Center needed for pain, Substitution Allowed, TAB [place] 10/325 1 tab, Route: PO No Longer [place] oral tablet PO, Drug Form: Active 2012 Medic al TAB, Dosing Center Weight 65, kg, Q6H, PRN Pain, Start date: 01/22/13 21:22:00, Duration: 30 day, Stop date: 02/21/13 21:21:00 Omnipaque 100 mL, Route: IVP No Longer [place] 350mg/ml IVP, Drug Form: Active 2012 Medical SOLN, Dosing Center Weight 65, kg, ONCALL, STAT, Start date: 01/22/13 13:12:00, Duration: 1 doses or times, Dose = 2.2ml/kg, Max dose = 100ml -- "To be infused by Radiology Staff ONLY"Dose = 2.2ml/kg, Max dose = 100ml -- "To be infused by Radiology Staff ONLY" Dilaudid 0.5 mg, 0.25 IV No Longer [facility] mL, Route: IV, 2012 Medical Drug form: INJ, Center Q4H, Dosing Weight 65, kg, PRN as needed for pain, Start date: 01/22/13 12:17:00, Duration: 30 day, Stop date: 02/21/13 12:16:00 [place] 10/325 1 tab, Route: PO No Longer [facility] oral tablet PO, Drug Form: 2012 Medic al TAB, Dosing Center Weight 65, kg, Q4H, PRN Pain, NOW, Start date: 01/22/13 2:14:00, Duration: 30 day, Stop date: 02/21/13 2:13:00 Remeron 15 mg, 1 tab, PO No Longer [facility] Route: PO, Drug Active 2012 Medical form: TAB, Center Bedtime, Dosing Weight 65, kg, Start date: 01/21/13 21:00:00, Duration: 30 day, Stop date: 02/19/13 21:00:00 hyoscyamine 0.125 mg, 1 PO No Longer [facility] [place] as tab, Route: PO, 2012 Medical Drug form: TAB, Center TID, Dosing Weight 65, kg, Start date: 01/21/13 17:00:00, Duration: 30 day, Stop date: 02/20/13 13:00:00 D5W 1/2NS 1,000 1,000 mL, Rate: IV No Longer [facility] mL 75 ml/hr, Active 2012 Medical Infuse over: Center 13.3 hr, Route: IV, Dosing Weight 65 kg, Total Volume: 1,000, Start date: 01/21/13 15:44:00, Duration: 30 day, Stop date: 02/20/13 15:43:00 Dilaudid 0.5 mg, 0.25 IV No Longer [facility] mL, Route: IV, Active 2012 Medical Drug form: INJ, Center ONCE, Dosing Weight 65, kg, Start date: 01/21/13 14:32:00, Stop date: 01/21/13 14:32:00 Dilaudid 0.5 mg, 0.25 IV No Longer [facility] mL, Route: IV, Active 2012 Medical Drug form: INJ, Center Q8H, Dosing Weight 65, kg, PRN as needed for pain, Start date: 01/21/13 9:39:00, Duration: 30 day, Stop date: 02/20/13 9:38:00 senna 8.6 mg 8.6 mg, 1 tab, PO No Longer [facility] oral tablet Route: PO, Drug Active 2012 [facility] ion Form: TAB, Center Dosing Weight 65, kg, BID, PRN as needed for constipation, Start date: 01/21/13 9:39:00, Duration: 30 day, Stop date: 02/20/13 9:38:00 MiraLax 17 gm, 1 pkt, PO No Longer [facility] Route: PO, Drug Active 2012 Medical form: PWDR, Center Daily, Dosing Weight 65, kg, PRN Constipation, Start date: 01/21/13 9:38:00, Duration: 30 day, Stop date: 02/20/13 9:37:00 tramadol 50 mg 50 mg, 1 tab, PO No Longer [facility] oral tablet Route: PO, Drug Active 2012 Medi ion form: TAB, Q8H, Center Dosing Weight 65, kg, PRN as needed for pain, Start date: 01/21/13 9:38:00, Duration: 30 day, Stop date: 02/20/13 9:37:00 Protonix 40 mg, 1 tab, PO No Longer [facility] Route: PO, Drug Active 2012 Medical form: ECTAB, Center Daily, Dosing Weight 65, kg, Start date: 01/21/13 9:00:00, Duration: 30 day, Stop date: 02/19/13 9:00:00 Dilaudid 0.5 mg, 0.25 IV No Longer [facility] mL, Route: IV, Active 2012 Medical Drug form: INJ, Center ONCE, Dosing Weight 65, kg, PRN as needed for pain, Start date: 01/20/13 22:21:00 Zosyn 3.375 gm, IVPB No Longer [facility] Route: IVPB, Active 2012 Medical Drug form: Center PDR/INJ, ABXQ8H, Start date: 01/20/13 11:00:00, Stop date: 02/19/13 2:00:00 enoxaparin 40 mg, 0.4 mL, SUB-Q No Longer [facility] Route: SUB-Q, Active 2012 Medical Drug form: INJ, Center [id number], Dosing Weight 65, kg, Start date: 01/20/13 6:00:00, Duration: 30 day, Stop date: 02/18/13 6:00:00 NS + KCL 1,000 mL, Rate: IV No Longer [place] 20mEq/L 1000ml 125 ml/hr, Active 2012 Medica l (Premix) 1,000 Infuse over: 8 Ce nter mL hr, Route: IV, Dosing Weight 65 kg, Total Volume: 1,000, Start date: 01/20/13 5:25:00, Duration: 30 day, Stop date: 02/19/13 5:24:00 Zosyn 3.375 gm, IVPB No Longer [facility] Route: IVPB, Active 2012 Medical Drug form: INJ, Center Q6H, Dosing Weight 65, kg, Priority: STAT, Start date: 01/20/13 5:24:00, Duration: 30 day, Stop date: 02/19/13 0:00:00 Dilaudid 0.5 mg, 0.25 IV No Longer [facility] mL, Route: IV, Active 2012 Medical Drug form: INJ, Center Q4H, Dosing Weight 65, kg, PRN as needed for pain, Start date: 01/20/13 5:23:00, Duration: 30 day, Stop date: 02/19/13 5:22:00 docusate Substitution Active [place] Allowed 2012 Medical Center ondansetron 4 mg, 2 mL, IVP No Longer [place] Route: IVP, Active 2012 Medical [...] Zosyn 3.375 gm, IVPB No Longer Sajja [facility] Route: IVPB, Active 2012 Medical Drug [...] IV 1,000 mL, Rate: IV No Longer [facility] 1000 mL 1,000 ml/hr, Active 2012 [...] Substitution Active [place] Allowed, 2012 [facility] Center clorazepate Substitution [place] Allowed 2012 [facility] Symax Duotab Substitution Active [place] as Allowed 2012 [facility] Prilosec Substitution Active [place] Allowed 2012 [facility] Premarin Substitution Active [place] Allowed 2012 [facility] Allergies, Adverse Reactions, Alerts Substance Category Reaction Severity Reaction Status Date Comments S ource type Reported diazepam<dove Assertion Drug Active Data [facility] p>1</sup> allergy 2 migrated Medic al from [facility] on 12/24/14. Originally documented as VALIUM. midazolam<s Assertion Drug Active Data [facility] up>2</sup> allergy 2 migrated Medi ion from [facility] on 12/24/14. Originally documented as VERSED. morphine<dove Assertion Drug Active Data [facility] p>3</sup> allergy 2 migrated Medic al from [facility] on 12/24/14. Originally documented as MORPHINE. Valium Assertion Drug Active [place] [facility] allergy [facility] morphine drug Allergy [place] allergy Medical [place] cortisone drug Allergy Active [place] as allergy Medical [place] Immunizations No Data Provided for This Section Results Order Name Results Value Reference Date Interpretation Comments Chioma rce [facility] HEMATOLOGY PT 14.3 12.0 - 10/30 [facility] 14.7 /2019 [facility] HEMATOLOGY INR 1.11 0.85 - 10/30 [facility] 1.17 [facility] HEMATOLOGY PTT 94.8 22.9 - 10/30 [facility] 35.8 /2019 [facility] HEMATOLOGY PT 14.4 12.0 - 10/30 [facility] 14.7 /2019 [facility] HEMATOLOGY INR 1.11 0.85 - 10/30 [facility] 1.17 [facility] HEMATOLOGY PTT 86.8 22.9 - 10/30 [facility] 35.8 /2019 [facility] BLOOD BANK ABO/Rh O POS 10/30 [facility] RESULTS /2019 [facility] BLOOD BANK Antibody Negative 10/30 [facility] RESULTS Scrn (10/31/19 2:51 AM) /2019 [facility] CHEM PANEL Glucose Lvl 91 70 - 99 10/[address] CHEM PANEL BUN 13 7 - 22 10/[address] CHEM PANEL Creatinine 0.70 0.50 - 10/30 [facility] Lvl 1.40 [facility] CHEM PANEL Sodium Lvl 142 135 - 145 10/[address] CHEM PANEL Potassium 4.0 3.5 - 5.1 10/30 [facility] [place] [address] CHEM PANEL Chloride Lvl 108 95 - 109 10/[address] CHEM PANEL CO2 24 24 - 32 10/[address] CHEM PANEL Calcium Lvl 8.5 8.5 - 10.5 10/30 [facility] as /[address] [place] [address] CHEM PANEL Total 6.6 6.4 - 8.4 10/30 [facility] Protein [address] CHEM PANEL Albumin Lvl 3.0 3.5 - 5.0 10/30 [facility] [address] CHEM PANEL ALT 16 0 - 65 10/[address] CHEM PANEL AST 20 0 - 37 10/[address] CHEM PANEL Alk Phos 102 39 - 136 10/[address] CHEM PANEL Bili Total 0.4 0.2 - 1.3 10/[address] CHEM PANEL AGAP 14.0 10.0 - 10/30 [place] 20.0 /2019 [facility] CHEM PANEL B/C Ratio 19 6 - 25 10/[address] CHEM PANEL Globulin 3.6 2.7 - 4.2 10/[address] CHEM PANEL A/G Ratio 0.8 0.7 - 1.6 10/[address] CHEM PANEL eGFR 91 10/30 Result [facility] Comment: The Medical eGFR is Center [...] HEMATOLOGY WBC 8.0 3.7 - 10.4 10/[address] HEMATOLOGY RBC 3.97 4.20 - 10/30 [place] 5.40 [facility] HEMATOLOGY Hgb 12.5 12.0 - 10/30 [place] 16.0 [facility] HEMATOLOGY Hct 37.6 36.0 - 10/30 [place] 48.0 [facility] HEMATOLOGY MCV 94.8 80.0 - 10/30 [facility] 98.0 [facility] HEMATOLOGY MCH 31.4 27.0 - 10/30 [place] 31.0 [facility] HEMATOLOGY MCHC 33.1 32.0 - 10/30 [place] 36.0 [facility] HEMATOLOGY RDW 13.0 11.5 - 10/30 [facility] 14.5 [facility] HEMATOLOGY Platelet 229 133 - 450 10/[address] HEMATOLOGY MPV 8.8 7.4 - 10.4 10/[address] HEMATOLOGY PT 14.2 12.0 - 10/30 [place] 14.7 /2019 [facility] HEMATOLOGY INR 1.10 0.85 - 10/30 [place] 1.17 [facility] HEMATOLOGY PTT 64.7 22.9 - 10/30 [facility] 35.8 /2020 Medical Center HEMATOLOGY Segs 63.4 45.0 - 10/30 [facility] 75.0 /2020 Medical Center HEMATOLOGY Lymphocytes 26.0 20.0 - 10/30 [facility] 40.0 /2020 [facility] Center HEMATOLOGY Monocytes 8.5 2.0 - 12.0 10/30 [facility]2020 [facility] HEMATOLOGY Eosinophils 1.6 0.0 - 4.0 10/30 [place] /2020 [facility] Center HEMATOLOGY Basophils 0.5 0.0 - 1.0 10/30 [facility] /2020 [facility] HEMATOLOGY Neutrophils 5.1 1.5 - 8.1 10/30 [place] # /2020 [facility] Center HEMATOLOGY Lymphocytes 2.1 1.0 - 5.5 10/30 [facility] # /2020 [facility] Center HEMATOLOGY Monocytes # 0.7 0.0 - 0.8 10/30 [place] /2020 [facility] HEMATOLOGY Eosinophils 0.1 0.0 - 0.5 10/30 [place] # /2020 [facility] Center HEMATOLOGY Sed Rate 2 < OR = 30 03/15 Result June mm/hr Comment: Neuro
Lab test performed by:
[facility]
[address]
[place] [address]
Bryan Carpenter HEMATOLOGY SS-A (Ro) Ab <1.0 NEG <1.0 NEG 03/15 [facility]: [facility]
Lab test performed by:
[facility]
[address]
[place] [address]
Dr. Bryan Carpenter HEMATOLOGY SS-B (La) Ab [...] Immunity Screen, ACIF.

Lab test performed by:
[facility]
[address]
[place] [address]
Dr. Bryan Carpenter HEMATOLOGY EBV VCA IgM 62.60 03/15 Result [facility] Comment: Neuro U/mL Interpretatio n
---- -
<36.00 Negative
36.00-43.99 Equivocal<br/ > >43.99 Positive

Lab test performed by:
[facility]
[address]
[place] [address]
Dr. Bryan Carpenter HEMATOLOGY ANGIOTENSIN 9 9 - 67 03/15 Result [facility] CONVERTING Comment: Neuro ENZYME
Lab test performed by:
[facility]
[address]
[place] [address]
Dr. Bryan Carpenter HEMATOLOGY Varicella 0.69 03/15 [...]
<br/& gt;FASTING: YES

Lab test performed by:
Mikro Odeme | [facility]
[address]
[place] [address]
[address] Bryan Carpenter URINE AND UA Blood Negative Negative 05/06 [place] (05/06/17 3:21 PM) [place] URINE AND UA Nitrite Negative Negative 05/06 [place] (05/06/17 3:21 PM) [place] URINE AND UA Bili Negative Negative 05/06 [facility] *NA* /2017 [place] (05/06/17 3:21 PM) URINE AND UA Leuk Est Negative Negative 05/06 [facility] (05/06/17 3:21 PM) [place] URINE AND UA Sq Epi Few /LPF Few /LPF 05/06 STOOL [place] URINE AND UA Protein 30 mg/dL Negative 05/06 [facility] mg/dL [place] URINE AND UA Ketones 20 mg/dL Negative 05/06 [place] mg/dL [place] URINE AND UA Glucose Negative Negative 05/06 [facility] mg/dL mg/dL [place] URINE AND UA <=1.0 0.1 - 1.0 05/06 [facility] Urobilinogen mg/dL [place] URINE AND UA RBC 1 0 - 2 05/06 STOOL [place] URINE AND UA Mucus Few /LPF None Seen 05/06 MH STOOL /LPF /2017 [place] URINE AND UA WBC 2 0 - 5 05/06 [facility] [place] URINE AND UA Color Yellow Yellow 05/06 [facility] *NA* /2017 [place] (05/06/17 3:21 PM) URINE AND UA Spec Grav 1.019 <=1.030 05/06 STOOL [place] URINE AND UA pH 5.0 5.0 - 8.0 05/06 STOOL [place] URINE AND UA Turbidity Slight Clear 05/06 [facility] *ABN* /2017 [place] (05/06/17 3:21 PM) CHEM PANEL Lipase Lvl 166 73 - 393 05/06 [place] CHEM PANEL Amylase Lvl 42 25 - 115 05/06 [place] ELECTROLYTE Chloride Lvl 100 95 - 109 05/06 S [place] ELECTROLYTE Sodium Lvl 139 135 - 145 05/06 S [place] ELECTROLYTE Potassium 4.0 3.5 - 5.1 05/06 S Lvl [place] ELECTROLYTE eGFR 41 05/06 S Comment: The [place] eGFR is calculated using the CKD-EPI formula. [...] Total 0.7 0.2 - 1.3 05/06 S [place] ELECTROLYTE Alk Phos 82 39 - 136 05/06 S [place] ELECTROLYTE A/G Ratio 1.0 0.7 - 1.6 05/06 S [place] ELECTROLYTE ALT 19 0 - 65 05/06 S [place] ELECTROLYTE AST 15 0 - 37 01/ MH S [place] ELECTROLYTE Globulin 4.1 2.7 - 4.2 01/ MH S /2017 [place] ELECTROLYTE Albumin Lvl 4.3 3.5 - 5.0 05/06 MH S [place] ELECTROLYTE B/C Ratio 18 6 - 25 01/ MH S /2017 [place] ELECTROLYTE Calcium Lvl 9.4 8.5 - 10.5 01 MH S /2017 [place] ELECTROLYTE Total 8.4 6.4 - 8.4 05/06 MH S Protein [place] ELECTROLYTE CO2 27 24 - 32 05/06 MH S /2017 [place] ELECTROLYTE AGAP 16.0 10.0 - 05/06 MH S 20.0 [place] ELECTROLYTE Creatinine 1.36 0.50 - 05/06 MH S Lvl 1.40 [place] ELECTROLYTE BUN 24 7 - 22 05/06 MH S [place] ELECTROLYTE Glucose Lvl 77 70 - 99 05/06 MH S [place] HEMATOLOGY Lymphocytes 2.3 1.0 - 5.5 05/06 MH # /2017 [place] HEMATOLOGY Monocytes # 0.8 0.0 - 0.8 05/06 [place] HEMATOLOGY Eosinophils 0.2 0.0 - 4.0 05/06 MH [place] HEMATOLOGY Basophils 0.4 0.0 - 1.0 05/06 [place] HEMATOLOGY Segs-Bands # 6.4 1.5 - 8.1 05/06 [place] HEMATOLOGY Lymphocytes 24.4 20.0 - 05/06 MH 40.0 [place] HEMATOLOGY Monocytes 8.1 2.0 - 12.0 05/06 [place] HEMATOLOGY Segs 66.9 45.0 - 05/06 MH 75.0 [place] HEMATOLOGY MPV 8.4 7.4 - 10.4 05/06 [place] HEMATOLOGY Platelet 287 133 - 450 05/06 [place] HEMATOLOGY MCH 32.4 27.0 - 05/06 MH 31.0 [place] HEMATOLOGY RDW 12.5 11.5 - 05/06 MH 14.5 [place] HEMATOLOGY MCV 91.5 80.0 - 05/06 MH 98.0 [place] HEMATOLOGY MCHC 35.4 32.0 - 05/06 MH 36.0 [place] HEMATOLOGY Hct 42.5 36.0 - 05/06 48.0 [place] HEMATOLOGY WBC 9.6 3.7 - 10.4 05/06 [place] HEMATOLOGY Hgb 15.1 12.0 - 05/06 16.0 [place] HEMATOLOGY RBC 4.65 4.20 - 05/06 5.40 /2017 [place] CHEMISTRY eGFR 95 01/23 NA <sup>1</sup>R esult [...] CHEMISTRY AGAP 12.9 10.0 - 01/23 Normal [facility] 20.0 [facility] CHEMISTRY Calcium Lvl 8.5 8.5 - 10.5 01/23 Normal a [facility] CHEMISTRY Glucose Lvl 75 70 - 99 01/23 Normal <sup>4</sup>I T nterpretive Medical Data: Adult Center reference range values reflect the clinical guidelines
of the [place] [employer]. CHEMISTRY CO2 28 24 - 32 01/23 Normal [facility] CHEMISTRY Chloride Lvl 106 95 - 109 01/23 Normal [facility] CHEMISTRY Potassium 3.9 3.5 - 5.1 01/23 Normal [facility] CHEMISTRY BUN 5 7 - 22 01/23 LOW [facility] CHEMISTRY Creatinine 0.7 0.5 - 1.4 01/23 Normal [facility] CHEMISTRY Sodium Lvl 143 135 - 145 01/23 Normal [facility] HEMATOLOGY MPV 8.4 7.4 - 10.4 01/23 Normal [facility] HEMATOLOGY RBC 3.95 4.20 - 01/23 LOW [facility] [place] 5.40 /2012 [facility] HEMATOLOGY WBC 5.7 3.7 - 10.4 01/23 Normal [facility] HEMATOLOGY MCH 33.0 27.0 - 01/23 HI [facility] [place] 31.0 /2012 [facility] HEMATOLOGY Hct 37.4 36.0 - 09 Normal [place] 48.0 /2012 [facility] HEMATOLOGY Hgb 13.0 12.0 - 01/23 Normal [place] 16.0 /2012 [facility] HEMATOLOGY MCV 94.8 81.0 - 09 Normal [place] 99.0 /2012 [facility] Center HEMATOLOGY [...] 0.6 0.0 - 0.8 01/23 [facility] HEMATOLOGY Eosinophils 0.1 0.0 - [...] Basophils 0.4 0.0 - 1.0 01/23 Normal [facility] CHEMISTRY Lipase Lvl 109 73 - 393 01/22 Normal [facility] CHEMISTRY Globulin 3.1 2.0 - 4.0 01/22 Normal [facility] CHEMISTRY A/G Ratio 1.0 0.7 - 1.6 01/22 [facility] CHEMISTRY B/C Ratio 4 6 - 25 01/22 [facility] CHEMISTRY AGAP 11.9 10.0 - 01/22 [facility] 20.0 [facility] CHEMISTRY eGFR 95 01/22 NA [...] CHEMISTRY AST 16 0 - 37 01/22 [facility] CHEMISTRY CO2 26 24 - 32 01/22 [facility] CHEMISTRY Calcium Lvl 8.0 8.5 - 10.5 01/22 [facility] [place] [facility] CHEMISTRY Total 6.1 6.4 - 8.4 01/22 [facility] Protein [facility] CHEMISTRY Bili Total 0.5 0.2 - 1.3 01/22 [facility] CHEMISTRY Creatinine 0.7 0.5 - 1.4 01/22 [facility] CHEMISTRY Sodium Lvl 140 135 - 145 01/22 [facility] CHEMISTRY Chloride Lvl 106 95 - 109 01/22 [facility] CHEMISTRY Potassium 3.9 3.5 - 5.1 01/22 [facility] CHEMISTRY ALT 20 0 - 65 01/22 [facility] CHEMISTRY BUN 3 7 - 22 01/22 [facility] CHEMISTRY Glucose Lvl 115 70 - 99 01/22 HI <sup>5</sup>I MH T ex nterpretive Medical Data: Adult Center reference range values reflect the clinical guidelines
of the [place] [employer]. CHEMISTRY Alk Phos 74 39 - 136 01/22 Normal [facility] CHEMISTRY Albumin Lvl 3.0 3.5 - 5.0 01/22 LOW [facility] HEMATOLOGY Eosinophils 0.1 0.0 - 0.5 [place] [facility] HEMATOLOGY Basophils 0.3 0.0 - 1.0 01/22 Normal [facility] HEMATOLOGY Segs-Bands # 2.8 1.5 - 8.1 01/22 Normal [facility] HEMATOLOGY Lymphocytes 2.0 1.0 - 5.5 01/[place] /[place] [facility] HEMATOLOGY Monocytes # 0.6 0.0 - 0.8 01/[place] [facility] HEMATOLOGY Lymphocytes 35.5 20.0 - 01/22 Normal [place] 40.0 Medical Center HEMATOLOGY Monocytes 11.0 2.0 - 12.0 01/22 Normal [facility] HEMATOLOGY Eosinophils 2.1 0.0 - 4.0 01/22 Normal a s /2012 [facility] HEMATOLOGY Segs 51.1 45.0 - 01/22 Normal [place] 75.0 /2012 [facility] Center HEMATOLOGY Sed Rate 15 0 - 20 01/22 Normal [facility] HEMATOLOGY MCHC 34.6 32.0 - 01/22 Normal [place] 36.0 /2012 Medical Center HEMATOLOGY MCH 32.8 27.0 - 01/22 HI [place] 31.0 /2012 Medical Center HEMATOLOGY RDW 12.3 11.5 - 01/22 Normal [place] 14.5 /2012 Medical Center HEMATOLOGY MPV 8.2 7.4 - 10.4 01/22 Normal [facility] HEMATOLOGY Platelet 189 133 - 450 01/22 Normal [facility] HEMATOLOGY RBC 3.63 4.20 - 01/22 LOW [place] 5.40 /2012 [facility] HEMATOLOGY WBC 5.5 3.7 - 10.4 01/22 Normal [facility] HEMATOLOGY Hgb 11.9 12.0 - 01/22 LOW [place] 16.0 /2012 Medical Center HEMATOLOGY Hct 34.5 36.0 - 01/22 LOW [place] 48.0 [facility] HEMATOLOGY MCV 94.9 81.0 - 01/22 Normal [facility] 99.0 [facility] TUMOR CA 19-9 7.0 0.0 - 35.0 01/22 Normal [facility] CHEMISTRY Lactic Acid 0.9 0.5 - 2.2 01/21 Normal [facility] CHEMISTRY eGFR 95 01/21 NA [...] Potassium 4.1 3.5 - 5.1 01/21 Normal [facility] CHEMISTRY Chloride Lvl 107 95 - 109 01/21 [facility] CHEMISTRY Sodium Lvl 140 135 - 145 01/21 Normal [facility] CHEMISTRY Glucose Lvl 102 70 - 99 01/21 HI <sup>6</sup>I T ex nterpretive Medical Data: Adult Center reference range values reflect the clinical guidelines
of the [place] [employer]. CHEMISTRY BUN 7 7 - 22 01/21 Normal [facility] CHEMISTRY CO2 25 24 - 32 01/21 Normal [facility] CHEMISTRY Calcium Lvl 8.2 8.5 - 10.5 01/[place] [facility] CHEMISTRY Creatinine 0.7 0.5 - 1.4 01/21 Normal [facility] CHEMISTRY AGAP 12.1 10.0 - 01/21 Normal [place] 20.0 /2012 Medical Center CHEMISTRY Ketone 1.38 <=0.27 01/21 [facility] CHEMISTRY Magnesium 1.8 1.8 - 2.4 01/21 Normal [place] [facility] CHEMISTRY Lipase Lvl 119 73 - 393 01/21 Normal [facility] CHEMISTRY Alk Phos 66 39 - 136 01/21 Normal [facility] CHEMISTRY ALT 18 0 - 65 01/21 Normal [facility] CHEMISTRY Albumin Lvl 2.9 3.5 - 5.0 01/21 LOW [facility] CHEMISTRY AST 24 0 - 37 01/21 Normal [facility] CHEMISTRY Bili Total 0.7 0.2 - 1.3 01/21 Normal [facility] CHEMISTRY Total 5.7 6.4 - 8.4 01/21 LOW Protein [facility] CHEMISTRY B/C Ratio 22 6 - 25 01/21 Normal [facility] CHEMISTRY A/G Ratio 1.0 0.7 - 1.6 01/21 Normal [facility] CHEMISTRY Globulin 2.8 2.0 - 4.0 01/21 Normal [facility] HEMATOLOGY Monocytes 8.6 2.0 - 12.0 01/21 Normal [facility] HEMATOLOGY Lymphocytes 23.8 20.0 - 01/21 Normal [place] 40.0 Medical Center HEMATOLOGY Eosinophils 0.6 0.0 - 4.0 01/21 Normal s [facility] HEMATOLOGY Segs 66.4 45.0 - 01/21 Normal [place] 75.0 Medical Center HEMATOLOGY Monocytes # 0.8 0.0 - 0.8 01/21 Normal s [facility] HEMATOLOGY Lymphocytes 2.1 1.0 - 5.5 01/[place] [facility] HEMATOLOGY Basophils 0.6 0.0 - 1.0 01/21 Normal [facility] HEMATOLOGY Segs-Bands # 5.9 1.5 - 8.1 01/21 Normal [facility] HEMATOLOGY Eosinophils 0.1 0.0 - [...] Medical Center URINALYSIS Micro? Performed 01/20 Normal [facility] (01/19/2013 23:30:05) Nd dical Center URINALYSIS UA WBC None Seen None Seen 01/20 Normal [facility] (01/19/2013 23:30:05) Nd dical Center URINALYSIS UA Sq Epi Few /LPF Few 01/20 Normal [facility] (01/19/2013 23:30:05) Nd dical Center URINALYSIS UA RBC None Seen 0 - 2 01/20 Normal [facility] (01/19/2013 23:30:05) Me dical Center URINALYSIS UA Blood Negative Negative 01/20 Normal [facility] (01/19/2013 23:30:05) Me dical Center URINALYSIS UA 0.2 0.1 - 1.0 01/20 Normal [facility] Urobilinogen /2012 Medical Center URINALYSIS UA Bili Negative Negative 01/20 NA [facility] *NA* /2012 Medical (01/19/2013 23:30:05) Ce nter URINALYSIS UA Nitrite Negative Negative 01/20 Normal [facility] (01/19/2013 23:30:05) Me dical Center URINALYSIS UA Leuk Est Negative Negative 01/20 Normal [facility] (01/19/2013 23:30:05) Nd dical Center URINALYSIS UA Glucose Negative mg/dL Negative 01/20 Normal [facility] (01/19/2013 23:30:05) Nd dical Center URINALYSIS UA Ketones Negative mg/dL Negative 01/20 NA *NA* Medical (01/19/2013 23:30:05) Ce nter URINALYSIS UA pH 8.0 5.0 - 8.0 01/20 Normal [facility] URINALYSIS UA Protein Negative mg/dL Negative 01/20 Normal [facility] (01/19/2013 23:30:05) Nd dical Center URINALYSIS UA Turbidity Clear Clear 01/20 Normal [facility] (01/19/2013 23:30:05) Nd dical Center URINALYSIS UA Spec Grav 1.015 <=1.030 01/20 Normal [facility] URINALYSIS UA Color Yellow Yellow 01/20 NA /2012 Medical (01/19/2013 23:30:05) Ce nter CHEMISTRY Lipase Lvl 345 73 - 393 01/20 Normal [facility] CHEMISTRY Total 7.3 6.4 - 8.4 01/20 Normal [facility] CHEMISTRY Bili Total 0.5 0.2 - 1.3 01/20 Normal [facility] CHEMISTRY Albumin Lvl 3.8 3.5 - 5.0 01/20 Normal [facility] CHEMISTRY ALT 30 0 - 65 01/20 Normal Medical [place] CHEMISTRY Alk Phos 81 39 - 136 01/20 Normal [facility] CHEMISTRY Bili Direct 0.1 0.0 - 0.3 01/20 Normal [facility] CHEMISTRY AST 23 0 - 37 01/20 Normal [facility] CHEMISTRY Globulin 3.5 2.0 - 4.0 01/20 Normal [facility] CHEMISTRY A/G Ratio 1.1 0.7 - 1.6 01/20 Normal [facility] CHEMISTRY Bili 0.4 0.0 - 1.0 01/20 Normal [facility] HEMATOLOGY Basophils # 0.1 0.0 - 0.2 01/20 Normal [facility] /2012 Medical Center Pathology Reports No Data Provided for This Section Diagnostic Reports Report Value Date Source Chest 1 v for EXAM: XR CHEST 1 VIEW 10/30/2019 [facility] Cecilia Peralta edical Placement DX DATE: 10/31/2019 [...] pain since last admission in DLP:1306.16mGy-cm 05/06/2017 [facility] contrast only CT Comparison: CT abdomen [...] mild asymmetry in the renal size. SL: [id number] Abdomen/Pelvis CTA EXAM: CTA ABDOMEN. 01/22/2013 [facility] edical EXAM: CTA PELVIS. Center DATE: January [...] CT ABDOMEN AND PELVIS, W/O CONTRAST 01/02 [facility] contrast CT Center DATE: 01/20/2013 [...] CT ABDOMEN AND PELVIS, W/ CONTRAST, 01/19 [facility] contrast CT Center DATE: 01/20/2013 [...] Chest 1view EXAM: CHEST 1 VIEW 01/19/2013 [facility] DATE: January 19, 2013 at [...] Source Temperature Oral (F) 98.1 F 10/31/2019 [facility] Heart Rate 73 10/31/2019 [facility] Respitory Rate 20 10/31/2019 [facility] Systolic (mm Hg) 140 10/31/2019 [facility] dical [place] Diastolic (mm Hg) 84 10/31/2019 [facility] Temperature Oral (F) 98.2 F 10/31/2019 [facility] Heart Rate 80 10/31/2019 [facility] Respitory Rate 20 10/31/2019 [facility] ion Center Systolic (mm Hg) 160 10/31/2019 [facility] dical Center Diastolic (mm Hg) 90 10/31/2019 [facility] [place] Temperature Oral (F) 97.9 F 10/31/2019 [facility] Heart Rate 66 10/31/2019 [facility] Respitory Rate 20 10/31/2019 [facility] Center Systolic (mm Hg) 137 10/31/2019 [facility] dical Center Diastolic (mm Hg) 70 10/31/2019 [facility] Height 167.64 cm 10/31/2019 [facility] Weight 79.091 10/31/2019 [facility] BMI Calculated 28.14 10/31/2019 [facility] ion Center Systolic (mm Hg) 118 05/05/2019 [...] 12/21/2018 [facility] BMI Calculated 31.18 [facility]21[facility] BMI Calculated 29.6 10/19/2018 [facility] Height 167.64 cm 10/19/2018 [facility] Weight 83.182 10/19/2018 [facility] Systolic (mm Hg) 106 10/19/2018 [facility] Diastolic (mm Hg) 70 10/19/2018 [facility] Respitory Rate 16 10/19/[facility] 74 [facility] BMI Calculated 27.5 09/08/2018 [facility] Weight 77.273 09/08/2018 [facility] Height 167.64 cm 09/08/2018 [facility] Respitory Rate 16 09/08/2018 [facility] Heart Rate 87 09/08/2018 [facility] Systolic (mm Hg) 105 09/08/2018 [facility] [place] Diastolic (mm Hg) 68 09/08/2018 [facility] Ne uro Heart Rate 72 05/07/2017 [facility] [place] Systolic (mm Hg) 115 05/07/2017 [facility] [place] Diastolic (mm Hg) 68 05/07/2017 [facility] [place] Respitory Rate 16 05/07/2017 [facility] [place] Temperature Oral (F) 98.0 F 05/07/2017 [facility] [place] Temperature Oral (F) 97.7 F 05/07/2017 [facility] [place] Systolic (mm Hg) 111 05/07/2017 [facility] [place] Diastolic (mm Hg) 65 05/07/2017 [facility] [place] Heart Rate 70 05/07/2017 [facility] [place] Respitory Rate 17 05/07/2017 [facility] [place] Weight 61.364 05/06/2017 [facility] [place] Temperature Oral (F) 98.2 F 05/06/2017 [facility] [place] Heart Rate 83 05/06/2017 [facility] [place] Respitory Rate 18 05/06/2017 [facility] [place] Systolic (mm Hg) 102 05/06/2017 [facility] [place] Diastolic (mm Hg) 55 05/06/2017 [facility] [place] Heart Rate 79 01/23/2013 [facility] Temperature Oral (F) 98.1 F 01/23/2013 [facility] Respitory Rate 18 01/23/2013 [facility] ion Center Systolic (mm Hg) 133 01/23/2013 [facility] dical Center Diastolic (mm Hg) 69 01/23/2013 [facility] edical Center Diastolic (mm Hg) 68 01/23/2013 [facility] edical Center Systolic (mm Hg) 129 01/23/2013 [facility] dical Center Heart Rate 67 01/23/2013 [facility] Center Respitory Rate 18 01/23/2013 [facility] ion Center Temperature Oral (F) 98.4 F 01/23/2013 [facility] Medical Center Heart Rate 65 01/23/2013 [facility] Center Systolic (mm Hg) 106 01/23/2013 [facility] dical Center Respitory Rate 18 01/23/2013 [facility] ion Center Diastolic (mm Hg) 59 01/23/2013 [facility] edical Center Temperature Oral (F) 98.5 F 01/23/2013 [facility] Medical Center Height 158.4 cm 01/20/2013 [facility] Height 160.02 cm 01/20/2013 [facility] Center Weight 65 01/20/2013 [facility] Weight 65 01/16/2013 [facility] Diastolic (mm Hg) 78 01/16/2013 [facility] edical Center Systolic (mm Hg) 119 01/16/2013 [facility] dical Center Temperature Oral (F) 98.5 F 01/16/2013 [facility] Medical Center Respitory Rate 18 01/16/2013 [facility] ion Center Heart Rate 87 01/16/2013 [facility] Encounters Location Location Encounter Encounter Reason Attending ADM [place] Stat [place] Source Details Type Number For Provider Date Date Visit [facility] Outpatient [id number] ABD ATILLA 01/16 Active [facility] 0 [facility]IN [facility] RAULITO [id number] ATILLA 01/19 01/19 Discharg [facility] ERTAN [facility]2012 [facility] Inpatient [id number] HILARY 01/20 01/23 Dischar g [facility] Medical 3 SAJJA /2012 [facility] Emergency [id number] Bryan 05/06 05/07 [facility] 4 Lin[place] /2017 [place] [facility] Outpatient [id number] ANGELA 07/15 [facility] [place] Out[facility] [id number] ANGELA 07/15 [facility] Outpatient [id number] Angela 08/03 [facility] [place] Outpatient [id number] ANGELA / Active [facility] [place] [facility] Phone [id number] 08/18 08/20 [facility] [place] [facility] [id number] Angela 09/08 [facility] Outpatient [id number] Angela 09/08 09/09 [facility] 4 [facility] [place] Outpatient [id number] Angela 10/19 [facility] Outpatient [id number] Angela 10/19 10/20 [facility] 5 [facility] [place] Outpatient [id number] Angela 12/21 Active [facility] Outpatient [id number] Angela 12/21 12/22 [facility] 6 [facility] [place] Outpatient [id number] Angela 03/15 Active [facility] [place] [facility] Outpatient [id number] Angela 03/15 03/16 [facility] 7 [facility] [place] Outpatient [id number] Angela 03/22 Active [facility] Outpatient [id number] Angela 03/22 03/23 [facility] 8 [facility] [place] Outpatient [id number] Angela 05/05 Active [facility] Outpatient [id number] Angela 05/05 05/06 [facility] 9 [facility] [place] Out[facility] [id number] Angela 08/03 [facility] Ambulatory [id number] Angela 08/03 08/03 [facility] Pre-Reg 0 [facility] Observation [id number] Afnan 10/30 10/30 00 Pearson Streetaad /2019 [facility] Outpatient [id number] Angela 05/27 Active [facility] 1 [place] [facility]us [facility] Outpatient [id number] POST ATILLA [place] [address] FOLLOW [facility] Center Procedures Procedure Code Date Perfomer Comments Source cholecys [id number] 1gall bladder 2011 [facility] as <sup>1</sup> minicus in right knee 2 011 Medical bladder repair [place] appendectomy 1992 total hysterectomy 1979 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 cholecys<sup>1< [id number] gall bladder 2011 Mi elizabeth /sup> minicus in right knee 201 1 Neuro, bladder repair [facility] appendectomy 1992 [place], total hysterectomy 1979 [place] 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 Assessment and Plan Assessment and Plan Date Source Extracted from:Title: History and Physical 10/31/2019 [facility] [place] [facility] Author: Smith Estevez DO Date: 10/31/19 The patient is a 63 year old woman with PMH of HTN, meralgia paresthetica s/p recent lumbosacral plexopathy on 08/2019, cervical spondylosis who was transferred from [facility] to findings of PE [...] embolus and infarction(I26.99) Ordered: Admit/Condition, 10/31/19 2:06:00 CDT, Alf tatus: Out Patient with Observation Services, Telemetry Capable Location, Location: [address] [place], Expected LOS: 2 Midnights, Yung Busch DO, [...] History Date Source Social History TypeResponse 10/31/2019 [facility] Alcohol Never Employment/School 1 Substance Abuse Use: None. Smoking Status Never smoker; Exposure to Tobacco Smoke None; Cigarette Smoking Last 365 Days No; Reg Smoking Cessation Counseling No entered on: 10/31/19 1May reledase medical information to Tao Hernandez ou Social History TypeResponse 07/18/2018 [facility] Employment/School 1 Smoking Status Never smoker; Exposure to Tobacco Smoke None; Cigarette Smoking Last 365 Days No; Reg Smoking Cessation Counseling No entered on: 05/05/19 1May reledase medical information to Tao Hernandez ouse No data available for this 05/07/2017 [facility] section Family History No Data Provided for This Section Advance Directives No Data Provided for This Section Functional Status No Data Provided for This Section
--- OUTSIDE RECORDS SUMMARY | 2020-05-20 09:43 | XMS REPORT | Continuity of Care Document ---
:1955 Author Organization [facility] t Address [address] [place] [address] Care Team Providers Name Role Phone Nayla Alonzo MD Primary Care Physician Chel Florian MD Attending Clinician Florentin Busch Attending Clinician Lauryn Fountain MD Attending Clinician Danae TAYLOR Attending Clinician Wanda Suarez NP Attending Clinician Reza CHERY, S. Attending Clinician Chaparro RAVI Attending Clinician Unavailable Vahe HOYT Attending Clinician Unavailable Tulio Palacios Attending Clinician Kevin Stiles Attending Clinician [facility] Attending Clinician Unavailable Danitza Torres MD Attending Clinician Tima Melton Jr Attending Clinician Mike Hannah Admitting Clinician ANIVAL Admitting Clinician Unavailable Payers Payer Name Policy Type Policy Effective Date Expiration Date Sour ce Number MEDICAREMEDICARE PART [id number] 2018 Ho alex A AND 00:00:00 Alevism [id number] 2018- ANEGLICA BellMedicare COMMERCIAL MISCMISC [id number] 2009 [place] [id number] 00:00:00 Met anjali 05/2009-PresentCommerc ial CIGNA - MGD CARECIGNA [id number] [facility] HMO/POS/OPEN 00:00:00 - Medical [id number] 013-PresentHMO/POS Problems Condition Condition Condition Status Onset Resolution Last Treating Co mments Source Name Details Category Date Date Treatment Clinician Date PE, Diagnosis Active 2019-11-01 Mem oria PULMONARY 10-29 14:09:00 l DVT LEFT PE, 00:00: Agus LEG PULMONARY 00 DVT LEFT LEG Active 10/30/2019 [facility] Follow-up Follow-up Disease Active Lacho romero examinatio examinatio 6-18 Me thodi n n 00:00: st following following 00 surgery surgery S/P lumbar S/P lumbar Disease Active H dany laminectom laminectom 5-19 Me thodi y y 00:00: st 00 DDD DDD Disease Active Odell (degenerat (degenerat 4-13 Me thodi jhon disc jhon disc 00:00: st disease), disease), 00 lumbar lumbar Spinal Spinal Disease Active Odell stenosis stenosis 4-13 Method i of lumbar of lumbar 00:00: st region region 00 with with neurogenic neurogenic claudicati claudicati on on Thoracic Thoracic Disease [facility] radiculopa 4-13 Me thodi thy thy 00:00: st 00 Claudicati Claudicati Disease Active 2020- [place] on on 3-03 Methodi 00:00: st 00 Bilateral Bilateral Disease Active Lacho ston carotid carotid 2-04 Methodi artery artery 00:00: st stenosis stenosis 00 PAD PAD Disease Active Odell (periphera (periphera 2-04 Me thodi l artery l artery 00:00: st disease) disease) 00 Chronic Chronic Disease Active Odell back pain back pain 6-05 Meth nki 00:00: st 00 Generalize Generalize Disease Active H darynston d d 4-30 Methodi abdominal abdominal 00:00: st pain pain 00 Right Right Disease Active Odell upper upper 07-26 Methodi quadrant quadrant 00:00: st pain pain 00 Slow Slow Disease Active Odell transit transit 07-26 Methodi constipati constipati 00:00: st on on History of History of Disease Active H dany cholecyste cholecyste 07-26 Mo thodi ctomy ctomy 00:00: st 00 Essential Essential Disease Active Lacho ston hypertensi hypertensi 07-26 Me thodi on on 00:00: st 00 Splenic Splenic Disease Active Odell artery artery 07-26 Methodi aneurysm aneurysm 00:00: st 00 Anxiety Anxiety Disease Active Odell 07-26 Methodi 00:00: st 00 ABDOMINAL Diagnosis Active 2017-05-06 Memoria PAIN/LOSS 1- 18:11:00 l OF 00:00: Agus APPETITE ABDOMINAL 00 PAIN/LOSS OF APPETITE Active 05/06/2017 [facility] SURGERY Diagnosis Active 2013-01-20 Mo moria THIS 01-19 08:28:00 l MORNING, SURGERY 00:00: Maria E nn PROBLEMS THIS 00 BREATHING MORNING, PROBLEMS BREATHING Active 01/19/2013 [facility] POST Diagnosis Active 2013-03-05 Mem oria FOLLOW UP 01-19 15:20:00 l POST 00:00: Agus FOLLOW UP 00 Active 01/19/2013 [facility] BDDC-WEIGH Diagnosis Active 2013-01-19 Memoria T LOSS 01-17 08:37:00 l 00:00: [place] BDDC-WEIGH 00 T LOSS Active 01/17/2013 [facility] 783.21 - Diagnosis Active 2013-12-25 M emoria ABNORMAL 01-16 02:47:00 l LOSS O 783.21 - 00:01: Dwight sanon 576.0 - ABNORMAL 00 POSTCHO LOSS O 576.0 - POSTCHO Active 01/16/2013 MARIA VICTORIA Sauer ABD PAIN Diagnosis Active 2013-01-16 M emoria 01-11 13:45:00 l ABD PAIN 00:00: Dwight sanon 00 Active 01/11/2013 [facility] Acid Problem Resolve 2013-01-25 Abdiel leigh ann reflux d 21:01:15 l Acid Agus reflux Resolved Problem 01/25/2013 [facility] HTN - Problem Resolve 2013-01-25 Abdiel leigh ann Hypertensi d 21:01:15 l on HTN - Agus Hypertensi on Resolved Problem 01/25/2013 [facility] Gastroesop Problem Resolve 2019-11-02 Memoria hageal d 22:38:04 l reflux Agus disease Gastroesop (disorder) hageal reflux disease (disorder) Resolved Problem 11/02/2019 [facility] Lumbosacra Problem Resolve 2019-11-02 Memoria l plexus d 22:38:04 l neuropathy Dwight n (disorder) Lumbosacra l plexus neuropathy (disorder) Resolved Problem 11/02/2019 [facility] Cervical Problem Active 2019-11-02 Mem oria spondylosi 22:38:04 l s Cervical Dwight n (disorder) spondylosi s (disorder) Active Problem 11/02/2019 [facility] Hypertensi Problem Active 2019-11-02 M emoria ve 22:38:04 l disorder, [place] systemic Hypertensi arterial ve (disorder) disorder, systemic arterial (disorder) Active Problem 11/02/2019 [facility] Menopausal Problem Active 2019-11-02 M emoria syndrome 22:38:04 l (disorder) Dwight n Menopausal syndrome (disorder) Active Problem 11/02/2019 [facility] Meralgia Problem Active 2019-11-02 Mem oria parestheti 22:38:04 l ca Meralgia Dwight n (disorder) parestheti ca (disorder) Active Problem 11/02/2019 [facility] Pituitary Problem Active 2019-11-02 Me moria adenoma 22:38:04 l (disorder) Dwight n Pituitary adenoma (disorder) Active Problem 11/02/2019 Data migrated from [facility] on 12/25/14. [facility] Ulcer of Problem Active 2019-11-02 Mem oria lower 22:38:04 l extremity Ulcer of Her melendez (disorder) lower extremity (disorder) Active Problem 11/02/2019 [facility] ABDMNAL Diagnosis Active 2013-01-20 Me moria PAIN 08:28:00 l UNSPCF ABDMNAL [place] SITE PAIN UNSPCF SITE Active [facility] Unspecifie Problem 2017-05-09 2017-05-09 Memoria d 1-04 05:06:50 05:06:50 l abdominal 06:00: [place] pain Unspecifie 00 d abdominal pain 05/06/2017 05/09/2017 [facility] Allergies, Adverse Reactions, Alerts Allergy Allergy Status Severity Reaction(s) Onset Inactive Treating Comm ents Source Name Type Date Date Clinician Morphine Propensi Active Other (See Makes her Odell ty to Comments) 01-15 loud and Metho di adverse 00:00: crazy st reaction 00 s to drug Diazepam Propensi Active Other (See Makes her Odell ty to Comments) 01-15 crazy and Meth nik adverse 00:00: wild st reaction 00 s to drug Midazola Propensi Active Other (See Makes her Odell m ty to Comments) 01-15 crazy and Meth nik adverse 00:00: loud st reaction 00 s to drug midazola midazola Active 2011-05 Memori a m<sup>2< m<sup>2< 0-23 l /sup> /sup> 05:00: morphine morphine Active 2011-05 Memori a <sup>3</ <sup>3</ 0-23 l sup> sup> 05:00: midazola DA Active SV 2009-05 [facility] m HCl 05-13 00:00: [address] diazepam DA Active SV 2009-05 [facility] 05-13 00:00: [address] morphine DA Active MO 2009-05 [facility] 05-13 00:00: [address] Valium Valium Active Memoria l Agus morphine morphine Active Nikoori a l Agus cortison cortison Active Memori a e e larry Goldsmith Family History Family Member Diagnosis Comments Start Date Stop Date Source Natural father Cancer [facility] thodist Natural father Liver cancer Odell Alevism Natural father Liver disease Od[place] Alevism Natural father Lung cancer [facility] ethodist Maternal grandfather Heart disease H dany Alevism Maternal grandfather Hypertension [facility] Alevism Maternal grandmother Heart disease H dany Alevism Maternal grandmother Hypertension [place] Alevism Natural mother Cancer Odell Me thodist Natural mother Colon cancer [place] Alevism Natural mother Ovarian cancer [place] Alevism Natural mother Stomach cancer [place] Alevism Social History Social Habit Start Date Stop Date Quantity Comments Source Sex Assigned At [facility] ethodist Exposure to Not sure Odell Metho dist SARS-CoV-2 (event) Tobacco use and 2019-09-20 2019-09-20 Never used [facility] ethodist exposure 00:00:00 00:00:00 Alcohol intake 2019-09-20 2019-09-20 Current [facility] thodist 00:00:00 00:00:00 non-drinker of alcohol (finding) Social History 2017-05-07 2017-05-07 [facility] ermann 04:13:00 04:13:00 Smoking Status Start Date Stop Date Source Never smoker Odell Walkeris t Medications Ordered Filled Start Stop Current Ordering Indication Dosage Frequency Signature Comments Components Source Medication Medication Date Date Medication? Clinician (SIG) Name Name remove No Notes: Memoria patch 01 Remove l 05:40: patch 12 [place] 00 hours after applicatio n each day. sennosides, No Notes: Abdiel leigh ann RETIREMENT 7- (Same as: l 02:00: Senokot) [place] 00 tramadol No Notes: Not Mem oria hydrochlori 6-30 to exceed l de 50 MG 19:00: 400mg/day. Her melendez Oral Tablet 00 (Same As: Ultram) Lidocaine Yes 1 patch, Abdiel leigh ann Hydrochlori 6-30 TOP, l de 0.05 17:45: Daily, Irving MG/MG 00 Remove Transdermal after 12 Patch hours, # [Lidoderm] 30 patch, 0 Refill(s), Pharmacy: [facility] #[id number], 167.64, cm, 10/31/19 2:23:00 CDT, [...] l 3350 14:00: in 8 oz of Agus 00 water or juice. (Same as: Miralax) Aspirin 81 2020-0 No Notes: Do Me moria MG Enteric 6-30 not crush l Coated 14:00: or chew. Agus Tablet 00 (Same As: Ecotrin) Prilosec 2020-0 No 20 mg, Memoria 6-30 Route: PO, l 14:00: Daily, Agus 00 Dosing Weight 83.636, kg, Start date: 10/31/19 9:00:00 CDT, Duration: 30 day, Stop date: 11/29/19 9:00:00 CDT pregabalin 2020-0 No Notes: Memor ia 6-30 (Same as: l 14:00: Lyrica) Agus 00 quinapril 2020-0 No 20 mg, 1 Abdiel leigh ann 6-30 tab, l 14:00: Route: PO, Agus 00 Drug form: TAB, Daily, Dosing Weight 83.636, kg, Start date: 10/31/19 9:00:00 CDT, Duration: 30 day, Stop date: 11/29/19 9:00:00 CDT Protonix No Notes: Memoria 6-30 Tablet l 14:00: should not [place] 00 be chewed or crushed. (Same as: Protonix) Acetaminoph No Notes: Abdiel leigh ann en 325 MG / 6-30 (Same as: l Hydrocodone 08:17: [place] Maria E nn Bitartrate 00 325/5) Do 5 MG Oral not exceed Tablet 4gm/day of [[place] acetaminop 5/325] hen. Hydromorpho No Notes: Abdiel [...] 6-30 IVP, PRN, l Bolus 07:25: 2,700 [place] (Heparin 00 unit, 2.7 Dosing mL, Drug [...] not exceed l Hydrocodone 07:17: 4gm/day of [place] Bitartrate 00 acetaminop 10 MG Oral hen. Tablet (Same as: [place] 325/10) clorazepate 2020-0 No Notes: Abdiel leigh ann 6-30 (Same As: l 07:17: Tranxene-T 00 ) tizanidine 2020-0 No Notes: Memor ia 6-30 (Same As: l 07:17: Zanaflex) pregabalin 2020-0 Yes 100 mg = 1 M emoria 100 mg oral 6-30 cap, PO, l capsule 07:11: QID, # 90 Maria E nn 00 cap, 0 Refill(s) tizanidine 2020-0 No 4 mg = 1 Mem oria 4 mg oral 6-30 tab, PO, l tablet 07:11: Q8H, PRN 00 for muscle spasms, # 90 tab, 0 Refill(s) clorazepate 2020-0 No 7.5 mg = 1 Memoria 7.5 mg oral 6-30 tab, PO, l tablet 07:11: TID, PRN Anxiety, 0 Refill(s) linaclotide 2020-0 Yes 145 Memori a 0.145 MG 6-30 microgram l Oral 07:11: = 1 cap, [place] Capsule 00 PO, Daily, [Linzess] 30 minutes [...] No Notes: Memori a 6-30 (Same as: 07:06: Melatonin) doxycycline 2020-0 2020- No 100mg QD Take 100 Yoo (VIBRAMYCIN 5-22 05-22 mg by Method i ) 100 MG 11:10: 00:[address] capsule 38 :00 daily. pregabalin 2020-0 Yes 100mg [id number] Take 100 Yoo (LYRICA) 5-22 [id number] mg by Meth nik 100 MG 11:10: 3D mouth 3 st capsule 32 (three) times a day. quinapril 2020-0 Yes 20mg QD Take 20 mg [place] (ACCUPRIL) 5-22 by mouth Metho di 20 MG 11:10: nightly. st tablet 32 HYDROcodone 2020-0 Yes acute pain 1{tbl} Q.[id number] Take 1 Yoo -acetaminop 5-22 [id number] tablet by Methodpatt hen (NORCO) 11:10: 3D [...] needed for moderate pain .acute pain. tiZANidine 2019-0 Yes 4mg Q.5D Take 4 mg [place] (ZANAFLEX) 5-22 by mouth 2 Met hodi 4 MG tablet 11:10: (two) st 32 times a day as needed for muscle spasms. linaclotide 2019-0 2020- No 145ug Take 145 Yoo (LINZESS) 4-01 04-01 mcg by Methodi 145 mcg 15:15: 00:[address] capsule 12 :00 needed. omega-3 2019-2019- No 300mg QD Take 300 [place] [...] tab, PO, l Coated 17:17: Daily, # [place] Tablet 00 90 tab, 3 Refill(s) cefdinir Yes 300 mg = 1 Mem oria 300 MG Oral 1-03 cap, PO, l Capsule 16:58: BID, # 20 Maria E nn 00 cap, 0 Refill(s) Estrogens, Yes 0.3 mg = 1 M emoria Conjugated 8-22 tab, PO, l (RETIREMENT) 0.3 13:52: Daily, # Herm emmett MG [...] 16:41: = 1 ea, Her melendez [[facility]] 00 BUC, BID, 0 Refill(s) buprenorphi 2020- No 150 [place] ne 6-19 04-01 microgram Methodi (BELBUCA) 00:00: 00:00 = 1 ea, st 150 mcg 00 :00 BUC, BID, film buccal 0 film Refill(s) amitriptyli Yes 20 mg = 2 M cherrie ne 10 mg 4-18 tab, PO, l oral tablet 15:16: Bedtime, # Agus 24 180 tab, 3 Refill(s), Pharmacy: [facility] #[id number] amitriptyli 2020- No 20 mg = 2 Odell ne (ELAVIL) 4-18 05-11 tab, PO, Met hodi 10 MG 00:00: 00:00 Bedtime, # st tablet 00 :00 180 tab, 3 Refill(s), Pharmacy: [facility] #[id number] CREON 2019- No TAKE ONE Odell 12,000-38,0 4-02 02-04 CAPSULE BY Fabian domingo [...] Sodium No 1,000 mL, Memori a Chloride 1-04 1000 l 0.9% 18:46: ml/hr, Agus (Bolus) IV 00 Infuse Over: 1 hr, Route: IV, 1,000, Drug form: INJ, ONCE, Priority: STAT, Dosing Weight 61.364 kg, Start date: 05/06/17 12:46:00 SECURITY DISPATCHER, Stop date: 05/06/17 12:46:00 SECURITY DISPATCHER Saline No Notes: Memoria Flush 0.9% 04 (Same as: l 18:46: BD Agus 00 [...] needed for pain, Substituti on Allowed, TAB [place] No [place] 1 tab, Memoria 10/325 oral [...] Duration: 30 day, Stop date: 02/21/13 12:16:00 [place] No [place] 1 tab, Memoria 10/325 oral 01-22jja Route: PO, l tablet 07:14: Drug Form: Maria E nn 00 TAB, Dosing Weight 65, kg, Q4H, PRN Pain, NOW, Start date: 01/22/13 2:14:00, Duration: 30 day, Stop date: 10/22/13 2:13:00 Remeron 2012- No [place] 15 mg, [...] 01-21 Sajja pkt, l 14:38: Route: PO, Irving 00 Drug form: PWDR, Daily, Dosing Weight [...] Route: l 11:00: SUB-Q, Drug form: INJ, [id number], Dosing Weight 65, kg, Start date: 01/20/13 6:00:00, Duration: 30 day, Stop date: 02/18/13 6:00:00 NS + KCL No Elyssa 1,000 mL, Me moria 20mEq/L 9-20 Luis Rate: 125 l 1000ml 10:25: ml/hr, Irving (Premix) 00 Infuse 1,000 mL over: 8 [...] 02/19/13 5:22:00 docusate Yes Substituti Mem oria 9-20 on Allowed l 10:21: [place] 15 ondansetron No Elyssa 4 mg, 2 [...] -20 Hardeep microgram, l 08:43: Catherine Route: Irving 00 IVP, ONCE, Dosing Weight 65, kg, Priority: STAT, Start date: 01/20/13 3:43:00, Stop date: 01/20/13 3:43:00 Zofran No Willian 4 mg, 2 Memoria - Hardeep mL, Route: l 06:32: Catherine IVP, Drug Maria E nn 00 form: INJ, ONCE, Dosing Weight 65, kg, Priority: STAT, Start date: 01/20/13 1:32:00, Stop date: 01/20/13 1:32:00 fentanyl No Willian 50 Memoria -20 Hardeep microgram, l 04:31: Catherine Route: [place] 00 IVP, ONCE, Dosing Weight 65, kg, [...] date: 01/19/13 23:37:00, Bolus DoseBolus Dose fentanyl 2012- No Willian 50 Memoria 9-20 Hardeep microgram, l 03:13: Catherine 1 mL, Irving 00 Route: IVP, Drug form: INJ, ONCE, [...] Temperature Oral (F) 2019-10-31 20:24:00 98.1 F [facility] Agus Heart Rate 2019-10-31 20:24:00 Memorial Agus Respitory Rate 2019-10-31 20:24:00 Memori al [place] Systolic (mm Hg) 2019-10-31 20:24:00 Abdiel rial Agus Diastolic (mm Hg) 2019-10-31 20:24:00 Mem orial [place] Temperature Oral (F) 2019-10-31 16:12:00 98.2 [facility] [place] Heart Rate 2019-10-31 16:12:00 Memorial Agus Respitory Rate 2019-10-31 16:12:00 Memori al Agus Systolic (mm Hg) 2019-10-31 16:12:00 Abdiel rial Agus Diastolic (mm Hg) 2019-10-31 16:12:00 Mem orial [place] Temperature Oral (F) 2019-10-31 12:25:00 97.9 F [facility] [place] Heart Rate 2019-10-31 12:25:00 Memorial Agus Respitory Rate 2019-10-31 12:25:00 Memori al [place] Systolic (mm Hg) 2019-10-31 12:25:00 Abdiel rial Agus Diastolic (mm Hg) 2019-10-31 12:25:00 Mem orial [place] Height 2019-10-31 07:23:00 167.64 cm Memorial [place] Weight 2019-10-31 07:23:00 Memorial Agus BMI Calculated 2019-10-31 07:23:00 Memori al [place] Systolic blood 2019-09-22 07:44:14 153 mm[Hg] Baoto n Alevism pressure Diastolic blood 2019-09-22 07:44:14 70 mm[Hg] [place] on Alevism pressure Heart rate 2019-09-22 07:44:14 65 /min Odell Alevism Body temperature 2019-09-22 07:44:14 36.78 Radha [place] Alevism Respiratory rate 2019-09-22 07:44:14 18 /min [place] Alevism Oxygen saturation in 2019-09-22 07:44:14 97 /min Odell Alevism Arterial blood by Pulse oximetry Body height 2019-09-19 10:00:00 167.6 cm Odell Alevism Body weight 2019-09-19 10:00:00 80.241 kg Odell Alevism BMI 2019-09-19 10:00:00 28.55 kg/m2 Odell Alevism Systolic (mm Hg) 2019-05-05 16:51:00 Abdiel rial Agus Diastolic (mm Hg) 2019-05-05 16:51:00 Mem orial Agus Heart Rate 2019-05-05 16:51:00 [facility] [place] Respitory Rate 2019-05-05 16:51:00 Memori al [place] Height 2019-05-05 16:51:00 165.1 cm Memorial [place] Weight 2019-05-05 16:51:00 Memorial Agus BMI Calculated 2019-05-05 16:51:00 Memori al Agus Systolic (mm Hg) 2019-03-22 17:27:00 Abdiel rial Agus Diastolic (mm Hg) 2019-03-22 17:27:00 Mem orial Agus Heart Rate 2019-03-22 17:27:00 Memorial Agus Respitory Rate 2019-03-22 17:27:00 Memori al [place] Height 2019-03-22 17:27:00 165.1 cm Memorial Agus Weight 2019-03-22 17:27:00 Memorial Agus BMI Calculated 2019-03-22 17:27:00 Memori al Agus Systolic (mm Hg) 2019-03-15 17:56:00 Abdiel rial [place] Diastolic (mm Hg) 2019-03-15 17:56:00 Mem orial [place] Heart Rate 2019-03-15 17:56:00 Memorial Agus Respitory Rate 2019-03-15 17:56:00 Memori al Agus Height 2019-03-15 17:56:00 165.1 cm Memorial [place] Weight 2019-03-15 17:56:00 Memorial Agus BMI Calculated 2019-03-15 17:56:00 Memori al [place] Systolic (mm Hg) 2018-12-21 16:44:00 Abdiel rial [place] Diastolic (mm Hg) 2018-12-21 16:44:00 Mem orial Agus Heart Rate 2018-12-21 16:44:00 [facility] [place] Respitory Rate 2018-12-21 16:44:00 Memori al [place] Height 2018-12-21 16:44:00 165.1 cm Memorial Agus Weight 2018-12-21 16:44:00 [facility] [place] BMI Calculated 2018-12-21 16:44:00 Memori al Agus BMI Calculated 2018-10-19 16:19:00 Memori al Agus Height 2018-10-19 16:19:00 167.64 cm Memorial [place] Weight 2018-10-19 16:19:00 Memorial Agus Systolic (mm Hg) 2018-10-19 16:19:00 Abdiel rial [place] Diastolic (mm Hg) 2018-10-19 16:19:00 Mem orial [place] Respitory Rate 2018-10-19 16:19:00 Memori al [place] Heart Rate 2018-10-19 16:19:00 Memorial Agus BMI Calculated 2018-09-08 19:24:00 Memori al [place] Weight 2018-09-08 19:24:00 [facility] [place] Height 2018-09-08 19:24:00 167.64 cm [facility] [place] Respitory Rate 2018-09-08 19:24:00 Memori al Agus Heart Rate 2018-09-08 19:24:00 [facility] [place] Systolic (mm Hg) 2018-09-08 19:24:00 Abdiel rial Agus Diastolic (mm Hg) 2018-09-08 19:24:00 Mem orial Agus Heart Rate 2017-05-07 04:11:00 [facility] [place] Systolic (mm Hg) 2017-05-07 04:11:00 Abdiel rial [place] Diastolic (mm Hg) 2017-05-07 04:11:00 Mem orial Agus Respitory Rate 2017-05-07 04:11:00 Memori al [place] Temperature Oral (F) 2017-05-07 04:11:00 98.0 F [facility] [place] Temperature Oral (F) 2017-05-07 02:30:00 97.7 F Memorial Agus Systolic (mm Hg) 2017-05-07 02:30:00 Abdiel rial Agus Diastolic (mm Hg) 2017-05-07 02:30:00 Mem orial Agus Heart Rate 2017-05-07 02:30:00 [facility] [place] Respitory Rate 2017-05-07 02:30:00 Memori al Agus Weight 2017-05-06 18:43:00 Memorial Agus Temperature Oral (F) 2017-05-06 18:43:00 98.2 F [facility] [place] Heart Rate 2017-05-06 18:43:00 Memorial Agus Respitory Rate 2017-05-06 18:43:00 Memori al Agus Systolic (mm Hg) 2017-05-06 18:43:00 Abdiel rial [place] Diastolic (mm Hg) 2017-05-06 18:43:00 Mem orial [place] Heart Rate 2013-01-23 12:37:00 Memorial Agus Temperature Oral (F) 2013-01-23 12:37:00 98.1 F [facility] [place] Respitory Rate 2013-01-23 12:37:00 Memori al Agus Systolic (mm Hg) 2013-01-23 12:37:00 Abdiel rial Agus Diastolic (mm Hg) 2013-01-23 12:37:00 Mem orial Agus Diastolic (mm Hg) 2013-01-23 10:13:00 Mem orial Agus Systolic (mm Hg) 2013-01-23 10:13:00 Abdiel rial Agus Heart Rate 2013-01-23 10:13:00 Memorial Agus Respitory Rate 2013-01-23 10:13:00 Memori al [place] Temperature Oral (F) 2013-01-23 10:13:00 98.4 F Memorial Agus Heart Rate 2013-01-23 00:10:00 [facility] [place] Systolic (mm Hg) 2013-01-23 00:10:00 Abdiel rial [place] Respitory Rate 2013-01-23 00:10:00 Memori al [place] Diastolic (mm Hg) 2013-01-23 00:10:00 Mem orial Augs Temperature Oral (F) 2013-01-23 00:10:00 98.5 F [facility] [place] Height 2013-01-20 14:20:00 158.4 cm [facility] [place] Height 2013-01-20 01:53:00 160.02 cm [facility] [place] Weight 2013-01-20 01:53:00 Memorial Agus Weight 2013-01-16 19:03:00 Memorial Agus Diastolic (mm Hg) 2013-01-16 19:03:00 Mem orial Agus Systolic (mm Hg) 2013-01-16 19:03:00 Adbiel rial [place] Temperature Oral (F) 2013-01-16 19:03:00 98.5 F [facility] [place] Respitory Rate 2013-01-16 19:03:00 Memori al Agus Heart Rate 2013-01-16 19:03:00 [facility] [place] Procedures Procedure Date / Time Performing Clinician [...] DIFF URINE DRUGS OF ABUSE 2019-09-20 17:30:00 Barloon, Moni Yoo Alevism SCREEN URINALYSIS SCREEN AND 2019-09-20 17:30:00 Lucy Gonzalez Alevism MICROSCOPY, WITH REFLEX TO CULTURE PROTHROMBIN TIME WITH INR 2019-09-20 17:20:00 Benita Shepherd Alevism PARTIAL THROMBOPLASTIN 2019-09-20 17:20:00 Benita Shepherd Alevism TIME (PTT) BASIC METABOLIC PANEL 2019-09-20 17:20:00 Benita Shepherd brenton Alevism IONIZED CALCIUM 2019-09-20 17:20:00 Benita Shepherd Me thodist MAGNESIUM LEVEL 2019-09-20 17:20:00 Benita Shepherd Me thodist PHOSPHORUS LEVEL 2019-09-20 17:20:00 Benita Shepherd M ethodist TROPONIN 2019-09-20 17:20:00 Benita Shepherd Me thodist ESTIMATED GFR 2019-09-20 17:20:00 Benita Shepherd Me thodist ECG 12-LEAD 2019-09-20 16:27:56 Benita Shepherd Me thodist POC GLUCOSE 2019-09-20 16:25:00 Raffi Florian Meth odist ANESTHESIA INTUBATION 2019-09-19 15:59:28 Douglas Gilmore MS AN ELECTIVE 2019-09-19 15:51:07 Douglas Gilmore ENDOTRACHEAL AIRWAY ARTERIAL LINE 2019-09-19 15:50:10 Douglas Gilmore XR LUMBAR SPINE 1 VW 2019-09-19 15:40:00 Raffi Florian LAMINECTOMY, LUMBAR 2019-09-19 13:55:00 Raffi Florian SURGICAL PATHOLOGY 2019-09-19 08:26:00 Raffi Florian ethodist REQUEST COVID BIOREF (NCOVB) 2019-09-11 12:19:00 Raffi Florian COMPREHENSIVE METABOLIC 2019-09-11 12:11:00 Gabrielle Suarez PANEL ESTIMATED GFR 2019-09-11 12:11:00 Gabrielle Suarezan Anita Campbell HC COMPLETE BLD COUNT 2019-09-11 12:01:00 Raffi Florian W/AUTO DIFF CT POST MYELOGRAM 2019-09-06 12:33:08 Raffi Florian Me thodist THORACIC CT POST MYELOGRAM LUMBAR 2019-09-06 12:32:32 Raffi Florian IR MYELOGRAM 2+REG INCL 2019-09-06 11:12:24 Raffi Florian INJ W S&I XR LUMBAR SPINE COMPLETE 2019-08-14 11:06:30 Raffi Florian W BENDING XR SPINE SCOLIOSIS 2-3 2019-08-14 11:06:00 Raffi Florian on Alevism VIEWS US CAROTID DUPLEX 2019-06-13 10:00:00 Silvio Torres Mo thodist BILATERAL CT ANGIOGRAM ABDOMINAL 2019-06-06 17:02:20 Silvio Torres on Alevism AORTA AND BILATERAL ILIOFEMORAL RUNOFF W WO CONTRAST POC CREATININE 2019-06-06 15:21:00 Jose Moreno ESTIMATED GFR 2019-06-06 15:21:00 Jose Moreno BASIC METABOLIC PANEL 2019-06-06 11:02:00 Silvio Torres COPY(IES) SENT TO: 2019-06-06 11:02:00 Silvio Torres ethodist COPY RECEIVED FROM: 2019-06-06 11:02:00 Silvio Torres ECG 12-LEAD 2019-06-06 09:55:18 Silvio Torres Meth odist cholecys <sup>1</sup> [facility] [facility] cholecys<sup>1</sup> [facility] Plan of Care Planned Activity Planned Date Details Comments Source Future Scheduled 2019-12-02 INFLUENZA VACCINE Anita Campbell Test 00:00:00 [code = INFLUENZA VACCINE] Future Scheduled 2018 65+ PNEUMOCOCCAL Fredo Campbell Test 00:00:00 VACCINE (1 of 1 - PPSV23) [code = 65+ PNEUMOCOCCAL VACCINE (1 of 1 - PPSV23)] Future Scheduled 2003-12-10 BREAST CANCER Odell Me thodist Test 00:00:00 SCREENING [code = BREAST CANCER SCREENING] Future Scheduled 2003-12-10 COLONOSCOPY SCREENING Ho alex Alevism Test 00:00:00 [code = COLONOSCOPY SCREENING] Future Scheduled 2003-12-10 SHINGLES VACCINES (#1) H ounick Alevism Test 00:00:00 [code = SHINGLES VACCINES (#1)] Future Scheduled 1969 COVID-19 VACCINE (1 of [place] Alevism Test 00:00:00 2) [code = COVID-19 VACCINE (1 of 2)] Encounters Start End Encounter Admission Attending Care Care Encounter Source Date/Time Date/Time Type Type Clinicians Facility Department ID 2019-10-31 2019-10-31 Outpatient Narayan [facility] [id number] 02:06:00 16:58:00 Yung Lerma 2019-10-31 2019-10-31 Outpatient U [facility] MED [id number] [facility] 02:06:00 02:06:00 2019-10-19 2019-10-19 Outpatient [facility] [id number] Odell 00:00:00 00:00:00 RAFFI [address] 2019-09-19 2019-09-22 Inpatient [facility] [id number] Odell 00:00:00 00:00:00 RAFFI [address] 2019-09-11 2019-09-11 [facility] [id number] Odell 00:00:00 00:00:00 RAFFI [address] 2019-09-11 2019-09-11 [facility] [id number] Odell 00:00:00 00:00:00 RAFFI [address] 2019-09-06 2019-09-06 [facility] [id number] Odell 00:00:00 00:00:00 RAFFI [address] 2019-09-06 2019-09-06 [facility] [id number] Odell 00:00:00 00:00:00 RAFFI [address] 2019-09-06 2019-09-06 [facility] [id number] Odell 00:00:00 00:00:00 RAFFI [address] 2019-08-14 2019-08-14 Outpatient FLORIAN, [facility] [id number] Odell 00:00:00 00:00:00 RAFFI [address] 2019-08-14 2019-08-14 Outpatient FLORIAN, [facility] [id number] Odell 00:00:00 00:00:00 RAFFI 895 Method i 2019-08-14 2019-08-14 Outpatient FLORIAN, [facility] [id number] Odell 00:00:00 00:00:00 RAFFI 630 [facility] i 2019-08-14 2019-08-14 Outpatient FLORIAN, [facility] [id number] Odell 00:00:00 00:00:00 RAFFI 198 [facility] i 2019-08-14 2019-08-14 Outpatient FLORIAN, [facility] [id number] Odell 00:00:00 00:00:00 RAFFI 226 [facility] i 2019-08-04 2019-08-04 Outpatient BRIANA PalaciosMISCHSHIMA [id number] 09:15:00 09:15:00 Felice 10 [facility] 2019-07-28 2019-07-28 [facility] [id number] 17:09:00 23:59:00 Encounter Gila [place] [id number] [place] [id number] [place] [id number] 2019-07-28 2019-07-28 Urgent Pob1, Acute [facility] [id number] 15:30:08 17:04:14 [facility] [id number] [place] 4.2.7.2.686 [facility] [id number] nal [address] 2019-07-04 2019-07-04 Outpatient TORRES, [facility] [id number] Odell 00:00:00 00:00:00 SILVIO 741 [facility] i 2019-05-05 2019-05-05 Outpatient BRIANA PalaciosSCHER [id number] 11:45:00 23:59:59 Felice 09 [facility] 2019-03-22 2019-03-22 Outpatient BRIANA PalaciosMISCHER [id number] 11:30:00 23:59:59 Felice 08 [facility] 2019-03-15 2019-03-15 Outpatient Suzanne, MHMISCHER MHMISCHER [id number] 11:15:00 23:59:59 Felice 07 [place] 2018-12-21 2018-12-21 Outpatient Suzanne, MHMISCHER MHMISCHER [id number] 11:30:00 23:59:59 Felice [facility] 2018-10-19 2018-10-19 Outpatient Suzanne, MHMISCHER MHMISCHER [id number] 11:45:00 23:59:59 Felice 05 [place] 2018-09-08 2018-09-08 Outpatient Suzanne, MHMISCHER MHMISCHER [id number] 14:30:00 23:59:59 Felice 04 [facility] 2018-08-18 2018-08-19 Outpatient MHMISCHER MHMISCHER [id number] 10:14:00 23:59:59 00 2017-05-06 2017-05-06 Outpatient Linh, [facility]PL [id number] 12:16:00 22:13:[address] [place] [address] Results Test Description Test Time Test Comments Results Result Comments Source HEMATOLOGY 2019-10-31 20:36:00 Test Item Value Reference Range Interpretation Comme nts PT (test code = PT) 14.3 s 12.0-14.7 [facility]FqtrkdbWOOUAPQKPA6503-77-67 20:36:00 Test Item Value Reference Range Interpretation Comments INR (test code = INR) 1.11 1 0.85-1.17 [facility] ParkwayYbtuxzjVJRBDQKKED1232-75-83 20:36:00 Test Item Value Reference Range Interpretation Comments PTT (test code = PTT) 94.8 s 22.9-35.8 [facility] ParkwayGlintziGJUYPXEOYA9728-62-20 14:58:00 Test Item Value Reference Range Interpretation Comments PT (test code = PT) 14.4 s 12.0-14.7 [place] 140550-06-30 14:58:00 Test Item Value Reference Range Interpretation Comments INR (test code = INR) 1.11 1 0.85-1.17 [place] 140550-06-30 14:58:00 Test Item Value Reference Range Interpretation Comments PTT (test code = PTT) 86.8 s 22.9-35.8 [facility] FJLPNSE8073-07-15 07:51:00Negative (10/31/19 2:51 AM) [facility]annCHE[facility] XCWAD4309-96-64 07:51:0091[facility]annCHEM PANEL 2019-10-31 07:51:0013[facility]annCHEM OGWAN9804-38-02 07:51:000.70[facility]annCHEM GLXYS9825-12-48 07:51:55041Hiqfjimh HermannCHEM UIGFR1916-37-43 07:51:004.0[facility]annCHEM JGHHC4127-71-22 07:51:99028Rxivvqza HermannCHEM QCYKT6703-88-54 07:51:0024[facility]annCHEM BKQEL4665-46-20 07:51:008.5 [facility] TCHUN9547-74-52 07:51:006.6[facility]annCHEM PANEL 2019-10-31 07:51:003.0[facility]annCHEM SPCFL9117-04-28 07:51:0016[facility]annCHEM OBTSJ1611-92-02 07:51:0020[facility]annCHEM PKWYO0577-33-49 07:51:37818Owdrewky HermannCHEM EOTGJ1304-62-26 07:51:000.4[facility]annCHEM DNIHK2100-27-51 07:51:0014.0[facility]annCHEM SODSG7530-04-94 07:51:00 Test Item Value Reference Range Interpretation Comments B/C Ratio (test code = B/C Ratio) 19 1 6-25 [facility]annCHE[facility] WBIET9045-72-94 07:51:003.6[facility] HermannCHEM PANEL 2019-10-31 07:51:00 Test Item Value Reference Range Interpretation Comments A/G Ratio (test code = A/G Ratio) 0.8 1 0.7-1.6 [facility]annCHE[facility] TQYMA4370-08-18 07:51:0091[facility] HermannHEMATOLOGY 2019-10-31 07:51:008.0[facility] GnmlfokQXOOFTKKJI0229-02-98 07:51:003.97[facility] FzgrrwvVYYJAXWSJC9528-36-01 07:51:0012.5[facility] MwaydftIHELDMHSKD5703-63-98 07:51:0037.6[facility] LstmqskMSDKIPXLQQ6021-51-74 07:51:0094.8[facility] Agus PYIZUINSXL8207-34-35 07:51:00 Test Item Value Reference Range Interpretation Comments MCH (test code = MCH) 31.4 pg 27.0-31.0 [facility] EetgwdvZDNPEFUCWC7634-65-45 07:51:0033.1[facility] HermannHEMATOLOGY 2019-10-31 07:51:0013.0[facility] MuvocwmGZQMJZLMUZ4488-21-11 07:51:55429Tchoalym HoccxqvNCJARIQCNY9405-25-27 07:51:008.8[facility] AvmmvuoYNAXWDFGAH5784-66-64 07:51:00 Test Item Value Reference Range Interpretation Comments PT (test code = PT) 14.2 s 12.0-14.7 Memorial MviqfugGKAMRZUZLU1488-42-40 07:51:00 Test Item Value Reference Range Interpretation Comments INR (test code = INR) 1.10 1 0.85-1.17 Memorial BluvxbyNRMCKGZRJO8576-12-46 07:51:00 Test Item Value Reference Range Interpretation Comments PTT (test code = PTT) 64.7 s 22.9-35.8 [facility] RhbuomiUQUVZRRZRQ1123-52-71 07:51:0063.4[facility] HermannHEMATOLOGY 2019-10-31 07:51:0026.0[facility]orial LvnntouBJYBPPIUTJ2642-49-88 07:51:008.5[facility] OimphreETIKEYJUDW3145-19-70 07:51:001.6[facility] IfhhzidSNXRXIQOUX4444-53-09 07:51:000.5[facility]orial XdwakmbWEKTDFDBNA3068-47-59 07:51:005.1[facility] TWFOWIKGBF0376-82-98 07:51:002.1[facility] PmoykdtPNPPMARDPC4677-32-87 07:51:000.7 Memorial NnehhqpARYEQETQYJ4557-19-69 07:51:000.1[facility] HermannSurgical pathology bhtpgcf8352-64-84 17:07:26 Test Item Value Reference Range Interpretation Comments Case number (test code = [id number]) Surgical pathology See link below for report (test code = PDF Lab Report [id number]) Result status (test code This is Final Report = [id number]) for [id number] Fredo CampbellECG 12 fzmg2520-35-52 15:18:08 Test Item Value Reference Range Interpretation Comments Ventricular rate (test 88 code = 253) Atrial rate (test code 88 = 255) MS interval (test code 164 = 266) QRSD [...] was found- Fredo Becerra drugs of abuse qgfisn1265-14-88 22:23:33 Test Item Value Reference Interpretation Comments Range Amphetamine screen, Negative urine (test code = 3349-8) Barbiturate screen, Negative urine (test code = 3377-9) Benzodiazepine Negative screen, urine (test code = 3390-2) Cocaine screen, Negative urine (test code = 3397-7) Methadone Negative metabolite (EDDP), urine (test code = 74731-9) Opiates screen, Negative urine (test code = 3879-4) Oxycodone screen, Positive A urine (test code = 07557-0) Phencyclidine Negative screen, urine (test code = 3936-2) Tricyclic screen, Negative urine (test code = 20239-0) Cannabinoid screen, Negative Drug scr een minimum [...] ired. Lab Interpretation Abnormal (test code = 53473-9) Fredo MethodistUrinalysis screen and microscopy, with reflex to culture 2019-09-20 20:48:08 Test Item Value Reference Range Interpretation Comments Specimen site (test code = Clean catch 7481219) Color, UA (test code = 5778-6) Straw Appearance, UA (test code = Clear 5767-9) Specific gravity, UA (test code = 1.003 1.001-1.035 5811-5) pH, UA (test code = 5803-2) 7.0 5.0-8.5 Protein, UA (test code = 90127-4) Negative Negative Glucose, UA (test code = 15323-3) Negative Negative Ketones, UA (test code = 2514-8) Negative Negative Bilirubin, UA (test code = Negative Negative 5770-3) Blood, UA (test code = 5794-3) Negative Negative Nitrite, UA (test code = 5802-4) Negative Negative Urobilinogen, UA (test code = <2.0 <2.0 71905-5) Leukocyte esterase, UA (test code Negative Negative = 5799-2) Epithelial cells, UA (test code = 5 /HPF 5787-7) WBC, UA (test code = 5821-4) 1 0- 4 /HPF RBC, UA (test code = 48073-3) 1 0- 5 /HPF Bacteria, UA (test code = Few None seen 61979-3) Yeast, UA (test code = 20018-8) None seen Yeast with pseudohyphae, UA (test None seen code = 11675-2) Fredo CampbellUrine pblpxqe4915-35-47 20:45:55 Test Item Value Reference Range Interpretation Comments Urine culture (test SEE COMMENT Bacteriu leigh ann screen code = 3990558) negative. Fredo MethodistCT Lumbar Spine Wo Jaydjpaz3589-15-19 19:17:16Hm Interface, Radiology Results 09/20/2019 7:20 PM [...] canal narrowing.Stable spondylotic foraminal narrowing at L5-S1 bilaterally.[facility]-HYRRSHouston MethodistCT Cervical Spine Wo Nxrckjty9526-42-67 19:13:36Hm Interface, Radiology Results 09/20/2019 7:16 PM [...] canal narrowing.IMPRESSION:No acute fractures of the cervical spine.[facility]-WPHYRRSHouston MethodistAmmonia level 2019-09-20 19:03:26 Test Item Value Reference Range Interpretation Comments Ammonia (test code = 1841-6) 19 umol/L 11-51 Odell MethodistCT Head Wo Mgingbtj2134-32-00 18:49:46Hm Interface, Radiology Results 09/20/2019 6:52 PM [...] air cells are clear.IMPRESSION:No acute intracranial abnormality identified.BOP-[id number] MethodistIonized vustvtd5618-60-07 18:34:40 Test Item Value Reference Range Interpretation Comments pH (test code = 2753-2) 7.52 Ionized calcium (test code = 1.13 mmol/L 1.11-1.32 ) Odell BxduhpzvySlxntkkn5617-78-60 18:28:56 Test Item Value Reference Range Interpretation Comments Troponin (test code 0.013 ng/mL 0-0.04 In patie nts suspected = 08698-4) of having a alpa cardial infarction, eder [...] decreased by le ss than 0.020 ng/mL [facility] gqklc7176-14-76 18:27:26 Test Item Value Reference Range Interpretation Comments Sodium (test code = 2951-2) 145 135- 148 mEq/L Potassium (test code = 2823-3) 3.5 3.5- 5.0 mEq/L Chloride (test code = 2075-0) 105 98- 112 mEq/L CO2 (test code = 2027-9) 23 24- 31 mEq/L L Anion gap (test code = 22075-7) 17@ANIO 7- 15 mEq/L H BUN (test code = 3094-0) 9 mg/dL 8-23 Creatinine (test code = 2160-0) 0.76 mg/dL 0.5-0.9 Glucose (test code = 2345-7) 142 mg/dL 65-99 H Calcium (test code = 57818-0) 9.5 mg/dL 8.8-10.2 Lab Interpretation (test code = Abnormal 45949-2) Fredo MethodistMagnesium dhuwz0171-57-87 18:27:26 Test Item Value Reference Range Interpretation Comments Magnesium (test code = 45443-5) 1.8 mg/dL 1.6-2.4 Fredo MethodistEstimated PYR7861-49-97 18:27:25 Test Item Value Reference Range Interpretation Comments Estimated GFR (test 82 mL/min/1.73 m2 [facility] Units code = 5488) InterpretationG 1 >=90 Normal or highG2 60-89 Mildly cupzjgazyD4g 45-59 Mildly to mode rately xwpgbhughL8g 30-44 Moderately to severely decreasedG4 15-29 Severely decre asedG5 <15 Kidn ey failureThe eGFR was calculated usin g the Chronic Kidney Disease Epidemiology Co llaboration (CKD-EPI) equat ion. Interpretation is based on recommendations of the National Kidney Foundation-Kidn ey Disease Outcomes Qualit y Initiative (NKF-KDOQI) pub lished in 2014. Fredo MethodistPhosphorus tbkzz2485-50-68 18:27:24 Test Item Value Reference Range Interpretation Comments Phosphorus (test code = 2777-1) 2.6 mg/dL 2.4-4.5 Fredo MethodistPartial thromboplastin time, neixzfnuv5241-11-14 18:15:11 Test Item Value Reference Range Interpretation Comments PTT (test code = 24.7 23.0- 36.0 [place] [address]-8) unfractionated heparin is61.0-112.0 se conds which corresponds to Anti-Xa0.3-0.7 U/ml. Odell MethodistProthrombin time with RDE6337-60-86 18:13:49 Test Item Value Reference Range Interpretation Comments Prothrombin time (test 13.3 11.5- 14.5 sec code = 5902-2) INR (test code = 1.0 The Interna tional 17371-2) Normalized Rati o (INR) is a therapeutic m onitoring tool for patien ts who are stable on oral anticoagulant t herapy. An INR of 2.0-3.0 is suggested for d eep vein thrombosis/pulm onary embolism. Odell MethodistCBC with platelet and uygsaljjzcjg3798-34-65 18:04:23 Test Item Value Reference Range Interpretation Comments WBC (test code = 55322-9) 13.52 4.50- 11.00 k/uL H RBC (test code = 49022-6) 4.10 m/uL 4.2-5.5 L HGB (test code = 718-7) 12.9 g/dL 12-16 HCT (test code = 4544-3) 39.3 % 37-47 MCV (test code = 787-2) 95.9 fL 82-100 MCH (test code = 785-6) 31.5 pg 27-34 MCHC (test code = 786-4) 32.8 g/dL 31-37 RDW - SD (test code = 42.5 fL 37-55 61322-2) MPV (test code = 20833-0) 10.4 fL 8.8-13.2 Platelet count (test code 229 150- 400 k/uL = 33828-2) Nucleated RBC (test code 0.00 /100 WBC = 80148-3) Neutrophils (test code = 78.5 % 39-69 H 25948-4) Lymphocytes (test code = 11.5 % 25-45 L 40006-8) Monocytes (test code = 9.4 % 0-10 47883-7) Eosinophils (test code = 0.0 % 0-5 69905-6) Basophils (test code = 0.2 % 0-1 12389-8) Immature granulocytes 0.4 % 0-1 "Immat ure (test code = 76552-4) granul ocytes" (promyelocytes, myelocytes, metamyelocytes) Lab Interpretation (test Abnormal code = 59127-4) [facility] cqhcmdu4051-42-23 16:26:11 Test Item Value Reference Range Interpretation Comments POC glucose (test code = 133 mg/dL 65-99 H Ope rator Name: [place] 51127-6) HeEmilyvicmacy ID: [id number] able: [facility] 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 Interpretation (test Abnormal code = 89519-1) Fredo CardosoEgdlssmzfIkqgdb4209-25-33 15:59:28Douglas Gilmore MD 09/19/2019 4:00 PMAirwayPerformed by: Douglas Gilmore MDAuthorized by: Douglas Gilmore MD Duplicate noteOdell LaevhykadEcpqhl0226-16-78 15:51:07 Douglas Gilmore MD 09/19/2019 3:59 PMAirwayDate/Time: [...] of Attempts at Approach: 2 Fredo MethodistArterial zirp3363-01-86 15:50:10Douglas Gilmore MD 09/19/2019 3:51 PMArterial linePerformed [...] tolerated the procedure well with no immediate complicationsHouberkshire medical center MethodistXR Lumbar Spine 1 Gw3207-39-66 15:48:20 Hm Interface, Radiology Results 09/19/2019 3:51 PM CDTEXAMINATION: XR LUMBAR SPINE 1 VWCLINICAL HISTORY: Z98.890 Other specified postprocedural statesCOMPARISON: Lumbar radiograph 08/14/2019IMPRESSION:Single lateral intraoperative radiograph of the lumbar spine in bone and soft tissue filters demonstrates a posterior approach surgical instrument tip directed towards the L4-L5 level with tip projecting along the inferior aspect of the L4 spinous process.[id number]-[id number] MethodistCOVID BioRef (NCOVB)2019-09-13 13:20:03 Test Item Value Reference Range Interpretation Comments COVID BioRef Not Detected Not Detected Source Nasophar yngeal (NCOVB) SwabTesting per formed at (test code = Bioreference [facility] [address]-3) [place] [address] NOTE: Ple ase consider re-collection o f a new specimen, if cl inically indicated. NOTE : The COVID-19 assay has been cleared by the U.S. Food and DrugAdministrat ion under the Emergency Use A uthorization (EUA). [facility] is designated as a high complexity labo [...] under the Emergency Use A uthorization (EUA). [facility] is designated as a high complexi ty laboratory by the Clinical Laboratory Improvement Nina ndments of 1987(CLIA) and is qualified to perform this te st. ASSAY INFORMATION: Re al Time RT-PCR (Reported 09/12 12:29) Odell MethodistComprehensive metabolic ufqvt4341-58-85 13:47:39 Test Item Value Reference Range Interpretation Comments Sodium (test code = 142 135- 148 mEq/L 2951-2) Potassium (test code = 4.0 3.5- 5.0 mEq/L 2823-3) Chloride (test code = 100 98- 112 mEq/L 5-0) CO2 (test code = 2027-9) 26 24- 31 mEq/L Anion gap (test code = 16@ANIO 7- 15 mEq/L H 82876-4) BUN (test code = 3094-0) 26 mg/dL 8-23 H Creatinine (test code = 0.90 mg/dL 0.5-0.9 2160-0) Glucose (test code = 111 mg/dL 65-99 H 2345-7) Calcium (test code = 10.5 mg/dL 8.8-10.2 H 86028-6) Protein (test code = 7.6 g/dL 6.3-8.3 -[place] n 2885-2) 4.6-7.0 g/dL1 week 4.4-7 .6 g/dL7 months-1y ear 5.1-7 .3 g/dL1-2 years 5.6-7 .5 g/dL>3 years 6.0-8 .0 g/eT40-101 6.3-8 .3 g/dL Albumin (test code = 4.0 g/dL 3.5-5 1751-7) A/G ratio (test code = 1.1 0.7-3.8 1759-0) Alkaline phosphatase 82 U/L 35-104 (test code = 6768-6) AST (test code = 1920-8) 20 U/L 10-35 ALT (test code = 1742-6) 17 U/L 5-50 Total bilirubin (test 0.3 mg/dL 0-1.2 code = 1975-2) Lab Interpretation (test Abnormal code = 37203-6) [facility] 2+Reg Incl Inj W S&W3897-32-13 14:46:39Hm Interface, Radiology Results 09/08/2019 2:49 PM [...] abnormalities.Mild blunting of the left C6 root sleeve.[facility]-[id number] MethodistCT Post Myelogram Ztlscgag0076-02-20 12:41:37Hm Interface, Radiology Results 09/06/2019 12:44 PM [...] correlation for right C6 radiculopathy is recommended. [facility]-[id number] MethodistCT Post Myelogram Njvnpx5896-76-35 12:39:59Addendum by Ally Leong MD on 09/06/2019 [...] impingement on the right L3 nerve root. [facility]-[id number] MethodistXR Lumbar Spine Complete W Flex and Phs4453-22-16 11:34:25Hm Interface, Radiology Results 08/14/2019 11:37 AM [...] the right upper quadrant.IMPRESSION:Degenerative changes without acute abnormality.[facility]- [id number] and approved by residential housekeeper/fellow: Aaron Garcia, Mairlyn Charles MD, personally reviewed the images and resident' s/fellow's findings and agree with the final report.Odell MethodistXR Spine Scoliosos 2-3 Zsdlo5027-18-93 11:11:25Hm Interface, Radiology Results 08/14/2019 11:14 AM [...] anterior plate and screw fixation and interbody graft.[id number]-[id number] Alevism COPY(IES) SENT TO:2019-06-07 05:40:00Copies/mLComment: TEVIN CARRASCO CARDIO [address] [facility] [address] [place] [address] [facility] MethodistCOPY RECEIVED FROM:2019-06-07 05:40:00Copy received from:Comment: TEVIN [address]ARRASCO [address] [facility] [address] [place] [address] [facility] YphsyhrjxOJEAPBGQPX4723-94-68 18:52:002 Memorial PxkyxumSDYQFJIJRF1507-40-84 18:52:83562.20[facility] HermannHEMATOLOGY 2019-03-15 18:52:0062.60[facility]orial IjfrtjgOBHIVHTQZS4441-84-93 18:52:009[facility]orial KrcqcobJAVNCOIWGQ5442-51-99 18:52:00 Test Item Value Reference Range Interpretation Comments Varicella IgM (test code = Varicella 0.69 1 IgM) [facility]annURINE AND EAYHF6246-06-30 21:21:00Negative (05/06/17 3:21 PM) [facility] AND NSHWQ3721-55-41 21:21:00Negative (05/06/17 3:21 PM) [facility] LLFLJ1920-47-56 21:21:00Negative *NA*(05/06/17 3:21 PM) [facility] LHTCG2227-36-41 21:21:00Negative (05/06/17 3:21 PM) [facility] AND LEISR7762-70-10 21:21:001[facility] HermannURINE AND LTGOA8874-93-42 21:21:002[facility] HermannURINE AND IMPQR6334-80-99 21:21:00 Yellow *NA*(05/06/17 3:21 PM)[facility]annURINE AND MJYFM4988-83-67 21:21:00 1.019[facility] HermannURINE AND GFDAJ8421-91-61 21:21:005.0[facility]annURINE AND FFSKH2578-82-87 21:21:00Slight *ABN*(05/06/17 3:21 PM)[facility] HermannCHEM WJTXB5137-51-72 20:57:14894Qwvierip HermannCHEM AUXIK2272-07-29 20:57:0042 Memorial QknjrniLSMFOIMIQIQZ7640-74-48 20:57:41022Pjrycodx HermannELECTROLYTES 2017-05-06 20:57:41022Fcsebzbq KwvvoxzVDOCHALDYUSR0342-30-86 20:57:004.0[facility]orial WwjkwquFSWBSINFYWMF8924-72-75 20:57:0041Memorial NpixhiuKFWEPHKFHHMS6504-81-16 20:57:000.7Memorial FblnquuPUGQACEAAUNJ0701-39-96 20:57:0082[facility] WLUJXVNCLDOI5172-59-96 20:57:001.0Memorial HaxajarLYTBVAOTWVUD9686-48-00 20:57:0019[facility] AqrmiddZXVXHMRTMXII6779-88-67 20:57:0015[facility] QAPIJCSSMRUV5161-40-33 20:57:004.1[facility] KetdtveYSBPGEPQLUJO0451-56-92 20:57:004.3[facility]orial YwlrbvvYYJLKZBURWSG8747-95-72 20:57:0018[facility] MWCZOEFTSZCH1440-92-45 20:57:009.4Memorial OxxcceuDBYESTAFWTCN6351-47-81 20:57:008.4[facility] IdstyuvHJOHDGILAENN7010-66-78 20:57:0027[facility] RYRRCVBZKYOE0437-37-10 20:57:0016.0[facility] KlbzcghFISKDQTOAIPG5210-91-99 20:57:001.36[facility] VjzymwcIVMLOGEDXMMD8004-30-21 20:57:0024[facility] PMELNEUKZDEI2919-20-89 20:57:0077[facility] JxtrvcrFQTZDZDYEI9019-77-48 20:57:00 2.3[facility] VzzgfqaPJVEPUJMGP0231-78-08 20:57:000.8[facility] 2017-05-06 20:57:000.2[facility] EkikvghXVYYXDUEIQ9022-33-33 20:57:000.4[facility] CkeattfMXMUWNKUVY0570-33-26 20:57:006.4[facility] PnkuukhQJEIWHZTGS3309-75-86 20:57:0024.4[facility] NcvmfeqBTMIAOFLMP6240-71-52 20:57:008.1[facility] IOUIUCQOCQ1761-78-30 20:57:0066.9[facility] QvagrarFZAAZNAFPT1093-96-86 20:57:00 8.4[facility] PdvueuxYKUVBXHHAN2324-53-46 20:57:51570Isqfpylx HermannHEMATOLOGY 2017-05-06 20:57:00 Test Item Value Reference Range Interpretation Comments MCH (test code = MCH) 32.4 pg 27.0-31.0 [facility] MqntsdlKJFIMKQWIE6056-26-76 20:57:0012.5[facility]annHEMATOLOGY 2017-05-06 20:57:0091.5[facility] OlgqsakGECPSLESUU6202-44-55 20:57:0035.4[facility] UebgnemGSZKVMUMKX7320-85-65 20:57:0042.5[facility] AnlqduqTRMFTCELYD2154-56-37 20:57:009.6[facility] QleziceLUZOWJTNYJ5533-03-78 20:57:0015.1[facility] FTYFRVBGCT2072-03-79 20:57:004.65[facility] VnntykiTLHOKVCCS2220-89-81 05:00:0095 [facility] LmedmurFQUINNSQY3604-72-55 05:00:0012.9[facility]annCHEMISTRY 2013-01-23 05:00:008.5[facility] TspgfugPYBYNWLGX0127-32-84 05:00:0075[facility] FwpsrcnWOFKDOXQH4485-89-82 05:00:0028[facility] DsfxkaxARIYYAYXO8385-77-45 05:00:49610Jkobpygo PporxyzOFUEWTYEG9877-61-23 05:00:003.9[facility] QALFSATLI8562-34-77 05:00:005[facility] LhvnqsiOUZIENQHB0149-60-81 05:00:000.7 [facility] VkfbaoyHZQCPIVJH8594-19-57 05:00:69211Ivfllwur HermannHEMATOLOGY 2013-01-23 05:00:008.4[facility] OezklkuBJMCJRKHLQ2155-43-77 05:00:003.95[facility] SkugkfeYXUYPHYJTM2680-09-87 05:00:005.7[facility] AopnruaPHXVMWUMKX1369-26-44 05:00:00 Test Item Value Reference Range Interpretation Comments MCH (test code = MCH) 33.0 pg 27.0-31.0 [facility] GgmyolbPVDPTULNHU9212-78-66 05:00:0037.4[facility]annHEMATOLOGY 2013-01-23 05:00:0013.0[facility] BtwbqvrKNUQEDQTNT6899-78-43 05:00:0094.8[facility] SolkmvzBBIQKYGIBV8093-17-50 05:00:0012.6[facility] FlzkywfQNEMUQEDMG7737-34-60 05:00:0034.8[facility] PkjcbjvZAKESZIJHA3123-55-71 05:00:80296Bgrrbtrq Agus BVTCMBRCNI8120-07-79 05:00:0050.9[facility] UkapqlaWUIDXJVQIR7255-15-49 05:00:00 36.5[facility] GlsqnrpPTYGSHPMSG2122-54-65 05:00:0010.0[facility]annHEMATOLOGY 2013-01-23 05:00:000.6[facility] JspsuwbKTQXFJESYX9132-08-20 05:00:000.1[facility] MfslrhlUZHQLJYLSS8310-80-91 05:00:002.9[facility] DbqvqlhGFTXJWTXBQ3673-36-69 05:00:002.1[facility] ZgpxeztAKYPYHXAEJ0856-19-70 05:00:002.2[facility] RJGDFUFALN8542-99-66 05:00:000.4[facility] MvxvngpBNJOIKBLB2953-74-68 08:45:73109 [facility] MhjhfqoLBWWXBANF0080-22-00 08:45:003.1[facility]annCHEMISTRY 2013-01-22 08:45:001.0[facility] HwtnuhlLURPEOEVQ8933-18-29 08:45:004[facility] TnthdokLBLPOZSMO9713-36-87 08:45:0011.9[facility] KdhwppqOYCCLGSVA9071-66-83 08:45:0095[facility] EfjzxobCAPNWJIRR8003-64-21 08:45:0016[facility] VDOBVPFHA1293-69-88 08:45:0026[facility] JlhayubJTORJOMSJ3082-26-24 08:45:008.0 [facility] UlwkpsxITSGEXPFC1376-86-85 08:45:006.1[facility]annCHEMISTRY 2013-01-22 08:45:000.5[facility] DxnqkrfGFKZXAYLV5475-17-45 08:45:000.7[facility] NezvzytFRUVPMMVJ4237-59-10 08:45:24440Mcfqdazj CtbjurcSVWOOEKTK6922-52-16 08:45:07773Rhbwysfk YaiziijUJLNOPVDN4987-15-78 08:45:003.9[facility] Agus BBFDGHRFG6081-02-40 08:45:0020[facility] AnewunoBRORUSSEX8502-20-78 08:45:003 [facility] VkbzqxhYMEONSNKH6267-43-24 08:45:38170Moxbauye HermannCHEMISTRY 2013-01-22 08:45:0074[facility] GjrkkwbLIPQSABHK8746-60-35 08:45:003.0[facility] IljtuvrXDBNSOJJHJ2327-19-71 08:45:000.1[facility] CdjcwuwYJPTOSYSGH3205-40-56 08:45:000.3[facility] RgxrbrlWPWUSLGZTN5380-43-23 08:45:002.8[facility] JTMEBFMDKO6882-53-67 08:45:002.0[facility] LrbzlbuSINOHBMIZR2381-66-16 08:45:000.6 [facility] ImxuuwlKWZEFMDVEM4814-87-38 08:45:0035.5[facility]annHEMATOLOGY 2013-01-22 08:45:0011.0[facility] LmwcszhZOGANHWBUA1700-88-68 08:45:002.1[facility] YmjwhmcHCDBSHRCIY4877-45-08 08:45:0051.1[facility] VksaibqGVOWXGTGQX3430-04-92 08:45:0015[facility] PjvetmjSDYVXFEDCX5486-53-10 08:45:0034.6[facility] CJPZRKUKHK0668-23-91 08:45:00 Test Item Value Reference Range Interpretation Comments MCH (test code = MCH) 32.8 pg 27.0-31.0 H [facility] FqeryzpMCUJJNKRPN1602-90-85 08:45:0012.3[facility]annHEMATOLOGY 2013-01-22 08:45:008.2[facility] ZsjthdiQSAUHPLFVV5795-34-57 08:45:57282Dkahpuah WmielwdQOKHHWEMSP8485-29-36 08:45:003.63[facility] NaisjpxKVPVCRJOKO6327-26-70 08:45:005.5[facility] JxtingsWGQEOVTDFD4601-61-09 08:45:0011.9[facility] XGNYYLTVCF1858-65-33 08:45:0034.5[facility] IgumcieVNKFBNHNUD0724-60-51 08:45:00 94.9[facility] HermannTUMOR ESKSEKN6347-22-22 08:45:007.0[facility]annCHEMISTRY 2013-01-21 16:51:550.9[facility] HewdtsmUDFZEYXSV3992-20-18 16:51:0095[facility] HobuxztNDIIYXCNA9065-43-71 16:51:004.1[facility] ImvdkscCJYQJGNDJ0376-24-35 16:51:89220Kbjsjjnq YrwajvtWONMWBZST4092-19-26 16:51:55466Krogrewt Agus ANFXUKHTM1562-41-14 16:51:97698Wneyzcjw AqenjtrBTLVUEHMU9966-03-08 16:51:007 [facility] GcsrusaQBVAGXESW7595-81-32 16:51:0025[facility]annCHEMISTRY 2013-01-21 16:51:008.2[facility] MuctmtvSCRYDVLPC6350-55-23 16:51:000.7[facility] IfpelhjLPVSTZUZI4843-60-41 16:51:0012.1[facility] SgnsaivGNVJLZHQS8158-23-96 16:51:001.38[facility] PfujtidKRRLAJJGE9490-82-63 07:55:001.8[facility] WVVJUDNVZ4645-64-06 07:55:07972Umnyacvg VuiagfiLSFDVKZQX6825-19-31 07:55:0066 [facility] HitzhtfSZVZVAOFZ4737-44-73 07:55:0018[facility]annCHEMISTRY 2013-01-21 07:55:002.9[facility] DobcftvYYSERPKBI4428-53-26 07:55:0024[facility] IrgwwzhVAHSEPIYU9277-28-85 07:55:000.7[facility] NhqtxcsJKIJAMGLF7663-18-65 07:55:005.7[facility] XyolbcqRSCRADEPS1271-22-27 07:55:0022[facility] MCBJAEJEL8038-93-94 07:55:001.0[facility] EcywjkvCAFGOTBUC0003-34-22 07:55:002.8 [facility] XtoxywwGBOGUBYQNE9655-91-50 07:55:008.6[facility]annHEMATOLOGY 2013-01-21 07:55:0023.8[facility] XwjeddaYUQEHFOCWR1591-33-27 07:55:000.6[facility] XsymlasKWNXAZXZMR7914-88-10 07:55:0066.4[facility] LfrbnlcCXLHGJIFRU1695-65-26 07:55:000.8[facility] GfpwyvsFKBCFYCMQV2486-85-90 07:55:002.1[facility] QNQHWSDGKZ4367-30-39 07:55:000.6[facility] KkdfuriYMCYSBXFGX6151-84-64 07:55:005.9 [facility] NbhrrevKQJJBPICJF5682-90-76 07:55:000.1[facility]annHEMATOLOGY 2013-01-21 07:55:000.1[facility] VxygltyLMSRWPNDXD2205-64-96 07:55:0012.7[facility] LqfwynwTYLAEKWITF4666-64-60 07:55:0034.1[facility] YtcrpwfEDIMOIKOAC9906-43-84 07:55:0095.7[facility] LzeeajwFVWWPZWQXV7066-87-51 07:55:0011.5[facility] EHCHQORSBP1081-51-94 07:55:0033.6[facility] HqohsrsYJFNDYORYD1718-05-68 07:55:00 Test Item Value Reference Range Interpretation Comments MCH (test code = MCH) 32.6 pg 27.0-31.0 H [facility] InabbceEGWMQELWHT5690-68-54 07:55:008.5[facility]annHEMATOLOGY 2013-01-21 07:55:58394Lyhresev WcjemxrVTRJHNJRIT8965-04-32 07:55:003.52[facility] ExdkbahQCMGIIMKGI6263-04-29 07:55:008.9[facility] TebivgnCSEBUHQCDK4768-78-64 04:30:05Performed (01/19/2013 23:30:05)[facility] LjltoejVXHDYOERYX4817-12-62 04:30:05None Seen (01/19/2013 23:30:05)[facility] KmhosjaVFOGCQEDPI9262-97-30 04:30:05Few /LPF (01/19/2013 23:30:05)[facility] CerprahHHXNNTWBQN1433-86-60 04:30:05None Seen (01/19/2013 23:30:05)[facility] KcgknglLRERGZDBKN8263-37-88 04:30:05Negative (01/19/2013 23:30:05)[facility] OrgergeDAYXIZIEZG6556-59-00 04:30:050.2[facility] JahuyvgNWBBPSPCKD3707-88-10 04:30:05Negative *NA*(01/19/2013 23:30:05)[facility] FaqenvoYGFZBCNEVO2179-44-50 04:30:05Negative (01/19/2013 23:30:05)[facility] MrijbowEHOGLXECCV3002-57-37 04:30:05Negative (01/19/2013 23:30:05)[facility]uh[facility]PVGMSXVQE3985-08-25 04:30:05Negative mg/dL (01/19/2013 23:30:05)[facility]VmjpdsfRBOGWDZVMN0374-54-42 04:30:05Negative mg/dL *NA*(01/19/2013 23:30:05)[facility]villeYwduhgkZRACWHLNQX8524-68-32 04:30:05 Test Item Value Reference Range Interpretation Comments UA pH (test code = UA pH) 8.0 1 5.0-8.0 N [facility] IznjtzvVXDQZHKQAQ5206-32-21 04:30:05Negative mg/dL (01/19/2013 23:30:05)[facility] BdsdpkmGRTUYXTFIL9896-93-93 04:30:05Clear (01/19/2013 23:30:05)[facility] QotltuiCWIBOFTMZO8534-99-72 04:30:05 Test Item Value Reference Range Interpretation Comments UA Spec Grav (test code = UA Spec 1.015 1 N Grav) [facility] LlpqwyaYAJTYGMJVP1098-40-46 04:30:05Yellow *NA*(01/19/2013 23:30:05) [facility] PcionatTBAMXKPBQ7898-66-69 03:30:65502Xlqdvlcg HermannCHEMISTRY 2013-01-20 03:30:007.3[facility] BshupjtZGTAXHIND0387-36-22 03:30:000.5[facility] RlqkavaVLFXNTWMI1997-70-04 03:30:003.8[facility] TtobeulVWUSTOGJL4013-00-08 03:30:0030[facility] VudcchzDPISFWLRZ2757-77-34 03:30:0081[facility] SKSCDLFCD9957-91-89 03:30:000.1[facility] SilasfmTQETACEYO1891-96-68 03:30:0023 [facility] MrxheoqHWZBKLUTN9649-36-98 03:30:003.5[facility] HermannCHEMISTRY 2013-01-20 03:30:001.1[facility] BiqgpfaETTHPIKKQ0234-30-47 03:30:000.4[facility] MyyvcpfXMIKWUGTFR6193-37-92 03:30:000.1[facility]
[2020-05-20] MEDS ORDERED: LORazepam 2 MG/ML VIAL ONE (11:08)
[2020-05-20] MEDS ORDERED: DIPHENHYDRAMINE 50 MG/ML VIAL ONE (11:08)
[2020-05-20] MEDS ORDERED: NA CHLORIDE 0.9% 1,000 ML ONE (11:08)
[2020-05-20 11:11] LABS: Absolute Lymphocytes (CBC) 1.4 K/uL (0.7-4.9); Basophils % 0.6 % (0-1.3); Hematocrit 40.1 % (36.0-45.0); Lymphocytes % 17.1 % (15.3-44.8); MPV 8.6 fL (7.6-11.3); RBC Red Blood Cell Count 4.47 M/uL (3.86-4.86)
[2020-05-20 11:12] LABS: Protime INR 1.37
--- NOTE | 2020-05-20 11:27 | RAD REPORT ---
EXAM DESCRIPTION: CT - CTHCSPWOC - 05/20/2020 11:07 am CLINICAL HISTORY: PAIN COMPARISON: Soft Tissue Neck W/Contr dated 04/17/2020; Head Brain Wo Cont dated 04/29/2020 TECHNIQUE: Axial 5 mm thick images of the head were obtained. Axial 2 mm thick images of the cervic al spine were obtained with sagittal and coronal reconstruction images generated and reviewed. All CT scans are performed using dose optimization technique as appropriate and may include automated exposure control or mA/KV adjustment according to patient size. FINDINGS: No intracranial hemorrhage, mass, edema or acute intracranial finding. No suspicion for ac [place] infarction. Minimal atrophy and chronic ischemic changes are present matching comparison. Ventric les are in proportion. Mastoid air cells and paranasal sinuses are clear. No globe or orbit abnormali ty seen. Cervical body height and alignment are normal. C5-6 disc space narrowing with fusion of C6-7. Facet d egenerative changes are present. No fracture or acute bony abnormality. Central canal detail is inhe rently limited. No paraspinal mass or hematoma. IMPRESSION: Negative CT head examination for acute or significant finding. Negative CT cervical spine examination for acute or significant finding. Nonacute findings detailed in the body of the report.
[2020-05-20 11:28] LABS: ALT/SGPT 15 U/L (12-78); AST/SGOT 17 U/L (15-37); Albumin 4.1 g/dL (3.4-5.0); Alkaline Phosphatase 84 U/L (45-117); BUN Blood Urea Nitrogen 23 mg/dL (7-18); Bicarbonate 28 mmol/L (21-32); Bilirubin Direct < 0.1 mg/dL (0-0.2); Bilirubin Total 0.4 mg/dL (0.2-1.0); Glucose Level 112 mg/dL (74-106); Magnesium 2.5 mg/dL (1.8-2.4); NT PRO-BNP 67 pg/mL (<125); Potassium 4.1 mmol/L (3.5-5.1); Protein, Total 7.5 g/dL (6.4-8.2); Sodium Level 142 mmol/L (136-145); Troponin (Emerg Dept Use Only) < 0.02 ng/mL (0.0-0.045)
[2020-05-20] MEDS ORDERED: haloperidoL 5 MG TAB PO ONE (11:30)
--- NOTE | 2020-05-20 12:20 | RAD REPORT ---
EXAM DESCRIPTION: RAD - Chest Single View - 05/20/2020 11:43 am CLINICAL HISTORY: COUGH COMPARISON: Portable April 29, 2020 TECHNIQUE: AP portable chest image was obtained 05/20/2020 11:43 am . FINDINGS: Lungs are clear. Heart and vasculature are normal. No measurable pleural effusion and no p neumothorax. No acute bony abnormality seen. No acute aortic findings suspected. IMPRESSION: No acute cardiopulmonary process. No significant change from comparison.
[2020-05-20] MEDS ORDERED: ONDANSETRON 4 MG/2 ML VIAL ONE (12:41)
[2020-05-20] MEDS ORDERED: HYDROMORPHONE HCL 1 MG/ML INJ ONE (12:41)
--- NOTE | 2020-05-20 12:47 | EDPHYS ---
Physician Documentation [facility] Name: Haley Porter Age: 64 yrs Sex: Female : 1955 Arrival Date: 05/20/2020 Time: 09:30 Bed 5 Private MD: ED Physician Zain Sanchez HPI: 05/20 10:48 This 64 yrs old Female presents to ER via Ambulatory with complaints of dorian Headache, Sore Throat. 10:48 The patient complains of pain to the top of head, forehead, left frontal area, left dorian side of the back of head, left occipital area, left base of the skull, right frontal area, right side of the back of head, right occipital area and right base of the skull. The patient describes the headache as constant. Onset: The symptoms/episode began/occurred 2 day(s) ago. Associated signs and symptoms: The patient has no apparent associated signs or symptoms. Severity of symptoms: At its worst the pain was mild, moderate, in the emergency department the pain is unchanged. Headache History: Denies prior headaches. The symptoms are alleviated by nothing. The patient has not experienced similar symptoms in the past. Historical: - Allergies: 09:45 METOCLOPRAMIDE; iw 09:45 Morphine; iw 09:45 Oral steroids; iw 09:45 Singulair; iw 09:45 Valium; iw 09:45 Versed; iw - Home Meds: 09:45 Eliquis 5 mg Oral tab 2 times per day [Active]; clorazepate dipotassium 7.5 mg Oral tab iw 1 tab daily [Active]; clorazepate dipotassium 7.5 mg Oral tab 2 times per day [Active]; omeprazole 20 mg Oral TbEC daily [Active]; oxycodone-acetaminophen 10-325 mg Oral tab 1 tab every 6 hours [Active]; pregabalin Oral [Active]; quinapril 20 mg Oral tab 1 tab once daily [Active]; - PMHx: 09:45 Hypertension; PE; iw - Immunization history:: Adult Immunizations not up to date. - Social history:: Smoking status: Patient denies any tobacco usage or history of. - Family history:: not pertinent. ROS: 10:48 Constitutional: Negative for fever, chills, and weight loss, Eyes: Negative for injury, dorian pain, redness, and discharge, ENT: Negative for injury, pain, and discharge, Neck: Negative for injury, pain, and swelling, Cardiovascular: Negative for chest pain, palpitations, and edema, Respiratory: Negative for shortness of breath, cough, wheezing, and pleuritic chest pain, Abdomen/GI: Negative for abdominal pain, nausea, vomiting, diarrhea, and constipation, Back: Negative for injury and pain, : Negative for injury, bleeding, discharge, and swelling, MS/Extremity: Negative for injury and deformity, Skin: Negative for injury, rash, and discoloration, Psych: Negative for depression, anxiety, suicide ideation, homicidal ideation, and hallucinations, Allergy/Immunology: Negative for hives, rash, and allergies, Endocrine: Negative for neck swelling, polydipsia, polyuria, polyphagia, and marked weight changes, Hematologic/Lymphatic: Negative for swollen nodes, abnormal bleeding, and unusual bruising. 10:48 Neuro: Positive for headache. Exam: 10:48 Constitutional: This is a well developed, well nourished patient who is awake, alert, dorian and in no acute distress. Head/Face: Normocephalic, atraumatic. Eyes: Pupils equal round and reactive to light, extra-ocular motions intact. Lids and lashes normal. Conjunctiva and sclera are non-icteric and not injected. Cornea within normal limits. Periorbital areas with no swelling, redness, or edema. ENT: Nares patent. No nasal discharge, no septal abnormalities noted. Tympanic membranes are normal and external auditory canals are clear. Oropharynx with no redness, swelling, or masses, exudates, or evidence of obstruction, uvula midline. Mucous membranes moist. Neck: Trachea midline, no thyromegaly or masses palpated, and no cervical lymphadenopathy. Supple, full range of motion without nuchal rigidity, or vertebral point tenderness. No Meningismus. Chest/axilla: Normal chest wall appearance and motion. Nontender with no deformity. No lesions are appreciated. Cardiovascular: Regular rate and rhythm with a normal S1 and S2. No gallops, murmurs, or rubs. Normal PMI, no JVD. No pulse deficits. Respiratory: Lungs have equal breath sounds bilaterally, clear to auscultation and percussion. No rales, rhonchi or wheezes noted. No increased work of breathing, no retractions or nasal flaring. Abdomen/GI: Soft, non-tender, with normal bowel sounds. No distension or tympany. No guarding or rebound. No evidence of tenderness throughout. Back: No spinal tenderness. No costovertebral tenderness. Full range of motion. Female : Normal external genitalia. Skin: Warm, dry with normal turgor. Normal color with no rashes, no lesions, and no evidence of cellulitis. MS/ Extremity: Pulses equal, no cyanosis. Neurovascular intact. Full, normal range of motion. Neuro: Awake and alert, GCS 15, oriented to person, place, time, and situation. Cranial nerves II-XII grossly intact. Motor strength 5/5 in all extremities. Sensory grossly intact. Cerebellar exam normal. Normal gait. Psych: Awake, alert, with orientation to person, place and time. Behavior, mood, and affect are within normal limits. 11:51 ECG was reviewed by the Attending Physician. [facility] Vital Signs: 09:40 BP 117 / 80; Pulse 98; Resp 16; Temp 97.8; Pulse Ox 98% on R/A; Weight 71.21 kg; Height iw 5 ft. 6 in. (167.64 cm); Pain 10/10; 11:00 BP 136 / 77; Pulse 64; Resp 17; Pulse Ox 99% ; bp 12:00 BP 158 / 80; Pulse 70; Resp 16; Pulse Ox 100% ; bp 12:55 BP 139 / 68; Pulse 71; Resp 17; Pulse Ox 100% ; bp 09:40 Body Mass Index 25.34 (71.21 kg, 167.64 cm) Arvind Coma Score: 10:52 Eye Response: spontaneous(4). Verbal Response: oriented(5). Motor Response: obeys [facility] commands(6). Total: 15. MDM: 09:50 Patient medically screened. [facility] 10:52 Differential diagnosis: migraine, tension headache. Data reviewed: vital signs, nurses [facility] notes, lab test result(s), EKG, radiologic studies, CT scan, plain films. Data interpreted: Pulse oximetry: on room air is 98 %. Test interpretation: by ED physician or midlevel provider: ECG, plain radiologic studies. Counseling: I had a detailed discussion with the patient and/or guardian regarding: the historical points, exam findings, and any diagnostic results supporting the discharge/admit diagnosis, the presence of at least one elevated blood pressure reading (>120/80) during this emergency department visit, lab results, radiology results. 05/20 10:47 Order name: Basic Metabolic Panel; Complete Time: 12:40 [facility] 05/20 10:47 Order name: CBC with Diff; Complete Time: 12:40 [facility] 05/20 10:47 Order name: LFT's; Complete Time: 12:40 [facility] 05/20 10:47 Order name: Magnesium; Complete Time: 12:40 [facility] 05/20 10:47 Order name: NT PRO-BNP; Complete Time: 12:40 [facility] 05/20 10:47 Order name: PT-INR; Complete Time: 12:40 [facility] 05/20 10:47 Order name: Troponin (emerg Dept Use Only); Complete Time: 12:40 [facility] 05/20 10:47 Order name: XRAY Chest (1 view); Complete Time: 12:40 [facility] 05/20 10:49 Order name: CT Head C Spine; Complete Time: 12:40 05/20 12:41 Order name: US Extremity Venous W Compression Rolly [facility] 05/20 12:50 Order name: Urine Dipstick--Ancillary (enter results) 05/20 10:47 Order name: EKG; Complete Time: 10:48 [facility] 05/20 10:47 Order name: Cardiac monitoring; Complete Time: 11:03 [facility] 05/20 10:47 Order name: EKG - Nurse/Tech; Complete Time: 11:35 [facility] 05/20 10:47 Order name: IV Saline Lock; Complete Time: 11:04 [facility] 05/20 10:47 Order name: Labs collected and sent; Complete Time: 11:04 [facility] 05/20 10:47 Order name: O2 Per Protocol; Complete Time: 11:04 [facility] 05/20 10:47 Order name: O2 Sat Monitoring; Complete Time: 11:04 [facility] 05/20 10:47 Order name: Urine Dipstick-Ancillary (obtain specimen); Complete Time: 12:34 [facility] EC:51 Rate is 69 beats/min. Rhythm is regular. QRS [place] is Normal. [place] interval is normal. QRS dorian interval is normal. QT interval is normal. No Q waves. T waves are Normal. No ST changes noted. Clinical impression: Normal ECG and No evidence of ischemia. Interpreted by me. Reviewed by me. Administered Medications: 10:55 Drug: Ativan 2 mg Route: IM; Site: right deltoid; aa5 11:30 Follow up: Response: No adverse reaction; Anxiety unchanged 10:58 Drug: Benadryl 50 mg Route: IVP; Site: right forearm; aa5 11:30 Follow up: Response: No adverse reaction aa5 10:58 Drug: NS 0.9% 1000 ml Route: IV; Rate: 1 bolus; Site: right forearm; aa5 11:03 Not Given (Not available at this time per pharmacy, MD notified. ): HALdol (as aa5 decanoate) 5 mg IM once 11:40 Drug: Haldol 5 mg Route: PO; aa5 12:30 Drug: Zofran (Ondansetron) 4 mg Route: IVP; Site: right forearm; aa5 12:30 Drug: Dilaudid 1 mg Route: IVP; Site: right forearm; aa5 Disposition: 05/20/20 12:47 Discharged to Home. Impression: Headache, Other chronic pain. - Condition is Stable. - Discharge Instructions: Chronic Pain, General Headache Without Cause, General Headache Without Cause, Fvdg-rk-Sowl. - Medication Reconciliation Form, Thank You Letter, Antibiotic Education, Prescription Opioid Use form. - Follow up: Private Physician; When: 2 - 3 days; Reason: Recheck today's complaints, Continuance of care, Re-evaluation by your physician. Follow up: Celestino Jama MD; When: 2 - 3 days; Reason: Recheck today's complaints, Re-evaluation by your physician. - Problem is new. - Symptoms have improved. Signatures: Dispatcher [employer] [facility] Zain Sanchez MD MD cha Williams, Irene, RN RN Sierra Busch, TRAV RN aa5 Corrections: (The following items were deleted from the chart) 10:57 10:49 Head Brain Wo Cont+CT.RAD.BRZ ordered. [facility] 12:47 12:47 05/20/2020 12:47 Discharged to Home. Impression: Headache; Other chronic pain. dorian Condition is Stable. Forms are Medication Reconciliation Form, Thank You Letter, Antibiotic Education, Prescription Opioid Use. Follow up: Private Physician; When: 2 - 3 days; Reason: Recheck today's complaints, Continuance of care, Re-evaluation by your physician. Problem is new. Symptoms have improved. dorian 13:44 12:47 05/20/2020 12:47 Discharged to Home. Impression: Headache; Other chronic pain. aa5 Condition is Stable. Forms are Medication Reconciliation Form, Thank You Letter, Antibiotic Education, Prescription Opioid Use. Follow up: Private Physician; When: 2 - 3 days; Reason: Recheck today's complaints, Continuance of care, Re-evaluation by your physician. Follow up: Celestino Jama; When: 2 - 3 days; Reason: Recheck today's complaints, Re-evaluation by your physician. Problem is new. Symptoms have improved. dorian
--- NOTE | 2020-05-20 12:47 | ER ---
Nurse's Notes [facility] Name: Haley Porter Age: 64 yrs Sex: Female : 1955 Arrival Date: 05/20/2020 Time: 09:30 Bed 5 Private MD: Diagnosis: Headache;Other chronic pain Presentation: 05/20 09:40 Chief complaint: Patient states: severe headache for months, got worse an hour ago, is iw on pain medicine but it doesn't help, has appt with Dr. Palacios , has been here several times , also has pain in her throat and into her stomach, is burning pain. Coronavirus screen: At this time, the client does not indicate any symptoms associated with coronavirus-19. Ebola Screen: Patient negative for fever greater than or equal to 101.5 degrees Fahrenheit, and additional compatible Ebola Virus Disease symptoms Patient denies exposure to infectious person. Patient denies travel to an Ebola-affected area in the 21 days before illness onset. No symptoms or risks identified at this time. Initial Sepsis Screen: Does the patient meet any 2 criteria? No. Patient's initial sepsis screen is negative. Does the patient have a suspected source of infection? No. Patient's initial sepsis screen is negative. Risk Assessment: Do you want to hurt yourself or someone else? Patient reports no desire to harm self or others. Onset of symptoms was May 20, 2020. 09:40 Method Of Arrival: Ambulatory iw 09:40 Acuity: RADHA 3 iw Triage Assessment: 09:45 Headache History: The patient has had previous headaches and this one is similar to bp previous episodes. General: Appears distressed, uncomfortable, Behavior is cooperative, appropriate for age, agitated, anxious, crying. Pain: Complains of pain in head Pain currently is 10 out of 10 on a pain scale. Pain began 2 hours ago. Also complains of no other associated symptoms. EENT: No deficits noted. Neuro: Level of Consciousness is awake, alert, obeys commands, Oriented to Appropriate for age. Cardiovascular: No deficits noted. Respiratory: No deficits noted. GI: No signs and/or symptoms were reported involving the gastrointestinal system. : No signs and/or symptoms were reported regarding the genitourinary system. Derm: No deficits noted. Musculoskeletal: No deficits noted. Historical: - Allergies: 09:45 METOCLOPRAMIDE; iw 09:45 Morphine; iw 09:45 Oral steroids; iw 09:45 Singulair; iw 09:45 Valium; iw 09:45 Versed; iw - Home Meds: :45 Eliquis 5 mg Oral tab 2 times per day [Active]; clorazepate dipotassium 7.5 mg Oral tab iw 1 tab daily [Active]; clorazepate dipotassium 7.5 mg Oral tab 2 times per day [Active]; omeprazole 20 mg Oral TbEC daily [Active]; oxycodone-acetaminophen 10-325 mg Oral tab 1 tab every 6 hours [Active]; pregabalin Oral [Active]; quinapril 20 mg Oral tab 1 tab once daily [Active]; - PMHx: :45 Hypertension; PE; iw - Immunization history:: Adult Immunizations not up to date. - Social history:: Smoking status: Patient denies any tobacco usage or history of. - Family history:: not pertinent. Screenin:45 Abuse screen: Denies threats or abuse. Denies injuries from another. Nutritional bp screening: No deficits noted. Tuberculosis screening: No symptoms or risk factors identified. Fall Risk None identified. Assessment: 09:45 General: SEE TRIAGE NOTE. bp 10:00 General: Appears uncomfortable, Behavior is cooperative, anxious, crying, restless. aa5 Pain: Complains of pain in whole head Pain currently is 10 out of 10 on a pain scale. Quality of pain is described as aching, pressure, throbbing, Pain began "months ago after my neck fusion surgery" Is continuous. Neuro: Level of Consciousness is awake, alert, obeys commands, Oriented to person, place, time, situation. Cardiovascular: Heart tones S1 S2 present Rhythm is regular. Respiratory: Airway is patent Respiratory effort is even, unlabored, Respiratory pattern is regular, symmetrical. GI: Abdomen is round non-distended, Bowel sounds present X 4 quads. Abd is soft and non tender X 4 quads. : No signs and/or symptoms were reported regarding the genitourinary system. EENT: Reports sore throat and difficulty swallowing since neck fusion surgery " a few months ago" . Derm: Skin is pink, warm \\T\\ dry. Musculoskeletal: Range of motion: intact in all extremities. 11:02 Reassessment: Pt to CT via stretcher . aa5 11:40 Reassessment: Patient is alert, oriented x 3, equal unlabored respirations, skin aa5 warm/dry/pink. Patient states symptoms have not improved. Will reevaluate pain later, pt given Haldol at this time. Rates pain 10/10 on a pain scale. . 12:25 Reassessment: Patient is alert, oriented x 3, equal unlabored respirations, skin aa5 warm/dry/pink. MD notified of no improvement of symptoms at this time (see MAR). General: Appears uncomfortable, Behavior is crying. 12:53 Reassessment: No changes from previously documented assessment. Patient and/or family bp updated on plan of care and expected duration. Pain level reassessed. D/C ON HOLD FOR BLE U/S. 13:20 Reassessment: Patient is alert, oriented x 3, equal unlabored respirations, skin aa5 warm/dry/pink. Patient states feeling better. Patient states symptoms have improved. 13:20 General: Appears comfortable, Behavior is calm, cooperative. aa5 13:40 Reassessment: Patient is alert, oriented x 3, equal unlabored respirations, skin aa5 warm/dry/pink. Vital Signs: 09:40 BP 117 / 80; Pulse 98; Resp 16; Temp 97.8; Pulse Ox 98% on R/A; Weight 71.21 kg; Height iw 5 ft. 6 in. (167.64 cm); Pain 10/10; 11:00 BP 136 / 77; Pulse 64; Resp 17; Pulse Ox 99% ; bp 12:00 BP 158 / 80; Pulse 70; Resp 16; Pulse Ox 100% ; bp 12:55 BP 139 / 68; Pulse 71; Resp 17; Pulse Ox 100% ; bp 09:40 Body Mass Index 25.34 (71.21 kg, 167.64 cm) iw Arvind Coma Score: 10:52 Eye Response: spontaneous(4). Verbal Response: oriented(5). Motor Response: obeys dorian commands(6). Total: 15. ED Course: 09:30 Patient arrived in ED. as 09:43 Triage completed. iw 09:45 Arm band placed on. iw 09:45 Patient has correct armband on for positive identification. Bed in low position. Call bp light in reach. Side rails up X2. 09:48 Zain Sanchez MD is Attending Physician. dorian 10:04 Sierra Carballo, TRAV is Primary Nurse. aa5 10:53 Initial lab(s) drawn, by oh, sent to lab. Inserted saline lock: 20 gauge in right aa5 forearm, using aseptic technique. Blood collected. 11:07 CT Head C Spine In Process Unspecified. EDMS 11:43 XRAY Chest (1 view) In Process Unspecified. EDMS 11:47 Warm blanket given. quality assurance monitor on. Pulse ox on. NIBP on. mh5 11:47 EKG done, by ED staff, reviewed by Zain Sanchez MD. mh5 12:28 Urine collected: clean catch specimen, clear. aa5 12:47 Celestino Jama MD is Referral Physician. dorian 13:12 US Extremity Venous W Compression Rolly In Process Unspecified. EDMS 13:40 No provider procedures requiring assistance completed. IV discontinued, intact, aa5 bleeding controlled, No redness/swelling at site. Pressure dressing applied. Administered Medications: 10:55 Drug: Ativan 2 mg Route: IM; Site: right deltoid; aa5 11:30 Follow up: Response: No adverse reaction; Anxiety unchanged aa5 10:58 Drug: Benadryl 50 mg Route: IVP; Site: right forearm; aa5 11:30 Follow up: Response: No adverse reaction aa5 10:58 Drug: NS 0.9% 1000 ml Route: IV; Rate: 1 bolus; Site: right forearm; aa5 11:03 Not Given (Not available at this time per pharmacy, MD notified. ): HALdol (as aa5 decanoate) 5 mg IM once 11:40 Drug: Haldol 5 mg Route: PO; aa5 12:30 Drug: Zofran (Ondansetron) 4 mg Route: IVP; Site: right forearm; aa5 12:30 Drug: Dilaudid 1 mg Route: IVP; Site: right forearm; aa5 Outcome: 12:47 Discharge ordered by . dorian 13:40 Discharged to home ambulatory, with significant other. aa5 13:40 Condition: improved 13:40 Discharge instructions given to patient, Instructed on discharge instructions, follow up and referral plans. Demonstrated understanding of instructions, follow-up care. 13:44 Patient left the ED. aa5 Signatures: Dispatcher [employer] Zain Llanos MD MD cha Martinez, Amelia as Mya Toth RN RN iw Calderon, Audri, RN RN aa5 Martinez, Maria [facility] Trey Peñaloza RN RN bp Corrections: (The following items were deleted from the chart) 11:36 10:00 General: Appears uncomfortable, Behavior is cooperative, anxious, Landry aa5
[2020-05-20 13:17] LABS: Urine Blood NEGATIVE (NEG); Urine Glucose NEGATIVE (NEG); Urine Protein NEGATIVE (NEG); Urine Specific Gravity 1.015 (1.005-1.030)
--- NOTE | 2020-05-20 13:27 | RAD REPORT ---
EXAM DESCRIPTION: USExtrem Venous W Compress Bil05/20/2020 1:12 pm CLINICAL HISTORY: Leg swelling COMPARISON: October 2019 FINDINGS: The common femoral, superficial femoral, popliteal and posterior tibial veins bilaterally are compressible and demonstrate augmentation. Doppler demonstrates good flow. Left superficial femoral thrombus has almost completely resolved IMPRESSION: Left superficial femoral venous thrombus described October 2019 has almost completely resol salomón
--- NOTE | 2020-05-21 17:17 | EKG ---
Test Date: 2020-05-20 Test Time: 11:25:32 [employer] Records Clerk: THO MEASUREMENT RESULTS: Intervals: Rate: 69 IN: 166 QRSD: 82 QT: 420 QTc: 450 [place]: P: 58 IN: 166 QRS: 55 T: 60 INTERPRETIVE STATEMENTS: Normal sinus rhythm Normal ECG Compared to ECG 04/29/2020 06:45:25 No significant changes Electronically Signed On 05-21-20 17:13:14 PAN PULLER by Miguelito Hidalgo
== END 2020-05-20 13:44 | disposition home or self-care (01) ==
LOC: ER 09:28
DX: R51.9 Headache, unspecified (principal); G89.29 Other chronic pain; I10 Essential (primary) hypertension; Z86.711 Personal history of pulmonary embolism; Z79.01 Long term (current) use of anticoagulants; J02.9 Acute pharyngitis, unspecified; Z86.718 Personal history of other venous thrombosis and embolism
CPT/HCPCS: 93005; 85025; 80048; 36415; 83735; 85610; 80076; 81003; 84484; 83880; 70450; 72125; 71045; 93970; 96375; 96372; 96374; 99284; J1200; J1170; J7030; J2405

== ENCOUNTER 2021-03-23 09:22 | Emergency (ER) | payer OTHER ==
--- OUTSIDE RECORDS SUMMARY | 2021-03-23 09:26 | XMS REPORT | Continuity of Care Document ---
:1955 Author Organization [facility] t Address [address] [place] [address] Care Team Providers Name Role Phone PCP, DOES NOT HAVE A Primary Care Physician Unavailable ACACIA Attending Clinician Unavailable MD Claus ROGER Attending Clinician Unavailable ANIVAL Attending Clinician Unavailable Kevin ROMAN Attending Clinician Unavailable Kevin Stiles Attending Clinician Pob[facility] Attending Clinician Unavailable MELISSA Attending Clinician Unavailable ACACIA Admitting Clinician Unavailable MD Claus ROGER Admitting Clinician Unavailable ANIVAL Admitting Clinician Unavailable Kevin ROMAN Admitting Clinician Unavailable Payers Payer Name Policy Type Policy Number Effective Date Expiration Date S avila MEDICARE PART A [id number] 2018 \T\ B 00:00:00 [facility] [id number] 2018 BENEFIT PLAN 00:00:00 Problems This patient has no known problems. Allergies, Adverse Reactions, Alerts Allergy Allergy Status Severity Reaction(s) Onset Inactive Treating Comm ents Source Name Type Date Date Clinician DIAZEPAM DRUG Active [facility]EDI [facility] ity of 00:00: [address] MIDAZOLA DRUG Active Other-[facility] ers M INGREDI 15 ity of 00:00: [address] MORPHINE DRUG Active Other-[facility] ers INGREDI 15 ity of 00:00: [address] midazola DA Active SV 2009-05 [facility] HCl 05-13 00:00: [address] diazepam DA Active SV 2009-05 [facility] 05-13 00:00: [address] morphine DA Active MO 2009-05 [facility] 05-13 00:00: [address] NO KNOWN Drug Active Univers [facility] Class ity of [facility] Medications This patient has no known medications. Procedures This patient has no known procedures. Encounters Start End Encounter Admission Attending Care Care Encounter Source Date/Time Date/Time Type Type Clinicians Facility Department ID 2020-06-10 2020-06-15 Inpatient RAUDEL ROGER [facility] [id number] [place] 00:00:00 00:00:[address] 2020-06-10 2020-06-10 Outpatient [place], [facility] [id number] [place] 00:00:00 00:00:00 RAFFI [address] 2020-06-10 2020-06-10 Outpatient FLORIAN, [facility] [id number] [place] 00:00:00 00:00:00 RAFFI [address] 2020-06-10 2020-06-10 Outpatient [facility] [id number] [place] 00:00:00 00:00:00 RAFFI [address] 2020-06-10 2020-06-10 Outpatient [facility] [id number] [place] 00:00:00 00:00:00 RAFFI [address] 2020-05-23 2020-05-23 Outpatient [facility] [id number] [place] 00:00:00 00:00:00 RAFFI [address] 2020-05-23 2020-05-23 Outpatient [facility] [id number] [place] 00:00:00 00:00:00 RAFFI [address] 2019-10-31 2019-10-31 Outpatient U [facility] MED [id number] [facility] 02:06:00 02:06:00 2019-10-19 2019-10-19 Outpatient [facility] [id number] [place] 00:00:00 00:00:00 RAFFI [address] 2019-09-19 2019-09-22 Inpatient [facility] [id number] [place] 00:00:00 00:00:00 RAFFI [address] 2019-09-11 2019-09-11 Outpatient FLORIAN, [facility] [id number] [place] 00:00:00 00:00:00 RAFFI [address] 2019-09-11 2019-09-11 Outpatient FL[facility]IAN, [facility] [id number] [place] 00:00:00 00:00:00 RAFFI [address] 2019-09-06 2019-09-06 Outpatient [facility]IAN, [facility] [id number] [place] 00:00:00 00:00:00 RAFFI [address] 2019-09-06 2019-09-06 Outpatient [facility]IAN, [facility] [id number] [place] 00:00:00 00:00:00 RAFFI [address] 2019-09-06 2019-09-06 Outpatient FLORIAN, [facility] [id number] [place] 00:00:00 00:00:00 RAFFI [address] 2019-08-14 2019-08-14 Outpatient [facility]IAN, [facility] [id number] [place] 00:00:00 00:00:00 RAFFI [address] 2019-08-14 2019-08-14 Outpatient [facility]IAN, [facility] [id number] [place] 00:00:00 00:00:00 RAFFI [address] 2019-08-14 2019-08-14 Outpatient [facility]IAN, [facility] [id number] [place] 00:00:00 00:00:00 RAFFI [address] 2019-08-14 2019-08-14 Outpatient [facility]IAN, [facility] [id number] [place] 00:00:00 00:00:00 RAFFI [address] 2019-08-14 2019-08-14 Outpatient [facility]IAN, [facility] [id number] [place] 00:00:00 00:00:00 RAFFI [address] 2019-07-28 2019-07-28 [facility] [id number] 17:09:16 23:59:[address] [facility] 2019-07-28 2019-07-28 [facility] [id number] 17:09:00 23:59:00 Nisreen [place] [id number] [place] [id number] [place] [id number] 2019-07-28 2019-07-28 Urgent Pob1, Acute [facility] [id number] 15:30:08 17:04:14 [facility] [id number] [place] [id number] [place] [id number] [address] [address] 2019-07-04 2019-07-04 Outpatient [facility] [id number] [place] 00:00:00 00:00:[address] IBIS [address] Results Test Description Test Time Test Comments Results Result Comments Source SARS-CoV-2 (COVID-19) RNA [Presence] in Respiratory sp ecimen by 2020-06-10 22:53:11 DIPTI with probe detection Test Item Value Reference Range Interpretation Comme nts SARS-CoV-2 (COVID-19) RNA [Presence] in Respiratory Not detected No t-Detected specimen by DIPTI with probe detection (test code = 84486-4)
[2021-03-23] MEDS ORDERED: NA CHLORIDE 0.9% 1,000 ML ONE (10:18)
[2021-03-23] MEDS ORDERED: MEPERIDINE HCL 25 MG/ML SYR ONE (10:19)
[2021-03-23 10:24] LABS: Absolute Lymphocytes (CBC) 1.5 K/uL (0.7-4.9); Basophils % 0.5 % (0-1.3); Hematocrit 43.6 % (36.0-45.0); Lymphocytes % 24.5 % (15.3-44.8); MPV 7.8 fL (7.6-11.3); RBC Red Blood Cell Count 4.73 M/uL (3.86-4.86)
--- NOTE | 2021-03-23 10:35 | RAD REPORT ---
EXAM DESCRIPTION: CT - Head Brain Wo Cont - 03/23/2021 10:23 am CLINICAL HISTORY: HEADACHE COMPARISON: Head Brain Wo Cont dated 04/29/2020 TECHNIQUE: Axial 5 mm thick images of the head were obtained without IV contrast. All CT scans are performed using dose optimization technique as appropriate and may include automated exposure control or mA/KV adjustment according to patient size. FINDINGS: No intracranial hemorrhage, mass, edema or shift of mid-line structures. No acute infarcti on changes seen. No abnormal extra-axial fluid collections. Ventricles are normal. Patient has no brenda surable atrophy. There are scattered areas of decreased attenuation in the cerebral white matter most likely chronic ischemic change. This is similar to the comparison. Mastoid air cells and visualized portions of the paranasal sinuses are clear. No acute bony findings. IMPRESSION: Negative non-contrast CT head examination for acute finding. Chronic ischemic changes are present similar to the 2019 study.
[2021-03-23 10:50] LABS: Potassium 3.8 mmol/L (3.5-5.1)
[2021-03-23 11:24] LABS: SARS-COV-2 RT PCR NEGATIVE (NEGATIVE)
[2021-03-23] MEDS ORDERED: DIPHENHYDRAMINE 50 MG/ML VIAL ONE (11:24)
[2021-03-23] MEDS ORDERED: KETOROLAC 30 MG/ML INJ ONE (11:24)
--- NOTE | 2021-03-23 12:03 | EDPHYS ---
Physician Documentation [facility] Name: Haley Porter Age: 65 yrs Sex: Female : 1955 Arrival Date: 03/23/2021 Time: 09:26 Bed 19 Private MD: ED Physician Jatin Greenberg HPI: 03/23 09:59 This 65 yrs old Female presents to ER via Ambulatory with complaints of rn Headache. 09:59 The patient complains of pain to the top of head and forehead. The patient describes rn the headache as aching. Onset: The symptoms/episode began/occurred 5 day(s) ago. Associated signs and symptoms: Pertinent positives: nausea, Photophobia Pertinent negatives: altered mental status, fever, neck stiffness, vertigo. Severity of symptoms: At its worst the pain was moderate, in the emergency department the pain is unchanged. Headache History: Denies prior headaches. The symptoms are alleviated by nothing. the symptoms are aggravated by lights, noise. The patient has not experienced similar symptoms in the past. The patient has been recently seen by a physician:. Patient states headache for about [address] Palacios about a and he did not seem too concerned. He changed some of her other medication but still having headache. Denies head injury. Denies fever. Reports associated with light sensitivity and sound sensitivity. Reports nausea. Reports malaise and fatigue. No sick contacts. No focal neurological complaints. Denies prior headaches.. Historical: - Allergies: 09:36 Metoclopramide; ss 09:36 Morphine; ss 09:36 Oral steroids; ss 09:36 Singulair; ss 09:36 Valium; ss 09:36 Versed; ss - PMHx: 09:36 Hypertension; PE; ss - Immunization history:: Client reports having NOT received the Covid vaccine. - Social history:: Smoking status: Patient denies any tobacco usage or history of. - Family history:: not pertinent. - Hospitalizations: : No recent hospitalization is reported. ROS: 09:59 Constitutional: Negative for fever, chills, and weight loss, Eyes: Negative for injury, rn pain, redness, and discharge, Neck: Negative for injury, pain, and swelling, Cardiovascular: Negative for chest pain, palpitations, and edema, Respiratory: Negative for shortness of breath, cough, wheezing, and pleuritic chest pain, Abdomen/GI: Negative for abdominal pain, vomiting, diarrhea, and constipation, Back: Negative for injury and pain, : Negative for injury, bleeding, discharge, and swelling, MS/Extremity: Negative for injury and deformity, Skin: Negative for injury, rash, and discoloration, Neuro: Negative for weakness, numbness, tingling, and seizure. Exam: 09:59 Constitutional: This is a well developed, well nourished patient who is awake, alert, rn and in no acute distress. Sitting on edge of bed, eyes closed, lights on. Head/Face: Normocephalic, atraumatic. Eyes: Pupils equal round and reactive to light, extra-ocular motions intact. Periorbital areas with no swelling, redness, or edema. ENT: Moist mucous membranes, no stridor Neck: Trachea midline, no thyromegaly or masses palpated, and no cervical lymphadenopathy. Supple, full range of motion without nuchal rigidity, or vertebral point tenderness. No Meningismus. Cardiovascular: Regular rate and rhythm. No pulse deficits. Respiratory: No increased work of breathing, no retractions or nasal flaring. Skin: Warm, dry with normal turgor. Normal color with no rashes, no lesions, and no evidence of cellulitis. MS/ Extremity: Pulses equal, no cyanosis. Neurovascular intact. Full, normal range of motion. Equal circumference. Neuro: Awake and alert, GCS 15, oriented to person, place, time, and situation. Cranial nerves II-XII grossly intact. Motor strength 5/5 in all extremities. Sensory grossly intact. Cerebellar exam normal. Vital Signs: 09:34 BP 135 / 89; Pulse 57; Resp 16; Temp 98.1(O); Pulse Ox 99% on R/A; Weight 76.2 kg; ss Height 5 ft. 5 in. (165.10 cm); Pain 10/10; 10:45 BP 135 / 74; Pulse 61; Resp 18; Temp 98.2; Pulse Ox 98% on R/A; sl2 11:00 BP 131 / 78; Pulse 64; Resp 18; Pulse Ox 99% ; sl2 11:30 BP 128 / 64; Pulse 68; Resp 18; Pulse Ox 100% ; sl2 12:00 BP 128 / 64; Pulse 72; Resp 18; Pulse Ox 99% on R/A; sl2 12:30 BP 141 / 72; Pulse 62; Resp 18; Pulse Ox 99% on R/A; sl2 13:00 BP 128 / 68; Pulse 67; Resp 18; Temp 98.2; Pulse Ox 99% on R/A; sl2 09:34 Body Mass Index 27.96 (76.20 kg, 165.10 cm) ss Arvind Coma Score: 12:01 Eye Response: spontaneous(4). Verbal Response: oriented(5). Motor Response: obeys rn commands(6). Total: 15. MDM: 09:38 Patient medically screened. rn 12:01 Differential diagnosis: migraine, neoplasm, tension headache, vasomotor headache. Data rn reviewed: vital signs, nurses notes, lab test result(s), radiologic studies, CT scan, and as a result, I will discharge patient. Counseling: I had a detailed discussion with the patient and/or guardian regarding: the historical points, exam findings, and any diagnostic results supporting the discharge/admit diagnosis, lab results, radiology results, the need for outpatient follow up, to return to the emergency department if symptoms worsen or persist or if there are any questions or concerns that arise at home. Response to treatment: the patient's symptoms have mildly improved after treatment, and as a result, I will discharge patient. Special discussion: I discussed with the patient/guardian in detail that at this point there is no indication for admission to the hospital. It is understood, however, that if the symptoms persist or worsen the patient needs to return immediately for re-evaluation. Based on the history and exam findings, there is no indication for further emergent testing or inpatient evaluation. I discussed with the patient/guardian the need to see the neurologist for further evaluation of the symptoms. ED course: No acute findings on CT head. Covid negative/flu negative. Normal vitals. Normal neuro exam. Will DC home with return precautions now that she feels better.. 03/23 09:48 Order name: [place] Screen Profile; Complete Time: 10:58 rn 03/23 09:48 Order name: CBC with Diff; Complete Time: 10:36 rn 03/23 09:48 Order name: Basic Metabolic Panel; Complete Time: 10:58 rn 03/23 10:40 Order name: COVID-19/FLU A+B; Complete Time: 12:00 EDMS 03/23 09:48 Order name: CT Head Brain wo Cont; Complete Time: 10:36 rn 03/23 09:48 Order name: IV Start; Complete Time: 10:55 rn Administered Medications: 10:35 Drug: Demerol (meperidine) 25 mg Route: IVP; Site: left antecubital; sl2 11:05 Follow up: Response: No adverse reaction; Pain is unchanged, physician notified sl2 10:38 Drug: NS 0.9% 1000 ml Route: IV; Rate: 1000 ml; Site: left antecubital; sl2 12:28 Follow up: IV Status: Completed infusion; IV Intake: 1000ml sl2 11:30 Drug: Ketorolac 30 mg Route: IVP; Site: left antecubital; sl2 12:28 Follow up: Response: No adverse reaction sl2 11:31 Not Given (Patient Refused): Benadryl (diphenhydrAMINE) 25 mg IVP once sl2 12:20 Drug: Dilaudid (HYDROmorphone) 1 mg Route: IVP; Site: left antecubital; sl2 13:17 Follow up: Response: Adverse reaction, Physician notified; Pain is decreased sl2 Disposition Summary: 03/23/21 12:02 Discharge Ordered Location: Home rn Problem: new rn Symptoms: have improved rn Condition: Stable rn Diagnosis - Headache rn Followup: rn - With: Private Physician - When: As needed - Reason: Recheck today's complaints, Re-evaluation by your physician Discharge Instructions: - Discharge Summary Sheet rn - General Headache Without Cause rn Forms: - Medication Reconciliation Form rn - Thank You Letter rn - Antibiotic environmental health and safety intern - Prescription Opioid Use rn Signatures: Dispatcher [employer] Jatin Ryan MD MD rn Smirch, Shelby, RN RN ss Landell, Sophia, RN RN sl2 Corrections: (The following items were deleted from the chart) 10:40 09:49 SARS-COV-2 RT PCR+[id number].[id number] ordered. [facility]
--- NOTE | 2021-03-23 12:03 | ER ---
Nurse's Notes [facility] Name: Haley Porter Age: 65 yrs Sex: Female : 1955 Arrival Date: 03/23/2021 Time: 09:26 Bed 19 Private MD: Diagnosis: Headache Presentation: 03/23 09:34 Chief complaint: Patient states: "I've been having severe headaches all week. I saw Dr. nicol Palacios Wednesday and he doubled my Primidone to BID rather than daily. I told him about my headaches and he didn't say anything about it. My daughter is coming down and I'm worried that this might be COVID.". Coronavirus screen: Client denies travel out of the [place] in the last 14 days. headache, Client presents with at least one sign or symptom that may indicate coronavirus-19. Standard/surgical mask placed on the client. Ebola Screen: Patient denies exposure to infectious person. Patient denies travel to an Ebola-affected area in the 21 days before illness onset. Initial Sepsis Screen: Does the patient meet any 2 criteria? No. Patient's initial sepsis screen is negative. Does the patient have a suspected source of infection? No. Patient's initial sepsis screen is negative. Risk Assessment: Do you want to hurt yourself or someone else? Patient reports no desire to harm self or others. Onset of symptoms was March 16, 2021. 09:34 Method Of Arrival: Ambulatory 09:34 Acuity: RADHA 3 ss Triage Assessment: 10:10 Headache History: The patient has had previous headaches and this one is different than sl2 previous episodes. Pain: Also complains of. 10:10 General: Behavior is calm, cooperative, appropriate for age, Reports headache. Pain: sl2 Pain began gradually, years ago. Historical: - Allergies: 09:36 Metoclopramide; ss 09:36 Morphine; ss 09:36 Oral steroids; ss 09:36 Singulair; ss 09:36 Valium; ss 09:36 Versed; ss - PMHx: 09:36 Hypertension; PE; ss - Immunization history:: Client reports having NOT received the Covid vaccine. - Social history:: Smoking status: Patient denies any tobacco usage or history of. - Family history:: not pertinent. - Hospitalizations: : No recent hospitalization is reported. Screenin:10 Abuse screen: Denies threats or abuse. Denies injuries from another. Nutritional sl2 screening: No deficits noted. Tuberculosis screening: No symptoms or risk factors identified. Fall Risk None identified. No fall in past 12 months (0 pts). No secondary diagnosis (0 pts). No IV (0 pts). Ambulatory Aid- None/Bed Rest/Nurse Assist (0 pts). Gait- Normal/Bed Rest/Wheelchair (0 pts) Mental Status- Oriented to own ability (0 pts). Total Dos Santos Fall Scale indicates No Risk (0-24 pts). Assessment: 10:10 General: Appears uncomfortable, well groomed, well developed. sl2 10:10 Pain: Complains of pain in forehead and top of head Pain does not radiate. Pain sl2 currently is 10 out of 10 on a pain scale. Quality of pain is described as aching. 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 Full function Gait is steady, Speech is normal, Facial symmetry appears normal, Pupils are PERRLA, Reports Denies weakness dizziness, numbness. Cardiovascular: No deficits noted. Respiratory: No deficits noted. Airway is patent Trachea midline Respiratory effort is even, unlabored, Respiratory pattern is regular, symmetrical. GI: No deficits noted. No signs and/or symptoms were reported involving the gastrointestinal system. : No deficits noted. No signs and/or symptoms were reported regarding the genitourinary system. EENT: No deficits noted. No signs and/or symptoms were reported regarding the EENT system. Derm: No deficits noted. No signs and/or symptoms reported regarding the dermatologic system. Musculoskeletal: No deficits noted. No signs and/or symptoms reported regarding the musculoskeletal system. 10:35 Pain: Pain currently is 9 out of 10 on a pain scale. at worst was 10 out of 10 on a sl2 pain scale. 11:20 Pain: Pain currently is 10 out of 10 on a pain scale. sl2 13:18 Pain: Pain currently is 6 out of 10 on a pain scale. sl2 Vital Signs: 09:34 BP 135 / 89; Pulse 57; Resp 16; Temp 98.1(O); Pulse Ox 99% on R/A; Weight 76.2 kg; ss Height 5 ft. 5 in. (165.10 cm); Pain 10/10; 10:45 BP 135 / 74; Pulse 61; Resp 18; Temp 98.2; Pulse Ox 98% on R/A; sl2 11:00 BP 131 / 78; Pulse 64; Resp 18; Pulse Ox 99% ; sl2 11:30 BP 128 / 64; Pulse 68; Resp 18; Pulse Ox 100% ; sl2 12:00 BP 128 / 64; Pulse 72; Resp 18; Pulse Ox 99% on R/A; sl2 12:30 BP 141 / 72; Pulse 62; Resp 18; Pulse Ox 99% on R/A; sl2 13:00 BP 128 / 68; Pulse 67; Resp 18; Temp 98.2; Pulse Ox 99% on R/A; sl2 09:34 Body Mass Index 27.96 (76.20 kg, 165.10 cm) ss Arvind Coma Score: 12:01 Eye Response: spontaneous(4). Verbal Response: oriented(5). Motor Response: obeys rn commands(6). Total: 15. ED Course: 09:26 Patient arrived in ED. mr 09:36 Triage completed. ss 09:36 Arm band placed on right wrist. ss 09:38 Jatin Greenberg MD is Attending Physician. rn 10:10 No provider procedures requiring assistance completed. sl2 10:13 Enid Gonzalez, RN is Primary Nurse. sl2 10:[address] via wheelchair. sl2 10:23 CT Head Brain wo Cont In Process Unspecified. EDMS 10:29 Patient moved back from CT. 2 10:34 Basic Metabolic Panel Sent. 5 10:34 CBC with Diff Sent. 5 10:34 [place] Screen Profile Sent. 5 10:34 Flu Sent. 5 10:34 Initial lab(s) drawn, by nv, sent to lab. COVID swab sent to lab. Flu and/or RSV swab 5 sent to lab. 10:35 Patient has correct armband on for positive identification. Bed in low position. Call [facility] light in reach. Side rails up X 1. Adult w/ patient. Warm blanket given. phototypesetting equipment monitor on. Pulse ox on. NIBP on. 10:35 Inserted saline lock: 22 gauge in left antecubital area, using aseptic technique. sl2 13:35 IV discontinued, intact, bleeding controlled, No redness/swelling at site. Pressure sl2 dressing applied. Administered Medications: 10:35 Drug: Demerol (meperidine) 25 mg Route: IVP; Site: left antecubital; sl2 11:05 Follow up: Response: No adverse reaction; Pain is unchanged, physician notified sl2 10:38 Drug: NS 0.9% 1000 ml Route: IV; Rate: 1000 ml; Site: left antecubital; sl2 12:28 Follow up: IV Status: Completed infusion; IV Intake: 1000ml sl2 11:30 Drug: Ketorolac 30 mg Route: IVP; Site: left antecubital; sl2 12:28 Follow up: Response: No adverse reaction sl2 11:31 Not Given (Patient Refused): Benadryl (diphenhydrAMINE) 25 mg IVP once sl2 12:20 Drug: Dilaudid (HYDROmorphone) 1 mg Route: IVP; Site: left antecubital; sl2 13:17 Follow up: Response: Adverse reaction, Physician notified; Pain is decreased sl2 Intake: 12:28 IV: 1000ml; Total: 1000ml. sl2 Outcome: 12:02 Discharge ordered by . rn 13:40 Discharged to home ambulatory, with family. sl2 13:40 Condition: stable sl2 13:40 Discharge instructions given to patient, Instructed on discharge instructions, follow up and referral plans. Demonstrated understanding of instructions, follow-up care. 13:49 Patient left the ED. aa5 Signatures: Dispatcher [employer] [facility] Lakia Cantu Jatin Anne MD MD rn Calderon, Audri, RN RN 5 Flor Licona RN RN ss Martinez, Maria [facility] Enid Gonzalez RN RN sl2 Corrections: (The following items were deleted from the chart) 10:40 10:34 SARS-COV-2 RT PCR+MOL.LAB.BRZ drawn and sent. [address] 14:02 13:59 Discharged to home with family, 2 2 14:02 13:59 Discharged to home ambulatory, 2 2 14:02 13:59 Condition: stable sl2 sl2 14:02 13:59 Discharge instructions given to patient, Instructed on discharge instructions, sl2 follow up and referral plans. Demonstrated understanding of instructions, follow-up care, sl2
[2021-03-23] MEDS ORDERED: HYDROMORPHONE HCL 1 MG/ML INJ ONE (12:21)
[2021-03-23 14:03] VITALS: TEMP 98.2
[2021-03-23 14:07] VITALS: O2SAT 99
[2021-03-23 14:10] VITALS: BP 128/68
== END 2021-03-23 13:49 | disposition home or self-care (01) ==
LOC: ER 09:22
DX: R51.9 Headache, unspecified (principal)
CPT/HCPCS: 96361; 85025; 80048; 36415; 86308; 0240U; 70450; 96375; 96374; 99285; J1200; J2175; J1170; J7030

== ENCOUNTER 2021-05-06 09:11 | Emergency (ER) | payer OTHER ==
--- OUTSIDE RECORDS SUMMARY | 2021-05-06 09:13 | XMS REPORT | Continuity of Care Document ---
:1955 Author Organization [facility] t Address [address] [place] [address] Care Team Providers Name Role Phone PCP, DOES NOT HAVE A Primary Care Physician Unavailable MELISSA Attending Clinician Unavailable ACACIA Attending Clinician Unavailable MD Claus ROGER Attending Clinician Unavailable ANIVAL Attending Clinician Unavailable JUDITH CASILLAS Attending Clinician Unavailable Kevin ROMAN Attending Clinician Unavailable Kevin Stiles Attending Clinician [place], [facility] Attending Clinician Unavailable ACACIA Admitting Clinician Unavailable MD Claus ROGER Admitting Clinician Unavailable RENA TRACEY Admitting Clinician Unavailable ANIVAL Admitting Clinician Unavailable Kevin ROMAN Admitting Clinician Unavailable Payers Payer Name Policy Type Policy Number Effective Date Expiration Date S avila MEDICARE PART A [id number] 2018 \T\ B 00:00:00 [facility] [id number] 2018 BENEFIT PLAN 00:00:00 Problems This patient has no known problems. Allergies, Adverse Reactions, Alerts Allergy Allergy Status Severity Reaction(s) Onset Inactive Treating Comm ents Source Name Type Date Date Clinician DIAZEPAM DRUG Active Other-Cmnt Univ ers INGREDI 9-15 ity of 00:00: [address] MIDAZOLA DRUG Active Other-Cmnt Univ ers M INGREDI 01-15 ity of 00:00: [address] MORPHINE DRUG Active Other-Cmnt Univ ers INGREDI 01-15 ity of 00:00: [address] midazola DA Active SV 2009-05 [facility] m HCl 05-13 00:00: [address] diazepam DA Active SV 2009-05 [facility] 05-13 00:00: [address] morphine DA Active MO 2009-05 [facility] 05-13 00:00: [address] NO KNOWN Drug Active Univers ALLERGIE Class ity of S [facility] Medications This patient has no known medications. Procedures This patient has no known procedures. Encounters Start End Encounter Admission Attending Care Care Encounter Source Date/Time Date/Time Type Type Clinicians Facility Department ID 2021-04-17 2021-04-17 Outpatient MELISSA [facility] [id number] [place] 00:00:00 00:00:00 IBIS [address] 2021-04-08 2021-04-08 Outpatient MELISSA [facility] [id number] [place] 00:00:00 00:00:00 IBIS [address] 2020-06-10 2020-06-15 Inpatient RAUDEL ROGER [facility] [id number] [place] 00:00:00 00:00:[address] 2020-06-10 2020-06-10 Outpatient FLORIAN [facility] [id number] [place] 00:00:00 00:00:00 RAFFI [address] 2020-06-10 2020-06-10 Outpatient FLORIAN [facility] [id number] [place] 00:00:00 00:00:00 RAFFI [address] 2020-06-10 2020-06-10 Outpatient FLORIAN [facility] [id number] [place] 00:00:00 00:00:00 RAFFI [address] 2020-06-10 2020-06-10 Outpatient FLORIAN [facility] [id number] [place] 00:00:00 00:00:00 RAFFI [address] 2020-05-23 2020-05-23 Outpatient ANIVAL [facility] [id number] [place] 00:00:00 00:00:00 RAFFI [address] 2020-05-23 2020-05-23 Outpatient FLORIAN [facility] [id number] [place] 00:00:00 00:00:00 RAFFI [address] 2019-10-31 2019-10-31 Outpatient U BUBIS, [facility] MED [id number] [facility] 02:06:00 16:58:00 SIHRA 2019-10-19 2019-10-19 Outpatient FLORIAN, [facility] [id number] [place] 00:00:00 00:00:00 RAFFI [address] 2019-09-19 2019-09-22 Inpatient FLORIAN, [facility] [id number] [place] 00:00:00 00:00:00 RAFFI [address] 2019-09-11 2019-09-11 Outpatient FLORIAN, [facility] [id number] [place] 00:00:00 00:00:00 RAFFI [address] 2019-09-11 2019-09-11 Outpatient FLORIAN, [facility] [id number] [place] 00:00:00 00:00:00 RAFFI [address] 2019-09-06 2019-09-06 Outpatient FLORIAN, [facility] [id number] [place] 00:00:00 00:00:00 RAFFI [address] 2019-09-06 2019-09-06 Outpatient FLORIAN, [facility] [id number] [place] 00:00:00 00:00:00 RAFFI [address] 2019-09-06 2019-09-06 Outpatient FLORIAN, [facility] [id number] [place] 00:00:00 00:00:00 RAFFI [address] 2019-08-14 2019-08-14 Outpatient FLORIAN, [facility] [id number] [place] 00:00:00 00:00:00 RAFFI [address] 2019-08-14 2019-08-14 Outpatient FLORIAN, [facility] [id number] [place] 00:00:00 00:00:00 RAFFI [address] 2019-08-14 2019-08-14 Outpatient FLORIAN, [facility] [id number] [place] 00:00:00 00:00:00 RAFFI [address] 2019-08-14 2019-08-14 Outpatient FLORIAN, [facility] [id number] [place] 00:00:00 00:00:00 RAFFI [address] 2019-08-14 2019-08-14 Outpatient FLORIAN, [facility] [id number] [place] 00:00:00 00:00:00 RAFFI [address] 2019-07-28 2019-07-28 Outpatient R JESSIE, [facility] [id number] 17:09:16 23:59:00 GILA hester [facility] 2019-07-28 2019-07-28 [facility] Jessie, [facility] [id number] 17:09:00 23:59:00 Encounter Gila [place] [id number] [place] [id number] [place] [id number] 2019-07-28 2019-07-28 Urgent Pob1, Acute [facility] [id number] 15:30:08 17:04:14 [facility] [id number] [place] [id number] [facility] [id number] [place] [address] 2019-07-04 2019-07-04 [facility]patient [facility] [id number] [address] [place] [address] 00:00:00 00:00:00 IBIS [facility] [facility] Results Test Description Test Time Test Comments Results Result Comments Source SARS-CoV-2 (COVID-19) RNA [Presence] in Respiratory sp ecimen by 2020-06-10 22:53:11 DIPTI with probe detection Test Item Value Reference Range Interpretation Comme nts SARS-CoV-2 (COVID-19) RNA [Presence] in Respiratory Not detected No t-Detected specimen by DIPTI with probe detection (test code = 00492-0)
[2021-05-06 10:59] LABS: Absolute Lymphocytes (CBC) 0.4 K/uL (0.7-4.9); Hematocrit 40.9 % (36.0-45.0); Lymphocytes % 9.2 % (15.3-44.8); MPV 8.4 fL (7.6-11.3); RBC Red Blood Cell Count 4.36 M/uL (3.86-4.86)
[2021-05-06 11:02] LABS: Protime INR 0.97
[2021-05-06 11:27] LABS: BUN Blood Urea Nitrogen 17 mg/dL (7-18); Bicarbonate 25 mmol/L (21-32); Glucose Level 97 mg/dL (74-106); NT PRO-BNP 212 pg/mL (<125); Potassium 3.9 mmol/L (3.5-5.1); Sodium Level 138 mmol/L (136-145); Troponin (Emerg Dept Use Only) < 0.02 ng/mL (0.0-0.045)
--- NOTE | 2021-05-06 11:32 | RAD REPORT ---
EXAM DESCRIPTION: CT - Chest For Pe Angio - 05/06/2021 11:15 am CLINICAL HISTORY: Chest pain COMPARISON: 2019 TECHNIQUE: Dynamically enhanced axial 3 mm thick images of the chest were obtained during administra tion of <100> mL Isovue 370 IV contrast. Coronal and oblique reconstruction images were generated and reviewed. Exam utilizes a protocol for optimal evaluation of pulmonary arterial tree. Maximum intensity projections 3D imaging was utilized All CT scans are performed using dose optimization technique as appropriate and may include automated exposure control or mA/KV adjustment according to patient size. FINDINGS: A pulmonary embolus is not seen. A thoracic aortic aneurysm is not noted. A pleural effusion is not seen. A pericardial effusion is not seen. Previously described right lower lobe opacity has mostly resolved measuring less than 1 centimeter. IMPRESSION: Negative for a pulmonary embolism.
--- NOTE | 2021-05-06 11:43 | RAD REPORT ---
EXAM DESCRIPTION: Jason Single View05/06/2021 10:19 am CLINICAL HISTORY: Shortness of breath COMPARISON: 2020 FINDINGS: Small nodular density right lung diminished in size. The lungs appear clear of acute infiltrate. The heart is normal size IMPRESSION: No acute abnormalities displayed
[2021-05-06 12:45] LABS: SARS-COV-2 RT PCR POSITIVE (NEGATIVE)
--- NOTE | 2021-05-06 13:01 | EDPHYS ---
Physician Documentation [facility] Name: Haley Porter Age: 65 yrs Sex: Female : 1955 Arrival Date: 05/06/2021 Time: 09:12 Bed 8 Private MD: ED Physician Jatin Greenberg HPI: 05/06 09:30 This 65 yrs old Female presents to ER via Wheelchair with complaints of Breathing rn Difficulty. 09:30 The patient has shortness of breath at rest. Onset: The symptoms/episode began/occurred rn yesterday. Duration: The symptoms are continuous. The patient's shortness of breath is aggravated by nothing, is alleviated by nothing. Associated signs and symptoms: Pertinent positives: chest pain, non-productive cough, Pertinent negatives: fever, hemoptysis. Severity of symptoms: At their worst the symptoms were moderate in the emergency department the symptoms are unchanged. The patient has experienced a previous episode. The patient has not recently seen a physician. Patient reports now 2 days with shortness of breath, got worse this morning, feels congestion and cough. Is concerned because spent a lot of time in a [facility] and [facility] recently and thinks may have picked something up. Is not Covid vaccinated. Reports bilateral ear pressure. Reports chest pain that feels like a ton of bricks, nonradiating. Reports history of pulmonary embolism and does not take anticoagulation. No trauma. Denies abdominal pain.. Historical: - Allergies: 09:18 Metoclopramide; ll1 09:18 Morphine; ll1 09:18 Oral steroids; ll1 09:18 Singulair; ll1 09:18 Valium; ll1 09:18 Versed; ll1 - PMHx: 09:18 Hypertension; PE; ll1 - PSHx: 09:18 back SX; ll1 - Immunization history:: Client reports having NOT received the Covid vaccine. Flu vaccine status is unknown. - Social history:: Smoking status: Patient denies any tobacco usage or history of. - Family history:: not pertinent. - Hospitalizations: : No recent hospitalization is reported. ROS: 09:30 Constitutional: Negative for fever, chills, and weight loss, Eyes: Negative for injury, rn pain, redness, and discharge, ENT: Positive for congestion and bilateral ear pressure Neck: Negative for injury, pain, and swelling, Cardiovascular: Positive for chest pain Respiratory: Positive for cough and shortness of breath Abdomen/GI: Negative for abdominal pain, nausea, vomiting, diarrhea, and constipation, Back: Negative for injury and pain, MS/Extremity: Negative for injury and deformity, Skin: Negative for injury, rash, and discoloration, Neuro: Negative for numbness, tingling, and seizure. Exam: 09:30 Constitutional: This is a well developed, well nourished patient who is awake, alert, rn hyperventilating and crying at the same time Head/Face: Normocephalic, atraumatic. Eyes: Pupils equal round and reactive to light, extra-ocular motions intact. Periorbital areas with no swelling, redness, or edema. ENT: No stridor Cardiovascular: Regular rate and rhythm. No pulse deficits. Respiratory: Moderate tachypnea with clear bilateral breath sounds. No wheezing. Abdomen/GI: Soft, non-tender Skin: Warm, dry MS/ Extremity: Pulses equal, no cyanosis. Neurovascular intact. Full, normal range of motion. Equal circumference. Neuro: Awake and alert, GCS 15 10:34 ECG was reviewed by the Attending Physician. rn Vital Signs: 09:15 BP 106 / 56; Pulse 92; Resp 30; Temp 98.2; Pulse Ox 100% on R/A; Weight 77.11 kg; ll1 Height 5 ft. 5 in. (165.10 cm); Pain 8/10; 10:30 BP 101 / 62; Pulse 80; Resp 17; Pulse Ox 98% ; bp 12:30 BP 122 / 71; Pulse 79; Resp 17; Temp 98; Pulse Ox 96% ; bp 09:15 Body Mass Index 28.29 (77.11 kg, 165.10 cm) ll1 MDM: 09:20 Patient medically screened. rn 12:59 Differential diagnosis: Bronchitis pneumonia, Pneumothorax pulmonary edema, Pulmonary rn Embolism Covid. Data reviewed: vital signs, nurses notes, lab test result(s), EKG, radiologic studies, CT scan, plain films, and as a result, I will discharge patient. Data interpreted: Pulse oximetry: on room air is 98 %. Interpretation: normal. Counseling: I had a detailed discussion with the patient and/or guardian regarding: the historical points, exam findings, and any diagnostic results supporting the discharge/admit diagnosis, lab results, radiology results, the need for outpatient follow up, to return to the emergency department if symptoms worsen or persist or if there are any questions or concerns that arise at home. Special discussion: I discussed with the patient/guardian in detail that at this point there is no indication for admission to the hospital. It is understood, however, that if the symptoms persist or worsen the patient needs to return immediately for re-evaluation. ED course: Patient refuses to leave without prescription for ivermectin. Patient has never taken ivermectin but has multiple allergies to medication. I recommended against that the patient insists. Will DC home with return precautions. 05/06 09:29 Order name: BMP rn 05/06 09:29 Order name: Blood Culture Adult (2) rn 05/06 09:29 Order name: CBC with Diff rn 05/06 09:29 Order name: NT PRO-BNP rn 05/06 09:29 Order name: PT-INR; Complete Time: 11:53 rn 05/06 09:29 Order name: Ptt, Activated; Complete Time: 11:53 rn 05/06 09:29 Order name: Troponin (emerg Dept Use Only); Complete Time: 11:53 rn 05/06 09:29 Order name: COVID-19/FLU A+B (Document "Date of Onset" if Symptomatic); Complete Time: rn 12:47 05/06 09:29 Order name: Procalcitonin; Complete Time: 11:53 rn 05/06 09:29 Order name: Basic Metabolic Panel; Complete Time: 11:53 EDND 05/06 09:29 Order name: Blood Culture EDND 05/06 09:29 Order name: CBC with Automated Diff; Complete Time: 11:53 EDND 05/06 09:29 Order name: NT PRO-BNP; Complete Time: 11:53 EDND 05/06 10:25 Order name: Strep; Complete Time: 11:53 rn 05/06 09:29 Order name: CT Chest For PE Angio; Complete Time: 11:53 rn 05/06 09:29 Order name: XRAY CXR (1 view); Complete Time: 11:53 rn 05/06 09:29 Order name: EKG; Complete Time: 09:30 rn 05/06 09:29 Order name: Cardiac monitoring; Complete Time: 10:48 rn 05/06 09:29 Order name: EKG - Nurse/Tech; Complete Time: 10:48 rn 05/06 09:29 Order name: IV Saline Lock; Complete Time: 10:48 rn 05/06 09:29 Order name: Labs collected and sent; Complete Time: 10:48 rn 05/06 09:29 Order name: O2 Per Protocol; Complete Time: 10:48 rn 05/06 09:29 Order name: O2 Sat Monitoring; Complete Time: 10:48 rn 05/06 11:03 Order name: Labs - recollect needed: all tubes; Complete Time: 12:51 dh3 05/06 11:11 Order name: CREATININE WHOLE BLOOD; Complete Time: 11:53 EDMS 05/06 11:41 Order name: Throat Culture EDMS EC:34 Rate is 79 beats/min. Rhythm is regular. QRS [place] is Normal. MO interval is normal. QRS rn interval is normal. QT interval is normal. No Q waves. T waves are Normal. No ST changes noted. Clinical impression: Normal ECG. Interpreted by me. Reviewed by me. Administered Medications: No medications were administered Disposition Summary: 05/06/21 13:00 Discharge Ordered Location: Home rn Problem: new rn Symptoms: have improved rn Condition: Stable rn Diagnosis - SARS-associated coronavirus as the cause of diseases classified elsewhere rn Followup: rn - With: Private Physician - When: As needed - Reason: Recheck today's complaints, Re-evaluation by your physician Discharge Instructions: - Discharge Summary Sheet rn - COVID-19 rn - 10 Things You Can Do to Manage Your COVID-19 Symptoms at Home - [facility] rn - Viral Illness, Adult rn Forms: - Medication Reconciliation Form rn - Thank You Letter rn - Antibiotic rn practitioner - Prescription Opioid Use rn Prescriptions: - ivermectin 3 mg Oral tablet - take 4 tablet by ORAL route once daily for 5 days; 20 tablet; Refills: 0, rn Product Selection Permitted Signatures: Dispatcher [employer] EDND Jatin Greenberg MD MD rn Herrera, Deanna [facility] Ankush Lopez RN RN ll1
--- NOTE | 2021-05-06 13:01 | ER ---
Nurse's Notes [facility] Name: Haley Porter Age: 65 yrs Sex: Female : 1955 Arrival Date: 05/06/2021 Time: 09:12 Bed 8 Private MD: Diagnosis: SARS-associated coronavirus as the cause of diseases classified elsewhere Presentation: 05/06 09:15 Chief complaint: Patient states: Cough, CP, SOB for 2 days. No fever. Coronavirus ll1 screen: Vaccine status: Patient reports being unvaccinated. Client denies travel out of the [place] in the last 14 days. cough unrelated to allergies, difficulty breathing, shortness of breath, sore throat, Client presents with at least one sign or symptom that may indicate coronavirus-19. Standard/surgical mask placed on the client. Ebola Screen: Patient denies travel to an Ebola-affected area in the 21 days before illness onset. Initial Sepsis Screen: Does the patient meet any 2 criteria? No. Patient's initial sepsis screen is negative. Does the patient have a suspected source of infection? Yes: Productive cough/pneumonia. Risk Assessment: Do you want to hurt yourself or someone else? Patient reports no desire to harm self or others. Onset of symptoms was May 05, 2021. 09:15 Method Of Arrival: Wheelchair ll1 09:15 Acuity: RADHA 3 ll1 Triage Assessment: 09:15 General: Appears in no apparent distress. uncomfortable, Behavior is cooperative, bp appropriate for age, anxious. Pain: Denies pain. EENT: Reports pain when swallowing. Neuro: No deficits noted. Cardiovascular: No deficits noted. Respiratory: Reports shortness of breath cough that is Onset: The symptoms/episode began/occurred yesterday, the patient has mild shortness of breath. GI: No signs and/or symptoms were reported involving the gastrointestinal system. : No signs and/or symptoms were reported regarding the genitourinary system. Derm: No deficits noted. Musculoskeletal: No deficits noted. Historical: - Allergies: 09:18 Metoclopramide; ll1 09:18 Morphine; ll1 09:18 Oral steroids; ll1 09:18 Singulair; ll1 09:18 Valium; ll1 09:18 Versed; ll1 - PMHx: 09:18 Hypertension; PE; ll1 - PSHx: 09:18 back SX; ll1 - Immunization history:: Client reports having NOT received the Covid vaccine. Flu vaccine status is unknown. - Social history:: Smoking status: Patient denies any tobacco usage or history of. - Family history:: not pertinent. - Hospitalizations: : No recent hospitalization is reported. Screenin:30 Abuse screen: Denies threats or abuse. Denies injuries from another. Nutritional bp screening: No deficits noted. Tuberculosis screening: No symptoms or risk factors identified. Fall Risk None identified. Assessment: 09:15 General: SEE TRIAGE NOTE. bp 10:30 Cardiovascular: Rhythm is sinus rhythm. Respiratory: Airway is patent Respiratory bp effort is even, unlabored. 12:30 Reassessment: No changes from previously documented assessment. Patient and/or family bp updated on plan of care and expected duration. Pain level reassessed. Patient is alert, oriented x 3, equal unlabored respirations, skin warm/dry/pink. 13:25 Reassessment: PT D/C HOME AMBULATORY WITH FAMILY, DX WITH SARS-COVID. Respiratory: bp Breath sounds are clear bilaterally. Vital Signs: 09:15 BP 106 / 56; Pulse 92; Resp 30; Temp 98.2; Pulse Ox 100% on R/A; Weight 77.11 kg; ll1 Height 5 ft. 5 in. (165.10 cm); Pain 8/10; 10:30 BP 101 / 62; Pulse 80; Resp 17; Pulse Ox 98% ; bp 12:30 BP 122 / 71; Pulse 79; Resp 17; Temp 98; Pulse Ox 96% ; bp 09:15 Body Mass Index 28.29 (77.11 kg, 165.10 cm) ll1 ED Course: 09:12 Patient arrived in ED. am2 09:18 Triage completed. ll1 09:19 Arm band placed on. ll1 09:20 Jatin Greenberg MD is Attending Physician. rn 09:32 Trey Peñaloza RN is Primary Nurse. bp 10:19 XRAY CXR (1 view) In Process Unspecified. EDMS 10:40 Inserted saline lock: 20 gauge in right forearm, using aseptic technique. Blood bp collected. 10:49 COVID-19/FLU A+B (Document "Date of Onset" if Symptomatic) Sent. bp 10:49 Strep Sent. bp 11:15 CT Chest For PE Angio In Process Unspecified. EDMS 12:30 Patient has correct armband on for positive identification. Bed in low position. Call bp light in reach. Side rails up X2. Adult w/ patient. 13:25 No provider procedures requiring assistance completed. IV discontinued, intact, bp bleeding controlled, No redness/swelling at site. Pressure dressing applied. Administered Medications: No medications were administered Outcome: 13:00 Discharge ordered by . rn 13:25 Discharged to home ambulatory, with family. bp 13:25 Condition: stable 13:25 Discharge instructions given to patient, family, Instructed on discharge instructions, follow up and referral plans. medication usage, Demonstrated understanding of instructions, follow-up care, medications, Prescriptions given X 1. 13:27 Patient left the ED. bp Signatures: Dispatcher [employer] EDMS Jatin Greenberg MD MD rn Moreno, Amanda am2 Peltier, Brian, RN RN bp Ankush Lopez RN RN ll1
[2021-05-06 13:36] VITALS: BP 122/71; TEMP 98; O2SAT 96
--- NOTE | 2021-05-07 11:26 | EKG ---
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
== END 2021-05-06 13:27 | disposition home or self-care (01) ==
LOC: ER 09:11
DX: U07.1 COVID-19 (principal); I10 Essential (primary) hypertension; Z88.5 Allergy status to narcotic agent; Z88.8 Allergy status to other drugs, medicaments and biological substances
CPT/HCPCS: 93005; 87040 ×2; 87070; 85025; 80048; 36415; 85610; 82565; 87081; 85730; 84484; 84145; 83880; 0240U; 71275; 71045; 99284; Q9967

== ENCOUNTER 2021-05-16 12:25 | Emergency (ER) | payer OTHER ==
--- OUTSIDE RECORDS SUMMARY | 2021-05-16 12:28 | XMS REPORT | Continuity of Care Document ---
:1955 Author Organization [facility] t Address [address] [place] [address] Care Team Providers Name Role Phone PCP, DOES NOT HAVE A Primary Care Physician Unavailable MELISSA Attending Clinician Unavailable ACACIA Attending Clinician Unavailable MD Claus ROGER Attending Clinician Unavailable ANIVAL Attending Clinician Unavailable JUDITH CASILLAS Attending Clinician Unavailable Kevin ROMAN Attending Clinician Unavailable Kevin Stiles Attending Clinician Po, [facility] Attending Clinician Unavailable ACACIA Admitting Clinician Unavailable MD Claus ROGER Admitting Clinician Unavailable RENA TRACEY Admitting Clinician Unavailable ANIVAL Admitting Clinician Unavailable Kevin ROMAN Admitting Clinician Unavailable Payers Payer Name Policy Type Policy Number Effective Date Expiration Date S avila MEDICARE PART A [id number] 2018 \T\ B 00:00:00 [facility]LY [facility] [id number] 2018 BENEFIT PLAN 00:00:00 Problems This patient has no known problems. Allergies, Adverse Reactions, Alerts Allergy Allergy Status Severity Reaction(s) Onset Inactive Treating Comm ents Source Name Type Date Date Clinician DIAZEPAM DRUG Active Other-Cmnt Univ ers INGREDI 9-15 ity of 00:00: [address] MIDAZOLA DRUG Active Other-Cmnt Univ ers M INGREDI 01-15 ity of 00:00: [address] MORPHINE DRUG Active Other-Cmnt Univ ers INGREDI 01-15 ity of 00:00: [address] midazola DA Active SV 2009-05 [facility] m HCl 05-13 00:00: [address] diazepam DA Active SV 2009-05 [facility] 05-13 00:00: [address] morphine DA Active MO 2009-05 [facility] 05-13 00:00: [address] NO KNOWN Drug Active Univers ALLERGIE Class ity of [facility] Medications This patient has no known medications. Procedures This patient has no known procedures. Encounters Start End Encounter Admission Attending Care Care Encounter Source Date/Time Date/Time Type Type Clinicians Facility Department ID 2021-04-17 2021-04-17 Outpatient MELISSA [facility] [id number] [place] 00:00:00 00:00:00 IBSI [address] 2021-04-08 2021-04-08 Outpatient MELISSA [facility] [id number] [place] 00:00:00 00:00:00 IBIS [address] 2020-06-10 2020-06-15 Inpatient RAUDEL ROGER [facility] [id number] [place] 00:00:00 00:00:[address] 2020-06-10 2020-06-10 Outpatient FLORIAN [facility] [id number] [place] 00:00:00 00:00:00 RAFFI [address] 2020-06-10 2020-06-10 Outpatient FLORIAN [facility] [id number] [place] 00:00:00 00:00:00 RAFFI [address] 2020-06-10 2020-06-10 Outpatient FLORIAN [facility] [id number] [place] 00:00:00 00:00:00 RAFFI [address] 2020-06-10 2020-06-10 Outpatient FLORIAN [facility] [id number] [place] 00:00:00 00:00:00 RAFFI [address] 2020-05-23 2020-05-23 Outpatient ANIVAL [facility] [id number] [place] 00:00:00 00:00:00 RAFFI [address] 2020-05-23 2020-05-23 Outpatient FLORIAN [facility] [id number] [place] 00:00:00 00:00:00 RAFFI [address] 2019-10-31 2019-10-31 Outpatient U BUBIS, [facility] [id number] [facility] 02:06:00 16:58:00 SHIRA 2019-10-19 2019-10-19 Outpatient FLORIAN, [facility] [id number] [place] 00:00:00 00:00:00 RAFFI [address] 2019-09-19 2019-09-22 Inpatient FLORIAN, [facility] [id number] [place] 00:00:00 00:00:00 RAFFI [address] 2019-09-11 2019-09-11 Outpatient FLORIAN, [facility] [id number] [place] 00:00:00 00:00:00 RAFFI [address] 2019-09-11 2019-09-11 Outpatient FLORIAN, [facility] [id number] [place] 00:00:00 00:00:00 RAFFI [address] 2019-09-06 2019-09-06 Outpatient FLORIAN, [facility] [id number] [place] 00:00:00 00:00:00 RAFFI [address] 2019-09-06 2019-09-06 Outpatient FLORIAN, [facility] [id number] [place] 00:00:00 00:00:00 RAFFI [address] 2019-09-06 2019-09-06 Outpatient FLORIAN, [facility] [id number] [place] 00:00:00 00:00:00 RAFFI [address] 2019-08-14 2019-08-14 Outpatient FLORIAN, [facility] [id number] [place] 00:00:00 00:00:00 RAFFI [address] 2019-08-14 2019-08-14 Outpatient FLORIAN, [facility] [id number] [place] 00:00:00 00:00:00 RAFFI [address] 2019-08-14 2019-08-14 Outpatient FLORIAN, [facility] [id number] [place] 00:00:00 00:00:00 RAFFI [address] 2019-08-14 2019-08-14 Outpatient FLORIAN, [facility] [id number] [place] 00:00:00 00:00:00 RAFFI [address] 2019-08-14 2019-08-14 Outpatient FLORIAN, [facility] [id number] [place] 00:00:00 00:00:00 RAFFI [address] 2019-07-28 2019-07-28 Outpatient R JESSIE, [facility] [id number] 17:09:16 23:59:00 GILA hester [facility] 2019-07-28 2019-07-28 [facility] Jessie, [facility] [id number] 17:09:00 23:59:00 Encounter Gila [place] [id number] [place] [id number] [place] [id number] 2019-07-28 2019-07-28 Urgent Pob1, Acute [facility] [id number] 15:30:08 17:04:14 [facility] [place] [id number] Alvin [id number] [facility] [id number] nal [address] 2019-07-04 2019-07-04 Outpatient [facility] [id number] [address] [place] [address] 00:00:00 00:00:00 IBIS [facility] [facility] Results Test Description Test Time Test Comments Results Result Comments Source SARS-CoV-2 (COVID-19) RNA [Presence] in Respiratory sp ecimen by 2020-06-10 22:53:11 DIPTI with probe detection Test Item Value Reference Range Interpretation Comme nts SARS-CoV-2 (COVID-19) RNA [Presence] in Respiratory Not detected No t-Detected specimen by DIPTI with probe detection (test code = 34211-5)
[2021-05-16] MEDS ORDERED: ACETAMINOPHEN 500 MG TAB ONE (13:51)
[2021-05-16] MEDS ORDERED: ONDANSETRON 4 MG/2 ML VIAL ONE (13:51)
[2021-05-16] MEDS ORDERED: NA CHLORIDE 0.9% 1,000 ML ONE (13:52)
[2021-05-16] MEDS ORDERED: MEPERIDINE HCL 25 MG/ML SYR ONE (13:52)
[2021-05-16 14:25] LABS: Absolute Lymphocytes (CBC) 1.3 K/uL (0.7-4.9); Hematocrit 43.4 % (36.0-45.0); Lymphocytes % 27.6 % (15.3-44.8); MPV 7.8 fL (7.6-11.3); RBC Red Blood Cell Count 4.71 M/uL (3.86-4.86)
[2021-05-16 14:33] LABS: Protime INR 0.95
[2021-05-16 14:51] LABS: Albumin 3.8 g/dL (3.4-5.0); Bilirubin Direct 0.1 mg/dL (0-0.2); Bilirubin Total 0.3 mg/dL (0.2-1.0); Potassium 4.2 mmol/L (3.5-5.1); Protein, Total 8.2 g/dL (6.4-8.2)
[2021-05-16 15:08] LABS: Magnesium 2.3 mg/dL (1.8-2.4)
--- NOTE | 2021-05-16 15:13 | RAD REPORT ---
EXAM DESCRIPTION: Jason Single View05/16/2021 2:04 pm CLINICAL HISTORY: Chest pain COMPARISON: May 2021 FINDINGS: The lungs appear clear of acute infiltrate. The heart is normal size IMPRESSION: No acute abnormalities displayed
--- NOTE | 2021-05-16 17:18 | ER ---
Nurse's Notes [facility] Name: Haley Porter Age: 65 yrs Sex: Female : 1955 Arrival Date: 05/16/2021 Time: 12:28 Bed 2 Private MD: Diagnosis: SARS-associated coronavirus as the cause of diseases classified elsewhere;Shortness of breath;Anxiety disorder, unspecified;Other viral pneumonia;Pneumonia due to SARS-associated coronavirus Presentation: 05/16 12:54 Chief complaint: Patient states: Pt was seen in ED on May 06, states was test vg1 Positive for covid and has been having difficulty breathing since then with cough. Also states has had nausea and diarrhea since May 06; also has a h/a and sore throat and states chest pain. States DR Alonzo stated to come to ED bc may be dehydrated. Coronavirus screen: Vaccine status: Patient reports being unvaccinated. Client denies travel out of the [place] in the last 14 days. Ebola Screen: Patient negative for fever greater than or equal to 101.5 degrees Fahrenheit, and additional compatible Ebola Virus Disease symptoms. Initial Sepsis Screen: Does the patient meet any 2 criteria? RR > 20 per min. Does the patient have a suspected source of infection? No. Patient's initial sepsis screen is negative. Risk Assessment: Do you want to hurt yourself or someone else? Patient reports no desire to harm self or others. Onset of symptoms was May 06, 2021. 12:54 Method Of Arrival: Wheelchair vg1 12:54 Acuity: RADHA 3 vg1 Triage Assessment: 12:57 General: Appears uncomfortable, Behavior is cooperative, anxious. Pain: Complains of vg1 pain in head, throat, chest. Historical: - Allergies: 12:57 Metoclopramide; vg1 12:57 Morphine; vg1 12:57 Oral steroids; vg1 12:57 Singulair; vg1 12:57 Valium; vg1 12:57 Versed; vg1 - PMHx: 12:57 Hypertension; PE; vg1 - PSHx: 12:57 back sx; vg1 - Immunization history:: Client reports having NOT received the Covid vaccine. - Social history:: Smoking status: Patient denies any tobacco usage or history of. Screenin:09 Abuse screen: Denies threats or abuse. Nutritional screening: No deficits noted. tw2 Tuberculosis screening: No symptoms or risk factors identified. Fall Risk None identified. Assessment: 14:58 Reassessment: Patient appears in no apparent distress at this time. No changes from tw2 previously documented assessment. Patient and/or family updated on plan of care and expected duration. Pain level reassessed. Patient is alert, oriented x 3, equal unlabored respirations, skin warm/dry/pink. 16:00 Reassessment: Patient appears in no apparent distress at this time. No changes from tw2 previously documented assessment. Patient and/or family updated on plan of care and expected duration. Pain level reassessed. Patient is alert, oriented x 3, equal unlabored respirations, skin warm/dry/pink. 17:01 Reassessment: pt crying upon entry into the room, pt states "i am sick", pt educated as tw2 to the need to ambulate and check HR \\T\\ o2 sat. pt states "its gonna be fine but i am sick", pt encouraged to ambulate and do all the things to get well. pt walks 5 feet out of the room and states "i am not walking that far. pt pulls off pulse ox and returns to exam room. provider notified. pt noted to be at 96% RA prior to pulling off pulse ox. 17:11 Reassessment: pt crying states "i am sick, something is wrong with my chest, yall are tw2 not listening to me, my oxygen is fine, i knew yall were going to tell me that", provider notified. 17:45 Reassessment: pt in CT at this time. tw2 18:32 Reassessment: provider at bedside at this time going over results. tw2 18:58 Reassessment: Patient appears in no apparent distress at this time. No changes from tw2 previously documented assessment. Patient and/or family updated on plan of care and expected duration. Pain level reassessed. Patient is alert, oriented x 3, equal unlabored respirations, skin warm/dry/pink. Vital Signs: 12:54 BP 99 / 51; Pulse 70; Resp 22; Temp 98.2(O); Pulse Ox 99% ; Weight 77.11 kg; Height 5 vg1 ft. 6 in. (167.64 cm); Pain 9/10; 14:25 BP 124 / 68; Pulse 58; Resp 14; Pulse Ox 100% on R/A; tw2 14:57 BP 110 / 57; Pulse 59; Resp 15; Pulse Ox 100% on 2 lpm NC; tw2 15:00 BP 130 / 72; Pulse 61; Resp 14; Pulse Ox 99% on 2 lpm NC; tw2 16:06 BP 135 / 78; Pulse 56; Resp 28; Pulse Ox 100% on 2 lpm NC; tw2 17:13 BP 115 / 56; Pulse 64; Resp 22; Pulse Ox 100% on R/A; tw2 19:01 BP 116 / 77; Pulse 52; Resp 17; Pulse Ox 99% on R/A; tw2 12:54 Body Mass Index 27.44 (77.11 kg, 167.64 cm) vg1 14:57 for pts comfort tw2 ED Course: 12:28 Patient arrived in ED. ds1 12:39 Arsen Lewis MD is Attending Physician. kdr 12:57 Triage completed. vg1 12:57 Arm band placed on. vg1 12:59 Bed in low position. Call light in reach. signaler on. Pulse ox on. NIBP on. tw2 13:09 Bernice Franklin, RN is Primary Nurse. tw2 14:04 XRAY Chest (1 view) In Process Unspecified. EDMS 14:15 Inserted saline lock: 22 gauge in left antecubital area, using aseptic technique. Blood tw2 collected. 14:26 EKG done, by ED staff, reviewed by Arsen Lewis MD. dh3 14:27 Troponin HS Sent. tw2 17:44 CT Chest For PE Angio In Process Unspecified. EDMS 17:[address] Scan, Awaiting: and results prior to discharge. tw2 18:58 No provider procedures requiring assistance completed. IV discontinued, intact, tw2 bleeding controlled, No redness/swelling at site. Pressure dressing applied. Administered Medications: 13:48 Not Given (provider canclled.): morphine 4 mg IVP once; RASS on ADMIN: Combtv4, Very tw2 Agttd3, Agttd2, Rstlss1, AlertClm0, Drwsy-1, Lt Sdtn-2, Mod Sdtn-3, Dp Sdtn-4, UnArsble-5 14:20 Drug: Zofran (Ondansetron) 4 mg Route: IVP; Site: left antecubital; tw2 14:57 Follow up: Response: No adverse reaction; Nausea is decreased tw2 14:20 Drug: Tylenol 1000 mg Route: PO; tw2 14:57 Follow up: Response: No adverse reaction tw2 14:22 Drug: NS 0.9% 1000 ml Route: IV; Rate: 1 bolus; Site: left antecubital; tw2 15:30 Follow up: Response: No adverse reaction; IV Status: Completed infusion; IV Intake: tw2 1000ml 14:22 Drug: Demerol (meperidine) 12.5 mg {Note: rass 0.} Route: IVP; Site: left antecubital; tw2 14:57 Follow up: Response: No adverse reaction; Pain is decreased; RASS: Alert and Calm (0) tw2 17:36 CANCELLED (Physician Discretion): Ativan (LORazepam) 1 mg IVP once jl7 Intake: 15:30 IV: 1000ml; Total: 1000ml. tw2 Outcome: 17:17 Discharge ordered by . kdr 18:58 Discharged to home ambulatory, with significant other. tw2 18:58 Condition: stable 18:58 Discharge instructions given to patient, significant other, Instructed on discharge instructions, follow up and referral plans. medication usage, Demonstrated understanding of instructions, follow-up care, medications, Prescriptions given X 1. 19:02 Patient left the ED. tw2 Signatures: Dispatcher [employer] EDMS Arsen Lewis MD MD kdr Sanford, Demi ds1 Bernice Franklin RN RN tw2 Regina Amado 3 Ermelinda Weaver, RN RN vg1 Sam Enriquez RN jl7 Corrections: (The following items were deleted from the chart) 17:11 17:01 Reassessment: pt crying upon entry into the room, pt states "i am sick", pt tw2 educated as to the need to ambulate and check HR \\T\\ o2 sat. pt states "its gonna be fine but i am sick", pt encouraged to ambulate and do all the things to get well. pt walks 5 feet out of the room and states "i am not walking that far. pt pulls off pulse ox and returns to exam room. provider notified. tw2
--- NOTE | 2021-05-16 17:18 | EDPHYS ---
Physician Documentation [facility] Name: Haley Porter Age: 65 yrs Sex: Female : 1955 Arrival Date: 05/16/2021 Time: 12:28 Bed 2 Private MD: ED Physician Arsen Lewis HPI: 05/16 19:22 This 65 yrs old Female presents to ER via Wheelchair with complaints of Covid + Diff kdr breath. 19:22 The patient has shortness of breath at rest, with light activity. Onset: The kdr symptoms/episode began/occurred gradually, 10 day(s) ago. Duration: The symptoms are intermittent, Worse with exertion. The patient's shortness of breath is aggravated by exertion, light activity, walking. Associated signs and symptoms: Pertinent positives: chest pain, non-productive cough, Diarrhea, Pertinent negatives: dizziness, fever, hemoptysis, loss of consciousness, nausea, numbness in extremities, visual changes, vomiting. Severity of symptoms: At their worst the symptoms were mild in the emergency department the symptoms are unchanged. The patient has experienced similar episodes in the past, multiple times. The patient has been recently seen by a physician: Patient was diagnosed with COVID recently. She is continue to feel ill and feels that it is as if her lungs are getting worse.. Historical: - Allergies: 12:57 Metoclopramide; vg1 12:57 Morphine; vg1 12:57 Oral steroids; vg1 12:57 Singulair; vg1 12:57 Valium; vg1 12:57 Versed; vg1 - PMHx: 12:57 Hypertension; PE; vg1 - PSHx: 12:57 back sx; vg1 - Immunization history:: Client reports having NOT received the Covid vaccine. - Social history:: Smoking status: Patient denies any tobacco usage or history of. ROS: 19:22 Constitutional: Negative for fever, chills, and weight loss, Eyes: Negative for injury, kdr pain, redness, and discharge, Neck: Negative for injury, pain, and swelling, Cardiovascular: Negative for chest pain, palpitations, and edema, Abdomen/GI: Negative for abdominal pain, nausea, vomiting, diarrhea, and constipation, Back: Negative for injury and pain, : Negative for injury, bleeding, discharge, and swelling, MS/Extremity: Negative for injury and deformity, Skin: Negative for injury, rash, and discoloration, Neuro: Negative for headache, weakness, numbness, tingling, and seizure activity. Psych: Negative for depression, anxiety, suicide ideation, homicidal ideation, and hallucinations, Allergy/Immunology: Negative for hives, rash, and allergies, Endocrine: Negative for neck swelling, polydipsia, polyuria, polyphagia, and marked weight changes, Hematologic/Lymphatic: Negative for swollen nodes, abnormal bleeding, and unusual bruising. 19:22 Cardiovascular: Positive for chest pain, with cough, with movement. 19:22 Respiratory: Positive for cough, dyspnea on exertion, shortness of breath, Negative for hemoptysis, orthopnea, pleurisy. Exam: 14:26 ECG was reviewed by the Attending Physician. kdr 19:22 Constitutional: This is a well developed, well nourished patient who is awake, alert, kdr and in no acute distress. Head/Face: Normocephalic, atraumatic. Eyes: Pupils equal round and reactive to light, extra-ocular motions intact. Lids and lashes normal. Conjunctiva and sclera are non-icteric and not injected. Cornea within normal limits. Periorbital areas with no swelling, redness, or edema. Neck: Trachea midline, no thyromegaly or masses palpated, and no cervical lymphadenopathy. Supple, full range of motion without nuchal rigidity, or vertebral point tenderness. No Meningismus. Chest/axilla: Normal chest wall appearance and motion. Nontender with no deformity. No lesions are appreciated. Cardiovascular: Regular rate and rhythm with a normal S1 and S2. No gallops, murmurs, or rubs. Normal PMI, no JVD. No pulse deficits. Respiratory: Lungs have equal breath sounds bilaterally, clear to auscultation and percussion. No rales, rhonchi or wheezes noted. No increased work of breathing, no retractions or nasal flaring. Abdomen/GI: Soft, non-tender, with normal bowel sounds. No distension or tympany. No guarding or rebound. No evidence of tenderness throughout. Back: No spinal tenderness. No costovertebral tenderness. Full range of motion. Skin: Warm, dry with normal turgor. Normal color with no rashes, no lesions, and no evidence of cellulitis. MS/ Extremity: Pulses equal, no cyanosis. Neurovascular intact. Full, normal range of motion. Neuro: Awake and alert, GCS 15, oriented to person, place, time, and situation. Cranial nerves II-XII grossly intact. Motor strength 5/5 in all extremities. Sensory grossly intact. Cerebellar exam normal. Normal gait. Psych: Awake, alert, with orientation to person, place and time. Behavior, mood, and affect are within normal limits. Vital Signs: 12:54 BP 99 / 51; Pulse 70; Resp 22; Temp 98.2(O); Pulse Ox 99% ; Weight 77.11 kg; Height 5 vg1 ft. 6 in. (167.64 cm); Pain 9/10; 14:25 BP 124 / 68; Pulse 58; Resp 14; Pulse Ox 100% on R/A; tw2 14:57 BP 110 / 57; Pulse 59; Resp 15; Pulse Ox 100% on 2 lpm NC; tw2 15:00 BP 130 / 72; Pulse 61; Resp 14; Pulse Ox 99% on 2 lpm NC; tw2 16:06 BP 135 / 78; Pulse 56; Resp 28; Pulse Ox 100% on 2 lpm NC; tw2 17:13 BP 115 / 56; Pulse 64; Resp 22; Pulse Ox 100% on R/A; tw2 19:01 BP 116 / 77; Pulse 52; Resp 17; Pulse Ox 99% on R/A; tw2 12:54 Body Mass Index 27.44 (77.11 kg, 167.64 cm) vg1 14:57 for pts comfort tw2 MDM: 17:17 Patient medically screened. kdr 19:22 Data reviewed: vital signs, nurses notes, lab test result(s), EKG, radiologic studies. kdr Counseling: I had a detailed discussion with the patient and/or guardian regarding: the historical points, exam findings, and any diagnostic results supporting the discharge/admit diagnosis, lab results, radiology results, the need for outpatient follow up. ED course: Patient was very emotional and distraught in the ED. She felt as if she was getting worse but nobody was doing anything about it or believing her. Though she did not clinically warranted a chest CT and she had one previously, I repeated the study to make sure that nothing was being left undone. Certainly her vital signs did not contextually warrant a repeat chest CT. The CT did reveal some groundglass opacities consistent with possible COVID-pneumonia. Corded patient this was new from her last chest CT. She felt that if she had some access to a nebulizer and albuterol that she would be much improved and satisfied with the outcome of her visit here. Those prescriptions were supplied to her. The patient and her were otherwise happy with the care provided and the plan for discharge and follow-up. 05/16 13:46 Order name: Basic Metabolic Panel [facility] 05/16 13:46 Order name: CBC with Diff; Complete Time: 18:26 [facility] 05/16 13:46 Order name: LFT's; Complete Time: 16:33 [facility] 05/16 13:46 Order name: Magnesium; Complete Time: 16:33 [facility] 05/16 13:46 Order name: NT PRO-BNP; Complete Time: 16:33 [facility] 05/16 13:46 Order name: PT-INR; Complete Time: 15:24 [facility] 05/16 13:46 Order name: Troponin HS; Complete Time: 16:33 [facility] 05/16 13:46 Order name: XRAY Chest (1 view); Complete Time: 15:24 [facility] 05/16 13:47 Order name: Basic Metabolic Panel; Complete Time: 16:33 [facility] 05/16 17:21 Order name: CT Chest For PE Angio; Complete Time: 18:26 [facility] 05/16 17:47 Order name: CBC Smear Scan; Complete Time: 18:26 [facility] 05/16 13:46 Order name: EKG; Complete Time: 13:47 [facility] 05/16 13:46 Order name: Cardiac monitoring; Complete Time: 13:47 [facility] 05/16 13:46 Order name: EKG - Nurse/Tech; Complete Time: 14:24 [facility] 05/16 13:46 Order name: IV Saline Lock; Complete Time: 14:24 [facility] 05/16 13:46 Order name: Labs collected and sent; Complete Time: 14:24 [facility] 05/16 13:46 Order name: O2 Per Protocol; Complete Time: 13:47 [facility] 05/16 13:46 Order name: O2 Sat Monitoring; Complete Time: 13:47 kdr EC:26 Rate is 55 beats/min. Rhythm is regular, Sinus bradycardia with No ectopy. QRS [place] is kdr Normal. AR interval is normal. QRS interval is normal. QT interval is normal. Clinical impression: NSR w/ Non-specific ST/T Changes and Sinus bradycardia. Administered Medications: 13:48 Not Given (provider canclled.): morphine 4 mg IVP once; RASS on ADMIN: Combtv4, Very tw2 Agttd3, Agttd2, Rstlss1, AlertClm0, Drwsy-1, Lt Sdtn-2, Mod Sdtn-3, Dp Sdtn-4, UnArsble-5 14:20 Drug: Zofran (Ondansetron) 4 mg Route: IVP; Site: left antecubital; tw2 14:57 Follow up: Response: No adverse reaction; Nausea is decreased tw2 14:20 Drug: Tylenol 1000 mg Route: PO; tw2 14:57 Follow up: Response: No adverse reaction tw2 14:22 Drug: NS 0.9% 1000 ml Route: IV; Rate: 1 bolus; Site: left antecubital; tw2 15:30 Follow up: Response: No adverse reaction; IV Status: Completed infusion; IV Intake: tw2 1000ml 14:22 Drug: Demerol (meperidine) 12.5 mg {Note: rass 0.} Route: IVP; Site: left antecubital; tw2 14:57 Follow up: Response: No adverse reaction; Pain is decreased; RASS: Alert and Calm (0) tw2 17:36 CANCELLED (Physician Discretion): Ativan (LORazepam) 1 mg IVP once [id number] Disposition Summary: 05/16/21 17:17 Discharge Ordered Location: Home kdr Problem: an ongoing problem kdr Symptoms: have improved kdr Condition: Stable kdr Diagnosis - SARS-associated coronavirus as the cause of diseases classified elsewhere kdr - Shortness of breath kdr - Anxiety disorder, unspecified kdr - Other viral pneumonia kdr - Pneumonia due to SARS-associated coronavirus kdr Followup: kdr - With: Private Physician - When: 2 - 3 days - Reason: If symptoms return, Further diagnostic work-up, Recheck today's complaints, Continuance of care, Re-evaluation by your physician Discharge Instructions: - Discharge Summary Sheet kdr - Shortness of Breath, Adult, [id number] kdr - Panic Attack, [id number] kdr - Generalized Anxiety Disorder, Adult kdr - COVID-19 kdr - Things to Know about the COVID-19 Pandemic - [facility] kdr - 10 Things You Can Do to Manage Your COVID-19 Symptoms at Home - [facility] kdr - COVID-19: Quarantine vs. Isolation - [facility] kdr - Prevent the Spread of COVID-19 if You Are Sick - [facility] kdr Forms: - Medication Reconciliation Form kdr - Thank You Letter kdr - Blank Medication kdr Prescriptions: - Albuterol Sulfate 2.5 mg /3 mL (0.083 %) Inhalation Solution for Nebulization - inhale 3 unit by NEBULIZATION route every 4-6 hours As needed; 3 box; Refills: kdr 0, Product Selection Permitted Signatures: Dispatcher [employer] EDMS Arsen Lewis MD MD kdr Bernice Franklin RN RN tw2 Ermelinda Weaver RN RN vg1 Sam Enriquez RN jl7 Corrections: (The following items were deleted from the chart) 17:36 17:35 Ativan (LORazepam) 1 mg IVP once ordered. kdr jl7
[2021-05-16 17:47] LABS: Blood Morphology Comment NOT SEEN (NOT SEEN); Platelet Estimate ADEQ; White Blood Cell Scan OK (OK)
--- NOTE | 2021-05-16 17:53 | RAD REPORT ---
EXAM DESCRIPTION: CT - Chest For Pe Angio - 05/16/2021 5:44 pm CLINICAL HISTORY: sob COMPARISON: May 06, 2011 TECHNIQUE: Dynamically enhanced axial 3 mm thick images of the chest were obtained during administra tion of <100> mL Isovue 370 IV contrast. Coronal and oblique reconstruction images were generated and reviewed. Exam utilizes a protocol for optimal evaluation of pulmonary arterial tree. Maximum intensity projections 3D imaging was utilized All CT scans are performed using dose optimization technique as appropriate and may include automated exposure control or mA/KV adjustment according to patient size. FINDINGS: A pulmonary embolus is not seen. A thoracic aortic aneurysm is not noted. A pleural effusion is not seen. A pericardial effusion is not seen. Mild patchy scattered ground-glass opacities right lung. Small ground-glass opacity left upper lobe. Minimal ground-glass opacities left lower lobe. IMPRESSION: Negative for a pulmonary embolism. Mild ground-glass opacities within the lungs can be seen with Covid pneumonia
[2021-05-16 19:10] VITALS: TEMP 98.2
[2021-05-16 19:19] VITALS: BP 116/77; O2SAT 99
== END 2021-05-16 19:02 | disposition home or self-care (01) ==
LOC: ER 12:25
DX: U07.1 COVID-19 (principal); J12.82 Pneumonia due to coronavirus disease 2019; F41.9 Anxiety disorder, unspecified; I10 Essential (primary) hypertension; Z88.5 Allergy status to narcotic agent; Z88.8 Allergy status to other drugs, medicaments and biological substances
CPT/HCPCS: 96361; 93005; 85025; 80048; 36415; 83735; 85610; 80076; 84484; 83880; 71275; 71045; 96375; 96374; 99285; Q9967; J2175; J7030; J2405

== ENCOUNTER 2023-02-05 19:37 | Emergency (ER) | payer OTHER ==
--- OUTSIDE RECORDS SUMMARY | 2023-02-05 20:01 | XMS REPORT | Continuity of Care Document ---
:1955 Author Organization [facility] t Address [address] [facility] [address] [place] [address] Care Team Providers Name Role Phone PCP, PATIENT DOES NOT HAVE A Primary Care Physician UnavailFelice Keith Attending Clinician Tulio Marie MD Attending Clinician Jana Nam MA Attending Clinician Unavailable IBIS TORRES Attending Clinician Unavailable RAUDEL ROGER Attending Clinician Unavailable MD RAUDEL ROGER Attending Clinician Unavailable RAFFI FLORIAN Attending Clinician Unavailable Shira Casillas Attending Clinician SHIRA CASILLAS Attending Clinician Unavailable GILA ROMAN Attending Clinician Unavailable Gila Stiles Attending Clinician [facility] Attending Clinician Unavailable Bryan Melton Jr Attending Clinician RAUDEL ROGER Admitting Clinician Unavailable MD RAUDEL ROGER Admitting Clinician Unavailable Mihir Tracey Admitting Clinician MIHIR TRACEY Admitting Clinician Unavailable RAFFI FLORIAN Admitting Clinician Unavailable GILA ROMAN Admitting Clinician Unavailable Payers Payer Name Policy Type Policy Number Effective Date Expiration Date Alf gramajo MEDICARE PART A [id number] 2018 \\T\\ [id number] 00:00:00 [facility] [id number] 2018 BENEFIT PLAN 00:00:00 Problems Condition Condition Condition Status Onset Resolution Last Treating Co mments Source Name Details Category Date Date Treatment Clinician Date Depression Depression Disease Active M ethodi 2 st 00:00: Hospita 00 l Oropharyng Oropharyng Disease Active M ethodi eal eal 05-23 st dysphagia dysphagia 00:00: Hosp erick 00 l Hearing Hearing Disease Active Methodi loss of loss of 05-23 right ear right ear 00:00: [facility]osp [facility] 00 l Facial Facial Disease Active [facility] twitching twitching 05-23 st 00:00: Hospita 00 l Frequent Frequent Disease Active Metho di headaches headaches 05-23 st 00:00: Hospita 00 l History of History of Disease Active M ethodi adverse adverse 05-23 drug drug 00:00: Hospita reaction reaction 00 l PE, PE, Diagnosis Active 2019-11-01 Mem oria PULMONARY PULMONARY 10-29 14:09:00 l DVT LEFT DVT LEFT 00:00: Dwight sanon LEG LEG Active 00 10/30/2019 [facility] Follow-up Follow-up Disease Active Met hodi examinatio examinatio [address] n n 00:00: Hospita following following 00 l surgery surgery S/P lumbar S/P lumbar Disease Active M ethodi laminectom laminectom 09-18 st y y 00:00: Hospita 00 l DDD DDD Disease Active Methodi (degenerat (degenerat 4-13 st jhon disc jhon disc 00:00: Hospit a disease), disease), 00 l lumbar lumbar Spinal Spinal Disease Active Methodi stenosis stenosis 4-13 st of lumbar of lumbar 00:00: Hosp erick region region 00 l with with neurogenic neurogenic claudicati claudicati on on 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 4-13 st thy thy 00:00: Hospita 00 l Claudicati Claudicati Disease Active M ethodi on on 07-03 st 00:00: Hospita 00 l Bilateral Bilateral Disease Active Met hodi carotid carotid 2-04 st artery artery 00:00: Hospita stenosis stenosis 00 l PAD PAD Disease Active Methodi (periphera (periphera 2-04 st l artery l artery 00:00: Hospit a disease) disease) 00 l Chronic Chronic Disease Active Methodi back pain back pain 6-05 st 00:00: Hospita 00 l Generalize Generalize Disease Active M ethodi d d [address] st abdominal abdominal 00:00: Hosp erick pain pain 00 l Right Right Disease Active Methodi upper upper 3 st quadrant quadrant 00:00: Hospit a pain pain 00 l Slow Slow Disease Active Methodi transit transit 07-26 st constipati constipati 00:00: Ho spita on on 00 l History of History of Disease Active M ethodi cholecyste cholecyste 07-26 st ctomy ctomy 00:00: Hospita 00 l Essential Essential Disease Active Met hodi hypertensi hypertensi 3 st on on 00:00: Hospita 00 l Splenic Splenic Disease Active 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 00:00: Hospit a 00 l Anxiety Anxiety Disease Active Methodi 07-26 st 00:00: Hospita 00 l ABDOMINAL ABDOMINAL Diagnosis Active 2017-05-06 Memoria PAIN/LOSS PAIN/LOSS 1-04 18:11:00 l OF OF 00:00: [place] APPETITE APPETITE 00 Active 05/06/2017 [facility] SURGERY SURGERY Diagnosis Active 2013-01-20 Memoria THIS THIS 01-19 08:28:00 l MORNING, MORNING, 00:00: Dwight sanon PROBLEMS PROBLEMS 00 BREATHING BREATHING Active 01/19/2013 [facility] POST POST Diagnosis Active 2013-03-05 Mem oria FOLLOW UP FOLLOW UP 01-19 15:20:00 l Active 00:00: Agus 01/19/2013 00 [facility] BDDC-WEIGH BDDC-WEIG Diagnosis Active 2013-01-19 Memoria T LOSS HT LOSS 01-17 08:37:00 l Active 00:00: Agus 01/17/2013 [facility] 783.21 - 783.21 - Diagnosis Active 2013-12-25 Memoria ABNORMAL ABNORMAL 01-16 02:47:00 l LOSS O LOSS O 00:01: Agus 576.0 - 576.0 - 00 POSTCHO POSTCHO Active 01/16/2013 MARIA VICTORIA Leland ABD PAIN ABD PAIN Diagnosis Active 2013-01-16 Memoria Active 01-11 13:45:00 l 01/11/2013 00:00: Dwight sanon [address] Gastroesop Gastroeso Problem Resolve 2021-12-11 Memoria hageal phageal d 23:17:34 l reflux reflux Agus disease disease (disorder) (disorder) Resolved Problem 12/11/2021 [facility] Lumbosacra Lumbosacr Problem Resolve 2021-12-11 Memoria l plexus al plexus d 23:17:34 l neuropathy neuropathy He rmann (disorder) (disorder) Resolved Problem 12/11/2021 [facility] Acid Acid Problem Resolve 2013-01-25 Abdiel leigh ann reflux reflux d 21:01:15 l Resolved Agus Problem 01/25/2013 [facility] HTN - HTN - Problem Resolve 2013-01-25 Abdiel leigh ann Hypertensi Hypertensi d 21:01:15 l on on [place] Resolved Problem 01/25/2013 [facility] Pituitary Pituitary Problem Active 2021-12-11 Memoria adenoma adenoma 23:17:34 l (disorder) (disorder) He rmann Active Problem 12/11/2021 Data migrated from [facility] on 12/25/14. 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 11:57:54 l s s Agus (disorder) (disorder) Active Problem 12/27/2022 [facility] Essential Essential Problem Active 2022-12-27 Memoria tremor tremor 11:57:54 l (disorder) (disorder) He rmann Active Problem 12/27/2022 [facility] Headache Headache Problem Active 2022-12-27 Memoria (finding) (finding) 11:57:54 l Active [place] Problem 12/27/2022 [facility] Hypertensi Hypertens Problem Active 2022-12-27 Memoria ve jhon 11:57:54 l disorder, disorder, Herm emmett systemic systemic arterial arterial (disorder) (disorder) Active Problem 12/27/2022 [facility] Menopausal Menopausa Problem Active 2022-12-27 Memoria syndrome l syndrome 11:57:54 l (disorder) (disorder) He rmann Active Problem 12/27/2022 [facility] Meralgia Meralgia Problem Active 2022-12-27 Memoria parestheti parestheti 11:57:54 l ca ca Agus (disorder) (disorder) Active Problem 12/27/2022 [facility] Migraine Migraine Problem Active 2022-12-27 Memoria (disorder) (disorder) 11:57:54 l Active Agus Problem 12/27/2022 [facility] Tremor Tremor Problem Active 2022-12-27 Abdiel leigh ann (finding) (finding) 11:57:54 l Active Agus Problem 12/27/2022 [facility] [place],[facility] Ulcer of Ulcer of Problem Active 2022-12-27 Memoria lower lower 11:57:54 l extremity extremity Herm emmett (disorder) (disorder) Active Problem 12/27/2022 [facility] History of Past Illness Condition Condition Condition Status Onset Resolution Last Treating Co mments Source Name Details Category Date Date Treatment Clinician Date Unspecifie Unspecifi Problem 2017-2017-05-09 2017-05-09 Sung d ed 1-04 05:06:50 05:06:50 l abdominal abdominal 06:00: Herm emmett pain pain 05/06/2017 8 [facility] Allergies, Adverse Reactions, Alerts Allergy Allergy Status Severity Reaction(s) Onset Inactive Treating Comm ents Source Name Type Date Date Clinician Melody Wilkinsonensi Active Unknown Metho di ast ty to Reaction 2-08 st adverse 00:00: Hospita reaction 00 l s to drug Morphine Propensi Active Other (See Makes her Methodi ty to Comments) 01-[address] adverse 00:00: crazy Hospita reaction 00 l s to drug Diazepam Propensi Active Other (See Makes her Methodi ty to Comments) 01-[address] adverse 00:00: wild Hospita reaction 00 l s to drug Midazola Propensi Active Other (See Makes her Methodi m ty to Comments) 01-[address] adverse 00:00: loud Hospita reaction 00 l s to drug DIAZEPAM DRUG Active [facility] [place] [facility] MIDAZOLA DRUG Active [facility] 01-15 ity of 00:00: [place] [facility] MORPHINE DRUG Active [facility] 15 ity of 00:00: [place] [facility] diazepam diazepam Active 2011-05 Memori a <sup>1</ <sup>1</ 0-23 l sup> sup> 05:00: midazola midazola Active 2011-05 Memori a m<sup>2< m<sup>2< 0-23 l /sup> /sup> 05:00: Agus 00 morphine morphine Active 2011-05 Memori a <sup>3</ <sup>3</ 0-23 l sup> sup> 05:00: midazola DA Active SV 2009-05 [facility] m HCl 05-13 00:00: [place] diazepam DA Active SV 2009-05 [facility] 05-13 00:00: [address] morphine DA Active MO 2009-05 [facility] 05-13 00:00: [address] morphine morphine Active Eldon Goldsmith cortison cortison Active Nikoori a e e larry Goldsmith NO KNOWN Drug Active Univers ALLERGIE Class ity of [facility] Family History Family Member Diagnosis Comments Start Date Stop Date Source Natural father Cancer [facility] Natural father Liver cancer [facility] Natural father Liver disease [facility] Natural father Lung cancer [facility] Maternal grandfather Heart disease [facility] Maternal grandfather Hypertension [facility] Maternal grandmother Heart disease [facility] Maternal grandmother Hypertension [facility] Natural mother Cancer [facility] Natural mother Colon cancer [facility] Natural mother Ovarian cancer [facility] Natural mother Stomach cancer [facility] Social History Social Habit Start Date Stop Date Quantity Comments Source Sexual orientation [facility] Alcohol intake 2022-12-11 2022-12-11 Current Shinto 00:00:00 00:00:00 non-drinker of Hospital alcohol (finding) History of Social 2022-12-11 2022-12-[address] [facility] 00:00:00 00:00:00 Hospital Tobacco use and 2022-03-10 2022-03-10 Smokeless Shinto exposure 00:00:00 00:00:00 tobacco non-user Hospital Social History 2019-10-31 2019-10-31 [facility] 07:24:29 07:24:29 Sex [birth year] JOEL Yip 00:00:00 00:00:00 [facility] Smoking Status Start Date Stop Date Source Tobacco smoking status [facility] Medications Ordered Filled Start Stop Current Ordering Indication Dosage Frequency Signature Comments Components Source Medication Medication Date Date Medication? Clinician (SIG) Name Name Toptanyax 25 Yes 25 mg = 1 Me moria mg oral 8-24 tab, PO, l tablet 16:05: BID, # 60 Dwight n 00 tab, 3 Refill(s), Pharmacy: [id number], 165.1, cm, 12/24/22 10:41:00 CDT, Height, 81.818, kg, 12/24/22 10:41:00 CDT, Weight primidone Yes TAKE 4 Memori a 50 mg oral 8-24 TABLETS BY l tablet 16:01: MOUTH Agus 00 TWICE A DAY omeprazole Yes TAKE 1 Memor ia 20 mg oral 8-24 CAPSULE BY l delayed 15:41: MOUTH [place] release 00 EVERY DAY capsule amLODIPine 0 Yes TAKE 1 Memor ia 10 mg oral 8-24 TABLET BY l tablet 15:41: MOUTH Agus 00 EVERY DAY aspirin 81 0 Yes 81 mg = 1 Me moria mg oral 8-24 cap, PO, l capsule 15:41: Daily, 0 Dwight n 00 Refill(s) gabapentin 0 2022- No Titrate as Methodi (Neurontin) 2-08 05-[address] 300 mg 00:00: 00:00 up to 4 po Hosp er[facility] capsule 00 :00 qhs l clorazepate Yes 7.5mg Q.5D Take 1 Met hodi (TRANXENE) 6-[address] 7.5 MG 00:00: (7.5 mg Hospita tablet 00 total) by l mouth 2 (two) times a day. pregabalin Yes TAKE 1 Metho di (LYRICA) 6-[address] 100 MG 00:00: MOUTH Hospita capsule 00 THREE l TIMES A DAY FOR 90 DAYS primidone 0 Yes 100 mg = 2 Me moria 50 mg oral 5-09 tab, PO, l tablet 21:25: BID, # 360 Maria E nn 00 tab, 3 Refill(s), Pharmacy: [facility] #[id number], 162.56, cm, 09/08/21 16:00:00 CDT, Height, 78.182, kg, 09/08/21 16:00:00 CDT, Weight primidone 0 Yes 100 mg = 2 Me moria 50 mg oral 5-09 tab, PO, l tablet 21:25: BID, # 360 Maria E nn 00 tab, 3 Refill(s), Pharmacy: [facility] #[id number], 162.56, cm, 09/08/21 16:00:00 CDT, Height, 78.182, kg, 09/08/21 16:00:00 CDT, Weight primidone 0 Yes 100 mg = 2 Me moria 50 mg oral 5-09 tab, PO, l tablet 21:25: BID, # 360 Maria E nn 00 tab, 3 Refill(s), Pharmacy: [facility] #[id number], 162.56, cm, 09/08/21 16:00:00 CDT, Height, 78.182, kg, 09/08/21 16:00:00 CDT, Weight primidone 2021-0 Yes 100 mg = 2 Me moria 50 mg oral 5-09 tab, PO, l tablet 21:25: BID, # 360 Maria E nn 00 tab, 3 Refill(s), [id number], 162.56, cm, 09/08/21 16:00:00 CDT, Height, 78.182, kg, 09/08/21 16:00:00 CDT, Weight primidone 2021-0 Yes 100 mg = 2 Me moria 50 mg oral 5-09 tab, PO, l tablet 21:25: BID, # 360 Maria E nn 00 tab, 3 Refill(s), Pharmacy: [facility] #[id number], 162.56, cm, 09/08/21 16:00:00 CDT, Height, 78.182, kg, 09/08/21 16:00:00 CDT, Weight primidone 2021-0 2023- No 200mg Q.5D Take 4 Meth nik (MYSOLINE) 5- 02-[address] 50 MG 00:00: 00:00 (200 mg Hospita tablet 00 :00 total) by l mouth 2 (two) times a day. amLODIPine 2021-0 Yes 10mg QD Take 1 Metho di (NORVASC) 4-28 tablet (10 st 10 mg 00:00: mg total) Hospita tablet 00 by mouth l daily. magnesium 2022-0 Yes 400 mg = 1 Me moria oxide 400 2-10 tab, PO, l mg oral 15:09: Daily, 0 Dwight n tablet 00 Refill(s) magnesium 2022-0 Yes 400 mg = 1 Me moria oxide 400 2-10 tab, PO, l mg oral 15:09: Daily, 0 Dwight n tablet 00 Refill(s) magnesium 2022-0 Yes 400 mg = 1 Me moria oxide 400 2-10 tab, PO, l mg oral 15:09: Daily, 0 Dwight n tablet 00 Refill(s) magnesium 2022-0 Yes 400 mg = 1 Me moria oxide 400 2-10 tab, PO, l mg oral 15:09: Daily, 0 Dwight n tablet 00 Refill(s) magnesium 2022-0 Yes 400 mg = 1 Me moria oxide 400 2-10 tab, PO, l mg oral 15:09: Daily, 0 Dwight n tablet 00 Refill(s) Multi Yes 0 Memoria Vitamin+ 2-10 Refill(s) l 15:08: Multi Yes 0 Memoria Vitamin+ 2-10 Refill(s) l 15:08: Multi Yes 0 Memoria Vitamin+ 2-10 Refill(s) l 15:08: Multi Yes 0 Memoria Vitamin+ 2-10 Refill(s) l 15:08: Multi Yes 0 Memoria Vitamin+ 2-10 Refill(s) l 15:08: montelukast Yes 10 mg = 1 M emoria 10 mg oral 2-10 tab, PO, l tablet 15:07: Bedtime, # Maria E nn 00 90 tab, 1 Refill(s) Trazodone Yes 50 mg = 1 Mem oria Hydrochlori 2-10 tab, PO, l de 50 MG 15:07: Bedtime, # melendez Oral Tablet 00 30 tab, 1 Refill(s) montelukast Yes 10 mg = 1 M emoria 10 mg oral 2-10 tab, PO, l tablet 15:07: Bedtime, # Maria E nn 00 90 tab, 1 Refill(s) Trazodone Yes 50 mg = 1 Mem oria Hydrochlori 2-10 tab, PO, l de 50 MG 15:07: Bedtime, # melendez Oral Tablet 00 30 tab, 1 Refill(s) montelukast Yes 10 mg = 1 M emoria 10 mg oral 2-10 tab, PO, l tablet 15:07: Bedtime, # Maria E nn 00 90 tab, 1 Refill(s) Trazodone Yes 50 mg = 1 Mem oria Hydrochlori 2-10 tab, PO, l de 50 MG 15:07: Bedtime, # melendez Oral Tablet 00 30 tab, 1 Refill(s) montelukast Yes 10 mg = 1 M emoria 10 mg oral 2-10 tab, PO, l tablet 15:07: Bedtime, # Maria E nn 00 90 tab, 1 Refill(s) Trazodone 2021-0 Yes 50 mg = 1 Mem oria Hydrochlori 2-10 tab, PO, l de 50 MG 15:07: Bedtime, # Her melendez Oral Tablet 00 30 tab, 1 Refill(s) montelukast 2021-0 Yes 10 mg = 1 M emoria 10 mg oral 2-10 tab, PO, l tablet 15:07: Bedtime, # Maria E nn 00 90 tab, 1 Refill(s) Trazodone 2021-0 Yes 50 mg = 1 Mem oria Hydrochlori 2-10 tab, PO, l de 50 MG 15:07: Bedtime, # Her melendez Oral Tablet 00 30 tab, 1 Refill(s) Vitamin C 2021-0 Yes 1,000 mg = Me moria 1000 mg 2-10 1 tab, PO, l oral tablet 15:05: Daily, 0 He rmann 00 Refill(s) Vitamin C 2021-0 Yes 1,000 mg = Me moria 1000 mg 2-10 1 tab, PO, l oral tablet 15:05: Daily, 0 He rmann 00 Refill(s) Vitamin C 2021-0 Yes 1,000 mg = Me moria 1000 mg 2-10 1 tab, PO, l oral tablet 15:05: Daily, 0 He rmann 00 Refill(s) Vitamin C 2021-0 Yes 1,000 mg = Me moria 1000 mg 2-10 1 tab, PO, l oral tablet 15:05: Daily, 0 He rmann 00 Refill(s) Vitamin C 2021-0 Yes 1,000 mg = Me moria 1000 mg 2-10 1 tab, PO, l oral tablet 15:05: Daily, 0 He rmann 00 Refill(s) amLODIPine 2021-0 No TAKE 1 Memor ia 10 mg oral 2-10 TABLET BY l tablet 15:04: ORAL ROUTE Maria E nn 00 EVERY DAY FOR AGITATION amLODIPine 2021-0 No TAKE 1 Memor ia 10 mg oral 2-10 TABLET BY l tablet 15:04: ORAL ROUTE Maria E nn 00 EVERY DAY FOR AGITATION amLODIPine 2021-0 No TAKE 1 Memor ia 10 mg oral 2-10 TABLET BY l tablet 15:04: ORAL ROUTE Maria E nn 00 EVERY DAY FOR AGITATION amLODIPine No TAKE 1 Memor ia 10 mg oral 2-10 TABLET BY l tablet 15:04: ORAL ROUTE Maria E nn 00 EVERY DAY FOR AGITATION amLODIPine 0 No TAKE 1 Memor ia 10 mg oral 2-10 TABLET BY l tablet 15:04: ORAL ROUTE Maria E nn 00 EVERY DAY FOR AGITATION quetiapine Yes See Memoria 25 MG Oral 2-02 Instructio l Tablet 15:22: ns, Take 1 Maria E nn [Seroquel] 00 tab po 1 hour prior to MRI, may repeat q 15 min. if still anxious, # 5 tab, 0 Refill(s), Pharmacy: [facility] #[id number], 165.1, cm, 03/24/21 13:57:00 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, Height, 60.909, kg, 03/24/21 13:57:00 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, Weight quetiapine Yes See Memoria 25 MG Oral 2-02 Instructio l Tablet 15:22: ns, Take 1 Maria E nn [Seroquel] 00 tab po 1 hour prior to MRI, may repeat q 15 min. if still anxious, # 5 tab, 0 Refill(s), Pharmacy: [facility] #[id number], 165.1, cm, 03/24/21 13:57:00 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, Height, 60.909, kg, 03/24/21 13:57:00 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, Weight quetiapine Yes See Memoria 25 MG Oral 2-02 Instructio l Tablet 15:22: ns, Take 1 Maria E nn [Seroquel] 00 tab po 1 hour prior to MRI, may repeat q 15 min. if still anxious, # 5 tab, 0 Refill(s), Pharmacy: [facility] #[id number], 165.1, cm, 03/24/21 13:57:00 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, Height, 60.909, kg, 03/24/21 13:57:00 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, Weight quetiapine Yes See Memoria 25 MG Oral 2-02 Instructio l Tablet 15:22: ns, Take 1 Maria E nn [Seroquel] 00 tab po 1 hour prior to MRI, may repeat q 15 min. if still anxious, # 5 tab, 0 Refill(s), Pharmacy: [id number], 165.1, cm, 03/24/21 13:57:00 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, Height, 60.909, kg, 03/24/21 13:57:00 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, Weight quetiapine Yes See Memoria 25 MG Oral 2-02 Instructio l Tablet 15:22: ns, Take 1 Maria E nn [Seroquel] 00 tab po 1 hour prior to MRI, may repeat q 15 min. if still anxious, # 5 tab, 0 Refill(s), Pharmacy: [facility] #[id number], 165.1, cm, 03/24/21 13:57:00 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, Height, 60.909, kg, 03/24/21 13:57:00 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, Weight 24 HR 2020-05 No 37.5 mg = Memoria venlafaxine 2-21 1 cap, PO, l 37.5 MG 19:04: Daily, # Dwight n Extended 00 90 cap, 3 Release Refill(s), [facility]: [Effexor] [facility] #[id number], 165.1, cm, 03/24/21 13:57:00 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, Height, 60.909, kg, 03/24/21 13:57:00 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, Weight 24 HR 2020-05 No 37.5 mg = Memoria venlafaxine 2-21 1 cap, PO, l 37.5 MG 19:04: Daily, # Dwight n Extended 00 90 cap, 3 Release Refill(s), [facility]: [Effexor] [facility] #[id number], 165.1, cm, 03/24/21 13:57:00 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, Height, 60.909, kg, 03/24/21 13:57:00 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, Weight 24 HR 2020-05 No 37.5 mg = Memoria venlafaxine 2-21 1 cap, PO, l 37.5 MG 19:04: Daily, # Dwight n Extended 00 90 cap, 3 Release Refill(s), [facility]: [Effexor] [facility] #[id number], 165.1, cm, 03/24/21 13:57:00 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, Height, 60.909, kg, 03/24/21 13:57:00 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, Weight 24 HR 2020-05 No 37.5 mg = Memoria venlafaxine 2-21 1 cap, PO, l 37.5 MG 19:04: Daily, # Dwight n Extended 00 90 cap, 3 Release Refill(s), [facility]: [Effexor] [id number], 165.1, cm, 03/24/21 13:57:00 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, Height, 60.909, kg, 03/24/21 13:57:00 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, Weight 24 HR 2020-05 No 37.5 mg = Memoria venlafaxine 2-21 1 cap, PO, l 37.5 MG 19:04: Daily, # Dwight n Extended 00 90 cap, 3 Release Refill(s), [facility]: [Effexor] [id number], 165.1, cm, 03/24/21 13:57:00 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, Height, 60.909, kg, 03/24/21 13:57:00 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, Weight 24 HR 2020-05 Yes 37.5 mg = Memoria venlafaxine 1-23 1 cap, PO, l 37.5 MG 21:13: Daily, # Dwight n Extended 00 30 cap, 3 Release Refill(s), [facility]: [Effexor] [id number], 165.1, cm, 03/24/21 13:57:00 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, Height, 60.909, kg, 03/24/21 13:57:00 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, Weight 24 HR 2020-05 Yes 37.5 mg = Memoria venlafaxine 1-23 1 cap, PO, l 37.5 MG 21:13: Daily, # Dwight n Extended 00 30 cap, 3 Release Refill(s), [facility]: [Effexor] [id number], 165.1, cm, 03/24/21 13:57:00 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, Height, 60.909, kg, 03/24/21 13:57:00 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, Weight 24 HR 2020-05 Yes 37.5 mg = Memoria venlafaxine 1-23 1 cap, PO, l 37.5 MG 21:13: Daily, # Dwight n Extended 00 30 cap, 3 Release Refill(s), [facility]: [Effexor] [id number], 165.1, cm, 03/24/21 13:57:00 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, Height, 60.909, kg, 03/24/21 13:57:00 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, Weight 24 HR 2020-05 Yes 37.5 mg = Memoria venlafaxine 1-23 1 cap, PO, l 37.5 MG 21:13: Daily, # Dwight n Extended 00 30 cap, 3 Release Refill(s), [facility]: [Effexor] [id number], 165.1, cm, 03/24/21 13:57:00 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, Height, 60.909, kg, 03/24/21 13:57:00 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, Weight 24 HR 2020-05 Yes 37.5 mg = Memoria venlafaxine 1-23 1 cap, PO, l 37.5 MG 21:13: Daily, # Dwight n Extended 00 30 cap, 3 Release Refill(s), [facility]: [Effexor] [id number], 165.1, cm, 03/24/21 13:57:00 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, Height, 60.909, kg, 03/24/21 13:57:00 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, Weight 24 HR 2020-05 No 37.5 mg = Memoria venlafaxine 1-22 1 cap, PO, l 37.5 MG 23:50: Daily, X Dwight n Extended 00 30 day, # Release 30 cap, 3 Capsule Refill(s), [Effexor] Pharmacy: [id number], 165.1, cm, 03/24/21 13:57:00 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, Height, 60.909, kg, 03/24/21 13:57:00 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, Weight 24 HR 2020-05 No 37.5 mg = Memoria venlafaxine 1-22 1 cap, PO, l 37.5 MG 23:50: Daily, X Dwight n Extended 00 30 day, # Release 30 cap, 3 Capsule Refill(s), [Effexor] Pharmacy: [id number], 165.1, cm, 03/24/21 13:57:00 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, Height, 60.909, kg, 03/24/21 13:57:00 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, Weight 24 HR 2020-05 No 37.5 mg = Memoria venlafaxine 1-22 1 cap, PO, l 37.5 MG 23:50: Daily, X Dwight n Extended 00 day, # Release 30 cap, 3 Capsule Refill(s), [Effexor] Pharmacy: [facility] #[id number], 165.1, cm, 03/24/21 13:57:00 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, Height, 60.909, kg, 03/24/21 13:57:00 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, Weight 24 HR 2020-05 No 37.5 mg = Memoria venlafaxine -22 1 cap, PO, l 37.5 MG 23:50: Daily, X Dwight n Extended 00 day, # Release 30 cap, 3 Capsule Refill(s), [Effexor] Pharmacy: [facility] #[id number], 165.1, cm, 03/24/21 13:57:00 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, Height, 60.909, kg, 03/24/21 13:57:00 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, Weight 24 HR 2020-05 No 37.5 mg = Memoria venlafaxine - 1 cap, PO, l 37.5 MG 23:50: Daily, X [place] n Extended day, # Release 30 cap, 3 Capsule Refill(s), [Effexor] Pharmacy: [facility] #[id number], 165.1, cm, 03/24/21 13:57:00 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, Height, 60.909, kg, 03/24/21 13:57:00 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, Weight ubrogepant 2020-05 Yes 100 mg = 1 M emoria 100 MG Oral -22 tab, PO, l Tablet 20:55: PRN, PRN [place] [Ubrelvy] 00 Other -See Comment, X 30 day, # 10 tab, 1 Refill(s), Pharmacy: [facility] #[id number], For Migraine. May repeat dose after 2 hours. 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 ubrogepant 2020-05 Yes 100 mg = 1 M emoria 100 MG Oral 1-22 tab, PO, l Tablet 20:55: PRN, PRN [place] [Ubrelvy] 00 Other -See Comment, X 30 day, # 10 tab, 1 Refill(s), Pharmacy: [facility] #[id number], For Migraine. May repeat dose after 2 hours. 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 ubrogepant 2020-05 Yes 100 mg = 1 M emoria 100 MG Oral 1-22 tab, PO, l Tablet 20:55: PRN, PRN [place] [Ubrelvy] 00 Other -See Comment, X 30 day, # 10 tab, 1 Refill(s), Pharmacy: [facility] #[id number], For Migraine. May repeat dose after 2 hours. 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 ubrogepant 2020-05 Yes 100 mg = 1 M emoria 100 MG Oral 1-22 tab, PO, l Tablet 20:55: PRN, PRN [place] [Ubrelvy] 00 Other -See Comment, X 30 day, # 10 tab, 1 Refill(s), Pharmacy: [facility] #[id number], For Migraine. May repeat dose after 2 hours. 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 ubrogepant 2020-05 Yes 100 mg = 1 M emoria 100 MG Oral 1-22 tab, PO, l Tablet 20:55: PRN, PRN [place] [Ubrelvy] 00 Other -See Comment, X 30 day, # 10 tab, 1 Refill(s), Pharmacy: [facility] #[id number], For Migraine. May repeat dose after 2 hours. 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, Weight 24 HR 2020-05 No 37.5 mg = Memoria venlafaxine 1-22 1 cap, PO, l 37.5 MG 20:53: Daily, X [place] Extended day, # Release 30 cap, 3 Capsule Refill(s), [Effexor] Pharmacy: [facility] #[id number], 165.1, cm, 03/24/21 13:57:00 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, Height, 60.909, kg, 03/24/21 13:57:00 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, Weight 24 HR 2020-05 No 37.5 mg = Memoria venlafaxine 1-22 1 cap, PO, l 37.5 MG 20:44: Daily, X [place] n Extended day, # Release 30 cap, 3 Capsule Refill(s), [Effexor] Pharmacy: [facility] #[id number], 165.1, cm, 03/24/21 13:57:00 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, Height, 60.909, kg, 03/24/21 13:57:00 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, Weight 24 HR 2020-05 No 37.5 mg = Memoria venlafaxine 1-22 1 cap, PO, l 37.5 MG 20:44: Daily, X [place] n Extended day, # Release 30 cap, 3 Capsule Refill(s), [Effexor] Pharmacy: [facility] #[id number], 165.1, cm, 03/24/21 13:57:00 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, Height, 60.909, kg, 03/24/21 13:57:00 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, Weight 24 HR 2020-05 No 37.5 mg = Memoria venlafaxine 1-22 1 cap, PO, l 37.5 MG 20:44: Daily, X [place] n Extended day, # Release 30 cap, 3 Capsule Refill(s), [Effexor] Pharmacy: [facility] #[id number], 165.1, cm, 03/24/21 13:57:00 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, Height, 60.909, kg, 03/24/21 13:57:00 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, Weight 24 HR 2020-05 No 37.5 mg = Memoria venlafaxine 1-22 1 cap, PO, l 37.5 MG 20:44: Daily, X [place] n Extended day, # Release 30 cap, 3 Capsule Refill(s), [Effexor] Pharmacy: [facility] #[id number], 165.1, cm, 03/24/21 13:57:00 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, Height, 60.909, kg, 03/24/21 13:57:00 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, Weight 24 HR 2020-05 No 37.5 mg = Memoria venlafaxine 05-24 1 cap, PO, l 37.5 MG 20:44: Daily, X [place] n Extended 00 30 day, # Release 30 cap, 3 Capsule Refill(s), [Effexor] Pharmacy: [facility] 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, Height, 60.909, kg, 03/24/21 13:57:00 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, Weight primidone 2020-05 Yes 50 mg = 1 Mem oria 50 mg oral 1-17 tab, PO, l tablet 19:30: BID, # 180 Maria E nn 00 tab, 3 Refill(s), Pharmacy: [facility] #[id number], 165.1, cm, 03/19/21 13:14:00 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, Height, 78.636, kg, 03/19/21 13:14:00 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, Weight primidone 2020-05 Yes 50 mg = 1 Mem oria 50 mg oral 1-17 tab, PO, l tablet 19:30: BID, # 180 Maria E nn 00 tab, 3 Refill(s), Pharmacy: [facility] #[id number], 165.1, cm, 03/19/21 13:14:00 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, Height, 78.636, kg, 03/19/21 13:14:00 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, Weight primidone 2020-05 Yes 50 mg = 1 Mem oria 50 mg oral 1-17 tab, PO, l tablet 19:30: BID, # 180 Maria E nn 00 tab, 3 Refill(s), Pharmacy: [facility] #[id number], 165.1, cm, 03/19/21 13:14:00 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, Height, 78.636, kg, 03/19/21 13:14:00 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, Weight primidone 2020-05 Yes 50 mg = 1 Mem oria 50 mg oral 1-17 tab, PO, l tablet 19:30: BID, # 180 Maria E nn 00 tab, 3 Refill(s), Pharmacy: [facility] #[id number], 165.1, cm, 03/19/21 13:14:00 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, Height, 78.636, kg, 03/19/21 13:14:00 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, Weight primidone 2020-05 Yes 50 mg = 1 Mem oria 50 mg oral 1-17 tab, PO, l tablet 19:30: BID, # 180 Maria E nn 00 tab, 3 Refill(s), Pharmacy: [facility] #[id number], 165.1, cm, 03/19/21 13:14:00 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, Height, 78.636, kg, 03/19/21 13:14:00 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, Weight Potassium 2020-0 Yes 0 Memoria Chloride 8-11 Refill(s) l 15:44: [place] 00 Potassium 2020-0 Yes 0 Memoria Chloride 8-11 Refill(s) l 15:44: [place] 00 Potassium 2020-0 Yes 0 Memoria Chloride 8-11 Refill(s) l 15:44: [place] 00 Potassium 2020-0 Yes 0 Memoria Chloride 8-11 Refill(s) l 15:44: [place] 00 Potassium 2020-0 Yes 0 Memoria Chloride 8-11 Refill(s) l 15:44: [place] 00 Elderberry 2020-0 Yes 0 Memoria preparation 8-11 Refill(s) l 15:43: [place] 00 Mucinex 2020-0 Yes 600 mg, Memoria 8-11 PO, Q12H, l 15:43: 0 [place] 00 Refill(s) Elderberry 0 Yes 0 Memoria preparation 8-11 Refill(s) l 15:43: [place] 00 Mucinex 2020-0 Yes 600 mg, Memoria 8-11 PO, Q12H, l 15:43: 0 [place] 00 Refill(s) Elderberry 2020-0 Yes 0 Memoria preparation 8-11 Refill(s) l 15:43: [place] 00 Mucinex 2020-0 Yes 600 mg, Memoria 8-11 PO, Q12H, l 15:43: 0 [place] 00 Refill(s) Elderberry 2020-0 Yes 0 Memoria preparation 8-11 Refill(s) l 15:43: [place] 00 Mucinex 2020-0 Yes 600 mg, Memoria 8-11 PO, Q12H, l 15:43: 0 [place] 00 Refill(s) Elderberry 0 Yes 0 Memoria preparation 8-11 Refill(s) l 15:43: [place] 00 Mucinex 0 Yes 600 mg, Memoria 8-11 PO, Q12H, l 15:43: 0 [place] 00 Refill(s) Vitamin D3 0 Yes 10 Memoria oral tablet 8-11 microgram, l 15:42: PO, Daily, [place] 00 0 Refill(s) Vitamin C 0 Yes 1,000 mg = Me moria 1000 mg 8-11 1 tab, PO, l oral tablet 15:42: Daily, 0 [place] 00 Refill(s) Vitamin D3 0 Yes 10 Memoria oral tablet 8-11 microgram, l 15:42: PO, Daily, [place] 0 Refill(s) Vitamin C 0 Yes 1,000 mg = Me moria 1000 mg 8-11 1 tab, PO, l oral tablet 15:42: Daily, 0 [place] 00 Refill(s) Vitamin D3 0 Yes 10 Memoria oral tablet 8-11 microgram, l 15:42: PO, Daily, [place] 0 Refill(s) Vitamin C 0 Yes 1,000 mg = Me moria 1000 mg 8-11 1 tab, PO, l oral tablet 15:42: Daily, 0 [place] 00 Refill(s) Vitamin D3 0 Yes 10 Memoria oral tablet 8-11 microgram, l 15:42: PO, Daily, [place] 0 Refill(s) Vitamin C 0 Yes 1,000 mg = Me moria 1000 mg 8-11 1 tab, PO, l oral tablet 15:42: Daily, 0 [place] 00 Refill(s) Vitamin D3 0 Yes 10 Memoria oral tablet 8-11 microgram, l 15:42: PO, Daily, [place] 0 Refill(s) Vitamin C 0 Yes 1,000 mg = Me moria 1000 mg 8-11 1 tab, PO, l oral tablet 15:42: Daily, 0 [place] 00 Refill(s) Vitamin B12 0 Yes 0 Memori a 8-11 Refill(s) l 15:41: [place] 00 Vitamin B12 2020-0 Yes 0 Memori a 8-11 Refill(s) l 15:41: Vitamin B12 2020-0 Yes 0 Memori a 8-11 Refill(s) l 15:41: Vitamin B12 2020-0 Yes 0 Memori a 8-11 Refill(s) l 15:41: Vitamin B12 2020-0 Yes 0 Memori a 8-11 Refill(s) l 15:41: clorazepate 2020-0 Yes 7.5 mg = 1 Memoria 7.5 mg oral 8-11 tab, PO, l tablet 15:40: TID, 0 Refill(s) clorazepate 2020-0 Yes 7.5 mg = 1 [facility]oria 7.5 mg oral 8-11 tab, PO, l tablet 15:40: TID, 0 Refill(s) clorazepate 2020-0 Yes 7.5 mg = 1 Memoria 7.5 mg oral 8-11 tab, PO, l tablet 15:40: TID, 0 Refill(s) clorazepate 2020-0 Yes 7.5 mg = 1 Memoria 7.5 mg oral 8-11 tab, PO, l tablet 15:40: TID, 0 Refill(s) clorazepate 2020-0 Yes 7.5 mg = 1 Memoria 7.5 mg oral 8-11 tab, PO, l tablet 15:40: TID, 0 Refill(s) amLODIPine 0 Yes 5 mg = 1 Mem oria 5 mg oral 8-11 tab, PO, l tablet 15:39: Daily, # 00 30 tab, 0 Refill(s) amLODIPine 2020-0 Yes 5 mg = 1 Mem oria 5 mg oral 8-11 tab, PO, l tablet 15:39: Daily, # 30 tab, 0 Refill(s) amLODIPine 2020-0 Yes 5 mg = 1 Mem oria 5 mg oral 8-11 tab, PO, l tablet 15:39: Daily, # 30 tab, 0 Refill(s) amLODIPine 2020-0 Yes 5 mg = 1 Mem oria 5 mg oral 8-11 tab, PO, l tablet 15:39: Daily, # [place] 00 30 tab, 0 Refill(s) amLODIPine 0 Yes 5 mg = 1 Mem oria 5 mg oral 8-11 tab, PO, l tablet 15:39: Daily, # [place] 00 30 tab, 0 Refill(s) Omeprazole 0 Yes 20 mg, PO, M emoria 4-07 QAM, 0 l 19:40: Refill(s) Omeprazole 0 Yes 20 mg, PO, M emoria 407 QAM, 0 l 19:40: Refill(s) Omeprazole 0 Yes 20 mg, PO, M emoria 4-07 QAM, 0 l 19:40: Refill(s) Omeprazole 0 Yes 20 mg, PO, M emoria 4-07 QAM, 0 l 19:40: Refill(s) Omeprazole 0 Yes 20 mg, PO, M emoria 4-07 QAM, 0 l 19:40: Refill(s) Propranolol 0 Yes 10 mg = 1 M emoria 4-07 tab, PO, l 19:38: Daily, # [place] 00 100 tab, 0 Refill(s) Propranolol 2020-0 Yes 10 mg = 1 M emoria 4-07 tab, PO, l 19:38: Daily, # [place] 00 100 tab, 0 Refill(s) Propranolol 2020-0 Yes 10 mg = 1 M emoria 4-07 tab, PO, l 19:38: Daily, # [place] 00 100 tab, 0 Refill(s) Propranolol 2020-0 Yes 10 mg = 1 M emoria 4-07 tab, PO, l 19:38: Daily, # [place] 00 100 tab, 0 Refill(s) Propranolol 2020-0 Yes 10 mg = 1 M emoria 4-07 tab, PO, l 19:38: Daily, # [place] 00 100 tab, 0 Refill(s) tizanidine Yes 4 mg = 1 Mem oria 4 mg oral 3-05 tab, PO, l tablet 18:47: Bedtime, [place] 00 PRN for muscle spasm, # 30 tab, 2 Refill(s), Pharmacy: [facility] #[id number], 165.1, cm, 06/28/20 9:37:00 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, Height, 68.182, kg, 06/28/20 9:37:00 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, Weight tizanidine 2021-0 Yes 4 mg = 1 Mem oria 4 mg oral 3-05 tab, PO, l tablet 18:47: Bedtime, [place] 00 PRN for muscle spasm, # 30 tab, 2 Refill(s), Pharmacy: [facility] #[id number], 165.1, cm, 06/28/20 9:37:00 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, Height, 68.182, kg, 06/28/20 9:37:00 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, Weight tizanidine 2021-0 Yes 4 mg = 1 Mem oria 4 mg oral 3-05 tab, PO, l tablet 18:47: Bedtime, [place] 00 PRN for muscle spasm, # 30 tab, 2 Refill(s), Pharmacy: [facility] #[id number], 165.1, cm, 06/28/20 9:37:00 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, Height, 68.182, kg, 06/28/20 9:37:00 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, Weight tizanidine 2021-0 Yes 4 mg = 1 Mem oria 4 mg oral 3-05 tab, PO, l tablet 18:47: Bedtime, [place] 00 PRN for muscle spasm, # 30 tab, 2 Refill(s), Pharmacy: [facility] #[id number], 165.1, cm, 06/28/20 9:37:00 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, Height, 68.182, kg, 06/28/20 9:37:00 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, Weight tizanidine 2021-0 Yes 4 mg = 1 Mem oria 4 mg oral 3-05 tab, PO, l tablet 18:47: Bedtime, [place] 00 PRN for muscle spasm, # 30 tab, 2 Refill(s), Pharmacy: [facility] #[id number], 165.1, cm, 06/28/20 9:37:00 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, Height, 68.182, kg, 06/28/20 9:37:00 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, Weight primidone 2021-0 Yes 50 mg = 1 Mem oria 50 mg oral 2-26 tab, PO, l tablet 21:14: Bedtime, # Maria E nn 00 90 tab, 3 Refill(s), Pharmacy: [facility] #[id number], 165.1, cm, 06/28/20 9:37:00 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, Height, 68.182, kg, 06/28/20 9:37:00 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, Weight primidone 1-0 Yes 50 mg = 1 Mem oria 50 mg oral 2-26 tab, PO, l tablet 21:14: Bedtime, # Maria E nn 00 90 tab, 3 Refill(s), Pharmacy: [facility] #[id number], 165.1, cm, 06/28/20 9:37:00 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, Height, 68.182, kg, 06/28/20 9:37:00 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, Weight primidone 2020-0 Yes 50 mg = 1 Mem oria 50 mg oral 2-26 tab, PO, l tablet 21:14: Bedtime, # Maria E nn 00 90 tab, 3 Refill(s), Pharmacy: [facility] #[id number], 165.1, cm, 06/28/20 9:37:00 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, Height, 68.182, kg, 06/28/20 9:37:00 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, Weight primidone 2020-0 Yes 50 mg = 1 Mem oria 50 mg oral 2-26 tab, PO, l tablet 21:14: Bedtime, # Maria E nn 00 90 tab, 3 Refill(s), Pharmacy: [facility] #[id number], 165.1, cm, 06/28/20 9:37:00 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, Height, 68.182, kg, 06/28/20 9:37:00 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, Weight primidone 1-0 Yes 50 mg = 1 Mem oria 50 mg oral 2-26 tab, PO, l tablet 21:14: Bedtime, # Maria E nn 00 90 tab, 3 Refill(s), Pharmacy: [facility] #[id number], 165.1, cm, 06/28/20 9:37:00 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, Height, 68.182, kg, 06/28/20 9:37:00 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, Weight tizanidine 1-0 Yes 4 mg = 1 Mem oria 4 mg oral 2-26 tab, PO, l tablet 16:18: BID, PRN [place] 00 for muscle spasm, # 60 tab, 2 Refill(s), Pharmacy: [facility] #[id number], 165.1, cm, 06/28/20 9:37:00 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, Height, 68.182, kg, 06/28/20 9:37:00 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, Weight DULoxetine 0 Yes 30 mg = 1 Me moria 30 mg oral 2-26 cap, PO, l delayed 16:18: Daily, # [place] n release 00 30 cap, 3 capsule Refill(s), Pharmacy: [facility] #[id number], 165.1, cm, 06/28/20 9:37:00 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, Height, 68.182, kg, 06/28/20 9:37:00 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, Weight primidone 2020-0 No 50 mg = 1 Mem oria 50 mg oral 2-26 tab, PO, l tablet 16:18: Bedtime, X Maria E nn day, # 30 tab, 3 Refill(s), Pharmacy: [facility] #[id number], 165.1, cm, 06/28/20 9:37:00 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, Height, 68.182, kg, 06/28/20 9:37:00 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, Weight tizanidine 2020-0 Yes 4 mg = 1 Mem oria 4 mg oral 2-26 tab, PO, l tablet 16:18: BID, PRN [place] 00 for muscle spasm, # 60 tab, 2 Refill(s), Pharmacy: [facility] #[id number], 165.1, cm, 06/28/20 9:37:00 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, Height, 68.182, kg, 06/28/20 9:37:00 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, Weight DULoxetine 2020-0 Yes 30 mg = 1 Me moria 30 mg oral 2-26 cap, PO, l delayed 16:18: Daily, # [place] n release 00 30 cap, 3 capsule Refill(s), Pharmacy: [facility] #[id number], 165.1, cm, 06/28/20 9:37:00 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, Height, 68.182, kg, 06/28/20 9:37:00 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, Weight primidone 2020-0 No 50 mg = 1 Mem oria 50 mg oral 2-26 tab, PO, l tablet 16:18: Bedtime, X Maria E nn 30 day, # 30 tab, 3 Refill(s), Pharmacy: [facility] #[id number], 165.1, cm, 06/28/20 9:37:00 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, Height, 68.182, kg, 06/28/20 9:37:00 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, Weight tizanidine 1-0 Yes 4 mg = 1 Mem oria 4 mg oral 2-26 tab, PO, l tablet 16:18: BID, PRN [place] 00 for muscle spasm, # 60 tab, 2 Refill(s), Pharmacy: [facility] #[id number], 165.1, cm, 06/28/20 9:37:00 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, Height, 68.182, kg, 06/28/20 9:37:00 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, Weight DULoxetine 2020-0 Yes 30 mg = 1 Me moria 30 mg oral 2-26 cap, PO, l delayed 16:18: Daily, # [place] release 00 30 cap, 3 capsule Refill(s), Pharmacy: [facility] #[id number], 165.1, cm, 06/28/20 9:37:00 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, Height, 68.182, kg, 06/28/20 9:37:00 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, Weight primidone 1-0 No 50 mg = 1 Mem oria 50 mg oral 2-26 tab, PO, l tablet 16:18: Bedtime, X Maria E nn day, # 30 tab, 3 Refill(s), Pharmacy: [facility] #[id number], 165.1, cm, 06/28/20 9:37:00 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, Height, 68.182, kg, 06/28/20 9:37:00 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, Weight tizanidine 1-0 Yes 4 mg = 1 Mem oria 4 mg oral 2-26 tab, PO, l tablet 16:18: BID, PRN [place] 00 for muscle spasm, # 60 tab, 2 Refill(s), Pharmacy: [facility] #[id number], 165.1, cm, 06/28/20 9:37:00 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, Height, 68.182, kg, 06/28/20 9:37:00 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, Weight DULoxetine 1-0 Yes 30 mg = 1 Me moria 30 mg oral 2-26 cap, PO, l delayed 16:18: Daily, # [place] release 00 30 cap, 3 capsule Refill(s), Pharmacy: [facility] #[id number], 165.1, cm, 06/28/20 9:37:00 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, Height, 68.182, kg, 06/28/20 9:37:00 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, Weight primidone 0 No 50 mg = 1 Mem oria 50 mg oral 2-26 tab, PO, l tablet 16:18: Bedtime, X Maria E nn 30 day, # 30 tab, 3 Refill(s), Pharmacy: [facility] #[id number], 165.1, cm, 06/28/20 9:37:00 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, Height, 68.182, kg, 06/28/20 9:37:00 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, Weight tizanidine Yes 4 mg = 1 Mem oria 4 mg oral 2-26 tab, PO, l tablet 16:18: BID, PRN [place] 00 for muscle spasm, # 60 tab, 2 Refill(s), Pharmacy: [facility] #[id number], 165.1, cm, 06/28/20 9:37:00 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, Height, 68.182, kg, 06/28/20 9:37:00 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, Weight DULoxetine 0 Yes 30 mg = 1 Me moria 30 mg oral 2-26 cap, PO, l delayed 16:18: Daily, # [place] release 00 30 cap, 3 capsule Refill(s), Pharmacy: [facility] #[id number], 165.1, cm, 06/28/20 9:37:00 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, Height, 68.182, kg, 06/28/20 9:37:00 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, Weight primidone 0 No 50 mg = 1 Mem oria 50 mg oral 2-26 tab, PO, l tablet 16:18: Bedtime, X Maria E nn 30 day, # 30 tab, 3 Refill(s), Pharmacy: [facility] #[id number], 165.1, cm, 06/28/20 9:37:00 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, Height, 68.182, kg, 06/28/20 9:37:00 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, Weight pregabalin 0 Yes 100 mg = 1 M emoria 100 mg oral 2-26 cap, PO, l capsule 15:45: TID, # 90 Maria E nn 00 cap, 0 Refill(s) tizanidine 0 No 4 mg = 1 Mem oria 4 mg oral 2-26 tab, PO, l tablet 15:45: BID, PRN [place] 00 for muscle spasm, # 30 tab, 0 Refill(s) Acetaminoph 2020-0 No 2 cap, PO, Memoria en 300 MG / 2-26 Daily, PRN l butalbital 15:45: Pain, Do Her melendez 50 MG / 00 not exceed Caffeine 40 6 capsules MG Oral in 24 Capsule hours, # [Fioricet] 60 cap, 0 Refill(s) DULoxetine 0 No 30 mg = 1 Me moria 30 mg oral 2-26 cap, PO, l delayed 15:45: Daily, # [place] release 00 30 cap, 0 capsule Refill(s) pregabalin 2020-0 Yes 100 mg = 1 M emoria 100 mg oral 2-26 cap, PO, l capsule 15:45: TID, # 90 Maria E nn 00 cap, 0 Refill(s) tizanidine 0 No 4 mg = 1 Mem oria 4 mg oral 2-26 tab, PO, l tablet 15:45: BID, PRN [place] 00 for muscle spasm, # 30 tab, 0 Refill(s) Acetaminoph 2020-0 No 2 cap, PO, Memoria en 300 MG / 2-26 Daily, PRN l butalbital 15:45: Pain, Do Her melendez 50 MG / 00 not exceed Caffeine 40 6 capsules MG Oral in 24 Capsule hours, # [Fioricet] 60 cap, 0 Refill(s) DULoxetine 0 No 30 mg = 1 Me moria 30 mg oral 2-26 cap, PO, l delayed 15:45: Daily, # [place] release 00 30 cap, 0 capsule Refill(s) pregabalin 2020-0 Yes 100 mg = 1 M emoria 100 mg oral 2-26 cap, PO, l capsule 15:45: TID, # 90 Maria E nn 00 cap, 0 Refill(s) tizanidine 2020-0 No 4 mg = 1 Mem oria 4 mg oral 2-26 tab, PO, l tablet 15:45: BID, PRN [place] 00 for muscle spasm, # 30 tab, 0 Refill(s) Acetaminoph 0 No 2 cap, PO, Memoria en 300 MG / 2-26 Daily, PRN l butalbital 15:45: Pain, Do Her melendez 50 MG / 00 not exceed Caffeine 40 6 capsules MG Oral in 24 Capsule hours, # [Fioricet] 60 cap, 0 Refill(s) DULoxetine No 30 mg = 1 Me moria 30 mg oral 2-26 cap, PO, l delayed 15:45: Daily, # [place] release 00 30 cap, 0 capsule Refill(s) pregabalin Yes 100 mg = 1 M emoria 100 mg oral 2-26 cap, PO, l capsule 15:45: TID, # 90 Maria E nn 00 cap, 0 Refill(s) tizanidine No 4 mg = 1 Mem oria 4 mg oral 2-26 tab, PO, l tablet 15:45: BID, PRN [place] 00 for muscle spasm, # 30 tab, 0 Refill(s) Acetaminoph No 2 cap, PO, Memoria en 300 MG / 2-26 Daily, PRN l butalbital 15:45: Pain, Do Her melendez 50 MG / 00 not exceed Caffeine 40 6 capsules MG Oral in 24 Capsule hours, # [Fioricet] 60 cap, 0 Refill(s) DULoxetine No 30 mg = 1 Me moria 30 mg oral 2-26 cap, PO, l delayed 15:45: Daily, # Dwight n release 00 30 cap, 0 capsule Refill(s) tizanidine 0 No 4 mg = 1 Mem oria 4 mg oral 2-26 tab, PO, l tablet 15:45: BID, PRN Agus 00 for muscle spasm, # 30 tab, 0 Refill(s) Acetaminoph 0 No 2 cap, PO, Memoria en 300 MG / 2-26 Daily, PRN l butalbital 15:45: Pain, Do Her melendez 50 MG / 00 not exceed Caffeine 40 6 capsules MG Oral in 24 Capsule hours, # [Fioricet] 60 cap, 0 Refill(s) DULoxetine No 30 mg = 1 Me moria 30 mg oral 2-26 cap, PO, l delayed 15:45: Daily, # Dwight n release 00 30 cap, 0 capsule Refill(s) pregabalin Yes 100 mg = 1 M emoria 100 mg oral 2-26 cap, PO, l capsule 15:45: TID, 150 Dwight n 00 mg, # 90 cap, 0 Refill(s) remove No Notes: Memoria patch 7- Remove l 05:40: patch 12 Agus 00 hours after applicatio n each day. remove No Notes: Memoria patch 7- Remove l 05:40: patch 12 [place] 00 hours after applicatio n each day. remove No Notes: Memoria patch 7- Remove l 05:40: patch 12 [place] 00 hours after applicatio n each day. remove No Notes: Memoria patch 7- Remove l 05:40: patch 12 [place] 00 hours after applicatio n each day. remove No Notes: Memoria patch 7- Remove l 05:40: patch 12 [place] 00 hours after applicatio n each day. sennosides, No Notes: Abdiel leigh ann DETENTION 7- (Same as: l 02:00: Senokot) Agus sennosides, No Notes: Abdiel leigh ann DETENTION 7- (Same as: l 02:00: Senokot) [place] sennosides, No Notes: Abdiel leigh ann DETENTION 7-01 (Same as: l 02:00: Senokot) [place] sennosides, No Notes: Abdiel leigh ann DETENTION 7-01 (Same as: l 02:00: Senokot) Agus sennosides, No Notes: Abdiel leigh ann DETENTION 7-01 (Same as: l 02:00: Senokot) Agus 00 tramadol No Notes: Not Mem oria hydrochlori 6-30 to exceed l de 50 MG 19:00: 400mg/day. Her melendez Oral Tablet 00 (Same As: Ultram) tramadol No Notes: Not Mem oria hydrochlori 6-30 to exceed l de 50 MG 19:00: 400mg/day. Her melendez Oral Tablet 00 (Same As: Ultram) tramadol 2020-0 No Notes: Not Mem oria hydrochlori 6-30 to exceed l de 50 MG 19:00: 400mg/day. Her melendez Oral Tablet 00 (Same As: Ultram) tramadol 2020-0 No Notes: Not Mem oria hydrochlori 6-30 to exceed l de 50 MG 19:00: 400mg/day. Her melendez Oral Tablet 00 (Same As: Ultram) tramadol 2020-0 No Notes: Not Mem oria hydrochlori 6-30 to exceed l de 50 MG 19:00: 400mg/day. Her melendez Oral Tablet 00 (Same As: Ultram) {74 2020-0 Yes 5 mg = 1 Memoria (apixaban 5 6-30 tab, PO, l MG Oral 17:45: BID, # 60 Maria E nn Tablet 00 tab, 0 [Eliquis]) Refill(s), } Pack Pharmacy: [[facility] #[id number], Starter 167.64, Pack] cm, 10/31/19 2:23:00 CDT, Height, 79.091, kg, 10/31/19 2:23:00 CDT, Weight Lidocaine 2020-0 Yes 1 patch, Abdiel leigh ann Hydrochlori 6-30 TOP, l de 0.05 17:45: Daily, [place] MG/MG 00 Remove Transdermal after 12 Patch hours, # [Lidoderm] 30 patch, 0 Refill(s), Pharmacy: [facility] #[id number], 167.64, cm, 10/31/19 2:23:00 CDT, Height, 79.091, kg, 10/31/19 2:23:00 CDT, Weight {74 2020-0 Yes 5 mg = 1 Memoria (apixaban 5 6-30 tab, PO, l MG Oral 17:45: BID, # 60 Maria E nn Tablet 00 tab, 0 [Eliquis]) Refill(s), } Pack Pharmacy: [[facility] #[id number], Starter 167.64, Pack] cm, 10/31/19 2:23:00 CDT, Height, 79.091, kg, 10/31/19 2:23:00 CDT, Weight Lidocaine 2020-0 Yes 1 patch, Abdiel leigh ann Hydrochlori 6-30 TOP, l de 0.05 17:45: Daily, Agus MG/MG 00 Remove Transdermal after 12 Patch hours, # [Lidoderm] 30 patch, 0 Refill(s), Pharmacy: [facility] #[id number], 167.64, cm, 10/31/19 2:23:00 CDT, Height, 79.091, kg, 10/31/19 2:23:00 CDT, Weight {74 2020-0 Yes 5 mg = 1 Memoria (apixaban 5 6-30 tab, PO, l MG Oral 17:45: BID, # 60 Maria E nn Tablet 00 tab, 0 [Eliquis]) Refill(s), } Pack Pharmacy: [[facility] cy #[id number], Starter 167.64, Pack] cm, 10/31/19 2:23:00 CDT, Height, 79.091, kg, 10/31/19 2:23:00 CDT, Weight Lidocaine 2020-0 Yes 1 patch, Abdiel leigh ann Hydrochlori 6-30 TOP, l de 0.05 17:45: Daily, [place] MG/MG 00 Remove Transdermal after 12 Patch hours, # [Lidoderm] 30 patch, 0 Refill(s), Pharmacy: [facility] cy #[id number], 167.64, cm, 10/31/19 2:23:00 CDT, Height, 79.091, kg, 10/31/19 2:23:00 CDT, Weight Lidocaine 2020-0 Yes 1 patch, Abdiel leigh ann Hydrochlori 6-30 TOP, l de 0.05 17:45: Daily, [place] MG/MG 00 Remove Transdermal after 12 Patch hours, # [Lidoderm] 30 patch, 0 Refill(s), Pharmacy: [facility] #[id number], 167.64, cm, 10/31/19 2:23:00 CDT, Height, 79.091, kg, 10/31/19 2:23:00 CDT, Weight {74 2020-0 Yes 5 mg = 1 Memoria (apixaban 5 6-30 tab, PO, l MG Oral 17:45: BID, # 60 Maria E nn Tablet 00 tab, 0 [Eliquis]) Refill(s), } Pack Pharmacy: [[facility] #[id number], Starter 167.64, Pack] cm, 10/31/19 2:23:00 CDT, Height, 79.091, kg, 10/31/19 2:23:00 CDT, Weight Lidocaine 2020-0 Yes 1 patch, Abdiel leigh ann Hydrochlori 6-30 TOP, l de 0.05 17:45: Daily, [place] MG/MG 00 Remove Transdermal after 12 Patch hours, # [Lidoderm] 30 patch, 0 Refill(s), Pharmacy: [facility] cy #[id number], 167.64, cm, 10/31/19 2:23:00 CDT, Height, 79.091, kg, 10/31/19 2:23:00 CDT, Weight {74 2020-0 Yes 5 mg = 1 Memoria (apixaban [...] patch before applicatio n of new patch" Lidocaine 0 No Notes: Memori a Hydrochlori 6-30 Apply only l de 0.05 17:40: once for [place] MG/MG 00 up to 12 Transdermal hours in a Patch 24-hour [Lidoderm] period (12 hours on and 12 hours off). (Same as: Lidoderm) "Remove old patch before applicatio n of new patch" Lidocaine 2020-0 No Notes: Memori a Hydrochlori 6-30 Apply only l de 0.05 17:40: once for [place] MG/MG 00 up to 12 Transdermal hours in a Patch 24-hour [Lidoderm] period (12 hours on and 12 hours off). (Same as: Lidoderm) "Remove old patch before applicatio n of new patch" Lidocaine 2020-0 No Notes: Memori a Hydrochlori 6-30 Apply only l de 0.05 17:40: once for [place] MG/MG 00 up to 12 Transdermal hours in a Patch 24-hour [Lidoderm] period (12 hours on and 12 hours off). (Same as: Lidoderm) "Remove old patch before applicatio n of new patch" Lidocaine 2020-0 No Notes: Memori a Hydrochlori [...] 0 de 10 MG Refill(s) Oral Tablet clorazepate 2020-0 Yes 7.5 mg = 1 [...] 0 de 10 MG Refill(s) Oral Tablet clorazepate 2020-0 Yes 7.5 mg = 1 [...] 0 de 10 MG Refill(s) Oral Tablet clorazepate 2020-0 Yes 7.5 mg = 1 [...] 0 de 10 MG Refill(s) Oral Tablet clorazepate 2020-0 Yes 7.5 mg = 1 [...] de 10 MG Refill(s) Oral Tablet POLYETHYLEN 2020-0 No Notes: Abdiel leigh ann E GLYCOL [...] ia 6-30 (Same as: l 14:00: Lyrica) [place] 00 quinapril 2020-0 No 20 mg, 1 Abdiel leigh ann 6-30 tab, l 14:00: Route: PO, [place] 00 Drug form: TAB, Daily, Dosing Weight 83.636, kg, Start date: 10/31/19 9:00:00 CDT, Duration: 30 day, Stop date: 11/29/19 9:00:00 CDT Protonix 2020-0 No Notes: [facility]oria 6-30 Tablet l 14:00: should not [place] 00 be chewed or crushed. (Same as: Protonix) POLYETHYLEN 2020-0 No Notes: Abdiel leigh ann E GLYCOL 6-30 Dissolve l 3350 14:00: in 8 oz of [place] 00 water or juice. (Same as: Miralax) Aspirin 81 2020-0 No Notes: Do Me moria MG Enteric 6-30 not crush l Coated 14:00: or chew. [place] 00 (Same As: Ecotrin) Prilosec 2020-0 No 20 mg, Memoria 6-30 Route: PO, l 14:00: Daily, [place] 00 Dosing Weight 83.636, kg, Start date: 10/31/19 9:00:00 CDT, Duration: 30 day, Stop date: 11/29/19 9:00:00 CDT pregabalin 2020-0 No Notes: Memor ia 6-30 (Same as: l 14:00: Lyrica) quinapril 2020-0 No 20 mg, 1 Abdiel leigh ann 6-30 tab, l 14:00: Route: PO, [place] 00 Drug form: TAB, Daily, Dosing Weight 83.636, kg, Start date: 10/31/19 9:00:00 CDT, Duration: 30 day, Stop date: 11/29/19 9:00:00 CDT Protonix 2020-0 No Notes: [facility] 6-30 Tablet l 14:00: should not [place] 00 be chewed or crushed. (Same as: Protonix) POLYETHYLEN 2020-0 No Notes: Abdiel leigh ann E GLYCOL 6-30 Dissolve l 3350 14:00: in 8 oz of [place] 00 water or juice. (Same as: Miralax) [...] ann 6-30 tab, l 14:00: Route: PO, [place] 00 Drug form: TAB, Daily, Dosing Weight 83.636, kg, Start date: 10/31/19 9:00:00 CDT, Duration: 30 day, Stop date: 11/29/19 9:00:00 CDT Protonix 2019-0 No Notes: [facility] 6-30 Tablet l 14:00: should not [place] 00 be chewed or crushed. (Same as: Protonix) POLYETHYLEN 2019-0 No Notes: Abdiel leigh ann [...] as: l 14:00: Lyrica) [place] 00 quinapril 2019-0 No 20 mg, 1 Abdiel leigh ann 6-30 tab, l 14:00: Route: PO, [place] 00 Drug form: TAB, Daily, Dosing Weight 83.636, kg, Start date: 10/31/19 9:00:00 CDT, Duration: 30 day, Stop date: 11/29/19 9:00:00 CDT Protonix 2019-0 No Notes: [facility] 6-30 Tablet l 14:00: should not [place] 00 be chewed or crushed. (Same as: Protonix) POLYETHYLEN 2019-0 No Notes: Abdiel leigh ann E GLYCOL 6-30 Dissolve l 3350 14:00: in 8 oz of [place] 00 water or juice. (Same as: Miralax) Aspirin 81 2019-0 No Notes: Do Me moria MG Enteric 6-30 not crush l Coated 14:00: or chew. [place] Tablet 00 (Same As: Ecotrin) Prilosec 2019-0 No 20 mg, [facility] 6-30 Route: PO, l 14:00: Daily, [place] Dosing Weight 83.636, kg, Start date: 10/31/19 9:00:00 CDT, Duration: 30 day, Stop date: 11/29/19 9:00:00 CDT pregabalin 2019-0 No Notes: Memor ia 6-30 (Same as: l 14:00: Lyrica) quinapril 2019-0 No 20 mg, 1 Abdiel leigh ann 6-30 tab, l 14:00: Route: PO, [place] 00 Drug form: TAB, Daily, Dosing Weight 83.636, kg, Start date: 10/31/19 9:00:00 CDT, Duration: 30 day, Stop date: 11/29/19 9:00:00 CDT Protonix 2019-0 No Notes: [facility] 6-30 Tablet l 14:00: should not [place] 00 be chewed or crushed. (Same as: Protonix) Acetaminoph 2019-0 No Notes: Badiel leigh ann en 325 MG / 6-30 (Same as: l Hydrocodone 08:17: [place] Maria E nn Bitartrate 00 325/5) Do 5 MG Oral not exceed Tablet 4gm/day of [[place] acetaminop 5/325] hen. Acetaminoph 0 No Notes: Abdiel leigh ann en 325 MG / 6-30 (Same as: l Hydrocodone 08:17: [place] Maria E nn Bitartrate 00 325/5) Do 5 MG Oral not exceed Tablet 4gm/day of [[place] acetaminop 5/325] hen. Acetaminoph No Notes: Abdiel leigh ann en 325 MG / 630 (Same as: l Hydrocodone 08:17: [place] Maria E nn Bitartrate 00 325/5) Do 5 MG Oral not exceed Tablet 4gm/day of [[place] acetaminop 5/325] hen. Acetaminoph No Notes: Abdiel liegh ann en 325 MG / 630 (Same as: l Hydrocodone 08:17: [place] Maria E nn Bitartrate 00 325/5) Do 5 MG Oral not exceed Tablet 4gm/day of [[place] acetaminop 5/325] hen. Acetaminoph 0 No Notes: Abdiel leigh ann en 325 MG / 30 (Same as: l Hydrocodone 08:17: [place] Maria E nn Bitartrate 00 325/5) Do 5 MG Oral not exceed Tablet 4gm/day of [[place] acetaminop 5/325] hen. Hydromorpho No Notes: Abdiel leigh ann ne 6-30 Same as l 08:16: Dilaudid [place] 00 Hydromorpho No Notes: Abdiel leigh ann ne 6-30 Same as l 08:16: Dilaudid [place] 00 Hydromorpho No Notes: Abdiel leigh ann ne 6-30 Same as l 08:16: Dilaudid [place] 00 Hydromorpho 2019- No Notes: Abdiel leigh ann ne 6-30 Same as l 08:16: Dilaudid [place] 00 Hydromorpho 2019- No Notes: Abdiel leigh ann ne 6-30 Same as l 08:16: Dilaudid [place] 00 Heparin 80 No Route: Memor ia unit/kg 6-30 IVP, PRN, l Bolus 07:25: 5,400 [place] (Heparin 00 unit, 5.4 Dosing mL, Drug Weight) form: INJ, PRN, Heparin Protocol, Start date: 10/31/19 2:25:00 CDT Stop date: 11/30/19 2:24:00 CDT, 30 day, 0 Heparin 40 2020-0 No Route: Memor ia unit/kg 6-30 IVP, PRN, l Bolus 07:25: 2,700 [place] (Heparin 00 unit, 2.7 Dosing mL, Drug Weight) form: INJ, PRN, Heparin Protocol, Start date: 10/31/19 2:25:00 CDT Stop date: 11/30/19 2:24:00 CDT, 30 day, 0 heparin 2020-0 No Notes: Memoria additive 6-30 Total l 25,000 unit 07:25: Concentrat [place] [18 00 ion = 50 unit/kg/hr] unit/ ml + Premix Total Diluent volume = Sodium 500 ml Chloride Send Med 0.45% 500 Request 2 mL hours prior to next bag Heparin 80 2020-0 No Route: Memor ia unit/kg 6-30 IVP, PRN, l Bolus 07:25: 5,400 [place] (Heparin 00 unit, 5.4 Dosing mL, Drug Weight) form: INJ, PRN, Heparin Protocol, Start date: 10/31/19 2:25:00 CDT Stop date: 11/30/19 2:24:00 CDT, 30 day, 0 Heparin 40 2020-0 No Route: Memor ia unit/kg 6-30 IVP, PRN, l Bolus 07:25: 2,700 [place] (Heparin 00 unit, 2.7 Dosing mL, Drug Weight) form: INJ, PRN, Heparin Protocol, Start date: 10/31/19 2:25:00 CDT Stop date: 11/30/19 2:24:00 CDT, 30 day, 0 heparin 2020-0 No Notes: [facility] additive 6-30 Total l 25,000 unit 07:25: Concentrat [place] [18 00 ion = 50 unit/kg/hr] unit/ ml + Premix Total Diluent volume = Sodium 500 ml Chloride Send Med 0.45% 500 Request 2 mL hours prior to next bag Heparin 80 2020-0 No Route: Memor ia unit/kg 6-30 IVP, PRN, l Bolus 07:25: 5,400 [place] (Heparin 00 unit, 5.4 Dosing mL, Drug Weight) form: INJ, PRN, Heparin Protocol, Start date: 10/31/19 2:25:00 CDT Stop date: 11/30/19 2:24:00 CDT, 30 day, 0 Heparin 40 2020-0 No Route: Memor ia unit/kg 6-30 IVP, PRN, l Bolus 07:25: 2,700 [place] (Heparin 00 unit, 2.7 Dosing mL, Drug Weight) form: INJ, PRN, Heparin Protocol, Start date: 10/31/19 2:25:00 CDT Stop date: 11/30/19 2:24:00 CDT, 30 day, 0 heparin 2020-0 No Notes: [facility] additive 6-30 Total l 25,000 unit 07:25: Concentrat [place] [18 00 ion = 50 unit/kg/hr] unit/ ml + Premix Total Diluent volume = Sodium 500 ml Chloride Send Med 0.45% 500 Request 2 mL hours prior to next bag Heparin 80 2020-0 No Route: Memor ia unit/kg 6-30 IVP, PRN, l Bolus 07:25: 5,400 [place] (Heparin 00 unit, 5.4 Dosing mL, Drug Weight) form: INJ, PRN, Heparin Protocol, Start date: 10/31/19 2:25:00 CDT Stop date: 11/30/19 2:24:00 CDT, 30 day, 0 Heparin 40 2020-0 No Route: Memor ia unit/kg 6-30 IVP, PRN, l Bolus 07:25: 2,700 [place] (Heparin 00 unit, 2.7 Dosing mL, Drug Weight) form: INJ, PRN, Heparin Protocol, Start date: 10/31/19 2:25:00 CDT Stop date: 11/30/19 2:24:00 CDT, 30 day, 0 heparin 2020-0 No Notes: [facility]oria additive 6-30 Total l 25,000 unit 07:25: Concentrat [place] [18 00 ion = 50 unit/kg/hr] unit/ ml + Premix Total Diluent volume = Sodium 500 ml Chloride Send Med 0.45% 500 Request 2 mL hours prior to next bag Heparin 80 2020-0 No Route: Memor ia unit/kg 6-30 IVP, PRN, l Bolus 07:25: 5,400 [place] (Heparin 00 unit, 5.4 Dosing mL, Drug Weight) form: INJ, PRN, Heparin Protocol, Start date: 10/31/19 2:25:00 CDT Stop date: 11/30/19 2:24:00 CDT, 30 day, 0 Heparin 40 2019-0 No Route: Memor ia unit/kg 6-30 IVP, PRN, l Bolus 07:25: 2,700 [place] (Heparin 00 unit, 2.7 Dosing mL, Drug Weight) form: INJ, PRN, Heparin Protocol, Start date: 10/31/19 2:25:00 CDT Stop date: 11/30/19 2:24:00 CDT, 30 day, 0 heparin 2019- No Notes: [facility] additive 6-30 Total l 25,000 unit 07:25: Concentrat [place] [18 00 ion = 50 unit/kg/hr] unit/ ml + Premix Total Diluent volume = Sodium 500 ml Chloride Send Med 0.45% 500 Request 2 mL hours prior to next bag Acetaminoph No Notes: Do M emoria en 325 MG / 6-30 not exceed l Hydrocodone 07:17: 4gm/day of [place] Bitartrate 00 acetaminop 10 MG Oral hen. (Same Tablet as: [place] 325/10) clorazepate No Notes: Abdiel leigh ann 6-30 (Same As: l 07:17: Tranxene-T [place] ) tizanidine 0 No Notes: Memor ia 6-30 (Same As: l 07:17: Zanaflex) [place] 00 Acetaminoph 0 No Notes: Do M emoria en 325 MG / 6-30 not exceed l Hydrocodone 07:17: 4gm/day of [place] Bitartrate 00 acetaminop 10 MG Oral hen. (Same Tablet as: [place] 325/10) clorazepate 0 No Notes: Abdiel leigh ann 6-30 (Same As: l 07:17: Tranxene-T [place] 00 ) tizanidine 0 No Notes: Memor ia 6-30 (Same As: l 07:17: Zanaflex) [place] 00 Acetaminoph 2020-0 No Notes: Do M emoria en 325 MG / 6-30 not exceed l Hydrocodone 07:17: 4gm/day of [place] Bitartrate 00 acetaminop 10 MG Oral hen. (Same Tablet as: [place] 325/10) clorazepate 0 No Notes: Abdiel leigh ann 6-30 (Same As: l 07:17: Tranxene-T [place] ) tizanidine No Notes: Memor ia 6-30 (Same As: l 07:17: Zanaflex) [place] Acetaminoph No Notes: Do M emoria en 325 MG / 6-30 not exceed l Hydrocodone 07:17: 4gm/day of [place] Bitartrate 00 acetaminop 10 MG Oral hen. (Same Tablet as: [place] 325/10) clorazepate No Notes: Abdiel leigh ann 6-30 (Same As: l 07:17: Tranxene-T [place] ) tizanidine No Notes: Memor ia 6-30 (Same As: l 07:17: Zanaflex) [place] Acetaminoph No Notes: Do M emoria en 325 MG / 6-30 not exceed l Hydrocodone 07:17: 4gm/day of [place] Bitartrate 00 acetaminop 10 MG Oral hen. (Same Tablet as: [place] 325/10) clorazepate No Notes: Abdiel leigh ann 6-30 (Same As: l 07:17: Tranxene-T [place] ) tizanidine No Notes: Memor ia 6-30 (Same As: l 07:17: Zanaflex) [place] pregabalin 2019-0 Yes 100 mg = 1 M emoria 100 mg oral 6-30 cap, PO, l capsule 07:11: QID, # 90 Maria E nn 00 cap, 0 Refill(s) tizanidine 2019-0 No 4 mg = 1 Mem oria 4 mg oral 6-30 tab, PO, l tablet 07:11: Q8H, PRN [place] 00 for muscle spasms, # 90 tab, 0 Refill(s) clorazepate No 7.5 mg = 1 [facility] 7.5 mg oral 6-30 tab, PO, l tablet 07:11: TID, PRN [place] 00 Anxiety, 0 Refill(s) linaclotide 2020-0 Yes 145 Memori a 0.145 MG 6-30 microgram l Oral 07:11: = 1 cap, [place] Capsule 00 PO, Daily, [Linzess] 30 minutes prior to the first meal of the day, # 30 cap, 0 Refill(s) pregabalin 2020-0 Yes 100 mg = 1 M emoria 100 mg oral 6-30 cap, PO, l capsule 07:11: QID, # 90 Amria E nn 00 cap, 0 Refill(s) tizanidine 2020-0 No 4 mg = 1 Mem oria 4 mg oral 6-30 tab, PO, l tablet 07:11: Q8H, PRN [place] 00 for muscle spasms, # 90 tab, 0 Refill(s) clorazepate 2020-0 No 7.5 mg = 1 [facility] 7.5 mg oral 6-30 tab, PO, l tablet 07:11: TID, PRN [place] 00 Anxiety, 0 Refill(s) linaclotide 2020-0 Yes 145 Memori a 0.145 MG 6-30 microgram l Oral 07:11: = 1 cap, [place] Capsule 00 PO, Daily, [Linzess] 30 minutes prior to the first meal of the day, # 30 cap, 0 Refill(s) pregabalin 2020-0 Yes 100 mg = 1 M emoria 100 mg oral 6-30 cap, PO, l capsule 07:11: QID, # 90 Maria E nn 00 cap, 0 Refill(s) tizanidine 2020-0 No 4 mg = 1 Mem oria 4 mg oral 6-30 tab, PO, l tablet 07:11: Q8H, PRN [place] 00 for muscle spasms, # 90 tab, 0 Refill(s) clorazepate 2020-0 No 7.5 mg = 1 [facility] 7.5 mg oral 6-30 tab, PO, l tablet 07:11: TID, PRN [place] 00 Anxiety, 0 Refill(s) linaclotide 2020-0 Yes 145 Memori a 0.145 MG 6-30 microgram l Oral 07:11: = 1 cap, [place] Capsule 00 PO, Daily, [Linzess] 30 minutes prior to the first meal of the day, # 30 cap, 0 Refill(s) pregabalin 2020-0 Yes 100 mg = 1 M emoria 100 mg oral 6-30 cap, PO, l capsule 07:11: QID, # 90 Maria E nn 00 cap, 0 Refill(s) tizanidine 2020-0 No 4 mg = 1 Mem oria 4 mg oral 6-30 tab, PO, l tablet 07:11: Q8H, PRN [place] 00 for muscle spasms, # 90 tab, 0 Refill(s) clorazepate 2020-0 No 7.5 mg = 1 [facility] 7.5 mg oral 6-30 tab, PO, l tablet 07:11: TID, PRN [place] 00 Anxiety, 0 Refill(s) linaclotide 2020-0 Yes 145 Memori a 0.145 MG 6-30 microgram l Oral 07:11: = 1 cap, [place] Capsule 00 PO, Daily, [Linzess] 30 minutes prior to the first meal of the day, # 30 cap, 0 Refill(s) pregabalin 2020-0 Yes 100 mg = 1 [...] tab, PO, l tablet 07:11: TID, PRN [place] 00 Anxiety, 0 Refill(s) linaclotide 2020-0 Yes 145 Memori a 0.145 MG 6-30 microgram l Oral 07:11: = 1 cap, [place] Capsule 00 PO, Daily, [Linzess] 30 minutes [...] 0 Glucagon 2020-0 No 1 mg, [facility] -30 Route: IM, l 07:06: Drug form: [place] 00 PDR/INJ, PRN, Dosing Weight 83.636, kg, PRN Blood Glucose Results, Start date: 10/31/19 2:06:00 CDT, Duration: 30 day, Stop date: 11/30/19 2:05:00 CDT, 0 Ondansetron 2020-0 No Notes: Adbiel leigh ann 6-30 (Same as: l 07:06: Zofran) MEDICATION WASTE Product Size: 4 mg Product Wasted: ___ mg Melatonin 2020-0 No Notes: Memori a 6-30 (Same as: l 07:06: Melatonin) Dextrose 2020-0 No 12.5 gm, Memor ia 50% Syringe 10-30 25 mL, l (D50W) 07:06: Route: IVP, Drug Form: INJ, Dosing Weight 83.636, kg, PRN, PRN Blood Glucose Results, Start date: 10/31/19 2:06:00 CDT, Duration: 30 day, Stop date: 11/30/19 2:05:00 CDT, 0 Glucagon 2020-0 No 1 mg, [facility] -30 Route: IM, l 07:06: Drug form: PDR/INJ, [...] a 6-30 (Same as: l 07:06: Melatonin) Dextrose 2020-0 No 12.5 gm, Memor ia 50% Syringe 6-30 25 mL, l (D50W) 07:06: Route: [place] 00 IVP, Drug Form: INJ, Dosing Weight 83.636, kg, PRN, PRN Blood Glucose Results, Start date: 10/31/19 2:06:00 CDT, Duration: 30 day, Stop date: 11/30/19 2:05:00 CDT, 0 Glucagon 2020-0 No 1 mg, [facility] 6-30 Route: IM, l 07:06: Drug form: [place] 00 PDR/INJ, PRN, Dosing Weight 83.636, kg, PRN Blood Glucose Results, Start date: 10/31/19 2:06:00 CDT, Duration: 30 day, Stop date: 11/30/19 2:05:00 CDT, 0 Ondansetron 2020-0 No Notes: Abdiel leigh ann 6-30 (Same as: l 07:06: Zofrwyatt) [place] MEDICATION WASTE Product Size: 4 mg Product Wasted: ___ mg Melatonin 2020-0 No Notes: Memori a 6-30 (Same as: l 07:06: Melatonin) Dextrose 2020-0 No 12.5 gm, Memor ia 50% Syringe 6-30 25 mL, l (D50W) 07:06: Route: [place] 00 IVP, Drug Form: INJ, Dosing Weight 83.636, kg, PRN, PRN Blood Glucose Results, Start date: 10/31/19 2:06:00 CDT, Duration: 30 day, Stop date: 11/30/19 2:05:00 CDT, 0 Glucagon 2020-0 No 1 mg, [facility] 6-30 Route: IM, l 07:06: Drug form: [place] 00 PDR/INJ, PRN, Dosing Weight 83.636, kg, PRN Blood Glucose Results, Start date: 10/31/19 2:06:00 CDT, Duration: 30 day, Stop date: 11/30/19 2:05:00 CDT, 0 Ondansetron 2020-0 No Notes: Abdiel leigh ann 6-30 (Same as: l 07:06: Zofran) [place] MEDICATION WASTE Product Size: 4 mg Product Wasted: ___ mg Melatonin 2020-0 No Notes: Memori a -30 (Same as: l 07:06: Melatonin) Dextrose 2020-0 No 12.5 gm, Memor ia 50% Syringe 10-30 25 mL, l (D50W) 07:06: Route: IVP, Drug Form: INJ, Dosing Weight 83.636, kg, PRN, PRN Blood Glucose Results, Start date: 10/31/19 2:06:00 CDT, Duration: 30 day, Stop date: 11/30/19 2:05:00 CDT, 0 Glucagon 2019-0 No 1 mg, [facility] 10-30 Route: IM, l 07:06: Drug form: PDR/INJ, PRN, Dosing Weight 83.636, kg, PRN Blood Glucose Results, Start date: 10/31/19 2:06:00 CDT, Duration: 30 day, Stop date: 11/30/19 2:05:00 CDT, 0 Ondansetron No Notes: Abdiel leigh ann 10-30 (Same as: l 07:06: Zofran) MEDICATION WASTE Product Size: 4 mg Product Wasted: ___ mg Melatonin 2020-0 No Notes: Memori a 6-30 (Same as: l 07:06: Melatonin) Aspirin 81 2020-0 Yes 81 mg = 1 Me moria MG Enteric 1-03 tab, PO, l Coated 17:17: Daily, # [place] Tablet 00 90 tab, 3 Refill(s) Aspirin 81 2020-0 Yes 81 mg = 1 Me moria MG Enteric 1-03 tab, PO, l Coated 17:17: Daily, # [place] Tablet 00 90 tab, 3 Refill(s) Aspirin 81 2020-0 Yes 81 mg = 1 Me moria MG Enteric 1-03 tab, PO, l Coated 17:17: Daily, # [place] Tablet 00 90 tab, 3 Refill(s) Aspirin 81 2020-0 Yes 81 mg = 1 Me moria MG Enteric 1-03 tab, PO, l Coated 17:17: Daily, # [place] Tablet 00 90 tab, 3 Refill(s) Aspirin 81 2020-0 Yes 81 mg = 1 Me moria MG Enteric 1-03 tab, PO, l Coated 17:17: Daily, # [place] Tablet 00 90 tab, 3 Refill(s) cefdinir 2020-0 Yes 300 mg = 1 Mem oria 300 MG Oral 1-03 cap, PO, l Capsule 16:58: BID, # 20 Maria E nn 00 cap, 0 Refill(s) cefdinir 2020-0 Yes 300 mg = 1 Mem oria 300 MG Oral 1-03 cap, PO, l Capsule 16:58: BID, # 20 Maria E nn 00 cap, 0 Refill(s) cefdinir 2020-0 Yes 300 mg = 1 Mem o[facility] 300 MG Oral 1-03 cap, PO, l Capsule 16:58: BID, # 20 Maria E nn 00 cap, 0 Refill(s) cefdinir 2020-0 Yes 300 mg = 1 Mem o[facility] 300 MG Oral 1-03 cap, PO, l Capsule 16:58: BID, # 20 Maria E nn 00 cap, 0 Refill(s) cefdinir 2020-0 Yes 300 mg = 1 Mem oria 300 MG Oral 1-03 cap, PO, l Capsule 16:58: BID, # 20 Maria E nn 00 cap, 0 Refill(s) Estrogens, 0 Yes 0.3 mg = 1 M emoria Conjugated 8-22 tab, PO, l (DETENTION) 0.3 13:52: Daily, # Herm emmett MG Oral 00 30 tab, 0 Tablet Refill(s) [Premarin] Acetaminoph 0 Yes 1 tab, PO, Memoria en 325 MG / 8-22 Q6H, 0 l Hydrocodone 13:52: Refill(s) [place] Bitartrate 00 10 MG Oral Tablet Estrogens, 0 Yes 0.3 mg = 1 M emoria Conjugated 8-22 tab, PO, l (DETENTION) 0.3 13:52: Daily, # Herm emmett MG Oral 00 30 tab, 0 Tablet Refill(s) [Premarin] Acetaminoph 0 Yes 1 tab, PO, Memoria en 325 MG / 8-22 Q6H, 0 l Hydrocodone 13:52: Refill(s) [place] Bitartrate 00 10 MG Oral Tablet Estrogens, 0 Yes 0.3 mg = 1 M emoria Conjugated 8-22 tab, PO, l (DETENTION) 0.3 13:52: Daily, # Herm emmett MG Oral 00 30 tab, 0 Tablet Refill(s) [Premarin] Acetaminoph Yes 1 tab, PO, Memoria en 325 MG / 8-22 Q6H, 0 l Hydrocodone 13:52: Refill(s) [place] Bitartrate 00 10 MG Oral Tablet Estrogens, Yes 0.3 mg = 1 M emoria Conjugated 8-22 tab, PO, l (DETENTION) 0.3 13:52: Daily, # Herm emmett MG Oral 00 30 tab, 0 Tablet Refill(s) [Premarin] Acetaminoph Yes 1 tab, PO, Memoria en 325 MG / 8-22 Q6H, 0 l Hydrocodone 13:52: Refill(s) [place] Bitartrate 00 10 MG Oral Tablet Estrogens, Yes 0.3 mg = 1 M emoria Conjugated 8-22 tab, PO, l (DETENTION) 0.3 13:52: Daily, # Herm emmett MG Oral 00 30 tab, 0 Tablet Refill(s) [Premarin] Acetaminoph Yes 1 tab, PO, Memoria en 325 MG / 8-22 Q6H, 0 l Hydrocodone 13:52: Refill(s) [place] Bitartrate 00 10 MG Oral Tablet [place] Yes BUC, Q12H, Abdiel leigha nn 6-19 0 l 16:41: Refill(s) [place] Buprenorphi Yes 150 Memori a ne 0.15 MG 6-19 microgram l Buccal Film 16:41: = 1 ea, Her melendez [[place]] 00 BUC, BID, 0 Refill(s) [place] 0 Yes BUC, Q12H, Abdiel leigh ann 6-19 0 l 16:41: Refill(s) [place] Buprenorphi Yes 150 Memori a ne 0.15 MG 6-19 microgram l Buccal Film 16:41: = 1 ea, Her melendez [[place]] 00 BUC, BID, 0 Refill(s) [place] Yes BUC, Q12H, Abdiel leigh ann 6-19 0 l 16:41: Refill(s) [place] Buprenorphi 2019-0 Yes 150 Memori a ne 0.15 MG 6-19 microgram l Buccal Film 16:41: = 1 ea, Her melendez [[place]] 00 BUC, BID, 0 Refill(s) [place] 2019-0 Yes BUC, Q12H, Abdiel leigh ann 6-19 0 l 16:41: Refill(s) [place] Buprenor[place] 2019-0 Yes 150 Memori a ne 0.15 MG 6-19 microgram l Buccal Film 16:41: = 1 ea, Her melendez [[place]] 00 BUC, BID, 0 Refill(s) [place] 2019-0 Yes BUC, Q12H, Abdiel leigh ann 6-19 0 l 16:41: Refill(s) [place] Buprenor[place] 2019-0 Yes 150 Memori a ne 0.15 MG 6-19 microgram l Buccal Film 16:41: = 1 ea, Her melendez [[place]] 00 BUC, BID, 0 Refill(s) amitriptyli 2019-0 Yes 20 mg = 2 M emoria ne 10 mg 4-18 tab, PO, l oral tablet 15:16: Bedtime, # [place] 24 180 tab, 3 Refill(s), Pharmacy: [id number] amitriptyli 2019-0 Yes 20 mg = 2 M emoria ne 10 mg 4-18 tab, PO, l oral tablet 15:16: Bedtime, # [place] 24 180 tab, 3 Refill(s), Pharmacy: [id number] amitriptyli 2019-0 Yes 20 mg = 2 M emoria ne 10 mg 4-18 tab, PO, l oral tablet 15:16: Bedtime, # [place] 24 180 tab, 3 Refill(s), Pharmacy: [id number] amitriptyli 2019-0 Yes 20 mg = 2 M emoria ne 10 mg 4-18 tab, PO, l oral tablet 15:16: Bedtime, # [place] 24 180 tab, 3 Refill(s), Pharmacy: [id number] amitriptyli 2019-0 Yes 20 mg = 2 M emoria ne 10 mg 4-18 tab, PO, l oral tablet 15:16: Bedtime, # [place] 24 180 tab, 3 Refill(s), Pharmacy: [id number] Acetaminoph Yes 1 tab, PO, Memoria en 300 MG / 1-05 TID, PRN l Codeine 03:39: Pain, X 4 Maria E nn Phosphate 00 day, # 12 30 MG Oral tab, 0 Tablet Refill(s) [Tylenol with Codeine #3] Acetaminoph Yes 1 tab, PO, Memoria en 300 MG / 1-05 TID, PRN l Codeine 03:39: Pain, X 4 Maria E nn Phosphate 00 day, # 12 30 MG Oral tab, 0 Tablet Refill(s) [Tylenol with Codeine #3] Acetaminoph Yes 1 tab, PO, Memoria en 300 MG / 1-05 TID, PRN l Codeine 03:39: Pain, X 4 Maria E nn Phosphate 00 day, # 12 30 MG Oral tab, 0 Tablet Refill(s) [Tylenol with Codeine #3] Acetaminoph Yes 1 tab, PO, Memoria en 300 MG / 1-05 TID, PRN l Codeine 03:39: Pain, X 4 Maria E nn Phosphate 00 day, # 12 30 MG Oral tab, 0 Tablet Refill(s) [Tylenol with Codeine #3] Acetaminoph Yes 1 tab, PO, Memoria en 300 MG / 1-05 TID, PRN l Codeine 03:39: Pain, X 4 Maria E nn Phosphate 00 day, # 12 30 MG Oral tab, 0 Tablet Refill(s) [Tylenol with Codeine #3] acetaminoph No Notes: Do M emoria en-codeine 1-05 not exceed l #3 03:38: 4gm/day of [place] 00 acetaminop hen. (Same as: Tylenol with Codeine # 3) acetaminoph No Notes: Do M emoria en-codeine 1-05 not exceed l #3 03:38: 4gm/day of [place] 00 acetaminop hen. (Same as: Tylenol with Codeine # 3) acetaminoph No Notes: Do M emoria en-codeine 1-05 not exceed l #3 03:38: 4gm/day of [place] 00 acetaminop hen. (Same as: Tylenol with Codeine # 3) acetaminoph No Notes: Do M emoria en-codeine 1-05 not exceed l #3 03:38: 4gm/day of [place] 00 acetaminop hen. (Same as: Tylenol with Codeine # 3) acetaminoph No Notes: Do M emoria en-codeine 1-05 not exceed l #3 03:38: 4gm/day of [place] 00 acetaminop hen. (Same as: Tylenol with Codeine # 3) Ondansetron No Notes: Abdiel leigh ann 1-04 (Same as: l 18:46: Zofran) [place] 00 MEDICATION WASTE Product Size: 4 mg Product Wasted: ___ mg Sodium No 1,000 mL, Memori a Chloride 1-04 1000 l 0.9% 18:46: ml/hr, [place] (Bolus) IV 00 Infuse Over: 1 hr, Route: IV, 1,000, Drug form: INJ, ONCE, Priority: STAT, Dosing Weight 61.364 kg, Start date: 05/06/17 12:46:00 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, Stop date: 05/06/17 12:46:00 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 Saline No Notes: Memoria Flush 0.9% 1-04 (Same as: l 18:46: BD [place] 00 Posiflush) Ondansetron No Notes: Abdiel leigh ann 1-04 (Same as: l 18:46: Zofran) [place] 00 MEDICATION WASTE Product Size: 4 mg Product Wasted: ___ mg Sodium No 1,000 mL, Memori a Chloride 1-04 1000 l 0.9% 18:46: ml/hr, [place] (Bolus) IV 00 Infuse Over: 1 hr, Route: IV, 1,000, Drug form: INJ, ONCE, Priority: STAT, Dosing Weight 61.364 kg, Start date: 05/06/17 12:46:00 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, Stop date: 05/06/17 12:46:00 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 Saline No Notes: Memoria Flush 0.9% 1-04 (Same as: l 18:46: BD [place] 00 Posiflush) Ondansetron 2018-0 No Notes: Abdiel leigh ann 1-04 (Same as: l 18:46: Zofran) [place] 00 MEDICATION WASTE Product Size: 4 mg Product Wasted: ___ mg Sodium 2018 No 1,000 mL, Memori a Chloride 1-04 1000 l 0.9% 18:46: ml/hr, [place] (Bolus) IV 00 Infuse Over: 1 hr, Route: IV, 1,000, Drug form: INJ, ONCE, Priority: STAT, Dosing Weight 61.364 kg, Start date: 05/06/17 12:46:00 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, Stop date: 05/06/17 12:46:00 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 Saline No Notes: Mem[facility] Flush 0.9% 1-04 (Same as: l 18:46: BD [place] 00 Posiflush) Ondansetron No Notes: Abdiel leigh ann 1-04 (Same as: l 18:46: Zofran) [place] 00 MEDICATION WASTE Product Size: 4 mg Product Wasted: ___ mg Sodium No 1,000 mL, Memori a Chloride 1-04 1000 l 0.9% 18:46: ml/hr, [place] (Bolus) IV 00 Infuse Over: 1 hr, Route: IV, 1,000, Drug form: INJ, ONCE, Priority: STAT, Dosing Weight 61.364 kg, Start date: 05/06/17 12:46:00 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, Stop date: 05/06/17 12:46:00 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 Saline No Notes: [facility] Flush 0.9% 1-04 (Same as: l 18:46: BD [place] 00 Posiflush) Ondansetron 0 No Notes: Abdiel leigh ann 1-04 (Same as: l 18:46: Zofran) [place] 00 MEDICATION WASTE Product Size: 4 mg Product Wasted: ___ mg Sodium 2018 No 1,000 mL, Memori a Chloride 1-04 1000 l 0.9% 18:46: ml/hr, [place] (Bolus) IV 00 Infuse Over: 1 hr, Route: IV, 1,000, Drug form: INJ, ONCE, Priority: STAT, Dosing Weight 61.364 kg, Start date: 05/06/17 12:46:00 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, Stop date: 05/06/17 12:46:00 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 Saline 2018-0 No Notes: [facility] Flush 0.9% 1-04 (Same as: l 18:46: BD [place] 00 Posiflush) omeprazole Yes QD Take by Meth nik (PriLOSEC) 8-[address] 20 MG 00:00: daily. [facility] capsule 00 l hyoscyamine No [place] 0.125 mg, [facility]oria 01-23 [facility] 1 tab, l 16:30: Route: PO, [place] 00 Drug form: TAB, QID-Before Meals, Dosing Weight 65, kg, Start date: 01/23/13 11:30:00, Duration: 30 day, Stop date: 02/22/13 7:30:00 hyoscyamine 2012-0 No [place] 0.125 mg, [facility] 01-23 Saj[place] 1 tab, l 16:30: Route: PO, [place] 00 Drug form: TAB, QID-Before Meals, Dosing Weight 65, kg, Start date: 01/23/13 11:30:00, Duration: 30 day, Stop date: 02/22/13 7:30:00 hyoscyamine 2012-0 No [place] 0.125 mg, [facility] 01-23 Sajja 1 tab, l 16:30: Route: PO, [place] 00 Drug form: TAB, QID-Before Meals, Dosing Weight 65, kg, Start date: 01/23/13 11:30:00, Duration: 30 day, Stop date: 02/22/13 7:30:00 hyoscyamine 2012-0 No [place] 0.125 mg, [facility] 01-23 Sajja 1 tab, l 16:30: Route: PO, [place] 00 Drug form: TAB, QID-Before Meals, Dosing Weight 65, kg, Start date: 01/23/13 11:30:00, Duration: 30 day, Stop date: 02/22/13 7:30:00 hyoscyamine 2012-0 No [place] 0.125 mg, [facility] 01-23 Sajja [...] pain, Substituti on Allowed, TAB tramadol 50 Yes [place] 50 mg, 1 [facility] mg oral - Sajja tab, PO, l tablet 16:09: Q8H, PRN, [place] n 57 30 tab, as needed for pain, Substituti on Allowed, TAB tramadol 50 Yes [place] 50 mg, 1 [facility] mg oral -23 Sajja tab, PO, l tablet 16:09: Q8H, PRN, Dwight n 57 30 tab, as needed for pain, Substituti on Allowed, TAB tramadol 50 Yes [place] 50 mg, 1 [facility] mg oral - Sajja tab, PO, l tablet 16:09: Q8H, PRN, Dwight n 57 30 tab, as needed for pain, Substituti on Allowed, TAB tramadol 50 Yes [place] 50 mg, 1 [...] [place] 50 mg, 1 [facility] mg oral 9-23 Sajja tab, PO, l tablet 16:02: Q8H, PRN, Dwight n 01 10 tab, as needed for pain, Substituti on Allowed, TAB tramadol 50 No [place] 50 mg, 1 [facility] mg oral 9-23 Sajja tab, PO, l tablet 16:02: Q8H, PRN, Dwight n 01 10 tab, as needed for pain, Substituti on Allowed, TAB tramadol 50 No [place] 50 mg, 1 [facility] mg oral 9-23 Sajja tab, PO, l tablet 16:02: Q8H, PRN, Dwight n 01 10 tab, as needed for pain, Substituti on Allowed, TAB tramadol 50 No [place] 50 mg, 1 [facility] mg oral 9-23 Sajja tab, PO, l tablet 16:02: Q8H, PRN, Dwight n 01 10 tab, as needed for pain, Substituti on Allowed, TAB [place] No [place] 1 tab, Memoria 10/325 oral 9-23 Sajja Route: PO, l tablet 02:22: Drug Form: Maria E nn 00 TAB, Dosing Weight 65, kg, Q6H, PRN Pain, Start date: 01/22/13 21:22:00, Duration: 30 day, Stop date: 02/21/13 21:21:00 [place] No [place] 1 tab, Memoria 10/325 oral 9-23 Sajja Route: PO, l tablet 02:22: Drug Form: Maria E nn 00 TAB, Dosing Weight 65, kg, Q6H, PRN Pain, Start date: 01/22/13 21:22:00, Duration: 30 day, Stop date: 02/21/13 21:21:00 [place] 0 No [place] 1 tab, [facility] 10/325 oral 9-23 Sajja Route: PO, l tablet 02:22: Drug Form: Maria E nn 00 TAB, Dosing Weight 65, kg, Q6H, PRN Pain, Start date: 01/22/13 21:22:00, Duration: 30 day, Stop date: 02/21/13 21:21:00 [place] 0 No [place] 1 tab, [facility] 10/325 oral 9-23 Sajja Route: PO, l tablet 02:22: Drug Form: Maria E nn 00 TAB, Dosing Weight 65, kg, Q6H, PRN Pain, Start date: 01/22/13 21:22:00, Duration: 30 day, Stop date: 02/21/13 21:21:00 [place] 0 No [place] 1 tab, [facility] 10/325 oral 9-23 Sajja Route: PO, l tablet 02:22: Drug Form: Maria E nn 00 TAB, Dosing Weight 65, kg, Q6H, PRN Pain, Start date: 01/22/13 21:22:00, Duration: 30 day, Stop date: 02/21/13 21:21:00 Omnipaque No [place] 100 mL, Mem oria 350mg/ml 01-22 Route: l 18:12: IVP, Drug [place] 00 Form: SOLN, Dosing Weight 65, kg, ONCALL, STAT, Start date: 01/22/13 13:12:00, Duration: 1 doses or times, Dose = 2.2ml/kg, Max dose = 100ml -- "To be infused by Radiology Staff ONLY"Dose = 2.2ml/kg, Max dose = 100ml -- "To be infused by Radiology Staff ONLY" Omnipaque No [place] 100 mL, Mem oria 350mg/ml 01-22 Route: l 18:12: IVP, Drug Form: SOLN, Dosing Weight 65, kg, ONCALL, STAT, Start date: 01/22/13 13:12:00, Duration: 1 doses or times, Dose = 2.2ml/kg, Max dose = 100ml -- "To be infused by Radiology Staff ONLY"Dose = 2.2ml/kg, Max dose = 100ml -- "To be infused by Radiology Staff ONLY" Omnipaque No [place] 100 mL, Mem oria 350mg/ml 01-22 Route: l 18:12: IVP, Drug Form: SOLN, Dosing Weight 65, kg, ONCALL, STAT, Start date: 01/22/13 13:12:00, Duration: 1 doses or times, Dose = 2.2ml/kg, Max dose = 100ml -- "To be infused by Radiology Staff ONLY"Dose = 2.2ml/kg, Max dose = 100ml -- "To be infused by Radiology Staff ONLY" Omnipaque No [place] 100 mL, Mem oria 350mg/ml 01-22 Route: l 18:12: IVP, Drug [place] 00 Form: SOLN, Dosing Weight 65, kg, ONCALL, STAT, Start date: 01/22/13 13:12:00, Duration: 1 doses or times, Dose = 2.2ml/kg, Max dose = 100ml -- "To be infused by Radiology Staff ONLY"Dose = 2.2ml/kg, Max dose = 100ml -- "To be infused by Radiology Staff ONLY" Omnipaque No [place] 100 mL, Mem oria [...] Duration: 30 day, Stop date: 02/21/13 12:16:00 Dilaudid 2012-0 No [place] 0.5 mg, Abdiel leigh ann 01-22 [place] 0.25 mL, l 17:17: Route: IV, Drug form: INJ, Q4H, Dosing Weight 65, kg, PRN as needed for pain, Start date: 01/22/13 12:17:00, Duration: 30 day, Stop date: 02/21/13 12:16:00 Dilaudid 2012-0 No [place] 0.5 mg, Abdiel leigh ann 01-22 [place] 0.25 mL, l 17:17: Route: IV, [place] 00 Drug form: INJ, Q4H, Dosing Weight 65, kg, PRN as needed for pain, Start date: 01/22/13 12:17:00, Duration: 30 day, Stop date: 02/21/13 12:16:00 Dilaudid 2012-0 No [place] 0.5 mg, Abdiel leigh ann 01-22 [place] 0.25 mL, l 17:17: Route: IV, [place] Drug form: INJ, Q4H, Dosing Weight 65, kg, PRN as needed for pain, Start date: 01/22/13 12:17:00, Duration: 30 day, Stop date: 02/21/13 12:16:00 Dilaudid 2012-0 No [place] 0.5 mg, Abdiel leigh ann - [facility] 0.25 mL, l 17:17: Route: IV, [place] 00 Drug form: INJ, Q4H, Dosing Weight 65, kg, PRN as needed for pain, Start date: 01/22/13 12:17:00, Duration: 30 day, Stop date: 02/21/13 12:16:00 [place] 2012-0 No [place] 1 tab, [facility] 10/325 oral - Sajja Route: PO, l tablet 07:14: Drug Form: Maria E nn 00 TAB, Dosing Weight 65, kg, Q4H, PRN Pain, NOW, Start date: 01/22/13 2:14:00, Duration: 30 day, Stop date: 02/21/13 2:13:00 [place] 2012-0 No [place] 1 tab, [facility] 10/325 oral - Sajja Route: PO, l tablet 07:14: Drug Form: Maria E nn 00 TAB, Dosing Weight 65, kg, Q4H, PRN Pain, NOW, Start date: 01/22/13 2:14:00, Duration: 30 day, Stop date: 02/21/13 2:13:00 [place] 2012-0 No [place] 1 tab, [facility] 10/325 oral - Sajja Route: PO, l tablet 07:14: Drug Form: Maria E nn 00 TAB, Dosing Weight 65, kg, Q4H, PRN Pain, NOW, Start date: 01/22/13 2:14:00, Duration: 30 day, Stop date: 02/21/13 2:13:00 [place] 2012-0 No [place] 1 tab, [facility] 10/325 oral - Sajja Route: PO, l tablet 07:14: Drug Form: Maria E nn 00 TAB, Dosing Weight 65, kg, Q4H, PRN Pain, NOW, Start date: 01/22/13 2:14:00, Duration: 30 day, Stop date: 02/21/13 2:13:00 [place] 2012-0 No [place] 1 tab, [facility] 10/325 oral 01-22 Sajja Route: PO, l tablet 07:14: Drug Form: Maria E nn 00 TAB, Dosing Weight 65, kg, Q4H, PRN Pain, NOW, Start date: 01/22/13 2:14:00, Duration: 30 day, Stop date: 02/21/13 2:13:00 Remeron 2012-0 No [place] 15 mg, 1 Abdiel leigh ann 01-22 Sajja tab, l 02:00: Route: PO, [place] 00 Drug form: TAB, Bedtime, Dosing Weight 65, kg, Start date: 01/21/13 21:00:00, Duration: 30 day, Stop date: 02/19/13 21:00:00 Remeron 2013-0 No [place] 15 mg, 1 Abdiel leigh ann 01-22 Sajja tab, l 02:00: Route: PO, [place] 00 Drug form: TAB, Bedtime, Dosing Weight 65, kg, Start date: 01/21/13 21:00:00, Duration: 30 day, Stop date: 02/19/13 21:00:00 Remeron 2012-0 No [place] 15 mg, 1 Abdiel leigh ann 01-22 Sajja tab, l 02:00: Route: PO, [place] 00 Drug form: TAB, Bedtime, Dosing Weight 65, kg, Start date: 01/21/13 21:00:00, Duration: 30 day, Stop date: 02/19/13 21:00:00 Remeron 2013-0 No [place] 15 mg, 1 Abdiel leigh ann 01-22 Sajja tab, l 02:00: Route: PO, [place] 00 Drug form: TAB, Bedtime, Dosing Weight 65, kg, Start date: 01/21/13 21:00:00, Duration: 30 day, Stop date: 02/19/13 21:00:00 Remeron 2013-0 No [place] 15 mg, 1 Abdiel leigh ann 01-22 Sajja tab, l 02:00: Route: PO, [place] 00 Drug form: TAB, Bedtime, Dosing Weight 65, kg, Start date: 01/21/13 21:00:00, Duration: 30 day, Stop date: 02/19/13 21:00:00 hyoscyamine 2012-0 No [place] 0.125 mg, [facility] 01-21 [place] 1 tab, l 22:00: Route: PO, [place] 00 Drug form: TAB, TID, Dosing Weight 65, kg, Start date: 01/21/13 17:00:00, Duration: 30 day, Stop date: 02/20/13 13:00:00 hyoscyamine 2012-0 No [place] 0.125 mg, [facility] 01-21 [place] 1 tab, l 22:00: Route: PO, Drug form: TAB, TID, Dosing Weight 65, kg, Start date: 01/21/13 17:00:00, Duration: 30 day, Stop date: 02/20/13 13:00:00 hyoscyamine 2013-0 No [place] 0.125 mg, [facility] 01-21 [place] 1 tab, l 22:00: Route: PO, Drug form: TAB, TID, Dosing Weight 65, kg, Start date: 01/21/13 17:00:00, Duration: 30 day, Stop date: 02/20/13 13:00:00 hyoscyamine 2012-0 No [place] 0.125 mg, [facility] 01-21 [place] 1 tab, l 22:00: Route: PO, Drug form: TAB, TID, Dosing Weight 65, kg, Start date: 01/21/13 17:00:00, Duration: 30 day, Stop date: 02/20/13 13:00:00 hyoscyamine 2012-0 No [place] 0.125 mg, [facility] 01-21 [place] 1 tab, l 22:00: Route: PO, Drug form: TAB, TID, Dosing Weight 65, kg, Start date: 01/21/13 17:00:00, Duration: 30 day, Stop date: 02/20/13 13:00:00 D5W 1/2NS 2012-0 No [place] 1,000 mL, M emoria 1,000 mL 01-21 Rate: 75 l 20:44: ml/hr, Infuse over: 13.3 hr, Route: IV, Dosing Weight 65 kg, Total Volume: 1,000, Start date: 01/21/13 15:44:00, Duration: 30 day, Stop date: 02/20/13 15:43:00 D5W No [place] 1,000 mL, M emoria 1,000 mL 01-21 Sajja Rate: 75 l 20:44: ml/hr, [place] 00 Infuse over: 13.3 hr, Route: IV, Dosing Weight 65 kg, Total Volume: 1,000, Start date: 01/21/13 15:44:00, Duration: 30 day, Stop date: 02/20/13 15:43:00 D5W No [place] 1,000 mL, M emoria 1,000 mL 01-21 Sajja Rate: 75 l 20:44: ml/hr, [place] 00 Infuse over: 13.3 hr, Route: IV, Dosing Weight 65 kg, Total Volume: 1,000, Start date: 01/21/13 15:44:00, Duration: 30 day, Stop date: 02/20/13 15:43:00 D5W No [place] 1,000 mL, M emoria 1,000 mL 01-21 Sajja Rate: 75 l 20:44: ml/hr, [place] 00 Infuse over: 13.3 hr, Route: IV, Dosing Weight 65 kg, Total Volume: 1,000, Start date: 01/21/13 15:44:00, Duration: 30 day, Stop date: 02/20/13 15:43:00 D5W No [place] 1,000 mL, M emoria 1,000 mL 01-21 Sajja Rate: 75 l 20:44: ml/hr, [place] 00 Infuse over: 13.3 hr, Route: IV, Dosing Weight 65 kg, Total Volume: 1,000, Start date: 01/21/13 15:44:00, Duration: 30 day, Stop date: 02/20/13 15:43:00 Dilaudid No [place] 0.5 mg, Abdiel leigh ann 01-21 S[place]ja 0.25 mL, l 19:32: Route: IV, [place] 00 Drug form: INJ, ONCE, Dosing Weight [...] 01/21/13 14:32:00, Stop date: 01/21/13 14:32:00 Dilaudid 0 No [place] 0.5 mg, Abdiel leigh ann 01-21 S[place] 0.25 mL, l 14:39: Route: IV, Drug form: INJ, Q8H, Dosing Weight 65, kg, PRN as needed for pain, Start date: 01/21/13 9:39:00, Duration: 30 day, Stop date: 02/20/13 9:38:00 senna 8.6 2012- No [place] 8.6 mg, 1 M emoria mg oral 01-21 Sajja tab, l tablet 14:39: Route: PO, Maria E Drug Form: TAB, Dosing Weight 65, kg, BID, PRN as needed for constipati on, Start date: 01/21/13 9:39:00, Duration: 30 day, Stop date: 02/20/13 9:38:00 Dilaudid 2012-0 No [place] 0.5 mg, Abdiel leigh ann - [place] 0.25 mL, l 14:39: Route: IV, [place] 00 Drug form: INJ, Q8H, Dosing Weight 65, kg, PRN as needed for pain, Start date: 01/21/13 9:39:00, Duration: 30 day, Stop date: 02/20/13 9:38:00 senna 8.6 2013-0 No [place] 8.6 mg, 1 M emoria mg oral - Sajja tab, l tablet 14:39: Route: PO, Maria E nn 00 Drug Form: TAB, Dosing Weight 65, kg, BID, PRN as needed for constipati on, Start date: 01/21/13 9:39:00, Duration: 30 day, Stop date: 02/20/13 9:38:00 Dilaudid 2012-0 No [place] 0.5 mg, Abdiel leigh ann - [place] 0.25 mL, l 14:39: Route: IV, [place] 00 Drug form: INJ, Q8H, Dosing Weight 65, kg, PRN as needed for pain, Start date: 01/21/13 9:39:00, Duration: 30 day, Stop date: 02/20/13 9:38:00 senna 8.6 2012-0 No [place] 8.6 mg, 1 M emoria mg oral 01-21 Sajja tab, l tablet 14:39: Route: PO, [facility] E nn 00 Drug Form: TAB, Dosing Weight 65, kg, BID, PRN as needed for constipati on, Start date: 01/21/13 9:39:00, Duration: 30 day, Stop date: 02/20/13 9:38:00 Dilaudid 2012-0 No [place] 0.5 mg, Abdiel leigh ann - Saj[place] 0.25 mL, l 14:39: Route: IV, [place] 00 Drug form: INJ, Q8H, Dosing Weight 65, kg, PRN as needed for pain, Start date: 01/21/13 9:39:00, Duration: 30 day, Stop date: 02/20/13 9:38:00 senna 8.6 2012-0 No [place] 8.6 mg, 1 M emoria mg oral 01-21 Sajja tab, l tablet 14:39: Route: PO, Maria E nn 00 Drug Form: TAB, Dosing Weight 65, kg, BID, PRN as needed for constipati on, Start date: 01/21/13 9:39:00, Duration: 30 day, Stop date: 02/20/13 9:38:00 Dilaudid 2012- No [place] 0.5 mg, Abdiel leigh ann 01-21 Sajja 0.25 mL, l 14:39: Route: IV, [place] 00 Drug form: INJ, Q8H, Dosing Weight 65, kg, PRN as needed for pain, Start date: 01/21/13 9:39:00, Duration: 30 day, Stop date: 02/20/13 9:38:00 senna 8.6 2012-0 No [place] 8.6 mg, 1 M emoria mg oral 01-21 Sajja tab, l tablet 14:39: Route: PO, Maria E nn Drug Form: TAB, Dosing Weight 65, kg, BID, PRN as needed for constipati on, Start date: 01/21/13 9:39:00, Duration: 30 day, Stop date: 02/20/13 9:38:00 MiraLax 2012-0 No [place] 17 gm, 1 Abdiel leigh ann 01-21 Sajja pkt, l 14:38: Route: PO, [place] 00 Drug form: PWDR, Daily, Dosing Weight 65, kg, PRN Constipati on, Start date: 01/21/13 9:38:00, Duration: 30 day, Stop date: 02/20/13 9:37:00 tramadol 50 2012-0 No [place] 50 mg, 1 [facility] mg oral 01-21 Sajja tab, l tablet 14:38: Route: PO, Maria E nn 00 Drug form: TAB, Q8H, Dosing Weight 65, kg, PRN as needed for pain, Start date: 01/21/13 9:38:00, Duration: 30 day, Stop date: 02/20/13 9:37:00 MiraLax 2012-0 No [place] 17 gm, 1 Abdiel leigh ann 01-21 Sajja pkt, l 14:38: Route: PO, [place] 00 Drug form: PWDR, Daily, Dosing Weight [...] Duration: 30 day, Stop date: 02/20/13 9:37:00 MiraLax 2012-0 No [place] 17 gm, 1 Abdiel leigh ann 01-21 Sajja pkt, l 14:38: Route: PO, [place] Drug form: PWDR, Daily, Dosing Weight 65, [...] Duration: 30 day, Stop date: 02/20/13 9:37:00 MiraLax 2012-0 No [place] 17 gm, 1 Abdiel leigh ann 01-21 Sajja pkt, l 14:38: Route: PO, [place] 00 Drug form: PWDR, Daily, Dosing Weight [...] Duration: 30 day, Stop date: 02/20/13 9:37:00 MiraLax 2012-0 No [place] 17 gm, 1 Abdiel leigh ann 01-21 Sajja pkt, l 14:38: Route: PO, [place] 00 Drug form: PWDR, Daily, Dosing Weight [...] 01-21 Sajja tab, l 14:00: Route: PO, [place] Drug form: ECTAB, Daily, Dosing Weight 65, kg, Start date: 01/21/13 9:00:00, Duration: 30 day, Stop date: 02/19/13 9:00:00 Protonix 2012-0 No [place] 40 mg, 1 Mem oria 01-21 Sajja tab, l 14:00: Route: PO, [place] Drug form: ECTAB, Daily, Dosing Weight 65, kg, Start date: 01/21/13 9:00:00, Duration: 30 day, Stop date: 02/19/13 9:00:00 Protonix 2012-0 No [place] 40 mg, 1 Mem oria 01-21 Sajja tab, l 14:00: Route: PO, [place] Drug form: ECTAB, Daily, Dosing Weight 65, kg, Start date: 01/21/13 9:00:00, Duration: 30 day, Stop date: 02/19/13 9:00:00 Protonix 2012-0 No [place] 40 mg, 1 Mem oria 01-21 Sajja tab, l 14:00: Route: PO, [place] 00 Drug form: ECTAB, Daily, Dosing Weight 65, kg, Start date: 01/21/13 9:00:00, Duration: 30 day, Stop date: 02/19/13 9:00:00 Protonix 2012-0 No [place] 40 mg, 1 Mem oria 01-21 Sajja tab, l 14:00: Route: PO, Drug form: ECTAB, Daily, Dosing Weight 65, kg, Start date: 01/21/13 9:00:00, Duration: 30 day, Stop date: 02/19/13 9:00:00 Dilaudid 0 No [place] 0.5 mg, Abdiel leigh ann 01-21 Luis 0.25 mL, l 03:21: Route: IV, Drug form: INJ, ONCE, Dosing Weight 65, kg, PRN as needed for pain, Start date: 01/20/13 22:21:00 Dilaudid 0 No [place] 0.5 mg, Abdiel leigh ann 01-21 Luis 0.25 mL, l 03:21: Route: IV, [place] 00 Drug form: INJ, ONCE, Dosing Weight 65, kg, PRN as needed for pain, Start date: 01/20/13 22:21:00 Dilaudid 2012-0 No [place] 0.5 mg, Abdiel leigh ann - Luis 0.25 mL, l 03:21: Route: IV, [place] 00 Drug form: INJ, ONCE, Dosing Weight 65, kg, PRN as needed for pain, Start date: 01/20/13 22:21:00 Dilaudid 2012-0 No [place] 0.5 mg, Abdiel leigh ann 01-21 Luis 0.25 mL, l 03:21: Route: IV, [place] 00 Drug form: INJ, ONCE, Dosing Weight 65, kg, PRN as needed for pain, Start date: 01/20/13 22:21:00 Dilaudid 2012-0 No [place] 0.5 mg, Abdiel leigh ann 9- Luis 0.25 mL, l 03:21: Route: IV, Drug form: INJ, ONCE, Dosing Weight 65, kg, PRN as needed for pain, Start date: 01/20/13 22:21:00 Zosyn No [place] 3.375 gm, Memor ia 9-20 Sajja Route: l 16:00: IVPB, Drug [place] 00 form: PDR/INJ, [id number], Start date: 01/20/13 11:00:00, Stop date: 02/19/13 2:00:00 Zosyn 0 No [place] 3.375 gm, Memor ia 9-20 Sajja Route: l 16:00: IVPB, Drug [place] 00 form: PDR/INJ, [id number], Start date: 01/20/13 11:00:00, Stop date: 02/19/13 2:00:00 Zosyn 0 No [place] 3.375 gm, Memor ia 9-20 Sajja Route: l 16:00: IVPB, Drug [place] 00 form: PDR/INJ, [id number], Start date: 01/20/13 11:00:00, Stop date: 02/19/13 2:00:00 Zosyn No [place] 3.375 gm, Memor ia 9-20 Sajja Route: l 16:00: IVPB, Drug [place] 00 form: PDR/INJ, [id number], Start date: 01/20/13 11:00:00, Stop date: 02/19/13 2:00:00 Zosyn 0 No [place] 3.375 gm, Memor ia 9-20 Sajja Route: l 16:00: IVPB, Drug [place] form: PDR/INJ, [id number], Start date: 01/20/13 11:00:00, Stop date: 02/19/13 2:00:00 enoxaparin No Elyss[place] 40 mg, 0.4 Memoria 9-20 Luis mL, Route: l 11:00: SUB-Q, [place] 00 Drug form: INJ, [id number], Dosing Weight 65, kg, Start date: 01/20/13 6:00:00, Duration: 30 day, Stop date: 02/18/13 6:00:00 enoxaparin 2012-0 No [place] 40 mg, 0.4 Memoria 9-20 Luis mL, Route: l 11:00: SUB-Q, [facility] Drug form: INJ, [id number], Dosing Weight 65, kg, Start date: 01/20/13 6:00:00, Duration: 30 day, Stop date: 02/18/13 6:00:00 enoxaparin 2013-0 No Elyssa 40 mg, 0.4 Mem[facility] 9-20 Luis mL, Route: l 11:00: SUB-Q, [facility] Drug form: INJ, [id number], Dosing Weight 65, kg, Start date: 01/20/13 6:00:00, Duration: 30 day, Stop date: 02/18/13 6:00:00 enoxaparin 2013-0 No Elyssa 40 mg, 0.4 [facility] 9-20 Luis mL, Route: l 11:00: SUB-Q, [place] 00 Drug form: INJ, [id number], Dosing Weight 65, kg, Start date: 01/20/13 6:00:00, Duration: 30 day, Stop date: 02/18/13 6:00:00 enoxaparin 2013-0 No Elyssa 40 mg, 0.4 [facility] 9-20 Luis mL, Route: l 11:00: SUB-Q, [place] 00 Drug form: INJ, [id number], Dosing Weight 65, kg, Start date: 01/20/13 6:00:00, Duration: 30 day, Stop date: 02/18/13 6:00:00 NS + KCL 2012-0 No Elyssa 1,000 mL, Me moria 20mEq/L 9-20 Luis Rate: 125 l 1000ml 10:25: ml/hr, [facility] ([facility]) 00 Infuse 1,000 mL over: 8 hr, Route: IV, Dosing Weight 65 kg, Total Volume: 1,000, Start date: 01/20/13 5:25:00, Duration: 30 day, Stop date: 02/19/13 5:24:00 NS + KCL 2013-0 No Elsysa 1,000 mL, Me moria 20mEq/L 9-20 Luis Rate: 125 l 1000ml 10:25: ml/hr, [place] (Premix) 00 Infuse 1,000 mL over: 8 hr, Route: IV, Dosing Weight 65 kg, Total Volume: 1,000, Start date: 01/20/13 5:25:00, Duration: 30 day, Stop date: 02/19/13 5:24:00 NS + KCL 2012-0 No Elyssa 1,000 mL, Me moria 20mEq/L 9-20 Luis Rate: 125 l 1000ml 10:25: ml/hr, [facility] ([facility]) 00 Infuse 1,000 mL over: 8 hr, Route: IV, Dosing Weight 65 kg, Total Volume: 1,000, Start date: 01/20/13 5:25:00, Duration: 30 day, Stop date: 02/19/13 5:24:00 NS + KCL 2012-0 No Elyssa 1,000 mL, Me moria 20mEq/L 9-20 Luis Rate: 125 l 1000ml 10:25: ml/hr, [facility] ([facility]) 00 Infuse 1,000 mL over: 8 hr, Route: IV, Dosing Weight 65 kg, Total Volume: 1,000, Start date: 01/20/13 5:25:00, Duration: 30 day, Stop date: 02/19/13 5:24:00 NS + KCL 2012-0 No Elyssa 1,000 mL, Me moria 20mEq/L 9-20 Luis Rate: 125 l 1000ml 10:25: ml/hr, [place] (Premix) 00 Infuse 1,000 mL over: 8 hr, Route: IV, Dosing Weight 65 kg, Total Volume: 1,000, Start date: 01/20/13 5:25:00, Duration: 30 day, Stop date: 02/19/13 5:24:00 Zosyn 2012-0 No Elyssa 3.375 gm, [facility] 9-20 Luis Route: l 10:24: IVPB, Drug [facility] 00 form: INJ, Q6H, Dosing Weight 65, kg, Priority: STAT, Start date: 01/20/13 5:24:00, Duration: 30 day, Stop date: 02/19/13 0:00:00 Zosyn 2013-0 No Elyssa 3.375 gm, [facility] 9-20 Luis Route: l 10:24: IVPB, Drug [place] 00 form: INJ, Q6H, Dosing Weight 65, kg, Priority: STAT, Start date: 01/20/13 5:24:00, Duration: 30 day, Stop date: 02/19/13 0:00:00 Zosyn 2012-0 No Elyssa 3.375 gm, [facility] 9-20 Luis Route: l 10:24: IVPB, Drug [place] 00 form: INJ, Q6H, Dosing Weight 65, kg, Priority: STAT, Start date: 01/20/13 5:24:00, Duration: 30 day, Stop date: 02/19/13 0:00:00 Zosyn 2012-0 No Elyssa 3.375 gm, [facility] 9-20 Luis Route: l 10:24: IVPB, Drug [facility] 00 form: INJ, Q6H, Dosing Weight 65, kg, Priority: STAT, Start date: 01/20/13 5:24:00, Duration: 30 day, Stop date: 02/19/13 0:00:00 Zosyn 2012-0 No Elyssa 3.375 gm, [facility] 9-20 Luis Route: l 10:24: IVPB, Drug [place] 00 form: INJ, Q6H, Dosing Weight 65, kg, Priority: STAT, Start date: 01/20/13 5:24:00, Duration: 30 day, Stop date: 02/19/13 0:00:00 Dilaudid 2013-0 No [place] 0.5 mg, Abdiel leigh ann 9-20 Sajja 0.25 mL, l 10:23: Route: IV, [facility] 00 Drug form: INJ, Q4H, Dosing Weight 65, kg, PRN as needed for pain, Start date: 01/20/13 5:23:00, Duration: 30 day, Stop date: 02/19/13 5:22:00 Dilaudid 2013-0 No Weston 0.5 mg, Abdiel leigh ann 9-20 Sajja 0.25 mL, l 10:23: Route: IV, [place] 00 Drug form: INJ, Q4H, Dosing Weight 65, kg, PRN as needed for pain, Start date: 01/20/13 5:23:00, Duration: 30 day, Stop date: 02/19/13 5:22:00 Dilaudid 2013-0 No [place] 0.5 mg, Abdiel leigh ann 9-20 Sajja 0.25 mL, l 10:23: Route: IV, Drug form: INJ, Q4H, Dosing Weight 65, kg, PRN as needed for pain, Start date: 01/20/13 5:23:00, Duration: 30 day, Stop date: 02/19/13 5:22:00 Dilaudid 2012-0 No [place] 0.5 mg, Abdiel leigh ann 9-20 Sajja 0.25 mL, l 10:23: Route: IV, Drug form: INJ, Q4H, Dosing Weight 65, kg, PRN as needed for pain, Start date: 01/20/13 5:23:00, Duration: 30 day, Stop date: 02/19/13 5:22:00 Dilaudid 2012-0 No [place] 0.5 mg, Abdiel leigh ann 9-20 Sajja 0.25 mL, l 10:23: Route: IV, Drug form: INJ, Q4H, Dosing Weight 65, kg, PRN as needed for pain, Start date: 01/20/13 5:23:00, Duration: 30 day, Stop date: 02/19/13 5:22:00 docusate 2013-0 Yes Substituti Mem oria 9-20 on Allowed l 10:21: Agus docusate Yes Substituti Mem oria 9-20 on Allowed l 10:21: Agus docusate Yes Substituti Mem oria 9-20 on Allowed l 10:21: Agus docusate Yes Substituti Mem oria 9-20 on Allowed l 10:21: [place] docusate Yes Substituti Mem oria 9-20 on Allowed l 10:21: [place] 15 ondansetron 2012- No Elyssa 4 mg, 2 M emoria 9-20 Luis mL, Route: l 10:15: IVP, Drug form: INJ, Q8H, Dosing Weight 65, kg, PRN Nausea & Vomiting, Start date: 01/20/13 5:15:00, Duration: 30 day, Stop date: 02/19/13 5:14:00 ondansetron 2012-0 No Elyssa 4 mg, 2 M emoria 9-20 Luis mL, Route: l 10:15: IVP, Drug [place] 00 form: INJ, Q8H, Dosing Weight 65, kg, PRN Nausea & Vomiting, Start date: 01/20/13 5:15:00, Duration: 30 day, Stop date: 02/19/13 5:14:00 ondansetron 2012-0 No Elyssa 4 mg, 2 M emoria 9-20 Luis mL, Route: l 10:15: IVP, Drug [place] 00 form: INJ, Q8H, Dosing Weight 65, kg, PRN Nausea & Vomiting, Start date: 01/20/13 5:15:00, Duration: 30 day, Stop date: 02/19/13 5:14:00 ondansetron 2012-0 No Elyssa 4 mg, 2 M emoria 9-20 Luis mL, Route: l 10:15: IVP, Drug [place] 00 form: INJ, Q8H, Dosing Weight 65, kg, PRN Nausea & Vomiting, Start date: 01/20/13 5:15:00, Duration: 30 day, Stop date: 02/19/13 5:14:00 ondansetron 2012-0 No Elyssa 4 mg, 2 M emoria 9-20 Luis mL, Route: l 10:15: IVP, Drug [place] 00 form: INJ, Q8H, Dosing Weight 65, kg, [...] Duration: 30 day, Stop date: 02/19/13 4:40:00 NS 1,000 mL 2012-0 No Peter 1,000 mL, Memoria 9-20 Hardeep Rate: 75 l 09:41: Catherine ml/hr, [place] 00 Infuse over: 13.3 hr, Route: IV, Dosing Weight 65 kg, Total Volume: 1,000, Start date: 01/20/13 4:41:00, Duration: 30 day, Stop date: 02/19/13 4:40:00 NS 1,000 mL No Peter 1,000 mL, Memoria 9-20 Hardeep Rate: 75 l 09:41: Catherine ml/hr, [place] Infuse over: 13.3 hr, Route: IV, Dosing Weight 65 kg, Total Volume: 1,000, Start date: 01/20/13 4:41:00, Duration: 30 day, Stop date: 02/19/13 4:40:00 NS 1,000 mL No Peter 1,000 mL, Memoria 9-20 Hardeep Rate: 75 l 09:41: Catherine ml/hr, Agus Infuse over: 13.3 hr, Route: IV, Dosing Weight 65 kg, Total Volume: 1,000, Start date: 01/20/13 4:41:00, Duration: 30 day, Stop date: 02/19/13 4:40:00 NS 1,000 mL No Peter 1,000 mL, Memoria 9-20 Hardeep Rate: 75 l 09:41: Catherine ml/hr, [facility] 00 Infuse over: 13.3 hr, Route: IV, Dosing Weight 65 kg, Total Volume: 1,000, Start date: 01/20/13 4:41:00, Duration: 30 day, Stop date: 02/19/13 4:40:00 Zosyn No [place] 3.375 gm, Memor ia 01-20 Sajja Route: l 08:51: IVPB, Drug Agus form: PDR/INJ, ONCE, Dosing Weight 65, kg, Priority: STAT, Start date: 01/20/13 3:51:00, Stop date: 01/20/13 3:51:00 Zosyn 2012-0 No [place] 3.375 gm, Mem[facility] ia 9-20 Sajja Route: l 08:51: IVPB, Drug [facility] 00 form: PDR/INJ, ONCE, Dosing Weight 65, kg, Priority: STAT, Start date: 01/20/13 3:51:00, Stop date: 01/20/13 3:51:00 Zosyn No [place] 3.375 gm, Memor ia 9-20 Sajja Route: l 08:51: IVPB, Drug [place] form: PDR/INJ, ONCE, Dosing Weight 65, kg, Priority: STAT, Start date: 01/20/13 3:51:00, Stop date: 01/20/13 3:51:00 Zosyn No [place] 3.375 gm, Memor ia -20 Sajja Route: l 08:51: IVPB, Drug Agus form: PDR/INJ, ONCE, Dosing Weight 65, kg, Priority: STAT, Start date: 01/20/13 3:51:00, Stop date: 01/20/13 3:51:00 Zosyn No [place] 3.375 gm, Memor ia 9-20 Sajja Route: l 08:51: IVPB, Drug [facility] 00 form: PDR/INJ, ONCE, Dosing Weight 65, kg, Priority: STAT, Start date: 01/20/13 3:51:00, Stop date: 01/20/13 3:51:00 fentanyl No Willian 50 Memoria 9-20 Hardeep microgram, l 08:43: Catherine Route: Ag[facility] 00 IVP, ONCE, Dosing Weight 65, kg, Priority: STAT, Start date: 01/20/13 3:43:00, Stop date: 01/20/13 3:43:00 fentanyl No Willian 50 Memoria 9-20 Hardeep microgram, l 08:43: Catherine Route: [facility] 00 IVP, ONCE, Dosing Weight 65, kg, Priority: STAT, Start date: 01/20/13 3:43:00, Stop date: 01/20/13 3:43:00 fentanyl No Willian 50 Memoria 9-20 Hardeep microgram, l 08:43: Catherine Route: [place] 00 IVP, ONCE, Dosing Weight 65, kg, Priority: STAT, Start date: 01/20/13 3:43:00, Stop date: 01/20/13 3:43:00 fentanyl 0 No Willian 50 Memoria 9-20 Hardeep microgram, l 08:43: Catherine Route: [place] 00 IVP, ONCE, Dosing Weight 65, kg, Priority: STAT, Start date: 01/20/13 3:43:00, Stop date: 01/20/13 3:43:00 fentanyl 2013-0 No Peter 50 Memoria 9-20 Hardeep microgram, l 08:43: Catherine Route: [place] 00 IVP, ONCE, Dosing Weight 65, kg, Priority: STAT, Start date: 01/20/13 3:43:00, Stop date: 01/20/13 3:43:00 Zofran 2012-0 No Peter 4 mg, 2 Memoria 9-20 Hardeep mL, Route: l 06:32: Catherine IVP, Drug Maria E nn 00 form: INJ, ONCE, Dosing Weight 65, kg, Priority: STAT, Start date: 01/20/13 1:32:00, Stop date: 01/20/13 1:32:00 Zofran 2012-0 No Peter 4 mg, 2 Memoria 9-20 Hardeep mL, Route: l 06:32: Catherine IVP, Drug Maria E nn 00 form: INJ, ONCE, Dosing Weight 65, kg, Priority: STAT, Start date: 01/20/13 1:32:00, Stop date: 01/20/13 1:32:00 Zofran 2012-0 No Peter 4 mg, 2 Memoria 9-20 Hardeep mL, Route: l 06:32: Catherine IVP, Drug Maria E nn 00 form: INJ, ONCE, Dosing Weight 65, kg, Priority: STAT, Start date: 01/20/13 1:32:00, Stop date: 01/20/13 1:32:00 Zofran 2012-0 No Peter 4 mg, 2 Memoria 9-20 Hardeep mL, Route: l 06:32: Catherine IVP, Drug Maria E nn 00 form: INJ, ONCE, Dosing Weight 65, kg, Priority: STAT, Start date: 01/20/13 1:32:00, Stop date: 01/20/13 1:32:00 Zofran 2012-0 No Peter 4 mg, 2 Memoria 9-20 Hardeep mL, Route: l 06:32: Catherine IVP, Drug Maria E nn 00 form: INJ, ONCE, Dosing Weight 65, kg, Priority: STAT, Start date: 01/20/13 1:32:00, Stop date: 01/20/13 1:32:00 fentanyl 0 No Willian 50 Memoria 9-20 Hardeep microgram, l 04:31: Catherine Route: [place] 00 IVP, ONCE, Dosing Weight 65, kg, Priority: STAT, Start date: 01/19/13 23:31:00, Stop date: 01/19/13 23:31:00 fentanyl 0 No Peter 50 Memoria 9-20 Hardeep microgram, l 04:31: Catherine Route: Ag[place] 00 IVP, ONCE, Dosing Weight 65, kg, Priority: STAT, Start date: 01/19/13 23:31:00, Stop date: 01/19/13 23:31:00 fentanyl 0 No Peter 50 Memoria 9-20 Hardeep microgram, l 04:31: Catherine Route: [place] 00 IVP, ONCE, Dosing Weight 65, kg, Priority: STAT, Start date: 01/19/13 23:31:00, Stop date: 01/19/13 23:31:00 fentanyl 0 No Willian 50 Memoria 9-20 Hardeep microgram, l 04:31: Catherine Route: Agus 00 IVP, ONCE, Dosing Weight 65, kg, Priority: STAT, Start date: 01/19/13 23:31:00, Stop date: 01/19/13 23:31:00 fentanyl 0 No Peter 50 Memoria 9-20 Hardeep microgram, l 04:31: Catherine Route: [place] 00 IVP, ONCE, Dosing Weight 65, kg, Priority: STAT, Start date: 01/19/13 23:31:00, Stop date: 01/19/13 23:31:00 Omnipaque No Willian 78 mL, Memor ia 350mg/ml - Hardeep Route: l 03:40: Catherine IVP, Drug Maria E nn 00 Form: SOLN, Dosing Weight 65, kg, ONCALL, STAT, Start date: 01/19/13 22:40:00, Duration: 1 doses or times, Weight = 60 - 74kg -- "To be infused by Radiology Staff ONLY"Weigh t = 60 - 74kg -- "To be infused by Radiology Staff ONLY" Omnipaque 0 No Peter 78 mL, Memor ia 350mg/ml -20 Hardeep Route: l 03:40: Catherine IVP, Drug Maria E nn Form: SOLN, Dosing Weight 65, kg, ONCALL, STAT, Start date: 01/19/13 22:40:00, Duration: 1 doses or times, Weight = 60 - 74kg -- "To be infused by Radiology Staff ONLY"Weigh t = 60 - 74kg -- "To be infused by Radiology Staff ONLY" Omnipaque No Peter 78 mL, Memor ia 350mg/ml 01-20 Hardeep Route: l 03:40: Catherine IVP, Drug Maria E nn Form: SOLN, Dosing Weight 65, kg, ONCALL, STAT, Start date: 01/19/13 22:40:00, Duration: 1 doses or times, Weight = 60 - 74kg -- "To be infused by Radiology Staff ONLY"Weigh t = 60 - 74kg -- "To be infused by Radiology Staff ONLY" Omnipaque No Peter 78 mL, Memor ia 350mg/ml 01-20 Hardeep Route: l 03:40: Catherine IVP, Drug Maria E nn Form: SOLN, Dosing Weight 65, kg, ONCALL, STAT, Start date: 01/19/13 22:40:00, Duration: 1 doses or times, Weight = 60 - 74kg -- "To be infused by Radiology Staff ONLY"Weigh t = 60 - 74kg -- "To be infused by Radiology Staff ONLY" Omnipaque No Peter 78 mL, Memor ia 350mg/ml 01-20 Hardeep Route: l 03:40: [place] IVP, Drug Maria E nn Form: SOLN, Dosing Weight 65, kg, ONCALL, STAT, Start date: 01/19/13 22:40:00, Duration: 1 doses or times, Weight = 60 - 74kg -- "To be infused by Radiology Staff ONLY"Weigh t = 60 - 74kg -- "To be infused by Radiology Staff ONLY" NS (Bolus) No Peter 1,000 mL, M emoria IV 1000 mL -20 Hardeep Rate: l 03:38: Catherine 1,000 [place] 00 ml/hr, Infuse over: 1 hr, Route: IV, Dosing Weight 65 kg, Total Volume: 1,000, Priority: STAT, Start date: 01/19/13 22:38:00, Duration: 1 doses or times, Stop date: 01/19/13 23:37:00, Bolus DoseBolus Dose NS (Bolus) Cinthya Dorsey 1,000 mL, M emoria IV 1000 mL 9-20 Hardeep Rate: l 03:38: Catherine 1,000 [place] 00 ml/hr, Infuse over: 1 hr, Route: IV, Dosing Weight 65 kg, Total Volume: 1,000, Priority: STAT, Start date: 01/19/13 22:38:00, Duration: 1 doses or times, Stop date: 01/19/13 23:37:00, Bolus DoseBolus Dose NS (Bolus) Cinthya Dorsey 1,000 mL, M emoria IV 1000 mL 9-20 Hardeep Rate: l 03:38: Catherine 1,000 Agus 00 ml/hr, Infuse over: 1 hr, Route: IV, Dosing Weight 65 kg, Total Volume: 1,000, Priority: STAT, Start date: 01/19/13 22:38:00, Duration: 1 doses or times, Stop date: 01/19/13 23:37:00, Bolus DoseBolus Dose NS (Bolus) Cinthya Dorsey 1,000 mL, M emoria IV 1000 mL 9-20 Hardeep Rate: l 03:38: Catherine 1,000 [place] 00 ml/hr, Infuse over: 1 hr, Route: IV, Dosing Weight 65 kg, Total Volume: 1,000, Priority: STAT, Start date: 01/19/13 22:38:00, Duration: 1 doses or times, Stop date: 01/19/13 23:37:00, Bolus DoseBolus Dose NS (Bolus) Cinthya Dorsey 1,000 mL, M emoria IV 1000 mL 9-20 Hardeep Rate: l 03:38: Catherine 1,000 [place] 00 ml/hr, Infuse over: 1 hr, Route: IV, Dosing Weight 65 kg, Total Volume: 1,000, Priority: STAT, Start date: 01/19/13 22:38:00, Duration: 1 doses or times, Stop date: 01/19/13 23:37:00, Bolus DoseBolus Dose fentanyl No Willian 50 Memoria 9-20 Hardeep microgram, l 03:13: Catherine 1 mL, Route: IVP, Drug form: INJ, ONCE, Dosing Weight 65, kg, Priority: STAT, Start date: 01/19/13 22:13:00, Stop date: 01/19/13 22:13:00 fentanyl No Willian 50 Memoria 9-20 Hardeep microgram, l 03:13: Catherine 1 mL, [place] 00 Route: IVP, Drug form: INJ, ONCE, Dosing Weight 65, kg, Priority: STAT, Start date: 01/19/13 22:13:00, Stop date: 01/19/13 22:13:00 fentanyl No Willian 50 Memoria 9-20 Hardeep microgram, l 03:13: Catherine 1 mL, Route: IVP, Drug form: INJ, ONCE, Dosing Weight 65, kg, Priority: STAT, Start date: 01/19/13 22:13:00, Stop date: 01/19/13 22:13:00 fentanyl No Willian 50 Memoria 9-20 Hardeep microgram, l 03:13: Catherine 1 mL, Route: IVP, Drug form: INJ, ONCE, Dosing Weight 65, kg, Priority: STAT, Start date: 01/19/13 22:13:00, Stop date: 01/19/13 22:13:00 fentanyl No Willian 50 Memoria 9-20 Hardeep microgram, l 03:13: Catherine 1 mL, Route: IVP, Drug form: INJ, ONCE, Dosing Weight 65, kg, Priority: STAT, Start date: 01/19/13 22:13:00, Stop date: 01/19/13 22:13:00 Caltrate Yes Substituti Mem oria 600 + D 9-16 on l 19:03: Allowed, Agus Maintenanc e Caltrate Yes Substituti Mem oria 600 + D 9-16 on l 19:03: Allowed, Agus Maintenanc e Caltrate Yes Substituti Mem oria 600 + D 9-16 on l 19:03: Allowed, Agus Reddy Maintenanc e Caltrate 0 Yes Substituti Mem oria 600 + D 9-16 on l 19:03: Allowed, Agus Reddy Maintenanc e Caltrate 0 Yes Substituti Mem oria 600 + D 9-16 on l 19:03: Allowed, Agus Reddy Maintenanc e clorazepate 0 Yes Substituti Memoria 9-16 on Allowed l 19:03: Agus clorazepate 0 Yes Substituti Memoria 9-16 on Allowed l 19:03: Agus clorazepate 2012-0 Yes Substituti Memoria 9-16 on Allowed l 19:03: Agus clorazepate 0 Yes Substituti Memoria 9-16 on Allowed l 19:03: Agus Elam clorazepate 2012-0 Yes Substituti Memoria 9-16 on Allowed l 19:03: Agus Elam Symax 0 Yes Substituti Memori a Duotab 9-16 on Allowed l 19:02: Agus Murrell Symax 2012-0 Yes Substituti Memori a Duotab 9-16 on Allowed l 19:02: Agus Murrell Symax 0 Yes Substituti Memori a Duotab 9-16 on Allowed l 19:02: Agus Murrell Symax 2012-0 Yes Substituti Memori a Duotab 9-16 on Allowed l 19:02: Agus Murrell Symax 2012-0 Yes Substituti Memori a Duotab 9-16 on Allowed l 19:02: Agus Sallosec 0 Yes Substituti Mem oria 9-16 on Allowed l 19:02: Agus [place] Prilosec 0 Yes Substituti Mem oria 9-16 on Allowed l 19:02: Agus [place] Prilosec 0 Yes Substituti Mem oria 9-16 on Allowed l 19:02: Agus [place] Prilosec 0 Yes Substituti Mem oria 9-16 on Allowed l 19:02: Agus [place] Prilosec 0 Yes Substituti Mem oria 9-16 on Allowed l 19:02: Agus [place] Premarin 0 Yes Substituti Mem oria 9-16 on Allowed l 19:02: Agus Ware Premarin Yes Substituti Mem oria 9-16 on Allowed l 19:02: Agus 20 Premarin Yes Substituti Mem oria 9-16 on Allowed l 19:02: Agus 20 Premarin Yes Substituti Mem oria 9-16 on Allowed l 19:02: Agus 20 Premarin Yes Substituti Mem oria 9-16 on Allowed l 19:02: [place] 20 Vital Signs Vital Name Observation Time Observation Value Comments Source Systolic (mm Hg) 2022-12-24 15:36:00 Abdiel rial [place] Diastolic (mm Hg) 2022-12-24 15:36:00 Mem orial [place] Heart Rate 2022-12-24 15:36:00 [facility] Height 2022-12-24 15:36:00 5 [ft_i] [facility] Weight 2022-12-24 15:36:00 [facility] BMI Calculated 2022-12-24 15:36:00 Eldon al Agus Systolic blood 2022 20:23:00 124 mm[Hg] [facility] pressure Diastolic blood 2022 20:23:00 75 mm[Hg] [facility] pressure Heart rate 2022 20:23:00 79 /min [facility] Body temperature 2022 20:23:00 36.5 Radha [facility] Body height 2022 20:23:00 167.6 cm [facility] Body weight 2022 20:23:00 83.212 kg [facility] BMI 2022 20:23:00 29.61 kg/m2 [facility] Systolic (mm Hg) 2021-09-18 15:52:00 Abdiel rial [place] Diastolic (mm Hg) 2021-09-18 15:52:00 Mem orial Agus Heart Rate 2021-09-18 15:52:00 [facility] Respitory Rate 2021-09-18 15:52:00 Eldon benedict Agus Height 2021-09-18 15:52:00 165.1 cm [facility] Weight 2021-09-18 15:52:00 [facility] BMI Calculated 2021-09-18 15:52:00 Memori al Agus Systolic (mm Hg) 2021-09-08 20:55:00 Abdiel rial Agus Diastolic (mm Hg) 2021-09-08 20:55:00 Mem orial [place] Heart Rate 2021-09-08 20:55:00 [facility] [place] Respitory Rate 2021-09-08 20:55:00 Memori al Agus Height 2021-09-08 20:55:00 162.56 cm [facility] [place] Weight 2021-09-08 20:55:00 [facility] BMI Calculated 2021-09-08 20:55:00 Memori al Agus Systolic (mm Hg) 2021-06-12 15:00:00 Abdiel rial [place] Diastolic (mm Hg) 2021-06-12 15:00:00 Mem orial [place] Heart Rate 2021-06-12 15:00:00 [facility]us Respitory Rate 2021-06-12 15:00:00 Memori al Agus Height 2021-06-12 15:00:00 162.56 cm [facility] [place] Weight 2021-06-12 15:00:00 [facility] BMI Calculated 2021-06-12 15:00:00 Memori al [place] Systolic (mm Hg) 2021-03-24 19:57:00 Abdiel rial [place] Diastolic (mm Hg) 2021-03-24 19:57:00 Mem orial Agus Heart Rate 2021-03-24 19:57:00 [facility] Respitory Rate 2021-03-24 19:57:00 Memori al Agus Height 2021-03-24 19:57:00 165.1 cm [facility] [place] Weight 2021-03-24 19:57:00 [facility] BMI Calculated 2021-03-24 19:57:00 Memori al Agus Systolic (mm Hg) 2021-03-19 19:07:00 Abdiel rial [place] Diastolic (mm Hg) 2021-03-19 19:07:00 Mem orial [place] Heart Rate 2021-03-19 19:07:00 [facility]us Respitory Rate 2021-03-19 19:07:00 Memori al Agus Height 2021-03-19 19:07:00 165.1 cm [facility] Weight 2021-03-19 19:07:00 [facility] BMI Calculated 2021-03-19 19:07:00 Memori al [place] Systolic (mm Hg) 2020-12-11 15:39:00 Abdiel rial [place] Diastolic (mm Hg) 2020-12-11 15:39:00 Mem orial [place] Heart Rate 2020-12-11 15:39:00 [facility] [place] Respitory Rate 2020-12-11 15:39:00 Memori al Agus Height 2020-12-11 15:39:00 165.1 cm [facility]us Weight 2020-12-11 15:39:00 [facility] [place] BMI Calculated 2020-12-11 15:39:00 Memori al Agus Systolic (mm Hg) 2020-08-07 19:13:00 Abdiel rial [place] Diastolic (mm Hg) 2020-08-07 19:13:00 Mem orial Agus Heart Rate 2020-08-07 19:13:00 [facility] Respitory Rate 2020-08-07 19:13:00 Memori al [place] Height 2020-08-07 19:13:00 167.64 cm [facility] [place] Weight 2020-08-07 19:13:00 [facility] [place] BMI Calculated 2020-08-07 19:13:00 Memori al [place] Systolic (mm Hg) 2020-06-28 15:37:00 Abdiel rial [place] Diastolic (mm Hg) 2020-06-28 15:37:00 Mem orial Agus Heart Rate 2020-06-28 15:37:00 [facility] [place] Respitory Rate 2020-06-28 15:37:00 Memori al Agus Height 2020-06-28 15:37:00 165.1 cm [facility] [place] Weight 2020-06-28 15:37:00 [facility] [place] BMI Calculated 2020-06-28 15:37:00 Memori al Agus Temperature Oral (F) 2019-10-31 20:24:00 98.1 F [facility] Heart Rate 2019-10-31 20:24:00 [facility] Respitory Rate 2019-10-31 20:24:00 Memori al [place] Systolic (mm Hg) 2019-10-31 20:24:00 Abdiel rial [place] Diastolic (mm Hg) 2019-10-31 20:24:00 Mem orial [place] Temperature Oral (F) 2019-10-31 16:12:00 98.2 F [facility] [place] Heart Rate 2019-10-31 16:12:00 [facility] [place] Respitory Rate 2019-10-31 16:12:00 Memori al Agus Systolic (mm Hg) 2019-10-31 16:12:00 Abdiel rial [place] Diastolic (mm Hg) 2019-10-31 16:12:00 Mem orial [place] Temperature Oral (F) 2019-10-31 12:25:00 97.9 F [facility] [place] Heart Rate 2019-10-31 12:25:00 [facility] [place] Respitory Rate 2019-10-31 12:25:00 Memori al [place] Systolic (mm Hg) 2019-10-31 12:25:00 Abdiel rial [place] Diastolic (mm Hg) 2019-10-31 12:25:00 Mem orial Agus Height 2019-10-31 07:23:00 167.64 cm [facility] Weight 2019-10-31 07:23:00 [facility] [place] BMI Calculated 2019-10-31 07:23:00 Memori al Agus Systolic (mm Hg) 2019-05-05 16:51:00 Abdiel rial [place] Diastolic (mm Hg) 2019-05-05 16:51:00 Mem orial [place] Heart Rate 2019-05-05 16:51:00 [facility] [place] Respitory Rate 2019-05-05 16:51:00 Memori al [place] Height 2019-05-05 16:51:00 165.1 cm [facility] [place] Weight 2019-05-05 16:51:00 [facility] BMI Calculated 2019-05-05 16:51:00 Memori al Agus Systolic (mm Hg) 2019-03-22 17:27:00 Abdiel rial Agus Diastolic (mm Hg) 2019-03-22 17:27:00 Mem orial [place] Heart Rate 2019-03-22 17:27:00 [facility] [place] Respitory Rate 2019-03-22 17:27:00 Memori al [place] Height 2019-03-22 17:27:00 165.1 cm [facility]us Weight 2019-03-22 17:27:00 [facility] [place] BMI Calculated 2019-03-22 17:27:00 Memori al Agus Systolic (mm Hg) 2019-03-15 17:56:00 Abdiel rial [place] Diastolic (mm Hg) 2019-03-15 17:56:00 Mem orial [place] Heart Rate 2019-03-15 17:56:00 [facility] [place] Respitory Rate 2019-03-15 17:56:00 Memori al [place] Height 2019-03-15 17:56:00 165.1 cm [facility] Weight 2019-03-15 17:56:00 [facility] [place] BMI Calculated 2019-03-15 17:56:00 Memori al [place] Systolic (mm Hg) 2018-12-21 16:44:00 Abdiel rial Agus Diastolic (mm Hg) 2018-12-21 16:44:00 Mem orial [place] Heart Rate 2018-12-21 16:44:00 [facility] [place] Respitory Rate 2018-12-21 16:44:00 Memori al [place] Height 2018-12-21 16:44:00 165.1 cm [facility] [place] Weight 2018-12-21 16:44:00 [facility] [place] BMI Calculated 2018-12-21 16:44:00 Memori al Agus BMI Calculated 2018-10-19 16:19:00 Memori al [place] Height 2018-10-19 16:19:00 167.64 cm [facility] Weight 2018-10-19 16:19:00 [facility] Systolic (mm Hg) 2018-10-19 16:19:00 Abdiel rial [place] Diastolic (mm Hg) 2018-10-19 16:19:00 Mem orial Agus Respitory Rate 2018-10-19 16:19:00 Memori al [place] Heart Rate 2018-10-19 16:19:00 [facility] [place] BMI Calculated 2018-09-08 19:24:00 Memori al [place] Weight 2018-09-08 19:24:00 [facility] [place] Height 2018-09-08 19:24:00 167.64 cm [facility] Respitory Rate 2018-09-08 19:24:00 Memori al [place] Heart Rate 2018-09-08 19:24:00 [facility] Systolic (mm Hg) 2018-09-08 19:24:00 Abdiel rial [place] Diastolic (mm Hg) 2018-09-08 19:24:00 Mem orial [place] Heart Rate 2017-05-07 04:11:00 [facility] Systolic (mm Hg) 2017-05-07 04:11:00 Abdiel rial [place] Diastolic (mm Hg) 2017-05-07 04:11:00 Mem orial Agus Respitory Rate 2017-05-07 04:11:00 Memori al [place] Temperature Oral (F) 2017-05-07 04:11:00 98.0 F [facility] [place] Temperature Oral (F) 2017-05-07 02:30:00 97.7 F [facility] Systolic (mm Hg) 2017-05-07 02:30:00 Abdiel rial Agus Diastolic (mm Hg) 2017-05-07 02:30:00 Mem orial [facility] Heart Rate 2017-05-07 02:30:00 [facility] Respitory Rate 2017-05-07 02:30:00 Memori al [place] Weight 2017-05-06 18:43:00 [facility] Temperature Oral (F) 2017-05-06 18:43:00 98.2 F [facility] Heart Rate 2017-05-06 18:43:00 [facility] Respitory Rate 2017-05-06 18:43:00 Memori al [place] Systolic (mm Hg) 2017-05-06 18:43:00 Abdiel rial Agus Diastolic (mm Hg) 2017-05-06 18:43:00 Mem orial [facility] Heart Rate 2013-01-23 12:37:00 [facility] [place] Temperature Oral (F) 2013-01-23 12:37:00 98.1 F [facility] [place] Respitory Rate 2013-01-23 12:37:00 Memori al Agus Systolic (mm Hg) 2013-01-23 12:37:00 Abdiel rial Agus Diastolic (mm Hg) 2013-01-23 12:37:00 Mem orial [facility] Diastolic (mm Hg) 2013-01-23 10:13:00 Mem orial Agus Systolic (mm Hg) 2013-01-23 10:13:00 Abdiel rial [place] Heart Rate 2013-01-23 10:13:00 [facility] [place] Respitory Rate 2013-01-23 10:13:00 [facility] [place] Temperature Oral (F) 2013-01-23 10:13:00 98.4 F [facility] [place] Heart Rate 2013-01-23 00:10:00 [facility] Systolic (mm Hg) 2013-01-23 00:10:00 [facility] [place] Respitory Rate 2013-01-23 00:10:00 [facility] Diastolic (mm Hg) 2013-01-23 00:10:00 [facility] Temperature Oral (F) 2013-01-23 00:10:00 98.5 F [facility] Height 2013-01-20 14:20:00 158.4 cm [facility] [place] Height 2013-01-20 01:53:00 160.02 cm [facility] Weight 2013-01-20 01:53:00 [facility] Weight 2013-01-16 19:03:00 [facility] [place] Diastolic (mm Hg) 2013-01-16 19:03:00 [facility] [place] Systolic (mm Hg) 2013-01-16 19:03:00 [facility] Temperature Oral (F) 2013-01-16 19:03:00 98.5 F [facility] Respitory Rate 2013-01-16 19:03:00 [facility] Heart Rate 2013-01-16 19:03:00 [facility] Procedures Procedure Date / Time Performed Performing Clinician Sourc e cholecys <sup>1</sup> [facility] cholecys<sup>1</sup> [facility] Laminectomy for [facility] decompression and exploration Plan of Care Planned Activity Planned Date Details Comments Source Future Scheduled 2023-01-19 [facility] 15:07:02 malignant neoplasm of colon (procedure) [code = [id number]] Future Scheduled 2023-01-19 [facility] 15:07:02 malignant neoplasm of colon (procedure) [code = [id number]] Future Scheduled 2023-01-19 [facility] 15:07:02 malignant neoplasm of colon (procedure) [code = [id number]] Future Scheduled 2023-01-19 COVID-19 VACCINE (#1) [facility] Test 15:07:02 [code = COVID-19 VACCINE (#1)] Future Scheduled 2023-01-19 Hepatitis C screening [facility] Test 15:07:02 (procedure) [code = 609930682] Future Scheduled 2023-01-19 Screening for [facility] Test 15:07:02 malignant neoplasm of colon (procedure) [code = 030443620] Future Scheduled 2023-01-19 Screening for [facility] Test 15:07:02 malignant neoplasm of colon (procedure) [code = 593597921] Future Scheduled 2023-01-19 SHINGLES VACCINES (1 Met [facility] Test 15:07:02 of 2) [code = SHINGLES VACCINES (1 of 2)] Future Scheduled 2023-01-19 BREAST CANCER [facility] Test 15:07:02 SCREENING [code = BREAST CANCER SCREENING] Future Scheduled 2023-01-[address] [facility] Test 15:07:02 VACCINE (1 - PCV) [code = 65+ PNEUMOCOCCAL VACCINE (1 - PCV)] Future Scheduled 2023-01-19 INFLUENZA VACCINE (#1) [facility] Test 15:07:02 [code = INFLUENZA VACCINE (#1)] Encounters Start End Encounter Admission Attending Care Care Encounter Source Date/Time Date/Time Type Type Clinicians Facility Department ID 2023-02-05 Outpatient nullFlavo Cecilia [id number] Memoria 19:39:40 r Medical 02 [facility] 2022-07-27 [facility] [id number] Common 13:08:01 [id number] [facility] 2021-12-30 Outpatient nullFlavo Cecilia [id number] Memoria 11:46:33 r Medical 02 [facility] 2021-11-27 [facility] [id number] Common 08:50:01 [facility] 2021-07-07 Outpatient [facility] [id number] Common 13:50:04 [facility] 2023-04-09 2023-04-09 Outpatient MIREILLE KENDRICK [id number] Memoria 11:15:00 11:15:00 26 [facility] 2023-02-04 2023-02-04 Outpatient MIREILLE KENDRICK [id number] Memoria 10:45:00 10:45:00 25 [facility] 2022-12-24 2022-12-25 Outpatient MHGUILHERME NERI [id number] Memoria 15:45:00 04:59:59 Neurology 24 [place] 2022-12-24 2022-12-24 Outpatient [facility] [id number] 10:45:00 23:59:59 Felice 24 [place] 2022-12-24 2022-12-24 Outpatient MHIE MHIE [id number] Memoria 10:45:00 10:45:00 24 larry Goldsmith 2022-12-24 2022-12-24 Outpatient MHIE MHIE [id number] Memoria 10:45:00 10:45:00 24 larry Goldsmith 2022 2022 Clinical Ondo, 1.2.840.1 [id number] 81250 Methodi 15:30:00 15:50:41 Support Tulio 90892.1.[address] [place] 3.430.2.7 Hospit a .3.214627 l .8 2022 2022 Outpatient ONDO, [facility] [id number] [place] 00:00:00 00:00:00 TULIO [address] 2022-09-08 2022-09-08 Clinical Ondo, 1.2.840.1 [id number] 88572 54264 Methodi 09:00:00 10:20:12 Support Tulio 04933.1.[address] [place] 3.430.2.7 Hospit a .3.161846 l .8 2022-09-08 2022-09-08 Travel 1.2.840.1 1.2.714.608 0864 269344 Methodi 00:00:00 00:00:[address] 3.430.2.7 0.2.7.3.698 spita .3.457266 084.8 l .8 2022-09-08 2022-09-08 Outpatient ONDO, [facility] [id number] [place] 00:00:00 00:00:00 TULIO [address] 2022-08-18 2022-08-18 Transcribe Ondo, 1.2.840.1 [id number] 566 6597913 Methodi 00:00:00 00:00:00 Orders Tulio 60328.1.[address] [place] 3.430.2.7 Hospit a .3.488157 l .8 2022-08-13 2022-08-13 Travel 1.2.840.1 1.2.750.153 0630 889263 Methodi 00:00:00 00:00:[address] 3.430.2.7 0.2.7.3.698 Ho spita .3.947794 084.8 l .8 2022-06-11 2022-06-11 Telephone Nam, 1.2.840.1 [id number] 2099 090613 Methodi 00:00:00 00:00:[address] 3.430.2.7 Hospit a .3.776420 l .8 2022-06-10 2022-06-10 Telephone On, 1.2.840.1 [id number] 2099 265181 Methodi 00:00:00 00:00:[address] [place] 3.430.2.7 Hospit a .3.147725 l .8 2022-06-09 2022-06-09 Clinical On, 1.2.840.1 [id number] 54119 43881 Methodi 10:45:00 11:59:28 Support Tulio 63663.1.[address] [place] 3.430.2.7 Hospit a .3.724511 l .8 2022-06-09 2022-06-09 Travel 1.2.840.1 1.2.088.430 7860 943160 Methodi 00:00:00 00:00:[address] 3.430.2.7 0.2.7.3.698 Ho spita .3.695970 084.8 l .8 2022-06-09 2022-06-09 [id number] [place] 00:00:00 00:00:00 TULIO [address] 2022-03-16 2022-03-16 Telephone Nam, 1.2.840.1 [id number] 2100 656584 Methodi 00:00:00 00:00:[address] 3.430.2.7 Hospit a .3.614980 l .8 2022-03-10 2022-03-10 Clinical Ondo, 1.2.840.1 822198632 20455 91490 Methodi 10:15:00 11:03:19 Support Tulio 85052.1.[address] [place] 3.430.2.7 Hospit a .3.365902 l .8 2022-03-10 2022-03-10 Travel 1.2.840.1 1.2.534.718 2757 523217 Methodi 00:00:00 00:00:[address] 3.430.2.7 0.2.7.3.698 Ho spita .3.719090 084.8 l .8 2022-03-10 2022-03-10 Outpatient [facility] [id number] [place] 00:00:00 00:00:00 TULIO 231 Method i 2021-12-30 2021-12-30 [facility] [id number] [place] 00:00:00 00:00:00 TULIO 731 Method i 2021 2021 Ambulatory nullFlavo MNA [id number] Memoria 19:15:00 19:15:00 Pre-Reg r Neurology 21 l [place] 2021 2021 Ambulatory nullFlavo MNA [id number] Memoria 19:15:00 19:15:00 Pre-Reg r Neurology 21 l [place] 2021 2021 Outpatient MHIE IE [id number] [place] 14:15:00 14:15:00 21 l [place] 2021 2021 Outpatient BRIANA Palacios MISCHSHIMA [id number] 14:15:00 14:15:00 Felice 21 [place] 2021-11-26 2021-11-26 [facility] [id number] [place] 00:00:00 00:00:00 TULIO Martinez Method i 2021-11-18 2021-11-18 Outpatient [facility] [id number] [place] 00:00:00 00:00:[address] [facility]t 2021-10-17 2021-10-17 Ambulatory nullFlavo MNA [id number] Memoria 19:45:00 19:45:00 Pre-Reg r Neurology 23 l Dolly Cummingsann 2021-10-17 2021-10-17 Ambulatory nullFlavo MNA [id number] Memoria 19:45:00 19:45:00 Pre-Reg r Neurology 23 l [place] Agus 2021-10-17 2021-10-17 Outpatient MHIE MHIE [id number] Memoria 14:45:00 14:45:00 23 lar[place] 2021-10-17 2021-10-17 Outpatient BRIANA Palacios MISCHER [id number] 14:45:00 14:45:00 Felice 23 Tulio 2021-09-18 2021-09-19 Outpatient nullFlavo MNA [id number] Memoria 16:15:00 04:59:59 r Neurology 22 l [place] 2021-09-18 2021-09-19 Outpatient nullFlavo MNA [id number] Memoria 16:15:00 04:59:59 r Neurology 22 l [place] 2021-09-18 2021-09-18 [facility] [id number] 11:15:00 23:59:59 Felice 22 Tul[place] 2021-09-18 2021-09-18 Outpatient MHIE IE [id number] Memoria 11:15:00 11:15:00 22 larry Agus 2021-09-08 2021-09-09 Outpatient nullFlavo MNA [id number] Memoria 21:00:00 04:59:59 r Neurology 20 l [place] 2021-09-08 2021-09-09 Outpatient nullFlavo MNA [id number] Memoria 21:00:00 04:59:59 r Neurology 20 larry Cummingsann 2021-09-08 2021-09-08 Outpatient BRIANA Palacios MISCHER [id number] 16:00:00 23:59:59 Felice 20 Tul[place] 2021-09-08 2021-09-08 Outpatient MHIE MHIE [id number] Memoria 16:00:00 16:00:00 20 larry Goldsmith 2021-06-12 2021-06-13 Outpatient nullFlavo MNA [id number] Memoria 15:15:00 05:59:59 r Neurology 16 l Dolly Goldsmith 2021-06-12 2021-06-13 Outpatient nullFlavo MNA [id number] Memoria 15:15:00 05:59:59 r Neurology 16 l Dolly Goldsmith 2021-06-12 2021-06-12 [facility] [id number] 09:15:00 23:59:59 Felice 16 Tulio 2021-06-12 2021-06-12 Outpatient MHIE MHIE [id number] Memoria 09:15:00 09:15:00 16 larry Goldsmith 2021-04-30 2021-04-30 Outpatient MHIE MHIE [id number] Memoria 09:15:00 09:15:00 18 larry Goldsmith 2021-04-30 2021-04-30 Outpatient MHIE MHIE [id number] Memoria 09:15:00 09:15:00 18 larry Goldsmith 2021-04-23 2021-04-23 Ambulatory nullFlavo MNA [id number] Memoria 16:30:00 16:30:00 Pre-Reg r Neurology 18 l Dolly Goldsmith 2021-04-23 2021-04-23 [facility] [id number] 10:30:00 10:30:00 Felice 18 Tulio 2021-04-17 2021-04-17 Outpatient [facility] [id number] [place] 00:00:00 00:00:00 BIIS [address] 2021-04-08 2021-04-08 Outpatient [facility] [id number] [place] 00:00:00 00:00:00 IBIS [address] 2021-03-24 2021-03-25 Outpatient nullFlavo MNA [id number] Memoria 20:00:00 05:59:59 r Neurology 19 l Dolly Goldsmith 2021-03-24 2021-03-25 Outpatient nullFlavo MNA [id number] Memoria 20:00:00 05:59:59 r Neurology 19 l Dolly Goldsmith 2021-03-24 2021-03-24 [id number] 14:00:00 23:59:59 Felice 19 Tulio 2021-03-24 2021-03-24 Outpatient MHIE MHIE [id number] Memoria 14:00:00 14:00:00 19 larry Goldsmith 2021-03-19 2021-03-20 Outpatient nullFlavo MNA [id number] Memoria 19:15:00 05:59:59 r Neurology 17 l Dolly Goldsmith 2021-03-19 2021-03-20 Outpatient nullFlavo MNA [id number] Memoria 19:15:00 05:59:59 r Neurology 17 l Dolly Goldsmith 2021-03-19 2021-03-19 Outpatient Suzanne [facility] [id number] 13:15:00 23:59:59 Felice 17 Tulio 2021-03-19 2021-03-19 Outpatient MHIE IE [id number] Memoria 13:15:00 13:15:00 17 larry Goldsmith 2020-12-11 2020-12-12 Outpatient nullFlavo MNA [id number] Memoria 15:45:00 04:59:59 r Neurology 15 l Dolly Goldsmith 2020-12-11 2020-12-12 Outpatient nullFlavo MNA [id number] Memoria 15:45:00 04:59:59 r Neurology 15 l Dolly Goldsmith 2020-12-11 2020-12-11 Out[facility] [id number] 10:45:00 23:59:59 Felice 15 Tulio 2020-12-11 2020-12-11 Outpatient MHIE MHIE [id number] [place]oria 10:45:00 10:45:00 15 larry Goldsmith 2020-08-07 2020-08-08 Outpatient nullFlavo MNA [id number] Memoria 19:00:00 04:59:59 r Neurology 13 l Dolly Goldsmith 2020-08-07 2020-08-08 Outpatient nullFlavo MNA [id number] Memoria 19:00:00 04:59:59 r Neurology 13 l Dolly Goldsmith 2020-08-07 2020-08-07 Outpatient ALEJA [facility] [id number] 14:00:00 23:59:59 Felice 13 Tulio 2020-08-07 2020-08-07 Outpatient MHIE MHIE [id number] [place]oria 14:00:00 14:00:00 13 larry Goldsmith 2020-07-05 2020-07-06 Outpatient nullFlavo MNA [id number] Memoria 17:45:00 05:59:59 r Neurology 14 l Dolly Goldsmith 2020-07-05 2020-07-06 Outpatient nullFlavo MNA [id number] Memoria 17:45:00 05:59:59 r Neurology 14 l Dolly Goldsmith 2020-07-05 2020-07-05 Outpatient JOSELUIS [facility]aciosNCSUBHASH [facility] [id number] 11:45:00 23:59:59 Felice 14 Tulio 2020-07-05 2020-07-05 Outpatient MHIE MHIE [id number] Memoria 11:45:00 11:45:00 14 larry Goldsmith 2020-06-28 2020-06-29 Outpatient nullFlavo MNA [id number] Memoria 15:30:00 05:59:59 r Neurology 12 l Dolly Goldsmith 2020-06-28 2020-06-29 Outpatient nullFlavo MNA [id number] Memoria 15:30:00 05:59:59 r Neurology 12 l Dolly Cummingsann 2020-06-28 2020-06-28 Outpatient ALEJA [facility] [id number] 09:30:00 23:59:59 Felice 12 Tulio 2020-06-28 2020-06-28 Outpatient MHIE MHIE [id number] Memoria 09:30:00 09:30:00 12 larry Agus 2020-06-10 2020-06-15 Inpatient RAUDEL ROGER [facility] [id number] [place] 00:00:00 00:00:[address] 2020-06-10 2020-06-10 Outpatient ANIVAL [facility] [id number] [place] 00:00:00 00:00:00 RAFFI 877 Method i 2020-06-10 2020-06-10 Outpatient FLORIAN [facility] [id number] [place] 00:00:00 00:00:00 RAFFI 065 Method i 2020-06-10 2020-06-10 Outpatient FLORIAN [facility] [id number] [place] 00:00:00 00:00:00 RAFFI 875 Method i 2020-06-10 2020-06-10 Outpatient FLORIAN [facility] [id number] [place] 00:00:00 00:00:00 RAFFI 876 Method i 2020-05-27 2020-05-27 Ambulatory nullFlavo MNA [id number] Memoria 15:45:00 15:45:00 Pre-Reg r Neurology 11 l [facility] 2020-05-27 2020-05-27 Ambulatory nullFlavo MNA [id number] Memoria 15:45:00 15:45:00 Pre-Reg r Neurology 11 l [place] 2020-05-27 2020-05-27 Outpatient MHIE IE [id number] Memoria 09:45:00 09:45:00 11 larry [place] 2020-05-27 2020-05-27 [facility] [id number] 09:45:00 09:45:00 Felice Radha Antunez 2020-05-23 2020-05-23 Outpatient [facility] [id number] [place] 00:00:00 00:00:00 RAFFI 224 Method i 2020-05-23 2020-05-23 Outpatient [facility] [id number] [place] 00:00:00 00:00:00 RAFFI 958 Method i 2019-10-31 2019-10-31 Observatio [facility]Flavo [facility] [id number] Memoria 07:06:00 21:58:00 talita Goldsmith [address] [place] [address] 2019-10-31 2019-10-31 Observatio [facility]Flavo [facility] [id number] Memoria 07:06:00 21:58:00 tlaita Goldsmith [address] [place] [address] 2019-10-31 2019-10-31 Outpatient Narayan [facility] [id number] 02:06:00 16:58:00 Shira Lerma 2019-10-31 2019-10-31 Outpatient U NARAYAN, [facility] 0181 [facility] 02:06:00 16:58:00 SHIRA 2019-10-19 2019-10-19 Outpatient FLORIAN, [facility] [id number] [place] 00:00:00 00:00:00 RAFFI [address] 2019-09-19 2019-09-22 Inpatient FLORIAN, [facility] [id number] [place] 00:00:00 00:00:00 RAFFI [address] 2019-09-11 2019-09-11 Outpatient FLORIAN, [facility] [id number] [place] 00:00:00 00:00:00 RAFFI [address] 2019-09-11 2019-09-11 Outpatient FLORIAN, [facility] [id number] [place] 00:00:00 00:00:00 RAFFI [address] 2019-09-06 2019-09-06 Outpatient FLORIAN, [facility] [id number] [place] 00:00:00 00:00:00 RAFFI [address] 2019-09-06 2019-09-06 Outpatient FLORIAN, [facility] [id number] [place] 00:00:00 00:00:00 RAFFI [address] 2019-09-06 2019-09-06 Outpatient FLORIAN, [facility] [id number] [place] 00:00:00 00:00:00 RAFFI [address] 2019-08-14 2019-08-14 Outpatient FLORIAN, [facility] [id number] [place] 00:00:00 00:00:00 RAFFI [address] 2019-08-14 2019-08-14 Outpatient FLORIAN, [facility] [id number] [place] 00:00:00 00:00:00 RAFFI [address] 2019-08-14 2019-08-14 Outpatient FLORIAN, [facility] [id number] [place] 00:00:00 00:00:00 RAFFI [address] 2019-08-14 2019-08-14 Outpatient FLORIAN, [facility] [id number] [place] 00:00:00 00:00:00 RAFFI [address] 2019-08-14 2019-08-14 Outpatient FLORIAN, [facility] [id number] [place] 00:00:00 00:00:00 RAFFI [address] 2019-08-04 2019-08-04 Ambulatory nullFlavo MNA [id number] Memoria 14:15:00 14:15:00 Pre-Reg r Neurology 10 l [place] 2019-08-04 2019-08-04 Ambulatory nullFlavo MNA [id number] Memoria 14:15:00 14:15:00 Pre-Reg r Neurology 10 l [place] 2019-08-04 2019-08-04 Outpatient MHIE MHIE [id number] Memoria 09:15:00 09:15:00 10 l Agus 2019-08-04 2019-08-04 [facility] [id number] 09:15:00 09:15:00 Felice 10 [place] 2019-07-28 2019-07-28 [facility] [id number] 17:09:16 23:59:00 GILA [facility] 2019-07-28 2019-07-28 [facility] 1.2.840.114 [id number] 17:09:00 23:59:00 Encounter Gila [place] 350.1.13.10 [place] 4.2.7.2.686 [place] [id number] 2019-07-28 2019-07-28 Urgent Pob1, Acute [facility] 1.2.840.114 [id number] 15:30:08 17:04:14 [facility] [place] [facility] 350.1.13.10 [place] 4.2.7.2.686 [facility] [id number] nal [address] 2019-07-04 2019-07-04 Outpatient TORRES, [facility] [id number] [place] 00:00:00 00:00:00 IBIS [address] 2019-05-05 2019-05-06 Outpatient nullFlavo MNA [id number] Memoria 17:45:00 05:59:59 r Neurology 09 l [place] 2019-05-05 2019-05-06 Outpatient nullFlavo MNA [id number] Memoria 17:45:00 05:59:59 r Neurology 09 l [place] 2019-05-05 2019-05-05 Outpatient [facility]anne [facility] [id number] 11:45:00 23:59:59 Felice Viviana Antunez 2019-05-05 2019-05-05 Outpatient MHIE MHIE [id number] Memoria 11:45:00 11:45:00 09 larry Agus 2019-03-22 2019-03-23 Outpatient nullFlavo MNA [id number] Memoria 17:30:00 05:59:59 r Neurology 08 larry Alberto [place] 2019-03-22 2019-03-23 Outpatient nullFlavo MNA [id number] Memoria 17:30:00 05:59:59 r Neurology 08 larry Alberto [place] 2019-03-22 2019-03-22 Outpatient [facility] [id number] 11:30:00 23:59:59 Felice Jenny Antunez 2019-03-22 2019-03-22 Outpatient MHIE MHIE [id number] Memoria 11:30:00 11:30:00 08 larry Agus 2019-03-15 2019-03-16 Outpatient nullFlavo MNA [id number] Memoria 17:15:00 05:59:59 r Neurology 07 larry Alberto Agus 2019-03-15 2019-03-16 Outpatient nullFlavo MNA [id number] Memoria 17:15:00 05:59:59 r Neurology 07 larry Alberto [place] 2019-03-15 2019-03-15 Outpatient [facility] [id number] 11:15:00 23:59:59 Felice Tammy Antunez 2019-03-15 2019-03-15 Outpatient MHIE MHIE [id number] Memoria 11:15:00 11:15:00 07 larry [place] 2018-12-21 2018-12-22 Outpatient nullFlavo MNA [id number] Memoria 16:30:00 04:59:59 r Neurology 06 larry Alberto [place] 2018-12-21 2018-12-22 Outpatient nullFlavo MNA [id number] Memoria 16:30:00 04:59:59 r Neurology 06 larry Alberto Agus 2018-12-21 2018-12-21 [facility] [id number] 11:30:00 23:59:59 Felice Lacey Antunez 2018-12-21 2018-12-21 Outpatient MHIE MHIE [id number] Memoria 11:30:00 11:30:00 06 larry [place] 2018-10-19 2018-10-20 Outpatient nullFlavo MNA [id number] Memoria 16:45:00 04:59:59 r Neurology 05 larry Alberto [place] 2018-10-19 2018-10-20 Outpatient nullFlavo MNA [id number] Memoria 16:45:00 04:59:59 r Neurology 05 larry Alberto [place] 2018-10-19 2018-10-19 Outpatient [facility] [id number] 11:45:00 23:59:59 Felice Antunez 2018-10-19 2018-10-19 Outpatient MHIE MHIE [id number] Memoria 11:45:00 11:45:00 05 larry [place] 2018-09-08 2018-09-09 Outpatient nullFlavo MNA [id number] Memoria 19:30:00 04:59:59 r Neurology 04 larry Alberto [place] 2018-09-08 2018-09-09 Outpatient nullFlavo MNA [id number] Memoria 19:30:00 04:59:59 r Neurology 04 larry Alberto [place] 2018-09-08 2018-09-08 [facility] [id number] 14:30:00 23:59:59 Felice Antunez 2018-09-08 2018-09-08 Outpatient MHIE MHIE [id number] Memoria 14:30:00 14:30:00 Bertrand juarez [place] 2018-08-18 2018-08-20 Phone nullFlavo MNA [id number] Memoria 15:14:00 04:59:59 Message r Neurology 00 larry Alberto [place] 2018-08-18 2018-08-20 Phone nullFlavo MNA [id number] Memoria 15:14:00 04:59:59 Message r Neurology 00 larry Alberto [place] 2018-08-18 2018-08-19 [facility] [id number] 10:14:00 23:59:59 2018-08-03 2018-08-03 Outpatient MHIE MHIE [id number] Memoria 15:00:00 15:00:00 03 l [place] 2018-08-03 2018-08-03 Outpatient MHIE MHIE [id number] Memoria 15:00:00 15:00:00 00 l [place] 2018-08-03 2018-08-03 Outpatient MHIE MHIE [id number] Memoria 15:00:00 15:00:00 00 l [place] 2018-08-03 2018-08-03 Outpatient MHIE MHIE [id number] Memoria 15:00:00 15:00:00 03 l [place] 2018-07-15 2018-07-15 Outpatient MHIE MHIE [id number] Memoria 08:45:00 08:45:00 01 larry [place] 2018-07-15 2018-07-15 Outpatient MHIE MHIE [id number] Memoria 08:45:00 08:45:00 01 larry Agus 2018-07-15 2018-07-15 Outpatient MHIE MHIE [id number] Memoria 08:15:00 08:15:00 02 larry [place] 2018-07-15 2018-07-15 Outpatient MHIE IE [id number] Memoria 08:15:00 08:15:00 02 larry [place] 2017-05-06 2017-05-07 Emergency nullFlavo [facility] [id number] Memoria 18:16:00 04:13:00 r Agus 04 larry [facility] 2017-05-06 2017-05-07 Emergency nullFlavo [facility] [id number] Memoria 18:16:00 04:13:00 r Agus 04 larry [facility] 2017-05-06 2017-05-06 Outpatient Linh[facility] [id number] 12:16:00 22:13:00 Bryan Alfred 2013-01-20 2013-01-23 Inpatient nullFlavo [facility] [id number] Memoria 04:46:00 11:30:00 r Medical 03 l [facility] 2013-01-20 2013-01-23 Inpatient nullFlavo [facility] [place] [id number] Memoria 04:46:00 11:30:00 r Medical 03 l [facility] 2013-01-19 2013-01-19 RAULITO nullFlavo [facility] [id number] Memoria 08:37:00 16:23:00 r Medical 01 l [facility] [place] 2013-01-19 2013-01-19 RAULITO nullFlavo [facility] [id number] Memoria 08:37:00 16:23:00 r Medical 01 [facility] 2013-01-16 2013-01-16 Outpatient nullFlavo [facility] [id number] Memoria 13:45:00 13:45:00 r Medical 00 [facility] 2013-01-16 2013-01-16 Outpatient nullFlavo [facility] [id number] Memoria 13:45:00 13:45:00 r Medical 00 [facility] Results Test Description Test Time Test Comments Results Result Comments Source [facility] 2021-06-12 15:55:00 Test Item Value Reference Range Interpretation Comme nts Vitamin B12 Lvl (test code = Vitamin B12 Lvl) 5843 [id number] [facility] 15:55:00 Test Item Value Reference Range Interpretation Comments Sed Rate (test code = Sed Rate) 2 [place] [id number] 15:55:00 Test Item Value Reference Range Interpretation Comments Primidone Lvl (test code = Primidone 4.2 5.0-12.0 Lvl) [place] [id number] 15:55:00 Test Item Value Reference Range Interpretation Comments Phenobarb Lvl (test code = Phenobarb no gt 15.0-40.0 Lvl) [facility]2022-02-10 15:55:00 Test Item Value Reference Range Interpretation Comments Vitamin B12 Lvl (test code = Vitamin [phone] B12 Lvl) [id number] 15:55:00 Test Item Value Reference Range Interpretation Comments Sed Rate (test code = Sed Rate) 2 [place] [id number] 15:55:00 Test Item Value Reference Range Interpretation Comments Primidone Lvl (test code = Primidone 4.2 5.0-12.0 Lvl) [place] [id number] 15:55:00 Test Item Value Reference Range Interpretation Comments Phenobarb Lvl (test code = Phenobarb no gt 15.0-40.0 Lvl) [facility]2022-02-10 15:55:00 Test Item Value Reference Range Interpretation Comments Vitamin B12 Lvl (test code = Vitamin [phone] B12 Lvl) [id number] 15:55:00 Test Item Value Reference Range Interpretation Comments Sed Rate (test code = Sed Rate) 2 [place] [id number] 15:55:00 Test Item Value Reference Range Interpretation Comments Primidone Lvl (test code = Primidone 4.2 5.0-12.0 Lvl) [place] [id number] 15:55:00 Test Item Value Reference Range Interpretation Comments Phenobarb Lvl (test code = Phenobarb no gt 15.0-40.0 Lvl) [facility]2022-02-10 15:55:00 Test Item Value Reference Range Interpretation Comments Vitamin B12 Lvl (test code = Vitamin [phone] B12 Lvl) [id number] 15:55:00 Test Item Value Reference Range Interpretation Comments Sed Rate (test code = Sed Rate) 2 [place] [id number] 15:55:00 Test Item Value Reference Range Interpretation Comments Primidone Lvl (test code = Primidone 4.2 5.0-12.0 Lvl) [place] [id number] 15:55:00 Test Item Value Reference Range Interpretation Comments Phenobarb Lvl (test code = Phenobarb no gt 15.0-40.0 Lvl) [facility]2022-02-10 15:55:00 Test Item Value Reference Range Interpretation Comments Vitamin B12 Lvl (test code = Vitamin [phone] B12 Lvl) [id number] 15:55:00 Test Item Value Reference Range Interpretation Comments Sed Rate (test code = Sed Rate) 2 [place] [id number] 15:55:00 Test Item Value Reference Range Interpretation Comments Primidone Lvl (test code = Primidone 4.2 5.0-12.0 Lvl) [place] [id number] 15:55:00 Test Item Value Reference Range Interpretation Comments Phenobarb Lvl (test code = Phenobarb no gt 15.0-40.0 Lvl) [facility] WljoglvKFKS-EdS-9 (COVID-19) RNA [Presence] in Respiratory specimen by DIPTI with probe cparturfq8770-10-42 22:53:11 Test Item Value Reference Range Interpretation Comments SARS-CoV-2 (COVID-19) RNA Not detected Not-Detected [Presence] in Respiratory specimen by DIPTI with probe detection (test code = 15370-5) TAWANA DALTON VKOBZKTIFGPKYC7742-11-68 20:36:00 Test Item Value Reference Range Interpretation Comments PT (test code = PT) 14.3 s 12.0-14.7 [facility] CenterDeupoitFZYKYCVCRW9544-20-28 20:36:00 Test Item Value Reference Range Interpretation Comments INR (test code = INR) 1.11 1 0.85-1.17 [facility] CenterEucoebfZSUEGULVSP6350-58-39 20:36:00 Test Item Value Reference Range Interpretation Comments PTT (test code = PTT) 94.8 s 22.9-35.8 [facility] CenterGnnkhhzIXDVBLRNXS3548-17-37 20:36:00 Test Item Value Reference Range Interpretation Comments PT (test code = PT) 14.3 s 12.0-14.7 [facility] CenterUaslhdqDKTQSUTPNR2954-67-50 20:36:00 Test Item Value Reference Range Interpretation Comments INR (test code = INR) 1.11 1 0.85-1.17 [facility] CenterSzrjkdpXFNWLJDFTH2420-44-85 20:36:00 Test Item Value Reference Range Interpretation Comments PTT (test code = PTT) 94.8 s 22.9-35.8 [facility] CenterKdyyrtcPOZYZTKIWT7881-24-06 20:36:00 Test Item Value Reference Range Interpretation Comments PT (test code = PT) 14.3 s 12.0-14.7 [facility] CenterHnjzdyoKJAKMIDMWU4328-56-00 20:36:00 Test Item Value Reference Range Interpretation Comments INR (test code = INR) 1.11 1 0.85-1.17 [facility] CenterBzyskecEZJOTOXPFG2250-76-31 20:36:00 Test Item Value Reference Range Interpretation Comments PTT (test code = PTT) 94.8 s 22.9-35.8 [facility] CenterMhkllmzTPXVPBOKZV8092-71-19 20:36:00 Test Item Value Reference Range Interpretation Comments PT (test code = PT) 14.3 s 12.0-14.7 [facility] CenterIteodbiLVDFSNEGVT6144-01-76 20:36:00 Test Item Value Reference Range Interpretation Comments INR (test code = INR) 1.11 1 0.85-1.17 [facility] CenterLhtewktVYESBXZZCY3203-13-82 20:36:00 Test Item Value Reference Range Interpretation Comments PTT (test code = PTT) 94.8 s 22.9-35.8 [facility] CenterNlctvkqFSUUDCKOSK0810-24-26 20:36:00 Test Item Value Reference Range Interpretation Comments PT (test code = PT) 14.3 s 12.0-14.7 [facility] CenterXitrknvMAGPITGSAQ6677-84-51 20:36:00 Test Item Value Reference Range Interpretation Comments INR (test code = INR) 1.11 1 0.85-1.17 [facility] CenterDnkiwesZPOUGURFWI1676-44-77 20:36:00 Test Item Value Reference Range Interpretation Comments PTT (test code = PTT) 94.8 s 22.9-35.8 [facility] CenterWjznpvgHYWAHZWBCL8591-08-37 14:58:00 Test Item Value Reference Range Interpretation Comments PT (test code = PT) 14.4 s 12.0-14.7 [facility] CenterKipfhlvOPOPDIAHVU7577-20-42 14:58:00 Test Item Value Reference Range Interpretation Comments INR (test code = INR) 1.11 1 0.85-1.17 [facility] CenterFfoizmrPGPHQNHZHW5080-21-66 14:58:00 Test Item Value Reference Range Interpretation Comments PTT (test code = PTT) 86.8 s 22.9-35.8 [facility] CenterTlcueykMXHCZQNBJF5982-07-59 14:58:00 Test Item Value Reference Range Interpretation Comments PT (test code = PT) 14.4 s 12.0-14.7 [facility] CenterXrbmcsyVDVYKXEOND3959-29-12 14:58:00 Test Item Value Reference Range Interpretation Comments INR (test code = INR) 1.11 1 0.85-1.17 [facility] CenterEwzhyhiWAYDITDLVQ6103-04-38 14:58:00 Test Item Value Reference Range Interpretation Comments PTT (test code = PTT) 86.8 s 22.9-35.8 [facility] CenterLevwbeeSXJCTRTRSB6746-78-05 14:58:00 Test Item Value Reference Range Interpretation Comments PT (test code = PT) 14.4 s 12.0-14.7 [facility] CenterHunvxyjTZCCSDWITT3784-24-89 14:58:00 Test Item Value Reference Range Interpretation Comments INR (test code = INR) 1.11 1 0.85-1.17 [facility] TxipwdlZALARCGIPK2804-99-37 14:58:00 Test Item Value Reference Range Interpretation Comments PTT (test code = PTT) 86.8 s 22.9-35.8 [facility]IbfodocKSLPEUOJDE4192-02-58 14:58:00 Test Item Value Reference Range Interpretation Comments PT (test code = PT) 14.4 s 12.0-14.7 [facility] HospitalKtabbksOJTXRCPKLB1636-99-83 14:58:00 Test Item Value Reference Range Interpretation Comments INR (test code = INR) 1.11 1 0.85-1.17 [facility] QitezcpLVYXODGSUX6705-24-60 14:58:00 Test Item Value Reference Range Interpretation Comments PTT (test code = PTT) 86.8 s 22.9-35.8 [facility] HospitalScqumfzJABBJORKLQ0365-65-11 14:58:00 Test Item Value Reference Range Interpretation Comments PT (test code = PT) 14.4 s 12.0-14.7 [facility] HospitalZrfriacVDAFQMZMWH1579-92-04 14:58:00 Test Item Value Reference Range Interpretation Comments INR (test code = INR) 1.11 1 0.85-1.17 [facility] HospitalLkoghpmXSLSJSIPJS2622-78-75 14:58:00 Test Item Value Reference Range Interpretation Comments PTT (test code = PTT) 86.8 s 22.9-35.8 [facility] [employer] NKSFZQA9731-93-29 07:51:00 Test Item Value Reference Range Interpretation Comments ABO/Rh (test code = ABO/Rh) O POS [facility] [employer] [id number] 07:51:00 Test Item Value Reference Range Interpretation Comments Antibody Scrn (test Negative (10/31/19 2:51 code = Antibody Scrn) AM) [facility] [employer] [id number] 07:51:00 Test Item Value Reference Range Interpretation Comments Glucose Lvl (test code = Glucose Lvl) 91 70-99 [facility] [employer] GJZRW1603-14-35 07:51:00 Test Item Value Reference Range Interpretation Comments BUN (test code = BUN) 13 7-22 [facility] [employer] IECOW7521-09-52 07:51:00 Test Item Value Reference Range Interpretation Comments Creatinine Lvl (test code = Creatinine 0.70 0.50-1.40 Lvl) [facility]VLKDU0886-78-73 07:51:00 Test Item Value Reference Range Interpretation Comments Sodium Lvl (test code = Sodium Lvl) 142 135-145 [facility]WEMSE[facility]OSPITALBRWHR4434-93-38 07:51:00 Test Item Value Reference Range Interpretation Comments Potassium Lvl (test code = Potassium 4.0 3.5-5.1 Lvl) [facility]WEM[facility]PITALAMOVA5973-98-74 07:51:00 Test Item Value Reference Range Interpretation Comments Chloride Lvl (test code = Chloride Lvl) 108 95-109 [facility] [address]FXCEU0448-82-97 07:51:00 Test Item Value Reference Range Interpretation Comments CO2 (test code = CO2) 24 24-32 [facility]EM[facility] [address]SQFSM0822-67-98 07:51:00 Test Item Value Reference Range Interpretation Comments Calcium Lvl (test code = Calcium Lvl) 8.5 8.5-10.5 [facility] HospitalZigmo [id number] 07:51:00 Test Item Value Reference Range Interpretation Comments Total Protein (test code = Total 6.6 6.4-8.4 Protein) [facility]ITALQQJUC4703-57-73 07:51:00 Test Item Value Reference Range Interpretation Comments Albumin Lvl (test code = Albumin Lvl) 3.0 3.5-5.0 [facility]WEM[facility]OSPITALGWSHH0068-41-30 07:51:00 Test Item Value Reference Range Interpretation Comments ALT (test code = ALT) 16 <=65 [facility]WEMSCH[facility] [address]ITEOM6560-80-33 07:51:00 Test Item Value Reference Range Interpretation Comments AST (test code = AST) 20 <=37 [facility]WEM[facility] HOSPITALLVDCU4002-23-20 07:51:00 Test Item Value Reference Range Interpretation Comments Alk Phos (test code = Alk Phos) 102 39-136 [facility]WEM[facility] HOS[facility]ITALLJUYO1991-98-86 07:51:00 Test Item Value Reference Range Interpretation Comments Bili Total (test code = Bili Total) 0.4 0.2-1.3 [facility]WEMSCH[facility] [address]MIPXS8343-12-49 07:51:00 Test Item Value Reference Range Interpretation Comments AGAP (test code = AGAP) 14.0 10.0-20.0 [facility] HospitalZigmo WIYLV5046-19-36 07:51:00 Test Item Value Reference Range Interpretation Comments B/C Ratio (test code = B/C Ratio) 19 1 6-25 [facility]2020-06-30 07:51:00 Test Item Value Reference Range Interpretation Comments Globulin (test code = Globulin) 3.6 2.7-4.2 [place] 439960-06-30 07:51:00 Test Item Value Reference Range Interpretation Comments A/G Ratio (test code = A/G Ratio) 0.8 1 0.7-1.6 [place] 439960-06-30 07:51:00 Test Item Value Reference Range Interpretation Comments eGFR (test code = eGFR) 91 [facility] CenterJwrnoncULVVHLEAUK4160-36-67 07:51:00 Test Item Value Reference Range Interpretation Comments WBC (test code = WBC) 8.0 3.7-10.4 [place] 248830-06-30 07:51:00 Test Item Value Reference Range Interpretation Comments RBC (test code = RBC) 3.97 4.20-5.40 [place] 248830-06-30 07:51:00 Test Item Value Reference Range Interpretation Comments Hgb (test code = Hgb) 12.5 12.0-16.0 [place] 248830-06-30 07:51:00 Test Item Value Reference Range Interpretation Comments Hct (test code = Hct) 37.6 36.0-48.0 [place] 248830-06-30 07:51:00 Test Item Value Reference Range Interpretation Comments MCV (test code = MCV) 94.8 80.0-98.0 [place] [address]-06-30 07:51:00 Test Item Value Reference Range Interpretation Comments MCH (test code = MCH) 31.4 pg 27.0-31.0 [place] [address]-06-30 07:51:00 Test Item Value Reference Range Interpretation Comments MCHC (test code = MCHC) 33.1 32.0-36.0 [place] 248830-06-30 07:51:00 Test Item Value Reference Range Interpretation Comments RDW (test code = RDW) 13.0 11.5-14.5 [place] 248830-06-30 07:51:00 Test Item Value Reference Range Interpretation Comments Platelet (test code = Platelet) 229 133-450 [facility] CenterNwqxmnyAOIQRDNYBH1091-49-55 07:51:00 Test Item Value Reference Range Interpretation Comments MPV (test code = MPV) 8.8 7.4-10.4 [facility] CenterBrfcvhaULAMXWURAI6843-11-74 07:51:00 Test Item Value Reference Range Interpretation Comments PT (test code = PT) 14.2 s 12.0-14.7 [facility] CenterTzzsufzLYDJHYJSVY3287-53-56 07:51:00 Test Item Value Reference Range Interpretation Comments INR (test code = INR) 1.10 1 0.85-1.17 [facility] CenterXjnutryPAQAAEEODK8259-55-34 07:51:00 Test Item Value Reference Range Interpretation Comments PTT (test code = PTT) 64.7 s 22.9-35.8 [facility] CenterQqyggngJJLYRAKRXO2640-00-56 07:51:00 Test Item Value Reference Range Interpretation Comments Segs (test code = Segs) 63.4 45.0-75.0 [facility] CenterRektwalCWNHDZFGWX6060-45-13 07:51:00 Test Item Value Reference Range Interpretation Comments Lymphocytes (test code = Lymphocytes) 26.0 20.0-40.0 [facility] CenterNeeizetPFMXCHTUAD5939-44-09 07:51:00 Test Item Value Reference Range Interpretation Comments Monocytes (test code = Monocytes) 8.5 2.0-12.0 [facility] CenterMmcqlbxLXJJNGKYNS1954-99-15 07:51:00 Test Item Value Reference Range Interpretation Comments Eosinophils (test code = Eosinophils) 1.6 <=4.0 [facility] CenterIfbthpjIJEVLLJHCJ9099-66-35 07:51:00 Test Item Value Reference Range Interpretation Comments Basophils (test code = Basophils) 0.5 <=1.0 [place] 248830-06-30 07:51:00 Test Item Value Reference Range Interpretation Comments Neutrophils # (test code = Neutrophils 5.1 1.5-8.1 #) [facility] CenterSxofpnyFYKOYOJZJB7760-57-11 07:51:00 Test Item Value Reference Range Interpretation Comments Lymphocytes # (test code = Lymphocytes 2.1 1.0-5.5 #) [facility] CenterRbxbtbnHNWWIHRMAA3191-95-01 07:51:00 Test Item Value Reference Range Interpretation Comments Monocytes # (test code = Monocytes #) 0.7 <=0.8 [place] [address]-06-30 07:51:00 Test Item Value Reference Range Interpretation Comments Eosinophils # (test code = Eosinophils 0.1 <=0.5 #) [facility] CXPPKLY2172-07-52 07:51:00 Test Item Value Reference Range Interpretation Comments ABO/Rh (test code = ABO/Rh) O POS [facility]Psych[facility] RXGUDKF2906-86-04 07:51:00 Test Item Value Reference Range Interpretation Comments Antibody Scrn (test Negative (10/31/19 2:51 code = Antibody Scrn) AM) [facility]Zig[facility] [id number] 07:51:00 Test Item Value Reference Range Interpretation Comments Glucose Lvl (test code = Glucose Lvl) 91 70-99 [facility] [employer] [id number] 07:51:00 Test Item Value Reference Range Interpretation Comments BUN (test code = BUN) 13 7-22 [facility] ZXBWT6701-32-23 07:51:00 Test Item Value Reference Range Interpretation Comments Creatinine Lvl (test code = Creatinine 0.70 0.50-1.40 Lvl) [facility] [employer] [id number] 07:51:00 Test Item Value Reference Range Interpretation Comments Sodium Lvl (test code = Sodium Lvl) 142 135-145 [facility] [employer] RWEIR1431-06-47 07:51:00 Test Item Value Reference Range Interpretation Comments Potassium Lvl (test code = Potassium 4.0 3.5-5.1 Lvl) [facility] [employer] [id number] 07:51:00 Test Item Value Reference Range Interpretation Comments Chloride Lvl (test code = Chloride Lvl) 108 95-109 [facility] [employer] [id number] 07:51:00 Test Item Value Reference Range Interpretation Comments CO2 (test code = CO2) 24 24-32 [facility] [id number] 07:51:00 Test Item Value Reference Range Interpretation Comments Calcium Lvl (test code = Calcium Lvl) 8.5 8.5-10.5 [facility] ZPYJZ5974-96-48 07:51:00 Test Item Value Reference Range Interpretation Comments Total Protein (test code = Total 6.6 6.4-8.4 Protein) [facility] [id number] 07:51:00 Test Item Value Reference Range Interpretation Comments Albumin Lvl (test code = Albumin Lvl) 3.0 3.5-5.0 [facility] [employer]2020-06-30 07:51:00 Test Item Value Reference Range Interpretation Comments ALT (test code = ALT) 16 See_Comment [Auto mated message] The system which ge nerated this result transmit nisa reference range : <=65. The reference range was not used to interpr et this result as donya l/abnormal. [facility]2020-06-30 07:51:00 Test Item Value Reference Range Interpretation Comments AST (test code = AST) 20 See_Comment [Auto mated message] The system which ge nerated this result transmit nisa reference range : <=37. The reference range was not used to interpr et this result as donya l/abnormal. [employer]2020-06-30 07:51:00 Test Item Value Reference Range Interpretation Comments Alk Phos (test code = Alk Phos) 102 39-136 [facility] [employer]2020-06-30 07:51:00 Test Item Value Reference Range Interpretation Comments Bili Total (test code = Bili Total) 0.4 0.2-1.3 [facility] [employer]2020-06-30 07:51:00 Test Item Value Reference Range Interpretation Comments AGAP (test code = AGAP) 14.0 10.0-20.0 [facility] [employer]2020-06-30 07:51:00 Test Item Value Reference Range Interpretation Comments B/C Ratio (test code = B/C Ratio) 19 1 6-25 [facility] [employer]2020-06-30 07:51:00 Test Item Value Reference Range Interpretation Comments Globulin (test code = Globulin) 3.6 2.7-4.2 [facility] [employer]0-06-30 07:51:00 Test Item Value Reference Range Interpretation Comments A/G Ratio (test code = A/G Ratio) 0.8 1 0.7-1.6 [facility] [employer]0-06-30 07:51:00 Test Item Value Reference Range Interpretation Comments eGFR (test code = eGFR) 91 [facility] QuhjzjpZPJRWHBUXS7768-95-33 07:51:00 Test Item Value Reference Range Interpretation Comments WBC (test code = WBC) 8.0 3.7-10.4 [facility] NifavezKWVUPMCKJF7078-09-06 07:51:00 Test Item Value Reference Range Interpretation Comments RBC (test code = RBC) 3.97 4.20-5.40 [place] 248830-06-30 07:51:00 Test Item Value Reference Range Interpretation Comments Hgb (test code = Hgb) 12.5 12.0-16.0 [place] 248830-06-30 07:51:00 Test Item Value Reference Range Interpretation Comments Hct (test code = Hct) 37.6 36.0-48.0 [place] 248830-06-30 07:51:00 Test Item Value Reference Range Interpretation Comments MCV (test code = MCV) 94.8 80.0-98.0 [place] 248830-06-30 07:51:00 Test Item Value Reference Range Interpretation Comments MCH (test code = MCH) 31.4 pg 27.0-31.0 [place] 248830-06-30 07:51:00 Test Item Value Reference Range Interpretation Comments MCHC (test code = MCHC) 33.1 32.0-36.0 [facility] CenterXxxbveaGXBNTOOMVC7971-61-77 07:51:00 Test Item Value Reference Range Interpretation Comments RDW (test code = RDW) 13.0 11.5-14.5 [place] [address]-06-30 07:51:00 Test Item Value Reference Range Interpretation Comments Platelet (test code = Platelet) 229 133-450 [facility] CenterFghgdmqBTAFADGYPW7687-53-12 07:51:00 Test Item Value Reference Range Interpretation Comments MPV (test code = MPV) 8.8 7.4-10.4 [place] [address]-06-30 07:51:00 Test Item Value Reference Range Interpretation Comments PT (test code = PT) 14.2 s 12.0-14.7 [place] [address]-06-30 07:51:00 Test Item Value Reference Range Interpretation Comments INR (test code = INR) 1.10 1 0.85-1.17 [place] 248830-06-30 07:51:00 Test Item Value Reference Range Interpretation Comments PTT (test code = PTT) 64.7 s 22.9-35.8 [place] [address]-06-30 07:51:00 Test Item Value Reference Range Interpretation Comments Segs (test code = Segs) 63.4 45.0-75.0 [place] 248830-06-30 07:51:00 Test Item Value Reference Range Interpretation Comments Lymphocytes (test code = Lymphocytes) 26.0 20.0-40.0 [place] 248830-06-30 07:51:00 Test Item Value Reference Range Interpretation Comments Monocytes (test code = Monocytes) 8.5 2.0-12.0 [place] 248830-06-30 07:51:00 Test Item Value Reference Range Interpretation Comments Eosinophils (test code = 1.6 See_Comment [A utomated message] The Eosinophils) system which ge nerated this result tra nsmitted reference range : <=4.0. The reference r ana was not used to int erpret this result as normal/abnormal . [place] 248830-06-30 07:51:00 Test Item Value Reference Range Interpretation Comments Basophils (test code = 0.5 See_Comment [Aut omated message] The Basophils) system which ge nerated this result tra nsmitted reference range : <=1.0. The reference r ana was not used to int erpret this result as normal/abnormal . [facility] CenterUybgjvgAYKTNJVMKE9936-81-39 07:51:00 Test Item Value Reference Range Interpretation Comments Neutrophils # (test code = Neutrophils 5.1 1.5-8.1 #) [place] 248830-06-30 07:51:00 Test Item Value Reference Range Interpretation Comments Lymphocytes # (test code = Lymphocytes 2.1 1.0-5.5 #) [place] 248830-06-30 07:51:00 Test Item Value Reference Range Interpretation Comments Monocytes # (test code 0.7 See_Comment [Aut omated message] The = Monocytes #) system which generated this result tra nsmitted reference range : <=0.8. The reference r ana was not used to int erpret this result as normal/abnormal . [facility] CenterKheigjlSRFZVSOPMA5426-18-96 07:51:00 Test Item Value Reference Range Interpretation Comments Eosinophils # (test code 0.1 See_Comment [A utomated message] The = Eosinophils #) system wh h generated this result tra nsmitted reference range : <=0.5. The reference r ana was not used to int erpret this result as normal/abnormal . [facility] [id number] 07:51:00 Test Item Value Reference Range Interpretation Comments ABO/Rh (test code = ABO/Rh) O POS [facility] [employer] [facility] DXFFVZQ2701-36-38 07:51:00 Test Item Value Reference Range Interpretation Comments Antibody Scrn (test Negative (10/31/19 2:51 code = Antibody Scrn) AM) [facility] [employer] [id number] 07:51:00 Test Item Value Reference Range Interpretation Comments Glucose Lvl (test code = Glucose Lvl) 91 70-99 [facility] [employer] OEYUY5475-77-06 07:51:00 Test Item Value Reference Range Interpretation Comments BUN (test code = BUN) 13 7-22 [facility] [employer] [id number] 07:51:00 Test Item Value Reference Range Interpretation Comments Creatinine Lvl (test code = Creatinine 0.70 0.50-1.40 Lvl) [facility] [employer] [id number] 07:51:00 Test Item Value Reference Range Interpretation Comments Sodium Lvl (test code = Sodium Lvl) 142 135-145 [facility] [employer] [id number] 07:51:00 Test Item Value Reference Range Interpretation Comments Potassium Lvl (test code = Potassium 4.0 3.5-5.1 Lvl) [facility] [employer] [id number] 07:51:00 Test Item Value Reference Range Interpretation Comments Chloride Lvl (test code = Chloride Lvl) 108 95-109 [facility] [employer] [id number] 07:51:00 Test Item Value Reference Range Interpretation Comments CO2 (test code = CO2) 24 24-32 [facility] [employer] [id number] 07:51:00 Test Item Value Reference Range Interpretation Comments Calcium Lvl (test code = Calcium Lvl) 8.5 8.5-10.5 [facility] [employer]2020-06-30 07:51:00 Test Item Value Reference Range Interpretation Comments Total Protein (test code = Total 6.6 6.4-8.4 Protein) [facility] [employer] [id number] 07:51:00 Test Item Value Reference Range Interpretation Comments Albumin Lvl (test code = Albumin Lvl) 3.0 3.5-5.0 [facility]2020-06-30 07:51:00 Test Item Value Reference Range Interpretation Comments ALT (test code = ALT) 16 See_Comment [Auto mated message] The system which ge nerated this result transmit nisa reference range : <=65. The reference range was not used to interpr et this result as donya l/abnormal. [employer] [id number] 07:51:00 Test Item Value Reference Range Interpretation Comments AST (test code = AST) 20 See_Comment [Auto mated message] The system which ge nerated this result transmit nisa reference range : <=37. The reference range was not used to interpr et this result as donya l/abnormal. [place]0-06-30 07:51:00 Test Item Value Reference Range Interpretation Comments Alk Phos (test code = Alk Phos) 102 39-136 [facility] [employer]2020-06-30 07:51:00 Test Item Value Reference Range Interpretation Comments Bili Total (test code = Bili Total) 0.4 0.2-1.3 [facility] [employer]2020-06-30 07:51:00 Test Item Value Reference Range Interpretation Comments AGAP (test code = AGAP) 14.0 10.0-20.0 [facility]2020-06-30 07:51:00 Test Item Value Reference Range Interpretation Comments B/C Ratio (test code = B/C Ratio) 19 1 6-25 [facility] [employer]2020-06-30 07:51:00 Test Item Value Reference Range Interpretation Comments Globulin (test code = Globulin) 3.6 2.7-4.2 [facility] [employer]2020-06-30 07:51:00 Test Item Value Reference Range Interpretation Comments A/G Ratio (test code = A/G Ratio) 0.8 1 0.7-1.6 [place]0-06-30 07:51:00 Test Item Value Reference Range Interpretation Comments eGFR (test code = eGFR) 91 [facility] PvljfwuCEONTVBHSX3043-13-12 07:51:00 Test Item Value Reference Range Interpretation Comments WBC (test code = WBC) 8.0 3.7-10.4 [facility] ZyuuiulVCYNSZVKIT5359-80-36 07:51:00 Test Item Value Reference Range Interpretation Comments RBC (test code = RBC) 3.97 4.20-5.40 [facility] CenterCcnyemoMGGBDNNDFL7933-39-41 07:51:00 Test Item Value Reference Range Interpretation Comments Hgb (test code = Hgb) 12.5 12.0-16.0 [facility] CenterUuaxnpwAEUNWFAZDZ3039-06-33 07:51:00 Test Item Value Reference Range Interpretation Comments Hct (test code = Hct) 37.6 36.0-48.0 [facility] CenterMlclrudYMRIBNTJCP5919-90-83 07:51:00 Test Item Value Reference Range Interpretation Comments MCV (test code = MCV) 94.8 80.0-98.0 [facility] CenterIgbtcgnARLETCWCOO8678-98-35 07:51:00 Test Item Value Reference Range Interpretation Comments MCH (test code = MCH) 31.4 pg 27.0-31.0 [facility]FhgcdgbTFFXPHRSVF2776-88-75 07:51:00 Test Item Value Reference Range Interpretation Comments MCHC (test code = MCHC) 33.1 32.0-36.0 [facility] CenterUuqsjqgGYEIGLSFDB5668-11-26 07:51:00 Test Item Value Reference Range Interpretation Comments RDW (test code = RDW) 13.0 11.5-14.5 [facility] CenterMnjyausFCXGIEQIZY4104-38-44 07:51:00 Test Item Value Reference Range Interpretation Comments Platelet (test code = Platelet) 229 133-450 [facility] CenterEbkvmdjHBSNPGRDNR2690-00-27 07:51:00 Test Item Value Reference Range Interpretation Comments MPV (test code = MPV) 8.8 7.4-10.4 [facility] CenterEakfkkjWVLKUZBVRM2918-77-40 07:51:00 Test Item Value Reference Range Interpretation Comments PT (test code = PT) 14.2 s 12.0-14.7 [facility] CenterQgdmkahHBSDXTOXUI5668-81-58 07:51:00 Test Item Value Reference Range Interpretation Comments INR (test code = INR) 1.10 1 0.85-1.17 [facility] CenterKhwczcmOJPTZYSXUT0204-31-74 07:51:00 Test Item Value Reference Range Interpretation Comments PTT (test code = PTT) 64.7 s 22.9-35.8 [facility] CenterKkpmrnfDFDIZZZPNZ6771-24-35 07:51:00 Test Item Value Reference Range Interpretation Comments Segs (test code = Segs) 63.4 45.0-75.0 [facility] CenterRhtgocdBNGBZVRQPH3439-40-63 07:51:00 Test Item Value Reference Range Interpretation Comments Lymphocytes (test code = Lymphocytes) 26.0 20.0-40.0 [facility] CenterJqxjeutHLXYKAEMBV4718-44-37 07:51:00 Test Item Value Reference Range Interpretation Comments Monocytes (test code = Monocytes) 8.5 2.0-12.0 [facility] CenterToheviiZCLUMDLITP7294-91-87 07:51:00 Test Item Value Reference Range Interpretation Comments Eosinophils (test code = 1.6 See_Comment [A utomated message] The Eosinophils) system which ge nerated this result tra nsmitted reference range : <=4.0. The reference r ana was not used to int erpret this result as normal/abnormal . [facility] CenterTyacxeaUWXWXVMBGN7912-32-25 07:51:00 Test Item Value Reference Range Interpretation Comments Basophils (test code = 0.5 See_Comment [Aut omated message] The Basophils) system which ge nerated this result tra nsmitted reference range : <=1.0. The reference r ana was not used to int erpret this result as normal/abnormal . [facility] CenterZldcsuzEWXSNZAAWV4010-79-77 07:51:00 Test Item Value Reference Range Interpretation Comments Neutrophils # (test code = Neutrophils 5.1 1.5-8.1 #) [facility] CenterOdnoabeLVEJHZEJBS1515-66-64 07:51:00 Test Item Value Reference Range Interpretation Comments Lymphocytes # (test code = Lymphocytes 2.1 1.0-5.5 #) [facility] CenterMydgyviVESMBFTTNO5418-55-37 07:51:00 Test Item Value Reference Range Interpretation Comments Monocytes # (test code 0.7 See_Comment [Aut omated message] The = Monocytes #) system which generated this result tra nsmitted reference range : <=0.8. The reference r ana was not used to int erpret this result as normal/abnormal . [facility] CenterCmlomuaDDVBRVLVHM9279-33-37 07:51:00 Test Item Value Reference Range Interpretation Comments Eosinophils # (test code 0.1 See_Comment [A utomated message] The = Eosinophils #) system whic h generated this result tra nsmitted reference range : <=0.5. The reference r ana was not used to int erpret this result as normal/abnormal . [facility] FHRBXQX6449-14-16 07:51:00 Test Item Value Reference Range Interpretation Comments ABO/Rh (test code = ABO/Rh) O POS [facility] [id number] 07:51:00 Test Item Value Reference Range Interpretation Comments Antibody Scrn (test Negative (10/31/19 2:51 code = Antibody Scrn) AM) [facility] [employer] [id number] 07:51:00 Test Item Value Reference Range Interpretation Comments Glucose Lvl (test code = Glucose Lvl) 91 70-99 [facility] [id number] 07:51:00 Test Item Value Reference Range Interpretation Comments BUN (test code = BUN) 13 7-22 [facility] [id number] 07:51:00 Test Item Value Reference Range Interpretation Comments Creatinine Lvl (test code = Creatinine 0.70 0.50-1.40 Lvl) [facility] [id number] 07:51:00 Test Item Value Reference Range Interpretation Comments Sodium Lvl (test code = Sodium Lvl) 142 135-145 [facility] [id number] 07:51:00 Test Item Value Reference Range Interpretation Comments Potassium Lvl (test code = Potassium 4.0 3.5-5.1 Lvl) [facility] [id number] 07:51:00 Test Item Value Reference Range Interpretation Comments Chloride Lvl (test code = Chloride Lvl) 108 95-109 [facility] [id number] 07:51:00 Test Item Value Reference Range Interpretation Comments CO2 (test code = CO2) 24 24-32 [facility] [id number] 07:51:00 Test Item Value Reference Range Interpretation Comments Calcium Lvl (test code = Calcium Lvl) 8.5 8.5-10.5 [facility] [id number] 07:51:00 Test Item Value Reference Range Interpretation Comments Total Protein (test code = Total 6.6 6.4-8.4 Protein) [facility] [id number] 07:51:00 Test Item Value Reference Range Interpretation Comments Albumin Lvl (test code = Albumin Lvl) 3.0 3.5-5.0 [facility] [id number] 07:51:00 Test Item Value Reference Range Interpretation Comments ALT (test code = ALT) 16 See_Comment [Auto mated message] The system which ge nerated this result transmit nisa reference range : <=65. The reference range was not used to interpr et this result as donya l/abnormal. [facility] [id number] 07:51:00 Test Item Value Reference Range Interpretation Comments AST (test code = AST) 20 See_Comment [Auto mated message] The system which ge nerated this result transmit nisa reference range : <=37. The reference range was not used to interpr et this result as donya l/abnormal. [facility] [id number] 07:51:00 Test Item Value Reference Range Interpretation Comments Alk Phos (test code = Alk Phos) 102 39-136 [facility] [id number] 07:51:00 Test Item Value Reference Range Interpretation Comments Bili Total (test code = Bili Total) 0.4 0.2-1.3 [facility] [id number] 07:51:00 Test Item Value Reference Range Interpretation Comments AGAP (test code = AGAP) 14.0 10.0-20.0 [facility] [id number] 07:51:00 Test Item Value Reference Range Interpretation Comments B/C Ratio (test code = B/C Ratio) 19 1 6-25 [facility] [id number] 07:51:00 Test Item Value Reference Range Interpretation Comments Globulin (test code = Globulin) 3.6 2.7-4.2 [facility] [id number] 07:51:00 Test Item Value Reference Range Interpretation Comments A/G Ratio (test code = A/G Ratio) 0.8 1 0.7-1.6 [facility] [id number] 07:51:00 Test Item Value Reference Range Interpretation Comments eGFR (test code = eGFR) 91 [facility] SqvlnxoUKTDNDGIJT4456-00-77 07:51:00 Test Item Value Reference Range Interpretation Comments WBC (test code = WBC) 8.0 3.7-10.4 [facility] HvuuswzPXKZUMCGQZ2844-78-67 07:51:00 Test Item Value Reference Range Interpretation Comments RBC (test code = RBC) 3.97 4.20-5.40 [facility] XkixqggCAPPPNVVNP5877-86-44 07:51:00 Test Item Value Reference Range Interpretation Comments Hgb (test code = Hgb) 12.5 12.0-16.0 [facility] CenterCnsgmroWNMCNBRWWR7077-20-60 07:51:00 Test Item Value Reference Range Interpretation Comments Hct (test code = Hct) 37.6 36.0-48.0 [facility] CenterKzoqtajLYUIVWCUYU1632-87-45 07:51:00 Test Item Value Reference Range Interpretation Comments MCV (test code = MCV) 94.8 80.0-98.0 [facility] CenterQaivlreMQGFHMEFXQ9168-94-11 07:51:00 Test Item Value Reference Range Interpretation Comments MCH (test code = MCH) 31.4 pg 27.0-31.0 [facility] CenterUclqclaPVTQQJSJNM7335-14-45 07:51:00 Test Item Value Reference Range Interpretation Comments MCHC (test code = MCHC) 33.1 32.0-36.0 [facility] CenterCyqmbhtSCHRRXUGYZ8907-77-02 07:51:00 Test Item Value Reference Range Interpretation Comments RDW (test code = RDW) 13.0 11.5-14.5 [facility] CenterQnhtjgbYVPQAAIXEE6357-54-22 07:51:00 Test Item Value Reference Range Interpretation Comments Platelet (test code = Platelet) 229 133-450 [facility] CenterVqaysvkBTDXUPIVUX6043-59-99 07:51:00 Test Item Value Reference Range Interpretation Comments MPV (test code = MPV) 8.8 7.4-10.4 [place] [address]-06-30 07:51:00 Test Item Value Reference Range Interpretation Comments PT (test code = PT) 14.2 s 12.0-14.7 [place] [address]-06-30 07:51:00 Test Item Value Reference Range Interpretation Comments INR (test code = INR) 1.10 1 0.85-1.17 [place] 248830-06-30 07:51:00 Test Item Value Reference Range Interpretation Comments PTT (test code = PTT) 64.7 s 22.9-35.8 [place] 248830-06-30 07:51:00 Test Item Value Reference Range Interpretation Comments Segs (test code = Segs) 63.4 45.0-75.0 [facility] CenterQexgdxxQWKKSNKJQM9399-62-84 07:51:00 Test Item Value Reference Range Interpretation Comments Lymphocytes (test code = Lymphocytes) 26.0 20.0-40.0 [facility] CenterDpcwyboZNDQQUUUTZ6988-67-30 07:51:00 Test Item Value Reference Range Interpretation Comments Monocytes (test code = Monocytes) 8.5 2.0-12.0 [facility] CenterYazzmtnMCBJVHSAOE9960-40-99 07:51:00 Test Item Value Reference Range Interpretation Comments Eosinophils (test code = 1.6 See_Comment [A utomated message] The Eosinophils) system which ge nerated this result tra nsmitted reference range : <=4.0. The reference r ana was not used to int erpret this result as normal/abnormal . [facility] CenterAmcifklHIAWYXQWJZ5047-68-20 07:51:00 Test Item Value Reference Range Interpretation Comments Basophils (test code = 0.5 See_Comment [Aut omated message] The Basophils) system which ge nerated this result tra nsmitted reference range : <=1.0. The reference r ana was not used to int erpret this result as normal/abnormal . [facility] CenterEhlqxhaOBHNVZUJEU6257-19-79 07:51:00 Test Item Value Reference Range Interpretation Comments Neutrophils # (test code = Neutrophils 5.1 1.5-8.1 #) [facility] CenterMlzsehaPHSGERJQZO8372-43-78 07:51:00 Test Item Value Reference Range Interpretation Comments Lymphocytes # (test code = Lymphocytes 2.1 1.0-5.5 #) [facility] CenterTyokhtqMNBQMBKUYV2372-73-92 07:51:00 Test Item Value Reference Range Interpretation Comments Monocytes # (test code 0.7 See_Comment [Aut omated message] The = Monocytes #) system which generated this result tra nsmitted reference range : <=0.8. The reference r ana was not used to int erpret this result as normal/abnormal . [facility] CenterXdarjzsBWSYDASIHX9849-33-22 07:51:00 Test Item Value Reference Range Interpretation Comments Eosinophils # (test code 0.1 See_Comment [A utomated message] The = Eosinophils #) system whic h generated this result tra nsmitted reference range : <=0.5. The reference r ana was not used to int erpret this result as normal/abnormal . [facility] [id number] 07:51:00 Test Item Value Reference Range Interpretation Comments ABO/Rh (test code = ABO/Rh) O POS [facility] [id number] 07:51:00 Test Item Value Reference Range Interpretation Comments Antibody Scrn (test Negative (10/31/19 2:51 code = Antibody Scrn) AM) [facility]2020-06-30 07:51:00 Test Item Value Reference Range Interpretation Comments Glucose Lvl (test code = Glucose Lvl) 91 70-99 [facility]2020-06-30 07:51:00 Test Item Value Reference Range Interpretation Comments BUN (test code = BUN) 13 7-22 [facility]2020-06-30 07:51:00 Test Item Value Reference Range Interpretation Comments Creatinine Lvl (test code = Creatinine 0.70 0.50-1.40 Lvl) [facility]2020-06-30 07:51:00 Test Item Value Reference Range Interpretation Comments Sodium Lvl (test code = Sodium Lvl) 142 135-145 [facility]2020-06-30 07:51:00 Test Item Value Reference Range Interpretation Comments Potassium Lvl (test code = Potassium 4.0 3.5-5.1 Lvl) [facility]2020-06-30 07:51:00 Test Item Value Reference Range Interpretation Comments Chloride Lvl (test code = Chloride Lvl) 108 95-109 [facility]2020-06-30 07:51:00 Test Item Value Reference Range Interpretation Comments CO2 (test code = CO2) 24 24-32 [facility]2020-06-30 07:51:00 Test Item Value Reference Range Interpretation Comments Calcium Lvl (test code = Calcium Lvl) 8.5 8.5-10.5 [facility]2020-06-30 07:51:00 Test Item Value Reference Range Interpretation Comments Total Protein (test code = Total 6.6 6.4-8.4 Protein) [facility]2020-06-30 07:51:00 Test Item Value Reference Range Interpretation Comments Albumin Lvl (test code = Albumin Lvl) 3.0 3.5-5.0 [facility]2020-06-30 07:51:00 Test Item Value Reference Range Interpretation Comments ALT (test code = ALT) 16 See_Comment [Auto mated message] The system which ge nerated this result transmit nisa reference range : <=65. The reference range was not used to interpr et this result as donya l/abnormal. [facility] [employer] [id number] 07:51:00 Test Item Value Reference Range Interpretation Comments AST (test code = AST) 20 See_Comment [Auto mated message] The system which ge nerated this result transmit nisa reference range : <=37. The reference range was not used to interpr et this result as donya l/abnormal. [facility] [employer] [id number] 07:51:00 Test Item Value Reference Range Interpretation Comments Alk Phos (test code = Alk Phos) 102 39-136 [facility] [id number] 07:51:00 Test Item Value Reference Range Interpretation Comments Bili Total (test code = Bili Total) 0.4 0.2-1.3 [facility] [id number] 07:51:00 Test Item Value Reference Range Interpretation Comments AGAP (test code = AGAP) 14.0 10.0-20.0 [facility] [id number] 07:51:00 Test Item Value Reference Range Interpretation Comments B/C Ratio (test code = B/C Ratio) 19 1 6-25 [facility] [id number] 07:51:00 Test Item Value Reference Range Interpretation Comments Globulin (test code = Globulin) 3.6 2.7-4.2 [facility] [id number] 07:51:00 Test Item Value Reference Range Interpretation Comments A/G Ratio (test code = A/G Ratio) 0.8 1 0.7-1.6 [facility] [id number] 07:51:00 Test Item Value Reference Range Interpretation Comments eGFR (test code = eGFR) 91 [facility] 07:51:00 Test Item Value Reference Range Interpretation Comments WBC (test code = WBC) 8.0 3.7-10.4 [facility]YjmmqrrFNQIOQUPMI5703-99-37 07:51:00 Test Item Value Reference Range Interpretation Comments RBC (test code = RBC) 3.97 4.20-5.40 [facility] HospitalFicljwnWFOQYMLXIS1637-31-26 07:51:00 Test Item Value Reference Range Interpretation Comments Hgb (test code = Hgb) 12.5 12.0-16.0 [facility] CenterWpwnmeeJBOVAKHSIK6194-62-40 07:51:00 Test Item Value Reference Range Interpretation Comments Hct (test code = Hct) 37.6 36.0-48.0 [facility] CenterFbubuxaYUNZTDKXMG8900-84-46 07:51:00 Test Item Value Reference Range Interpretation Comments MCV (test code = MCV) 94.8 80.0-98.0 [facility] CenterPviyxkdUNYIJVCKVQ0362-05-64 07:51:00 Test Item Value Reference Range Interpretation Comments MCH (test code = MCH) 31.4 pg 27.0-31.0 [facility] CenterFzuuredAQGLWZMLZS2727-56-79 07:51:00 Test Item Value Reference Range Interpretation Comments MCHC (test code = MCHC) 33.1 32.0-36.0 [facility] CenterFgjspoeXMEBJAOJQF0139-64-41 07:51:00 Test Item Value Reference Range Interpretation Comments RDW (test code = RDW) 13.0 11.5-14.5 [facility] CenterRlyfslgAGKPOIYWZA5911-83-65 07:51:00 Test Item Value Reference Range Interpretation Comments Platelet (test code = Platelet) 229 133-450 [facility] CenterRgerkeuYOUVISCYBL6822-52-10 07:51:00 Test Item Value Reference Range Interpretation Comments MPV (test code = MPV) 8.8 7.4-10.4 [facility] CenterBnvfvyxBVSYUHLOYP7125-86-00 07:51:00 Test Item Value Reference Range Interpretation Comments PT (test code = PT) 14.2 s 12.0-14.7 [facility] CenterEtyztdoXMAKBJCIAR0001-21-19 07:51:00 Test Item Value Reference Range Interpretation Comments INR (test code = INR) 1.10 1 0.85-1.17 [facility] CenterObhkefdLWZFJBDACJ4669-50-40 07:51:00 Test Item Value Reference Range Interpretation Comments PTT (test code = PTT) 64.7 s 22.9-35.8 [facility] CenterDjhhbwxWOEMFAGDQB9057-80-88 07:51:00 Test Item Value Reference Range Interpretation Comments Segs (test code = Segs) 63.4 45.0-75.0 [facility] CenterZlhxfahDCYHAZLPII1824-53-09 07:51:00 Test Item Value Reference Range Interpretation Comments Lymphocytes (test code = Lymphocytes) 26.0 20.0-40.0 [place] [address]-06-30 07:51:00 Test Item Value Reference Range Interpretation Comments Monocytes (test code = Monocytes) 8.5 2.0-12.0 [facility] CenterEgqcdttAGCWKUQATY5331-37-06 07:51:00 Test Item Value Reference Range Interpretation Comments Eosinophils (test code = 1.6 See_Comment [A utomated message] The Eosinophils) system which ge nerated this result tra nsmitted reference range : <=4.0. The reference r ana was not used to int erpret this result as normal/abnormal . [facility] CenterZdscjyzYGRPYMDGTR0629-19-97 07:51:00 Test Item Value Reference Range Interpretation Comments Basophils (test code = 0.5 See_Comment [Aut omated message] The Basophils) system which ge nerated this result tra nsmitted reference range : <=1.0. The reference r ana was not used to int erpret this result as normal/abnormal . [facility] CenterRczntwdQJBKDOKBSZ9060-15-21 07:51:00 Test Item Value Reference Range Interpretation Comments Neutrophils # (test code = Neutrophils 5.1 1.5-8.1 #) [facility] CenterChkalwxYXQWGTVXNC6243-72-74 07:51:00 Test Item Value Reference Range Interpretation Comments Lymphocytes # (test code = Lymphocytes 2.1 1.0-5.5 #) [facility] CenterGlpwmujSHFIPXXMWT8450-95-91 07:51:00 Test Item Value Reference Range Interpretation Comments Monocytes # (test code 0.7 See_Comment [Aut omated message] The = Monocytes #) system which generated this result tra nsmitted reference range : <=0.8. The reference r ana was not used to int erpret this result as normal/abnormal . [facility] CenterMrrypmbLHIIMTGBZF3543-67-32 07:51:00 Test Item Value Reference Range Interpretation Comments Eosinophils # (test code 0.1 See_Comment [A utomated message] The = Eosinophils #) system whic h generated this result tra nsmitted reference range : <=0.5. The reference r ana was not used to int erpret this result as normal/abnormal . [facility] CenterXmonxzvPLZCBOEMLC1595-65-05 18:52:00 Test Item Value Reference Range Interpretation Comments Sed Rate (test code = Sed Rate) 2 [facility] CenterVofjcyrUERSMXALDH3613-92-38 18:52:00 Test Item Value Reference Range Interpretation Comments SS-A (Ro) Ab (test code = SS-A (Ro) <1.0 NEG Ab) [facility] CenterZrfrsxsPKWIYOXGSG0426-86-63 18:52:00 Test Item Value Reference Range Interpretation Comments SS-B (La) Ab (test code = SS-B (La) <1.0 NEG Ab) [facility] CenterDbtdjzhLHLNWNJWBM3899-77-62 18:52:00 Test Item Value Reference Range Interpretation Comments Varicella IgG (test code = Varicella 775.20 IgG) [facility] CenterDxphdqtOKSOUNVPZN7330-85-63 18:52:00 Test Item Value Reference Range Interpretation Comments EBV VCA IgM (test code = EBV VCA IgM) 62.60 [facility] CenterDhwuehwYPMKDZXPKJ5783-92-00 18:52:00 Test Item Value Reference Range Interpretation Comments ANGIOTENSIN CONVERTING ENZYME (test code = ANGIOTENSIN CONVERTING ENZYME) [facility] CenterHqkfozwWYCFSEYYLE9805-02-52 18:52:00 Test Item Value Reference Range Interpretation Comments Varicella IgM (test code = Varicella 0.69 1 IgM) [facility] CenterIvwsmrlAEHQWJYCZV3963-16-99 18:52:00 Test Item Value Reference Range Interpretation Comments Sed Rate (test code = Sed Rate) 2 [facility] CenterJndenyyQBIRLWACGI5766-93-20 18:52:00 Test Item Value Reference Range Interpretation Comments SS-A (Ro) Ab (test code = SS-A (Ro) <1.0 NEG Ab) [facility] CenterIyszgwnFSTHVKAOKJ7557-46-08 18:52:00 Test Item Value Reference Range Interpretation Comments SS-B (La) Ab (test code = SS-B (La) <1.0 NEG Ab) [facility] CenterSeefziqYEDNSRLQAV6236-90-01 18:52:00 Test Item Value Reference Range Interpretation Comments Varicella IgG (test code = Varicella 775.20 IgG) [facility] CenterHbpjffqUDGZEWKYBP6566-68-51 18:52:00 Test Item Value Reference Range Interpretation Comments EBV VCA IgM (test code = EBV VCA IgM) 62.60 [facility] CenterRjrfkewMQLTSGHGJL1212-23-26 18:52:00 Test Item Value Reference Range Interpretation Comments ANGIOTENSIN CONVERTING ENZYME (test code = ANGIOTENSIN CONVERTING ENZYME) [facility] CenterXcaroymYHLVJSZFRU0382-23-43 18:52:00 Test Item Value Reference Range Interpretation Comments Varicella IgM (test code = Varicella 0.69 1 IgM) [facility] CenterFntyhetJHLSFLSEZS5580-75-88 18:52:00 Test Item Value Reference Range Interpretation Comments Sed Rate (test code = Sed Rate) 2 [facility] CenterFwyxbwaQCHADDLTEG9852-62-92 18:52:00 Test Item Value Reference Range Interpretation Comments SS-A (Ro) Ab (test code = SS-A (Ro) <1.0 NEG Ab) [facility] CenterObyegnuSLIJWAEWWS8703-33-78 18:52:00 Test Item Value Reference Range Interpretation Comments SS-B (La) Ab (test code = SS-B (La) <1.0 NEG Ab) [facility] CenterFghyiunQSWJPDWYJN4289-59-19 18:52:00 Test Item Value Reference Range Interpretation Comments Varicella IgG (test code = Varicella 775.20 IgG) [facility] CenterKhywergBTRCYSFSET7346-77-71 18:52:00 Test Item Value Reference Range Interpretation Comments EBV VCA IgM (test code = EBV VCA IgM) 62.60 [facility] CenterAtsczufCHUNTFXQLD6302-10-97 18:52:00 Test Item Value Reference Range Interpretation Comments ANGIOTENSIN CONVERTING ENZYME (test 9 9 code = ANGIOTENSIN CONVERTING ENZYME) [facility] CenterEzjaueiKMUAIJWOFO5038-67-95 18:52:00 Test Item Value Reference Range Interpretation Comments Varicella IgM (test code = Varicella 0.69 1 IgM) [facility] CenterEythaxcWPVQPFGNSG3975-45-62 18:52:00 Test Item Value Reference Range Interpretation Comments Sed Rate (test code = Sed Rate) 2 [facility] CenterOhrnhvoJIURRDBNWI5598-16-37 18:52:00 Test Item Value Reference Range Interpretation Comments SS-A (Ro) Ab (test code = SS-A (Ro) <1.0 NEG Ab) [facility] CenterZnavqkuFRVOVZHCDM9999-09-78 18:52:00 Test Item Value Reference Range Interpretation Comments SS-B (La) Ab (test code = SS-B (La) <1.0 NEG Ab) [facility] CenterPzotgxwXKHNJJRXIM6891-70-19 18:52:00 Test Item Value Reference Range Interpretation Comments Varicella IgG (test code = Varicella 775.20 IgG) [facility] CenterUzmcwelYYOIYCYCHT4463-52-71 18:52:00 Test Item Value Reference Range Interpretation Comments EBV VCA IgM (test code = EBV VCA IgM) 62.60 [facility] CenterOqnfcuaDKWAUYNXWT6916-61-74 18:52:00 Test Item Value Reference Range Interpretation Comments ANGIOTENSIN CONVERTING ENZYME (test 9 code = ANGIOTENSIN CONVERTING ENZYME) [facility] [id number] 18:52:00 Test Item Value Reference Range Interpretation Comments Varicella IgM (test code = Varicella 0.69 1 IgM) [facility] CenterFmwpetzCDPXWJNUDU6619-32-02 18:52:00 Test Item Value Reference Range Interpretation Comments Sed Rate (test code = Sed Rate) 2 [facility] CenterInmrmrrCNRPUPDQUM4832-36-09 18:52:00 Test Item Value Reference Range Interpretation Comments SS-A (Ro) Ab (test code = SS-A (Ro) <1.0 NEG Ab) [facility] CenterOfwysyvHIDMCRKNDN6077-32-86 18:52:00 Test Item Value Reference Range Interpretation Comments SS-B (La) Ab (test code = SS-B (La) <1.0 NEG Ab) [facility] CenterIdymhayOSFABPWQBB3248-43-28 18:52:00 Test Item Value Reference Range Interpretation Comments Varicella IgG (test code = Varicella 775.20 IgG) [facility] CenterJvtvyvxXJKDAXWHBI0132-35-97 18:52:00 Test Item Value Reference Range Interpretation Comments EBV VCA IgM (test code = EBV VCA IgM) 62.60 [facility] CenterNdepvnvLUKRUXHAUL0748-71-65 18:52:00 Test Item Value Reference Range Interpretation Comments ANGIOTENSIN CONVERTING ENZYME (test 9 code = ANGIOTENSIN CONVERTING ENZYME) [facility] CenterFxpiklqBSJEALYIZF3605-01-53 18:52:00 Test Item Value Reference Range Interpretation Comments Varicella IgM (test code = Varicella 0.69 1 IgM) [facility] AND [id number] 21:21:00 Test Item Value Reference Range Interpretation Comments UA Blood (test code = Negative (05/06/17 3:21 UA Blood) PM) [facility] AND [id number] 21:21:00 Test Item Value Reference Range Interpretation Comments UA Nitrite (test code Negative (05/06/17 3:21 = UA Nitrite) PM) [facility] AND [id number] 21:21:00 Test Item Value Reference Range Interpretation Comments UA Bili (test code = Negative *NA*(05/06/17 UA Bili) 3:21 PM) [facility] AND [id number] 21:21:00 Test Item Value Reference Range Interpretation Comments UA Leuk Est (test Negative (05/06/17 3:21 code = UA Leuk Est) PM) [facility] AND [id number] 21:21:00 Test Item Value Reference Range Interpretation Comments UA Sq Epi (test code = UA Sq Epi) Few /LPF [facility] AND [id number] 21:21:00 Test Item Value Reference Range Interpretation Comments UA Protein (test code = UA Protein) 30 mg/dL [facility] AND [id number] 21:21:00 Test Item Value Reference Range Interpretation Comments UA Ketones (test code = UA Ketones) 20 mg/dL [facility] AND [id number] 21:21:00 Test Item Value Reference Range Interpretation Comments UA Glucose (test code = UA Negative mg/dL Glucose) [facility] AND [id number] 21:21:00 Test Item Value Reference Range Interpretation Comments UA Urobilinogen (test code = UA <=1.0 mg/dL 0.1-1.0 Urobilinogen) [facility] AND [id number] 21:21:00 Test Item Value Reference Range Interpretation Comments UA RBC (test code = UA RBC) 1 <=2 [facility] AND [id number] 21:21:00 Test Item Value Reference Range Interpretation Comments UA Mucus (test code = UA Mucus) Few /LPF [facility] AND [id number] 21:21:00 Test Item Value Reference Range Interpretation Comments UA WBC (test code = UA WBC) 2 <=5 [facility] AND [id number] 21:21:00 Test Item Value Reference Range Interpretation Comments UA Color (test code = Yellow *NA*(05/06/17 3:21 UA Color) PM) [facility] AND [id number] 21:21:00 Test Item Value Reference Range Interpretation Comments UA Spec Grav (test code = UA Spec Grav) 1.019 [facility] AND [id number] 21:21:00 Test Item Value Reference Range Interpretation Comments UA pH (test code = UA pH) 5.0 5.0-8.0 [facility] AND [id number] 21:21:00 Test Item Value Reference Range Interpretation Comments UA Turbidity (test code Slight *ABN*(05/06/17 = UA Turbidity) 3:21 PM) [facility] AND [id number] 21:21:00 Test Item Value Reference Range Interpretation Comments UA Blood (test code = Negative (05/06/17 3:21 UA Blood) PM) [facility] AND [id number] 21:21:00 Test Item Value Reference Range Interpretation Comments UA Nitrite (test code Negative (05/06/17 3:21 = UA Nitrite) PM) [facility] AND [id number] 21:21:00 Test Item Value Reference Range Interpretation Comments UA Bili (test code = Negative *NA*(05/06/17 UA Bili) 3:21 PM) [facility] AND [id number] 21:21:00 Test Item Value Reference Range Interpretation Comments UA Leuk Est (test Negative (05/06/17 3:21 code = UA Leuk Est) PM) [facility] AND [id number] 21:21:00 Test Item Value Reference Range Interpretation Comments UA Sq Epi (test code = UA Sq Epi) Few /LPF [facility] AND [id number] 21:21:00 Test Item Value Reference Range Interpretation Comments UA Protein (test code = UA Protein) 30 mg/dL [facility] AND [id number] 21:21:00 Test Item Value Reference Range Interpretation Comments UA Ketones (test code = UA Ketones) 20 mg/dL [facility] AND [id number] 21:21:00 Test Item Value Reference Range Interpretation Comments UA Glucose (test code = UA Negative mg/dL Glucose) [facility] AND [id number] 21:21:00 Test Item Value Reference Range Interpretation Comments UA Urobilinogen (test code = UA <=1.0 mg/dL 0.1-1.0 Urobilinogen) [facility] AND [id number] 21:21:00 Test Item Value Reference Range Interpretation Comments UA RBC (test code = 1 See_Comment [Automa nisa message] The UA RBC) system which ge nerated this result transmit nisa reference range : <=2. The reference range was not used to interpr et this result as donya l/abnormal. [facility] AND [id number] 21:21:00 Test Item Value Reference Range Interpretation Comments UA Mucus (test code = UA Mucus) Few /LPF [facility] AND [id number] 21:21:00 Test Item Value Reference Range Interpretation Comments UA WBC (test code = 2 See_Comment [Automa nisa message] The UA WBC) system which ge nerated this result transmit nisa reference range : <=5. The reference range was not used to interpr et this result as donya l/abnormal. [facility] AND [id number] 21:21:00 Test Item Value Reference Range Interpretation Comments UA Color (test code = Yellow *NA*(05/06/17 3:21 UA Color) PM) [facility] AND [id number] 21:21:00 Test Item Value Reference Range Interpretation Comments UA Spec Grav (test code = UA Spec Grav) 1.019 [facility] AND [id number] 21:21:00 Test Item Value Reference Range Interpretation Comments UA pH (test code = UA pH) 5.0 5.0-8.0 [facility] AND [id number] 21:21:00 Test Item Value Reference Range Interpretation Comments UA Turbidity (test code Slight *ABN*(05/06/17 = UA Turbidity) 3:21 PM) [facility] AND [id number] 21:21:00 Test Item Value Reference Range Interpretation Comments UA Blood (test code = Negative (05/06/17 3:21 UA Blood) PM) [facility] AND [id number] 21:21:00 Test Item Value Reference Range Interpretation Comments UA Nitrite (test code Negative (05/06/17 3:21 = UA Nitrite) PM) [facility] AND [id number] 21:21:00 Test Item Value Reference Range Interpretation Comments UA Bili (test code = Negative *NA*(05/06/17 UA Bili) 3:21 PM) [facility] AND [id number] 21:21:00 Test Item Value Reference Range Interpretation Comments UA Leuk Est (test Negative (05/06/17 3:21 code = UA Leuk Est) PM) [facility] AND [id number] 21:21:00 Test Item Value Reference Range Interpretation Comments UA Sq Epi (test code = UA Sq Epi) Few /LPF [facility] AND [id number] 21:21:00 Test Item Value Reference Range Interpretation Comments UA Protein (test code = UA Protein) 30 mg/dL [facility] AND [id number] 21:21:00 Test Item Value Reference Range Interpretation Comments UA Ketones (test code = UA Ketones) 20 mg/dL [facility] AND [id number] 21:21:00 Test Item Value Reference Range Interpretation Comments UA Glucose (test code = UA Negative mg/dL Glucose) [facility] AND [id number] 21:21:00 Test Item Value Reference Range Interpretation Comments UA Urobilinogen (test code = UA <=1.0 mg/dL 0.1-1.0 Urobilinogen) [facility] AND [id number] 21:21:00 Test Item Value Reference Range Interpretation Comments UA RBC (test code = 1 See_Comment [Automa nisa message] The UA RBC) system which ge nerated this result transmit nisa reference range : <=2. The reference range was not used to interpr et this result as donya l/abnormal. [facility] AND [id number] 21:21:00 Test Item Value Reference Range Interpretation Comments UA Mucus (test code = UA Mucus) Few /LPF [facility] AND [id number] 21:21:00 Test Item Value Reference Range Interpretation Comments UA WBC (test code = 2 See_Comment [Automa nisa message] The UA WBC) system which ge nerated this result transmit nisa reference range : <=5. The reference range was not used to interpr et this result as donya l/abnormal. [facility] AND [id number] 21:21:00 Test Item Value Reference Range Interpretation Comments UA Color (test code = Yellow *NA*(05/06/17 3:21 UA Color) PM) [facility] AND [id number] 21:21:00 Test Item Value Reference Range Interpretation Comments UA Spec Grav (test code = UA Spec Grav) 1.019 [facility] AND [id number] 21:21:00 Test Item Value Reference Range Interpretation Comments UA pH (test code = UA pH) 5.0 5.0-8.0 [facility] AND [id number] 21:21:00 Test Item Value Reference Range Interpretation Comments UA Turbidity (test code Slight *ABN*(05/06/17 = UA Turbidity) 3:21 PM) [facility] AND [id number] 21:21:00 Test Item Value Reference Range Interpretation Comments UA Blood (test code = Negative (05/06/17 3:21 UA Blood) PM) [facility] AND [id number] 21:21:00 Test Item Value Reference Range Interpretation Comments UA Nitrite (test code Negative (05/06/17 3:21 = UA Nitrite) PM) [facility] AND [id number] 21:21:00 Test Item Value Reference Range Interpretation Comments UA Bili (test code = Negative *NA*(05/06/17 UA Bili) 3:21 PM) [facility] AND [id number] 21:21:00 Test Item Value Reference Range Interpretation Comments UA Leuk Est (test Negative (05/06/17 3:21 code = UA Leuk Est) PM) [facility] AND [id number] 21:21:00 Test Item Value Reference Range Interpretation Comments UA Sq Epi (test code = UA Sq Epi) Few /LPF [facility] AND [id number] 21:21:00 Test Item Value Reference Range Interpretation Comments UA Protein (test code = UA Protein) 30 mg/dL [facility] AND [id number] 21:21:00 Test Item Value Reference Range Interpretation Comments UA Ketones (test code = UA Ketones) 20 mg/dL [facility] AND [id number] 21:21:00 Test Item Value Reference Range Interpretation Comments UA Glucose (test code = UA Negative mg/dL Glucose) [facility] AND [id number] 21:21:00 Test Item Value Reference Range Interpretation Comments UA Urobilinogen (test code = UA <=1.0 mg/dL 0.1-1.0 Urobilinogen) [facility] AND [id number] 21:21:00 Test Item Value Reference Range Interpretation Comments UA RBC (test code = 1 See_Comment [Automa nisa message] The UA RBC) system which ge nerated this result transmit nisa reference range : <=2. The reference range was not used to interpr et this result as donya l/abnormal. [facility] AND [id number] 21:21:00 Test Item Value Reference Range Interpretation Comments UA Mucus (test code = UA Mucus) Few /LPF [facility] AND [id number] 21:21:00 Test Item Value Reference Range Interpretation Comments UA WBC (test code = 2 See_Comment [Automa nisa message] The UA WBC) system which ge nerated this result transmit nisa reference range : <=5. The reference range was not used to interpr et this result as donya l/abnormal. [facility] AND [id number] 21:21:00 Test Item Value Reference Range Interpretation Comments UA Color (test code = Yellow *NA*(05/06/17 3:21 UA Color) PM) [facility] AND [id number] 21:21:00 Test Item Value Reference Range Interpretation Comments UA Spec Grav (test code = UA Spec Grav) 1.019 [facility] AND [id number] 21:21:00 Test Item Value Reference Range Interpretation Comments UA pH (test code = UA pH) 5.0 5.0-8.0 [facility] AND [id number] 21:21:00 Test Item Value Reference Range Interpretation Comments UA Turbidity (test code Slight *ABN*(05/06/17 = UA Turbidity) 3:21 PM) [facility] AND [id number] 21:21:00 Test Item Value Reference Range Interpretation Comments UA Blood (test code = Negative (05/06/17 3:21 UA Blood) PM) [facility] AND [id number] 21:21:00 Test Item Value Reference Range Interpretation Comments UA Nitrite (test code Negative (05/06/17 3:21 = UA Nitrite) PM) [facility] AND [id number] 21:21:00 Test Item Value Reference Range Interpretation Comments UA Bili (test code = Negative *NA*(05/06/17 UA Bili) 3:21 PM) [facility] AND [id number] 21:21:00 Test Item Value Reference Range Interpretation Comments UA Leuk Est (test Negative (05/06/17 3:21 code = UA Leuk Est) PM) [facility] AND [id number] 21:21:00 Test Item Value Reference Range Interpretation Comments UA Sq Epi (test code = UA Sq Epi) Few /LPF [facility] AND [id number] 21:21:00 Test Item Value Reference Range Interpretation Comments UA Protein (test code = UA Protein) 30 mg/dL [facility] AND [id number] 21:21:00 Test Item Value Reference Range Interpretation Comments UA Ketones (test code = UA Ketones) 20 mg/dL [facility] AND [id number] 21:21:00 Test Item Value Reference Range Interpretation Comments UA Glucose (test code = UA Negative mg/dL Glucose) [facility] AND [id number] 21:21:00 Test Item Value Reference Range Interpretation Comments UA Urobilinogen (test code = UA <=1.0 mg/dL 0.1-1.0 Urobilinogen) [facility] AND [id number] 21:21:00 Test Item Value Reference Range Interpretation Comments UA RBC (test code = 1 See_Comment [Automa nisa message] The UA RBC) system which ge nerated this result transmit nisa reference range : <=2. The reference range was not used to interpr et this result as donya l/abnormal. [facility] AND [id number] 21:21:00 Test Item Value Reference Range Interpretation Comments UA Mucus (test code = UA Mucus) Few /LPF [facility] AND [id number] 21:21:00 Test Item Value Reference Range Interpretation Comments UA WBC (test code = 2 See_Comment [Automa nisa message] The UA WBC) system which ge nerated this result transmit nisa reference range : <=5. The reference range was not used to interpr et this result as donya l/abnormal. [facility] AND [id number] 21:21:00 Test Item Value Reference Range Interpretation Comments UA Color (test code = Yellow *NA*(05/06/17 3:21 UA Color) PM) [facility] AND [id number] 21:21:00 Test Item Value Reference Range Interpretation Comments UA Spec Grav (test code = UA Spec Grav) 1.019 [facility] AND [id number] 21:21:00 Test Item Value Reference Range Interpretation Comments UA pH (test code = UA pH) 5.0 5.0-8.0 [facility] [id number] 21:21:00 Test Item Value Reference Range Interpretation Comments UA Turbidity (test code Slight *ABN*(05/06/17 = UA Turbidity) 3:21 PM) [id number]:57:[facility] Test Item Value Reference Range Interpretation Comments Lipase Lvl (test code = Lipase Lvl) 166 73-393 [facility] [id number] 20:57:00 Test Item Value Reference Range Interpretation Comments Amylase Lvl (test code = Amylase Lvl) 42 25-115 [facility] AlmaTjypzmeYBYSNALFHARJ6831-11-37 20:57:00 Test Item Value Reference Range Interpretation Comments Chloride Lvl (test code = Chloride Lvl) 100 95-109 [facility] [id number] 20:57:00 Test Item Value Reference Range Interpretation Comments Sodium Lvl (test code = Sodium Lvl) 139 135-145 [facility] AlmaWftxchlTBZPDTLAJGUK0573-59-45 20:57:00 Test Item Value Reference Range Interpretation Comments Potassium Lvl (test code = Potassium 4.0 3.5-5.1 Lvl) [facility] AlmaTlesxctFPWKAHVZSHLC9329-82-44 20:57:00 Test Item Value Reference Range Interpretation Comments eGFR (test code = eGFR) 41 [facility] AlmaSsyzclrUBBDRGWUWUOV0079-53-18 20:57:00 Test Item Value Reference Range Interpretation Comments Bili Total (test code = Bili Total) 0.7 0.2-1.3 [facility] AlmaJrtvyykKAQGPBDZSDQN7483-05-31 20:57:00 Test Item Value Reference Range Interpretation Comments Alk Phos (test code = Alk Phos) 82 39-136 [facility] AlmaMhcloidDLMHCVABSBBS1464-93-21 20:57:00 Test Item Value Reference Range Interpretation Comments A/G Ratio (test code = A/G Ratio) 1.0 0.7-1.6 [facility] [id number] 20:57:00 Test Item Value Reference Range Interpretation Comments ALT (test code = ALT) 19 <=65 [facility] AlmaLdozjyeXCGKHVFUMYUB1899-97-45 20:57:00 Test Item Value Reference Range Interpretation Comments AST (test code = AST) 15 <=37 [facility] AlmaUdnfvmiIRPDOJKDTRMV5284-20-37 20:57:00 Test Item Value Reference Range Interpretation Comments Globulin (test code = Globulin) 4.1 2.7-4.2 [facility] A[id number] 20:57:00 Test Item Value Reference Range Interpretation Comments Albumin Lvl (test code = Albumin Lvl) 4.3 3.5-5.0 [facility] AlmaZtwvzbuWAPMGKOSKOKD7119-14-26 20:57:00 Test Item Value Reference Range Interpretation Comments B/C Ratio (test code = B/C Ratio) 18 6-25 [facility] AlmaPydcnmhHWAYOYGGQMAN0537-08-12 20:57:00 Test Item Value Reference Range Interpretation Comments Calcium Lvl (test code = Calcium Lvl) 9.4 8.5-10.5 [facility] AlmaEtinebfHIJKMQVLCNRW5641-15-12 20:57:00 Test Item Value Reference Range Interpretation Comments Total Protein (test code = Total 8.4 6.4-8.4 Protein) [facility] [id number] 20:57:00 Test Item Value Reference Range Interpretation Comments CO2 (test code = CO2) 27 24-32 [facility] AlmaPcvaoeuXISJDJIJDNEA8073-52-62 20:57:00 Test Item Value Reference Range Interpretation Comments AGAP (test code = AGAP) 16.0 10.0-20.0 [facility] AlmaRinnpaoSNGIWUYMCCNV0367-66-04 20:57:00 Test Item Value Reference Range Interpretation Comments Creatinine Lvl (test code = Creatinine 1.36 0.50-1.40 Lvl) [facility] AlmaOdkhkgxNUSNSHVNCCIE7603-51-29 20:57:00 Test Item Value Reference Range Interpretation Comments BUN (test code = BUN) 24 7-22 [facility] AlmaRuwelyzKVLUQHQWYCXO8340-01-43 20:57:00 Test Item Value Reference Range Interpretation Comments Glucose Lvl (test code = Glucose Lvl) 77 70-99 [facility]OjdiijeVDLXUNZJRV1182-47-40 20:57:00 Test Item Value Reference Range Interpretation Comments Lymphocytes # (test code = Lymphocytes 2.3 1.0-5.5 #) [facility] CenterHxloqxcAKNXVVSKAS4500-88-68 20:57:00 Test Item Value Reference Range Interpretation Comments Monocytes # (test code = Monocytes #) 0.8 <=0.8 [facility] CenterVesgjjnQHOJBJXVXN3754-33-00 20:57:00 Test Item Value Reference Range Interpretation Comments Eosinophils (test code = Eosinophils) 0.2 <=4.0 [facility] CenterHegowrbIJXSZYXRRC3919-60-83 20:57:00 Test Item Value Reference Range Interpretation Comments Basophils (test code = Basophils) 0.4 <=1.0 [facility] CenterZswyklsWKEBNCXHJM0218-39-71 20:57:00 Test Item Value Reference Range Interpretation Comments Segs-Bands # (test code = Segs-Bands #) 6.4 1.5-8.1 [facility] CenterAnbqshjDEWJFOKJHE3876-71-13 20:57:00 Test Item Value Reference Range Interpretation Comments Lymphocytes (test code = Lymphocytes) 24.4 20.0-40.0 [facility] CenterFyqnegzKBARJKDCNE7473-52-65 20:57:00 Test Item Value Reference Range Interpretation Comments Monocytes (test code = Monocytes) 8.1 2.0-12.0 [facility] CenterXzszzhfYPXUQQUFFU3669-23-28 20:57:00 Test Item Value Reference Range Interpretation Comments Segs (test code = Segs) 66.9 45.0-75.0 [facility] CenterZkgenvbTDAXKZTTCN3481-65-89 20:57:00 Test Item Value Reference Range Interpretation Comments MPV (test code = MPV) 8.4 7.4-10.4 [facility] CenterKkbzxueZMYRXRODJX5579-30-38 20:57:00 Test Item Value Reference Range Interpretation Comments Platelet (test code = Platelet) 287 133-450 [facility] CenterYptlofmKUPHSCDVYB4630-04-11 20:57:00 Test Item Value Reference Range Interpretation Comments MCH (test code = MCH) 32.4 pg 27.0-31.0 [facility] CenterGwtueivFNJRKPMMIV6463-32-63 20:57:00 Test Item Value Reference Range Interpretation Comments RDW (test code = RDW) 12.5 11.5-14.5 [facility] CenterHjlxjixKKQPSKEGGF0317-97-75 20:57:00 Test Item Value Reference Range Interpretation Comments MCV (test code = MCV) 91.5 80.0-98.0 [facility] CenterWdkdbbgHNSRMYZCML6423-27-21 20:57:00 Test Item Value Reference Range Interpretation Comments MCHC (test code = MCHC) 35.4 32.0-36.0 [facility] CenterZqfmnmdWBDJEWNTWX2803-28-89 20:57:00 Test Item Value Reference Range Interpretation Comments Hct (test code = Hct) 42.5 36.0-48.0 [facility] CenterIcnupquLQLXZAPKFT8220-88-88 20:57:00 Test Item Value Reference Range Interpretation Comments WBC (test code = WBC) 9.6 3.7-10.4 [facility] CenterMxyiugjLDMWPCMUWS8372-38-97 20:57:00 Test Item Value Reference Range Interpretation Comments Hgb (test code = Hgb) 15.1 12.0-16.0 [facility] CenterUqrweunAMPRNELZOP9648-33-14 20:57:00 Test Item Value Reference Range Interpretation Comments RBC (test code = RBC) 4.65 4.20-5.40 [facility]2018-01-04 20:57:00 Test Item Value Reference Range Interpretation Comments Lipase Lvl (test code = Lipase Lvl) 166 73-393 [facility]2018-01-04 20:57:00 Test Item Value Reference Range Interpretation Comments Amylase Lvl (test code = Amylase Lvl) 42 25-115 [facility] AlmaHhklzllKWCAZGQRHYIJ2760-92-85 20:57:00 Test Item Value Reference Range Interpretation Comments Chloride Lvl (test code = Chloride Lvl) 100 95-109 [facility] AlmaBnuhfalBMNAPSPBLHTR5224-63-54 20:57:00 Test Item Value Reference Range Interpretation Comments Sodium Lvl (test code = Sodium Lvl) 139 135-145 [facility] AlmaNawbdljOVFXZZOKCHNI9492-86-96 20:57:00 Test Item Value Reference Range Interpretation Comments Potassium Lvl (test code = Potassium 4.0 3.5-5.1 Lvl) [facility] AlmaWezcjiwJYDCZYEXNNZK3618-23-19 20:57:00 Test Item Value Reference Range Interpretation Comments eGFR (test code = eGFR) 41 [facility] AlmaWvyeswpTGJICEEIVLEC3881-83-16 20:57:00 Test Item Value Reference Range Interpretation Comments Bili Total (test code = Bili Total) 0.7 0.2-1.3 [facility] AlmaGwibhzkJCQIEBGWHGYW0550-23-11 20:57:00 Test Item Value Reference Range Interpretation Comments Alk Phos (test code = Alk Phos) 82 39-136 [facility] AlmaNcanabtOBYTUOHVXTKQ9063-63-65 20:57:00 Test Item Value Reference Range Interpretation Comments A/G Ratio (test code = A/G Ratio) 1.0 0.7-1.6 [facility] AlmaDjrurkyQNGERPPDQUOI4062-63-09 20:57:00 Test Item Value Reference Range Interpretation Comments ALT (test code = ALT) 19 See_Comment [Auto mated message] The system which ge nerated this result transmit nisa reference range : <=65. The reference range was not used to interpr et this result as donya l/abnormal. [facility] AlmaEvifwgvBCSBAYZKNCFX6041-86-62 20:57:00 Test Item Value Reference Range Interpretation Comments AST (test code = AST) 15 See_Comment [Auto mated message] The system which ge nerated this result transmit nisa reference range : <=37. The reference range was not used to interpr et this result as donya l/abnormal. [facility] AlmaVpmqkmkSGXXOREHHEAW2655-54-09 20:57:00 Test Item Value Reference Range Interpretation Comments Globulin (test code = Globulin) 4.1 2.7-4.2 [facility] AlmaKyfqdvyXTXRLCFBXWTW4102-88-97 20:57:00 Test Item Value Reference Range Interpretation Comments Albumin Lvl (test code = Albumin Lvl) 4.3 3.5-5.0 [facility] AlmaLjhnoslEGNRJIADIVUW9031-54-88 20:57:00 Test Item Value Reference Range Interpretation Comments B/C Ratio (test code = B/C Ratio) 18 6-25 [facility] AlmaXzmtwrbIAMIHRZFRHIO6890-93-62 20:57:00 Test Item Value Reference Range Interpretation Comments Calcium Lvl (test code = Calcium Lvl) 9.4 8.5-10.5 [facility] AlmaXmymjayGUWTCSEBGDBS9408-39-13 20:57:00 Test Item Value Reference Range Interpretation Comments Total Protein (test code = Total 8.4 6.4-8.4 Protein) [facility] AlmaQwvzqvbSMZNFJIFBMUG0972-15-99 20:57:00 Test Item Value Reference Range Interpretation Comments CO2 (test code = CO2) 27 24-32 [facility] AlmaOqfndiyKTULMNZALOJZ4000-65-92 20:57:00 Test Item Value Reference Range Interpretation Comments AGAP (test code = AGAP) 16.0 10.0-20.0 [facility] AlmaZmigtkeKGLDHXERNZQY9027-18-23 20:57:00 Test Item Value Reference Range Interpretation Comments Creatinine Lvl (test code = Creatinine 1.36 0.50-1.40 Lvl) [facility] AlmaHsezynySJAUTROJDKCS1466-02-46 20:57:00 Test Item Value Reference Range Interpretation Comments BUN (test code = BUN) 24 7-22 [facility] AlmaHntgfltRCRWYKWVXXXZ2528-07-93 20:57:00 Test Item Value Reference Range Interpretation Comments Glucose Lvl (test code = Glucose Lvl) 77 70-99 [facility]MdxgtytLPQWINZEYR8877-34-71 20:57:00 Test Item Value Reference Range Interpretation Comments Lymphocytes # (test code = Lymphocytes 2.3 1.0-5.5 #) [facility] CenterHusinceTYCBJWKZHF4972-64-02 20:57:00 Test Item Value Reference Range Interpretation Comments Monocytes # (test code 0.8 See_Comment [Aut omated message] The = Monocytes #) system which generated this result tra nsmitted reference range : <=0.8. The reference r ana was not used to int erpret this result as normal/abnormal . [facility] CenterOstjqluWQYWUQHEJP4630-85-78 20:57:00 Test Item Value Reference Range Interpretation Comments Eosinophils (test code = 0.2 See_Comment [A utomated message] The Eosinophils) system which ge nerated this result tra nsmitted reference range : <=4.0. The reference r ana was not used to int erpret this result as normal/abnormal . [facility] CenterFewefasJAGDMNDRFK3386-89-07 20:57:00 Test Item Value Reference Range Interpretation Comments Basophils (test code = 0.4 See_Comment [Aut omated message] The Basophils) system which ge nerated this result tra nsmitted reference range : <=1.0. The reference r ana was not used to int erpret this result as normal/abnormal . [facility] CenterVxfwhcdRJJZQJXPBO3711-37-09 20:57:00 Test Item Value Reference Range Interpretation Comments Segs-Bands # (test code = Segs-Bands #) 6.4 1.5-8.1 [facility] CenterEljpcxxITMSQVMEHR6233-83-12 20:57:00 Test Item Value Reference Range Interpretation Comments Lymphocytes (test code = Lymphocytes) 24.4 20.0-40.0 [facility] CenterCamdijoWOLOCFQHJV5102-70-15 20:57:00 Test Item Value Reference Range Interpretation Comments Monocytes (test code = Monocytes) 8.1 2.0-12.0 [facility] CenterVucsjbdIWYXJMIPGX9913-91-09 20:57:00 Test Item Value Reference Range Interpretation Comments Segs (test code = Segs) 66.9 45.0-75.0 [facility] CenterDrhkqjbEYBMYVAYAM9966-48-50 20:57:00 Test Item Value Reference Range Interpretation Comments MPV (test code = MPV) 8.4 7.4-10.4 [facility] CenterAbimbmwNIPTIBENXV9147-38-49 20:57:00 Test Item Value Reference Range Interpretation Comments Platelet (test code = Platelet) 287 133-450 [facility] CenterIefkadhVURDFXTPBE5343-64-12 20:57:00 Test Item Value Reference Range Interpretation Comments MCH (test code = MCH) 32.4 pg 27.0-31.0 [facility] CenterSaukljpRBCFGTFOZV3047-72-78 20:57:00 Test Item Value Reference Range Interpretation Comments RDW (test code = RDW) 12.5 11.5-14.5 [facility] CenterObmwtowYGURWOTMCG0553-74-67 20:57:00 Test Item Value Reference Range Interpretation Comments MCV (test code = MCV) 91.5 80.0-98.0 [facility] CenterJlwfnoxWQIQNFTCSD8496-78-81 20:57:00 Test Item Value Reference Range Interpretation Comments MCHC (test code = MCHC) 35.4 32.0-36.0 [facility] CenterNddtbzpCFJMLGFQRQ8340-62-72 20:57:00 Test Item Value Reference Range Interpretation Comments Hct (test code = Hct) 42.5 36.0-48.0 [facility] CenterVbnxxbxWUVOCCKAPF6976-33-68 20:57:00 Test Item Value Reference Range Interpretation Comments WBC (test code = WBC) 9.6 3.7-10.4 [facility] CenterHubqozxHUACNFGCWL0472-28-23 20:57:00 Test Item Value Reference Range Interpretation Comments Hgb (test code = Hgb) 15.1 12.0-16.0 [facility] CenterNwgiigzQUIUBDIMQN1581-71-59 20:57:00 Test Item Value Reference Range Interpretation Comments RBC (test code = RBC) 4.65 4.20-5.40 [facility]2018-01-04 20:57:00 Test Item Value Reference Range Interpretation Comments Lipase Lvl (test code = Lipase Lvl) 166 73-393 [facility] IGCEG1201-24-45 20:57:00 Test Item Value Reference Range Interpretation Comments Amylase Lvl (test code = Amylase Lvl) 42 25-115 [facility] AlmaTjlnlikDSUCSEYXYRBQ4741-26-67 20:57:00 Test Item Value Reference Range Interpretation Comments Chloride Lvl (test code = Chloride Lvl) 100 95-109 [facility] AlmaLhosoqvYBMDRVNEDULW8420-69-28 20:57:00 Test Item Value Reference Range Interpretation Comments Sodium Lvl (test code = Sodium Lvl) 139 135-145 [facility] AlmaYtkrpndXIADJDITKHWL1824-32-10 20:57:00 Test Item Value Reference Range Interpretation Comments Potassium Lvl (test code = Potassium 4.0 3.5-5.1 Lvl) [facility] AlmaSfbigvcJSVLAPDPMLFT9341-82-37 20:57:00 Test Item Value Reference Range Interpretation Comments eGFR (test code = eGFR) 41 [facility] AlmaSwnhptbKIIGNYSMKWDF8480-71-73 20:57:00 Test Item Value Reference Range Interpretation Comments Bili Total (test code = Bili Total) 0.7 0.2-1.3 [facility] AlmaAzfchzdNJUACPNYOMWX4614-07-40 20:57:00 Test Item Value Reference Range Interpretation Comments Alk Phos (test code = Alk Phos) 82 39-136 [facility] AlmaIbxybvvAYACBLMJJYWQ7965-65-14 20:57:00 Test Item Value Reference Range Interpretation Comments A/G Ratio (test code = A/G Ratio) 1.0 0.7-1.6 [facility] AlmaQchzzzgDVHHDCJXKQIG0799-48-00 20:57:00 Test Item Value Reference Range Interpretation Comments ALT (test code = ALT) 19 See_Comment [Auto mated message] The system which ge nerated this result transmit nisa reference range : <=65. The reference range was not used to interpr et this result as donya l/abnormal. [facility] AlmaMkuovszYSTRIXSIDJBC1003-08-29 20:57:00 Test Item Value Reference Range Interpretation Comments AST (test code = AST) 15 See_Comment [Auto mated message] The system which ge nerated this result transmit nisa reference range : <=37. The reference range was not used to interpr et this result as donya l/abnormal. [facility] AlmaHvsvzqgLVFZUBZNZVBK3467-86-28 20:57:00 Test Item Value Reference Range Interpretation Comments Globulin (test code = Globulin) 4.1 2.7-4.2 [facility] AlmaMwzaxuiBLODMNQILFVD7596-85-85 20:57:00 Test Item Value Reference Range Interpretation Comments Albumin Lvl (test code = Albumin Lvl) 4.3 3.5-5.0 [facility] AlmaFrajynxIJMKARYJBUPQ9913-12-10 20:57:00 Test Item Value Reference Range Interpretation Comments B/C Ratio (test code = B/C Ratio) 18 6-25 [facility] AlmaLymaafjUJLEDFRKVQHP5456-51-31 20:57:00 Test Item Value Reference Range Interpretation Comments Calcium Lvl (test code = Calcium Lvl) 9.4 8.5-10.5 [facility] AlmaLzpetufTHTJKHMDDVOZ8860-64-62 20:57:00 Test Item Value Reference Range Interpretation Comments Total Protein (test code = Total 8.4 6.4-8.4 Protein) [facility] AlmaXqmapojKPZDIEZVYMPX1637-12-17 20:57:00 Test Item Value Reference Range Interpretation Comments CO2 (test code = CO2) 27 24-32 [facility] AlmaFeixaeqPBYBLAUMEEWS6866-87-14 20:57:00 Test Item Value Reference Range Interpretation Comments AGAP (test code = AGAP) 16.0 10.0-20.0 [facility] AlmaEnxbphqBCZXVIJNTVTX9723-33-40 20:57:00 Test Item Value Reference Range Interpretation Comments Creatinine Lvl (test code = Creatinine 1.36 0.50-1.40 Lvl) [facility] AlmaNwjhyzdGRPALVAFLFHY5606-49-93 20:57:00 Test Item Value Reference Range Interpretation Comments BUN (test code = BUN) 24 7-22 [facility] AlmaWsqtcgjWNHGTDNSOQFD4099-86-76 20:57:00 Test Item Value Reference Range Interpretation Comments Glucose Lvl (test code = Glucose Lvl) 77 70-99 [facility] CenterZyzwfxqQAIRJONEMK4806-01-90 20:57:00 Test Item Value Reference Range Interpretation Comments Lymphocytes # (test code = Lymphocytes 2.3 1.0-5.5 #) [facility] CenterVkppxyjBITITAUYDR4382-67-75 20:57:00 Test Item Value Reference Range Interpretation Comments Monocytes # (test code 0.8 See_Comment [Aut omated message] The = Monocytes #) system which generated this result tra nsmitted reference range : <=0.8. The reference r ana was not used to int erpret this result as normal/abnormal . [facility] CenterGmvpfirANBISSXMYL1265-23-03 20:57:00 Test Item Value Reference Range Interpretation Comments Eosinophils (test code = 0.2 See_Comment [A utomated message] The Eosinophils) system which ge nerated this result tra nsmitted reference range : <=4.0. The reference r ana was not used to int erpret this result as normal/abnormal . [facility] CenterCsasppcGVTMZIDYPP6484-49-41 20:57:00 Test Item Value Reference Range Interpretation Comments Basophils (test code = 0.4 See_Comment [Aut omated message] The Basophils) system which ge nerated this result tra nsmitted reference range : <=1.0. The reference r ana was not used to int erpret this result as normal/abnormal . [facility] CenterNmdbjwyILGQSNTMWE5049-32-58 20:57:00 Test Item Value Reference Range Interpretation Comments Segs-Bands # (test code = Segs-Bands #) 6.4 1.5-8.1 [facility] CenterSososovOGTXAMQNLU8007-53-20 20:57:00 Test Item Value Reference Range Interpretation Comments Lymphocytes (test code = Lymphocytes) 24.4 20.0-40.0 [facility] CenterFgvbjldNBFKDOAUCW4367-93-12 20:57:00 Test Item Value Reference Range Interpretation Comments Monocytes (test code = Monocytes) 8.1 2.0-12.0 [facility] CenterBeiwzvzVDQELCQJDL6269-04-05 20:57:00 Test Item Value Reference Range Interpretation Comments Segs (test code = Segs) 66.9 45.0-75.0 [facility] CenterAedhykpZZVUSGVPVY0849-08-53 20:57:00 Test Item Value Reference Range Interpretation Comments MPV (test code = MPV) 8.4 7.4-10.4 [facility] CenterTgxwouxUSFUIGYNGK3024-55-57 20:57:00 Test Item Value Reference Range Interpretation Comments Platelet (test code = Platelet) 287 133-450 [facility] CenterDkurgxwYOHDVDJZMW6321-57-00 20:57:00 Test Item Value Reference Range Interpretation Comments MCH (test code = MCH) 32.4 pg 27.0-31.0 [facility] CenterAgzjifyBUIMBPENOS1907-69-05 20:57:00 Test Item Value Reference Range Interpretation Comments RDW (test code = RDW) 12.5 11.5-14.5 [facility] CenterMkjqcjjTMDRMOMQQD6892-16-54 20:57:00 Test Item Value Reference Range Interpretation Comments MCV (test code = MCV) 91.5 80.0-98.0 [facility] CenterIkxctyqKFXQMEUZPU2371-22-00 20:57:00 Test Item Value Reference Range Interpretation Comments MCHC (test code = MCHC) 35.4 32.0-36.0 [facility] CenterMviihuzCNQOBUBAKW6737-93-14 20:57:00 Test Item Value Reference Range Interpretation Comments Hct (test code = Hct) 42.5 36.0-48.0 [facility] CenterBsecyavOGMLDSBQDI3443-11-62 20:57:00 Test Item Value Reference Range Interpretation Comments WBC (test code = WBC) 9.6 3.7-10.4 [facility] CenterIluilzbIBUVHCTWSX3364-32-55 20:57:00 Test Item Value Reference Range Interpretation Comments Hgb (test code = Hgb) 15.1 12.0-16.0 [facility] CenterIpgqbhnFXMYMBCUJN1858-28-26 20:57:00 Test Item Value Reference Range Interpretation Comments RBC (test code = RBC) 4.65 4.20-5.40 [facility]2018-01-04 20:57:00 Test Item Value Reference Range Interpretation Comments Lipase Lvl (test code = Lipase Lvl) 166 73-393 [facility]2018-01-04 20:57:00 Test Item Value Reference Range Interpretation Comments Amylase Lvl (test code = Amylase Lvl) 42 25-115 [facility] AlmaJxarhamHDWBGNTKAULI7830-51-49 20:57:00 Test Item Value Reference Range Interpretation Comments Chloride Lvl (test code = Chloride Lvl) 100 95-109 [facility] AlmaVwtkxelDSEYJDMISVOV7999-18-93 20:57:00 Test Item Value Reference Range Interpretation Comments Sodium Lvl (test code = Sodium Lvl) 139 135-145 [facility] AlmaSvtoreoFXSPZYPMPUXY3024-12-19 20:57:00 Test Item Value Reference Range Interpretation Comments Potassium Lvl (test code = Potassium 4.0 3.5-5.1 Lvl) [facility] AlmaKivqulfVIXXJIZPZODV3836-87-50 20:57:00 Test Item Value Reference Range Interpretation Comments eGFR (test code = eGFR) 41 [facility] AlmaYthvpudRQGYPQISPCKT5933-67-19 20:57:00 Test Item Value Reference Range Interpretation Comments Bili Total (test code = Bili Total) 0.7 0.2-1.3 [facility] AlmaDlxadgzGFFTVCMIKUGF1313-15-47 20:57:00 Test Item Value Reference Range Interpretation Comments Alk Phos (test code = Alk Phos) 82 39-136 [facility] AlmaVjbztriAFOREPNEMLMB9019-74-84 20:57:00 Test Item Value Reference Range Interpretation Comments A/G Ratio (test code = A/G Ratio) 1.0 0.7-1.6 [facility] AlmaCgmzfnxPKFSNDUXAIWG5306-71-21 20:57:00 Test Item Value Reference Range Interpretation Comments ALT (test code = ALT) 19 See_Comment [Auto mated message] The system which ge nerated this result transmit nisa reference range : <=65. The reference range was not used to interpr et this result as donya l/abnormal. [facility] AlmaEudfxyvRQLBCGVKASFC7539-53-09 20:57:00 Test Item Value Reference Range Interpretation Comments AST (test code = AST) 15 See_Comment [Auto mated message] The system which ge nerated this result transmit nisa reference range : <=37. The reference range was not used to interpr et this result as donya l/abnormal. [facility] AlmaHdzzwieZHXIRQVMWDQE3680-03-21 20:57:00 Test Item Value Reference Range Interpretation Comments Globulin (test code = Globulin) 4.1 2.7-4.2 [facility] AlmaAtwffqfORGNJURDSQWW3799-48-02 20:57:00 Test Item Value Reference Range Interpretation Comments Albumin Lvl (test code = Albumin Lvl) 4.3 3.5-5.0 [facility] AlmaDtvjgxgBBOWFIVOOVFE1944-32-02 20:57:00 Test Item Value Reference Range Interpretation Comments B/C Ratio (test code = B/C Ratio) 18 6-25 [facility] AlmaWlmvgfnWIJMHOFTRNLG7983-60-88 20:57:00 Test Item Value Reference Range Interpretation Comments Calcium Lvl (test code = Calcium Lvl) 9.4 8.5-10.5 [facility] AlmaPptwwzkXCYKPLOFTCSN0740-50-03 20:57:00 Test Item Value Reference Range Interpretation Comments Total Protein (test code = Total 8.4 6.4-8.4 Protein) [facility] AlmaHpzriftKWLYCAHRBUBW6939-15-35 20:57:00 Test Item Value Reference Range Interpretation Comments CO2 (test code = CO2) 27 24-32 [facility] AlmaRwtjcxuAGFNGHJIPWVO3361-53-67 20:57:00 Test Item Value Reference Range Interpretation Comments AGAP (test code = AGAP) 16.0 10.0-20.0 [facility] AlmaLtdlsftUBPKEUPXNLCO4251-87-42 20:57:00 Test Item Value Reference Range Interpretation Comments Creatinine Lvl (test code = Creatinine 1.36 0.50-1.40 Lvl) [facility] AlmaDkqefsbQVZBSWZIGGMU8500-68-40 20:57:00 Test Item Value Reference Range Interpretation Comments BUN (test code = BUN) 24 7-22 [facility] AlmaIzylyfzCPJIKLVHOJWF9464-75-02 20:57:00 Test Item Value Reference Range Interpretation Comments Glucose Lvl (test code = Glucose Lvl) 77 70-99 [facility] CenterXdnmsyiWWSLBJQBIT2419-62-25 20:57:00 Test Item Value Reference Range Interpretation Comments Lymphocytes # (test code = Lymphocytes 2.3 1.0-5.5 #) [facility] CenterWfmdvjaRDPFCBLOAZ3022-97-81 20:57:00 Test Item Value Reference Range Interpretation Comments Monocytes # (test code 0.8 See_Comment [Aut omated message] The = Monocytes #) system which generated this result tra nsmitted reference range : <=0.8. The reference r ana was not used to int erpret this result as normal/abnormal . [facility] CenterMbykqohPCYNUPVZFK4455-67-42 20:57:00 Test Item Value Reference Range Interpretation Comments Eosinophils (test code = 0.2 See_Comment [A utomated message] The Eosinophils) system which ge nerated this result tra nsmitted reference range : <=4.0. The reference r ana was not used to int erpret this result as normal/abnormal . [facility] CenterBiutwhkSVJHHAAXLS8058-11-17 20:57:00 Test Item Value Reference Range Interpretation Comments Basophils (test code = 0.4 See_Comment [Aut omated message] The Basophils) system which ge nerated this result tra nsmitted reference range : <=1.0. The reference r ana was not used to int erpret this result as normal/abnormal . [facility] CenterWoknzcgNTOAZMUSME9084-67-07 20:57:00 Test Item Value Reference Range Interpretation Comments Segs-Bands # (test code = Segs-Bands #) 6.4 1.5-8.1 [facility] CenterJjsnxhfRYYTCLMIPR3923-90-91 20:57:00 Test Item Value Reference Range Interpretation Comments Lymphocytes (test code = Lymphocytes) 24.4 20.0-40.0 [facility] CenterHlxpawqWEPVWCSEGG0429-96-88 20:57:00 Test Item Value Reference Range Interpretation Comments Monocytes (test code = Monocytes) 8.1 2.0-12.0 [facility] CenterBppniwjHKYOXHZHHF8307-35-75 20:57:00 Test Item Value Reference Range Interpretation Comments Segs (test code = Segs) 66.9 45.0-75.0 [facility] CenterQuvmscbAPTXEFQTMC6258-40-71 20:57:00 Test Item Value Reference Range Interpretation Comments MPV (test code = MPV) 8.4 7.4-10.4 [facility] CenterUurscncPMFRBFFHWF6143-92-26 20:57:00 Test Item Value Reference Range Interpretation Comments Platelet (test code = Platelet) 287 133-450 [facility] CenterMvpdmowCHGDERPMGJ7055-31-20 20:57:00 Test Item Value Reference Range Interpretation Comments MCH (test code = MCH) 32.4 pg 27.0-31.0 [facility] CenterEurxggrPWUMELANAU2903-24-91 20:57:00 Test Item Value Reference Range Interpretation Comments RDW (test code = RDW) 12.5 11.5-14.5 [facility] CenterMpqiuttXNUFQADQPJ0688-69-23 20:57:00 Test Item Value Reference Range Interpretation Comments MCV (test code = MCV) 91.5 80.0-98.0 [facility] CenterZxpjezjXXLSPGXMDR0719-95-32 20:57:00 Test Item Value Reference Range Interpretation Comments MCHC (test code = MCHC) 35.4 32.0-36.0 [facility] CenterBmkycpyCTRVDYZLQU2833-37-02 20:57:00 Test Item Value Reference Range Interpretation Comments Hct (test code = Hct) 42.5 36.0-48.0 [facility] CenterJemuuxzXTGMAYZMMF7953-82-15 20:57:00 Test Item Value Reference Range Interpretation Comments WBC (test code = WBC) 9.6 3.7-10.4 [facility] CenterJgyecfxHGQYQNNLRS1385-92-84 20:57:00 Test Item Value Reference Range Interpretation Comments Hgb (test code = Hgb) 15.1 12.0-16.0 [facility] CenterEbylsenVJWWIJLVCT7165-29-04 20:57:00 Test Item Value Reference Range Interpretation Comments RBC (test code = RBC) 4.65 4.20-5.40 [facility] VROXN8416-27-55 20:57:00 Test Item Value Reference Range Interpretation Comments Lipase Lvl (test code = Lipase Lvl) 166 73-393 [facility]2018-01-04 20:57:00 Test Item Value Reference Range Interpretation Comments Amylase Lvl (test code = Amylase Lvl) 42 25-115 [facility] AlmaOtxntneBDLGKFOXJPHU2229-61-49 20:57:00 Test Item Value Reference Range Interpretation Comments Chloride Lvl (test code = Chloride Lvl) 100 95-109 [facility] AlmaQmugtjaLKJOVRQBSCVY6411-38-32 20:57:00 Test Item Value Reference Range Interpretation Comments Sodium Lvl (test code = Sodium Lvl) 139 135-145 [facility] AlmaOrregoiTHCEVKCFGYFU9316-38-39 20:57:00 Test Item Value Reference Range Interpretation Comments Potassium Lvl (test code = Potassium 4.0 3.5-5.1 Lvl) [facility] AlmaFejrwnuXUHMSBPYAVGQ2209-25-81 20:57:00 Test Item Value Reference Range Interpretation Comments eGFR (test code = eGFR) 41 [facility] AlmaOzexrdpMQKIFVEOADWW6747-71-86 20:57:00 Test Item Value Reference Range Interpretation Comments Bili Total (test code = Bili Total) 0.7 0.2-1.3 [facility] AlmaPthymtrORBZCYHLOCQQ4185-34-21 20:57:00 Test Item Value Reference Range Interpretation Comments Alk Phos (test code = Alk Phos) 82 39-136 [facility] AlmaIvvlqdcRVPNDMNRUANA4808-59-75 20:57:00 Test Item Value Reference Range Interpretation Comments A/G Ratio (test code = A/G Ratio) 1.0 0.7-1.6 [facility] AlmaOnczmiiFRIKNTINBZVZ7848-12-81 20:57:00 Test Item Value Reference Range Interpretation Comments ALT (test code = ALT) 19 See_Comment [Auto mated message] The system which ge nerated this result transmit nisa reference range : <=65. The reference range was not used to interpr et this result as donya l/abnormal. [facility] AlmaAfsdgelCCGEAAZCZXIP9343-30-58 20:57:00 Test Item Value Reference Range Interpretation Comments AST (test code = AST) 15 See_Comment [Auto mated message] The system which ge nerated this result transmit nisa reference range : <=37. The reference range was not used to interpr et this result as donya l/abnormal. [facility] AlmaMhrtfllHMNGYDTRCQCB7807-58-95 20:57:00 Test Item Value Reference Range Interpretation Comments Globulin (test code = Globulin) 4.1 2.7-4.2 [facility] AlmaKirggmjVIZWEQFIPXHT2371-72-11 20:57:00 Test Item Value Reference Range Interpretation Comments Albumin Lvl (test code = Albumin Lvl) 4.3 3.5-5.0 [facility] AlmaOmnmcucJHXKGUMQLXVW2475-17-63 20:57:00 Test Item Value Reference Range Interpretation Comments B/C Ratio (test code = B/C Ratio) 18 6-25 [facility] AlmaMidovgfAIICXJUIBYJE7554-85-87 20:57:00 Test Item Value Reference Range Interpretation Comments Calcium Lvl (test code = Calcium Lvl) 9.4 8.5-10.5 [facility] AlmaLolyvfdHXZZLUFVVUGH5124-26-51 20:57:00 Test Item Value Reference Range Interpretation Comments Total Protein (test code = Total 8.4 6.4-8.4 Protein) [facility] AlmaUjtkpfqJCFIRNXPGUBH3637-54-53 20:57:00 Test Item Value Reference Range Interpretation Comments CO2 (test code = CO2) 27 24-32 [facility] AlmaJuhdmywNCBLQAWCRVMJ3679-13-41 20:57:00 Test Item Value Reference Range Interpretation Comments AGAP (test code = AGAP) 16.0 10.0-20.0 [facility] AlmaCknzwogVBRCDSACCNJQ2998-61-46 20:57:00 Test Item Value Reference Range Interpretation Comments Creatinine Lvl (test code = Creatinine 1.36 0.50-1.40 Lvl) [facility] AlmaFliifxeUJTAVVVALFGB1179-55-58 20:57:00 Test Item Value Reference Range Interpretation Comments BUN (test code = BUN) 24 7-22 [facility] [facility]pfptceGEJWRXBNCZQJ0146-26-41 20:57:00 Test Item Value Reference Range Interpretation Comments Glucose Lvl (test code = Glucose Lvl) 77 70-99 [facility]HfqdqwiTNKTITNSOT2233-58-76 20:57:00 Test Item Value Reference Range Interpretation Comments Lymphocytes # (test code = Lymphocytes 2.3 1.0-5.5 #) [facility] CenterIeoeqqnHFSUGDNISG5560-21-66 20:57:00 Test Item Value Reference Range Interpretation Comments Monocytes # (test code 0.8 See_Comment [Aut omated message] The = Monocytes #) system which generated this result tra nsmitted reference range : <=0.8. The reference r ana was not used to int erpret this result as normal/abnormal . [facility] CenterWpgfkwqVBVGVJOAIT8308-87-65 20:57:00 Test Item Value Reference Range Interpretation Comments Eosinophils (test code = 0.2 See_Comment [A utomated message] The Eosinophils) system which ge nerated this result tra nsmitted reference range : <=4.0. The reference r ana was not used to int erpret this result as normal/abnormal . [facility] CenterSqhgkcrDHLDNGPBZV8460-86-99 20:57:00 Test Item Value Reference Range Interpretation Comments Basophils (test code = 0.4 See_Comment [Aut omated message] The Basophils) system which ge nerated this result tra nsmitted reference range : <=1.0. The reference r ana was not used to int erpret this result as normal/abnormal . [facility] CenterXaabscaGTECJUTORS1436-07-82 20:57:00 Test Item Value Reference Range Interpretation Comments Segs-Bands # (test code = Segs-Bands #) 6.4 1.5-8.1 [facility] CenterFkrgvfrWXZMGXFMWH9105-66-19 20:57:00 Test Item Value Reference Range Interpretation Comments Lymphocytes (test code = Lymphocytes) 24.4 20.0-40.0 [facility] CenterXljkelpUGGGFDUEFE7156-88-51 20:57:00 Test Item Value Reference Range Interpretation Comments Monocytes (test code = Monocytes) 8.1 2.0-12.0 [facility] CenterUdnjbulGYPHDMYLDG7830-49-76 20:57:00 Test Item Value Reference Range Interpretation Comments Segs (test code = Segs) 66.9 45.0-75.0 [facility] CenterFvhlwjyQTBFKFUHST0537-00-31 20:57:00 Test Item Value Reference Range Interpretation Comments MPV (test code = MPV) 8.4 7.4-10.4 [facility] CenterTaiziuaDZNWKEKJNW0925-72-38 20:57:00 Test Item Value Reference Range Interpretation Comments Platelet (test code = Platelet) 287 133-450 [facility] CenterDiecyhvQYOUKRIOUZ2593-97-06 20:57:00 Test Item Value Reference Range Interpretation Comments MCH (test code = MCH) 32.4 pg 27.0-31.0 [facility] CenterXvzejbcKURKJAKANO8605-28-45 20:57:00 Test Item Value Reference Range Interpretation Comments RDW (test code = RDW) 12.5 11.5-14.5 [facility] CenterJofsjigWDKCZQXJLB4033-44-61 20:57:00 Test Item Value Reference Range Interpretation Comments MCV (test code = MCV) 91.5 80.0-98.0 [facility] CenterXfoosloNFKTPJISRY4597-51-44 20:57:00 Test Item Value Reference Range Interpretation Comments MCHC (test code = MCHC) 35.4 32.0-36.0 [facility] CenterJwwtgpvENYNUZKENB3888-43-54 20:57:00 Test Item Value Reference Range Interpretation Comments Hct (test code = Hct) 42.5 36.0-48.0 [facility] CenterGqtwspfYCYCNISMYC2150-27-16 20:57:00 Test Item Value Reference Range Interpretation Comments WBC (test code = WBC) 9.6 3.7-10.4 [facility] CenterUbvuovqKRITGTOAJY4408-28-42 20:57:00 Test Item Value Reference Range Interpretation Comments Hgb (test code = Hgb) 15.1 12.0-16.0 [facility] CenterZwwfisfCZWOSBPBWA0884-39-28 20:57:00 Test Item Value Reference Range Interpretation Comments RBC (test code = RBC) 4.65 4.20-5.40 [facility]FojjqzpBDKHSCTQW4101-75-27 05:00:00 Test Item Value Reference Range Interpretation Comments eGFR (test code = eGFR) 95 [facility] HospitalEomqimnCLALWICSD2167-51-96 05:00:00 Test Item Value Reference Range Interpretation Comments AGAP (test code = AGAP) 12.9 10.0-20.0 N [facility] HospitalZarvpcjAVBIGSQVP5143-21-92 05:00:00 Test Item Value Reference Range Interpretation Comments Calcium Lvl (test code = Calcium Lvl) 8.5 8.5-10.5 N [facility] HospitalMuhbcgpAMGTTNNVF4551-45-89 05:00:00 Test Item Value Reference Range Interpretation Comments Glucose Lvl (test code = Glucose Lvl) 75 70-99 N [facility] HospitalQauogjqPCXMKWHFN9486-07-06 05:00:00 Test Item Value Reference Range Interpretation Comments CO2 (test code = CO2) 28 24-32 N [facility] HospitalHqvzkkgGCQYYZNJJ6809-95-42 05:00:00 Test Item Value Reference Range Interpretation Comments Chloride Lvl (test code = Chloride Lvl) 106 95-109 N [facility] HospitalQuxqiyhWKVQPSKMI6790-24-42 05:00:00 Test Item Value Reference Range Interpretation Comments Potassium Lvl (test code = Potassium 3.9 3.5-5.1 N Lvl) [facility] HospitalGqfymglGVQJIMVYZ3307-95-66 05:00:00 Test Item Value Reference Range Interpretation Comments BUN (test code = BUN) 5 7-22 L [facility] HospitalEqwocvpTALGVESLE3179-69-19 05:00:00 Test Item Value Reference Range Interpretation Comments Creatinine Lvl (test code = Creatinine 0.7 0.5-1.4 N Lvl) [facility] HospitalVsivjggGHSESVXIV1507-33-77 05:00:00 Test Item Value Reference Range Interpretation Comments Sodium Lvl (test code = Sodium Lvl) 143 135-145 N [facility] CenterMllxckvOTFUXQISGI6680-84-58 05:00:00 Test Item Value Reference Range Interpretation Comments MPV (test code = MPV) 8.4 7.4-10.4 N [facility] CenterMxaimexMTLIGFGEER8857-94-29 05:00:00 Test Item Value Reference Range Interpretation Comments RBC (test code = RBC) 3.95 4.20-5.40 L [facility] CenterVunozvgRHQLEHAINN2213-98-41 05:00:00 Test Item Value Reference Range Interpretation Comments WBC (test code = WBC) 5.7 3.7-10.4 N [facility] CenterZfdvbkcIWEMDRGHKQ4239-37-19 05:00:00 Test Item Value Reference Range Interpretation Comments MCH (test code = MCH) 33.0 pg 27.0-31.0 H [facility] CenterNtwlimwLPKIHZUJDV1067-15-68 05:00:00 Test Item Value Reference Range Interpretation Comments Hct (test code = Hct) 37.4 36.0-48.0 N [facility] CenterHiazqzcHZJSTMCJIA7340-14-91 05:00:00 Test Item Value Reference Range Interpretation Comments Hgb (test code = Hgb) 13.0 12.0-16.0 N [facility] CenterBhyfyqdLARVCCDPLL8181-07-22 05:00:00 Test Item Value Reference Range Interpretation Comments MCV (test code = MCV) 94.8 81.0-99.0 N [facility] CenterHkujryhTJBRMHUFMS6936-26-56 05:00:00 Test Item Value Reference Range Interpretation Comments RDW (test code = RDW) 12.6 11.5-14.5 N [facility] CenterWubyngoXFAEDZPSAK8545-17-75 05:00:00 Test Item Value Reference Range Interpretation Comments MCHC (test code = MCHC) 34.8 32.0-36.0 N [facility] CenterRuryvsgIUQYQPVIJY7787-85-70 05:00:00 Test Item Value Reference Range Interpretation Comments Platelet (test code = Platelet) 203 133-450 N [facility] CenterPkzlknqDDYYAWGIYC0440-11-87 05:00:00 Test Item Value Reference Range Interpretation Comments Segs (test code = Segs) 50.9 45.0-75.0 N [facility] CenterDcyjltsFPFWJXTNGX0623-54-19 05:00:00 Test Item Value Reference Range Interpretation Comments Lymphocytes (test code = Lymphocytes) 36.5 20.0-40.0 N [facility] CenterAhrakefEBLKWPCMUU3752-95-15 05:00:00 Test Item Value Reference Range Interpretation Comments Monocytes (test code = Monocytes) 10.0 2.0-12.0 N [facility] CenterPdnqzuyBWEIBJDPGJ0047-62-21 05:00:00 Test Item Value Reference Range Interpretation Comments Monocytes # (test code = Monocytes #) 0.6 <=0.8 N [facility] CenterGhqyzthCNXRVSKTEK8202-78-73 05:00:00 Test Item Value Reference Range Interpretation Comments Eosinophils # (test code = Eosinophils 0.1 <=0.5 N #) [facility] CenterCjechdmCTRLLGHJVQ9840-30-26 05:00:00 Test Item Value Reference Range Interpretation Comments Segs-Bands # (test code = Segs-Bands #) 2.9 1.5-8.1 N [facility] CenterLsfjvsyTUCMMICQDC6965-08-92 05:00:00 Test Item Value Reference Range Interpretation Comments Lymphocytes # (test code = Lymphocytes 2.1 1.0-5.5 N #) [facility] CenterJmzlrcjBWVSDVQKOK8629-11-35 05:00:00 Test Item Value Reference Range Interpretation Comments Eosinophils (test code = Eosinophils) 2.2 <=4.0 N [facility] CenterYttxihpPGEMYTCJXZ2638-43-62 05:00:00 Test Item Value Reference Range Interpretation Comments Basophils (test code = Basophils) 0.4 <=1.0 N [facility] HospitalAmpqvulMJYTLVVDL4738-23-42 05:00:00 Test Item Value Reference Range Interpretation Comments eGFR (test code = eGFR) 95 [facility] HospitalNrqpjwmFYNSDLJBU9454-38-67 05:00:00 Test Item Value Reference Range Interpretation Comments AGAP (test code = AGAP) 12.9 10.0-20.0 N [facility] HospitalByedtxvYJKTITRWO4693-95-01 05:00:00 Test Item Value Reference Range Interpretation Comments Calcium Lvl (test code = Calcium Lvl) 8.5 8.5-10.5 N [facility] HospitalOoidlobNMSLXSKEF4554-02-75 05:00:00 Test Item Value Reference Range Interpretation Comments Glucose Lvl (test code = Glucose Lvl) 75 70-99 N [facility] HospitalEypiciyCOMODUAIZ0735-61-59 05:00:00 Test Item Value Reference Range Interpretation Comments CO2 (test code = CO2) 28 24-32 N [facility] HospitalJdmzxauUVIFRYILP0067-02-53 05:00:00 Test Item Value Reference Range Interpretation Comments Chloride Lvl (test code = Chloride Lvl) 106 95-109 N [facility] HospitalWjsmebbOOTNREQMQ0356-67-93 05:00:00 Test Item Value Reference Range Interpretation Comments Potassium Lvl (test code = Potassium 3.9 3.5-5.1 N Lvl) [facility] HospitalHeineegHKKHWPCZQ8821-99-86 05:00:00 Test Item Value Reference Range Interpretation Comments BUN (test code = BUN) 5 7-22 L [facility] HospitalOcvxuplUTTWHVBUK7852-69-81 05:00:00 Test Item Value Reference Range Interpretation Comments Creatinine Lvl (test code = Creatinine 0.7 0.5-1.4 N Lvl) [facility] HospitalCuogwooNLZHZKOCH5761-09-39 05:00:00 Test Item Value Reference Range Interpretation Comments Sodium Lvl (test code = Sodium Lvl) 143 135-145 N [facility] CenterHukkpmjFJEWCPIPRW9423-64-17 05:00:00 Test Item Value Reference Range Interpretation Comments MPV (test code = MPV) 8.4 7.4-10.4 N [facility] CenterOdlhrbsAEHWSVMBJT6709-92-65 05:00:00 Test Item Value Reference Range Interpretation Comments RBC (test code = RBC) 3.95 4.20-5.40 L [facility] CenterFtomaifVYLKJGZDDS8650-90-44 05:00:00 Test Item Value Reference Range Interpretation Comments WBC (test code = WBC) 5.7 3.7-10.4 N [facility] CenterJplgwjlOUORQIEANF9366-09-51 05:00:00 Test Item Value Reference Range Interpretation Comments MCH (test code = MCH) 33.0 pg 27.0-31.0 H [facility] CenterOxqhaqzUJZZGRDVBR5090-60-33 05:00:00 Test Item Value Reference Range Interpretation Comments Hct (test code = Hct) 37.4 36.0-48.0 N [facility] CenterIryxrezICCRMVCUQU6755-17-33 05:00:00 Test Item Value Reference Range Interpretation Comments Hgb (test code = Hgb) 13.0 12.0-16.0 N [facility] CenterRsvpgrwTMUCNGXXJU9554-99-48 05:00:00 Test Item Value Reference Range Interpretation Comments MCV (test code = MCV) 94.8 81.0-99.0 N [facility] CenterBpmvsfaEJNJFZUHKW4540-90-00 05:00:00 Test Item Value Reference Range Interpretation Comments RDW (test code = RDW) 12.6 11.5-14.5 N [facility] CenterKgcrnlfSEQFBBEURS4027-94-95 05:00:00 Test Item Value Reference Range Interpretation Comments MCHC (test code = MCHC) 34.8 32.0-36.0 N [facility] CenterOudrewzKYESIILCMC0579-83-20 05:00:00 Test Item Value Reference Range Interpretation Comments Platelet (test code = Platelet) 203 133-450 N [facility] CenterKtkszvlLMRHIVHASK1712-49-34 05:00:00 Test Item Value Reference Range Interpretation Comments Segs (test code = Segs) 50.9 45.0-75.0 N [facility] CenterNklebucYQJSPQIGME9168-29-13 05:00:00 Test Item Value Reference Range Interpretation Comments Lymphocytes (test code = Lymphocytes) 36.5 20.0-40.0 N [facility] CenterOatdmerNNDKNISLJE7884-60-07 05:00:00 Test Item Value Reference Range Interpretation Comments Monocytes (test code = Monocytes) 10.0 2.0-12.0 N [facility] CenterOuckfysOHUYTBBBEO7037-03-49 05:00:00 Test Item Value Reference Range Interpretation Comments Monocytes # (test code 0.6 See_Comment N [Aut omated message] The = Monocytes #) system which generated this result tra nsmitted reference range : <=0.8. The reference r ana was not used to int erpret this result as normal/abnormal . [facility] CenterOvfeqbvQPYYXKRVMT7231-38-69 05:00:00 Test Item Value Reference Range Interpretation Comments Eosinophils # (test code 0.1 See_Comment N [A utomated message] The = Eosinophils #) system whic h generated this result tra nsmitted reference range : <=0.5. The reference r ana was not used to int erpret this result as normal/abnormal . [facility] CenterFmcnabrZDKXBWOKKV7260-88-40 05:00:00 Test Item Value Reference Range Interpretation Comments Segs-Bands # (test code = Segs-Bands #) 2.9 1.5-8.1 N [facility] CenterAszedaxFHGQELUYTS2055-98-45 05:00:00 Test Item Value Reference Range Interpretation Comments Lymphocytes # (test code = Lymphocytes 2.1 1.0-5.5 N #) [facility] CenterNnvpkypZIHGABRETE9283-00-56 05:00:00 Test Item Value Reference Range Interpretation Comments Eosinophils (test code = 2.2 See_Comment N [A utomated message] The Eosinophils) system which ge nerated this result tra nsmitted reference range : <=4.0. The reference r ana was not used to int erpret this result as normal/abnormal . [facility] CenterKgpsrfvEBZFQLCCLO7431-26-07 05:00:00 Test Item Value Reference Range Interpretation Comments Basophils (test code = 0.4 See_Comment N [Aut omated message] The Basophils) system which ge nerated this result tra nsmitted reference range : <=1.0. The reference r ana was not used to int erpret this result as normal/abnormal . [facility] HospitalXftszypIUJUKNLMW7307-33-73 05:00:00 Test Item Value Reference Range Interpretation Comments eGFR (test code = eGFR) 95 [facility] HospitalEejuggwYTPPLXYSW3592-38-35 05:00:00 Test Item Value Reference Range Interpretation Comments AGAP (test code = AGAP) 12.9 10.0-20.0 N [facility] HospitalVvxoqjrACAPKZQKP2600-30-26 05:00:00 Test Item Value Reference Range Interpretation Comments Calcium Lvl (test code = Calcium Lvl) 8.5 8.5-10.5 N [facility] HospitalZbqdwhoVGLTKVPDU5501-47-28 05:00:00 Test Item Value Reference Range Interpretation Comments Glucose Lvl (test code = Glucose Lvl) 75 70-99 N [facility] HospitalMfkuqffOZVSKILFC9940-74-39 05:00:00 Test Item Value Reference Range Interpretation Comments CO2 (test code = CO2) 28 24-32 N [facility] HospitalUfrlmhoTXSEFOHMQ1068-97-91 05:00:00 Test Item Value Reference Range Interpretation Comments Chloride Lvl (test code = Chloride Lvl) 106 95-109 N [facility] HospitalJwhkupsNHPQXCPBY1354-77-86 05:00:00 Test Item Value Reference Range Interpretation Comments Potassium Lvl (test code = Potassium 3.9 3.5-5.1 N Lvl) [facility] HospitalJvrurojIPZPEVCRR6781-26-84 05:00:00 Test Item Value Reference Range Interpretation Comments BUN (test code = BUN) 5 7-22 L [facility] HospitalWpjwcjcQYXUWTUMJ6126-49-13 05:00:00 Test Item Value Reference Range Interpretation Comments Creatinine Lvl (test code = Creatinine 0.7 0.5-1.4 N Lvl) [facility] HospitalZrvjyokGPTSRSYTA2389-09-28 05:00:00 Test Item Value Reference Range Interpretation Comments Sodium Lvl (test code = Sodium Lvl) 143 135-145 N [facility] CenterZkivmvyBJRECBXXKA0082-18-14 05:00:00 Test Item Value Reference Range Interpretation Comments MPV (test code = MPV) 8.4 7.4-10.4 N [facility] CenterYaxvtofJIQGAGSKUA0151-15-46 05:00:00 Test Item Value Reference Range Interpretation Comments RBC (test code = RBC) 3.95 4.20-5.40 L [facility] CenterLjapyfrXHXQBNGTZS1849-08-55 05:00:00 Test Item Value Reference Range Interpretation Comments WBC (test code = WBC) 5.7 3.7-10.4 N [facility] CenterWbyvvxfGGKHLZYLVZ4020-48-02 05:00:00 Test Item Value Reference Range Interpretation Comments MCH (test code = MCH) 33.0 pg 27.0-31.0 H [facility] CenterNhixeorTWHBZUEFTS2484-35-53 05:00:00 Test Item Value Reference Range Interpretation Comments Hct (test code = Hct) 37.4 36.0-48.0 N [facility] CenterQbhrkayDHCCLMYLPX6428-42-57 05:00:00 Test Item Value Reference Range Interpretation Comments Hgb (test code = Hgb) 13.0 12.0-16.0 N [facility] CenterEldidhvIPNDNTJDAD0347-68-09 05:00:00 Test Item Value Reference Range Interpretation Comments MCV (test code = MCV) 94.8 81.0-99.0 N [facility] CenterLfycfvfAETIASNEBK2860-99-08 05:00:00 Test Item Value Reference Range Interpretation Comments RDW (test code = RDW) 12.6 11.5-14.5 N [facility] CenterGqfmtrgGGVWPQVTKU2889-43-84 05:00:00 Test Item Value Reference Range Interpretation Comments MCHC (test code = MCHC) 34.8 32.0-36.0 N [facility] CenterHqnpxjfWMHLJBMVSU7913-40-86 05:00:00 Test Item Value Reference Range Interpretation Comments Platelet (test code = Platelet) 203 133-450 N [facility] CenterRbxwrxlJCKLCDMGAI7452-58-85 05:00:00 Test Item Value Reference Range Interpretation Comments Segs (test code = Segs) 50.9 45.0-75.0 N [facility] CenterAatzvsjHPBYKKRRLF2607-76-35 05:00:00 Test Item Value Reference Range Interpretation Comments Lymphocytes (test code = Lymphocytes) 36.5 20.0-40.0 N [facility] CenterZilepctJHVQHHQCVA6255-90-97 05:00:00 Test Item Value Reference Range Interpretation Comments Monocytes (test code = Monocytes) 10.0 2.0-12.0 N [facility] CenterCwfyyvpSDCJOLTVFL9489-67-53 05:00:00 Test Item Value Reference Range Interpretation Comments Monocytes # (test code 0.6 See_Comment N [Aut omated message] The = Monocytes #) system which generated this result tra nsmitted reference range : <=0.8. The reference r ana was not used to int erpret this result as normal/abnormal . [facility] CenterEjffnwqVENRNNMLLR7382-42-38 05:00:00 Test Item Value Reference Range Interpretation Comments Eosinophils # (test code 0.1 See_Comment N [A utomated message] The = Eosinophils #) system whic h generated this result tra nsmitted reference range : <=0.5. The reference r ana was not used to int erpret this result as normal/abnormal . [facility] CenterNjgtmxkIBSWFSZARO9997-41-94 05:00:00 Test Item Value Reference Range Interpretation Comments Segs-Bands # (test code = Segs-Bands #) 2.9 1.5-8.1 N [facility] CenterGukqhlvSODPHKXGTW6043-07-10 05:00:00 Test Item Value Reference Range Interpretation Comments Lymphocytes # (test code = Lymphocytes 2.1 1.0-5.5 N #) [facility] CenterOhdfhtmRDDGLWKSWU7108-86-37 05:00:00 Test Item Value Reference Range Interpretation Comments Eosinophils (test code = 2.2 See_Comment N [A utomated message] The Eosinophils) system which ge nerated this result tra nsmitted reference range : <=4.0. The reference r ana was not used to int erpret this result as normal/abnormal . [facility] CenterSrgeapgYANTZXAJBX8030-15-02 05:00:00 Test Item Value Reference Range Interpretation Comments Basophils (test code = 0.4 See_Comment N [Aut omated message] The Basophils) system which ge nerated this result tra nsmitted reference range : <=1.0. The reference r ana was not used to int erpret this result as normal/abnormal . [facility] HospitalAcwlwdeHFSZBMZRE3871-92-03 05:00:00 Test Item Value Reference Range Interpretation Comments eGFR (test code = eGFR) 95 [facility] HospitalOqtmgkiRLZMIXALT1810-95-50 05:00:00 Test Item Value Reference Range Interpretation Comments AGAP (test code = AGAP) 12.9 10.0-20.0 N [facility] HospitalIolkwjoPHSKNJDTJ2533-54-02 05:00:00 Test Item Value Reference Range Interpretation Comments Calcium Lvl (test code = Calcium Lvl) 8.5 8.5-10.5 N [facility] HospitalXxcqcpeRWLCUDRTC5110-74-15 05:00:00 Test Item Value Reference Range Interpretation Comments Glucose Lvl (test code = Glucose Lvl) 75 70-99 N [facility] HospitalUcasckcXTCIBGKLU3231-99-04 05:00:00 Test Item Value Reference Range Interpretation Comments CO2 (test code = CO2) 28 24-32 N [facility] HospitalMxfnegcCMXXAKUJL2747-46-23 05:00:00 Test Item Value Reference Range Interpretation Comments Chloride Lvl (test code = Chloride Lvl) 106 95-109 N [facility] HospitalEveicvbBSQUSPCSF4535-68-83 05:00:00 Test Item Value Reference Range Interpretation Comments Potassium Lvl (test code = Potassium 3.9 3.5-5.1 N Lvl) [facility] HospitalWrdetloCIFSETUGI3425-56-80 05:00:00 Test Item Value Reference Range Interpretation Comments BUN (test code = BUN) 5 7-22 L [facility] HospitalAgsljmsVSOGVFJUQ0908-15-32 05:00:00 Test Item Value Reference Range Interpretation Comments Creatinine Lvl (test code = Creatinine 0.7 0.5-1.4 N Lvl) [facility] HospitalXletuljJJYLGXIUR1076-54-39 05:00:00 Test Item Value Reference Range Interpretation Comments Sodium Lvl (test code = Sodium Lvl) 143 135-145 N [facility] CenterDmovcegWVHCCAVOUQ9939-05-67 05:00:00 Test Item Value Reference Range Interpretation Comments MPV (test code = MPV) 8.4 7.4-10.4 N [facility] CenterJqumfdbKXBMGMDKMC2145-41-81 05:00:00 Test Item Value Reference Range Interpretation Comments RBC (test code = RBC) 3.95 4.20-5.40 L [facility] CenterJfkvuvmJITPRAMUKI3575-73-40 05:00:00 Test Item Value Reference Range Interpretation Comments WBC (test code = WBC) 5.7 3.7-10.4 N [facility] CenterXjyvpgdORANSZFESW0805-58-84 05:00:00 Test Item Value Reference Range Interpretation Comments MCH (test code = MCH) 33.0 pg 27.0-31.0 H [facility] CenterQptervoSOBEBNFKNS0483-45-90 05:00:00 Test Item Value Reference Range Interpretation Comments Hct (test code = Hct) 37.4 36.0-48.0 N [facility] CenterJrgrlxnUICJUWDRJH0012-70-43 05:00:00 Test Item Value Reference Range Interpretation Comments Hgb (test code = Hgb) 13.0 12.0-16.0 N [facility] CenterTrnzcviAMKLONPSGQ5182-48-23 05:00:00 Test Item Value Reference Range Interpretation Comments MCV (test code = MCV) 94.8 81.0-99.0 N [facility] CenterEzhnspxVEAUIHMBJN8701-86-58 05:00:00 Test Item Value Reference Range Interpretation Comments RDW (test code = RDW) 12.6 11.5-14.5 N [facility] CenterNzljzpgKCPFTKPEDR2921-28-50 05:00:00 Test Item Value Reference Range Interpretation Comments MCHC (test code = MCHC) 34.8 32.0-36.0 N [facility] CenterVtmzdynKWIABNSHDU5725-02-10 05:00:00 Test Item Value Reference Range Interpretation Comments Platelet (test code = Platelet) 203 133-450 N [facility] CenterVabvyzlGYSIJIGHDK7168-52-43 05:00:00 Test Item Value Reference Range Interpretation Comments Segs (test code = Segs) 50.9 45.0-75.0 N [facility] CenterLiiunnaJFKWUAVGHD8307-48-15 05:00:00 Test Item Value Reference Range Interpretation Comments Lymphocytes (test code = Lymphocytes) 36.5 20.0-40.0 N [facility] CenterXvxtdgaTJLTCBLGQY2856-81-90 05:00:00 Test Item Value Reference Range Interpretation Comments Monocytes (test code = Monocytes) 10.0 2.0-12.0 N [facility] CenterHhjnwszSZNFIGYBXB1675-89-25 05:00:00 Test Item Value Reference Range Interpretation Comments Monocytes # (test code 0.6 See_Comment N [Aut omated message] The = Monocytes #) system which generated this result tra nsmitted reference range : <=0.8. The reference r ana was not used to int erpret this result as normal/abnormal . [facility] CenterMhoezauKYEPUEUVHT9332-52-02 05:00:00 Test Item Value Reference Range Interpretation Comments Eosinophils # (test code 0.1 See_Comment N [A utomated message] The = Eosinophils #) system whic h generated this result tra nsmitted reference range : <=0.5. The reference r ana was not used to int erpret this result as normal/abnormal . [facility]OqrorsjAQAMEMXRSV4507-07-73 05:00:00 Test Item Value Reference Range Interpretation Comments Segs-Bands # (test code = Segs-Bands #) 2.9 1.5-8.1 N [facility] CenterTvigazaUMPAOPWSTL7675-99-57 05:00:00 Test Item Value Reference Range Interpretation Comments Lymphocytes # (test code = Lymphocytes 2.1 1.0-5.5 N #) [facility] CenterRzvenktQFGEANEQLH8280-59-21 05:00:00 Test Item Value Reference Range Interpretation Comments Eosinophils (test code = 2.2 See_Comment N [A utomated message] The Eosinophils) system which ge nerated this result tra nsmitted reference range : <=4.0. The reference r ana was not used to int erpret this result as normal/abnormal . [facility] CenterNrtjwfjCTNGNNUBCW3336-27-50 05:00:00 Test Item Value Reference Range Interpretation Comments Basophils (test code = 0.4 See_Comment N [Aut omated message] The Basophils) system which ge nerated this result tra nsmitted reference range : <=1.0. The reference r ana was not used to int erpret this result as normal/abnormal . [facility]LxguqacIQFDZVUEX4509-30-83 05:00:00 Test Item Value Reference Range Interpretation Comments eGFR (test code = eGFR) 95 [facility] HospitalBqvembmDIGBDSTMM3024-88-67 05:00:00 Test Item Value Reference Range Interpretation Comments AGAP (test code = AGAP) 12.9 10.0-20.0 N [facility] HospitalTxbherzNTYTPDDNJ9907-90-47 05:00:00 Test Item Value Reference Range Interpretation Comments Calcium Lvl (test code = Calcium Lvl) 8.5 8.5-10.5 N [facility] HospitalCmuisouSPWPJZQSB1607-27-71 05:00:00 Test Item Value Reference Range Interpretation Comments Glucose Lvl (test code = Glucose Lvl) 75 70-99 N [facility] HospitalIsophyqAGMDKJETG5505-89-25 05:00:00 Test Item Value Reference Range Interpretation Comments CO2 (test code = CO2) 28 24-32 N [facility] HospitalFkdhjlmGEZHSPSJL9085-40-11 05:00:00 Test Item Value Reference Range Interpretation Comments Chloride Lvl (test code = Chloride Lvl) 106 95-109 N [facility] HospitalTyxjacsEURXBQEXK4465-48-92 05:00:00 Test Item Value Reference Range Interpretation Comments Potassium Lvl (test code = Potassium 3.9 3.5-5.1 N Lvl) [facility] HospitalTubzfwdTMXNQLKQU1314-41-82 05:00:00 Test Item Value Reference Range Interpretation Comments BUN (test code = BUN) 5 7-22 L [facility] HospitalSudxmqdJRCVXPHMX0099-70-70 05:00:00 Test Item Value Reference Range Interpretation Comments Creatinine Lvl (test code = Creatinine 0.7 0.5-1.4 N Lvl) [facility] HospitalLfbxsnaFYZTUSQPC9807-06-25 05:00:00 Test Item Value Reference Range Interpretation Comments Sodium Lvl (test code = Sodium Lvl) 143 135-145 N [facility] CenterUemvrkxHUELBJYELO4983-00-59 05:00:00 Test Item Value Reference Range Interpretation Comments MPV (test code = MPV) 8.4 7.4-10.4 N [facility] CenterPkqdoicCASPZWAKVL7624-14-02 05:00:00 Test Item Value Reference Range Interpretation Comments RBC (test code = RBC) 3.95 4.20-5.40 L [facility] CenterOiqdjzcWRNWKOMJJD6835-73-24 05:00:00 Test Item Value Reference Range Interpretation Comments WBC (test code = WBC) 5.7 3.7-10.4 N [facility] CenterHoiokdnQOZUJDIZUR6420-71-34 05:00:00 Test Item Value Reference Range Interpretation Comments MCH (test code = MCH) 33.0 pg 27.0-31.0 H [facility] CenterFmupkygIYTMJPIVEW9417-97-33 05:00:00 Test Item Value Reference Range Interpretation Comments Hct (test code = Hct) 37.4 36.0-48.0 N [facility] CenterJrgncojYLJKGSIEPF2422-18-85 05:00:00 Test Item Value Reference Range Interpretation Comments Hgb (test code = Hgb) 13.0 12.0-16.0 N [facility] CenterOrqikxgSYRVCRBESU1250-25-91 05:00:00 Test Item Value Reference Range Interpretation Comments MCV (test code = MCV) 94.8 81.0-99.0 N [facility] CenterHtrddleYAFAJQVODE2829-31-42 05:00:00 Test Item Value Reference Range Interpretation Comments RDW (test code = RDW) 12.6 11.5-14.5 N [facility] CenterUlxxkjiQUHYLETQOW6515-24-49 05:00:00 Test Item Value Reference Range Interpretation Comments MCHC (test code = MCHC) 34.8 32.0-36.0 N [facility] CenterIljdpmjFEJRDVWGGB1043-34-16 05:00:00 Test Item Value Reference Range Interpretation Comments Platelet (test code = Platelet) 203 133-450 N [facility] CenterJjhvnokGFBXLVUCRN7123-08-59 05:00:00 Test Item Value Reference Range Interpretation Comments Segs (test code = Segs) 50.9 45.0-75.0 N [facility] CenterQsscoezOLRAGFGFSW7680-09-94 05:00:00 Test Item Value Reference Range Interpretation Comments Lymphocytes (test code = Lymphocytes) 36.5 20.0-40.0 N [facility] CenterVwgtuwtZYIAJWARUD9186-15-63 05:00:00 Test Item Value Reference Range Interpretation Comments Monocytes (test code = Monocytes) 10.0 2.0-12.0 N [facility] CenterXnotvxpMSDSSDPNLB9827-12-13 05:00:00 Test Item Value Reference Range Interpretation Comments Monocytes # (test code 0.6 See_Comment N [Aut omated message] The = Monocytes #) system which generated this result tra nsmitted reference range : <=0.8. The reference r ana was not used to int erpret this result as normal/abnormal . [facility] CenterWbssuxzQTQRUQIOCC5239-36-75 05:00:00 Test Item Value Reference Range Interpretation Comments Eosinophils # (test code 0.1 See_Comment N [A utomated message] The = Eosinophils #) system whic h generated this result tra nsmitted reference range : <=0.5. The reference r ana was not used to int erpret this result as normal/abnormal . [facility] CenterHnqceiuIPIOVATUGF9307-66-47 05:00:00 Test Item Value Reference Range Interpretation Comments Segs-Bands # (test code = Segs-Bands #) 2.9 1.5-8.1 N [facility] CenterKqyhabdXVIMJOKXNR2144-63-62 05:00:00 Test Item Value Reference Range Interpretation Comments Lymphocytes # (test code = Lymphocytes 2.1 1.0-5.5 N #) [facility] CenterCiukdidUUEAGKCVKV1965-07-59 05:00:00 Test Item Value Reference Range Interpretation Comments Eosinophils (test code = 2.2 See_Comment N [A utomated message] The Eosinophils) system which ge nerated this result tra nsmitted reference range : <=4.0. The reference r ana was not used to int erpret this result as normal/abnormal . [facility] CenterAzitdhgMOVEGLJGNR0600-12-61 05:00:00 Test Item Value Reference Range Interpretation Comments Basophils (test code = 0.4 See_Comment N [Aut omated message] The Basophils) system which ge nerated this result tra nsmitted reference range : <=1.0. The reference r ana was not used to int erpret this result as normal/abnormal . [facility] CenterZxznlklLDJFNHLRKC4891-12-57 08:45:00 Test Item Value Reference Range Interpretation Comments Hgb (test code = Hgb) 11.9 12.0-16.0 L [facility] CenterSgzmcbzIMXACRGFST0342-05-38 08:45:00 Test Item Value Reference Range Interpretation Comments Hct (test code = Hct) 34.5 36.0-48.0 L [facility] CenterEqsafdqRGZZUOXVNW1872-40-06 08:45:00 Test Item Value Reference Range Interpretation Comments MCV (test code = MCV) 94.9 81.0-99.0 N [facility] NRAVGWH1389-75-29 08:45:00 Test Item Value Reference Range Interpretation Comments CA 19-9 (test code = 7.0 See_Comment N [Autom ated message] The CA 19-9) system which ge nerated this result transmit nisa reference range : <=35.0. The reference r ana was not used to interpr et this result as donya l/abnormal. [facility]GddtvbjDUAFTZJMR1472-64-21 08:45:00 Test Item Value Reference Range Interpretation Comments Lipase Lvl (test code = Lipase Lvl) 109 73-393 N [facility] HospitalGznjcfiYGSDMVZFW2944-89-28 08:45:00 Test Item Value Reference Range Interpretation Comments Globulin (test code = Globulin) 3.1 2.0-4.0 N [facility] HospitalIszrqaaYGCTRBSNY9088-82-67 08:45:00 Test Item Value Reference Range Interpretation Comments A/G Ratio (test code = A/G Ratio) 1.0 0.7-1.6 N [facility] HospitalGagfiiuUZRFIQPOE2820-34-65 08:45:00 Test Item Value Reference Range Interpretation Comments B/C Ratio (test code = B/C Ratio) 4 6-25 L [facility] HospitalQzroffaKRFKTUJKK6447-04-72 08:45:00 Test Item Value Reference Range Interpretation Comments AGAP (test code = AGAP) 11.9 10.0-20.0 N [facility] HospitalUxepvyjTMDWLDRJO9969-54-32 08:45:00 Test Item Value Reference Range Interpretation Comments eGFR (test code = eGFR) 95 [facility] HospitalCmttqwqPQVKHLELK4247-10-01 08:45:00 Test Item Value Reference Range Interpretation Comments AST (test code = AST) 16 See_Comment N [Auto mated message] The system which ge nerated this result transmit nisa reference range : <=37. The reference range was not used to interpr et this result as donya l/abnormal. [facility] HospitalAwsatujPJFAKSEUV5661-37-61 08:45:00 Test Item Value Reference Range Interpretation Comments CO2 (test code = CO2) 26 24-32 N [facility] HospitalTxcvnxhBPLDNLMBQ3249-37-91 08:45:00 Test Item Value Reference Range Interpretation Comments Calcium Lvl (test code = Calcium Lvl) 8.0 8.5-10.5 L [facility] HospitalRyhbwcsHAGCREMIG9735-28-50 08:45:00 Test Item Value Reference Range Interpretation Comments Total Protein (test code = Total 6.1 6.4-8.4 L Protein) [facility] HospitalKvnamvnJQNPXBTFX5222-51-78 08:45:00 Test Item Value Reference Range Interpretation Comments Bili Total (test code = Bili Total) 0.5 0.2-1.3 N [facility] HospitalLtggezdWFZRMLHXZ0236-48-10 08:45:00 Test Item Value Reference Range Interpretation Comments Creatinine Lvl (test code = Creatinine 0.7 0.5-1.4 N Lvl) [facility] HospitalRqaztkxFHLNZROMG1759-57-95 08:45:00 Test Item Value Reference Range Interpretation Comments Sodium Lvl (test code = Sodium Lvl) 140 135-145 N [facility] HospitalPkzjbztAYISJVAKI7928-16-28 08:45:00 Test Item Value Reference Range Interpretation Comments Chloride Lvl (test code = Chloride Lvl) 106 95-109 N [facility] HospitalPdrznueIKNKSLJLL1976-09-84 08:45:00 Test Item Value Reference Range Interpretation Comments Potassium Lvl (test code = Potassium 3.9 3.5-5.1 N Lvl) [facility] HospitalIpbzxzhCKDSBSDEK2472-33-86 08:45:00 Test Item Value Reference Range Interpretation Comments ALT (test code = ALT) 20 See_Comment N [Auto mated message] The system which ge nerated this result transmit nisa reference range : <=65. The reference range was not used to interpr et this result as donya l/abnormal. [facility] HospitalGuldjfjJAQHLGIAW2926-57-95 08:45:00 Test Item Value Reference Range Interpretation Comments BUN (test code = BUN) 3 7-22 L [facility] HospitalHurivdvBMMGQBROE8214-33-54 08:45:00 Test Item Value Reference Range Interpretation Comments Glucose Lvl (test code = Glucose Lvl) 115 70-99 H [facility] HospitalUjkqlpqAFHCTPNOY3984-94-02 08:45:00 Test Item Value Reference Range Interpretation Comments Alk Phos (test code = Alk Phos) 74 39-136 N [facility] HospitalNcianwlMFCSOVBFK4279-71-46 08:45:00 Test Item Value Reference Range Interpretation Comments Albumin Lvl (test code = Albumin Lvl) 3.0 3.5-5.0 L [facility] CenterRsbjlbxRYCMNLWQSZ1456-80-55 08:45:00 Test Item Value Reference Range Interpretation Comments Eosinophils # (test code 0.1 See_Comment N [A utomated message] The = Eosinophils #) system whic h generated this result tra nsmitted reference range : <=0.5. The reference r ana was not used to int erpret this result as normal/abnormal . [facility] CenterOrbxdnnIEPWMBJTGQ1883-38-97 08:45:00 Test Item Value Reference Range Interpretation Comments Basophils (test code = 0.3 See_Comment N [Aut omated message] The Basophils) system which ge nerated this result tra nsmitted reference range : <=1.0. The reference r ana was not used to int erpret this result as normal/abnormal . [facility] CenterFiqcsefMVBPDWAIDG5349-24-84 08:45:00 Test Item Value Reference Range Interpretation Comments Segs-Bands # (test code = Segs-Bands #) 2.8 1.5-8.1 N [facility] CenterZrwtpgnTTCCROFOBE4622-72-67 08:45:00 Test Item Value Reference Range Interpretation Comments Lymphocytes # (test code = Lymphocytes 2.0 1.0-5.5 N #) [facility] CenterIarobnwSTYHJUQDLV4098-25-46 08:45:00 Test Item Value Reference Range Interpretation Comments Monocytes # (test code 0.6 See_Comment N [Aut omated message] The = Monocytes #) system which generated this result tra nsmitted reference range : <=0.8. The reference r ana was not used to int erpret this result as normal/abnormal . [facility] CenterOldrevbOQVCZKNWWK6918-14-63 08:45:00 Test Item Value Reference Range Interpretation Comments Lymphocytes (test code = Lymphocytes) 35.5 20.0-40.0 N [facility] CenterVxrsuadLRCAEQPZEP0648-92-19 08:45:00 Test Item Value Reference Range Interpretation Comments Monocytes (test code = Monocytes) 11.0 2.0-12.0 N [facility] CenterJucqvinQBRUFCBVJP8172-14-37 08:45:00 Test Item Value Reference Range Interpretation Comments Eosinophils (test code = 2.1 See_Comment N [A utomated message] The Eosinophils) system which ge nerated this result tra nsmitted reference range : <=4.0. The reference r ana was not used to int erpret this result as normal/abnormal . [facility] CenterJvvihcpGYIEDCGGGX5754-41-86 08:45:00 Test Item Value Reference Range Interpretation Comments Segs (test code = Segs) 51.1 45.0-75.0 N [facility] CenterOtiqoqtBDGZTNZJIX1403-85-33 08:45:00 Test Item Value Reference Range Interpretation Comments Sed Rate (test code = 15 See_Comment N [Auto mated message] The Sed Rate) system which ge nerated this result transmit nisa reference range : <=20. The reference range was not used to interpr et this result as donya l/abnormal. [facility] CenterXmvghjjZSROZGTYKF9323-65-10 08:45:00 Test Item Value Reference Range Interpretation Comments MCHC (test code = MCHC) 34.6 32.0-36.0 N [facility] CenterCaxainpMXPGGQZCLS0271-43-55 08:45:00 Test Item Value Reference Range Interpretation Comments MCH (test code = MCH) 32.8 pg 27.0-31.0 H [facility] CenterUefdpvvQDMTAZUEPW4467-48-95 08:45:00 Test Item Value Reference Range Interpretation Comments RDW (test code = RDW) 12.3 11.5-14.5 N [facility] CenterFmwijhpMNOJJPZNPI5935-97-20 08:45:00 Test Item Value Reference Range Interpretation Comments MPV (test code = MPV) 8.2 7.4-10.4 N [facility] CenterCctfzvtVMVOSWWVHW0937-81-02 08:45:00 Test Item Value Reference Range Interpretation Comments Platelet (test code = Platelet) 189 133-450 N [facility] CenterFevcgynLTTKILUVNQ3425-05-54 08:45:00 Test Item Value Reference Range Interpretation Comments RBC (test code = RBC) 3.63 4.20-5.40 L [facility] CenterUpoeceeYNWCRYUBMM6082-11-98 08:45:00 Test Item Value Reference Range Interpretation Comments WBC (test code = WBC) 5.5 3.7-10.4 N [facility] CenterQdcjcyiGAVEDFIDDV9448-04-13 08:45:00 Test Item Value Reference Range Interpretation Comments Hgb (test code = Hgb) 11.9 12.0-16.0 L [facility] CenterSvoedqtWLHUUIUIMD8861-25-85 08:45:00 Test Item Value Reference Range Interpretation Comments Hct (test code = Hct) 34.5 36.0-48.0 L [facility] HospitalTortbfpGTMILOELAI5762-64-40 08:45:00 Test Item Value Reference Range Interpretation Comments MCV (test code = MCV) 94.9 81.0-99.0 N [facility]TUM[facility] ZKRVBJF6955-78-55 08:45:00 Test Item Value Reference Range Interpretation Comments CA 19-9 (test code = 7.0 See_Comment N [Autom ated message] The CA 19-9) system which ge nerated this result transmit nisa reference range : <=35.0. The reference r ana was not used to interpr et this result as donya l/abnormal. [facility] HospitalSrxkopeFYKXBEKVQ4314-00-48 08:45:00 Test Item Value Reference Range Interpretation Comments Lipase Lvl (test code = Lipase Lvl) 109 73-393 N [facility] HospitalHpmqtbyAZHINKVIK5707-10-10 08:45:00 Test Item Value Reference Range Interpretation Comments Globulin (test code = Globulin) 3.1 2.0-4.0 N [facility] HospitalKtfmmchKBXWMPPKE7386-83-04 08:45:00 Test Item Value Reference Range Interpretation Comments A/G Ratio (test code = A/G Ratio) 1.0 0.7-1.6 N [facility] HospitalWhqubslGFNPGGEZW2626-19-49 08:45:00 Test Item Value Reference Range Interpretation Comments B/C Ratio (test code = B/C Ratio) 4 6-25 L [facility] HospitalJckebdzRFQIWNUUL7335-98-35 08:45:00 Test Item Value Reference Range Interpretation Comments AGAP (test code = AGAP) 11.9 10.0-20.0 N [facility] HospitalTrtknzhMPHEMWFLI5775-17-22 08:45:00 Test Item Value Reference Range Interpretation Comments eGFR (test code = eGFR) 95 [facility] HospitalCbqnhbuLRTCHRUUG3159-96-82 08:45:00 Test Item Value Reference Range Interpretation Comments AST (test code = AST) 16 <=37 N [facility] HospitalYonumtxFDNGODVXI9183-68-44 08:45:00 Test Item Value Reference Range Interpretation Comments CO2 (test code = CO2) 26 24-32 N [facility] HospitalVeajcmsOXPYILVTU7138-04-57 08:45:00 Test Item Value Reference Range Interpretation Comments Calcium Lvl (test code = Calcium Lvl) 8.0 8.5-10.5 L [facility] HospitalWbcsuqfVPGZESPFS2970-31-86 08:45:00 Test Item Value Reference Range Interpretation Comments Total Protein (test code = Total 6.1 6.4-8.4 L Protein) [facility] HospitalWksklvoGQCLDZRIW4708-68-32 08:45:00 Test Item Value Reference Range Interpretation Comments Bili Total (test code = Bili Total) 0.5 0.2-1.3 N [facility] HospitalZlmrjyiRLZYSGVKA8098-80-73 08:45:00 Test Item Value Reference Range Interpretation Comments Creatinine Lvl (test code = Creatinine 0.7 0.5-1.4 N Lvl) [facility] HospitalOunbfemRXHLUXNUP9706-40-33 08:45:00 Test Item Value Reference Range Interpretation Comments Sodium Lvl (test code = Sodium Lvl) 140 135-145 N [facility] HospitalWdwletbGCTEYZEMJ4038-97-65 08:45:00 Test Item Value Reference Range Interpretation Comments Chloride Lvl (test code = Chloride Lvl) 106 95-109 N [facility] HospitalQywjzyqHRTQCCSUK0773-02-07 08:45:00 Test Item Value Reference Range Interpretation Comments Potassium Lvl (test code = Potassium 3.9 3.5-5.1 N Lvl) [facility] HospitalUiobnlhKCSQTJIJQ4605-12-93 08:45:00 Test Item Value Reference Range Interpretation Comments ALT (test code = ALT) 20 <=65 N [facility] HospitalFgmmbwvDJTDBIXFE0111-57-01 08:45:00 Test Item Value Reference Range Interpretation Comments BUN (test code = BUN) 3 7-22 L [facility] HospitalNqdzkjrUGDOWRYXB7501-47-86 08:45:00 Test Item Value Reference Range Interpretation Comments Glucose Lvl (test code = Glucose Lvl) 115 70-99 H [facility] HospitalAymhhyqZOMSLRHTU4077-87-20 08:45:00 Test Item Value Reference Range Interpretation Comments Alk Phos (test code = Alk Phos) 74 39-136 N [facility] HospitalOfandjaYSSXPDJGW0025-24-34 08:45:00 Test Item Value Reference Range Interpretation Comments Albumin Lvl (test code = Albumin Lvl) 3.0 3.5-5.0 L [facility] CenterSnzawefXRKOBCOFXZ6750-51-94 08:45:00 Test Item Value Reference Range Interpretation Comments Eosinophils # (test code = Eosinophils 0.1 <=0.5 N #) [facility] CenterXmqswudEWOSCMTEZD6459-46-89 08:45:00 Test Item Value Reference Range Interpretation Comments Basophils (test code = Basophils) 0.3 <=1.0 N [facility] CenterTycjrczZNDTEDGNQC5940-92-87 08:45:00 Test Item Value Reference Range Interpretation Comments Segs-Bands # (test code = Segs-Bands #) 2.8 1.5-8.1 N [facility] CenterJgwlqbgABMKQYXQWF4288-96-85 08:45:00 Test Item Value Reference Range Interpretation Comments Lymphocytes # (test code = Lymphocytes 2.0 1.0-5.5 N #) [facility] CenterIccaurxMICATNUCHD8678-69-50 08:45:00 Test Item Value Reference Range Interpretation Comments Monocytes # (test code = Monocytes #) 0.6 <=0.8 N [facility] CenterXkalsgmYGAHTMPTDB9129-02-09 08:45:00 Test Item Value Reference Range Interpretation Comments Lymphocytes (test code = Lymphocytes) 35.5 20.0-40.0 N [facility] CenterIszcfbuLNLVSGVBMV7171-23-69 08:45:00 Test Item Value Reference Range Interpretation Comments Monocytes (test code = Monocytes) 11.0 2.0-12.0 N [facility] CenterHlybtjnKXYLTEOCSL6230-67-17 08:45:00 Test Item Value Reference Range Interpretation Comments Eosinophils (test code = Eosinophils) 2.1 <=4.0 N [facility] CenterWvbsleqTERUJMLSQG2358-71-72 08:45:00 Test Item Value Reference Range Interpretation Comments Segs (test code = Segs) 51.1 45.0-75.0 N [facility] CenterKnmaqanUOJCKGCDLD8872-20-88 08:45:00 Test Item Value Reference Range Interpretation Comments Sed Rate (test code = Sed Rate) 15 <=20 N [facility] CenterLwxdeduJUWELQPWLI9217-99-80 08:45:00 Test Item Value Reference Range Interpretation Comments MCHC (test code = MCHC) 34.6 32.0-36.0 N [facility] CenterBfimtyaNRMTSNPONQ3939-24-17 08:45:00 Test Item Value Reference Range Interpretation Comments MCH (test code = MCH) 32.8 pg 27.0-31.0 H [facility] CenterKzvtvukMCJGXRWLGC9518-66-18 08:45:00 Test Item Value Reference Range Interpretation Comments RDW (test code = RDW) 12.3 11.5-14.5 N [facility] CenterRctrlscWPPLZTCUCT3140-17-88 08:45:00 Test Item Value Reference Range Interpretation Comments MPV (test code = MPV) 8.2 7.4-10.4 N [facility] HospitalPxsnhstFZCURQYAZS8198-74-03 08:45:00 Test Item Value Reference Range Interpretation Comments Platelet (test code = Platelet) 189 133-450 N [facility] HospitalIgxtpomDVGNXBWDYL9531-47-81 08:45:00 Test Item Value Reference Range Interpretation Comments RBC (test code = RBC) 3.63 4.20-5.40 L [facility] HospitalLtqypoaNSGFTCPGCV0441-99-37 08:45:00 Test Item Value Reference Range Interpretation Comments WBC (test code = WBC) 5.5 3.7-10.4 N [facility] CenterQljwxxzAYMWZHJBOZ9864-74-45 08:45:00 Test Item Value Reference Range Interpretation Comments Hgb (test code = Hgb) 11.9 12.0-16.0 L [facility] HospitalIovcvbeDCAJAQUNGC3925-58-36 08:45:00 Test Item Value Reference Range Interpretation Comments Hct (test code = Hct) 34.5 36.0-48.0 L [facility] CenterAmospjaDEUDOLUCAY3497-37-95 08:45:00 Test Item Value Reference Range Interpretation Comments MCV (test code = MCV) 94.9 81.0-99.0 N [facility] SCHMAZG8023-94-72 08:45:00 Test Item Value Reference Range Interpretation Comments CA 19-9 (test code = CA 19-9) 7.0 <=35.0 N [facility] HospitalJzmtfryICSAIMCRW5807-84-12 08:45:00 Test Item Value Reference Range Interpretation Comments Lipase Lvl (test code = Lipase Lvl) 109 73-393 N [facility] HospitalHnovxprLJEIJNWMK3756-24-92 08:45:00 Test Item Value Reference Range Interpretation Comments Globulin (test code = Globulin) 3.1 2.0-4.0 N [facility] HospitalBdqkthiMWVVANOON1849-23-52 08:45:00 Test Item Value Reference Range Interpretation Comments A/G Ratio (test code = A/G Ratio) 1.0 0.7-1.6 N [facility] HospitalHyonqsqCLDJHQXXK8075-88-18 08:45:00 Test Item Value Reference Range Interpretation Comments B/C Ratio (test code = B/C Ratio) 4 6-25 L [facility] HospitalVtczlpcAMDTAACBT3462-53-03 08:45:00 Test Item Value Reference Range Interpretation Comments AGAP (test code = AGAP) 11.9 10.0-20.0 N [facility] HospitalOkpdzyaVZRUIFAVH0505-45-89 08:45:00 Test Item Value Reference Range Interpretation Comments eGFR (test code = eGFR) 95 [facility] HospitalMxiavubGVCHROVVI1371-13-95 08:45:00 Test Item Value Reference Range Interpretation Comments AST (test code = AST) 16 See_Comment N [Auto mated message] The system which ge nerated this result transmit nisa reference range : <=37. The reference range was not used to interpr et this result as donya l/abnormal. [facility] HospitalEmphpwoQYDGWYFHA3366-05-02 08:45:00 Test Item Value Reference Range Interpretation Comments CO2 (test code = CO2) 26 24-32 N [facility] HospitalFdcvovnGWPHPJMAH9467-29-69 08:45:00 Test Item Value Reference Range Interpretation Comments Calcium Lvl (test code = Calcium Lvl) 8.0 8.5-10.5 L [facility] HospitalAxszeakZYCELALBA9353-52-60 08:45:00 Test Item Value Reference Range Interpretation Comments Total Protein (test code = Total 6.1 6.4-8.4 L Protein) [facility]UleylrlBDQRYNIFR5464-89-15 08:45:00 Test Item Value Reference Range Interpretation Comments Bili Total (test code = Bili Total) 0.5 0.2-1.3 N [facility] HospitalKadmmweVCFHQTKLG9564-31-53 08:45:00 Test Item Value Reference Range Interpretation Comments Creatinine Lvl (test code = Creatinine 0.7 0.5-1.4 N Lvl) [facility] HospitalUtwrfirKANGBDALB5182-48-28 08:45:00 Test Item Value Reference Range Interpretation Comments Sodium Lvl (test code = Sodium Lvl) 140 135-145 N [facility] HospitalLnihbltFXXWBNUTZ7717-29-51 08:45:00 Test Item Value Reference Range Interpretation Comments Chloride Lvl (test code = Chloride Lvl) 106 95-109 N [facility] HospitalRfqvcvuXAVFRFTIH9097-24-87 08:45:00 Test Item Value Reference Range Interpretation Comments Potassium Lvl (test code = Potassium 3.9 3.5-5.1 N Lvl) [facility] HospitalCmrlwgxZSQIPOSNL9703-49-66 08:45:00 Test Item Value Reference Range Interpretation Comments ALT (test code = ALT) 20 See_Comment N [Auto mated message] The system which ge nerated this result transmit nisa reference range : <=65. The reference range was not used to interpr et this result as donya l/abnormal. [facility] HospitalDgijwyuGQLPQNTKL7652-32-63 08:45:00 Test Item Value Reference Range Interpretation Comments BUN (test code = BUN) 3 7-22 L [facility] HospitalWvmlhtvYCBZHJAOW9206-20-34 08:45:00 Test Item Value Reference Range Interpretation Comments Glucose Lvl (test code = Glucose Lvl) 115 70-99 H [facility] HospitalWfflcccHAXRRREJT9782-82-96 08:45:00 Test Item Value Reference Range Interpretation Comments Alk Phos (test code = Alk Phos) 74 39-136 N [facility] HospitalXzkycmeKGCNUMMJZ2403-49-95 08:45:00 Test Item Value Reference Range Interpretation Comments Albumin Lvl (test code = Albumin Lvl) 3.0 3.5-5.0 L [facility] CenterFgmaeaeMDWSZTLQAX3337-08-85 08:45:00 Test Item Value Reference Range Interpretation Comments Eosinophils # (test code 0.1 See_Comment N [A utomated message] The = Eosinophils #) system whic h generated this result tra nsmitted reference range : <=0.5. The reference r ana was not used to int erpret this result as normal/abnormal . [facility] CenterVsdzwkqBHOMJPLERA2927-68-32 08:45:00 Test Item Value Reference Range Interpretation Comments Basophils (test code = 0.3 See_Comment N [Aut omated message] The Basophils) system which ge nerated this result tra nsmitted reference range : <=1.0. The reference r ana was not used to int erpret this result as normal/abnormal . [facility] CenterPvvqzvoAOITJDZWZD8153-27-95 08:45:00 Test Item Value Reference Range Interpretation Comments Segs-Bands # (test code = Segs-Bands #) 2.8 1.5-8.1 N [facility] CenterXwfpzjfIPRRCQOJMH8728-28-06 08:45:00 Test Item Value Reference Range Interpretation Comments Lymphocytes # (test code = Lymphocytes 2.0 1.0-5.5 N #) [facility] CenterVrftqoxPEGYNKHBVT0036-65-99 08:45:00 Test Item Value Reference Range Interpretation Comments Monocytes # (test code 0.6 See_Comment N [Aut omated message] The = Monocytes #) system which generated this result tra nsmitted reference range : <=0.8. The reference r ana was not used to int erpret this result as normal/abnormal . [facility] CenterDjbzkyoSTMSLUFCWK7842-28-47 08:45:00 Test Item Value Reference Range Interpretation Comments Lymphocytes (test code = Lymphocytes) 35.5 20.0-40.0 N [facility] CenterGaybjkoUNUCVIFTJI0722-14-84 08:45:00 Test Item Value Reference Range Interpretation Comments Monocytes (test code = Monocytes) 11.0 2.0-12.0 N [facility] CenterOewnclgQJYWFGOTBW1918-94-23 08:45:00 Test Item Value Reference Range Interpretation Comments Eosinophils (test code = 2.1 See_Comment N [A utomated message] The Eosinophils) system which ge nerated this result tra nsmitted reference range : <=4.0. The reference r ana was not used to int erpret this result as normal/abnormal . [facility] CenterXvobqcnSJYVMUDEKX8575-07-89 08:45:00 Test Item Value Reference Range Interpretation Comments Segs (test code = Segs) 51.1 45.0-75.0 N [facility] CenterHjiwxqkMYUEPZTACS2296-97-37 08:45:00 Test Item Value Reference Range Interpretation Comments Sed Rate (test code = 15 See_Comment N [Auto mated message] The Sed Rate) system which ge nerated this result transmit nisa reference range : <=20. The reference range was not used to interpr et this result as donya l/abnormal. [facility] CenterThmbshxSEKEGJENHA2062-42-31 08:45:00 Test Item Value Reference Range Interpretation Comments MCHC (test code = MCHC) 34.6 32.0-36.0 N [facility] CenterBxobwjrHSCXLACEBX3400-26-01 08:45:00 Test Item Value Reference Range Interpretation Comments MCH (test code = MCH) 32.8 pg 27.0-31.0 H [facility] CenterVciqvolPTHVOAKAVC5587-69-96 08:45:00 Test Item Value Reference Range Interpretation Comments RDW (test code = RDW) 12.3 11.5-14.5 N [facility] CenterVjjlsevOUROTBTWUJ7619-45-31 08:45:00 Test Item Value Reference Range Interpretation Comments MPV (test code = MPV) 8.2 7.4-10.4 N [facility]EvyvwylOIUZRXKKRC7313-14-42 08:45:00 Test Item Value Reference Range Interpretation Comments Platelet (test code = Platelet) 189 133-450 N [facility] CenterIbglblkMZPXNSMIKQ6577-25-79 08:45:00 Test Item Value Reference Range Interpretation Comments RBC (test code = RBC) 3.63 4.20-5.40 L [facility]DgzrczhEKZIULSSIE3943-67-16 08:45:00 Test Item Value Reference Range Interpretation Comments WBC (test code = WBC) 5.5 3.7-10.4 N [facility] CenterOjgudylLEWZPNHGRN9407-26-94 08:45:00 Test Item Value Reference Range Interpretation Comments Hgb (test code = Hgb) 11.9 12.0-16.0 L [facility] CenterSmgetnpVSJWYIXDGJ3169-35-38 08:45:00 Test Item Value Reference Range Interpretation Comments Hct (test code = Hct) 34.5 36.0-48.0 L [facility] CenterRnkfgnuQBBQSHVVYI0101-02-92 08:45:00 Test Item Value Reference Range Interpretation Comments MCV (test code = MCV) 94.9 81.0-99.0 N [facility] CenterTUMOR QCTYNCX2312-85-94 08:45:00 Test Item Value Reference Range Interpretation Comments CA 19-9 (test code = 7.0 See_Comment N [Autom ated message] The CA 19-9) system which ge nerated this result transmit nisa reference range : <=35.0. The reference r ana was not used to interpr et this result as donya l/abnormal. [facility]XzcuhsuKAIAKJBZB1018-29-73 08:45:00 Test Item Value Reference Range Interpretation Comments Lipase Lvl (test code = Lipase Lvl) 109 73-393 N [facility] CenterLdrfzsfPUJZXEPQP8169-60-37 08:45:00 Test Item Value Reference Range Interpretation Comments Globulin (test code = Globulin) 3.1 2.0-4.0 N [facility] HospitalYlyhmnwLOUNAOEYU8892-40-21 08:45:00 Test Item Value Reference Range Interpretation Comments A/G Ratio (test code = A/G Ratio) 1.0 0.7-1.6 N [facility] HospitalXnksfkoHJZRUPVAS7505-81-88 08:45:00 Test Item Value Reference Range Interpretation Comments B/C Ratio (test code = B/C Ratio) 4 6-25 L [facility] HospitalUazavlhWZDUOJJNQ8010-18-03 08:45:00 Test Item Value Reference Range Interpretation Comments AGAP (test code = AGAP) 11.9 10.0-20.0 N [facility] HospitalSlmkpozBUZEXTOHX9249-21-93 08:45:00 Test Item Value Reference Range Interpretation Comments eGFR (test code = eGFR) 95 [facility] HospitalSprwwanGAFJYVARD4975-62-21 08:45:00 Test Item Value Reference Range Interpretation Comments AST (test code = AST) 16 See_Comment N [Auto mated message] The system which ge nerated this result transmit nisa reference range : <=37. The reference range was not used to interpr et this result as donya l/abnormal. [facility] HospitalMewvkbvKVEVESIKI5308-22-07 08:45:00 Test Item Value Reference Range Interpretation Comments CO2 (test code = CO2) 26 24-32 N [facility] HospitalSwfhqmhNILXRZULZ2870-08-11 08:45:00 Test Item Value Reference Range Interpretation Comments Calcium Lvl (test code = Calcium Lvl) 8.0 8.5-10.5 L [facility] HospitalLektnqbQRVNKGQNQ4509-34-89 08:45:00 Test Item Value Reference Range Interpretation Comments Total Protein (test code = Total 6.1 6.4-8.4 L Protein) [facility] HospitalMmwoncpPVQKWNCEM6591-23-12 08:45:00 Test Item Value Reference Range Interpretation Comments Bili Total (test code = Bili Total) 0.5 0.2-1.3 N [facility] HospitalQuqdasgWBTPTSIMO1139-70-58 08:45:00 Test Item Value Reference Range Interpretation Comments Creatinine Lvl (test code = Creatinine 0.7 0.5-1.4 N Lvl) [facility] HospitalCevnpueYGSDPYJPA1057-48-79 08:45:00 Test Item Value Reference Range Interpretation Comments Sodium Lvl (test code = Sodium Lvl) 140 135-145 N [facility] HospitalVoduxouBDEGSGGDJ3004-67-81 08:45:00 Test Item Value Reference Range Interpretation Comments Chloride Lvl (test code = Chloride Lvl) 106 95-109 N [facility] HospitalNpkbdkwPYGZIXLZZ6702-04-90 08:45:00 Test Item Value Reference Range Interpretation Comments Potassium Lvl (test code = Potassium 3.9 3.5-5.1 N Lvl) [facility] HospitalRyxoknoQMATQZVNE5056-67-77 08:45:00 Test Item Value Reference Range Interpretation Comments ALT (test code = ALT) 20 See_Comment N [Auto mated message] The system which ge nerated this result transmit nisa reference range : <=65. The reference range was not used to interpr et this result as donya l/abnormal. [facility] HospitalJinuhblCWWOPUXTE5703-69-89 08:45:00 Test Item Value Reference Range Interpretation Comments BUN (test code = BUN) 3 7-22 L [facility] HospitalTwdpbldVYZIMHCRS3189-71-06 08:45:00 Test Item Value Reference Range Interpretation Comments Glucose Lvl (test code = Glucose Lvl) 115 70-99 H [facility] HospitalLwwzbxeQOHCITHNF8889-21-22 08:45:00 Test Item Value Reference Range Interpretation Comments Alk Phos (test code = Alk Phos) 74 39-136 N [facility] HospitalWfuezgaEIIYIPXEM5225-63-30 08:45:00 Test Item Value Reference Range Interpretation Comments Albumin Lvl (test code = Albumin Lvl) 3.0 3.5-5.0 L [facility] CenterFohtpvnOFYPLDIYMS6889-29-78 08:45:00 Test Item Value Reference Range Interpretation Comments Eosinophils # (test code 0.1 See_Comment N [A utomated message] The = Eosinophils #) system whic h generated this result tra nsmitted reference range : <=0.5. The reference r ana was not used to int erpret this result as normal/abnormal . [facility] CenterEigzomkXDMRBGJKOB6000-94-93 08:45:00 Test Item Value Reference Range Interpretation Comments Basophils (test code = 0.3 See_Comment N [Aut omated message] The Basophils) system which ge nerated this result tra nsmitted reference range : <=1.0. The reference r ana was not used to int erpret this result as normal/abnormal . [facility] CenterVhrfgkqNOPHZFUWFU9531-92-39 08:45:00 Test Item Value Reference Range Interpretation Comments Segs-Bands # (test code = Segs-Bands #) 2.8 1.5-8.1 N [facility] CenterRrrhxycSAZQVJDJQQ5661-39-67 08:45:00 Test Item Value Reference Range Interpretation Comments Lymphocytes # (test code = Lymphocytes 2.0 1.0-5.5 N #) [facility] CenterXqvqkqpBKBUJUCDJV4223-81-98 08:45:00 Test Item Value Reference Range Interpretation Comments Monocytes # (test code 0.6 See_Comment N [Aut omated message] The = Monocytes #) system which generated this result tra nsmitted reference range : <=0.8. The reference r ana was not used to int erpret this result as normal/abnormal . [facility] CenterUwbjkkhXCBGFHVFQH9701-13-03 08:45:00 Test Item Value Reference Range Interpretation Comments Lymphocytes (test code = Lymphocytes) 35.5 20.0-40.0 N [facility] CenterTelxtqgGMSHFBZNIU2991-32-90 08:45:00 Test Item Value Reference Range Interpretation Comments Monocytes (test code = Monocytes) 11.0 2.0-12.0 N [facility] CenterDzomqwfSKKVNWIURC8233-98-39 08:45:00 Test Item Value Reference Range Interpretation Comments Eosinophils (test code = 2.1 See_Comment N [A utomated message] The Eosinophils) system which ge nerated this result tra nsmitted reference range : <=4.0. The reference r ana was not used to int erpret this result as normal/abnormal . [facility] CenterPkoipkxIRHCYMQDEW8092-97-22 08:45:00 Test Item Value Reference Range Interpretation Comments Segs (test code = Segs) 51.1 45.0-75.0 N [facility] CenterMohkbxbJUJYFNLSTN4632-56-01 08:45:00 Test Item Value Reference Range Interpretation Comments Sed Rate (test code = 15 See_Comment N [Auto mated message] The Sed Rate) system which ge nerated this result transmit nisa reference range : <=20. The reference range was not used to interpr et this result as donya l/abnormal. [facility] CenterFqyctckWPJERMUNEN6398-51-23 08:45:00 Test Item Value Reference Range Interpretation Comments MCHC (test code = MCHC) 34.6 32.0-36.0 N [facility] CenterYiezljkHSUHWPOVXT7049-86-94 08:45:00 Test Item Value Reference Range Interpretation Comments MCH (test code = MCH) 32.8 pg 27.0-31.0 H [facility] CenterMrpimlgIAJKSUHRBZ5566-31-32 08:45:00 Test Item Value Reference Range Interpretation Comments RDW (test code = RDW) 12.3 11.5-14.5 N [facility] CenterBmdoxlpMILPTCHEMF0673-20-00 08:45:00 Test Item Value Reference Range Interpretation Comments MPV (test code = MPV) 8.2 7.4-10.4 N [facility] CenterUreqgbwTVZUGZSQGK4016-84-64 08:45:00 Test Item Value Reference Range Interpretation Comments Platelet (test code = Platelet) 189 133-450 N [facility]EtsjhhuXNGNPWWMYG8560-78-25 08:45:00 Test Item Value Reference Range Interpretation Comments RBC (test code = RBC) 3.63 4.20-5.40 L [facility] CenterRcmnimtMZIZOSLKOH6564-15-93 08:45:00 Test Item Value Reference Range Interpretation Comments WBC (test code = WBC) 5.5 3.7-10.4 N [facility] HospitalDlkycfkSMZYHZHYMV6093-89-01 08:45:00 Test Item Value Reference Range Interpretation Comments Hgb (test code = Hgb) 11.9 12.0-16.0 L [facility] HospitalTnfmbruBCQTHXWOUD8158-66-23 08:45:00 Test Item Value Reference Range Interpretation Comments Hct (test code = Hct) 34.5 36.0-48.0 L [facility] HospitalOlvwxurRBDPISUKEG9933-10-39 08:45:00 Test Item Value Reference Range Interpretation Comments MCV (test code = MCV) 94.9 81.0-99.0 N [facility] CenterTUMOR NAKPPTU8181-00-36 08:45:00 Test Item Value Reference Range Interpretation Comments CA 19-9 (test code = 7.0 See_Comment N [Autom ated message] The CA 19-9) system which ge nerated this result transmit nisa reference range : <=35.0. The reference r ana was not used to interpr et this result as donya l/abnormal. [facility] CenterOvxaxnrQPUJAFNHJ0836-63-29 08:45:00 Test Item Value Reference Range Interpretation Comments Lipase Lvl (test code = Lipase Lvl) 109 73-393 N [facility] HospitalObswtlpABUHGLSZO2672-32-23 08:45:00 Test Item Value Reference Range Interpretation Comments Globulin (test code = Globulin) 3.1 2.0-4.0 N [facility] CenterBjgsiacXNEXMUNZZ1637-77-97 08:45:00 Test Item Value Reference Range Interpretation Comments A/G Ratio (test code = A/G Ratio) 1.0 0.7-1.6 N [facility] CenterSwowhzbNWFGVUMAA1617-70-97 08:45:00 Test Item Value Reference Range Interpretation Comments B/C Ratio (test code = B/C Ratio) 4 6-25 L [facility] HospitalVpbonpnWIVYPFHJC2406-27-32 08:45:00 Test Item Value Reference Range Interpretation Comments AGAP (test code = AGAP) 11.9 10.0-20.0 N [facility] HospitalZuephgyCOKMEOWHR5868-03-12 08:45:00 Test Item Value Reference Range Interpretation Comments eGFR (test code = eGFR) 95 [facility] HospitalIzfyjmuXRBFWQXKI7574-84-26 08:45:00 Test Item Value Reference Range Interpretation Comments AST (test code = AST) 16 See_Comment N [Auto mated message] The system which ge nerated this result transmit nisa reference range : <=37. The reference range was not used to interpr et this result as donya l/abnormal. [facility] HospitalLzmdyucGOPPGMEVY5162-08-10 08:45:00 Test Item Value Reference Range Interpretation Comments CO2 (test code = CO2) 26 24-32 N [facility] HospitalLcnwdarMDFLQKAAF9633-88-19 08:45:00 Test Item Value Reference Range Interpretation Comments Calcium Lvl (test code = Calcium Lvl) 8.0 8.5-10.5 L [facility] HospitalAzqqqanFPFFPTTHO4744-02-30 08:45:00 Test Item Value Reference Range Interpretation Comments Total Protein (test code = Total 6.1 6.4-8.4 L Protein) [facility] HospitalXifdfiqGHWPAXSRL9176-35-54 08:45:00 Test Item Value Reference Range Interpretation Comments Bili Total (test code = Bili Total) 0.5 0.2-1.3 N [facility] HospitalRtqkxxtNUIDBSUDA3355-43-76 08:45:00 Test Item Value Reference Range Interpretation Comments Creatinine Lvl (test code = Creatinine 0.7 0.5-1.4 N Lvl) [facility] HospitalOeuaazpRDOFCXVCB6089-16-94 08:45:00 Test Item Value Reference Range Interpretation Comments Sodium Lvl (test code = Sodium Lvl) 140 135-145 N [facility] HospitalAhltqzxWLENUFAGX0568-11-27 08:45:00 Test Item Value Reference Range Interpretation Comments Chloride Lvl (test code = Chloride Lvl) 106 95-109 N [facility] HospitalSpanbilOAAFNWEDP0791-81-81 08:45:00 Test Item Value Reference Range Interpretation Comments Potassium Lvl (test code = Potassium 3.9 3.5-5.1 N Lvl) [facility] HospitalMgcqwrxNESIWSHFZ8166-01-63 08:45:00 Test Item Value Reference Range Interpretation Comments ALT (test code = ALT) 20 See_Comment N [Auto mated message] The system which ge nerated this result transmit nisa reference range : <=65. The reference range was not used to interpr et this result as donya l/abnormal. [facility] HospitalSvdqlcsIHKJSTDXO4676-30-29 08:45:00 Test Item Value Reference Range Interpretation Comments BUN (test code = BUN) 3 7-22 L [facility] HospitalRlbtgfhVJNVTBSCG3576-08-36 08:45:00 Test Item Value Reference Range Interpretation Comments Glucose Lvl (test code = Glucose Lvl) 115 70-99 H [facility] HospitalPmwvpmkFZMBXLFZA4893-10-08 08:45:00 Test Item Value Reference Range Interpretation Comments Alk Phos (test code = Alk Phos) 74 39-136 N [facility] HospitalEkigphjVIIZAZMCM9835-92-24 08:45:00 Test Item Value Reference Range Interpretation Comments Albumin Lvl (test code = Albumin Lvl) 3.0 3.5-5.0 L [facility] CenterVrhzgekWCMCKVHLWK0950-83-89 08:45:00 Test Item Value Reference Range Interpretation Comments Eosinophils # (test code 0.1 See_Comment N [A utomated message] The = Eosinophils #) system whic h generated this result tra nsmitted reference range : <=0.5. The reference r ana was not used to int erpret this result as normal/abnormal . [facility] CenterDjlwokfOPJJQBBEUW3379-97-96 08:45:00 Test Item Value Reference Range Interpretation Comments Basophils (test code = 0.3 See_Comment N [Aut omated message] The Basophils) system which ge nerated this result tra nsmitted reference range : <=1.0. The reference r ana was not used to int erpret this result as normal/abnormal . [facility] CenterEqbfcbjLPHRAJNCWY7224-00-22 08:45:00 Test Item Value Reference Range Interpretation Comments Segs-Bands # (test code = Segs-Bands #) 2.8 1.5-8.1 N [facility] CenterBvjhnzwHVCSRRKDVL9262-64-23 08:45:00 Test Item Value Reference Range Interpretation Comments Lymphocytes # (test code = Lymphocytes 2.0 1.0-5.5 N #) [facility] CenterHtfnxzsZXHGVQYKKI9910-17-64 08:45:00 Test Item Value Reference Range Interpretation Comments Monocytes # (test code 0.6 See_Comment N [Aut omated message] The = Monocytes #) system which generated this result tra nsmitted reference range : <=0.8. The reference r ana was not used to int erpret this result as normal/abnormal . [facility] CenterItewyxqKZUWKLDELZ3350-61-01 08:45:00 Test Item Value Reference Range Interpretation Comments Lymphocytes (test code = Lymphocytes) 35.5 20.0-40.0 N [facility] CenterZcfdxbcKUIUWIAJNC1655-89-13 08:45:00 Test Item Value Reference Range Interpretation Comments Monocytes (test code = Monocytes) 11.0 2.0-12.0 N [facility] CenterLdczxrfQQCZTIAIJY8827-12-12 08:45:00 Test Item Value Reference Range Interpretation Comments Eosinophils (test code = 2.1 See_Comment N [A utomated message] The Eosinophils) system which ge nerated this result tra nsmitted reference range : <=4.0. The reference r ana was not used to int erpret this result as normal/abnormal . [facility] CenterTajrsxiHTDGOJLEEU7367-16-55 08:45:00 Test Item Value Reference Range Interpretation Comments Segs (test code = Segs) 51.1 45.0-75.0 N [facility] CenterYujiwbbGUVNOOLCQQ7310-27-62 08:45:00 Test Item Value Reference Range Interpretation Comments Sed Rate (test code = 15 See_Comment N [Auto mated message] The Sed Rate) system which ge nerated this result transmit nisa reference range : <=20. The reference range was not used to interpr et this result as donya l/abnormal. [facility] CenterFireggrQKDOMSQNOQ8179-03-39 08:45:00 Test Item Value Reference Range Interpretation Comments MCHC (test code = MCHC) 34.6 32.0-36.0 N [facility] CenterLjonvxhRGSSDQQJLX6536-24-77 08:45:00 Test Item Value Reference Range Interpretation Comments MCH (test code = MCH) 32.8 pg 27.0-31.0 H [facility] CenterOgvzenvCSAVZYIFFD2874-70-77 08:45:00 Test Item Value Reference Range Interpretation Comments RDW (test code = RDW) 12.3 11.5-14.5 N [facility] CenterJmpfwptRNSZHWQJCY8261-35-97 08:45:00 Test Item Value Reference Range Interpretation Comments MPV (test code = MPV) 8.2 7.4-10.4 N [facility] CenterPpzlyojANDXPICLFH4201-05-79 08:45:00 Test Item Value Reference Range Interpretation Comments Platelet (test code = Platelet) 189 133-450 N [facility] CenterBcpfiluOFWVYDCIWD3514-92-50 08:45:00 Test Item Value Reference Range Interpretation Comments RBC (test code = RBC) 3.63 4.20-5.40 L [facility] CenterOsuwkwhXKRJFUGQJV7298-69-78 08:45:00 Test Item Value Reference Range Interpretation Comments WBC (test code = WBC) 5.5 3.7-10.4 N [facility] HospitalBjmzebfJYSXGUQHF7697-59-65 16:51:55 Test Item Value Reference Range Interpretation Comments Lactic Acid Lvl (test code = Lactic 0.9 0.5-2.2 N Acid Lvl) [facility] HospitalNsgbdivEZGNTLOLV4538-16-58 16:51:55 Test Item Value Reference Range Interpretation Comments Lactic Acid Lvl (test code = Lactic 0.9 0.5-2.2 N Acid Lvl) [facility] HospitalHrfbhxpXRQDLMBOC6714-32-09 16:51:55 Test Item Value Reference Range Interpretation Comments Lactic Acid Lvl (test code = Lactic 0.9 0.5-2.2 N Acid Lvl) [facility] HospitalDdjlqywMCAISHBVO1641-19-49 16:51:55 Test Item Value Reference Range Interpretation Comments Lactic Acid Lvl (test code = Lactic 0.9 0.5-2.2 N Acid Lvl) [facility] HospitalIfgtpgoLGBBDRNLS6357-08-96 16:51:55 Test Item Value Reference Range Interpretation Comments Lactic Acid Lvl (test code = Lactic 0.9 0.5-2.2 N Acid Lvl) [facility] HospitalIlxfoejUOOIQQWYW4167-34-87 16:51:00 Test Item Value Reference Range Interpretation Comments eGFR (test code = eGFR) 95 [facility] HospitalVujgadbSCOGDJWQM7032-94-91 16:51:00 Test Item Value Reference Range Interpretation Comments Potassium Lvl (test code = Potassium 4.1 3.5-5.1 N Lvl) [facility] HospitalAbltjwcJOBDTLNSM8994-59-80 16:51:00 Test Item Value Reference Range Interpretation Comments Chloride Lvl (test code = Chloride Lvl) 107 95-109 N [facility] HospitalBufrqqmFMAVBROKB5836-91-29 16:51:00 Test Item Value Reference Range Interpretation Comments Sodium Lvl (test code = Sodium Lvl) 140 135-145 N [facility] [facility]PT[facility]WBGD8288-39-09 16:51:00 Test Item Value Reference Range Interpretation Comments Glucose Lvl (test code = Glucose Lvl) 102 70-99 [facility]XcmrfobKGMVJBDSR3080-93-44 16:51:00 Test Item Value Reference Range Interpretation Comments BUN (test code = BUN) 7 7-22 N [facility] HospitalGuxsxmlSHEXMVGAI8123-91-15 16:51:00 Test Item Value Reference Range Interpretation Comments CO2 (test code = CO2) 25 24-32 N [facility] HospitalGhmpgbuSQNBOREUM4308-42-27 16:51:00 Test Item Value Reference Range Interpretation Comments Calcium Lvl (test code = Calcium Lvl) 8.2 8.5-10.5 L [facility] HospitalKyynsviGJGPGAMZZ8768-35-06 16:51:00 Test Item Value Reference Range Interpretation Comments Creatinine Lvl (test code = Creatinine 0.7 0.5-1.4 N Lvl) [facility] HospitalIlbihxtVGOJFVQDO0044-05-53 16:51:00 Test Item Value Reference Range Interpretation Comments AGAP (test code = AGAP) 12.1 10.0-20.0 N [facility] HospitalFghymwoTYLPGHGMJ1098-70-25 16:51:00 Test Item Value Reference Range Interpretation Comments Ketone Quantitative (test code = Ketone 1.38 H Quantitative) [facility] HospitalMowpwccEAZWEUQVZ2258-46-39 16:51:00 Test Item Value Reference Range Interpretation Comments eGFR (test code = eGFR) 95 [facility] HospitalBwbjayxSZVFGQSQM4950-15-35 16:51:00 Test Item Value Reference Range Interpretation Comments Potassium Lvl (test code = Potassium 4.1 3.5-5.1 N Lvl) [facility] HospitalUnahiqrFUCQQUJAO2326-01-26 16:51:00 Test Item Value Reference Range Interpretation Comments Chloride Lvl (test code = Chloride Lvl) 107 95-109 N [facility] HospitalGneskolYTQMIFJWZ5086-47-50 16:51:00 Test Item Value Reference Range Interpretation Comments Sodium Lvl (test code = Sodium Lvl) 140 135-145 N [facility] HospitalWsgwfhdZUBODQHBZ1612-24-98 16:51:00 Test Item Value Reference Range Interpretation Comments Glucose Lvl (test code = Glucose Lvl) 102 70-99 H [facility] HospitalWuqfecjEHICPCCCC5506-79-25 16:51:00 Test Item Value Reference Range Interpretation Comments BUN (test code = BUN) 7 7-22 N [facility] HospitalGgpdpflRNEDCRHAV4831-52-45 16:51:00 Test Item Value Reference Range Interpretation Comments CO2 (test code = CO2) 25 24-32 N [facility] HospitalKrjtigsTILDYYSCX6292-69-10 16:51:00 Test Item Value Reference Range Interpretation Comments Calcium Lvl (test code = Calcium Lvl) 8.2 8.5-10.5 L [facility] HospitalVjjbpcqFFUMKVFSY9800-87-10 16:51:00 Test Item Value Reference Range Interpretation Comments Creatinine Lvl (test code = Creatinine 0.7 0.5-1.4 N Lvl) [facility] HospitalGctcqxuTRAGPJTUA5398-23-79 16:51:00 Test Item Value Reference Range Interpretation Comments AGAP (test code = AGAP) 12.1 10.0-20.0 N [facility] HospitalVrsnclzNIBVKWUTC5517-28-57 16:51:00 Test Item Value Reference Range Interpretation Comments Ketone Quantitative (test code = Ketone 1.38 H Quantitative) [facility] HospitalToyzbtaBHLKEQTLK8757-32-68 16:51:00 Test Item Value Reference Range Interpretation Comments eGFR (test code = eGFR) 95 [facility] HospitalMlnthpsQEVCQUSNB4357-68-31 16:51:00 Test Item Value Reference Range Interpretation Comments Potassium Lvl (test code = Potassium 4.1 3.5-5.1 N Lvl) [facility] HospitalImjooaoEFOACIGFK2001-32-11 16:51:00 Test Item Value Reference Range Interpretation Comments Chloride Lvl (test code = Chloride Lvl) 107 95-109 N [facility] HospitalIqyyuikIYQNZKVRH7079-58-47 16:51:00 Test Item Value Reference Range Interpretation Comments Sodium Lvl (test code = Sodium Lvl) 140 135-145 N [facility] HospitalZdezewlJKWUSRNQO4710-90-54 16:51:00 Test Item Value Reference Range Interpretation Comments Glucose Lvl (test code = Glucose Lvl) 102 70-99 H [facility] HospitalHwvgglyDZIGQSSPV7049-64-90 16:51:00 Test Item Value Reference Range Interpretation Comments BUN (test code = BUN) 7 7-22 N [facility] HospitalOnfjgrzHYYDJLAAH6630-03-64 16:51:00 Test Item Value Reference Range Interpretation Comments CO2 (test code = CO2) 25 24-32 N [facility] HospitalQydpxnyCOODDSUGP3044-22-17 16:51:00 Test Item Value Reference Range Interpretation Comments Calcium Lvl (test code = Calcium Lvl) 8.2 8.5-10.5 L [facility] HospitalLlxgevyAYHTLDGOI9058-34-43 16:51:00 Test Item Value Reference Range Interpretation Comments Creatinine Lvl (test code = Creatinine 0.7 0.5-1.4 N Lvl) [facility] HospitalYdnuyyjRVIBUFKCY9794-45-10 16:51:00 Test Item Value Reference Range Interpretation Comments AGAP (test code = AGAP) 12.1 10.0-20.0 N [facility] HospitalPwoxaohDZJHQZRAF4281-01-00 16:51:00 Test Item Value Reference Range Interpretation Comments Ketone Quantitative (test code = Ketone 1.38 H Quantitative) [facility] HospitalYyqzuuaQWHXWULJD5966-03-06 16:51:00 Test Item Value Reference Range Interpretation Comments eGFR (test code = eGFR) 95 [facility] HospitalLriiccoFGRGHXSXK0232-67-70 16:51:00 Test Item Value Reference Range Interpretation Comments Potassium Lvl (test code = Potassium 4.1 3.5-5.1 N Lvl) [facility] HospitalLbxuchtMIIGEICMO3074-02-03 16:51:00 Test Item Value Reference Range Interpretation Comments Chloride Lvl (test code = Chloride Lvl) 107 95-109 N [facility] HospitalSvastilMABHBMKVP4103-65-69 16:51:00 Test Item Value Reference Range Interpretation Comments Sodium Lvl (test code = Sodium Lvl) 140 135-145 N [facility] HospitalEervjzbSFGWEFHZO3311-63-90 16:51:00 Test Item Value Reference Range Interpretation Comments Glucose Lvl (test code = Glucose Lvl) 102 70-99 H [facility] HospitalDqczensMGEJNQMTA4310-39-22 16:51:00 Test Item Value Reference Range Interpretation Comments BUN (test code = BUN) 7 7-22 N [facility] HospitalAvblrulJAGQOJCUF3005-06-22 16:51:00 Test Item Value Reference Range Interpretation Comments CO2 (test code = CO2) 25 24-32 N [facility] HospitalHmzbxlhRVIUVCSHD3413-93-85 16:51:00 Test Item Value Reference Range Interpretation Comments Calcium Lvl (test code = Calcium Lvl) 8.2 8.5-10.5 L [facility] HospitalQvhzrihYUKLGETKO6131-12-03 16:51:00 Test Item Value Reference Range Interpretation Comments Creatinine Lvl (test code = Creatinine 0.7 0.5-1.4 N Lvl) [facility] HospitalQoitsneXLZQDVGJG2683-88-80 16:51:00 Test Item Value Reference Range Interpretation Comments AGAP (test code = AGAP) 12.1 10.0-20.0 N [facility] HospitalAeqnxylKPCMHJRWS7924-23-74 16:51:00 Test Item Value Reference Range Interpretation Comments Ketone Quantitative (test code = Ketone 1.38 H Quantitative) [facility] HospitalGgebkmcRUMVBUVNL4169-84-63 16:51:00 Test Item Value Reference Range Interpretation Comments eGFR (test code = eGFR) 95 [facility] HospitalQwzmgmsAADMBPXNO2240-46-65 16:51:00 Test Item Value Reference Range Interpretation Comments Potassium Lvl (test code = Potassium 4.1 3.5-5.1 N Lvl) [facility] HospitalWfddwcaDPNVXMXAS6355-60-07 16:51:00 Test Item Value Reference Range Interpretation Comments Chloride Lvl (test code = Chloride Lvl) 107 95-109 N [facility] HospitalGtoabgbNBIFQTMRO4047-63-37 16:51:00 Test Item Value Reference Range Interpretation Comments Sodium Lvl (test code = Sodium Lvl) 140 135-145 N [facility] HospitalAjetpxlXHTYGLQTR4659-61-05 16:51:00 Test Item Value Reference Range Interpretation Comments Glucose Lvl (test code = Glucose Lvl) 102 70-99 H [facility] HospitalCcgtpueDVOZMOLYW9671-48-63 16:51:00 Test Item Value Reference Range Interpretation Comments BUN (test code = BUN) 7 7-22 N [facility] HospitalNimlimdCJSYJOEEB0720-03-57 16:51:00 Test Item Value Reference Range Interpretation Comments CO2 (test code = CO2) 25 24-32 N [facility] HospitalRwnolclOXMJFRAHQ2932-73-65 16:51:00 Test Item Value Reference Range Interpretation Comments Calcium Lvl (test code = Calcium Lvl) 8.2 8.5-10.5 L [facility] HospitalTyemvpkHJOQTATYX4871-94-54 16:51:00 Test Item Value Reference Range Interpretation Comments Creatinine Lvl (test code = Creatinine 0.7 0.5-1.4 N Lvl) [facility] HospitalBfqefkgRHGPKGKHX8635-76-45 16:51:00 Test Item Value Reference Range Interpretation Comments AGAP (test code = AGAP) 12.1 10.0-20.0 N [facility] HospitalVfkkiqmRZHZHGGAM5913-51-80 16:51:00 Test Item Value Reference Range Interpretation Comments Ketone Quantitative (test code = Ketone 1.38 H Quantitative) [facility] HospitalFtemgvlECPMWTDVW1210-96-08 07:55:00 Test Item Value Reference Range Interpretation Comments Magnesium Lvl (test code = Magnesium 1.8 1.8-2.4 N Lvl) [facility] HospitalQcwqzljKRYMSVKRW0486-67-08 07:55:00 Test Item Value Reference Range Interpretation Comments Lipase Lvl (test code = Lipase Lvl) 119 73-393 N [facility] HospitalMqwmhinESJPNGAFZ4187-45-83 07:55:00 Test Item Value Reference Range Interpretation Comments Alk Phos (test code = Alk Phos) 66 39-136 N [facility] HospitalWfsabbwPJCNDFYSI0403-42-64 07:55:00 Test Item Value Reference Range Interpretation Comments ALT (test code = ALT) 18 See_Comment N [Auto mated message] The system which ge nerated this result transmit nisa reference range : <=65. The reference range was not used to interpr et this result as donya l/abnormal. [facility] HospitalApcmhehNYVRULCSS5847-75-15 07:55:00 Test Item Value Reference Range Interpretation Comments Albumin Lvl (test code = Albumin Lvl) 2.9 3.5-5.0 L [facility] HospitalFixlywtJZAQDATRA1795-79-15 07:55:00 Test Item Value Reference Range Interpretation Comments AST (test code = AST) 24 See_Comment N [Auto mated message] The system which ge nerated this result transmit nisa reference range : <=37. The reference range was not used to interpr et this result as donya l/abnormal. [facility] HospitalGbkomtvLPLSGHLEH5639-27-04 07:55:00 Test Item Value Reference Range Interpretation Comments Bili Total (test code = Bili Total) 0.7 0.2-1.3 N [facility] HospitalFarclluOVOHGFIAA5262-41-94 07:55:00 Test Item Value Reference Range Interpretation Comments Total Protein (test code = Total 5.7 6.4-8.4 L Protein) [facility] HospitalVhtnrwrURXRXFDQK4632-67-65 07:55:00 Test Item Value Reference Range Interpretation Comments B/C Ratio (test code = B/C Ratio) 22 6-25 N [facility] HospitalCaecuggUFAWTLAPM0310-98-45 07:55:00 Test Item Value Reference Range Interpretation Comments A/G Ratio (test code = A/G Ratio) 1.0 0.7-1.6 N [facility] HospitalSddwwswVNXCVHIQR7648-20-21 07:55:00 Test Item Value Reference Range Interpretation Comments Globulin (test code = Globulin) 2.8 2.0-4.0 N [facility]RcvyfprRZEKZJODHD0138-11-51 07:55:00 Test Item Value Reference Range Interpretation Comments Monocytes (test code = Monocytes) 8.6 2.0-12.0 N [facility] CenterXkhfhkbBLRIMBBSIT1732-81-74 07:55:00 Test Item Value Reference Range Interpretation Comments Lymphocytes (test code = Lymphocytes) 23.8 20.0-40.0 N [facility] CenterOhsajcqSULIFCCIQS7726-42-41 07:55:00 Test Item Value Reference Range Interpretation Comments Eosinophils (test code = 0.6 See_Comment N [A utomated message] The Eosinophils) system which ge nerated this result tra nsmitted reference range : <=4.0. The reference r ana was not used to int erpret this result as normal/abnormal . [facility] CenterJkwghkmYIDGTTBSUW0287-38-34 07:55:00 Test Item Value Reference Range Interpretation Comments Segs (test code = Segs) 66.4 45.0-75.0 N [facility] CenterWjqhypjJXRZGQKMRW3382-88-64 07:55:00 Test Item Value Reference Range Interpretation Comments Monocytes # (test code 0.8 See_Comment N [Aut omated message] The = Monocytes #) system which generated this result tra nsmitted reference range : <=0.8. The reference r ana was not used to int erpret this result as normal/abnormal . [facility] CenterIfepgxpIELNSOEWNE6018-48-21 07:55:00 Test Item Value Reference Range Interpretation Comments Lymphocytes # (test code = Lymphocytes 2.1 1.0-5.5 N #) [facility] CenterNlkrtviKAWENWUESD6638-46-74 07:55:00 Test Item Value Reference Range Interpretation Comments Basophils (test code = 0.6 See_Comment N [Aut omated message] The Basophils) system which ge nerated this result tra nsmitted reference range : <=1.0. The reference r ana was not used to int erpret this result as normal/abnormal . [facility] CenterRqgriomHMLHWTAMQU8164-73-27 07:55:00 Test Item Value Reference Range Interpretation Comments Segs-Bands # (test code = Segs-Bands #) 5.9 1.5-8.1 N [facility] CenterJzzliivTEDVEOQCYS3709-12-43 07:55:00 Test Item Value Reference Range Interpretation Comments Eosinophils # (test code 0.1 See_Comment N [A utomated message] The = Eosinophils #) system whic h generated this result tra nsmitted reference range : <=0.5. The reference r ana was not used to int erpret this result as normal/abnormal . [facility] CenterWrgnlmyVNKGGTHDOT6712-68-69 07:55:00 Test Item Value Reference Range Interpretation Comments Basophils # (test code 0.1 See_Comment N [Aut omated message] The = Basophils #) system which generated this result tra nsmitted reference range : <=0.2. The reference r ana was not used to int erpret this result as normal/abnormal . [facility] CenterCklbrzxRGAGSGNQVA1750-45-63 07:55:00 Test Item Value Reference Range Interpretation Comments RDW (test code = RDW) 12.7 11.5-14.5 N [facility] CenterJkmjwxyNPWJCEIBJX7722-31-81 07:55:00 Test Item Value Reference Range Interpretation Comments MCHC (test code = MCHC) 34.1 32.0-36.0 N [facility] CenterPygmugdDGSTMGIIVW4727-76-99 07:55:00 Test Item Value Reference Range Interpretation Comments MCV (test code = MCV) 95.7 81.0-99.0 N [facility] CenterLqexzzcWXJSCXSEGB1968-34-58 07:55:00 Test Item Value Reference Range Interpretation Comments Hgb (test code = Hgb) 11.5 12.0-16.0 L [facility] CenterDjjnvsiEQBHTBJWSW4918-94-32 07:55:00 Test Item Value Reference Range Interpretation Comments Hct (test code = Hct) 33.6 36.0-48.0 L [facility] CenterCcrrkukLXGZRNGVLC7136-15-18 07:55:00 Test Item Value Reference Range Interpretation Comments MCH (test code = MCH) 32.6 pg 27.0-31.0 H [facility] CenterQyosltvOMEQBMZMNC1286-20-21 07:55:00 Test Item Value Reference Range Interpretation Comments MPV (test code = MPV) 8.5 7.4-10.4 N [facility] CenterGjzgfbyIYBIWLMYXX6322-66-94 07:55:00 Test Item Value Reference Range Interpretation Comments Platelet (test code = Platelet) 168 133-450 N [facility] CenterDutofyvXIRXFYVPXY2552-07-12 07:55:00 Test Item Value Reference Range Interpretation Comments RBC (test code = RBC) 3.52 4.20-5.40 L [facility] CenterXdnjobnYZCXQERDTN9200-33-22 07:55:00 Test Item Value Reference Range Interpretation Comments WBC (test code = WBC) 8.9 3.7-10.4 N [facility] HospitalEzfmtkgXEKOJIKBV2509-55-29 07:55:00 Test Item Value Reference Range Interpretation Comments Magnesium Lvl (test code = Magnesium 1.8 1.8-2.4 N Lvl) [facility] HospitalHsromczQRVTPEUOK0614-77-78 07:55:00 Test Item Value Reference Range Interpretation Comments Lipase Lvl (test code = Lipase Lvl) 119 73-393 N [facility] HospitalVegkavqPTSANIZTD9643-58-49 07:55:00 Test Item Value Reference Range Interpretation Comments Alk Phos (test code = Alk Phos) 66 39-136 N [facility] HospitalPznoeahZCRALQFXE8927-36-99 07:55:00 Test Item Value Reference Range Interpretation Comments ALT (test code = ALT) 18 See_Comment N [Auto mated message] The system which ge nerated this result transmit nisa reference range : <=65. The reference range was not used to interpr et this result as donya l/abnormal. [facility] HospitalRklpxgeNWIGOCMSA5447-92-50 07:55:00 Test Item Value Reference Range Interpretation Comments Albumin Lvl (test code = Albumin Lvl) 2.9 3.5-5.0 L [facility] HospitalKwzstsuRZXERGNXB8203-03-81 07:55:00 Test Item Value Reference Range Interpretation Comments AST (test code = AST) 24 See_Comment N [Auto mated message] The system which ge nerated this result transmit nisa reference range : <=37. The reference range was not used to interpr et this result as donya l/abnormal. [facility] HospitalIfkznvaLYTBXCOMU7979-24-87 07:55:00 Test Item Value Reference Range Interpretation Comments Bili Total (test code = Bili Total) 0.7 0.2-1.3 N [facility] HospitalGwrqikxZUUQXZFUU1048-47-73 07:55:00 Test Item Value Reference Range Interpretation Comments Total Protein (test code = Total 5.7 6.4-8.4 L Protein) [facility] HospitalHqzqektYXSRBHEDP7788-31-29 07:55:00 Test Item Value Reference Range Interpretation Comments B/C Ratio (test code = B/C Ratio) 22 6-25 N [facility] HospitalTqnjdwkYJGAMOXSK1135-13-12 07:55:00 Test Item Value Reference Range Interpretation Comments A/G Ratio (test code = A/G Ratio) 1.0 0.7-1.6 N [facility] HospitalFobfnirLSHWXHLZZ9885-22-06 07:55:00 Test Item Value Reference Range Interpretation Comments Globulin (test code = Globulin) 2.8 2.0-4.0 N [facility] CenterMvfcibfGCYDBEIAQH3704-11-74 07:55:00 Test Item Value Reference Range Interpretation Comments Monocytes (test code = Monocytes) 8.6 2.0-12.0 N [facility] CenterIfmjigvPKIHLUAEVI7683-47-64 07:55:00 Test Item Value Reference Range Interpretation Comments Lymphocytes (test code = Lymphocytes) 23.8 20.0-40.0 N [facility] CenterYohndkwHMQPNJZWMS0494-01-89 07:55:00 Test Item Value Reference Range Interpretation Comments Eosinophils (test code = 0.6 See_Comment N [A utomated message] The Eosinophils) system which ge nerated this result tra nsmitted reference range : <=4.0. The reference r ana was not used to int erpret this result as normal/abnormal . [facility] CenterXwwzrzcBOBYYHDLBM7908-29-17 07:55:00 Test Item Value Reference Range Interpretation Comments Segs (test code = Segs) 66.4 45.0-75.0 N [facility] CenterWgidyirXLEGYFWWDV9120-34-15 07:55:00 Test Item Value Reference Range Interpretation Comments Monocytes # (test code 0.8 See_Comment N [Aut omated message] The = Monocytes #) system which generated this result tra nsmitted reference range : <=0.8. The reference r naa was not used to int erpret this result as normal/abnormal . [facility] CenterCqnwydqBFSMOWRSZX8680-55-18 07:55:00 Test Item Value Reference Range Interpretation Comments Lymphocytes # (test code = Lymphocytes 2.1 1.0-5.5 N #) [facility] CenterKyssbcdZNLFPMJCWG9455-10-92 07:55:00 Test Item Value Reference Range Interpretation Comments Basophils (test code = 0.6 See_Comment N [Aut omated message] The Basophils) system which ge nerated this result tra nsmitted reference range : <=1.0. The reference r ana was not used to int erpret this result as normal/abnormal . [facility] CenterOoulghkHQCDFVTJJM9860-45-88 07:55:00 Test Item Value Reference Range Interpretation Comments Segs-Bands # (test code = Segs-Bands #) 5.9 1.5-8.1 N [facility] CenterGghqzrqLJRPGXTLNH0680-33-96 07:55:00 Test Item Value Reference Range Interpretation Comments Eosinophils # (test code 0.1 See_Comment N [A utomated message] The = Eosinophils #) system whic h generated this result tra nsmitted reference range : <=0.5. The reference r ana was not used to int erpret this result as normal/abnormal . [facility] CenterVakcdenDMOIZDLONR4358-60-72 07:55:00 Test Item Value Reference Range Interpretation Comments Basophils # (test code 0.1 See_Comment N [Aut omated message] The = Basophils #) system which generated this result tra nsmitted reference range : <=0.2. The reference r ana was not used to int erpret this result as normal/abnormal . [facility] CenterIncbtxuAOMITBQMLM9362-00-55 07:55:00 Test Item Value Reference Range Interpretation Comments RDW (test code = RDW) 12.7 11.5-14.5 N [facility] CenterGfakdlfUEBSONGJIZ5295-65-69 07:55:00 Test Item Value Reference Range Interpretation Comments MCHC (test code = MCHC) 34.1 32.0-36.0 N [facility] CenterMjynyjwFEFYWTLOHK4545-81-69 07:55:00 Test Item Value Reference Range Interpretation Comments MCV (test code = MCV) 95.7 81.0-99.0 N [facility] CenterLnnbjadMQARXZYGGH0800-71-69 07:55:00 Test Item Value Reference Range Interpretation Comments Hgb (test code = Hgb) 11.5 12.0-16.0 L [facility] CenterDbxvfjeUVNNHEIYIL7909-90-42 07:55:00 Test Item Value Reference Range Interpretation Comments Hct (test code = Hct) 33.6 36.0-48.0 L [facility] CenterPhlchsnVMLUNMKTBQ9296-39-18 07:55:00 Test Item Value Reference Range Interpretation Comments MCH (test code = MCH) 32.6 pg 27.0-31.0 H [facility] CenterOaontmqGWATVUWHTU6458-90-28 07:55:00 Test Item Value Reference Range Interpretation Comments MPV (test code = MPV) 8.5 7.4-10.4 N [facility] CenterXsbsuugKIGFDZIGOW1924-33-47 07:55:00 Test Item Value Reference Range Interpretation Comments Platelet (test code = Platelet) 168 133-450 N [facility] CenterIsjsxfvRTSJUDWOIN1929-06-80 07:55:00 Test Item Value Reference Range Interpretation Comments RBC (test code = RBC) 3.52 4.20-5.40 L [facility] CenterEqkggbaQWPETPMZQD7212-78-35 07:55:00 Test Item Value Reference Range Interpretation Comments WBC (test code = WBC) 8.9 3.7-10.4 N [facility] HospitalDixttnbOJYDOQVUL4955-02-97 07:55:00 Test Item Value Reference Range Interpretation Comments Magnesium Lvl (test code = Magnesium 1.8 1.8-2.4 N Lvl) [facility] HospitalSuwuoffKLTUYAJOP8080-60-65 07:55:00 Test Item Value Reference Range Interpretation Comments Lipase Lvl (test code = Lipase Lvl) 119 73-393 N [facility] HospitalTiybatiQFVFAIAJV9876-29-52 07:55:00 Test Item Value Reference Range Interpretation Comments Alk Phos (test code = Alk Phos) 66 39-136 N [facility] HospitalMvexlxyRQRKUDBCD0078-14-40 07:55:00 Test Item Value Reference Range Interpretation Comments ALT (test code = ALT) 18 See_Comment N [Auto mated message] The system which ge nerated this result transmit nisa reference range : <=65. The reference range was not used to interpr et this result as donya l/abnormal. [facility] HospitalGfhrlnnGTBIBUEFE9479-65-05 07:55:00 Test Item Value Reference Range Interpretation Comments Albumin Lvl (test code = Albumin Lvl) 2.9 3.5-5.0 L [facility] HospitalTsdluwhRGQIMXIGJ4563-06-31 07:55:00 Test Item Value Reference Range Interpretation Comments AST (test code = AST) 24 See_Comment N [Auto mated message] The system which ge nerated this result transmit nisa reference range : <=37. The reference range was not used to interpr et this result as donya l/abnormal. [facility] HospitalKofwdmlXGGZTBRAG4749-75-07 07:55:00 Test Item Value Reference Range Interpretation Comments Bili Total (test code = Bili Total) 0.7 0.2-1.3 N [facility] HospitalQmpggxbGTEHGLRCB6696-71-47 07:55:00 Test Item Value Reference Range Interpretation Comments Total Protein (test code = Total 5.7 6.4-8.4 L Protein) [facility] HospitalJebyqneJGEZWQKFZ2230-56-78 07:55:00 Test Item Value Reference Range Interpretation Comments B/C Ratio (test code = B/C Ratio) 22 6-25 N [facility] HospitalFtlzfesGLSDDNFIV2091-01-05 07:55:00 Test Item Value Reference Range Interpretation Comments A/G Ratio (test code = A/G Ratio) 1.0 0.7-1.6 N [facility] HospitalWzynffhQMPXRVWPV7477-94-00 07:55:00 Test Item Value Reference Range Interpretation Comments Globulin (test code = Globulin) 2.8 2.0-4.0 N [facility] CenterHwsoyjhNYAAINEADT8327-16-20 07:55:00 Test Item Value Reference Range Interpretation Comments Monocytes (test code = Monocytes) 8.6 2.0-12.0 N [facility] CenterLgmsbueDFQHRHDKXI3804-21-99 07:55:00 Test Item Value Reference Range Interpretation Comments Lymphocytes (test code = Lymphocytes) 23.8 20.0-40.0 N [facility] CenterSbghhbtMJRGOLJWAM8007-81-58 07:55:00 Test Item Value Reference Range Interpretation Comments Eosinophils (test code = 0.6 See_Comment N [A utomated message] The Eosinophils) system which ge nerated this result tra nsmitted reference range : <=4.0. The reference r ana was not used to int erpret this result as normal/abnormal . [facility]KgiwrcrKNGDOFWYFU4674-18-93 07:55:00 Test Item Value Reference Range Interpretation Comments Segs (test code = Segs) 66.4 45.0-75.0 N [facility] CenterCkltnjmHYQQVCFEJW6454-27-20 07:55:00 Test Item Value Reference Range Interpretation Comments Monocytes # (test code 0.8 See_Comment N [Aut omated message] The = Monocytes #) system which generated this result tra nsmitted reference range : <=0.8. The reference r ana was not used to int erpret this result as normal/abnormal . [facility] CenterFjkuayrWFLAGPEFBK8095-35-57 07:55:00 Test Item Value Reference Range Interpretation Comments Lymphocytes # (test code = Lymphocytes 2.1 1.0-5.5 N #) [facility] CenterIspwuhyYKWZOKKVMH3841-60-80 07:55:00 Test Item Value Reference Range Interpretation Comments Basophils (test code = 0.6 See_Comment N [Aut omated message] The Basophils) system which ge nerated this result tra nsmitted reference range : <=1.0. The reference r ana was not used to int erpret this result as normal/abnormal . [facility] CenterUbnhuhfPXEWGQQDMT6301-75-90 07:55:00 Test Item Value Reference Range Interpretation Comments Segs-Bands # (test code = Segs-Bands #) 5.9 1.5-8.1 N [facility] CenterArhvytiRMLFZNMEWL8423-40-75 07:55:00 Test Item Value Reference Range Interpretation Comments Eosinophils # (test code 0.1 See_Comment N [A utomated message] The = Eosinophils #) system whic h generated this result tra nsmitted reference range : <=0.5. The reference r ana was not used to int erpret this result as normal/abnormal . [facility] CenterPkfdbedQAOQZPADCG4982-40-53 07:55:00 Test Item Value Reference Range Interpretation Comments Basophils # (test code 0.1 See_Comment N [Aut omated message] The = Basophils #) system which generated this result tra nsmitted reference range : <=0.2. The reference r ana was not used to int erpret this result as normal/abnormal . [facility] CenterOohyudoNFJSOEHRLT3132-29-88 07:55:00 Test Item Value Reference Range Interpretation Comments RDW (test code = RDW) 12.7 11.5-14.5 N [facility] CenterBvlwlaoIYWUKFSBDI3446-41-01 07:55:00 Test Item Value Reference Range Interpretation Comments MCHC (test code = MCHC) 34.1 32.0-36.0 N [facility] CenterVrhsgtvCYODGQNGSI1095-58-83 07:55:00 Test Item Value Reference Range Interpretation Comments MCV (test code = MCV) 95.7 81.0-99.0 N [facility] CenterSzsuzylSZULQLCFAG5959-50-60 07:55:00 Test Item Value Reference Range Interpretation Comments Hgb (test code = Hgb) 11.5 12.0-16.0 L [facility] CenterCtpdduwFWMJCDNGKR4415-77-25 07:55:00 Test Item Value Reference Range Interpretation Comments Hct (test code = Hct) 33.6 36.0-48.0 L [facility] CenterXknkntoBFFGGMBRQI0555-89-27 07:55:00 Test Item Value Reference Range Interpretation Comments MCH (test code = MCH) 32.6 pg 27.0-31.0 H [facility] CenterMuxefkdMHVFBCBZCV0981-18-43 07:55:00 Test Item Value Reference Range Interpretation Comments MPV (test code = MPV) 8.5 7.4-10.4 N [facility] CenterAevzhkdJGARXATUUT3232-30-80 07:55:00 Test Item Value Reference Range Interpretation Comments Platelet (test code = Platelet) 168 133-450 N [facility] CenterHrosfdcJGNNUMBDTL0578-02-56 07:55:00 Test Item Value Reference Range Interpretation Comments RBC (test code = RBC) 3.52 4.20-5.40 L [facility] CenterUsdcoveUVMOPHVETK8065-28-32 07:55:00 Test Item Value Reference Range Interpretation Comments WBC (test code = WBC) 8.9 3.7-10.4 N [facility]PrcqadzQKBBJRWME7580-67-20 07:55:00 Test Item Value Reference Range Interpretation Comments Magnesium Lvl (test code = Magnesium 1.8 1.8-2.4 N Lvl) [facility] HospitalYfmihqbZVJISJENF0643-78-17 07:55:00 Test Item Value Reference Range Interpretation Comments Lipase Lvl (test code = Lipase Lvl) 119 73-393 N [facility] HospitalKtcidkzNJPRFECKK7763-87-85 07:55:00 Test Item Value Reference Range Interpretation Comments Alk Phos (test code = Alk Phos) 66 39-136 N [facility] HospitalAzovjzhPAUKOIKDE8243-82-86 07:55:00 Test Item Value Reference Range Interpretation Comments ALT (test code = ALT) 18 See_Comment N [Auto mated message] The system which ge nerated this result transmit nisa reference range : <=65. The reference range was not used to interpr et this result as donya l/abnormal. [facility] HospitalNhponcjZGGLQVJFO3998-22-38 07:55:00 Test Item Value Reference Range Interpretation Comments Albumin Lvl (test code = Albumin Lvl) 2.9 3.5-5.0 L [facility] HospitalJxjpceuIWMKLWKHG0093-86-40 07:55:00 Test Item Value Reference Range Interpretation Comments AST (test code = AST) 24 See_Comment N [Auto mated message] The system which ge nerated this result transmit nisa reference range : <=37. The reference range was not used to interpr et this result as donya l/abnormal. [facility] HospitalYntcxkvCEEKEUXBR7833-24-83 07:55:00 Test Item Value Reference Range Interpretation Comments Bili Total (test code = Bili Total) 0.7 0.2-1.3 N [facility] HospitalUysubfhMLDDDOAQD6254-44-47 07:55:00 Test Item Value Reference Range Interpretation Comments Total Protein (test code = Total 5.7 6.4-8.4 L Protein) [facility] HospitalGmxpfowABNDHFLCX9502-61-08 07:55:00 Test Item Value Reference Range Interpretation Comments B/C Ratio (test code = B/C Ratio) 22 6-25 N [facility] HospitalHxrdqfgNRJPWSQQB7839-37-52 07:55:00 Test Item Value Reference Range Interpretation Comments A/G Ratio (test code = A/G Ratio) 1.0 0.7-1.6 N [facility] HospitalDndtrouJLAIKFUER5882-05-30 07:55:00 Test Item Value Reference Range Interpretation Comments Globulin (test code = Globulin) 2.8 2.0-4.0 N [facility] CenterMswbzcfLQELBXGEDX3735-64-91 07:55:00 Test Item Value Reference Range Interpretation Comments Monocytes (test code = Monocytes) 8.6 2.0-12.0 N [facility] CenterDwsoffqJAYZKJVWUF7343-12-25 07:55:00 Test Item Value Reference Range Interpretation Comments Lymphocytes (test code = Lymphocytes) 23.8 20.0-40.0 N [facility] CenterClutoibUNJQOEXUNF7683-68-26 07:55:00 Test Item Value Reference Range Interpretation Comments Eosinophils (test code = 0.6 See_Comment N [A utomated message] The Eosinophils) system which ge nerated this result tra nsmitted reference range : <=4.0. The reference r ana was not used to int erpret this result as normal/abnormal . [facility] CenterWyqkxyyYPOKMNYRHO7331-07-00 07:55:00 Test Item Value Reference Range Interpretation Comments Segs (test code = Segs) 66.4 45.0-75.0 N [facility] CenterVfkyqiiBIFBUXVEXE9910-35-19 07:55:00 Test Item Value Reference Range Interpretation Comments Monocytes # (test code 0.8 See_Comment N [Aut omated message] The = Monocytes #) system which generated this result tra nsmitted reference range : <=0.8. The reference r ana was not used to int erpret this result as normal/abnormal . [facility] CenterArpjvowAUYDMXWVTS1046-00-62 07:55:00 Test Item Value Reference Range Interpretation Comments Lymphocytes # (test code = Lymphocytes 2.1 1.0-5.5 N #) [facility] CenterUhcblchLEKIBNSVJJ3719-95-28 07:55:00 Test Item Value Reference Range Interpretation Comments Basophils (test code = 0.6 See_Comment N [Aut omated message] The Basophils) system which ge nerated this result tra nsmitted reference range : <=1.0. The reference r ana was not used to int erpret this result as normal/abnormal . [facility] CenterPigqevzGOFWASZXYT7945-60-79 07:55:00 Test Item Value Reference Range Interpretation Comments Segs-Bands # (test code = Segs-Bands #) 5.9 1.5-8.1 N [facility] CenterMxuflxaMCRSAWULFR5613-33-28 07:55:00 Test Item Value Reference Range Interpretation Comments Eosinophils # (test code 0.1 See_Comment N [A utomated message] The = Eosinophils #) system whic h generated this result tra nsmitted reference range : <=0.5. The reference r ana was not used to int erpret this result as normal/abnormal . [facility] CenterOelyuvqZFRLGSASBU4917-38-06 07:55:00 Test Item Value Reference Range Interpretation Comments Basophils # (test code 0.1 See_Comment N [Aut omated message] The = Basophils #) system which generated this result tra nsmitted reference range : <=0.2. The reference r ana was not used to int erpret this result as normal/abnormal . [facility] CenterDxcxmoiDBWMWZOMUN2827-59-86 07:55:00 Test Item Value Reference Range Interpretation Comments RDW (test code = RDW) 12.7 11.5-14.5 N [facility] CenterXvzsjndWKUVEPCJOR8047-87-30 07:55:00 Test Item Value Reference Range Interpretation Comments MCHC (test code = MCHC) 34.1 32.0-36.0 N [facility] CenterEvhigsyMSAJOSELZU1834-37-92 07:55:00 Test Item Value Reference Range Interpretation Comments MCV (test code = MCV) 95.7 81.0-99.0 N [facility] CenterScvutopKLLHDEEHBC6112-20-19 07:55:00 Test Item Value Reference Range Interpretation Comments Hgb (test code = Hgb) 11.5 12.0-16.0 L [facility] CenterPszgyjhRKKLQTKETJ4709-26-12 07:55:00 Test Item Value Reference Range Interpretation Comments Hct (test code = Hct) 33.6 36.0-48.0 L [facility] CenterJdsvstdADMOFHCDCF2011-67-98 07:55:00 Test Item Value Reference Range Interpretation Comments MCH (test code = MCH) 32.6 pg 27.0-31.0 H [facility] CenterMxlxtsiFDCUMWBCKU9608-76-83 07:55:00 Test Item Value Reference Range Interpretation Comments MPV (test code = MPV) 8.5 7.4-10.4 N [facility] CenterGrnefgjPGKQGMEXRR0841-38-41 07:55:00 Test Item Value Reference Range Interpretation Comments Platelet (test code = Platelet) 168 133-450 N [facility] CenterQthycxpGIFPNYBVFS8988-54-89 07:55:00 Test Item Value Reference Range Interpretation Comments RBC (test code = RBC) 3.52 4.20-5.40 L [facility] CenterNyrjskkZKWTSCKOBZ0343-49-64 07:55:00 Test Item Value Reference Range Interpretation Comments WBC (test code = WBC) 8.9 3.7-10.4 N [facility] HospitalIuefrztQGIJHCWIX8820-84-18 07:55:00 Test Item Value Reference Range Interpretation Comments Magnesium Lvl (test code = Magnesium 1.8 1.8-2.4 N Lvl) [facility] HospitalRfrqemuCZTRSLOZF5170-84-53 07:55:00 Test Item Value Reference Range Interpretation Comments Lipase Lvl (test code = Lipase Lvl) 119 73-393 N [facility] HospitalKwpjkcrVGSDVPLVU8430-72-54 07:55:00 Test Item Value Reference Range Interpretation Comments Alk Phos (test code = Alk Phos) 66 39-136 N [facility] HospitalIzpoxsjQNHKLCMKU3760-50-26 07:55:00 Test Item Value Reference Range Interpretation Comments ALT (test code = ALT) 18 <=65 N [facility] HospitalPnhhbcsWZSXHLPLD5851-85-88 07:55:00 Test Item Value Reference Range Interpretation Comments Albumin Lvl (test code = Albumin Lvl) 2.9 3.5-5.0 L [facility] HospitalIlfgnfoAYWBWUDWA7254-74-21 07:55:00 Test Item Value Reference Range Interpretation Comments AST (test code = AST) 24 <=37 N [facility] HospitalLexriccLXYBGPOYB2162-59-75 07:55:00 Test Item Value Reference Range Interpretation Comments Bili Total (test code = Bili Total) 0.7 0.2-1.3 N [facility] HospitalVxsefdoPVHWRKWCQ0328-07-48 07:55:00 Test Item Value Reference Range Interpretation Comments Total Protein (test code = Total 5.7 6.4-8.4 L Protein) [facility] HospitalLqdxzfuMTNHYBYHK7681-16-82 07:55:00 Test Item Value Reference Range Interpretation Comments B/C Ratio (test code = B/C Ratio) 22 6-25 N [facility] HospitalFntqombVGQVPUAYQ2159-01-25 07:55:00 Test Item Value Reference Range Interpretation Comments A/G Ratio (test code = A/G Ratio) 1.0 0.7-1.6 N [facility] HospitalPrzmkiqVTCTURRIU6544-10-85 07:55:00 Test Item Value Reference Range Interpretation Comments Globulin (test code = Globulin) 2.8 2.0-4.0 N [facility] CenterWimzjfuUZWBLLYOVS7154-70-72 07:55:00 Test Item Value Reference Range Interpretation Comments Monocytes (test code = Monocytes) 8.6 2.0-12.0 N [facility] CenterOeiuvamDVSPPWDPZD5980-04-63 07:55:00 Test Item Value Reference Range Interpretation Comments Lymphocytes (test code = Lymphocytes) 23.8 20.0-40.0 N [facility] CenterEfsdhmxYTISWMUKAP7496-09-35 07:55:00 Test Item Value Reference Range Interpretation Comments Eosinophils (test code = Eosinophils) 0.6 <=4.0 N [facility] CenterAhuybwkKSNQYCABAJ4526-86-27 07:55:00 Test Item Value Reference Range Interpretation Comments Segs (test code = Segs) 66.4 45.0-75.0 N [place] [address]-09-21 07:55:00 Test Item Value Reference Range Interpretation Comments Monocytes # (test code = Monocytes #) 0.8 <=0.8 N [facility] CenterNgqrljdOYBMGYSYAE0359-56-67 07:55:00 Test Item Value Reference Range Interpretation Comments Lymphocytes # (test code = Lymphocytes 2.1 1.0-5.5 N #) [facility] CenterLiodglbTZZBEQMMCU7406-92-32 07:55:00 Test Item Value Reference Range Interpretation Comments Basophils (test code = Basophils) 0.6 <=1.0 N [facility] CenterRjuvutwUGJCPFEWMY1144-54-50 07:55:00 Test Item Value Reference Range Interpretation Comments Segs-Bands # (test code = Segs-Bands #) 5.9 1.5-8.1 N [facility] CenterGqjoilfFCEOSFJMTI8128-33-15 07:55:00 Test Item Value Reference Range Interpretation Comments Eosinophils # (test code = Eosinophils 0.1 <=0.5 N #) [facility] CenterTheewbjFYHEVHOFAU4049-15-84 07:55:00 Test Item Value Reference Range Interpretation Comments Basophils # (test code = Basophils #) 0.1 <=0.2 N [facility] CenterMjazoneMQUAXNJBPQ8658-41-32 07:55:00 Test Item Value Reference Range Interpretation Comments RDW (test code = RDW) 12.7 11.5-14.5 N [facility] CenterOuerihoZHCPZAKZHY8540-05-18 07:55:00 Test Item Value Reference Range Interpretation Comments MCHC (test code = MCHC) 34.1 32.0-36.0 N [facility] CenterBiitqmyLUGRXTCEYH5154-96-15 07:55:00 Test Item Value Reference Range Interpretation Comments MCV (test code = MCV) 95.7 81.0-99.0 N [facility] CenterJkevltnONTKIQJSVR3701-69-68 07:55:00 Test Item Value Reference Range Interpretation Comments Hgb (test code = Hgb) 11.5 12.0-16.0 L [facility] CenterKevtnknEQWPPYONQH2892-71-20 07:55:00 Test Item Value Reference Range Interpretation Comments Hct (test code = Hct) 33.6 36.0-48.0 L [facility] CenterYnsrvnkAYABFJIMQT9217-79-48 07:55:00 Test Item Value Reference Range Interpretation Comments MCH (test code = MCH) 32.6 pg 27.0-31.0 H [facility] CenterCsbkeewARYPWVKUTG0229-18-13 07:55:00 Test Item Value Reference Range Interpretation Comments MPV (test code = MPV) 8.5 7.4-10.4 N [facility] CenterRqvbzjhGCYQAMDMNU8780-28-43 07:55:00 Test Item Value Reference Range Interpretation Comments Platelet (test code = Platelet) 168 133-450 N [facility] CenterZnnzxwbPOIZMKZVXE2642-78-38 07:55:00 Test Item Value Reference Range Interpretation Comments RBC (test code = RBC) 3.52 4.20-5.40 L [facility] CenterBviqptuDIVOILUHYH7206-97-92 07:55:00 Test Item Value Reference Range Interpretation Comments WBC (test code = WBC) 8.9 3.7-10.4 N [facility]ligvfmIQEXDUBOLO8185-81-82 04:30:05 Test Item Value Reference Range Interpretation Comments Micro? (test code = Performed (01/19/2013 N Micro?) 23:30:05) [facility]PucgwolRTZMQDSMXN2830-84-80 04:30:05 Test Item Value Reference Range Interpretation Comments UA WBC (test code = UA None Seen (01/19/2013 N WBC) 23:30:05) [facility]FtmfbruFMKVNPVWCL4757-75-71 04:30:05 Test Item Value Reference Range Interpretation Comments UA Sq Epi (test code = Few /LPF (01/19/2013 N UA Sq Epi) 23:30:05) [facility]EuioysvYPTXFJEUIW3447-81-55 04:30:05 Test Item Value Reference Range Interpretation Comments UA RBC (test None Seen See_Comment N [Automated mes valerie] code = UA RBC) (01/19/2013 [facility] 23:30:05) generated this result transmitted ref erence range: <=2. The reference range was not used to int erpret this result as normal/abnormal . [facility]NpzeoxkZZEMKYIPBF3047-73-93 04:30:05 Test Item Value Reference Range Interpretation Comments UA Blood (test code = Negative (01/19/2013 N UA Blood) 23:30:05) [facility]SmryxsjTNKSJUXKMA7262-80-62 04:30:05 Test Item Value Reference Range Interpretation Comments UA Urobilinogen (test code = UA 0.2 0.1-1.0 N Urobilinogen) [facility]LdovlivJHXNUSXZJC0873-63-08 04:30:05 Test Item Value Reference Range Interpretation Comments UA Bili (test code = Negative *NA*(01/19/2013 UA Bili) 23:30:05) [facility]GjbxpliFZWFAPLWTR2833-12-30 04:30:05 Test Item Value Reference Range Interpretation Comments UA Nitrite (test code Negative (01/19/2013 N = UA Nitrite) 23:30:05) [facility]UksqtasXRVEZDMNVS6439-23-07 04:30:05 Test Item Value Reference Range Interpretation Comments UA Leuk Est (test Negative (01/19/2013 N code = UA Leuk Est) 23:30:05) [facility]TahvcqbOCUMFQREAZ9769-73-62 04:30:05 Test Item Value Reference Range Interpretation Comments UA Glucose (test code Negative mg/dL N = UA Glucose) (01/19/2013 23:30:05) [facility]VamrlbaVOIRSXVKKW6063-86-41 04:30:05 Test Item Value Reference Range Interpretation Comments UA Ketones (test code Negative mg/dL = UA Ketones) *NA*(01/19/2013 23:30:05) [facility]OxsxogvCIGHSSVIHL5214-89-54 04:30:05 Test Item Value Reference Range Interpretation Comments UA pH (test code = UA pH) 8.0 1 5.0-8.0 N [facility]PjelngmPPZBVMKPAO4735-99-95 04:30:05 Test Item Value Reference Range Interpretation Comments UA Protein (test code Negative mg/dL N = UA Protein) (01/19/2013 23:30:05) [facility]ZnzujsrSXNQUERNBT7404-56-54 04:30:05 Test Item Value Reference Range Interpretation Comments UA Turbidity (test code = Clear (01/19/2013 N UA Turbidity) 23:30:05) [facility]PrijxewRJUIROAZYX3504-96-06 04:30:05 Test Item Value Reference Range Interpretation Comments UA Spec Grav (test code = UA Spec 1.015 1 N Grav) [facility]AqkydruIEGFMIPCMJ9333-87-88 04:30:05 Test Item Value Reference Range Interpretation Comments UA Color (test code = Yellow *NA*(01/19/2013 UA Color) 23:30:05) [facility]DzjtzqkPUEHKZDDXT8048-01-21 04:30:05 Test Item Value Reference Range Interpretation Comments Micro? (test code = Performed (01/19/2013 N Micro?) 23:30:05) [facility]JldcioaTDSHIYKNYG3220-81-33 04:30:05 Test Item Value Reference Range Interpretation Comments UA WBC (test code = UA None Seen (01/19/2013 N WBC) 23:30:05) [facility]WsckdkgOYUWMFEKRS5369-30-59 04:30:05 Test Item Value Reference Range Interpretation Comments UA Sq Epi (test code = Few /LPF (01/19/2013 N UA Sq Epi) 23:30:05) [facility] CenterUmgplbkKVRISZALDR3479-03-82 04:30:05 Test Item Value Reference Range Interpretation Comments UA RBC (test None Seen See_Comment N [Automated mes valerie] code = UA RBC) (01/19/2013 The system wh ich 23:30:05) generated this result transmitted ref erence range: <=2. The reference range was not used to int erpret this result as normal/abnormal . [facility] CenterWzwlemdUCPXQKCJVH9355-25-53 04:30:05 Test Item Value Reference Range Interpretation Comments UA Blood (test code = Negative (01/19/2013 N UA Blood) 23:30:05) [facility] CenterVibtygtZYEDVXFMYR4355-50-71 04:30:05 Test Item Value Reference Range Interpretation Comments UA Urobilinogen (test code = UA 0.2 0.1-1.0 N Urobilinogen) [facility] AreaUknzzexMNALLTHNET6386-70-79 04:30:05 Test Item Value Reference Range Interpretation Comments UA Bili (test code = Negative *NA*(01/19/2013 UA Bili) 23:30:05) [facility] CenterFxokeaqTSWTKASJTI0843-43-54 04:30:05 Test Item Value Reference Range Interpretation Comments UA Nitrite (test code Negative (01/19/2013 N = UA Nitrite) 23:30:05) [facility] AreaYtbqessMXJKKDGOCT1370-25-59 04:30:05 Test Item Value Reference Range Interpretation Comments UA Leuk Est (test Negative (01/19/2013 N code = UA Leuk Est) 23:30:05) [facility] AreaYqsblopMBCFLQINDN7336-48-98 04:30:05 Test Item Value Reference Range Interpretation Comments UA Glucose (test code Negative mg/dL N = UA Glucose) (01/19/2013 23:30:05) [facility]DspiiajZDCBVOIEIF1095-88-66 04:30:05 Test Item Value Reference Range Interpretation Comments UA Ketones (test code Negative mg/dL = UA Ketones) *NA*(01/19/2013 23:30:05) [facility]OqikjihGDILEUFUAW2198-42-47 04:30:05 Test Item Value Reference Range Interpretation Comments UA pH (test code = UA pH) 8.0 1 5.0-8.0 N [facility]HzdcejvNKFZURKVKK7447-17-85 04:30:05 Test Item Value Reference Range Interpretation Comments UA Protein (test code Negative mg/dL N = UA Protein) (01/19/2013 23:30:05) [facility]UatnsoaNUJTSKWFME0168-86-78 04:30:05 Test Item Value Reference Range Interpretation Comments UA Turbidity (test code = Clear (01/19/2013 N UA Turbidity) 23:30:05) [facility]OgzpfgaMDZAESTJXK4151-17-84 04:30:05 Test Item Value Reference Range Interpretation Comments UA Spec Grav (test code = UA Spec 1.015 1 N Grav) [facility]FvvmygzKPVQGYYSIS1497-98-20 04:30:05 Test Item Value Reference Range Interpretation Comments UA Color (test code = Yellow *NA*(01/19/2013 UA Color) 23:30:05) [facility]LjfxfnfKCGAGOSZRY0314-47-46 04:30:05 Test Item Value Reference Range Interpretation Comments Micro? (test code = Performed (01/19/2013 N Micro?) 23:30:05) [facility]LbcoxxwIPDNQJBFLW1098-89-03 04:30:05 Test Item Value Reference Range Interpretation Comments UA WBC (test code = UA None Seen (01/19/2013 N WBC) 23:30:05) [facility]NcvkpolAPYKHKEHIY2834-15-65 04:30:05 Test Item Value Reference Range Interpretation Comments UA Sq Epi (test code = Few /LPF (01/19/2013 N UA Sq Epi) 23:30:05) [facility] AreaTyzmyepYUANTAQACF8155-83-81 04:30:05 Test Item Value Reference Range Interpretation Comments UA RBC (test None Seen See_Comment N [Automated mes valerie] code = UA RBC) (01/19/2013 [facility] 23:30:05) generated this result transmitted ref erence range: <=2. The reference range was not used to int erpret this result as normal/abnormal . [facility]DmyiwfdCSXSOYTNNU6228-19-98 04:30:05 Test Item Value Reference Range Interpretation Comments UA Blood (test code = Negative (01/19/2013 N UA Blood) 23:30:05) [facility]OdzwwfdHOBZJGODQQ1835-04-13 04:30:05 Test Item Value Reference Range Interpretation Comments UA Urobilinogen (test code = UA 0.2 0.1-1.0 N Urobilinogen) [facility]HtbhviaSEXSJBHAWY1159-15-87 04:30:05 Test Item Value Reference Range Interpretation Comments UA Bili (test code = Negative *NA*(01/19/2013 UA Bili) 23:30:05) [facility]XeegapdGRNWODVASC4419-30-88 04:30:05 Test Item Value Reference Range Interpretation Comments UA Nitrite (test code Negative (01/19/2013 N = UA Nitrite) 23:30:05) [facility]FzgefpdGAOEIEUFZU7134-38-71 04:30:05 Test Item Value Reference Range Interpretation Comments UA Leuk Est (test Negative (01/19/2013 N code = UA Leuk Est) 23:30:05) [facility]JmfymnuJOEQTZUZXI4960-36-03 04:30:05 Test Item Value Reference Range Interpretation Comments UA Glucose (test code Negative mg/dL N = UA Glucose) (01/19/2013 23:30:05) [facility]YosjpheRALDRYWEFU5394-40-65 04:30:05 Test Item Value Reference Range Interpretation Comments UA Ketones (test code Negative mg/dL = UA Ketones) *NA*(01/19/2013 23:30:05) [facility]YgexpszGDNJYTLIAQ8016-08-56 04:30:05 Test Item Value Reference Range Interpretation Comments UA pH (test code = UA pH) 8.0 1 5.0-8.0 N [facility] AreaHqqawonOOGCVCJNOS3803-04-82 04:30:05 Test Item Value Reference Range Interpretation Comments UA Protein (test code Negative mg/dL N = UA Protein) (01/19/2013 23:30:05) [facility] AreaNekpsopRJKSLLUAFD9990-18-95 04:30:05 Test Item Value Reference Range Interpretation Comments UA Turbidity (test code = Clear (01/19/2013 N UA Turbidity) 23:30:05) [facility]mvstaeCVETAXHEDW6142-67-52 04:30:05 Test Item Value Reference Range Interpretation Comments UA Spec Grav (test code = UA Spec 1.015 1 N Grav) [facility]HxewcarTJABRXINDW3680-48-69 04:30:05 Test Item Value Reference Range Interpretation Comments UA Color (test code = Yellow *NA*(01/19/2013 UA Color) 23:30:05) [facility] CenterKpgnaniENCEDMWWSE8558-72-92 04:30:05 Test Item Value Reference Range Interpretation Comments Micro? (test code = Performed (01/19/2013 N Micro?) 23:30:05) [facility] CenterCsbiyorIGMZYRRIPA2333-79-13 04:30:05 Test Item Value Reference Range Interpretation Comments UA WBC (test code = UA None Seen (01/19/2013 N WBC) 23:30:05) [facility] CenterQqjbnuiYQVDWFQGDA2446-31-51 04:30:05 Test Item Value Reference Range Interpretation Comments UA Sq Epi (test code = Few /LPF (01/19/2013 N UA Sq Epi) 23:30:05) [facility] CenterXjaetzaMENCEDXYJQ1092-66-84 04:30:05 Test Item Value Reference Range Interpretation Comments UA RBC (test None Seen See_Comment N [Automated mes valerie] code = UA RBC) (01/19/2013 [facility] 23:30:05) generated this result transmitted ref erence range: <=2. The reference range was not used to int erpret this result as normal/abnormal . [facility] HospitalUfihedxXDYUKNPFXQ3411-34-47 04:30:05 Test Item Value Reference Range Interpretation Comments UA Blood (test code = Negative (01/19/2013 N UA Blood) 23:30:05) [facility] CenterPfdlhlaVLXPLEQKYF9115-09-96 04:30:05 Test Item Value Reference Range Interpretation Comments UA Urobilinogen (test code = UA 0.2 0.1-1.0 N Urobilinogen) [facility] CenterTfbfdiaTVCEQLKRKR0591-10-22 04:30:05 Test Item Value Reference Range Interpretation Comments UA Bili (test code = Negative *NA*(01/19/2013 UA Bili) 23:30:05) [facility]855[facility] 04:30:05 Test Item Value Reference Range Interpretation Comments UA Nitrite (test code Negative (01/19/2013 N = UA Nitrite) 23:30:05) [facility]DxkxcesVJIMPZVZZV5882-68-74 04:30:05 Test Item Value Reference Range Interpretation Comments UA Leuk Est (test Negative (01/19/2013 N code = UA Leuk Est) 23:30:05) [facility]ApkkpuhXXDXDLWKAF5857-60-08 04:30:05 Test Item Value Reference Range Interpretation Comments UA Glucose (test code Negative mg/dL N = UA Glucose) (01/19/2013 23:30:05) [facility]WwtuhllDERYWFZUJO0821-32-78 04:30:05 Test Item Value Reference Range Interpretation Comments UA Ketones (test code Negative mg/dL = UA Ketones) *NA*(01/19/2013 23:30:05) [facility]VxibvnyABHNOIDPNZ7915-61-79 04:30:05 Test Item Value Reference Range Interpretation Comments UA pH (test code = UA pH) 8.0 1 5.0-8.0 N [facility]GibwopsYIDGQFRTBH2014-47-96 04:30:05 Test Item Value Reference Range Interpretation Comments UA Protein (test code Negative mg/dL N = UA Protein) (01/19/2013 23:30:05) [facility]PekvdmqHNZGNMXEWY7939-55-46 04:30:05 Test Item Value Reference Range Interpretation Comments UA Turbidity (test code = Clear (01/19/2013 N UA Turbidity) 23:30:05) [facility]VjmnpxlJZUPWWZFXU8399-89-44 04:30:05 Test Item Value Reference Range Interpretation Comments UA Spec Grav (test code = UA Spec 1.015 1 N Grav) [facility]ZmsxateWRVXOWKBLN7515-50-03 04:30:05 Test Item Value Reference Range Interpretation Comments UA Color (test code = Yellow *NA*(01/19/2013 UA Color) 23:30:05) [facility]SunosocKMHFWPOJUD1426-13-73 04:30:05 Test Item Value Reference Range Interpretation Comments Micro? (test code = Performed (01/19/2013 N Micro?) 23:30:05) [facility]JywwdciQAAIZCSFYT6239-83-01 04:30:05 Test Item Value Reference Range Interpretation Comments UA WBC (test code = UA None Seen (01/19/2013 N WBC) 23:30:05) [facility]ZmwfbltOIQGHGZLQF2492-38-76 04:30:05 Test Item Value Reference Range Interpretation Comments UA Sq Epi (test code = Few /LPF (01/19/2013 N UA Sq Epi) 23:30:05) [facility]IwaqslbMNGHIRDWSA1233-48-80 04:30:05 Test Item Value Reference Range Interpretation Comments UA RBC (test code = UA None Seen (01/19/2013 <=2 N RBC) 23:30:05) [facility]JqcxuznRHZSCPYCRY4069-43-97 04:30:05 Test Item Value Reference Range Interpretation Comments UA Blood (test code = Negative (01/19/2013 N UA Blood) 23:30:05) [facility]TfmotzgOVFGRNHWHG8061-95-73 04:30:05 Test Item Value Reference Range Interpretation Comments UA Urobilinogen (test code = UA 0.2 0.1-1.0 N Urobilinogen) [facility]KboofaiNYQUUURROJ1044-77-03 04:30:05 Test Item Value Reference Range Interpretation Comments UA Bili (test code = Negative *NA*(01/19/2013 UA Bili) 23:30:05) [facility]NypagkxGMLEVWPUVI7412-33-24 04:30:05 Test Item Value Reference Range Interpretation Comments UA Nitrite (test code Negative (01/19/2013 N = UA Nitrite) 23:30:05) [facility]XbvhldoLKUEAXVLPC8242-03-15 04:30:05 Test Item Value Reference Range Interpretation Comments UA Leuk Est (test Negative (01/19/2013 N code = UA Leuk Est) 23:30:05) [facility]CulccidUXOPOMKDMZ2100-58-37 04:30:05 Test Item Value Reference Range Interpretation Comments UA Glucose (test code Negative mg/dL N = UA Glucose) (01/19/2013 23:30:05) [facility]VhevcstFGKXTGAPCQ4862-89-30 04:30:05 Test Item Value Reference Range Interpretation Comments UA Ketones (test code Negative mg/dL = UA Ketones) *NA*(01/19/2013 23:30:05) [facility]SjztmkxQMBNWDWCUM5445-05-07 04:30:05 Test Item Value Reference Range Interpretation Comments UA pH (test code = UA pH) 8.0 1 5.0-8.0 N [facility]HealthJzyinepTIXHBYQRSV9618-08-68 04:30:05 Test Item Value Reference Range Interpretation Comments UA Protein (test code Negative mg/dL N = UA Protein) (01/19/2013 23:30:05) [facility]XtxybiyVHBRAYQOFZ6621-88-21 04:30:05 Test Item Value Reference Range Interpretation Comments UA Turbidity (test code = Clear (01/19/2013 N UA Turbidity) 23:30:05) [facility]JzjegybNAOAIQQQCG1772-41-98 04:30:05 Test Item Value Reference Range Interpretation Comments UA Spec Grav (test code = UA Spec 1.015 1 N Grav) [facility]EurgcjmFMAMSYOEYX8598-36-80 04:30:05 Test Item Value Reference Range Interpretation Comments UA Color (test code = Yellow *NA*(01/19/2013 UA Color) 23:30:05) [facility]SfghqnlWLBUQHSSC7671-15-10 03:30:00 Test Item Value Reference Range Interpretation Comments Lipase Lvl (test code = Lipase Lvl) 345 73-393 N [facility] HospitalAdgsjlmBOLXNNQXL4653-05-15 03:30:00 Test Item Value Reference Range Interpretation Comments Total Protein (test code = Total 7.3 6.4-8.4 N Protein) [facility] HospitalGxgistkCXRTKDLII5885-70-29 03:30:00 Test Item Value Reference Range Interpretation Comments Bili Total (test code = Bili Total) 0.5 0.2-1.3 N [facility] HospitalBylmonpGPIBYCMLC9351-55-39 03:30:00 Test Item Value Reference Range Interpretation Comments Albumin Lvl (test code = Albumin Lvl) 3.8 3.5-5.0 N [facility] HospitalFwdacegLUEZLCWJH0802-67-42 03:30:00 Test Item Value Reference Range Interpretation Comments ALT (test code = ALT) 30 See_Comment N [Auto mated message] The system which ge nerated this result transmit nisa reference range : <=65. The reference range was not used to interpr et this result as donya l/abnormal. [facility] HospitalQuhyehlOCZMRQNVM6377-90-32 03:30:00 Test Item Value Reference Range Interpretation Comments Alk Phos (test code = Alk Phos) 81 39-136 N [facility] HospitalXvqdeonPYCMXKCOA3813-93-74 03:30:00 Test Item Value Reference Range Interpretation Comments Bili Direct (test code 0.1 See_Comment N [Aut omated message] The = Bili Direct) system which generated this result tra nsmitted reference range : <=0.3. The reference r ana was not used to int erpret this result as donya l/abnormal. [facility] HospitalLeujgksWAOGWXSAW3632-87-55 03:30:00 Test Item Value Reference Range Interpretation Comments AST (test code = AST) 23 See_Comment N [Auto mated message] The system which ge nerated this result transmit nisa reference range : <=37. The reference range was not used to interpr et this result as donya l/abnormal. [facility] HospitalTsiejstZDZDQECDU0429-12-18 03:30:00 Test Item Value Reference Range Interpretation Comments Globulin (test code = Globulin) 3.5 2.0-4.0 N [facility] HospitalOfsogogJUVFVSPDL6224-67-09 03:30:00 Test Item Value Reference Range Interpretation Comments A/G Ratio (test code = A/G Ratio) 1.1 0.7-1.6 N [facility] HospitalWvmdyxtRQRERKQHI4796-28-82 03:30:00 Test Item Value Reference Range Interpretation Comments Bili Indirect (test 0.4 See_Comment N [Automa nisa message] The code = Bili Indirect) system which generated this result tra nsmitted reference range : <=1.0. The reference r ana was not used to int erpret this result as normal/abnormal . [facility] HospitalKhcewhxWWXFTJPDAD8398-22-99 03:30:00 Test Item Value Reference Range Interpretation Comments Basophils # (test code 0.1 See_Comment N [Aut omated message] The = Basophils #) system which generated this result tra nsmitted reference range : <=0.2. The reference r ana was not used to int erpret this result as normal/abnormal . [facility] HospitalYtlxecoDTATAEJSH6737-80-60 03:30:00 Test Item Value Reference Range Interpretation Comments Lipase Lvl (test code = Lipase Lvl) 345 73-393 N [facility] HospitalRtomcpsQQHLYUNLG5336-00-95 03:30:00 Test Item Value Reference Range Interpretation Comments Total Protein (test code = Total 7.3 6.4-8.4 N Protein) [facility] HospitalLydzwxtYODKVWCAC4435-10-13 03:30:00 Test Item Value Reference Range Interpretation Comments Bili Total (test code = Bili Total) 0.5 0.2-1.3 N [facility] HospitalDfeajycTUQPELRMN9987-52-34 03:30:00 Test Item Value Reference Range Interpretation Comments Albumin Lvl (test code = Albumin Lvl) 3.8 3.5-5.0 N [facility] HospitalCqgrrtvHHZMZLPMT9018-04-07 03:30:00 Test Item Value Reference Range Interpretation Comments ALT (test code = ALT) 30 See_Comment N [Auto mated message] The system which ge nerated this result transmit nisa reference range : <=65. The reference range was not used to interpr et this result as donya l/abnormal. [facility] HospitalBgydxhmOGKKRASWS0621-33-64 03:30:00 Test Item Value Reference Range Interpretation Comments Alk Phos (test code = Alk Phos) 81 39-136 N [facility] HospitalTfvsqjpSVWZBOOZW1315-85-69 03:30:00 Test Item Value Reference Range Interpretation Comments Bili Direct (test code 0.1 See_Comment N [Aut omated message] The = Bili Direct) system which generated this result tra nsmitted reference range : <=0.3. The reference r ana was not used to int erpret this result as donya l/abnormal. [facility] HospitalBcaydhjOKMBEFLOW5065-91-39 03:30:00 Test Item Value Reference Range Interpretation Comments AST (test code = AST) 23 See_Comment N [Auto mated message] The system which ge nerated this result transmit nisa reference range : <=37. The reference range was not used to interpr et this result as donya l/abnormal. [facility] HospitalZihvozgYNHVAPNYS8797-97-03 03:30:00 Test Item Value Reference Range Interpretation Comments Globulin (test code = Globulin) 3.5 2.0-4.0 N [facility] HospitalTdyflkmPRQKMQFEE9484-83-57 03:30:00 Test Item Value Reference Range Interpretation Comments A/G Ratio (test code = A/G Ratio) 1.1 0.7-1.6 N [facility] HospitalIcvkwzjJQUQWLNXP3583-11-97 03:30:00 Test Item Value Reference Range Interpretation Comments Bili Indirect (test 0.4 See_Comment N [Automa nisa message] The code = Bili Indirect) system which generated this result tra nsmitted reference range : <=1.0. The reference r ana was not used to int erpret this result as normal/abnormal . [facility]NupfqkhJQCSXWLXMP4780-07-25 03:30:00 Test Item Value Reference Range Interpretation Comments Basophils # (test code 0.1 See_Comment N [Aut omated message] The = Basophils #) system which generated this result tra nsmitted reference range : <=0.2. The reference r ana was not used to int erpret this result as normal/abnormal . [facility] HospitalQwubponNLINVFXMY9682-51-09 03:30:00 Test Item Value Reference Range Interpretation Comments Lipase Lvl (test code = Lipase Lvl) 345 73-393 N [facility] HospitalPdfubugBCDMTAGCH3418-78-70 03:30:00 Test Item Value Reference Range Interpretation Comments Total Protein (test code = Total 7.3 6.4-8.4 N Protein) [facility] HospitalTdcpiquZLELVASYV3037-29-83 03:30:00 Test Item Value Reference Range Interpretation Comments Bili Total (test code = Bili Total) 0.5 0.2-1.3 N [facility] HospitalSynftxtNCIJTATCD1035-19-54 03:30:00 Test Item Value Reference Range Interpretation Comments Albumin Lvl (test code = Albumin Lvl) 3.8 3.5-5.0 N [facility] HospitalMumbsxdKAQXCKORD0984-85-34 03:30:00 Test Item Value Reference Range Interpretation Comments ALT (test code = ALT) 30 See_Comment N [Auto mated message] The system which ge nerated this result transmit nisa reference range : <=65. The reference range was not used to interpr et this result as donya l/abnormal. [facility] HospitalXiwszguTXVKLQNSX4571-85-57 03:30:00 Test Item Value Reference Range Interpretation Comments Alk Phos (test code = Alk Phos) 81 39-136 N [facility] HospitalAdrecwiMZGHABTPM3734-24-54 03:30:00 Test Item Value Reference Range Interpretation Comments Bili Direct (test code 0.1 See_Comment N [Aut omated message] The = Bili Direct) system which generated this result tra nsmitted reference range : <=0.3. The reference r ana was not used to int erpret this result as donya l/abnormal. [facility] HospitalDrxannmSXMRXBEXA3081-67-02 03:30:00 Test Item Value Reference Range Interpretation Comments AST (test code = AST) 23 See_Comment N [Auto mated message] The system which ge nerated this result transmit nisa reference range : <=37. The reference range was not used to interpr et this result as donya l/abnormal. [facility] HospitalApcpxdiEEAHLZXPO4492-74-13 03:30:00 Test Item Value Reference Range Interpretation Comments Globulin (test code = Globulin) 3.5 2.0-4.0 N [facility] HospitalDvyopsaKJEIOLNPG7735-73-06 03:30:00 Test Item Value Reference Range Interpretation Comments A/G Ratio (test code = A/G Ratio) 1.1 0.7-1.6 N [facility] HospitalRteqvdiKNRJJSGUB1711-52-01 03:30:00 Test Item Value Reference Range Interpretation Comments Bili Indirect (test 0.4 See_Comment N [Automa nisa message] The code = Bili Indirect) system which generated this result tra nsmitted reference range : <=1.0. The reference r ana was not used to int erpret this result as normal/abnormal . [facility] CenterWbgyutmGZILAUXURA4997-40-52 03:30:00 Test Item Value Reference Range Interpretation Comments Basophils # (test code 0.1 See_Comment N [Aut omated message] The = Basophils #) system which generated this result tra nsmitted reference range : <=0.2. The reference r ana was not used to int erpret this result as normal/abnormal . [facility] HospitalVblvccaMCFLXNVIB9698-84-45 03:30:00 Test Item Value Reference Range Interpretation Comments Lipase Lvl (test code = Lipase Lvl) 345 73-393 N [facility] HospitalMkksiqpHQOEIFZBL0229-65-23 03:30:00 Test Item Value Reference Range Interpretation Comments Total Protein (test code = Total 7.3 6.4-8.4 N Protein) [facility] HospitalMhxlgstLTGWVRUVI8362-27-58 03:30:00 Test Item Value Reference Range Interpretation Comments Bili Total (test code = Bili Total) 0.5 0.2-1.3 N [facility] HospitalFvlwizlJIBBUNZDK7878-93-94 03:30:00 Test Item Value Reference Range Interpretation Comments Albumin Lvl (test code = Albumin Lvl) 3.8 3.5-5.0 N [facility] HospitalIvyfcbhQFOTNCAGX0046-95-88 03:30:00 Test Item Value Reference Range Interpretation Comments ALT (test code = ALT) 30 See_Comment N [Auto mated message] The system which ge nerated this result transmit nisa reference range : <=65. The reference range was not used to interpr et this result as donya l/abnormal. [facility] HospitalAdgkrchGFQTOQTQM8481-99-26 03:30:00 Test Item Value Reference Range Interpretation Comments Alk Phos (test code = Alk Phos) 81 39-136 N [facility] HospitalQlmytdwOAFYDTOJW2466-45-52 03:30:00 Test Item Value Reference Range Interpretation Comments Bili Direct (test code 0.1 See_Comment N [Aut omated message] The = Bili Direct) system which generated this result tra nsmitted reference range : <=0.3. The reference r ana was not used to int erpret this result as donya l/abnormal. [facility] HospitalIghaqgbAHRJMYPHT3584-24-05 03:30:00 Test Item Value Reference Range Interpretation Comments AST (test code = AST) 23 See_Comment N [Auto mated message] The system which ge nerated this result transmit nisa reference range : <=37. The reference range was not used to interpr et this result as donya l/abnormal. [facility] HospitalKeamnmwEQZRBISKP7628-75-23 03:30:00 Test Item Value Reference Range Interpretation Comments Globulin (test code = Globulin) 3.5 2.0-4.0 N [facility] HospitalKbaevqcGGJEQOBFP7643-86-05 03:30:00 Test Item Value Reference Range Interpretation Comments A/G Ratio (test code = A/G Ratio) 1.1 0.7-1.6 N [facility] HospitalJxcclyhFCOUEHLBV0570-44-09 03:30:00 Test Item Value Reference Range Interpretation Comments Bili Indirect (test 0.4 See_Comment N [Automa nisa message] The code = Bili Indirect) system which generated this result tra nsmitted reference range : <=1.0. The reference r ana was not used to int erpret this result as normal/abnormal . [facility] CenterRkkpagwYQNVPLKNBP4534-64-68 03:30:00 Test Item Value Reference Range Interpretation Comments Basophils # (test code 0.1 See_Comment N [Aut omated message] The = Basophils #) system which generated this result tra nsmitted reference range : <=0.2. The reference r ana was not used to int erpret this result as normal/abnormal . [facility] HospitalDpfnoxbYXGQGUYTW3875-27-51 03:30:00 Test Item Value Reference Range Interpretation Comments Lipase Lvl (test code = Lipase Lvl) 345 73-393 N [facility] HospitalHjzxrsgVKRBBKUOV7975-76-33 03:30:00 Test Item Value Reference Range Interpretation Comments Total Protein (test code = Total 7.3 6.4-8.4 N Protein) [facility] HospitalFrvonxcVJUQJGANX9099-94-26 03:30:00 Test Item Value Reference Range Interpretation Comments Bili Total (test code = Bili Total) 0.5 0.2-1.3 N [facility] HospitalFcnjbwiGHZKAZQCE6435-93-78 03:30:00 Test Item Value Reference Range Interpretation Comments Albumin Lvl (test code = Albumin Lvl) 3.8 3.5-5.0 N [facility] HospitalGugvujsQOCBDIQHG2951-55-69 03:30:00 Test Item Value Reference Range Interpretation Comments ALT (test code = ALT) 30 <=65 N [facility] HospitalYoogbgnRRDLWEVTH4698-96-46 03:30:00 Test Item Value Reference Range Interpretation Comments Alk Phos (test code = Alk Phos) 81 39-136 N [facility] HospitalVdybepjRPARSFCQF7636-32-90 03:30:00 Test Item Value Reference Range Interpretation Comments Bili Direct (test code = Bili Direct) 0.1 <=0.3 N [facility] HospitalVmlwaptGQILXZNDX5407-58-08 03:30:00 Test Item Value Reference Range Interpretation Comments AST (test code = AST) 23 <=37 N [facility] HospitalArsrcyaYYYPYWLMC9745-93-50 03:30:00 Test Item Value Reference Range Interpretation Comments Globulin (test code = Globulin) 3.5 2.0-4.0 N [facility] HospitalScclvnqHYSKWTFQG5571-51-21 03:30:00 Test Item Value Reference Range Interpretation Comments A/G Ratio (test code = A/G Ratio) 1.1 0.7-1.6 N [facility] HospitalFxstjyyFRUVGLSHB5461-60-22 03:30:00 Test Item Value Reference Range Interpretation Comments Bili Indirect (test code = Bili 0.4 <=1.0 N Indirect) [facility] CenterAglahwrAFIVBZQKHI3714-81-99 03:30:00 Test Item Value Reference Range Interpretation Comments Basophils # (test code = Basophils #) 0.1 <=0.2 [facility]
[2023-02-05] MEDS ORDERED: KETOROLAC 30 MG/ML INJ ONE (20:17)
[2023-02-05] MEDS ORDERED: dexAMETHasone 10 MG/ML VIAL ONE (20:17)
[2023-02-05] MEDS ORDERED: DIPHENHYDRAMINE 50 MG/ML VIAL ONE (20:17)
[2023-02-05] MEDS ORDERED: NA CHLORIDE 0.9% 1,000 ML ONE (20:18)
[2023-02-05] MEDS ORDERED: ONDANSETRON 4 MG/2 ML VIAL ONE (20:28)
--- NOTE | 2023-02-05 20:40 | RAD REPORT ---
EXAM DESCRIPTION: CT - Head Brain Wo Cont - 02/05/2023 8:27 pm CLINICAL HISTORY: Headache COMPARISON: 2019 TECHNIQUE: Computed axial tomography of the head was obtained. IV contrast was not requested. All CT scans are performed using dose optimization technique as appropriate and may include automated exposure control or mA/KV adjustment according to patient size. FINDINGS: An intracranial bleed is not seen The ventricles are normal in caliber No extra-axial fluid collection is noted. Mild low-density areas within periventricular, deep and subcortical white matter likely represent is chemic changes secondary to small vessel disease. Fluid within the sinuses/ mastoids is not seen. IMPRESSION: No acute intracranial abnormality is seen If patient's symptoms persist MRI of the brain would be recommended
[2023-02-05] MEDS ORDERED: FENTANYL CITR 100 MCG/2 ML ONE (21:57)
[2023-02-05] MEDS ORDERED: PROMETHAZINE INJ 25 MG/ML AMP ONE (21:58)
[2023-02-05] MEDS ORDERED: MAGNESIUM SULFATE 1 gm IVPB 1 GM/100 ML BAG IV ONE (21:58)
--- NOTE | 2023-02-05 22:42 | ER ---
Nurse's Notes [facility] Name: Haley Porter Age: 67 yrs Sex: Female : 1955 Arrival Date: 02/05/2023 Time: 19:37 Bed 14 Private MD: Diagnosis: Headache Presentation: 02/05 19:47 Chief complaint: Patient states: migraine Headache and tremors, yesterday Dr. Palacios put iw me on Qulipta and I took one this morning at 8 , severe headache since noon. Coronavirus screen: At this time, the client does not indicate any symptoms associated with coronavirus-19. Ebola Screen: Patient negative for fever greater than or equal to 101.5 degrees Fahrenheit, and additional compatible Ebola Virus Disease symptoms Patient denies exposure to infectious person. Patient denies travel to an Ebola-affected area in the 21 days before illness onset. No symptoms or risks identified at this time. Initial Sepsis Screen: Does the patient meet any 2 criteria? No. Patient's initial sepsis screen is negative. Does the patient have a suspected source of infection? No. Patient's initial sepsis screen is negative. Risk Assessment: Do you want to hurt yourself or someone else? Patient reports no desire to harm self or others. Onset of symptoms was February 05, 2023. 19:47 Method Of Arrival: Wheelchair 19:47 Acuity: RADHA 3 iw Triage Assessment: 20:14 Neuro: No deficits noted. ap3 20:14 Pain: Pain began noon today. ap3 20:14 Pain: Pain currently is 10 out of 10 on a pain scale. ap3 20:16 Headache History: The patient has had previous headaches and this one is similar to mb9 previous episodes. General: Appears uncomfortable, Behavior is cooperative. Pain: Also complains of photophobia. Neuro: Richardson Agitation-Sedation Scale (RASS): 0 - Alert and Calm Level of Consciousness is awake, alert, obeys commands, Oriented to person, place, time, situation, Appropriate for age Reports headache. Cardiovascular: Heart tones S1 S2 present Patient's skin is warm and dry. Respiratory: Airway is patent Respiratory effort is even, unlabored, Respiratory pattern is regular, symmetrical. GI: Abdomen is flat, non-distended, Bowel sounds present X 4 quads. : No signs and/or symptoms were reported regarding the genitourinary system. Derm: Skin is pink, warm \T\ dry. Musculoskeletal: Range of motion: intact in all extremities. Historical: - Allergies: 19:49 Metoclopramide; iw 19:49 Morphine; iw 19:49 Oral steroids; iw 19:49 Singulair; iw 19:49 Valium; iw 19:49 Versed; iw - PMHx: 19:49 Hypertension; PE; Migraine; iw - PSHx: 19:49 back sx; iw - Immunization history:: Client reports receiving the 2nd dose of the Covid vaccine. - Social history:: Smoking status: Patient denies any tobacco usage or history of. Screenin:13 Abuse screen: Denies threats or abuse. Nutritional screening: No deficits noted. ap3 Tuberculosis screening: No symptoms or risk factors identified. 20:15 [facility] ED Fall Risk Assessment (Adult) History of falling in the last 3 months, mb9 including since admission No falls in past 3 months (0 pts) Confusion or Disorientation No (0 pts) Intoxicated or Sedated No (0 pts) Impaired Gait No (0 pts) Mobility Assist Device Used No (0 pt) Altered Elimination No (0 pt) Score/Fall Risk Level 0 - 2 = Low Risk Oriented to surroundings, Maintained a safe environment, Educated pt \T\ family on fall prevention, incl call for assistance when getting out of bed. Assessment: 20:23 Reassessment: see triage assessment. mb9 22:20 Reassessment: pt resting with eyes closed , respirations even and unlabored, awakens iw easily to verbal stimuli. 23:09 Reassessment: Patient appears in no apparent distress at this time. Patient states iw feeling better. Patient states symptoms have improved. Vital Signs: 19:49 BP 138 / 92; Pulse 65; Resp 16; Temp 98.2; Pulse Ox 97% on R/A; Weight 79.83 kg; Pain iw 10/10; 22:04 BP 143 / 66; Pulse 62; Resp 14; Pulse Ox 100% on 2 lpm NC; iw 23:09 BP 126 / 68; Pulse 61; Resp 16; Pulse Ox 100% on R/A; Pain 0/10; iw 19:49 Pain Scale: Adult iw 23:09 Pain Scale: Adult iw Arvind Coma Score: 02/06 01:14 Eye Response: spontaneous(4). Motor Response: obeys commands(6). Verbal Response: sb4 oriented(5). Total: 15. ED Course: 02/05 19:45 Patient arrived in ED. iw 19:49 Triage completed. iw 19:49 Arm band placed on. iw 19:51 [facility]cido [facility] sb4 19:51 Jatin Greenberg MD is Attending Physician. sb4 20:08 Lakia Frank RN is Primary Nurse. mb9 20:13 Patient has correct armband on for positive identification. Bed in low position. Call ap3 light in reach. Side rails up X2. Adult w/ patient. Pulse ox on. NIBP on. 20:13 Inserted saline lock: 22 gauge in right wrist, using aseptic technique. ap3 20:16 No provider procedures requiring assistance completed. mb9 20:29 Head Brain Wo Cont CT In Process Unspecified. EDMS 22:00 Provided Education on: pain medications . iw 22:41 Felice Palacios MD is Referral Physician. sb4 23:09 IV discontinued, intact, bleeding controlled, No redness/swelling at site. Pressure iw dressing applied. Administered Medications: 20:09 Not Given (Other Intervention Used): [id number] mg IVP once sb4 20:12 Drug: Decadron - Dexamethasone IVP 10 mg IVP once Route: IVP; Site: right wrist; ap3 23:12 Follow up: Response: No adverse reaction iw 20:12 Not Given (Patient Refused): [id number] mg IVP once ap3 20:13 Drug: NS 0.9% IV 1000 ml IV at 1 bolus Per protocol; 1000 mL bolus Route: IV; Rate: 1 ap3 bolus; Site: right wrist; 21:10 Follow up: IV Status: Completed infusion iw 20:13 Drug: Ketorolac IVP 15 mg IVP once Route: IVP; Site: right wrist; ap3 23:12 Follow up: Response: No adverse reaction iw 20:16 Drug: Ondansetron IVP 4 mg IVP once; over 2 minutes Route: IVP; Site: right wrist; mb9 23:12 Follow up: Response: No adverse reaction iw 21:55 Drug: fentaNYL (PF) IVP 50 mcg IVP once Route: IVP; Site: right wrist; iw 23:05 Follow up: Response: No adverse reaction; Pain is decreased iw 21:58 Drug: Promethazine IVP 25 mg IVP once Route: IVP; Site: right wrist; iw 23:05 Follow up: Response: No adverse reaction; Pain is decreased iw 22:03 Drug: Magnesium Sulfate IVPB 1 grams IVPB once over 1 hrs Route: IVPB; Infused Over: 1 iw hrs; Site: right wrist; 23:11 Follow up: IV Status: Completed infusion iw Medication: 20:16 VIS not applicable for this client. mb9 Outcome: 22:42 Discharge ordered by MD. guy 23:11 Discharged to home via wheelchair, with family, iw 23:11 Condition: good 23:11 Discharge instructions given to patient, family, Instructed on discharge instructions, follow up and referral plans. 23:12 Patient left the ED. iw Signatures: Dispatcher [employer] Mya Almeida RN RN iw Mila Montgomery RN RN ap3 Brown, Sophia, PAMariaelenaC PA-C Lakia Miranda RN RN mb9
--- NOTE | 2023-02-05 22:42 | EDPHYS ---
Physician Documentation [facility] Name: Haley Porter Age: 67 yrs Sex: Female : 1955 Arrival Date: 02/05/2023 Time: 19:37 Bed 14 Private MD: ED Physician Jatin Greenberg HPI: 02/06 01:14 This 67 yrs old Female presents to ER via Wheelchair with complaints of Headache. sb4 01:14 The patient complains of pain to the top of head and forehead. The patient describes sb4 the headache as crushing. Onset: The symptoms/episode began/occurred this morning. Associated signs and symptoms: Pertinent positives: Photophobia Pertinent negatives: altered mental status, dizziness, nausea, neck stiffness. Severity of symptoms: At its worst the pain was "never this severe", in the emergency department the pain is unchanged. Headache History: The patient has had previous headaches and this one is more severe than previous episodes. The symptoms are alleviated by nothing. the symptoms are aggravated by lights, noise. The patient has experienced similar episodes in the past, multiple times, but today's symptoms are worse. The patient has been recently seen by a physician: a neurologist. Historical: - Allergies: 02/05 19:49 Metoclopramide; iw 19:49 Morphine; iw 19:49 Oral steroids; iw 19:49 Singulair; iw 19:49 Valium; iw 19:49 Versed; iw - PMHx: 19:49 Hypertension; PE; Migraine; iw - PSHx: 19:49 back sx; iw - Immunization history:: Client reports receiving the 2nd dose of the Covid vaccine. - Social history:: Smoking status: Patient denies any tobacco usage or history of. ROS: 02/06 01:14 Constitutional: Negative for fever, chills, and weight loss, sb4 Neuro: Positive for headache, All other systems are negative, Exam: 01:14 Head/Face: Normocephalic, atraumatic. Eyes: Extra-ocular motions intact. Periorbital sb4 areas with no swelling, redness, or edema. ENT: Mucous membranes moist. Cardiovascular: Regular rate and rhythm with a normal S1 and S2. Respiratory: Lungs have equal breath sounds bilaterally, clear to auscultation and percussion. No rales, rhonchi or wheezes noted. No increased work of breathing, no retractions or nasal flaring. Abdomen/GI: Soft, non-tender, no distension. Skin: Warm, dry with normal turgor. Normal color with no rashes, no lesions, and no evidence of cellulitis. MS/ Extremity: Pulses equal, no cyanosis. Neurovascular intact. Full, normal range of motion. Neuro: Awake and alert, GCS 15, oriented to person, place, time, and situation. Motor strength 5/5 in all extremities. Sensory grossly intact. 01:14 Constitutional: The patient appears alert, awake, in obvious pain, Vital Signs: 02/05 19:49 BP 138 / 92; Pulse 65; Resp 16; Temp 98.2; Pulse Ox 97% on R/A; Weight 79.83 kg; Pain iw 10; 22:04 BP 143 / 66; Pulse 62; Resp 14; Pulse Ox 100% on 2 lpm NC; iw 23:09 BP 126 / 68; Pulse 61; Resp 16; Pulse Ox 100% on R/A; Pain 0/10; iw 19:49 Pain Scale: Adult iw 23:09 Pain Scale: Adult iw Arvind Coma Score: 02/06 01:14 Eye Response: spontaneous(4). Motor Response: obeys commands(6). Verbal Response: sb4 oriented(5). Total: 15. MDM: 02/05 19:51 Patient medically screened. sb4 02/06 01:14 Differential diagnosis: cluster headache, cerebral vascular accident, hypertensive sb4 headache, intracerebral hemorrhage, migraine, subarachnoid bleed, temporal arteritis, tension headache, vasomotor headache. Data reviewed: vital signs, nurses notes, radiologic studies, and as a result, I will discharge patient. Consideration of Admission/Observation Escalation of care including admission/observation considered. Test considered but Not performed: Labs: not indicated, flare up of chronic condition. Care significantly affected by the following chronic conditions: Hypertension. Counseling: I had a detailed discussion with the patient and/or guardian regarding the historical points, exam findings, and any diagnostic results supporting the discharge/admit diagnosis, the presence of at least one elevated blood pressure reading (>120/80) during this emergency department visit, radiology results, to return to the emergency department if symptoms worsen or persist or if there are any questions or concerns that arise at home. 02/05 19:58 Order name: Head Brain Wo Cont CT; Complete Time: 20:44 sb4 02/05 19:58 Order name: IV Start; Complete Time: 20:01 sb4 Administered Medications: 02/05 20:09 Not Given (Other Intervention Used): [id number] mg IVP once sb4 20:12 Drug: Decadron - Dexamethasone IVP 10 mg IVP once Route: IVP; Site: right wrist; ap3 23:12 Follow up: Response: No adverse reaction iw 20:12 Not Given (Patient Refused): [id number] mg IVP once ap3 20:13 Drug: NS 0.9% IV 1000 ml IV at 1 bolus Per protocol; 1000 mL bolus Route: IV; Rate: 1 ap3 bolus; Site: right wrist; 21:10 Follow up: IV Status: Completed infusion iw 20:13 Drug: Ketorolac IVP 15 mg IVP once Route: IVP; Site: right wrist; ap3 23:12 Follow up: Response: No adverse reaction iw 20:16 Drug: Ondansetron IVP 4 mg IVP once; over 2 minutes Route: IVP; Site: right wrist; mb9 23:12 Follow up: Response: No adverse reaction iw 21:55 Drug: fentaNYL (PF) IVP 50 mcg IVP once Route: IVP; Site: right wrist; iw 23:05 Follow up: Response: No adverse reaction; Pain is decreased iw 21:58 Drug: Promethazine IVP 25 mg IVP once Route: IVP; Site: right wrist; iw 23:05 Follow up: Response: No adverse reaction; Pain is decreased iw 22:03 Drug: Magnesium Sulfate IVPB 1 grams IVPB once over 1 hrs Route: IVPB; Infused Over: 1 iw hrs; Site: right wrist; 23:11 Follow up: IV Status: Completed infusion iw Disposition Summary: 02/05/23 22:42 Discharge Ordered Notes: Location: Home sb4 Problem: an acute exacerbation sb4 Symptoms: have improved sb4 Condition: Stable sb4 Diagnosis - Headache sb4 Followup: sb4 - With: Felice Palacios MD - When: As needed - Reason: Recheck today's complaints, Re-evaluation by your physician Discharge Instructions: - Discharge Summary Sheet sb4 - Migraine Headache sb4 Forms: - Medication Reconciliation Form sb4 - Thank You Letter sb4 - Antibiotic Education sb4 - Prescription Opioid Use sb4 - Patient Portal Instructions sb4 - Leadership Thank You Letter sb4 Addendum: 02/07/2023 06:59 Co-signature as Attending Physician, Jatin Greenberg MD I reviewed the patient's care r n provided by the Advanced Practice Provider and agree with the diagnosis and treatment plan. Signatures: Dispatcher [employer] Mya Almeida, Jatin Stiles RN, MD MD rn Prokisch, Amanda, RN RN ap3 Brown, Sophia, PA-C PA-C sb4 Lakia Frank RN RN mb9
[2023-02-06 00:18] VITALS: TEMP 98.2
[2023-02-06 00:22] VITALS: O2SAT 100
[2023-02-06 00:23] VITALS: BP 126/68
== END 2023-02-05 23:12 | disposition home or self-care (01) ==
LOC: ER 19:37
DX: R51.9 Headache, unspecified (principal); I10 Essential (primary) hypertension; Z88.5 Allergy status to narcotic agent; Z88.8 Allergy status to other drugs, medicaments and biological substances; Z86.711 Personal history of pulmonary embolism
CPT/HCPCS: 96365; 96361; 70450; 96375; 99284; J2550; J3475; J1200; J3010; J1100; J2405; J7030

== ENCOUNTER 2023-02-21 13:18 | Emergency (ER) | payer OTHER ==
--- OUTSIDE RECORDS SUMMARY | 2023-02-21 13:27 | XMS REPORT | Continuity of Care Document ---
:1955 Author Organization [facility] t Address [address] [facility] [address] [place] [address] Care Team Providers Name Role Phone Rob Alonzo MD Primary Care Physician Felice Palacios Attending Clinician Naren Marie MD Attending Clinician Jana Nam MA Attending Clinician Unavailable IBIS TORRES Attending Clinician Unavailable RAUDEL ROGER Attending Clinician Unavailable MD RAUDEL ROGER Attending Clinician Unavailable RAFFI FLORIAN Attending Clinician Unavailable Yung Busch Attending Clinician GILA ROMAN Attending Clinician Unavailable Gila Stiles Attending Clinician [facility] Attending Clinician Unavailable Bryan Melton Jr Attending Clinician RAUDEL ROGER Admitting Clinician Unavailable MD RAUDEL ROGER Admitting Clinician Unavailable Mihir Hannah Admitting Clinician RAFFI FLORIAN Admitting Clinician Unavailable GILA ROMAN Admitting Clinician Unavailable Payers Payer Name Policy Type Policy Number Effective Date Expiration Date S ource MEDICARE PART A [id number] 2018 \\T\\ B 00:00:00 [facility] [id number] 2018 BENEFIT PLAN 00:00:00 Problems Condition Condition Condition Status Onset Resolution Last Treating Co mments Source Name Details Category Date Date Treatment Clinician Date Depression Depression Disease Active M ethodi [address] [facility] 00:00: Hospita 00 l Oropharyng Oropharyng [...] 00:00: Dwight sanon LEG LEG Active 00 0 [facility] Follow-up Follow-up Disease Active Met hodi examinatio [...] Hospita 00 l Claudicati Claudicati Disease Active 2020-0 M ethodi on on [address] 00:00: Hospita 00 l Bilateral Bilateral [...] Essential Disease Active Met [facility] hypertensi hypertensi 07-26 st on on 00:00: Hospita 00 l Splenic Splenic Disease Active Methodi artery artery 07-26 st aneurysm aneurysm 00:00: Hospit a 00 l Anxiety Anxiety Disease Active Methodi [facility] 00:00: Hospita 00 l ABDOMINAL ABDOMINAL Diagnosis Active 2017-05-06 Memoria PAIN/LOSS PAIN/LOSS 05-06 18:11:00 l OF OF 00:00: Agus APPETITE APPETITE 00 Active 05/06/2017 [facility] Agus POST POST Diagnosis Active 2013-03-05 Mem oria FOLLOW UP FOLLOW UP 01-19 15:20:00 l Active 00:00: Agus 01/19/2013 00 [facility] SURGERY SURGERY Diagnosis Active 2013-01-20 Memoria THIS THIS 01-19 08:28:00 l MORNING, MORNING, 00:00: Dwight sanon PROBLEMS PROBLEMS 00 BREATHING BREATHING Active 01/19/2013 [facility] BDDC-WEIGH BDDC-WEIG Diagnosis Active 2013-01-19 Memoria T LOSS HT LOSS 01-17 08:37:00 l Active 00:00: Agus 01/17/2013 00 [facility] 783.21 - 783.21 - Diagnosis Active 2013-12-25 Memoria ABNORMAL ABNORMAL 01-16 02:47:00 l LOSS O LOSS O 00:01: Agus 576.0 - 576.0 - 00 POSTCHO POSTCHO Active 01/16/2013 FARHANAD [place] ABD PAIN ABD PAIN Diagnosis Active 2013-01-16 Memoria Active 01-11 13:45:00 l 01/11/2013 00:00: Dwight sanon [address] Gastroesop Gastroeso Problem Resolve 2021-12-11 Memoria hageal phageal d 23:17:34 l reflux reflux Agus disease disease (disorder) (disorder) Resolved Problem 12/11/2021 [facility] Lumbosacra Lumbosacr Problem Resolve 2021-12-11 Memoria l plexus al plexus d 23:17:34 l neuropathy neuropathy He rmann (disorder) (disorder) Resolved Problem 12/11/2021 [facility] Acid Acid Problem Resolve 2013-01-25 Abdiel leigh ann reflux reflux d 21:01:15 l Resolved Agus Problem 01/25/2013 [facility] HTN - HTN - Problem Resolve 2013-01-25 Abdiel leigh ann Hypertensi Hypertensi d 21:01:15 l on on Conrad Resolved Problem 01/25/2013 [facility] Pituitary Pituitary Problem Active 2021-12-11 Memoria adenoma adenoma 23:17:34 l (disorder) (disorder) He rmann Active Problem 12/11/2021 Data migrated from [facility] on 12/25/14. 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 13:33:10 l s s Conrad (disorder) (disorder) Active Problem 02/12/2023 [facility] Essential Essential Problem Active 2023-02-12 Memoria tremor tremor 13:33:10 l (disorder) (disorder) He rmann Active Problem 02/12/2023 [facility] Headache Headache Problem Active 2023-02-12 Memoria (finding) (finding) 13:33:10 l Active Agus Problem 02/12/2023 [facility] Hypertensi Hypertens Problem Active 2023-02-12 Memoria ve jhon 13:33:10 l disorder, disorder, Herm emmett systemic systemic arterial arterial (disorder) (disorder) Active Problem 02/12/2023 [facility] Menopausal Menopausa Problem Active 2023-02-12 Memoria syndrome l syndrome 13:33:10 l (disorder) (disorder) He rmann Active Problem 02/12/2023 [facility] Meralgia Meralgia Problem Active 2023-02-12 Memoria parestheti parestheti 13:33:10 l ca ca Conrad (disorder) (disorder) Active Problem 02/12/2023 [facility] Migraine Migraine Problem Active 2023-02-12 Memoria (disorder) (disorder) 13:33:10 l Active Conrad Problem 02/12/2023 [facility] Tremor Tremor Problem Active 2023-02-12 Mem oria (finding) (finding) 13:33:10 l Active Conrad Problem 02/12/2023 [facility] Neu[facility] Ulcer of Ulcer of Problem Active 2023-02-12 Memoria lower lower 13:33:10 l extremity extremity Herm emmett (disorder) (disorder) Active Problem 02/12/2023 [facility] ABDMNAL ABDMNAL Diagnosis Active 2013-01-20 Memoria PAIN PAIN 08:28:00 l UNSPCF UNSPCF Conrad SITE SITE Active [facility] History of Past Illness Condition Condition Condition Status Onset Resolution Last Treating Co mments Source Name Details Category Date Date Treatment Clinician Date Unspecifie Unspecifi Problem 2017-05-09 2017-05-09 Memoria d ed 1-04 05:06:50 05:06:50 l abdominal abdominal 06:00: Herm emmett pain pain 00 05/06/2017 05/09/2017 [place] Allergies, Adverse Reactions, Alerts Allergy Allergy Status Severity Reaction(s) Onset Inactive Treating Comm ents Source Name Type Date Date Clinician Melody Jiangi Active Unknown Metho di ast ty to Reaction 06-10 st adverse 00:00: Hospita reaction 00 l [...] Univ ers INGREDI 01-15 ity of 00:00: [place] [id number] [address] MIDAZOLA DRUG Active Other-Cmnt Univ ers M INGREDI 01-15 ity of 00:00: [place] [address] [address] MORPHINE DRUG Active Other-Cmnt Univ ers INGREDI 01-15 ity of 00:00: [address] diazepam diazepam Active 2011-05 Memori a <sup>1</ <sup>1</ 0-23 l sup> sup> 05:00: midazola midazola Active 2011-05 Memori a m<sup>2< m<sup>2< 0-23 l /sup> /sup> 05:00: morphine morphine Active 2011-05 Memori a <sup>3</ <sup>3</ 0-23 l sup> sup> 05:00: midazola DA Active SV 2009-05 [facility] m HCl 05-13 00:00: [address] diazepam DA Active SV 2009-05 [facility] 05-13 00:00: [address] morphine DA Active MO 2009-05 [facility] 05-13 00:00: [address] NO KNOWN Drug Active Univers ALLERGIE Class ity of S [facility] morphine morphine Active Eldon Goldsmith cortison cortison Active Eldon Goldsmith Family History Family Member Diagnosis Comments Start Date Stop Date Source Natural father Cancer [facility] Natural father Liver cancer [facility] Natural father Liver disease [facility] father Lung cancer [facility] Maternal grandfather Heart disease [facility] Maternal grandfather Hypertension [facility] Maternal grandmother Heart disease [facility] Maternal grandmother Hypertension [facility] Natural mother Cancer [facility] Natural [facility] Natural mother Ovarian cancer [facility] Natural mother Stomach cancer [facility] Social History Social Habit Start Date Stop Date Quantity Comments Source Sexual orientation [facility] Alcohol intake 2022-12-11 2022-12-11 Current Zoroastrianism 00:00:00 00:00:00 non-drinker of Hospital alcohol (finding) History of Social 2022-12-11 2022-12-[address] function 00:00:00 00:00:00 Hospital Tobacco use and 2022-03-10 2022-03-10 Smokeless Zoroastrianism exposure 00:00:00 00:00:00 tobacco non-user [facility] Social History 2019-10-31 [facility] 07[facility]24:29 Sex Ass[birth year] [facility] 00:00:00 00:00:00 Medical Center Smoking Status Start Date Stop Date Source Tobacco smoking status [facility] Medications Ordered Filled Start Stop Current Ordering Indication Dosage Frequency Signature Comments Components Source Medication Medication Date Date Medication? Clinician (SIG) Name Name Ev KIM 2022-05 Yes 75 mg = 1 Me moria 75 mg oral 0-10 tab, PO, l tablet, 20:54: Q48H, # 16 Herm emmett disintegrat 00 tab, 1 ing Refill(s), given to patient Qulipta 60 2022-05 Yes 60 mg = 1 Me moria mg oral 0-05 tab, PO, l tablet 16:18: Daily, # Conrad 00 30 tab, 3 Refill(s), Pharmacy: [facility][id number], 165.1, cm, 02/04/23 10:42:00 CDT, Height, 80, kg, 02/04/23 10:42:00 CDT, Weight Topamax 25 Yes 25 mg = 1 Me moria mg oral 8-24 tab, PO, l tablet 16:05: BID, # 60 Dwight n 00 tab, 3 Refill(s), Pharmacy: [facility] #[id number], 165.1, cm, 12/24/22 10:41:00 CDT, Height, 81.818, kg, 12/24/22 10:41:00 CDT, Weight primidone 0 Yes TAKE 4 Memori a 50 mg oral 8-24 TABLETS BY l tablet 16:01: MOUTH Agus 00 TWICE A DAY aspirin 81 2022-0 Yes 81 mg = 1 Me moria mg oral 8-24 cap, PO, l capsule 15:41: Daily, 0 Dwight n 00 Refill(s) omeprazole 0 Yes TAKE 1 Memor ia 20 mg oral 8-24 CAPSULE BY l delayed 15:41: MOUTH Agus release 00 EVERY DAY capsule amLODIPine 0 Yes TAKE 1 Memor ia 10 mg oral 8-24 TABLET BY l tablet 15:41: MOUTH Agus 00 EVERY DAY gabapentin 2022-0 2022- No Titrate as Methodi (Neurontin) 06-10- directed st 300 mg 00:00: 00:00 up to 4 po [facility] capsule 00 :00 qhs l gabapentin 2022-0 2022- No Titrate as Methodi (Neurontin) 06-10- directed st 300 mg 00:00: 00:00 up to 4 po [facility]osp [facility] capsule 00 :00 qhs l clorazepate 2021-0 Yes 7.5mg Q.5D Take 1 Met hodi (TRANXENE) 6-[address] 7.5 MG 00:00: (7.5 mg Hospita tablet 00 total) by l mouth 2 (two) times a day. clorazepate 2021-0 Yes 7.5mg Q.5D Take 1 Met hodi (TRANXENE) 6-[address] 7.5 MG 00:00: (7.5 mg Hospita tablet 00 total) by l mouth 2 (two) times a day. pregabalin 2021-0 Yes TAKE 1 Metho di (LYRICA) 6-[address] 100 MG 00:00: MOUTH Hospita capsule 00 THREE l TIMES A DAY FOR 90 DAYS pregabalin 2021-0 Yes TAKE 1 Metho di (LYRICA) 6-[address] 100 MG 00:00: MOUTH Hospita capsule 00 THREE l TIMES A DAY FOR 90 DAYS primidone Yes 100 mg = 2 Me moria 50 mg oral - tab, PO, l tablet 21:25: BID, # 360 Maria E nn 00 tab, 3 Refill(s), Pharmacy: [facility] #[id number], 162.56, cm, 09/08/21 16:00:00 CDT, Height, 78.182, kg, 09/08/21 16:00:00 CDT, Weight primidone 2022- No 200mg Q.5D Take 4 Meth nik (MYSOLINE) 09-[address] 50 MG 00:00: 00:00 (200 mg Hospita tablet 00 :00 total) by l mouth 2 (two) times a day. primidone 2022- No 200mg Q.5D Take 4 Meth nik (MYSOLINE) 09-[address] 50 MG 00:00: 00:00 (200 mg Hospita tablet 00 :00 total) by l mouth 2 (two) times a day. amLODIPine 0 Yes 10mg QD Take 1 Metho di (NORVASC) 4-28 tablet (10 st 10 mg 00:00: mg total) Hospita tablet 00 by mouth l daily. amLODIPine 2021-0 Yes 10mg QD Take 1 Metho di (NORVASC) 4-28 tablet (10 st 10 mg 00:00: mg total) Hospita tablet 00 by mouth l daily. magnesium 0 Yes 400 mg = 1 Me moria oxide 400 2-10 tab, PO, l mg oral 15:09: Daily, 0 Dwight n tablet 00 Refill(s) Multi 2021-0 Yes 0 Memoria Vitamin+ 2-10 Refill(s) l 15:08: Agus 00 montelukast 0 Yes 10 mg = 1 M emoria 10 mg oral 2-10 tab, PO, l tablet 15:07: Bedtime, # Maria E nn 00 90 tab, 1 Refill(s) Trazodone 0 Yes 50 mg = 1 Mem oria Hydrochlori 2-10 tab, PO, l de 50 MG 15:07: Bedtime, # Her melendez Oral Tablet 00 30 tab, 1 Refill(s) Vitamin C 0 Yes 1,000 mg = Me moria 1000 mg 2-10 1 tab, PO, l oral tablet 15:05: Daily, 0 He rmann 00 Refill(s) amLODIPine No TAKE 1 Memor ia 10 [...] anxious, # 5 tab, 0 Refill(s), Pharmacy: [facility] #[id number], 165.1, cm, 03/24/21 13:57:00 VBA DEVELOPER, Height, 60.909, kg, 03/24/21 13:57:00 VBA DEVELOPER, Weight 24 HR 2020-05 No 37.5 mg = Memoria venlafaxine 2-21 1 cap, PO, l 37.5 MG 19:04: Daily, # Dwight n Extended 00 90 cap, 3 Release Refill(s), Capsule Pharmacy: [Effexor] [facility] #[id number], 165.1, cm, 03/24/21 13:57:00 VBA DEVELOPER, Height, 60.909, kg, 03/24/21 13:57:00 VBA DEVELOPER, Weight 24 HR 2020-05 Yes 37.5 mg = Memoria venlafaxine 1-23 1 cap, PO, l 37.5 MG 21:13: Daily, # Dwight n Extended 00 30 cap, 3 Release Refill(s), Capsule Pharmacy: [Effexor] [facility] #[id number], 165.1, cm, 03/24/21 13:57:00 VBA DEVELOPER, Height, 60.909, kg, 03/24/21 13:57:00 VBA DEVELOPER, Weight 24 HR 2020-05 No 37.5 mg = Memoria venlafaxine 1-22 1 cap, PO, l 37.5 MG 23:50: Daily, X Dwight n Extended 00 30 day, # Release 30 cap, 3 Capsule Refill(s), [Effexor] Pharmacy: [facility] #[id number], 165.1, cm, 03/24/21 13:57:00 VBA DEVELOPER, Height, 60.909, kg, 03/24/21 13:57:00 VBA DEVELOPER, Weight ubrogepant 2020-05 Yes 100 mg = 1 M emoria 100 MG Oral 1-22 tab, PO, l Tablet 20:55: PRN, PRN Conrad [Ubrelvy] 00 Other -See Comment, X 30 day, # 10 tab, 1 Refill(s), Pharmacy: [facility] #[id number], For Migraine. May repeat dose after 2 hours. Max dose 200 mg/ 24 hours, 165.1, cm, 03/24/21 13:57:00 VBA DEVELOPER, Height, 60.909, kg, 03/24/21 13:5... 24 HR 2020-05 No 37.5 mg = Memoria venlafaxine -22 1 cap, PO, l 37.5 MG 20:53: Daily, X Dwight n Extended day, # Release 30 cap, 3 Capsule Refill(s), [Effexor] Pharmacy: [facility] #[id number], 165.1, cm, 03/24/21 13:57:00 VBA DEVELOPER, Height, 60.909, kg, 03/24/21 13:57:00 VBA DEVELOPER, Weight 24 HR 2020-05 No 37.5 mg = Memoria venlafaxine -22 1 cap, PO, l 37.5 MG 20:44: Daily, X Dwight n Extended 00 day, # Release 30 cap, 3 Capsule Refill(s), [Effexor] [id number], 165.1, cm, 03/24/21 13:57:00 VBA DEVELOPER, Height, 60.909, kg, 03/24/21 13:57:00 VBA DEVELOPER, Weight primidone 2020-05 Yes 50 mg = 1 Mem oria 50 mg oral 1-17 tab, PO, l tablet 19:30: BID, # 180 Maria E nn 00 tab, 3 Refill(s), Pharmacy: [facility] #[id number], 165.1, cm, 03/19/21 13:14:00 VBA DEVELOPER, Height, 78.636, kg, 03/19/21 13:14:00 VBA DEVELOPER, Weight Potassium Yes 0 Memoria Chloride 8-11 Refill(s) l 15:44: Conrad 00 Elderberry Yes 0 Memoria preparation 8-11 Refill(s) l 15:43: Conrad 00 Mucinex Yes 600 mg, Memoria 8-11 PO, Q12H, l 15:43: 0 Conrad 00 Refill(s) Vitamin D3 Yes 10 Memoria oral tablet 8-11 microgram, l 15:42: PO, Daily, Conrad 00 0 Refill(s) Vitamin C Yes 1,000 mg = Me moria 1000 mg 811 1 tab, PO, l oral tablet 15:42: Daily, 0 He rm 00 Refill(s) Vitamin B12 Yes 0 Memori a 811 Refill(s) l 15:41: Conrad 00 clorazepate Yes 7.5 mg = 1 Memoria 7.5 mg oral 8-11 tab, PO, l tablet 15:40: TID, 0 Agus 00 Refill(s) amLODIPine Yes 5 mg = 1 Mem oria 5 mg oral 8-11 tab, PO, l tablet 15:39: Daily, # Agus 00 30 tab, 0 Refill(s) Omeprazole Yes 20 mg, PO, M emoria 4-07 QAM, 0 l 19:40: Refill(s) Conrad 00 Propranolol Yes 10 mg = 1 M emoria 4-07 tab, PO, l 19:38: Daily, # Agus 00 100 tab, 0 Refill(s) tizanidine Yes 4 mg = 1 Mem oria 4 mg oral 3-05 tab, PO, l tablet 18:47: Bedtime, Conrad 00 PRN for muscle spasm, # 30 tab, 2 Refill(s), Pharmacy: [facility] #[id number], 165.1, cm, 06/28/20 9:37:00 VBA DEVELOPER, Height, 68.182, kg, 06/28/20 9:37:00 VBA DEVELOPER, Weight primidone Yes 50 mg = 1 Mem oria 50 mg oral 2-26 tab, PO, l tablet 21:14: Bedtime, # Maria E nn 00 90 tab, 3 Refill(s), Pharmacy: [facility] #[id number], 165.1, cm, 06/28/20 9:37:00 VBA DEVELOPER, Height, 68.182, kg, 06/28/20 9:37:00 VBA DEVELOPER, Weight tizanidine Yes 4 mg = 1 Mem oria 4 mg oral 2-26 tab, PO, l tablet 16:18: BID, PRN Conrad 00 for muscle spasm, # 60 tab, 2 Refill(s), Pharmacy: [facility] #[id number], 165.1, cm, 06/28/20 9:37:00 VBA DEVELOPER, Height, 68.182, kg, 06/28/20 9:37:00 VBA DEVELOPER, Weight DULoxetine Yes 30 mg = 1 Me moria 30 mg oral 2-26 cap, PO, l delayed 16:18: Daily, # Dwight n release 00 30 cap, 3 capsule Refill(s), Pharmacy: [facility] #[id number], 165.1, cm, 06/28/20 9:37:00 VBA DEVELOPER, Height, 68.182, kg, 06/28/20 9:37:00 VBA DEVELOPER, Weight primidone No 50 mg = 1 Mem oria 50 mg oral 2-26 tab, PO, l tablet 16:18: Bedtime, X Maria E nn 00 30 day, # 30 tab, 3 Refill(s), Pharmacy: [facility] #[id number], 165.1, cm, 06/28/20 9:37:00 VBA DEVELOPER, Height, 68.182, kg, 06/28/20 9:37:00 VBA DEVELOPER, Weight tizanidine No 4 mg = 1 Mem oria 4 mg oral 2-26 tab, PO, l tablet 15:45: BID, PRN Conrad 00 for muscle spasm, # 30 tab, [...] 0 Refill(s) remove No Notes: Memoria patch 10-31 Remove l 05:40: patch 12 Agus 00 hours after applicatio n each day. sennosides, No Notes: Abdiel leig hann RESIDENTIAL 10-31 (Same as: l 02:00: Senokot) Agus 00 tramadol No Notes: Not Mem oria hydrochlori 6-30 to exceed l de 50 MG 19:00: 400mg/day. Her melendez Oral Tablet 00 (Same As: Ultram) Lidocaine Yes 1 patch, Abdile leigh ann Hydrochlori 6-30 TOP, l de 0.05 17:45: Daily, Agus MG/MG 00 Remove Transdermal after 12 Patch hours, # [Lidoderm] 30 patch, 0 Refill(s), Pharmacy: [facility] #[id number], 167.64, cm, 10/31/19 2:23:00 CDT, Height, 79.091, kg, 10/31/19 2:23:00 CDT, Weight {74 Yes 5 mg = 1 Memoria (apixaban 5 6-30 tab, PO, l MG Oral 17:45: BID, # 60 Maria E nn Tablet 00 tab, 0 [Eliquis]) Refill(s), } Pack Pharmacy: [Eliquis [id number], Starter 167.64, Pack] cm, 10/31/19 [...] ann 6-30 tab, l 14:00: Route: PO, Conrad 00 Drug form: TAB, Daily, Dosing Weight 83.636, kg, Start date: 10/31/19 9:00:00 CDT, Duration: 30 day, Stop date: 11/29/19 9:00:00 CDT Protonix 2019-0 No Notes: Memoria 6-30 Tablet l 14:00: should not Agus 00 be chewed or crushed. (Same as: Protonix) Acetaminoph 2019-0 No Notes: Abdiel leigh ann en 325 MG / 6-30 (Same as: l Hydrocodone 08:17: Anson Maria E nn Bitartrate 00 325/5) Do 5 MG Oral not exceed Tablet 4gm/day of [Anson acetaminop 5/325] hen. Hydromorpho 0 No Notes: Abdiel leigh ann ne 6-30 Same as l 08:16: Dilaudid Agus 00 Heparin 80 No Route: Memor ia unit/kg 6-30 IVP, PRN, l Bolus 07:25: 5,400 Conrad (Heparin 00 unit, 5.4 Dosing mL, Drug Weight) form: INJ, PRN, Heparin Protocol, Start date: 10/31/19 2:25:00 CDT Stop date: 11/30/19 2:24:00 CDT, 30 day, 0 Heparin 40 No Route: Memor ia unit/kg 6-30 IVP, PRN, l Bolus 07:25: 2,700 Conrad (Heparin 00 unit, 2.7 Dosing mL, Drug [...] not exceed l Hydrocodone 07:17: 4gm/day of Conrad Bitartrate 00 acetaminop 10 MG Oral hen. (Same Tablet as: Anson 325/10) clorazepate No Notes: Abdiel leigh ann 6-30 (Same As: l 07:17: Tranxene-T Agus 00 ) tizanidine 2019-0 No Notes: Memor ia 6-30 (Same As: l 07:17: Zanaflex) Agus 00 pregabalin 2019-0 Yes 100 mg = 1 [...] microgram l Oral 07:11: = 1 cap, Conrad Capsule 00 PO, Daily, [Linzess] 30 minutes prior to the first meal of the day, # 30 cap, 0 Refill(s) Dextrose 2020-0 No 12.5 gm, Memor ia 50% Syringe 6-30 25 mL, l (D50W) 07:06: Route: Conrad 00 IVP, Drug Form: INJ, Dosing Weight [...] tab, PO, l Coated 17:17: Daily, # Conrad Tablet 00 90 tab, 3 Refill(s) cefdinir 2020-0 Yes 300 mg = 1 Mem oria 300 MG Oral 1-03 cap, PO, l Capsule 16:58: BID, # 20 Maria E nn 00 cap, 0 Refill(s) Estrogens, Yes 0.3 mg = 1 M emoria Conjugated 8-22 tab, PO, l (RESIDENTIAL) 0.3 13:52: Daily, # Herm emmett MG Oral 00 30 tab, 0 Tablet Refill(s) [Premarin] Acetaminoph Yes 1 tab, PO, Memoria en 325 MG / 8-22 Q6H, 0 l Hydrocodone 13:52: Refill(s) H ermann Bitartrate 00 10 MG Oral Tablet Belbuca Yes BUC, Q12H, Abdiel leigh ann 6-19 0 l 16:41: Refill(s) Conrad Buprenorphi Yes 150 Memori a ne 0.15 MG 6-19 microgram l Buccal Film 16:41: = 1 ea, Her melendez [Belbuca] 00 BUC, BID, 0 Refill(s) amitriptyli Yes 20 mg = 2 M emoria ne 10 mg 4-18 tab, PO, l oral tablet 15:16: Bedtime, # Conrad 24 180 tab, 3 Refill(s), Pharmacy: [id number] Acetaminoph Yes 1 tab, PO, Memoria en 300 MG / 1-05 TID, PRN l Codeine 03:39: Pain, X 4 Maria E nn Phosphate 00 day, # 12 30 MG Oral tab, 0 Tablet Refill(s) [Tylenol with Codeine #3] acetaminoph No Notes: Do M emoria en-codeine 1-05 not exceed l #3 03:38: 4gm/day of Agus acetaminop hen. (Same as: Tylenol with Codeine # 3) Ondansetron No Notes: Abdiel leigh ann -04 (Same as: l 18:46: Zofran) Conrad MEDICATION WASTE Product Size: 4 mg Product Wasted: ___ mg Sodium No 1,000 mL, Memori a Chloride 05-06 1000 l 0.9% 18:46: ml/hr, Agus (Bolus) IV 00 Infuse Over: 1 hr, Route: IV, 1,000, Drug form: INJ, ONCE, Priority: STAT, Dosing Weight 61.364 kg, Start date: 05/06/17 12:46:00 VBA DEVELOPER, Stop date: 05/06/17 12:46:00 VBA DEVELOPER Saline No Notes: Memoria Flush 0.9% 05-06 (Same as: l 18:46: BD Posiflush) omeprazole Yes QD Take by Meth nik (PriLOSEC) 8-[address] 20 MG 00:00: daily. Hospita capsule 00 l omeprazole Yes QD Take by Meth nik (PriLOSEC) 8-[address] 20 MG 00:00: daily. Hospita capsule 00 l hyoscyamine No Weston 0.125 mg, Memoria 01-23 Sajja 1 tab, l 16:30: Route: PO, Conrad Drug form: TAB, QID-Before Meals, Dosing Weight [...] needed for pain, Substituti on Allowed, TAB Anson No Weston 1 tab, Memoria 10/325 oral 01-23 Route: PO, l tablet 02:22: Drug Form: [...] be infused by Radiology Staff ONLY" Dilaudid 2012- No Weston 0.5 mg, Abdiel leigh ann 01-22 Sajja 0.25 mL, l 17:17: Route: IV, Conrad 00 Drug form: INJ, Q4H, Dosing Weight 65, kg, PRN as needed for pain, Start date: 01/22/13 12:17:00, Duration: 30 day, Stop date: 02/21/13 12:16:00 Anson 2012-0 No Weston 1 tab, Memoria oral 01-22 Sajja Route: PO, l tablet [...] day, Stop date: 02/20/13 13:00:00 D5W 1/2NS 0 No Weston 1,000 mL, M emoria 1,000 [...] No Weston 40 mg, 1 Mem oria - Sajja tab, l 14:00: Route: PO, Conrad 00 Drug form: ECTAB, Daily, Dosing Weight 65, kg, Start date: 01/21/13 9:00:00, Duration: 30 day, Stop date: 02/19/13 9:00:00 Dilaudid 2012- No Elyssa 0.5 mg, Abdiel leigh ann 9-21 Luis 0.25 mL, l 03:21: Route: IV, Drug form: INJ, ONCE, Dosing Weight 65, kg, PRN as needed for pain, Start date: 01/20/13 22:21:00 Zosyn 2012-0 No Weston 3.375 gm, Memor ia 9-20 Sajja Route: l 16:00: IVPB, Drug form: PDR/INJ, [id number], Start date: 01/20/13 11:00:00, Stop date: 02/19/13 2:00:00 enoxaparin No Elyssa 40 mg, 0.4 Memoria 9-20 Luis mL, Route: l 11:00: SUB-Q, Drug form: INJ, [id number], Dosing Weight 65, kg, Start date: 01/20/13 6:00:00, Duration: 30 day, Stop date: 02/18/13 6:00:00 NS + KCL No Elyssa 1,000 mL, Me moria 20mEq/L 9-20 Luis Rate: 125 l 1000ml 10:25: ml/hr, (Premix) 00 Infuse 1,000 mL over: 8 hr, Route: IV, Dosing Weight 65 kg, Total Volume: 1,000, Start date: 01/20/13 5:25:00, Duration: 30 day, Stop date: 02/19/13 5:24:00 Zosyn 2012- No Elyssa 3.375 gm, Memor ia 9-20 Luis Route: l 10:24: IVPB, Drug form: INJ, Q6H, Dosing Weight 65, kg, Priority: STAT, Start date: 01/20/13 5:24:00, Duration: 30 day, Stop date: 02/19/13 0:00:00 Dilaudid 2012- No Weston 0.5 mg, Abdiel leigh ann 9-20 Sajja 0.25 mL, l 10:23: Route: IV, Agus Drug form: INJ, Q4H, Dosing Weight 65, kg, PRN as needed for pain, Start date: 01/20/13 5:23:00, Duration: 30 day, Stop date: 02/19/13 5:22:00 docusate Yes Substituti Mem oria 01-20 on Allowed l 10:21: Conrad 15 ondansetron No Elyssa 4 mg, 2 M emoria 01-20 Luis mL, Route: l 10:15: IVP, Drug form: INJ, Q8H, Dosing Weight 65, kg, PRN Nausea & Vomiting, Start date: 01/20/13 5:15:00, Duration: 30 day, Stop date: 02/19/13 5:14:00 NS 1,000 mL No Peter 1,000 mL, Memoria -20 Hardeep Rate: 75 l 09:41: Catherine ml/hr, Infuse over: 13.3 hr, Route: IV, Dosing Weight 65 kg, Total Volume: 1,000, Start date: 01/20/13 4:41:00, Duration: 30 day, Stop date: 02/19/13 4:40:00 Zosyn No Weston 3.375 gm, Memor ia 01-20 Sajja Route: l 08:51: IVPB, Drug form: PDR/INJ, ONCE, Dosing Weight 65, kg, Priority: STAT, Start date: 01/20/13 3:51:00, Stop date: 01/20/13 3:51:00 fentanyl No Peter 50 Memoria -20 Hardeep microgram, l 08:43: Catherine Route: Conrad 00 IVP, ONCE, Dosing Weight 65, kg, Priority: STAT, Start date: 01/20/13 3:43:00, Stop date: 01/20/13 3:43:00 Zofran No Peter 4 mg, 2 Memoria 9-20 Hardeep mL, Route: l 06:32: Catherine IVP, Drug Maria E form: INJ, ONCE, Dosing Weight 65, kg, Priority: STAT, Start date: 01/20/13 1:32:00, Stop date: 01/20/13 1:32:00 fentanyl No Willian 50 Memoria 20 Hardeep microgram, l 04:31: Catherine Route: Conrad 00 IVP, ONCE, Dosing Weight 65, kg, [...] ONLY" NS (Bolus) No Willian 1,000 mL, Fabian cherrie IV 1000 mL 01-20 Hardeep Rate: l 03:38: Catherine 1,000 Conrad 00 ml/hr, Infuse over: 1 hr, Route: IV, Dosing Weight 65 kg, Total Volume: 1,000, Priority: STAT, Start date: 01/19/13 22:38:00, Duration: 1 doses or times, Stop date: 01/19/13 23:37:00, Bolus DoseBolus Dose fentanyl No Willian 50 Memoria 01-20 Hardeep microgram, l 03:13: Catherine 1 mL, Conrad 00 Route: IVP, Drug form: INJ, ONCE, [...] Mem oria 9-16 on Allowed l 19:02: Conrad 32 Premarin 2013-0 Yes Substituti Mem oria 9-16 on Allowed l 19:02: Conrad 20 Vital Signs Vital Name Observation Time Observation Value Comments Source Systolic (mm Hg) 2023-02-09 20:27:00 Abdiel rial Conrad Diastolic (mm Hg) 2023-02-09 20:27:00 Mem orial Conrad Heart Rate 2023-02-09 20:27:00 [facility] Height 2023-02-09 20:27:00 5 [ft_i] [facility] Weight 2023-02-09 20:27:00 [facility] BMI Calculated 2023-02-09 20:27:00 Memori al Agus Systolic (mm Hg) 2023-02-04 14:36:00 Abdiel rial Conrad Diastolic (mm Hg) 2023-02-04 14:36:00 Mem orial Agus Heart Rate 2023-02-04 14:36:00 [facility] Height 2023-02-04 14:36:00 5 [ft_i] [facility] Weight 2023-02-04 14:36:00 [facility] BMI Calculated 2023-02-04 14:36:00 [facility] Conrad Systolic (mm Hg) 2022-12-24 15:36:00 Abdiel rial Conrad Diastolic (mm Hg) 2022-12-24 15:36:00 Mem orial Conrad Heart Rate 2022-12-24 15:36:00 [facility] Height 2022-12-24 15:36:00 5 [ft_i] [facility] Weight 2022-12-24 15:36:00 [facility] BMI Calculated 2022-12-24 15:36:00 [facility]ori [facility] Conrad Systolic blood 2022 20:23:00 124 mm[Hg[facility] pressure Diastolic blood 2022 20:23:00 75 mm[Hg] [facility] pressure Heart rate 2022 20:23:00 79 [facility] 2022 20:23:00 [facility].5 [facility]22 20[facility]23[facility]00 [facility]6 [facility] Body weight 2022 20:23:00 83.212 kg [facility] BMI 2022 20:23:00 29.61 kg/m2 [facility] Systolic (mm Hg) 2021-09-18 15:52:00 Abdiel rial Conrad Diastolic (mm Hg) 2021-09-18 15:52:00 Mem orial Agus Heart Rate 2021-09-18 15:52:00 [facility] Respitory Rate 2021-09-18 15:52:00 Memori al Agus Height 2021-09-18 15:52:00 165.1 cm [facility] Conrad Weight 2021-09-18 15:52:00 [facility] BMI Calculated 2021-09-18 15:52:00 Mem[facility] al Conrad Systolic (mm Hg) 2021-09-08 20:55:00 Abdiel rial Conrad Diastolic (mm Hg) 2021-09-08 20:55:00 Mem orial Agus Heart Rate 2021-09-08 20:55:00 [facility] Respitory Rate 2021-09-08 20:55:00 [facility] Height 2021-09-08 20:55:00 162.56 cm [facility] Weight 2021-09-08 20:55:00 [facility] BMI Calculated 2021-09-08 20:55:00 [facility] Systolic (mm Hg) 2021-06-12 15:00:00 Abdiel rial Conrad Diastolic (mm Hg) 2021-06-12 15:00:00 Mem orial Conrad Heart Rate 2021-06-12 15:00:00 [facility] Respitory Rate 2021-06-12 15:00:00 [facility] Height 2021-06-12 15:00:00 162.56 cm [facility] Weight 2021-06-12 15:00:00 [facility] BMI Calculated 2021-06-12 15:00:00 [facility] Systolic (mm Hg) 2021-03-24 19:57:00 Abdiel rial Agus Diastolic (mm Hg) 2021-03-24 19:57:00 Mem orial Agus Heart Rate 2021-03-24 19:57:00 [facility] Respitory Rate 2021-03-24 19:57:00 [facility] Height 2021-03-24 19:57:00 165.1 cm [facility] Weight 2021-03-24 19:57:00 [facility] BMI Calculated 2021-03-24 19:57:00 [facility] Systolic (mm Hg) 2021-03-19 19:07:00 Abdiel rial Agus Diastolic (mm Hg) 2021-03-19 19:07:00 Mem orial Agus Heart Rate 2021-03-19 19:07:00 [facility] Respitory Rate 2021-03-19 19:07:00 [facility] Height 2021-03-19 19:07:00 165.1 cm [facility] Weight 2021-03-19 19:07:00 [facility] BMI Calculated 2021-03-19 19:07:00 [facility] Conrad Systolic (mm Hg) 2020-12-11 15:39:00 Abdiel rial Conrad Diastolic (mm Hg) 2020-12-11 15:39:00 Mem orial Conrad Heart Rate 2020-12-11 15:39:00 [facility] Respitory Rate 2020-12-11 15:39:00 [facility] Height 2020-12-11 15:39:00 165.1 cm [facility] Weight 2020-12-11 15:39:00 [facility] BMI Calculated 2020-12-11 15:39:00 Mem[facility] Agus Systolic (mm Hg) 2020-08-07 19:13:00 Abdiel rial Conrad Diastolic (mm Hg) 2020-08-07 19:13:00 Mem orial Agus Heart Rate 2020-08-07 19:13:00 [facility] Respitory Rate 2020-08-07 19:13:00 [facility] Height 2020-08-07 19:13:00 167.64 cm [facility] Weight 2020-08-07 19:13:00 [facility] BMI Calculated 2020-08-07 19:13:00 [facility] Systolic (mm Hg) 2020-06-28 15:37:00 Abdiel rial Conrad Diastolic (mm Hg) 2020-06-28 15:37:00 Mem orial Agus Heart Rate 2020-06-28 15:37:00 [facility] Respitory Rate 2020-06-28 15:37:00 [facility] Height 2020-06-28 15:37:00 165.1 cm [facility] Weight 2020-06-28 15:37:00 [facility] BMI Calculated 2020-06-28 15:37:00 [facility] Temperature Oral (F) 2019-10-31 20:24:00 98.1 F [facility] Heart Rate 2019-10-31 20:24:00 [facility] Respitory Rate 2019-10-31 20:24:00 [facility] Systolic (mm Hg) 2019-10-31 20:24:00 Abdiel rial Agus Diastolic (mm Hg) 2019-10-31 20:24:00 Mem orial Conrad Temperature Oral (F) 2019-10-31 16:12:00 98.2 F [facility] Heart Rate 2019-10-31 16:12:00 [facility] Respitory Rate 2019-10-31 16:12:00 [facility] Conrad Systolic (mm Hg) 2019-10-31 16:12:00 Abdiel rial Agus Diastolic (mm Hg) 2019-10-31 16:12:00 Mem orial Agus Temperature Oral (F) 2019-10-31 12:25:00 97.9 F [facility] Heart Rate 2019-10-31 12:25:00 [facility] Respitory Rate 2019-10-31 12:25:00 Mem[facility] Conrad Systolic (mm Hg) 2019-10-31 12:25:00 Abdiel rial Conrad Diastolic (mm Hg) 2019-10-31 12:25:00 Mem orial Conrad Height 2019-10-31 07:23:00 167.64 cm [facility] Weight 2019-10-31 07:23:00 [facility] BMI Calculated 2019-10-31 07:23:00 [facility] Agus Systolic (mm Hg) 2019-05-05 16:51:00 Abdiel rial Conrad Diastolic (mm Hg) 2019-05-05 16:51:00 Mem orial Agus Heart Rate 2019-05-05 16:51:00 [facility] Respitory Rate 2019-05-05 16:51:00 [facility] Height 2019-05-05 16:51:00 165.1 cm [facility] Weight 2019-05-05 16:51:00 [facility] BMI Calculated 2019-05-05 16:51:00 [facility] Systolic (mm Hg) 2019-03-22 17:27:00 Abdiel rial Conrad Diastolic (mm Hg) 2019-03-22 17:27:00 Mem o[facility] Conrad Heart Rate 2019-03-22 17:27:00 [facility] Respitory Rate 2019-03-22 17:27:00 [facility] Height 2019-03-22 17:27:00 165.1 cm [facility] Weight 2019-03-22 17:27:00 [facility] BMI Calculated 2019-03-22 17:27:00 [facility] Systolic (mm Hg) 2019-03-15 17:56:00 Abdiel rial Conrad Diastolic (mm Hg) 2019-03-15 17:56:00 Mem o[facility] Conrad Heart Rate 2019-03-15 17:56:00 [facility] Respitory Rate 2019-03-15 17:56:00 [facility]us Height 2019-03-15 17:56:00 165.1 cm [facility] Weight 2019-03-15 17:56:00 [facility] BMI Calculated 2019-03-15 17:56:00 [facility] Systolic (mm Hg) 2018-12-21 16:44:00 Abdiel rial Agus Diastolic (mm Hg) 2018-12-21 16:44:00 Mem orial Conrad Heart Rate 2018-12-21 16:44:00 [facility] Respitory Rate 2018-12-21 16:44:00 [facility] Height 2018-12-21 16:44:00 165.1 cm [facility] Weight 2018-12-21 16:44:00 [facility] BMI Calculated 2018-12-21 16:44:00 [facility] BMI Calculated 2018-10-19 16:19:00 [facility] Height 2018-10-19 16:19:00 167.64 cm [facility] Weight 2018-10-19 16:19:00 [facility] Systolic (mm Hg) 2018-10-19 16:19:00 Abdiel rial Conrad Diastolic (mm Hg) 2018-10-19 16:19:00 Mem orial Conrad Respitory Rate 2018-10-19 16:19:00 Mem[facility] al Agus Heart Rate 2018-10-19 16:19:00 [facility] BMI Calculated 2018-09-08 19:24:00 [facility] Weight 2018-09-08 19:24:00 [facility] Height 2018-09-08 19:24:00 167.64 cm [facility] Respitory Rate 2018-09-08 19:24:00 [facility] Heart Rate 2018-09-08 19:24:00 [facility] Systolic (mm Hg) 2018-09-08 19:24:00 Abdiel rial Conrad Diastolic (mm Hg) 2018-09-08 19:24:00 Mem orial Agus Heart Rate 2017-05-07 04:11:00 [facility] Systolic (mm Hg) 2017-05-07 04:11:00 Abdiel rial Agus Diastolic (mm Hg) 2017-05-07 04:11:00 Mem o[facility] Conrad Respitory Rate 2017-05-07 04:11:00 [facility] Conrad Temperature Oral (F) 2017-05-07 04:11:00 98.0 F [facility] Temperature Oral (F) 2017-05-07 02:30:00 97.7 F [facility] Systolic (mm Hg) 2017-05-07 02:30:00 Abdiel rial Conrad Diastolic (mm Hg) 2017-05-07 02:30:00 Mem orial Agus Heart Rate 2017-05-07 02:30:00 [facility] Respitory Rate 2017-05-07 02:30:00 Memori al Agus Weight 2017-05-06 18:43:00 [facility] Temperature Oral (F) 2017-05-06 18:43:00 98.2 F [facility] Heart Rate 2017-05-06 18:43:00 [facility] Respitory Rate 2017-05-06 18:43:00 [facility] Conrad Systolic (mm Hg) 2017-05-06 18:43:00 Abdiel rial Conrad Diastolic (mm Hg) 2017-05-06 18:43:00 Mem orial Conrad Heart Rate 2013-01-23 12:37:00 [facility] Temperature Oral (F) 2013-01-23 12:37:00 98.1 F [facility] Respitory Rate 2013-01-23 12:37:00 Memori al Conrad Systolic (mm Hg) 2013-01-23 12:37:00 Abdiel rial Conrad Diastolic (mm Hg) 2013-01-23 12:37:00 Mem orial Agus Diastolic (mm Hg) 2013-01-23 10:13:00 Mem o[facility] Agus Systolic (mm Hg) 2013-01-23 10:13:00 Abdiel rial Agus Heart Rate 2013-01-23 10:13:00 [facility] Respitory Rate 2013-01-23 10:13:00 Memori al Agus Temperature Oral (F) 2013-01-23 10:13:00 98.4 F [facility] Heart Rate 2013-01-23 00:10:00 [facility] Systolic (mm Hg) 2013-01-23 00:10:00 Abdiel rial Agus Respitory Rate 2013-01-23 00:10:00 Memori al Agus Diastolic (mm Hg) 2013-01-23 00:10:00 Mem o[facility] Agus Temperature Oral (F) 2013-01-23 00:10:00 98.5 F [facility] Height 2013-01-20 14:20:00 158.4 cm [facility] Height 2013-01-20 01:53:00 160.02 cm [facility] Weight 2013-01-20 01:53:00 [facility] Weight 2013-01-16 19:03:00 [facility] Diastolic (mm Hg) 2013-01-16 19:03:00 Mem orial Conrad Systolic (mm Hg) 2013-01-16 19:03:00 Abdiel rial Conrad Temperature Oral (F) 2013-01-16 19:03:00 98.5 F [facility] Respitory Rate 2013-01-16 19:03:00 Memori al Agus Heart Rate 2013-01-16 19:03:00 [facility] Procedures Procedure Date / Time Performed Performing Clinician Sour e cholecys <sup>1</sup> [facility] ermann cholecys<sup>1</sup> [facility] rmann Laminectomy for [facility] decompression and exploration Plan of Care Planned Activity Planned Date Details Comments Source Future Scheduled 2023-02-19 INFLUENZA VACCINE (#1) [facility] Test 09:50:14 [code = INFLUENZA VACCINE (#1)] Future Scheduled 2023-02-19 Screening for [facility] Test 09:50:14 malignant neoplasm of colon (procedure) [code = 605846571] Future Scheduled 2023-02-19 Screening for [facility] Test 09:50:14 malignant neoplasm of colon (procedure) [code = 339898990] Future Scheduled 2023-02-19 Screening for [facility] Test 09:50:14 malignant neoplasm of colon (procedure) [code = 748574191] Future Scheduled 2023-02-19 COVID-19 VACCINE (#1) [facility] Test 09:50:14 [code = COVID-19 VACCINE (#1)] Future Scheduled 2023-02-19 Hepatitis C screening [facility] Test 09:50:14 (procedure) [code = 553573164] Future Scheduled 2023-02-19 Screening for [facility] Test 09:50:14 malignant neoplasm of colon (procedure) [code = 337531086] Future Scheduled 2023-02-19 Screening for [facility] Test 09:50:14 malignant neoplasm of colon (procedure) [code = 261319683] Future Scheduled 2023-02-19 SHINGLES VACCINES (1 [facility] Test 09:50:14 of 2) [code = SHINGLES VACCINES (1 of 2)] Future Scheduled 2023-02-19 RSV VACCINES > 60 YR [facility] Test 09:50:14 (1 - 1-dose 60+ series) [code = RSV VACCINES > 60 YR (1 - 1-dose 60+ series)] Future Scheduled 2023-02-19 BREAST CANCER [facility] Test 09:50:14 SCREENING [code = BREAST CANCER SCREENING] Future Scheduled 2023-02-19 65+ PNEUMOCOCCAL [facility] Test 09:50:14 VACCINE (1 - PCV) [code = 65+ PNEUMOCOCCAL VACCINE (1 - PCV)] Future Scheduled 2023-01-19 Screening for [facility] Test 15:07:02 malignant neoplasm of colon (procedure) [code = 891371629] Future Scheduled 2023-01-19 Screening for [facility] Test 15:07:02 malignant neoplasm of colon (procedure) [code = 099823618] Future Scheduled 2023-01-19 Screening for [facility] Test 15:07:02 malignant neoplasm of colon (procedure) [code = 692528776] Future Scheduled 2023-01-19 COVID-19 VACCINE (#1) [facility] Test 15:07:02 [code = COVID-19 VACCINE (#1)] Future Scheduled 2023-01-19 Hepatitis C screening [facility] Test 15:07:02 (procedure) [code = 735488414] Future Scheduled 2023-01-19 Screening for [facility] Test 15:07:02 malignant neoplasm of colon (procedure) [code = 417935693] Future Scheduled 2023-01-19 Screening for [facility] Test 15:07:02 malignant neoplasm of colon (procedure) [code = 606119090] Future Scheduled 2023-01-19 SHINGLES VACCINES (1 [facility] Test 15:07:02 of 2) [code = SHINGLES VACCINES (1 of 2)] Future Scheduled 2023-01-19 BREAST CANCER [facility] Test 15:07:02 SCREENING [code = BREAST CANCER SCREENING] Future Scheduled 2023-01-19 65+ PNEUMOCOCCAL [facility] Test 15:07:02 VACCINE (1 - PCV) [code = 65+ PNEUMOCOCCAL VACCINE (1 - PCV)] Future Scheduled 2023-01-19 INFLUENZA VACCINE (#1) [facility] Test 15:07:02 [code = INFLUENZA VACCINE (#1)] Encounters Start End Encounter Admission Attending Care Care Encounter Source Date/Time Date/Time Type Type Clinicians Facility Department ID 2023-02-21 Outpatient nullFlavo JOSELUIS Brooks [id number] Memoria 13:22:53 r Medical 02 [facility] 2022-07-27 Out[facility] [id number] Common 13:08:01 [id number] [facility] 2021-11-27 Outpatient [facility] [id number] Common 08:50:01 [facility] 2021-07-07 Outpatient [facility] [id number] Common 13:50:04 [facility] 2023-04-12 2023-04-12 Outpatient MIREILLE KENDRICK [id number] Memoria 13:15:00 13:15:00 28 [facility] 2023-04-09 2023-04-09 Outpatient GUILHERME KENDRICK [id number] Memoria 11:15:00 11:15:00 26 larry Goldsmith 2023-02-09 2023-02-10 Outpatient MHIE MNA [id number] Memoria 20:30:00 04:59:59 Neurology 27 l Dolly Goldsmith 2023-02-09 2023-02-09 Outpatient Suzanne MISCHER MISCHER [id number] 15:30:00 23:59:59 Felice 27 Naren 2023-02-09 2023-02-09 Outpatient MHIE MHIE [id number] Memoria 15:30:00 15:30:00 27 larry Goldsmith 2023-02-04 2023-02-05 Outpatient MHIE MNA [id number] Memoria 15:45:00 04:59:59 Neurology 25 larry Goldsmith 2023-02-04 2023-02-04 Outpatient Suzanne MISCHER MHMISCHER [id number] 10:45:00 23:59:59 Felice 25 Naren 2023-02-04 2023-02-04 Outpatient MHIE MHIE [id number] Memoria 10:45:00 10:45:00 25 larry Goldsmith 2022-12-24 2022-12-25 Outpatient MHIE MNA [id number] Memoria 15:45:00 04:59:59 Neurology 24 larry Goldsmith 2022-12-24 2022-12-24 [id number] 10:45:00 23:59:59 Felice 24 Naren 2022-12-24 2022-12-24 Outpatient MHIE MHIE [id number] Memoria 10:45:00 10:45:00 24 larry Goldsmith 2022 2022 Clinical Ondo, 1.2.840.1 [id number] Methodi 15:30:00 15:50:41 Support Naren 16734.1.1 288 [facility] 3.430.2.7 Hospit a .3.788443 l .8 2022 2022 Clinical Ondo, 1.2.840.1 [id number] Methodi 15:30:00 15:50:41 Support Naren 48014.1.[address] [facility] 3.430.2.7 Hospit a .3.387540 l .8 2022-09-08 2022-09-08 Clinical Ondo, 1.2.840.1 [id number] Methodi 09:00:00 10:20:12 Support Naren 59147.1.[address] [facility] 3.430.2.7 Hospit a .3.713402 l .8 2022-09-08 2022-09-08 Clinical Ondo, 1.2.840.1 [id number] Methodi 09:00:00 10:20:12 Support Naren 73025.1.[address] [facility] 3.430.2.7 Hospit a .3.901155 l .8 2022-09-08 2022-09-08 Travel 1.2.840.1 1.2.602.665 3429 [id number] Methodi 00:00:00 00:00:[address] 3.430.2.7 0.2.7.3.698 Ho spita .3.065364 084.8 l .8 2022-09-08 2022-09-08 Travel 1.2.840.1 1.2.152.102 4602 [id number] Methodi 00:00:00 00:00:[address] 3.430.2.7 0.2.7.3.698 Ho spita .3.749632 084.8 l .8 2022-08-18 2022-08-18 Transcribe Ondo, 1.2.840.1 [id number] Methodi 00:00:00 00:00:00 Orders Naren 87854.1.[address] [facility] 3.430.2.7 Hospit a .3.399282 l .8 2022-08-18 2022-08-18 Transcribe Ondo, 1.2.840.1 [id number] [id number] Methodi 00:00:00 00:00:00 Orders Naren 05586.1.[address] [place] 3.430.2.7 Hospit a .3.009201 l .8 2022-08-13 2022-08-13 Travel 1.2.840.1 1.2.261.134 1067 [id number] Methodi 00:00:00 00:00:[address] 3.430.2.7 0.2.7.3.698 Ho spita .3.111032 084.8 l .8 2022-08-13 2022-08-13 Travel 1.2.840.1 1.2.300.704 6300 [id number] Methodi 00:00:00 00:00:[address] 3.430.2.7 0.2.7.3.698 Ho spita .3.907382 084.8 l .8 2022-06-11 2022-06-11 Telephone Nam, 1.2.840.1 [id number] 2099 [id number] Methodi 00:00:00 00:00:[address] 3.430.2.7 Hospit a .3.135669 l .8 2022-06-11 2022-06-11 Telephone Nam, 1.2.840.1 [id number] 2099 [id number] Methodi 00:00:00 00:00:[address] 3.430.2.7 Hospit a .3.598359 l .8 2022-06-10 2022-06-10 Telephone Ondo, 1.2.840.1 [id number] 2099 [id number] Methodi 00:00:00 00:00:[address] [place] 3.430.2.7 Hospit a .3.967860 l .8 2022-06-10 2022-06-10 Telephone Ondo, 1.2.840.1 [id number] 2099 [id number] Methodi 00:00:00 00:00:[address] [place] 3.430.2.7 Hospit a .3.171505 l .8 2022-06-092022-06-09 Clinical Ondo, 1.2.840.1 [id number] 09933 55266 Methodi 10:45:00 11:59:28 Support Naren 22496.1.[address] [place] 3.430.2.7 Hospit a .3.686607 l .8 2022-06-09 2022-06-09 Clinical Ondo, 1.2.840.1 [id number] 22408 75176 Methodi 10:45:00 11:59:28 Support Naren 28893.1.[address] [place] 3.430.2.7 Hospit a .3.246469 l .8 2022-06-09 2022-06-09 Travel 1.2.840.1 1.2.420.700 7114 [id number] Methodi 00:00:00 00:00:[address] 3.430.2.7 0.2.7.3.698 Ho spita .3.249840 084.8 l .8 2022-06-09 2022-06-09 Travel 1.2.840.1 1.2.735.312 2144 [id number] Methodi 00:00:00 00:00:[address] 3.430.2.7 0.2.7.3.698 Ho spita .3.099807 084.8 l .8 2022-03-16 2022-03-16 Telephone Nam, 1.2.840.1 [id number] 2099 [id number] Methodi 00:00:00 00:00:[address] 3.430.2.7 Hospit a .3.398528 l .8 2022-03-16 2022-03-16 Telephone Nam, 1.2.840.1 [id number] 2099 [id number] Methodi 00:00:00 00:00:[address] 3.430.2.7 Hospit a .3.843902 l .8 2022-03-10 2022-03-10 Clinical Ondo, 1.2.840.1 [id number] 75987 60553 Methodi 10:15:00 11:03:19 Support Naren 91661.1.[address] [place] 3.430.2.7 Hospit a .3.833141 l .8 2022-03-10 2022-03-10 Clinical Ondo, 1.2.840.1 [id number] [id number] Methodi 10:15:00 11:03:19 Support Naren 05257.1.[address] [place] 3.430.2.7 Hospit a .3.327528 l .8 2022-03-10 2022-03-10 Travel 1.2.840.1 1.2.247.418 2315 604454 Methodi 00:00:00 00:00:[address] 3.430.2.7 0.2.7.3.698 Ho spita .3.265984 084.8 l .8 2022-03-10 2022-03-10 Travel 1.2.840.1 1.2.015.629 7409 234010 Methodi 00:00:00 00:00:[address] 3.430.2.7 0.2.7.3.698 Ho spita .3.024006 084.8 l .8 2021-12-30 2021-12-30 Outpatient [facility] [id number] [place] 00:00:00 00:00:00 NAREN [address] 2021 2021 Ambulatory nullFlavo MNA [id number] Memoria 19:15:00 19:15:00 Pre-Reg r Neurology 21 l Dolly Goldsmith 2021 2021 Outpatient MIREILLE KENDRICK [id number] Memoria 14:15:00 14:15:00 21 l Agus 2021 2021 Outpatient BRIANA Palacios [id number] 14:15:00 14:15:00 Felice 21 Naren 2021-11-26 2021-11-26 Outpatient [facility] [id number] [place] 00:00:00 00:00:00 NAREN 954 Method i 2021-11-18 2021-11-18 Outpatient PAULINO [facility] [id number] [place] 00:00:00 00:00:00 NAREN [address] 2021-10-17 2021-10-17 Ambulatory nullFlavo MNA [id number] Memoria 19:45:00 19:45:00 Pre-Reg r Neurology 23 l Dolly Conrad 2021-10-17 2021-10-17 Outpatient MHIE MHIE [id number] Memoria 14:45:00 14:45:00 23 larry CummingsAgus 2021-10-17 2021-10-17 [id number] 14:45:00 14:45:00 Felice 23 Naren 2021-09-18 2021-09-19 Outpatient nullFlavo MNA [id number] Memoria 16:15:00 04:59:59 r Neurology 22 l Dolly Goldsmith 2021-09-18 2021-09-18 Outpatient Suzanne ALKASCHER MISCHER [id number] 11:15:00 23:59:59 Felice 22 Naren 2021-09-18 2021-09-18 Outpatient MHIE MHIE [id number] Memoria 11:15:00 11:15:00 22 larry Agus 2021-09-08 2021-09-09 Outpatient nullFlavo MNA [id number] Memoria 21:00:00 04:59:59 r Neurology 20 l Dolly Goldsmith 2021-09-08 2021-09-08 Outpatient Suzanne ALKASCHER MISCHER [id number] 16:00:00 23:59:59 Felice 20 Naren 2021-09-08 2021-09-08 Outpatient MHIE MHIE [id number] Memoria 16:00:00 16:00:00 20 larry Agus 2021-06-12 2021-06-13 Outpatient nullFlavo MNA [id number] Memoria 15:15:00 05:59:59 r Neurology 16 l Dolly Goldsmith 2021-06-12 2021-06-12 Outpatient Suzanne MHMISCHER MHMISCHER [id number] 09:15:00 23:59:59 Felice 16 Naren 2021-06-12 2021-06-12 Outpatient MHIE MHIE [id number] Memoria 09:15:00 09:15:00 16 larry Goldsmith 2021-04-30 2021-04-30 Outpatient MHIE MHIE [id number] Memoria 09:15:00 09:15:00 18 larry Goldsmith 2021-04-23 2021-04-23 Ambulatory nullFlavo MNA [id number] Memoria 16:30:00 16:30:00 Pre-Reg r Neurology 18 l Dolly Goldsmith 2021-04-23 2021-04-23 Outpatient ALEJA PalaciosSCHER MISCHER 911 [id number] 10:30:00 10:30:00 Felice 18 Naren 2021-04-17 2021-04-17 Outpatient TORRES [facility] [id number] [place] 00:00:00 00:00:00 IBIS [address] 2021-04-08 2021-04-08 [id number] [place] 00:00:00 00:00:00 IBIS [address] 2021-03-24 2021-03-25 Outpatient nullFlavo MNA [id number] Memoria 20:00:00 05:59:59 r Neurology 19 larry Goldsmith 2021-03-24 2021-03-24 Outpatient ALEJA PalaciosSCHER MISCHER [id number] 14:00:00 23:59:59 Felice 19 Naren 2021-03-24 2021-03-24 Outpatient MHIE MHIE [id number] Memoria 14:00:00 14:00:00 19 larry Goldsmith 2021-03-19 2021-03-20 Outpatient nullFlavo MNA [id number] Memoria 19:15:00 05:59:59 r Neurology 17 l Dolly Goldsmith 2021-03-19 2021-03-19 Outpatient JOSELUIS PalaciosMISCHER MHMISCHER [id number] 13:15:00 23:59:59 Felice 17 Naren 2021-03-19 2021-03-19 Outpatient MHIE MHIE [id number] Memoria 13:15:00 13:15:00 17 larry Goldsmith 2020-12-11 2020-12-12 Outpatient nullFlavo MNA [id number] Memoria 15:45:00 04:59:59 r Neurology 15 larry Goldsmith 2020-12-11 2020-12-11 [facility] [id number] 10:45:00 23:59:59 Felice 15 Naren 2020-12-11 2020-12-11 Outpatient MHIE MHIE [id number] Memoria 10:45:00 10:45:00 15 larry Goldsmith 2020-08-07 2020-08-08 Outpatient nullFlavo MNA [id number] Memoria 19:00:00 04:59:59 r Neurology 13 larry Goldsmith 2020-08-07 2020-08-07 [facility] [id number] 14:00:00 23:59:59 Felice 13 Naren 2020-08-07 2020-08-07 Outpatient MHIE MHIE [id number] Memoria 14:00:00 14:00:00 13 larry Goldsmith 2020-07-05 2020-07-06 Outpatient nullFlavo MNA [id number] Memoria 17:45:00 05:59:59 r Neurology 14 larry Cummingsann 2020-07-05 2020-07-05 Outpatient [facility] [id number] 11:45:00 23:59:59 Felice 14 Naren 2020-07-05 2020-07-05 Outpatient MHIE MHIE [id number] Memoria 11:45:00 11:45:00 14 larry Goldsmith 2020-06-28 2020-06-29 Outpatient nullFlavo MNA [id number] Memoria 15:30:00 05:59:59 r Neurology 12 larry Cummingsann 2020-06-28 2020-06-28 Outpatient ALEJA PalaciosSCHER [facility] [id number] 09:30:00 23:59:59 Felice 12 Naren 2020-06-28 2020-06-28 Outpatient MHIE MHIE [id number] Memoria 09:30:00 09:30:00 12 larry Goldsmith 2020-06-10 2020-06-15 Inpatient RAUDEL ROGER [facility] [id number] [place] 00:00:00 00:00:[address] 2020-06-10 2020-06-10 Outpatient ANIVAL [facility] [id number] [place] 00:00:00 00:00:00 RAFFI [address] 2020-06-10 2020-06-10 Outpatient ANIVAL [facility] [id number] [place] 00:00:00 00:00:00 RAFFI [address] 2020-06-10 2020-06-10 Outpatient ANIVAL [facility] [id number] [place] 00:00:00 00:00:00 RAFFI [address] 2020-06-10 2020-06-10 Outpatient ANIVAL [facility] [id number] [place] 00:00:00 00:00:00 RAFFI 876 [facility] i 2020-05-27 2020-05-27 Ambulatory nullFlavo [facility] [id number] Memoria 15:45:00 15:45:00 Pre-Reg r Neurology 11 l [place] Agus 2020-05-27 2020-05-27 Outpatient MHIE IE [id number] Memoria 09:45:00 09:45:00 11 l Agus 2020-05-27 2020-05-27 Outpatient Suzanne MISCHER [facility] [id number] 09:45:00 09:45:00 Felice 11 Naren 2020-05-23 2020-05-23 Outpatient FLORIAN [facility] [id number] [place] 00:00:00 00:00:00 RAFFI [address] 2020-05-23 2020-05-23 Outpatient FLORIAN [facility] [id number] [place] 00:00:00 00:00:00 RAFFI 958 Method i 2019-10-31 2019-10-31 Observatio nullFlavo [facility] [id number] Memoria 07:06:00 21:58:00 talita Goldsmith 81 [facility] 2019-10-31 2019-10-31 Outpatient Narayan [facility] [id number] 02:06:00 16:58:00 Yung Lerma 2019-10-19 2019-10-19 Outpatient FLORIAN, [facility] [id number] [place] 00:00:00 00:00:00 RAFFI [address] 2019-09-19 2019-09-22 Inpatient FLORIAN, [facility] [id number] [place] 00:00:00 00:00:00 RAFFI [address] 2019-09-11 2019-09-11 Outpatient FLORIAN, [facility] [id number] [place] 00:00:00 00:00:00 RAFFI [address] 2019-09-11 2019-09-11 Outpatient FLORIAN, [facility] [id number] [place] 00:00:00 00:00:00 RAFFI [address] 2019-09-06 2019-09-06 Outpatient FLORIAN, [facility] [id number] [place] 00:00:00 00:00:00 RAFFI [address] 2019-09-06 2019-09-06 Outpatient FLORIAN, [facility] [id number] [place] 00:00:00 00:00:00 RAFFI [address] 2019-09-06 2019-09-06 Outpatient FLORIAN, [facility] [id number] [place] 00:00:00 00:00:00 RAFFI [address] 2019-08-14 2019-08-14 Outpatient FLORIAN, [facility] [id number] [place] 00:00:00 00:00:00 RAFFI [address] 2019-08-14 2019-08-14 Outpatient FLORIAN, [facility] [id number] [place] 00:00:00 00:00:00 RAFFI [address] 2019-08-14 2019-08-14 Outpatient FLORIAN, [facility] [id number] [place] 00:00:00 00:00:00 RAFFI [address] 2019-08-14 2019-08-14 Outpatient FLORIAN, [facility] [id number] [place] 00:00:00 00:00:00 RAFFI [address] 2019-08-14 2019-08-14 Outpatient FLORIAN, [facility] [id number] [place] 00:00:00 00:00:00 RAFFI [address] 2019-08-04 2019-08-04 Ambulatory nullFlavo [facility] [id number] Memoria 14:15:00 14:15:00 Pre-Reg r Neurology 10 l [place] Agus 2019-08-04 2019-08-04 Outpatient MHIE MHIE [id number] Memoria 09:15:00 09:15:00 10 l Agus 2019-08-04 2019-08-04 Outpatient Suzanne MHMISCHER [facility] [id number] 09:15:00 09:15:00 Felice 10 Naren 2019-07-28 2019-07-28 [facility] [id number] 17:09:16 23:59:00 GILA hester [facility] 2019-07-28 2019-07-28 [facility] [id number] 17:09:00 23:59:00 Encounter G[place] [id number] [place] [id number] [place] [id number] 2019-07-28 2019-07-28 Urgent Pob1, Acute [facility] [id number] 15:30:08 17:04:14 [facility] [id number] [place] [id number] Professio [id number] nal [address] 2019-07-04 2019-07-04 Outpatient TORRES [facility] [id number] [place] [address] 00:00:00 00:00:00 IBIS [address] 2019-05-05 2019-05-06 Outpatient nullFlavo MNA [id number] Memoria 17:45:00 05:59:59 r Neurology 09 l Dolly Goldsmith 2019-05-05 2019-05-05 Outpatient Suzanne MHMISCHER M[facility]ISCHER [id number] 11:45:00 23:59:59 Felice 09 Naren 2019-05-05 2019-05-05 Outpatient MHIE MHIE [id number] Memoria 11:45:00 11:45:00 09 larry Agus 2019-03-22 2019-03-23 Outpatient nullFlavo MNA [id number] Memoria 17:30:00 05:59:59 r Neurology 08 l Dolly Goldsmith 2019-03-22 2019-03-22 Outpatient Suzanne MHMISCHER [facility]ER [id number] 11:30:00 23:59:59 Felice 08 Naren 2019-03-22 2019-03-22 Outpatient MHIE MHIE [id number] Memoria 11:30:00 11:30:00 08 larry Goldsmith 2019-03-15 2019-03-16 Outpatient nullFlavo MNA [id number] Memoria 17:15:00 05:59:59 r Neurology 07 larry Alberto Conrad 2019-03-15 2019-03-15 [facility] [id number] 11:15:00 23:59:59 Felice 07 Naren 2019-03-15 2019-03-15 Outpatient MHIE MHIE [id number] Memoria 11:15:00 11:15:00 07 larry Conrad 2018-12-21 2018-12-22 Outpatient nullFlavo MNA [id number] Memoria 16:30:00 04:59:59 r Neurology 06 larry [place] Conrad 2018-12-21 2018-12-21 Outpatient Suzanne [facility] [id number] 11:30:00 23:59:59 Felice Lacey Antunez 2018-12-21 2018-12-21 Outpatient MHIE MHIE [id number] Memoria 11:30:00 11:30:00 06 larry Agus 2018-10-19 2018-10-20 Outpatient nullFlavo MNA [id number] Memoria 16:45:00 04:59:59 r Neurology 05 larry Alberto Agus 2018-10-19 2018-10-19 Outpatient ALEJA [facility]iosSCHSHIMA [facility] [id number] 11:45:00 23:59:59 Felice Shayna Antunez 2018-10-19 2018-10-19 Outpatient MHIE MHIE [id number] Memoria 11:45:00 11:45:00 05 larry Agus 2018-09-08 2018-09-09 Outpatient nullFlavo MNA [id number] Memoria 19:30:00 04:59:59 r Neurology 04 larry Alberto Agus 2018-09-08 2018-09-08 Outpatient ALEJA PalaciosSCHER [facility] [id number] 14:30:00 23:59:59 Felice Bertrand Antunez 2018-09-08 2018-09-08 Outpatient MHIE MHIE [id number] Memoria 14:30:00 14:30:00 04 l Conrad 2018-08-18 2018-08-20 Phone nullFlavo MNA [id number] Memoria 15:14:00 04:59:59 Message r Neurology 00 l [place] Conrad 2018-08-18 2018-08-19 Outpatient [facility] [id number] 10:14:00 23:59:59 00 2018-08-03 2018-08-03 Outpatient MHIE MHIE [id number] Memoria 15:00:00 15:00:00 03 l Conrad 2018-08-03 2018-08-03 Outpatient MHIE MHIE [id number] Memoria 15:00:00 15:00:00 00 [facility] 2018-07-15 2018-07-15 Outpatient MHIE MHIE [id number] Memoria 08:45:00 08:45:00 01 [facility] 2018-07-15 2018-07-15 Outpatient MHIE IE [id number] Memoria 08:15:00 08:15:00 02 larry Conrad 2017-05-06 2017-05-07 Emergency nullFlavo [facility] [id number] Memoria 18:16:00 04:13:00 r Conrad 04 l [facility] 2017-05-06 2017-05-06 Outpatient Linh, JOSELUISPL [facility] [id number] 12:16:00 22:13:00 Bryan Alfred 2013-01-20 2013-01-23 Inpatient nullFlavo [facility] [id number] Memoria 04:46:00 11:30:00 r Medical 03 l [facility] 2013-01-19 2013-01-19 RAULITO nullFlavo [facility] [id number] Memoria 08:37:00 16:23:00 r Medical 01 l [facility] 2013-01-16 2013-01-16 Outpatient nullFlavo [facility] [id number] Memoria 13:45:00 13:45:00 r Medical 00 l [facility] Results Test Description Test Time Test Comments Results Result Comments Source [facility]EMIA [facility]Y 2021-06-12 15:55:00 Test Item Value Reference Range Interpretation Comme nts Vitamin B12 Lvl (test code = Vitamin B12 Lvl) [phone] [facility]CxdiienDPGHLENHGN6088-47-83 15:55:00 Test Item Value Reference Range Interpretation Comments Sed Rate (test code = Sed Rate) 2 [facility]ARDB0507-37-22 15:55:00 Test Item Value Reference Range Interpretation Comments Primidone Lvl (test code = Primidone 4.2 5.0-12.0 Lvl) [facility] CenterOgblgpdABAISVBDDY5770-20-52 15:55:00 Test Item Value Reference Range Interpretation Comments Phenobarb Lvl (test code = Phenobarb no gt 15.0-40.0 Lvl) [facility] CenterPyjokpxNXPN-UbO-7 (COVID-19) RNA [Presence] in Respiratory specimen by DIPTI with probe symkksrpn2779-18-97 22:53:11 Test Item Value Reference Range Interpretation Comments SARS-CoV-2 (COVID-19) RNA Not detected Not-Detected [Presence] in Respiratory specimen by DIPTI with probe detection (test code = 34264-8) [facility]2020-06-30 20:36:00 Test Item Value Reference Range Interpretation Comments PT (test code = PT) 14.3 s 12.0-14.7 [facility] HospitalMvigfafMPVZEJDNSJ9479-75-46 20:36:00 Test Item Value Reference Range Interpretation Comments INR (test code = INR) 1.11 1 0.85-1.17 [facility] HospitalOvmtkfzNGAWTSIRNP0007-90-46 20:36:00 Test Item Value Reference Range Interpretation Comments PTT (test code = PTT) 94.8 s 22.9-35.8 [facility] HospitalImarrdjZRAPIVRUPE0501-17-28 14:58:00 Test Item Value Reference Range Interpretation Comments PT (test code = PT) 14.4 s 12.0-14.7 [facility] HospitalNshatoxMGKFCWZBKA9032-78-98 14:58:00 Test Item Value Reference Range Interpretation Comments INR (test code = INR) 1.11 1 0.85-1.17 [facility] HospitalPfcenrkSAETEYXLPU0265-72-71 14:58:00 Test Item Value Reference Range Interpretation Comments PTT (test code = PTT) 86.8 s 22.9-35.8 [facility] KFEVPQK1395-06-79 07:51:00 Test Item Value Reference Range Interpretation Comments ABO/Rh (test code = ABO/Rh) O POS [facility] [id number] 07:51:00 Test Item Value Reference Range Interpretation Comments Antibody Scrn (test Negative (10/31/19 2:51 code = Antibody Scrn) AM) [place] 189140-06-30 07:51:00 Test Item Value Reference Range Interpretation Comments Glucose Lvl (test code = Glucose Lvl) 91 70-99 [place] 189140-06-30 07:51:00 Test Item Value Reference Range Interpretation Comments BUN (test code = BUN) 13 7-22 [place] 189140-06-30 07:51:00 Test Item Value Reference Range Interpretation Comments Creatinine Lvl (test code = Creatinine 0.70 0.50-1.40 Lvl) [place] 189140-06-30 07:51:00 Test Item Value Reference Range Interpretation Comments Sodium Lvl (test code = Sodium Lvl) 142 135-145 [place] 189140-06-30 07:51:00 Test Item Value Reference Range Interpretation Comments Potassium Lvl (test code = Potassium 4.0 3.5-5.1 Lvl) [facility]2020-06-30 07:51:00 Test Item Value Reference Range Interpretation Comments Chloride Lvl (test code = Chloride Lvl) 108 95-109 [place] 189140-06-30 07:51:00 Test Item Value Reference Range Interpretation Comments CO2 (test code = CO2) 24 24-32 [place] 189140-06-30 07:51:00 Test Item Value Reference Range Interpretation Comments Calcium Lvl (test code = Calcium Lvl) 8.5 8.5-10.5 [place] 189140-06-30 07:51:00 Test Item Value Reference Range Interpretation Comments Total Protein (test code = Total 6.6 6.4-8.4 Protein) [place] 189140-06-30 07:51:00 Test Item Value Reference Range Interpretation Comments Albumin Lvl (test code = Albumin Lvl) 3.0 3.5-5.0 [place] 189140-06-30 07:51:00 Test Item Value Reference Range Interpretation Comments ALT (test code = ALT) 16 <=65 [place] 189140-06-30 07:51:00 Test Item Value Reference Range Interpretation Comments AST (test code = AST) 20 <=37 [facility]2020-06-30 07:51:00 Test Item Value Reference Range Interpretation Comments Alk Phos (test code = Alk Phos) 102 39-136 [facility]2020-06-30 07:51:00 Test Item Value Reference Range Interpretation Comments Bili Total (test code = Bili Total) 0.4 0.2-1.3 [place] 189140-06-30 07:51:00 Test Item Value Reference Range Interpretation Comments AGAP (test code = AGAP) 14.0 10.0-20.0 [facility]CH[facility].[place] 96008JQKPI9615-78-89 07:51:00 Test Item Value Reference Range Interpretation Comments B/C Ratio (test code = B/C Ratio) 19 1 6-25 [place] 189140-06-30 07:51:00 Test Item Value Reference Range Interpretation Comments Globulin (test code = Globulin) 3.6 2.7-4.2 [place] 189140-06-30 07:51:00 Test Item Value Reference Range Interpretation Comments A/G Ratio (test code = A/G Ratio) 0.8 1 0.7-1.6 [place] 189140-06-30 07:51:00 Test Item Value Reference Range Interpretation Comments eGFR (test code = eGFR) 91 [facility] HospitalCzbopyyITQIYSMVOH8147-02-04 07:51:00 Test Item Value Reference Range Interpretation Comments WBC (test code = WBC) 8.0 3.7-10.4 [place] 545830-06-30 07:51:00 Test Item Value Reference Range Interpretation Comments RBC (test code = RBC) 3.97 4.20-5.40 [place] 545830-06-30 07:51:00 Test Item Value Reference Range Interpretation Comments Hgb (test code = Hgb) 12.5 12.0-16.0 [place] 16332-06-30 07:51:00 Test Item Value Reference Range Interpretation Comments Hct (test code = Hct) 37.6 36.0-48.0 [place] 16332-06-30 07:51:00 Test Item Value Reference Range Interpretation Comments MCV (test code = MCV) 94.8 80.0-98.0 [place] 16332-06-30 07:51:00 Test Item Value Reference Range Interpretation Comments MCH (test code = MCH) 31.4 pg 27.0-31.0 [facility] HospitalNtfdinvKFPTRVMMCP5861-87-94 07:51:00 Test Item Value Reference Range Interpretation Comments MCHC (test code = MCHC) 33.1 32.0-36.0 [facility] HospitalLqicdcyIZRLBYUYYF5545-69-20 07:51:00 Test Item Value Reference Range Interpretation Comments RDW (test code = RDW) 13.0 11.5-14.5 [facility] HospitalHgzjhxlJSHHSXPCNA3232-06-94 07:51:00 Test Item Value Reference Range Interpretation Comments Platelet (test code = Platelet) 229 133-450 [facility] HospitalEqdnkvdLLFJSPOTOD7230-06-02 07:51:00 Test Item Value Reference Range Interpretation Comments MPV (test code = MPV) 8.8 7.4-10.4 [place] 545830-06-30 07:51:00 Test Item Value Reference Range Interpretation Comments PT (test code = PT) 14.2 s 12.0-14.7 [facility] HospitalRqremnwMSMKJWCNZW4302-31-89 07:51:00 Test Item Value Reference Range Interpretation Comments INR (test code = INR) 1.10 1 0.85-1.17 [facility] HospitalZfbxszdEWAKKCAJHC0106-12-59 07:51:00 Test Item Value Reference Range Interpretation Comments PTT (test code = PTT) 64.7 s 22.9-35.8 [facility] HospitalXvouznrOWZEHALEVY3852-84-38 07:51:00 Test Item Value Reference Range Interpretation Comments Segs (test code = Segs) 63.4 45.0-75.0 [facility] HospitalGwwzxrtKTCNVQZBRF5551-15-48 07:51:00 Test Item Value Reference Range Interpretation Comments Lymphocytes (test code = Lymphocytes) 26.0 20.0-40.0 [place] 545830-06-30 07:51:00 Test Item Value Reference Range Interpretation Comments Monocytes (test code = Monocytes) 8.5 2.0-12.0 [facility] HospitalLitutwcZEGLNMWDCY7249-82-93 07:51:00 Test Item Value Reference Range Interpretation Comments Eosinophils (test code = Eosinophils) 1.6 <=4.0 [facility] HospitalCxfivtdXWGTLKTJYC3733-71-72 07:51:00 Test Item Value Reference Range Interpretation Comments Basophils (test code = Basophils) 0.5 <=1.0 [facility] HospitalOfqmhijFIDBWXHCJC0715-38-88 07:51:00 Test Item Value Reference Range Interpretation Comments Neutrophils # (test code = Neutrophils 5.1 1.5-8.1 #) [facility] HospitalXjgewjfIHTBVPNJEH8521-58-66 07:51:00 Test Item Value Reference Range Interpretation Comments Lymphocytes # (test code = Lymphocytes 2.1 1.0-5.5 #) [facility] HospitalBgayfxgJTNJSSKWVT7295-24-24 07:51:00 Test Item Value Reference Range Interpretation Comments Monocytes # (test code = Monocytes #) 0.7 <=0.8 [facility] HospitalJtvhkmjQGCGUMVYXW1479-10-60 07:51:00 Test Item Value Reference Range Interpretation Comments Eosinophils # (test code = Eosinophils 0.1 <=0.5 #) [facility] HospitalRjyftwpXLDUVWABMV6677-70-08 18:52:00 Test Item Value Reference Range Interpretation Comments Sed Rate (test code = Sed Rate) 2 [facility] HospitalScmeausFFPCSRNXIQ7962-35-32 18:52:00 Test Item Value Reference Range Interpretation Comments SS-A (Ro) Ab (test code = SS-A (Ro) <1.0 NEG Ab) [facility] HospitalZwixzafMAGFHRPMFC1659-52-55 18:52:00 Test Item Value Reference Range Interpretation Comments SS-B (La) Ab (test code = SS-B (La) <1.0 NEG Ab) [facility] HospitalEuowfjgEVDMLTWHBT9175-58-14 18:52:00 Test Item Value Reference Range Interpretation Comments Varicella IgG (test code = Varicella 775.20 IgG) [facility] HospitalZethvwtWBQDEVRAAI2514-67-73 18:52:00 Test Item Value Reference Range Interpretation Comments EBV VCA IgM (test code = EBV VCA IgM) 62.60 [facility] HospitalGojjfijAZUZPQMQYV7987-32-05 18:52:00 Test Item Value Reference Range Interpretation Comments ANGIOTENSIN CONVERTING ENZYME (test 9 9 code = ANGIOTENSIN CONVERTING ENZYME) [facility] HospitalKgesyxcKWJBRXGUVC0728-57-28 18:52:00 Test Item Value Reference Range Interpretation Comments Varicella IgM (test code = Varicella 0.69 1 IgM) [facility]2018-01-04 21:21:00 Test Item Value Reference Range Interpretation Comments UA Blood (test code = Negative (05/06/17 3:21 UA Blood) PM) [facility]2018-01-04 21:21:00 Test Item Value Reference Range Interpretation Comments UA Nitrite (test code Negative (05/06/17 3:21 = UA Nitrite) PM) [facility] [id number] 21:21:00 Test Item Value Reference Range Interpretation Comments UA Bili (test code = Negative *NA*(05/06/17 UA Bili) 3:21 PM) [facility] [id number] 21:21:00 Test Item Value Reference Range Interpretation Comments UA Leuk Est (test Negative (05/06/17 3:21 code = UA Leuk Est) PM) [facility] [id number] 21:21:00 Test Item Value Reference Range Interpretation Comments UA Sq Epi (test code = UA Sq Epi) Few /LPF [facility] [id number] 21:21:00 Test Item Value Reference Range Interpretation Comments UA Protein (test code = UA Protein) 30 mg/dL [facility] [id number] 21:21:00 Test Item Value Reference Range Interpretation Comments UA Ketones (test code = UA Ketones) 20 mg/dL [facility] [id number] 21:21:00 Test Item Value Reference Range Interpretation Comments UA Glucose (test code = UA Negative mg/dL Glucose) [facility] [id number] 21:21:00 Test Item Value Reference Range Interpretation Comments UA Urobilinogen (test code = UA <=1.0 mg/dL 0.1-1.0 Urobilinogen) [facility] [id number] 21:21:00 Test Item Value Reference Range Interpretation Comments UA RBC (test code = UA RBC) 1 <=2 [facility] [id number] 21:21:00 Test Item Value Reference Range Interpretation Comments UA Mucus (test code = UA Mucus) Few /LPF [facility] [id number] 21:21:00 Test Item Value Reference Range Interpretation Comments UA WBC (test code = UA WBC) 2 <=5 [facility] [id number] 21:21:00 Test Item Value Reference Range Interpretation Comments UA Color (test code = Yellow *NA*(05/06/17 3:21 UA Color) PM) [facility] [id number] 21:21:00 Test Item Value Reference Range Interpretation Comments UA Spec Grav (test code = UA Spec Grav) 1.019 [facility] [id number] 21:21:00 Test Item Value Reference Range Interpretation Comments UA pH (test code = UA pH) 5.0 5.0-8.0 [facility] [id number] 21:21:00 Test Item Value Reference Range Interpretation Comments UA Turbidity (test code Slight *ABN*(05/06/17 = UA Turbidity) 3:21 PM) [facility] Resources[facility]ocket[facility] [id number] 20:57:00 Test Item Value Reference Range Interpretation Comments Lipase Lvl (test code = Lipase Lvl) 166 73-393 [facility]2018-01-04 20:57:00 Test Item Value Reference Range Interpretation Comments Amylase Lvl (test code = Amylase Lvl) 42 25-115 [facility]DnwpbwcXFZLNQXFKEQL4345-22-55 20:57:00 Test Item Value Reference Range Interpretation Comments Chloride Lvl (test code = Chloride Lvl) 100 95-109 [facility] HospitalYniuvipARWWGXVOJCWE7435-62-41 20:57:00 Test Item Value Reference Range Interpretation Comments Sodium Lvl (test code = Sodium Lvl) 139 135-145 [facility] HospitalTeflovtLODDCCOHERAG4775-93-21 20:57:00 Test Item Value Reference Range Interpretation Comments Potassium Lvl (test code = Potassium 4.0 3.5-5.1 Lvl) [facility] HospitalKnwhqonAADWRABGINSY2634-33-13 20:57:00 Test Item Value Reference Range Interpretation Comments eGFR (test code = eGFR) 41 [facility] HospitalZpvkxmzYPJUVLCEADZV3957-00-20 20:57:00 Test Item Value Reference Range Interpretation Comments Bili Total (test code = Bili Total) 0.7 0.2-1.3 [facility] HospitalMeegadmLHZJNSGYTVZY0944-68-05 20:57:00 Test Item Value Reference Range Interpretation Comments Alk Phos (test code = Alk Phos) 82 39-136 [facility] HospitalYvlinmbEOMFASHIMNWQ0691-24-41 20:57:00 Test Item Value Reference Range Interpretation Comments A/G Ratio (test code = A/G Ratio) 1.0 0.7-1.6 [facility] HospitalVuukkxmQYYUGBRSKINZ7314-47-33 20:57:00 Test Item Value Reference Range Interpretation Comments ALT (test code = ALT) 19 <=65 [facility] HospitalBxnvtkaROHURPEZOWLS2707-99-96 20:57:00 Test Item Value Reference Range Interpretation Comments AST (test code = AST) 15 <=37 [facility] HospitalQppchheENHKBNMEFJLF9003-39-72 20:57:00 Test Item Value Reference Range Interpretation Comments Globulin (test code = Globulin) 4.1 2.7-4.2 [facility] HospitalVotoqsrWVOEMJDVPMIF4748-91-86 20:57:00 Test Item Value Reference Range Interpretation Comments Albumin Lvl (test code = Albumin Lvl) 4.3 3.5-5.0 [facility] HospitalUqklglgXXFDQATAKEPZ6474-56-25 20:57:00 Test Item Value Reference Range Interpretation Comments B/C Ratio (test code = B/C Ratio) 18 6-25 [facility] HospitalZtrkuclYDXSDHILWTQD3311-87-83 20:57:00 Test Item Value Reference Range Interpretation Comments Calcium Lvl (test code = Calcium Lvl) 9.4 8.5-10.5 [facility] HospitalQbxtsooNUHNURVHRKKG5434-02-86 20:57:00 Test Item Value Reference Range Interpretation Comments Total Protein (test code = Total 8.4 6.4-8.4 Protein) [facility] [facility]HklosklJPVYJRRBEUVO7742-54-73 20:57:00 Test Item Value Reference Range Interpretation Comments CO2 (test code = CO2) 27 24-32 [facility]PjgpkfzAQGICUXFJLEU8800-27-60 20:57:00 Test Item Value Reference Range Interpretation Comments AGAP (test code = AGAP) 16.0 10.0-20.0 [facility]PkfbymgMZSACNEAFLYT5729-22-62 20:57:00 Test Item Value Reference Range Interpretation Comments Creatinine Lvl (test code = Creatinine 1.36 0.50-1.40 Lvl) [facility]UlefpntRZGVFNONCQOZ4734-37-08 20:57:00 Test Item Value Reference Range Interpretation Comments BUN (test code = BUN) 24 7-22 [facility] HospitalVsawarxBZLJVACZTXNJ3652-11-98 20:57:00 Test Item Value Reference Range Interpretation Comments Glucose Lvl (test code = Glucose Lvl) 77 70-99 [facility]FibfjcaAVUOFEKRLC0134-46-89 20:57:00 Test Item Value Reference Range Interpretation Comments Lymphocytes # (test code = Lymphocytes 2.3 1.0-5.5 #) [facility] HospitalYrhlpaiJTQZXETEFF7051-03-78 20:57:00 Test Item Value Reference Range Interpretation Comments Monocytes # (test code = Monocytes #) 0.8 <=0.8 [facility] HospitalCjyepgpKCOPMGDTQH0732-54-57 20:57:00 Test Item Value Reference Range Interpretation Comments Eosinophils (test code = Eosinophils) 0.2 <=4.0 [facility] HospitalSbnuzkqMACRYIIQTI3446-78-13 20:57:00 Test Item Value Reference Range Interpretation Comments Basophils (test code = Basophils) 0.4 <=1.0 [facility] HospitalZaceojqUZZQIQKZYR3756-96-74 20:57:00 Test Item Value Reference Range Interpretation Comments Segs-Bands # (test code = Segs-Bands #) 6.4 1.5-8.1 [facility] HospitalWqlunptKOXGZGTZNR2215-77-08 20:57:00 Test Item Value Reference Range Interpretation Comments Lymphocytes (test code = Lymphocytes) 24.4 20.0-40.0 [facility] HospitalVewwwsvPQYATBWRTD6858-32-92 20:57:00 Test Item Value Reference Range Interpretation Comments Monocytes (test code = Monocytes) 8.1 2.0-12.0 [facility] HospitalRjhrmdsNTQTGAUTLG6146-95-90 20:57:00 Test Item Value Reference Range Interpretation Comments Segs (test code = Segs) 66.9 45.0-75.0 [facility] HospitalHdkfkgtYKZFXLSJFC4374-65-29 20:57:00 Test Item Value Reference Range Interpretation Comments MPV (test code = MPV) 8.4 7.4-10.4 [facility] HospitalOkakjhfRJSVAATEFL6968-13-89 20:57:00 Test Item Value Reference Range Interpretation Comments Platelet (test code = Platelet) 287 133-450 [facility] HospitalLmquaykEMRMMPICUP1329-02-05 20:57:00 Test Item Value Reference Range Interpretation Comments MCH (test code = MCH) 32.4 pg 27.0-31.0 [facility] HospitalCmcqvhvOQXWTNXLBI6659-72-96 20:57:00 Test Item Value Reference Range Interpretation Comments RDW (test code = RDW) 12.5 11.5-14.5 [facility] HospitalEwfbvvqAAHVCDNZDQ9837-75-82 20:57:00 Test Item Value Reference Range Interpretation Comments MCV (test code = MCV) 91.5 80.0-98.0 [facility] HospitalVkhqfxsNWUCUXYZJX7829-36-56 20:57:00 Test Item Value Reference Range Interpretation Comments MCHC (test code = MCHC) 35.4 32.0-36.0 [facility] HospitalDzxcialWPZYCVPSJY9813-21-48 20:57:00 Test Item Value Reference Range Interpretation Comments Hct (test code = Hct) 42.5 36.0-48.0 [facility] HospitalMdcihlmHCEXUQBLSZ5162-88-08 20:57:00 Test Item Value Reference Range Interpretation Comments WBC (test code = WBC) 9.6 3.7-10.4 [facility] HospitalItvfqaySXOYZUYVOB0513-45-43 20:57:00 Test Item Value Reference Range Interpretation Comments Hgb (test code = Hgb) 15.1 12.0-16.0 [facility] HospitalEeqqzoeTPSYQZCATM6476-68-02 20:57:00 Test Item Value Reference Range Interpretation Comments RBC (test code = RBC) 4.65 4.20-5.40 [facility] CenterCfugqniUUVKDKPFZ7511-50-01 05:00:00 Test Item Value Reference Range Interpretation Comments eGFR (test code = eGFR) 95 [facility] CenterFzohufaFHXVXLFWQ1005-82-72 05:00:00 Test Item Value Reference Range Interpretation Comments AGAP (test code = AGAP) 12.9 10.0-20.0 N [facility] CenterBjopweqTYTFJHCCH7005-31-82 05:00:00 Test Item Value Reference Range Interpretation Comments Calcium Lvl (test code = Calcium Lvl) 8.5 8.5-10.5 N [facility] CenterTpmgowuEACTDDZBX2946-50-53 05:00:00 Test Item Value Reference Range Interpretation Comments Glucose Lvl (test code = Glucose Lvl) 75 70-99 N [facility] CenterAzefkczQJRSMIDOT4839-33-46 05:00:00 Test Item Value Reference Range Interpretation Comments CO2 (test code = CO2) 28 24-32 N [facility] CenterMkijtynOIFRJHMLY2637-30-39 05:00:00 Test Item Value Reference Range Interpretation Comments Chloride Lvl (test code = Chloride Lvl) 106 95-109 N [facility] CenterCbryqfoALHAFQKRB7915-50-42 05:00:00 Test Item Value Reference Range Interpretation Comments Potassium Lvl (test code = Potassium 3.9 3.5-5.1 N Lvl) [facility] CenterBbmklrdPQOHMZENR2962-20-62 05:00:00 Test Item Value Reference Range Interpretation Comments BUN (test code = BUN) 5 7-22 L [facility] CenterTxaqpiaDWXWNQRPM8660-99-35 05:00:00 Test Item Value Reference Range Interpretation Comments Creatinine Lvl (test code = Creatinine 0.7 0.5-1.4 N Lvl) [facility] CenterUnyrxgaWZZGPAHHB9245-13-81 05:00:00 Test Item Value Reference Range Interpretation Comments Sodium Lvl (test code = Sodium Lvl) 143 135-145 N [facility] HospitalBhoqcbeMPWYNXLOCE7967-07-14 05:00:00 Test Item Value Reference Range Interpretation Comments MPV (test code = MPV) 8.4 7.4-10.4 N [facility] HospitalXzuvdtgCYRHBPMYGW0871-86-14 05:00:00 Test Item Value Reference Range Interpretation Comments RBC (test code = RBC) 3.95 4.20-5.40 L [facility] HospitalXzfgrizXJIEIDRESJ3328-47-21 05:00:00 Test Item Value Reference Range Interpretation Comments WBC (test code = WBC) 5.7 3.7-10.4 N [facility] HospitalLjovkgvOSMCCILVWG8399-23-08 05:00:00 Test Item Value Reference Range Interpretation Comments MCH (test code = MCH) 33.0 pg 27.0-31.0 H [facility] HospitalXvvlzvyUFYIVHBFCJ2873-82-98 05:00:00 Test Item Value Reference Range Interpretation Comments Hct (test code = Hct) 37.4 36.0-48.0 N [facility] HospitalFfuyfwzVUCWUIJJDZ8195-41-76 05:00:00 Test Item Value Reference Range Interpretation Comments Hgb (test code = Hgb) 13.0 12.0-16.0 N [facility] HospitalFudtaabDXEWUBEDQV2313-49-72 05:00:00 Test Item Value Reference Range Interpretation Comments MCV (test code = MCV) 94.8 81.0-99.0 N [facility] HospitalZpygokzOLGVQZXLQW2475-25-61 05:00:00 Test Item Value Reference Range Interpretation Comments RDW (test code = RDW) 12.6 11.5-14.5 N [facility] HospitalDtbjltfXZIETFNYEM8770-93-16 05:00:00 Test Item Value Reference Range Interpretation Comments MCHC (test code = MCHC) 34.8 32.0-36.0 N [facility] HospitalBhzmrlmSAWHFNERVN0086-99-69 05:00:00 Test Item Value Reference Range Interpretation Comments Platelet (test code = Platelet) 203 133-450 N [facility] HospitalWalymluKVMWWTSCMD1255-62-32 05:00:00 Test Item Value Reference Range Interpretation Comments Segs (test code = Segs) 50.9 45.0-75.0 N [facility] HospitalAnedulgVOHGMVPNWB2749-55-35 05:00:00 Test Item Value Reference Range Interpretation Comments Lymphocytes (test code = Lymphocytes) 36.5 20.0-40.0 N [facility] HospitalBsdxlimVSIRLUIYNQ6120-63-29 05:00:00 Test Item Value Reference Range Interpretation Comments Monocytes (test code = Monocytes) 10.0 2.0-12.0 N [facility] HospitalKgrlukbGOFPIROTMY6205-08-00 05:00:00 Test Item Value Reference Range Interpretation Comments Monocytes # (test code = Monocytes #) 0.6 <=0.8 N [facility] HospitalNkzwzbiWBLWTJZWUU7658-21-98 05:00:00 Test Item Value Reference Range Interpretation Comments Eosinophils # (test code = Eosinophils 0.1 <=0.5 N #) [facility] HospitalBbmpoonXALVGDVITP6917-45-91 05:00:00 Test Item Value Reference Range Interpretation Comments Segs-Bands # (test code = Segs-Bands #) 2.9 1.5-8.1 N [facility] HospitalBlyralnLGXUPZFWHI7936-42-35 05:00:00 Test Item Value Reference Range Interpretation Comments Lymphocytes # (test code = Lymphocytes 2.1 1.0-5.5 N #) [facility] HospitalNvckaraMLYSZAMERG8161-54-79 05:00:00 Test Item Value Reference Range Interpretation Comments Eosinophils (test code = Eosinophils) 2.2 <=4.0 N [facility] HospitalHxrvhqfXVTIHMFGMX9224-70-00 05:00:00 Test Item Value Reference Range Interpretation Comments Basophils (test code = Basophils) 0.4 <=1.0 N [facility] CenterLrqmeeuUZXGNZLCS4897-74-71 08:45:00 Test Item Value Reference Range Interpretation Comments Lipase Lvl (test code = Lipase Lvl) 109 73-393 N [facility] CenterJvjadreUJWLMAYLM7407-85-23 08:45:00 Test Item Value Reference Range Interpretation Comments Globulin (test code = Globulin) 3.1 2.0-4.0 N [facility] CenterAfnmecfDIFPPTQKT6881-98-99 08:45:00 Test Item Value Reference Range Interpretation Comments A/G Ratio (test code = A/G Ratio) 1.0 0.7-1.6 N [facility] CenterBwwtbelSIUGJKPDT0646-65-74 08:45:00 Test Item Value Reference Range Interpretation Comments B/C Ratio (test code = B/C Ratio) 4 6-25 L [facility] CenterIyoyhyoZCAWZWBSH7075-79-82 08:45:00 Test Item Value Reference Range Interpretation Comments AGAP (test code = AGAP) 11.9 10.0-20.0 N [facility] CenterGmuhljvECFJIRFPX4039-45-81 08:45:00 Test Item Value Reference Range Interpretation Comments eGFR (test code = eGFR) 95 [facility] CenterJocqatjWZXFPZYYE5209-42-11 08:45:00 Test Item Value Reference Range Interpretation Comments AST (test code = AST) 16 <=37 N [facility] CenterRoqrzwtVERMYNTYK9933-55-01 08:45:00 Test Item Value Reference Range Interpretation Comments CO2 (test code = CO2) 26 24-32 N [facility] CenterJamyvcnBAIAOMPOE3065-37-08 08:45:00 Test Item Value Reference Range Interpretation Comments Calcium Lvl (test code = Calcium Lvl) 8.0 8.5-10.5 L [facility] CenterEdvgwjwJSYJTUADK6555-02-70 08:45:00 Test Item Value Reference Range Interpretation Comments Total Protein (test code = Total 6.1 6.4-8.4 L Protein) [facility] CenterGaxgsbhNGPAMRGMJ5753-79-24 08:45:00 Test Item Value Reference Range Interpretation Comments Bili Total (test code = Bili Total) 0.5 0.2-1.3 N [facility] CenterLqbqrzpXYOMWKWUH4585-91-54 08:45:00 Test Item Value Reference Range Interpretation Comments Creatinine Lvl (test code = Creatinine 0.7 0.5-1.4 N Lvl) [facility] CenterNkbyskgYKVYGSZRQ8141-15-74 08:45:00 Test Item Value Reference Range Interpretation Comments Sodium Lvl (test code = Sodium Lvl) 140 135-145 N [facility] CenterCzextyfBNUCZPMBI7317-64-37 08:45:00 Test Item Value Reference Range Interpretation Comments Chloride Lvl (test code = Chloride Lvl) 106 95-109 N [facility] CenterShgtfgiCPIOVSNQP5726-47-93 08:45:00 Test Item Value Reference Range Interpretation Comments Potassium Lvl (test code = Potassium 3.9 3.5-5.1 N Lvl) [facility] CenterMvhppaaFCIYHXUJY1697-41-70 08:45:00 Test Item Value Reference Range Interpretation Comments ALT (test code = ALT) 20 <=65 N [facility] CenterWtdfketIIUTZUZJI5656-75-37 08:45:00 Test Item Value Reference Range Interpretation Comments BUN (test code = BUN) 3 7-22 L [facility] CenterLhzvitlGXVJEKBZB1758-84-50 08:45:00 Test Item Value Reference Range Interpretation Comments Glucose Lvl (test code = Glucose Lvl) 115 70-99 H [facility] CenterBjbonaaHVFZFEJVB1957-14-46 08:45:00 Test Item Value Reference Range Interpretation Comments Alk Phos (test code = Alk Phos) 74 39-136 N [facility] CenterJeoxlwlDVYSPMMHE3472-54-30 08:45:00 Test Item Value Reference Range Interpretation Comments Albumin Lvl (test code = Albumin Lvl) 3.0 3.5-5.0 L [facility] HospitalIscotwgTRSURCBFBS7119-22-45 08:45:00 Test Item Value Reference Range Interpretation Comments Eosinophils # (test code = Eosinophils 0.1 <=0.5 N #) [facility] HospitalSyldzanSHSMVKAPMX1557-25-95 08:45:00 Test Item Value Reference Range Interpretation Comments Basophils (test code = Basophils) 0.3 <=1.0 N [facility] HospitalFuhesgiUKNAOTPKWM1961-75-93 08:45:00 Test Item Value Reference Range Interpretation Comments Segs-Bands # (test code = Segs-Bands #) 2.8 1.5-8.1 N [facility] HospitalDqhrxrmCIBHSLZYGK7547-27-84 08:45:00 Test Item Value Reference Range Interpretation Comments Lymphocytes # (test code = Lymphocytes 2.0 1.0-5.5 N #) [facility] HospitalZlddsaeNPLJFLNMEW3406-14-70 08:45:00 Test Item Value Reference Range Interpretation Comments Monocytes # (test code = Monocytes #) 0.6 <=0.8 N [facility] HospitalOzbnuvxRVWCLWXLRV5761-72-64 08:45:00 Test Item Value Reference Range Interpretation Comments Lymphocytes (test code = Lymphocytes) 35.5 20.0-40.0 N [facility] HospitalDehaenvRIUMOQTCYQ1748-28-77 08:45:00 Test Item Value Reference Range Interpretation Comments Monocytes (test code = Monocytes) 11.0 2.0-12.0 N [facility] HospitalPiurflzXYZDYRCCXN0575-82-90 08:45:00 Test Item Value Reference Range Interpretation Comments Eosinophils (test code = Eosinophils) 2.1 <=4.0 N [facility] HospitalAdgtxxcXUDECZSFVC1637-59-14 08:45:00 Test Item Value Reference Range Interpretation Comments Segs (test code = Segs) 51.1 45.0-75.0 N [facility] HospitalGwxqfvcKTJZORYCQI6647-59-80 08:45:00 Test Item Value Reference Range Interpretation Comments Sed Rate (test code = Sed Rate) 15 <=20 N [facility] HospitalBaaacrbXINSASMJVY1714-67-30 08:45:00 Test Item Value Reference Range Interpretation Comments MCHC (test code = MCHC) 34.6 32.0-36.0 N [facility] HospitalTbkztsgRZFLROELBM0188-01-90 08:45:00 Test Item Value Reference Range Interpretation Comments MCH (test code = MCH) 32.8 pg 27.0-31.0 H [facility] HospitalQruivbbMNFQKZUEXA7891-65-09 08:45:00 Test Item Value Reference Range Interpretation Comments RDW (test code = RDW) 12.3 11.5-14.5 N [facility] HospitalIwguwrhTETLLFSFDA2048-61-39 08:45:00 Test Item Value Reference Range Interpretation Comments MPV (test code = MPV) 8.2 7.4-10.4 N [facility] HospitalRuusjuhYUCRWDLVDL1857-09-42 08:45:00 Test Item Value Reference Range Interpretation Comments Platelet (test code = Platelet) 189 133-450 N [facility] HospitalLlakgszLGOLXIJQZP8398-77-62 08:45:00 Test Item Value Reference Range Interpretation Comments RBC (test code = RBC) 3.63 4.20-5.40 L [facility] HospitalJwgzdlkIUFPASCOWW9007-78-32 08:45:00 Test Item Value Reference Range Interpretation Comments WBC (test code = WBC) 5.5 3.7-10.4 N [facility] HospitalHmdfjxiGGSYRCBTJG2078-14-05 08:45:00 Test Item Value Reference Range Interpretation Comments Hgb (test code = Hgb) 11.9 12.0-16.0 L [facility] HospitalPfrctvuPPWJLZAIJN8620-33-41 08:45:00 Test Item Value Reference Range Interpretation Comments Hct (test code = Hct) 34.5 36.0-48.0 L [facility] HospitalFzcdewvTRWVNCPZDN9660-29-39 08:45:00 Test Item Value Reference Range Interpretation Comments MCV (test code = MCV) 94.9 81.0-99.0 N [facility] AHZDPFJ8748-34-58 08:45:00 Test Item Value Reference Range Interpretation Comments CA 19-9 (test code = CA 19-9) 7.0 <=35.0 N [facility] CenterDoklkkyLUHXDSHAI8753-43-92 16:51:55 Test Item Value Reference Range Interpretation Comments Lactic Acid Lvl (test code = Lactic 0.9 0.5-2.2 N Acid Lvl) [facility] CenterIlzbnlaYCSOORTMP7745-09-18 16:51:00 Test Item Value Reference Range Interpretation Comments eGFR (test code = eGFR) 95 [facility] CenterGdxkflgECURRIUKF0876-09-49 16:51:00 Test Item Value Reference Range Interpretation Comments Potassium Lvl (test code = Potassium 4.1 3.5-5.1 N Lvl) [facility] CenterAecnttjWOLJQUIXV9430-19-75 16:51:00 Test Item Value Reference Range Interpretation Comments Chloride Lvl (test code = Chloride Lvl) 107 95-109 N [facility] CenterXjpjnzfZCXBDGTTA5759-46-52 16:51:00 Test Item Value Reference Range Interpretation Comments Sodium Lvl (test code = Sodium Lvl) 140 135-145 N [facility] CenterQafykusBJGEGCHBB9684-94-18 16:51:00 Test Item Value Reference Range Interpretation Comments Glucose Lvl (test code = Glucose Lvl) 102 70-99 H [facility] CenterCybfkkaIIOALRCQU0640-84-94 16:51:00 Test Item Value Reference Range Interpretation Comments BUN (test code = BUN) 7 7-22 N [facility] CenterCfwdulqHTPMQUNIT3330-00-28 16:51:00 Test Item Value Reference Range Interpretation Comments CO2 (test code = CO2) 25 24-32 N [facility] CenterEdcskfxCTTCGQPID5399-70-59 16:51:00 Test Item Value Reference Range Interpretation Comments Calcium Lvl (test code = Calcium Lvl) 8.2 8.5-10.5 L [facility] CenterWenmmabRMKMFCIJX6159-57-44 16:51:00 Test Item Value Reference Range Interpretation Comments Creatinine Lvl (test code = Creatinine 0.7 0.5-1.4 N Lvl) [facility] CenterQinsftrMRDJFBGYH4210-55-12 16:51:00 Test Item Value Reference Range Interpretation Comments AGAP (test code = AGAP) 12.1 10.0-20.0 N [facility] CenterDxfgyldQFXHRRQLF6329-60-57 16:51:00 Test Item Value Reference Range Interpretation Comments Ketone Quantitative (test code = Ketone 1.38 H Quantitative) [facility] CenterZhjspccPRUSDBESL3593-43-04 07:55:00 Test Item Value Reference Range Interpretation Comments Magnesium Lvl (test code = Magnesium 1.8 1.8-2.4 N Lvl) [facility] CenterQzpykqkWNWKTMQQJ3642-70-78 07:55:00 Test Item Value Reference Range Interpretation Comments Lipase Lvl (test code = Lipase Lvl) 119 73-393 N [facility] CenterCpyrntcDTUTSQTLW5187-59-22 07:55:00 Test Item Value Reference Range Interpretation Comments Alk Phos (test code = Alk Phos) 66 39-136 N [facility] CenterZscihztSFLBMWIHC6736-13-80 07:55:00 Test Item Value Reference Range Interpretation Comments ALT (test code = ALT) 18 <=65 N [facility] CenterAttquwvJSQTKUQND8430-56-02 07:55:00 Test Item Value Reference Range Interpretation Comments Albumin Lvl (test code = Albumin Lvl) 2.9 3.5-5.0 L [facility] CenterOchoqexEBXEAZJPD1657-45-71 07:55:00 Test Item Value Reference Range Interpretation Comments AST (test code = AST) 24 <=37 N [facility] CenterIrotbmrWRMSJYSZA3906-92-89 07:55:00 Test Item Value Reference Range Interpretation Comments Bili Total (test code = Bili Total) 0.7 0.2-1.3 N [facility] CenterEulnqudSZLPAPCTV9614-80-86 07:55:00 Test Item Value Reference Range Interpretation Comments Total Protein (test code = Total 5.7 6.4-8.4 L Protein) [facility] CenterMhyjvrwHCPNEVZTI5084-77-04 07:55:00 Test Item Value Reference Range Interpretation Comments B/C Ratio (test code = B/C Ratio) 22 6-25 N [facility] CenterOpsvwyrENKJZXUNK9161-90-33 07:55:00 Test Item Value Reference Range Interpretation Comments A/G Ratio (test code = A/G Ratio) 1.0 0.7-1.6 N [facility] CenterXcecogtQIUAAYFLB0271-17-75 07:55:00 Test Item Value Reference Range Interpretation Comments Globulin (test code = Globulin) 2.8 2.0-4.0 N [facility] HospitalPhlhgzhLJHOKGJYDT0373-34-56 07:55:00 Test Item Value Reference Range Interpretation Comments Monocytes (test code = Monocytes) 8.6 2.0-12.0 N [facility] HospitalUpqqccgVPPXELRPXT7664-95-52 07:55:00 Test Item Value Reference Range Interpretation Comments Lymphocytes (test code = Lymphocytes) 23.8 20.0-40.0 N [facility] HospitalCjsworsAINQDUAMLD9887-81-04 07:55:00 Test Item Value Reference Range Interpretation Comments Eosinophils (test code = Eosinophils) 0.6 <=4.0 N [place] [address]-09-21 07:55:00 Test Item Value Reference Range Interpretation Comments Segs (test code = Segs) 66.4 45.0-75.0 N [facility] HospitalFcjumueXIZNCIUIGW9008-58-45 07:55:00 Test Item Value Reference Range Interpretation Comments Monocytes # (test code = Monocytes #) 0.8 <=0.8 N [facility] HospitalYnnkagiQUQIMJRZCF5585-42-42 07:55:00 Test Item Value Reference Range Interpretation Comments Lymphocytes # (test code = Lymphocytes 2.1 1.0-5.5 N #) [facility] HospitalNqehsfkXKORDLWQUQ5965-69-16 07:55:00 Test Item Value Reference Range Interpretation Comments Basophils (test code = Basophils) 0.6 <=1.0 N [facility] HospitalWwewsilAAYFGWMFPD1564-39-58 07:55:00 Test Item Value Reference Range Interpretation Comments Segs-Bands # (test code = Segs-Bands #) 5.9 1.5-8.1 N [facility] HospitalPkktsjwSYVMHMNBTB2888-48-91 07:55:00 Test Item Value Reference Range Interpretation Comments Eosinophils # (test code = Eosinophils 0.1 <=0.5 N #) [facility] HospitalUqjpmgwXDGJROLDWH4823-60-94 07:55:00 Test Item Value Reference Range Interpretation Comments Basophils # (test code = Basophils #) 0.1 <=0.2 N [facility] HospitalKclovrqYGOJZKXADA0204-14-69 07:55:00 Test Item Value Reference Range Interpretation Comments RDW (test code = RDW) 12.7 11.5-14.5 N [facility] HospitalYwdezwbLDVUHNBHSK4924-86-41 07:55:00 Test Item Value Reference Range Interpretation Comments MCHC (test code = MCHC) 34.1 32.0-36.0 N [facility] HospitalYjxojqcWXGDBNQAHY7208-23-84 07:55:00 Test Item Value Reference Range Interpretation Comments MCV (test code = MCV) 95.7 81.0-99.0 N [facility] HospitalSzbuavoVGFQNJSNSE4530-89-36 07:55:00 Test Item Value Reference Range Interpretation Comments Hgb (test code = Hgb) 11.5 12.0-16.0 L [facility] HospitalPvtsnjhAZUMMUOWRM3190-76-79 07:55:00 Test Item Value Reference Range Interpretation Comments Hct (test code = Hct) 33.6 36.0-48.0 L [facility] HospitalXfoymdvPVJJNFLSGQ6977-00-71 07:55:00 Test Item Value Reference Range Interpretation Comments MCH (test code = MCH) 32.6 pg 27.0-31.0 H [facility] HospitalDblnmyyQXKDIVKTPT4765-43-95 07:55:00 Test Item Value Reference Range Interpretation Comments MPV (test code = MPV) 8.5 7.4-10.4 N [facility] HospitalLxqhbseXCSKFQPJON8913-51-52 07:55:00 Test Item Value Reference Range Interpretation Comments Platelet (test code = Platelet) 168 133-450 N [facility] HospitalPghfxaxHXXJLCMDCB7403-56-04 07:55:00 Test Item Value Reference Range Interpretation Comments RBC (test code = RBC) 3.52 4.20-5.40 L [facility] HospitalXuoudmdKMETJSURLL5064-97-77 07:55:00 Test Item Value Reference Range Interpretation Comments WBC (test code = WBC) 8.9 3.7-10.4 N [facility]leKhoofgsRZRUWDFCOY4302-12-65 04:30:05 Test Item Value Reference Range Interpretation Comments Micro? (test code = Performed (01/19/2013 N Micro?) 23:30:05) [facility]leMbsgwwwGEIEPYFKAD4265-60-99 04:30:05 Test Item Value Reference Range Interpretation Comments UA WBC (test code = UA None Seen (01/19/2013 N WBC) 23:30:05) [facility]leNwfjbjzLXCNGCQNCY8603-47-41 04:30:05 Test Item Value Reference Range Interpretation Comments UA Sq Epi (test code = Few /LPF (01/19/2013 N UA Sq Epi) 23:30:05) [facility]leYtgkhvvXJQPJLSRPI0206-16-86 04:30:05 Test Item Value Reference Range Interpretation Comments UA RBC (test code = UA None Seen (01/19/2013 <=2 N RBC) 23:30:05) [facility]leBynzlucRUKNCNMVOB4049-34-61 04:30:05 Test Item Value Reference Range Interpretation Comments UA Blood (test code = Negative (01/19/2013 N UA Blood) 23:30:05) [id number] 04:30:05 Test Item Value Reference Range Interpretation Comments UA Urobilinogen (test code = UA 0.2 0.1-1.0 N Urobilinogen) [id number] 04:30:05 Test Item Value Reference Range Interpretation Comments UA Bili (test code = Negative *NA*(01/19/2013 UA Bili) 23:30:05) [id number] 04:30:05 Test Item Value Reference Range Interpretation Comments UA Nitrite (test code Negative (01/19/2013 N = UA Nitrite) 23:30:05) [facility][id number] 04:30:05 Test Item Value Reference Range Interpretation Comments UA Leuk Est (test Negative (01/19/2013 N code = UA Leuk Est) 23:30:05) [facility]leDaymqegWLZDXWKFAZ7654-15-28 04:30:05 Test Item Value Reference Range Interpretation Comments UA Glucose (test code Negative mg/dL N = UA Glucose) (01/19/2013 23:30:05) [id number] 04:30:05 Test Item Value Reference Range Interpretation Comments UA Ketones (test code Negative mg/dL = UA Ketones) *NA*(01/19/2013 23:30:05) [id number] 04:30:05 Test Item Value Reference Range Interpretation Comments UA pH (test code = UA pH) 8.0 1 5.0-8.0 N [id number] 04:30:05 Test Item Value Reference Range Interpretation Comments UA Protein (test code Negative mg/dL N = UA Protein) (01/19/2013 23:30:05) [id number] 04:30:05 Test Item Value Reference Range Interpretation Comments UA Turbidity (test code = Clear (01/19/2013 N UA Turbidity) 23:30:05) [facility]PgairobCAETTLGVDM9011-59-55 04:30:05 Test Item Value Reference Range Interpretation Comments UA Spec Grav (test code = UA Spec 1.015 1 N Grav) [facility]lePbxjrixGATSYAUBXN0986-07-32 04:30:05 Test Item Value Reference Range Interpretation Comments UA Color (test code = Yellow *NA*(01/19/2013 UA Color) 23:30:05) [facility]ipl[facility]dBLYQFYAMR4642-96-44 03:30:00 Test Item Value Reference Range Interpretation Comments Lipase Lvl (test code = Lipase Lvl) 345 73-393 N [facility] CenterMmhdiwwVRXCJRUHI3094-89-57 03:30:00 Test Item Value Reference Range Interpretation Comments Total Protein (test code = Total 7.3 6.4-8.4 N Protein) [facility] CenterEwkfjbqXMOQIQHHT7261-13-32 03:30:00 Test Item Value Reference Range Interpretation Comments Bili Total (test code = Bili Total) 0.5 0.2-1.3 N [facility] CenterFqyrxdaFCLLFJQUS3289-16-46 03:30:00 Test Item Value Reference Range Interpretation Comments Albumin Lvl (test code = Albumin Lvl) 3.8 3.5-5.0 N [facility] CenterJmmdfxmUXFHPQCPF3017-01-35 03:30:00 Test Item Value Reference Range Interpretation Comments ALT (test code = ALT) 30 <=65 N [facility] CenterElxjurdCDAOXKQVF9926-64-95 03:30:00 Test Item Value Reference Range Interpretation Comments Alk Phos (test code = Alk Phos) 81 39-136 N [facility] Cen[id number] 03:30:00 Test Item Value Reference Range Interpretation Comments Bili Direct (test code = Bili Direct) 0.1 <=0.3 N [facility] CenterGajigceTKOAGXIOS8123-96-41 03:30:00 Test Item Value Reference Range Interpretation Comments AST (test code = AST) 23 <=37 N [facility] CenterSwaeliaAOXEGLGBX2782-15-96 03:30:00 Test Item Value Reference Range Interpretation Comments Globulin (test code = Globulin) 3.5 2.0-4.0 N [facility] CenterSkloxyzRVPTFGKCC9850-61-19 03:30:00 Test Item Value Reference Range Interpretation Comments A/G Ratio (test code = A/G Ratio) 1.1 0.7-1.6 N [facility] CenterLvnfvhbNIRDPGWIM6212-68-92 03:30:00 Test Item Value Reference Range Interpretation Comments Bili Indirect (test code = Bili 0.4 <=1.0 N Indirect) [facility] Cent[id number] 03:30:00 Test Item Value Reference Range Interpretation Comments Basophils # (test code = Basophils #) 0.1 <=0.2 N [facility]
[2023-02-21] MEDS ORDERED: DIPHENHYDRAMINE 50 MG/ML VIAL ONE (14:12)
[2023-02-21] MEDS ORDERED: dexAMETHasone 10 MG/ML VIAL ONE (14:12)
[2023-02-21] MEDS ORDERED: PROMETHAZINE INJ 25 MG/ML AMP ONE (14:12)
[2023-02-21] MEDS ORDERED: KETOROLAC 30 MG/ML INJ ONE (14:12)
[2023-02-21] MEDS ORDERED: ACETAMIN/CAFFEINE/BUTALB TAB PO ONE (14:12)
[2023-02-21] MEDS ORDERED: NA CHLORIDE 0.9% 1,000 ML ONE (14:12)
[2023-02-21 14:25] LABS: Absolute Lymphocytes (CBC) 1.5 K/uL (0.7-4.9); Hematocrit 40.9 % (36.0-45.0); Lymphocytes % 24.2 % (15.3-44.8); MCV 95.9 fL (80-100); MPV 8.9 fL (7.6-11.3); Platelets 248 thou/uL (152-406); RBC Red Blood Cell Count 4.26 M/uL (3.86-4.86)
[2023-02-21 14:45] LABS: Magnesium 2.4 mg/dL (1.6-2.4)
--- NOTE | 2023-02-21 15:06 | RAD REPORT ---
EXAM DESCRIPTION: RAD - Chest Single View - 02/21/2023 2:53 pm CLINICAL HISTORY: CHEST PAIN COMPARISON: Chest Single View dated 05/16/2021; Chest Single View dated 05/06/2021; Chest Single View d ated 05/20/2020; Chest Single View dated 04/29/2020 FINDINGS: Lines: None. Lungs: No evidence of edema or pneumonia. Pleural: No significant pleural effusions or pneumothorax. Cardiac: The heart size is within normal limits. Mediastinum: Within normal limits. Bones: No acute fractures. ACDF in the cervical spine . Other: None IMPRESSION: No acute cardiopulmonary disease.
--- NOTE | 2023-02-21 15:46 | EDPHYS ---
Physician Documentation [facility] Name: Haley Porter Age: 67 yrs Sex: Female : 1955 Arrival Date: 02/21/2023 Time: 13:18 Bed 10 Private MD: Phillip Winn V ED Physician Jatin Greenberg HPI: 02/21 15:34 This 67 yrs old Female presents to ER via Ambulatory with complaints of Headache, Chest kb Pain. 15:34 The patient complains of pain to the top of head. The patient describes the headache as kb constant. Onset: The symptoms/episode began/occurred months ago. Associated signs and symptoms: Pertinent positives: chest pain. Severity of symptoms: At its worst the pain was moderate, severe, in the emergency department the pain is unchanged. Headache History: The patient has had previous headaches. The symptoms are alleviated by nothing. the symptoms are aggravated by nothing. The patient has experienced similar episodes in the past. The patient has been recently seen by a physician:. pt reports headache and chest pain for months. States she has been to the neurologist, her pcp and the er for this and has not found anything to make it better. CT scan was done during her last visit and was normal. Pt states the pain has not changed she just couldn't take the pain anymore today. Historical: - Allergies: 13:28 Valium; ll1 13:28 Versed; ll1 13:28 Singulair; ll1 13:28 Oral steroids; ll1 13:28 Morphine; ll1 13:28 Metoclopramide; ll1 - PMHx: 13:28 Migraine; Hypertension; PE; ll1 - PSHx: 13:28 back sx; ll1 - Immunization history:: Adult Immunizations up to date. - Social history:: Smoking status: Patient denies any tobacco usage or history of. ROS: 15:32 Constitutional: Negative for fever, chills, and weight loss, Eyes: Negative for injury, kb pain, redness, and discharge, ENT: Negative for injury, pain, and discharge, Respiratory: Negative for shortness of breath, cough, wheezing, and pleuritic chest pain, Abdomen/GI: Negative for abdominal pain, nausea, vomiting, diarrhea, and constipation, MS/Extremity: Negative for injury and deformity, Skin: Negative for injury, rash, and discoloration, 15:32 Cardiovascular: Positive for chest pain, Negative for edema, orthopnea, palpitations, paroxysmal nocturnal dyspnea, 15:32 Neuro: Positive for headache, Exam: 15:33 Head/Face: Normocephalic, atraumatic. ENT: Moist Mucous membranes Cardiovascular: kb Regular rate Respiratory: Respirations even and unlabored. No increased work of breathing. Talking in full sentences Abdomen/GI: Soft, non-tender. No distention Skin: Warm, dry with normal turgor. Normal color. MS/ Extremity: Pulses equal, no cyanosis. Neurovascular intact. Full, normal range of motion. Neuro: Awake and alert, GCS 15, oriented to person, place, time, and situation. Moves all extremities. Normal gait. 15:33 Constitutional: The patient appears alert, awake, in obvious pain, Vital Signs: 13:28 BP 135 / 103; Pulse 82; Resp 16; Temp 98.4; Pulse Ox 97% ; Weight 77.11 kg; Height 5 ll1 ft. 6 in. ; Pain 10/10; 16:22 BP 147 / 76; ap3 18:18 BP 144 / 75; ap3 13:28 Body Mass Index 27.44 (77.11 kg, 167.64 cm) ll1 13:28 Pain Scale: Adult ll1 [place] Coma Score: 15:37 Eye Response: spontaneous(4). Motor Response: obeys commands(6). Verbal Response: kb oriented(5). Total: 15. MDM: 13:26 Patient medically screened. kb 15:37 Differential diagnosis: cluster headache, migraine, tension headache. Data reviewed: kb vital signs, nurses notes. Counseling: I had a detailed discussion with the patient and/or guardian regarding the historical points, exam findings, and any diagnostic results supporting the discharge/admit diagnosis, lab results, radiology results, the need for outpatient follow up, a family practitioner, to return to the emergency department if symptoms worsen or persist or if there are any questions or concerns that arise at home. 15:38 Test considered but Not performed: CT: CT head considered, but she has had ct scans, as kb well as mri, for this headache that were negative. the headache has not changed. . 15:46 ED course: Pt appears comfortable at this time. PT requests fentanyl because she is kb still having pain and the fentanyl she got before allowed her to sleep. . 18:04 ED course: Upon discharge patient reports that her headache was worse over the last kb couple of days. Discussed with Dr. Greenberg who recommended CAT scan. CAT scan ordered and reviewed with normal findings. states patient received a bag of something that ran over an hour and oxygen last visit and requested that now. Magnesium ordered. Patient states she still not any better. Discussed with Dr. Greenberg again who recommended Dilaudid. Dilaudid ordered, which patient said was not going to work. States she has taken multiple medications for this headache from Dr. Palacios and Dr. Winn but has not found anything to take with the pain. Has an appointment scheduled for March 20 with a headache specialist.. 02/21 13:28 Order name: Basic Metabolic Panel; Complete Time: 14:55 kb 02/21 13:28 Order name: CBC with Diff; Complete Time: 14:55 kb 02/21 13:28 Order name: Magnesium; Complete Time: 14:55 kb 02/21 13:28 Order name: Troponin HS; Complete Time: 14:55 kb 02/21 13:28 Order name: XRAY Chest (1 view); Complete Time: 15:14 kb 02/21 16:25 Order name: CT Head Brain wo Cont; Complete Time: 17:36 kb 02/21 13:28 Order name: EKG; Complete Time: 13:29 kb 02/21 13:28 Order name: Cardiac monitoring; Complete Time: 14:21 kb 02/21 13:28 Order name: EKG - Nurse/Tech; Complete Time: 13:30 kb 02/21 13:28 Order name: IV Saline Lock; Complete Time: 14:21 kb 02/21 13:28 Order name: Labs collected and sent; Complete Time: 14:21 kb 02/21 13:28 Order name: O2 Per Protocol; Complete Time: 14:21 kb 02/21 13:28 Order name: O2 Sat Monitoring; Complete Time: 14:21 kb 02/21 16:17 Order name: Oxygen; Complete Time: 16:22 kb Administered Medications: 14:21 Drug: NS 0.9% IV 1000 ml IV at 1000 ml once Route: IV; Rate: 1000 ml; Site: right wrist;ap3 16:00 Follow up: IV Status: Completed infusion ap3 14:22 Drug: Promethazine IVP 12.5 mg IVP once Route: IVP; Site: right wrist; ap3 16:00 Follow up: Response: No adverse reaction ap3 14:22 Not Given (Patient Refused): ledxgdrpuqsugcu55.5 mg IVP once ap3 14:22 Drug: Decadron - Dexamethasone IVP 10 mg IVP once Route: IVP; Site: right wrist; ap3 16:00 Follow up: Response: No adverse reaction ap3 14:22 Drug: Ketorolac IVP 15 mg IVP once Route: IVP; Site: right wrist; ap3 16:00 Follow up: Response: No adverse reaction; Pain is unchanged, physician notified ap3 14:22 Drug: Fioricet - Esgic PO 325 mg-40 mg-50 mg 1 tab-caps PO once Route: PO; ap3 16:01 Follow up: Response: No adverse reaction; Pain is unchanged, physician notified ap3 16:00 Drug: fentaNYL (PF) IVP 50 mcg IVP once Route: IVP; Site: right wrist; ap3 17:46 Follow up: Response: No adverse reaction; Pain is unchanged, physician notified ap3 16:00 Drug: Ondansetron IVP 4 mg IVP once; over 2 minutes Route: IVP; Site: right wrist; ap3 17:46 Follow up: Response: No adverse reaction ap3 16:21 Drug: Magnesium Sulfate IVPB 1 grams IVPB once over 1 hrs Route: IVPB; Infused Over: 1 ap3 hrs; Site: right antecubital; 18:17 Follow up: IV Status: Completed infusion ap3 17:54 Drug: HYDROmorphone IVP 1 mg IVP once Route: IVP; Site: right antecubital; ap3 18:16 Follow up: Response: No adverse reaction; Pain is decreased ap3 Disposition: 02/22 10:03 Co-signature as Attending Physician, Jatin Greenberg MD I reviewed the patient's care rn provided by the Advanced Practice Provider and agree with the diagnosis and treatment plan. Disposition Summary: 02/21/23 15:46 Discharge Ordered Notes: Location: Home kb Condition: Stable kb Diagnosis - Headache kb Followup: kb - With: Emergency Department - When: As needed - Reason: Worsening of condition Followup: kb - With: Private Physician - When: 2 - 3 days - Reason: Recheck today's complaints, Continuance of care, Re-evaluation by your physician Discharge Instructions: - Discharge Summary Sheet kb - General Headache Without Cause, Oxpy-qj-Wybs kb Forms: - Medication Reconciliation Form kb - Thank You Letter kb - Antibiotic Education kb - Prescription Opioid Use kb - Patient Portal Instructions kb - Leadership Thank You Letter kb Signatures: Dispatcher [employer] EDBonita Verdugo, POLE SETTER-C POLE SETTER-CkJatin Rosa MD MD rn Prokisch, Amanda, RN RN ap3 Ankush Lopez RN RN ll1 Corrections: (The following items were deleted from the chart) 02/21 15:33 15:32 All other systems are negative, kb kb
--- NOTE | 2023-02-21 15:46 | ER ---
Nurse's Notes [facility] Name: Haley Porter Age: 67 yrs Sex: Female : 1955 Arrival Date: 02/21/2023 Time: 13:18 Bed 10 Private MD: Phillip Winn V Diagnosis: Headache Presentation: 02/21 13:28 Chief complaint: Patient states: Migraine SANABRIA worse than usual for 1 few weeks. Constant ll1 CP for awhile. No N/V/D, no fever. Coronavirus screen: Vaccine status: Patient reports receiving the 2nd dose of the covid vaccine. Client denies travel out of the [place] in the last 14 days. At this time, the client does not indicate any symptoms associated with coronavirus-19. Ebola Screen: Patient denies travel to an Ebola-affected area in the 21 days before illness onset. Initial Sepsis Screen: Does the patient meet any 2 criteria? No. Patient's initial sepsis screen is negative. Does the patient have a suspected source of infection? No. Patient's initial sepsis screen is negative. Risk Assessment: Do you want to hurt yourself or someone else? Patient reports no desire to harm self or others. Onset of symptoms was February 19, 2023. 13:28 Method Of Arrival: Ambulatory ll1 13:28 Acuity: RADHA 3 ll1 Triage Assessment: 16:12 Headache History: The patient has had previous headaches and this one is similar to ap3 previous episodes. General: Appears uncomfortable. Pain: Also complains of photophobia. Pain: Complains of pain in top of head. Historical: - Allergies: 13:28 Valium; ll1 13:28 Versed; ll1 13:28 Singulair; ll1 13:28 Oral steroids; ll1 13:28 Morphine; ll1 13:28 Metoclopramide; ll1 - PMHx: 13:28 Migraine; Hypertension; PE; ll1 - PSHx: 13:28 back sx; ll1 - Immunization history:: Adult Immunizations up to date. - Social history:: Smoking status: Patient denies any tobacco usage or history of. Screenin:24 [facility] ED Fall Risk Assessment (Adult) History of falling in the last 3 months, ap3 including since admission No falls in past 3 months (0 pts). Abuse screen: Denies threats or abuse. Nutritional screening: No deficits noted. Tuberculosis screening: No symptoms or risk factors identified. Assessment: 14:23 General: Appears uncomfortable, Behavior is crying. Pain: Complains of pain in head ap3 Pain currently is 10 out of 10 on a pain scale. Pain began 2-3 days ago. Neuro: Level of Consciousness is awake, alert, obeys commands, Oriented to person, place, time, situation. Cardiovascular: Patient's skin is warm and dry. Respiratory: Airway is patent Respiratory effort is even, unlabored. Vital Signs: 13:28 BP 135 / 103; Pulse 82; Resp 16; Temp 98.4; Pulse Ox 97% ; Weight 77.11 kg; Height 5 ll1 ft. 6 in. ; Pain 10/10; 16:22 BP 147 / 76; ap3 18:18 BP 144 / 75; ap3 13:28 Body Mass Index 27.44 (77.11 kg, 167.64 cm) ll1 13:28 Pain Scale: Adult ll1 [place] Coma Score: 15:37 Eye Response: spontaneous(4). Motor Response: obeys commands(6). Verbal Response: kb oriented(5). Total: 15. ED Course: 13:20 Patient arrived in ED. am2 13:20 Phillip Winn MD is Private Physician. am2 13:26 Bonita Victor FNP-C [facility] kb 13:26 Jatin Greenberg MD is Attending Physician. kb 13:30 Triage completed. ll1 13:30 Arm band placed on. ll1 13:35 EKG done, by ED staff. sm8 13:54 Mila Montgomery, RN is Primary Nurse. ap3 14:21 Inserted saline lock: 22 gauge in right wrist, using aseptic technique. Blood collected.ap3 14:24 Patient has correct armband on for positive identification. Bed in low position. Call ap3 light in reach. Adult w/ patient. 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 Pulse ox on. NIBP on. 14:55 XRAY Chest (1 view) In Process Unspecified. EDMS 16:12 Nurse Practitioner and/or Physician Career Technical Supervisor to see patient. ap3 16:12 No provider procedures requiring assistance completed. IV discontinued, intact, ap3 bleeding controlled, No redness/swelling at site. Pressure dressing applied. 17:30 CT Head Brain wo Cont In Process Unspecified. EDMS 18:17 Provided Education on: discharge instructions . ap3 Administered Medications: 14:21 Drug: NS 0.9% IV 1000 ml IV at 1000 ml once Route: IV; Rate: 1000 ml; Site: right wrist;ap3 16:00 Follow up: IV Status: Completed infusion ap3 14:22 Drug: Promethazine IVP 12.5 mg IVP once Route: IVP; Site: right wrist; ap3 16:00 Follow up: Response: No adverse reaction ap3 14:22 Not Given (Patient Refused): kafcibckziemkvn61.5 mg IVP once ap3 14:22 Drug: Decadron - Dexamethasone IVP 10 mg IVP once Route: IVP; Site: right wrist; ap3 16:00 Follow up: Response: No adverse reaction ap3 14:22 Drug: Ketorolac IVP 15 mg IVP once Route: IVP; Site: right wrist; ap3 16:00 Follow up: Response: No adverse reaction; Pain is unchanged, physician notified ap3 14:22 Drug: Fioricet - Esgic PO 325 mg-40 mg-50 mg 1 tab-caps PO once Route: PO; ap3 16:01 Follow up: Response: No adverse reaction; Pain is unchanged, physician notified ap3 16:00 Drug: fentaNYL (PF) IVP 50 mcg IVP once Route: IVP; Site: right wrist; ap3 17:46 Follow up: Response: No adverse reaction; Pain is unchanged, physician notified ap3 16:00 Drug: Ondansetron IVP 4 mg IVP once; over 2 minutes Route: IVP; Site: right wrist; ap3 17:46 Follow up: Response: No adverse reaction ap3 16:21 Drug: Magnesium Sulfate IVPB 1 grams IVPB once over 1 hrs Route: IVPB; Infused Over: 1 ap3 hrs; Site: right antecubital; 18:17 Follow up: IV Status: Completed infusion ap3 17:54 Drug: HYDROmorphone IVP 1 mg IVP once Route: IVP; Site: right antecubital; ap3 18:16 Follow up: Response: No adverse reaction; Pain is decreased ap3 Medication: 16:12 VIS not applicable for this client. ap3 Outcome: 15:46 Discharge ordered by MD. edwards 18:17 Discharged to home ambulatory, ap3 18:17 Condition: good 18:17 Discharge instructions given to patient, family, Instructed on discharge instructions, follow up and referral plans. Demonstrated understanding of instructions, follow-up care, 18:25 Patient left the ED. ap3 Signatures: Dispatcher [employer] EDMS Bonita Victor, NURYS-C SYSTEMS SPECIALIST-Mila Hogan am2 Mila Montgomery RN RN ap3 Ankush Lopez RN RN 1 Geri Canales 8 Corrections: (The following items were deleted from the chart) 14:22 14:22 diphenhydrAMINE IVP 12.5 mg IVP in right wrist ap3 ap3
[2023-02-21] MEDS ORDERED: FENTANYL CITR 100 MCG/2 ML ONE (16:05)
[2023-02-21] MEDS ORDERED: MAGNESIUM SULFATE 1 gm IVPB 1 GM/100 ML BAG IV ONE (16:31)
--- NOTE | 2023-02-21 17:35 | RAD REPORT ---
EXAM DESCRIPTION: CT - Head Brain Wo Cont - 02/21/2023 5:28 pm CLINICAL HISTORY: HEADACHE COMPARISON: Head Brain Wo Cont dated 02/05/2023; Head Brain Wo Cont dated 03/23/2021 TECHNIQUE: All CT scans are performed using dose optimization technique as appropriate and may inclu de automated exposure control or mA/KV adjustment according to patient size. FINDINGS: No intracranial hemorrhage, hydrocephalus or extra-axial fluid collection.No areas of brai n edema or evidence of midline shift. Mild chronic small vessel ischemic changes. The paranasal sinuses and mastoids are clear. The calvarium is intact. IMPRESSION: No acute intracranial abnormality.
[2023-02-21] MEDS ORDERED: HYDROMORPHONE HCL 1 MG/ML INJ ONE (18:02)
[2023-02-21] MEDS ORDERED: NA CHLORIDE 0.9% 500 ML ONE (18:54)
--- NOTE | 2023-02-22 18:07 | EKG ---
Test Date: 2023-02-21 Test Time: 13:29:54 Dye Tub Tender: SEBASTIEN MEASUREMENT RESULTS: Intervals: Rate: 81 CO: 150 QRSD: 84 QT: 364 QTc: 422 [place]: P: 83 CO: 150 QRS: 60 T: 57 INTERPRETIVE STATEMENTS: Normal sinus rhythm Normal ECG Compared to ECG 05/16/2021 14:24:40 Sinus bradycardia no longer present Electronically Signed On 02-22-23 18:05:28 CDT by Jevon Tom
== END 2023-02-21 18:25 | disposition home or self-care (01) ==
LOC: ER 13:18
DX: R51.9 Headache, unspecified (principal); R07.9 Chest pain, unspecified; I10 Essential (primary) hypertension; Z86.711 Personal history of pulmonary embolism; Z88.5 Allergy status to narcotic agent; Z88.8 Allergy status to other drugs, medicaments and biological substances
CPT/HCPCS: 93005; 85025; 80048; 36415; 83735; 84484; 70450; 71045; 99285; J2550; J3475; J1200; J3010; J1100; J1170; J7040; J7030

== ENCOUNTER → 2023-07-20 | Emergency (ER) | payer OTHER ==
[~2023-07-20] MED LIST: ACETAMINOPHEN 500 MG TAB ONE; DIPHENHYDRAMINE 50 MG/ML VIAL ONE; KETOROLAC 30 MG/ML INJ ONE; MECLIZINE HCL 12.5 MG TAB ONE; NA CHLORIDE 0.9% 1,000 ML ONE; PROMETHAZINE INJ 25 MG/ML AMP ONE; dexAMETHasone 10 MG/ML VIAL ONE
[2023-07-20 19:32] LABS: Absolute Basophils 0.1 K/uL (0-0.5); Absolute Eosinophils 0.1 K/uL (0-0.5); Absolute Lymphocytes (CBC) 1.7 K/uL (0.7-4.9); Absolute Monocytes 0.7 K/uL (0.1-1.3); Absolute Neutrophil 3.2 K/uL (1.8-8.0); Eosinophils % 1.5 % (0-4.4); Hematocrit 39.3 % (36.0-45.0); Hemoglobin 13.8 g/dL (12.0-15.0); Lymphocytes % 30.2 % (15.3-44.8); MCH 33.3 pg (27.0-35.0); MCHC 35.2 g/dL (32.0-36.0); MCV 94.7 fL (80-100); Monocytes % 11.6 % (3.3-12.3); Neutrophils % 55.7 % (41.7-73.7); Nucleated Red Blood Cells % 0.1 % (0-0); Platelets 246 thou/uL (152-406); RBC Red Blood Cell Count 4.15 M/uL (3.86-4.86); Red Cell Distribution Width 12.7 % (12.1-15.2)
[2023-07-20 19:36] LABS: PT Prothrombin Time 11.4 SECONDS (9.5-12.5); PTT, Activated Partial Thromb 29.2 SECONDS (24.3-36.9); Protime INR 1.04
[2023-07-20 19:48] LABS: ALT/SGPT 19 U/L (13-56); AST/SGOT 13 U/L (15-37); Albumin 3.4 g/dL (3.4-5.0); Albumin/Globulin Ratio 1.1 (1.1-1.8); Alkaline Phosphatase 98 U/L (45-117); Anion Gap 8.7 mEq/L (5.0-15.0); BUN Blood Urea Nitrogen 12 mg/dL (7-18); Bicarbonate 29 mEq/L (21-32); Bilirubin Direct < 0.1 mg/dL (0-0.2); Bilirubin Indirect, Calculated ND mg/dL (0.2-0.8); Bilirubin Total 0.2 mg/dL (0.2-1.0); Globulin 3.1 g/dL (2.3-3.5); Glomerular Filtration Rate 94 ml/min (=/>90); Glucose Level 93 mg/dL (74-106); Magnesium 2.2 mg/dL (1.6-2.4); Potassium 3.7 mEq/L (3.5-5.1); Protein, Total 6.5 g/dL (6.4-8.2); Sodium Level 140 mEq/L (136-145); Troponin High Sensitivity 4.6 pg/mL (<58.9)
--- NOTE | 2023-07-20 20:27 | RAD REPORT ---
EXAM DESCRIPTION: CT - Head Brain Wo Cont - 07/20/2023 8:20 pm CLINICAL HISTORY: Headache;Dizziness Headache, drowsiness COMPARISON: Head Brain Wo Cont dated 02/21/2023; Head Brain Wo Cont dated 02/05/2023 TECHNIQUE: All CT scans are performed using dose optimization technique as appropriate and may inclu de automated exposure control or mA/KV adjustment according to patient size. FINDINGS: No intracranial hemorrhage, hydrocephalus or extra-axial fluid collection.No areas of brai n edema or evidence of midline shift. The paranasal sinuses and mastoids are clear. The calvarium is intact. IMPRESSION: No acute intracranial abnormality.
[2023-07-20 21:40] LABS: Specific Gravity 1.006 (1.005-1.030); Sqamous Epithelial <5 /HPF (None Seen); Urine Bacteria <20 /HPF (<20); Urine Bilirubin NEGATIVE (Negative); Urine Blood Negative (Negative); Urine Clarity Clear (Clear); Urine Color Colorless (Yellow); Urine Culture Reflex Order NOT NEEDED; Urine Glucose NEGATIVE (Negative); Urine Ketones NEGATIVE (Negative); Urine Microscopic Reflex YN ORDER UMIC; Urine Nitrite NEGATIVE (Negative); Urine Protein NEGATIVE (Negative); Urine RBC <5 /HPF (None Seen); Urine Urobilinogen Normal (Normal); Urine WBC <5 /HPF (<5); Urine pH 6.5 (5.0-7.0)
--- NOTE | 2023-07-20 22:11 | EDPHYS ---
Physician Documentation [facility] Name: Haley Porter Age: 67 yrs Sex: Female : 1955 Arrival Date: 07/20/2023 Time: 17:41 Bed 5 Private MD: ED Physician Parth Ordoñez HPI: 07/19 22:25 This 67 yrs old Female presents to ER via Wheelchair with complaints of Dizziness, kb Diarrhea. Historical: - Allergies: 17:55 Metoclopramide; ap3 17:55 Morphine; ap3 17:55 Oral steroids; ap3 17:55 Singulair; ap3 17:55 Valium; ap3 17:55 Versed; ap3 - PMHx: 17:55 Hypertension; Migraine; PE; ap3 - PSHx: 17:55 back sx; ap3 - Immunization history:: Client reports having NOT received the Covid vaccine. - Social history:: Smoking status: Patient denies any tobacco usage or history of. Vital Signs: 17:53 BP 121 / 64; Pulse 69; Resp 17; Temp 97.6; Pulse Ox 95% on R/A; Weight 80.29 kg; Height ap3 5 ft. 6 in. ; 20:00 BP 170 / 92; Pulse 61; Resp 16; Pulse Ox 99% ; jj7 20:38 BP 141 / 98; Pulse 64; Resp 18; Pulse Ox 100% on R/A; rv 21:30 BP 153 / 75; Pulse 57; Resp 17; Pulse Ox 99% ; jj7 22:35 BP 153 / 86; Pulse 54; Resp 17; Pulse Ox 99% ; jj7 17:53 Body Mass Index 28.57 (80.29 kg, 167.64 cm) ap3 [place] Coma Score: 20:42 Eye Response: spontaneous(4). Motor Response: obeys commands(6). Verbal Response: rv oriented(5). Total: 15. MDM: 17:49 Patient medically screened. kb 07/19 17:56 Order name: Basic Metabolic Panel; Complete Time: 19:52 kb 07/19 17:56 Order name: CBC with Diff; Complete Time: 19:56 kb 07/19 17:56 Order name: Hepatic Function; Complete Time: 19:52 kb 07/19 17:56 Order name: Magnesium; Complete Time: 19:52 kb 07/19 17:56 Order name: Protime (+inr); Complete Time: 19:42 kb 07/19 17:56 Order name: Ptt, Activated; Complete Time: 19:42 kb 07/19 17:56 Order name: Troponin High Sensitivity; Complete Time: 19:52 kb 07/19 17:56 Order name: Urinalysis w/ reflexes; Complete Time: 21:44 kb 07/19 17:56 Order name: Chest Single View XRAY kb 07/19 19:56 Order name: CT Head Brain wo Cont; Complete Time: 20:29 kb 07/19 17:56 Order name: EKG; Complete Time: 17:56 kb 07/19 17:56 Order name: Cardiac monitoring; Complete Time: 19:27 kb 07/19 17:56 Order name: EKG - Nurse/Tech; Complete Time: 20:52 kb 07/19 17:56 Order name: IV Saline Lock; Complete Time: 19:27 kb 07/19 17:56 Order name: Labs collected and sent; Complete Time: 19:27 kb 07/19 17:56 Order name: NPO; Complete Time: 19:27 kb 07/19 17:56 Order name: O2 Per Protocol; Complete Time: 19:27 kb 07/19 17:56 Order name: O2 Sat Monitoring; Complete Time: 19:27 kb 07/19 17:56 Order name: Orthostatics; Complete Time: 19:27 kb Administered Medications: 19:28 Drug: NS 0.9% IV 1000 ml IV at 1000 ml once Route: IV; Rate: 1000 ml; Site: right rv antecubital; 21:45 Follow up: IV Status: Completed infusion jj7 19:28 Not Given (Duplicate Order): sodium chloride 0.9%1000 ml IVPB once rv 20:12 Drug: Meclizine PO 25 mg PO once Route: PO; jj7 21:00 Follow up: Response: No change in condition jj7 20:12 Drug: Acetaminophen PO 1000 mg PO once Route: PO; jj7 21:00 Follow up: Response: Pain is decreased jj7 21:07 Not Given (Patient Refused): xxvojqbajfpxoaw21.5 mg IVP once rv 21:26 Not Given (Patient Refused): Decadron - [id number] mg IVP once rv 21:26 Drug: Ketorolac IVP 15 mg IVP once Route: IVP; Site: right antecubital; rv 22:30 Follow up: Response: Pain is decreased jj7 21:26 Drug: Promethazine IVP 6.25 mg IVP once Route: IVP; Site: right antecubital; rv 22:30 Follow up: Response: Nausea is decreased jj7 Disposition Summary: 07/20/23 22:10 Discharge Ordered Notes: Location: Home kb Condition: Stable kb Diagnosis - Dizziness and giddiness kb Followup: kb - With: Emergency Department - When: As needed - Reason: Worsening of condition Followup: kb - With: Private Physician - When: 2 - 3 days - Reason: Recheck today's complaints, Continuance of care, Re-evaluation by your physician Discharge Instructions: - Discharge Summary Sheet kb - Vertigo, [id number] kb - Dizziness, [id number] kb Forms: - Medication Reconciliation Form kb - Thank You Letter kb - Antibiotic Education kb - Prescription Opioid Use kb - Patient Portal Instructions kb - Leadership Thank You Letter kb Prescriptions: - Meclizine 25 mg Oral Tablet - take 1 tablet ORAL route every 8 hours As needed; 30 tablet; Refills: 0, kb Product Selection Permitted Signatures: Dispatcher [employer] EDBonita Verdugo, CHARI SAMP-Mila Zafar RN RN ap3 Juan Hassan RN RN Cheko Galloway RN RN jj7
--- NOTE | 2023-07-20 22:11 | ER ---
Nurse's Notes [facility] Name: Haley Porter Age: 67 yrs Sex: Female : 1955 Arrival Date: 07/20/2023 Time: 17:41 Bed 5 Private MD: Diagnosis: Dizziness and giddiness Presentation: 07/19 17:53 Chief complaint: Patient states: she has been having intermittent constipation/diarrhea ap3 for a year. patient also complains of dizziness when changing positions. patient also complains of nausea, vomiting. patient also complains of mid chest pain. Coronavirus screen: At this time, the client does not indicate any symptoms associated with coronavirus-19. Ebola Screen: No symptoms or risks identified at this time. Initial Sepsis Screen: Does the patient meet any 2 criteria? No. Patient's initial sepsis screen is negative. Does the patient have a suspected source of infection? No. Patient's initial sepsis screen is negative. Risk Assessment: Do you want to hurt yourself or someone else? Patient reports no desire to harm self or others. Onset of symptoms is unknown. 17:53 Method Of Arrival: Wheelchair ap3 17:53 Acuity: RADHA 3 ap3 Triage Assessment: 17:56 General: Appears uncomfortable, Behavior is calm, cooperative. Pain: Denies pain. ap3 Neuro: Reports dizziness. Cardiovascular: Patient's skin is warm and dry. Respiratory: Airway is patent Respiratory effort is even, unlabored, Respiratory pattern is regular, symmetrical. GI: Reports constipation, diarrhea, nausea, vomiting. Historical: - Allergies: 17:55 Metoclopramide; ap3 17:55 Morphine; ap3 17:55 Oral steroids; ap3 17:55 Singulair; ap3 17:55 Valium; ap3 17:55 Versed; ap3 - PMHx: 17:55 Hypertension; Migraine; PE; ap3 - PSHx: 17:55 back sx; ap3 - Immunization history:: Client reports having NOT received the Covid vaccine. - Social history:: Smoking status: Patient denies any tobacco usage or history of. Screenin:57 Abuse screen: Denies threats or abuse. Nutritional screening: No deficits noted. ap3 Tuberculosis screening: No symptoms or risk factors identified. 20:00 [facility] ED Fall Risk Assessment (Adult) History of falling in the last 3 months, jj7 including since admission No falls in past 3 months (0 pts) Confusion or Disorientation No (0 pts) Intoxicated or Sedated No (0 pts) Impaired Gait No (0 pts) Mobility Assist Device Used No (0 pt) Altered Elimination No (0 pt) Score/Fall Risk Level 0 - 2 = Low Risk Oriented to surroundings, Maintained a safe environment, Educated pt \T\ family on fall prevention, incl call for assistance when getting out of bed. Assessment: 20:00 Reassessment:. General: Appears in no apparent distress. uncomfortable, Behavior is jj7 calm, cooperative, appropriate for age. Neuro: Reports dizziness, headache. Vital Signs: 17:53 BP 121 / 64; Pulse 69; Resp 17; Temp 97.6; Pulse Ox 95% on R/A; Weight 80.29 kg; Height ap3 5 ft. 6 in. ; 20:00 BP 170 / 92; Pulse 61; Resp 16; Pulse Ox 99% ; jj7 20:38 BP 141 / 98; Pulse 64; Resp 18; Pulse Ox 100% on R/A; rv 21:30 BP 153 / 75; Pulse 57; Resp 17; Pulse Ox 99% ; jj7 22:35 BP 153 / 86; Pulse 54; Resp 17; Pulse Ox 99% ; jj7 17:53 Body Mass Index 28.57 (80.29 kg, 167.64 cm) ap3 [place] Coma Score: 20:42 Eye Response: spontaneous(4). Motor Response: obeys commands(6). Verbal Response: rv oriented(5). Total: 15. ED Course: 17:43 Patient arrived in ED. im 17:48 Parth Ordoñez MD is Attending Physician. ec2 17:49 [facility]C [facility]. kb 17:55 Triage completed. ap3 17:56 Arm band placed on right wrist. ap3 18:35 Patient placed in an exam room, on a stretcher. ll1 18:50 Chest Single View XRAY In Process Unspecified. EDMS 20:00 Patient has correct armband on for positive identification. Call light in reach. Side jj7 rails up X2. Adult w/ patient. Placed in gown. Client placed on continuous cardiac and pulse oximetry monitoring. NIBP monitoring applied. Warm blanket given. 20:00 Inserted saline lock: 20 gauge in right antecubital area, using aseptic technique. jj7 ,using aseptic technique. inserted by jillian. 20:21 CT Head Brain wo Cont In Process Unspecified. EDMS 22:35 No provider procedures requiring assistance completed. IV discontinued, intact, jj7 bleeding controlled, No redness/swelling at site. Pressure dressing applied. Administered Medications: 19:28 Drug: NS 0.9% IV 1000 ml IV at 1000 ml once Route: IV; Rate: 1000 ml; Site: right rv antecubital; 21:45 Follow up: IV Status: Completed infusion jj7 19:28 Not Given (Duplicate Order): sodium chloride 0.9%1000 ml IVPB once rv 20:12 Drug: Meclizine PO 25 mg PO once Route: PO; jj7 21:00 Follow up: Response: No change in condition jj7 20:12 Drug: Acetaminophen PO 1000 mg PO once Route: PO; jj7 21:00 Follow up: Response: Pain is decreased jj7 21:07 Not Given (Patient Refused): dxncnpekqzkfyhs86.5 mg IVP once rv 21:26 Not Given (Patient Refused): Decadron - zplclvuvbaptr59 mg IVP once rv 21:26 Drug: Ketorolac IVP 15 mg IVP once Route: IVP; Site: right antecubital; rv 22:30 Follow up: Response: Pain is decreased jj7 21:26 Drug: Promethazine IVP 6.25 mg IVP once Route: IVP; Site: right antecubital; rv 22:30 Follow up: Response: Nausea is decreased jj7 Medication: 20:00 VIS not applicable for this client. jj7 Outcome: 22:10 Discharge ordered by MD. edwards 22:35 Discharged to home via wheelchair, with significant other, jj7 22:35 Condition: stable 22:35 Discharge instructions given to patient, family, Instructed on discharge instructions, Demonstrated understanding of instructions, 22:35 Patient left the ED. jj7 Signatures: Dispatcher [employer] EDMS Bonita Victor, CHARI NUNO-Mila Zafar RN RN ap3 Juan Hassan RN RN rv Ankush Lopez RN RN ll1 Cheko Talbot RN RN jj7 Jackie Yepez Edwin, MD MD ec2 Corrections: (The following items were deleted from the chart) 22:44 22:43 Patient left the ED. jj7 jj7
[2023-07-20 23:10] VITALS: BP 153/86; TEMP 97.6; O2SAT 99
== END ==
LOC: ER 17:41
DX: R42 Dizziness and giddiness (principal); R19.7 Diarrhea, unspecified; Z88.5 Allergy status to narcotic agent; Z88.8 Allergy status to other drugs, medicaments and biological substances; Z28.310 Unvaccinated for COVID-19
CPT/HCPCS: 85025; 81001; 80048; 36415; 83735; 85610; 80076; 85730; 84484; 70450; 71045; J2550; J8597; J1200; J1100; J7030

== ENCOUNTER 2023-08-08 16:30 | Emergency (ER) | payer OTHER ==
[2023-08-08] MEDS ORDERED: TDAP (DIPHTH,PERTUSS(ACELL),TET VAC) 0.5 ML VIAL IMVAC ONE (17:27)
--- NOTE | 2023-08-08 17:46 | RAD REPORT ---
EXAM DESCRIPTION: RAD - Hand Right 3 View - 08/08/2023 5:37 pm CLINICAL HISTORY: PAIN COMPARISON: No comparisons FINDINGS/IMPRESSION: No acute fracture. No malalignment. Interphalangeal joint space narrowing. Dege nerative changes are present the first carpometacarpal joint. No radiopaque foreign bodies. Lacerati on to the dorsum of the hand.
[2023-08-08] MEDS ORDERED: LIDOCAINE 1% MPF 5 ML VIAL ONE (17:51)
--- NOTE | 2023-08-08 18:11 | ER ---
Nurse's Notes [facility] Name: Haley Porter Age: 67 yrs Sex: Female : 1955 Arrival Date: 08/08/2023 Time: 16:30 Bed 6 Private MD: Phillip Winn V Diagnosis: Bitten by dog Presentation: 08/07 16:59 Chief complaint: Patient states: Neighbors dog bit right hand and left upper arm while nj1 walking dog on street. Coronavirus screen: Vaccine status: Patient reports being unvaccinated. Ebola Screen: Patient denies travel to an Ebola-affected area in the 21 days before illness onset. Initial Sepsis Screen: Does the patient meet any 2 criteria? No. Patient's initial sepsis screen is negative. Does the patient have a suspected source of infection? No. Patient's initial sepsis screen is negative. Risk Assessment: Do you want to hurt yourself or someone else? Patient reports no desire to harm self or others. Onset of symptoms was August 08, 2023 at 16:20. 16:59 Method Of Arrival: Wheelchair [facility] 16:59 Acuity: RADHA 3 nj Triage Assessment: 17:05 Bite description: bite sustained to right hand and left tricep is from animal, was nj1 sustained 30-60 minutes ago. by a dog, animal information: vaccination(s) is unknown, Animal control has not been notified. General: Appears in no apparent distress. uncomfortable, Behavior is cooperative, anxious, crying. Pain: Complains of pain in right hand Pain currently is 10 out of 10 on a pain scale. Neuro: No deficits noted. Respiratory: No deficits noted. Historical: - Allergies: 17:04 Metoclopramide; nj1 17:04 Morphine; nj1 17:04 Oral steroids; nj1 17:04 Singulair; nj1 17:04 Valium; nj1 17:04 Versed; nj1 - PMHx: 17:04 Hypertension; Migraine; PE; nj1 - PSHx: 17:04 back sx; nj1 - Immunization history:: Client reports having NOT received the Covid vaccine. - Infectious Disease History:: Denies. - Social history:: Smoking status: Patient denies any tobacco usage or history of. Screenin:44 [facility] ED Fall Risk Assessment (Adult) Score/Fall Risk Level 0 - 2 = Low Risk. Abuse iw screen: Denies threats or abuse. Denies injuries from another. Nutritional screening: No deficits noted. Tuberculosis screening: No symptoms or risk factors identified. Assessment: 17:09 Reassessment: Call placed to [facility] to report dog bite. nj1 Spoke with dispatch, information provided. Informed patient they will receive a call from them and instructed them to call them once they get home per dispatchers instructions. Patient and patients voice understanding. 17:43 General: Appears uncomfortable, Behavior is cooperative, anxious. Neuro: Level of iw Consciousness is awake, alert, obeys commands, Oriented to person, place, time, situation, Moves all extremities. Full function. Respiratory: Respiratory effort is even, unlabored, Respiratory pattern is regular, symmetrical. GI: No signs and/or symptoms were reported involving the gastrointestinal system. Derm: Skin. Musculoskeletal: Range of motion: intact in all extremities. Injury Description: Bite sustained to right hand and left tricep caused by a dog, is superficial, full thickness, was sustained 1-2 hours ago. Vital Signs: 16:59 Pulse 67; Resp 16; Temp 98.1(TE); Pulse Ox 98% ; Weight 75.75 kg; Height 5 ft. 6 in. ; nj1 Pain 10/10; 16:59 Body Mass Index 26.95 (75.75 kg, 167.64 cm) nj1 16:59 Pain Scale: Adult [facility] ED Course: 16:31 Patient arrived in ED. rg4 16:31 Phillip Winn MD is Private Physician. rg4 16:31 Bon[facility]-C [facility]. kb 16:31 Zain Sanchez MD is Attending Physician. kb 17:04 Triage completed. nj1 17:05 Arm band placed on right wrist. nj1 17:26 Mya Toth, RN is Primary Nurse. iw 17:39 Hand Right 3 View XRAY In Process Unspecified. EDMS 18:45 Assist provider with laceration repair on dorsum of right hand that was 2.5 cm. or less ss using sutures. Set up tray. Performed by Bonita MARCELINO Dressed with Kerlix, Neosporin, non adherent dressing Patient tolerated well. Patient did not have IV access during this emergency room visit. Sling applied to right arm. Pt requested sling for comfort. Wound care:. Administered Medications: 17:42 Drug: Boostrix Tdap IM 0.5 ml IM once; as a single dose Route: IM; Site: right deltoid; iw 18:16 Follow up: Response: No adverse reaction ss 18:16 Drug: Lidocaine Infiltration (1 %) 1 vials 5 ml Infiltration once; to bedside {Note: ss Administered [place] .} Volume: 5 ml; Route: Infiltration; 18:22 Drug: HYDROcodone-acetaminophen PO 5 mg-325 mg 1 tabs PO once Route: PO; ss 18:45 Follow up: Response: Pain is decreased ss 18:22 Drug: Ondansetron PO 4 mg PO once Route: PO; ss 18:45 Follow up: Response: No adverse reaction Medication: 17:44 Vaccine Information Statement (VIS) provided today. Questions and/or concerns iw addressed. VIS edition date: December 2020. Outcome: 18:11 Discharge ordered by . grace 18:45 Discharged to home ambulatory, with family, 18:45 Condition: good 18:45 Discharge instructions given to patient, significant other, Instructed on discharge instructions, follow up and referral plans. medication usage, wound care, Demonstrated understanding of instructions, follow-up care, medications, wound care, Prescriptions given X 1, 18:47 Patient left the ED. Signatures: Dispatcher [employer] Bonita Hurd, TRAFFIC DIVISION COMMANDING OFFICER-C TRAFFIC DIVISION COMMANDING OFFICER-Mya Posey, TRAV RAVI Flor Chi RN RN ss Garcia, Rubi rg4 Cathy Alejo RN RN nj1
--- NOTE | 2023-08-08 18:11 | EDPHYS ---
Physician Documentation [facility] Name: Haley Porter Age: 67 yrs Sex: Female : 1955 Arrival Date: 08/08/2023 Time: 16:30 Bed 6 Private MD: Phillip Winn V ED Physician Zain Sanchez HPI: 08/07 18:08 This 67 yrs old Female presents to ER via Wheelchair with complaints of Dog Bite. kb 18:08 Patient is a 67-year-old female who was bitten by a dog just prior to arrival. Patient kb states her neighbors dog jumped up on her and bit her left upper arm and right hand. Denies any other injuries.. Historical: - Allergies: 17:04 Metoclopramide; nj1 17:04 Morphine; nj1 17:04 Oral steroids; nj1 17:04 Singulair; nj1 17:04 Valium; nj1 17:04 Versed; nj1 - PMHx: 17:04 Hypertension; Migraine; PE; nj1 - PSHx: 17:04 back sx; nj1 - Immunization history:: Client reports having NOT received the Covid vaccine. - Infectious Disease History:: Denies. - Social history:: Smoking status: Patient denies any tobacco usage or history of. ROS: 18:08 Constitutional: As per HPI kb Exam: 18:08 Constitutional: This is a well developed, well nourished patient who is awake, alert, kb and in no acute distress. Head/Face: Normocephalic, atraumatic. ENT: Moist Mucous membranes Cardiovascular: Regular rate Respiratory: Respirations even and unlabored. No increased work of breathing. Talking in full sentences Neuro: Awake and alert, GCS 15, oriented to person, place, time, and situation. Moves all extremities. Normal gait. 18:08 Skin: injury, bite(s), superficial, of the lateral aspect of right hand and dorsum of right hand, contusion(s), that are superficial, of the left tricep, Vital Signs: 16:59 Pulse 67; Resp 16; Temp 98.1(TE); Pulse Ox 98% ; Weight 75.75 kg; Height 5 ft. 6 in. ; nj1 Pain 10/10; 16:59 Body Mass Index 26.95 (75.75 kg, 167.64 cm) nj1 16:59 Pain Scale: Adult nj1 Laceration: 18:08 Wound Repair of 1.5cm ( 0.6in ) subcutaneous laceration to dorsum of right hand. kb Irregularly shaped.. Distal neuro/vascular/tendon intact. Anesthesia: Wound infiltrated with 2 mls of 1% lidocaine. Wound prep: Extensive cleansing with hibiclenz by me, Wound irrigation with saline by me. Skin closed with 3 5-0 Prolene using simple sutures and sterile technique. Patient tolerated well. 18:08 Wound Repair of 0.5cm ( 0.2in ) subcutaneous laceration to lateral aspect of right kb hand. Linear shaped.. Distal neuro/vascular/tendon intact. Anesthesia: Local anesthetic administered with 1 mls of 1% lidocaine. Wound prep: Extensive cleansing with hibiclenz by me, Wound irrigation with saline by me. Skin closed with 1 5-0 Prolene using simple sutures and sterile technique. Patient tolerated . MDM: 16:31 Patient medically screened. kb 18:09 Differential diagnosis: superficial laceration, tendon injury, vascular injury. Data kb reviewed: vital signs, nurses notes. Counseling: I had a detailed discussion with the patient and/or guardian regarding the historical points, exam findings, and any diagnostic results supporting the discharge/admit diagnosis, radiology results, the need for outpatient follow up, a family practitioner, to return to the emergency department if symptoms worsen or persist or if there are any questions or concerns that arise at home. 08/07 16:43 Order name: Hand Right 3 View XRAY; Complete Time: 17:49 kb 08/07 17:40 Order name: Dressing - Wound; Complete Time: 18:47 kb 08/07 17:40 Order name: Gloves, Sterile: size 6; Complete Time: 17:52 kb 08/07 17:40 Order name: Prolene, Sutures: 5.0 prolene; Complete Time: 17:52 kb 08/07 17:40 Order name: Setup Suture Tray; Complete Time: 17:52 kb Administered Medications: 17:42 Drug: Boostrix Tdap IM 0.5 ml IM once; as a single dose Route: IM; Site: right deltoid; iw 18:16 Follow up: Response: No adverse reaction 18:16 Drug: Lidocaine Infiltration (1 %) 1 vials 5 ml Infiltration once; to bedside {Note: ss Administered [place]} Volume: 5 ml; Route: Infiltration; 18:22 Drug: HYDROcodone-acetaminophen PO 5 mg-325 mg 1 tabs PO once Route: PO; ss 18:45 Follow up: Response: Pain is decreased ss 18:22 Drug: Ondansetron PO 4 mg PO once Route: PO; ss 18:45 Follow up: Response: No adverse reaction ss Disposition Summary: 08/08/23 18:11 Discharge Ordered Notes: Location: Home kb Condition: Stable kb Diagnosis - Bitten by dog kb Followup: kb - With: Emergency Department - When: As needed - Reason: Worsening of condition Followup: kb - With: Private Physician - When: 2 - 3 days - Reason: Recheck today's complaints, Continuance of care, Re-evaluation by your physician Discharge Instructions: - Discharge Summary Sheet kb - Animal Bite, Adult, [id number] kb Forms: - Medication Reconciliation Form kb - Thank You Letter kb - Antibiotic Education kb - Prescription Opioid Use kb - Patient Portal Instructions kb - Leadership Thank You Letter kb Prescriptions: - Augmentin 875-125 mg Oral Tablet - take 1 tablet ORAL route every 12 hours for 10 days; 20 tablet; Refills: 0, kb Product Selection Permitted Signatures: Dispatcher [employer] Bonita Hurd, NURYS-C PRINTING PLATE SETTER-Mya Posey, RN Flor Menon RN RN ss Cathy Alejo RN RN nj1
[2023-08-08] MEDS ORDERED: ONDANSETRON 4 MG (ODT) TAB ONE (18:20)
[2023-08-08] MEDS ORDERED: HYDROCODONE/APAP 5/325 MG TAB ONE (18:20)
[2023-08-09 01:16] VITALS: TEMP 98.1; O2SAT 98
== END 2023-08-08 18:47 | disposition home or self-care (01) ==
LOC: ER 16:30
DX: S60.571A Other superficial bite of hand of right hand, initial encounter (principal); S40.872A Other superficial bite of left upper arm, initial encounter; W54.0XXA Bitten by dog, initial encounter; Z88.5 Allergy status to narcotic agent; Z88.8 Allergy status to other drugs, medicaments and biological substances
CPT/HCPCS: 73130; 96372; 99284; Q0162; J2001

== ENCOUNTER 2023-10-21 14:46 | Emergency (ER) | payer OTHER ==
[2023-10-21 15:21] LABS: Absolute Eosinophils 0.1 K/uL (0-0.5); Absolute Monocytes 0.6 K/uL (0.1-1.3); Absolute Neutrophil 4.8 K/uL (1.8-8.0); Basophils % 0.6 % (0-1.3); Eosinophils % 1.7 % (0-4.4); Hematocrit 46.1 % (36.0-45.0); Hemoglobin 15.1 g/dL (12.0-15.0); Lymphocytes % 26.4 % (15.3-44.8); MCH 31.6 pg (27.0-35.0); MCHC 32.6 g/dL (32.0-36.0); MCV 96.9 fL (80-100); Monocytes % 8.1 % (3.3-12.3); Neutrophils % 63.2 % (41.7-73.7); Platelets 269 thou/uL (152-406); RBC Red Blood Cell Count 4.76 M/uL (3.86-4.86); Red Cell Distribution Width 12.8 % (12.1-15.2)
[2023-10-21] MEDS ORDERED: ONDANSETRON 4 MG/2 ML VIAL ONE (15:39)
[2023-10-21] MEDS ORDERED: DIPHENHYDRAMINE 50 MG/ML VIAL ONE (15:40)
[2023-10-21 15:42] LABS: ALT/SGPT 25 U/L (13-56); AST/SGOT < 10 U/L (15-37); Albumin 4.1 g/dL (3.4-5.0); Albumin/Globulin Ratio 1.1 (1.1-1.8); Alkaline Phosphatase 128 U/L (45-117); Anion Gap 11.7 mEq/L (5.0-15.0); BUN Blood Urea Nitrogen 14 mg/dL (7-18); Bicarbonate 25 mEq/L (21-32); Bilirubin Direct < 0.2 mg/dL (0-0.2); Bilirubin Indirect, Calculated 0.1 mg/dL (0.2-0.8); Bilirubin Total 0.3 mg/dL (0.2-1.0); Globulin 3.6 g/dL (2.3-3.5); Glomerular Filtration Rate 80 ml/min (=/>90); Glucose Level 181 mg/dL (74-106); Magnesium 2.3 mg/dL (1.6-2.4); Potassium 3.7 mEq/L (3.5-5.1); Protein, Total 7.7 g/dL (6.4-8.2); Sodium Level 139 mEq/L (136-145); Troponin High Sensitivity < 3.0 pg/mL (<58.9)
--- NOTE | 2023-10-21 15:45 | RAD REPORT ---
EXAM DESCRIPTION: CT - Head Brain Wo Cont - 10/21/2023 3:32 pm CLINICAL HISTORY: HEADACHE Headache, drowsiness COMPARISON: Head angio dated 10/21/2023; Head Brain Wo Cont dated 07/20/2023 TECHNIQUE: All CT scans are performed using dose optimization technique as appropriate and may inclu de automated exposure control or mA/KV adjustment according to patient size. FINDINGS: No intracranial hemorrhage, hydrocephalus or extra-axial fluid collection.Mild generalized brain atrophy is present with mild periventricular and deep white matter chronic microvascular ische checo changes.No areas of brain edema or evidence of midline shift. The paranasal sinuses and mastoids are clear. The calvarium is intact. IMPRESSION: No acute intracranial abnormality.
[2023-10-21 15:46] LABS: PT Prothrombin Time 11.2 SECONDS (9.4-12.5); Protime INR 1.02
--- NOTE | 2023-10-21 15:48 | RAD REPORT ---
EXAM DESCRIPTION: CT - Head angio - 10/21/2023 3:33 pm CLINICAL HISTORY: HEADACHE Headache, drowsiness COMPARISON: Head Brain Wo Cont dated 07/20/2023; Head Brain Wo Cont dated 02/21/2023 TECHNIQUE: CT angiography of the head was performed with MIPs. All CT scans are performed using dose optimization technique as appropriate and may include automated exposure control or mA/KV adjustment according to patient size. FINDINGS: No evidence of large vessel occlusion. No evidence of aneurysm is detected. No flow-limiti ng stenosis or vascular malformation identified. Antegrade flow is seen in the vertebral arteries. The vertebral arteries are codominant. The visualized dural venous sinuses are patent. IMPRESSION: No significant flow abnormality is detected.
--- NOTE | 2023-10-21 15:52 | RAD REPORT ---
EXAM DESCRIPTION: CT - Neck Angio - 10/21/2023 3:33 pm CLINICAL HISTORY: HEADACHE Headache, drowsiness COMPARISON: Head C Spine Mpr Wo Con dated 05/20/2020; Soft Tissue Neck W/Contr dated 04/17/2020; Head C Spine Mpr Wo Con dated 01/07/2020; Soft Tissue Neck W/Contr dated 10/30/2019 TECHNIQUE: CT angiography of the neck vessels was performed with MIPs. All CT scans are performed using dose optimization technique as appropriate and may include automated exposure control or mA/KV adjustment according to patient size. FINDINGS: A left aortic arch is identified with normal three vessel configuration of the great vesse ls. No significant flow abnormality is seen of the common carotid bilaterally. Moderate hard plaquing is seen in both carotid bulbs. This results in mild carotid stenosis bilateral ly, slightly greater on the left estimated at 70% based on NASCET criteria. Normal flow is seen within both vertebral arteries. IMPRESSION: Moderate hard plaquing in both carotid bulbs is present. Approximately 70% stenosis suspected left carotid bulb based on NASCET criteria. NASCET criteria used. Mild 0-49% stenosis Moderate 50-69% stenosis Severe 70-99% stenosis
--- NOTE | 2023-10-21 16:05 | RAD REPORT ---
EXAM DESCRIPTION: RAD - Chest Single View - 10/21/2023 3:59 pm CLINICAL HISTORY: CHEST PAIN Chest pain. COMPARISON: Chest Single View dated 07/20/2023; Chest Single View dated 02/21/2023; Chest Single View dated 05/16/2021; Chest Single View dated 05/06/2021 FINDINGS: Portable technique limits examination quality. The lungs are grossly clear. The heart is normal in size. No displaced fractures.Cervical hardware pl ate. IMPRESSION: No acute intrathoracic process suspected.
--- NOTE | 2023-10-21 16:35 | ER ---
Nurse's Notes [facility] [place] Name: Haley Porter Age: 67 yrs Sex: Female : 1955 Arrival Date: 10/21/2023 Time: 14:46 Bed 13 Private MD: Diagnosis: Headache Presentation: 10/20 14:53 Chief complaint: Spouse and/or significant other states: Headache, worse than normal, nj1 onset around 1300 while eating lunch, patient got shaky and was sweating. 14:53 Coronavirus screen: At this time, the client does not indicate any symptoms associated nj1 with coronavirus-19. Ebola Screen: Patient denies travel to an Ebola-affected area in the 21 days before illness onset. Initial Sepsis Screen: Does the patient meet any 2 criteria? No. Patient's initial sepsis screen is negative. Does the patient have a suspected source of infection? No. Patient's initial sepsis screen is negative. Risk Assessment: Do you want to hurt yourself or someone else? Patient reports no desire to harm self or others. Onset of symptoms was October 21, 2023 at 13:00. 14:53 Method Of Arrival: Ambulatory [facility] 14:53 Acuity: RADHA 2 nj1 Triage Assessment: 15:11 Headache History: The patient has had previous headaches and this one is similar to mb9 previous episodes. General: Appears uncomfortable. Pain: Complains of pain in head Also complains of no other associated symptoms. Historical: - Allergies: 15:05 Metoclopramide; mb9 15:05 Morphine; mb9 15:05 Oral steroids; mb9 15:05 Singulair; mb9 15:05 Valium; mb9 15:05 Versed; mb9 - Home Meds: 15:05 amlodipine 10 mg oral tablet 1 tab once [Active]; pregabalin 150 mg Oral capsule 1 cap mb9 3 times per day [Active]; clorazepate dipotassium 7.5 mg Oral tab 1 tab daily [Active]; omeprazole 20 mg oral capsule,delayed release (e.c.) [Active]; aspirin 81 mg Oral capsule [Active]; - PMHx: 15:05 Hypertension; PE; Migraine; mb9 - PSHx: 15:05 back sx; mb9 - Immunization history:: Adult Immunizations up to date. - Infectious Disease History:: Denies. - Social history:: Smoking status: Patient denies any tobacco usage or history of. Screenin:10 [facility] ED Fall Risk Assessment (Adult) History of falling in the last 3 months, mb9 including since admission No falls in past 3 months (0 pts) Confusion or Disorientation No (0 pts) Intoxicated or Sedated No (0 pts) Impaired Gait No (0 pts) Mobility Assist Device Used No (0 pt) Altered Elimination No (0 pt) Score/Fall Risk Level 0 - 2 = Low Risk Oriented to surroundings, Maintained a safe environment, Educated pt \\T\\ family on fall prevention, incl call for assistance when getting out of bed. Abuse screen: Denies threats or abuse. Nutritional screening: No deficits noted. Tuberculosis screening: No symptoms or risk factors identified. Assessment: 15:08 General: Appears uncomfortable, Behavior is anxious, crying. Pain: Complains of pain in mb9 head Pain does not radiate. Pain currently is 10 out of 10 on a pain scale. Quality of pain is described as stabbing, throbbing, Pain began suddenly, Is continuous. Neuro: Richardson Agitation-Sedation Scale (RASS): 0 - Alert and Calm Level of Consciousness is awake, alert, obeys commands, Oriented to person, place, time, situation, Appropriate for age [employer] are weak bilaterally Weakness in bilateral leg(s) Gait is steady, Speech is normal, Facial symmetry appears normal, Pupils are PERRLA, Intact Reports headache. Cardiovascular: Denies chest pain, Heart tones S1 S2 present Patient's skin is warm and dry. Respiratory: Airway is patent Respiratory effort is even, unlabored, Respiratory pattern is regular, symmetrical, Breath sounds are clear bilaterally. GI: Abdomen is round non-distended, Bowel sounds present X 4 quads. Abd is soft and non tender X 4 quads. : No signs and/or symptoms were reported regarding the genitourinary system. EENT: No signs and/or symptoms were reported regarding the EENT system. Derm: Skin is pink, warm \\T\\ dry. Musculoskeletal: Range of motion: intact in all extremities. 16:46 Reassessment: Patient appears in no apparent distress at this time. No changes from mb9 previously documented assessment. Patient and/or family updated on plan of care and expected duration. Pain level reassessed. Patient is alert, oriented x 3, equal unlabored respirations, skin warm/dry/pink. 16:57 Reassessment: Patient is alert, oriented x 3, equal unlabored respirations, skin aa5 warm/dry/pink. Vital Signs: 14:53 BP 143 / 69; Pulse 74; Resp 18; Pulse Ox 99% on R/A; Weight 83.91 kg; Height 5 ft. 6 nj1 in. ; 16:46 BP 144 / 77; Pulse 70; Resp 18; Pulse Ox 100% on R/A; mb9 14:53 Body Mass Index 29.86 (83.91 kg, 167.64 cm) hi1 ED Course: 14:47 Patient arrived in ED. rg4 14:55 Lakia Frank, TRAV is Primary Nurse. mb9 14:56 Zain Hawk PA is PHCP. cp 14:56 Myrna Redd MD is Attending Physician. cp 15:08 Triage completed. [facility] 15:08 Initial lab(s) drawn, by me, sent to lab. Inserted saline lock: 22 gauge in right mb9 forearm, using aseptic technique. Blood collected. 15:10 Placed in gown. Bed in low position. Call light in reach. Side rails up X 1. Provided mb9 Education on: press call light if needing anything. Client placed on continuous cardiac and pulse oximetry monitoring. NIBP monitoring applied. media monitor on. Door closed. Noise minimized. Warm blanket given. Pillow given. 15:11 Arm band placed on. mb9 15:34 CT Head Brain wo Cont In Process Unspecified. EDMS 15:34 CT Head Angio In Process Unspecified. EDMS 15:35 CT Neck Angio In Process Unspecified. EDMS 16:00 XRAY Chest (1 view) In Process Unspecified. EDMS 16:46 No provider procedures requiring assistance completed. mb9 16:56 IV discontinued, intact, bleeding controlled, No redness/swelling at site. Pressure aa5 dressing applied. Administered Medications: 15:55 Drug: Ondansetron IVP 4 mg IVP once; over 2 minutes Route: IVP; Site: right forearm; mb9 16:47 Follow up: Response: No adverse reaction mb9 15:57 Not Given (Patient Refused; states it makes her "hyper"): [id number] mg IVP once mb9 15:57 Drug: Droperidol IVP 1.25 mg IVP once Route: IVP; Site: right forearm; mb9 16:46 Follow up: Response: No adverse reaction mb9 Medication: 15:11 VIS not applicable for this client. 9 Outcome: 16:34 Discharge ordered by . cp 16:56 Discharged to home ambulatory, with family, aa5 16:56 Condition: stable 16:56 Discharge instructions given to patient, Instructed on discharge instructions, follow up and referral plans. medication usage, Demonstrated understanding of instructions, follow-up care, medications, Prescriptions given X 1, 16:57 Patient left the ED. aa5 Signatures: Dispatcher [employer] EDMS Sierra Carballo RN RN aa5 Zain Hawk PA PA cp Garcia, Rubi rg4 Lakia Frank, RN RN mb9 Cathy Alejo RN RN nj1
--- NOTE | 2023-10-21 16:35 | EDPHYS ---
Physician Documentation [facility] Name: Haley Porter Age: 67 yrs Sex: Female : 1955 Arrival Date: 10/21/2023 Time: 14:46 Bed 13 Private MD: ED Physician Myrna Redd HPI: 10/20 15:10 This 67 yrs old Female presents to ER via Ambulatory with complaints of Headache, Worst cp Ever. 15:10 The patient complains of pain to the top of head and forehead. The patient describes cp the headache as aching, constant. 15:10 Onset: The symptoms/episode began/occurred chronic, became worse today at about 1300. cp Associated signs and symptoms: Pertinent positives: nausea, Photophobia weakness, Pertinent negatives: altered mental status, fever, neck stiffness. Severity of symptoms: in the emergency department the pain is actually worse. Headache History: Other the patient reports history of constant, daily headache and today's headache became worse. Historical: - Allergies: 15:05 Metoclopramide; mb9 15:05 Morphine; mb9 15:05 Oral steroids; mb9 15:05 Singulair; mb9 15:05 Valium; mb9 15:05 Versed; mb9 - Home Meds: 15:05 amlodipine 10 mg oral tablet 1 tab once [Active]; pregabalin 150 mg Oral capsule 1 cap mb9 3 times per day [Active]; clorazepate dipotassium 7.5 mg Oral tab 1 tab daily [Active]; omeprazole 20 mg oral capsule,delayed release (e.c.) [Active]; aspirin 81 mg Oral capsule [Active]; - PMHx: 15:05 Hypertension; PE; Migraine; mb9 - PSHx: 15:05 back sx; mb9 - Immunization history:: Adult Immunizations up to date. - Infectious Disease History:: Denies. - Social history:: Smoking status: Patient denies any tobacco usage or history of. ROS: 15:15 Constitutional: Negative for body aches, chills, fever, poor PO intake, cp 15:15 Eyes: Positive for photophobia, Negative for blurry vision, redness, vision loss, cp 15:15 ENT: Negative for drainage from ear(s), ear pain, sore throat, difficulty swallowing, difficulty handling secretions, 15:15 Neck: Negative for pain with movement, pain at rest, stiffness, 15:15 Cardiovascular: Negative for chest pain, edema, palpitations, 15:15 Respiratory: Negative for cough, shortness of breath, wheezing, 15:15 Abdomen/GI: Negative for abdominal pain, vomiting, diarrhea, constipation, 15:15 : Negative for urinary symptoms, 15:15 Neuro: Positive for headache, weakness, Negative for altered mental status, numbness, syncope, 15:15 All other systems are negative, Exam: 15:20 Constitutional: The patient appears in no acute distress, alert, awake, cp non-diaphoretic, non-toxic, well developed, well nourished, uncomfortable, 15:20 Head/Face: Normocephalic, atraumatic. cp 15:20 Eyes: Periorbital structures: appear normal, Pupils: equal, round, and reactive to light and accomodation, Extraocular movements: intact throughout, Conjunctiva: normal, no exudate, no injection, Sclera: no appreciated abnormality, Lids and lashes: appear normal, bilaterally, 15:20 ENT: External ear(s): are unremarkable, Ear canal(s): are normal, clear, TM's: bulging, is not appreciated, bilaterally, dullness, bilaterally, erythema, is not appreciated, bilaterally, Nose: is normal, Mouth: Lips: moist, Oral mucosa: pink and intact, moist, Posterior pharynx: is normal, airway is patent, no erythema, no exudate, 15:20 Neck: C-spine: vertebral tenderness, is not appreciated, crepitus, is not appreciated, ROM/movement: limited range of motion, is not appreciated, Meningeal signs: are not present, nuchal rigidity, is not appreciated, 15:20 Chest/axilla: Inspection: normal, 15:20 Cardiovascular: Rate: normal, Rhythm: regular, Edema: is not appreciated, JVD: is not appreciated, 15:20 Respiratory: the patient does not display signs of respiratory distress, Respirations: normal, no use of accessory muscles, no retractions, labored breathing, is not present, Breath sounds: are clear throughout, no decreased breath sounds, no stridor, no wheezing, 15:20 Abdomen/GI: Inspection: abdomen appears normal, Palpation: abdomen is soft and non-tender, in all quadrants, 15:20 Back: pain, is absent, ROM is normal, 15:20 Neuro: Orientation: to person, place \\T\\ time. Mentation: is normal, Motor: moves all fours, Sensation: no obvious gross deficits, 15:23 ECG was reviewed by the Attending Physician. Vital Signs: 14:53 BP 143 / 69; Pulse 74; Resp 18; Pulse Ox 99% on R/A; Weight 83.91 kg; Height 5 ft. 6 nj1 in. ; 16:46 BP 144 / 77; Pulse 70; Resp 18; Pulse Ox 100% on R/A; mb9 14:53 Body Mass Index 29.86 (83.91 kg, 167.64 cm) nj1 MDM: 14:56 Patient medically screened. 16:32 Data reviewed: vital signs, nurses notes, lab test result(s), EKG, radiologic studies, cp CT scan. Response to treatment: the patient's symptoms have markedly improved after treatment. ED course: VSS. Patient reports headache markedly improved and requesting discharge to home. 10/20 15:05 Order name: Basic Metabolic Panel; Complete Time: 16:09 10/20 16:09 Interpretation: Normal except: GLUC 181; GFR 80. 10/20 15:05 Order name: CBC with Diff; Complete Time: 16:09 10/20 16:10 Interpretation: Normal except: HGB 15.1; HCT 46.1. 10/20 15:05 Order name: LFT's; Complete Time: 16:09 10/20 16:10 Interpretation: Normal except: AST < 10; ALK 128; IBILI, CALC 0.1; GLOB 3.6. 10/20 15:05 Order name: Magnesium; Complete Time: 16:09 10/20 15:05 Order name: PT-INR; Complete Time: 16:09 10/20 16:11 Interpretation: Reviewed. 10/20 15:05 Order name: Troponin HS; Complete Time: 16:09 10/20 16:10 Interpretation: Reviewed. 10/20 15:43 Order name: CREATININE WHOLE BLOOD; Complete Time: 16:09 EDMS 10/20 15:05 Order name: XRAY Chest (1 view); Complete Time: 16:09 10/20 16:11 Interpretation: Report review. 10/20 15:07 Order name: CT Head Brain wo Cont; Complete Time: 16:09 cp 10/20 16:11 Interpretation: Report reviewed. 10/20 15:07 Order name: CT Head Angio; Complete Time: 16:09 cp 10/20 16:12 Interpretation: Report reviewed. 10/20 15:07 Order name: CT Neck Angio; Complete Time: 16:09 cp 10/20 16:12 Interpretation: Report reviewed. 10/20 15:05 Order name: Cardiac monitoring; Complete Time: 15:05 10/20 15:05 Order name: EKG - Nurse/Tech; Complete Time: 15:21 cp 10/20 15:05 Order name: IV Saline Lock; Complete Time: 15:05 10/20 15:05 Order name: Labs collected and sent; Complete Time: 15:05 10/20 15:05 Order name: O2 Per Protocol; Complete Time: 15:05 cp 10/20 15:05 Order name: O2 Sat Monitoring; Complete Time: 15:05 EC:23 Rate is 62 beats/min. Rhythm is regular. OR interval is normal. QRS interval is normal. cp QT interval is normal. T waves are Inverted in lead aVR. Interpreted by me. Reviewed by me. Administered Medications: 15:55 Drug: Ondansetron IVP 4 mg IVP once; over 2 minutes Route: IVP; Site: right forearm; mb9 16:47 Follow up: Response: No adverse reaction mb9 15:57 Not Given (Patient Refused; states it makes her "hyper"): [id number] mg IVP once mb9 15:57 Drug: Droperidol IVP 1.25 mg IVP once Route: IVP; Site: right forearm; mb9 16:46 Follow up: Response: No adverse reaction mb9 Disposition Summary: 10/21/23 16:34 Discharge Ordered Notes: Location: Home cp Problem: chronic cp Symptoms: have improved cp Condition: Stable cp Diagnosis - Headache cp Followup: cp - With: Private Physician - When: 2 - 3 days - Reason: Recheck today's complaints Discharge Instructions: - Discharge Summary Sheet cp - Migraine Headache cp Forms: - Medication Reconciliation Form cp - Antibiotic Education cp - Prescription Opioid Use cp - Patient Portal Instructions cp - Leadership Thank You Letter cp Prescriptions: - Zofran 4 mg Oral Tablet - take 1 tablet ORAL route every 12 hours As needed; 20 tablet; Refills: 0, cp Product Selection Permitted Signatures: Dispatcher [employer] EDMS Zain Hawk PA PA cp Breneman, Mary Beth RN RN mb9 Corrections: (The following items were deleted from the chart) 15:05 15:05 BASIC METABOLIC PANEL+C.LAB.BRZ ordered. EDMS EDMS 15:05 15:05 CBC+H.LAB.BRZ ordered. EDMS EDMS 15:05 15:05 HEPATIC FUNCTION+C.LAB.BRZ ordered. EDMS EDMS 15:05 15:05 MAGNESIUM+C.LAB.BRZ ordered. EDMS EDMS 15:05 15:05 PROTIME (+INR)+COAG.LAB.BRZ ordered. EDMS EDMS 15:05 15:05 Troponin High Sensitivity+C.LAB.BRZ ordered. EDMS EDMS 15:05 15:05 Urinalysis W/Microscopic+U.LAB.BRZ ordered. EDMS EDMS 15:05 15:05 Chest Single View+RAD.RAD.BRZ ordered. EDMS EDMS 10/21 15:55 10/20 15:10 Headache History: The patient has had previous headaches cp cp
[2023-10-21 17:23] VITALS: BP 144/77; O2SAT 100
--- NOTE | 2023-10-22 12:34 | EKG ---
Test Date: 2023-10-21 Test Time: 15:18:48 Pricing Associate: TERRANCE MEASUREMENT RESULTS: Intervals: Rate: 62 SC: 170 QRSD: 84 QT: 432 QTc: 438 [place]: P: 69 SC: 170 QRS: 62 T: 58 INTERPRETIVE STATEMENTS: Normal sinus rhythm Normal ECG Compared to ECG 02/21/2023 13:29:54 No significant changes Electronically Signed On 10-22-23 12:31:57 CDT by Jevon Tom
== END 2023-10-21 16:57 | disposition home or self-care (01) ==
LOC: ER 14:46
DX: R51.9 Headache, unspecified (principal); R53.1 Weakness; I10 Essential (primary) hypertension
CPT/HCPCS: 93005; 85025; 80048; 36415; 83735; 85610; 82565; 80076; 84484; 70450; 70496; 70498; 71045; 96375; 96374; 99285; Q9967; J1200; J2405